=== PATIENT | female | born 1945 | race Caucasian/White ===

== ENCOUNTER 2019-07-08 19:01 | Inpatient (IN) | payer MEDICARE, OTHER ==
[~2019-07-08] VITALS: Ht 167.7 cm; Wt 55.6 kg
[2019-07-08] VITALS (9 sets, daily range): BP systolic 87–97; BP diastolic 34–45
[~2019-07-08 19:01] MED LIST: ATRV10T PO; CARV40CP PO; EST45C VG; ESTR1PAT28 TD; HYDR-707 PO; LSNP20T PO; MTF500T PO; OMEP40CA36 PO; SCR1T1 PO; TRAM50TA2 PO
[2019-07-08] MEDS ORDERED: NS IV 1000 ML 1,000 ML IV PRN (19:10)
--- NOTE | 2019-07-08 19:15 | ED General ---
General Stated Complaint: WEAKNESS Source of Information: Patient, Family, [facility] Records History of Present Illness Date Seen by Provider: Jul 08, 2019 Time Seen by Provider: 19:05 Initial Comments PT ARRIVES VIA EMS FROM [facility] C/O GENERALIZED WEAKNESS/LETHARGY PT REPORTEDLY HAD TEMP OF 102 JUST PRIOR TO ARRIVAL--NOTHING GIVEN FOR FEVER. TEMP WAS REPORTEDLY 99.8 THIS AM BP WAS LOW JUST PRIOR TO ARRIVAL--98/46 ADN 102/50. WAS 112 SYSTOLIC BY EMS, AND IS 104 SYSTOLIC ON ARRIVAL HERE. C/O LOWER BACK PAIN C/O MUCH PAIN ON URINATION [place] [facility] WAS CONTACTED PRIOR TO ARRIVAL AND WAS ADVISED TO SEND TO ER, PT INFORMATION ALSO OBTAINED FROM HER--SHE HAS NOT SEEN PT YET, PT IS A NEW ADMIT TO [facility] AND TO DR. SHAFER OUTPT UA WAS DONE TODAY AND PT HAD 4+ LEUKOCYTES DAUGHTER ARRIVES AND GIVES ADDITIONAL INFORMATION: PT HAD BEEN LIVING AT HOME WITH , AND HAD BEEN IN [facility] UNTIL: 05/30/19--PT ADMITTED TO [facility] FOR THESE SAME COMPLAINTS OF FEVER AND GENERALIZED WEAKNESS, AND WAS FOUND TO HAVE UTI AND TO BE VERY ANEMIC, WORK-UP'S THERE WERE ESSENTIALLY NEGATIVE, AND PT WAS EVENTUALLY TRANSFERRED TO IN [place] FOR FURTHER EVALUATION AND TREATMENT. PT WAS THEN ADMITTED TO [facility] FOR FURTHER RESIDENTIAL, ON DISMISSAL FROM PT'S CONDITION DETERIORATED WHILE AT [facility] AND PT WAS THEN TRANSFERR ED TO [facility] IN [place]. PT WAS DISMISSED FROM [facility] ON Friday07/07/19 AND ADMITTED TO [facility] DAUGHTER STATES THAT PT HAD 5 BLOOD TRANSFUSIONS IN THE LAST MONTH, WITH HER MOST RECENT TRANSFUSION BEING Friday07/03/19 AT [facility] FOR HGB OF 7, PER DAUGHTER. HGB WAS DOWN TO 6.8 AT ONE TIME, PER DAUGHTER. PT HAS HAD 2 BONE MARROW BIOPSIES, WHICH WERE NORMAL, ACCORDING TO DAUGHTER SHE HAD EGD'S AND COLONOSCOPIES WHICH WERE NORMAL, PER DAUGHTER. DAUGHTER STATES THAT PT HAS CONTINUED TO HAVE INTERMITTENT FEVER THROUGHOUT ALL THESE HOSPITALIZATIONS WELL. PT IS ON ELIQUIS AND ASPIRIN FOR ATRIAL FIBRILLATION. PT HAS ONGOING CONSTIPATION AND ONLY HAS A BM EVERY 3-4 DAYS, WHICH WAS WHEN HER LAST BM WAS. NO BLACK/BLOODY/TARRY STOOLS PT DENIES ANY ABDOMINAL PAIN C/O MILD NAUSEA, NO VOMITING DR. SHAFER IS ASSIGNED AT [facility], BUT WAS NOT AN ESTABLISHED PT OF HIS PRIOR TO THE [facility] ADMIT. Allergies and Home Medications Allergies Coded Allergies: Cephalexin Monohydrate (Verified Allergy, Unknown, 07/08/19) Penicillins (Verified Allergy, Unknown, 07/08/19) iodine (Verified Allergy, Unknown, 07/08/19) prednisone (Verified Allergy, Unknown, 07/08/19) venlafaxine HCl (Verified Allergy, Unknown, 07/08/19) Home Medications Atorvastatin Calcium 10 Mg Tablet, 1 EACH PO DAILY, (Reported) Carvedilol Phosphate 40 Mg Cpmp.24hr, 1 EACH PO DAILY, (Reported) Estrogens,Conjugated 45 Gm Tube, 1 GM VG UD, (Reported) Ipratropium/Albuterol Sulfate 3 Ml Ampul.neb, 3 ML IH Q6H PRN for SHORTNESS OF BREATH, (Reported) Patient Home Medication List Home Medication List Reviewed: Yes Review of Systems Review of Systems Constitutional: see HPI, fever, malaise, weakness Respiratory: no symptoms reported; No cough, No short of breath Cardiovascular: no symptoms reported; No chest pain Gastrointestinal: see HPI; No abdominal pain; constipation; No diarrhea, No hematemesis; loss of appetite; No melena; nausea; No vomiting Genitourinary: see HPI, dysuria, other (HAS BEEN TOLD THAT HER BLADDER HAS PROLAPSED AND HAS HAD TO HAVE INTERMITTENT CATHETERS IN THE LAST MONTH. ) Musculoskeletal: see HPI, back pain Psychiatric/Neurological: See HPI (GENERALIZED WEAKNESS); Denies Headache Hematologic/Lymphatic: See HPI, Anemia Past Lvfhojs-Nbytjb-Agblqy Hx Patient Social History Alcohol Use: Denies Use Recreational Drug Use: No Smoking Status: Never a Smoker Past Medical History Surgeries: Yes (EGD'S/COLONOSCOPIES; HIATAL HERNIA REPAIR; BLADDER SURGERY WITH VAGINAL MESH; QUESTIONABLE SURGERY ON MITRAL VALVE) Abdominal, Appendectomy, Bladder Surgery, Cardiac, Gallbladder, Hysterectomy Respiratory: Yes COPD Cardiac: Yes (MITRAL VALVE PROLAPSE--QUESTIONABLE SURGERY ON MITRAL VALVE ( PT AND FAMILY DO NOT KNOW WHAT OR IF SHE HAS ACTUALLY HAD ANY SURGERY ON HER HEART) ) Atrial Fibrillation, Hypertension, Valvular Heart Disease Neurological: No Genitourinary: Yes (BLADDER PROLAPSE--S/P BLADDER SURGERIES WITH VAGINAL MESH) Bladder Infection Gastrointestinal: Yes Gastroesophageal Reflux, Chronic Constipation, Hiatal Hernia Musculoskeletal: No Endocrine: Yes Diabetes, Non-Insulin dep HEENT: No Cancer: No Psychosocial: No Integumentary: No Blood Disorders: Yes (ANEMIA--UNKNOWN CAUSE) Adverse Reaction/Blood Tranf: No YES--5 TRANSFUSIONS IN JUNE 2019 Physical Exam Vital Signs Vital Signs - First Documented Capillary Refill : Height, Weight, BMI Height: '" Weight: lbs. oz. kg; BMI Method:Estimated General Appearance: Thin, Other (LETHARGIC) HEENT: PERRL/EOMI, Normal ENT Inspection, Pharynx Normal, Pale Conjunctivae (L), Pale Conjunctivae (R) Neck: Full Range of Motion, Normal Inspection, Non Tender, Supple Respiratory: Normal Breath Sounds, No Accessory Muscle Use, No Respiratory Distress Cardiovascular: Regular Rate, Rhythm, No Edema, No Gallop, No JVD, Normal Peripheral Pulses, Systolic Murmur (2/6) Gastrointestinal: Soft, Tenderness (MILD SUPRAPUBIC ) Rectal: Other (NO STOOL IN RECTUM, NO GROSS BLOOD IN RECTUM) Back: CVA Tenderness (L), CVA Tenderness (R), Other (DIFFUSE LOWER BACK TENDERNESS) Extremity: Normal Capillary Refill, Normal Range of Motion, Non Tender, No Calf Tenderness, No Pedal Edema Neurologic/Psychiatric: Alert, Oriented x3, No Motor/Sensory Deficits, general counselor II- XII Norm as Tested, Other (LETHARGIC) Skin: Warm/Dry, Pallor; No Rash Focused Exam Lactate Level 07/08/19 19:10: Lactic Acid Level 2.66*H 07/08/19 20:40: Lactic Acid Level 2.64*H Lactic Acid Level Progress/Results/Core Measures Suspected Sepsis SIRS Temperature: Pulse: Respiratory Rate: Laboratory Tests 07/08/19 19:10: White Blood Count 6.9 07/09/19 02:35: White Blood Count 7.2 Blood Pressure / Mean: 07/08/19 19:10: Lactic Acid Level 2.66*H 07/08/19 20:40: Lactic Acid Level 2.64*H Laboratory Tests 07/08/19 19:10: Creatinine 0.80, INR Comment 1.8H, Platelet Count 209, Total Bilirubin 1.0 07/09/19 02:35: Creatinine 0.67, Platelet Count 196, Total Bilirubin 1.2H Results/Orders Lab Results Laboratory Tests Test 07/08/19 19:10 07/08/19 19:18 07/08/19 20:40 07/09/19 02:35 Range/Units White Blood Count 6.9 7.2 4.3-11.0 10^3/uL Red Blood Count 2.65 L 3.03 L 4.35-5.85 10^6/uL Hemoglobin 7.1 L 8.3 L 11.5-16.0 G/DL Hematocrit 23 L 26 L 35-52 % Mean Corpuscular Volume 86 87 80-99 FL Mean Corpuscular Hemoglobin 27 27 25-34 PG Mean Corpuscular Hemoglobin Concent 31 L 32 32-36 G/DL Red Cell Distribution Width 17.7 H 17.1 H 10.0-14.5 % Platelet Count 209 196 130-400 10^3/uL Mean Platelet Volume 10.1 9.8 7.4-10.4 FL Neutrophils (%) (Auto) 74 80 H 42-75 % Lymphocytes (%) (Auto) 8 L 8 L 12-44 % Monocytes (%) (Auto) 18 H 12 0-12 % Eosinophils (%) (Auto) 0 0 0-10 % Basophils (%) (Auto) 0 0 0-10 % Neutrophils # (Auto) 5.1 5.8 1.8-7.8 X 10^3 Lymphocytes # (Auto) 0.5 L 0.6 L 1.0-4.0 X 10^3 Monocytes # (Auto) 1.3 H 0.9 0.0-1.0 X 10^3 Eosinophils # (Auto) 0.0 0.0 0.0-0.3 10^3/uL Basophils # (Auto) 0.0 0.0 0.0-0.1 10^3/uL Neutrophils % (Manual) 64 % Lymphocytes % (Manual) 6 % Monocytes % (Manual) 14 % Band Neutrophils 16 % Toxic Granulation 1+ Blood Morphology Comment NORMAL Prothrombin Time 22.1 H 12.2-14.7 SEC INR Comment 1.8 H 0.8-1.4 Activated Partial Thromboplast Time 56 H 24-35 SEC Sodium Level 132 L 138 135-145 MMOL/L Potassium Level 3.7 3.4 L 3.6-5.0 MMOL/L Chloride Level 97 L 103 98-107 MMOL/L Carbon Dioxide Level 26 26 21-32 MMOL/L Anion Gap 9 9 5-14 MMOL/L Blood Urea Nitrogen 19 H 15 7-18 MG/DL Creatinine 0.80 0.67 0.60-1.30 MG/DL Estimat Glomerular Filtration Rate > 60 > 60 BUN/Creatinine Ratio 24 22 Glucose Level 164 H 109 H 70-105 MG/DL Glucometer 183 H 70-110 MG/DL Lactic Acid Level 2.66 *H 2.64 *H 0.50-2.00 MMOL/L Calcium Level 7.7 L 7.7 L 8.5-10.1 MG/DL Corrected Calcium 9.1 9.1 8.5-10.1 MG/DL Magnesium Level 1.5 L 1.8 1.6-2.4 MG/DL Total Bilirubin 1.0 1.2 H 0.1-1.0 MG/DL Aspartate Amino Transf (AST/SGOT) 30 28 5-34 U/L Alanine Aminotransferase (ALT/SGPT) 13 10 0-55 U/L Alkaline Phosphatase 92 91 40-136 U/L Ammonia 34 H 11-32 UMOL/L Total Creatine Kinase 34 29-168 U/L Creatine Kinase MB 0.2 <6.6 NG/ML Myoglobin 48.4 10.0-92.0 NG/ML Troponin I < 0.028 <0.028 NG/ML B-Type Natriuretic Peptide 42.9 <100.0 PG/ML Total Protein 5.2 L 5.1 L 6.4-8.2 GM/DL Albumin 2.2 L 2.2 L 3.2-4.5 GM/DL Amylase Level 25 25-125 U/L Lipase 16 8-78 U/L TSH [place] Testing 1.00 0.35-4.94 UIU/ML Urine Color YELLOW Urine Clarity CLEAR Urine pH >=9.0 5-9 Urine Specific [place] <=1.005 1.016-1.022 Urine Protein 1+ H NEGATIVE Urine Glucose (UA) NEGATIVE NEGATIVE Urine Ketones NEGATIVE NEGATIVE Urine Nitrite POSITIVE NEGATIVE Urine Bilirubin NEGATIVE NEGATIVE Urine Urobilinogen 1.0 < = 1.0 MG/DL Urine Leukocyte Esterase 1+ H NEGATIVE Urine RBC (Auto) 1+ H NEGATIVE Urine RBC NONE /HPF Urine WBC 25-50 H /HPF Urine Crystals PRESENT H /LPF Urine Amorphous Sediment MOD HAJA PHOSPHATE H /LPF Urine Bacteria LARGE H /HPF Urine Casts NONE /LPF Urine Mucus NEGATIVE /LPF Urine Culture Indicated YES Absolute Reticulocyte Count 81 24-90 10e9/L Percent Reticulocyte Count 2.68 H 0.50-2.40 % Micro Results Microbiology 07/08/19 Influenza Types A,B Antigen ([facility]) - Final, Complete My Orders Orders - ZAKI RUSH DO Accucheck Stat ONCE (07/08/19 19:10) Ed Iv/Invasive Line Start (07/08/19 19:10) Ekg Tracing (07/08/19 19:10) Catheter(Urinary) Insert & Ass 03,15 (07/08/19 19:10) O2 (07/08/19 19:10) Monitor-Rhythm Ecg Trace Only (07/08/19 19:10) Chest 1 View, Ap/Pa Only (07/08/19 19:10) Ammonia (07/08/19 19:10) Amylase (07/08/19 19:10) BNP (07/08/19 19:10) Cbc With Automated Diff (07/08/19 19:10) Comprehensive Metabolic Panel (07/08/19 19:10) Creatine Kinase (07/08/19 19:10) Creatine Kinase Mb (07/08/19 19:10) Lactic Acid Analyzer (07/08/19 19:10) Lipase (07/08/19 19:10) Magnesium (07/08/19 19:10) Protime With Inr (07/08/19 19:10) Partial Thromboplastin Time (07/08/19 19:10) Thyroid Analyzer (07/08/19 19:10) Ua Culture If Indicated (07/08/19 19:10) Blood Culture (07/08/19 19:10) Influenza A And B Antigens (07/08/19 19:10) Myoglobin Serum (07/08/19 19:10) Troponin I (07/08/19 19:10) Ed Iv/Invasive Line Start (07/08/19 19:10) Ns Iv 1000 Ml (Sodium Chloride 0.9%) (07/08/19 19:10) Manual Differential (07/08/19 19:10) Urine Culture (07/08/19 19:18) Levofloxacin 500 Mg/100 Ml Iv (Levaquin (07/08/19 20:00) Magnesium 1 Gm/100 Ml Ivpb (Magnesium Fitzpatrick (07/08/19 20:00) Red Cells Leukocytes Reduced (07/08/19 20:20) Type And Screen (07/08/19 20:20) Ns Iv 1000 Ml (Sodium Chloride 0.9%) (07/08/19 20:38) Medications Given in ED Current Medications Medications Dose Ordered Sig/Dino Route Start Time Stop Time Status Last Admin Dose Admin Levofloxacin/ Dextrose 100 ml @ 100 mls/hr ONCE ONCE IV 07/08/19 20:00 07/08/19 20:59 DC 07/08/19 20:10 100 MLS/HR Magnesium Sulfate/ Dextrose 100 ml @ 100 mls/hr ONCE ONCE IV 07/08/19 20:00 07/08/19 20:59 DC 07/08/19 20:10 100 MLS/HR Sodium Chloride 1,000 ml @ 0 mls/hr Q0M PRN IV 07/08/19 19:10 07/08/19 21:38 DC 07/08/19 19:30 0 MLS/HR Vital Signs/I&O 07/08/19 07/08/19 07/08/19 07/08/19 19:01 19:01 19:46 21:21 Temp 36.7 36.7 36.8 Pulse 98 90 86 Resp 22 24 24 B/P (MAP) 104/40 (61) 97/37 101/36 (57) Pulse Ox 96 96 96 96 O2 Delivery Room Air Room Air Room Air Room Air 07/08/19 07/08/19 07/08/19 07/08/19 21:38 21:45 22:00 22:01 Temp 36.4 36.4 Pulse 82 80 78 77 Resp 23 21 21 B/P (MAP) 97/45 (62) 95/43 (60) 95/43 Pulse Ox 96 96 96 O2 Delivery Room Air Room Air Room Air 07/08/19 07/08/19 07/08/19 07/08/19 22:14 22:15 22:15 22:16 Temp 36.4 36.6 Pulse 77 79 80 Resp 21 16 18 B/P (MAP) 97/45 95/41 (59) 95/41 Pulse Ox 95 96 96 O2 Delivery Room Air Room Air Room Air Room Air 07/08/19 07/08/19 07/08/19 07/09/19 22:30 23:00 23:30 00:00 Pulse 78 77 75 73 Resp 20 20 19 19 B/P (MAP) 87/34 (51) 97/40 (59) 96/41 (59) 114/44 (67) Pulse Ox 95 94 98 98 O2 Delivery Room Air Room Air Room Air Room Air 07/09/19 07/09/19 07/09/19 07/09/19 00:00 00:00 00:00 01:00 Temp 36.6 36.2 Pulse 74 O2 Delivery Room Air 07/09/19 07/09/19 07/09/19 07/09/19 01:00 01:30 02:00 02:39 Temp 36.0 36.6 Pulse 72 81 77 81 Resp 19 13 20 20 B/P (MAP) 107/41 (63) 120/44 138/54 (82) 132/70 Pulse Ox 96 95 96 O2 Delivery Room Air Room Air Room Air Room Air 07/09/19 07/09/19 07/09/19 07/09/19 02:54 03:00 04:00 04:00 Temp 36.8 37.5 Pulse 88 85 87 Resp 20 21 19 B/P (MAP) 148/58 154/56 (88) 159/67 (97) Pulse Ox 92 92 92 O2 Delivery Room Air Room Air Room Air 07/09/19 07/09/19 07/09/19 07/09/19 04:00 05:00 05:49 06:00 Temp 37.5 Pulse 93 100 101 Resp 23 20 13 B/P (MAP) 142/46 (78) 138/47 146/46 (79) Pulse Ox 93 93 O2 Delivery Room Air Room Air Room Air Room Air 07/09/19 00:00 Intake Total 1000 ml Balance 1000 ml Capillary Refill : Progress Note : Progress Note NO DETERIORATION IN PT'S CONDITION DURING ER STAY ECG Initial ECG Impression Date: Jul 08, 2019 Initial ECG Impression Time: 19:04 Initial ECG Rate: 96 Initial ECG Rhythm: Normal Sinus Diagnostic Imaging Comments CXR--RLL INFILTRATE, PER RADIOLOGIST REPORT Reviewed: Reviewed by Me Departure Communication (Admissions) 2029--SPOKE WITH DR. FLOYD, HOSPITALIST. ACCEPTS PT FOR ADMIT. WILL CONSULT CARDIOLOGY AND HEM-ONC IN AM Impression Primary Impression: Severe anemia Additional Impressions: UTI (urinary tract infection) Generalized weakness Electrolyte imbalance NIDDM CHRONIC ATRIAL FIBRILLATION ON ELIQUIS AND ASPIRIN Lactic acidosis Hypomagnesemia Hypocalcemia RLL pneumonia Disposition: 09 ADMITTED INPATIENT Condition: Stable Admissions Decision to Admit Reason: Admit from ER (General) Decision to Admit/Date: Jul 08, 2019 Time/Decision to Admit Time: 20:30 Departure-Patient Inst. Referrals: NO,LOCAL PHYSICIAN (PCP/Family) Primary Care Physician ZAKI RUSH DO Jul 08, 2019 19:15 POS
[2019-07-08 19:26] LABS: BILIRUBIN,URINE NEGATIVE (NEGATIVE); CLARITY,URINE CLEAR; COLOR,URINE YELLOW; GLUCOSE, URINE (UA) NEGATIVE (NEGATIVE); KETONES,URINE NEGATIVE (NEGATIVE); LEUKOCYTE ESTERASE ,URINE 1+ (NEGATIVE); NITRITE,URINE POSITIVE (NEGATIVE); PH,URINE >=9.0 (5-9); PROTEIN,URINE 1+ (NEGATIVE)
[2019-07-08 19:28] LABS: BASOPHILS % (AUTO) 0 % (0-10); EOSINOPHILS % (AUTO) 0 % (0-10); HEMATOCRIT 23 % (35-52); HEMOGLOBIN 7.1 G/DL (11.5-16.0); LYMPHOCYTES # (AUTO) 0.5 X 10^3 (1.0-4.0); LYMPHOCYTES % (AUTO) 8 % (12-44); MEAN CORPUSCULAR HEMOGLOBIN 27 PG (25-34); MEAN CORPUSCULAR HGB CONC 31 G/DL (32-36); MEAN CORPUSCULAR VOLUME 86 FL (80-99); MEAN PLATELET VOLUME 10.1 FL (7.4-10.4); MONOCYTES # (AUTO) 1.3 X 10^3 (0.0-1.0); MONOCYTES % (AUTO) 18 % (0-12); NEUTROPHILS # (AUTO) 5.1 X 10^3 (1.8-7.8); NEUTROPHILS % (AUTO) 74 % (42-75); PLATELET COUNT 209 10^3/uL (130-400); RED CELL DISTRIBUTION WIDTH 17.7 % (10.0-14.5); WHITE BLOOD COUNT 6.9 10^3/uL (4.3-11.0)
[2019-07-08 19:42] LABS: INR 1.8 (0.8-1.4); PROTHROMBIN TIME PATIENT 22.1 SEC (12.2-14.7)
[2019-07-08 19:47] LABS: AMORPHOUS SEDIMENT,UR MOD AMOR PHOSPHATE /LPF; BACTERIA,URINE LARGE /HPF; WBC,URINE 25-50 /HPF
[2019-07-08 19:53] LABS: ALANINE AMINOTRANSFERASE 13 U/L (0-55); ALBUMIN 2.2 GM/DL (3.2-4.5); ALKALINE PHOSPHATASE 92 U/L (40-136); AMMONIA 34 UMOL/L (11-32); AMYLASE 25 U/L (25-125); BUN/CREATININE RATIO 24; CALCIUM 7.7 MG/DL (8.5-10.1); CARBON DIOXIDE 26 MMOL/L (21-32); CHLORIDE 97 MMOL/L (98-107); CREATINE KINASE 34 U/L (29-168); GFR ESTIMATED > 60; GLUCOSE 164 MG/DL (70-105); LIPASE 16 U/L (8-78); MAGNESIUM 1.5 MG/DL (1.6-2.4); POTASSIUM 3.7 MMOL/L (3.6-5.0); SODIUM 132 MMOL/L (135-145); TOTAL PROTEIN 5.2 GM/DL (6.4-8.2)
--- NOTE | 2019-07-08 19:57 | Diagnostic Imaging Report ---
INDICATION: Generalized weakness, lethargy, hypertension. COMPARISON STUDY: Chest from 2012. FINDINGS: Frontal view of the chest demonstrates the lungs to be clear. There is mild infiltrate in the lateral right lung base. Heart size and vascularity are normal. There are no pleural effusions. Postoperative changes are present in the cervical spine. IMPRESSION: There are mild infiltrates in the right lateral lung base. Dictated by: Dictated on workstation # [id number]
[2019-07-08] MEDS ORDERED: METF500T8 (20:00)
[2019-07-08] MEDS ORDERED: CALC1TAB94 (20:00)
[2019-07-08] MEDS ORDERED: FERR325T18 PO (20:00)
[2019-07-08] MEDS ORDERED: FLEC100T PO (20:00)
[2019-07-08] MEDS ORDERED: LEVOFLOXACIN 500 MG/100 ML IV 100 ML IV ONE (20:00)
[2019-07-08] MEDS ORDERED: IPRA3AMP31 NEB (20:00)
[2019-07-08] MEDS ORDERED: MAGNESIUM 1 GM/100 ML IVPB 100 ML IV ONE (20:00)
[2019-07-08] MEDS ORDERED: SENN-36 (20:00)
[2019-07-08] MEDS ORDERED: APIX5TAB PO (20:00)
[2019-07-08] MEDS ORDERED: PANT40TA3 PO (20:00)
[2019-07-08] MEDS ORDERED: FURO20TA4 PO (20:00)
[2019-07-08] MEDS ORDERED: ASPI-586 PO (20:00)
[2019-07-08 20:04] LABS: BAND NEUTROPHILS 16 %; LYMPHOCYTES % (MANUAL) 6 %; NEUTROPHILS % (MANUAL) 64 %
[2019-07-08 20:05] LABS: MONOCYTES % (MANUAL) 14 %; RBC MORPH NORMAL; TOXIC GRANULATION/VACUOLAZATIO 1+
[2019-07-08 20:13] LABS: CREATINE KINASE MB 0.2 NG/ML (<6.6)
[2019-07-08] MEDS ORDERED: NS IV 1000 ML 1,000 ML IV SCH (20:38)
[2019-07-08] MEDS ORDERED: ONDANSETRON 4 MG/2 ML (SDV) Z0FRAN IV PRN (21:45)
[2019-07-08] MEDS: NS IV 1000 ML 1,000 ML IV SCH (22:00)
[2019-07-09] VITALS (15 sets, daily range): BP systolic 107–159; BP diastolic 41–76
[2019-07-09] MEDS: PANTOPRAZOLE 40 MG (PROTONIX) VIAL IV SCH ×2 (01:49→09:10)
[2019-07-09 03:09] LABS: ABSOLUTE RETIC # 81 10e9/L (24-90); BASOPHILS % (AUTO) 0 % (0-10); EOSINOPHILS % (AUTO) 0 % (0-10); HEMATOCRIT 26 % (35-52); HEMOGLOBIN 8.3 G/DL (11.5-16.0); LYMPHOCYTES # (AUTO) 0.6 X 10^3 (1.0-4.0); LYMPHOCYTES % (AUTO) 8 % (12-44); MEAN CORPUSCULAR HEMOGLOBIN 27 PG (25-34); MEAN CORPUSCULAR HGB CONC 32 G/DL (32-36); MEAN CORPUSCULAR VOLUME 87 FL (80-99); MEAN PLATELET VOLUME 9.8 FL (7.4-10.4); MONOCYTES # (AUTO) 0.9 X 10^3 (0.0-1.0); MONOCYTES % (AUTO) 12 % (0-12); NEUTROPHILS # (AUTO) 5.8 X 10^3 (1.8-7.8); NEUTROPHILS % (AUTO) 80 % (42-75); PLATELET COUNT 196 10^3/uL (130-400); RED CELL DISTRIBUTION WIDTH 17.1 % (10.0-14.5); RETICULOCYTE % 2.68 % (0.50-2.40); WHITE BLOOD COUNT 7.2 10^3/uL (4.3-11.0)
[2019-07-09 03:30] LABS: ALANINE AMINOTRANSFERASE 10 U/L (0-55); ALBUMIN 2.2 GM/DL (3.2-4.5); ALKALINE PHOSPHATASE 91 U/L (40-136); BILIRUBIN,TOTAL 1.2 MG/DL (0.1-1.0); BUN/CREATININE RATIO 22; CALCIUM 7.7 MG/DL (8.5-10.1); CARBON DIOXIDE 26 MMOL/L (21-32); CHLORIDE 103 MMOL/L (98-107); CREATININE SERUM 0.67 MG/DL (0.60-1.30); GFR ESTIMATED > 60; GLUCOSE 109 MG/DL (70-105); MAGNESIUM 1.8 MG/DL (1.6-2.4); POTASSIUM 3.4 MMOL/L (3.6-5.0); SODIUM 138 MMOL/L (135-145); TOTAL PROTEIN 5.1 GM/DL (6.4-8.2)
[2019-07-09] MEDS: inSUlin ASPART (NovoLOG) 1 UNIT/0.01 ML (CHARGE PER UNIT) SC SCH ×4 (05:56→20:56)
[2019-07-09] MEDS: NS IV 1000 ML 1,000 ML IV SCH ×3 (07:28→21:06)
--- NOTE | 2019-07-09 08:00 | History & Physical-Hospitalist ---
History of Present Illness HPI/Chief Complaint Pt is 74yoCF with an extensive past medical history with multiple recent hospitalizations at different hospitals who presented to the ER due to lethargy, fever, and hypotension. When asked what brought her to the hospital she states "everything shut down 3 months ago" and then asked me to review her records. Unfortunately none of her previous hospitalizations have been here but she is agreeable to send records requests from these other hospitals. She did states she has had severe anemia with no cause identified and required multiple transfusions she also states she had burning with urination starting yesterday. Otherwise she was not able to provide much history. Review of ER notes shows she was in good health until May of this year when she was admitted to [facility] in [place] for sepsis and anemia. She was transferred from there to [facility] and reported had negative bone marrow biopsies x2 and EGD/colonoscopies. She was then transferred to [facility] in [place] and had more workup that was negative. S he was discharged from there to [facility] on 07/07 and developed fevers and dysuria yesterday prompting evaluation in the ER last night. She was found to have a recurrent UTI, lactic acidosis but was not febrile here. She was admitted to cardiac stepdown for further evaluation. Source: patient Date Seen 07/09/19 Time Seen by a Provider: 07:53 Attending Physician Aakash Santos MD PCP No,Local Physician Referring Physician Date of Admission Jul 08, 2019 at 20:30 Home Medications & Allergies Home Medications Reviewed patient Home Medication Reconciliation performed by pharmacy medication reconciliations outer diameter technician and/or nursing. Patients Allergies have been reviewed. Allergies Allergies Coded Allergies Cephalexin Monohydrate (Verified Allergy, Unknown, 07/08/19) Penicillins (Verified Allergy, Unknown, 07/08/19) iodine (Verified Allergy, Unknown, 07/08/19) prednisone (Verified Allergy, Unknown, 07/08/19) venlafaxine HCl (Verified Allergy, Unknown, 07/08/19) Past Eyvfiwo-Esduez-Zdvjwf Hx Past Med/Social Hx: Reviewed Nursing Past Med/Soc Hx Patient Social History Employed/Student: retired Alcohol Use: Denies Use Recreational Drug Use: No Smoking Status: Never a Smoker 2nd Hand Smoke Exposure: No Recent Foreign Travel: No Contact w/other who traveled: No Recent Hopitalizations: No Recent Infectious Disease Expo: No Immunizations Up To Date Tetanus Booster (TDap): Unknown Date of Pneumonia Vaccine: May 03, 2009 Date of Influenza Vaccine: May 25, 2019 Seasonal Allergies Seasonal Allergies: Yes Past Medical History Surgeries: Abdominal, Appendectomy, Bladder Surgery, Cardiac, Gallbladder, Hysterectomy Cardiac: Atrial Fibrillation, Hypertension, Valvular Heart Disease : No Menopausal Genitourinary: Bladder Infection Gastrointestinal: Gastroesophageal Reflux, Chronic Constipation, Hiatal Hernia Musculoskeletal: Rheumatoid Arthritis Endocrine: Diabetes, Non-Insulin dep Psychosocial: Anxiety, Depression History of Blood Disorders: Yes (ANEMIA--UNKNOWN CAUSE) Adverse Reaction to Blood Ellis: No Family History Reviewed Nursing Family Hx No Pertinent Family Hx Review of Systems Constitutional: fever, malaise, weakness EENTM: no symptoms reported Respiratory: No cough, No short of breath Cardiovascular: No chest pain, No palpitations Gastrointestinal: No abdominal pain, No nausea, No vomiting Genitourinary: dysuria, frequency Musculoskeletal: no symptoms reported Skin: no symptoms reported Psychiatric/Neurological: No Symptoms Reported Physical Exam Physical Exam Vital Signs Vital Signs - First Documented Capillary Refill : Less Than 3 Seconds Height, Weight, BMI Height: '" Weight: lbs. oz. kg; 19.77 BMI Method:Estimated General Appearance: No Apparent Distress, Chronically ill, Thin HEENT: PERRL/EOMI, Moist Mucous Membranes; No Scleral Icterus (L), No Scleral Icterus (R) Neck: Normal Inspection, Supple Respiratory: Lungs Clear, No Respiratory Distress Cardiovascular: Regular Rate, Rhythm, No Murmur Gastrointestinal: Normal Bowel Sounds, Soft Extremity: Normal Capillary Refill, No Calf Tenderness Neurologic/Psychiatric: Alert, Oriented x3; No Aphasia; Depressed Affect; No Facial Droop Skin: Warm/Dry, Other (erythema on cheeks) Results Results/Procedures Labs Laboratory Tests 07/10/19 02:52 07/11/19 03:15 Patient resulted labs reviewed. Imaging: Reviewed Imaging Report Assessment/Plan Admission Diagnosis Severe Sepsis Admission Status: Inpatient Order (span 2 midnights) Reason for Inpatient Admission: sepsis, need IV abx Assessment and Plan Severe Sepsis- present on arrival RLL PNA UTI Febrile and tachycardiac at facility Lactic acidosis qualifies for severe sepsis UA concerning for UTi and CXR reveals RLL pna Continue Levaquin Await cultures Normocytic Anemic Stable at this time around 8 Requests records Heme/Onc consulted If not done at OSH consulted tagged rbc or capsule endoscopy FOBT, iron studies paroxysmal Atrial Fibrillation Discussed risks and benefits of continued anticoagulation due profound anemia Will hold at this time, patient expressed understanding of increased risk of stroke without OAC at this time and agreed Cardiology consulted, appreciate recs Hypokalemia Hypomagnesemia Replace per protocol End of Life Counseling When asked about code status patient states her daughter would like her to be a full code but she would rather be a DNR I asked permission to change her code status in the computer but she declined stating it's a "touchy subject" When daughter arrives advised to discuss with daughter regarding her wishes States she has advance directive on file at [facility], will request Diagnosis/Problems Diagnosis/Problems (1) Severe sepsis Status: Acute (2) Severe anemia Status: Acute (3) RLL pneumonia Status: Acute Qualifiers: Pneumonia type: due to unspecified organism Qualified Codes: J18.1 - Lobar pneumonia, unspecified organism (4) UTI (urinary tract infection) Status: Acute Qualifiers: Urinary tract infection type: acute cystitis Hematuria presence: without hematuria Qualified Codes: N30.00 - Acute cystitis without hematuria (5) Electrolyte imbalance Status: Acute (6) Generalized weakness Status: Acute (7) Lactic acidosis Status: Acute Clinical Quality Measures DVT/VTE Risk/Contraindication: Risk Factor Score Per Nursin RFS Level Per Nursing on Admit: 4+=Very High ODELL JOHNSON MD Jul 09, 2019 08:00 POS
--- NOTE | 2019-07-09 08:11 | Pulmonary Consultation ---
History of Present Illness History of Present Illness Date of Consultation 07/09/19 08:06 Time Seen by Provider: 08:06 Date of Admission History of Present Illness 74yo with hx of multiple hospitalizations, anemia, multiple transfusions presented to ED from [facility] secondary to worsening fever, dysuria, lethargy and hypotension. She was found to have a UTI upon admission. diana cultures are p ending. She was recently admitted to [facility] in [place] for sepsis. I am consulted for ICU management. Allergies and Home Medications Allergies Coded Allergies: Cephalexin Monohydrate (Verified Allergy, Unknown, 07/08/19) Penicillins (Verified Allergy, Unknown, 07/08/19) iodine (Verified Allergy, Unknown, 07/08/19) prednisone (Verified Allergy, Unknown, 07/08/19) venlafaxine HCl (Verified Allergy, Unknown, 07/08/19) Home Medications Atorvastatin Calcium 10 Mg Tablet, 1 EACH PO DAILY, (Reported) Carvedilol Phosphate 40 Mg Cpmp.24hr, 1 EACH PO DAILY, (Reported) Estrogens,Conjugated 45 Gm Tube, 1 GM VG UD, (Reported) Ipratropium/Albuterol Sulfate 3 Ml Ampul.neb, 3 ML IH Q6H PRN for SHORTNESS OF B REATH, (Reported) Past Dfkmefx-Pnlchn-Pxdbzp Hx Patient Social History Alcohol Use: Denies Use Recreational Drug Use: No Smoking Status: Never a Smoker 2nd Hand Smoke Exposure: No Recent Foreign Travel: No Contact w/Someone Who Travel: No Recent Infectious Disease Expo: No Recent Hopitalizations: No Physical Abuse: No Sexual Abuse: No Mistreated: No Fear: No Immunizations Up To Date Tetanus Booster (TDap): Unknown Date of Pneumonia Vaccine: May 03, 2009 Date of Influenza Vaccine: May 25, 2019 Seasonal Allergies Seasonal Allergies: Yes Past Medical History Surgeries: Yes (EGD'S/COLONOSCOPIES; HIATAL HERNIA REPAIR; BLADDER SURGERY WITH VAGINAL MESH; QUESTIONABLE SURGERY ON MITRAL VALVE) Abdominal, Appendectomy, Bladder Surgery, Cardiac, Gallbladder, Hysterectomy Respiratory: Yes COPD Cardiac: Yes (MITRAL VALVE PROLAPSE--QUESTIONABLE SURGERY ON MITRAL VALVE ( PT AND FAMILY DO NOT KNOW WHAT OR IF SHE HAS ACTUALLY HAD ANY SURGERY ON HER HEART) ) Atrial Fibrillation, Hypertension, Valvular Heart Disease Neurological: No : 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 oz. kg; 19.77 BMI Method:Estimated Exam Exam Vital Signs Date Time Temp Pulse Resp B/P (MAP) Pulse Ox O2 Delivery O2 Flow Rate FiO2 07/09/19 06:49 107 07/09/19 06:00 101 13 146/46 (79) 93 Room Air 07/09/19 05:49 37.5 100 20 138/47 Room Air 07/09/19 05:00 93 23 142/46 (78) 93 Room Air 07/09/19 04:00 Room Air 07/09/19 04:00 37.5 07/09/19 04:00 87 19 159/67 (97) 92 Room Air 07/09/19 03:00 85 21 154/56 (88) 92 Room Air 07/09/19 02:54 36.8 88 20 148/58 92 Room Air 07/09/19 02:39 36.6 81 20 132/70 Room Air 07/09/19 02:00 77 20 138/54 (82) 96 Room Air 07/09/19 01:30 36.0 81 13 120/44 95 Room Air 07/09/19 01:00 72 19 107/41 (63) 96 Room Air 07/09/19 01:00 74 07/09/19 00:00 Room Air 07/09/19 00:00 36.2 07/09/19 00:00 36.6 07/09/19 00:00 73 19 114/44 (67) 98 Room Air 07/08/19 23:30 75 19 96/41 (59) 98 Room Air 07/08/19 23:00 77 20 97/40 (59) 94 Room Air 07/08/19 22:30 78 20 87/34 (51) 95 Room Air 07/08/19 22:16 36.6 80 18 95/41 96 Room Air 07/08/19 22:15 Room Air 07/08/19 22:15 79 16 95/41 (59) 96 Room Air 07/08/19 22:14 36.4 77 21 97/45 95 Room Air 07/08/19 22:01 36.4 77 21 95/43 96 Room Air 07/08/19 22:00 78 21 95/43 (60) 96 Room Air 07/08/19 21:45 36.4 80 23 97/45 (62) 96 Room Air 07/08/19 21:38 82 07/08/19 21:21 36.8 86 24 101/36 (57) 96 Room Air 07/08/19 19:46 36.7 90 24 97/37 96 Room Air 07/08/19 19:01 96 Room Air 07/08/19 19:01 36.7 98 22 104/40 (61) 96 Room Air I & O0 07/09/19 07:00 Intake Total 2250 ml Output Total 750 ml Balance 1500 ml Height & Weight Height: '" Weight: lbs. oz. kg; 19.77 BMI Method:Estimated General Appearance: Thin, Other (LETHARGIC) HEENT: PERRL/EOMI, Normal ENT Inspection, Pharynx Normal, Pale Conjunctivae (L), Pale Conjunctivae (R) Neck: Full Range of Motion, Normal Inspection, Non Tender, Supple Respiratory: Normal Breath Sounds, No Accessory Muscle Use, No Respiratory Distress Cardiovascular: Regular Rate, Rhythm, No Edema, No Gallop, No JVD, Normal Peripheral Pulses, Systolic Murmur (2/6) Capillary Refill: Less Than 3 Seconds Extremity: Normal Capillary Refill, Normal Range of Motion, Non Tender, No Calf Tenderness, No Pedal Edema Neurologic/Psychiatric: Alert, Oriented x3, No Motor/Sensory Deficits, fish icer II- XII Norm as Tested, Other (LETHARGIC) Skin: Warm/Dry, Pallor; No Rash Results Lab Laboratory Tests 07/08/19 19:10 07/09/19 02:35 Assessment/Plan Assessment/Plan Pneumonia with atelectasis Metabolic lactic acidosis -IVF Hypokalemia -replace UTI -Continue Levaquin - Anemia Chronic afib NIDDM HARLEY GAMA DO Jul 09, 2019 08:11 POS
[2019-07-09] MEDS ORDERED: POTASSIUM CL 10MEQ/50ML IVPB 50 ML IV SCH (08:15)
--- NOTE | 2019-07-09 08:47 | NUR ---
THIS NURSE SPOKE WITH DR. GAMA AT THIS TIME REGARDING DVT PROPHYLAXIS MEDICATION, MEDICATION IS CONTRAINDICATED AT THIS TIME PATIENT IS CHRONICALLY ANEMIC, PATIENT CURRENTLY HAS SCD'S ON AT THIS TIME.
[2019-07-09] MEDS ORDERED: MIRT15TA6 PO (09:01)
[2019-07-09] MEDS ORDERED: CITA10TA12 PO (09:01)
[2019-07-09] MEDS ORDERED: BUDE0.5A7 NEB (09:10)
[2019-07-09] MEDS ORDERED: POLY17PO6 PO (09:10)
[2019-07-09] MEDS ORDERED: BETA1TAB15 PO (09:10)
[2019-07-09] MEDS ORDERED: NFESTCO.45 PO (09:10)
[2019-07-09] MEDS ORDERED: CHOL5000 PO (09:10)
[2019-07-09] MEDS ORDERED: METF-397 PO (09:10)
[2019-07-09] MEDS ORDERED: ACET325T38 PO (09:10)
[2019-07-09] MEDS ORDERED: SENN-233 PO (09:10)
[2019-07-09] MEDS ORDERED: CARV6.25 PO (09:10)
[2019-07-09] MEDS ORDERED: ATOR20TA66 PO (09:10)
[2019-07-09] MEDS ORDERED: CALC-6 PO (09:10)
--- NOTE | 2019-07-09 09:13 | NUR ---
UPDATED MED REC WITH MAR FROM [facility].
[2019-07-09] MEDS ORDERED: KCL 20 MEQ TAB (K-DUR) PO ONE (09:15)
--- NOTE | 2019-07-09 10:16 | Occupational Therapy Eval ---
OT Evaluation-General/PLF Medical Diagnosis Admission Date Jul 08, 2019 at 20:30 Medical Diagnosis: severe sepsis, severe anemia, pneumonia, UTI Onset Date: Jul 08, 2019 Therapy Diagnosis Therapy Diagnosis: impaired ADLs and functional mobility Precautions Precautions/Isolations: Fall Prevention, Standard Precautions Safety Interventions: None Referral Physician: Kathryn Referral Reason: Activity Tolerance, Self Care, Evaluation/Treatment, Strengthening/ROM Medical History Pertinent Medical History: HTN Additional Medical History anemia Current History Per H&P: "Pt is 74yoCF with an extensive past medical history with multiple recent hospitalizations at different hospitals who presented to the ER due to lethargy, fever, and hypotension. When asked what brought her to the hospital she states "everything shut down 3 months ago" and then asked me to review her records. Unfortunately none of her previous hospitalizations have been here but she is agreeable to send records requests from these other hospitals. She did states she has had severe anemia with no cause identified and required multiple transfusions she also states she had burning with urination starting yesterday. Otherwise she was not able to provide much history. Review of ER notes shows she was in good health until May of this year when she was admitted to [facility] for sepsis and anemia. She was transferred from there to [facility] and reported had negative bone marrow biopsies x2 and EGD/colonoscopies. She was then transferred to [facility] in [place] and had more workup that was negative. She was discharged from there to [facility] on 07/07 and developed fevers and dysuria yesterday prompting evaluation in the ER last night. She was found to have a recurrent UTI, lactic acidosis but was not febrile here. She was admitted to cardiac stepdown for further evaluation." Upon further chart review it was found that pt's daughter provided the following information: Pt admitted to [facility] 05/30/19 with complaints of fever and generalized weakness, found to have UTI and very anemic. Pt eventually transferred to for further evaluation/tx, then admitted to [facility] [place] [facility]. Pt's condition deteriorated while at [facility], and pt transferred to [facility] in [place]. Pt dismissed from [facility] 07/07/19 and admitted to [facility]. On 07/08/19, pt admitted to [facility]. Social History Home: [facility] ([facility]) Prior to hospitalization in May, pt was living at home with her in a one story house, 3 steps with railing to enter home. Pt admitted to [facility] on 07/07/19, before being admitted to the hospital on 07/08/19. ADL-Prior Level of Function SCALE: Activities may be completed with or without assistive devices. 6-Vifnoqrsxd-bvpvpin completes the activity by him/herself with no assistance from a helper. 5-Set-up or Clean-up Assistance-helper sets up or cleans up; patient completes activity. [place] assists only prior to or following the activity. 4-Supervision or Touching Assistance-helper provides verbal cues and/or touching/steadying and/or contact guard assistance as patient completes activity. Assistance may be provided throughout the activity or intermittently. 3-Partial/Moderate Assistance-helper does LESS THAN HALF the effort. [place] lifts, holds or supports trunk or limbs, but provides less than half the effort. 2-Substantial/Maximal Assistance-helper does MORE THAN HALF the effort. [place] lifts or holds trunk or limbs and provides more than half the effort. 2-Pddpimkoo-kdzbts does ALL the effort. Patient does none of the effort to complete the activity. Or, the assistance of 2 or more helpers is required for the patient to complete the activity. If activity was not attempted, code reason: 7-Patient Refused. 9-Not Applicable-not attempted and the patient did not perform the activity before the current illness, exacerbation or injury. 10-Not Attempted due to Environmental Limitations-(lack of equipment, weather restraints, etc.). 88-Not Attempted due to Medical Conditions or Safety Concerns. ADL PLOF Comments Pt admitted to [facility] 07/07/19, then admitted to [facility] 07/08/19. PLOF at halfway unknown at this time. Pt able to provide the following PLOF, before hospitalization in May: Pt reports she had been living with her , who assists her with bathing and dressing. When asked how much assistance she required, pt was unable to provide details stating "we are able to get around". Pt reports having a walk in shower with a chair. Self Care: Needed Some Help Functional Cognition: Independent DME/Equipment: Bath Chair DME/Equipment Comments Pt reports having a walker and a cane at home OT Current Status Subjective Pt laying in bed at start of session, agreeable to OT tx/eval with focus on ADLs. Pt did not report any pain during session. Mental Status/Objective Patient Orientation: Person, Place, Time, Situation Attachments: Harper Catheter, IV Current Glasses/Contacts: Yes Hearing Aids: Yes Dentures/Partials: Yes Upper Extremity ROM Pt able to reach BUE and touch back of head in order to brush her hair. Upper Extremity Coordination no deficits noted during ADL session, pt able to complete bilateral integration task of brushing dentures. Upper Extremity Sensation Pt did not report any changes in sensation. Upper Extremity Strength ~3/5 MMT BUE, pt required assistance opening toothpaste container secondary to pt stating she is too "weak" ADL-Treatment Oral Hygiene (QC): 3 (Pt required set up assistance, being unable to open toothpaste container. Pt able to bring toothbrush to her mouth to complete oral hygiene. Pt then able to scrub her dentures on tray table in front of her requiring assistance for thoroughness.) Shower/Bathe Self (QC): 2 (Pt completed spongebath at bed level, washing around clothing. Pt able to wash BUE, face, chest and abdomen, and lower extremites between knee and ankle. Pt required assistance washing upper legs for thoroughness and BLE feet. Pt declined washing buttocks/periarea on this date, pleasantly stating she was too tired.) Other Treatments Pt laying in bed at start of session, provided assistance about PLOF. Pt assisted with sponge bath at bed level, sitting upright with legs extended in front of her approximately 30 seconds as OT washed pt's back. After sponge bath, pt completed hair brushing and oral hygiene. Pt stated she felt better after getting cleaned up, stating "I haven't brushed my teeth in a month". Pt pl easantly declined EOB activities, stating she is feeling tired and would like to lay down and rest. Pt participated throughout session to her tolerance and was pleasant during tx. Post OT session, pt laying in bed, call light in reach and all needs met. Education OT Patient Education: Correct positioning, Energy conservation, Modified ADL techniques, Progress toward Goal/Update tx plan, Purpose of tx/functional activities Teaching Recipient: Patient Teaching Methods: Demonstration, Discussion Response to Teaching: Verbalize Understanding OT Short Term Goals Short Term Goals 1=Demonstrate adherence to instructed precautions during ADL tasks. 2=Patient will verbalize/demonstrate understanding of assistive devices/modifications for ADL. 3=Patient will improve strength/tolerance for activity to enable patient to perform ADL's. OT Core Dipper Goals Long-Term Goals Time Frame: Jul 23, 2019 Eating (QC): 5 Oral Hygiene (QC): 5 Shower/Bathe Self (QC): 3 Upper Body Dressing (QC): 3 Lower Body Dressing (QC): 3 On/Off Footwear (QC): 3 Toileting Hygiene (QC): 3 Toilet/Commode Transfer (QC): 4 Additional Goals: 1-Demonstrate ADL Tasks, 2-Verbalize Understanding, 3- ImproveStrength/Sharad 1=Demonstrate adherence to instructed precautions during ADL tasks. 2=Patient will verbalize/demonstrate understanding of assistive devices/modifications for ADL. 3=Patient will improve strength/tolerance for activity to enable patient to perform ADL's. OT Education/Plan Problem List/Assessment Assessment: Decreased Activ Tolerance, Decreased UE Strength, Impaired I ADL's, Impaired Self-Care Skills Discharge Recommendations Plan/Recommendations: Continue POC Treatment Plan/Plan of Care Treatment,Training & Education: Yes Patient would benefit from OT for education, treatment and training to promote independence in ADL's, mobility, safety and/or upper extremity function for ADL's. Plan of Care: ADL Retraining, Caregiver Training, Functional Mobility, UE Funct Exercise/Act Treatment Duration: Jul 23, 2019 Frequency: 5 times per week Estimated Hrs Per Day: .25 hour per day Agreement: Yes Rehab Potential: Fair Time/GCodes Start Time: 09:44 Stop Time: 10:07 Total Time Billed (hr/min): 23 Billed Treatment Time 1, EVM (10mins), ADL (13mins) RYAN DUNNE OT Jul 09, 2019 10:16 POS
--- NOTE | 2019-07-09 12:11 | Physical Therapy Evaluation ---
PT Evaluation-General Medical Diagnosis Admission Date Jul 08, 2019 at 20:30 Medical Diagnosis: severe sepsis, severe anemia, pneumonia, UTI Onset Date: Jul 08, 2019 Therapy Diagnosis Therapy Diagnosis: weakness, debility Precautions Precautions/Isolations: Fall Prevention, Standard Precautions Weight Bear Status Right Lower Extremity: Right Weight Bearing/Tolerated Left Lower Extremity: Left Weight Bearing/Tolerated Referral Physician: Kathryn Reason for Referral: Evaluation/Treatment Medical History Pertinent Medical History: Atrial Fib, COPD, DM, HTN, Rheumatoid Arthritis Current History EMS secondary to weakness and lethargy from [facility]. Reviewed History: Yes Social History Home: Residential ([facility]) Prior Prior Level of Function SCALE: Activities may be completed with or without assistive devices. 2-Anazhkykkf-kvkixom completes the activity by him/herself with no assistance from a helper. 5-Set-up or Clean-up Assistance-helper sets up or cleans up; patient completes activity. [place] assists only prior to or following the activity. 4-Supervision or Touching Assistance-helper provides verbal cues and/or touching/steadying and/or contact guard assistance as patient completes activity. Assistance may be provided throughout the activity or intermittently. 3-Partial/Moderate Assistance-helper does LESS THAN HALF the effort. [place] lifts, holds or supports trunk or limbs, but provides less than half the effort. 2-Substantial/Maximal Assistance-helper does MORE THAN HALF the effort. [place] lifts or holds trunk or limbs and provides more than half the effort. 7-Fdwdfgisl-dfsfbr does ALL the effort. Patient does none of the effort to complete the activity. Or, the assistance of 2 or more helpers is required for the patient to complete the activity. If activity was not attempted, code reason: 7-Patient Refused. 9-Not Applicable-not attempted and the patient did not perform the activity before the current illness, exacerbation or injury. 10-Not Attempted due to Environmental Limitations-(lack of equipment, weather restraints, etc.). 88-Not Attempted due to Medical Conditions or Safety Concerns. Bed Mobility: 5 Transfers (B,C,W/C): 5 Gait: 5 Indoor Mobility (Ambulation): Independent PT Evaluation-Current Subjective Patient reports she is feeling okay and having no pain. Patient states she [place] [facility] [place] [facility]. Pain Numeric Pain Scale: 0-No Pain Location: No Pain Reported Objective Patient Orientation: Normal For Age Problem Solving: Fair Attachments: Harper Catheter, IV ROM/Strength ROM Lower Extremities WFL Strength Lower Extremities Grossly 3/5 Integumentary/Posture Integumentary See nursing notes Bowel Incontinence: No Bladder Incontinence: Yes Posture WFL Neuromuscular (Tone, Coordination, Reflexes) grossly intact Sensory Vision: Functional Hearing: Functional Transfers Roll Left to Right (QC): 4 Lying to Sitting/Side of Bed(Q: 4 Sit to Stand (QC): 4 Patient able to perform bed mobility without assistance but required cues; performed tasks slowly and was weak/shaky; SBA Gait Does the Patient Walk?: Yes Mode of Locomotion: Walk Anticipated Mode of Locomotion: Walk Walk 10 feet (QC): 4 Walk 50 ft with 2 Turns(QC): 4 Distance: 150' Gait Assistive Device: FWW Comments/Gait Description Shaky steps, narrow MARCELINO, leaning on walker Balance Sitting Static: Normal Sitting Dynamic: Normal Standing Static: Normal Standing Dynamic: Normal Assessment/Needs Patient able to perform bed mobility with assistance but required cues to scoot to edge of bed before standing. Patient was slow and shaky/weak during bed mobility requiring SBA. Patient able to stand from EOB SBA as well. Patient ambulated 150' with FWW with demonstration of weakness but no difficulty or LOB. Patient seated in chair at conclusion of treatment with feet elevated. Rehab Potential: Fair PT Care Home Goals Care Home Goals PT Care Home Goals Time Frame: Jul 16, 2019 Sit to Lying (QC): 5 Lying-Sitting on Side/Bed(QC): 5 Sit to Stand (QC): 5 Roll Left to Right (QC): 5 Chair/Emh-ie-Lqptm Xfer(QC): 5 Car Transfer (QC): 5 Distance: 300' Walk 10 feet (QC): 5 Walk 10ft-Uneven Surface(QC): 5 Walk 50ft with 2 Turns (QC): 5 Walk 150 ft (QC): 5 Gait Assistive Device: FWW PT Plan Problem List Problem List: Activity Tolerance, Functional Strength, Safety, Balance, Gait, Transfer, Bed Mobility Treatment/Plan Treatment Plan: Continue Plan of Care Treatment Plan: Bed Mobility, Education, Functional Activity Sharad, Functional Strength, Gait, Safety, Therapeutic Exercise, Transfers Treatment Duration: Jul 16, 2019 Frequency: 6 times per week Estimated Hrs Per Day: .25 hour per day Patient and/or Family Agrees t: Yes Time/GCodes Time In: 1030 Time Out: 1047 Total Billed Treatment Time: 17 Total Billed [facility] CURT[facility] G[facility] PT Jul 09, 2019 12:11 POS
--- NOTE | 2019-07-09 14:28 | NUR ---
"RD ASSESSMENT PMHx: afib; HTN; GERD; DM PT INTERACTION: Pt was awake and pleasant during consult for MST score. Pt states current appetite is poor and has been that way for about a week. Pt states following a regular diet at home, and currently has no difficulties chewing/swallowing food. Pt states n orecent issues with nausea or vomiting. Pt states some issues with constipation. Pt states she cannot remember last BM occurred. Note no BM recorded and pt not currently on bowel regimen at this time. Pt states no recent wt changes. Note unable to determine recent wt hx, per chart review. Though pt's PO intake is average, pt is not at risk for malnutrition at this time per ASPEN guidelines. ABNORMAL NUTRITION-RELATED LAB VALUES: K 3.4 (L); Pro 5.1 (L); alb 2.2 (L); Ca 7.7 (L); glu 109 (H); bili 1.2 (H) Est. kcal needs: 5352-1630 kcal (25-30 kcal/kg) Est. Pro needs: 57-68 g Pro (1.0-1.2 g Pro/kg) PES STATEMENT: Inadequate oral intake (NI-2.1) related to loss of appetite as evidenced by pt interview | avg PO intake 50% x1meal INTERVENTION: Continue with current diet order of Clear Liquid Diet. Advance diet, as medically able. Pt may benefit from nutrition supplementation if PO intake declines. MONITOR/EVALUATE: PO Intake; Plan of Care; Hydration Status; Weight Status; Lab Values Kosta Rodriguez, MS, RD, LD Ext. 133"
--- NOTE | 2019-07-09 14:36 | NUR ---
Initial visit with pt and and her , All. They are [employer] and attend a [facility] in [place]. I met All at the front entrance and escorted him to the pt's room. All was tearful when we entered the room together, and said the last time he saw her was in the ER. He said he was relieved to see his doing so well.
--- NOTE | 2019-07-09 16:52 | Consultation-Cardiology ---
HPI-Cardiology Cardiology Consultation: Date of Consultation 07/09/19 Time Seen by a Provider: 10:00 Date of Admission Attending Physician Aakash Santos MD Admitting Physician Dr Peralta Consulting Physician ANA FINLEY MD, MA, FACP, FACC, FSCAI, CCDS HPI: Chief Complaint: Reason for consultation: A fib HPI 74 yo woman admitted to dr Peralta on 07/08/19 with UTI and sepsis. Has h/o anemia. She is reported to have a h/o PAF. She notes gen malaise and weakness and states that she gets tired easily and has poor stamina. She denies cp or palp or syncope Review of Systems-Cardiology Review of Systems Constitutional: malaise, tiredness; No weight loss, No weight gain Eyes: No vision change Ears/Nose/Throat: No ear discharge, No nasal drainage, No recent hearing loss Respiratory: As described under HPI Cardiovascular: As described under HPI Gastrointestinal: No diarrhea, No nausea, No vomiting Genitourinary: No dysuria, No hematuria, No urine frequency changes Musculoskeletal: back pain (chronic) Skin: No rash, No ulcerations Psychiatric/Neurological: No seizure, No focal weakness, No syncope Hematologic: No bleeding abnormalities [id number] Hx Patient Social History Employed/Student: retired Alcohol Use: Denies Use Recreational Drug Use: No Smoking Status: Never a Smoker 2nd Hand Smoke Exposure: No Recent Foreign Travel: No Recent Infectious Disease Expo: No Hospitalization with Isolation: Denies Immunizations Up To Date Tetanus Booster (TDap): Unknown Date of Pneumonia Vaccine: May 03, 2009 Date of Influenza Vaccine: May 25, 2019 Past Medical History PMH As described under Assessment. Family Medical History Family Medical History: Does not report fam h/o early CAD or SCD Allergies and Home Medications Allergies Coded Allergies: Cephalexin Monohydrate (Verified Allergy, Unknown, 07/08/19) Penicillins (Verified Allergy, Unknown, 07/08/19) iodine (Verified Allergy, Unknown, 07/08/19) prednisone (Verified Allergy, Unknown, 07/08/19) venlafaxine HCl (Verified Allergy, Unknown, 07/08/19) Home Medications Acetaminophen 325 Mg Tablet, 650 MG PO Q4H PRN for PAIN-MILD, (Reported) Apixaban 5 Mg Tablet, 5 MG PO BID, (Reported) Aspirin 81 Mg Tablet.dr, 81 MG PO DAILY, (Reported) Atorvastatin Calcium 20 Mg Tablet, 20 MG PO HS, (Reported) Budesonide 0.5 Mg/2 Ml Ampul.neb, 0.5 MG NEB BID, (Reported) Calcium Carbonate/Vitamin D3 1 Each Tablet, 1 TAB PO DAILY, (Reported) Carvedilol 6.25 Mg Tablet, 6.25 MG PO BID, (Reported) Cholecalciferol (Vitamin D3) 5,000 Unit Capsule, 5,000 UNIT PO DAILY, (Reported) Citalopram Hydrobromide 10 Mg Tablet, 10 MG PO BID, (Reported) Estrogens Conjugated 0.45 Mg Tab, 0.45 MG PO DAILY, (Reported) Ferrous Sulfate 325 Mg Tablet, 325 MG PO DAILY, (Reported) Flecainide Acetate 100 Mg Tablet, 100 MG PO BID, (Reported) Furosemide 20 Mg Tablet, 20 MG PO DAILY, (Reported) Ipratropium/Albuterol Sulfate 3 Ml Ampul.neb, 3 ML NEB QID, (Reported) Metformin HCl 500 Mg Tablet, 500 MG PO DAILY, (Reported) Mirtazapine 15 Mg Tablet, 15 MG PO HS, (Reported) Pantoprazole Sodium 40 Mg Tablet.dr, 40 MG PO DAILY, (Reported) Polyethylene Glycol 3350 17 Gm Powd.pack, 17 GM PO DAILY PRN for CONSTIPATION- 2ND LINE, (Reported) Sennosides/Docusate Sodium 1 Each Tablet, 1 TAB PO BID PRN for CONSTIPATION-6TH LINE, (Reported) Vit A/Vit C/Vit E/Zinc/Copper 1 Each Tablet, 1 TAB PO DAILY, (Reported) Patient Home Medication List Home Medication List Reviewed: Yes Physical Exam-Cardiology Physical Exam Vital Signs/I&O 07/09/19 07/09/19 07/09/19 07/09/19 05:00 05:49 06:00 06:49 Temp 37.5 Pulse 93 100 101 107 Resp 23 20 13 B/P (MAP) 142/46 (78) 138/47 146/46 (79) Pulse Ox 93 93 O2 Delivery Room Air Room Air Room Air 07/09/19 07/09/19 07/09/19 07/09/19 08:00 08:00 09:00 12:00 Pulse 108 Resp 16 B/P (MAP) 141/52 (81) Pulse Ox 91 91 O2 Delivery Room Air Room Air Room Air Room Air 07/09/19 07/09/19 07/09/19 07/09/19 12:00 12:47 16:05 16:05 Pulse 98 94 98 Resp 14 14 B/P (MAP) 127/76 (93) 127/76 (93) Pulse Ox 97 97 O2 Delivery Room Air Room Air Room Air 07/09/19 00:00 Intake Total 2200 ml Balance 2200 ml Capillary Refill : Less Than 3 Seconds Constitutional: AAO x 3, well-developed, other (thin appearing) HEENT: EOMI, hearing is well preserved; No xanthelasmas are seen Neck: carotid pulses are 2 + bilaterally, with good upstrokes Respiratory: No accessory muscle use; other (good bilat air entry, somewhat diminished at the bases) Cardiovascular: regular rate-rhythm, S1 and S2, systolic murmur (soft LIBERTY at card base) Gastrointestinal: No tender; soft; No guarding, No rebound, No audible bowel sounds Extremities: No clubbing, No cyanosis, No significant edema Neurologic/Psychiatric: oriented x 3, other (moves all limbs equally) Skin: No rash on exposed areas, No ulcerations on exposed areas Data Review Labs Laboratory Tests 07/08/19 19:10: White Blood Count 6.9, Red Blood Count 2.65L, Hemoglobin 7.1L, Hematocrit 23L, Mean Corpuscular Volume 86, Mean Corpuscular Hemoglobin 27, Mean Corpuscular Hemoglobin Concent 31L, Red Cell Distribution Width 17.7H, Platelet Count 209, Mean Platelet Volume 10.1, Neutrophils (%) (Auto) 74, Lymphocytes (%) (Auto) 8L, Monocytes (%) (Auto) 18H, Eosinophils (%) (Auto) 0, Basophils (%) (Auto) 0, Neutrophils # (Auto) 5.1, Lymphocytes # (Auto) 0.5L, Monocytes # (Auto) 1.3H, Eosinophils # (Auto) 0.0, Basophils # (Auto) 0.0, Neutrophils % (Manual) 64, Lymphocytes % (Manual) 6, Monocytes % (Manual) 14, Band Neutrophils 16, Toxic Granulation 1+, Blood Morphology Comment NORMAL, Prothrombin Time 22.1H, INR Comment 1.8H, Activated Partial Thromboplast Time 56H, Sodium Level 132L, Potassium Level 3.7, Chloride Level 97L, Carbon Dioxide Level 26, Anion Gap 9, Blood Urea Nitrogen 19H, Creatinine 0.80, Estimat Glomerular Filtration Rate > 60, BUN/Creatinine Ratio 24, Glucose Level 164H, Glucometer 183H, Lactic Acid Level 2.66*H, Calcium Level 7.7L, Corrected Calcium 9.1, Magnesium Level 1.5L, Total Bilirubin 1.0, Aspartate Amino Transf (AST/SGOT) 30, Alanine Aminotransferase (ALT/SGPT) 13, Alkaline Phosphatase 92, Ammonia 34H, Total Cre atine Kinase 34, Creatine Kinase MB 0.2, Myoglobin 48.4, Troponin I < 0.028, B- Type Natriuretic Peptide 42.9, Total Protein 5.2L, Albumin 2.2L, Amylase Level 25, Lipase 16, TSH [place] Testing 1.00 07/08/19 19:18: Urine Color YELLOW, Urine Clarity CLEAR, Urine pH >=9.0, Urine Specific [place] <=1.005, Urine Protein 1+H, Urine Glucose (UA) NEGATIVE, Urine Ketones NEGATIVE, Urine Nitrite POSITIVE, Urine Bilirubin NEGATIVE, Urine Urobilinogen 1.0, Urine Leukocyte Esterase 1+H, Urine RBC (Auto) 1+H, Urine RBC NONE, Urine WBC 25-50H, Urine Crystals PRESENTH, Urine Amorphous Sediment MOD HAJA PHOSPHATEH, Urine Bacteria LARGEH, Urine Casts NONE, Urine Mucus NEGATIVE, Urine Culture Indicated YES 07/08/19 20:40: Lactic Acid Level 2.64*H 07/09/19 02:35: White Blood Count 7.2, Red Blood Count 3.03L, Hemoglobin 8.3L, Hematocrit 26L, Mean Corpuscular Volume 87, Mean Corpuscular Hemoglobin 27, Mean Corpuscular Hemoglobin Concent 32, Red Cell Distribution Width 17.1H, Platelet Count 196, Mean Platelet Volume 9.8, Neutrophils (%) (Auto) 80H, Lymphocytes (%) (Auto) 8L, Monocytes (%) (Auto) 12, Eosinophils (%) (Auto) 0, Basophils (%) (Auto) 0, Neutrophils # (Auto) 5.8, Lymphocytes # (Auto) 0.6L, Monocytes # (Auto) 0.9, Eo sinophils # (Auto) 0.0, Basophils # (Auto) 0.0, Sodium Level 138, Potassium Level 3.4L, Chloride Level 103, Carbon Dioxide Level 26, Anion Gap 9, Blood Urea Nitrogen 15, Creatinine 0.67, Estimat Glomerular Filtration Rate > 60, BUN/Creatinine Ratio 22, Glucose Level 109H, Calcium Level 7.7L, Corrected Calcium 9.1, Magnesium Level 1.8, Total Bilirubin 1.2H, Aspartate Amino Transf (AST/SGOT) 28, Alanine Aminotransferase (ALT/SGPT) 10, Alkaline Phosphatase 91, Total Protein 5.1L, Albumin 2.2L, Absolute Reticulocyte Count 81, Percent Reticulocyte Count 2.68H, Iron Level , Total Iron Binding Capacity 160L, Unsaturated Iron Binding Capacity 133, Transferrin % Saturation 17 07/09/19 12:04: Glucometer 148H 07/09/19 16:00: Glucometer 107 Microbiology 07/08/19 Blood Culture - Preliminary, Resulted No growth 07/08/19 Influenza Types A,B Antigen (WALE) - Final, Complete Laboratory Tests 07/08/19 19:10 07/09/19 02:35 A/P-Cardiology Assessment/Admission Diagnosis UTI and pneumonia with sepsis, managed by the Hospitalist and Pulmonology Services H/o PAF Severe anemia of undetermined etiology Electrolyte abnormalities Discussion and Recomendations * Keep on tele to monitor rhythm * W/u for anemia * If anemia not due to bleed, then resume apixaban, given her h/o PAF * Replenish lytes * Echo * Monitor labs Clinical Quality Measures DVT/VTE Risk/Contraindication: Risk Factor Score Per Nursin RFS Level Per Nursing on Admit: 4+=Very High ANA FINLEY MD [facility] CCDS Jul 09, 2019 16:52 POS
--- NOTE | 2019-07-09 17:16 | NUR ---
DR SPICER NOTIFIED OF PATIENTS URINE OUT PUT
--- NOTE | 2019-07-09 17:29 | NUR ---
DR JOHNSON NOTIFIED OF BLADDER SCAN RESULTS BEING ZERO.
[2019-07-09] MEDS: LEVOFLOXACIN 500 MG/100 ML IV 100 ML IV SCH (21:03)
[2019-07-10] VITALS (7 sets, daily range): BP systolic 135–179; BP diastolic 59–69
[2019-07-10 03:10] LABS: BASOPHILS % (AUTO) 0 % (0-10); EOSINOPHILS % (AUTO) 0 % (0-10); HEMATOCRIT 26 % (35-52); HEMOGLOBIN 8.3 G/DL (11.5-16.0); LYMPHOCYTES # (AUTO) 0.5 X 10^3 (1.0-4.0); LYMPHOCYTES % (AUTO) 9 % (12-44); MEAN CORPUSCULAR HEMOGLOBIN 27 PG (25-34); MEAN CORPUSCULAR HGB CONC 31 G/DL (32-36); MEAN CORPUSCULAR VOLUME 86 FL (80-99); MEAN PLATELET VOLUME 9.4 FL (7.4-10.4); MONOCYTES # (AUTO) 0.8 X 10^3 (0.0-1.0); MONOCYTES % (AUTO) 16 % (0-12); NEUTROPHILS # (AUTO) 3.8 X 10^3 (1.8-7.8); NEUTROPHILS % (AUTO) 74 % (42-75); PLATELET COUNT 200 10^3/uL (130-400); RED CELL DISTRIBUTION WIDTH 17.4 % (10.0-14.5); WHITE BLOOD COUNT 5.1 10^3/uL (4.3-11.0)
[2019-07-10 03:29] LABS: BUN/CREATININE RATIO 18; CALCIUM 7.3 MG/DL (8.5-10.1); CARBON DIOXIDE 22 MMOL/L (21-32); CHLORIDE 111 MMOL/L (98-107); GFR ESTIMATED > 60; GLUCOSE 89 MG/DL (70-105); MAGNESIUM 1.5 MG/DL (1.6-2.4); PHOSPHORUS 2.5 MG/DL (2.3-4.7); POTASSIUM 3.6 MMOL/L (3.6-5.0); SODIUM 140 MMOL/L (135-145)
[2019-07-10] MEDS: NS IV 1000 ML 1,000 ML IV SCH ×2 (03:59→20:32)
--- NOTE | 2019-07-10 04:55 | Pulmonary Progress Note ---
Subjective Time Seen by a Provider: 04:53 Subjective/Events-last exam Pt had decreased UO last night. IVF now 150cc/hr. Sepsis Event Evaluation Height, Weight, BMI Height: '" Weight: lbs. oz. kg; 19.77 BMI Method:Estimated Focused Exam Lactate Level 07/08/19 19:10: Lactic Acid Level 2.66*H 07/08/19 20:40: Lactic Acid Level 2.64*H Exam Exam Vital Signs Date Time Temp Pulse Resp B/P (MAP) Pulse Ox O2 Delivery O2 Flow Rate FiO2 07/10/19 04:00 36.8 90 16 162/69 (100) 93 Room Air 07/10/19 03:13 Room Air 07/10/19 01:00 95 07/10/19 00:00 36.9 76 18 151/59 (89) 97 Room Air 07/10/19 00:00 Room Air 07/09/19 21:00 91 Room Air 07/09/19 20:00 36.4 82 16 144/67 (92) 97 Room Air 07/09/19 20:00 Room Air 07/09/19 19:00 87 07/09/19 16:05 98 14 127/76 (93) 97 Room Air 07/09/19 16:05 Room Air 07/09/19 12:47 94 07/09/19 12:05 37.4 07/09/19 12:00 98 14 127/76 (93) 97 Room Air 07/09/19 12:00 Room Air 07/09/19 09:00 91 Room Air 07/09/19 08:00 Room Air 07/09/19 08:00 108 16 141/52 (81) 91 Room Air 07/09/19 06:49 107 07/09/19 06:00 101 13 146/46 (79) 93 Room Air 07/09/19 05:49 37.5 100 20 138/47 Room Air 07/09/19 05:00 93 23 142/46 (78) 93 Room Air I & O 07/10/19 07:00 Intake Total 2470 ml Output Total 500 ml Balance 1970 ml Height & Weight Height: '" Weight: lbs. oz. kg; 19.77 BMI Method:Estimated General Appearance: No Apparent Distress, Chronically ill, Thin HEENT: PERRL/EOMI, Moist Mucous Membranes; No Scleral Icterus (L), No Scleral Icterus (R) Neck: Normal Inspection, Supple Respiratory: Lungs Clear, No Respiratory Distress Cardiovascular: Regular Rate, Rhythm, No Murmur Capillary Refill: Less Than 3 Seconds Gastrointestinal: normal bowel sounds, non tender, soft Extremity: Normal Capillary Refill, No Calf Tenderness, No Pedal Edema Neurologic/Psychiatric: Alert, Oriented x3; No Aphasia; Depressed Affect; No Facial Droop Skin: Warm/Dry, Other (erythema on cheeks) Results Lab Laboratory Tests 07/08/19 19:10 07/09/19 02:35 07/10/19 02:52 Assessment/Plan Assessment/Plan Pneumonia with atelectasis -Continue Levaquin Metabolic lactic acidosis -IVF NS currently at 150 Hypokalemia, hypophos, hypomag -replace UTI -Continue Levaquin - Anemia Chronic afib NIDDM HARLEY GAMA DO Jul 10, 2019 04:54 POS
[2019-07-10] MEDS ORDERED: MAGNESIUM 1 GM/100 ML IVPB 300 ML IV ONE (04:58)
[2019-07-10] MEDS ORDERED: POTASSIUM PHOSPHATE INJ 30 MM in NS (IVPB) 250 ML IV ONE (05:00)
[2019-07-10] MEDS: MAGNESIUM 1 GM/100 ML IVPB 100 ML IV SCH ×3 (05:01→06:50)
[2019-07-10] MEDS: inSUlin ASPART (NovoLOG) 1 UNIT/0.01 ML (CHARGE PER UNIT) SC SCH ×4 (05:02→20:03)
[2019-07-10] MEDS ORDERED: 0.9% SODIUM CHLORIDE PF INJ 20 ML VIAL ONE (09:36)
[2019-07-10] MEDS: PANTOPRAZOLE 40 MG (PROTONIX) VIAL IV SCH (09:47)
--- NOTE | 2019-07-10 09:51 | Progress Note - Hospitalist ---
Subjective HPI/CC On Admission Date Seen by Provider: Jul 10, 2019 Time Seen by Provider: 09:42 Pt is 74yoCF with an extensive past medical history with multiple recent hospitalizations at different hospitals who presented to the ER due to lethargy, fever, and hypotension. When asked what brought her to the hospital she states "everything shut down 3 months ago" and then asked me to review her records. Unfortunately none of her previous hospitalizations have been here but she is agreeable to send records requests from these other hospitals. She did states she has had severe anemia with no cause identified and required multiple transfusions she also states she had burning with urination starting yesterday. Otherwise she was not able to provide much history. Review of ER notes shows she was in good health until May of this year when she was admitted to [facility] in [place] for sepsis and anemia. She was transferred from there to [facility] and reported had negative bone marrow biopsies x2 and EGD/colonoscopies. She was then transferred to [facility] in [place] and had more workup that was negative. She was discharged from there to [facility] on 07/07 and developed fevers and dysuria yesterday prompting evaluation in the ER last night. She was found to have a recurrent UTI, lactic acidosis but was not febrile here. She was admitted to cardiac stepdown for further evaluation. Subjective/Events-last exam Patient reports feeling better today. Reports improved oral intake though has had issues with nutrition in the past. Discussed drinking ensures which she declines because they're too sweet. Focused Exam Lactate Level 07/08/19 19:10: Lactic Acid Level 2.66*H 07/08/19 20:40: Lactic Acid Level 2.64*H Objective Exam Vital Signs Vital Signs Date Time Temp Pulse Resp B/P (MAP) Pulse Ox O2 Delivery O2 Flow Rate FiO2 07/10/19 07:00 85 07/10/19 04:00 36.8 16 162/69 (100) 93 Room Air Capillary Refill : Less Than 3 Seconds General Appearance: No Apparent Distress, Chronically ill, Thin Respiratory: Lungs Clear, No Respiratory Distress Cardiovascular: Regular Rate, Rhythm, No Murmur Gastrointestinal: Normal Bowel Sounds, Non Tender, Soft Neurologic/Psychiatric: Alert, Oriented x3 Results/Procedures Lab Laboratory Tests 07/10/19 02:52 Patient resulted labs reviewed. Imaging: Reviewed Imaging Report Assessment/Plan Assessment and Plan Assess & Plan/Chief Complaint Severe Sepsis- resolved RLL PNA UTI UA concerning for UTI and CXR reveals RLL pna Continue Levaquin- add probiotic Culture reveal Proteus, sensitive to everything but Macrobid Normocytic Anemic Stable at this time around 8 Heme/Onc consulted If not done at OSH consulted tagged rbc or capsule endoscopy FOBT Iron studies show elevated ferritin and low TIBC, for some reason Iron level not done paroxysmal Atrial Fibrillation Discussed risks and benefits of continued anticoagulation due profound anemia Will hold at this time, patient expressed understanding of increased risk of stroke without OAC at this time and agreed Cardiology consulted, appreciate recs Hypokalemia Hypomagnesemia Replace per protocol Protein energy malnutrition Recommended ensure but pt declines Electric Blanket Packer consult Diagnosis/Problems Diagnosis/Problems (1) Severe sepsis Status: Acute (2) Severe anemia Status: Acute (3) RLL pneumonia Status: Acute Qualifiers: Pneumonia type: due to unspecified organism Qualified Codes: J18.1 - Lobar pneumonia, unspecified organism (4) UTI (urinary tract infection) Status: Acute Qualifiers: Urinary tract infection type: acute cystitis Hematuria presence: without hematuria Qualified Codes: N30.00 - Acute cystitis without hematuria (5) Electrolyte imbalance Status: Acute (6) Generalized weakness Status: Acute (7) Lactic acidosis Status: Acute Clinical Quality Measures DVT/VTE Risk/Contraindication: Risk Factor Score Per Nursin RFS Level Per Nursing on Admit: 4+=Very High ODELL JOHNSON MD Jul 10, 2019 09:51 POS
[2019-07-10] MEDS ORDERED: SENNA W/DOCUSATE (SENOKOT S) TABLET PO PRN (10:00)
[2019-07-10] MEDS ORDERED: POLYETHYLENE GLYCOL 17 GM (MIRALAX) PACK PO PRN (11:03)
--- NOTE | 2019-07-10 11:32 | NUR ---
DR JOHNSON NOTIFIED OF PATIENT'S FEVER
--- NOTE | 2019-07-10 11:42 | Physical Therapy Progress Note ---
Therapy Progress Note Patient refused PT his am. Will re-attempt. REBECA HATFIELD PT Jul 10, 2019 11:42 POS
[2019-07-10] MEDS: ACETAMINOPHEN 500 MG TAB (TYLENOL) PO PRN ×2 (11:58→17:41)
[2019-07-10] MEDS: FLECAINIDE 100 MG (TAMBOCOR) TAB PO SCH ×2 (15:38→20:46)
[2019-07-10] MEDS: 1/2 NS IV SOLUTION 1,000 ML IV SCH ×2 (15:38→19:45)
--- NOTE | 2019-07-10 16:45 | Progress Note - Cardiology ---
Cardiology SOAP Progress Note Subjective: No new symptoms Gen malaise No cp or palp or syncope or shortness of breath at rest Objective: I&O/Vital Signs 07/10/19 07/10/19 07/10/19 07/10/19 07:00 08:00 08:00 09:00 Temp 36.4 Pulse 85 82 Resp 16 B/P (MAP) 165/63 (97) Pulse Ox 96 91 O2 Delivery Room Air Room Air Room Air 07/10/19 07/10/19 07/10/19 07/10/19 11:31 11:58 12:00 12:28 Temp 38.6 38.6 37.4 O2 Delivery Room Air 07/10/19 07/10/19 12:34 13:00 Temp 38.5 Pulse 103 115 Resp 18 B/P (MAP) 179/63 (101) Pulse Ox 95 O2 Delivery Room Air 07/10/19 00:00 Intake Total 1470 ml Output Total 500 ml Balance 970 ml Constitutional: AAO x 3, well-developed, other (thin appearing) Respiratory: No accessory muscle use; other (good bilat air entry, somewhat diminished at the bases) Cardiovascular: regular rate-rhythm, S1 and S2, systolic murmur (soft LIBERTY at card base) Gastrointestional: No tender; soft; No guarding, No rebound, No audible bowel sounds Extremities: No clubbing, No cyanosis, No significant edema Neurologic/Psychiatric: oriented x 3, other (moves all limbs equally) Skin: No rash on exposed areas, No ulcerations on exposed areas Results/Procedures: Labs Laboratory Tests 07/09/19 20:17: Glucometer 122H 07/10/19 02:52: White Blood Count 5.1, Red Blood Count 3.06L, Hemoglobin 8.3L, Hematocrit 26L, Mean Corpuscular Volume 86, Mean Corpuscular Hemoglobin 27, Mean Corpuscular Hemoglobin Concent 31L, Red Cell Distribution Width 17.4H, Platelet Count 200, Mean Platelet Volume 9.4, Neutrophils (%) (Auto) 74, Lymphocytes (%) (Auto) 9L, Monocytes (%) (Auto) 16H, Eosinophils (%) (Auto) 0, Basophils (%) (Auto) 0, Neutrophils # (Auto) 3.8, Lymphocytes # (Auto) 0.5L, Monocytes # (Auto) 0.8, Eosinophils # (Auto) 0.0, Basophils # (Auto) 0.0, Sodium Level 140, Potassium Level 3.6, Chloride Level 111H, Carbon Dioxide Level 22, Anion Gap 7, Blood Urea Nitrogen 9, Creatinine 0.50L, Estimat Glomerular Filtration Rate > 60, BUN/Creatinine Ratio 18, Glucose Level 89, Calcium Level 7.3L, Phosphorus Level 2.5, Magnesium Level 1.5L 07/10/19 09:28: Stool Occult Blood Immunoassay POSITIVEH 07/10/19 11:26: Glucometer 80 07/10/19 16:07: Glucometer 109 Microbiology 07/08/19 Blood Culture - Preliminary, Resulted No growth 07/08/19 Influenza Types A,B Antigen ([facility]) - Final, Complete 07/08/19 Urine Culture - Final, Complete Proteus mirabilis Laboratory Tests 07/08/19 19:10 07/09/19 02:35 07/10/19 02:52 A/P: Assessment: UTI and pneumonia with sepsis, managed by the Hospitalist and Pulmonology Services H/o PAF Severe anemia of undetermined etiology Electrolyte abnormalities Plan: * I discussed her case with Dr Peralta this am * Keep on tele to monitor rhythm * W/u for anemia * If anemia not due to bleed, then resume apixaban, given her h/o PAF * Replenish lytes and monitor labs * Apparently, has been on flecainide for A Fib prevention. Continue * ANA Hsieh MD FACP [facility] CCDS Jul 10, 2019 16:45 POS
[2019-07-10] MEDS: LEVOFLOXACIN 500 MG/100 ML IV 100 ML IV SCH (20:28)
[2019-07-10] MEDS: CARVEDILOL 6.25 MG (COREG) TAB PO SCH (20:46)
[2019-07-10] MEDS: MIRTAZAPINE 15 MG (REMERON) TAB PO SCH (20:46)
[2019-07-11 03:50] VITALS: BP 119/68
[2019-07-11 04:02] LABS: BASOPHILS % (AUTO) 1 % (0-10); EOSINOPHILS % (AUTO) 1 % (0-10); HEMATOCRIT 28 % (35-52); HEMOGLOBIN 8.6 G/DL (11.5-16.0); LYMPHOCYTES # (AUTO) 0.5 X 10^3 (1.0-4.0); LYMPHOCYTES % (AUTO) 13 % (12-44); MEAN CORPUSCULAR HEMOGLOBIN 27 PG (25-34); MEAN CORPUSCULAR HGB CONC 31 G/DL (32-36); MEAN CORPUSCULAR VOLUME 87 FL (80-99); MEAN PLATELET VOLUME 9.6 FL (7.4-10.4); MONOCYTES # (AUTO) 0.6 X 10^3 (0.0-1.0); MONOCYTES % (AUTO) 16 % (0-12); NEUTROPHILS # (AUTO) 2.4 X 10^3 (1.8-7.8); NEUTROPHILS % (AUTO) 70 % (42-75); PLATELET COUNT 211 10^3/uL (130-400); RED CELL DISTRIBUTION WIDTH 17.6 % (10.0-14.5); WHITE BLOOD COUNT 3.5 10^3/uL (4.3-11.0)
[2019-07-11 04:28] LABS: BUN/CREATININE RATIO 13; CALCIUM 7.7 MG/DL (8.5-10.1); CARBON DIOXIDE 20 MMOL/L (21-32); CHLORIDE 108 MMOL/L (98-107); CREATININE SERUM 0.52 MG/DL (0.60-1.30); GFR ESTIMATED > 60; GLUCOSE 80 MG/DL (70-105); MAGNESIUM 1.9 MG/DL (1.6-2.4); PHOSPHORUS 5.6 MG/DL (2.3-4.7); SODIUM 139 MMOL/L (135-145)
[2019-07-11] MEDS: inSUlin ASPART (NovoLOG) 1 UNIT/0.01 ML (CHARGE PER UNIT) SC SCH ×4 (05:23→20:15)
[2019-07-11] MEDS: 1/2 NS IV SOLUTION 1,000 ML IV SCH ×3 (05:23→22:44)
[2019-07-11 08:00] VITALS: BP 183/69
[2019-07-11] MEDS: ASPIRIN E.C. 81 MG (ECOTRIN) TAB PO SCH (09:00)
[2019-07-11] MEDS: FLECAINIDE 100 MG (TAMBOCOR) TAB PO SCH ×2 (09:37→20:15)
[2019-07-11] MEDS: PANTOPRAZOLE 40 MG (PROTONIX) VIAL IV SCH (09:37)
[2019-07-11] MEDS: CARVEDILOL 6.25 MG (COREG) TAB PO SCH ×2 (09:37→20:15)
--- NOTE | 2019-07-11 10:11 | Progress Note - Hospitalist ---
Subjective HPI/CC On Admission Date Seen by Provider: Jul 11, 2019 Time Seen by Provider: 10:08 Pt is 74yoCF with an extensive past medical history with multiple recent hospitalizations at different hospitals who presented to the ER due to lethargy, fever, and hypotension. When asked what brought her to the hospital she states "everything shut down 3 months ago" and then asked me to review her records. Unfortunately none of her previous hospitalizations have been here but she is agreeable to send records requests from these other hospitals. She did states she has had severe anemia with no cause identified and required multiple transfusions she also states she had burning with urination starting yesterday. Otherwise she was not able to provide much history. Review of ER notes shows she was in good health until May of this year when she was admitted to [facility] in [place] for sepsis and anemia. She was transferred from there to [facility] and reported had negative bone marrow biopsies x2 and EGD/colonoscopies. She was then transferred to [facility] in [place] and had more workup that was negative. She was discharged from there to [facility] on 07/07 and developed fevers and dysuria yesterday prompting evaluation in the ER last night. She was found to have a recurrent UTI, lactic acidosis but was not febrile here. She was admitted to cardiac stepdown for further evaluation. Subjective/Events-last exam Pt reports feeling better. Sitting up in bed. No complaints. Daughter and danielle d at bedside with questions regarding discharge planning. Focused Exam Lactate Level 07/08/19 19:10: Lactic Acid Level 2.66*H 07/08/19 20:40: Lactic Acid Level 2.64*H Objective Exam Vital Signs Vital Signs Date Time Temp Pulse Resp B/P (MAP) Pulse Ox O2 Delivery O2 Flow Rate FiO2 07/11/19 08:00 36.8 87 18 183/69 (107) 96 Room Air Capillary Refill : Less Than 3 Seconds General Appearance: No Apparent Distress, WD/WN, Thin Respiratory: Lungs Clear, No Respiratory Distress Cardiovascular: Regular Rate, Rhythm, No Murmur Genital/Rectal: Other (catheter in place) Neurologic/Psychiatric: Alert, Oriented x3 Results/Procedures Lab Laboratory Tests 07/11/19 03:15 Patient resulted labs reviewed. Imaging: Reviewed Imaging Report Assessment/Plan Assessment and Plan Assess & Plan/Chief Complaint Severe Sepsis- resolved RLL PNA UTI Continue Levaquin per sensitivities Culture reveal Proteus, sensitive to everything but Macrobid Normocytic Anemic Stable at this time around 8 Heme/Onc consulted, appreciate recs If not done at OSH consulted tagged rbc or capsule endoscopy FOBT positive Iron studies show elevated ferritin and low TIBC, for some reason Iron level not done B12 and Folate normal paroxysmal Atrial Fibrillation Discussed risks and benefits of continued anticoagulation due profound anemia again with patient and family Will hold at this time, patient expressed understanding of increased risk of stroke without OAC at this time and agreed Cardiology consulted, appreciate recs Hypokalemia Hypomagnesemia Replace per protocol Protein energy malnutrition Ensure clear Lens Block Gauger consult Diagnosis/Problems Diagnosis/Problems (1) Severe sepsis Status: Acute (2) Severe anemia Status: Acute (3) RLL pneumonia Status: Acute Qualifiers: Pneumonia type: due to unspecified organism Qualified Codes: J18.1 - Lobar pneumonia, unspecified organism (4) UTI (urinary tract infection) Status: Acute Qualifiers: Urinary tract infection type: acute cystitis Hematuria presence: without hematuria Qualified Codes: N30.00 - Acute cystitis without hematuria (5) Electrolyte imbalance Status: Acute (6) Generalized weakness Status: Acute (7) Lactic acidosis Status: Acute Clinical Quality Measures DVT/VTE Risk/Contraindication: Risk Factor Score Per Nursin RFS Level Per Nursing on Admit: 4+=Very High ODELL JOHNSON MD Jul 11, 2019 10:11 am POS
--- NOTE | 2019-07-11 10:37 | Pulmonary Progress Note ---
Sepsis Event Evaluation Height, Weight, BMI Height: '" Weight: lbs. oz. kg; 19.77 BMI Method:Estimated Focused Exam Lactate Level 07/08/19 19:10: Lactic Acid Level 2.66*H 07/08/19 20:40: Lactic Acid Level 2.64*H Exam Exam Vital Signs Date Time Temp Pulse Resp B/P (MAP) Pulse Ox O2 Delivery O2 Flow Rate FiO2 07/11/19 08:00 36.8 87 18 183/69 (107) 96 Room Air 07/11/19 07:00 87 07/11/19 03:50 36.4 89 16 119/68 (85) 99 Room Air 07/11/19 03:19 Room Air 07/11/19 01:00 67 07/11/19 00:00 Room Air 07/10/19 23:47 36.1 65 20 145/64 (91) 96 Room Air 07/10/19 20:45 Room Air 07/10/19 20:45 96 Room Air 07/10/19 20:00 36.3 79 16 153/68 (96) 96 Room Air 07/10/19 19:00 90 07/10/19 18:11 36.5 07/10/19 18:11 36.5 07/10/19 17:41 38.0 07/10/19 16:07 36.9 94 18 135/64 (87) 95 Room Air 07/10/19 16:05 Room Air 07/10/19 13:00 115 07/10/19 12:34 38.5 103 18 179/63 (101) 95 Room Air 07/10/19 12:00 Room Air 07/10/19 11:58 38.6 07/10/19 11:31 38.6 I & O 07/11/19 07:00 Intake Total 2960 ml Output Total 2800 ml Balance 160 ml Height & Weight Height: '" Weight: lbs. oz. kg; 19.77 BMI Method:Estimated General Appearance: No Apparent Distress, WD/WN, Thin HEENT: PERRL/EOMI, Moist Mucous Membranes; No Scleral Icterus (L), No Scleral I cterus (R) Neck: Normal Inspection, Supple Respiratory: Lungs Clear, No Respiratory Distress Cardiovascular: Regular Rate, Rhythm, No Murmur Capillary Refill: Less Than 3 Seconds Gastrointestinal: normal bowel sounds, non tender, soft Extremity: Normal Capillary Refill, No Calf Tenderness, No Pedal Edema Neurologic/Psychiatric: Alert, Oriented x3 Skin: Warm/Dry, Other (erythema on cheeks) Results Lab Laboratory Tests 07/10/19 02:52 07/11/19 03:15 Assessment/Plan Assessment/Plan Pneumonia with atelectasis -Continue Levaquin Metabolic lactic acidosis -IVF NS currently at 100 UTI -Continue Levaquin - Anemia Chronic afib NIDDM HARLEY GAMA DO Jul 11, 2019 10:37 POS
[2019-07-11] MEDS: ACETAMINOPHEN 500 MG TAB (TYLENOL) PO PRN ×2 (11:44→15:27)
[2019-07-11 12:00] VITALS: BP 157/55
[2019-07-11] MEDS: LACTOBACILLUS ACIDOPHILUS (PROBIOTIC) CAPSULE PO SCH ×2 (12:00→17:00)
--- NOTE | 2019-07-11 14:17 | CONSULTATION REPORT ---
DATE OF SERVICE: 07/11/2019 The patient is admitted to room 511. PHYSICIAN REQUESTING CONSULTATION: Haylie Peralta MD IMPRESSION: 1. A 74-year-old female admitted to the hospital with increasing weakness and mental status changes. 2. Urinary tract infection due to Proteus. 3. Multiple hospitalizations in [facility], [facility], [facility] in [place], [place], over the last 6 weeks with extensive workup, all of which were negative. RECOMMENDATIONS: 1. Continue management of urinary tract infection as you are doing. 2. I will review the records from [facility] of all the workup done there including infectious disease, rheumatology, hematology, cardiology and pulmonary. 3. Transfuse p.r.n. to maintain hemoglobin more than or equal to 8 grams per deciliter. 4. Overall, prognosis is guarded. BRIEF HISTORY: The patient is a 74-year-old female who was admitted to [facility] last Friday from [facility] in [place]. By , she was becoming more confused and lethargic and was transferred to the emergency room at [facility] and admitted with a urinary tract infection as well as anemia. She received a transfusion with two units of packed red blood cells and is on IV antibiotics for urinary tract infection due to Proteus. Hematology consultation was requested because of anemia. The patient is unable to give detailed history because of probable baseline dementia. Her and daughter was present in the room and indicated that she has not been feeling well for the last several months requiring hospitalization in 12/2018 for pneumonia as well as in 04/2019. She was admitted again in May and since the last six weeks, she has not been back home. In late May, she was admitted to [facility] in [place] with a fever of unknown origin as well as anemia. After 10 days, she was transferred to [facility] and underwent extensive workup including EGD, colonoscopy, bone marrow aspiration biopsy, transesophageal echocardiography, diana cultures with involvement of infectious disease, rheumatology, cardiology, GI, pulmonary as well as hematology services. She was sent to [facility] and from there transferred to [facility] in [place] and from there to [facility]. Few records from [facility] was available at the time of evaluation. PAST MEDICAL HISTORY: Significant for diabetes mellitus type 2 since the last more than 10 years. She was diagnosed with rheumatoid arthritis in 2013 and was on treatment with Xeljanz until mid 2019, at which time this was stopped. During evaluation at [facility] by rheumatology, the diagnosis of rheumatoid arthritis was questioned. She has history of atrial fibrillation and was on anticoagulation in the past, which has been on hold because of the GI bleeding and anemia. The last six weeks, she has required blood transfusion almost on a weekly basis. PAST SURGICAL HISTORY: Include appendectomy, cholecystectomy, hysterectomy, bladder . SOCIAL HISTORY: The patient is and lives in [place], [place]. She has three biological daughters, all of whom live close by, one stepdaughter who lives close by and an adopted son. Denied any tobacco, alcohol or other recreational drug use. 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 Denied any significant exposure to chemicals. FAMILY HISTORY: Significant for brother with an acute leukemia diagnosed in his 70s. Another brother who had throat cancer earlier in life and non-Hodgkin's lymphoma in his 70s. Sister with lung cancer. Maternal grandmother with colon cancer. No other malignancies in the family that the patient knows of. PHYSICAL EXAMINATION: GENERAL: Showed elderly female, thin, and weak appearing, awake and answering simple questions, but having difficulty remembering details. VITAL SIGNS: Temperature was 36.8, pulse rate 87, respirations 18, blood pressure 183/69 with oxygen saturation 96% on room air. HEENT: Normocephalic, extraocular muscles intact, conjunctivae slightly pale, oral mucosa moist. NECK: Supple, with no JVD. No cervical, supraclavicular or axillary lymphadenopathy palpable. CHEST: Symmetrical. LUNGS: With slightly diminished breath sounds in the right base. Rest of the lung. The lung cortez with no wheezes or rales. CARDIOVASCULAR: Irregular with controlled rate and a grade II systolic murmur. ABDOMEN: Soft with mild tenderness in the epigastric area without guarding or rebound. No hepatosplenomegaly or other masses palpable. EXTREMITIES: Showed no edema. NEUROLOGIC: Grossly intact without focal motor deficits. LABORATORY DATA: CBC done at the time of admission showed WBC 6.9, hemoglobin 7.1, MCV 86, platelet count 209,000. Neutrophil count 5.1, lymphocyte 0.5 and monocyte count 1.3. Reticulocyte count on 07/09/2019 was 81,000. Chemistry panel done at the time of admission showed sodium level of 132. Rest of the electrolytes are relatively normal. BUN was 19 and creatinine 0.8 with GFR more than 60 mL per minute. Nonfasting glucose was 164, magnesium was 1.5. Liver function studies were within normal limits except albumin level of 2.2. TSH was 1.0. Serum iron studies were done on 07/09/2019 with serum iron level cancelled. Binding capacity was below normal at 160 and ferritin level was elevated at 1733.1. B12 level was mid normal at 562 and folate level was 14.5. Urinalysis done at the time of admission was positive for nitrites, 1+ leukocyte esterase, 25 to 50 wbc's per high power field and large amount of bacteria. Urine culture showed more than 100,000 colonies of Proteus mirabilis, which was sensitive to most antibiotics except nitrofurantoin. Fecal occult blood test done on 07/10/2019 was positive. Thank you for allowing me to participate in this patient's care. I will follow the patient with you and make appropriate recommendations. Job ID: [id number] DocumentID: [id number] Dictated Date: 07/11/2019 12:03:06 Admissions Manager Rn Date: 07/11/2019 14:16:27 Dictated By: LEEROY BANERJEE MD
--- NOTE | 2019-07-11 14:28 | Progress Note - Cardiology ---
Cardiology SOAP Progress Note Subjective: Still has malaise Tires easily Low stamina No cp or palp or syncope Objective: I&O/Vital Signs 07/11/19 07/11/19 07/11/19 07/11/19 03:19 03:50 07:00 08:00 Temp 36.4 36.8 Pulse 89 87 87 Resp 16 18 B/P (MAP) 119/68 (85) 183/69 (107) Pulse Ox 99 96 O2 Delivery Room Air Room Air Room Air 07/11/19 07/11/19 07/11/19 07/11/19 08:00 08:00 11:47 12:00 Temp 37.6 39.0 Pulse 88 Resp 20 B/P (MAP) 157/55 (89) Pulse Ox 96 96 O2 Delivery Room Air Room Air 07/11/19 13:00 Pulse 89 07/11/19 00:00 Intake Total 2660 ml Output Total 1800 ml Balance 860 ml Constitutional: AAO x 3, well-developed, other (thin appearing) Respiratory: No accessory muscle use; other (good bilat air entry, somewhat diminished at the bases) Cardiovascular: regular rate-rhythm, S1 and S2, systolic murmur (soft LIBERTY at card base) Gastrointestional: No tender; soft; No guarding, No rebound, No audible bowel sounds Extremities: No clubbing, No cyanosis, No significant edema Neurologic/Psychiatric: oriented x 3, other (moves all limbs equally) Skin: No rash on exposed areas, No ulcerations on exposed areas Results/Procedures: Labs Laboratory Tests 07/10/19 16:07: Glucometer 109 07/10/19 19:53: Glucometer 115H 07/11/19 03:15: White Blood Count 3.5L, Red Blood Count 3.17L, Hemoglobin 8.6L, Hematocrit 28L, Mean Corpuscular Volume 87, Mean Corpuscular Hemoglobin 27, Mean Corpuscular Hemoglobin Concent 31L, Red Cell Distribution Width 17.6H, Platelet Count 211, Mean Platelet Volume 9.6, Neutrophils (%) (Auto) 70, Lymphocytes (%) (Auto) 13, Monocytes (%) (Auto) 16H, Eosinophils (%) (Auto) 1, Basophils (%) (Auto) 1, Neutrophils # (Auto) 2.4, Lymphocytes # (Auto) 0.5L, Monocytes # (Auto) 0.6, Eosinophils # (Auto) 0.0, Basophils # (Auto) 0.0, Sodium Level 139, Potassium Level 4.0, Chloride Level 108H, Carbon Dioxide Level 20L, Anion Gap 11, Blood Urea Nitrogen 7, Creatinine 0.52L, Estimat Glomerular Filtration Rate > 60, BUN/Creatinine Ratio 13, Glucose Level 80, Calcium Level 7.7L, Phosphorus Level 5.6H, Magnesium Level 1.9 07/11/19 05:15: Glucometer 85 07/11/19 09:06: Glucometer 93 07/11/19 11:37: Glucometer 100 Microbiology 07/08/19 Blood Culture - Preliminary, Resulted No growth 07/08/19 Influenza Types A,B Antigen (WALE) - Final, Complete 07/08/19 Urine Culture - Final, Complete Proteus mirabilis Laboratory Tests 07/10/19 02:52 07/11/19 03:15 A/P: Assessment: UTI and pneumonia with sepsis, managed by the Hospitalist and Pulmonology Services H/o PAF that has chronically been treated with flecainide (pt states years, but doesn't who started it when). OAC held in 2019 because of severe anemia of undetermined etiology Echo of 07/11/19: LVEF 60-65%, mild MR, mod AI, mild to mod TR, grade 2 mccullough dysfunction, RVSP 47 mmHg Severe anemia of undetermined etiology Generalized malaise Plan: * We were able to get records from hospitalization at [facility] in 2019. I reviewed these in detail. It does not add to what we have listed above. It confirms that she had been on flecainide then, too * There does not appear to have been recent coronary eval. Given that she has nonspecific symptoms and that she is on flecainide (which would be contraindicated in presence of cor ischemia) we recommend cor risk strat. She won't be able to walk a treadmill (too weak). We recommend pharmacologic MPI * Keep on tele to monitor rhythm * W/u for anemia * If anemia not due to bleed, then resume apixaban, given her h/o PAF * I discussed all of the above in detail with her and her family and answered questions ANA FINLEY MD FACP FAC CCDS Jul 11, 2019 14:28 POS
[2019-07-11 16:00] VITALS: BP 161/53
[2019-07-11 20:00] VITALS: BP 122/63
[2019-07-11] MEDS: MIRTAZAPINE 15 MG (REMERON) TAB PO SCH (20:15)
[2019-07-11] MEDS: LEVOFLOXACIN 500 MG/100 ML IV 100 ML IV SCH (20:15)
[2019-07-12] VITALS: BP 136/55
[2019-07-12 03:54] VITALS: BP 151/52
[2019-07-12 03:57] LABS: BASOPHILS % (AUTO) 0 % (0-10); EOSINOPHILS % (AUTO) 1 % (0-10); HEMATOCRIT 25 % (35-52); HEMOGLOBIN 7.8 G/DL (11.5-16.0); LYMPHOCYTES # (AUTO) 0.4 X 10^3 (1.0-4.0); LYMPHOCYTES % (AUTO) 9 % (12-44); MEAN CORPUSCULAR HEMOGLOBIN 27 PG (25-34); MEAN CORPUSCULAR HGB CONC 31 G/DL (32-36); MEAN CORPUSCULAR VOLUME 87 FL (80-99); MEAN PLATELET VOLUME 9.9 FL (7.4-10.4); MONOCYTES # (AUTO) 0.7 X 10^3 (0.0-1.0); MONOCYTES % (AUTO) 15 % (0-12); NEUTROPHILS # (AUTO) 3.5 X 10^3 (1.8-7.8); NEUTROPHILS % (AUTO) 75 % (42-75); PLATELET COUNT 221 10^3/uL (130-400); RED CELL DISTRIBUTION WIDTH 17.7 % (10.0-14.5); WHITE BLOOD COUNT 4.6 10^3/uL (4.3-11.0)
[2019-07-12 04:23] LABS: BUN/CREATININE RATIO 13; CALCIUM 7.9 MG/DL (8.5-10.1); CARBON DIOXIDE 22 MMOL/L (21-32); CHLORIDE 106 MMOL/L (98-107); CREATININE SERUM 0.61 MG/DL (0.60-1.30); GFR ESTIMATED > 60; GLUCOSE 94 MG/DL (70-105); POTASSIUM 3.8 MMOL/L (3.6-5.0); SODIUM 137 MMOL/L (135-145)
--- NOTE | 2019-07-12 04:56 | Pulmonary Progress Note ---
Sepsis Event Evaluation Height, Weight, BMI Height: '" Weight: lbs. oz. kg; 19.77 BMI Method:Estimated Exam Exam Vital Signs Date Time Temp Pulse Resp B/P (MAP) Pulse Ox O2 Delivery O2 Flow Rate FiO2 07/12/19 03:54 36.1 77 14 151/52 (85) 95 Room Air 07/12/19 03:17 Room Air 07/12/19 00:41 69 07/12/19 00:00 36.4 79 14 136/55 (82) 97 Room Air 07/12/19 00:00 Room Air 07/11/19 20:00 Room Air 07/11/19 20:00 36.4 71 14 122/63 (82) 94 Room Air 07/11/19 20:00 Room Air 07/11/19 19:00 72 07/11/19 16:12 Room Air 07/11/19 16:00 36.5 78 18 161/53 (89) 95 07/11/19 16:00 36.5 07/11/19 13:00 89 07/11/19 12:00 Room Air 07/11/19 12:00 39.0 88 20 157/55 (89) 96 07/11/19 11:47 37.6 07/11/19 11:44 39.0 07/11/19 08:00 96 Room Air 07/11/19 08:00 Room Air 07/11/19 08:00 36.8 87 18 183/69 (107) 96 Room Air 07/11/19 07:00 87 I & O0 07/12/19 07:00 Intake Total 2575 ml Output Total 850 ml Balance 1725 ml Height & Weight Height: '" Weight: lbs. oz. kg; 19.77 BMI Method:Estimated General Appearance: No Apparent Distress, WD/WN, Thin HEENT: PERRL/EOMI, Moist Mucous Membranes; No Scleral Icterus (L), No Scleral Icterus (R) Neck: Normal Inspection, Supple Respiratory: Lungs Clear, No Respiratory Distress Cardiovascular: Regular Rate, Rhythm, No Murmur Capillary Refill: Less Than 3 Seconds Gastrointestinal: normal bowel sounds, non tender, soft Extremity: Normal Capillary Refill, No Calf Tenderness, No Pedal Edema Neurologic/Psychiatric: Alert, Oriented x3 Skin: Warm/Dry, Other (erythema on cheeks) Results Lab Laboratory Tests 07/11/19 03:15 07/12/19 03:15 Assessment/Plan Assessment/Plan Pneumonia with atelectasis last temp was 07/11 at 1200 -Continue Levaquin -Repeat CXR - Metabolic lactic acidosis -IVF NS currently at 50cc/hr UTI -Continue Levaquin - Anemia Chronic afib NIDDM HARLEY GAMA DO Jul 12, 2019 04:56 POS
[2019-07-12] MEDS: inSUlin ASPART (NovoLOG) 1 UNIT/0.01 ML (CHARGE PER UNIT) SC SCH ×2 (05:27→11:20)
[2019-07-12] MEDS: LACTOBACILLUS ACIDOPHILUS (PROBIOTIC) CAPSULE PO SCH ×2 (06:28→12:56)
[2019-07-12] MEDS: ASPIRIN E.C. 81 MG (ECOTRIN) TAB PO SCH (07:49)
[2019-07-12] MEDS: PANTOPRAZOLE 40 MG (PROTONIX) VIAL IV SCH (07:49)
[2019-07-12] MEDS: CARVEDILOL 6.25 MG (COREG) TAB PO SCH (07:49)
[2019-07-12] MEDS: FLECAINIDE 100 MG (TAMBOCOR) TAB PO SCH (07:49)
[2019-07-12 08:00] VITALS: BP 176/66
--- NOTE | 2019-07-12 08:13 | Diagnostic Imaging Report ---
Indication: Shortness of breath Portable chest 5:28 AM Heart size and pulmonary vascularity are normal. There are infiltrates or atelectasis at both lung bases with probable tiny effusions. These have increased since 07/08/2019. Impression: Bilateral basilar consolidations with small effusions. Pneumonia cannot be excluded. Dictated by: Dictated on workstation # [id number]
--- NOTE | 2019-07-12 09:28 | Progress Note - Cardiology ---
Cardiology SOAP Progress Note Subjective: Lying in bed. Denies any c/o dyspnea, CP or palpitations. C/O fatigue. Objective: I&O/Vital Signs 07/12/19 07/12/19 07/12/19 07/12/19 03:17 03:54 07:00 08:00 Temp 36.1 Pulse 77 88 Resp 14 B/P (MAP) 151/52 (85) Pulse Ox 95 O2 Delivery Room Air Room Air Room Air 07/12/19 07/12/19 07/12/19 07/12/19 08:00 08:00 11:18 11:21 Temp 36.8 38.1 Pulse 94 89 Resp 18 18 B/P (MAP) 176/66 (102) 137/62 (87) Pulse Ox 94 92 O2 Delivery Room Air Room Air Room Air Room Air 07/12/19 12:00 O2 Delivery Room Air 07/12/19 00:00 Intake Total 775 ml Output Total 500 ml Balance 275 ml Constitutional: AAO x 3, well-developed, other (thin appearing) Respiratory: No accessory muscle use; other (good bilat air entry, somewhat diminished at the bases) Cardiovascular: regular rate-rhythm, S1 and S2, systolic murmur (soft LIBERTY at card base) Gastrointestional: No tender; soft; No guarding, No rebound, No audible bowel sounds Extremities: No clubbing, No cyanosis, No significant edema Neurologic/Psychiatric: oriented x 3, other (moves all limbs equally) Skin: No rash on exposed areas, No ulcerations on exposed areas Results/Procedures: Labs Laboratory Tests 07/11/19 16:50: Glucometer 112H 07/11/19 20:15: Glucometer 137H 07/12/19 03:15: White Blood Count 4.6, Red Blood Count 2.91L, Hemoglobin 7.8L, Hematocrit 25L, Mean Corpuscular Volume 87, Mean Corpuscular Hemoglobin 27, Mean Corpuscular Hemoglobin Concent 31L, Red Cell Distribution Width 17.7H, Platelet Count 221, Mean Platelet Volume 9.9, Neutrophils (%) (Auto) 75, Lymphocytes (%) (Auto) 9L, Monocytes (%) (Auto) 15H, Eosinophils (%) (Auto) 1, Basophils (%) (Auto) 0, Neutrophils # (Auto) 3.5, Lymphocytes # (Auto) 0.4L, Monocytes # (Auto) 0.7, Eosinophils # (Auto) 0.0, Basophils # (Auto) 0.0, Sodium Level 137, Potassium Level 3.8, Chloride Level 106, Carbon Dioxide Level 22, Anion Gap 9, Blood Urea Nitrogen 8, Creatinine 0.61, Estimat Glomerular Filtration Rate > 60, BUN/Creatinine Ratio 13, Glucose Level 94, Calcium Level 7.9L 07/12/19 10:53: Glucometer 98 Microbiology 07/08/19 Blood Culture - Preliminary, Resulted No growth 07/08/19 Influenza Types A,B Antigen (WALE) - Final, Complete 07/08/19 Urine Culture - Final, Complete Proteus mirabilis Laboratory Tests 07/11/19 03:15 07/12/19 03:15 Procedures NAME: ASAF TA [facility] REC#: [id number] PT STATUS: ADM IN : 1945 PHYSICIAN: HARLEY GAMA DO ADMIT DATE: 07/08/19/[facility] Signed Date of Exam: 07/12/19 CHEST 1 VIEW, AP/PA ONLY Indication: Shortness of breath Portable chest 5:28 AM Heart size and pulmonary vascularity are normal. There are infiltrates or atelectasis at both lung bases with probable tiny effusions. These have increased since 07/08/2019. Impression: Bilateral basilar consolidations with small effusions. Pneumonia cannot be excluded. Dictated by: Dictated on workstation # [id number] Dict: 07/12/19809 Trans: 07/12/19810 Interpreted by: PETTY BROWN MD Electronically signed by: PETTY BROWN MD 07/12/19810 A/P: Assessment: UTI and pneumonia with sepsis, managed by the Hospitalist and Pulmonology Services H/o PAF that has chronically been treated with flecainide (pt states years, but doesn't who started it when). OAC held in 2019 because of severe anemia of undetermined etiology Echo of 07/11/19: LVEF 60-65%, mild MR, mod AI, mild to mod TR, grade 2 mccullough dysfunction, RVSP 47 mmHg Severe anemia of undetermined etiology. Stool positive for occult blood during this admission, as reported to us by Dr Alba (her hospitalist) - Dr. Payne of Hematology/Oncology managing Generalized malaise Plan: * There does not appear to have been recent coronary eval. Given that she has nonspecific symptoms and that she is on flecainide (which would be contraindicated in presence of cor ischemia) we recommend cor risk strat. She won't be able to walk a treadmill (too weak). We recommend pharmacologic MPI - will schedule for tomorrow * Keep on tele to monitor rhythm * W/u for anemia - Dr. Payne has been consulted * Occult (+) stool on 07-10-19 - We have spoken with Dr. Alba of hospitalist services and he advising against OAC tx at this time * Worsening anemia today * We have discussed all of the above in detail with her and her family and answered questions Physician Assessment Physician Assessment Malaise improved. No cp or shortness of breath Denies palp or syncope Lungs: fair to good air entry Cor: reg Ext: no c/c/e A&R * As documented in our note above that I updated (italics) and as noted below * Complex management * Advise cor w/u * Dr Alba advises against OAC because of GI bleed (stool positive for occult blood) * Outpt cardiac f/u advised DAVINA TRONCOSO Jul 12, 2019 09:28 ANA BARBER MD FACP [facility] 13:27 POS
[2019-07-12] MEDS ORDERED: REGADENOSON 0.4 MG/5 ML SYR (LEXISCAN) IV ONE (09:30)
--- NOTE | 2019-07-12 11:18 | Discharge Summary ---
Discharge Summary Reconcile Patient Problems Problems Reviewed?: Yes Hospital Course Hospital Course Date of Admission: Jul 08, 2019 at 20:30 Admission Diagnosis : Severe sepsis Family Physician/Provider: No,Local Physician Date of Discharge: 07/12/19 Discharge Diagnosis: Severe sepsis due to pneumonia and urinary tract infection Hospital Course: She Hawkins is a 74yoF who presented from [facility] with fever and tachycardia and was admitted with severe sepsis due to pneumonia and urinary tract infection. Her lactic acidosis quickly resolved. She was treated with IV antibiotics and was transitioned to oral antibiotics on discharge. Her course was complicated by anemia. She had a positive FOBT. She has had an occult bleed with unrevealing en doscopy. Hematology was consulted and we will refer her to Dr. Pereira for possible capsule endoscopy. She will also follow up with Dr. Davis for a Lexiscan to evaluate for coronary artery disease as she is on Flecanide and there is no record of CAD evaluation. She was discharged back to [facility]. Labs and Pending Lab Test: Laboratory Tests 07/11/19 11:37: Glucometer 100 07/11/19 16:50: Glucometer 112H 07/11/19 20:15: Glucometer 137H 07/12/19 03:15: White Blood Count 4.6, Red Blood Count 2.91L, Hemoglobin 7.8L, Hematocrit 25L, Mean Corpuscular Volume 87, Mean Corpuscular Hemoglobin 27, Mean Corpuscular Hemoglobin Concent 31L, Red Cell Distribution Width 17.7H, Platelet Count 221, Mean Platelet Volume 9.9, Neutrophils (%) (Auto) 75, Lymphocytes (%) (Auto) 9L, Monocytes (%) (Auto) 15H, Eosinophils (%) (Auto) 1, Basophils (%) (Auto) 0, Neutrophils # (Auto) 3.5, Lymphocytes # (Auto) 0.4L, Monocytes # (Auto) 0.7, Eosinophils # (Auto) 0.0, Basophils # (Auto) 0.0, Sodium Level 137, Potassium Level 3.8, Chloride Level 106, Carbon Dioxide Level 22, Anion Gap 9, Blood Urea Nitrogen 8, Creatinine 0.61, Estimat Glomerular Filtration Rate > 60, BUN/Creatinine Ratio 13, Glucose Level 94, Calcium Level 7.9L 07/12/19 10:53: Glucometer 98 Microbiology 07/08/19 Blood Culture - Preliminary, Resulted No growth 07/08/19 Influenza Types A,B Antigen (WALE) - Final, Complete 07/08/19 Urine Culture - Final, Complete Proteus mirabilis Home Meds Active Reported Pulmicort (Budesonide) 0.5 Mg/2 Ml Ampul.neb 0.5 Mg NEB BID Miralax (Polyethylene Glycol 3350) 17 Gm Powd.pack 17 Gm PO DAILY PRN Preservision Areds Tablet (Vit A/Vit C/Vit E/Zinc/Copper) 1 Each Tablet 1 Tab PO DAILY Vitamin D3 (Cholecalciferol (Vitamin D3)) 5,000 Unit Capsule 5,000 Unit PO DAILY Tylenol (Acetaminophen) 325 Mg Tablet 650 Mg PO Q4H PRN Metformin HCl 500 Mg Tablet 500 Mg PO DAILY Senna Plus Tablet (Sennosides/Docusate Sodium) 1 Each Tablet 1 Tab PO BID PRN Calcium 600 + Vit D 200 Tablet (Calcium Carbonate/Vitamin D3) 1 Each Tablet 1 Tab PO DAILY Premarin (Estrogens Conjugated) 0.45 Mg Tab 0.45 Mg PO DAILY Atorvastatin Calcium 20 Mg Tablet 20 Mg PO HS Coreg (Carvedilol) 6.25 Mg Tablet 6.25 Mg PO BID Mirtazapine 15 Mg Tablet 15 Mg PO HS Celexa (Citalopram Hydrobromide) 10 Mg Tablet 10 Mg PO BID Iprat-Albut 0.5-3(2.5) mg/3 ml (Ipratropium/Albuterol Sulfate) 3 Ml Ampul.neb 3 Ml NEB QID Pantoprazole Sodium 40 Mg Tablet. 40 Mg PO DAILY Furosemide 20 Mg Tablet 20 Mg PO DAILY Flecainide Acetate 100 Mg Tablet 100 Mg PO BID Ferrous Sulfate 325 Mg Tablet 325 Mg PO DAILY Aspir 81 (Aspirin) 81 Mg Tablet. 81 Mg PO DAILY Eliquis (Apixaban) 5 Mg Tablet 5 Mg PO BID Instructions to Patient/Family Assessment/Instructions Take medications as prescribed. Stop Eliquis. Follow up with Dr. Pereira for further evaluation of GI bleeding. Follow up with Dr. Davis for atrial fibrillation. You are scheduled for a stress test tomorrow. Skilled NF Admit to: [facility] Certification (SNF) I certify that SNF services are required to be given on an inpatient basis because of the above named patient's need for residential care on a continuing basis for the conditions(s) for which he/she was receiving inpatient hospital services prior to his/her transfer to the SNF. [facility] Facility Order: Nursing Services, Evaluator Transfer Students-Evaluate & Treat, Physical Therapy-Evaluate & Treat, Speech Language-Evaluate & Treat Oxygen Delivery Method: Room Air Discharge Diet: No Restrictions Daily Activity as Tolerated: Yes Resuscitation Status: Full Code Denisa Esquivel Jul 12, 2019 11:12 Pneu Vac Indicated: Yes Discharge Physical Exam General: Alert, Oriented X3, Cooperative, No Acute Distress HEENT: Atraumatic, EOMI, Mucous Memb Moist/[place] Lungs: Clear to Auscultation, Normal Air Movement Heart: Regular Rate, Normal S1, Normal S2, No Murmurs Abdomen: Normal Bowel Sounds, Soft, No Tenderness Extremities: No Edema, No Tenderness/Swelling Skin: No Rashes, No Significant Lesion Neuro: Normal Speech, Normal Tone Psych/Mental Status: Mental Status NL, Mood NL DENISA ESQUIVEL MD Jul 12, 2019 11:18 POS
--- NOTE | 2019-07-12 11:20 | NUR ---
RD ASSESSMENT PMHx: afib; HTN; GERD; DM PT INTERACTION: Pt was awake and pleasant during consult for poor PO intake. Pt states her appetite is pretty good and she eats "about half of what is on the plate. If I eat any more, I would be sick." Note pt avg PO intake of 50% x3d, per chart review. Pt states no recent issues with n/v/c/d at this time. Note last BM was 07/10 and pt currently on bowel regimen of miralax, senna, per chart review. ABNORMAL NUTRITION-RELATED LAB VALUES: labs WNL Est. kcal needs: 1620-1058 kcal (30-35 kcal/kg) Est. Pro needs: 56-67 g Pro (1.0-1.2 g Pro/kg) PES STATEMENT: Inadequate oral intake (NI-2.1) related to loss of appetite as evidenced by pt interview | avg PO intake of 50% x3d INTERVENTION: Continue with current diet order of Regular diet. Pt may benefit from nutrition supplementation, if PO intake declines below 50%. Encouraged pt to eat when able. MONITOR/EVALUATE: PO Intake; Plan of Care; Hydration Status; Weight Status; Lab Values Kosta Rodriguez, MS, RD, LD
[2019-07-12 11:21] VITALS: BP 137/62
[2019-07-12] MEDS ORDERED: LEVO750T9 PO (11:37)
--- NOTE | 2019-07-12 12:04 | NUR ---
CM FINALIZED DISCHARGE: Patient will discharge today to [facility] for skilled PT, OT, ST, et Nursing. Finalized discharge orders have been faxed to [facility] et red discharge packet have been made. Dr. Payne would like for She to have a follow up appt with Dr. Pereira for a capsule endoscopy. This procedure takes prior authorization and so they have requested that I faxed information to them before they will set up a follow up appointment with them. attn. Leanna. central office supervisor time has been set for 2p.m. She has clothes, coat, et is on room air. She will be picked up by [facility] staff. I will update appropriate staff with outcome of Dr. Pereira appointment.
--- NOTE | 2019-07-12 12:54 | NUR ---
Report called to [facility] RN who will assume pt care on pt discharge at 2pm this afternoon. VSS at this time. Pt currently tearful about returning to home and changes in environment. Family at bedside for reassurance. Personal belongings with pt at this time. Will await [facility] transport at this time.
--- NOTE | 2019-07-12 14:28 | NUR ---
Pt discharged to [facility] staff at this time. Pt transported via wheelchair to staff transport at this time. Discharge instructions given to staff at time of transfer. Personal belongings with pt at time of transfer.
--- NOTE | 2019-07-12 15:37 | NUR ---
F/U with [facility] staff Adriane nurse about attempt to make a f/u appointment with Dr. Pereira. I left contact numbers with Adriane for continued f/u to schedule this appointment. I also called et spoke with Dr. Pereira's staff Oriana and gave her [facility] contact number for continued f/u.
== END 2019-07-12 14:30 | DRG 871 ==
LOC: EDUNIT# 19:04 → ER 19:06 → ICU 20:30 → CSD 07-09 15:13
PROVIDERS: ADMIT Internal Medicine; ATTEND Internal Medicine
DX: A41.9 Sepsis, unspecified organism (principal); J18.9 Pneumonia, unspecified organism; N30.00 Acute cystitis without hematuria; I48.20 Chronic atrial fibrillation, unspecified; E87.2 Acidosis; J44.0 Chronic obstructive pulmonary disease with (acute) lower respiratory infection; E46 Unspecified protein-calorie malnutrition; Z68.1 Body mass index [BMI] 19.9 or less, adult; R65.20 Severe sepsis without septic shock; D64.9 Anemia, unspecified; E11.9 Type 2 diabetes mellitus without complications; Z79.82 Long term (current) use of aspirin; Z79.01 Long term (current) use of anticoagulants; E83.42 Hypomagnesemia; E83.51 Hypocalcemia; I10 Essential (primary) hypertension; F41.9 Anxiety disorder, unspecified; F32.9 Major depressive disorder, single episode, unspecified; M06.9 Rheumatoid arthritis, unspecified; K21.9 Gastro-esophageal reflux disease without esophagitis; Z90.49 Acquired absence of other specified parts of digestive tract; Z90.710 Acquired absence of both cervix and uterus; I48.0 Paroxysmal atrial fibrillation; E87.6 Hypokalemia; Z66 Do not resuscitate; I08.3 Combined rheumatic disorders of mitral, aortic and tricuspid valves; B96.4 Proteus (mirabilis) (morganii) as the cause of diseases classified elsewhere
CPT/HCPCS: 36415; 71045; 80048; 80053; 81000; 82140; 82150; 82274; 82550; 82553; 82607; 82728; 82746; 82962; 83540; 83605; 83690; 83735; 83874; 83880; 84100; 84443; 84484; 85007; 85025; 85027; 85045; 85610; 85730; 86850; 86900; 86901; 86920; 87040; 87077; 87088; 87186; 87804; 93005; 93041; 93306

== ENCOUNTER → 2019-07-13 | Outpatient (CLI) | payer MEDICARE, OTHER ==
[~2019-07-13] VITALS: Ht 167 cm; Wt 61.0 kg
[~2019-07-13] MED LIST changes: +ACET325T38 PO; +APIX5TAB PO; +ASPI-586 PO; +ATOR20TA66 PO; +BETA1TAB15 PO; +BUDE0.5A7 NEB; +CALC-6 PO; +CALC1TAB94; +CARV6.25 PO; +CATHETER FLUSH 10 ML SYR IV PRN; +CHOL5000 PO; +CITA10TA12 PO; +FERR325T18 PO; +FLEC100T PO; +FURO20TA4 PO; +IPRA3AMP31 NEB; +LEVO750T9 PO; +METF-397 PO; +METF500T8; +MIRT15TA6 PO; +NFESTCO.45 PO; +PANT40TA3 PO; +POLY17PO6 PO; +REGADENOSON 0.4 MG/5 ML SYR (LEXISCAN) IV ONE; +SENN-233 PO; +SENN-36
[2019-07-13 09:22] VITALS: BP 159/58
[2019-07-13 09:23] VITALS: BP 159/40
--- NOTE | 2019-07-13 14:29 | STRESS TEST ---
DATE OF SERVICE: 07/13/2019 RESTING AND POST REGADENOSON TECHNETIUM-99M TETROFOSMIN SPECT CT IMAGING CLINICAL DIAGNOSIS: Shortness of breath. ORDERING PHYSICIAN: Gauri Zamora APRN PRIMARY PHYSICIAN: Dr. Wong. Baseline images were carried out after injection of 10.28 mCi of technetium-99m Tetrofosmin. This was followed by 0.4 mg regadenoson and 29.3 mCi of technetium-99m Tetrofosmin for stress imaging. The electrocardiogram showed sinus rhythm at baseline. The electrocardiogram did not change significantly with the regadenoson infusion. The patient tolerated the procedure well. The patient noted some shortness of breath following regadenoson infusion, which resolved in a few minutes. Review of images at rest and following stress does not indicate any significant perfusion defects consistent with myocardial ischemia or infarction. Left ventricular ejection fraction is calculated to be 67%. Left ventricular end diastolic volume is 47 mL. TID is absent (0.82). CONCLUSIONS: 1. No evidence of any significant myocardial ischemia or infarction on this study. 2. Normal regional wall motion. 3. Normal global left ventricular systolic function with a calculated ejection fraction of 67%. 4. Normal left ventricular cavity size. Job ID: [id number] DocumentID: [id number] Dictated Date: 07/13/2019 14:21:07 Rn Telemetry Date: 07/13/2019 14:27:19 Dictated By: ANA FINLEY MD, MA, FACP, FACC,
== END ==
LOC: CARD 06:49
PROVIDERS: ATTEND Nurse Practitioner Family
DX: R06.00 Dyspnea, unspecified (principal); R06.02 Shortness of breath
CPT/HCPCS: 78452; 93017

== ENCOUNTER → 2019-07-14 | Outpatient (REF) | payer MEDICARE, OTHER ==
[~2019-07-14] MED LIST changes: -CATHETER FLUSH 10 ML SYR IV PRN; -REGADENOSON 0.4 MG/5 ML SYR (LEXISCAN) IV ONE
[2019-07-14 18:14] LABS: BILIRUBIN,URINE NEGATIVE (NEGATIVE); CLARITY,URINE SL CLOUDY; COLOR,URINE YELLOW; GLUCOSE, URINE (UA) NEGATIVE (NEGATIVE); KETONES,URINE NEGATIVE (NEGATIVE); LEUKOCYTE ESTERASE ,URINE NEGATIVE (NEGATIVE); NITRITE,URINE NEGATIVE (NEGATIVE); PH,URINE 5.5 (5-9); PROTEIN,URINE NEGATIVE (NEGATIVE)
[2019-07-14 18:16] LABS: BASOPHILS % (AUTO) 1 % (0-10); EOSINOPHILS % (AUTO) 0 % (0-10); HEMATOCRIT 22 % (35-52); LYMPHOCYTES # (AUTO) 0.4 X 10^3 (1.0-4.0); LYMPHOCYTES % (AUTO) 8 % (12-44); MEAN CORPUSCULAR HGB CONC 31 G/DL (32-36); MEAN CORPUSCULAR VOLUME 87 FL (80-99); MEAN PLATELET VOLUME 9.9 FL (7.4-10.4); MONOCYTES # (AUTO) 1.1 X 10^3 (0.0-1.0); MONOCYTES % (AUTO) 26 % (0-12); NEUTROPHILS # (AUTO) 2.7 X 10^3 (1.8-7.8); NEUTROPHILS % (AUTO) 65 % (42-75); PLATELET COUNT 198 10^3/uL (130-400); RED CELL DISTRIBUTION WIDTH 18.3 % (10.0-14.5); WHITE BLOOD COUNT 4.2 10^3/uL (4.3-11.0)
[2019-07-14 18:25] LABS: MEAN CORPUSCULAR HEMOGLOBIN 26 PG (25-34)
[2019-07-14 18:27] LABS: WBC,URINE RARE /HPF
[2019-07-14 18:28] LABS: BACTERIA,URINE TRACE /HPF
[2019-07-14 18:31] LABS: HEMOGLOBIN 6.7 G/DL (11.5-16.0)
[2019-07-14 18:35] LABS: ALANINE AMINOTRANSFERASE 9 U/L (0-55); ALKALINE PHOSPHATASE 108 U/L (40-136); BILIRUBIN,TOTAL 1.1 MG/DL (0.1-1.0); BUN/CREATININE RATIO 13; CALCIUM 7.5 MG/DL (8.5-10.1); CARBON DIOXIDE 26 MMOL/L (21-32); CHLORIDE 100 MMOL/L (98-107); CREATININE SERUM 0.67 MG/DL (0.60-1.30); GFR ESTIMATED > 60; GLUCOSE 95 MG/DL (70-105); POTASSIUM 3.1 MMOL/L (3.6-5.0); SODIUM 134 MMOL/L (135-145); TOTAL PROTEIN 4.8 GM/DL (6.4-8.2)
[2019-07-14 19:26] LABS: ANISOCYTOSIS SLIGHT; BAND NEUTROPHILS 9 %; BASOPHILS % (MANUAL) 0 %; EOSINOPHILS % (MANUAL) 0 %; HYPOCHROMASIA SLIGHT; LYMPHOCYTES % (MANUAL) 6 %; MICROCYTOSIS SLIGHT; MONOCYTES % (MANUAL) 24 %; NEUTROPHILS % (MANUAL) 61 %; TOXIC GRANULATION/VACUOLAZATIO 1+
== END ==
LOC: CVS 18:03
PROVIDERS: ATTEND Physician Assistant
DX: N39.0 Urinary tract infection, site not specified (principal); D64.9 Anemia, unspecified
CPT/HCPCS: 80053; 81000; 85007; 85027

== ENCOUNTER 2019-07-16 08:59 | Outpatient (CLI) | payer MEDICARE, OTHER ==
[2019-07-16] MEDS ORDERED: NS IV 500 ML 500 ML IV SCH (09:15)
[2019-07-16 11:35] VITALS: BP 120/37
[2019-07-16 11:50] VITALS: BP 120/37
[2019-07-16 14:10] VITALS: BP 115/44
[2019-07-16 14:36] LABS: HEMOGLOBIN 7.7 G/DL (11.5-16.0)
[2019-07-16 15:03] VITALS: BP 95/46
== END 2019-07-16 14:55 | disposition home or self-care (01) ==
LOC: SDC 08:59
PROVIDERS: ATTEND Physician Assistant
DX: J18.9 Pneumonia, unspecified organism (principal); N39.0 Urinary tract infection, site not specified; D64.9 Anemia, unspecified; R13.10 Dysphagia, unspecified; R60.9 Edema, unspecified
CPT/HCPCS: 36415; 36430; 85014; 85018; 86850; 86900; 86901; 86920

== ENCOUNTER 2019-07-22 07:45 | Outpatient (CLI) | payer MEDICARE, OTHER ==
[~2019-07-22] VITALS: Wt 61.0 kg
[2019-07-22] VITALS (7 sets, daily range): BP systolic 115–137; BP diastolic 39–53
[2019-07-22] MEDS ORDERED: FUROSEMIDE 40 MG/4 ML INJ (LASIX) IV NR (08:15)
[2019-07-22] MEDS ORDERED: NS IV 1000 ML 1,000 ML IV SCH (08:15)
[2019-07-22 15:49] LABS: HEMOGLOBIN 9.5 G/DL (11.5-16.0)
== END 2019-07-22 16:10 | disposition home or self-care (01) ==
LOC: SDC 07:45
PROVIDERS: ATTEND Nurse Practitioner
DX: D64.9 Anemia, unspecified (principal)
CPT/HCPCS: 36415; 36430; 85014; 85018; 86850; 86900; 86901; 86920

== ENCOUNTER 2019-07-27 15:52 | Inpatient (IN) | payer MEDICARE, OTHER ==
[2019-07-27] VITALS (17 sets, daily range): BP systolic 93–130; BP diastolic 38–71
[~2019-07-27] VITALS: Ht 168 cm; Wt 71.2 kg
[2019-07-27] MEDS ORDERED: NS IV 1000 ML 1,000 ML IV SCH (16:03)
[2019-07-27 16:11] LABS: BASOPHILS % (AUTO) 0 % (0-10); EOSINOPHILS % (AUTO) 0 % (0-10); HEMATOCRIT 24 % (35-52); HEMOGLOBIN 7.6 G/DL (11.5-16.0); LYMPHOCYTES # (AUTO) 0.3 X 10^3 (1.0-4.0); LYMPHOCYTES % (AUTO) 7 % (12-44); MEAN CORPUSCULAR HEMOGLOBIN 29 PG (25-34); MEAN CORPUSCULAR HGB CONC 32 G/DL (32-36); MEAN CORPUSCULAR VOLUME 89 FL (80-99); MEAN PLATELET VOLUME 10.3 FL (7.4-10.4); MONOCYTES # (AUTO) 1.3 X 10^3 (0.0-1.0); MONOCYTES % (AUTO) 31 % (0-12); NEUTROPHILS # (AUTO) 2.6 X 10^3 (1.8-7.8); NEUTROPHILS % (AUTO) 62 % (42-75); PLATELET COUNT 79 10^3/uL (130-400); RED CELL DISTRIBUTION WIDTH 19.9 % (10.0-14.5); WHITE BLOOD COUNT 4.2 10^3/uL (4.3-11.0)
[2019-07-27] MEDS ORDERED: ACETAMINOPHEN 650 MG SUPP (TYLENOL) PR ONE (16:15)
[2019-07-27 16:21] LABS: CLARITY,URINE CLEAR; COLOR,URINE DARK YELLOW; GLUCOSE, URINE (UA) NEGATIVE (NEGATIVE); KETONES,URINE NEGATIVE (NEGATIVE); LEUKOCYTE ESTERASE ,URINE NEGATIVE (NEGATIVE); NITRITE,URINE NEGATIVE (NEGATIVE); PROTEIN,URINE 1+ (NEGATIVE)
[2019-07-27 16:25] LABS: INR 1.2 (0.8-1.4); PROTHROMBIN TIME PATIENT 16.1 SEC (12.2-14.7)
[2019-07-27 16:28] LABS: BILIRUBIN,URINE 1+ (NEGATIVE)
[2019-07-27 16:30] LABS: BACTERIA,URINE FEW /HPF; RBC,URINE 0-2 /HPF; SQUAMOUS EPITHELIAL CELL,UR RARE /HPF
[2019-07-27 16:31] LABS: ALANINE AMINOTRANSFERASE 7 U/L (0-55); ALKALINE PHOSPHATASE 96 U/L (40-136); BILIRUBIN,TOTAL 1.3 MG/DL (0.1-1.0); BUN/CREATININE RATIO 15; CALCIUM 7.5 MG/DL (8.5-10.1); CARBON DIOXIDE 32 MMOL/L (21-32); CHLORIDE 90 MMOL/L (98-107); CREATININE SERUM 0.62 MG/DL (0.60-1.30); GFR ESTIMATED > 60; GLUCOSE 99 MG/DL (70-105); POTASSIUM 2.8 MMOL/L (3.6-5.0); SODIUM 132 MMOL/L (135-145); TOTAL PROTEIN 4.7 GM/DL (6.4-8.2)
[2019-07-27] MEDS ORDERED: POTASSIUM CL 10MEQ/50ML IVPB 50 ML IV ONE (16:45)
[2019-07-27 16:47] LABS: BAND NEUTROPHILS 2 %; BASOPHILS % (MANUAL) 0 %; EOSINOPHILS % (MANUAL) 0 %; LYMPHOCYTES % (MANUAL) 10 %; MONOCYTES % (MANUAL) 22 %; NEUTROPHILS % (MANUAL) 66 %
[2019-07-27 16:48] LABS: ANISOCYTOSIS MODERATE; HYPOCHROMASIA SLIGHT; MICROCYTOSIS SLIGHT; POLYCHROMASIA SLIGHT
--- NOTE | 2019-07-27 16:58 | Diagnostic Imaging Report ---
EXAMINATION: Chest 1 view. HISTORY: Weakness. COMPARISON: 07/12/2019. FINDINGS: There are small bilateral pleural effusions. Right base consolidation appears similar to prior exam. No pneumothorax. Heart size is normal. IMPRESSION: 1. Unchanged right base consolidation with small bilateral pleural effusions concerning for pneumonia. Dictated by: Dictated on workstation # [id number]
[2019-07-27] MEDS ORDERED: MEROPENEM 1,000 MG in WATER (STERILE) FOR INJECTION 20 ML IV ONE (17:15)
--- NOTE | 2019-07-27 17:30 | NUR ---
1730 B/P READING NOT ACCURATE DUE TO TRYING TO GET A SECOND IV IN LT HAND.
[2019-07-27] MEDS ORDERED: fentaNYL INJECTION 100 MCG/2 ML AMP IVP ONE (17:45)
[2019-07-27] MEDS ORDERED: LACTATED RINGERS 1,000 ML IV ONE (17:55)
--- NOTE | 2019-07-27 18:38 | ED General ---
General Chief Complaint: General Problems/Pain Stated Complaint: RIGHT DENTAL ABSCESS Nursing Triage Note: PT TO RM [facility] BY [facility] FROM [facility] WITH CC OF WEAKNESS AND HARD TO WAKE UP. STATES SHE HAS NOT BEED EATING WELL LATELY. SHE HAS BEEN GETTING BLOOD RECENTLY HERE AT . Nursing Sepsis Screen: No Definite Risk Source of Information: Patient Exam Limitations: No Limitations History of Present Illness Date Seen by Provider: Jul 27, 2019 Time Seen by Provider: 15:53 Initial Comments This 74-year-old woman presents to the emergency room from [facility] with altered mental status and fever. Temperature has been up to 102.2 per EMS. Patient has been lethargic for EMS and retirement staff. She is disoriented on interview. [facility] was also concerned about low diastolic blood pressures. They report she is normally alert and oriented and is actually awaiting a unit in the independent living apartments. Blood sugar was 128. She uses oxygen chronically by nasal cannula. She was admitted to this hospital with severe sepsis July 08 with pneumonia and urinary tract infection. She grew Proteus that was sensitive to everything but nitrofurantoin. Family reports patient also has chronic anemia and has been getting transfusions approximately weekly. Apparently workup has not revealed any definite source of blood loss or causes of anemia. Allergies and Home Medications Allergies Coded Allergies: Cephalexin Monohydrate (Verified Allergy, Unknown, 07/08/19) Penicillins (Verified Allergy, Unknown, 07/08/19) iodine (Verified Allergy, Unknown, 07/08/19) prednisone (Verified Allergy, Unknown, 07/08/19) venlafaxine HCl (Verified Allergy, Unknown, 07/08/19) Home Medications Acetaminophen 325 Mg Tablet, 650 MG PO Q4H PRN for PAIN-MILD, (Reported) Aspirin 81 Mg Tablet.dr, 81 MG PO DAILY, (Reported) Atorvastatin Calcium 20 Mg Tablet, 20 MG PO HS, (Reported) Budesonide 0.5 Mg/2 Ml Ampul.neb, 0.5 MG NEB BID, (Reported) Calcium Carbonate/Vitamin D3 1 Each Tablet, 1 TAB PO DAILY, (Reported) Carvedilol 6.25 Mg Tablet, 6.25 MG PO BID, (Reported) Cholecalciferol (Vitamin D3) 5,000 Unit Capsule, 5,000 UNIT PO DAILY, (Reported) Citalopram Hydrobromide 10 Mg Tablet, 10 MG PO BID, (Reported) Estrogens Conjugated 0.45 Mg Tab, 0.45 MG PO DAILY, (Reported) Ferrous Sulfate 325 Mg Tablet, 325 MG PO DAILY, (Reported) Flecainide Acetate 100 Mg Tablet, 100 MG PO BID, (Reported) Furosemide 20 Mg Tablet, 20 MG PO DAILY, (Reported) Ipratropium/Albuterol Sulfate 3 Ml Ampul.neb, 3 ML NEB QID, (Reported) Levofloxacin 750 Mg Tablet, 750 MG PO DAILY Prescribed by: DENISA ESQUIVEL on 07/12/19 1137 Metformin HCl 500 Mg Tablet, 500 MG PO DAILY, (Reported) Mirtazapine 15 Mg Tablet, 15 MG PO HS, (Reported) Pantoprazole Sodium 40 Mg Tablet.dr, 40 MG PO DAILY, (Reported) Polyethylene Glycol 3350 17 Gm Powd.pack, 17 GM PO DAILY PRN for CONSTIPATION- 2ND LINE, (Reported) Sennosides/Docusate Sodium 1 Each Tablet, 1 TAB PO BID PRN for CONSTIPATION-6TH LINE, (Reported) Vit A/Vit C/Vit E/Zinc/Copper 1 Each Tablet, 1 TAB PO DAILY, (Reported) Patient Home Medication List Home Medication List Reviewed: Yes Review of Systems Review of Systems Constitutional: see HPI EENTM: no symptoms reported Respiratory: see HPI Cardiovascular: see HPI Gastrointestinal: no symptoms reported Genitourinary: see HPI : No Musculoskeletal: no symptoms reported Skin: no symptoms reported Psychiatric/Neurological: See HPI Hematologic/Lymphatic: See HPI Immunological/Allergic: no symptoms reported Past Devuans-Gnqolp-Yzemdg Hx Past Med/Social Hx: Reviewed and Corrections made Patient Social History Alcohol Use: Denies Use Recreational Drug Use: No Smoking Status: Never a Smoker 2nd Hand Smoke Exposure: No Recent Foreign Travel: No Contact w/Someone Who Travel: No Recent Infectious Disease Expo: No Recent Hopitalizations: Yes Physical Abuse: No Sexual Abuse: No Mistreated: No Fear: No Immunizations Up To Date Tetanus Booster (TDap): Unknown Date of Pneumonia Vaccine: May 03, 2009 Date of Influenza Vaccine: May 25, 2019 Seasonal Allergies Seasonal Allergies: Yes Past Medical History Surgeries: Yes Abdominal, Appendectomy, Bladder Surgery, Cardiac, Gallbladder, Hysterectomy Respiratory: Yes Pneumonia, COPD Cardiac: Yes Atrial Fibrillation, Hypertension, Valvular Heart Disease 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 Genitourinary: Yes (BLADDER PROLAPSE--S/P BLADDER SURGERIES WITH VAGINAL MESH) Bladder Infection Gastrointestinal: Yes (dysphagia) Gastroesophageal Reflux, Gastrointestinal Bleed, Chronic Constipation, Hiatal Hernia Musculoskeletal: Yes Rheumatoid Arthritis Endocrine: Yes Diabetes, Non-Insulin dep HEENT: No Cancer: No Psychosocial: Yes Anxiety, Depression Integumentary: No Blood Disorders: Yes (ANEMIA--UNKNOWN CAUSE) Adverse Reaction/Blood Tranf: No Family Medical History No Pertinent Family Hx Physical Exam-Suspected Sepsis Physical Exam Vital Signs Vital Signs - First Documented 07/27/19 15:55 Temp 38.2 Pulse 90 Resp 16 B/P (MAP) 116/50 (72) Pulse Ox 99 O2 Delivery Nasal Cannula O2 Flow Rate 2.00 Capillary Refill : Less Than 3 Seconds Blood Pressure Mean: 72 POS Height, Weight, BMI Height: '" Weight: lbs. oz. kg; 21.00 BMI Method:Estimated General Appearance: No Apparent Distress, WD/WN, Other (confused and ill- appearing) HEENT: PERRL/EOMI, Normal ENT Inspection, Other (mucous membranes dry) Neck: Normal Inspection Respiratory: Lungs Clear, Normal Breath Sounds, No Accessory Muscle Use, No Respiratory Distress Cardiovascular: Regular Rate, Rhythm, No Edema, No Murmur, Normal Peripheral Pulses Gastrointestinal: Normal Bowel Sounds, Non Tender, Soft Extremity: Normal Inspection, Pedal Edema (bilateral equal lower extremity pitting edema) Neurologic/Psychiatric: Alert, No Motor/Sensory Deficits, Normal Mood/Affect, director peoplesoft II-XII Norm as Tested, Other (disoriented but responds to questions) Skin: normal color, warm/dry Focused Exam Sepsis Stage: Severe Sepsis Possible Source: Pulmonary Lactate Level 07/27/19 15:55: Lactic Acid Level 1.74 Time of Focused Exam: 18:46 Respiratory: Lungs Clear, Normal Breath Sounds, No Accessory Muscle Use Cardiovascular: Regular Rate, Rhythm, No Murmur, Normal Peripheral Pulses, Other (bilateral lower extremity pitting edema) Capillary Refill: Less Than 3 Seconds Skin: normal color, warm/dry Lactic Acid Level Laboratory Tests Test 07/27/19 15:55 Lactic Acid Level 1.74 MMOL/L (0.50-2.00) Within 3hrs of presentation: Admin fluids, Admin 30ml/kg IBW due to BMI>30, Admin ABX, Blood cultures prior to ABX's, Focus exam, Lactate level Progress/Results/Core Measures Suspected Sepsis Recent Fever Within 48 Hours: Yes Infection Criteria Present: Documented Infection New/Unexplained Altered Menta: Yes Sepsis Screen: No Definite Risk SIRS Temperature: Pulse: 90 Respiratory Rate: 16 Laboratory Tests 07/27/19 15:55: White Blood Count 4.2L Blood Pressure 116 /50 Mean: 72 07/27/19 15:55: Lactic Acid Level 1.74 Laboratory Tests 07/27/19 15:55: Creatinine 0.62, INR Comment 1.2, Platelet Count 79L, Total Bilirubin 1.3H Results/Orders Lab Results Laboratory Tests Test 07/27/19 15:55 07/27/19 16:09 Range/Units White Blood Count 4.2 L 4.3-11.0 10^3/uL Red Blood Count 2.66 L 4.35-5.85 10^6/uL Hemoglobin 7.6 L 11.5-16.0 G/DL Hematocrit 24 L 35-52 % Mean Corpuscular Volume 89 80-99 FL Mean Corpuscular Hemoglobin 29 25-34 PG Mean Corpuscular Hemoglobin Concent 32 32-36 G/DL Red Cell Distribution Width 19.9 H 10.0-14.5 % Platelet Count 79 L 130-400 10^3/uL Mean Platelet Volume 10.3 7.4-10.4 FL Neutrophils (%) (Auto) 62 42-75 % Lymphocytes (%) (Auto) 7 L 12-44 % Monocytes (%) (Auto) 31 H 0-12 % Eosinophils (%) (Auto) 0 0-10 % Basophils (%) (Auto) 0 0-10 % Neutrophils # (Auto) 2.6 1.8-7.8 X 10^3 Lymphocytes # (Auto) 0.3 L 1.0-4.0 X 10^3 Monocytes # (Auto) 1.3 H 0.0-1.0 X 10^3 Eosinophils # (Auto) 0.0 0.0-0.3 10^3/uL Basophils # (Auto) 0.0 0.0-0.1 10^3/uL Neutrophils % (Manual) 66 % Lymphocytes % (Manual) 10 % Monocytes % (Manual) 22 % Eosinophils % (Manual) 0 % Basophils % (Manual) 0 % Band Neutrophils 2 % Polychromasia SLIGHT Hypochromasia SLIGHT Anisocytosis MODERATE Microcytosis SLIGHT Macrocytosis MODERATE Prothrombin Time 16.1 H 12.2-14.7 SEC INR Comment 1.2 0.8-1.4 Activated Partial Thromboplast Time 39 H 24-35 SEC Sodium Level 132 L 135-145 MMOL/L Potassium Level 2.8 L 3.6-5.0 MMOL/L Chloride Level 90 L 98-107 MMOL/L Carbon Dioxide Level 32 21-32 MMOL/L Anion Gap 10 5-14 MMOL/L Blood Urea Nitrogen 9 7-18 MG/DL Creatinine 0.62 0.60-1.30 MG/DL Estimat Glomerular Filtration Rate > 60 BUN/Creatinine Ratio 15 Glucose Level 99 70-105 MG/DL Lactic Acid Level 1.74 0.50-2.00 MMOL/L Calcium Level 7.5 L 8.5-10.1 MG/DL Corrected Calcium 9.1 8.5-10.1 MG/DL Total Bilirubin 1.3 H 0.1-1.0 MG/DL Aspartate Amino Transf (AST/SGOT) 29 5-34 U/L Alanine Aminotransferase (ALT/SGPT) 7 0-55 U/L Alkaline Phosphatase 96 40-136 U/L Total Protein 4.7 L 6.4-8.2 GM/DL Albumin 2.0 L 3.2-4.5 GM/DL Urine Color DARK YELLOW Urine Clarity CLEAR Urine pH 6.0 5-9 Urine Specific [place] 1.020 1.016-1.022 Urine Protein 1+ H NEGATIVE Urine Glucose (UA) NEGATIVE NEGATIVE Urine Ketones NEGATIVE NEGATIVE Urine Nitrite NEGATIVE NEGATIVE Urine Bilirubin 1+ H NEGATIVE Urine Urobilinogen 4.0 < = 1.0 MG/DL Urine Leukocyte Esterase NEGATIVE NEGATIVE Urine RBC (Auto) 1+ H NEGATIVE Urine RBC 0-2 /HPF Urine WBC NONE /HPF Urine Squamous Epithelial Cells RARE /HPF Urine Crystals NONE /LPF Urine Bacteria FEW H /HPF Urine Casts NONE /LPF Urine Mucus SMALL H /LPF Urine Culture Indicated CULTURE PENDING Micro Results Microbiology 07/27/19 Influenza Types A,B Antigen ([facility]) - Final, Complete My Orders Orders - ARIAN FERMIN MD Cbc With Automated Diff (07/27/19 16:03) Comprehensive Metabolic Panel (07/27/19 16:03) Blood Culture (07/27/19 16:03) Sputum Culture (07/27/19 16:03) Urinalysis (07/27/19 16:03) Urine Culture (07/27/19 16:03) Protime With Inr (07/27/19 16:03) Partial Thromboplastin Time (07/27/19 16:03) Chest 1 View, Ap/Pa Only (07/27/19 16:03) Ed Iv/Invasive Line Start (07/27/19 16:03) Ed Iv/Invasive Line Start (07/27/19 16:03) Vital Signs Adult Sepsis Patie Q15M (07/27/19 16:03) O2 (07/27/19 16:03) Remove Rings In Anticipation O (07/27/19 16:03) Lactic Acid Analyzer (07/27/19 16:03) Ns Iv 1000 Ml (Sodium Chloride 0.9%) (07/27/19 16:03) Acetaminophen Suppository (Tylenol Suppo (07/27/19 16:15) Manual Differential (07/27/19 15:55) Influenza A And B Antigens (07/27/19 16:32) Potassium Cl 10meq/50ml Ivpb (Kcl 10 Meq (07/27/19 16:45) Meropenem (Merrem 1000 Mg) (07/27/19 17:15) Fentanyl Injection (Sublimaze Injection (07/27/19 17:45) Red Cells Leukocytes Reduced (07/27/19 17:54) Type And Screen (07/27/19 17:54) Lactated Ringers (Lr 1000 Ml Iv Solution (07/27/19 17:55) Medications Given in ED Current Medications Medications Dose Ordered Sig/Dino Route Start Time Stop Time Status Last Admin Dose Admin Acetaminophen 650 mg ONCE ONCE ME 07/27/19 16:15 07/27/19 16:16 DC 07/27/19 16:11 650 MG Meropenem 1000 mg/ Sterile Water 20 ml @ 240 mls/hr ONCE ONCE IV 07/27/19 17:15 07/27/19 17:19 DC 07/27/19 17:45 240 MLS/HR Potassium Chloride 50 ml @ 50 mls/hr ONCE ONCE IV 07/27/19 16:45 07/27/19 17:44 DC 07/27/19 17:00 50 MLS/HR Vital Signs/I&O 11/26/19 11/26/19 11/26/19 15:55 15:55 18:07 Temp 38.2 38.2 Pulse 90 Resp 16 B/P (MAP) 116/50 (72) Pulse Ox 99 O2 Delivery Nasal Cannula Nasal Cannula O2 Flow Rate 2.00 2.00 Capillary Refill : Less Than 3 Seconds Blood Pressure Mean: 72 POS Progress Note : Progress Note Septic workup was pursued. A liter of IV normal saline was initiated. Hypokalemia was noted and 10 mEq of potassium was infused in the ER. Patient's MAP began to drop. Patient was then considered to have severe sepsis and a second liter of IV fluid was ordered. Patient appeared to have persistent pneumonia on chest x-ray. Meropenem was ordered for initial antibiotic therapy due to allergies to cephalosporins and penicillin. Patient was found to be significantly anemic. A unit of packed red blood cells was ordered for transfusion after discussion with Dr. Esquivel. Diagnostic Imaging Diagonstic Imaging: Xray Plain Films/CT/US/NM/MRI: chest Comments Chest x-ray viewed by me and report reviewed. See report below: NAME: [facility]SAF [facility] REC#: [id number] PT STATUS: REG ER : 1945 PHYSICIAN: ARIAN FERMIN MD ADMIT DATE: 07/27/19/ER Signed Date of Exam:07/27/19 CHEST 1 VIEW, AP/PA ONLY EXAMINATION: Chest 1 view. HISTORY: Weakness. COMPARISON: 07/12/2019. FINDINGS: There are small bilateral pleural effusions. Right base consolidation appears similar to prior exam. No pneumothorax. Heart size is normal. IMPRESSION: 1. Unchanged right base consolidation with small bilateral pleural effusions concerning for pneumonia. Dictated by: Dictated on workstation # [id number] Dict: 07/27/195 Trans: [id number]/27/[id number] Interpreted by: LITZY PACHECO MD Electronically signed by: LITZY PACHECO MD 07/27/19 1659 Departure Communication (Admissions) Time/Spoke to Admitting Phy: 17:30 Dr. Esquivel Impression Primary Impression: Severe sepsis Additional Impressions: Pneumonia Qualified Codes: J18.1 - Lobar pneumonia, unspecified organism Hypokalemia Altered mental status Qualified Codes: R41.82 - Altered mental status, unspecified Severe anemia Disposition: ADMITTED INPATIENT Condition: Improved Admissions Decision to Admit Reason: Admit from ER (General) Decision to Admit/Date: Jul 27, 2019 Time/Decision to Admit Time: 16:00 Departure-Patient Inst. Referrals: LITZY SHAFER MD (PCP) Primary Care Physician ARIAN FERMIN MD Jul 27, 2019 18:38 POS
--- NOTE | 2019-07-27 19:34 | NUR ---
CR 0.62; CR CL > 45; WT 61 KG; VANCO 1500 MG IV BOLUS THEN 1250 MG IV Q24H X 3 DAYS
[2019-07-27] MEDS ORDERED: NS IV ONE (20:00)
[2019-07-27] MEDS ORDERED: EPINEPHrine 1 MG INJECTION 2 MG in NS (IVPB) 250 ML IV SCH (20:00)
[2019-07-27] MEDS ORDERED: CATHETER FLUSH 10 ML SYR IV PRN (20:00)
[2019-07-27] MEDS ORDERED: NS IV 500 ML 500 ML IV SCH (20:00)
[2019-07-27] MEDS ORDERED: VANCOMYCIN 1500 MG/NS 500 ML IVPB IV NR ×2 (20:00)
[2019-07-27] MEDS ORDERED: RT-ALBUTEROL SULF 2.5 MG/3 ML PRE-MIX VIAL INH PRN (20:30)
[2019-07-27] MEDS: VASOPRESSIN INJECTION 20 UNIT in NORMAL SALINE 100 ML IV SCH (20:50)
[2019-07-27] MEDS: NOREPINEPHRINE 4 MG in NS (IVPB) 250 ML IV SCH (20:50)
[2019-07-27] MEDS: FLECAINIDE 100 MG (TAMBOCOR) TAB PO SCH (21:00)
[2019-07-27] MEDS: POTASSIUM CL 10 MEQ/50 ML IVPB (PRE-MIX) IV SCH ×2 (22:10→23:10)
[2019-07-27] MEDS: NS IV 1000 ML 1,000 ML IV SCH (22:11)
[2019-07-28] VITALS (14 sets, daily range): BP systolic 91–148; BP diastolic 45–89
[2019-07-28] MEDS: MEROPENEM 500 MG/SWFI 10 ML IV PUSH IV SCH ×6 (00:18→16:00)
[2019-07-28] MEDS: POTASSIUM CL 10 MEQ/50 ML IVPB (PRE-MIX) IV SCH ×3 (00:19→02:19)
[2019-07-28 01:45] LABS: HEMOGLOBIN 9.1 G/DL (11.5-16.0)
[2019-07-28 03:21] LABS: BASOPHILS # (AUTO) 0.1 10^3/uL (0.0-0.1); BASOPHILS % (AUTO) 2 % (0-10); EOSINOPHILS % (AUTO) 1 % (0-10); HEMATOCRIT 30 % (35-52); HEMOGLOBIN 9.4 G/DL (11.5-16.0); LYMPHOCYTES # (AUTO) 0.3 X 10^3 (1.0-4.0); LYMPHOCYTES % (AUTO) 8 % (12-44); MEAN CORPUSCULAR HEMOGLOBIN 29 PG (25-34); MEAN CORPUSCULAR HGB CONC 32 G/DL (32-36); MEAN CORPUSCULAR VOLUME 93 FL (80-99); MEAN PLATELET VOLUME 9.9 FL (7.4-10.4); MONOCYTES # (AUTO) 0.9 X 10^3 (0.0-1.0); MONOCYTES % (AUTO) 22 % (0-12); NEUTROPHILS # (AUTO) 2.6 X 10^3 (1.8-7.8); NEUTROPHILS % (AUTO) 67 % (42-75); PLATELET COUNT 60 10^3/uL (130-400); RED CELL DISTRIBUTION WIDTH 19.4 % (10.0-14.5); WHITE BLOOD COUNT 3.9 10^3/uL (4.3-11.0)
[2019-07-28 03:41] LABS: BUN/CREATININE RATIO 14; CALCIUM 7.2 MG/DL (8.5-10.1); CARBON DIOXIDE 29 MMOL/L (21-32); CHLORIDE 99 MMOL/L (98-107); CREATININE SERUM 0.56 MG/DL (0.60-1.30); GFR ESTIMATED > 60; GLUCOSE 87 MG/DL (70-105); MAGNESIUM 1.4 MG/DL (1.6-2.4); PHOSPHORUS 3.2 MG/DL (2.3-4.7); POTASSIUM 3.6 MMOL/L (3.6-5.0); SODIUM 138 MMOL/L (135-145)
[2019-07-28] MEDS: VASOPRESSIN INJECTION 20 UNIT in NORMAL SALINE 100 ML IV SCH (03:53)
[2019-07-28] MEDS: NOREPINEPHRINE 4 MG in NS (IVPB) 250 ML IV SCH (03:53)
[2019-07-28] MEDS: KCL 20 MEQ TAB (K-DUR) PO SCH ×2 (03:57→08:08)
[2019-07-28] MEDS ORDERED: POTASSIUM CL 10MEQ/50ML IVPB 100 ML IV ONE ×2 (04:53→05:37)
[2019-07-28] MEDS ORDERED: MAGNESIUM 1 GM/100 ML IVPB 200 ML IV ONE (04:53)
[2019-07-28] MEDS: MAGNESIUM 1 GM/100 ML IVPB 100 ML IV SCH ×2 (04:59→06:00)
[2019-07-28] MEDS: POTASSIUM CL 10MEQ/50ML IVPB 50 ML IV SCH ×4 (05:00→07:31)
--- NOTE | 2019-07-28 05:28 | Pulmonary Consultation ---
History of Present Illness History of Present Illness Date Seen by Provider: Jul 28, 2019 Time Seen by Provider: 07:35 Date of Admission Allergies and Home Medications Allergies Coded Allergies: Cephalexin Monohydrate (Verified Allergy, Unknown, 07/08/19) Penicillins (Verified Allergy, Unknown, 07/08/19) iodine (Verified Allergy, Unknown, 07/08/19) linaclotide (Verified Allergy, Unknown, 07/28/19) lubiprostone (Verified Allergy, Unknown, 07/28/19) prednisone (Verified Allergy, Unknown, 07/08/19) venlafaxine HCl (Verified Allergy, Unknown, 07/08/19) Home Medications Acetaminophen 325 Mg Tablet, 650 MG PO Q4H PRN for PAIN-MILD, (Reported) Aspirin 81 Mg Tablet.dr, 81 MG PO DAILY, (Reported) Atorvastatin Calcium 20 Mg Tablet, 20 MG PO HS, (Reported) Budesonide 0.5 Mg/2 Ml Ampul.neb, 0.5 MG NEB BID, (Reported) Calcium Carbonate/Vitamin D3 1 Each Tablet, 1 TAB PO DAILY, (Reported) Carvedilol 6.25 Mg Tablet, 6.25 MG PO BID, (Reported) HOLD MED AND CONTACT MD FOR SBP <100 OR PULSE <60 Cholecalciferol (Vitamin D3) 5,000 Unit Capsule, 5,000 UNIT PO DAILY, (Reported) Citalopram Hydrobromide 10 Mg Tablet, 10 MG PO BID, (Reported) Docusate Sodium 100 Mg Capsule, 100 MG PO BID, (Reported) Estrogens Conjugated 0.45 Mg Tab, 0.45 MG PO DAILY, (Reported) Famotidine 20 Mg Tablet, 20 MG PO BID, (Reported) Ferrous Sulfate 325 Mg Tablet, 325 MG PO DAILY, (Reported) Flecainide Acetate 100 Mg Tablet, 100 MG PO BID, (Reported) Furosemide 20 Mg Tablet, 20 MG PO DAILY, (Reported) Ipratropium/Albuterol Sulfate 3 Ml Ampul.neb, 3 ML NEB QID, (Reported) Metformin HCl 500 Mg Tablet, 500 MG PO DAILY, (Reported) Mirtazapine 15 Mg Tablet, 15 MG PO HS, (Reported) Ondansetron HCl 4 Mg Tab, 4 MG PO Q4H PRN for NAUSEA/VOMITING-1ST LINE, (Repo rted) Pantoprazole Sodium 40 Mg Tablet.dr, 40 MG PO DAILY, (Reported) Polyethylene Glycol 3350 17 Gm Powd.pack, 17 GM PO DAILY PRN for CONSTIPATION- 2ND LINE, (Reported) Polyethylene Glycol 3350 17 Gm Powd.pack, 17 GM PO HS, (Reported) Promethazine HCl 12.5 Mg Tablet, 12.5 MG PO Q6H PRN for NAUSEA/VOMITING-2ND LINE, (Reported) Sennosides/Docusate Sodium 1 Each Tablet, 1 TAB PO BID PRN for CONSTIPATION-6TH LINE, (Reported) Vit A/Vit C/Vit E/Zinc/Copper 1 Each Tablet, 1 TAB PO DAILY, (Reported) Past Ysphwub-Nztrtq-Msfhqz Hx Past Med/Social Hx: Reviewed and Corrections made Patient Social History Alcohol Use: Denies Use Recreational Drug Use: No Smoking Status: Never a Smoker 2nd Hand Smoke Exposure: No Recent Foreign Travel: No Contact w/Someone Who Travel: No Recent Infectious Disease Expo: No Recent Hopitalizations: Yes Physical Abuse: No Sexual Abuse: No Mistreated: No Fear: No Immunizations Up To Date Tetanus Booster (TDap): Unknown Date of Pneumonia Vaccine: May 03, 2009 Date of Influenza Vaccine: May 03, 2019 Seasonal Allergies Seasonal Allergies: Yes Past Medical History Surgeries: Yes Abdominal, Appendectomy, Bladder Surgery, Cardiac, Gallbladder, Hysterectomy Respiratory: Yes Pneumonia, COPD Cardiac: Yes Atrial Fibrillation, Hypertension, Valvular Heart Disease Neurological: No [employer] History: Menopausal Genitourinary: Yes (BLADDER PROLAPSE--S/P BLADDER SURGERIES WITH VAGINAL MESH) Bladder Infection Gastrointestinal: Yes (dysphagia) Gastroesophageal Reflux, Gastrointestinal Bleed, Chronic Constipation, Hiatal Hernia Musculoskeletal: Yes Rheumatoid Arthritis Endocrine: Yes Diabetes, Non-Insulin dep HEENT: No Cancer: No Psychosocial: Yes Anxiety, Depression Integumentary: No Blood Disorders: Yes (ANEMIA--UNKNOWN CAUSE) Adverse Reaction/Blood Tranf: No Family Medical History No Pertinent Family Hx Sepsis Event Evaluation Height, Weight, BMI Height: '" Weight: lbs. oz. kg; 21.00 BMI Method:Estimated Exam Exam Vital Signs Date Time Temp Pulse Resp B/P (MAP) Pulse Ox O2 Delivery O2 Flow Rate FiO2 07/28/19 05:00 83 15 138/60 (86) Nasal Cannula 2.00 07/28/19 04:00 95 Nasal Cannula 2.00 07/28/19 04:00 73 11 143/53 (83) 94 Room Air 07/28/19 03:58 36.3 07/28/19 03:00 70 24 148/56 (86) 92 Room Air 07/28/19 02:00 68 15 131/56 (81) 94 Room Air 07/28/19 01:00 64 07/28/19 01:00 64 14 123/55 (77) 94 Room Air 07/28/19 00:00 64 17 114/89 (97) 92 Room Air 07/28/19 00:00 99 Nasal Cannula 2.00 07/28/19 00:00 35.9 07/27/19 23:30 35.5 59 15 124/59 95 Room Air 07/27/19 23:00 59 12 117/51 (73) 100 Nasal Cannula 1.00 07/27/19 22:30 35.7 60 15 130/71 100 Nasal Cannula 1.00 07/27/19 22:15 35.7 57 13 104/48 100 Nasal Cannula 1.00 07/27/19 22:00 35.8 58 22 103/44 99 Nasal Cannula 1.00 07/27/19 22:00 60 15 103/44 (63) 100 Nasal Cannula 1.00 07/27/19 21:45 35.7 62 13 113/51 100 Nasal Cannula 1.00 07/27/19 21:30 35.8 64 16 111/47 90 Nasal Cannula 1.00 07/27/19 21:15 35.7 67 15 117/47 88 Room Air 07/27/19 21:00 64 13 103/48 (66) 100 Nasal Cannula 1.00 07/27/19 21:00 35.6 64 16 103/48 99 Nasal Cannula 1.00 07/27/19 20:45 36.1 63 13 99/38 99 Nasal Cannula 1.00 07/27/19 20:31 100 Nasal Cannula 2.00 07/27/19 20:30 36.0 64 15 97/41 99 Nasal Cannula 1.00 07/27/19 20:15 36.0 66 17 98/43 99 Nasal Cannula 2.00 07/27/19 20:10 36.7 75 100 28 07/27/19 20:02 35.8 65 12 97/41 100 Nasal Cannula 2.00 07/27/19 20:00 99 Nasal Cannula 2.00 07/27/19 20:00 67 15 97/41 (59) 100 Nasal Cannula 1.00 07/27/19 19:30 68 16 93/42 (59) 99 Nasal Cannula 1.00 07/27/19 19:21 72 20 100/45 (63) 97 Nasal Cannula 1.00 07/27/19 19:21 76 07/27/19 19:21 99 Nasal Cannula 2.00 07/27/19 19:21 36.2 07/27/19 19:04 36.7 75 16 102/46 (72) 99 Nasal Cannula 2.00 07/27/19 18:07 38.2 07/27/19 15:55 99 Nasal Cannula 2.00 07/27/19 15:55 38.2 90 16 116/50 (72) Nasal Cannula 2.00 I & O 07/28/19 07:00 Intake Total 2815 ml Output Total 825 ml Balance 1990 ml Height & Weight Height: '" Weight: lbs. oz. kg; 21.00 BMI Method:Estimated General Appearance: No Apparent Distress, WD/WN, Other (confused and ill- appearing) HEENT: PERRL/EOMI, Normal ENT Inspection, Other (mucous membranes dry) Neck: Normal Inspection Respiratory: Lungs Clear, Normal Breath Sounds, No Accessory Muscle Use Cardiovascular: Regular Rate, Rhythm, No Murmur, Normal Peripheral Pulses, Other (bilateral lower extremity pitting edema) Capillary Refill: Less Than 3 Seconds Extremity: Normal Inspection, Pedal Edema (bilateral equal lower extremity pitting edema) Neurologic/Psychiatric: Alert, No Motor/Sensory Deficits, Normal Mood/Affect, tourist escort II-XII Norm as Tested, Other (disoriented but responds to questions) Results Lab Laboratory Tests 07/27/19 15:55 07/28/19 01:38 07/28/19 03:08 Assessment/Plan Assessment/Plan UTI with sepsis -IVF , Currently on Merrem and vanco -Hernandez cultures -MRSA swab pending -No fever Pulmonary edema r/o PNA -Check BNP -Start Lasix and decrease IVF Mild anemia -s/p 1 unit PRBC -Hold anticoagulation -Check occult stool - was positive last hospitalization -Pt is colonoscopy on Friday in [place] Hypokalemia -replace Pancytopenia -Consider hematology eval as out pt HARLEY GAMA DO Jul 28, 2019 05:28 POS
[2019-07-28] MEDS ORDERED: MAGNESIUM 1 GM/100 ML IVPB 100 ML IV SCH (06:00)
[2019-07-28] MEDS ORDERED: POTASSIUM CL 10MEQ/50ML IVPB 50 ML IV SCH (06:00)
[2019-07-28] MEDS: fentaNYL INJECTION 100 MCG/2 ML AMP IV PRN (06:36)
[2019-07-28] MEDS: ONDANSETRON 4 MG/2 ML (SDV) Z0FRAN IV PRN ×2 (06:36→10:32)
[2019-07-28] MEDS ORDERED: RT-ALBUTEROL SULF 2.5 MG/3 ML PRE-MIX VIAL INH SCH ×2 (07:00→10:00)
[2019-07-28] MEDS: NS IV 1000 ML 1,000 ML IV SCH ×2 (07:31→08:07)
[2019-07-28] MEDS: PANTOPRAZOLE 40 MG (PROTONIX) VIAL IV SCH (08:08)
[2019-07-28] MEDS: FLECAINIDE 100 MG (TAMBOCOR) TAB PO SCH ×2 (08:08→20:46)
[2019-07-28] MEDS: FUROSEMIDE 40 MG/4 ML INJ (LASIX) IVP SCH (08:08)
--- NOTE | 2019-07-28 08:27 | Diagnostic Imaging Report ---
CHEST 1 VIEW, AP/PA ONLY Indication: Severe sepsis, hypokalemia Comparison: 07/27/2019 Findings: Increased ill-defined perihilar opacities. Small bilateral pleural effusions are unchanged and remain greater on the right. No pneumothorax. Stable enlargement of the heart. Impression: 1. Worsening pulmonary opacities could relate to pulmonary edema or atypical infection. Dictated by: Dictated on workstation # [id number]
[2019-07-28] MEDS: ACETAMINOPHEN 325 MG TABLET PO PRN (08:31)
--- NOTE | 2019-07-28 09:20 | NUR ---
PT TRANSFERRED FROM ICU TO ROOM 410. HEART MONITOR IN PLACE. PT ORIENTED TO ROOM, CALL LIGHT WITHIN REACH. FAMILY AT BEDSIDE. WILL MONITOR PT CLOSELY.
[2019-07-28] MEDS: RT-ALBUTEROL/IPRATROPIUM 3 ML (DUONEB) VIAL INH SCH ×4 (10:00→22:08)
[2019-07-28] MEDS ORDERED: POLY17PO6 PO (10:29)
[2019-07-28] MEDS ORDERED: PROM12.511 PO (10:29)
[2019-07-28] MEDS ORDERED: DOCU-143 PO (10:29)
[2019-07-28] MEDS ORDERED: FAMO-119 PO (10:29)
[2019-07-28] MEDS ORDERED: ONDN4T PO (10:29)
--- NOTE | 2019-07-28 10:34 | NUR ---
UPDATED MED REC WITH PHYSICIAN VISIT FORM FROM [facility]. PATIENT HAD A LIST OF MEDS WELL THAT WAS NOT THE SAME THE LIST FROM THE [facility]. I UPDATED THE MED REC WITH THE LIST FROM THE [facility] AT THIS TIME.
--- NOTE | 2019-07-28 10:59 | History & Physical-Hospitalist ---
History of Present Illness HPI/Chief Complaint She Hawkins is a 74yoF with multiple recent hospitalizations, recurrent GI bleeding, paroxysmal atrial fibrillation, anemia, who presented from [facility] with fever, tachycardia, and hypotension. She reports feeling short of breath. She denies cough. She denies chest pain. She denies abdominal pain. She reports nausea but no vomiting. She denies diarrhea. She denies rash. Her is present and asks for a "BioFire" test to determine the type of infection she has. Source: patient, family Exam Limitations: no limitations Date Seen 07/28/19 Time Seen by a Provider: 10:15 Attending Physician Denisa Esquivel MD PCP Aakash Santos MD Referring Physician Date of Admission Jul 27, 2019 at 16:25 Home Medications & Allergies Home Medications Reviewed patient Home Medication Reconciliation performed by pharmacy medication reconciliations field evidence technician and/or nursing. Patients Allergies have been reviewed. Allergies Allergies Coded Allergies Cephalexin Monohydrate (Verified Allergy, Unknown, 07/08/19) Penicillins (Verified Allergy, Unknown, 07/08/19) iodine (Verified Allergy, Unknown, 07/08/19) linaclotide (Verified Allergy, Unknown, 07/28/19) lubiprostone (Verified Allergy, Unknown, 07/28/19) prednisone (Verified Allergy, Unknown, 07/08/19) venlafaxine HCl (Verified Allergy, Unknown, 07/08/19) Past Hrzddrz-Ofkwlr-Ltbhkn Hx Past Med/Social Hx: Reviewed and Corrections made Patient Social History Alcohol Use: Denies Use Recreational Drug Use: No Smoking Status: Never a Smoker 2nd Hand Smoke Exposure: No Recent Foreign Travel: No Contact w/other who traveled: No Recent Hopitalizations: Yes Recent Infectious Disease Expo: No Immunizations Up To Date Tetanus Booster (TDap): Unknown Date of Pneumonia Vaccine: May 03, 2009 Date of Influenza Vaccine: May 03, 2019 Seasonal Allergies Seasonal Allergies: Yes Past Medical History Surgeries: Abdominal, Appendectomy, Bladder Surgery, Cardiac, Gallbladder, Hysterectomy Cardiac: Atrial Fibrillation, Hypertension, Valvular Heart Disease Menopausal Genitourinary: Bladder Infection Gastrointestinal: Gastroesophageal Reflux, Gastrointestinal Bleed, Chronic Constipation, Hiatal Hernia Musculoskeletal: Rheumatoid Arthritis Endocrine: Diabetes, Non-Insulin dep Psychosocial: Anxiety, Depression History of Blood Disorders: Yes (ANEMIA--UNKNOWN CAUSE) Adverse Reaction to Blood Ellis: No Family History No Pertinent Family Hx Review of Systems Constitutional: fever, malaise EENTM: no symptoms reported Respiratory: short of breath Cardiovascular: no symptoms reported Gastrointestinal: nausea Genitourinary: no symptoms reported Musculoskeletal: no symptoms reported Skin: no symptoms reported Psychiatric/Neurological: No Symptoms Reported Physical Exam Physical Exam Vital Signs Vital Signs - First Documented 07/27/19 07/27/19 15:55 20:10 Temp 38.2 Pulse 90 Resp 16 B/P (MAP) 116/50 (72) Pulse Ox 99 O2 Delivery Nasal Cannula O2 Flow Rate 2.00 FiO2 28 Capillary Refill : Less Than 3 Seconds Height, Weight, BMI Height: '" Weight: lbs. oz. kg; 21.00 BMI Method:Estimated General Appearance: No Apparent Distress, Chronically ill, Thin HEENT: PERRL/EOMI, Other (dry mucous membranes) Neck: Normal Inspection, Supple Respiratory: Lungs Clear, Normal Breath Sounds, No Respiratory Distress Cardiovascular: No Murmur, Irregularly Irregular, Tachycardia Gastrointestinal: Normal Bowel Sounds, Non Tender, Soft Extremity: Normal Inspection, Non Tender, Pedal Edema Neurologic/Psychiatric: Alert, Oriented x3, No Motor/Sensory Deficits, Normal Mood/Affect Skin: Warm/Dry, Pallor Results Results/Procedures Labs Laboratory Tests 07/27/19 15:55 07/28/19 01:38 07/28/19 03:08 Patient resulted labs reviewed. Imaging: Reviewed Imaging Report Assessment/Plan Admission Diagnosis Severe sepsis due to pneumonia Admission Status: Inpatient Order (span 2 midnights) Reason for Inpatient Admission: Severe sepsis requiring IV antibiotics Assessment and Plan Severe sepsis HCAP -SIRS+ with fever and tachycardia -Severe sepsis with thrombocytopenia -Source identified as pneumonia -Continue Vanc/Zosyn -Cultures pending Hypokalemia Hypomagnesemia -K improved this morning -Monitor and replace as needed Atrial fibrillation with RVR -Continue Flecainide -Holding Coreg due to soft blood pressures -Consult cardiology, Dr. Davis -No anticoagulation due to recurrent GI bleeding Recurrent GI bleeding Chronic blood loss anemia -Hgb 7.6 on admission -Transfused 1 unit PRBC -Hgb 9.4 this morning -Appointment scheduled with Dr. Pereira on Friday Thrombocytopenia -Likely decreased due to severe sepsis -Continue to monitor DVT Prophylaxis: held due to recurrent GI bleeding Diagnosis/Problems Diagnosis/Problems (1) Severe sepsis Status: Acute (2) HCAP (healthcare-associated pneumonia) Status: Acute (3) Thrombocytopenia Status: Acute (4) Chronic blood loss anemia Status: Chronic (5) Recurrent gastrointestinal hemorrhage Status: Chronic (6) Hypokalemia Status: Acute (7) Hypomagnesemia Status: Acute Clinical Quality Measures DVT/VTE Risk/Contraindication: Risk Factor Score Per Nursin RFS Level Per Nursing on Admit: 4+=Very High Contraindications-Pharm: Other *list below* Other: Pt receiving blood transfusion, possible bleeding so no order for medication indicated. Pt does have SCD's ordered and on. DENISA ESQIUVEL MD Jul 28, 2019 10:59 POS
[2019-07-28] MEDS ORDERED: RT-ALBUTEROL/IPRATROPIUM 3 ML (DUONEB) VIAL INH PRN (12:00)
[2019-07-28] MEDS ORDERED: RT-ALBUTEROL SULF 2.5 MG/3 ML PRE-MIX VIAL INH PRN (12:00)
--- NOTE | 2019-07-28 13:22 | NUR ---
DR FINLEY NOTIFIED OF CONSULT. NOTIFIED OF CURRENT BP 91/50 AND HR 93.
--- NOTE | 2019-07-28 14:34 | Consultation-Cardiology ---
HPI-Cardiology Cardiology Consultation: Date of Consultation 07/28/19 Time Seen by a Provider: 14:30 Date of Admission 07-27-19 Attending Physician Denisa Esquivel MD Admitting Physician Aakash Santos MD Consulting Physician Eric Davis MD HPI: Chief Complaint: A-fib with RVR Ms. Hawkins is a 74 year old female who has been admitted to [facility] from [facility]. Her spouse is at the bedside. They report she has been feeling unwell for a few days. Yesterday she became lethargic and confused. She was noted to have an elevated temp of 102. She denies any c/of CP, palpitations. She reports mod dyspnea. She reports chronic bilat LE swelling, which she feels is better today. She is reporting gen malaise. She reports nausea, but no vomiting or diarrhea. She reports poor appetite. She reports constipation. Review of Systems-Cardiology Review of Systems Constitutional: chills, fever, malaise Eyes: No vision change Ears/Nose/Throat: No epistaxis, No recent hearing loss Respiratory: As described under HPI Cardiovascular: As described under HPI Gastrointestinal: constipation; No diarrhea; nausea; No vomiting Genitourinary: No burning, No dysuria, No hematuria : No Musculoskeletal: muscle pain (generalized) Skin: No rash on exposed areas, No ulcerations on exposed areas Psychiatric/Neurological: No anxiety, No depression, No syncope Hematologic: No bleeding abnormalities FLC-Btvxak-Wputsy Hx Patient Social History Alcohol Use: Denies Use Recreational Drug Use: No Smoking Status: Never a Smoker 2nd Hand Smoke Exposure: No Recent Foreign Travel: No Recent Infectious Disease Expo: No Immunizations Up To Date Tetanus Booster (TDap): Unknown Date of Pneumonia Vaccine: May 03, 2009 Date of Influenza Vaccine: May 03, 2019 Past Medical History PMH As described under Assessment. Family Medical History Family Medical History: Does not report fam h/o early CAD or SCD Allergies and Home Medications Allergies Coded Allergies: Cephalexin Monohydrate (Verified Allergy, Unknown, 07/08/19) Penicillins (Verified Allergy, Unknown, 07/08/19) iodine (Verified Allergy, Unknown, 07/08/19) linaclotide (Verified Allergy, Unknown, 07/28/19) lubiprostone (Verified Allergy, Unknown, 07/28/19) prednisone (Verified Allergy, Unknown, 07/08/19) venlafaxine HCl (Verified Allergy, Unknown, 07/08/19) Home Medications Acetaminophen 325 Mg Tablet, 650 MG PO Q4H PRN for PAIN-MILD, (Reported) Aspirin 81 Mg Tablet.dr, 81 MG PO DAILY, (Reported) Atorvastatin Calcium 20 Mg Tablet, 20 MG PO HS, (Reported) Budesonide 0.5 Mg/2 Ml Ampul.neb, 0.5 MG NEB BID, (Reported) Calcium Carbonate/Vitamin D3 1 Each Tablet, 1 TAB PO DAILY, (Reported) Carvedilol 6.25 Mg Tablet, 6.25 MG PO BID, (Reported) HOLD MED AND CONTACT MD FOR SBP <100 OR PULSE <60 Cholecalciferol (Vitamin D3) 5,000 Unit Capsule, 5,000 UNIT PO DAILY, (Reported) Citalopram Hydrobromide 10 Mg Tablet, 10 MG PO BID, (Reported) Docusate Sodium 100 Mg Capsule, 100 MG PO BID, (Reported) Estrogens Conjugated 0.45 Mg Tab, 0.45 MG PO DAILY, (Reported) Famotidine 20 Mg Tablet, 20 MG PO BID, (Reported) Ferrous Sulfate 325 Mg Tablet, 325 MG PO DAILY, (Reported) Flecainide Acetate 100 Mg Tablet, 100 MG PO BID, (Reported) Furosemide 20 Mg Tablet, 20 MG PO DAILY, (Reported) Ipratropium/Albuterol Sulfate 3 Ml Ampul.neb, 3 ML NEB QID, (Reported) Metformin HCl 500 Mg Tablet, 500 MG PO DAILY, (Reported) Mirtazapine 15 Mg Tablet, 15 MG PO HS, (Reported) Ondansetron HCl 4 Mg Tab, 4 MG PO Q4H PRN for NAUSEA/VOMITING-1ST LINE, (Reported) Pantoprazole Sodium 40 Mg Tablet.dr, 40 MG PO DAILY, (Reported) Polyethylene Glycol 3350 17 Gm Powd.pack, 17 GM PO DAILY PRN for CONSTIPATION- 2ND LINE, (Reported) Polyethylene Glycol 3350 17 Gm Powd.pack, 17 GM PO HS, (Reported) Promethazine HCl 12.5 Mg Tablet, 12.5 MG PO Q6H PRN for NAUSEA/VOMITING-2ND LINE, (Reported) Sennosides/Docusate Sodium 1 Each Tablet, 1 TAB PO BID PRN for CONSTIPATION-6TH LINE, (Reported) Vit A/Vit C/Vit E/Zinc/Copper 1 Each Tablet, 1 TAB PO DAILY, (Reported) Patient Home Medication List Home Medication List Reviewed: Yes Physical Exam-Cardiology Physical Exam Vital Signs/I&O 08/02/19 08/02/19 08/02/19 08/02/19 00:00 00:00 00:18 01:00 Temp 36.3 Pulse 71 73 Resp 25 B/P (MAP) 109/49 (69) Pulse Ox 100 94 O2 Delivery Nasal Cannula Room Air Room Air O2 Flow Rate 3.00 08/02/19 08/02/19 08/02/19 08/02/19 03:01 04:00 04:00 07:00 Temp 36.1 Pulse 72 76 Resp 22 B/P (MAP) 107/48 (67) Pulse Ox 96 93 99 O2 Delivery Room Air Room Air Room Air 08/02/19 08/02/19 08:00 08:00 Pulse 73 Resp 37 B/P (MAP) Pulse Ox 93 100 O2 Delivery Room Air Room Air 08/02/19 00:00 Intake Total 940 ml Output Total 500 ml Balance 440 ml Capillary Refill : Less Than 3 Seconds Constitutional: AAO x 3, other (thin, frail) HEENT: PERRL, other (lips and mouth dry), hearing is well preserved Neck: No carotid bruit; carotid pulses are 2 + bilaterally Respiratory: No accessory muscle use, No respiratory distress; chest expansion is symmetric, chest is bilaterally symmetric, other (good air entry) Cardiovascular: irregularly irregular; No JVD; S1 and S2 Gastrointestinal: No tender; soft, audible bowel sounds (hypoactive) Extremities: other (mild to mod bilat LE swelling) Neurologic/Psychiatric: grossly intact (moves extremities) Skin: normal color, warm/dry Data Review Labs Laboratory Tests 08/01/19 11:28: Glucometer 117H 08/01/19 16:47: Glucometer 84 08/01/19 20:57: Glucometer 100 08/02/19 03:45: White Blood Count 5.2, Red Blood Count 2.55L, Hemoglobin 7.3L, Hematocrit 23L, Mean Corpuscular Volume 89, Mean Corpuscular Hemoglobin 29, Mean Corpuscular Hemoglobin Concent 32, Red Cell Distribution Width 19.8H, Platelet Count 73L, Mean Platelet Volume 10.8H, Neutrophils (%) (Auto) 63, Lymphocytes (%) (Auto) 12, Monocytes (%) (Auto) 24H, Eosinophils (%) (Auto) 1, Basophils (%) (Auto) 1, Neutrophils # (Auto) 3.3, Lymphocytes # (Auto) 0.6L, Monocytes # (Auto) 1.3H, Eosinophils # (Auto) 0.0, Basophils # (Auto) 0.0, Sodium Level 129L, Potassium Level 4.7, Chloride Level 97L, Carbon Dioxide Level 25, Anion Gap 7, Blood Urea Nitrogen 13, Creatinine 0.60, Estimat Glomerular Filtration Rate > 60, BUN/Creatinine Ratio 22, Glucose Level 116H, Calcium Level 7.3L, Phosphorus Level 3.1, Magnesium Level 1.9, Total Bilirubin 2.1H, Direct Bilirubin 1.0H, In direct Bilirubin 1.1, Aspartate Amino Transf (AST/SGOT) 48H, Alanine Aminotransferase (ALT/SGPT) 9, Alkaline Phosphatase 116, Total Protein 4.5L, Albumin 1.7L, Amylase Level 21L, Lipase 24 Microbiology 07/29/19 Blood Culture - Preliminary, Resulted No growth 07/27/19 MRSA Screen - Final, Complete MRSA not isolated 07/27/19 Urine Culture - Final, Complete NO GROWTH Radiology NAME: ASAF HAWKINS [facility] REC#: [id number] PT STATUS: ADM IN : 1945 PHYSICIAN: DENISA ESQUIVEL MD ADMIT DATE: 07/27/19/ICU Signed Date of Exam:07/28/19 CHEST 1 VIEW, AP/PA ONLY CHEST 1 VIEW, AP/PA ONLY Indication: Severe sepsis, hypokalemia Comparison: 07/27/2019 Findings: Increased ill-defined perihilar opacities. Small bilateral pleural effusions are unchanged and remain greater on the right. No pneumothorax. Stable enlargement of the heart. Impression: 1. Worsening pulmonary opacities could relate to pulmonary edema or atypical infection. Dictated by: Dictated on workstation # [id number] Dict: 07/28/19824 Trans: 07/28/19906 CV [id number] Interpreted by: DOMINIC BROWN MD Electronically signed by: DOMINIC BROWN MD 07/28/19906 ECG Impression ECG Initial ECG Impression: Atrial Fibrillation A/P-Cardiology Assessment/Admission Diagnosis Sepsis and hypotension - management per medical services UTI Probable pneumonia Acute on chronic diastolic CHF Re-current anemia of undetermined etiology H/o PAF that has chronically been treated with flecainide (pt states years, but doesn't who started it when). OAC has been withheld d/t because of severe anemia of undetermined etiology (per recs of hospitalist during previous admission earlier this month) Echo of 07/11/19: LVEF 60-65%, mild MR, mod AI, mild to mod TR, grade 2 mccullough dysfunction, RVSP 47 mmHg MPI of Jul 13, 2019 showed no evidence of ischemia/infarction; LVEF 67% Severe anemia of undetermined etiology (she reports chronic anemia for which she has had multiple eval in the past with unknown cause). Stool positive for occult blood during previous admission - Dr. Payne of Hematology/Oncology previously consulted - reports a capsule endoscopy is planned for Friday Hypokalemia Discussion and Recomendations Management of sepsis per medical services A-fib with h/o PAF - resume home dose of Flecainide Resume Coreg Continue to hold OAC for reasons noted above Monitor lab Transfuse as indicated IV diuretics Replace electrolytes Further recs will be based on her hospital course We would like to thank medical services for this consult Clinical Quality Measures DVT/VTE Risk/Contraindication: Risk Factor Score Per Nursin RFS Level Per Nursing on Admit: 4+=Very High Contraindications-Pharm: Other *list below* Other: Pt receiving blood transfusion, possible bleeding so no order for medication indicated. Pt does have SCD's ordered and on. DAVINA TRONCOSO Jul 28, 2019 14:34 POS
[2019-07-28] MEDS ORDERED: MEROPENEM 500 MG VIAL (MERREM) IV ONE ×2 (17:18→17:19)
[2019-07-28] MEDS ORDERED: WATER (STERILE) FOR INJECTION 10 ML ONE (17:19)
[2019-07-28] MEDS ORDERED: VANCOMYCIN 1250 MG/NS 250 ML IVPB IV SCH ×2 (20:00)
[2019-07-28] MEDS: CARVEDILOL 6.25 MG (COREG) TAB PO SCH (20:46)
[2019-07-28] MEDS ORDERED: NON-FORMULARY MEDICATION 1 EA EA (Flecainide Acetate 100 MG) PO SCH (21:00)
--- NOTE | 2019-07-28 21:41 | Consultation-Cardiology ---
HPI-Cardiology Cardiology Consultation: Date of Consultation 07/28/19 Time Seen by a Provider: 21:00 Date of Admission Attending Physician Ivelisse Alba MD Admitting Physician Aakash Santos MD Consulting Physician ANA FINLEY MD, MA, FACP, FACC, FSCAI, CCDS HPI: Chief Complaint: Reason for consultation: A-fib with RVR HPI Ms. Hawkins is a 74 year old female who has been admitted to [facility] from [facility]. Her spouse is at the bedside. They report she has been feeling unwell for a few days. Yesterday she became lethargic and confused. She was noted to have an elevated temp of 102. She denies any c/of CP, palpitations. She reports mod dyspnea. She reports chronic bilat LE swelling, which she feels is better today. She is reporting gen malaise. She reports nausea, but no vomiting or diarrhea. She reports poor appetite. She reports constipation. Review of Systems-Cardiology Review of Systems Constitutional: chills, fever, malaise Eyes: No vision change Ears/Nose/Throat: No epistaxis, No recent hearing loss Respiratory: As described under HPI Cardiovascular: As described under HPI Gastrointestinal: constipation; No diarrhea; nausea; No vomiting Genitourinary: No burning, No dysuria, No hematuria : No Musculoskeletal: muscle pain (generalized) Skin: No rash on exposed areas, No ulcerations on exposed areas Psychiatric/Neurological: No anxiety, No depression, No syncope Hematologic: No bleeding abnormalities IIV-Kymubh-Lzrxhk Hx Patient Social History Alcohol Use: Denies Use Recreational Drug Use: No Smoking Status: Never a Smoker 2nd Hand Smoke Exposure: No Recent Foreign Travel: No Recent Infectious Disease Expo: No Immunizations Up To Date Tetanus Booster (TDap): Unknown Date of Pneumonia Vaccine: May 03, 2009 Date of Influenza Vaccine: May 03, 2019 Past Medical History PMH As described under Assessment. Family Medical History Family Medical History: Does not report fam h/o early CAD or SCD Allergies and Home Medications Allergies Coded Allergies: Cephalexin Monohydrate (Verified Allergy, Unknown, 07/08/19) Penicillins (Verified Allergy, Unknown, 07/08/19) iodine (Verified Allergy, Unknown, 07/08/19) linaclotide (Verified Allergy, Unknown, 07/28/19) lubiprostone (Verified Allergy, Unknown, 07/28/19) prednisone (Verified Allergy, Unknown, 07/08/19) venlafaxine HCl (Verified Allergy, Unknown, 07/08/19) Home Medications Acetaminophen 325 Mg Tablet, 650 MG PO Q4H PRN for PAIN-MILD, (Reported) Aspirin 81 Mg Tablet.dr, 81 MG PO DAILY, (Reported) Atorvastatin Calcium 20 Mg Tablet, 20 MG PO HS, (Reported) Budesonide 0.5 Mg/2 Ml Ampul.neb, 0.5 MG NEB BID, (Reported) Calcium Carbonate/Vitamin D3 1 Each Tablet, 1 TAB PO DAILY, (Reported) Carvedilol 6.25 Mg Tablet, 6.25 MG PO BID, (Reported) HOLD MED AND CONTACT MD FOR SBP <100 OR PULSE <60 Cholecalciferol (Vitamin D3) 5,000 Unit Capsule, 5,000 UNIT PO DAILY, (Reported) Citalopram Hydrobromide 10 Mg Tablet, 10 MG PO BID, (Reported) Docusate Sodium 100 Mg Capsule, 100 MG PO BID, (Reported) Estrogens Conjugated 0.45 Mg Tab, 0.45 MG PO DAILY, (Reported) Famotidine 20 Mg Tablet, 20 MG PO BID, (Reported) Ferrous Sulfate 325 Mg Tablet, 325 MG PO DAILY, (Reported) Flecainide Acetate 100 Mg Tablet, 100 MG PO BID, (Reported) Furosemide 20 Mg Tablet, 20 MG PO DAILY, (Reported) Ipratropium/Albuterol Sulfate 3 Ml Ampul.neb, 3 ML NEB QID, (Reported) Metformin HCl 500 Mg Tablet, 500 MG PO DAILY, (Reported) Mirtazapine 15 Mg Tablet, 15 MG PO HS, (Reported) Ondansetron HCl 4 Mg Tab, 4 MG PO Q4H PRN for NAUSEA/VOMITING-1ST LINE, (Reporte d) Pantoprazole Sodium 40 Mg Tablet.dr, 40 MG PO DAILY, (Reported) Polyethylene Glycol 3350 17 Gm Powd.pack, 17 GM PO DAILY PRN for CONSTIPATION- 2ND LINE, (Reported) Polyethylene Glycol 3350 17 Gm Powd.pack, 17 GM PO HS, (Reported) Promethazine HCl 12.5 Mg Tablet, 12.5 MG PO Q6H PRN for NAUSEA/VOMITING-2ND LINE, (Reported) Sennosides/Docusate Sodium 1 Each Tablet, 1 TAB PO BID PRN for CONSTIPATION-6TH LINE, (Reported) Vit A/Vit C/Vit E/Zinc/Copper 1 Each Tablet, 1 TAB PO DAILY, (Reported) Patient Home Medication List Home Medication List Reviewed: Yes Physical Exam-Cardiology Physical Exam Vital Signs/I&O 07/28/19 07/28/19 07/28/19 07/28/19 09:40 09:50 10:00 12:00 Temp 37.7 37.7 36.7 Pulse 133 130 103 Resp 22 20 B/P (MAP) 109/45 (66) 96/56 (69) Pulse Ox 91 94 94 95 O2 Delivery Nasal Cannula Nasal Cannula Nasal Cannula O2 Flow Rate 2.00 2.00 2.00 FiO2 28 07/28/19 07/28/19 07/28/19 07/28/19 13:00 13:10 15:11 16:48 Temp 37.1 36.0 Pulse 94 93 87 Resp 18 16 B/P (MAP) 91/50 (64) 100/55 (70) Pulse Ox 93 93 O2 Delivery Nasal Cannula Nasal Cannula Room Air O2 Flow Rate 2.00 1.00 07/28/19 07/28/19 07/28/19 18:13 19:00 19:38 Temp 36.3 Pulse 90 85 Resp 20 B/P (MAP) 103/51 (68) Pulse Ox 90 92 O2 Delivery Room Air Nasal Cannula O2 Flow Rate 2.00 07/28/19 00:00 Intake Total 2120 ml Output Total 300 ml Balance 1820 ml Capillary Refill : Less Than 3 Seconds Constitutional: AAO x 3, other (thin, frail) HEENT: PERRL, other (lips and mouth dry), hearing is well preserved Neck: No carotid bruit; carotid pulses are 2 + bilaterally Respiratory: No accessory muscle use, No respiratory distress; chest expansion is symmetric, chest is bilaterally symmetric, other (good air entry) Cardiovascular: irregularly irregular; No JVD; S1 and S2 Gastrointestinal: No tender; soft, audible bowel sounds (hypoactive) Extremities: other (mild to mod bilat LE swelling) Neurologic/Psychiatric: grossly intact (moves extremities) Skin: normal color, warm/dry Data Review Labs Laboratory Tests 07/28/19 01:38: Hemoglobin 9.1L, Hematocrit 28L 07/28/19 03:08: Hemoglobin 9.4L, Hematocrit 30L, White Blood Count 3.9L, Red Blood Count 3.21L, Mean Corpuscular Volume 93, Mean Corpuscular Hemoglobin 29, Mean Corpuscular Hemoglobin Concent 32, Red Cell Distribution Width 19.4H, Platelet Count 60L, Mean Platelet Volume 9.9, Neutrophils (%) (Auto) 67, Lymphocytes (%) (Auto) 8L, Monocytes (%) (Auto) 22H, Eosinophils (%) (Auto) 1, Basophils (%) (Auto) 2, Neutrophils # (Auto) 2.6, Lymphocytes # (Auto) 0.3L, Monocytes # (Auto) 0.9, Eosinophils # (Auto) 0.0, Basophils # (Auto) 0.1, Sodium Level 138, Potassium Level 3.6, Chloride Level 99, Carbon Dioxide Level 29, Anion Gap 10, Blood Urea Nitrogen 8, Creatinine 0.56L, Estimat Glomerular Filtration Rate > 60, BUN/Creatinine Ratio 14, Glucose Level 87, Calcium Level 7.2L, Phosphorus Level 3.2, Magnesium Level 1.4L, B-Type Natriuretic Peptide 154.3H, Procalcitonin 3.51H Microbiology 07/27/19 Blood Culture - Preliminary, Resulted No growth 07/27/19 Influenza Types A,B Antigen ([facility]) - Final, Complete 07/27/19 Urine Culture - Final, Complete NO GROWTH A/P-Cardiology Assessment/Admission Diagnosis Sepsis and hypotension - management per medical services UTI Probable pneumonia Acute on chronic diastolic CHF Re-current anemia of undetermined etiology H/o PAF that has chronically been treated with flecainide (pt states years, but doesn't who started it when). OAC has been withheld d/t because of severe anemia of undetermined etiology (per recs of hospitalist during previous admission earlier this month) Echo of 07/11/19: LVEF 60-65%, mild MR, mod AI, mild to mod TR, grade 2 mccullough dysfunction, RVSP 47 mmHg MPI of Jul 13, 2019 showed no evidence of ischemia/infarction; LVEF 67% Severe anemia of undetermined etiology (she reports chronic anemia for which she has had multiple eval in the past with unknown cause). Stool positive for occult blood during previous admission - Dr. Payne of Hematology/Oncology previously consulted - reports a capsule endoscopy is planned for Friday Hypokalemia Discussion and Recomendations Management of sepsis per medical services A-fib with h/o PAF - resume home dose of Flecainide Resume Coreg Continue to hold OAC for reasons noted above Monitor lab Transfuse as indicated IV diuretics Replace electrolytes Further recs will be based on her hospital course We would like to thank Medical Services for this consult Clinical Quality Measures DVT/VTE Risk/Contraindication: Risk Factor Score Per Nursin RFS Level Per Nursing on Admit: 4+=Very High Contraindications-Pharm: Other *list below* Other: Pt receiving blood transfusion, possible bleeding so no order for medication indicated. Pt does have SCD's ordered and on. ANA FINLEY MD FACP FACC CCDS Jul 28, 2019 21:41 POS
[2019-07-29] VITALS (7 sets, daily range): BP systolic 93–120; BP diastolic 50–62
[2019-07-29] MEDS ORDERED: MEROPENEM 500 MG VIAL (MERREM) IV ONE (00:30)
[2019-07-29] MEDS: MEROPENEM 500 MG/SWFI 10 ML IV PUSH IV SCH ×8 (00:35→18:08)
[2019-07-29] MEDS: RT-ALBUTEROL/IPRATROPIUM 3 ML (DUONEB) VIAL INH SCH ×5 (02:35→21:42)
--- NOTE | 2019-07-29 04:23 | Pulmonary Progress Note ---
Sepsis Event Evaluation Height, Weight, BMI Height: '" Weight: lbs. oz. kg; 21.00 BMI Method:Estimated Focused Exam Lactate Level 07/27/19 15:55: Lactic Acid Level 1.74 Time of Focused Exam: 18:46 Exam Exam Vital Signs Date Time Temp Pulse Resp B/P (MAP) Pulse Ox O2 Delivery O2 Flow Rate FiO2 07/29/19 04:01 36.7 83 16 102/60 (74) 98 Nasal Cannula 2.00 07/29/19 02:34 93 Nasal Cannula 2.00 07/29/19 01:00 74 07/29/19 00:21 36.7 75 18 94/50 (65) 97 Nasal Cannula 2.00 07/28/19 22:05 97 Nasal Cannula 1.00 07/28/19 21:45 97 Nasal Cannula 1.00 07/28/19 19:38 36.3 85 20 103/51 (68) 92 Nasal Cannula 2.00 07/28/19 19:00 90 07/28/19 18:13 90 Room Air 07/28/19 16:48 36.0 87 16 100/55 (70) 93 Room Air 07/28/19 15:11 93 Nasal Cannula 1.00 07/28/19 13:10 37.1 93 18 91/50 (64) Nasal Cannula 2.00 07/28/19 13:00 94 07/28/19 12:00 36.7 103 20 96/56 (69) 95 Nasal Cannula 2.00 07/28/19 10:00 94 Nasal Cannula 2.00 07/28/19 09:50 37.7 130 22 109/45 (66) 94 Nasal Cannula 2.00 07/28/19 09:40 37.7 133 91 28 07/28/19 09:01 37.3 07/28/19 08:00 129 20 122/49 (73) 88 Room Air 07/28/19 07:50 96 Nasal Cannula 2.00 07/28/19 07:00 118 07/28/19 06:31 100 Nasal Cannula 2.00 07/28/19 06:31 103 18 100 Room Air 07/28/19 06:00 83 15 142/61 (88) Nasal Cannula 2.00 07/28/19 05:00 83 15 138/60 (86) Nasal Cannula 2.00 I & O 07/29/19 07:00 Intake Total 1860 ml Output Total 900 ml Balance 960 ml Height & Weight Height: '" Weight: lbs. oz. kg; 21.00 BMI Method:Estimated General Appearance: No Apparent Distress, Chronically ill, Thin HEENT: PERRL/EOMI, Other (dry mucous membranes) Neck: Normal Inspection, Supple Respiratory: Lungs Clear, Normal Breath Sounds, No Respiratory Distress Cardiovascular: No Murmur, Irregularly Irregular, Tachycardia Capillary Refill: Less Than 3 Seconds Extremity: Normal Inspection, Non Tender, Pedal Edema Neurologic/Psychiatric: Alert, Oriented x3, No Motor/Sensory Deficits, Normal Mood/Affect Skin: Warm/Dry, Pallor Results Lab Laboratory Tests 07/27/19 15:55 07/28/19 01:38 07/28/19 03:08 Assessment/Plan Assessment/Plan UTI with sepsis and PNA - Merrem and vanco -Hernandez cultures pending -MRSA swab pending -No fever Pulmonary edema -Check BNP -Start Lasix and decrease IVF Mild anemia -s/p 1 unit PRBC -Hold anticoagulation -Check occult stool - was positive last hospitalization -Pt is colonoscopy on Friday in [place] Pancytopenia HARLEY GAMA DO Jul 29, 2019 04:22 POS
[2019-07-29 05:28] LABS: BASOPHILS % (AUTO) 1 % (0-10); EOSINOPHILS % (AUTO) 0 % (0-10); HEMATOCRIT 27 % (35-52); HEMOGLOBIN 8.6 G/DL (11.5-16.0); LYMPHOCYTES # (AUTO) 0.5 X 10^3 (1.0-4.0); LYMPHOCYTES % (AUTO) 10 % (12-44); MEAN CORPUSCULAR HEMOGLOBIN 28 PG (25-34); MEAN CORPUSCULAR HGB CONC 32 G/DL (32-36); MEAN CORPUSCULAR VOLUME 90 FL (80-99); MEAN PLATELET VOLUME 10.2 FL (7.4-10.4); MONOCYTES # (AUTO) 0.9 X 10^3 (0.0-1.0); MONOCYTES % (AUTO) 19 % (0-12); NEUTROPHILS # (AUTO) 3.3 X 10^3 (1.8-7.8); NEUTROPHILS % (AUTO) 70 % (42-75); PLATELET COUNT 74 10^3/uL (130-400); RED CELL DISTRIBUTION WIDTH 19.7 % (10.0-14.5); WHITE BLOOD COUNT 4.7 10^3/uL (4.3-11.0)
[2019-07-29 06:10] LABS: BUN/CREATININE RATIO 18; CALCIUM 7.2 MG/DL (8.5-10.1); CARBON DIOXIDE 28 MMOL/L (21-32); CHLORIDE 97 MMOL/L (98-107); CREATININE SERUM 0.65 MG/DL (0.60-1.30); GFR ESTIMATED > 60; GLUCOSE 84 MG/DL (70-105); MAGNESIUM 1.5 MG/DL (1.6-2.4); PHOSPHORUS 2.1 MG/DL (2.3-4.7); POTASSIUM 3.4 MMOL/L (3.6-5.0); SODIUM 134 MMOL/L (135-145)
[2019-07-29] MEDS: KCL 20 MEQ TAB (K-DUR) PO SCH ×2 (06:25→06:28)
[2019-07-29] MEDS ORDERED: POT PHOS/NA PHOS (K-PHOS NEUTRAL) PO ONE (06:30)
[2019-07-29] MEDS ORDERED: MAGNESIUM 1 GM/100 ML IVPB 200 ML IV ONE (06:43)
[2019-07-29] MEDS: MAGNESIUM 1 GM/100 ML IVPB 100 ML IV SCH ×3 (06:47→10:58)
[2019-07-29] MEDS ORDERED: POT PHOS/NA PHOS (K-PHOS NEUTRAL) ONE (06:52)
--- NOTE | 2019-07-29 07:41 | Diagnostic Imaging Report ---
EXAM: CHEST 1 VIEW, AP/PA ONLY INDICATION: Sepsis. Pneumonia. Altered mental status. COMPARISON: 07/28/2019. FINDINGS: Cardiomegaly and mild pulmonary venous congestion are stable. Small bilateral pleural effusions. No pneumothorax. Postoperative changes in the cervical spine. IMPRESSION: Overall stable exam including mild pulmonary vascular congestion and small bilateral pleural effusions. Dictated by: Dictated on workstation # [id number]
[2019-07-29] MEDS ORDERED: FUROSEMIDE 20 MG (LASIX) TAB PO SCH (09:00)
[2019-07-29] MEDS: CARVEDILOL 6.25 MG (COREG) TAB PO SCH ×2 (09:02→20:24)
--- NOTE | 2019-07-29 09:47 | Progress Note - Hospitalist ---
Subjective HPI/CC On Admission Date Seen by Provider: Jul 29, 2019 Time Seen by Provider: 09:00 fever, tachycardia, and hypotension Subjective/Events-last exam She reports feeling better today. She still feels short of breath. She feels a bit nauseous. She has a cough. She denies fevers and chills. She denies chest pain, abdominal pain, vomiting, and diarrhea. Focused Exam Lactate Level 07/27/19 15:55: Lactic Acid Level 1.74 Time of Focused Exam: 18:46 Objective Exam Vital Signs Vital Signs Date Time Temp Pulse Resp B/P (MAP) Pulse Ox O2 Delivery O2 Flow Rate FiO2 07/29/19 07:17 97 Nasal Cannula 2.00 07/29/19 06:55 80 07/29/19 04:01 36.7 16 102/60 (74) 07/28/19 09:40 28 Capillary Refill : Less Than 3 Seconds General Appearance: No Apparent Distress, Chronically ill HEENT: PERRL/EOMI, Pharynx Normal Neck: Normal Inspection, Supple Respiratory: Lungs Clear, Normal Breath Sounds, No Respiratory Distress, Other (wearing nasal cannula) Cardiovascular: No Murmur, Irregularly Irregular Gastrointestinal: Normal Bowel Sounds, Non Tender, Soft Extremity: Normal Inspection, Non Tender Neurologic/Psychiatric: Alert, Oriented x3 Skin: Warm/Dry, Pallor Results/Procedures Lab Laboratory Tests 07/29/19 04:55 Patient resulted labs reviewed. Imaging: Reviewed Imaging Report Assessment/Plan Assessment and Plan Assess & Plan/Chief Complaint Severe sepsis HCAP -Stop Vanc -Continue Merrem -Cultures with no growth to date -Pulm following Hypokalemia Hypomagnesemia Hypophosphatemia -Monitor and replace as needed Atrial fibrillation with RVR -Continue Flecainide and Coreg -Holding Coreg this morning due to soft blood pressures -Cardiology following -No anticoagulation due to recurrent GI bleeding Recurrent GI bleeding Chronic blood loss anemia -Hgb 8.6, stable -Appointment scheduled with Dr. Pereira on Friday Thrombocytopenia -Improving -Likely decreased due to severe sepsis -Continue to monitor DVT Prophylaxis: held due to recurrent GI bleeding Diagnosis/Problems Diagnosis/Problems (1) Severe sepsis Status: Resolved Resolution Date/Time: 07/29/19 @ 09:48 (2) HCAP (healthcare-associated pneumonia) Status: Acute (3) Thrombocytopenia Status: Acute (4) Chronic blood loss anemia Status: Chronic (5) Recurrent gastrointestinal hemorrhage Status: Chronic (6) Hypokalemia Status: Acute (7) Hypomagnesemia Status: Acute (8) Hypophosphatemia Status: Acute Clinical Quality Measures DVT/VTE Risk/Contraindication: Risk Factor Score Per Nursin RFS Level Per Nursing on Admit: 4+=Very High Contraindications-Pharm: Other *list below* Other: Pt receiving blood transfusion, possible bleeding so no order for medication indicated. Pt does have SCD's ordered and on. DENISA ESQUIVEL MD Jul 29, 2019 09:47 POS
[2019-07-29] MEDS: PANTOPRAZOLE 40 MG (PROTONIX) VIAL IV SCH (10:08)
[2019-07-29] MEDS: FUROSEMIDE 40 MG/4 ML INJ (LASIX) IVP SCH (10:08)
[2019-07-29] MEDS: FLECAINIDE 100 MG (TAMBOCOR) TAB PO SCH ×2 (10:13→20:25)
[2019-07-29] MEDS ORDERED: MAGNESIUM 1 GM/100 ML IVPB 100 ML IV ONE (10:55)
[2019-07-29] MEDS ORDERED: KCL 20 MEQ TAB (K-DUR) PO NR (12:00)
[2019-07-29] MEDS ORDERED: RT-ALBUTEROL/IPRATROPIUM 3 ML (DUONEB) VIAL INH PRN (13:00)
--- NOTE | 2019-07-29 15:18 | Progress Note - Cardiology ---
Cardiology SOAP Progress Note Subjective: Gen weakness and malaise No cp or palp or syncope Gets short of breath with mild exertion Denies leg swelling Objective: I&O/Vital Signs 07/29/19 07/29/19 07/29/19 07/29/19 04:01 06:55 07:17 08:00 Temp 36.7 36.2 Pulse 83 80 80 Resp 16 16 B/P (MAP) 102/60 (74) 93/53 (66) Pulse Ox 98 97 93 O2 Delivery Nasal Cannula Nasal Cannula Nasal Cannula O2 Flow Rate 2.00 2.00 2.00 07/29/19 07/29/19 07/29/19 07/29/19 08:00 10:46 11:01 12:00 Temp 36.7 37.0 Pulse 83 85 Resp 16 B/P (MAP) 120/58 (78) Pulse Ox 95 95 96 O2 Delivery Nasal Cannula Nasal Cannula Nasal Cannula O2 Flow Rate 2.00 2.00 2.00 FiO2 28 07/29/19 07/29/19 12:58 14:55 Pulse 90 Pulse Ox 96 O2 Delivery Nasal Cannula O2 Flow Rate 2.00 07/29/19 00:00 Intake Total 1860 ml Output Total 900 ml Balance 960 ml Constitutional: AAO x 3, other (thin, frail) Respiratory: No accessory muscle use, No respiratory distress; chest expansion is symmetric, chest is bilaterally symmetric, other (good air entry) Cardiovascular: irregularly irregular; No JVD; S1 and S2 Gastrointestional: No tender; soft, audible bowel sounds (hypoactive) Extremities: other (mild to mod bilat LE swelling) Neurologic/Psychiatric: grossly intact (moves extremities) Skin: normal color, warm/dry Results/Procedures: Labs Laboratory Tests 07/29/19 04:55: White Blood Count 4.7, Red Blood Count 3.03L, Hemoglobin 8.6L, Hematocrit 27L, Mean Corpuscular Volume 90, Mean Corpuscular Hemoglobin 28, Mean Corpuscular Hemoglobin Concent 32, Red Cell Distribution Width 19.7H, Platelet Count 74L, Mean Platelet Volume 10.2, Neutrophils (%) (Auto) 70, Lymphocytes (%) (Auto) 10L , Monocytes (%) (Auto) 19H, Eosinophils (%) (Auto) 0, Basophils (%) (Auto) 1, Neutrophils # (Auto) 3.3, Lymphocytes # (Auto) 0.5L, Monocytes # (Auto) 0.9, Eosinophils # (Auto) 0.0, Basophils # (Auto) 0.0, Sodium Level 134L, Potassium Level 3.4L, Chloride Level 97L, Carbon Dioxide Level 28, Anion Gap 9, Blood Urea Nitrogen 12, Creatinine 0.65, Estimat Glomerular Filtration Rate > 60, BUN/Creatinine Ratio 18, Glucose Level 84, Calcium Level 7.2L, Phosphorus Level 2.1L, Magnesium Level 1.5L Microbiology 07/27/19 Blood Culture - Preliminary, Resulted No growth 07/27/19 MRSA Screen - Final, Complete MRSA not isolated 07/27/19 Urine Culture - Final, Complete NO GROWTH Laboratory Tests 07/27/19 15:55 07/28/19 01:38 07/28/19 03:08 07/29/19 04:55 A/P: Assessment: Sepsis and hypotension - management per Medical Services UTI Probable pneumonia Acute on chronic diastolic CHF Re-current anemia of undetermined etiology H/o PAF that has chronically been treated with flecainide (pt states years, but doesn't who started it when). OAC has been withheld d/t because of severe anemia of undetermined etiology (per recs of hospitalist during previous admission earlier this month) Echo of 07/11/19: LVEF 60-65%, mild MR, mod AI, mild to mod TR, grade 2 mccullough dys function, RVSP 47 mmHg MPI of Jul 13, 2019 showed no evidence of ischemia/infarction; LVEF 67% Severe anemia of undetermined etiology (she reports chronic anemia for which she has had multiple eval in the past with unknown cause). Stool positive for occult blood during previous admission - Dr. Payne of Hematology/Oncology previously consulted - reports a capsule endoscopy is planned for Friday Hypokalemia Plan: * Complex management due to multiple comorbidities * Replenish K * I discussed her CV issues with her and her fam * Continue Flecainide (which she has tolerated well for years, according to her) to prevent A Fib because she is not a suitable candidate for OAC * Management of sepsis and anemia is with the Med Svce * Monitor labs ANA FINLEY MD [facility] CCDS Jul 29, 2019 15:18 POS
--- NOTE | 2019-07-29 16:00 | NUR ---
TEMP SPIKE 39.2. DR. ESQUIVEL NOTIFIED. TYLENOL 650MG PO AND BLOOD CULTURES ORDERED. FAMILY AT BEDSIDE.
[2019-07-29] MEDS: ACETAMINOPHEN 325 MG TABLET PO PRN ×2 (16:10→20:25)
[2019-07-30] VITALS (7 sets, daily range): BP systolic 89–168; BP diastolic 56–73
[2019-07-30] MEDS: MEROPENEM 500 MG/SWFI 10 ML IV PUSH IV SCH ×6 (00:47→17:56)
[2019-07-30] MEDS: RT-ALBUTEROL/IPRATROPIUM 3 ML (DUONEB) VIAL INH SCH ×4 (03:41→19:36)
[2019-07-30 05:26] LABS: BASOPHILS # (AUTO) 0.1 10^3/uL (0.0-0.1); BASOPHILS % (AUTO) 1 % (0-10); EOSINOPHILS % (AUTO) 1 % (0-10); HEMATOCRIT 27 % (35-52); HEMOGLOBIN 8.3 G/DL (11.5-16.0); LYMPHOCYTES # (AUTO) 0.6 X 10^3 (1.0-4.0); LYMPHOCYTES % (AUTO) 14 % (12-44); MEAN CORPUSCULAR HEMOGLOBIN 29 PG (25-34); MEAN CORPUSCULAR HGB CONC 31 G/DL (32-36); MEAN CORPUSCULAR VOLUME 92 FL (80-99); MEAN PLATELET VOLUME 10.7 FL (7.4-10.4); MONOCYTES % (AUTO) 20 % (0-12); NEUTROPHILS % (AUTO) 64 % (42-75); PLATELET COUNT 56 10^3/uL (130-400); RED CELL DISTRIBUTION WIDTH 19.9 % (10.0-14.5); WHITE BLOOD COUNT 4.7 10^3/uL (4.3-11.0)
[2019-07-30 05:50] LABS: BUN/CREATININE RATIO 21; CALCIUM 7.2 MG/DL (8.5-10.1); CARBON DIOXIDE 26 MMOL/L (21-32); CHLORIDE 98 MMOL/L (98-107); CREATININE SERUM 0.56 MG/DL (0.60-1.30); GFR ESTIMATED > 60; GLUCOSE 80 MG/DL (70-105); MAGNESIUM 1.9 MG/DL (1.6-2.4); PHOSPHORUS 3.2 MG/DL (2.3-4.7); POTASSIUM 4.5 MMOL/L (3.6-5.0); SODIUM 133 MMOL/L (135-145)
[2019-07-30] MEDS: KCL 20 MEQ TAB (K-DUR) PO SCH ×2 (06:17→06:38)
--- NOTE | 2019-07-30 06:26 | Pulmonary Progress Note ---
Sepsis Event Evaluation Height, Weight, BMI Height: '" Weight: lbs. oz. kg; 21.00 BMI Method:Estimated Focused Exam Lactate Level 07/27/19 15:55: Lactic Acid Level 1.74 Time of Focused Exam: 18:46 Exam Exam Vital Signs Date Time Temp Pulse Resp B/P (MAP) Pulse Ox O2 Delivery O2 Flow Rate FiO2 07/30/19 04:00 36.1 71 17 117/57 (77) 98 Nasal Cannula 2.00 07/30/19 03:41 91 Nasal Cannula 2.00 07/30/19 01:00 64 07/30/19 00:12 35.7 65 18 115/61 (79) 98 Nasal Cannula 2.00 07/29/19 21:00 Nasal Cannula 2.00 07/29/19 19:40 36.2 82 16 93/52 (66) 95 Nasal Cannula 2.00 07/29/19 19:00 82 07/29/19 18:08 38.0 07/29/19 16:59 38.0 07/29/19 16:10 39.2 07/29/19 16:00 39.2 101 18 120/62 (81) 95 Nasal Cannula 2.00 07/29/19 14:55 96 Nasal Cannula 2.00 07/29/19 12:58 90 07/29/19 12:00 37.0 85 16 120/58 (78) 96 Nasal Cannula 2.00 07/29/19 11:01 95 Nasal Cannula 2.00 07/29/19 10:46 36.7 83 95 28 07/29/19 08:00 Nasal Cannula 2.00 07/29/19 08:00 36.2 80 16 93/53 (66) 93 Nasal Cannula 2.00 07/29/19 07:17 97 Nasal Cannula 2.00 07/29/19 06:55 80 I & O 07/30/19 07:00 Intake Total 2370 ml Output Total 2850 ml Balance -480 ml Height & Weight Height: '" Weight: lbs. oz. kg; 21.00 BMI Method:Estimated General Appearance: No Apparent Distress, Chronically ill HEENT: PERRL/EOMI, Pharynx Normal Neck: Normal Inspection, Supple Respiratory: Lungs Clear, Normal Breath Sounds, No Respiratory Distress, Other (wearing nasal cannula) Cardiovascular: No Murmur, Irregularly Irregular Capillary Refill: Less Than 3 Seconds Extremity: Normal Inspection, Non Tender Neurologic/Psychiatric: Alert, Oriented x3 Skin: Warm/Dry, Pallor Results Lab Laboratory Tests 07/29/19 04:55 07/30/19 04:50 Assessment/Plan Assessment/Plan UTI with sepsis and PNA - Merrem -Hernandez cultures pending -MRSA swab neg -No fever Pulmonary edema - Lasix Mild anemia -s/p 1 unit PRBC -Check occult stool - was positive last hospitalization -Pt is colonoscopy on Friday in [place] Connelly DO Jul 30, 2019 06:26 POS
--- NOTE | 2019-07-30 07:06 | Diagnostic Imaging Report ---
Reason for examination: Sepsis and pneumonia. Frontal view of the chest was obtained and compared to yesterday. The heart size is at the upper limit of normal. No mediastinal widening. Bilateral infiltrates with pulmonary vascular congestion. Findings could represent pulmonary edema and/or infectious/inflammatory infiltrate. This does appear to be slightly worse today especially on the left side today. No pneumothorax. IMPRESSION: 1. Bilateral interstitial and alveolar infiltrates with central pulmonary vascular congestion. This could represent pulmonary edema and/or infectious/inflammatory infiltrate. Today's study is slightly worse especially on the left. Dictated by: Dictated on workstation # [id number]
[2019-07-30] MEDS: CARVEDILOL 6.25 MG (COREG) TAB PO SCH ×2 (09:05→21:16)
[2019-07-30] MEDS: FLECAINIDE 100 MG (TAMBOCOR) TAB PO SCH ×2 (09:05→21:15)
[2019-07-30] MEDS: PANTOPRAZOLE 40 MG (PROTONIX) VIAL IV SCH (09:07)
[2019-07-30] MEDS: FUROSEMIDE 40 MG/4 ML INJ (LASIX) IVP SCH (09:07)
--- NOTE | 2019-07-30 10:06 | ST Dysphagia Evaluation ---
Speech Evaluation-General Medical Diagnosis Severe Sepsis due to pneumonia Onset Date: Jul 29, 2019 Therapy Diagnosis Therapy Diagnosis: Oropharyngeal Dysphagia Precautions Precautions: Aspiration Precautions/Isolations: Aspiration Referral Referring Physician: Dr. Alba Reason for Referral: Evaluation/Treatment Medical History Pertinent Medical History: Atrial Fib, COPD, DM, HTN, Rheumatoid Arthritis Reviewed History: Yes Speech PLF/Current-Dysphagia Prior Level of Function Patient lives with her . Subjective Patient was cooperative with the Bedside Dysphagia Evaluation Cognitive Status Patient Orientation: Person, Place Oral Motor Skills Denture Type: Full- Upper & Lower Ability to Follow Directions: Good Diet as tolerated Oral Expression Ability: No Impairment Voice Voice Phonatory-Based Quality: Weak Voice Pitch: Normal Voice Loudness: Moderately Soft/Quiet Face Facial Symmetry: Symmetrical Oral-Facial Assessment Oral-Facial Dentition: Normal Labial Seal Description: Weak Smile: Reduced ROM, Poor Coordination Puff Cheeks: Reduced Strength Lingual Protrusion: Normal Lingual ROM: Normal Lingual Strength: Normal Pharynx Velopharyngeal Move.: Normal Volitional Dry Swallow: Yes Can Clear Throat Volitionally: Yes Productive Cough: No Productive Throat Clear: No Dysphagia Evaluation Consistencies Presented: Thin Liquid, Mechanical Soft, Pureed Oral Phase: Reduced Oral Transit Oral phase within normal limits for thin and puree. Patient demo decreased mastication for mechanical soft. Pharyngeal Phase: Decreased A/P Bolus Transit, Delayed Swallow With mechanical soft only. Dietary Recommendations: Mechanical Soft Liquid Recommendations: Thin Swallowing Precautions: Alternate Liquids/Solids, Liquids from Straw, Liquids from Spoon, Small Bites and Sips, Sitting Upright 90 Degrees, Sitting 90 Degrees 30 Post Intake Dysphagia Evaluation Summary Patient is a 74 year old female who was admitted to the hospital s/p severe sepsis due to pneumonia. Bedside Dysphagia Evaluation was completed this date. Thin liquids with 1/2 tsp presentations x2 and small sips via straw x2 without difficulty. Puree and mechanical soft presentations at 1/2 tsp with decreased bolus management with mechanical soft. However the patient exhibited oral clearing without s/s of aspiration. Patient is recommended for Dysphagia II with thin. This information was provided to her nurseLyric and written on the white board. Barriers to Learning Patient's age and illness Speech Short Term Goals Short Term Goals Short Term Goals 1) Patient will tolerate least restrictive diet level without s/s of aspiration at 80% or greater. 2) Patient/caregiver will utilize compensatory strategies as trained at 90% or greater with minimal cues. Speech Senior Living Goals Senior Living Goals The patient will maintain adequate nutrition/hydration via safe effective swallow function. Speech-Plan Patient/Family Goals Patient/Family Goals: Patient's plans for her to return home upon hospital discharge. Treatment Plan Speech Therapy Treatment Plan: Continue Plan of Care Patient will receive skilled ST for dysphagia. Treatment Duration: Aug 04, 2019 Frequency: 3 times per week Estimated Hrs Per Day: .25 hour per day Rehab Potential: Guarded Barriers to Learning: Patient's age and illness Pt/Family Agrees to Plan: Yes Safety Risks/Education Teaching Recipient: Patient Teaching Methods: Discussion Response to Teaching: Verbalize Understanding Education Topics Provided: Safety of oral intake, diet level and compensatory strategies. Time Speech Therapy Time In: 08:45 Speech Therapy Time Out: 09:00 Total Billed Time: 15 Billed Treatment Time 1[address] ST Jul 30, 2019 10:06 POS
[2019-07-30] MEDS: ACETAMINOPHEN 325 MG TABLET PO PRN (10:53)
[2019-07-30] MEDS: ACETAMINOPHEN 650 MG SUPP (TYLENOL) PR PRN (11:00)
--- NOTE | 2019-07-30 13:04 | Progress Note - Hospitalist ---
Subjective HPI/CC On Admission Date Seen by Provider: Jul 30, 2019 Time Seen by Provider: 09:10 fever, tachycardia, and hypotension Subjective/Events-last exam She is very tired today. She is not very cooperative. She denies pain. She does not feel well, but will not elaborate. Focused Exam Lactate Level 07/27/19 15:55: Lactic Acid Level 1.74 Time of Focused Exam: 18:46 Objective Exam Vital Signs Vital Signs Date Time Temp Pulse Resp B/P (MAP) Pulse Ox O2 Delivery O2 Flow Rate FiO2 07/30/19 12:22 121 07/30/19 12:00 39.4 12 107/62 (77) 93 Nasal Cannula 2.00 07/29/19 10:46 28 Capillary Refill : Less Than 3 SecondsLess Than 3 Seconds General Appearance: No Apparent Distress, Chronically ill HEENT: PERRL/EOMI, Pharynx Normal Neck: Normal Inspection, Supple Respiratory: Lungs Clear, Normal Breath Sounds, No Respiratory Distress Cardiovascular: Regular Rate, Rhythm, No Edema, No Murmur Gastrointestinal: Normal Bowel Sounds, Non Tender, Soft Extremity: Normal Inspection, Non Tender, Pedal Edema Neurologic/Psychiatric: Other (lethargic, uncooperative) Skin: Warm/Dry, Pallor Results/Procedures Lab Laboratory Tests 07/30/19 04:50 Patient resulted labs reviewed. Imaging: Reviewed Imaging Report Assessment/Plan Assessment and Plan Assess & Plan/Chief Complaint Fever of unknown origin -Recurrent fever after multiple days of broad spectrum antibiotics -Ongoing issue -Previously worked up for fever at [facility] -Workup revealed mildly elevated inflammatory markers, nonspecific -LDH elevated -Obtain CT Chest/Abdomen/Pelvis Severe sepsis HCAP -Continue Merrem -Cultures with no growth to date -Pulm following Hypokalemia Hypomagnesemia Hypophosphatemia -Monitor and replace as needed Atrial fibrillation with RVR -Continue Flecainide and Coreg -Cardiology following -No anticoagulation due to recurrent GI bleeding Recurrent GI bleeding Chronic blood loss anemia -Hgb 8.3, stable -Appointment scheduled with Dr. Pereira on Friday for further evaluation Thrombocytopenia -Likely decreased due to severe sepsis -Continue to monitor DVT Prophylaxis: held due to recurrent GI bleeding Diagnosis/Problems Diagnosis/Problems (1) Fever of unknown origin Status: Chronic (2) Severe sepsis Status: Resolved Resolution Date/Time: 07/29/19 @ 09:48 (3) HCAP (healthcare-associated pneumonia) Status: Acute (4) Thrombocytopenia Status: Acute (5) Chronic blood loss anemia Status: Chronic (6) Recurrent gastrointestinal hemorrhage Status: Chronic (7) Hypokalemia Status: Acute (8) Hypomagnesemia Status: Acute (9) Hypophosphatemia Status: Acute Clinical Quality Measures DVT/VTE Risk/Contraindication: Risk Factor Score Per Nursin RFS Level Per Nursing on Admit: 4+=Very High Contraindications-Pharm: Other *list below* Other: Pt receiving blood transfusion, possible bleeding so no order for medication indicated. Pt does have SCD's ordered and on. DENISA ESQUIVEL MD Jul 30, 2019 13:04 POS
--- NOTE | 2019-07-30 13:36 | Diagnostic Imaging Report ---
PROCEDURE: CT chest, abdomen, and pelvis without contrast. TECHNIQUE: Multiple contiguous axial images were obtained through the chest, abdomen, and pelvis without the use of intravenous contrast. Auto Exposure Controls were utilized during the CT exam to meet ALARA standards for radiation dose reduction. INDICATION: Sepsis. Pneumonia. Fever of unknown origin. COMPARISON: None FINDINGS: CT CHEST: There is abnormal prominent bilateral axillary adenopathy. The largest lymph node is seen in the left axilla and measures 3.4 x 2.5 cm. No abnormal mediastinal or hilar adenopathy is seen on this noncontrast exam. Heart size is mildly prominent. There is a small pericardial effusion, which may be within physiologic limits. Note is also made of moderate calcified aortic and coronary atherosclerosis. Evaluation of the lung cortez demonstrates large bilateral pleural effusions with associated compressive atelectasis. There is also nonspecific 1.1 cm groundglass nodular density within the left lateral apex (image 14, series 2). No pneumothorax is seen on either side. Osseous structures show no acute abnormalities. No lytic or blastic bony lesions are identified. CT ABDOMEN: Normal appendix could not be adequately identified, but there is no pericecal inflammation. Moderate air and stool is noted scattered throughout the colon. Small bowel loops are nondistended. There is moderate splenomegaly. Spleen measures approximately 13.3 x 9.7 x 13 cm. No focal splenic lesions are identified on this noncontrast exam. The liver, kidneys, adrenals, and pancreas have an unremarkable noncontrast CT appearance as well. There is trace amount of free fluid within the lower pelvis. There is no loculated fluid collection or free air within the abdomen. No abnormal mesenteric or retroperitoneal adenopathy is seen. Osseous structures show no acute abnormalities. CT PELVIS: Harper catheter is present within urinary bladder. Urinary bladder is decompressed and unopacified. There is trace amount of free fluid within the pelvis. There is no loculated fluid collection or free air. No abnormal pelvic adenopathy is seen. Note is made of moderate scattered calcified aortic and arterial atherosclerosis. Osseous structures show no acute abnormalities. IMPRESSION: 1. Moderate splenomegaly with multiple abnormally enlarged bilateral axillary lymph nodes. Findings are concerning for lymphoproliferative process such as lymphoma. The axillary lymph nodes do appear to be in a position amenable to ultrasound-guided biopsy. 2. Large bilateral pleural effusions with associated bibasilar atelectasis. 3. Nonspecific groundglass nodular density of the left apex. 3 month follow-up is advised. 4. Mild cardiomegaly. 5. Moderate scattered calcified aorta, coronary, and arterial atherosclerosis. 6. Small amount of free fluid within the pelvis. 7. Moderate colonic air in stool. Please correlate for underlying constipation. Dictated by: Dictated on workstation # [id number]
--- NOTE | 2019-07-30 14:05 | NUR ---
Pastoral care visit.
--- NOTE | 2019-07-30 17:38 | Progress Note - Cardiology ---
Cardiology SOAP Progress Note Subjective: Feels weak and tired Appetite has been poor, but slightly improved today No cp or palp or syncope or shortness of breath at rest No N/V Objective: I&O/Vital Signs 07/30/19 07/30/19 07/30/19 07/30/19 06:36 07:00 08:00 08:00 Temp 36.6 Pulse 78 102 Resp 22 B/P (MAP) 168/73 (104) Pulse Ox 91 98 O2 Delivery Nasal Cannula Nasal Cannula Nasal Cannula O2 Flow Rate 2.00 2.00 2.00 07/30/19 07/30/19 07/30/19 07/30/19 10:50 11:00 12:00 12:22 Temp 38.5 38.3 39.4 Pulse 121 121 Resp 12 B/P (MAP) 107/62 (77) Pulse Ox 93 O2 Delivery Nasal Cannula O2 Flow Rate 2.00 07/30/19 07/30/19 07/30/19 07/30/19 13:32 13:32 14:50 15:50 Temp 37.3 37.3 36.7 Pulse 84 Resp 14 B/P (MAP) 89/56 (67) Pulse Ox 93 95 O2 Delivery Nasal Cannula Nasal Cannula O2 Flow Rate 2.00 3.00 07/30/19 00:00 Intake Total 1900 ml Output Total 2300 ml Balance -400 ml Constitutional: AAO x 3, other (thin, frail) Respiratory: No accessory muscle use, No respiratory distress; chest expansion is symmetric, chest is bilaterally symmetric, other (good air entry) Cardiovascular: irregularly irregular; No JVD; S1 and S2 Gastrointestional: No tender; soft, audible bowel sounds (hypoactive) Extremities: other (mild to mod bilat LE swelling) Neurologic/Psychiatric: grossly intact (moves extremities) Skin: normal color, warm/dry Results/Procedures: Labs Laboratory Tests 07/30/19 04:50: White Blood Count 4.7, Red Blood Count 2.90L, Hemoglobin 8.3L, Hematocrit 27L, Mean Corpuscular Volume 92, Mean Corpuscular Hemoglobin 29, Mean Corpuscular Hemoglobin Concent 31L, Red Cell Distribution Width 19.9H, Platelet Count 56L, Mean Platelet Volume 10.7H, Neutrophils (%) (Auto) 64, Lymphocytes (%) (Auto) 14, Monocytes (%) (Auto) 20H, Eosinophils (%) (Auto) 1, Basophils (%) (Auto) 1, Neutrophils # (Auto) 3.0, Lymphocytes # (Auto) 0.6L, Monocytes # (Auto) 1.0, Eosinophils # (Auto) 0.0, Basophils # (Auto) 0.1, Sodium Level 133L, Potassium Level 4.5, Chloride Level 98, Carbon Dioxide Level 26, Anion Gap 9, Blood Urea Nitrogen 12, Creatinine 0.56L, Estimat Glomerular Filtration Rate > 60, BUN/Creatinine Ratio 21, Glucose Level 80, Calcium Level 7.2L, Phosphorus Level 3.2, Magnesium Level 1.9 Microbiology 07/29/19 Blood Culture - Preliminary, Resulted No growth 07/27/19 MRSA Screen - Final, Complete MRSA not isolated 07/27/19 Urine Culture - Final, Complete NO GROWTH Laboratory Tests 07/29/19 04:55 07/30/19 04:50 A/P: Assessment: Sepsis and hypotension - management per Medical Services UTI Probable pneumonia Chronic diastolic CHF Severe anemia of undetermined etiology (she reports chronic anemia for which she has had multiple eval in the past with unknown cause). Stool positive for occult blood during previous admission - Dr. Payne of Hematology/Oncology previously consulted H/o PAF that has chronically been treated with flecainide (pt states years, but doesn't who started it when). OAC has been withheld d/t because of severe anemia of undetermined etiology (per recs of hospitalist during previous admission earlier this month) Echo of 07/11/19: LVEF 60-65%, mild MR, mod AI, mild to mod TR, grade 2 mccullough dysfunction, RVSP 47 mmHg MPI of Jul 13, 2019 showed no evidence of ischemia/infarction; LVEF 67% Plan: * Management has been and remains very complex due to multiple comorbidities and severe anemia of which the etiology remains undiagnosed * Continue Flecainide (which she has tolerated well for years, according to her) to prevent A Fib because she is not a suitable candidate for OAC * Management of sepsis and anemia is with the Med Svce * Monitor labs ANA FINLEY MD FAC FAC CCDS Jul 30, 2019 17:38 POS
--- NOTE | 2019-07-30 18:40 | CONSULTATION REPORT ---
DATE OF SERVICE: 07/30/2019 ADMITTING PHYSICIAN: Dr. Alba. HISTORY OF PRESENT ILLNESS: The patient is a 74-year-old female with multiple medical problems as well as multiple recent hospitalizations including GI bleed, paroxysmal atrial fibrillation, anemia, fever, tachycardia as well as hypotension and shortness of breath. She was treated for sepsis with antibiotics and her electrolytes corrected. Her atrial fibrillation with rapid ventricular response is being evaluated by cardiology; however, anticoagulation was held due to her GI bleed. Her hemoglobin was 7.6 upon admission; however, after one unit of PRBC, her hemoglobin was 9.4. She already has an appointment scheduled to see gastroenterology in [place] next week. She also was found to have a palpable lymphadenopathy of the left axilla. A CT scan was performed of the chest and abdomen, which did show large bilateral pleural effusions as well as moderate splenomegaly and enlarged bilateral axillary lymph nodes. There was also nonspecific ground-glass nodular density in the left apex of the lung. PAST MEDICAL HISTORY: Atrial fibrillation, rheumatoid arthritis, gastroesophageal reflux disease, peptic ulcer disease, recurrent urinary tract infection, diabetes, anxiety, depression, valvular heart disease, atrial fibrillation, hypertension. PAST SURGICAL HISTORY: Appendectomy, bladder suspension, cholecystectomy and hysterectomy. ALLERGIES: CEPHALEXIN, PENICILLIN, IODINE, LINACLOTIDE, LUBIPROSTONE, PREDNISONE, VENLAFAXINE. MEDICATIONS: Aspirin 81 mg daily, atorvastatin 20 mg daily, budesonide inhaler b.i.d., carvedilol 6.25 mg b.i.d., citalopram 10 mg daily, Colace 100 mg b.i.d., conjugated estrogen 0.45 mg daily, famotidine 20 mg b.i.d., ferrous sulfate 325 mg daily, flecainide 100 mg b.i.d., furosemide 20 mg daily, ipratropium bromide nebulized breathing treatment q.i.d., metformin 500 mg daily, mirtazapine 15 mg daily, MiraLax p.r.n., promethazine p.r.n. SOCIAL HISTORY: Negative smoke, negative alcohol. FAMILY HISTORY: Noncontributory. VITAL SIGNS: Temperature 36.7, blood pressure 89/56, pulse 84, respirations 14, pulse ox 95% on 3 liters nasal cannula. REVIEW OF SYSTEMS: A well-nourished female, currently in no acute distress. She is not experiencing any shortness of breath or difficulty breathing. She does have exertional shortness of breath and mild cough. No chest pain, palpitations, diaphoresis. No nausea, vomiting with a history of constipation with a history of red blood per rectum in the past. She has been having intermittent fever, chills. No recent inadvertent weight loss. All other review of systems negative. PHYSICAL EXAMINATION: CHEST: A few scattered rales and rhonchi bilaterally. HEART: Regular, no murmurs. EXTREMITIES: No lower extremity edema, negative Homans sign. HEENT: No scleral icterus. NECK: No cervical lymphadenopathy. ABDOMEN: Soft, nontender, nondistended. SKIN: There is a palpable left axillary lymph node approximately [address] scan does show bilateral lymphadenopathy. LABORATORY DATA: WBC 4.7, hemoglobin 8.3, hematocrit 27, platelets 56. BUN 12, creatinine 0.56. her procalcitonin was also elevated at 8.11 and lactate dehydrogenase is 1650. ASSESSMENT AND PLAN: A 74-year-old female with nonspecific symptoms. She has also had episodes of fevers and failure to thrive. She was found to have bilateral axillary adenopathy. Due to her symptomatology and the axillary adenopathy as well as fevers and chills, we will proceed with an excisional biopsy of the left axillary lymph node and sent to pathology to evaluate for possible lymphoma. Job ID: [id number] DocumentID: [id number] Dictated Date: 07/30/2019 18:21:50 Cloth Piecer Date: 07/30/2019 18:40:18 Dictated By: ELIA RILEY MD
[2019-07-31] VITALS (11 sets, daily range): BP systolic 89–114; BP diastolic 41–55
[2019-07-31] MEDS: MEROPENEM 500 MG/SWFI 10 ML IV PUSH IV SCH ×6 (02:07→17:55)
[2019-07-31] MEDS: RT-ALBUTEROL/IPRATROPIUM 3 ML (DUONEB) VIAL INH SCH ×3 (02:12→14:52)
[2019-07-31 05:37] LABS: BASOPHILS % (AUTO) 1 % (0-10); EOSINOPHILS % (AUTO) 0 % (0-10); HEMATOCRIT 28 % (35-52); HEMOGLOBIN 8.6 G/DL (11.5-16.0); LYMPHOCYTES # (AUTO) 0.7 X 10^3 (1.0-4.0); LYMPHOCYTES % (AUTO) 12 % (12-44); MEAN CORPUSCULAR HEMOGLOBIN 28 PG (25-34); MEAN CORPUSCULAR HGB CONC 31 G/DL (32-36); MEAN CORPUSCULAR VOLUME 92 FL (80-99); MEAN PLATELET VOLUME 11.6 FL (7.4-10.4); MONOCYTES # (AUTO) 1.3 X 10^3 (0.0-1.0); MONOCYTES % (AUTO) 22 % (0-12); NEUTROPHILS # (AUTO) 3.8 X 10^3 (1.8-7.8); NEUTROPHILS % (AUTO) 65 % (42-75); PLATELET COUNT 74 10^3/uL (130-400); RED CELL DISTRIBUTION WIDTH 20.2 % (10.0-14.5); WHITE BLOOD COUNT 5.9 10^3/uL (4.3-11.0)
[2019-07-31 05:57] LABS: BUN/CREATININE RATIO 23; CALCIUM 7.6 MG/DL (8.5-10.1); CARBON DIOXIDE 26 MMOL/L (21-32); CHLORIDE 97 MMOL/L (98-107); CREATININE SERUM 0.66 MG/DL (0.60-1.30); GFR ESTIMATED > 60; GLUCOSE 78 MG/DL (70-105); MAGNESIUM 1.7 MG/DL (1.6-2.4); PHOSPHORUS 3.4 MG/DL (2.3-4.7); POTASSIUM 4.6 MMOL/L (3.6-5.0); SODIUM 132 MMOL/L (135-145)
[2019-07-31] MEDS: KCL 20 MEQ TAB (K-DUR) PO SCH ×2 (06:33)
--- NOTE | 2019-07-31 07:10 | Pulmonary Progress Note ---
Subjective Time Seen by a Provider: 07:10 Sepsis Event Evaluation Height, Weight, BMI Height: '" Weight: lbs. oz. kg; 21.00 BMI Method:Estimated Focused Exam Time of Focused Exam: 18:46 Exam Exam Vital Signs Date Time Temp Pulse Resp B/P (MAP) Pulse Ox O2 Delivery O2 Flow Rate FiO2 07/31/19 04:00 37.3 78 20 113/52 (72) 98 Nasal Cannula 3.00 07/31/19 02:12 97 Nasal Cannula 3.00 07/31/19 00:35 72 07/31/19 00:00 36.4 70 18 100/51 (67) 99 Nasal Cannula 3.00 07/30/19 21:00 97 Nasal Cannula 1.00 07/30/19 20:07 36.4 70 20 100/68 (79) 98 Nasal Cannula 3.00 07/30/19 19:36 95 Nasal Cannula 3.00 07/30/19 18:45 80 07/30/19 16:15 104/72 (83) 07/30/19 15:50 36.7 84 14 89/56 (67) 95 Nasal Cannula 3.00 07/30/19 14:50 93 Nasal Cannula 2.00 07/30/19 13:32 37.3 07/30/19 13:32 37.3 07/30/19 12:22 121 07/30/19 12:00 39.4 121 12 107/62 (77) 93 Nasal Cannula 2.00 07/30/19 11:00 38.3 07/30/19 10:50 38.5 07/30/19 08:00 36.6 102 22 168/73 (104) 98 Nasal Cannula 2.00 07/30/19 08:00 Nasal Cannula 2.00 I & O 07/31/19 07:00 Intake Total 860 ml Output Total 1200 ml Balance -340 ml Height & Weight Height: '" Weight: lbs. oz. kg; 21.00 BMI Method:Estimated General Appearance: No Apparent Distress, Chronically ill HEENT: PERRL/EOMI, Pharynx Normal Neck: Normal Inspection, Supple Respiratory: Lungs Clear, Normal Breath Sounds, No Respiratory Distress Cardiovascular: Regular Rate, Rhythm, No Edema, No Murmur Capillary Refill: Less Than 3 Seconds Extremity: Normal Inspection, Non Tender, Pedal Edema Neurologic/Psychiatric: Other (lethargic, uncooperative) Skin: Warm/Dry, Pallor Results Lab Laboratory Tests 07/30/19 04:50 07/31/19 04:42 Assessment/Plan Assessment/Plan UTI with sepsis and PNA - Merrem -Hernandez cultures reviewed -MRSA swab neg Pulmonary edema with bilateral large R> L pleural effusions - improving with lasix -CT chest reviewed -Pt is already on lasix 40mg IV daily -give total of 80 mg of lasix today -No current IVF Lung nodule -Will need out pt serial chest cts Fever of unknown origin Possible lymphoma s/p axillary node bx -Cytology pending Thombocytopenia Mild anemia -s/p 1 unit PRBC -Check occult stool - was positive last hospitalization -Pt is colonoscopy on Friday in [place] Connelly DO Jul 31, 2019 07:10 POS
--- NOTE | 2019-07-31 07:44 | Diagnostic Imaging Report ---
Indication: Pneumonia. Comparison: 07/30/2019 Findings: A single view of the chest demonstrates cardiac enlargement with central vascular congestion. Overall there is improved aeration of both lungs. Infiltrates persist but have decreased. Bilateral pleural effusions are stable. There is no pneumothorax. Impression: Persistent but decreased bilateral pulmonary infiltrates. Dictated by: Dictated on workstation # [id number]
[2019-07-31] MEDS: ACETAMINOPHEN 325 MG TABLET PO PRN (08:04)
[2019-07-31] MEDS: CARVEDILOL 6.25 MG (COREG) TAB PO SCH ×2 (08:35→22:12)
[2019-07-31] MEDS: FLECAINIDE 100 MG (TAMBOCOR) TAB PO SCH ×2 (08:35→22:17)
[2019-07-31] MEDS: PANTOPRAZOLE 40 MG (PROTONIX) VIAL IV SCH (08:37)
[2019-07-31] MEDS: FUROSEMIDE 40 MG/4 ML INJ (LASIX) IVP SCH (08:37)
[2019-07-31] MEDS ORDERED: FUROSEMIDE 40 MG/4 ML INJ (LASIX) IVP ONE (09:00)
[2019-07-31] MEDS ORDERED: KCL 20 MEQ TAB (K-DUR) PO ONE (09:00)
--- NOTE | 2019-07-31 10:36 | Progress Note ---
Subjective Date Seen by a Provider: Jul 31, 2019 Time Seen by a Provider: 10:15 Subjective/Events-last exam Patient seen with Dr. White. Patient reports appears fatigued. Denies any abdominal pain, N/V. Does reports fevers and chills. No abdominal pain. Tolerating diet. Family does report that they believe the patient has lost weight over the last couple months but is not for sure how much. Focused Exam Time of Focused Exam: 18:46 Objective Exam Vital Signs Date Time Temp Pulse Resp B/P (MAP) Pulse Ox O2 Delivery O2 Flow Rate FiO2 07/31/19 09:21 96 Nasal Cannula 3.00 07/31/19 08:34 37.3 07/31/19 08:04 38.9 07/31/19 07:55 38.9 93 18 113/50 (71) 92 Nasal Cannula 3.00 07/31/19 07:30 96 Nasal Cannula 3.00 07/31/19 07:00 92 07/31/19 04:00 37.3 78 20 113/52 (72) 98 Nasal Cannula 3.00 07/31/19 02:12 97 Nasal Cannula 3.00 07/31/19 00:35 72 07/31/19 00:00 36.4 70 18 100/51 (67) 99 Nasal Cannula 3.00 07/30/19 21:00 97 Nasal Cannula 1.00 07/30/19 20:07 36.4 70 20 100/68 (79) 98 Nasal Cannula 3.00 07/30/19 19:36 95 Nasal Cannula 3.00 07/30/19 18:45 80 07/30/19 16:15 104/72 (83) 07/30/19 15:50 36.7 84 14 89/56 (67) 95 Nasal Cannula 3.00 07/30/19 14:50 93 Nasal Cannula 2.00 07/30/19 13:32 37.3 07/30/19 13:32 37.3 07/30/19 12:22 121 07/30/19 12:00 39.4 121 12 107/62 (77) 93 Nasal Cannula 2.00 07/30/19 11:00 38.3 07/30/19 10:50 38.5 I & O 07/31/19 07:00 Intake Total 860 ml Output Total 1200 ml Balance -340 ml Capillary Refill : Less Than 3 SecondsLess Than 3 Seconds General Appearance: WD/WN, Chronically ill Neck: Full Range of Motion, Normal Inspection, Supple Respiratory: Normal Breath Sounds, No Accessory Muscle Use, No Respiratory Distress Cardiovascular: No JVD, Irregularly Irregular Gastrointestinal: normal bowel sounds, non tender, soft Extremity: Normal Capillary Refill, Normal Inspection, Normal Range of Motion Neurologic/Psychiatric: Alert, Oriented x3 Skin: Normal Color, Warm/Dry Lymphatic: Axilla Node Tender (L) (approx 1-2 cm in size) Results Lab Laboratory Tests 07/31/19 04:22: B-Type Natriuretic Peptide 190.6H 07/31/19 04:42: White Blood Count 5.9, Red Blood Count 3.07L, Hemoglobin 8.6L, Hematocrit 28L, Mean Corpuscular Volume 92, Mean Corpuscular Hemoglobin 28, Mean Corpuscular Hemoglobin Concent 31L, Red Cell Distribution Width 20.2H, Platelet Count 74L, Mean Platelet Volume 11.6H, Neutrophils (%) (Auto) 65, Lymphocytes (%) (Auto) 12, Monocytes (%) (Auto) 22H, Eosinophils (%) (Auto) 0, Basophils (%) (Auto) 1, Neutrophils # (Auto) 3.8, Lymphocytes # (Auto) 0.7L, Monocytes # (Auto) 1.3H, Eosinophils # (Auto) 0.0, Basophils # (Auto) 0.0, Sodium Level 132L, Potassium Level 4.6, Chloride Level 97L, Carbon Dioxide Level 26, Anion Gap 9, Blood Urea Nitrogen 15, Creatinine 0.66, Estimat Glomerular Filtration Rate > 60, BUN/Creatinine Ratio 23, Glucose Level 78, Calcium Level 7.6L, Phosphorus Level 3.4, Magnesium Level 1.7 07/31/19 09:41: Glucometer 161H Microbiology 07/29/19 Blood Culture - Preliminary, Resulted No growth 07/27/19 MRSA Screen - Final, Complete MRSA not isolated 07/27/19 Urine Culture - Final, Complete NO GROWTH Assessment/Plan Assessment/Plan Assess & Plan/Chief Complaint A 74-year-old female with nonspecific symptoms, fevers, failure to thrive, bilateral axillary adenopathy. VSS WBC 5.9 Will proceed with excisional biopsy of left axillary lymph node to evaluate for possible lymphoma. Clinical Quality Measures DVT/VTE Risk/Contraindication: Risk Factor Score Per Nursin RFS Level Per Nursing on Admit: 4+=Very High Contraindications-Pharm: Other *list below* Other: Pt receiving blood transfusion, possible bleeding so no order for medication indicated. Pt does have SCD's ordered and on. PAIGE SOTO FORK LIFT TRUCK OPERATOR Jul 31, 2019 10:36 POS
--- NOTE | 2019-07-31 11:18 | Progress Note - Hospitalist ---
Subjective HPI/CC On Admission Date Seen by Provider: Jul 31, 2019 Time Seen by Provider: 09:30 fever, tachycardia, and hypotension Subjective/Events-last exam She has a fever this morning. She is not feeling well. She is depressed and anxious about her situation. She denies chest pain and dyspnea. She denies n ausea, vomiting, and abdominal pain. Focused Exam Time of Focused Exam: 18:46 Objective Exam Vital Signs Vital Signs Date Time Temp Pulse Resp B/P (MAP) Pulse Ox O2 Delivery O2 Flow Rate FiO2 07/31/19 09:21 96 Nasal Cannula 3.00 07/31/19 08:34 37.3 07/31/19 07:55 93 18 113/50 (71) 07/29/19 10:46 28 Capillary Refill : Less Than 3 SecondsLess Than 3 Seconds General Appearance: Chronically ill, Mild Distress HEENT: PERRL/EOMI, Pharynx Normal Neck: Normal Inspection, Supple Respiratory: Lungs Clear, Normal Breath Sounds, No Respiratory Distress Cardiovascular: Regular Rate, Rhythm, No Edema, No Murmur Gastrointestinal: Normal Bowel Sounds, Non Tender, Soft Extremity: Normal Inspection, Non Tender, Pedal Edema Neurologic/Psychiatric: Alert, Oriented x3, No Motor/Sensory Deficits, Depress ed Affect Skin: Warm/Dry, Pallor Lymphatic: Other (left axillary lymph node) Results/Procedures Lab Laboratory Tests 07/31/19 04:42 Patient resulted labs reviewed. Imaging: Reviewed Imaging Report Assessment/Plan Assessment and Plan Assess & Plan/Chief Complaint Fever of unknown origin -Recurrent fever after multiple days of broad spectrum antibiotics -Ongoing issue -Previously worked up for fever at [facility] -Workup revealed mildly elevated inflammatory markers, nonspecific -LDH elevated -Obtain CT Chest/Abdomen/Pelvis Severe sepsis HCAP -Continue Merrem -Cultures with no growth to date -Pulm following Hypokalemia Hypomagnesemia Hypophosphatemia -Monitor and replace as needed Atrial fibrillation with RVR -Continue Flecainide and Coreg -Cardiology following -No anticoagulation due to recurrent GI bleeding Recurrent GI bleeding Chronic blood loss anemia -Hgb 8.3, stable -Appointment scheduled with Dr. Pereira on Friday for further evaluation Thrombocytopenia -Likely decreased due to severe sepsis -Continue to monitor DVT Prophylaxis: held due to recurrent GI bleeding Diagnosis/Problems Diagnosis/Problems (1) Fever of unknown origin Status: Chronic (2) Severe sepsis Status: Resolved Resolution Date/Time: 07/29/19 @ 09:48 (3) HCAP (healthcare-associated pneumonia) Status: Acute (4) Thrombocytopenia Status: Acute (5) Chronic blood loss anemia Status: Chronic (6) Recurrent gastrointestinal hemorrhage Status: Chronic (7) Hypokalemia Status: Acute (8) Hypomagnesemia Status: Acute (9) Hypophosphatemia Status: Acute Clinical Quality Measures DVT/VTE Risk/Contraindication: Risk Factor Score Per Nursin RFS Level Per Nursing on Admit: 4+=Very High Contraindications-Pharm: Other *list below* Other: Pt receiving blood transfusion, possible bleeding so no order for medication indicated. Pt does have SCD's ordered and on. DENISA ESQUIVEL MD Jul 31, 2019 11:18 POS
--- NOTE | 2019-07-31 11:24 | Progress Note - Hospitalist ---
Subjective HPI/CC On Admission Date Seen by Provider: Jul 31, 2019 Time Seen by Provider: 09:30 fever, tachycardia, and hypotension Subjective/Events-last exam She has a fever this morning. She is not feeling well. She is depressed and anxious about her situation. She denies chest pain and dyspnea. She denies n ausea, vomiting, and abdominal pain. Focused Exam Time of Focused Exam: 18:46 Objective Exam Vital Signs Vital Signs Date Time Temp Pulse Resp B/P (MAP) Pulse Ox O2 Delivery O2 Flow Rate FiO2 07/31/19 09:21 96 Nasal Cannula 3.00 07/31/19 08:34 37.3 07/31/19 07:55 93 18 113/50 (71) 07/29/19 10:46 28 Capillary Refill : Less Than 3 SecondsLess Than 3 Seconds General Appearance: Chronically ill, Mild Distress HEENT: PERRL/EOMI, Pharynx Normal Neck: Normal Inspection, Supple Respiratory: Lungs Clear, Normal Breath Sounds, No Respiratory Distress Cardiovascular: Regular Rate, Rhythm, No Murmur Gastrointestinal: Normal Bowel Sounds, Soft, Tenderness Extremity: Normal Inspection, Non Tender, Pedal Edema Neurologic/Psychiatric: Alert, Oriented x3, No Motor/Sensory Deficits, Depressed Affect Skin: Warm/Dry, Pallor Lymphatic: Other (left axillary lymph node) Results/Procedures Lab Laboratory Tests 07/31/19 04:42 Patient resulted labs reviewed. Imaging: Reviewed Imaging Report Assessment/Plan Assessment and Plan Assess & Plan/Chief Complaint Fever of unknown origin Axillary lymphadenopathy Splenomegaly -Recurrent fever after multiple days of broad spectrum antibiotics -Ongoing issue -Previously worked up for fever at -Further workup here revealed mildly elevated inflammatory markers and elevated LDH (nonspecific) -CT Chest/Abdomen/Pelvis revealed large left axillary lymph node, splenomegaly -Oncology consulted, recommends surgery perform excisional biopsy -General surgery consulted, planning for excisional biopsy likely Friday Severe sepsis HCAP Bilateral pleural effusions -Continue Merrem -Cultures with no growth to date -Pulm following -Holding off on thoracentesis for now Hypokalemia Hypomagnesemia Hypophosphatemia -Monitor and replace as needed Atrial fibrillation with RVR -Continue Flecainide and Coreg -Cardiology following -No anticoagulation due to recurrent GI bleeding Recurrent GI bleeding Chronic blood loss anemia -Hgb 8.6, stable -Appointment scheduled with Dr. Pereira on [place] for further evaluation, will need to be rescheduled Thrombocytopenia -Stable -Continue to monitor DVT Prophylaxis: held due to recurrent GI bleeding Diagnosis/Problems Diagnosis/Problems (1) Fever of unknown origin Status: Chronic (2) Severe sepsis Status: Resolved Resolution Date/Time: 07/29/19 @ 09:48 (3) HCAP (healthcare-associated pneumonia) Status: Acute (4) Thrombocytopenia Status: Acute (5) Chronic blood loss anemia Status: Chronic (6) Recurrent gastrointestinal hemorrhage Status: Chronic (7) Hypokalemia Status: Acute (8) Hypomagnesemia Status: Acute (9) Hypophosphatemia Status: Acute (10) Axillary lymphadenopathy Status: Acute (11) Splenomegaly Status: Acute Clinical Quality Measures DVT/VTE Risk/Contraindication: Risk Factor Score Per Nursin RFS Level Per Nursing on Admit: 4+=Very High Contraindications-Pharm: Other *list below* Other: Pt receiving blood transfusion, possible bleeding so no order for medication indicated. Pt does have SCD's ordered and on. DENISA ESQUIVEL MD Jul 31, 2019 11:24 POS
--- NOTE | 2019-07-31 11:52 | NUR ---
SPOKE WITH DR. GAMA REGARDING SBP. ORDERS OBTAINED TO HOLD COREQ IF SBP LESS THAN 110 AND HOLD LASIX IF SBP LESS THAN 110. CHECK LACTIC ACID NOW. VITALS Q4HR.
[2019-07-31] MEDS: ONDANSETRON 4 MG/2 ML (SDV) Z0FRAN IV PRN (12:03)
[2019-07-31] MEDS: inSUlin ASPART (NovoLOG) 1 UNIT/0.01 ML (CHARGE PER UNIT) SC SCH ×3 (13:05→22:17)
--- NOTE | 2019-07-31 13:38 | Progress Note - Cardiology ---
Cardiology SOAP Progress Note Subjective: States feels confused from time to time Being in hospitals repeatedly in the recent past has been affecting her memory, she says Notes gen malaise and weakness Appetite somewhat improved No cp or palp or syncope No shortness of breath at rest Objective: I&O/Vital Signs 07/31/19 07/31/19 07/31/19 07/31/19 02:12 04:00 07:00 07:30 Temp 37.3 Pulse 78 92 Resp 20 B/P (MAP) 113/52 (72) Pulse Ox 97 98 96 O2 Delivery Nasal Cannula Nasal Cannula Nasal Cannula O2 Flow Rate 3.00 3.00 3.00 07/31/19 07/31/19 07/31/19 07/31/19 07:55 08:04 08:34 09:21 Temp 38.9 38.9 37.3 Pulse 93 Resp 18 B/P (MAP) 113/50 (71) Pulse Ox 92 96 O2 Delivery Nasal Cannula Nasal Cannula O2 Flow Rate 3.00 3.00 07/31/19 07/31/19 11:35 12:08 Temp 37.0 Pulse 77 Resp 20 B/P (MAP) 89/47 (61) 96/50 (65) Pulse Ox 95 O2 Delivery Nasal Cannula O2 Flow Rate 2.00 07/31/19 00:00 Intake Total 760 ml Output Total 925 ml Balance -165 ml Constitutional: AAO x 3, other (thin, frail) Respiratory: No accessory muscle use, No respiratory distress; chest expansion is symmetric, chest is bilaterally symmetric, other (good air entry) Cardiovascular: irregularly irregular; No JVD; S1 and S2 Gastrointestional: No tender; soft, audible bowel sounds (hypoactive) Extremities: other (mild to mod bilat LE swelling) Neurologic/Psychiatric: grossly intact (moves extremities) Skin: normal color, warm/dry Results/Procedures: Labs Laboratory Tests 07/31/19 04:22: B-Type Natriuretic Peptide 190.6H 07/31/19 04:42: White Blood Count 5.9, Red Blood Count 3.07L, Hemoglobin 8.6L, Hematocrit 28L, Mean Corpuscular Volume 92, Mean Corpuscular Hemoglobin 28, Mean Corpuscular Hemoglobin Concent 31L, Red Cell Distribution Width 20.2H, Platelet Count 74L, Mean Platelet Volume 11.6H, Neutrophils (%) (Auto) 65, Lymphocytes (%) (Auto) 12, Monocytes (%) (Auto) 22H, Eosinophils (%) (Auto) 0, Basophils (%) (Auto) 1, Neutrophils # (Auto) 3.8, Lymphocytes # (Auto) 0.7L, Monocytes # (Auto) 1.3H, Eosinophils # (Auto) 0.0, Basophils # (Auto) 0.0, Sodium Level 132L, Potassium Level 4.6, Chloride Level 97L, Carbon Dioxide Level 26, Anion Gap 9, Blood Urea Nitrogen 15, Creatinine 0.66, Estimat Glomerular Filtration Rate > 60, BUN/Creatinine Ratio 23, Glucose Level 78, Calcium Level 7.6L, Phosphorus Level 3.4, Magnesium Level 1.7 07/31/19 09:41: Glucometer 161H 07/31/19 11:33: Glucometer 123H 07/31/19 12:16: Lactic Acid Level 2.70*H Microbiology 07/29/19 Blood Culture - Preliminary, Resulted No growth 07/27/19 MRSA Screen - Final, Complete MRSA not isolated 07/27/19 Urine Culture - Final, Complete NO GROWTH Laboratory Tests 07/30/19 04:50 07/31/19 04:42 A/P: Assessment: Severe sepsis - Medical Services managing FUO Lymphadenopathy - Med Svce and Heme/Onc managing Chronic diastolic CHF Severe anemia of undetermined etiology (she reports chronic anemia for which she has had multiple eval in the past with unknown cause). Stool positive for occult blood during previous admission - Dr. Payne of Hematology/Oncology previously consulted H/o PAF that has chronically been treated with flecainide (pt states years, but doesn't who started it when). OAC has been withheld d/t because of severe anemia of undetermined etiology (per recs of hospitalist during previous admission earlier this month) Echo of 07/11/19: LVEF 60-65%, mild MR, mod AI, mild to mod TR, grade 2 mccullough dysfunction, RVSP 47 mmHg MPI of Jul 13, 2019 showed no evidence of ischemia/infarction; LVEF 67% Plan: * Management has been and remains very complex due to multiple comorbidities that are outline above * Sources of anemia and fever remain undiagnosed. This is being worked up and treated by the Hospitalist and Heme/Onc services * Continue Flecainide (which she has tolerated well for years, according to her) to prevent A Fib because she is not a suitable candidate for OAC * Monitor labs ANA FINLEY MD FACP FAC CCDS Jul 31, 2019 13:38 POS
[2019-07-31] MEDS: ACETAMINOPHEN 650 MG SUPP (TYLENOL) PR PRN (16:32)
[2019-07-31] MEDS ORDERED: LACTATED RINGERS 1,000 ML IV STA (18:24)
[2019-08-01] VITALS (15 sets, daily range): BP systolic 101–170; BP diastolic 41–87
[2019-08-01] MEDS ORDERED: MEROPENEM 500 MG VIAL (MERREM) IV ONE (00:44)
[2019-08-01] MEDS ORDERED: WATER (STERILE) FOR INJECTION 10 ML ONE ×2 (00:45→09:38)
[2019-08-01] MEDS: MEROPENEM 500 MG/SWFI 10 ML IV PUSH IV SCH ×4 (00:58→09:54)
[2019-08-01] MEDS: RT-ALBUTEROL/IPRATROPIUM 3 ML (DUONEB) VIAL INH SCH ×4 (01:34→23:22)
[2019-08-01] MEDS: inSUlin ASPART (NovoLOG) 1 UNIT/0.01 ML (CHARGE PER UNIT) SC SCH ×4 (05:39→21:22)
--- NOTE | 2019-08-01 06:38 | Pulmonary Progress Note ---
Subjective Time Seen by a Provider: 06:39 Sepsis Event Evaluation Height, Weight, BMI Height: '" Weight: lbs. oz. kg; 21.00 BMI Method:Estimated Focused Exam Lactate Level 07/31/19 12:16: Lactic Acid Level 2.70*H 07/31/19 14:21: Lactic Acid Level 2.20*H Time of Focused Exam: 18:46 Exam Exam Vital Signs Date Time Temp Pulse Resp B/P (MAP) Pulse Ox O2 Delivery O2 Flow Rate FiO2 08/01/19 06:00 91 26 123/46 (71) 94 Nasal Cannula 3.00 08/01/19 05:00 92 31 136/52 (80) 94 Nasal Cannula 3.00 08/01/19 04:00 92 19 141/54 (83) 94 Nasal Cannula 3.00 08/01/19 03:33 96 Nasal Cannula 3.00 08/01/19 03:33 38.0 08/01/19 03:00 94 26 139/65 (89) 90 Nasal Cannula 3.00 08/01/19 02:02 97 18 130/52 (78) 92 Nasal Cannula 3.00 08/01/19 02:00 94 Nasal Cannula 2.00 08/01/19 01:01 Nasal Cannula 3.00 08/01/19 01:01 89 08/01/19 01:00 88 21 131/50 (77) 89 Nasal Cannula 2.00 08/01/19 00:19 37.5 08/01/19 00:03 86 10 121/53 (75) Nasal Cannula 2.00 08/01/19 00:00 96 Nasal Cannula 2.00 07/31/19 23:00 76 35 112/50 (70) Nasal Cannula 2.00 07/31/19 22:00 81 14 114/45 (68) 100 Nasal Cannula 2.00 07/31/19 21:00 36.6 07/31/19 21:00 84 31 100/54 (69) 95 Nasal Cannula 2.00 07/31/19 20:00 78 26 96/44 (61) 95 Nasal Cannula 2.00 07/31/19 20:00 96 Nasal Cannula 2.00 07/31/19 19:30 97/41 (59) Nasal Cannula 2.00 07/31/19 18:45 81 07/31/19 16:32 36.8 07/31/19 16:29 36.8 75 20 97/55 (69) 95 Nasal Cannula 2.00 07/31/19 14:52 95 Nasal Cannula 3.00 07/31/19 13:00 72 07/31/19 12:08 96/50 (65) 07/31/19 11:35 37.0 77 20 89/47 (61) 95 Nasal Cannula 2.00 07/31/19 09:21 96 Nasal Cannula 3.00 07/31/19 08:34 37.3 07/31/19 08:04 38.9 07/31/19 07:55 38.9 93 18 113/50 (71) 92 Nasal Cannula 3.00 07/31/19 07:30 96 Nasal Cannula 3.00 07/31/19 07:00 92 I & O 08/01/19 07:00 Intake Total 1620 ml Output Total 595 ml Balance 1025 ml Height & Weight Height: '" Weight: lbs. oz. kg; 21.00 BMI Method:Estimated General Appearance: Chronically ill, Mild Distress HEENT: PERRL/EOMI, Pharynx Normal Neck: Normal Inspection, Supple Respiratory: Lungs Clear, Normal Breath Sounds, No Respiratory Distress Cardiovascular: Regular Rate, Rhythm, No Murmur Capillary Refill: Less Than 3 Seconds Gastrointestinal: normal bowel sounds, non tender, soft Extremity: Normal Inspection, Non Tender, Pedal Edema Neurologic/Psychiatric: Alert, Oriented x3, No Motor/Sensory Deficits, Depressed Affect Skin: Warm/Dry, Pallor Lymphatic: Other (left axillary lymph node) Results Lab Laboratory Tests 07/31/19 04:42 Assessment/Plan Assessment/Plan UTI with sepsis and PNA - Merrem -Hernandez cultures reviewed -MRSA swab neg Pulmonary edema with bilateral large R> L pleural effusions - improving with lasix -CT chest reviewed -Will do thoracentesis after consent is obtained -Check Echo Metabolic lactic acid -S/p 1liter bolus -Hold lasix Lung nodule -Will need out pt serial chest cts Fever of unknown origin Possible lymphoma s/p axillary node bx -Cytology pending Thombocytopenia Mild anemia -s/p 1 unit PRBC -Check occult stool - was positive last hospitalization -Pt is colonoscopy on Friday in [place] Connelly DO Aug 01, 2019 06:38 POS
--- NOTE | 2019-08-01 07:31 | Diagnostic Imaging Report ---
Indication: Dyspnea. Comparison: 07/31/2019. Discussion: Single portable upright view of the chest was obtained. Stable normal heart size. Small bilateral pleural effusions appear slightly increased in size. Mild interstitial infiltrates are also increased, edema versus pneumonia. No pneumothorax or osseous abnormality. Impression: 1. Increasing effusions and infiltrates. Dictated by: Dictated on workstation # [id number]
[2019-08-01 07:45] LABS: BASOPHILS % (AUTO) 1 % (0-10); EOSINOPHILS % (AUTO) 0 % (0-10); HEMATOCRIT 25 % (35-52); HEMOGLOBIN 7.7 G/DL (11.5-16.0); LYMPHOCYTES # (AUTO) 0.6 X 10^3 (1.0-4.0); LYMPHOCYTES % (AUTO) 11 % (12-44); MEAN CORPUSCULAR HEMOGLOBIN 29 PG (25-34); MEAN CORPUSCULAR HGB CONC 31 G/DL (32-36); MEAN CORPUSCULAR VOLUME 91 FL (80-99); MEAN PLATELET VOLUME 11.3 FL (7.4-10.4); MONOCYTES # (AUTO) 1.4 X 10^3 (0.0-1.0); MONOCYTES % (AUTO) 26 % (0-12); NEUTROPHILS # (AUTO) 3.4 X 10^3 (1.8-7.8); NEUTROPHILS % (AUTO) 63 % (42-75); PLATELET COUNT 79 10^3/uL (130-400); WHITE BLOOD COUNT 5.5 10^3/uL (4.3-11.0)
[2019-08-01 08:06] LABS: BUN/CREATININE RATIO 19; CALCIUM 7.4 MG/DL (8.5-10.1); CARBON DIOXIDE 26 MMOL/L (21-32); CHLORIDE 95 MMOL/L (98-107); CREATININE SERUM 0.62 MG/DL (0.60-1.30); GFR ESTIMATED > 60; GLUCOSE 97 MG/DL (70-105); MAGNESIUM 1.5 MG/DL (1.6-2.4); POTASSIUM 4.4 MMOL/L (3.6-5.0); SODIUM 132 MMOL/L (135-145)
[2019-08-01] MEDS: FLECAINIDE 100 MG (TAMBOCOR) TAB PO SCH ×2 (09:53→22:37)
[2019-08-01] MEDS: KCL 20 MEQ TAB (K-DUR) PO SCH ×2 (09:53→09:57)
[2019-08-01] MEDS: PANTOPRAZOLE 40 MG (PROTONIX) VIAL IV SCH (09:53)
[2019-08-01] MEDS: CARVEDILOL 6.25 MG (COREG) TAB PO SCH ×2 (09:56→22:37)
--- NOTE | 2019-08-01 10:26 | Progress Note - Hospitalist ---
Subjective HPI/CC On Admission Date Seen by Provider: Aug 01, 2019 Time Seen by Provider: 10:21 fever, tachycardia, and hypotension Subjective/Events-last exam Pt reports feeling "bad all over." Does not have more specific complaints. at bedside. No questions. Plan for thoracentesis later today by Dr Amaris camilo. Febrile overnight. Focused Exam Lactate Level 07/31/19 12:16: Lactic Acid Level 2.70*H 07/31/19 14:21: Lactic Acid Level 2.20*H 08/01/19 07:27: Lactic Acid Level 1.73 Time of Focused Exam: 18:46 Lactic Acid Level Laboratory Tests Test 08/01/19 07:27 Lactic Acid Level 1.73 MMOL/L (0.50-2.00) Objective Exam Vital Signs Vital Signs Date Time Temp Pulse Resp B/P (MAP) Pulse Ox O2 Delivery O2 Flow Rate FiO2 08/01/19 08:00 91 10 116/58 (77) 100 Nasal Cannula 3.00 08/01/19 03:33 38.0 07/29/19 10:46 28 Capillary Refill : Less Than 3 SecondsLess Than 3 Seconds General Appearance: No Apparent Distress, Chronically ill, Thin Respiratory: Lungs Clear, No Respiratory Distress Cardiovascular: Regular Rate, Rhythm, No Murmur Gastrointestinal: Normal Bowel Sounds, Soft Neurologic/Psychiatric: Alert, Oriented x3 Results/Procedures Lab Laboratory Tests 08/01/19 07:27 Patient resulted labs reviewed. Imaging: Reviewed Imaging Report Assessment/Plan Assessment and Plan Assess & Plan/Chief Complaint Fever of unknown origin Axillary lymphadenopathy Splenomegaly Lactic Acidosis, resolved -Recurrent fever, on merrem -Previously worked up for fever at , [facility], and [facility] -CT Chest/Abdomen/Pelvis revealed large left axillary lymph node, moderate splenomegaly -Oncology consulted, recommends surgery perform excisional biopsy -General surgery consulted for biopsy - RVP ordered Severe sepsis HCAP Bilateral pleural effusions -On Merrem -Cultures with no growth to date -Pulm following -Plan for thoracentesis today Hypokalemia Hypomagnesemia Hypophosphatemia -Monitor and replace as needed Atrial fibrillation -Continue Flecainide and Coreg -Cardiology following -No anticoagulation due to recurrent GI bleeding and anemia Recurrent GI bleeding Chronic blood loss anemia -Hgb 8.6, stable -Appointment scheduled with Dr. Pereira on [place] for further evaluation, will need to be rescheduled Thrombocytopenia -Stable -Continue to monitor DVT Prophylaxis: held due to recurrent GI bleeding Clinical Quality Measures DVT/VTE Risk/Contraindication: Risk Factor Score Per Nursin RFS Level Per Nursing on Admit: 4+=Very High Contraindications-Pharm: Other *list below* Other: Pt receiving blood transfusion, possible bleeding so no order for medication indicated. Pt does have SCD's ordered and on. ODELL JOHNSON MD Aug 01, 2019 10:26 POS
--- NOTE | 2019-08-01 10:29 | Progress Note ---
Subjective Date Seen by a Provider: Aug 01, 2019 Time Seen by a Provider: 10:00 Subjective/Events-last exam doing ok. transferred to ICU due to nocturnal desaturation. also has bilateral small pleural eff. continues to have fevers/sweats. Focused Exam Lactate Level 07/31/19 12:16: Lactic Acid Level 2.70*H 07/31/19 14:21: Lactic Acid Level 2.20*H 08/01/19 07:27: Lactic Acid Level 1.73 Time of Focused Exam: 18:46 Lactic Acid Level Laboratory Tests Test 08/01/19 07:27 Lactic Acid Level 1.73 MMOL/L (0.50-2.00) Objective Exam Vital Signs Date Time Temp Pulse Resp B/P (MAP) Pulse Ox O2 Delivery O2 Flow Rate FiO2 08/01/19 08:00 91 10 116/58 (77) 100 Nasal Cannula 3.00 08/01/19 07:00 88 08/01/19 06:00 91 26 123/46 (71) 94 Nasal Cannula 3.00 08/01/19 05:00 92 31 136/52 (80) 94 Nasal Cannula 3.00 08/01/19 04:00 92 19 141/54 (83) 94 Nasal Cannula 3.00 08/01/19 03:33 96 Nasal Cannula 3.00 08/01/19 03:33 38.0 08/01/19 03:00 94 26 139/65 (89) 90 Nasal Cannula 3.00 08/01/19 02:02 97 18 130/52 (78) 92 Nasal Cannula 3.00 08/01/19 02:00 94 Nasal Cannula 2.00 08/01/19 01:01 Nasal Cannula 3.00 08/01/19 01:01 89 08/01/19 01:00 88 21 131/50 (77) 89 Nasal Cannula 2.00 08/01/19 00:19 37.5 08/01/19 00:03 86 10 121/53 (75) Nasal Cannula 2.00 08/01/19 00:00 96 Nasal Cannula 2.00 07/31/19 23:00 76 35 112/50 (70) Nasal Cannula 2.00 07/31/19 22:00 81 14 114/45 (68) 100 Nasal Cannula 2.00 07/31/19 21:00 36.6 07/31/19 21:00 84 31 100/54 (69) 95 Nasal Cannula 2.00 07/31/19 20:00 78 26 96/44 (61) 95 Nasal Cannula 2.00 07/31/19 20:00 96 Nasal Cannula 2.00 07/31/19 19:30 97/41 (59) Nasal Cannula 2.00 07/31/19 18:45 81 07/31/19 16:32 36.8 07/31/19 16:29 36.8 75 20 97/55 (69) 95 Nasal Cannula 2.00 07/31/19 14:52 95 Nasal Cannula 3.00 07/31/19 13:00 72 07/31/19 12:08 96/50 (65) 07/31/19 11:35 37.0 77 20 89/47 (61) 95 Nasal Cannula 2.00 I & O 08/01/19 07:00 Intake Total 1620 ml Output Total 595 ml Balance 1025 ml Capillary Refill : Less Than 3 SecondsLess Than 3 Seconds General Appearance: No Apparent Distress HEENT: PERRL/EOMI Neck: Full Range of Motion Respiratory: Decreased Breath Sounds Cardiovascular: Regular Rate, Rhythm Gastrointestinal: normal bowel sounds, non tender, soft Extremity: Normal Capillary Refill Neurologic/Psychiatric: Alert Skin: Normal Color Lymphatic: Axilla Node Tender (L) Results Lab Laboratory Tests 07/31/19 11:33: Glucometer 123H 07/31/19 12:16: Lactic Acid Level 2.70*H 07/31/19 14:21: Lactic Acid Level 2.20*H 07/31/19 15:49: Glucometer 119H 07/31/19 22:16: Glucometer 107 08/01/19 05:35: Glucometer 78 08/01/19 07:27: White Blood Count 5.5, Red Blood Count 2.69L, Hemoglobin 7.7L, Hematocrit 25L, Mean Corpuscular Volume 91, Mean Corpuscular Hemoglobin 29, Mean Corpuscular Hemoglobin Concent 31L, Red Cell Distribution Width 20.0H, Platelet Count 79L, Mean Platelet Volume 11.3H, Neutrophils (%) (Auto) 63, Lymphocytes (%) (Auto) 11L, Monocytes (%) (Auto) 26H, Eosinophils (%) (Auto) 0, Basophils (%) (Auto) 1, Neutrophils # (Auto) 3.4, Lymphocytes # (Auto) 0.6L, Monocytes # (Auto) 1.4H, Eosinophils # (Auto) 0.0, Basophils # (Auto) 0.0, Sodium Level 132L, Potassium Level 4.4, Chloride Level 95L, Carbon Dioxide Level 26, Anion Gap 11, Blood Urea Nitrogen 12, Creatinine 0.62, Estimat Glomerular Filtration Rate > 60, BUN/Creatinine Ratio 19, Glucose Level 97, Lactic Acid Level 1.73, Calcium Level 7.4L, Phosphorus Level 3.0, Magnesium Level 1.5L Microbiology 07/29/19 Blood Culture - Preliminary, Resulted No growth 07/27/19 MRSA Screen - Final, Complete MRSA not isolated 07/27/19 Urine Culture - Final, Complete NO GROWTH Assessment/Plan Assessment/Plan Assess & Plan/Chief Complaint fever, night sweats, weight loss, left axillary adenopathy. scheduled for excisional bx LN left axilla under MAC anesthesia with local tomorrow around 3pm Clinical Quality Measures DVT/VTE Risk/Contraindication: Risk Factor Score Per Nursin RFS Level Per Nursing on Admit: 4+=Very High Contraindications-Pharm: Other *list below* Other: Pt receiving blood transfusion, possible bleeding so no order for medication indicated. Pt does have SCD's ordered and on. ELIA RILEY MD Aug 01, 2019 10:29 POS
[2019-08-01] MEDS ORDERED: NS IV 500 ML 500 ML IV SCH ×2 (10:47→11:00)
--- NOTE | 2019-08-01 11:58 | Progress Note - Cardiology ---
Cardiology SOAP Progress Note Subjective: Gen malaise and weakness No cp or palp Short of breath with exertion Poor appetite No leg swelling Objective: I&O/Vital Signs 08/01/19 08/01/19 08/01/19 08/01/19 00:00 00:03 00:19 01:00 Temp 37.5 Pulse 86 88 Resp 10 21 B/P (MAP) 121/53 (75) 131/50 (77) Pulse Ox 96 89 O2 Delivery Nasal Cannula Nasal Cannula Nasal Cannula O2 Flow Rate 2.00 2.00 2.00 08/01/19 08/01/19 08/01/19 08/01/19 01:01 01:01 02:00 02:02 Pulse 89 97 Resp 18 B/P (MAP) 130/52 (78) Pulse Ox 94 92 O2 Delivery Nasal Cannula Nasal Cannula Nasal Cannula O2 Flow Rate 3.00 2.00 3.00 08/01/19 08/01/19 08/01/19 08/01/19 03:00 03:33 03:33 04:00 Temp 38.0 Pulse 94 92 Resp 26 19 B/P (MAP) 139/65 (89) 141/54 (83) Pulse Ox 90 96 94 O2 Delivery Nasal Cannula Nasal Cannula Nasal Cannula O2 Flow Rate 3.00 3.00 3.00 08/01/19 08/01/19 08/01/19 08/01/19 05:00 06:00 07:00 08:00 Pulse 92 91 88 91 Resp 31 26 10 B/P (MAP) 136/52 (80) 123/46 (71) 116/58 (77) Pulse Ox 94 94 100 O2 Delivery Nasal Cannula Nasal Cannula Nasal Cannula O2 Flow Rate 3.00 3.00 3.00 08/01/19 00:00 Intake Total 1520 ml Output Total 320 ml Balance 1200 ml Constitutional: AAO x 3, other (thin, frail) Respiratory: No accessory muscle use, No respiratory distress; chest expansion is symmetric, chest is bilaterally symmetric, other (good air entry) Cardiovascular: irregularly irregular; No JVD; S1 and S2 Gastrointestional: No tender; soft, audible bowel sounds (hypoactive) Extremities: other (mild to mod bilat LE swelling) Neurologic/Psychiatric: grossly intact (moves extremities) Skin: normal color, warm/dry Results/Procedures: Labs Laboratory Tests 07/31/19 12:16: Lactic Acid Level 2.70*H 07/31/19 14:21: Lactic Acid Level 2.20*H 07/31/19 15:49: Glucometer 119H 07/31/19 22:16: Glucometer 107 08/01/19 05:35: Glucometer 78 08/01/19 07:27: White Blood Count 5.5, Red Blood Count 2.69L, Hemoglobin 7.7L, Hematocrit 25L, Mean Corpuscular Volume 91, Mean Corpuscular Hemoglobin 29, Mean Corpuscular Hemoglobin Concent 31L, Red Cell Distribution Width 20.0H, Platelet Count 79L, Mean Platelet Volume 11.3H, Neutrophils (%) (Auto) 63, Lymphocytes (%) (Auto) 11L, Monocytes (%) (Auto) 26H, Eosinophils (%) (Auto) 0, Basophils (%) (Auto) 1, Neutrophils # (Auto) 3.4, Lymphocytes # (Auto) 0.6L, Monocytes # (Auto) 1.4H, Eosinophils # (Auto) 0.0, Basophils # (Auto) 0.0, Sodium Level 132L, Potassium Level 4.4, Chloride Level 95L, Carbon Dioxide Level 26, Anion Gap 11, Blood Urea Nitrogen 12, Creatinine 0.62, Estimat Glomerular Filtration Rate > 60, BUN/Creatinine Ratio 19, Glucose Level 97, Lactic Acid Level 1.73, Calcium Level 7.4L, Phosphorus Level 3.0, Magnesium Level 1.5L Microbiology 07/29/19 Blood Culture - Preliminary, Resulted No growth 07/27/19 MRSA Screen - Final, Complete MRSA not isolated 07/27/19 Urine Culture - Final, Complete NO GROWTH Laboratory Tests 07/31/19 04:42 08/01/19 07:27 A/P: Assessment: Severe sepsis - Medical Services managing FUO Lymphadenopathy - Med Svce and Heme/Onc managing Chronic HFpEF Severe anemia of undetermined etiology (she reports chronic anemia for which she has had multiple eval in the past with unknown cause). Stool positive for occult blood during previous admission - Dr. Payne of Hematology/Oncology previously consulted Thrombocytopenia, managed by the Med Svce SSS. Intermittent wandering atrial pacemaker during this admission. H/o PAF that has chronically been treated with flecainide (pt states years, but doesn't who started it when). OAC has been withheld d/t because of severe anemia of undetermined etiology (per recs of hospitalist during previous admission earlier this month) Echo of 07/11/19: LVEF 60-65%, mild MR, mod AI, mild to mod TR, grade 2 mccullough dysfunction, RVSP 47 mmHg MPI of Jul 13, 2019 showed no evidence of ischemia/infarction; LVEF 67% Plan: * Management has been and remains very complex due to multiple comorbidities that are outlined above * Overall worsening led to transfer to ICU yesterday * Sources of anemia and fever remain undiagnosed. This is being worked up and treated by the Hospitalist and Heme/Onc services * Continue Flecainide (which she has tolerated well for years, according to her) to prevent A Fib because she is not a suitable candidate for OAC * Replenish Mg * Monitor labs ANA FINLEY MD FACP FAC CCDS Aug 01, 2019 11:58 POS
[2019-08-01] MEDS: MAGNESIUM 1 GM/100 ML IVPB 100 ML IV SCH ×2 (13:04→18:40)
--- NOTE | 2019-08-01 13:27 | CONSULTATION REPORT ---
DATE OF SERVICE: 08/01/2019 The patient is admitted to ICU bed 12. PHYSICIAN REQUESTING CONSULTATION: Ivelisse Alba DO IMPRESSION: 1. A 74-year-old female with anemia and thrombocytopenia of undetermined etiology. 2. Symptoms of fevers and night sweats, which is worsening. 3. Previous extensive workup at [facility] including bone marrow aspiration and biopsy, which was nondiagnostic. 4. Bilateral axillary lymphadenopathy and splenomegaly. RECOMMENDATIONS: 1. Transfuse PRBCs to maintain hemoglobin more than 8 grams per deciliter because of her age and functional status. 2. Agree with a biopsy of axillary lymph node. Send the specimen fresh to pathology for flow cytometry, cultures and histology. 3. GI bleeding with a positive Hemoccult in the past. The patient was scheduled for a capsule endoscopy as an outpatient procedure with Dr. Pereira. This can be rescheduled once she is discharged. 4. Thrombocytopenia, most likely due to splenomegaly. 5. We will follow the patient with you and await the pathology report before making definitive recommendations. BRIEF HISTORY: The patient is a 74-year-old female, who was readmitted to the hospital with increasing weakness and fevers. She has been in different hospitals since the past 2 months. Initially, she was diagnosed with pneumonia in December as well as 04/2019 and since May, she has been hospitalized initially to [facility] because of fever of unknown origin as well as anemia. She was transferred to [facility] after 10 days and underwent extensive workup with involvement from GI, hematology, infectious disease, rheumatology, cardiology and pulmonary services. She underwent bone marrow examination twice, once in [place] and once at [facility], both of which were unremarkable. She was then sent to a longterm, but readmitted to [facility] in [place], [place] and then transferred to [facility]. From there, she got admitted to rehabilitation services at [facility] and was discharged to the longterm. Approximately a week ago, she was readmitted to the hospital with a high spiking fever, night sweats and increasing weakness. During this admission, CT scans showed enlarged bilateral axillary lymphadenopathy as well as splenomegaly. Hence, a hematology consultation was requested for further recommendations. The patient is scheduled for an axillary lymph node biopsy tomorrow. PAST MEDICAL HISTORY: Significant for diabetes mellitus type 2 for more than 10 years. Diagnosed with rheumatoid arthritis in 2013 and was on treatment with Xeljanz until mid 2019. History of atrial fibrillation and was on anticoagulation previously, which has been on hold since the last few weeks because of GI bleeding and anemia. She has been requiring PRBC transfusions almost on a weekly basis for the last two months. PRIOR SURGERIES: Include an appendectomy, cholecystectomy, hysterectomy, bladder prolapse and two recent bone marrow evaluations. SOCIAL HISTORY: The patient is and lived in [place], [place] previously. She has three biological daughters, all of whom live close by and one stepdaughter and an adopted son. No history of tobacco, alcohol or recreational drug use. 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 No significant exposure to chemicals as well as the family knows. FAMILY HISTORY: Significant for patient's brother with a history of an acute leukemia while in his 70s. Another brother with throat cancer early in life and non-Hodgkin's lymphoma in his 70s. Her sister was diagnosed with lung cancer. Maternal grandmother had colon cancer. No other malignancies or major medical problems that the patient knows of. PHYSICAL EXAMINATION: GENERAL: Showed an elderly female, awake, but not well oriented. VITAL SIGNS: She was afebrile at the time of evaluation. Pulse rate 91, respirations 10, blood pressure 116/58 with oxygen saturation of 100% on 3 liters of oxygen by nasal cannula. HEENT: Normocephalic, extraocular muscles intact, conjunctivae pale, oral mucosa moist. NECK: Supple, with no JVD. No cervical or supraclavicular lymphadenopathy palpable. Bilateral axillary lymphadenopathy palpable especially on the left side measuring more than 1 inch in diameter. No inguinal lymphadenopathy palpable. CHEST: Symmetrical. LUNGS: With diminished or absent breath sounds in both bases. No wheezes or rales heard. CARDIOVASCULAR: Irregular with controlled rate with a grade II systolic murmur. ABDOMEN: Soft, nontender with no hepatosplenomegaly palpable. No other masses palpable. EXTREMITIES: Showed no edema. NEUROLOGIC: Grossly intact without focal motor deficits. LABORATORY DATA: CBC done today showed WBC 5.5, hemoglobin 7.7, platelet count 79,000 with neutrophil count 3.4, lymphocyte count 0.6 and monocyte count 1.4. BMP showed sodium level of 132. BUN was 12 and creatinine 0.62 with GFR more than 60 mL per minute. Serum magnesium was 1.5. Protime on 07/27/2019 was 16.1 and PTT 39. Rheumatoid factor was less than 15 on 07/29/2019. Fecal occult blood test done on 07/10/2019 was positive. The patient had a CT scan of the chest, abdomen and pelvis on 07/30/2019. CT scan of the chest showed bilateral axillary adenopathy with the largest lymph node in the left axilla measuring 3.4 x 2.5 cm. No mediastinal or hilar adenopathy seen. Small pericardial effusion with bilateral large pleural effusions associated with compressive atelectasis. A 1.1 cm ground glass nodular density within the left lateral apex. CT scan of the abdomen showed moderate splenomegaly measuring 13.3 x 9.7 x 13 cm. The liver was unremarkable. CT scan of the pelvis showed trace amount of free fluid. No lymphadenopathy palpable in the abdomen or pelvis. Thank you for allowing me to participate in this patient's care. I will follow the patient with you. Job ID: [id number] DocumentID: [id number] Dictated Date: 08/01/2019 11:04:58 Nicker Date: 08/01/2019 13:26:39 Dictated By: LEEROY BANERJEE MD MTDD
[2019-08-01] MEDS: ACETAMINOPHEN 650 MG SUPP (TYLENOL) PR PRN (16:20)
[2019-08-02] VITALS (16 sets, daily range): BP systolic 100–148; BP diastolic 43–54
[2019-08-02] MEDS: KCL 20 MEQ TAB (K-DUR) PO SCH ×2 (01:22→01:23)
[2019-08-02] MEDS: RT-ALBUTEROL/IPRATROPIUM 3 ML (DUONEB) VIAL INH SCH ×4 (03:01→21:05)
[2019-08-02 03:54] LABS: BASOPHILS % (AUTO) 1 % (0-10); EOSINOPHILS % (AUTO) 1 % (0-10); HEMATOCRIT 23 % (35-52); HEMOGLOBIN 7.3 G/DL (11.5-16.0); LYMPHOCYTES # (AUTO) 0.6 X 10^3 (1.0-4.0); LYMPHOCYTES % (AUTO) 12 % (12-44); MEAN CORPUSCULAR HEMOGLOBIN 29 PG (25-34); MEAN CORPUSCULAR HGB CONC 32 G/DL (32-36); MEAN CORPUSCULAR VOLUME 89 FL (80-99); MEAN PLATELET VOLUME 10.8 FL (7.4-10.4); MONOCYTES # (AUTO) 1.3 X 10^3 (0.0-1.0); MONOCYTES % (AUTO) 24 % (0-12); NEUTROPHILS # (AUTO) 3.3 X 10^3 (1.8-7.8); NEUTROPHILS % (AUTO) 63 % (42-75); PLATELET COUNT 73 10^3/uL (130-400); RED CELL DISTRIBUTION WIDTH 19.8 % (10.0-14.5); WHITE BLOOD COUNT 5.2 10^3/uL (4.3-11.0)
[2019-08-02 04:12] LABS: BUN/CREATININE RATIO 22; CALCIUM 7.3 MG/DL (8.5-10.1); CARBON DIOXIDE 25 MMOL/L (21-32); CHLORIDE 97 MMOL/L (98-107); GFR ESTIMATED > 60; GLUCOSE 116 MG/DL (70-105); MAGNESIUM 1.9 MG/DL (1.6-2.4); PHOSPHORUS 3.1 MG/DL (2.3-4.7); POTASSIUM 4.7 MMOL/L (3.6-5.0); SODIUM 129 MMOL/L (135-145)
[2019-08-02] MEDS: inSUlin ASPART (NovoLOG) 1 UNIT/0.01 ML (CHARGE PER UNIT) SC SCH ×4 (04:19→23:35)
[2019-08-02] MEDS: ONDANSETRON 4 MG/2 ML (SDV) Z0FRAN IV PRN (04:35)
[2019-08-02] MEDS ORDERED: LACTATED RINGERS 2,000 ML IV ONE (05:39)
[2019-08-02] MEDS ORDERED: PROMETHAZINE INJ 25 MG/ML (PHENERGAN) AMP ONE (05:39)
--- NOTE | 2019-08-02 05:39 | Pulmonary Progress Note ---
Subjective Time Seen by a Provider: 05:44 Subjective/Events-last exam Pt is complaining nausea no abdominal pain. Sepsis Event Evaluation Height, Weight, BMI Height: '" Weight: lbs. oz. kg; 21.00 BMI Method:Estimated Focused Exam Lactate Level 07/31/19 12:16: Lactic Acid Level 2.70*H 07/31/19 14:21: Lactic Acid Level 2.20*H 08/01/19 07:27: Lactic Acid Level 1.73 Time of Focused Exam: 18:46 Exam Exam Vital Signs Date Time Temp Pulse Resp B/P (MAP) Pulse Ox O2 Delivery O2 Flow Rate FiO2 08/02/19 04:00 93 Room Air 08/02/19 03:01 96 Room Air 08/02/19 01:00 73 08/02/19 00:18 36.3 Room Air 08/02/19 00:00 94 Room Air 08/02/19 00:00 71 25 109/49 (69) 100 Nasal Cannula 3.00 08/01/19 20:22 37.4 89 20 160/66 (97) 100 Nasal Cannula 3.00 08/01/19 20:00 95 Nasal Cannula 2.00 08/01/19 19:35 37.6 08/01/19 19:00 90 20 144/60 (88) 100 Nasal Cannula 3.00 08/01/19 19:00 90 08/01/19 18:35 37.6 08/01/19 16:51 96 Nasal Cannula 3.00 08/01/19 16:20 38.2 08/01/19 16:00 86 21 170/69 (102) Nasal Cannula 3.00 08/01/19 15:48 94 Nasal Cannula 2.00 08/01/19 15:46 37.3 08/01/19 15:41 37.2 81 96 08/01/19 14:51 37.2 81 18 125/82 96 Nasal Cannula 4.00 08/01/19 14:34 37.2 80 18 121/50 97 Nasal Cannula 3.00 08/01/19 13:00 96 Nasal Cannula 3.00 08/01/19 12:10 81 08/01/19 12:00 84 19 101/41 (61) 95 Nasal Cannula 3.00 08/01/19 11:23 36.7 08/01/19 08:00 91 10 116/58 (77) 100 Nasal Cannula 3.00 08/01/19 07:45 96 Nasal Cannula 3.00 08/01/19 07:00 88 08/01/19 06:00 91 26 123/46 (71) 94 Nasal Cannula 3.00 I & O 08/02/19 07:00 Intake Total 940 ml Output Total 650 ml Balance 290 ml Height & Weight Height: '" Weight: lbs. oz. kg; 21.00 BMI Method:Estimated General Appearance: Chronically ill, Mild Distress HEENT: PERRL/EOMI, Pharynx Normal Neck: Normal Inspection, Supple Respiratory: Lungs Clear, Normal Breath Sounds, No Respiratory Distress Cardiovascular: Regular Rate, Rhythm, No Murmur Capillary Refill: Less Than 3 Seconds Gastrointestinal: normal bowel sounds, non tender, soft Extremity: Normal Inspection, Non Tender, Pedal Edema Neurologic/Psychiatric: Alert, Oriented x3, No Motor/Sensory Deficits, Depressed Affect Skin: Warm/Dry, Pallor Lymphatic: Other (left axillary lymph node) Results Lab Laboratory Tests 08/01/19 07:27 08/02/19 03:45 Assessment/Plan Assessment/Plan UTI with sepsis and PNA - Merrem -Hernandez cultures reviewed -MRSA swab neg Pulmonary edema with bilateral pleural effusions - improving with lasix -CT chest reviewed -Will do thoracentesis today -Check Echo Mild hypotension with decreased and concentrated UO -Give liter bolus of LR -LR 150 Metabolic encephalopathy -Serge worse during fever's -LP would be risky secondary to thrombocytopenia Anemia -Transfuse another 1 unit PRBC Metabolic lactic acid -Hold lasix Lung nodule -Will need out pt serial chest cts Fever of unknown origin Possible lymphoma s/p axillary node bx -Cytology pending Thombocytopenia Mild anemia -s/p 1 unit PRBC -Check occult stool - was positive last hospitalization -Pt is colonoscopy on Friday in [place] Connelly DO Aug 02, 2019 05:39 POS
[2019-08-02] MEDS: PROMETHAZINE INJ 25 MG/ML (PHENERGAN) AMP IVP ONE ×2 (05:55→11:57)
[2019-08-02] MEDS: LACTATED RINGERS 1,000 ML IV ONE ×2 (05:55→11:57)
[2019-08-02] MEDS ORDERED: MEROPENEM 2,000 MG in NS (IVPB) 100 ML IV SCH (06:00)
[2019-08-02 06:04] LABS: ALBUMIN 1.7 GM/DL (3.2-4.5); BILIRUBIN,INDIRECT 1.1 MG/DL; BILIRUBIN,TOTAL 2.1 MG/DL (0.1-1.0); TOTAL PROTEIN 4.5 GM/DL (6.4-8.2)
--- NOTE | 2019-08-02 08:02 | Diagnostic Imaging Report ---
INDICATION: Sepsis, pneumonia COMPARISON: 08/01/2019 TECHNIQUE: Single radiograph chest dated 08/02/2019. FINDINGS: Cardiac silhouette is enlarged. Pulmonary vasculature is stable. Improving though persistent small bilateral pleural parenchymal opacities. No new focal pulmonary opacity. No pneumothorax. Osseous structures are stable. IMPRESSION: Improved though persistent bibasilar pleural-parenchymal opacities, related to a combination of pleural fluid with adjacent atelectasis and/or infiltrate. Dictated by: Dictated on workstation # [id number]
--- NOTE | 2019-08-02 09:05 | Progress Note - Hospitalist ---
Subjective HPI/CC On Admission Date Seen by Provider: Aug 02, 2019 Time Seen by Provider: 08:58 fever, tachycardia, and hypotension Subjective/Events-last exam Pt reports doing well today. Nausea resolved. Plan for thoracentesis and biopsy today. Focused Exam Lactate Level 07/31/19 12:16: Lactic Acid Level 2.70*H 07/31/19 14:21: Lactic Acid Level 2.20*H 08/01/19 07:27: Lactic Acid Level 1.73 Time of Focused Exam: 18:46 Objective Exam Vital Signs Vital Signs Date Time Temp Pulse Resp B/P (MAP) Pulse Ox O2 Delivery O2 Flow Rate FiO2 08/02/19 07:00 76 08/02/19 04:00 36.1 22 107/48 (67) 99 Room Air 08/02/19 00:00 3.00 07/29/19 10:46 28 Capillary Refill : Less Than 3 SecondsLess Than 3 Seconds General Appearance: Chronically ill, Thin Respiratory: Lungs Clear, No Accessory Muscle Use, No Respiratory Distress Cardiovascular: Regular Rate, Rhythm, No Murmur Gastrointestinal: Normal Bowel Sounds, Non Tender, Soft Neurologic/Psychiatric: Alert, Oriented x3 Results/Procedures Lab Laboratory Tests 08/02/19 03:45 Patient resulted labs reviewed. Imaging: Reviewed Imaging Report Assessment/Plan Assessment and Plan Assess & Plan/Chief Complaint Fever of unknown origin Axillary lymphadenopathy Splenomegaly Lactic Acidosis, resolved -Recurrent fever, has completed Merrem -Previously worked up for fever at , [facility], and [facility] -CT Chest/Abdomen/Pelvis revealed large left axillary lymph node, moderate splenomegaly -Oncology consulted, recommends surgery perform excisional biopsy -General surgery consulted for biopsy this afternoon - RVP ordered -was inadvertently cancelled by lab yesterday, will reorder Severe sepsis HCAP Bilateral pleural effusions -Completed Merrem -Cultures with no growth to date -Pulm following -Plan for thoracentesis today- was held yesterday for nausea Hypokalemia Hypomagnesemia Hypophosphatemia -Monitor and replace as needed Atrial fibrillation -Continue Flecainide and Coreg -Cardiology following -No anticoagulation due to recurrent GI bleeding and anemia Recurrent GI bleeding Chronic blood loss anemia -Hgb stable, up appropriately with transufsion yesterday - transfused again this AM in prep for biopsy Thrombocytopenia -Stable. ?splenomegaly -Continue to monitor DVT Prophylaxis: held due to recurrent GI bleeding Clinical Quality Measures DVT/VTE Risk/Contraindication: Risk Factor Score Per Nursin RFS Level Per Nursing on Admit: 4+=Very High Contraindications-Pharm: Other *list below* Other: Pt receiving blood transfusion, possible bleeding so no order for medication indicated. Pt does have SCD's ordered and on. ODELL JOHNSON MD Aug 02, 2019 09:05 POS
--- NOTE | 2019-08-02 09:22 | Diagnostic Imaging Report ---
EXAMINATION: Ultrasound of the chest. INDICATION: Pleural effusions. COMPARISON: Chest radiograph performed earlier the same date. TECHNIQUE: Focused live grayscale ultrasound of the chest was performed. FINDINGS: Bilateral pleural effusions are visualized, with the volume measuring approximately 600 on the left and 950 on the right. A few septations are noted within the left pleural effusion. IMPRESSION: Bilateral pleural effusions, right greater than left. Dictated by: Dictated on workstation # [id number]
--- NOTE | 2019-08-02 09:59 | Progress Note - Cardiology ---
Cardiology SOAP Progress Note Subjective: In bed. States she generally feels unwell. She reports her entire body aches. No c/o palpitations. C/O gen weakness, no appetite. Objective: I&O/Vital Signs 08/02/19 08/02/19 08/02/19 08/02/19 19:53 20:00 20:12 21:06 Temp 36.4 36.4 Pulse Ox 93 99 O2 Delivery Nasal Cannula Room Air O2 Flow Rate 3.00 08/02/19 08/02/19 08/02/19 08/03/19 22:27 22:42 23:52 00:00 Temp 36.2 36.3 36.3 Pulse 71 71 70 Resp 20 20 20 B/P (MAP) 106/51 115/51 119/50 (73) Pulse Ox 98 97 98 97 O2 Delivery Nasal Cannula Nasal Cannula Nasal Cannula Nasal Cannula O2 Flow Rate 2.00 2.00 1.00 1.00 08/03/19 08/03/19 08/03/19 08/03/19 01:00 01:40 04:10 04:11 Temp 36.4 36.1 Pulse 70 64 67 Resp 20 18 B/P (MAP) 106/48 165/54 (91) Pulse Ox 95 96 97 O2 Delivery Nasal Cannula Nasal Cannula Nasal Cannula O2 Flow Rate 1.00 1.00 1.00 08/03/19 00:00 Intake Total 1220 ml Output Total 385 ml Balance 835 ml Constitutional: AAO x 3, other (thin, frail) Respiratory: No accessory muscle use, No respiratory distress; chest expansion is symmetric, chest is bilaterally symmetric, other (good air entry) Cardiovascular: regular rate-rhythm; No JVD; S1 and S2 Gastrointestional: No tender; soft, audible bowel sounds (hypoactive) Extremities: other (mild to mod bilat LE swelling) Neurologic/Psychiatric: grossly intact (moves extremities) Skin: normal color, warm/dry Results/Procedures: Labs Laboratory Tests 08/02/19 11:28: Glucometer 92 08/02/19 17:36: Glucometer 92 08/02/19 18:15: 08/02/19 23:33: Glucometer 99 08/03/19 04:06: White Blood Count 5.8, Red Blood Count 2.64L, Hemoglobin 7.7L, Hematocrit 24L, Mean Corpuscular Volume 91, Mean Corpuscular Hemoglobin 29, Mean Corpuscular Hemoglobin Concent 32, Red Cell Distribution Width 18.3H, Platelet Count 66L, Mean Platelet Volume 10.4, Neutrophils (%) (Auto) 71, Lymphocytes (%) (Auto) 12, Monocytes (%) (Auto) 16H, Eosinophils (%) (Auto) 1, Basophils (%) (Auto) 1, Neutrophils # (Auto) 4.1, Lymphocytes # (Auto) 0.7L, Monocytes # (Auto) 0.9, Eosinophils # (Auto) 0.0, Basophils # (Auto) 0.0, Sodium Level 131L, Potassium Level 4.5, Chloride Level 98, Carbon Dioxide Level 25, Anion Gap 8, Blood Urea Nitrogen 12, Creatinine 0.56L, Estimat Glomerular Filtration Rate > 60, BUN/Creatinine Ratio 21, Glucose Level 86, Calcium Level 7.1L, Corrected Calcium 9.0, Phosphorus Level 3.8, Magnesium Level 1.7, Total Bilirubin 2.3H, Aspartate Amino Transf (AST/SGOT) 54H, Alanine Aminotransferase (ALT/SGPT) 10, Alkaline Phosphatase 113, Total Protein 4.2L, Albumin 1.6L 08/03/19 06:32: Body Fluid Glucose 97, Body Fluid Total Protein 0.9, Body Fluid Albumin 0.6, Body Fluid Lactate Dehydrogenase 289, Body Fluid Amylase 8, Body Fluid Triglycerides 13 08/03/19 06:58: Urine Color REDH, Urine Clarity SL CLOUDY, Urine pH 7.0, Urine Specific [place] 1.015L, Urine Protein 3+H, Urine Glucose (UA) TRACEH, Urine Ketones 1+H, Urine Nitrite POSITIVE, Urine Bilirubin NEGATIVE, Urine Urobilinogen >=8.0, Urine Leukocyte Esterase 2+H, Urine RBC (Auto) 3+H, Urine RBC 10-25H, Urine WBC 50- 100H, Urine Squamous Epithelial Cells 2-5, Urine Crystals PRESENTH, Urine Calcium Oxalate Crystals FEWH, Urine Amorphous Sediment FEW HAJA PHOSPHATEH, Urine Bacteria MODERATEH, Urine Casts PRESENT, Urine Granular Casts 2-5H, Urine Mucus NEGATIVE, Urine Yeast MODERATEH, Urine Culture Indicated YES Microbiology 07/29/19 Blood Culture - Preliminary, Resulted No growth 07/27/19 MRSA Screen - Final, Complete MRSA not isolated 07/27/19 Urine Culture - Final, Complete NO GROWTH A/P: Assessment: Severe sepsis - Medical Services managing FUO Lymphadenopathy - Med Svce and Heme/Onc managing Chronic HFpEF Severe anemia of undetermined etiology (she reports chronic anemia for which she has had multiple eval in the past with unknown cause). Stool positive for occult blood during previous admission - Dr. Payne of Hematology/Oncology previously consulted Thrombocytopenia, managed by the Med Svce SSS. Intermittent wandering atrial pacemaker during this admission. H/o PAF that has chronically been treated with flecainide (pt states years, but doesn't who started it when). OAC has been withheld d/t because of severe anemia of undetermined etiology (per recs of hospitalist during previous admission earlier this month) Echo of 07/11/19: LVEF 60-65%, mild MR, mod AI, mild to mod TR, grade 2 mccullough dysfunction, RVSP 47 mmHg MPI of Jul 13, 2019 showed no evidence of ischemia/infarction; LVEF 67% Plan: * Management has been and remains very complex due to multiple comorbidities that are outlined above * Sources of anemia and fever remain undiagnosed. This is being worked up and treated by the Hospitalist and Heme/Onc services * Continue Flecainide (which she has tolerated well for years, according to her) to prevent A Fib because she is not a suitable candidate for OAC * Monitor labs ADVINA TRONCOSO Aug 02, 2019 09:58 POS
--- NOTE | 2019-08-02 10:55 | NUR ---
Pastoral care visit w/pts sister, offered support, prayer and encouragement.
--- NOTE | 2019-08-02 11:32 | Diagnostic Imaging Report ---
EXAMINATION: Chest 1 view INDICATION: PICC line placement. COMPARISON: 08/02/2019 at 3:30 AM FINDINGS: There has been interval placement of a right PICC with the tip overlying the cavoatrial juncture. Bilateral pleural effusions are again noted with bibasilar opacities. No pneumothorax. Stable cardiac silhouette. No acute osseous abnormalities. IMPRESSION: 1. Interval placement of a right PICC with the tip overlying the cavoatrial juncture. 2. Stable bilateral pleural effusions with bibasilar opacities. Dictated by: Dictated on workstation # [id number]
[2019-08-02] MEDS: CARVEDILOL 6.25 MG (COREG) TAB PO SCH ×2 (11:58→23:35)
[2019-08-02] MEDS: FLECAINIDE 100 MG (TAMBOCOR) TAB PO SCH ×2 (11:58→23:35)
[2019-08-02] MEDS: PANTOPRAZOLE 40 MG (PROTONIX) VIAL IV SCH (11:58)
[2019-08-02] MEDS: MEROPENEM 500 MG/SWFI 10 ML IV PUSH IV SCH ×6 (12:09→23:49)
--- NOTE | 2019-08-02 13:30 | Progress Note - Cardiology ---
Cardiology SOAP Progress Note Subjective: Gen malaise and weakness No cp or palp No shortness of breath at rest Poor appetite Objective: I&O/Vital Signs 08/02/19 08/02/19 08/02/19 08/02/19 03:01 04:00 04:00 07:00 Temp 36.1 Pulse 72 76 Resp 22 B/P (MAP) 107/48 (67) Pulse Ox 96 93 99 O2 Delivery Room Air Room Air Room Air 08/02/19 08/02/19 08/02/19 08/02/19 08:00 08:00 10:16 11:28 Temp 37.8 Pulse 73 Resp 37 B/P (MAP) Pulse Ox 93 100 99 O2 Delivery Room Air Room Air Room Air 08/02/19 08/02/19 12:00 13:00 Pulse 86 98 Resp 25 B/P (MAP) 148/53 (84) Pulse Ox 97 O2 Delivery Room Air 08/02/19 00:00 Intake Total 940 ml Output Total 500 ml Balance 440 ml Constitutional: AAO x 3, other (thin, frail) Respiratory: No accessory muscle use, No respiratory distress; chest expansion is symmetric, chest is bilaterally symmetric, other (good air entry) Cardiovascular: regular rate-rhythm; No JVD; S1 and S2 Gastrointestional: No tender; soft, audible bowel sounds (hypoactive) Extremities: other (mild to mod bilat LE swelling) Neurologic/Psychiatric: grossly intact (moves extremities) Skin: normal color, warm/dry Results/Procedures: Labs Laboratory Tests 08/01/19 16:47: Glucometer 84 08/01/19 20:57: Glucometer 100 08/02/19 03:45: White Blood Count 5.2, Red Blood Count 2.55L, Hemoglobin 7.3L, Hematocrit 23L, Mean Corpuscular Volume 89, Mean Corpuscular Hemoglobin 29, Mean Corpuscular Hemoglobin Concent 32, Red Cell Distribution Width 19.8H, Platelet Count 73L, Mean Platelet Volume 10.8H, Neutrophils (%) (Auto) 63, Lymphocytes (%) (Auto) 12, Monocytes (%) (Auto) 24H, Eosinophils (%) (Auto) 1, Basophils (%) (Auto) 1, Neutrophils # (Auto) 3.3, Lymphocytes # (Auto) 0.6L, Monocytes # (Auto) 1.3H, Eosinophils # (Auto) 0.0, Basophils # (Auto) 0.0, Sodium Level 129L, Potassium Level 4.7, Chloride Level 97L, Carbon Dioxide Level 25, Anion Gap 7, Blood Urea Nitrogen 13, Creatinine 0.60, Estimat Glomerular Filtration Rate > 60, BUN/Creatinine Ratio 22, Glucose Level 116H, Calcium Level 7.3L, Phosphorus Level 3.1, Magnesium Level 1.9, Total Bilirubin 2.1H, Direct Bilirubin 1.0H, Indirect Bilirubin 1.1, Aspartate Amino Transf (AST/SGOT) 48H, Alanine Aminotransferase (ALT/SGPT) 9, Alkaline Phosphatase 116, Total Protein 4.5L, Albumin 1.7L, Amylase Level 21L, Lipase 24 08/02/19 11:28: Glucometer 92 Microbiology 07/29/19 Blood Culture - Preliminary, Resulted No growth 07/27/19 MRSA Screen - Final, Complete MRSA not isolated 07/27/19 Urine Culture - Final, Complete NO GROWTH A/P: Assessment: Severe sepsis - Medical Services managing FUO Lymphadenopathy - Med Svce and Heme/Onc managing Chronic HFpEF Severe anemia of undetermined etiology (she reports chronic anemia for which she has had multiple eval in the past with unknown cause). Stool positive for occult blood during previous admission - Dr. Payne of Hematology/Oncology previously consulted Thrombocytopenia, managed by the Ángel Goetz SSS. Intermittent wandering atrial pacemaker during this admission. H/o PAF that has chronically been treated with flecainide (pt states years, but doesn't who started it when). OAC has been withheld d/t because of severe anemia of undetermined etiology (per recs of hospitalist during previous admission earlier this month) Echo of 07/11/19: LVEF 60-65%, mild MR, mod AI, mild to mod TR, grade 2 mccullough dysfunction, RVSP 47 mmHg MPI of Jul 13, 2019 showed no evidence of ischemia/infarction; LVEF 67% Plan: * Management has been and remains very complex due to multiple comorbidities that are outlined above * Sources of anemia and fever remain undiagnosed. This is being worked up and treated by the Hospitalist and Heme/Onc services * Continue Flecainide (which she has tolerated well for years, according to her) to prevent A Fib because she is not a suitable candidate for OAC * Monitor labs * I reviewed her CV issues with her again today and answered questions ANA FINLEY MD FACP FAC CCDS Aug 02, 2019 13:30 POS
[2019-08-02] MEDS ORDERED: MIDAZOLAM 2 MG/2 ML (VERSED) VIAL ONE (14:53)
[2019-08-02] MEDS ORDERED: fentaNYL INJECTION 100 MCG/2 ML AMP ONE (14:54)
[2019-08-02] MEDS ORDERED: LACTATED RINGERS 1,000 ML IV PRN (15:13)
[2019-08-02] MEDS ORDERED: morphine INJ 10 MG/ML 1ML (SYR OR VIAL) IVP ONE (15:15)
[2019-08-02] MEDS ORDERED: ONDANSETRON 4 MG/2 ML (SDV) Z0FRAN IVP PRN (15:15)
[2019-08-02] MEDS ORDERED: fentaNYL INJECTION 100 MCG/2 ML AMP IVP ONE (15:15)
[2019-08-02] MEDS ORDERED: MEPERIDINE (DEMEROL) INJ 50 MG/ML IVP ONE (15:15)
[2019-08-02] MEDS: LACTATED RINGERS 1,000 ML IV SCH ×2 (15:22→15:23)
--- NOTE | 2019-08-02 15:56 | Progress Note-Pre Operative ---
Pre-Operative Progress Note H&P Reviewed The H&P was reviewed, patient examined and no changes noted. Date Seen by Provider: Aug 02, 2019 Time Seen by Provider: 14:20 Date H&P Reviewed: Aug 02, 2019 Time H&P Reviewed: 14:15 Pre-Operative Diagnosis: Unexplained fever, weight loss, left axillary adenopathy PAIGE SOTO APRN Aug 02, 2019 15:56 POS
--- NOTE | 2019-08-02 15:58 | Progress Note ---
Subjective Date Seen by a Provider: Aug 02, 2019 Time Seen by a Provider: 14:20 Subjective/Events-last exam Patient seen with Dr. White. Patient resting in bed. Has been having fevers. Was transferred to stepdown. Focused Exam Lactate Level 07/31/19 12:16: Lactic Acid Level 2.70*H 07/31/19 14:21: Lactic Acid Level 2.20*H 08/01/19 07:27: Lactic Acid Level 1.73 Time of Focused Exam: 18:46 Objective Exam Vital Signs Date Time Temp Pulse Resp B/P (MAP) Pulse Ox O2 Delivery O2 Flow Rate FiO2 08/02/19 13:00 98 08/02/19 12:00 93 Room Air 08/02/19 12:00 86 25 148/53 (84) 97 Room Air 08/02/19 11:28 37.8 08/02/19 10:16 99 Room Air 08/02/19 08:00 73 37 100 Room Air 08/02/19 08:00 93 Room Air 08/02/19 07:00 76 08/02/19 04:00 36.1 72 22 107/48 (67) 99 Room Air 08/02/19 04:00 93 Room Air 08/02/19 03:01 96 Room Air 08/02/19 01:00 73 08/02/19 00:18 36.3 Room Air 08/02/19 00:00 94 Room Air 08/02/19 00:00 71 25 109/49 (69) 100 Nasal Cannula 3.00 08/01/19 20:22 37.4 89 20 160/66 (97) 100 Nasal Cannula 3.00 08/01/19 20:00 95 Nasal Cannula 2.00 08/01/19 19:35 37.6 08/01/19 19:00 90 20 144/60 (88) 100 Nasal Cannula 3.00 08/01/19 19:00 90 08/01/19 18:35 37.6 08/01/19 16:51 96 Nasal Cannula 3.00 08/01/19 16:20 38.2 08/01/19 16:00 86 21 170/69 (102) Nasal Cannula 3.00 I & O 08/02/19 07:00 Intake Total 940 ml Output Total 750 ml Balance 190 ml Capillary Refill : Less Than 3 SecondsLess Than 3 Seconds General Appearance: No Apparent Distress, WD/WN Neck: Full Range of Motion, Normal Inspection, Supple Respiratory: Normal Breath Sounds, No Accessory Muscle Use, No Respiratory Distress Cardiovascular: Regular Rate, Rhythm, No Murmur Gastrointestinal: normal bowel sounds, non tender, soft Extremity: Normal Capillary Refill, Normal Inspection, Normal Range of Motion Neurologic/Psychiatric: Alert, Oriented x3 Skin: Normal Color, Warm/Dry Lymphatic: Axilla Node Tender (L) Results Lab Laboratory Tests 08/01/19 16:47: Glucometer 84 08/01/19 20:57: Glucometer 100 08/02/19 03:45: White Blood Count 5.2, Red Blood Count 2.55L, Hemoglobin 7.3L, Hematocrit 23L, Mean Corpuscular Volume 89, Mean Corpuscular Hemoglobin 29, Mean Corpuscular Hemoglobin Concent 32, Red Cell Distribution Width 19.8H, Platelet Count 73L, Mean Platelet Volume 10.8H, Neutrophils (%) (Auto) 63, Lymphocytes (%) (Auto) 12, Monocytes (%) (Auto) 24H, Eosinophils (%) (Auto) 1, Basophils (%) (Auto) 1, Neutrophils # (Auto) 3.3, Lymphocytes # (Auto) 0.6L, Monocytes # (Auto) 1.3H, Eosinophils # (Auto) 0.0, Basophils # (Auto) 0.0, Sodium Level 129L, Potassium Level 4.7, Chloride Level 97L, Carbon Dioxide Level 25, Anion Gap 7, Blood Urea Nitrogen 13, Creatinine 0.60, Estimat Glomerular Filtration Rate > 60, BUN/Cr eatinine Ratio 22, Glucose Level 116H, Calcium Level 7.3L, Phosphorus Level 3.1, Magnesium Level 1.9, Total Bilirubin 2.1H, Direct Bilirubin 1.0H, Indirect Bilirubin 1.1, Aspartate Amino Transf (AST/SGOT) 48H, Alanine Aminotransferase (ALT/SGPT) 9, Alkaline Phosphatase 116, Total Protein 4.5L, Albumin 1.7L, Amylase Level 21L, Lipase 24 08/02/19 11:28: Glucometer 92 Microbiology 07/29/19 Blood Culture - Preliminary, Resulted No growth 07/27/19 MRSA Screen - Final, Complete MRSA not isolated 07/27/19 Urine Culture - Final, Complete NO GROWTH Assessment/Plan Assessment/Plan Assess & Plan/Chief Complaint A 74-year-old female with nonspecific symptoms, fevers, failure to thrive, bilateral axillary adenopathy. Will proceed wiht excisional bx LN left axilla under MAC anesthesia. Clinical Quality Measures DVT/VTE Risk/Contraindication: Risk Factor Score Per Nursin RFS Level Per Nursing on Admit: 4+=Very High Contraindications-Pharm: Other *list below* Other: Pt receiving blood transfusion, possible bleeding so no order for medication indicated. Pt does have SCD's ordered and on. PAIGE SOTO [employer]IAN Aug 02, 2019 15:58 POS
--- NOTE | 2019-08-02 16:10 | NUR ---
OR STAFF ON UNIT TO TAKE PT DOWN FOR BIOPSY.
[2019-08-02] MEDS ORDERED: BUP/EPI 0.5% 1:200,000 (MARCAINE) 10ML VIAL IJ ONE (16:29)
[2019-08-02] MEDS ORDERED: ceFAZolin INJECTION 1,000 MG VIAL IV ONE (16:30)
[2019-08-02] MEDS ORDERED: SEVOFLURANE (ULTANE) 15 ML INHAL SOLN ONE (16:35)
[2019-08-02] MEDS ORDERED: ISOFLURANE (FORANE) 15 ML/15 MIN INHALATION ONE ×4 (16:35→17:34)
[2019-08-02] MEDS ORDERED: ceFAZolin INJECTION 1,000 MG ONE (16:35)
[2019-08-02] MEDS ORDERED: ONDANSETRON 4 MG/2 ML (SDV) Z0FRAN ONE (16:36)
[2019-08-02] MEDS ORDERED: proPOfol 200 MG/20 ML (DIPRIVAN) VIAL IV ONE (16:36)
[2019-08-02] MEDS ORDERED: LIDOCAINE PF 2% 5 ML (XYLOCAINE) VIAL ONE (16:36)
[2019-08-02] MEDS ORDERED: PHENYLEPHRINE 100 MCG/ML 10 ML (ANESTHESIA) SYR ONE (16:38)
--- NOTE | 2019-08-02 17:17 | Progress Note-Post Operative ---
Post-Operative Progess Note Surgeon (s)/Manager Study (s) Surgeon ELIA RILEY MD Manager Study: elena godfrey APRN Pre-Operative Diagnosis Unexplained fever, weight loss, left axillary adenopathy Post-Operative Diagnosis large axillary mass, likely neoplastic. Procedure & Operative Findings Date of Procedure 08/02/19 Procedure Performed/Findings axillary mass/node dissection. Anesthesia Type general LMA with local Estimated Blood Loss Estimated blood loss (mL): minimal Specimens/Packing Specimens Removed left axillary mass ELIA RILEY MD Aug 02, 2019 17:17 POS
[2019-08-02] MEDS: NS IV 500 ML 500 ML IV SCH (22:25)
[2019-08-02] MEDS ORDERED: MEROPENEM 500 MG VIAL (MERREM) IV ONE (23:39)
[2019-08-02] MEDS ORDERED: WATER (STERILE) FOR INJECTION 10 ML ONE (23:40)
--- NOTE | 2019-08-03 01:34 | OPERATIVE REPORT ---
DATE OF SERVICE: 08/02/2019 ATTENDING PRIMARY CARE PHYSICIAN: Dr. Santos. ADMITTING PHYSICIAN: Dr. Ivelisse Alba. PREOPERATIVE DIAGNOSES: Fever, chills, weight loss, night sweats, large left axillary mass. POSTOPERATIVE DIAGNOSES: Fever, chills, weight loss, night sweats, large left axillary mass. PROCEDURE: Left axillary mass and lymph node dissection. SURGEON: Elia White MD. THEATRE DIRECTOR: Lior Subramanian APRN. ANESTHESIA: General laryngeal mask airway with local. ESTIMATED BLOOD LOSS: Minimal. FINDINGS: Large axillary mass that extended into the subpectoralis major region. This appears to be a neoplastic process. DISPOSITION: The patient tolerated the procedure well. INDICATIONS: The patient is a 74-year-old female with multiple medical problems including multiple recent hospitalizations including GI bleed, paroxysmal atrial fibrillation, anemia, fever, tachycardia, hypotension and shortness of breath. She was treated for sepsis with antibiotics and correction of electrolytes. Her atrial fibrillation with rapid ventricular response was being evaluated by cardiology; however, anticoagulation was held due to GI bleed and hemoglobin of 7.6 upon admission. Her blood levels did come up appropriately after transfusion of 1 unit of packed red blood cells. She already has scheduled appointment to see gastroenterology in [place]. She was found to have palpable large lymphadenopathy in the left axilla. CT scan of the chest and abdomen did show bilateral pleural effusions as well as moderate splenomegaly and enlarged bilateral axillary lymph nodes with a large mass of the left axilla which was matted. DESCRIPTION OF PROCEDURE: The patient was brought to the operating room, laid supine on the table. After adequate IV pain and sedative medications and general laryngeal mask airway intubation, the axilla and chest were prepped and draped in standard surgical fashion. A 0.5% Marcaine with epinephrine was then used to anesthetize overlying skin to the lesion and a transverse skin incision made using a 15 blade. Subcutaneous tissue was then dissected using electrocautery. Once the clavipectoral fascia was then opened, a large mass was identified. This was then dissected using blunt dissection as well as electrocautery. This did extend to underneath the pectoralis major muscle as well as more superiorly and it encompassed the vast majority of the left axilla and the nodes as well. This was removed en bloc after dissection with visualization of good hemostasis. The clavipectoral fascia was then reapproximated using 3-0 Vicryl interrupted suture. Skin was closed using 4-0 Monocryl running subcuticular suture. Wound was then cleaned and covered with Dermabond. The patient tolerated the procedure well. We will start IV normal pain medication as well as a clear liquid diet and advance as tolerated. We will await the biopsy results; however, based on the gross specimen, this appears to be related to some form of lymphoma. Job ID: [id number] DocumentID: [id number] Dictated Date: 08/02/2019 17:25:38 Statistical Analyst Date: 08/03/2019 01:33:43 Dictated By: ELIA WHITE MD MTDD
[2019-08-03 01:40] VITALS: BP 106/48
[2019-08-03] MEDS: LACTATED RINGERS 1,000 ML IV SCH ×5 (01:47→22:35)
[2019-08-03 04:10] VITALS: BP 165/54
[2019-08-03 04:16] LABS: BASOPHILS % (AUTO) 1 % (0-10); EOSINOPHILS % (AUTO) 1 % (0-10); HEMATOCRIT 24 % (35-52); HEMOGLOBIN 7.7 G/DL (11.5-16.0); LYMPHOCYTES # (AUTO) 0.7 X 10^3 (1.0-4.0); LYMPHOCYTES % (AUTO) 12 % (12-44); MEAN CORPUSCULAR HEMOGLOBIN 29 PG (25-34); MEAN CORPUSCULAR HGB CONC 32 G/DL (32-36); MEAN CORPUSCULAR VOLUME 91 FL (80-99); MEAN PLATELET VOLUME 10.4 FL (7.4-10.4); MONOCYTES # (AUTO) 0.9 X 10^3 (0.0-1.0); MONOCYTES % (AUTO) 16 % (0-12); NEUTROPHILS # (AUTO) 4.1 X 10^3 (1.8-7.8); NEUTROPHILS % (AUTO) 71 % (42-75); PLATELET COUNT 66 10^3/uL (130-400); RED CELL DISTRIBUTION WIDTH 18.3 % (10.0-14.5); WHITE BLOOD COUNT 5.8 10^3/uL (4.3-11.0)
[2019-08-03] MEDS ORDERED: MEROPENEM 500 MG VIAL (MERREM) IV ONE ×2 (04:19→08:10)
[2019-08-03] MEDS ORDERED: WATER (STERILE) FOR INJECTION 10 ML ONE ×2 (04:19→08:11)
[2019-08-03] MEDS: MEROPENEM 500 MG/SWFI 10 ML IV PUSH IV SCH ×4 (04:25→08:17)
[2019-08-03 04:36] LABS: BUN/CREATININE RATIO 21; CALCIUM 7.1 MG/DL (8.5-10.1); CARBON DIOXIDE 25 MMOL/L (21-32); CHLORIDE 98 MMOL/L (98-107); CREATININE SERUM 0.56 MG/DL (0.60-1.30); GFR ESTIMATED > 60; GLUCOSE 86 MG/DL (70-105); MAGNESIUM 1.7 MG/DL (1.6-2.4); PHOSPHORUS 3.8 MG/DL (2.3-4.7); POTASSIUM 4.5 MMOL/L (3.6-5.0); SODIUM 131 MMOL/L (135-145)
[2019-08-03] MEDS: ONDANSETRON 4 MG/2 ML (SDV) Z0FRAN IV PRN (06:15)
[2019-08-03] MEDS: KCL 20 MEQ TAB (K-DUR) PO SCH ×2 (06:22→06:23)
[2019-08-03] MEDS: inSUlin ASPART (NovoLOG) 1 UNIT/0.01 ML (CHARGE PER UNIT) SC SCH ×4 (06:24→20:46)
--- NOTE | 2019-08-03 06:24 | NUR ---
DR. GAMA PERFORMED THORACENTESIS AT BEDSIDE. PATIENT C/O NAUSEA DURING, NO OTHER COMPLAINTS AT THIS TIME.
--- NOTE | 2019-08-03 06:40 | Pulmonary Progress Note ---
Subjective Time Seen by a Provider: 07:26 Subjective/Events-last exam complains of nausea, denies abdominal pain Sepsis Event Evaluation Height, Weight, BMI Height: '" Weight: lbs. oz. kg; 21.00 BMI Method:Estimated Focused Exam Lactate Level 07/31/19 12:16: Lactic Acid Level 2.70*H 07/31/19 14:21: Lactic Acid Level 2.20*H 08/01/19 07:27: Lactic Acid Level 1.73 Time of Focused Exam: 18:46 Exam Exam Vital Signs Date Time Temp Pulse Resp B/P (MAP) Pulse Ox O2 Delivery O2 Flow Rate FiO2 08/03/19 04:11 97 Nasal Cannula 1.00 08/03/19 04:10 36.1 67 18 165/54 (91) 96 Nasal Cannula 1.00 08/03/19 01:40 36.4 64 20 106/48 95 Nasal Cannula 1.00 08/03/19 01:00 70 08/03/19 00:00 97 Nasal Cannula 1.00 08/02/19 23:52 36.3 70 20 119/50 (73) 98 Nasal Cannula 1.00 08/02/19 22:42 36.3 71 20 115/51 97 Nasal Cannula 2.00 08/02/19 22:27 36.2 71 20 106/51 98 Nasal Cannula 2.00 08/02/19 21:06 99 Room Air 08/02/19 20:12 36.4 08/02/19 20:00 93 Nasal Cannula 3.00 08/02/19 19:53 36.4 08/02/19 19:00 Nasal Cannula 3 08/02/19 19:00 89 08/02/19 18:50 37.1 16 104/48 (66) 98 Nasal Cannula 3 08/02/19 18:40 Nasal Cannula 3 08/02/19 18:40 16 116/54 (74) 98 Nasal Cannula 3 08/02/19 18:30 16 125/43 (70) 98 Nasal Cannula 3 08/02/19 18:25 OxyMask 3 08/02/19 18:20 16 119/47 (71) 100 Nasal Cannula 3 08/02/19 18:10 OxyMask 3 08/02/19 18:10 16 119/51 (73) 100 OxyMask 08/02/19 18:00 16 101/48 (65) 100 OxyMask 3 08/02/19 17:55 OxyMask 10 08/02/19 17:50 16 101/48 (65) 100 OxyMask 3 08/02/19 17:40 16 108/46 (66) 100 OxyMask 10 08/02/19 17:40 OxyMask 10 08/02/19 17:32 OxyMask 10 08/02/19 17:32 37.3 16 108/45 (66) 98 OxyMask 10 08/02/19 16:00 93 Room Air 08/02/19 16:00 38.4 98 18 100/45 (63) 99 08/02/19 13:00 98 08/02/19 12:00 93 Room Air 08/02/19 12:00 86 25 148/53 (84) 97 Room Air 08/02/19 11:28 37.8 08/02/19 10:16 99 Room Air 08/02/19 08:00 73 37 100 Room Air 08/02/19 08:00 93 Room Air 08/02/19 07:00 76 I & O 08/03/19 07:00 Intake Total 1370 ml Output Total 700 ml Balance 670 ml Height & Weight Height: '" Weight: lbs. oz. kg; 21.00 BMI Method:Estimated General Appearance: WD/WN, Anxious, Chronically ill, Mild Distress HEENT: PERRL/EOMI, Pharynx Normal Neck: Full Range of Motion, Normal Inspection, Supple Respiratory: Normal Breath Sounds, No Accessory Muscle Use, No Respiratory Distress, Decreased Breath Sounds Cardiovascular: Regular Rate, Rhythm, No Murmur Capillary Refill: Less Than 3 Seconds Gastrointestinal: normal bowel sounds, non tender, soft Extremity: Normal Capillary Refill, Normal Inspection, Normal Range of Motion Neurologic/Psychiatric: Alert, Oriented x3 Skin: Normal Color, Warm/Dry Lymphatic: Axilla Node Tender (L) Results Lab Laboratory Tests 08/01/19 07:27 08/02/19 03:45 08/03/19 04:06 Assessment/Plan Assessment/Plan UTI with sepsis and PNA - Merrem -Repeat UA - urine is very dark and concentrated -IVF currently at 150 -Hernandez cultures reviewed -MRSA swab neg Pulmonary edema with bilateral pleural effusions - improving with lasix -S/p right thoracentesis 950cc drained. -CT chest reviewed -Check Echo Hyperbilirubinemai -Check Abd US Mild hypotension with decreased and concentrated UO -LR 150 Metabolic encephalopathy -Serge worse during fever's -LP would be risky secondary to thrombocytopenia Anemia -Transfuse another 1 unit PRBC Metabolic lactic acid -Hold lasix Lung nodule -Will need out pt serial chest cts Fever of unknown origin Possible lymphoma s/p axillary node bx -Cytology pending Thombocytopenia Mild anemia -s/p 1 unit PRBC -Check occult stool - was positive last hospitalization -Pt is colonoscopy on Friday in [place] Connelly DO Aug 03, 2019 06:40 POS
[2019-08-03 06:58] LABS: ALANINE AMINOTRANSFERASE 10 U/L (0-55); ALBUMIN 1.6 GM/DL (3.2-4.5); ALKALINE PHOSPHATASE 113 U/L (40-136); BILIRUBIN,TOTAL 2.3 MG/DL (0.1-1.0); TOTAL PROTEIN 4.2 GM/DL (6.4-8.2)
[2019-08-03 07:05] LABS: BILIRUBIN,URINE NEGATIVE (NEGATIVE); CLARITY,URINE SL CLOUDY; COLOR,URINE RED; GLUCOSE, URINE (UA) TRACE (NEGATIVE); KETONES,URINE 1+ (NEGATIVE); LEUKOCYTE ESTERASE ,URINE 2+ (NEGATIVE); NITRITE,URINE POSITIVE (NEGATIVE); PROTEIN,URINE 3+ (NEGATIVE)
[2019-08-03] MEDS: NS IV 500 ML 500 ML IV SCH ×9 (07:07→08:19)
[2019-08-03 07:09] LABS: ALBUMIN,BODY FLUID 0.6 G/DL; AMYLASE,BODY FLUID 8 U/L; BODY FLUID TRIGLYCERIDES 13 MG/DL; LDH,BODY FLUID 289 U/L; TOTAL PROTEIN,BODY FLUID 0.9 G/DL
[2019-08-03 07:15] LABS: GLUCOSE,BODY FLUID 97 MG/DL
[2019-08-03 07:21] LABS: AMORPHOUS SEDIMENT,UR FEW AMOR PHOSPHATE /LPF; BACTERIA,URINE MODERATE /HPF; CALCIUM OXALATE CRYSTALS,UR FEW /LPF; WBC,URINE 50-100 /HPF; YEAST,URINE MODERATE /HPF
--- NOTE | 2019-08-03 07:30 | Pulmonary Procedures ---
Pulmonary Procedures Date of Procedure Date of Service: Aug 03, 2019 Procedure: US guided complex thoracentesis Preop DX: bilateral R > L pleural effusion post op DX: Same 950cc of yellow fluid obtained Complications: None After informed consent obtained US was used to localize pleural fluid. Pt has [bilateral R>L pleural effusions. Skin was anesthetized at approximately the 10th ICS posterior axillary line. Thoracentesis needle was advanced through the 10th ICS posterior axillary line. Needle was removed and catheter left in place.950cc of yellow fluid obtained using vacuum bottles. Catheter was then removed. Pt tolerated procedure well. No complications noted. [place] GAMA DO Aug 03, 2019 07:30 POS
[2019-08-03 08:00] VITALS: BP 159/58
--- NOTE | 2019-08-03 08:01 | Diagnostic Imaging Report ---
INDICATION: Severe sepsis, pneumonia. TECHNIQUE: Single view chest 4:39 AM. CORRELATION STUDY: 08/02/2019 FINDINGS: Right-sided central line tip projects over the high right atrium. Heart size enlarged with vasculature increased from prior study. Scattered pulmonary parenchymal densities at the mid and lower lung cortez along with bilateral pleural effusions overall appear increased. IMPRESSION: 1. Combination of infiltrates and effusion at the mid and lower lung cortez are overall adversely changed from prior study. Overall appears to be increasing vascular congestion as well. Dictated by: Dictated on workstation # [id number]
[2019-08-03] MEDS: PANTOPRAZOLE 40 MG (PROTONIX) VIAL IV SCH (08:17)
[2019-08-03] MEDS: RT-ALBUTEROL/IPRATROPIUM 3 ML (DUONEB) VIAL INH SCH ×4 (08:19→20:05)
--- NOTE | 2019-08-03 08:19 | Anesthesia-General Post-Op ---
General Patient Condition Mental Status/LOC: Same as Preop Cardiovascular: Satisfactory Nausea/Vomiting: Absent Respiratory: Satisfactory Pain: Controlled Complications: Absent Post Op Complications Complications None Follow Up Care/Instructions Patient Instructions None needed. Anesthesia/Patient Condition Patient Condition Patient is doing well, no complaints, stable vital signs, no apparent adverse anesthesia problems. No complications reported per nursing. D/C home per [facility] Criteria: Yes EDUARDO WARD CRNA Aug 03, 2019 08:19 POS
[2019-08-03] MEDS: FLECAINIDE 100 MG (TAMBOCOR) TAB PO SCH ×2 (08:20→20:46)
[2019-08-03] MEDS: CARVEDILOL 6.25 MG (COREG) TAB PO SCH ×2 (08:20→20:46)
[2019-08-03] MEDS: ACETAMINOPHEN 650 MG SUPP (TYLENOL) PR PRN (08:21)
[2019-08-03 08:33] LABS: BODY FLUID APPEARENCE SLT CLDY; BODY FLUID COLOR YELLOW; BODY FLUID RBC COUNT 185 /uL; BODY FLUID SOURCE PLEURAL; BODY FLUID WBC TOTAL COUNT 60 /uL
--- NOTE | 2019-08-03 09:07 | Progress Note - Hospitalist ---
Subjective HPI/CC On Admission Date Seen by Provider: Aug 03, 2019 Time Seen by Provider: 09:03 fever, tachycardia, and hypotension Subjective/Events-last exam Pt sleeping soundly in bed. Eyes open to verbal stimuli but quickly back to sleep. S/p thoracentesis this AM. Focused Exam Lactate Level 07/31/19 12:16: Lactic Acid Level 2.70*H 07/31/19 14:21: Lactic Acid Level 2.20*H 08/01/19 07:27: Lactic Acid Level 1.73 Time of Focused Exam: 18:46 Objective Exam Vital Signs Vital Signs Date Time Temp Pulse Resp B/P (MAP) Pulse Ox O2 Delivery O2 Flow Rate FiO2 08/03/19 08:43 93 Nasal Cannula 4.00 08/03/19 08:21 38.2 08/03/19 08:00 95 16 159/58 (91) 07/29/19 10:46 28 Capillary Refill : Less Than 3 SecondsLess Than 3 Seconds General Appearance: Chronically ill, Thin Respiratory: Lungs Clear, No Accessory Muscle Use, No Respiratory Distress Cardiovascular: Regular Rate, Rhythm, No Murmur Gastrointestinal: Normal Bowel Sounds, Non Tender, Soft Neurologic/Psychiatric: Other (sleeping but arouses to verbal stimuli) Results/Procedures Lab Laboratory Tests 08/03/19 04:06 Patient resulted labs reviewed. Imaging: Reviewed Imaging Report Assessment/Plan Assessment and Plan Assess & Plan/Chief Complaint Fever of unknown origin Axillary lymphadenopathy Splenomegaly Lactic Acidosis, resolved -Intermittent fever- will trial off antibiotics and monitor closely -Previously worked up for fever at , [facility], and [facility] -CT Chest/Abdomen/Pelvis revealed large left axillary lymph node, moderate splenomegaly -Oncology consulted, recommends surgery perform excisional biopsy -General surgery consulted s/p biopsy on 08/02 - RVP pending - Thoracentesis done this AM and sent for cytology and cultures Severe sepsis HCAP Bilateral pleural effusions -Completed Merrem- now off antibiotics -Cultures with no growth to date -Pulm following -Thoracentesis today as above Hypokalemia Hypomagnesemia Hypophosphatemia -Monitor and replace as needed Atrial fibrillation -Continue Flecainide and Coreg -Cardiology following -No anticoagulation due to recurrent GI bleeding and anemia Recurrent GI bleeding Chronic blood loss anemia -Hgb stable, up appropriately with transufsion yesterday - s/p 2u transfusion Thrombocytopenia -Stable. ?splenomegaly -Continue to monitor DVT Prophylaxis: held due to recurrent GI bleeding Clinical Quality Measures DVT/VTE Risk/Contraindication: Risk Factor Score Per Nursin RFS Level Per Nursing on Admit: 4+=Very High Contraindications-Pharm: Other *list below* Other: Pt receiving blood transfusion, possible bleeding so no order for medication indicated. Pt does have SCD's ordered and on. ODELL JOHNSON MD Aug 03, 2019 09:07 POS
[2019-08-03 09:32] LABS: BF OTHER CELLS 7 %; LYMPHOCYTES,BODY FLUID 73 %
--- NOTE | 2019-08-03 10:28 | NUR ---
RD ASSESSMENT PMHx: afib; HTN; GERD; RA; hiatal hernia; DM PT INTERACTION: Pt was semi-awake and pleasant during nutrition assessment for LOS. Note pt at bedside. Pt states current appetite is not good, and has been for some time. Note pt avg PO intake is 47% x3d, per chart review. states that she has been eating more recently and that this amount is typical for her. Pt [place] and has no restrictions on her diet there. states pt has some difficulties occasionally with swallowing fluids. Pt states no recent issues with nausea/vomiting at this time. Pt states some issues with constipation, and cannot recall the last time she had a BM. Note last BM was 07/28, and pt not currently on bowel regimen at this time. states some recent wt gains, but attributes it to fluid buildup. Note unable to determine recent wt hx and pt had thoracentesis procedure this AM, per chart review. states pt's current DM management is pretty good, "far as I can tell." ABNORMAL NUTRITION-RELATED LAB VALUES LOW: Na 131; cr 0.56; Ca 7.1; Pro 4.2; alb 1.6 HIGH: bili 2.3; AST 54 Est. kcal needs: 8978-3950 kcal | 25-30 kcal/kg Est. Pro needs: 78-98 g Pro | 1.2-1.5 g Pro/kg PES STATEMENT: Inadequate oral intake (NI-2.1) related to loss of appetite | constipation as evidenced by pt () interview | avg PO intake of 47% x3d INTERVENTION: Continue with current diet order of DYS2 Mechanically Altered Diet. Add Ensure Clear (vary) to meals BID. Provides 240 kcal and 8 g Pro per serving. Will continue to follow and reassess as pt needs and status change. MONITOR/EVALUATE: PO Intake; Plan of Care; Hydration Status; Weight Status; Lab Values Kosta Rodriguez, MS, RD, LD
--- NOTE | 2019-08-03 10:47 | Progress Note - Cardiology ---
Cardiology SOAP Progress Note Subjective: Lying in bed. Spouse at the bedside. She states she feels unwell and weak. Per nursing she had a fever this morning and was very lethargic at that time. She has had a thoracentesis earlier this morning as well. Objective: I&O/Vital Signs 08/05/19 08/05/19 08/05/19 08/05/19 01:00 01:28 01:45 04:00 Temp 36.4 36.3 Pulse 70 68 75 Resp 18 18 B/P (MAP) 128/68 130/60 (83) Pulse Ox 100 100 100 O2 Delivery Venturi Mask Vapotherm Vapotherm O2 Flow Rate 35.00 35.00 3.00 60.00 FiO2 4 80 08/05/19 08/05/19 08/05/19 08/05/19 07:00 08:00 09:26 11:20 Temp 37.0 37.4 Pulse 77 78 76 Resp 18 20 B/P (MAP) 107/56 (73) 137/70 Pulse Ox 97 99 99 O2 Delivery Vapotherm Vapotherm Vapotherm O2 Flow Rate 3.50 20.00 80.00 FiO2 50 40 08/05/19 08/05/19 08/05/19 11:35 12:00 12:11 Temp 37.4 37.4 Pulse 86 76 85 Resp 20 20 B/P (MAP) 144/67 137/70 (92) Pulse Ox 99 97 O2 Delivery Vapotherm Vapotherm O2 Flow Rate 20.00 2.00 40.00 FiO2 40 08/04/19 23:59 Intake Total 370 ml Output Total 200 ml Balance 170 ml Constitutional: AAO x 3, other (thin, frail) Respiratory: No accessory muscle use, No respiratory distress; chest expansion is symmetric, chest is bilaterally symmetric, other (fair air entry with poor inspiratory effort) Cardiovascular: regular rate-rhythm; No JVD; S1 and S2 Gastrointestional: No tender; soft, audible bowel sounds (hypoactive) Extremities: other (mild to mod bilat LE and UE swelling) Neurologic/Psychiatric: grossly intact (moves extremities) Skin: warm/dry, other (diffuse bruising to upper extremities bilat) Results/Procedures: Labs Laboratory Tests 08/04/19 14:01: Glucometer 83 08/04/19 14:05: Blood Gas Puncture Site LEFT RADIAL, Blood Gas Patient Temperature 37.3, Arterial Blood pH 7.49H, Arterial Blood Partial Pressure CO2 31L, Arterial Blood Partial Pressure O2 161H, Arterial Blood HCO3 23, Arterial Blood Total CO2 24.1, Arterial Blood Oxygen Saturation 100, Arterial Blood Base Excess 0.2, [place] Test POSITIVE, Blood Gas Ventilator Setting NO, Blood Gas Inspired Oxygen 50% 08/04/19 16:02: Glucometer 88 08/04/19 20:02: Glucometer 117H 08/05/19 04:50: White Blood Count 5.1, Red Blood Count 2.52L, Hemoglobin 7.4L, Hematocrit 23L, Mean Corpuscular Volume 92, Mean Corpuscular Hemoglobin 29, Mean Corpuscular Hemoglobin Concent 32, Red Cell Distribution Width 18.7H, Platelet Count 57L, Mean Platelet Volume 11.4H, Neutrophils (%) (Auto) 71, Lymphocytes (%) (Auto) 9L , Monocytes (%) (Auto) 19H, Eosinophils (%) (Auto) 0, Basophils (%) (Auto) 1, Neutrophils # (Auto) 3.6, Lymphocytes # (Auto) 0.5L, Monocytes # (Auto) 1.0, Eosinophils # (Auto) 0.0, Basophils # (Auto) 0.0, Neutrophils % (Manual) 64, Lymphocytes % (Manual) 6, Monocytes % (Manual) 12, Eosinophils % (Manual) 2, Basophils % (Manual) 0, Metamyelocytes % 1, Band Neutrophils 11, Reactive Lymphocytes 4, Toxic Granulation 2+, Polychromasia SLIGHT, Anisocytosis MODERATE, Microcytosis SLIGHT, Macrocytosis SLIGHT, Sodium Level 128L, Potassium Level 3.9, Chloride Level 96L, Carbon Dioxide Level 24, Anion Gap 8, Blood Urea Nitrogen 14, Creatinine 0.59L, Estimat Glomerular Filtration Rate > 60, BUN/Creatinine Ratio 24, Glucose Level 93, Calcium Level 7.0L, Phosphorus Level 4.1, Magnesium Level 1.6 08/05/19 10:28: Glucometer 94 Microbiology 07/29/19 Blood Culture - Final, Complete No growth 08/03/19 Gram Stain - Final, Resulted 08/03/19 Body Fluid Culture - Preliminary, Resulted No growth 07/27/19 MRSA Screen - Final, Complete MRSA not isolated 08/03/19 Urine Culture - Final, Complete YEAST Procedures NAME: ASAF TA [facility] REC#: [id number] PT STATUS: ADM IN : 1945 PHYSICIAN: DENISA ESQUIVEL MD ADMIT DATE: 07/27/19/[facility] Draft Date of Exam:08/03/19 CHEST 1 VIEW, AP/PA ONLY INDICATION: Severe sepsis, pneumonia. TECHNIQUE: Single view chest 4:39 AM. CORRELATION STUDY: 08/02/2019 FINDINGS: Right-sided central line tip projects over the high right atrium. Heart size enlarged with vasculature increased from prior study. Scattered pulmonary parenchymal densities at the mid and lower lung cortez along with bilateral pleural effusions overall appear increased. IMPRESSION: 1. Combination of infiltrates and effusion at the mid and lower lung cortez are overall adversely changed from prior study. Overall appears to be increasing vascular congestion as well. Dictated on workstation # [id number] Dict: 08/03/19 0742 Trans: 08/03/19 0759 BOB [id number] Interpreted by: SHARMAINE BOGGS DO Electronically signed by: A/P: Assessment: Severe sepsis - Medical Services managing FUO Lymphadenopathy - Med Svce and Heme/Onc managing Chronic HFpEF Severe anemia of undetermined etiology (she reports chronic anemia for which she has had multiple eval in the past with unknown cause). Stool positive for occult blood during previous admission - Dr. Payne of Hematology/Oncology previously consulted Thrombocytopenia, managed by the Med Svce SSS. Intermittent wandering atrial pacemaker during this admission. H/o PAF that has chronically been treated with flecainide (pt states years, but doesn't who started it when). OAC has been withheld d/t because of severe anemia of undetermined etiology (per recs of hospitalist during previous admission earlier this month) Echo of 07/11/19: LVEF 60-65%, mild MR, mod AI, mild to mod TR, grade 2 mccullough dysfunction, RVSP 47 mmHg MPI of Jul 13, 2019 showed no evidence of ischemia/infarction; LVEF 67% Plan: * Management has been and remains very complex due to multiple comorbidities that are outlined above * Sources of anemia and fever remain undiagnosed. This is being worked up and treated by the Hospitalist and Heme/Onc services * Continue Flecainide (which she has tolerated well for years, according to her) to prevent A Fib because she is not a suitable candidate for OAC * Monitor labs * S/P thoracentesis * I reviewed her CV issues with her and her spouse again today and answered questions * Poor prognosis DAVINA TRONCOSO Aug 03, 2019 10:47 POS
--- NOTE | 2019-08-03 11:25 | Progress Note ---
Subjective Date Seen by a Provider: Aug 03, 2019 Time Seen by a Provider: 10:00 Subjective/Events-last exam doing better today. more awake/alert. tolerating diet. u/s abd shows enlarged spleen. no obvious other lymphadenopathy noted. Focused Exam Lactate Level 07/31/19 12:16: Lactic Acid Level 2.70*H 07/31/19 14:21: Lactic Acid Level 2.20*H 08/01/19 07:27: Lactic Acid Level 1.73 Time of Focused Exam: 18:46 Objective Exam Vital Signs Date Time Temp Pulse Resp B/P (MAP) Pulse Ox O2 Delivery O2 Flow Rate FiO2 08/03/19 08:51 37.5 08/03/19 08:43 93 Nasal Cannula 4.00 08/03/19 08:21 38.2 08/03/19 08:00 38.2 95 16 159/58 (91) 90 Nasal Cannula 1.00 08/03/19 08:00 97 Nasal Cannula 3.00 08/03/19 07:00 81 08/03/19 04:11 97 Nasal Cannula 1.00 08/03/19 04:10 36.1 67 18 165/54 (91) 96 Nasal Cannula 1.00 08/03/19 01:40 36.4 64 20 106/48 95 Nasal Cannula 1.00 08/03/19 01:00 70 08/03/19 00:00 97 Nasal Cannula 1.00 08/02/19 23:52 36.3 70 20 119/50 (73) 98 Nasal Cannula 1.00 08/02/19 22:42 36.3 71 20 115/51 97 Nasal Cannula 2.00 08/02/19 22:27 36.2 71 20 106/51 98 Nasal Cannula 2.00 08/02/19 21:06 99 Room Air 08/02/19 20:12 36.4 08/02/19 20:00 93 Nasal Cannula 3.00 08/02/19 19:53 36.4 08/02/19 19:00 Nasal Cannula 3 08/02/19 19:00 89 08/02/19 18:50 37.1 16 104/48 (66) 98 Nasal Cannula 3 08/02/19 18:40 Nasal Cannula 3 08/02/19 18:40 16 116/54 (74) 98 Nasal Cannula 3 08/02/19 18:30 16 125/43 (70) 98 Nasal Cannula 3 08/02/19 18:25 OxyMask 3 08/02/19 18:20 16 119/47 (71) 100 Nasal Cannula 3 08/02/19 18:10 OxyMask 3 08/02/19 18:10 16 119/51 (73) 100 OxyMask 08/02/19 18:00 16 101/48 (65) 100 OxyMask 3 08/02/19 17:55 OxyMask 10 08/02/19 17:50 16 101/48 (65) 100 OxyMask 3 08/02/19 17:40 16 108/46 (66) 100 OxyMask 10 08/02/19 17:40 OxyMask 10 08/02/19 17:32 OxyMask 10 08/02/19 17:32 37.3 16 108/45 (66) 98 OxyMask 10 08/02/19 16:00 93 Room Air 08/02/19 16:00 38.4 98 18 100/45 (63) 99 08/02/19 13:00 98 08/02/19 12:00 93 Room Air 08/02/19 12:00 86 25 148/53 (84) 97 Room Air 08/02/19 11:28 37.8 I & O 08/03/19 07:00 Intake Total 1370 ml Output Total 700 ml Balance 670 ml Capillary Refill : Less Than 3 SecondsLess Than 3 Seconds General Appearance: No Apparent Distress HEENT: PERRL/EOMI Neck: Full Range of Motion Respiratory: Chest Non Tender, Decreased Breath Sounds Cardiovascular: Regular Rate, Rhythm Gastrointestinal: normal bowel sounds, non tender, soft Extremity: Normal Capillary Refill Neurologic/Psychiatric: Alert, Oriented x3 Skin: Normal Color Results Lab Laboratory Tests 08/02/19 11:28: Glucometer 92 08/02/19 17:36: Glucometer 92 08/02/19 18:15: 08/02/19 23:33: Glucometer 99 08/03/19 04:06: White Blood Count 5.8, Red Blood Count 2.64L, Hemoglobin 7.7L, Hematocrit 24L, Mean Corpuscular Volume 91, Mean Corpuscular Hemoglobin 29, Mean Corpuscular Hemoglobin Concent 32, Red Cell Distribution Width 18.3H, Platelet Count 66L, Mean Platelet Volume 10.4, Neutrophils (%) (Auto) 71, Lymphocytes (%) (Auto) 12, Monocytes (%) (Auto) 16H, Eosinophils (%) (Auto) 1, Basophils (%) (Auto) 1, Neutrophils # (Auto) 4.1, Lymphocytes # (Auto) 0.7L, Monocytes # (Auto) 0.9, Eosinophils # (Auto) 0.0, Basophils # (Auto) 0.0, Sodium Level 131L, Potassium Level 4.5, Chloride Level 98, Carbon Dioxide Level 25, Anion Gap 8, Blood Urea Nitrogen 12, Creatinine 0.56L, Estimat Glomerular Filtration Rate > 60, BUN/Creatinine Ratio 21, Glucose Level 86, Calcium Level 7.1L, Corrected Calcium 9.0, Phosphorus Level 3.8, Magnesium Level 1.7, Total Bilirubin 2.3H, Aspartate Amino Transf (AST/SGOT) 54H, Alanine Aminotransferase (ALT/SGPT) 10, Alkaline Phosphatase 113, Total Protein 4.2L, Albumin 1.6L 08/03/19 06:32: Body Fluid Source PLEURAL, Body Fluid Color YELLOW, Body Fluid Appearance SLT CLDY, Body Fluid pH 7.0, Body Fluid WBC 60, Body Fluid RBC 185, Body Fluid Polynuclear WBCs 17, Body Fluid Mononuclear WBCs 3, Body Fluid Lymphocytes 73, Body Fluid Other Cells 7, Body Fluid Glucose 97, Body Fluid Total Protein 0.9, Body Fluid Albumin 0.6, Body Fluid Lactate Dehydrogenase 289, Body Fluid Amylase 8, Body Fluid Triglycerides 13 08/03/19 06:58: Urine Color REDH, Urine Clarity SL CLOUDY, Urine pH 7.0, Urine Specific [place] 1.015L, Urine Protein 3+H, Urine Glucose (UA) TRACEH, Urine Ketones 1+H, Urine Nitrite POSITIVE, Urine Bilirubin NEGATIVE, Urine Urobilinogen >=8.0, Urine Leukocyte Esterase 2+H, Urine RBC (Auto) 3+H, Urine RBC 10-25H, Urine WBC 50- 100H, Urine Squamous Epithelial Cells 2-5, Urine Crystals PRESENTH, Urine Calcium Oxalate Crystals FEWH, Urine Amorphous Sediment FEW HAJA PHOSPHATEH, Urine Bacteria MODERATEH, Urine Casts PRESENT, Urine Granular Casts 2-5H, Urine Mucus NEGATIVE, Urine Yeast MODERATEH, Urine Culture Indicated YES Microbiology 07/29/19 Blood Culture - Preliminary, Resulted No growth 07/27/19 MRSA Screen - Final, Complete MRSA not isolated 07/27/19 Urine Culture - Final, Complete NO GROWTH Assessment/Plan Assessment/Plan Assess & Plan/Chief Complaint fever, night sweats, weight loss, left axillary adenopathy s/p superficial lymphadenectomy for bulky disease. await path report. supportive measures for now. Clinical Quality Measures DVT/VTE Risk/Contraindication: Risk Factor Score Per Nursin RFS Level Per Nursing on Admit: 4+=Very High Contraindications-Pharm: Other *list below* Other: Pt receiving blood transfusion, possible bleeding so no order for medication indicated. Pt does have SCD's ordered and on. ELIA RILEY MD Aug 03, 2019 11:25 POS
--- NOTE | 2019-08-03 11:38 | Diagnostic Imaging Report ---
INDICATION: Hyperbilirubinemia. TECHNIQUE: Multiple real-time saenz scale sonographic images of the abdomen. CORRELATION STUDY: None FINDINGS: LIVER: Normal echotexture within the visualized portions of the liver. There is normal, hepatopedal direction of flow within the main portal vein. Borderline enlarged, 19 cm. GALLBLADDER: Cholecystectomy COMMON BILE DUCT: Nondilated at 5 mm. PANCREAS: Limited in visualization. The visualized portions appearing unremarkable. SPLEEN: Enlarged 15 x 8.8 x 7.3 cm. ABDOMINAL AORTA: Unremarkable. INFERIOR VENA CAVA: Unremarkable as visualized. RIGHT KIDNEY: 11.1 x 3.3 x 6.0 cm. Unremarkable. LEFT KIDNEY: 12.6 x 4.7 x 5.0 cm. Unremarkable. OTHER: Is still note made of bilateral pleural effusions. IMPRESSION: 1. Borderline hepatomegaly. 2. Splenomegaly. 3. Bilateral pleural effusions. Dictated by: Dictated on workstation # [id number]
[2019-08-03 12:00] VITALS: BP 94/56
[2019-08-03 15:27] VITALS: BP 101/53
--- NOTE | 2019-08-03 17:48 | Progress Note - Cardiology ---
Cardiology SOAP Progress Note Subjective: Gen weakness Shortness of breath with mild exertion No cp or palp Appetite had been poor but is better today No N/V today Objective: I&O/Vital Signs 08/03/19 08/03/19 08/03/19 08/03/19 07:00 08:00 08:00 08:21 Temp 38.2 38.2 Pulse 81 95 Resp 16 B/P (MAP) 159/58 (91) Pulse Ox 97 90 O2 Delivery Nasal Cannula Nasal Cannula O2 Flow Rate 3.00 1.00 08/03/19 08/03/19 08/03/19 08/03/19 08:43 08:51 10:15 12:00 Temp 37.5 37.4 Pulse Ox 93 97 O2 Delivery Nasal Cannula Nasal Cannula O2 Flow Rate 4.00 3.00 08/03/19 08/03/19 08/03/19 08/03/19 12:00 13:00 15:27 15:50 Temp 36.8 36.4 Pulse 79 80 76 Resp 18 16 B/P (MAP) 94/56 (69) 101/53 (69) Pulse Ox 97 98 98 O2 Delivery Nasal Cannula High Flow N/C Nasal Cannula O2 Flow Rate 1.00 5.00 4.00 08/03/19 16:00 Pulse Ox 97 O2 Delivery Nasal Cannula O2 Flow Rate 3.00 08/03/19 00:00 Intake Total 1220 ml Output Total 385 ml Balance 835 ml Constitutional: AAO x 3, other (thin, frail) Respiratory: No accessory muscle use, No respiratory distress; chest expansion is symmetric, chest is bilaterally symmetric, other (fair air entry with poor inspiratory effort) Cardiovascular: regular rate-rhythm; No JVD; S1 and S2 Gastrointestional: No tender; soft, audible bowel sounds (hypoactive) Extremities: other (mild to mod bilat LE and UE swelling) Neurologic/Psychiatric: grossly intact (moves extremities) Skin: warm/dry, other (diffuse bruising to upper extremities bilat) Results/Procedures: Labs Laboratory Tests 08/02/19 18:15: 08/02/19 23:33: Glucometer 99 08/03/19 04:06: White Blood Count 5.8, Red Blood Count 2.64L, Hemoglobin 7.7L, Hematocrit 24L, Mean Corpuscular Volume 91, Mean Corpuscular Hemoglobin 29, Mean Corpuscular Hemoglobin Concent 32, Red Cell Distribution Width 18.3H, Platelet Count 66L, Mean Platelet Volume 10.4, Neutrophils (%) (Auto) 71, Lymphocytes (%) (Auto) 12, Monocytes (%) (Auto) 16H, Eosinophils (%) (Auto) 1, Basophils (%) (Auto) 1, Neutrophils # (Auto) 4.1, Lymphocytes # (Auto) 0.7L, Monocytes # (Auto) 0.9, Eosinophils # (Auto) 0.0, Basophils # (Auto) 0.0, Sodium Level 131L, Potassium Level 4.5, Chloride Level 98, Carbon Dioxide Level 25, Anion Gap 8, Blood Urea Nitrogen 12, Creatinine 0.56L, Estimat Glomerular Filtration Rate > 60, BUN/Creatinine Ratio 21, Glucose Level 86, Calcium Level 7.1L, Corrected Calcium 9.0, Phosphorus Level 3.8, Magnesium Level 1.7, Total Bilirubin 2.3H, Aspartate Amino Transf (AST/SGOT) 54H, Alanine Aminotransferase (ALT/SGPT) 10, Alkaline Phosphatase 113, Total Protein 4.2L, Albumin 1.6L 08/03/19 06:32: Body Fluid Source PLEURAL, Body Fluid Color YELLOW, Body Fluid Appearance SLT CLDY, Body Fluid pH 7.0, Body Fluid WBC 60, Body Fluid RBC 185, Body Fluid Polynuclear WBCs 17, Body Fluid Mononuclear WBCs 3, Body Fluid Lymphocytes 73, Body Fluid Other Cells 7, Body Fluid Glucose 97, Body Fluid Total Protein 0.9, Body Fluid Albumin 0.6, Body Fluid Lactate Dehydrogenase 289, Body Fluid Amylase 8, Body Fluid Triglycerides 13 08/03/19 06:58: Urine Color REDH, Urine Clarity SL CLOUDY, Urine pH 7.0, Urine Specific [place] 1.015L, Urine Protein 3+H, Urine Glucose (UA) TRACEH, Urine Ketones 1+H, Urine Nitrite POSITIVE, Urine Bilirubin NEGATIVE, Urine Urobilinogen >=8.0, Urine Leukocyte Esterase 2+H, Urine RBC (Auto) 3+H, Urine RBC 10-25H, Urine WBC 50- 100H, Urine Squamous Epithelial Cells 2-5, Urine Crystals PRESENTH, Urine Ca lcium Oxalate Crystals FEWH, Urine Amorphous Sediment FEW HAJA PHOSPHATEH, Urine Bacteria MODERATEH, Urine Casts PRESENT, Urine Granular Casts 2-5H, Urine Mucus NEGATIVE, Urine Yeast MODERATEH, Urine Culture Indicated YES 08/03/19 11:04: Glucometer 90 08/03/19 15:54: Glucometer 136H Microbiology 07/29/19 Blood Culture - Preliminary, Resulted No growth 07/27/19 MRSA Screen - Final, Complete MRSA not isolated 07/27/19 Urine Culture - Final, Complete NO GROWTH Laboratory Tests 08/02/19 03:45 08/03/19 04:06 A/P: Assessment: Severe sepsis - Medical Services managing FUO Lymphadenopathy - Med Svce and Heme/Onc managing Chronic HFpEF Severe anemia of undetermined etiology (she reports chronic anemia for which she has had multiple eval in the past with unknown cause). Stool positive for occult blood during previous admission - Dr. Payne of Hematology/Oncology previously consulted Thrombocytopenia, managed by the Med Svce SSS. Intermittent wandering atrial pacemaker during this admission. H/o PAF that has chronically been treated with flecainide (pt states years, but doesn't who started it when). OAC has been withheld d/t because of severe anemia of undetermined etiology (per recs of hospitalist during previous admission earlier this month) Echo of 07/11/19: LVEF 60-65%, mild MR, mod AI, mild to mod TR, grade 2 mccullough dy sfunction, RVSP 47 mmHg MPI of Jul 13, 2019 showed no evidence of ischemia/infarction; LVEF 67% Plan: * Complex management * Sources of anemia and fever remain undiagnosed. This is being worked up and treated by the Hospitalist and Heme/Onc services * Continue Flecainide (which she has tolerated well for years, according to her) to prevent A Fib because she is not a suitable candidate for OAC * Monitor labs * Guraded prognosis ANA FINLEY MD FACP FAC CCDS Aug 03, 2019 17:48 POS
[2019-08-03] MEDS: LACTOBACILLUS ACIDOPHILUS (PROBIOTIC) CAPSULE PO SCH (18:32)
[2019-08-03 19:04] VITALS: BP 102/53
[2019-08-04] VITALS (9 sets, daily range): BP systolic 95–128; BP diastolic 49–70
[2019-08-04] MEDS: RT-ALBUTEROL/IPRATROPIUM 3 ML (DUONEB) VIAL INH SCH ×4 (02:23→21:49)
[2019-08-04 03:39] LABS: BASOPHILS % (AUTO) 0 % (0-10); EOSINOPHILS % (AUTO) 0 % (0-10); HEMATOCRIT 23 % (35-52); HEMOGLOBIN 7.4 G/DL (11.5-16.0); LYMPHOCYTES # (AUTO) 0.5 X 10^3 (1.0-4.0); LYMPHOCYTES % (AUTO) 10 % (12-44); MEAN CORPUSCULAR HEMOGLOBIN 29 PG (25-34); MEAN CORPUSCULAR HGB CONC 32 G/DL (32-36); MEAN CORPUSCULAR VOLUME 91 FL (80-99); MEAN PLATELET VOLUME 10.9 FL (7.4-10.4); MONOCYTES # (AUTO) 0.8 X 10^3 (0.0-1.0); MONOCYTES % (AUTO) 16 % (0-12); NEUTROPHILS # (AUTO) 3.6 X 10^3 (1.8-7.8); NEUTROPHILS % (AUTO) 73 % (42-75); PLATELET COUNT 70 10^3/uL (130-400); RED CELL DISTRIBUTION WIDTH 18.9 % (10.0-14.5); WHITE BLOOD COUNT 4.9 10^3/uL (4.3-11.0)
[2019-08-04 03:57] LABS: BUN/CREATININE RATIO 25; CALCIUM 7.2 MG/DL (8.5-10.1); CARBON DIOXIDE 22 MMOL/L (21-32); CHLORIDE 98 MMOL/L (98-107); CREATININE SERUM 0.57 MG/DL (0.60-1.30); GFR ESTIMATED > 60; GLUCOSE 100 MG/DL (70-105); MAGNESIUM 1.5 MG/DL (1.6-2.4); PHOSPHORUS 3.3 MG/DL (2.3-4.7); POTASSIUM 4.4 MMOL/L (3.6-5.0); SODIUM 130 MMOL/L (135-145)
--- NOTE | 2019-08-04 04:47 | Pulmonary Progress Note ---
Subjective Time Seen by a Provider: 15:00 Subjective/Events-last exam Called to bedside stat by Dr. Peralta secondary to pt's worsening distress. Family at bedside. Sepsis Event Evaluation Height, Weight, BMI Height: '" Weight: lbs. oz. kg; 21.00 BMI Method:Estimated Focused Exam Lactate Level 08/01/19 07:27: Lactic Acid Level 1.73 Time of Focused Exam: 18:46 Exam Exam Vital Signs Date Time Temp Pulse Resp B/P (MAP) Pulse Ox O2 Delivery O2 Flow Rate FiO2 08/04/19 04:00 37.1 78 16 116/68 (84) 96 Nasal Cannula 4.00 08/04/19 04:00 97 Nasal Cannula 3.00 08/04/19 02:23 100 Nasal Cannula 4.00 08/04/19 00:00 36.8 76 18 120/66 (84) 99 Nasal Cannula 4.00 08/04/19 00:00 97 Nasal Cannula 3.00 08/03/19 20:04 90 Nasal Cannula 4.00 08/03/19 20:00 97 Nasal Cannula 3.00 08/03/19 19:04 36.4 83 22 102/53 (69) 98 High Flow N/C 5.00 08/03/19 19:00 80 08/03/19 18:29 36.7 08/03/19 16:00 97 Nasal Cannula 3.00 08/03/19 15:50 98 Nasal Cannula 4.00 08/03/19 15:27 36.4 76 16 101/53 (69) 98 High Flow N/C 5.00 08/03/19 13:00 80 08/03/19 12:00 36.8 79 18 94/56 (69) 97 Nasal Cannula 1.00 08/03/19 12:00 97 Nasal Cannula 3.00 08/03/19 10:15 37.4 08/03/19 08:51 37.5 08/03/19 08:43 93 Nasal Cannula 4.00 08/03/19 08:21 38.2 08/03/19 08:00 38.2 95 16 159/58 (91) 90 Nasal Cannula 1.00 08/03/19 08:00 97 Nasal Cannula 3.00 08/03/19 07:00 81 I & O 08/04/19 07:00 Intake Total 3090 ml Output Total 725 ml Balance 2365 ml Height & Weight Height: '" Weight: lbs. oz. kg; 21.00 BMI Method:Estimated General Appearance: Anxious, Chronically ill, Moderate Distress, Thin HEENT: PERRL/EOMI Neck: Full Range of Motion Respiratory: Chest Non Tender, Decreased Breath Sounds Cardiovascular: Regular Rate, Rhythm Capillary Refill: Less Than 3 Seconds Gastrointestinal: normal bowel sounds, non tender, soft Extremity: Normal Capillary Refill Neurologic/Psychiatric: Alert, Oriented x3 Skin: Normal Color Lymphatic: Other (left axillary lymph node) Results Lab Laboratory Tests 08/03/19 04:06 08/04/19 03:30 Assessment/Plan Assessment/Plan Pulmonary edema -Lasix already given -Monitor -Family may choose more palliative care. UTI with sepsis and PNA - Merrem -Hernandez cultures reviewed -MRSA swab neg Pulmonary edema with bilateral pleural effusions -S/p right thoracentesis 950cc drained. -CT chest reviewed -Check Echo -Echo of 07/11/19: LVEF 60-65%, mild MR, mod AI, mild to mod TR, grade 2 mccullough dysfunction, RVSP 47 mmHg Hyperbilirubinemia - Abd US Mild hypotension with decreased and concentrated UO -LR 150 Metabolic encephalopathy -Serge worse during fever's -LP would be risky secondary to thrombocytopenia Anemia -Transfuse another 1 unit PRBC Metabolic lactic acid -Hold lasix Lung nodule -Will need out pt serial chest cts Fever of unknown origin Possible lymphoma s/p axillary node bx -Cytology pending Thombocytopenia Mild anemia -s/p 1 unit PRBC -Check occult stool - was positive last hospitalization -Pt is colonoscopy on Friday in [place] Connelly DO Aug 04, 2019 04:47 POS
[2019-08-04] MEDS: KCL 20 MEQ TAB (K-DUR) PO SCH ×2 (05:19→06:24)
[2019-08-04] MEDS: inSUlin ASPART (NovoLOG) 1 UNIT/0.01 ML (CHARGE PER UNIT) SC SCH ×4 (05:19→21:29)
[2019-08-04] MEDS: LACTATED RINGERS 1,000 ML IV SCH ×2 (05:19→08:08)
[2019-08-04] MEDS: LACTOBACILLUS ACIDOPHILUS (PROBIOTIC) CAPSULE PO SCH ×3 (06:24→18:08)
--- NOTE | 2019-08-04 08:11 | NUR ---
FAMILY TO ROOM -- FAMILY AND STAFF FOUND ONE HEARING AIDE -- OTHER STILL MISSSNG ADVISED LEAD RN -- CELL PHONE WAS FOUND
--- NOTE | 2019-08-04 08:11 | Diagnostic Imaging Report ---
INDICATION: Dyspnea, sepsis. TECHNIQUE: Single-view chest at 3:31 a.m. CORRELATION STUDY: 08/03/2019. FINDINGS: Right-sided central line tip at the high right atrium. Heart size and mediastinum are stable. Vasculature overall appears to be somewhat less congested. Scattered pulmonary parenchymal densities along with effusions, left greater than right, persisting. Findings have perhaps slightly improved. Extensive cervicothoracic spinal fixation hardware is present. IMPRESSION: 1. Overall, slight improvement in the appearance of the chest with less congestion. Continued combination of effusions along with atelectasis or infiltrate at both lung bases also appears slightly improved, left greater than right. Dictated by: Dictated on workstation # [id number]
[2019-08-04] MEDS: FLECAINIDE 100 MG (TAMBOCOR) TAB PO SCH ×4 (08:41→21:00)
[2019-08-04] MEDS: PANTOPRAZOLE 40 MG (PROTONIX) VIAL IV SCH (08:41)
[2019-08-04] MEDS: CARVEDILOL 6.25 MG (COREG) TAB PO SCH ×2 (08:42→18:45)
--- NOTE | 2019-08-04 08:51 | Progress Note - Hospitalist ---
Subjective HPI/CC On Admission Date Seen by Provider: Aug 04, 2019 Time Seen by Provider: 08:46 fever, tachycardia, and hypotension Subjective/Events-last exam Pt is sitting in bed and at first states she is feeling well and then states she is uncomfortable. Daughter at bedside and assisting with adjusting in bed. Focused Exam Time of Focused Exam: 18:46 Objective Exam Vital Signs Vital Signs Date Time Temp Pulse Resp B/P (MAP) Pulse Ox O2 Delivery O2 Flow Rate FiO2 08/04/19 04:00 37.1 78 16 116/68 (84) 96 Nasal Cannula 4.00 07/29/19 10:46 28 Capillary Refill : Less Than 3 SecondsLess Than 3 Seconds General Appearance: No Apparent Distress, Chronically ill Respiratory: Lungs Clear, No Respiratory Distress Cardiovascular: Regular Rate, Rhythm, No Murmur Neurologic/Psychiatric: Alert, Oriented x3 Results/Procedures Lab Laboratory Tests 08/04/19 03:30 Patient resulted labs reviewed. Imaging: Reviewed Imaging Report Assessment/Plan Assessment and Plan Assess & Plan/Chief Complaint Fever of unknown origin Axillary lymphadenopathy Splenomegaly Lactic Acidosis, resolved - Afebrile x24 hours- continue off antibiotics - Previously worked up for fever at , [facility], and [facility] - CT Chest/Abdomen/Pelvis revealed large left axillary lymph node, moderate splenomegaly - Oncology consulted, recommends surgery perform excisional biopsy - General surgery consulted s/p biopsy on 08/02 - RVP pending still - Thoracentesis sent for cytology and cultures Severe sepsis HCAP Bilateral pleural effusions -Completed Merrem- now off antibiotics -Cultures with no growth to date -Pulm following Hypokalemia Hypomagnesemia Hypophosphatemia -Monitor and replace as needed Atrial fibrillation -Continue Flecainide and Coreg -Cardiology following -No anticoagulation due to recurrent GI bleeding and anemia Recurrent GI bleeding Chronic blood loss anemia -Hgb stable, up appropriately with transfusion yesterday - s/p 2u transfusion Thrombocytopenia -Stable. ?splenomegaly -Continue to monitor DVT Prophylaxis: held due to recurrent GI bleeding Clinical Quality Measures DVT/VTE Risk/Contraindication: Risk Factor Score Per Nursin RFS Level Per Nursing on Admit: 4+=Very High Contraindications-Pharm: Other *list below* Other: Pt receiving blood transfusion, possible bleeding so no order for medication indicated. Pt does have SCD's ordered and on. ODELL JOHNSON MD Aug 04, 2019 08:51 POS
[2019-08-04 09:22] LABS: BILIRUBIN,INDIRECT 0.9 MG/DL; BILIRUBIN,TOTAL 1.9 MG/DL (0.1-1.0)
--- NOTE | 2019-08-04 09:25 | NUR ---
REPORT WAS CALLED TO 4TH FLOOR RIVERA GOODWIN --
--- NOTE | 2019-08-04 09:25 | Progress Note - Cardiology ---
Cardiology SOAP Progress Note Subjective: Sitting up in chair at the bedside. States she feels unwell. Generalized discomfort. Gen weakness. Objective: I&O/Vital Signs 08/05/19 08/05/19 08/05/19 08/05/19 01:00 01:28 01:45 04:00 Temp 36.4 36.3 Pulse 70 68 75 Resp 18 18 B/P (MAP) 128/68 130/60 (83) Pulse Ox 100 100 100 O2 Delivery Venturi Mask Vapotherm Vapotherm O2 Flow Rate 35.00 35.00 3.00 60.00 FiO2 4 80 08/05/19 08/05/19 08/05/19 08/05/19 07:00 08:00 09:26 11:20 Temp 37.0 37.4 Pulse 77 78 76 Resp 18 20 B/P (MAP) 107/56 (73) 137/70 Pulse Ox 97 99 99 O2 Delivery Vapotherm Vapotherm Vapotherm O2 Flow Rate 3.50 20.00 80.00 FiO2 50 40 08/05/19 08/05/19 08/05/19 11:35 12:00 12:11 Temp 37.4 37.4 Pulse 86 76 85 Resp 20 20 B/P (MAP) 144/67 137/70 (92) Pulse Ox 99 97 O2 Delivery Vapotherm Vapotherm O2 Flow Rate 20.00 2.00 40.00 FiO2 40 08/04/19 23:59 Intake Total 370 ml Output Total 200 ml Balance 170 ml Constitutional: AAO x 3, other (thin, frail) Respiratory: No accessory muscle use, No respiratory distress; chest expansion is symmetric, chest is bilaterally symmetric, other (fair air entry with poor inspiratory effort) Cardiovascular: regular rate-rhythm; No JVD; S1 and S2 Gastrointestional: No tender; soft, audible bowel sounds (hypoactive) Genital/Rectal: other (urinary catheter to DD with deborah urine) Extremities: other (mild to mod bilat LE and UE swelling) Neurologic/Psychiatric: grossly intact (moves extremities) Skin: warm/dry, other (diffuse bruising to upper extremities bilat) Results/Procedures: Labs Laboratory Tests 08/04/19 14:01: Glucometer 83 08/04/19 14:05: Blood Gas Puncture Site LEFT RADIAL, Blood Gas Patient Temperature 37.3, Arterial Blood pH 7.49H, Arterial Blood Partial Pressure CO2 31L, Arterial Blood Partial Pressure O2 161H, Arterial Blood HCO3 23, Arterial Blood Total CO2 24.1, Arterial Blood Oxygen Saturation 100, Arterial Blood Base Excess 0.2, Irving Test POSITIVE, Blood Gas Ventilator Setting NO, Blood Gas Inspired Oxygen 50% 08/04/19 16:02: Glucometer 88 08/04/19 20:02: Glucometer 117H 08/05/19 04:50: White Blood Count 5.1, Red Blood Count 2.52L, Hemoglobin 7.4L, Hematocrit 23L, Mean Corpuscular Volume 92, Mean Corpuscular Hemoglobin 29, Mean Corpuscular Hemoglobin Concent 32, Red Cell Distribution Width 18.7H, Platelet Count 57L, Mean Platelet Volume 11.4H, Neutrophils (%) (Auto) 71, Lymphocytes (%) (Auto) 9L , Monocytes (%) (Auto) 19H, Eosinophils (%) (Auto) 0, Basophils (%) (Auto) 1, Neutrophils # (Auto) 3.6, Lymphocytes # (Auto) 0.5L, Monocytes # (Auto) 1.0, Eosinophils # (Auto) 0.0, Basophils # (Auto) 0.0, Neutrophils % (Manual) 64, Lymphocytes % (Manual) 6, Monocytes % (Manual) 12, Eosinophils % (Manual) 2, Basophils % (Manual) 0, Metamyelocytes % 1, Band Neutrophils 11, Reactive Lymphocytes 4, Toxic Granulation 2+, Polychromasia SLIGHT, Anisocytosis MODERATE, Microcytosis SLIGHT, Macrocytosis SLIGHT, Sodium Level 128L, Potassium Level 3.9, Chloride Level 96L, Carbon Dioxide Level 24, Anion Gap 8, Blood Urea Nitrogen 14, Creatinine 0.59L, Estimat Glomerular Filtration Rate > 60, BUN/Creatinine Ratio 24, Glucose Level 93, Calcium Level 7.0L, Phosphorus Level 4.1, Magnesium Level 1.6 08/05/19 10:28: Glucometer 94 Microbiology 07/29/19 Blood Culture - Final, Complete No growth 08/03/19 Gram Stain - Final, Resulted 08/03/19 Body Fluid Culture - Preliminary, Resulted No growth 07/27/19 MRSA Screen - Final, Complete MRSA not isolated 08/03/19 Urine Culture - Final, Complete YEAST A/P: Assessment: Severe sepsis - Medical Services managing FUO Lymphadenopathy - Med Svce and Heme/Onc managing Chronic HFpEF Severe anemia of undetermined etiology (she reports chronic anemia for which she has had multiple eval in the past with unknown cause). Stool positive for occult blood during previous admission - Dr. Payne of Hematology/Oncology previously consulted Thrombocytopenia, managed by the [facility]. Intermittent wandering atrial pacemaker during this admission. H/o PAF that has chronically been treated with flecainide (pt states years, but doesn't who s tarted it when). OAC has been withheld d/t because of severe anemia of undetermined etiology (per recs of hospitalist during previous admission earlier this month) Echo of 07/11/19: LVEF 60-65%, mild MR, mod AI, mild to mod TR, grade 2 mccullough dysfunction, RVSP 47 mmHg MPI of Jul 13, 2019 showed no evidence of ischemia/infarction; LVEF 67% Elevated bili level Plan: * Complex management * Sources of anemia and fever remain undiagnosed. This is being worked up and treated by the Hospitalist and Heme/Onc services * Continue Flecainide (which she has tolerated well for years, according to her) to prevent A Fib because she is not a suitable candidate for OAC * Monitor labs * Replace mag * Guraded prognosis DAVINA TRONCOSO Aug 04, 2019 09:25 POS
[2019-08-04] MEDS ORDERED: MAGNESIUM 1 GM/100 ML IVPB 100 ML IV ONE (09:30)
--- NOTE | 2019-08-04 09:40 | NUR ---
Patient transferred to [facility] per BED accompanied by CARD STEPDOWN staff. Patient and family notified and understand transfer. Personal belongings with patient. Report given to RN CHRISTA . NOTE THAT PT'S HEARING AIDE HAS NOT BEEN FOUND AND THAT THIS RN HAD U.C. CALL FOR PICC LINE RN TO COME AND CHECK THE PICC LINE ARM RED SWOLLEN AND SITE RED
[2019-08-04 12:32] LABS: PARAINFLU 1 PCR Not Detected (Not Detected); PARAINFLU 2 PCR Not Detected (Not Detected); RSV PCR Not Detected (Not Detected)
[2019-08-04] MEDS ORDERED: DEXTROSE 50% 50 ML (IMS) SYR ONE (12:44)
[2019-08-04] MEDS ORDERED: DEXTROSE 50% 50 ML (IMS) SYR IV ONE (12:45)
[2019-08-04] MEDS ORDERED: FUROSEMIDE 40 MG/4 ML INJ (LASIX) IVP ONE (12:45)
--- NOTE | 2019-08-04 14:00 | NUR ---
patient having trouble keeping o2 sats up, highest we could get was 83, Dr. Peralta notified orders for vapo therm and lasix also notified patient fsbs 53 - orders to give 25ml of d5 ampule( Ekit), PICC line nurse anyi came assessed picc flushing and drawing blood, elevated arm on pillow - arm remain swollen - fluids stopped today, patient endematous arms and legs
--- NOTE | 2019-08-04 14:00 | NUR ---
Pastoral care visit, sat w/ at bedside as he was absorbing the news that pt was declining and also absorbing the information from Dr Hopper regarding results of biopsy. shared some of their life story and the difficulty of this journey with his . He was very anxious for the arrival of his daughters/family and support system. He did ask if I could remain until they arrived, which I did. I provided support, encouragement and listening.
[2019-08-04 14:18] LABS: ABG BASE EXCESS 0.2 MMOL/L (-2.5-2.5); ABG OXYGEN SATURATION 100 % (94-100); ABG PCO2 31 MMHG (35-45); ABG PH 7.49 (7.37-7.43); ABG PO2 161 MMHG (79-93); ABG TCO2 24.1 MMOL/L (21.0-31.0)
[2019-08-04 14:20] LABS: ALLENS TEST POSITIVE; INSPIRED O2 50%; PATIENT TEMP 37.3; VENTILATOR NO
--- NOTE | 2019-08-04 14:48 | NUR ---
PALLIATIVE CARE RN: This RN was asked by Dr. Peralta to see patient who is in a significantly declined state. She is very pale and waxy looking. Respirations are very shallow. She is mottled on her knees and on her hands. Currently on VAPOTHERM at 100%, and reports being uncomfortable. Patient has been just recently diagnosed with CA suspected it is a Lymphoma. It is expected that patient will continue to decline, and we may be looking at COMFORT CARE measure only very soon. Planning to get some fluid pulled off of her body, may also transfuse her some blood products to see if we can get her supported. Will continue to monitor her for comfort needs. I did talk to the regarding her verbalization of discomfort. Educated him on the risk/benefit of the comfort medications. He understands and would like to hold off until her daughters are here, I asked the patient if she wanted to wait but she did not respond to this question.
--- NOTE | 2019-08-04 15:30 | Progress Note - Cardiology ---
Cardiology SOAP Progress Note Subjective: Persistent malaise and weakness No cp or palp or syncope Shortness of breath with activity Objective: I&O/Vital Signs 08/04/19 08/04/19 08/04/19 08/04/19 04:00 04:00 06:48 08:00 Temp 37.1 36.6 Pulse 78 84 85 Resp 16 18 B/P (MAP) 116/68 (84) 108/49 (68) Pulse Ox 97 96 91 O2 Delivery Nasal Cannula Nasal Cannula Nasal Cannula O2 Flow Rate 3.00 4.00 4.00 08/04/19 08/04/19 08/04/19 08/04/19 08:00 10:00 12:00 12:50 Temp 36.7 37.0 37.0 Pulse 81 90 102 Resp 18 18 B/P (MAP) 122/58 (79) 122/58 (79) Pulse Ox 97 91 94 93 O2 Delivery Nasal Cannula Nasal Cannula Nasal Cannula O2 Flow Rate 3.00 4.00 4.00 FiO2 50 08/04/19 13:11 Pulse 91 08/04/19 00:00 Intake Total 790 ml Output Total 525 ml Balance 265 ml Constitutional: AAO x 3, other (thin, frail) Respiratory: No accessory muscle use, No respiratory distress; chest expansion is symmetric, chest is bilaterally symmetric, other (fair air entry with poor inspiratory effort) Cardiovascular: regular rate-rhythm; No JVD; S1 and S2 Gastrointestional: No tender; soft, audible bowel sounds (hypoactive) Genital/Rectal: other (urinary catheter to DD with deborah urine) Extremities: other (mild to mod bilat LE and UE swelling) Neurologic/Psychiatric: grossly intact (moves extremities) Skin: warm/dry, other (diffuse bruising to upper extremities bilat) Results/Procedures: Labs Laboratory Tests 08/03/19 15:54: Glucometer 136H 08/03/19 20:13: Glucometer 109 08/04/19 03:30: White Blood Count 4.9, Red Blood Count 2.52L, Hemoglobin 7.4L, Hematocrit 23L, Mean Corpuscular Volume 91, Mean Corpuscular Hemoglobin 29, Mean Corpuscular Hemoglobin Concent 32, Red Cell Distribution Width 18.9H, Platelet Count 70L, Mean Platelet Volume 10.9H, Neutrophils (%) (Auto) 73, Lymphocytes (%) (Auto) 10L, Monocytes (%) (Auto) 16H, Eosinophils (%) (Auto) 0, Basophils (%) (Auto) 0, Neutrophils # (Auto) 3.6, Lymphocytes # (Auto) 0.5L, Monocytes # (Auto) 0.8, Eosinophils # (Auto) 0.0, Basophils # (Auto) 0.0, Sodium Level 130L, Potassium Level 4.4, Chloride Level 98, Carbon Dioxide Level 22, Anion Gap 10, Blood Urea Nitrogen 14, Creatinine 0.57L, Estimat Glomerular Filtration Rate > 60, BUN/Creatinine Ratio 25, Glucose Level 100, Calcium Level 7.2L, Phosphorus Level 3.3, Magnesium Level 1.5L, Total Bilirubin 1.9H, Direct Bilirubin 1.0H, Indirect Bilirubin 0.9 08/04/19 12:12: Glucometer 53*L 08/04/19 14:01: Glucometer 83 08/04/19 14:05: Blood Gas Puncture Site LEFT RADIAL, Blood Gas Patient Temperature 37.3, Arterial Blood pH 7.49H, Arterial Blood Partial Pressure CO2 31L, Arterial Blood Partial Pressure O2 161H, Arterial Blood HCO3 23, Arterial Blood Total CO2 24.1, Arterial Blood Oxygen Saturation 100, Arterial Blood Base Excess 0.2, Irving Test POSITIVE, Blood Gas Ventilator Setting NO, Blood Gas Inspired Oxygen 50% Microbiology 07/29/19 Blood Culture - Final, Complete No growth 08/03/19 Gram Stain - Final, Resulted 08/03/19 Body Fluid Culture - Preliminary, Resulted No growth 07/27/19 MRSA Screen - Final, Complete MRSA not isolated 08/03/19 Urine Culture - Preliminary, Resulted YEAST Laboratory Tests 08/03/19 04:06 08/04/19 03:30 A/P: Assessment: Severe sepsis - Medical Services managing FUO Lymphadenopathy - Med Svce and Heme/Onc managing Chronic HFpEF Severe anemia of undetermined etiology (she reports chronic anemia for which she has had multiple eval in the past with unknown cause). Stool positive for occult blood during previous admission - Dr. Payne of Hematology/Oncology previously consulted Thrombocytopenia, managed by the [facility] SSS. Intermittent wandering atrial pacemaker during this admission. H/o PAF that has chronically been treated with flecainide (pt states years, but doesn't who started it when). OAC has been withheld d/t because of severe anemia of undetermined etiology (per recs of hospitalist during previous admission earlier this month) Echo of 07/11/19: LVEF 60-65%, mild MR, mod AI, mild to mod TR, grade 2 mccullough dysfunction, RVSP 47 mmHg MPI of Jul 13, 2019 showed no evidence of ischemia/infarction; LVEF 67% Elevated bili level Plan: * Complex management * Sources of anemia and fever remain undiagnosed. This is being worked up and treated by the Hospitalist and Heme/Onc services * Continue current cardiac regimen * Monitor labs * Replace lytes * Guarded prognosis ANA FINLEY MD FACP FAC CCDS Aug 04, 2019 15:30 POS
--- NOTE | 2019-08-04 16:07 | Progress Note ---
Standard Progress Note Progress Notes/Assess & Plan Date Seen by a Provider: Aug 04, 2019 Time Seen by a Provider: 16:03 Progress/Assessment & Plan 74-year-old female with FUO and extensive workup at several outside hospitals over the past 2+ months. Recent CT scan locally showed bilateral axillary lymphadenopathy as well as splenomegaly. Status post left axillary lymph node biopsy on 08/02/2019. Preliminary report today was that of possible lymphoma. No flow cytometry was done. IHC studies pending. Patient significantly weaker and short of breath today. Hemoglobin 7.4. Would recommend transfusion with 2 units of PRBCs to maintain hemoglobin more than 8 g/dL because of her age and functional status. Discussed the pathology findings with the patient's . Once definitive diagnosis is obtained, I will discuss this with the patient and her family about the diagnosis, prognosis and treatment options. Patient has been made a DO NOT RESUSCITATE per her and family's wishes. Continue rest of the treatment as you are doing. Will follow patient with you. Focused Exam Time of Focused Exam: 18:46 LEEROY BANERJEE Aug 04, 2019 16:07 POS
[2019-08-04] MEDS ORDERED: NS IV 500 ML 500 ML IV SCH ×2 (16:49→17:00)
[2019-08-04] MEDS: fentaNYL INJECTION 100 MCG/2 ML AMP IV PRN (16:57)
[2019-08-04] MEDS ORDERED: FUROSEMIDE 40 MG/4 ML INJ (LASIX) IVP NR (17:00)
--- NOTE | 2019-08-04 18:00 | NUR ---
family requested pain medication, pulled out omnicell - upon administering noted was too soon - medication wasted family notified was soon - patient remains comfortable no s/s pain noted by this nurse - tylenol supp. administered for fever /headache per family request
[2019-08-04] MEDS: ACETAMINOPHEN 650 MG SUPP (TYLENOL) PR PRN (18:45)
--- NOTE | 2019-08-04 19:45 | NUR ---
PT HAS BECOME VERY WEAK AND NOT ABLE TO TRANSFER WELL FROM BED TO COMMODE, HER HGB IS AT 7.4 AND HAS BLOOD TRANSFUSION ORDERED FOR TONIGHT. DR FLOYD NOTIFIED AND GAVE ORDER TO INSERT MURPHY CATH. PT TOLERATED WELL, STERILE TECHNIQUE FOLLOWED.
[2019-08-05] VITALS (10 sets, daily range): BP systolic 97–148; BP diastolic 47–79
[2019-08-05] MEDS: ONDANSETRON 4 MG/2 ML (SDV) Z0FRAN IV PRN (01:33)
[2019-08-05] MEDS: fentaNYL INJECTION 100 MCG/2 ML AMP IV PRN (01:33)
[2019-08-05] MEDS: RT-ALBUTEROL/IPRATROPIUM 3 ML (DUONEB) VIAL INH SCH ×6 (01:45→21:25)
--- NOTE | 2019-08-05 01:45 | NUR ---
DURING BLOOD TRANSFUSION ALL V/S REMAINED WNL AND VARIED VERY LITTLE FROM PRE AND DURING TRANSFUSION. DURING THE FIRST HALF OF TRANSFUSION PT WAS AWAKE AND ANSWERING QUESTIONS AND MORE ALERT. WHEN TRANSFUSION ENDED AROUND 0125, SHE SAID SHE HAD A BAD HEADACHE RATED AT A TEN AND NAUSEA. PRN IV FENTANYL 12.5 MCG AND ZOFRAN 4 MG ADMIN AFTER TRANSFUSION. HER BP HAD RISEN TO 125/68, NO ELEVATED TEMP AND PULSE WAS AT 68. MOBILITY SCOOTER REPAIRER, NANDINI, NOTIFIED OF POST TRANSFUSION SYMPTOMS AND PTS ILLNESS. HE SAID TO CONTINUE TO WATCH PT CLOSELY. AT 0145 THIS NURSE BOBBIN STRIPPER WENT BACK IN PTS ROOM TO CHECK ON HER AND SHE REPORTED TO ME THAT HER PAIN WAS 'MUCH BETTER' WAS NAUSEA. WILL CONTINUE TO MONITOR CLOSELY.
[2019-08-05 04:59] LABS: BASOPHILS % (AUTO) 1 % (0-10); EOSINOPHILS % (AUTO) 0 % (0-10); HEMATOCRIT 23 % (35-52); HEMOGLOBIN 7.4 G/DL (11.5-16.0); LYMPHOCYTES # (AUTO) 0.5 X 10^3 (1.0-4.0); LYMPHOCYTES % (AUTO) 9 % (12-44); MEAN CORPUSCULAR HEMOGLOBIN 29 PG (25-34); MEAN CORPUSCULAR HGB CONC 32 G/DL (32-36); MEAN CORPUSCULAR VOLUME 92 FL (80-99); MEAN PLATELET VOLUME 11.4 FL (7.4-10.4); MONOCYTES % (AUTO) 19 % (0-12); NEUTROPHILS # (AUTO) 3.6 X 10^3 (1.8-7.8); NEUTROPHILS % (AUTO) 71 % (42-75); PLATELET COUNT 57 10^3/uL (130-400); RED CELL DISTRIBUTION WIDTH 18.7 % (10.0-14.5); WHITE BLOOD COUNT 5.1 10^3/uL (4.3-11.0)
[2019-08-05] MEDS: ACETAMINOPHEN 325 MG TABLET PO PRN ×3 (04:59→20:29)
[2019-08-05 05:25] LABS: ANISOCYTOSIS MODERATE; BAND NEUTROPHILS 11 %; BASOPHILS % (MANUAL) 0 %; EOSINOPHILS % (MANUAL) 2 %; LYMPHOCYTES % (MANUAL) 6 %; METAMYELOCYTES % 1 %; MICROCYTOSIS SLIGHT; MONOCYTES % (MANUAL) 12 %; NEUTROPHILS % (MANUAL) 64 %; POLYCHROMASIA SLIGHT; REACTIVE LYMPHOCYTES 4 %; TOXIC GRANULATION/VACUOLAZATIO 2+
[2019-08-05 05:27] LABS: BUN/CREATININE RATIO 24; CARBON DIOXIDE 24 MMOL/L (21-32); CHLORIDE 96 MMOL/L (98-107); CREATININE SERUM 0.59 MG/DL (0.60-1.30); GFR ESTIMATED > 60; GLUCOSE 93 MG/DL (70-105); MAGNESIUM 1.6 MG/DL (1.6-2.4); PHOSPHORUS 4.1 MG/DL (2.3-4.7); POTASSIUM 3.9 MMOL/L (3.6-5.0); SODIUM 128 MMOL/L (135-145)
[2019-08-05] MEDS: KCL 20 MEQ TAB (K-DUR) PO SCH ×2 (05:31→05:41)
[2019-08-05] MEDS: inSUlin ASPART (NovoLOG) 1 UNIT/0.01 ML (CHARGE PER UNIT) SC SCH ×4 (05:32→21:58)
--- NOTE | 2019-08-05 05:38 | NUR ---
THIS RN ADMIN PRN TYLENOL AT APPROX 0500 D/T TO GENERAL DISCOMFORT PER PT. AT 0530 PT REPORTED SHE THINKS SHE FELT BETTER. SHE IS MORE ALERT AND TALKING MORE TO STAFF AND DAUGHTER, WHO SPENT NIGHT IN ROOM. WHEN ADMIN TYLENOL, THIS RN HAD TO CRUSH PILLS AND MIX WITH APPLESAUCE IN ORDER FOR HER TO BE ABLE TO TAKE MED PO. DAUGHTER REPORTED SHE DID NOT THINK THAT PT COULD SWALLOW 0700 MEDICATIONS.
[2019-08-05] MEDS: LACTOBACILLUS ACIDOPHILUS (PROBIOTIC) CAPSULE PO SCH ×3 (05:41→17:20)
--- NOTE | 2019-08-05 06:27 | Pulmonary Progress Note ---
Subjective Time Seen by a Provider: 06:21 Subjective/Events-last exam Pt is requiring high flow vapotherm currently. Sepsis Event Evaluation Height, Weight, BMI Height: '" Weight: lbs. oz. kg; 21.00 BMI Method:Estimated Focused Exam Time of Focused Exam: 18:46 Exam Exam Vital Signs Date Time Temp Pulse Resp B/P (MAP) Pulse Ox O2 Delivery O2 Flow Rate FiO2 08/05/19 01:45 100 Vapotherm 35.00 80 08/05/19 01:28 36.4 68 18 128/68 100 Venturi Mask 35.00 4 08/05/19 01:00 70 08/05/19 00:00 38.0 76 16 100/47 (64) 98 Vapotherm 3.50 80.00 08/04/19 21:50 36.9 88 95/52 100 Vapotherm 4.00 90 08/04/19 21:49 100 Vapotherm 35.00 80 08/04/19 20:00 Vapotherm 4.00 100 08/04/19 19:04 38.0 90 20 106/68 (81) 99 Vapotherm 4.00 100.00 08/04/19 19:00 96 08/04/19 16:20 37.8 90 16 128/70 (89) 100 Vapotherm 4.00 100.00 08/04/19 16:00 Vapotherm 4.00 100 08/04/19 13:11 91 08/04/19 12:50 37.0 102 93 50 08/04/19 12:00 37.0 90 18 122/58 (79) 94 Nasal Cannula 4.00 08/04/19 12:00 Nasal Cannula 08/04/19 10:00 36.7 81 18 122/58 (79) 91 Nasal Cannula 4.00 08/04/19 08:00 97 Nasal Cannula 3.00 08/04/19 08:00 36.6 85 18 108/49 (68) 91 Nasal Cannula 4.00 08/04/19 06:48 84 I & O 08/05/19 07:00 Intake Total 470 ml Output Total 200 ml Balance 270 ml Height & Weight Height: '" Weight: lbs. oz. kg; 21.00 BMI Method:Estimated General Appearance: Anxious, Chronically ill, Mild Distress, Thin HEENT: PERRL/EOMI Neck: Full Range of Motion Respiratory: Chest Non Tender, Decreased Breath Sounds Cardiovascular: Regular Rate, Rhythm Capillary Refill: Less Than 3 Seconds Gastrointestinal: normal bowel sounds, non tender, soft Extremity: Normal Capillary Refill Neurologic/Psychiatric: Alert, Oriented x3 Skin: Normal Color Lymphatic: Other (left axillary lymph node) Results Lab Laboratory Tests 08/04/19 03:30 08/05/19 04:50 Assessment/Plan Assessment/Plan UTI with sepsis and PNA - Merrem -Hernandez cultures reviewed -MRSA swab neg Pulmonary edema with bilateral pleural effusions -S/p right thoracentesis 950cc drained. -CT chest reviewed -Check Echo -Echo of 07/11/19: LVEF 60-65%, mild MR, mod AI, mild to mod TR, grade 2 mccullough dysfunction, RVSP 47 mmHg Hyperbilirubinemia - Abd US Mild hypotension with decreased and concentrated UO -LR 150 Metabolic encephalopathy -Serge worse during fever's -LP would be risky secondary to thrombocytopenia Anemia -Transfuse another 1 unit PRBC Metabolic lactic acid -Hold lasix Lung nodule -Will need out pt serial chest cts Fever of unknown origin Possible lymphoma s/p axillary node bx -Cytology pending Thombocytopenia Mild anemia -s/p 1 unit PRBC -Check occult stool - was positive last hospitalization -Pt is colonoscopy on Friday in [place] Connelly DO Aug 05, 2019 06:27 POS
[2019-08-05] MEDS: FLECAINIDE 100 MG (TAMBOCOR) TAB PO SCH ×2 (08:10→20:29)
[2019-08-05] MEDS: PANTOPRAZOLE 40 MG (PROTONIX) VIAL IV SCH (08:10)
[2019-08-05] MEDS: CARVEDILOL 6.25 MG (COREG) TAB PO SCH ×2 (08:10→21:57)
--- NOTE | 2019-08-05 08:56 | Progress Note - Cardiology ---
Cardiology SOAP Progress Note Subjective: Generalized weakness and body aches. Frail. Multiple family at the bedside. Objective: I&O/Vital Signs 08/05/19 08/06/19 08/06/19 08/06/19 21:25 00:00 00:40 01:50 Temp 35.4 Pulse 69 70 Resp 20 B/P (MAP) 103/55 (71) Pulse Ox 98 92 92 O2 Delivery Vapotherm Vapotherm Vapotherm O2 Flow Rate 20.00 2.00 15.00 40.00 FiO2 40 35 08/06/19 08/06/19 08/06/19 08/06/19 04:00 06:54 07:00 08:00 Temp 36.7 Pulse 72 73 Resp 18 B/P (MAP) 101/48 (65) Pulse Ox 94 99 99 O2 Delivery Vapotherm Vapotherm High Flow N/C O2 Flow Rate 2.00 15.00 8.00 40.00 FiO2 35 08/06/19 00:00 Intake Total 790 ml Output Total 850 ml Balance -60 ml Constitutional: AAO x 3, other (thin, frail) Respiratory: No accessory muscle use, No respiratory distress; chest expansion is symmetric, chest is bilaterally symmetric, other (fair air entry with poor inspiratory effort) Cardiovascular: regular rate-rhythm; No JVD; S1 and S2 Gastrointestional: No tender; soft, audible bowel sounds (hypoactive) Genital/Rectal: other (urinary catheter to DD with deborah urine) Extremities: other (mild to mod bilat LE and UE swelling) Neurologic/Psychiatric: grossly intact (moves extremities) Skin: warm/dry, jaundice, pallor, other (diffuse bruising to upper extremities bilat) Results/Procedures: Labs Laboratory Tests 08/05/19 10:28: Glucometer 94 08/05/19 15:59: Glucometer 113H 08/05/19 20:00: Glucometer 130H 08/06/19 05:00: White Blood Count 5.6, Red Blood Count 2.74L, Hemoglobin 8.1L, Hematocrit 25L, Mean Corpuscular Volume 92, Mean Corpuscular Hemoglobin 30, Mean Corpuscular Hemoglobin Concent 32, Red Cell Distribution Width 19.4H, Platelet Count 44L, Mean Platelet Volume 11.3H, Neutrophils (%) (Auto) 65, Lymphocytes (%) (Auto) 14, Monocytes (%) (Auto) 19H, Eosinophils (%) (Auto) 1, Basophils (%) (Auto) 1, Neutrophils # (Auto) 3.7, Lymphocytes # (Auto) 0.8L, Monocytes # (Auto) 1.1H, Eosinophils # (Auto) 0.0, Basophils # (Auto) 0.0, Sodium Level 131L, Potassium Level 4.2, Chloride Level 98, Carbon Dioxide Level 25, Anion Gap 8, Blood Urea Nitrogen 20H, Creatinine 0.65, Estimat Glomerular Filtration Rate > 60, BUN/Creatinine Ratio 31, Glucose Level 92, Calcium Level 7.2L, Phosphorus Level 4.2, Magnesium Level 1.7 Microbiology 07/29/19 Blood Culture - Final, Complete No growth 08/03/19 Gram Stain - Final, Resulted 08/03/19 Body Fluid Culture - Preliminary, Resulted No growth 07/27/19 MRSA Screen - Final, Complete MRSA not isolated 08/03/19 Urine Culture - Final, Complete YEAST A/P: Assessment: Severe sepsis - Medical Services managing FUO Lymphoma per axillary lymph node biopsy on 08-02-19 - Med Svce and Heme/Onc managing Chronic HFpEF Severe anemia of undetermined etiology (she reports chronic anemia for which she has had multiple eval in the past with unknown cause). Stool positive for occult blood during previous admission - Dr. Payne of Hematology/Oncology previously consulted [facility] Intermittent wandering atrial pacemaker during this admission. H/o PAF that has chronically been treated with flecainide (pt states years, but doesn't who started it when). OAC has been withheld d/t because of severe anemia of undetermined etiology (per recs of hospitalist during previous admission earlier this month) Echo of 07/11/19: LVEF 60-65%, mild MR, mod AI, mild to mod TR, grade 2 mccullough dysfunction, RVSP 47 mmHg MPI of Jul 13, 2019 showed no evidence of ischemia/infarction; LVEF 67% Elevated bili level Plan: * Complex management * Lymphoma has been diagnosed per axillary lymph node biopsy on 08-02-19 * Management of anemia and fever is per medical/oncology services * Continue current cardiac regimen * Monitor labs * Replace lytes * Guarded prognosis * Palliative care consult has been made - awaiting family decision - has been changed to DNR status per pt wishes DAVINA TRONCOSO Aug 05, 2019 08:56 POS
--- NOTE | 2019-08-05 09:51 | NUR ---
PALLIATIVE CARE RN in to see patient. She is laying in bed and is surrounded by family. Upon entering and asking how she was to the family, patient opens her eyes and moves head toward this RN. She reports that she does feel better. When I told her she gave us a big scare yesterday she and her family agreed. Palliative Care RN will continue to follow and offer support.
[2019-08-05] MEDS ORDERED: FUROSEMIDE 40 MG/4 ML INJ (LASIX) IVP NR (10:15)
[2019-08-05] MEDS ORDERED: NS IV 500 ML 500 ML IV SCH (10:15)
--- NOTE | 2019-08-05 10:21 | Progress Note - Hospitalist ---
Subjective HPI/CC On Admission Date Seen by Provider: Aug 05, 2019 Time Seen by Provider: 10:22 fever, tachycardia, and hypotension Subjective/Events-last exam Pt much more alert today. Discussed events of yesterday and cancer diagnosis. Brought up goals of care but patietn quite sleeping and defers to who asked me to help her "get well." I reiterated that we'll continue current treatment but that her prognosis is still quite guarded. Focused Exam Time of Focused Exam: 18:46 Objective Exam Vital Signs Vital Signs Date Time Temp Pulse Resp B/P (MAP) Pulse Ox O2 Delivery O2 Flow Rate FiO2 08/05/19 09:26 99 Vapotherm 20.00 50 08/05/19 08:00 37.0 78 18 107/56 (73) Capillary Refill : Less Than 3 SecondsLess Than 3 Seconds General Appearance: No Apparent Distress, Chronically ill Respiratory: No Accessory Muscle Use, No Respiratory Distress, Decreased Breath Sounds Cardiovascular: Regular Rate, Rhythm, No Murmur Extremity: Swelling (diffuse, anasarca) Neurologic/Psychiatric: Other (alert and arouses to verbal stimuli but falls back asleep quickly) Results/Procedures Lab Laboratory Tests 08/05/19 04:50 Patient resulted labs reviewed. Imaging: Reviewed Imaging Report Assessment/Plan Assessment and Plan Assess & Plan/Chief Complaint Hypoxemic respiratory failure Severe sepsis HCAP Bilateral pleural effusions -Completed Merrem- now off antibiotics -Cultures with no growth to date -Pulm following - Continue lasix - Wean off vapotherm as able Fever of unknown origin Axillary lymphadenopathy Splenomegaly Lactic Acidosis, resolved - Afebrile, continue off antibiotics - Previously worked up for fever at , [facility], and [facility] - CT Chest/Abdomen/Pelvis revealed large left axillary lymph node, moderate splenomegaly - General surgery consulted s/p biopsy on 08/02- prelim report shows likely lymphoma - RVP negative - Thoracentesis - fluid cultures negative Hypokalemia Hypomagnesemia Hypophosphatemia -Monitor and replace as needed Atrial fibrillation -Continue Flecainide and Coreg -Cardiology following -No anticoagulation due to recurrent GI bleeding and anemia Recurrent GI bleeding Chronic blood loss anemia - s/p transfusion yesterday, will repeat today given no improvement in Hgb Thrombocytopenia -Stable. ?splenomegaly -Continue to monitor DVT Prophylaxis: held due to recurrent GI bleeding Overall poor prognosis. I did inform patient and family of my concern regarding her ability to survive this current illness. At this time they would not like to deescalate care. Clinical Quality Measures DVT/VTE Risk/Contraindication: Risk Factor Score Per Nursin RFS Level Per Nursing on Admit: 4+=Very High Contraindications-Pharm: Other *list below* Other: Pt receiving blood transfusion, possible bleeding so no order for medication indicated. Pt does have SCD's ordered and on. ODELL JOHNSON MD Aug 05, 2019 10:21 POS
[2019-08-05] MEDS: NS IV 500 ML 500 ML IV SCH (11:06)
--- NOTE | 2019-08-05 14:15 | NUR ---
Pastoral care visit, pts coping well, good family support and attend [employer] [facility] [place].
[2019-08-05] MEDS: ACETAMINOPHEN 650 MG SUPP (TYLENOL) PR PRN (15:07)
[2019-08-05] MEDS: FUROSEMIDE 40 MG/4 ML INJ (LASIX) IVP SCH (15:56)
--- NOTE | 2019-08-05 17:35 | Progress Note ---
Standard Progress Note Progress Notes/Assess & Plan Date Seen by a Provider: Aug 05, 2019 Time Seen by a Provider: 17:29 Progress/Assessment & Plan 74-year-old female with FUO and extensive workup at several outside hospitals over the past 2+ months. Recent CT scan locally showed bilateral axillary lymphadenopathy as well as splenomegaly. Status post left axillary lymph node biopsy on 08/02/2019. 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 Also BCL-2 and BCL 6 positive. 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 Ki-67 almost 100 percent. Discussed diagnosis and prognosis with the patient's daughter and rest of the family. Patient's had gone home and was not present. Patient herself felt good this morning but has a fever this evening and is not completely oriented. Hemoglobin today was 7.4. She received 1 unit of PRBC today. Try to maintain hemoglobin more than 8 g/dL because of her age and functional status. I will meet with her and rest of the family members tomorrow at 10 a.m to discuss about prognosis and treatment options again. With the triple hit lymphoma, the treatment needs to be aggressive and even then chance of complete response is low. With her current performance status, she would not be a candidate for aggressive chemotherapy. Patient has been made a DO NOT RESUSCITATE per her and family's wishes. Continue rest of the treatment as you are doing. Will follow patient with you. Focused Exam Time of Focused Exam: 18:46 LEEROY BANERJEE Aug 05, 2019 17:35 POS
[2019-08-06] VITALS: BP 103/55
[2019-08-06] MEDS: RT-ALBUTEROL/IPRATROPIUM 3 ML (DUONEB) VIAL INH SCH ×5 (01:50→18:43)
[2019-08-06 04:00] VITALS: BP 101/48
[2019-08-06] MEDS: inSUlin ASPART (NovoLOG) 1 UNIT/0.01 ML (CHARGE PER UNIT) SC SCH ×4 (05:03→21:14)
[2019-08-06] MEDS: LACTOBACILLUS ACIDOPHILUS (PROBIOTIC) CAPSULE PO SCH ×3 (05:03→16:01)
[2019-08-06 05:16] LABS: BASOPHILS % (AUTO) 1 % (0-10); EOSINOPHILS % (AUTO) 1 % (0-10); HEMATOCRIT 25 % (35-52); HEMOGLOBIN 8.1 G/DL (11.5-16.0); LYMPHOCYTES # (AUTO) 0.8 X 10^3 (1.0-4.0); LYMPHOCYTES % (AUTO) 14 % (12-44); MEAN CORPUSCULAR HEMOGLOBIN 30 PG (25-34); MEAN CORPUSCULAR HGB CONC 32 G/DL (32-36); MEAN CORPUSCULAR VOLUME 92 FL (80-99); MEAN PLATELET VOLUME 11.3 FL (7.4-10.4); MONOCYTES # (AUTO) 1.1 X 10^3 (0.0-1.0); MONOCYTES % (AUTO) 19 % (0-12); NEUTROPHILS # (AUTO) 3.7 X 10^3 (1.8-7.8); NEUTROPHILS % (AUTO) 65 % (42-75); PLATELET COUNT 44 10^3/uL (130-400); RED CELL DISTRIBUTION WIDTH 19.4 % (10.0-14.5); WHITE BLOOD COUNT 5.6 10^3/uL (4.3-11.0)
[2019-08-06 05:37] LABS: BUN/CREATININE RATIO 31; CALCIUM 7.2 MG/DL (8.5-10.1); CARBON DIOXIDE 25 MMOL/L (21-32); CHLORIDE 98 MMOL/L (98-107); CREATININE SERUM 0.65 MG/DL (0.60-1.30); GFR ESTIMATED > 60; GLUCOSE 92 MG/DL (70-105); MAGNESIUM 1.7 MG/DL (1.6-2.4); PHOSPHORUS 4.2 MG/DL (2.3-4.7); POTASSIUM 4.2 MMOL/L (3.6-5.0); SODIUM 131 MMOL/L (135-145)
--- NOTE | 2019-08-06 06:09 | Pulmonary Progress Note ---
Subjective Time Seen by a Provider: 06:09 Subjective/Events-last exam appears to be doing better. Sepsis Event Evaluation Height, Weight, BMI Height: '" Weight: lbs. oz. kg; 21.00 BMI Method:Estimated Focused Exam Time of Focused Exam: 18:46 Exam Exam Vital Signs Date Time Temp Pulse Resp B/P (MAP) Pulse Ox O2 Delivery O2 Flow Rate FiO2 08/06/19 04:00 36.7 72 18 101/48 (65) 94 Vapotherm 2.00 40.00 08/06/19 01:50 92 Vapotherm 15.00 35 08/06/19 00:40 70 08/06/19 00:00 35.4 69 20 103/55 (71) 92 Vapotherm 2.00 40.00 08/05/19 21:25 98 Vapotherm 20.00 40 08/05/19 20:00 97 Vapotherm 2.00 08/05/19 19:35 36.0 90 16 97/49 (65) 97 Vapotherm 2.00 40.00 08/05/19 18:48 89 08/05/19 17:51 37.4 08/05/19 17:17 38.4 08/05/19 16:05 38.3 95 20 148/67 (94) 93 Vapotherm 2.00 40.00 08/05/19 15:40 37.8 08/05/19 15:07 38.0 08/05/19 14:30 38.0 87 20 129/79 98 08/05/19 13:52 93 Vapotherm 20.00 40 08/05/19 12:11 85 08/05/19 12:00 37.4 76 20 137/70 (92) 97 Vapotherm 2.00 40.00 08/05/19 11:35 37.4 86 20 144/67 99 Vapotherm 20.00 40 08/05/19 11:20 37.4 76 20 137/70 99 Vapotherm 40 08/05/19 09:26 99 Vapotherm 20.00 50 08/05/19 08:00 37.0 78 18 107/56 (73) 97 Vapotherm 3.50 80.00 08/05/19 07:00 77 I & O 08/06/19 07:00 Intake Total 1090 ml Output Total 1450 ml Balance -360 ml Height & Weight Height: '" Weight: lbs. oz. kg; 21.00 BMI Method:Estimated General Appearance: No Apparent Distress, Chronically ill HEENT: PERRL/EOMI Neck: Full Range of Motion Respiratory: No Accessory Muscle Use, No Respiratory Distress, Decreased Breath Sounds Cardiovascular: Regular Rate, Rhythm, No Murmur Capillary Refill: Less Than 3 Seconds Gastrointestinal: normal bowel sounds, non tender, soft Extremity: Swelling (diffuse, anasarca) Neurologic/Psychiatric: Other (alert and arouses to verbal stimuli but falls back asleep quickly) Skin: Normal Color Lymphatic: Other (left axillary lymph node) Results Lab Laboratory Tests 08/05/19 04:50 08/06/19 05:00 Assessment/Plan Assessment/Plan UTI with sepsis and PNA - Merrem has been d/c'd -Hernandez cultures reviewed -MRSA swab neg Pulmonary edema with bilateral pleural effusions -S/p right thoracentesis 950cc drained. -Titrate vapotherm to reg NC. -CT chest reviewed -Check Echo -Echo of 07/11/19: LVEF 60-65%, mild MR, mod AI, mild to mod TR, grade 2 mccullough dysfunction, RVSP 47 mmHg Anemia Lung nodule -Will need out pt serial chest cts Fever of unknown origin Possible lymphoma s/p axillary node bx -Cytology pending Thombocytopenia Mild anemia -s/p 1 unit PRBC -Check occult stool - was positive last hospitalization -Pt is colonoscopy on Friday in [place] Connelly DO Aug 06, 2019 06:09 POS
[2019-08-06] MEDS: KCL 20 MEQ TAB (K-DUR) PO SCH ×2 (06:15→14:35)
[2019-08-06 08:00] VITALS: BP 108/52
[2019-08-06] MEDS: PANTOPRAZOLE 40 MG (PROTONIX) VIAL IV SCH (08:49)
[2019-08-06] MEDS: FLECAINIDE 100 MG (TAMBOCOR) TAB PO SCH ×2 (08:49→22:05)
[2019-08-06] MEDS: CARVEDILOL 6.25 MG (COREG) TAB PO SCH ×2 (08:49→22:05)
--- NOTE | 2019-08-06 09:02 | Progress Note - Cardiology ---
Cardiology SOAP Progress Note Subjective: Sitting up in bed. More alert this morning. Denies any c/o pain. Gen weakness. Family x2 at the bedside. Objective: I&O/Vital Signs 08/09/19 08/09/19 08/09/19 08/09/19 00:00 01:00 04:00 04:05 Temp 36.2 36.2 Pulse 89 92 84 Resp 16 20 B/P (MAP) 111/52 (71) 102/53 (69) Pulse Ox 92 96 93 O2 Delivery High Flow N/C High Flow N/C Nasal Cannula O2 Flow Rate 4.00 4.00 4.00 08/09/19 08/09/19 08/09/19 06:37 07:00 08:00 Temp 36.4 Pulse 75 90 Resp 24 B/P (MAP) 171/89 (116) Pulse Ox 93 96 O2 Delivery Nasal Cannula High Flow N/C O2 Flow Rate 4.00 4.00 08/09/19 00:00 Intake Total 460 ml Output Total 375 ml Balance 85 ml Constitutional: AAO x 3, other (thin, frail) Respiratory: No accessory muscle use, No respiratory distress; chest expansion is symmetric, chest is bilaterally symmetric, other (fair air entry with poor inspiratory effort) Cardiovascular: regular rate-rhythm; No JVD; S1 and S2 Gastrointestional: No tender; soft, audible bowel sounds (hypoactive) Genital/Rectal: other (urinary catheter to DD with deborah urine) Extremities: other (pitting bilat LE and UE swelling) Neurologic/Psychiatric: grossly intact (moves extremities) Skin: warm/dry, jaundice, pallor, other (diffuse bruising to upper extremities bilat) Results/Procedures: Labs Laboratory Tests 08/08/19 11:02: Glucometer 145H 08/08/19 15:49: Glucometer 133H 08/08/19 16:25: Urine Color AMBERH, Urine Clarity SL CLOUDY, Urine pH 6.0, Urine Specific Register 1.020, Urine Protein 2+H, Urine Glucose (UA) NEGATIVE, Urine Ketones NEGATIVE, Urine Nitrite NEGATIVE, Urine Bilirubin NEGATIVE, Urine Urobilinogen 1.0, Urine Leukocyte Esterase NEGATIVE, Urine RBC (Auto) 3+H, Urine RBC 0-2, Urine WBC 0-2, Urine Squamous Epithelial Cells NONE, Urine Renal Epithelial Cells 0-2, Urine Crystals PRESENTH, Urine Amorphous Sediment FEW HAJA URATESH, Urine Bacteria MODERATEH, Urine Casts PRESENT, Urine Granular Casts 2-5H, Urine Mucus NEGATIVE, Urine Culture Indicated YES 08/08/19 20:12: Glucometer 165H 08/09/19 04:35: White Blood Count 7.2, Red Blood Count 2.58L, Hemoglobin 7.5L, Hematocrit 24L, Mean Corpuscular Volume 92, Mean Corpuscular Hemoglobin 29, Mean Corpuscular Hemoglobin Concent 32, Red Cell Distribution Width 20.9H, Platelet Count 81L, Mean Platelet Volume 11.2H, Neutrophils (%) (Auto) 81H, Lymphocytes (%) (Auto) 5L, Monocytes (%) (Auto) 15H, Eosinophils (%) (Auto) 0, Basophils (%) (Auto) 0, Neutrophils # (Auto) 5.8, Lymphocytes # (Auto) 0.3L, Monocytes # (Auto) 1.0, Eosinophils # (Auto) 0.0, Basophils # (Auto) 0.0, Sodium Level 132L, Potassium Level 4.4, Chloride Level 98, Carbon Dioxide Level 22, Anion Gap 12, Blood Urea Nitrogen 23H, Creatinine 0.71, Estimat Glomerular Filtration Rate > 60, BUN/Creatinine Ratio 32, Glucose Level 133H, Uric Acid 5.2, Calcium Level 7.4L, Corrected Calcium 9.2, Phosphorus Level 4.5, Magnesium Level 1.6, Total Bilirubin 1.4H, Aspartate Amino Transf (AST/SGOT) 45H, Alanine Aminotransferase (ALT/SGPT) 12, Alkaline Phosphatase 140H, Lactate Dehydrogenase 2316H, Total Protein 4.2L, Albumin 1.7L 08/09/19 06:09: Glucometer 123H Microbiology 07/29/19 Blood Culture - Final, Complete No growth 08/03/19 Gram Stain - Final, Complete 08/03/19 Body Fluid Culture - Final, Complete No growth 07/27/19 MRSA Screen - Final, Complete MRSA not isolated 08/03/19 Urine Culture - Final, Complete YEAST A/P: Assessment: Severe sepsis - Medical Services managing FUO Lymphoma per axillary lymph node biopsy on 08-02-19 Svce and Heme/Onc managing Chronic HFpEF Severe anemia of undetermined etiology (she reports chronic anemia for which she has had multiple eval in the past with unknown cause). Stool positive for occult blood during previous admission - Dr. Payne of Hematology/Oncology managing Thrombocytopenia, managed by the Med Svce/Hematology Svce SSS. Intermittent wandering atrial pacemaker during this admission. H/o PAF that has chronically been treated with flecainide (pt states years, but doesn't who started it when). OAC has been withheld d/t because of severe anemia of undetermined etiology (per recs of hospitalist during previous admission earlier this month) Echo of 07/11/19: LVEF 60-65%, mild MR, mod AI, mild to mod TR, grade 2 mccullough dysfunction, RVSP 47 mmHg MPI of Jul 13, 2019 showed no evidence of ischemia/infarction; LVEF 67% Elevated bili level Plan: * Complex management * Lymphoma has been diagnosed per axillary lymph node biopsy on 08-02-19 - Dr. 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 Payne this morning DAVINA TRONCOSO Aug 06, 2019 09:02 POS
--- NOTE | 2019-08-06 10:35 | NUR ---
Attempted to follow-up with pt today regarding poor PO intake. Several family members were present and noted this was not a good time, given pt's declining status. INTERVENTION: Added Ensure Enlive with meals BID to increase kcal intake. Provides 350 kcal and 13 g Pro per serving. Will continue to follow and reassess as pt needs and status change. Kosta Rodriguez, MS, RD, LD
--- NOTE | 2019-08-06 10:49 | Occ Therapy Progress Note ---
Therapy Progress Note OT evaluation received and chart reviewed. OT attempted to complete evaluation this AM. Pt had family present encouraging pt to participate but pt reported she was tired and would prefer for OT to come back this afternoon. OT will attempt again later. 1,visit 10:40 RYAN DUNNE OT Aug 06, 2019 10:49 POS
[2019-08-06 11:00] VITALS: BP 114/55
--- NOTE | 2019-08-06 11:34 | Progress Note ---
Standard Progress Note Progress Notes/Assess & Plan Date Seen by a Provider: Aug 06, 2019 Time Seen by a Provider: 11:28 Progress/Assessment & Plan 74-year-old female with FUO and extensive workup at several outside hospitals over the past 2+ months. Recent CT scan locally showed bilateral axillary lymphadenopathy as well as splenomegaly. Status post left axillary lymph node biopsy on 08/02/2019. 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 Also BCL-2 and BCL 6 positive. 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 Ki-67 almost 100 percent. Confirmatory tests for C-MYC pending. Discussed diagnosis and prognosis with the patient, , daughter and rest of the family. Patient herself was awake and oriented and participated in the discussions. She was feeling good this morning and ate breakfast. Discussed the treatment options and answered their questions. She will not be a candidate for hyper-CVAT type regimens. Patient wanted to try chemotherapy to see if this could improve her symptoms. We will try mini CHOP-R regimen because of her age. Recent echocardiogram showed normal left ventricular function. Patient has a right PICC line. We will start her on allopurinol today. I will obtain a CMP, LDH, uric acid and phosphorus levels on Friday morning. If she wishes to proceed with chemotherapy on Friday, I will make arrangements for the same. I will use growth factors to maintain white blood cell count in the normal range. Try to maintain hemoglobin more than 8 g/dL because of her age and functional status. Patient has been made a DO NOT RESUSCITATE per her and family's wishes. Continue rest of the treatment as you are doing. Will follow patient with you. Focused Exam Time of Focused Exam: 18:46 LEEROY BANERJEE Aug 06, 2019 11:34 POS
--- NOTE | 2019-08-06 11:37 | Progress Note - Cardiology ---
Cardiology SOAP Progress Note Subjective: Gen weakness and malaise No cp or palp or syncope Objective: I&O/Vital Signs 08/06/19 08/06/19 08/06/19 08/06/19 00:00 00:40 01:50 04:00 Temp 35.4 36.7 Pulse 69 70 72 Resp 20 18 B/P (MAP) 103/55 (71) 101/48 (65) Pulse Ox 92 92 94 O2 Delivery Vapotherm Vapotherm Vapotherm O2 Flow Rate 2.00 15.00 2.00 40.00 40.00 FiO2 35 08/06/19 08/06/19 08/06/19 08/06/19 06:54 07:00 08:00 08:00 Temp 36.0 Pulse 73 75 Resp 18 B/P (MAP) 108/52 (70) Pulse Ox 99 99 O2 Delivery Vapotherm High Flow N/C High Flow N/C O2 Flow Rate 15.00 8.00 8.00 FiO2 35 08/06/19 00:00 Intake Total 790 ml Output Total 850 ml Balance -60 ml Constitutional: AAO x 3, other (thin, frail) Respiratory: No accessory muscle use, No respiratory distress; chest expansion is symmetric, chest is bilaterally symmetric, other (fair air entry with poor inspiratory effort) Cardiovascular: regular rate-rhythm; No JVD; S1 and S2 Gastrointestional: No tender; soft, audible bowel sounds (hypoactive) Genital/Rectal: other (urinary catheter to DD with deborah urine) Extremities: other (mild to mod bilat LE and UE swelling) Neurologic/Psychiatric: grossly intact (moves extremities) Skin: warm/dry, jaundice, pallor, other (diffuse bruising to upper extremities bilat) Results/Procedures: Labs Laboratory Tests 08/05/19 15:59: Glucometer 113H 08/05/19 20:00: Glucometer 130H 08/06/19 05:00: White Blood Count 5.6, Red Blood Count 2.74L, Hemoglobin 8.1L, Hematocrit 25L, Mean Corpuscular Volume 92, Mean Corpuscular Hemoglobin 30, Mean Corpuscular Hemoglobin Concent 32, Red Cell Distribution Width 19.4H, Platelet Count 44L, Mean Platelet Volume 11.3H, Neutrophils (%) (Auto) 65, Lymphocytes (%) (Auto) 14, Monocytes (%) (Auto) 19H, Eosinophils (%) (Auto) 1, Basophils (%) (Auto) 1, Neutrophils # (Auto) 3.7, Lymphocytes # (Auto) 0.8L, Monocytes # (Auto) 1.1H, Eosinophils # (Auto) 0.0, Basophils # (Auto) 0.0, Sodium Level 131L, Potassium Level 4.2, Chloride Level 98, Carbon Dioxide Level 25, Anion Gap 8, Blood Urea Nitrogen 20H, Creatinine 0.65, Estimat Glomerular Filtration Rate > 60, BUN/Creatinine Ratio 31, Glucose Level 92, Calcium Level 7.2L, Phosphorus Level 4.2, Magnesium Level 1.7 Microbiology 07/29/19 Blood Culture - Final, Complete No growth 08/03/19 Gram Stain - Final, Resulted 08/03/19 Body Fluid Culture - Preliminary, Resulted No growth 07/27/19 MRSA Screen - Final, Complete MRSA not isolated 08/03/19 Urine Culture - Final, Complete YEAST Laboratory Tests 08/05/19 04:50 08/06/19 05:00 A/P: Assessment: Severe sepsis - Medical Services managing FUO Large B-cell lymphoma diagnosed during this hosp - Med Svce and Heme/Onc managing Chronic HFpEF Severe anemia of undetermined etiology (she reports chronic anemia for which she has had multiple eval in the past with unknown cause). Stool positive for occult blood during previous admission - Dr. Payne of Hematology/Oncology managing Thrombocytopenia, managed by the Med Svce/Hematology Svce SSS. Intermittent wandering atrial pacemaker during this admission. H/o PAF that has chronically been treated with flecainide (pt states years, but doesn't who started it when). OAC has been withheld d/t because of severe anemia of undetermined etiology (per recs of hospitalist during previous admission earlier this month) Echo of 07/11/19: LVEF 60-65%, mild MR, mod AI, mild to mod TR, grade 2 mccullough dysfunction, RVSP 47 mmHg MPI of Jul 13, 2019 showed no evidence of ischemia/infarction; LVEF 67% Elevated bili level Plan: * Complex management * Lymphoma has been diagnosed per axillary lymph node biopsy on 08-02-19 - Dr. Payne managing * Management of anemia and fever is per Medical and Oncology services * Reduce BB * Monitor labs * Replace lytes * Guarded prognosis * Palliative care consult has been made - awaiting family decision - has been changed to DNR status per pt wishes - family at the bedside waiting to discuss laborer marine terminal care decisions with Dr. Payne this morning * Dr Bar covering Card service over the weekend ANA FINLEY MD FACP FACC CCDS Aug 06, 2019 11:37 POS
--- NOTE | 2019-08-06 12:00 | Progress Note - Hospitalist ---
Subjective HPI/CC On Admission Date Seen by Provider: Aug 06, 2019 Time Seen by Provider: 11:55 fever, tachycardia, and hypotension Subjective/Events-last exam Pt reports doing well. Family at bedside and meeting with Dr Payne. Discussed prognosis with them and potential for chemotherapy. At this time she thinks she wants to start chemotherapy but woudl like time to discuss with her family. Focused Exam Time of Focused Exam: 18:46 Objective Exam Vital Signs Vital Signs Date Time Temp Pulse Resp B/P (MAP) Pulse Ox O2 Delivery O2 Flow Rate FiO2 08/06/19 08:00 36.0 75 18 108/52 (70) High Flow N/C 8.00 08/06/19 08:00 99 08/06/19 06:54 35 Capillary Refill : Less Than 3 SecondsLess Than 3 Seconds General Appearance: Chronically ill Respiratory: No Accessory Muscle Use, No Respiratory Distress Neurologic/Psychiatric: Alert, Oriented x3, Other (tearful at times, appropriately so) Skin: Jaundice Results/Procedures Lab Laboratory Tests 08/06/19 05:00 Patient resulted labs reviewed. Imaging: Reviewed Imaging Report Assessment/Plan Assessment and Plan Assess & Plan/Chief Complaint Hypoxemic respiratory failure Severe sepsis HCAP Bilateral pleural effusions -Cultures with no growth to date -Pulm following - Continue lasix Large B-cell lymphoma Fever of unknown origin Axillary lymphadenopathy Splenomegaly Lactic Acidosis, resolved - Afebrile, continue off antibiotics - Previously worked up for fever at , [facility], and [facility] - CT Chest/Abdomen/Pelvis revealed large left axillary lymph node, moderate splenomegaly - General surgery consulted s/p biopsy on 08/02- prelim report shows likely lymphoma - Await family decision regarding plan for chemotherapy, will start Friday if they decide to proceed Hypokalemia Hypomagnesemia Hypophosphatemia -Monitor and replace as needed Atrial fibrillation -Continue Flecainide and Coreg -Cardiology following -No anticoagulation due to recurrent GI bleeding and anemia Recurrent GI bleeding Chronic blood loss anemia - s/p transfusions, hgb improved Thrombocytopenia -Stable. ?splenomegaly -Continue to monitor DVT Prophylaxis: held due to recurrent GI bleeding Overall prognosis is poor. I will return this afternoon to talk with patient and family regarding decisions. Clinical Quality Measures DVT/VTE Risk/Contraindication: Risk Factor Score Per Nursin RFS Level Per Nursing on Admit: 4+=Very High Contraindications-Pharm: Other *list below* Other: Pt receiving blood transfusion, possible bleeding so no order for medication indicated. Pt does have SCD's ordered and on. ODELL JOHNSON MD Aug 06, 2019 12:00 POS
--- NOTE | 2019-08-06 12:26 | Physical Therapy Evaluation ---
PT Evaluation-General Medical Diagnosis Admission Date Jul 27, 2019 at 16:25 Medical Diagnosis: Severe Sepsis due to pneumonia Onset Date: Jul 29, 2019 Therapy Diagnosis Therapy Diagnosis: weakness Precautions Precautions/Isolations: Aspiration, Fall Prevention, Standard Precautions Weight Bear Status Right Lower Extremity: Right Weight Bearing/Tolerated Left Lower Extremity: Left Weight Bearing/Tolerated Referral Physician: Kathryn Reason for Referral: Evaluation/Treatment Medical History Pertinent Medical History: Atrial Fib, COPD, DM, HTN, Lymphoma, Rheumatoid Arthritis Current History EMS from [facility] after reports of lethargy, weakness, and increased temperature Reviewed History: Yes Social History Home: Assisted Living Prior Prior Level of Function SCALE: Activities may be completed with or without assistive devices. 6-Brfhrtnhmz-qbaitcx completes the activity by him/herself with no assistance from a helper. 5-Set-up or Clean-up Assistance-helper sets up or cleans up; patient completes activity. [place] assists only prior to or following the activity. 4-Supervision or Touching Assistance-helper provides verbal cues and/or touching/steadying and/or contact guard assistance as patient completes activity. Assistance may be provided throughout the activity or intermittently. 3-Partial/Moderate Assistance-helper does LESS THAN HALF the effort. [place] lifts, holds or supports trunk or limbs, but provides less than half the effort. 2-Substantial/Maximal Assistance-helper does MORE THAN HALF the effort. [place] lifts or holds trunk or limbs and provides more than half the effort. 5-Rvilepnhd-wdvtrr does ALL the effort. Patient does none of the effort to complete the activity. Or, the assistance of 2 or more helpers is required for the patient to complete the activity. If activity was not attempted, code reason: 7-Patient Refused. 9-Not Applicable-not attempted and the patient did not perform the activity before the current illness, exacerbation or injury. 10-Not Attempted due to Environmental Limitations-(lack of equipment, weather restraints, etc.). 88-Not Attempted due to Medical Conditions or Safety Concerns. Bed Mobility: 6 Transfers (B,C,W/C): 6 Gait: 6 Indoor Mobility (Ambulation): Independent PT Evaluation-Current Subjective Patient and family agree to transfer from bed to chair at this time. Family reports patient has not been up much since hospitalization. Patient reports no pain but feeling weak. Pain Numeric Pain Scale: 0-No Pain Location: No Pain Reported Objective Patient Orientation: Normal For Age Attachments: SCD's, Oxygen, Harper Catheter ROM/Strength ROM Lower Extremities WFL Strength Lower Extremities Grossly 3/5 bilaterally Integumentary/Posture Integumentary See nursing notes Bowel Incontinence: Yes Bladder Incontinence: Harper Cath Posture WFL Neuromuscular (Tone, Coordination, Reflexes) Grossly intact Sensory Vision: Wears Glasses Hearing: Hearing Aid/Aides Transfers Roll Left to Right (QC): 6 Sit to Lying (QC): 4 Lying to Sitting/Side of Bed(Q: 4 Sit to Stand (QC): 3 Chair/Lle-cl-Mmukw Xfer(QC): 2 Car Transfer (QC): 10 max A to stand and transfer Gait Walk 10 feet (QC): 88 Walk 50 ft with 2 Turns(QC): 88 Walk 150 ft (QC): 88 Walking 10ft/uneven surface-QC: 88 Wheelchair Training Does the Pt Use a Wheelchair?: No Wheel 50 ft with 2 turns (QC): 9 Wheel 150 ft (QC): 9 Type of Wheelchair: Manual Stairs 1 Step (curb) (QC): 88 4 Steps (QC): 88 12 Steps (QC): 9 Balance Sitting Static: Normal Sitting Dynamic: Normal Standing Static: Normal Standing Dynamic: Normal Picking up an Object (QC): 88 Assessment/Needs Patient able to perform bed mobility with touching assistance to sit to EOB. Required modA with use of FWW to stand from EOB. MaxA to transfer from bed to chair d/t weakness, patient was unable to stand for long enough time to complete transfer without max assistance. Patient was fatigued after transfer. Seated in recliner with legs elevated, all needs met, and family present. Rehab Potential: Guarded PT Prison Goals Burn Nurse Goals PT Burn Nurse Goals Time Frame: Aug 27, 2019 Roll Left & Right (QC): 5 Sit to Lying (QC): 5 Lying-Sitting on Side/Bed(QC): 5 Sit to Stand (QC): 5 Chair/Kxk-mq-Kswrz Xfer(QC): 5 Toilet Transfer (QC): 5 Car Transfer (QC): 5 Does the Patient Walk: No and Walking Goal IS indicated Walk 10 feet (QC): 5 Walk 50ft with 2 Turns (QC): 5 Walk 150 ft (QC): 9 Walking 10ft on Uneven Surface: 9 1 Step (curb) (QC): 9 4 Steps (QC): 9 12 Steps (QC): 9 Picking up an Object (QC): 9 Does the Pt use WC or Scooter?: No Type: N/A Type: N/A PT Plan Problem List Problem List: Activity Tolerance, Functional Strength, Safety, Balance, Gait, Transfer, Bed Mobility Treatment/Plan Treatment Plan: Continue Plan of Care Treatment Plan: Bed Mobility, Education, Functional Activity Sharad, Functional Strength, Gait, Safety, Therapeutic Exercise, Transfers Treatment Duration: Aug 27, 2019 Frequency: 6 times per week Estimated Hrs Per Day: .25 hour per day Patient and/or Family Agrees t: Yes Time/GCodes Time In: 1134 Time Out: 1144 Total Billed Treatment Time: 10 Total Billed Treatment 1 visit EVModC 10min CURTIS GARCIA PT Aug 06, 2019 12:26 POS
--- NOTE | 2019-08-06 13:13 | Occupational Therapy Eval ---
OT Evaluation-General/PLF Medical Diagnosis Admission Date Jul 27, 2019 at 16:25 Medical Diagnosis: Severe Sepsis due to pneumonia Onset Date: Jul 29, 2019 Therapy Diagnosis Therapy Diagnosis: Decreased functional mobility and ADL function Precautions Precautions/Isolations: Aspiration, Fall Prevention, Standard Precautions Safety Interventions: Bed Exit Alarm, Move Closer to Desk Weight Bear Status Weight Bearing Restriction: Weight Bearing/Tolerated Referral Physician: Kathryn Referral Reason: Activity Tolerance, Self Care, Evaluation/Treatment, Strengthening/ROM Medical History Pertinent Medical History: Atrial Fib, COPD, DM, HTN, Lymphoma, Rheumatoid Arthritis Additional Medical History a fib, HTN, valvular heart disease, RA, DM, anxiety/ depression. Current History severe sepsis, pneumonia, hypokalemia, lymphoma diagnosis (08/05/19) Reviewed History: Yes Social History Home: Single Level Current Living Status: Spouse Entry Into Home: Stairs With Railing Daughter (Hue) lives next door to pt and . ADL-Prior Level of Function SCALE: Activities may be completed with or without assistive devices. 4-Dzqlxuxove-mamegcu completes the activity by him/herself with no assistance from a helper. 5-Set-up or Clean-up Assistance-helper sets up or cleans up; patient completes activity. [place] assists only prior to or following the activity. 4-Supervision or Touching Assistance-helper provides verbal cues and/or touch ing/steadying and/or contact guard assistance as patient completes activity. Assistance may be provided throughout the activity or intermittently. 3-Partial/Moderate Assistance-helper does LESS THAN HALF the effort. [place] lifts, holds or supports trunk or limbs, but provides less than half the effort. 2-Substantial/Maximal Assistance-helper does MORE THAN HALF the effort. [place] lifts or holds trunk or limbs and provides more than half the effort. 9-Rmpkuponq-fpltus does ALL the effort. Patient does none of the effort to complete the activity. Or, the assistance of 2 or more helpers is required for the patient to complete the activity. If activity was not attempted, code reason: 7-Patient Refused. 9-Not Applicable-not attempted and the patient did not perform the activity before the current illness, exacerbation or injury. 10-Not Attempted due to Environmental Limitations-(lack of equipment, weather restraints, etc.). 88-Not Attempted due to Medical Conditions or Safety Concerns. ADL PLOF Comments Pt IND with use of AE at times (cane/ FWW) Self Care: Independent Functional Cognition: Independent DME/Equipment: Bath Chair, Grab Bars, Shower DME/Equipment Comments Cane, FWW, shower chair, walk in shower, grab bars. Occupation: retired Drive Self: Yes OT Current Status Subjective Pt seen in bed, agreeable to OT tx session. Pt alert and orientedx3, states no pain. Mental Status/Objective Patient Orientation: Person, Place, Situation, Normal For Age Attachments: Oxygen, Suprapubic Catheter Current Glasses/Contacts: Yes Hearing Aids: No Dentures/Partials: Yes Hand Dominance: Left Upper Extremity ROM Impaired, AROM to ~90* shoulder flexion, able to complete PROM full range. Upper Extremity Coordination WFL BUE Upper Extremity Sensation WFL no c/o paresthesias Upper Extremity Strength impaired 3/5 bilaterally Edema: R arm pitting edema anterior forearm/dorsum of hand; dorsum of B feet ADL-Treatment Eating (QC): 4 (Nurse provides assist during medication management; pt able to grab drink and drink with IND.) Oral Hygiene (QC): 7 Shower/Bathe Self (QC): 7 Upper Body Dressing (QC): 4 (Pt requires assist with tying back of gown.) Lower Body Dressing (QC): 7 On/Off Footwear (QC): 4 (Pt completes with SUP in bed.) Toileting Hygiene (QC): 7 Toilet Transfer (QC): 7 Other Treatments Pt completes evaluation in bed, denies out of bed activities at this time due to fatigue. Pt and state new dx of lymphoma on this date; pt and state they are doing "okay" with coping. Pt educated on OT role and goals, pt states goals are to increase strength. Pt given theraband to complete UE ex during the weekend during high-energy times. Pt completes footwear on/off in bed. Pt and educated on edematous limbs and correct placement. Pt's R UE elevated with pillows; pt states comfort and no pain in RUE. Pt left in bed, all needs met, call light in reach. OT Carpenter'S Assistant Goals Carpenter'S Assistant Goals Time Frame: Aug 13, 2019 Eating (QC): 6 Oral Hygiene (QC): 6 Toileting Hygiene (QC): 6 Shower/Bathe Self (QC): 5 Upper Body Dressing (QC): 6 Lower Body Dressing (QC): 6 On/Off Footwear (QC): 6 Additional Goals: 1-Demonstrate ADL Tasks, 2-Verbalize Understanding, 3-ImproveStrength/Sharad 1=Demonstrate adherence to instructed precautions during ADL tasks. 2=Patient will verbalize/demonstrate understanding of assistive devices/modifications for ADL. 3=Patient will improve strength/tolerance for activity to enable patient to perform ADL's. OT Education/Plan Problem List/Assessment Assessment: Decreased Activ Tolerance, Decreased UE Strength, Impaired Funct Balance, Impaired I ADL's, Impaired Self-Care Skills Discharge Recommendations Plan/Recommendations: Continue POC Treatment Plan/Plan of Care Treatment,Training & Education: Yes Patient would benefit from OT for education, treatment and training to promote independence in ADL's, mobility, safety and/or upper extremity function for ADL's. Plan of Care: ADL Retraining, Caregiver Training, Functional Mobility, UE Funct Exercise/Act Treatment Duration: Aug 13, 2019 Frequency: 5 times per week Estimated Hrs Per Day: .25 hour per day Agreement: Yes Rehab Potential: Guarded Time/GCodes Start Time: 12:50 Stop Time: 13:03 Total Time Billed (hr/min): 13 Billed Treatment Time 1ITA (13) TRINIDAD BARR OTR Aug 06, 2019 13:13 POS
[2019-08-06 15:47] VITALS: BP 141/91
[2019-08-06] MEDS: ACETAMINOPHEN 325 MG TABLET PO PRN ×2 (16:01→22:05)
[2019-08-06] MEDS: ACETAMINOPHEN 650 MG SUPP (TYLENOL) PR PRN (16:56)
[2019-08-06] MEDS: ALLOPURINOL 100 MG (ZYLOPRIM) TAB PO SCH (17:53)
[2019-08-06 19:29] VITALS: BP 120/56
[2019-08-07] VITALS (11 sets, daily range): BP systolic 101–178; BP diastolic 46–64
[2019-08-07] MEDS: RT-ALBUTEROL/IPRATROPIUM 3 ML (DUONEB) VIAL INH SCH ×7 (00:28→23:43)
[2019-08-07 04:51] LABS: BASOPHILS # (AUTO) 0.1 10^3/uL (0.0-0.1); BASOPHILS % (AUTO) 1 % (0-10); EOSINOPHILS % (AUTO) 1 % (0-10); HEMATOCRIT 21 % (35-52); LYMPHOCYTES # (AUTO) 0.6 X 10^3 (1.0-4.0); LYMPHOCYTES % (AUTO) 14 % (12-44); MEAN CORPUSCULAR HEMOGLOBIN 29 PG (25-34); MEAN CORPUSCULAR HGB CONC 32 G/DL (32-36); MEAN CORPUSCULAR VOLUME 92 FL (80-99); MEAN PLATELET VOLUME 10.7 FL (7.4-10.4); MONOCYTES # (AUTO) 0.7 X 10^3 (0.0-1.0); MONOCYTES % (AUTO) 16 % (0-12); NEUTROPHILS % (AUTO) 67 % (42-75); RED CELL DISTRIBUTION WIDTH 20.2 % (10.0-14.5); WHITE BLOOD COUNT 4.5 10^3/uL (4.3-11.0)
[2019-08-07 05:05] LABS: HEMOGLOBIN 6.7 G/DL (11.5-16.0); PLATELET COUNT 39 10^3/uL (130-400)
[2019-08-07 05:16] LABS: BUN/CREATININE RATIO 31; CALCIUM 6.9 MG/DL (8.5-10.1); CARBON DIOXIDE 23 MMOL/L (21-32); CHLORIDE 100 MMOL/L (98-107); CREATININE SERUM 0.59 MG/DL (0.60-1.30); GFR ESTIMATED > 60; GLUCOSE 93 MG/DL (70-105); MAGNESIUM 1.6 MG/DL (1.6-2.4); POTASSIUM 3.8 MMOL/L (3.6-5.0); SODIUM 132 MMOL/L (135-145)
--- NOTE | 2019-08-07 05:23 | NUR ---
CRITICAL LABS RESULTS RECEIVED AT 0505- HBG 6.[address] JOHNSON NOTIFIED AT 0520 NEW ORDERS FOR 2 UNITS PRBC ORDERED AND TO WATCH PLATELET COUNT.
[2019-08-07] MEDS: inSUlin ASPART (NovoLOG) 1 UNIT/0.01 ML (CHARGE PER UNIT) SC SCH ×4 (05:26→20:58)
[2019-08-07] MEDS ORDERED: NS IV 500 ML 500 ML IV SCH (05:30)
[2019-08-07] MEDS: KCL 20 MEQ TAB (K-DUR) PO SCH ×2 (05:43→05:44)
[2019-08-07] MEDS: LACTOBACILLUS ACIDOPHILUS (PROBIOTIC) CAPSULE PO SCH ×3 (05:43→18:28)
[2019-08-07] MEDS ORDERED: FUROSEMIDE 40 MG/4 ML INJ (LASIX) IVP NR (07:45)
--- NOTE | 2019-08-07 09:05 | Progress Note - Surgery ---
CLARISA BECK,MED STUDENT 08/07/19 0905: Subjective Date Seen by a Provider: Aug 07, 2019 Time Seen by a Provider: 09:10 Subjective/Events-last exam Patient has been her since the end of July and diagnosised with lymphoma in that time. She had an axillary lymph node dissection of the Left axillary by Dr. White on the 08/02. Patient says that she is does not feel worse than yesterday but is not feeling better. She says that she start Chemo on Friday with Dr. Haq and that Doctors have talked to her about possibly placing a port for chemo therapy because she has poor venous access. Review of Systems General: No Chills; Fatigue HEENT: Head Aches; No Dysphasia, No Sore Throat Pulmonary: Dyspnea, Cough Cardiovascular: Chest Pain, Edema Gastrointestinal: Constipation; No: Nausea, Vomiting, Abdominal Pain, Diarrhea Neurological: No: Weakness, Numbness, Change in speech Focused Exam Time of Focused Exam: 18:46 Objective Exam Vital Signs Date Time Temp Pulse Resp B/P (MAP) Pulse Ox O2 Delivery O2 Flow Rate FiO2 08/07/19 08:00 36.8 70 20 116/56 (76) 95 High Flow N/C 4.00 08/07/19 07:00 69 08/07/19 06:44 36.4 82 17 114/62 99 High Flow N/C 6.00 08/07/19 06:27 36.2 72 18 111/59 98 High Flow N/C 6.00 08/07/19 04:00 36.2 72 20 101/46 (64) 95 High Flow N/C 4.00 08/07/19 02:57 36.4 64 99 36 08/07/19 02:48 99 High Flow N/C 6.00 08/07/19 01:00 64 08/07/19 00:00 36.4 71 16 103/51 (68) 99 High Flow N/C 6.00 08/06/19 20:00 High Flow N/C 6.00 08/06/19 19:29 36.2 101 16 120/56 (77) 97 High Flow N/C 8.00 08/06/19 19:00 108 08/06/19 18:43 97 High Flow N/C 8.00 08/06/19 17:45 37.4 08/06/19 17:03 38.8 08/06/19 16:56 39.0 08/06/19 16:32 39.0 08/06/19 16:01 37.9 08/06/19 15:47 38.0 100 18 141/91 (108) 97 High Flow N/C 8.00 08/06/19 14:00 High Flow N/C 8.00 08/06/19 12:19 76 08/06/19 11:00 36.6 75 18 114/55 (74) High Flow N/C 8.00 I & O 08/07/19 07:00 Intake Total 870 ml Output Total 800 ml Balance 70 ml Capillary Refill : Less Than 3 SecondsLess Than 3 Seconds General Appearance: Chronically ill HEENT: PERRL/EOMI Neck: Non Tender, Supple Respiratory: Chest Non Tender, Lungs Clear, No Accessory Muscle Use, No Respiratory Distress Cardiovascular: Regular Rate, Rhythm; No No Edema; No Murmur Peripheral Pulses: 2+ Radial Pulses (R), 2+ Radial Pulses (L) Gastrointestinal: normal bowel sounds, non tender, soft, tenderness (periumbical pain to palpation ) Extremity: Calf Tenderness, Pedal Edema, Swelling (diffuse, anasarca) Neurologic/Psychiatric: Alert, Oriented x3, Normal Mood/Affect, Other (tearful at times, appropriately so) Skin: Normal Color, Warm/Dry Lymphatic: Other (left axillary lymph node) Results Lab Laboratory Tests 08/06/19 11:25: Glucometer 115H 08/06/19 12:34: 08/06/19 15:53: Glucometer 110 08/06/19 20:40: Glucometer 122H 08/07/19 04:35: White Blood Count 4.5, Red Blood Count 2.29L, Hemoglobin 6.7*L, Hematocrit 21L, Mean Corpuscular Volume 92, Mean Corpuscular Hemoglobin 29, Mean Corpuscular Hemoglobin Concent 32, Red Cell Distribution Width 20.2H, Platelet Count 39*L, Mean Platelet Volume 10.7H, Neutrophils (%) (Auto) 67, Lymphocytes (%) (Auto) 14, Monocytes (%) (Auto) 16H, Eosinophils (%) (Auto) 1, Basophils (%) (Auto) 1, Neutrophils # (Auto) 3.0, Lymphocytes # (Auto) 0.6L, Monocytes # (Auto) 0.7, Eosinophils # (Auto) 0.0, Basophils # (Auto) 0.1, Sodium Level 132L, Potassium Level 3.8, Chloride Level 100, Carbon Dioxide Level 23, Anion Gap 9, Blood Urea Nitrogen 18, Creatinine 0.59L, Estimat Glomerular Filtration Rate > 60, BUN/ Creatinine Ratio 31, Glucose Level 93, Calcium Level 6.9L, Phosphorus Level 4.0, Magnesium Level 1.6 Microbiology 07/29/19 Blood Culture - Final, Complete No growth 08/03/19 Gram Stain - Final, Complete 08/03/19 Body Fluid Culture - Final, Complete No growth 07/27/19 MRSA Screen - Final, Complete MRSA not isolated 08/03/19 Urine Culture - Final, Complete YEAST Assessment/Plan Assessment/Plan Assessment/Plan fever, night sweats, weight loss, left axillary adenopathy s/p superficial lymphadenectomy for bulky disease. Anemia thrombocytopenia Lymphoma - starts chemo on friday poor venous access Consider placement of port for chemo. Medical management per Dr. Peralta and oncology Clinical Quality Measures DVT/VTE Risk/Contraindication: Risk Factor Score Per Nursin RFS Level Per Nursing on Admit: 4+=Very High Contraindications-Pharm: Other *list below* Other: Pt receiving blood transfusion, possible bleeding so no order for medication indicated. Pt does have SCD's ordered and on. HIEU RODRIGUEZ DO 08/07/19 1154: Subjective Time Seen by a Provider: 10:49 Subjective/Events-last exam Pt seen and examined, states she is doing ok and wants to try chemotherapy. Objective Exam General Appearance: No Apparent Distress Assessment/Plan Assessment/Plan Assessment/Plan Lymphoma Venous Insufficiency Anemia and Thrombocytopenia Pt is a very poor surgical candidate because she is so ill and has very low platelets. Pt at this point wants to try chemo and then make a decision nursing home. She has a PICC line in and it would be best to use that first and then reassess if she wants to continue; regarding Port placment. Rosalia-cath would be the best long'-term solution if she continues with chemotherapy. Supervisory-Addendum Brief Verification & Attestation Participated in pt care: history, MDM, physical Personally performed: exam, history, MDM Care discussed with: Medical Student Procedures: n/a Verification and Attestation of Medical Student E/M Service A medical student performed and documented this service in my presence. I reviewed and verified all information documented by the medical student and made modifications to such information, when appropriate. I personally performed the physical exam and medical decision making. Hieu Rodriguez, Aug 07, 2019,11:55 CLARISA BECK,MED STUDENT Aug 07, 2019 09:05 HIEU PAYNE DO Aug 07, 2019 11:54 POS
[2019-08-07] MEDS: PANTOPRAZOLE 40 MG (PROTONIX) VIAL IV SCH (09:15)
[2019-08-07] MEDS: CARVEDILOL 6.25 MG (COREG) TAB PO SCH ×2 (09:16→20:54)
[2019-08-07] MEDS: ALLOPURINOL 100 MG (ZYLOPRIM) TAB PO SCH ×2 (09:16→18:28)
[2019-08-07] MEDS: FLECAINIDE 100 MG (TAMBOCOR) TAB PO SCH ×2 (09:19→20:54)
--- NOTE | 2019-08-07 09:27 | Cardiology Progress Note ---
Subjective Date Seen by Provider: Aug 07, 2019 Time Seen by Provider: 09:25 Subjective/Events-last exam Patient is laying down in bed, denied any chest pain. Receiving blood transfusion Review of Systems General: No Chills, No Night Sweats, No Fatigue, No Malaise, No Appetite, No Other HEENT: No Head Aches, No Visual Changes, No Eye Pain, No Ear Pain, No Dysphasia, No Sinus Congestion, No Post Nasal Drip, No Sore Throat, No Other Pulmonary: No Dyspnea, No Cough, No Pleuritic Chest Pain, No Other Cardiovascular: No: Chest Pain, Palpitations, Orthopnea, Paroxysmal Noc. Dyspnea, Edema, Lt Headedness, Other Focused Exam Time of Focused Exam: 18:46 Objective-Cardiology Exam Last Set of Vital Signs Vital Signs 08/07/19 08/07/19 02:57 08:00 Temp 36.8 Pulse 70 Resp 20 B/P (MAP) 116/56 (76) Pulse Ox 95 O2 Delivery High Flow N/C O2 Flow Rate 4.00 FiO2 36 Capillary Refill : Less Than 3 SecondsLess Than 3 Seconds I&O Intake and Output 08/07/19 00:00 Intake Total 1020 ml Output Total 1050 ml Balance -30 ml Intake Oral 1020 ml Output Urine Total 1050 ml # Bowel Movements 1 General: Alert, Oriented X3, Cooperative HEENT: Atraumatic, PERRLA Neck: Supple, No JVD, No Thyromegaly Lungs: Clear to Auscultation, Normal Air Movement Heart: Regular Rate, Normal S1, Normal S2, No Murmurs Abdomen: Normal Bowel Sounds, Soft, No Tenderness, No Hepatosplenomegaly, No Masses Extremities: No Clubbing, No Cyanosis, No Edema, Normal Pulses, No Tenderness/Swelling Skin: No Rashes, No Breakdown, No Significant Lesion Neuro: Normal Gait, Normal Speech, Strength at 5/5 X4 Ext, Normal Tone, Sensation Intact Psych/Mental Status: Mental Status NL, Mood NL Results Lab Laboratory Tests 08/07/19 04:35 A/P-Cardiology Admission Diagnosis Sinus node dysfunction Paroxysmal atrial fibrillation Anemia Lymphoma Assessment/Plan Lymphoma, diagnosed recently, planning to initiate chemotherapy, managed by Dr. Sheikh Congestive heart failure, chronic left ventricular diastolic dysfunction, compensated. Continue to monitor Anemia, receiving blood transfusion, managed by primary care team next Sinus os dysfunction, paroxysmal atrial fibrillation, intermittent wandering atrial pacemaker. Has been on flecainide as an outpatient Sepsis, managed by primary care physician Currently off oral anticoagulation due to severe anemia. Clinical Quality Measures DVT/VTE Risk/Contraindication: Risk Factor Score Per Nursin RFS Level Per Nursing on Admit: 4+=Very High Contraindications-Pharm: Other *list below* Other: Pt receiving blood transfusion, possible bleeding so no order for medication indicated. Pt does have SCD's ordered and on. VIRGIL POLANCO MD Aug 07, 2019 09:27 POS
--- NOTE | 2019-08-07 09:55 | Progress Note - Hospitalist ---
Subjective HPI/CC On Admission Date Seen by Provider: Aug 08, 2019 Time Seen by Provider: 09:15 fever, tachycardia, and hypotension Subjective/Events-last exam Pt reports feeling better today. Currently getting blood. Discussed plans for the week again and she again is in agreement with plan for chemotherapy. Focused Exam Time of Focused Exam: 18:46 Objective Exam Vital Signs Vital Signs Date Time Temp Pulse Resp B/P (MAP) Pulse Ox O2 Delivery O2 Flow Rate FiO2 08/08/19 09:57 94 High Flow N/C 4.00 08/08/19 08:00 36.4 88 18 167/92 (117) 08/07/19 02:57 36 Capillary Refill : Less Than 3 SecondsLess Than 3 Seconds General Appearance: No Apparent Distress, Chronically ill Respiratory: No Accessory Muscle Use, No Respiratory Distress, Decreased Breath Sounds Cardiovascular: Regular Rate, Rhythm, No Murmur Gastrointestinal: Normal Bowel Sounds, Soft Extremity: Pedal Edema, Swelling (anasarca) Neurologic/Psychiatric: Alert, Oriented x3, Other Results/Procedures Lab Laboratory Tests 08/08/19 04:33 Patient resulted labs reviewed. Imaging: Reviewed Imaging Report Assessment/Plan Assessment and Plan Assess & Plan/Chief Complaint Large B-cell lymphoma Fever of unknown origin Axillary lymphadenopathy Splenomegaly Lactic Acidosis, resolved - Afebrilesince 08/06, continue off antibiotics - Previously worked up for fever at , [facility], and [facility] - CT Chest/Abdomen/Pelvis revealed large left axillary lymph node, moderate splenomegaly - General surgery consulted s/p biopsy on 08/02- report shows b cell lymphoma - Plan to start chemo on friday Hypoxemic respiratory failure Severe sepsis- resolved HCAP Bilateral pleural effusions -Cultures with no growth to date -Pulm following - Continue lasix Hypokalemia Hypomagnesemia Hypophosphatemia -Monitor and replace as needed Atrial fibrillation -Continue Flecainide and Coreg -Cardiology following -No anticoagulation due to recurrent GI bleeding and anemia Recurrent GI bleeding Chronic blood loss anemia - s/p transfusions again, Hgb improved post transfusion Thrombocytopenia -Dropped yesterday- trend- not bleeding so no indication for transfusions -Continue to monitor DVT Prophylaxis: held due to recurrent GI bleeding Overall prognosis remains poor. Palliative care consulted. Clinical Quality Measures DVT/VTE Risk/Contraindication: Risk Factor Score Per Nursin RFS Level Per Nursing on Admit: 4+=Very High Contraindications-Pharm: Other *list below* Other: Pt receiving blood transfusion, possible bleeding so no order for medication indicated. Pt does have SCD's ordered and on. ODELL JOHNSON MD Aug 07, 2019 09:55 POS
[2019-08-07 10:45] LABS: HEPATITIS C ANTIBODY C Non-Reactive (Non-Reactive)
--- NOTE | 2019-08-07 10:45 | NUR ---
AIDE NOTIFIED THIS RN OF PT BLOOD SUGAR 59. AIDE STATED PT HAD REQUESTED ICE CREAM AND ATE SOME ALREADY. PT WAS GIVEN OJ AND PEANUT BUTTER CRACKERS TO SNACK ON. WILL RECHECK BLOOD SUGAR AGAIN IN 10-15MIN. AT BEDSIDE
--- NOTE | 2019-08-07 11:26 | Physical Therapy Progress Note ---
Therapy Progress Note Patient refused treatment this morning. She says she is tired and would rather not participate. Will try back Friday. RENEE WHITE PT Aug 07, 2019 11:26 POS
[2019-08-07] MEDS ORDERED: methylPREDNISolone 125 MG (Solu-MEDROL) VIAL IVP NR (12:22)
--- NOTE | 2019-08-07 12:28 | NUR ---
PT BP 178/60 TEMP 37.8. PT APPEARS FATIGUED UNABLE TO TAKE PO MEDS AT THIS TIME. HAVING CHILLS AND REQUESTING TO REST. PT DECLINED LUNCH. DR JOHNSON UPDATED ON PT. ORDER WAS RECEIVED TO HOLD SECOND UNIT OF BLOOD AT THIS TIME. REPEAT HGB NOW. NO OTHER NEW ORDERS RECEIVED. WILL GIVE PRN TYLENOL SUPP AND RECHECK BLOOD SUGAR FINGER STICK.
[2019-08-07] MEDS: ACETAMINOPHEN 650 MG SUPP (TYLENOL) PR PRN (12:45)
--- NOTE | 2019-08-07 12:54 | Oncology Progress Note ---
Subjective Time Seen by a Provider: 12:40 Subjective/Events-last exam Pt is having fever, chills and shaking, very uncomfortable when I walked into her room. Mental status change and very slow in conversation per her . She is also getting RBC transfusion. Data Review Labs Laboratory Tests 08/07/19 04:35 Laboratory Tests 08/04/19 14:01: 08/04/19 14:05: Arterial Blood pH 7.49H, Arterial Blood Partial Pressure CO2 31L, Arterial Blood Partial Pressure O2 161H 08/04/19 16:02: 08/04/19 20:02: Glucometer 117H 08/05/19 04:50: Red Blood Count 2.52L, Hemoglobin 7.4L, Hematocrit 23L, Red Cell Distribution Width 18.7H, Platelet Count 57L, Mean Platelet Volume 11.4H, Lymphocytes (%) (Auto) 9L, Monocytes (%) (Auto) 19H, Lymphocytes # (Auto) 0.5L, Sodium Level 128L, Chloride Level 96L, Creatinine 0.59L, Calcium Level 7.0L 08/05/19 10:28: 08/05/19 15:59: Glucometer 113H 08/05/19 20:00: Glucometer 130H 08/06/19 05:00: Red Blood Count 2.74L, Hemoglobin 8.1L, Hematocrit 25L, Red Cell Distribution Width 19.4H, Platelet Count 44L, Mean Platelet Volume 11.3H, Monocytes (%) (Auto) 19H, Lymphocytes # (Auto) 0.8L, Monocytes # (Auto) 1.1H, Sodium Level 131L, Blood Urea Nitrogen 20H, Calcium Level 7.2L 08/06/19 11:25: Glucometer 115H 08/06/19 12:34: 08/06/19 15:53: 08/06/19 20:40: Glucometer 122H 08/07/19 04:35: Red Blood Count 2.29L, Hemoglobin 6.7*L, Hematocrit 21L, Red Cell Distribution Width 20.2H, Platelet Count 39*L, Mean Platelet Volume 10.7H, Monocytes (%) (Auto) 16H, Lymphocytes # (Auto) 0.6L, Sodium Level 132L, Creatinine 0.59L, Calcium Level 6.9L 08/07/19 10:43: Glucometer 59*L 08/07/19 11:43: Physical Exam Vital Signs Vital Signs - First Documented 08/01/19 08/01/19 08/01/19 08/04/19 00:00 00:03 00:19 12:50 Temp 37.5 Pulse 86 Resp 10 B/P (MAP) 121/53 (75) Pulse Ox 96 O2 Delivery Nasal Cannula O2 Flow Rate 2.00 FiO2 50 Capillary Refill : Less Than 3 SecondsLess Than 3 Seconds Height, Weight, BMI Height: '" Weight: lbs. oz. kg; 21.00 BMI Method:Estimated General Appearance: Other (fever chills) HEENT: PERRL/EOMI Neck: Non Tender, Supple Respiratory: No Accessory Muscle Use, No Respiratory Distress Cardiovascular: Tachycardia Gastrointestinal: Non Tender, Soft Extremity: Non Tender, No Calf Tenderness, No Pedal Edema Neurologic/Psychiatric: Disoriented Focused Exam Time of Focused Exam: 18:46 Impression & Plan Impression & Plan 74-year-old female with FUO and extensive workup at several outside hospitals over the past 2+ months and finally found to have 1. Diffuse large B cell lymphoma: Recent CT scan locally showed bilateral axillary lymphadenopathy as well as splenomegaly. Status post left axillary lymph node biopsy on 08/02/2019. 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 Also BCL-2 and BCL 6 positive. 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 Ki-67 almost 100 percent. Confirmatory tests for C-MYC pending. 2. B symptoms from lymphoma: Dr Payne discussed with patient and her family about the CHOP-R treatment, possible Friday. I will give her a dose of Solumedral 125mg today for her chills and shaking from the fever. It will also helpful for her thrombocytopenia today. She has an allergy to Prednisone in her chart but patient and family are not able to give any details of the allergic reaction to the Predisone. We need to closely monitoring. She will also get her Tylenol PRN. 3. Patient has been made a DO NOT RESUSCITATE per her and family's wishes. 4. Anemia and thrombocytopenia. RBC transfusion today to keep Hb above [address] Payne. Clinical Quality Measures DVT/VTE Risk/Contraindication: Risk Factor Score Per Nursin RFS Level Per Nursing on Admit: 4+=Very High Contraindications-Pharm: Other *list below* Other: Pt receiving blood transfusion, possible bleeding so no order for medication indicated. Pt does have SCD's ordered and on. CARMEN BRIDGES MD Aug 07, 2019 12:54 POS
--- NOTE | 2019-08-07 14:07 | Pulmonary Progress Note ---
Sepsis Event Evaluation Height, Weight, BMI Height: '" Weight: lbs. oz. kg; 21.00 BMI Method:Estimated Focused Exam Time of Focused Exam: 18:46 Exam Exam Vital Signs Date Time Temp Pulse Resp B/P (MAP) Pulse Ox O2 Delivery O2 Flow Rate FiO2 08/07/19 12:15 37.8 178/60 (99) 08/07/19 11:36 37.2 79 18 High Flow N/C 4.00 08/07/19 09:46 36.7 71 18 144/64 (90) 93 High Flow N/C 4.00 08/07/19 09:42 93 High Flow N/C 4.00 08/07/19 08:00 36.8 70 20 116/56 (76) 95 High Flow N/C 4.00 08/07/19 07:00 69 08/07/19 06:44 36.4 82 17 114/62 99 High Flow N/C 6.00 08/07/19 06:27 36.2 72 18 111/59 98 High Flow N/C 6.00 08/07/19 04:00 36.2 72 20 101/46 (64) 95 High Flow N/C 4.00 08/07/19 02:57 36.4 64 99 36 08/07/19 02:48 99 High Flow N/C 6.00 08/07/19 01:00 64 08/07/19 00:00 36.4 71 16 103/51 (68) 99 High Flow N/C 6.00 08/06/19 20:00 High Flow N/C 6.00 08/06/19 19:29 36.2 101 16 120/56 (77) 97 High Flow N/C 8.00 08/06/19 19:00 108 08/06/19 18:43 97 High Flow N/C 8.00 08/06/19 17:45 37.4 08/06/19 17:03 38.8 08/06/19 16:56 39.0 08/06/19 16:32 39.0 08/06/19 16:01 37.9 08/06/19 15:47 38.0 100 18 141/91 (108) 97 High Flow N/C 8.00 I & O 08/07/19 07:00 Intake Total 870 ml Output Total 800 ml Balance 70 ml Height & Weight Height: '" Weight: lbs. oz. kg; 21.00 BMI Method:Estimated General Appearance: Other (fever chills) HEENT: PERRL/EOMI Neck: Non Tender, Supple Respiratory: No Accessory Muscle Use, No Respiratory Distress Cardiovascular: Tachycardia Capillary Refill: Less Than 3 Seconds Peripheral Pulses: 2+ Radial Pulses (R), 2+ Radial Pulses (L) Gastrointestinal: normal bowel sounds, non tender, soft, tenderness (periumbical pain to palpation ) Extremity: Non Tender, No Calf Tenderness, No Pedal Edema Neurologic/Psychiatric: Disoriented Skin: Normal Color, Warm/Dry Lymphatic: Other (left axillary lymph node) Results Lab Laboratory Tests 08/06/19 05:00 08/07/19 04:35 08/07/19 13:25 Assessment/Plan Assessment/Plan UTI with sepsis and PNA - Merrem has been d/c'd -Hernandez cultures reviewed -MRSA swab neg Pulmonary edema with bilateral pleural effusions -S/p right thoracentesis 950cc drained. -CT chest reviewed -Check Echo -Echo of 07/11/19: LVEF 60-65%, mild MR, mod AI, mild to mod TR, grade 2 mccullough dysfunction, RVSP 47 mmHg Anemia Lung nodule -Will need out pt serial chest cts Fever of unknown origin Possible lymphoma s/p axillary node bx -Cytology pending Thombocytopenia Mild anemia -s/p 1 unit PRBC -Check occult stool - was positive last hospitalization -Pt is colonoscopy on Friday in [place] Connelly DO Aug 07, 2019 14:06 POS
--- NOTE | 2019-08-07 15:55 | NUR ---
PT FAMILY EXPRESSED CONCERNED ABOUT PT RIGHT ARM. STATED ONE OF THE DRS TALKED ABOUT POSSIBLE BLOOD CLOT IN THE RIGHT ARM YESTERDAY. DISCUSSED WITH FAMILY MEASUREMENTS TAKEN THIS AM 25CM THAT WERE THE SAME CHARTED YESTERDAY. PER AIDE RIGHT ARM LESS SWOLLEN TODAY THEN YESTERDAY. HAND WAS NOTED TO HAVE INCREASED IN SWELLING AT THIS TIME SINCE THIS AM. ARM HAS BEEN ELEVATED ON TWO-THREE PILLOWS PT WOULD ALLOW FOR MOST OF THE DAY ALSO. DR JOHNSON NOTIFIED VIA PHONE OF CONCERNS OF RIGHT ARM. DUAL LUMENS FLUSH WITHOUT DIFFICULTY WITH GOOD BLOOD RETURN. NOTIFIED DR OF HGB 9.[address] JOHNSON REQUESTED THIS RN NOTIFY DR BRIDGES OF SWOLLEN ARM. NO NEW ORDERS RECEIVED.
--- NOTE | 2019-08-07 16:00 | NUR ---
DR BRIDGES NOTIFIED OF +3 EDEMA TO RIGHT ARM AND FAMILY CONCERNS. DR BRIDGES REQUESTED D/T PLATELETS SO LOW TO MONITOR PT RIGHT ARM CLOSELY FOR NOW AND CONTINUE WITH MEASUREMENTS. FAMILY WAS NOTIFIED. RIGHT ARM ELEVATED AT THIS TIME.
--- NOTE | 2019-08-07 20:59 | NUR ---
PT'S HS ACCUCHECK READ 210. PCT REPORTED SHE HAD EATEN A BAKED POTATO FOR SUPPER. ACCORDING HER TO S/S B SHE WAS TO BE ADMIN 6 U OF NOVOLOG. PT HAS BEEN RUNNING LOW DURING HOSPITAL STAY. DR JOHNSON MADE AWARE AND ORDERED TO HOLD NOVOLOG PT'S BLOOD SUGAR CAN DROP DURING THE NIGHT.
--- NOTE | 2019-08-07 22:05 | NUR ---
PT DID NOT HAVE BMP OR CBC ORDERED FOR [address] JOHNSON NOTIFIED AND ORDERED BMP AND CBC FOR 08/08 0500
[2019-08-08] VITALS: BP 113/54
[2019-08-08] MEDS: RT-ALBUTEROL/IPRATROPIUM 3 ML (DUONEB) VIAL INH SCH ×5 (03:14→19:13)
[2019-08-08 04:00] VITALS: BP 100/54
[2019-08-08 04:42] LABS: BASOPHILS % (AUTO) 0 % (0-10); EOSINOPHILS % (AUTO) 0 % (0-10); HEMATOCRIT 25 % (35-52); LYMPHOCYTES # (AUTO) 0.5 X 10^3 (1.0-4.0); LYMPHOCYTES % (AUTO) 9 % (12-44); MEAN CORPUSCULAR HEMOGLOBIN 29 PG (25-34); MEAN CORPUSCULAR HGB CONC 32 G/DL (32-36); MEAN CORPUSCULAR VOLUME 91 FL (80-99); MEAN PLATELET VOLUME 11.9 FL (7.4-10.4); MONOCYTES # (AUTO) 0.7 X 10^3 (0.0-1.0); MONOCYTES % (AUTO) 13 % (0-12); NEUTROPHILS # (AUTO) 4.4 X 10^3 (1.8-7.8); NEUTROPHILS % (AUTO) 79 % (42-75); PLATELET COUNT 56 10^3/uL (130-400); RED CELL DISTRIBUTION WIDTH 19.7 % (10.0-14.5); WHITE BLOOD COUNT 5.5 10^3/uL (4.3-11.0)
[2019-08-08 05:03] LABS: BUN/CREATININE RATIO 37; CALCIUM 7.3 MG/DL (8.5-10.1); CARBON DIOXIDE 23 MMOL/L (21-32); CHLORIDE 97 MMOL/L (98-107); CREATININE SERUM 0.57 MG/DL (0.60-1.30); GFR ESTIMATED > 60; GLUCOSE 143 MG/DL (70-105); POTASSIUM 4.2 MMOL/L (3.6-5.0); SODIUM 132 MMOL/L (135-145)
[2019-08-08] MEDS: KCL 20 MEQ TAB (K-DUR) PO SCH ×2 (05:17→05:50)
[2019-08-08] MEDS: inSUlin ASPART (NovoLOG) 1 UNIT/0.01 ML (CHARGE PER UNIT) SC SCH ×4 (05:17→20:31)
[2019-08-08] MEDS: LACTOBACILLUS ACIDOPHILUS (PROBIOTIC) CAPSULE PO SCH ×3 (05:50→17:47)
[2019-08-08 08:00] VITALS: BP 167/92
--- NOTE | 2019-08-08 08:21 | Diagnostic Imaging Report ---
Clinical indication: Patient choking on thin liquids. Exam: Portable chest x-ray upright view. Comparisons: Chest x-ray dated 08/04/2019. Findings: Right PICC line again seen in similar position. Pulmonary vasculature and cardiac silhouettes within normal limits. There are bilateral pleural effusions again seen which appears to have slightly progressed on the left. There is improved aeration of both upper lung cortez. There is residual discoid atelectasis in the right midlung field and bibasilar atelectasis and/or infiltrates. The remainder of this exam shows no significant interval change compared to the prior study of comparison. Impression: 1: There is bilateral pleural effusions which appear to have slightly progressed on the left. 2: There is improved aeration of both upper lungs with residual right midlung field atelectasis and bibasilar mild atelectasis and/or infiltrate. Dictated by: Dictated on workstation # [id number]
--- NOTE | 2019-08-08 08:59 | Cardiology Progress Note ---
Subjective Date Seen by Provider: Aug 08, 2019 Time Seen by Provider: 08:57 Subjective/Events-last exam Patient is in a chair, no new complaint, no chest pain or palpitation Review of Systems General: No Chills, No Night Sweats, No Fatigue, No Malaise, No Appetite, No Other HEENT: No Head Aches, No Visual Changes, No Eye Pain, No Ear Pain, No Dysphasia, No Sinus Congestion, No Post Nasal Drip, No Sore Throat, No Other Pulmonary: Dyspnea; No Cough, No Pleuritic Chest Pain, No Other Cardiovascular: No: Chest Pain, Palpitations, Orthopnea, Paroxysmal Noc. Dyspnea, Edema, Lt Headedness, Other Focused Exam Time of Focused Exam: 18:46 Objective-Cardiology Exam Last Set of Vital Signs Vital Signs 08/07/19 08/08/19 08/08/19 02:57 04:00 07:00 Temp 36.2 Pulse 90 Resp 20 B/P (MAP) 100/54 (69) Pulse Ox 91 O2 Delivery Nasal Cannula O2 Flow Rate 4.00 FiO2 36 Capillary Refill : Less Than 3 SecondsLess Than 3 Seconds I&O Intake and Output 08/08/19 00:00 Intake Total 650 ml Output Total 2050 ml Balance -1400 ml Intake Oral 650 ml Output Urine Total 2050 ml # Bowel Movements 1 General: Alert, Oriented X3, Cooperative HEENT: Atraumatic, PERRLA Neck: Supple, No JVD, No Thyromegaly Lungs: Clear to Auscultation, Normal Air Movement Heart: Regular Rate, Normal S1, Normal S2, No Murmurs Abdomen: Normal Bowel Sounds, Soft, No Tenderness, No Hepatosplenomegaly, No Masses Extremities: No Clubbing, No Cyanosis, No Edema, Normal Pulses, No Tenderness/Swelling Skin: No Rashes, No Breakdown, No Significant Lesion Neuro: Normal Gait, Normal Speech, Strength at 5/5 X4 Ext, Normal Tone, Sensation Intact Psych/Mental Status: Mental Status NL, Mood NL Results Lab Laboratory Tests 08/07/19 13:25 08/08/19 04:33 A/P-Cardiology Admission Diagnosis Sinus node dysfunction Paroxysmal atrial fibrillation Anemia Lymphoma Assessment/Plan Lymphoma, diagnosed recently, reporting that she will be starting on chemotherapy, managed by Dr. Sheikh Congestive heart failure, chronic left ventricular diastolic dysfunction, compensated. Continue to monitor Anemia, receiving blood transfusion, managed by primary care team next Sinus os dysfunction, paroxysmal atrial fibrillation, intermittent wandering atr ial pacemaker. Has been on flecainide as an outpatient Sepsis, managed by primary care physician Currently off oral anticoagulation due to severe anemia. Clinical Quality Measures DVT/VTE Risk/Contraindication: Risk Factor Score Per Nursin RFS Level Per Nursing on Admit: 4+=Very High Contraindications-Pharm: Other *list below* Other: Pt receiving blood transfusion, possible bleeding so no order for medication indicated. Pt does have SCD's ordered and on. VIRGIL POLANCO MD Aug 08, 2019 08:59 POS
--- NOTE | 2019-08-08 09:28 | Progress Note - Surgery ---
CLARISA BECK,MED STUDENT 08/08/19 0928: Subjective Date Seen by a Provider: Aug 08, 2019 Time Seen by a Provider: 08:55 Subjective/Events-last exam Patient seen and examined. She says that she is feeling better but is still feeling a little SOB. Her only questions were regarding chemotherapy that she starts on Friday, she did not voice any other complaints or concerns during interview or when asked. Review of Systems General: No Chills; Fatigue Pulmonary: Dyspnea, Cough Cardiovascular: Edema; No: Chest Pain, Palpitations Gastrointestinal: No: Nausea, Vomiting Focused Exam Time of Focused Exam: 18:46 Objective Exam Vital Signs Date Time Temp Pulse Resp B/P (MAP) Pulse Ox O2 Delivery O2 Flow Rate FiO2 08/08/19 07:00 90 08/08/19 04:00 36.2 69 20 100/54 (69) 91 Nasal Cannula 4.00 08/08/19 03:15 98 High Flow N/C 4.00 08/08/19 01:00 77 08/08/19 00:00 36.2 71 20 113/54 (73) 96 High Flow N/C 4.00 08/07/19 23:43 98 High Flow N/C 4.00 08/07/19 20:00 93 High Flow N/C 4.00 08/07/19 19:31 35.6 79 22 104/53 (70) 94 High Flow N/C 4.00 08/07/19 19:11 99 High Flow N/C 4.00 08/07/19 19:00 80 08/07/19 15:35 36.6 85 20 108/53 (71) 94 High Flow N/C 4.00 08/07/19 14:06 37.6 08/07/19 13:30 37.6 08/07/19 13:00 89 08/07/19 12:15 37.8 178/60 (99) 08/07/19 11:36 37.2 79 18 High Flow N/C 4.00 08/07/19 09:46 36.7 71 18 144/64 (90) 93 High Flow N/C 4.00 08/07/19 09:42 93 High Flow N/C 4.00 08/07/19 09:35 36.7 71 18 144/64 Room Air I & O 08/08/19 07:00 Intake Total 500 ml Output Total 1950 ml Balance -1450 ml Capillary Refill : Less Than 3 SecondsLess Than 3 Seconds General Appearance: Chronically ill, Moderate Distress, Other HEENT: PERRL/EOMI; No Scleral Icterus (L), No Scleral Icterus (R) Neck: Non Tender, Supple Respiratory: Chest Non Tender, No Accessory Muscle Use, No Respiratory Distress Cardiovascular: Regular Rate, Rhythm, No Edema, No Murmur, Tachycardia Peripheral Pulses: 2+ Radial Pulses (R), 2+ Radial Pulses (L) Gastrointestinal: normal bowel sounds, non tender, soft, tenderness (periumbical pain to palpation ) Extremity: Non Tender, No Calf Tenderness, No Pedal Edema Neurologic/Psychiatric: Alert; No Oriented x3 ([place] to place and person but time ); Normal Mood/Affect, Disoriented (Not orient to Time) Skin: Normal Color, Warm/Dry Lymphatic: Other (left axillary lymph node) Results Lab Laboratory Tests 08/07/19 10:43: Glucometer 59*L 08/07/19 11:43: Glucometer 80 08/07/19 13:25: Hemoglobin 9.3#L 08/07/19 13:52: Glucometer 120H 08/07/19 15:42: Glucometer 138H 08/07/19 20:44: Glucometer 210H 08/08/19 04:33: White Blood Count 5.5, Red Blood Count 2.72L, Hemoglobin 8.0L, Hematocrit 25L, Mean Corpuscular Volume 91, Mean Corpuscular Hemoglobin 29, Mean Corpuscular Hemoglobin Concent 32, Red Cell Distribution Width 19.7H, Platelet Count 56L, Mean Platelet Volume 11.9H, Neutrophils (%) (Auto) 79H, Lymphocytes (%) (Auto) 9L, Monocytes (%) (Auto) 13H, Eosinophils (%) (Auto) 0, Basophils (%) (Auto) 0, Neutrophils # (Auto) 4.4, Lymphocytes # (Auto) 0.5L, Monocytes # (Auto) 0.7, Eosinophils # (Auto) 0.0, Basophils # (Auto) 0.0, Sodium Level 132L, Potassium Level 4.2, Chloride Level 97L, Carbon Dioxide Level 23, Anion Gap 12, Blood Urea Nitrogen 21H, Creatinine 0.57L, Estimat Glomerular Filtration Rate > 60, BUN/Creatinine Ratio 37, Glucose Level 143H, Calcium Level 7.3L Microbiology 07/29/19 Blood Culture - Final, Complete No growth 08/03/19 Gram Stain - Final, Complete 08/03/19 Body Fluid Culture - Final, Complete No growth 07/27/19 MRSA Screen - Final, Complete MRSA not isolated 08/03/19 Urine Culture - Final, Complete YEAST Assessment/Plan Assessment/Plan Assessment/Plan Lymphoma Venous Insufficiency Anemia and Thrombocytopenia - thrombocytopenia has improve to >50,000 Pt is still a very poor surgical candidate because she is so ill and has very low platelets. 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 She has a PICC line in and it would be best to use that first and then reassess if she wants to continue; regarding [place] plac[place]. [place]-cath would be the best long'-term solution if she continues with chemotherapy. Clinical Quality Measures DVT/VTE Risk/Contraindication: Risk Factor Score Per Nursin RFS Level Per Nursing on Admit: 4+=Very High Contraindications-Pharm: Other *list below* Other: Pt receiving blood transfusion, possible bleeding so no order for medication indicated. Pt does have SCD's ordered and on. MELANY RODRIGUEZ DO 08/09/19 1552: Supervisory-Addendum Brief Verification & Attestation Participated in pt care: other Personally performed: other Care discussed with: Medical Student Procedures: n/a I did not see pt; I signed off. CLARISA BECK,MED STUDENT Aug 08, 2019 09:28 MELANY PAYNE DO Aug 09, 2019 15:52 POS
[2019-08-08] MEDS: PANTOPRAZOLE 40 MG (PROTONIX) VIAL IV SCH (09:35)
[2019-08-08] MEDS: FLECAINIDE 100 MG (TAMBOCOR) TAB PO SCH ×2 (09:35→19:56)
[2019-08-08] MEDS: ALLOPURINOL 100 MG (ZYLOPRIM) TAB PO SCH ×2 (09:35→17:47)
[2019-08-08] MEDS: CARVEDILOL 6.25 MG (COREG) TAB PO SCH ×2 (09:39→19:51)
--- NOTE | 2019-08-08 11:15 | Progress Note - Hospitalist ---
Subjective HPI/CC On Admission Date Seen by Provider: Aug 08, 2019 Time Seen by Provider: 10:45 fever, tachycardia, and hypotension Subjective/Events-last exam She feels well this morning. She is eating lunch with her family. She denies pain. Focused Exam Time of Focused Exam: 18:46 Objective Exam Vital Signs Vital Signs Date Time Temp Pulse Resp B/P (MAP) Pulse Ox O2 Delivery O2 Flow Rate FiO2 08/08/19 09:57 94 High Flow N/C 4.00 08/08/19 08:00 36.4 88 18 167/92 (117) 08/07/19 02:57 36 Capillary Refill : Less Than 3 SecondsLess Than 3 Seconds General Appearance: No Apparent Distress, Chronically ill HEENT: Pharynx Normal, Other (scleral icterus) Neck: Normal Inspection, Supple Respiratory: Lungs Clear, Normal Breath Sounds, No Respiratory Distress Cardiovascular: Regular Rate, Rhythm, No Murmur Gastrointestinal: Normal Bowel Sounds, Non Tender, Soft Extremity: Normal Inspection, Non Tender, Pedal Edema Neurologic/Psychiatric: Alert, Oriented x3, No Motor/Sensory Deficits, Normal Mood/Affect Skin: Normal Color, Warm/Dry Results/Procedures Lab Laboratory Tests 08/07/19 13:25 08/08/19 04:33 Patient resulted labs reviewed. Imaging: Reviewed Imaging Report Assessment/Plan Assessment and Plan Assess & Plan/Chief Complaint Diffuse large B-cell lymphoma - Afebrile, continue off antibiotics - Previously worked up for fever at , [facility], and [facility] for fever of unknown origin - CT chest/abdomen/pelvis revealed large left axillary lymph node, moderate splenomegaly - General surgery consulted s/p biopsy on 08/02- prelim report shows likely lymphoma - Planning to begin chemotherapy tomorrow Acute hypoxemic respiratory failure Bilateral pleural effusions - Pulm following - Continue lasix Paroxysmal atrial fibrillation - Continue Flecainide and Coreg - Cardiology following - No anticoagulation due to recurrent GI bleeding and anemia Recurrent GI bleeding Chronic blood loss anemia - Hgb 8 - Monitor and transfuse as needed Thrombocytopenia - Stable, continue to monitor Severe sepsis, resolved HCAP, resolved Lactic acidosis, resolved\ Hypokalemia, resolved Hypomagnesemia, resolved Hypophosphatemia, resolved DVT Prophylaxis: held due to recurrent GI bleeding Diagnosis/Problems Diagnosis/Problems (1) Diffuse large B-cell lymphoma Status: Acute Qualifiers: Lymphoma site: axillary Qualified Codes: C83.34 - Diffuse large b-cell lymphoma, lymph nodes of axilla and upper limb (2) Fever of unknown origin Status: Chronic (3) Severe sepsis Status: Resolved Resolution Date/Time: 07/29/19 @ 09:48 (4) HCAP (healthcare-associated pneumonia) Status: Resolved Resolution Date/Time: 08/08/19 @ 11:16 (5) Thrombocytopenia Status: Acute (6) Chronic blood loss anemia Status: Chronic (7) Recurrent gastrointestinal hemorrhage Status: Chronic (8) Hypokalemia Status: Resolved Resolution Date/Time: 08/08/19 @ 11:16 (9) Hypomagnesemia Status: Resolved Resolution Date/Time: 08/08/19 @ 11:16 (10) Hypophosphatemia Status: Resolved Resolution Date/Time: 08/08/19 @ 11:16 (11) Axillary lymphadenopathy Status: Acute (12) Splenomegaly Status: Acute Clinical Quality Measures DVT/VTE Risk/Contraindication: Risk Factor Score Per Nursin RFS Level Per Nursing on Admit: 4+=Very High Contraindications-Pharm: Other *list below* Other: Pt receiving blood transfusion, possible bleeding so no order for medication indicated. Pt does have SCD's ordered and on. DENISA ESQUIVEL MD Aug 08, 2019 11:15 POS
[2019-08-08 12:00] VITALS: BP 104/53
--- NOTE | 2019-08-08 12:14 | Oncology Progress Note ---
Subjective Date Seen by a Provider: Aug 08, 2019 Time Seen by a Provider: 12:08 Subjective/Events-last exam Pt is feeling better. She tolerated Solumedral 125mg well yesterday and fever went away. I asked her daughter about the allergic to Prednisone in patient record. Her daughter said that patient has been on and off Prednisone for last 3 months. Pt is NOT allergic to Prednisone. She just does not like how the Prednisone made her feel. Hb was up to 9.3 yesterday after the RBC transfusion. Hb 8 this morning Plt is up to 50 from 39 yesterday. Right arm swelling is much better. Very mild redness. No pain. She has a PICC line over the right upper arm. Pt and family decided to have chemotherapy Friday when Dr Payne is back. Data Review Labs Laboratory Tests 08/07/19 13:25 08/08/19 04:33 Laboratory Tests 08/05/19 15:59: Glucometer 113H 08/05/19 20:00: Glucometer 130H 08/06/19 05:00: Red Blood Count 2.74L, Hemoglobin 8.1L, Hematocrit 25L, Red Cell Distribution Width 19.4H, Platelet Count 44L, Mean Platelet Volume 11.3H, Monocytes (%) (Auto) 19H, Lymphocytes # (Auto) 0.8L, Monocytes # (Auto) 1.1H, Sodium Level 131L, Blood Urea Nitrogen 20H, Calcium Level 7.2L 08/06/19 11:25: Glucometer 115H 08/06/19 12:34: 08/06/19 15:53: 08/06/19 20:40: Glucometer 122H 08/07/19 04:35: Red Blood Count 2.29L, Hemoglobin 6.7*L, Hematocrit 21L, Red Cell Distribution Width 20.2H, Platelet Count 39*L, Mean Platelet Volume 10.7H, Monocytes (%) (Auto) 16H, Lymphocytes # (Auto) 0.6L, Sodium Level 132L, Creatinine 0.59L, Calcium Level 6.9L 08/07/19 10:43: Glucometer 59*L 08/07/19 11:43: 08/07/19 13:25: Hemoglobin 9.3#L 08/07/19 13:52: Glucometer 120H 08/07/19 15:42: Glucometer 138H 08/07/19 20:44: Glucometer 210H 08/08/19 04:33: Red Blood Count 2.72L, Hemoglobin 8.0L, Hematocrit 25L, Red Cell Distribution Width 19.7H, Platelet Count 56L, Mean Platelet Volume 11.9H, Neutrophils (%) (Auto) 79H, Lymphocytes (%) (Auto) 9L, Monocytes (%) (Auto) 13H, Lymphocytes # (Auto) 0.5L, Sodium Level 132L, Chloride Level 97L, Blood Urea Nitrogen 21H, Creatinine 0.57L, Glucose Level 143H, Calcium Level 7.3L 08/08/19 11:02: Glucometer 145H Laboratory Tests 08/07/19 13:25 08/08/19 04:33 Physical Exam Vital Signs Vital Signs - First Documented 08/02/19 08/04/19 00:18 12:50 Temp 36.3 FiO2 50 Capillary Refill : Less Than 3 SecondsLess Than 3 Seconds Height, Weight, BMI Height: '" Weight: lbs. oz. kg; 21.00 BMI Method:Estimated General Appearance: No Apparent Distress HEENT: PERRL/EOMI Neck: Non Tender, Supple Respiratory: Lungs Clear, No Accessory Muscle Use, No Respiratory Distress Cardiovascular: Regular Rate, Rhythm, Tachycardia Extremity: Non Tender, No Calf Tenderness Neurologic/Psychiatric: Alert, Oriented x3 Focused Exam Time of Focused Exam: 18:46 Impression & Plan Impression & Plan 74-year-old female with FUO and extensive workup at several outside hospitals over the past 2+ months and finally found to have 1. Diffuse large B cell lymphoma: Recent CT scan locally showed bilateral a xillary lymphadenopathy as well as splenomegaly. Status post left axillary lymph node biopsy on 08/02/2019. 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 Also BCL-2 and BCL 6 positive. 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 Ki-67 almost 100 percent. Confirmatory tests for C-MYC pending. 2. B symptoms from lymphoma: Dr Payne discussed with patient and her family about the CHOP-R treatment, possible Friday. I gave her a dose of Solumedral 125mg yesterday for her chills and shaking from the fever. She tolerated well no any allergic reaction. It was also helpful for her thrombocytopenia. Since she was NOT allergic to Prednisone. I will give her a dose today at 40mg to help her B symptoms and also prepare her for chemo tomorrow. 3. Patient has been made a DO NOT RESUSCITATE per her and family's wishes. 4. Anemia and thrombocytopenia. No transfusion needed today. 5. Right upper extremity swelling: much improved. I would just watch her for now. 6. Dr Payne will be back on Friday to address the chemotherapy. Clinical Quality Measures DVT/VTE Risk/Contraindication: Risk Factor Score Per Nursin RFS Level Per Nursing on Admit: 4+=Very High Contraindications-Pharm: Other *list below* Other: Pt receiving blood transfusion, possible bleeding so no order for medication indicated. Pt does have SCD's ordered and on. CARMEN BRIDGES MD Aug 08, 2019 12:14 POS
[2019-08-08] MEDS ORDERED: predniSONE 20 MG TAB PO NR (12:26)
[2019-08-08 15:44] VITALS: BP 109/50
[2019-08-08 17:28] LABS: BILIRUBIN,URINE NEGATIVE (NEGATIVE); CLARITY,URINE SL CLOUDY; COLOR,URINE AMBER; GLUCOSE, URINE (UA) NEGATIVE (NEGATIVE); KETONES,URINE NEGATIVE (NEGATIVE); LEUKOCYTE ESTERASE ,URINE NEGATIVE (NEGATIVE); NITRITE,URINE NEGATIVE (NEGATIVE); PROTEIN,URINE 2+ (NEGATIVE)
[2019-08-08 17:38] LABS: AMORPHOUS SEDIMENT,UR FEW AMOR URATES /LPF; BACTERIA,URINE MODERATE /HPF; RBC,URINE 0-2 /HPF; RENAL EPITHELIAL CELLS,URINE 0-2 /HPF; WBC,URINE 0-2 /HPF
[2019-08-08 19:18] VITALS: BP 106/53
[2019-08-08] MEDS: PROMETHAZINE INJ 25 MG/ML (PHENERGAN) AMP IVP PRN (22:58)
[2019-08-09] VITALS (9 sets, daily range): BP systolic 102–171; BP diastolic 50–89
[2019-08-09] MEDS: ACETAMINOPHEN 325 MG TABLET PO PRN (01:42)
--- NOTE | 2019-08-09 01:45 | NUR ---
0120 PT WAS FOUND ON FLOOR LYING ON LEFT SIDE FACING HER BED WITH HEAD LYING ON IV PUMP WHEEL STAND BY PCT WHEN BED ALARM WENT OFF. THIS RN NOTIFIED AND PT WAS ASSESSED. SHE HAD SMALL ABRASION TO BACK, LEFT SIDE OF HEAD. PHYSICALLY AND NEUROLOGICALLY WNL. SHE WAS ASSISTED BACK TO BED WITH ASSISTANCE OF 2. ABRASION TO BACK OF HEAD CLEANED. VS TAKEN AT TIME WNL, TAKEN 15 MINUTES LATER AND STILL WNL. SHE REPORTED PAIN TO HEAD. PRN TYLENOL ADMIN. DR ESQUIVEL NOTIFIED AT 0144, NO FURTHER ORDERS. DAUGHTER AND DPOA, KRISTEN NOTIFIED AND REDUCING MACHINE OPERATOR TAI NOTIFIED. NEURO CHECKS STARTED HOURLY AND AT BASELINE. TELESITTER STARTED WELL.
[2019-08-09] MEDS: RT-ALBUTEROL/IPRATROPIUM 3 ML (DUONEB) VIAL INH SCH ×7 (04:04→23:13)
[2019-08-09 04:43] LABS: BASOPHILS % (AUTO) 0 % (0-10); EOSINOPHILS % (AUTO) 0 % (0-10); HEMATOCRIT 24 % (35-52); HEMOGLOBIN 7.5 G/DL (11.5-16.0); LYMPHOCYTES # (AUTO) 0.3 X 10^3 (1.0-4.0); LYMPHOCYTES % (AUTO) 5 % (12-44); MEAN CORPUSCULAR HEMOGLOBIN 29 PG (25-34); MEAN CORPUSCULAR HGB CONC 32 G/DL (32-36); MEAN CORPUSCULAR VOLUME 92 FL (80-99); MEAN PLATELET VOLUME 11.2 FL (7.4-10.4); MONOCYTES % (AUTO) 15 % (0-12); NEUTROPHILS # (AUTO) 5.8 X 10^3 (1.8-7.8); NEUTROPHILS % (AUTO) 81 % (42-75); PLATELET COUNT 81 10^3/uL (130-400); RED CELL DISTRIBUTION WIDTH 20.9 % (10.0-14.5); WHITE BLOOD COUNT 7.2 10^3/uL (4.3-11.0)
--- NOTE | 2019-08-09 05:16 | NUR ---
PT HAS TAKEN OFF ALLEVYNS TO BILAT HEELS WELL HER YELLOW SLIPPER SOCKS AND SCD'S. SHE COMPLAINS THEY ARE UNCOMFORTABLE.
[2019-08-09 05:24] LABS: ALANINE AMINOTRANSFERASE 12 U/L (0-55); ALBUMIN 1.7 GM/DL (3.2-4.5); ALKALINE PHOSPHATASE 140 U/L (40-136); BILIRUBIN,TOTAL 1.4 MG/DL (0.1-1.0); BUN/CREATININE RATIO 32; CALCIUM 7.4 MG/DL (8.5-10.1); CARBON DIOXIDE 22 MMOL/L (21-32); CHLORIDE 98 MMOL/L (98-107); CREATININE SERUM 0.71 MG/DL (0.60-1.30); GFR ESTIMATED > 60; GLUCOSE 133 MG/DL (70-105); MAGNESIUM 1.6 MG/DL (1.6-2.4); PHOSPHORUS 4.5 MG/DL (2.3-4.7); POTASSIUM 4.4 MMOL/L (3.6-5.0); SODIUM 132 MMOL/L (135-145); TOTAL PROTEIN 4.2 GM/DL (6.4-8.2); URIC ACID 5.2 MG/DL (2.6-7.2)
[2019-08-09] MEDS ORDERED: LORazepam INJ 2 MG/ML (ATIVAN) VIAL IVP ONE (05:30)
[2019-08-09] MEDS ORDERED: LORazepam 0.5 MG (ATIVAN) TABLET ONE (05:33)
[2019-08-09] MEDS ORDERED: LORazepam INJ 2 MG/ML (ATIVAN) VIAL ONE (05:37)
--- NOTE | 2019-08-09 06:00 | NUR ---
AT 0530PT VERY AGITATED AND REFUSING TO STAY IN BED. SHE STARTED SCREAMING AT STAFF AND ATTEMPTING TO GET OUT OF BED. PT YELLED AT STAFF SAYING STAFF WAS OUT TO GET HER. DR ESQUIVEL CONTACTED BY THIS NURSE BLOCKING MACHINE OPERATOR SECOND AND REPORTED BEHAVIOR TO HIM. DR ESQUIVEL ORDERED ONE TIME DOSE OF 0.[address] ESQUIVEL ORDERED TO ATTEMPT ORAL FORM FIRST, WHICH WAS ATTEMPTED BY RN HOWEVER PT REFUSED TO TAKE MED, ACCUSING STAFF OF 'POISONING HER'. IV 0.25 MG ATIVAN ADMINISTERED. SHE IS NOW RESTING QUIETLY IN BED. TELESITTER REMAINS. CYTOLOGY TECHNOLOGIST IS SETTING UP ONE ON ON SITTER AT THIS TIME WELL.
[2019-08-09] MEDS: KCL 20 MEQ TAB (K-DUR) PO SCH ×2 (06:04→06:05)
[2019-08-09] MEDS: inSUlin ASPART (NovoLOG) 1 UNIT/0.01 ML (CHARGE PER UNIT) SC SCH ×4 (06:04→21:55)
[2019-08-09] MEDS: LACTOBACILLUS ACIDOPHILUS (PROBIOTIC) CAPSULE PO SCH ×3 (06:05→17:52)
--- NOTE | 2019-08-09 06:59 | NUR ---
TRUDY FROM ICU WATCHING TELEMETRY, ASKED IF THIS NURSE PAID SEARCH SPECIALIST WOULD DO AN ROSARIO ON PT D/T ELEVATED ST'S RECENTLY. PT WAS ASLEEP AFTER ATIVAN ADMINISTRATION. RT WAS IN ROOM ADMIN 0600 BREATHING TX AND REPORTED THAT HER PULSE HAD BEEN 45 INTIALLY AND JUMPED UP TO 88 SOON BREATHING TX WAS STARTED. ECG ADMIN PER PROTOCOL AND COPY IN CHART. PT WAS AWAKE DURING ECG AND FOUGHT STAFF DURING ECG. SHE DID GO BACK TO SLEEP AFTERWARDS. SHE IS PRESENTLY RESTING WITH EYES CLOSED.
--- NOTE | 2019-08-09 09:14 | Progress Note - Cardiology ---
Cardiology SOAP Progress Note Subjective: Generalized weakness and discomfort. Spouse at the bedside. Objective: I&O/Vital Signs 08/09/19 08/09/19 08/09/19 08/09/19 00:00 01:00 04:00 04:05 Temp 36.2 36.2 Pulse 89 92 84 Resp 16 20 B/P (MAP) 111/52 (71) 102/53 (69) Pulse Ox 92 96 93 O2 Delivery High Flow N/C High Flow N/C Nasal Cannula O2 Flow Rate 4.00 4.00 4.00 08/09/19 08/09/19 08/09/19 06:37 07:00 08:00 Temp 36.4 Pulse 75 90 Resp 24 B/P (MAP) 171/89 (116) Pulse Ox 93 96 O2 Delivery Nasal Cannula High Flow N/C O2 Flow Rate 4.00 4.00 08/09/19 00:00 Intake Total 460 ml Output Total 375 ml Balance 85 ml Constitutional: AAO x 3, other (thin, frail) Respiratory: No accessory muscle use, No respiratory distress; chest expansion is symmetric, chest is bilaterally symmetric, other (fair air entry with poor inspiratory effort) Cardiovascular: regular rate-rhythm; No JVD; S1 and S2 Gastrointestional: No tender; soft, audible bowel sounds (hypoactive) Genital/Rectal: other (urinary catheter to DD with deborah urine) Extremities: other (pitting bilat LE and UE swelling) Neurologic/Psychiatric: grossly intact (moves extremities) Skin: warm/dry, jaundice, pallor, other (diffuse bruising to upper extremities bilat) Results/Procedures: Labs Laboratory Tests 08/08/19 11:02: Glucometer 145H 08/08/19 15:49: Glucometer 133H 08/08/19 16:25: Urine Color AMBERH, Urine Clarity SL CLOUDY, Urine pH 6.0, Urine Specific [place] 1.020, Urine Protein 2+H, Urine Glucose (UA) NEGATIVE, Urine Ketones NEGATIVE, Urine Nitrite NEGATIVE, Urine Bilirubin NEGATIVE, Urine Urobilinogen 1.0, Urine Leukocyte Esterase NEGATIVE, Urine RBC (Auto) 3+H, Urine RBC 0-2, Urine WBC 0-2, Urine Squamous Epithelial Cells NONE, Urine Renal Epithelial Cells 0-2, Urine Crystals PRESENTH, Urine Amorphous Sediment FEW HAJA URATESH, Urine Bacteria MODERATEH, Urine Casts PRESENT, Urine Granular Casts 2-5H, Urine Mucus NEGATIVE, Urine Culture Indicated YES 08/08/19 20:12: Glucometer 165H 08/09/19 04:35: White Blood Count 7.2, Red Blood Count 2.58L, Hemoglobin 7.5L, Hematocrit 24L, Mean Corpuscular Volume 92, Mean Corpuscular Hemoglobin 29, Mean Corpuscular Hemoglobin Concent 32, Red Cell Distribution Width 20.9H, Platelet Count 81L, Mean Platelet Volume 11.2H, Neutrophils (%) (Auto) 81H, Lymphocytes (%) (Auto) 5L, Monocytes (%) (Auto) 15H, Eosinophils (%) (Auto) 0, Basophils (%) (Auto) 0, Neutrophils # (Auto) 5.8, Lymphocytes # (Auto) 0.3L, Monocytes # (Auto) 1.0, Eosinophils # (Auto) 0.0, Basophils # (Auto) 0.0, Sodium Level 132L, Potassium Level 4.4, Chloride Level 98, Carbon Dioxide Level 22, Anion Gap 12, Blood Urea Nitrogen 23H, Creatinine 0.71, Estimat Glomerular Filtration Rate > 60, BUN/Creatinine Ratio 32, Glucose Level 133H, Uric Acid 5.2, Calcium Level 7.4L, Corrected Calcium 9.2, Phosphorus Level 4.5, Magnesium Level 1.6, Total Bilirubin 1.4H, Aspartate Amino Transf (AST/SGOT) 45H, Alanine Aminotransferase (ALT/SGPT) 12, Alkaline Phosphatase 140H, Lactate Dehydrogenase 2316H, Total Protein 4.2L, Albumin 1.7L 08/09/19 06:09: Glucometer 123H Microbiology 07/29/19 Blood Culture - Final, Complete No growth 08/03/19 Gram Stain - Final, Complete 08/03/19 Body Fluid Culture - Final, Complete No growth 07/27/19 MRSA Screen - Final, Complete MRSA not isolated 08/03/19 Urine Culture - Final, Complete YEAST Laboratory Tests 08/07/19 13:25 08/08/19 04:33 08/09/19 04:35 A/P: Assessment: Severe sepsis - Medical Services managing FUO Large B-cell lymphoma diagnosed during this hosp - Med Svce and Heme/Onc managing Chronic HFpEF Severe anemia of undetermined etiology (she reports chronic anemia for which she has had multiple eval in the past with unknown cause). Stool positive for occult blood during previous admission - Dr. Payne of Hematology/Oncology managing Thrombocytopenia, managed by the Med Svce/Hematology Svce SSS. Intermittent wandering atrial pacemaker during this admission. H/o PAF that has chronically been treated with flecainide (pt states years, but doesn't who started it when). OAC has been withheld d/t because of severe anemia of undetermined etiology (per recs of hospitalist during previous admission earlier this month) Echo of 07/11/19: LVEF 60-65%, mild MR, mod AI, mild to mod TR, grade 2 mccullough dys function, RVSP 47 mmHg MPI of Jul 13, 2019 showed no evidence of ischemia/infarction; LVEF 67% Elevated bili level Plan: * Complex management * Fall early this morning * Lymphoma has been diagnosed per axillary lymph node biopsy on 08-02-19 - Dr. Payne managing * Management of anemia and fever is per Medical and Oncology services * Monitor labs * Replace lytes as indicated * Give one time dose of IV Lasix today * EKG reviewed showing SR * Guarded prognosis * DNR status per pt DAVINA Gonzales Aug 09, 2019 09:14 POS
[2019-08-09] MEDS: PANTOPRAZOLE 40 MG (PROTONIX) VIAL IV SCH (09:16)
[2019-08-09] MEDS: CARVEDILOL 6.25 MG (COREG) TAB PO SCH ×2 (09:24→10:00)
[2019-08-09] MEDS ORDERED: FUROSEMIDE 40 MG/4 ML INJ (LASIX) IVP ONE (09:30)
[2019-08-09] MEDS: FLECAINIDE 100 MG (TAMBOCOR) TAB PO SCH ×2 (09:32→22:24)
[2019-08-09] MEDS: ALLOPURINOL 100 MG (ZYLOPRIM) TAB PO SCH ×2 (09:36→17:44)
[2019-08-09] MEDS ORDERED: PALONOSETRON HCL 0.25 MG, DEXAMETHASONE INJECTION 10 MG in NS (IVPB) CANCER CENTER 50 ML IV SCH (11:45)
[2019-08-09] MEDS ORDERED: NS IV 1000 ML (CANCER CTR) IV SCH (11:45)
[2019-08-09] MEDS ORDERED: FOSAPREPITANT DIMEGLUMINE 150 MG in NS (IVPB) CANCER CENTER ONLY 150 ML IV SCH (11:45)
--- NOTE | 2019-08-09 11:50 | Physical Therapy Progress Note ---
Therapy Progress Note Patient's family declined PT on this date due to patient decline in mental status and is currently minimally responsive. RN confirms. PT will attempt in a.m. 1 ref ([id number]) CURTIS GARCIA PT Aug 09, 2019 11:50 POS
[2019-08-09] MEDS ORDERED: CYCLOPHOSPHAMIDE IV SCH (12:00)
[2019-08-09] MEDS ORDERED: VINCRISTINE SULFATE IV SCH (12:00)
[2019-08-09] MEDS ORDERED: NS IV SCH ×3 (12:00)
[2019-08-09] MEDS ORDERED: DOXORUBICIN HCL IV SCH (12:00)
[2019-08-09] MEDS: predniSONE 20 MG TAB PO SCH (12:49)
--- NOTE | 2019-08-09 14:33 | Progress Note - Cardiology ---
Cardiology SOAP Progress Note Subjective: Does not report cp or palp or shortness of breath, but is somnolent and appears confused Objective: I&O/Vital Signs 08/09/19 08/09/19 08/09/19 08/09/19 04:00 04:05 06:37 07:00 Temp 36.2 Pulse 84 75 Resp 20 B/P (MAP) 102/53 (69) Pulse Ox 96 93 93 O2 Delivery High Flow N/C Nasal Cannula Nasal Cannula O2 Flow Rate 4.00 4.00 4.00 08/09/19 08/09/19 08/09/19 08/09/19 08:00 09:15 11:20 11:50 Temp 36.4 36.5 Pulse 90 85 Resp 24 20 B/P (MAP) 171/89 (116) 121/68 (85) Pulse Ox 96 94 97 O2 Delivery High Flow N/C High Flow N/C Nasal Cannula High Flow N/C O2 Flow Rate 4.00 4.00 4.00 4.00 08/09/19 12:22 Pulse 83 08/09/19 00:00 Intake Total 460 ml Output Total 375 ml Balance 85 ml Constitutional: No AAO x 3; other (thin, frail) Respiratory: No accessory muscle use, No respiratory distress; chest expansion is symmetric, chest is bilaterally symmetric, other (fair air entry with poor inspiratory effort) Cardiovascular: regular rate-rhythm; No JVD; S1 and S2 Gastrointestional: No tender; soft, audible bowel sounds (hypoactive) Genital/Rectal: other (urinary catheter to DD with deborah urine) Extremities: other (pitting bilat LE and UE swelling) Neurologic/Psychiatric: other (moves all limbs equally) Skin: warm/dry, jaundice, pallor, other (diffuse bruising to upper extremities bilat) Results/Procedures: Labs Laboratory Tests 08/08/19 15:49: Glucometer 133H 08/08/19 16:25: Urine Color AMBERH, Urine Clarity SL CLOUDY, Urine pH 6.0, Urine Specific [place] 1.020, Urine Protein 2+H, Urine Glucose (UA) NEGATIVE, Urine Ketones NEGATIVE, Urine Nitrite NEGATIVE, Urine Bilirubin NEGATIVE, Urine Urobilinogen 1.0, Urine Leukocyte Esterase NEGATIVE, Urine RBC (Auto) 3+H, Urine RBC 0-2, Urine WBC 0-2, Urine Squamous Epithelial Cells NONE, Urine Renal Epithelial Cells 0-2, Urine Crystals PRESENTH, Urine Amorphous Sediment FEW HAJA URATESH, Urine Bacteria MODERATEH, Urine Casts PRESENT, Urine Granular Casts 2-5H, Urine Mucus NEGATIVE, Urine Culture Indicated YES 08/08/19 20:12: Glucometer 165H 08/09/19 04:35: White Blood Count 7.2, Red Blood Count 2.58L, Hemoglobin 7.5L, Hematocrit 24L, Mean Corpuscular Volume 92, Mean Corpuscular Hemoglobin 29, Mean Corpuscular Hemoglobin Concent 32, Red Cell Distribution Width 20.9H, Platelet Count 81L, Mean Platelet Volume 11.2H, Neutrophils (%) (Auto) 81H, Lymphocytes (%) (Auto) 5L, Monocytes (%) (Auto) 15H, Eosinophils (%) (Auto) 0, Basophils (%) (Auto) 0, Neutrophils # (Auto) 5.8, Lymphocytes # (Auto) 0.3L, Monocytes # (Auto) 1.0, Eosinophils # (Auto) 0.0, Basophils # (Auto) 0.0, Sodium Level 132L, Potassium Level 4.4, Chloride Level 98, Carbon Dioxide Level 22, Anion Gap 12, Blood Urea Nitrogen 23H, Creatinine 0.71, Estimat Glomerular Filtration Rate > 60, BUN/Creatinine Ratio 32, Glucose Level 133H, Uric Acid 5.2, Calcium Level 7.4L, Corrected Calcium 9.2, Phosphorus Level 4.5, Magnesium Level 1.6, Total Bilirubin 1.4H, Aspartate Amino Transf (AST/SGOT) 45H, Alanine Aminotransferase (ALT/SGPT) 12, Alkaline Phosphatase 140H, Lactate Dehydrogenase 2316H, Total Protein 4.2L, Albumin 1.7L 08/09/19 06:09: Glucometer 123H 08/09/19 11:09: Glucometer 126H Microbiology 07/29/19 Blood Culture - Final, Complete No growth 08/03/19 Gram Stain - Final, Complete 08/03/19 Body Fluid Culture - Final, Complete No growth 07/27/19 MRSA Screen - Final, Complete MRSA not isolated 08/03/19 Urine Culture - Final, Complete YEAST A/P: Assessment: Generally deteriorating clinical status (disoriented and weak appearing) being managed by the [facility] [place] ECG on 08/09/19: NSR with PACs Severe sepsis - Medical Services managing FUO Large B-cell lymphoma diagnosed during this hosp - Med Svce and Heme/Onc managing Chronic HFpEF Severe anemia of undetermined etiology (she reports chronic anemia for which she has had multiple eval in the past with unknown cause). Stool positive for occult blood during previous admission - Dr. Payne of Hematology/Oncology managing Thrombocytopenia, managed by the Med Svce/Hematology Svce SSS. Intermittent wandering atrial pacemaker during this admission. H/o PAF that has chronically been treated with flecainide (pt has told it was started years ago, but doesn't who started it when). OAC has been withheld d/t because of severe anemia of undetermined etiology (per recs of hospitalist during previous admission earlier this month) Echo of 07/11/19: LVEF 60-65%, mild MR, mod AI, mild to mod TR, grade 2 mccullough dysfunction, RVSP 47 mmHg MPI of Jul 13, 2019 showed no evidence of ischemia/infarction; LVEF 67% Elevated bili level Plan: * Complex management and deteriorating clinical status * Lymphoma has been diagnosed per axillary lymph node biopsy on 08-02-19 - Dr. Payne managing * Management of anemia and fever is per Medical and Oncology services * Monitor labs * Replace lytes as indicated * Give one time dose of IV Lasix today * Guarded prognosis * DNR status per pt ANA Horton MD FACP FACC CCDS Aug 09, 2019 14:33 POS
--- NOTE | 2019-08-09 14:53 | Progress Note - Hospitalist ---
Subjective HPI/CC On Admission Date Seen by Provider: Aug 09, 2019 Time Seen by Provider: 09:00 fever, tachycardia, and hypotension Subjective/Events-last exam She is tired and weak this morning. She is not very cooperative. She does open her eyes and nods her head yes and no to answer questions. She denies being in any pain. She denies having any complaints. Focused Exam Time of Focused Exam: 18:46 Objective Exam Vital Signs Vital Signs Date Time Temp Pulse Resp B/P (MAP) Pulse Ox O2 Delivery O2 Flow Rate FiO2 08/09/19 14:25 90 Nasal Cannula 4.00 08/09/19 12:22 83 08/09/19 11:50 36.5 20 121/68 (85) 08/07/19 02:57 36 Capillary Refill : Less Than 3 SecondsLess Than 3 Seconds General Appearance: No Apparent Distress, Chronically ill Respiratory: Lungs Clear, Normal Breath Sounds, No Respiratory Distress Cardiovascular: Regular Rate, Rhythm, No Murmur Gastrointestinal: Normal Bowel Sounds, Non Tender, Soft Extremity: Normal Inspection, Non Tender, Pedal Edema, Swelling Neurologic/Psychiatric: Depressed Affect, Other (Sleeping but easily aroused) Skin: Pallor Results/Procedures Lab Laboratory Tests 08/09/19 04:35 Patient resulted labs reviewed. Imaging: Reviewed Imaging Report Assessment/Plan Assessment and Plan Assess & Plan/Chief Complaint Diffuse large B-cell lymphoma - Afebrile, continue off antibiotics - Previously worked up for fever at , [facility], and [facility] for fever of unknown origin - CT chest/abdomen/pelvis revealed large left axillary lymph node, moderate splenomegaly - General surgery consulted s/p biopsy on 08/02- prelim report shows likely lymphoma - Planning to begin chemotherapy today Acute hypoxemic respiratory failure Bilateral pleural effusions - Pulm and cardiology following - Continue lasix Paroxysmal atrial fibrillation - Continue Flecainide and Coreg - Cardiology following - No anticoagulation due to recurrent GI bleeding and anemia Recurrent GI bleeding Chronic blood loss anemia - Hgb 7.5 - Monitor and transfuse as needed Thrombocytopenia - Improving, continue to monitor Severe protein calorie malnutrition - Spoke with family about possible need for supplemental nutrition - They say that she had an NG tube during a previous stay and she would not want it again - Continue to encourage adequate intake - Ensure with meals Severe sepsis, resolved HCAP, resolved Lactic acidosis, resolved Hypokalemia, resolved Hypomagnesemia, resolved Hypophosphatemia, resolved DVT Prophylaxis: held due to recurrent GI bleeding Diagnosis/Problems Diagnosis/Problems (1) Diffuse large B-cell lymphoma Status: Acute Qualifiers: Lymphoma site: axillary Qualified Codes: C83.34 - Diffuse large b-cell lymphoma, lymph nodes of axilla and upper limb (2) Fever of unknown origin Status: Chronic (3) Severe sepsis Status: Resolved Resolution Date/Time: 07/29/19 @ 09:48 (4) HCAP (healthcare-associated pneumonia) Status: Resolved Resolution Date/Time: 08/08/19 @ 11:16 (5) Thrombocytopenia Status: Acute (6) Chronic blood loss anemia Status: Chronic (7) Recurrent gastrointestinal hemorrhage Status: Chronic (8) Hypokalemia Status: Resolved Resolution Date/Time: 08/08/19 @ 11:16 (9) Hypomagnesemia Status: Resolved Resolution Date/Time: 08/08/19 @ 11:16 (10) Hypophosphatemia Status: Resolved Resolution Date/Time: 08/08/19 @ 11:16 (11) Axillary lymphadenopathy Status: Acute (12) Splenomegaly Status: Acute Clinical Quality Measures DVT/VTE Risk/Contraindication: Risk Factor Score Per Nursin RFS Level Per Nursing on Admit: 4+=Very High Contraindications-Pharm: Other *list below* Other: Pt receiving blood transfusion, possible bleeding so no order for medication indicated. Pt does have SCD's ordered and on. DENISA ESQUIVEL MD Aug 09, 2019 14:53 POS
--- NOTE | 2019-08-09 15:05 | Occ Therapy Progress Note ---
Therapy Progress Note Pt is receiving chemo. Will attempt to see pt in am. MARIANN SHEA Aug 09, 2019 15:05 POS
--- NOTE | 2019-08-09 15:10 | NUR ---
PALLIATIVE CARE RN in to check on patient. She is resting and family reports that this is how she has been the better part of the day. Usually she is more alert in the morning and sleepy in the afternoon. Getting set up to have her first chemo therapy administration. Not eating much but did get some boost down family reports. Will monitor her reaction to chemo and administer medications as needed for adverse symptoms.
[2019-08-09] MEDS ORDERED: vinCRIStine SULFATE 1 MG in NS (IVPB) CANCER CENTER 50 ML IV SCH (16:00)
[2019-08-09] MEDS ORDERED: NS IV 500 ML 500 ML IV SCH (17:00)
--- NOTE | 2019-08-09 18:15 | Progress Note ---
Standard Progress Note Progress Notes/Assess & Plan Date Seen by a Provider: Aug 09, 2019 Time Seen by a Provider: 18:10 Progress/Assessment & Plan 74-year-old female with FUO and extensive workup at several outside hospitals over the past 2+ months. Recent CT scan locally showed bilateral axillary lymphadenopathy as well as splenomegaly. Status post left axillary lymph node biopsy on 08/02/2019. 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 Also BCL-2 and BCL 6 positive. 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 Ki-67 almost 100 percent. Confirmatory tests for C-MYC pending. After extensive discussion with the patient and family last week, she wanted to try chemotherapy with mini CHOP-R regimen. Patient had a fall earlier today morning and hurt her left side of her head. She received a dose of Ativan this morning and has been somnolent through the day. Patient received mini CHOP regimen this afternoon. We will plan on administering Rituxan tomorrow. Hemoglobin 7.5 g/dL today and transfuse one unit to maintain more than 8 g/dL. Hepatitis panel was nonreactive. Baseline labs unremarkable except LDH markedly elevated. Repeat lab work tomorrow morning. Patient is DO NOT RESUSCITATE per her and family's wishes. Continue rest of the treatment as you are doing. Will follow patient with you. Focused Exam Time of Focused Exam: 18:46 LEEROY BANERJEE Aug 09, 2019 18:15 POS
[2019-08-09] MEDS: NS IV 500 ML 500 ML IV SCH (21:47)
[2019-08-10] VITALS (10 sets, daily range): BP systolic 112–145; BP diastolic 56–69
[2019-08-10] MEDS: RT-ALBUTEROL/IPRATROPIUM 3 ML (DUONEB) VIAL INH SCH ×6 (02:20→21:56)
[2019-08-10] MEDS: ONDANSETRON 4 MG/2 ML (SDV) Z0FRAN IV PRN ×2 (03:45→20:13)
[2019-08-10 05:18] LABS: BASOPHILS % (AUTO) 0 % (0-10); EOSINOPHILS % (AUTO) 0 % (0-10); HEMATOCRIT 23 % (35-52); HEMOGLOBIN 7.4 G/DL (11.5-16.0); LYMPHOCYTES # (AUTO) 0.4 X 10^3 (1.0-4.0); LYMPHOCYTES % (AUTO) 8 % (12-44); MEAN CORPUSCULAR HEMOGLOBIN 30 PG (25-34); MEAN CORPUSCULAR HGB CONC 32 G/DL (32-36); MEAN CORPUSCULAR VOLUME 94 FL (80-99); MEAN PLATELET VOLUME 11.3 FL (7.4-10.4); MONOCYTES # (AUTO) 0.7 X 10^3 (0.0-1.0); MONOCYTES % (AUTO) 14 % (0-12); NEUTROPHILS # (AUTO) 4.2 X 10^3 (1.8-7.8); NEUTROPHILS % (AUTO) 78 % (42-75); PLATELET COUNT 73 10^3/uL (130-400); RED CELL DISTRIBUTION WIDTH 20.2 % (10.0-14.5); WHITE BLOOD COUNT 5.4 10^3/uL (4.3-11.0)
[2019-08-10 05:37] LABS: ALANINE AMINOTRANSFERASE 15 U/L (0-55); ALBUMIN 1.6 GM/DL (3.2-4.5); ALKALINE PHOSPHATASE 123 U/L (40-136); BILIRUBIN,TOTAL 1.7 MG/DL (0.1-1.0); BUN/CREATININE RATIO 33; CARBON DIOXIDE 23 MMOL/L (21-32); CHLORIDE 102 MMOL/L (98-107); GFR ESTIMATED > 60; GLUCOSE 153 MG/DL (70-105); POTASSIUM 4.3 MMOL/L (3.6-5.0); SODIUM 134 MMOL/L (135-145); URIC ACID 4.9 MG/DL (2.6-7.2)
[2019-08-10] MEDS: KCL 20 MEQ TAB (K-DUR) PO SCH ×2 (06:01→06:26)
[2019-08-10] MEDS: inSUlin ASPART (NovoLOG) 1 UNIT/0.01 ML (CHARGE PER UNIT) SC SCH ×4 (06:02→20:13)
[2019-08-10] MEDS: LACTOBACILLUS ACIDOPHILUS (PROBIOTIC) CAPSULE PO SCH ×3 (06:26→17:25)
[2019-08-10] MEDS: predniSONE 20 MG TAB PO SCH (06:26)
[2019-08-10] MEDS: FLECAINIDE 100 MG (TAMBOCOR) TAB PO SCH ×2 (08:35→20:13)
[2019-08-10] MEDS: CARVEDILOL 6.25 MG (COREG) TAB PO SCH ×2 (08:35→20:13)
[2019-08-10] MEDS: PANTOPRAZOLE 40 MG (PROTONIX) VIAL IV SCH (08:35)
[2019-08-10] MEDS: ALLOPURINOL 100 MG (ZYLOPRIM) TAB PO SCH ×2 (08:35→17:25)
[2019-08-10] MEDS ORDERED: riTUXimab 500 MG, riTUXimab FOR IV INJ CONC 100 MG in NS (IVPB) CANCER CENTER ONLY 150 ML IV SCH (09:00)
[2019-08-10] MEDS ORDERED: diphenhydrAMINE 50 MG/ML INJ (CANCER CENTER) ONE (09:05)
[2019-08-10] MEDS ORDERED: APAP 325 MG/10.15 ML LIQ (TYLENOL) UDC PO SCH (09:15)
[2019-08-10] MEDS ORDERED: diphenhydrAMINE 50 MG/ML INJ (CANCER CENTER) IV PRN (09:15)
--- NOTE | 2019-08-10 09:56 | Physical Therapy Progress Note ---
Therapy Progress Note Patient is on hold and unavailable for therapy on this date due to beginning of chemo . Will attempt in CURTIS Nieves PT Aug 10, 2019 09:56 POS
--- NOTE | 2019-08-10 11:22 | Occ Therapy Progress Note ---
Therapy Progress Note Patient is on hold and unavailable for therapy on this date due to beginning of chemo . Will attempt in MARIANN Tompkins Aug 10, 2019 11:22 POS
--- NOTE | 2019-08-10 12:25 | Progress Note - Hospitalist ---
Subjective HPI/CC On Admission Date Seen by Provider: Aug 10, 2019 Time Seen by Provider: 09:15 fever, tachycardia, and hypotension Subjective/Events-last exam She was seen briefly as she was being taken to the cancer center for chemotherapy. She was more awake and alert today. Focused Exam Time of Focused Exam: 18:46 Objective Exam Vital Signs Vital Signs Date Time Temp Pulse Resp B/P (MAP) Pulse Ox O2 Delivery O2 Flow Rate FiO2 08/10/19 08:20 97 High Flow N/C 4.00 08/10/19 07:16 36.0 74 24 145/65 (91) 08/07/19 02:57 36 Capillary Refill : Less Than 3 SecondsLess Than 3 Seconds General Appearance: No Apparent Distress, Chronically ill Neck: Normal Inspection, Supple Respiratory: No Accessory Muscle Use, No Respiratory Distress Gastrointestinal: No Distended Extremity: Normal Inspection, Pedal Edema Neurologic/Psychiatric: Alert, Depressed Affect Skin: Pallor; No Rash Results/Procedures Lab Laboratory Tests 08/10/19 05:05 Patient resulted labs reviewed. Imaging: Reviewed Imaging Report Assessment/Plan Assessment and Plan Assess & Plan/Chief Complaint Diffuse large B-cell lymphoma - Afebrile, continue off antibiotics - Previously worked up for fever at , [facility], and [facility] for fever of unknown origin - CT chest/abdomen/pelvis revealed large left axillary lymph node, moderate splenomegaly - General surgery consulted s/p biopsy on 08/02- prelim report shows likely lymphoma - Began chemotherapy yesterday - Continuing chemotherapy today in the cancer center - Receiving mini CHOP-R Acute hypoxemic respiratory failure Bilateral pleural effusions - Pulm and cardiology following - Continue lasix Paroxysmal atrial fibrillation - Continue Flecainide and Coreg - Cardiology following - No anticoagulation due to recurrent GI bleeding and anemia Recurrent GI bleeding Chronic blood loss anemia - Hgb 7.4, stable - Monitor and transfuse as needed to keep Hgb >7 Thrombocytopenia - Improving, continue to monitor Severe protein calorie malnutrition - Continue to encourage adequate intake - Ensure with meals Severe sepsis, resolved HCAP, resolved Lactic acidosis, resolved Hypokalemia, resolved Hypomagnesemia, resolved Hypophosphatemia, resolved DVT Prophylaxis: held due to recurrent GI bleeding Diagnosis/Problems Diagnosis/Problems (1) Diffuse large B-cell lymphoma Status: Acute Qualifiers: Lymphoma site: axillary Qualified Codes: C83.34 - Diffuse large b-cell lymphoma, lymph nodes of axilla and upper limb (2) Fever of unknown origin Status: Chronic (3) Severe sepsis Status: Resolved Resolution Date/Time: 07/29/19 @ 09:48 (4) HCAP (healthcare-associated pneumonia) Status: Resolved Resolution Date/Time: 08/08/19 @ 11:16 (5) Thrombocytopenia Status: Acute (6) Chronic blood loss anemia Status: Chronic (7) Recurrent gastrointestinal hemorrhage Status: Chronic (8) Hypokalemia Status: Resolved Resolution Date/Time: 08/08/19 @ 11:16 (9) Hypomagnesemia Status: Resolved Resolution Date/Time: 08/08/19 @ 11:16 (10) Hypophosphatemia Status: Resolved Resolution Date/Time: 08/08/19 @ 11:16 (11) Axillary lymphadenopathy Status: Acute (12) Splenomegaly Status: Acute Clinical Quality Measures DVT/VTE Risk/Contraindication: Risk Factor Score Per Nursin RFS Level Per Nursing on Admit: 4+=Very High Contraindications-Pharm: Other *list below* Other: Pt receiving blood transfusion, possible bleeding so no order for medication indicated. Pt does have SCD's ordered and on. DENIAS ESQUIVEL MD Aug 10, 2019 12:25 POS
--- NOTE | 2019-08-10 13:42 | NUR ---
Attempted to see pt today for follow-up. Pt is in Cancer Center receiving treatment most of today. Will follow-up with pt tomorrow. Kosta Rodriguez, MS, RD, LD
--- NOTE | 2019-08-10 17:23 | Progress Note ---
Standard Progress Note Progress Notes/Assess & Plan Date Seen by a Provider: Aug 10, 2019 Time Seen by a Provider: 17:20 Progress/Assessment & Plan 74-year-old female with FUO and extensive workup at several outside hospitals over the past 2+ months. Recent CT scan locally showed bilateral axillary lymphadenopathy as well as splenomegaly. Status post left axillary lymph node biopsy on 08/02/2019. 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 Also BCL-2 and BCL 6 positive. 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 Ki-67 almost 100 percent. Confirmatory tests for C-MYC pending. Patient is a wide awake today. Her appetite is good and she is eating solids. Having difficulty swallowing liquids. Hemoglobin 7.4 g/dL today and transfuse one unit to maintain more than 8 g/dL. Repeat lab work tomorrow morning. Patient is DO NOT RESUSCITATE per her and family's wishes. Continue rest of the treatment as you are doing. If she continues to feel well, resumed physical therapy/occupational therapy for strengthening and ambulation. Will follow patient with you. Focused Exam Time of Focused Exam: 18:46 LEEROY BANERJEE Aug 10, 2019 17:22 POS
[2019-08-10] MEDS: NS IV 500 ML 500 ML IV SCH ×8 (18:27→23:23)
--- NOTE | 2019-08-10 20:38 | NUR ---
BLOOD TRANSFUSION COMPLETE. VS STABLE.
[2019-08-10 21:22] LABS: HEMOGLOBIN 8.1 G/DL (11.5-16.0)
[2019-08-10] MEDS: PROMETHAZINE INJ 25 MG/ML (PHENERGAN) AMP IVP PRN (21:22)
[2019-08-11] VITALS (7 sets, daily range): BP systolic 122–189; BP diastolic 60–75
[2019-08-11] MEDS: NS IV 500 ML 500 ML IV SCH ×5 (00:39→05:02)
--- NOTE | 2019-08-11 01:53 | NUR ---
2+ EDEMA/SWELLING WITH PITTING NOTED TO RUE. PICC LINE IN RT AC FLUSHES AND DRAWS BACK BLOOD WITHOUT RESISTANCE. RUE MEASURED CIRCUMFERENTIALLY MIDWAY BETWEEN PICC LINE INSERTION SITE AND SHOULDER AND NOTED TO BE 28CM, 3CM GREATER IN DIAMETER THAN CIRCUMFERENCE AT TIME OF INSERTION (25CM). NO REDNESS NOTED AT INSERTION SITE, NO S/S OF PHLEBITIS. WILL CONTINUE TO MONITOR. Addendum: 08/11/19 at 0415 by ANNMARIE PRICE RN THIS RN IDENTIFIED IN 'S NOTES THAT PT HAD LEFT AXILLARY LYMPH NODE DISSECTION ON 08/02/19. THIS RN ASSESSED SURGICAL SITE AT THIS TIME. SURGICAL SITE NOTED TO BE OF NORMAL SKIN COLOR, SKIN AFFIX C/D/I, NO RUBOR, CALOR, OR TUMOR NOTED. PT STATES NO PAIN AT SITE.
[2019-08-11] MEDS: RT-ALBUTEROL/IPRATROPIUM 3 ML (DUONEB) VIAL INH SCH ×4 (01:54→15:10)
[2019-08-11] MEDS: ONDANSETRON 4 MG/2 ML (SDV) Z0FRAN IV PRN (04:28)
[2019-08-11 04:42] LABS: BASOPHILS % (AUTO) 0 % (0-10); EOSINOPHILS % (AUTO) 0 % (0-10); HEMATOCRIT 25 % (35-52); HEMOGLOBIN 7.9 G/DL (11.5-16.0); LYMPHOCYTES # (AUTO) 0.2 X 10^3 (1.0-4.0); LYMPHOCYTES % (AUTO) 5 % (12-44); MEAN CORPUSCULAR HEMOGLOBIN 29 PG (25-34); MEAN CORPUSCULAR HGB CONC 32 G/DL (32-36); MEAN CORPUSCULAR VOLUME 92 FL (80-99); MONOCYTES # (AUTO) 0.7 X 10^3 (0.0-1.0); MONOCYTES % (AUTO) 19 % (0-12); NEUTROPHILS # (AUTO) 2.8 X 10^3 (1.8-7.8); NEUTROPHILS % (AUTO) 75 % (42-75); PLATELET COUNT 102 10^3/uL (130-400); RED CELL DISTRIBUTION WIDTH 19.6 % (10.0-14.5); WHITE BLOOD COUNT 3.7 10^3/uL (4.3-11.0)
[2019-08-11 05:10] LABS: ALANINE AMINOTRANSFERASE 23 U/L (0-55); ALBUMIN 1.6 GM/DL (3.2-4.5); ALKALINE PHOSPHATASE 134 U/L (40-136); BILIRUBIN,TOTAL 1.2 MG/DL (0.1-1.0); BUN/CREATININE RATIO 34; CARBON DIOXIDE 22 MMOL/L (21-32); CHLORIDE 107 MMOL/L (98-107); CREATININE SERUM 0.68 MG/DL (0.60-1.30); GFR ESTIMATED > 60; GLUCOSE 130 MG/DL (70-105); POTASSIUM 4.5 MMOL/L (3.6-5.0); SODIUM 137 MMOL/L (135-145)
[2019-08-11] MEDS: KCL 20 MEQ TAB (K-DUR) PO SCH ×2 (05:15→06:02)
[2019-08-11] MEDS: inSUlin ASPART (NovoLOG) 1 UNIT/0.01 ML (CHARGE PER UNIT) SC SCH ×2 (05:16→11:00)
[2019-08-11] MEDS: predniSONE 20 MG TAB PO SCH ×2 (06:02→06:20)
[2019-08-11] MEDS: LACTOBACILLUS ACIDOPHILUS (PROBIOTIC) CAPSULE PO SCH ×3 (06:02→13:57)
[2019-08-11 06:12] LABS: EOSINOPHILS % (MANUAL) 1 %; LYMPHOCYTES % (MANUAL) 2 %; MONOCYTES % (MANUAL) 12 %; NEUTROPHILS % (MANUAL) 85 %
--- NOTE | 2019-08-11 06:18 | NUR ---
ATTEMPTED TO GIVE PT ORAL MEDICATIONS WITH NECTAR THICKENED LIQUIDS AND PUDDING. PT UNABLE TO SWALLOW ORAL MEDICATIONS, NECTAR THICKENED LIQUIDS, OR PUDDING. THIS RN AND PT AGREED THAT TO REDUCE RISK OF CHOKING AND ASPIRATION TO STOP ATTEMPTING ORAL MEDICATION ADMINISTRATION. PT ABLE TO SWALLOW 1.5 TABLETS OF POTASSIUM (30MEQ) BUT UNABLE TO SWALLOW LACTOBACILLUS X2 AND PREDNISONE 40MG.
[2019-08-11] MEDS: FLECAINIDE 100 MG (TAMBOCOR) TAB PO SCH (07:55)
[2019-08-11] MEDS: ALLOPURINOL 100 MG (ZYLOPRIM) TAB PO SCH (07:55)
[2019-08-11] MEDS: CARVEDILOL 6.25 MG (COREG) TAB PO SCH (07:55)
[2019-08-11] MEDS: PANTOPRAZOLE 40 MG (PROTONIX) VIAL IV SCH (07:55)
--- NOTE | 2019-08-11 09:50 | Occupational Ther Daily Note ---
OT Current Status-Daily Note Subjective Pt alert, lying in bed. Nrsg in room. Pt agrees to therapy. Mental Status/Objective Patient Orientation: Person, Place, Time, Situation Attachments: Harper Catheter, IV, Oxygen ADL-Treatment Nrsg giving pt bed bath when MARIO walked in. Pt was able to lift UE's while nrsg applied deodorant. Pt agrees to complete oral care and brush hair. After giving pt supplies, pt completed oral care by self. Pt was handed brush and was able to use B UE to brush hair. Pt declined to use BSC. Pt lying in bed after session with call light/phone and safety measures in place. present in room. All needs met. Therapy Code Descriptions/Definitions Functional [place] Measure: 0=Not Assessed/NA 4=Minimal Assistance 1=Total Assistance 5=Supervision or Setup 2=Maximal Assistance 6=Modified [place] 3=Moderate Assistance 7=Complete IndependenceSCALE: Activities may be completed with or without assistive devices. 8-Vwqwkoemjc-dzsamsy completes the activity by him/herself with no assistance from a helper. 5-Set-up or Clean-up Assistance-helper sets up or cleans up; patient completes activity. [place] assists only prior to or following the activity. 4-Supervision or Touching Assistance-helper provides verbal cues and/or touching/steadying and/or contact guard assistance as patient completes activity. Assistance may be provided throughout the activity or intermittently. 3-Partial/Moderate Assistance-helper does LESS THAN HALF the effort. [place] lifts, holds or supports trunk or limbs, but provides less than half the effort. 2-Substantial/Maximal Assistance-helper does MORE THAN HALF the effort. [place] lifts or holds trunk or limbs and provides more than half the effort. 5-Ejdobtkkq-edmhoa does ALL the effort. Patient does none of the effort to complete the activity. Or, the assistance of 2 or more helpers is required for the patient to complete the activity. If activity was not attempted, code reason: 7-Patient Refused. 9-Not Applicable-not attempted and the patient did not perform the activity before the current illness, exacerbation or injury. 10-Not Attempted due to Environmental Limitations-(lack of equipment, weather restraints, etc.). 88-Not Attempted due to Medical Conditions or Safety Concerns. Oral Hygiene (QC): 5 OT Senior Care Goals Senior Care Goals Time Frame: Aug 13, 2019 Eating (QC): 6 Oral Hygiene (QC): 6 Toileting Hygiene (QC): 6 Shower/Bathe Self (QC): 5 Upper Body Dressing (QC): 6 Lower Body Dressing (QC): 6 On/Off Footwear (QC): 6 Additional Goals: 1-Demonstrate ADL Tasks, 2-Verbalize Understanding, 3-I mproveStrength/Sharad 1=Demonstrate adherence to instructed precautions during ADL tasks. 2=Patient will verbalize/demonstrate understanding of assistive devices/modifications for ADL. 3=Patient will improve strength/tolerance for activity to enable patient to perform ADL's. OT Education/Plan Problem List/Assessment Assessment: Decreased Activ Tolerance, Impaired Coordination, Impaired Funct Balance, Impaired Self-Care Skills Discharge Recommendations Plan/Recommendations: Continue POC Treatment Plan/Plan of Care Patient would benefit from OT for education, treatment and training to promote independence in ADL's, mobility, safety and/or upper extremity function for ADL's. Plan of Care: ADL Retraining, Caregiver Training, Functional Mobility, UE Funct Exercise/Act Treatment Duration: Aug 13, 2019 Frequency: 5 times per week Estimated Hrs Per Day: .25 hour per day Agreement: Yes Rehab Potential: Guarded Time/GCodes Start Time: 09:30 Stop Time: 09:45 Total Time Billed (hr/min): 15 Billed Treatment Time 1 visit-ADL 1 (15 min) MARIANN SHEA Aug 11, 2019 09:50 POS
--- NOTE | 2019-08-11 10:37 | Physical Therapy Daily Note ---
PT Daily Note-Current Subjective Pt. in bed and agrees to therapy, states she would like to walk. Mental Status Attachments: Oxygen (2L) Transfers SCALE: Activities may be completed with or without assistive devices. 7-Alvowbulpz-avkixpi completes the activity by him/herself with no assistance from a helper. 5-Set-up or Clean-up Assistance-helper sets up or cleans up; patient completes activity. [place] assists only prior to or following the activity. 4-Supervision or Touching Assistance-helper provides verbal cues and/or touchi ng/steadying and/or contact guard assistance as patient completes activity. Assistance may be provided throughout the activity or intermittently. 3-Partial/Moderate Assistance-helper does LESS THAN HALF the effort. [place] lifts, holds or supports trunk or limbs, but provides less than half the effort. 2-Substantial/Maximal Assistance-helper does MORE THAN HALF the effort. [place] lifts or holds trunk or limbs and provides more than half the effort. 3-Otckvbnjp-ijkztq does ALL the effort. Patient does none of the effort to complete the activity. Or, the assistance of 2 or more helpers is required for the patient to complete the activity. If activity was not attempted, code reason: 7-Patient Refused. 9-Not Applicable-not attempted and the patient did not perform the activity before the current illness, exacerbation or injury. 10-Not Attempted due to Environmental Limitations-(lack of equipment, weather restraints, etc.). 88-Not Attempted due to Medical Conditions or Safety Concerns. Lying to Sitting/Side of Bed(Q: 4 Sit to Stand (QC): 2 Chair/Kzi-il-Ndlqm Xfer(QC): 2 initially min-mod A with sit to stand, end of session was a max assist to stand from chair Weight Bearing Right Lower Extremity: Right Weight Bearing/Tolerated Left Lower Extremity: Left Weight Bearing/Tolerated Gait Training Does the Patient Walk?: Yes Distance: x 40 ft, x 5 ft Gait Persons Needed: 2 Gait Assistive Device: FWW pt. was close CGA initially with gait. Pt.'s legs began to give out requiring nurse assist with chair for patient to rest. Pt. able to ambulate an additional 5 ft before legs began to give out again, max assist to maintain balance and nurse aide brought chair under patient. Pt. max assist to transfer chair to bedside chair. Exercises Seated Therapy Exercises: Ankle pumps, Long arc quads Seated Reps: 20 Treatments gait, transfers Assessment Current Status: Fair Progress Pt. fatigued very quickly with ambulation requiring max assist at end of session. Pt. needed cues to stay close to walker. Pt. up in bedside chair post session with call light, O2 in situ and all needs met. Pt. would continue to benefit from skilled PT for further strengthening and mobility. PT Sanitary Inspector Goals Sanitary Inspector Goals PT Sanitary Inspector Goals Time Frame: Aug 27, 2019 Roll Left & Right (QC): 5 Sit to Lying (QC): 5 Lying-Sitting on Side/Bed(QC): 5 Sit to Stand (QC): 5 Chair/Hap-qb-Jbskf Xfer(QC): 5 Toilet Transfer (QC): 5 Car Transfer (QC): 5 Does the Patient Walk: No and Walking Goal IS indicated Walk 10 feet (QC): 5 Walk 50ft with 2 Turns (QC): 5 Walk 150 ft (QC): 9 Walking 10ft on Uneven Surface: 9 1 Step (curb) (QC): 9 4 Steps (QC): 9 12 Steps (QC): 9 Picking up an Object (QC): 9 Does the Pt use WC or Scooter?: No Type: N/A Type: N/A PT Plan Treatment/Plan Treatment Plan: Continue Plan of Care Treatment Plan: Bed Mobility, Education, Functional Activity Sharad, Functional Strength, Gait, Safety, Therapeutic Exercise, Transfers Treatment Duration: Aug 27, 2019 Frequency: 6 times per week Estimated Hrs Per Day: .25 hour per day Patient and/or Family Agrees t: Yes Time/GCodes Time In: 1000 Time Out: 1025 Total Billed Treatment Time: 25 Total Billed Treatment , FA 25' JERO COY PT Aug 11, 2019 10:37 POS
[2019-08-11] MEDS ORDERED: NS IV 500 ML 500 ML IV SCH (10:45)
--- NOTE | 2019-08-11 10:54 | NUR ---
PT BACK IN ROOM AFTER L U OSCOPY. REPORT GIVEN BY NURSE
--- NOTE | 2019-08-11 11:00 | NUR ---
DISCHARGE PLANNING: Dr Alba is intending to discharge patient to her previous SKILLED placement at [facility]. She will get 1 unit of PRBC's prior to discharge today. She will need to reschedule her previously cancelled appointment with Dr. Pereira. She will follow-up with Dr. Payne in the [facility].
--- NOTE | 2019-08-11 11:36 | NUR ---
"RD ASSESSMENT PMHx: afib; HTN; GERD; RA; hiatal hernia; DM; recent diagnosis of CA PT INTERACTION: Pt was awake and pleasant during follow-up. Note present at bedside. Pt states current appetite is still pretty poor. Note pt avg PO intake of <25% x3d, per chart review. Pt states 1 episode of nausea on 08/10, which she attributes to her chemotherapy treatment that day. Pt states some recent issues with constipation since last assessment. Note last BM was 08/09, and pt not currently on bowel regimen per chart review. Note pt having difficulty swallowing, per chart review. ABNORMAL NUTRITION-RELATED LAB VALUES LOW: Ca 7.0; Pro 4.0; alb 1.6 HIGH: BUN 23; glu 130; bili 1.2; AST 87 Est. kcal needs: 2277-1650 kcal | 25-30 kcal/kg Est. Pro needs: 71-85 g Pro | 1.0-1.2 g Pro/kg PES STATEMENT: Inadequate oral intake (NI-2.1) related to loss of appetite | nausea | constipation as evidenced by pt interview | avg PO intake <25% x3d INTERVENTION: Continue with current diet order of DYS2 Mechanically Altered diet. Pt may benefit from swallow evaluation. Add Ensure Enlive (strawberry) to meals TID. Provides 350 kcal and 13 g Pro per serving. Will continue to follow and reassess as pt needs and status change. MONITOR/EVALUATE: PO Intake; Plan of Care; Hydration Status; Weight Status; Lab Values Kosta Rodriguez, MS, RD, LD"
[2019-08-11] MEDS ORDERED: PRD20T PO (11:53)
[2019-08-11] MEDS ORDERED: MIRT7.5T8 PO (13:49)
--- NOTE | 2019-08-11 13:49 | Progress Note ---
Standard Progress Note Progress Notes/Assess & Plan Date Seen by a Provider: Aug 11, 2019 Time Seen by a Provider: 13:45 Progress/Assessment & Plan 74-year-old female with FUO and extensive workup at several outside hospitals over the past 2+ months. Recent CT scan locally showed bilateral axillary lymphadenopathy as well as splenomegaly. Status post left axillary lymph node biopsy on 08/02/2019. 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 Also BCL-2 and BCL 6 positive. 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 Ki-67 almost 100 percent. Confirmatory tests for C-MYC pending. Patient is a awake and denied any major problems. Her appetite is good and she is eating solids. Having difficulty swallowing liquids. Hemoglobin 7.9 g/dL today and receiving one unit PRBC. Discharge planned to [facility] later today. Schedule an appointment at the cancer center tomorrow to receive Neulasta post chemotherapy. Patient will need physical therapy/occupational therapy for strengthening and ambulation. Focused Exam Time of Focused Exam: 18:46 LEEROY BANERJEE Aug 11, 2019 13:49 POS
--- NOTE | 2019-08-11 13:49 | Discharge Summary ---
Discharge Summary Reconcile Patient Problems Problems Reviewed?: Yes Hospital Course Hospital Course Date of Admission: Jul 27, 2019 at 16:25 Admission Diagnosis : sepsis Family Physician/Provider: Date of Discharge: 08/11/19 Discharge Diagnosis: diffuse large B-cell lymphoma Hospital Course: She Hawkins is a 74-year-old female with recurrent hospitalizations for chronic occult GI bleeding and fever of unknown origin who presented with sepsis. There was no source identified for sepsis though there was concern for pneumonia and she was treated with IV antibiotics. Despite treatment with appropriate antibi otics, she continued to have fevers. Further evaluation for fever of unknown origin revealed axillary lymphadenopathy. she underwent excisional biopsy of a left axillary lymph node. This revealed diffuse large B-cell lymphoma. She was started on chemotherapy with mini R-CHOP. Her course was complicated by ongoing anemia and required multiple transfusions. She showed reschedule her appointment with Dr. Pereira as an outpatient for further GI evaluation. She is scheduled for a Neulasta injection at the cancer center tomorrow. She will have her second round of chemotherapy and a few weeks. She will have ongoing lab monitoring with Dr. Payne. Labs and Pending Lab Test: Laboratory Tests 08/10/19 16:11: Glucometer 208H 08/10/19 20:09: Glucometer 186H 08/10/19 21:13: Hemoglobin 8.1L, Hematocrit 25L 08/11/19 04:34: Hemoglobin 7.9L, Hematocrit 25L, White Blood Count 3.7L, Red Blood Count 2.69L, Mean Corpuscular Volume 92, Mean Corpuscular Hemoglobin 29, Mean Corpuscular Hemoglobin Concent 32, Red Cell Distribution Width 19.6H, Platelet Count 102L, Mean Platelet Volume 10.0, Neutrophils (%) (Auto) 75, Lymphocytes (%) (Auto) 5L, Monocytes (%) (Auto) 19H, Eosinophils (%) (Auto) 0, Basophils (%) (Auto) 0, Neutrophils # (Auto) 2.8, Lymphocytes # (Auto) 0.2L, Monocytes # (Auto) 0.7, Eosinophils # (Auto) 0.0, Basophils # (Auto) 0.0, Neutrophils % (Manual) 85, Lymphocytes % (Manual) 2, Monocytes % (Manual) 12, Eosinophils % (Manual) 1, Sodium Level 137, Potassium Level 4.5, Chloride Level 107, Carbon Dioxide Level 22, Anion Gap 8, Blood Urea Nitrogen 23H, Creatinine 0.68, Estimat Glomerular Filtration Rate > 60, BUN/Creatinine Ratio 34, Glucose Level 130H, Calcium Level 7.0L, Corrected Calcium 8.9, Total Bilirubin 1.2H, Aspartate Amino Transf (AST/SGOT) 87H, Alanine Aminotransferase (ALT/SGPT) 23, Alkaline Phosphatase 134, Lactate Dehydrogenase 2411H, Total Protein 4.0L, Albumin 1.6L 08/11/19 10:54: Glucometer 156H Microbiology 07/29/19 Blood Culture - Final, Complete No growth 08/03/19 Gram Stain - Final, Complete 08/03/19 Body Fluid Culture - Final, Complete No growth 07/27/19 MRSA Screen - Final, Complete MRSA not isolated 08/08/19 Urine Culture - Preliminary, Resulted Enterococcus faecium Home Meds Active Prednisone 20 Mg Tab 40 Mg PO DAILY@0700 4 Days Reported Promethazine HCl 12.5 Mg Tablet 12.5 Mg PO Q6H PRN Miralax (Polyethylene Glycol 3350) 17 Gm Powd.pack 17 Gm PO HS Colace (Docusate Sodium) 100 Mg Capsule 100 Mg PO BID Pepcid (Famotidine) 20 Mg Tablet 20 Mg PO BID Zofran (Ondansetron HCl) 4 Mg Tab 4 Mg PO Q4H PRN Pulmicort (Budesonide) 0.5 Mg/2 Ml Ampul.neb 0.5 Mg NEB BID Miralax (Polyethylene Glycol 3350) 17 Gm Powd.pack 17 Gm PO DAILY PRN Preservision Areds Tablet (Vit A/Vit C/Vit E/Zinc/Copper) 1 Each Tablet 1 Tab PO DAILY Vitamin D3 (Cholecalciferol (Vitamin D3)) 5,000 Unit Capsule 5,000 Unit PO DAILY Tylenol (Acetaminophen) 325 Mg Tablet 650 Mg PO Q4H PRN Metformin HCl 500 Mg Tablet 500 Mg PO DAILY Senna Plus Tablet (Sennosides/Docusate Sodium) 1 Each Tablet 1 Tab PO BID PRN Calcium 600 + Vit D 200 Tablet (Calcium Carbonate/Vitamin D3) 1 Each Tablet 1 Tab PO DAILY Premarin (Estrogens Conjugated) 0.45 Mg Tab 0.45 Mg PO DAILY Atorvastatin Calcium 20 Mg Tablet 20 Mg PO HS Coreg (Carvedilol) 6.25 Mg Tablet 6.25 Mg PO BID HOLD MED AND CONTACT MD FOR SBP <100 OR PULSE <60 Mirtazapine 15 Mg Tablet 15 Mg PO HS Celexa (Citalopram Hydrobromide) 10 Mg Tablet 10 Mg PO BID Iprat-Albut 0.5-3(2.5) mg/3 ml (Ipratropium/Albuterol Sulfate) 3 Ml Ampul.neb 3 Ml NEB QID Pantoprazole Sodium 40 Mg Tablet. 40 Mg PO DAILY Furosemide 20 Mg Tablet 20 Mg PO DAILY Flecainide Acetate 100 Mg Tablet 100 Mg PO BID Ferrous Sulfate 325 Mg Tablet 325 Mg PO DAILY Aspir 81 (Aspirin) 81 Mg Tablet. 81 Mg PO DAILY Instructions to Patient/Family Assessment/Instructions take medications as prescribed. Continue prednisone. Follow up with Dr. Payne tomorrow for Neulasta injection. Reschedule appointment with Dr. Pereira. Dr. Payne will continue to monitor her labs. Follow Up Appt.: next residential rounds Skilled NF Admit to: [facility]ification ([facility]) I certify that SNF services are required to be given on an inpatient basis because of the above named patient's need for fci care on a continuing basis for the conditions(s) for which he/she was receiving inpatient hospital services prior to his/her transfer to the SNF. Long-Term Facility Order: Nursing Services, Drop Hammer Mechanic-Evaluate & Treat, Physical Therapy-Evaluate & Treat, Speech Language-Evaluate & Treat Oxygen Delivery Method: Nasal Cannula Discharge Diet: No Restrictions Daily Activity as Tolerated: Yes Resuscitation Status: Do Not Resuscitate Denisa Esquivel Aug 11, 2019 13:41 Pneu Vac Indicated: Yes Discharge Physical Exam General: Alert, Oriented X3, Cooperative, No Acute Distress HEENT: Atraumatic, EOMI, Mucous Memb Moist/[place] Lungs: Clear to Auscultation, Normal Air Movement Heart: Regular Rate, Normal S1, Normal S2, No Murmurs Abdomen: Normal Bowel Sounds, Soft, No Tenderness Skin: No Rashes, No Significant Lesion Neuro: Normal Speech Psych/Mental Status: Mental Status NL, Mood NL DENISA ESQUIVEL MD Aug 11, 2019 13:47 POS
--- NOTE | 2019-08-11 14:07 | NUR ---
Met with pt and feels better today. Pt accepting of plan to return to [facility]. she will be seen at the Cancer Center tomorrow. Will follow.
== END 2019-08-11 16:01 | DRG 853 ==
LOC: EDUNIT# 15:52 → ER 15:53 → ICU 16:25 → 4TH 17:17 → UNDOADMOB 17:17 → 4TH 07-28 09:56 → ICU 07-31 19:25 → CSD 08-02 13:17 → 4TH 08-04 09:12
PROVIDERS: ADMIT Internal Medicine; ATTEND Internal Medicine
PROC: 07B60ZX Excision of Left Axillary Lymphatic, Open Approach, Diagnostic (ICD-10-PCS; principal; 2019-08-02 16:24)
PROC: 0W993ZX Drainage of Right Pleural Cavity, Percutaneous Approach, Diagnostic (ICD-10-PCS; 2019-08-03)
DX: A41.9 Sepsis, unspecified organism (principal); R65.20 Severe sepsis without septic shock; J18.1 Lobar pneumonia, unspecified organism; J44.0 Chronic obstructive pulmonary disease with (acute) lower respiratory infection; N39.0 Urinary tract infection, site not specified; K92.2 Gastrointestinal hemorrhage, unspecified; C85.14 Unspecified B-cell lymphoma, lymph nodes of axilla and upper limb; I50.33 Acute on chronic diastolic (congestive) heart failure; D61.818 Other pancytopenia; E87.2 Acidosis; I38 Endocarditis, valve unspecified; G93.41 Metabolic encephalopathy; Z66 Do not resuscitate; D50.0 Iron deficiency anemia secondary to blood loss (chronic); I48.0 Paroxysmal atrial fibrillation; I11.0 Hypertensive heart disease with heart failure; E11.9 Type 2 diabetes mellitus without complications; J30.2 Other seasonal allergic rhinitis; E87.6 Hypokalemia; E83.42 Hypomagnesemia; E83.39 Other disorders of phosphorus metabolism; R13.10 Dysphagia, unspecified; K21.9 Gastro-esophageal reflux disease without esophagitis; F41.9 Anxiety disorder, unspecified; F32.9 Major depressive disorder, single episode, unspecified; K59.09 Other constipation; K44.9 Diaphragmatic hernia without obstruction or gangrene; M06.9 Rheumatoid arthritis, unspecified; Z99.81 Dependence on supplemental oxygen; Z79.84 Long term (current) use of oral hypoglycemic drugs
CPT/HCPCS: 36415; 36569; 36600; 51702; 71045; 71250; 74176; 76604; 76700; 76937; 80048; 80053; 80074; 80076; 81000; 82042; 82150; 82247; 82248; 82550; 82805; 82945; 82962; 83605; 83615; 83690; 83735; 83880; 83986; 84100; 84145; 84157; 84478; 84550; 85007; 85014; 85018; 85025; 85027; 85610; 85652; 85730; 86038; 86141; 86431; 86850; 86900; 86901; 86920; 87040; 87070; 87077; 87081; 87088; 87186; 87205; 87631; 87804; 88112; 88305; 89051; 94640; 94760; 96361; 96367; 96374; 96375; 96411; 96413; 96415; J9312

== ENCOUNTER → 2019-09-27 | Outpatient (CLI) | payer MEDICARE, OTHER ==
[~2019-09-27] MED LIST changes: +DOCU-143 PO; +FAMO-119 PO; +METF500T19; -METF500T8; +MIRT7.5T8 PO; +ONDN4T PO; +PRD20T PO; +PROM12.511 PO; -SENN-233 PO; +SENN1TAB67 PO
== END ==
LOC: RAD 11:27
PROVIDERS: ATTEND Internal Medicine
DX: Z12.31 Encounter for screening mammogram for malignant neoplasm of breast (principal)
CPT/HCPCS: 77067

== ENCOUNTER 2019-10-14 17:44 | Inpatient (IN) | payer MEDICARE, OTHER ==
[~2019-10-14] VITALS: Ht 167 cm; Wt 55.9 kg
[2019-10-14] MEDS ORDERED: LACTATED RINGERS 1,000 ML IV ONE (18:21)
[2019-10-14 18:31] LABS: BASOPHILS # (AUTO) 0.1 10^3/uL (0.0-0.1); BASOPHILS % (AUTO) 1 % (0-10); EOSINOPHILS # (AUTO) 0.2 10^3/uL (0.0-0.3); EOSINOPHILS % (AUTO) 1 % (0-10); HEMATOCRIT 35 % (35-52); LYMPHOCYTES # (AUTO) 1.3 X 10^3 (1.0-4.0); LYMPHOCYTES % (AUTO) 6 % (12-44); MEAN CORPUSCULAR HEMOGLOBIN 32 PG (25-34); MEAN CORPUSCULAR HGB CONC 32 G/DL (32-36); MEAN CORPUSCULAR VOLUME 102 FL (80-99); MEAN PLATELET VOLUME 8.7 FL (7.4-10.4); MONOCYTES # (AUTO) 1.4 X 10^3 (0.0-1.0); MONOCYTES % (AUTO) 6 % (0-12); NEUTROPHILS # (AUTO) 19.9 X 10^3 (1.8-7.8); NEUTROPHILS % (AUTO) 87 % (42-75); PLATELET COUNT 257 10^3/uL (130-400); RED CELL DISTRIBUTION WIDTH 16.6 % (10.0-14.5); WHITE BLOOD COUNT 22.9 10^3/uL (4.3-11.0)
[2019-10-14 18:32] LABS: BILIRUBIN,URINE NEGATIVE (NEGATIVE); CLARITY,URINE CLEAR; COLOR,URINE YELLOW; GLUCOSE, URINE (UA) NEGATIVE (NEGATIVE); KETONES,URINE NEGATIVE (NEGATIVE); LEUKOCYTE ESTERASE ,URINE NEGATIVE (NEGATIVE); NITRITE,URINE NEGATIVE (NEGATIVE); PROTEIN,URINE TRACE (NEGATIVE)
[2019-10-14 18:35] LABS: PROTHROMBIN TIME PATIENT 13.4 SEC (12.2-14.7)
--- NOTE | 2019-10-14 18:37 | ED General ---
General Chief Complaint: Fever-Adult/Adol Stated Complaint: TEMP,WEAK, Nursing Triage Note: SUDDEN ONSET OF FEVER AND WEAKNESS STARTING AT 1700 TODAY. TOOK TYLENOL AT 1700. LAST CHEMO / FOR LYMPHOMA Nursing Sepsis Screen: Possible Severe Sepsis Risk Source of Information: Patient Exam Limitations: No Limitations ([facility]) History of Present Illness Date Seen by Provider: Oct 14, 2019 Time Seen by Provider: 18:06 Initial Comments This is a 74 y/o female w/ PMH of paroxysmal Afib, non-insulin dependent DMII, HTN, COPD, and large B cell lymphoma who presented to the ED with fever and chills that onset around 1700 today. Denies cough, abd pain, constipation, UTI sx, chest pain. pt has taken Tylenol for fever at ~1700 today. Has not taken any else. Pt also c/o of weakness and mild headache. She has also had episodes of diarrhea for the past few days. Pt is followed by Dr. Hopper for chemo and Reports she has last received chemotherapy on 10/05/2019. Denies any other sx time. Timing/Duration: 1-3 Hours Severity: Mild Modifying Factors: improves with Other (none) Associated Systoms: No Chest Pain, No Cough, No Diaphoresis; Fever/Chills, Headaches; No Nausea/Vomiting, No Shortness of Air; Weakness ([facility]) Allergies and Home Medications Allergies Coded Allergies: Cephalexin Monohydrate (Verified Allergy, Unknown, has tolerated Ancef, 08/03/19) Penicillins (Verified Allergy, Unknown, Has tolerated Ancef, 08/03/19) iodine (Verified Allergy, Unknown, 07/08/19) linaclotide (Verified Allergy, Unknown, 07/28/19) lubiprostone (Verified Allergy, Unknown, 07/28/19) venlafaxine HCl (Verified Allergy, Unknown, 07/08/19) Home Medications Acetaminophen 325 Mg Tablet, 650 MG PO Q4H PRN for PAIN-MILD, (Reported) Aspirin 81 Mg Tablet., 81 MG PO DAILY, (Reported) Atorvastatin Calcium 20 Mg Tablet, 20 MG PO HS, (Reported) Budesonide 0.5 Mg/2 Ml Ampul.neb, 0.5 MG NEB BID, (Reported) Calcium Carbonate/Vitamin D3 1 Each Tablet, 1 TAB PO DAILY, (Reported) Carvedilol 6.25 Mg Tablet, 6.25 MG PO BID, (Reported) HOLD MED AND CONTACT MD FOR SBP <100 OR PULSE <60 Cholecalciferol (Vitamin D3) 5,000 Unit Capsule, 5,000 UNIT PO DAILY, (Reported) Citalopram Hydrobromide 10 Mg Tablet, 10 MG PO BID, (Reported) Docusate Sodium 100 Mg Capsule, 100 MG PO BID, (Reported) Estrogens Conjugated 0.45 Mg Tab, 0.45 MG PO DAILY, (Reported) Famotidine 20 Mg Tablet, 20 MG PO BID, (Reported) Ferrous Sulfate 325 Mg Tablet, 325 MG PO DAILY, (Reported) Flecainide Acetate 100 Mg Tablet, 100 MG PO BID, (Reported) Furosemide 20 Mg Tablet, 20 MG PO DAILY, (Reported) Ipratropium/Albuterol Sulfate 3 Ml Ampul.neb, 3 ML NEB QID, (Reported) Metformin HCl 500 Mg Tablet, 500 MG PO DAILY, (Reported) Mirtazapine 15 Mg Tablet, 15 MG PO HS, (Reported) Mirtazapine 7.5 Mg Tablet, 7.5 MG PO HS Prescribed by: DENISA ESQUIVEL on 08/11/19 1349 Ondansetron HCl 4 Mg Tab, 4 MG PO Q4H PRN for NAUSEA/VOMITING-1ST LINE, (Reported) Pantoprazole Sodium 40 Mg Tablet.dr, 40 MG PO DAILY, (Reported) Polyethylene Glycol 3350 17 Gm Powd.pack, 17 GM PO DAILY PRN for CONSTIPATION- 2ND LINE, (Reported) Polyethylene Glycol 3350 17 Gm Powd.pack, 17 GM PO HS, (Reported) Prednisone 20 Mg Tab, 40 MG PO DAILY@0700 Prescribed by: DENISA ESQUIVEL on 08/11/19 1153 Promethazine HCl 12.5 Mg Tablet, 12.5 MG PO Q6H PRN for NAUSEA/VOMITING-2ND LINE, (Reported) Sennosides/Docusate Sodium 1 Each Tablet, 1 TAB PO BID PRN for CONSTIPATION-6TH LINE, (Reported) Vit A/Vit C/Vit E/Zinc/Copper 1 Each Tablet, 1 TAB PO DAILY, (Reported) Patient Home Medication List Home Medication List Reviewed: Yes (PETTY MORLEY MD) Review of Systems Review of Systems Constitutional: chills, fever, weakness EENTM: no symptoms reported Respiratory: No cough, No dyspnea on exertion, No short of breath Cardiovascular: No chest pain, No palpitations Gastrointestinal: No abdominal pain, No constipation, No diarrhea, No nausea, No vomiting Genitourinary: No dysuria, No frequency, No hematuria, No incontinence Musculoskeletal: no symptoms reported Skin: no symptoms reported ([facility] All Other Systems Reviewed Negative Unless Noted: Yes (PETTY MORLEY MD) Past Ztemsds-Hslybp-Rpmcel Hx Past Med/Social Hx: Reviewed Nursing Past Med/Soc Hx (PETTY MORLEY MD) Patient Social History 2nd Hand Smoke Exposure: No Recent Foreign Travel: No Contact w/Someone Who Travel: No Recent Infectious Disease Expo: No Recent Hopitalizations: Yes Physical Abuse: No Sexual Abuse: No Mistreated: No Fear: No ([facility] Immunizations Up To Date Tetanus Booster (TDap): Unknown Date of Pneumonia Vaccine: May 03, 2009 Date of Influenza Vaccine: May 03, 2019 [facility] Seasonal Allergies Seasonal Allergies: Yes [facility] Past Medical History Surgeries: Yes Abdominal, Appendectomy, Bladder Surgery, Cardiac, Gallbladder, Hysterectomy Respiratory: Yes Pneumonia, COPD Cardiac: Yes Atrial Fibrillation, Hypertension, Valvular Heart Disease 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 Genitourinary: Yes (BLADDER PROLAPSE--S/P BLADDER SURGERIES WITH VAGINAL MESH) Bladder Infection Gastrointestinal: Yes (dysphagia) Gastroesophageal Reflux, Gastrointestinal Bleed, Chronic Constipation, Hiatal Hernia Musculoskeletal: Yes Rheumatoid Arthritis Endocrine: Yes Diabetes, Non-Insulin dep HEENT: No Cancer: Yes Lymphoma What Type of Treatment Did You: Chemotherapy Psychosocial: Yes Anxiety, Depression Integumentary: No Blood Disorders: Yes (ANEMIA--UNKNOWN CAUSE) Adverse Reaction/Blood Tranf: No ([facility] Family Medical History Reviewed Nursing Family Hx (PETTY MORLEY MD) No Pertinent Family Hx ([facility]) Physical Exam-Suspected Sepsis Physical Exam Vital Signs Vital Signs - First Documented 10/14/19 17:50 Temp 39.2 Pulse 108 Resp 18 B/P (MAP) 178/78 (111) Pulse Ox 92 O2 Delivery Room Air (PETTY MROLEY MD) Vital Signs Capillary Refill : Less Than 3 Seconds ([facility]ET[facility]) Blood Pressure Mean: 111 Height, Weight, BMI Height: '" Weight: lbs. oz. kg; 20.00 BMI Method:Estimated General Appearance: No Apparent Distress, WD/WN, Thin Eyes: Bilateral Eye Normal Inspection, Bilateral Eye PERRL HEENT: TMs Normal, Normal ENT Inspection, Pharynx Normal Respiratory: Chest Non Tender, Lungs Clear, Normal Breath Sounds, No Accessory Muscle Use, No Respiratory Distress Cardiovascular: Regular Rate, Rhythm, No Edema, No Gallop, No JVD, No Murmur Back: Normal Inspection, No CVA Tenderness Extremity: Normal Capillary Refill, Normal Inspection, No Pedal Edema Neurologic/Psychiatric: Alert, Oriented x3 Skin: No damp; other (warm to touch) ([facility]EN ZAVALETA) General Appearance: No Apparent Distress, Thin Respiratory: Lungs Clear, Normal Breath Sounds Cardiovascular: No Murmur, Tachycardia Gastrointestinal: Non Tender, Soft Back: Normal Inspection, No CVA Tenderness Neurologic/Psychiatric: Alert, Oriented x3 Skin: warm/dry; No ulcerations; other (warm to touch) (PETTY MORLEY MD) Focused Exam Lactate Level 10/14/19 18:01: Lactic Acid Level 1.58 (PETTY MORLEY MD) Lactic Acid Level Laboratory Tests Test 10/14/19 18:01 Lactic Acid Level 1.58 MMOL/L (0.50-2.00) (PETTY MORLEY MD) Progress/Results/Core Measures Suspected Sepsis Recent Fever Within 48 Hours: Yes Infection Criteria Present: Suspected New Infection New/Unexplained Altered Menta: No Sepsis Screen: Possible Severe Sepsis Risk SIRS Temperature: Pulse: 108 Respiratory Rate: 18 Laboratory Tests 10/14/19 18:01: Blood Pressure 178 /78 Mean: 111 10/14/19 18:01: Laboratory Tests 10/14/19 18:01: ([facility]AREN ZAVALETA) Results/Orders Lab Results Laboratory Tests Test 10/14/19 18:01 10/14/19 18:15 Range/Units White Blood Count 22.9 H 4.3-11.0 10^3/uL Red Blood Count 3.40 L 4.35-5.85 10^6/uL Hemoglobin 11.0 L 11.5-16.0 G/DL Hematocrit 35 35-52 % Mean Corpuscular Volume 102 H 80-99 FL Mean Corpuscular Hemoglobin 32 25-34 PG Mean Corpuscular Hemoglobin Concent 32 32-36 G/DL Red Cell Distribution Width 16.6 H 10.0-14.5 % Platelet Count 257 130-400 10^3/uL Mean Platelet Volume 8.7 7.4-10.4 FL Neutrophils (%) (Auto) 87 H 42-75 % Lymphocytes (%) (Auto) 6 L 12-44 % Monocytes (%) (Auto) 6 0-12 % Eosinophils (%) (Auto) 1 0-10 % Basophils (%) (Auto) 1 0-10 % Neutrophils # (Auto) 19.9 H 1.8-7.8 X 10^3 Lymphocytes # (Auto) 1.3 1.0-4.0 X 10^3 Monocytes # (Auto) 1.4 H 0.0-1.0 X 10^3 Eosinophils # (Auto) 0.2 0.0-0.3 10^3/uL Basophils # (Auto) 0.1 0.0-0.1 10^3/uL Neutrophils % (Manual) 58 % Lymphocytes % (Manual) 2 % Monocytes % (Manual) 6 % Eosinophils % (Manual) 2 % Basophils % (Manual) 0 % Metamyelocytes % 1 % Band Neutrophils 31 % Polychromasia SLIGHT Anisocytosis SLIGHT Prothrombin Time 13.4 12.2-14.7 SEC INR Comment 1.0 0.8-1.4 Activated Partial Thromboplast Time 26 24-35 SEC Sodium Level 136 135-145 MMOL/L Potassium Level 3.8 3.6-5.0 MMOL/L Chloride Level 103 98-107 MMOL/L Carbon Dioxide Level 21 21-32 MMOL/L Anion Gap 12 5-14 MMOL/L Blood Urea Nitrogen 15 7-18 MG/DL Creatinine 0.77 0.60-1.30 MG/DL Estimat Glomerular Filtration Rate > 60 BUN/Creatinine Ratio 19 Glucose Level 122 H 70-105 MG/DL Lactic Acid Level 1.58 0.50-2.00 MMOL/L Calcium Level 8.9 8.5-10.1 MG/DL Corrected Calcium 9.1 8.5-10.1 MG/DL Total Bilirubin 0.4 0.1-1.0 MG/DL Aspartate Amino Transf (AST/SGOT) 18 5-34 U/L Alanine Aminotransferase (ALT/SGPT) 16 0-55 U/L Alkaline Phosphatase 247 H 40-136 U/L Total Protein 6.9 6.4-8.2 GM/DL Albumin 3.8 3.2-4.5 GM/DL Urine Color YELLOW Urine Clarity CLEAR Urine pH 8.0 5-9 Urine Specific [place] 1.020 1.016-1.022 Urine Protein TRACE H NEGATIVE Urine Glucose (UA) NEGATIVE NEGATIVE Urine Ketones NEGATIVE NEGATIVE Urine Nitrite NEGATIVE NEGATIVE Urine Bilirubin NEGATIVE NEGATIVE Urine Urobilinogen 0.2 < = 1.0 MG/DL Urine Leukocyte Esterase NEGATIVE NEGATIVE Urine RBC (Auto) NEGATIVE NEGATIVE Urine RBC RARE /HPF Urine WBC NONE /HPF Urine Squamous Epithelial Cells 5-10 /HPF Urine Crystals NONE /LPF Urine Bacteria NEGATIVE /HPF Urine Casts NONE /LPF Urine Mucus NEGATIVE /LPF Urine Culture Indicated CULTURE PENDING (PETTY MORLEY MD) Micro Results Microbiology 10/14/19 Influenza Types A,B Antigen ([facility]) - Final, Complete (PETTY MORLEY MD) My Orders Orders - PETTY MORLEY MD Cbc With Automated Diff (10/14/19 18:21) Comprehensive Metabolic Panel (10/14/19 18:21) Blood Culture (10/14/19 18:21) Sputum Culture (10/14/19 18:21) Urinalysis (10/14/19 18:21) Urine Culture (10/14/19 18:21) Protime With Inr (10/14/19 18:21) Partial Thromboplastin Time (10/14/19 18:21) Chest 1 View, Ap/Pa Only (10/14/19 18:21) Ed Iv/Invasive Line Start (10/14/19 18:21) Ed Iv/Invasive Line Start (10/14/19 18:21) Vital Signs Adult Sepsis Patie Q15M (10/14/19 18:21) O2 (10/14/19 18:21) Remove Rings In Anticipation O (10/14/19 18:21) Lactic Acid Analyzer (10/14/19 18:21) Influenza A And B Antigens (10/14/19 18:21) Lactated Ringers (Lr 1000 Ml Iv Solution (10/14/19 18:21) Manual Differential (10/14/19 18:01) Famotidine Tablet (Pepcid Tablet) (10/14/19 18:44) Ibuprofen Tablet (Motrin Tablet) (10/14/19 18:44) Meropenem (Merrem 500 Mg) (10/14/19 20:00) Vancomycin Injection (Vancomycin Injecti (10/14/19 20:00) Oseltamivir 75 Mg Capsule (Tamiflu 75 (10/14/19 20:00) General/Regular (10/14/19 Dinner) (PETTY MORLEY MD) Medications Given in ED Current Medications Medications Dose Ordered Sig/Dino Route Start Time Stop Time Status Last Admin Dose Admin Lactated Ringer's 1,000 ml @ 0 mls/hr Q0M ONCE IV 10/14/19 18:21 10/14/19 18:23 DC 10/14/19 18:42 1,000 MLS/HR Meropenem 500 mg/ Sterile Water 10 ml @ 200 mls/hr ONCE ONCE IV 10/14/19 20:00 10/14/19 20:02 DC 10/14/19 19:59 200 MLS/HR Oseltamivir Phosphate 75 mg ONCE ONCE PO 10/14/19 20:00 10/14/19 20:01 DC 10/14/19 20:10 75 MG Vancomycin HCl 1000 mg/Sodium Chloride 250 ml @ 250 mls/hr ONCE ONCE IV 10/14/19 20:00 10/14/19 20:59 10/14/19 20:10 250 MLS/HR (PETTY MORLEY MD) Vital Signs/I&O 10/14/19 10/14/19 17:50 18:49 Temp 39.2 39.2 Pulse 108 Resp 18 B/P (MAP) 178/78 (111) Pulse Ox 92 O2 Delivery Room Air (PETTY MORLEY MD) Vital Signs/I&O Capillary Refill : Less Than 3 Seconds ([facility]) Blood Pressure Mean: 111 Progress Note : Time: 18:08 Progress Note Seen and evaluated. IVF and sepsis work up ordered. ([facility]) Progress Note : Progress Note I have seen and evaluated the patient and agree with above except as indicated. I have directed the plan of care. Patient is here with fever, chills and overall not feeling well. She does have large B-cell lymphoma and completed chemotherapy on 10/05/19. Noted fever today and did take Tylenol at about 4:30 or 5 PM. Continues to have fever currently. Denies nausea, vomiting or diarrhea. Assessment as above. Plan is for sepsis order set with LR 1 L bolus, Pepcid 20 mg PO and ibuprofen 400 mg by mouth ordered. Monitor patient. 1954: I did discuss the case with Dr. Martinez. She is on-call for hospitalist service. Patient has right basilar pneumonitis and this may represent pneumonia in a chemotherapy patient so we will treat as such. Meropenem 500 mg IV ordered due to patient's allergy status. We will also give 1 dose of vancomycin now as well as 1 dose of Tamiflu now. We discussed that the inpatient team in the morning would decide for further dosing of Tamiflu and vancomycin based on their concerns and findings. All of the findings concerns were discussed with patient and family who agree with plan. Admit, inpatient status. (PETTY MORLEY MD) Diagnostic Imaging Diagonstic Imaging: Xray Plain Films/CT/US/NM/MRI: chest Comments [facility]. [place], [place] NAME: ASAF TA [facility] REC#: [id number] PT STATUS: REG ER : 1945 PHYSICIAN: PETTY MORLEY MD ADMIT DATE: 10/14/19/ER Draft Date of Exam:10/14/19 CHEST 1 VIEW, AP/PA ONLY INDICATION: Fever and diarrhea. EXAMINATION: Portable upright AP view of the chest is obtained with comparison made to study of 08/08/2019. FINDINGS: There is continued cardiomegaly. Pulmonary vascularity is at the upper limits of normal. There is near-complete resolution of left pleural fluid. There is continued blunting of right costophrenic sulcus with right basilar atelectasis and/or pneumonitis. Right upper extremity PICC is in place with catheter tip projecting over the lower superior vena cava. IMPRESSION: Improving aeration of the left lung without significant residual left pleural effusion. There is mild right pleural fluid with subjacent atelectasis and/or pneumonitis. Dictated on workstation # [id number] Dict: 10/14/191901 Trans: 10/14/191904 [id number] Interpreted by: BRITTNEY JAY MD Electronically signed by: (PETTY MORLEY MD) Departure Communication (Admissions) Time/Spoke to Admitting Phy: 19:55 (PETTY MORLEY MD) Impression Primary Impression: Right lower lobe pneumonia Qualified Codes: J18.1 - Lobar pneumonia, unspecified organism Additional Impressions: Large cell lymphoma Fever Qualified Codes: R50.9 - Fever, unspecified Sepsis Qualified Codes: A41.9 - Sepsis, unspecified organism Disposition: ADMITTED INPATIENT Condition: Stable Admissions Decision to Admit Reason: Admit from ER (General) Decision to Admit/Date: Oct 14, 2019 Time/Decision to Admit Time: 19:55 (PETTY MORLEY MD) Departure-Patient Inst. Referrals: LITZY SHAFER MD (PCP) Primary Care Physician K[facility]ALET[facility] Oct 14, 2019 18:37 PETTY MORLEY MD Oct 14, 2019 19:35
[2019-10-14 18:39] LABS: BACTERIA,URINE NEGATIVE /HPF; RBC,URINE RARE /HPF
[2019-10-14] MEDS ORDERED: IBUPROFEN TABLET 200 MG TAB PO STA (18:44)
[2019-10-14] MEDS ORDERED: FAMOTIDINE 20 MG (PEPCID) TABLET PO STA (18:44)
[2019-10-14 18:50] LABS: ALANINE AMINOTRANSFERASE 16 U/L (0-55); ALBUMIN 3.8 GM/DL (3.2-4.5); ALKALINE PHOSPHATASE 247 U/L (40-136); BILIRUBIN,TOTAL 0.4 MG/DL (0.1-1.0); CALCIUM 8.9 MG/DL (8.5-10.1); CARBON DIOXIDE 21 MMOL/L (21-32); CHLORIDE 103 MMOL/L (98-107); GLUCOSE 122 MG/DL (70-105); POTASSIUM 3.8 MMOL/L (3.6-5.0); SODIUM 136 MMOL/L (135-145); TOTAL PROTEIN 6.9 GM/DL (6.4-8.2)
[2019-10-14 18:55] LABS: BAND NEUTROPHILS 31 %; BASOPHILS % (MANUAL) 0 %; EOSINOPHILS % (MANUAL) 2 %; LYMPHOCYTES % (MANUAL) 2 %; METAMYELOCYTES % 1 %; MONOCYTES % (MANUAL) 6 %; NEUTROPHILS % (MANUAL) 58 %
[2019-10-14 18:56] LABS: ANISOCYTOSIS SLIGHT; POLYCHROMASIA SLIGHT
--- NOTE | 2019-10-14 18:57 | NUR ---
Report received from RIVERA Solorio at this time.
--- NOTE | 2019-10-14 19:06 | Diagnostic Imaging Report ---
INDICATION: Fever and diarrhea. EXAMINATION: Portable upright AP view of the chest is obtained with comparison made to study of 08/08/2019. FINDINGS: There is continued cardiomegaly. Pulmonary vascularity is at the upper limits of normal. There is near-complete resolution of left pleural fluid. There is continued blunting of right costophrenic sulcus with right basilar atelectasis and/or pneumonitis. Right upper extremity PICC is in place with catheter tip projecting over the lower superior vena cava. IMPRESSION: Improving aeration of the left lung without significant residual left pleural effusion. There is mild right pleural fluid with subjacent atelectasis and/or pneumonitis. Dictated by: Dictated on workstation # [id number]
--- NOTE | 2019-10-14 19:34 | NUR ---
Assisted pt to bedside commode at this time. Pt tolerated well, no further needs at this time.
[2019-10-14] MEDS ORDERED: VANCOMYCIN INJECTION 1,000 MG in NS (IVPB) 250 ML IV ONE (20:00)
[2019-10-14] MEDS ORDERED: OSELTAMIVIR 75 MG (TAMIFLU) CAPSULE PO ONE (20:00)
[2019-10-14] MEDS ORDERED: MEROPENEM 500 MG in WATER (STERILE) FOR INJECTION 10 ML IV ONE (20:00)
[2019-10-14 20:06] LABS: BUN/CREATININE RATIO 19; CREATININE SERUM 0.77 MG/DL (0.60-1.30); GFR ESTIMATED > 60
[2019-10-14 21:30] VITALS: BP 124/43
--- NOTE | 2019-10-14 21:30 | NUR ---
ASAF TA admitted to room 412-1, with an admitting diagnosis of RLL PNA AND SEPSIS, on 10/14/19 from [facility], accompanied by STAFF AND FAMILY.ASAF TA introduced to surroundings, call light, bed controls, phone, TV, temperature control, lights, meal times, smoking policy, visitor policy, side rail policy, bathrooms and showers. Patient Rights given to patient in the handbook. ASAF TA verbalizes understanding that [facility] is not responsible for the loss or damage to any personal effects or valuables that are kept in the patients posession during their hospitalization. ASAF TA verbalizes understanding of Interdisciplinary Patient Education. Patient and/or family were informed about the Rapid Response Team and its purpose.
[2019-10-14] MEDS ORDERED: ONDANSETRON 4 MG/2 ML (SDV) Z0FRAN IV PRN (21:45)
[2019-10-14] MEDS: LACTATED RINGERS 1,000 ML IV SCH (22:23)
[2019-10-14 23:30] VITALS: BP 123/56
[2019-10-14 23:37] VITALS: BP 123/56
--- NOTE | 2019-10-14 23:51 | NUR ---
DUONEB BID AND PRN, AEROBIKKA BID Q2 PRN, IS BID Q2 PRN. RT TO REASSESS OR REEVALUATE IN 72 HOURS OR NEEDED. INITIATE 02 TO KEEP SAT 90% OR GREATER Addendum: 10/14/19 at 2353 by CINDY GAMA RT Amended: Links added.
[2019-10-15] MEDS ORDERED: RT-ALBUTEROL/IPRATROPIUM 3 ML (DUONEB) VIAL INH PRN
[2019-10-15] MEDS: MEROPENEM 500 MG/SWFI 10 ML IV PUSH IV SCH ×8 (02:33→21:01)
[2019-10-15] MEDS: ACETAMINOPHEN 500 MG TAB (TYLENOL) PO PRN ×2 (03:27→16:00)
[2019-10-15 03:30] VITALS: BP 180/74
[2019-10-15] MEDS: IBUPROFEN TABLET 200 MG TAB PO PRN ×2 (04:21→16:00)
[2019-10-15 06:08] LABS: BASOPHILS # (AUTO) 0.1 10^3/uL (0.0-0.1); BASOPHILS % (AUTO) 0 % (0-10); EOSINOPHILS # (AUTO) 0.1 10^3/uL (0.0-0.3); EOSINOPHILS % (AUTO) 1 % (0-10); HEMATOCRIT 32 % (35-52); HEMOGLOBIN 10.2 G/DL (11.5-16.0); LYMPHOCYTES # (AUTO) 0.8 X 10^3 (1.0-4.0); LYMPHOCYTES % (AUTO) 5 % (12-44); MEAN CORPUSCULAR HEMOGLOBIN 32 PG (25-34); MEAN CORPUSCULAR HGB CONC 32 G/DL (32-36); MEAN CORPUSCULAR VOLUME 101 FL (80-99); MEAN PLATELET VOLUME 8.6 FL (7.4-10.4); MONOCYTES # (AUTO) 1.1 X 10^3 (0.0-1.0); MONOCYTES % (AUTO) 7 % (0-12); NEUTROPHILS # (AUTO) 13.9 X 10^3 (1.8-7.8); NEUTROPHILS % (AUTO) 87 % (42-75); PLATELET COUNT 221 10^3/uL (130-400); RED CELL DISTRIBUTION WIDTH 16.6 % (10.0-14.5)
[2019-10-15 06:21] LABS: ALANINE AMINOTRANSFERASE 10 U/L (0-55); ALBUMIN 3.3 GM/DL (3.2-4.5); ALKALINE PHOSPHATASE 229 U/L (40-136); BILIRUBIN,TOTAL 0.4 MG/DL (0.1-1.0); BUN/CREATININE RATIO 15; CALCIUM 8.6 MG/DL (8.5-10.1); CARBON DIOXIDE 23 MMOL/L (21-32); CHLORIDE 105 MMOL/L (98-107); CREATININE SERUM 0.68 MG/DL (0.60-1.30); GFR ESTIMATED > 60; GLUCOSE 111 MG/DL (70-105); POTASSIUM 3.3 MMOL/L (3.6-5.0); SODIUM 138 MMOL/L (135-145)
--- NOTE | 2019-10-15 06:50 | NUR ---
DR. BANERJEE NOTIFIED OF CONSULT.
[2019-10-15 08:00] VITALS: BP 143/60
[2019-10-15] MEDS ORDERED: RT-ALBUTEROL/IPRATROPIUM 3 ML (DUONEB) VIAL INH SCH (08:00)
[2019-10-15] MEDS: FAMOTIDINE 20 MG (PEPCID) TABLET PO SCH (08:47)
[2019-10-15] MEDS ORDERED: FAMO20TA5 PO (09:54)
[2019-10-15] MEDS ORDERED: CARV6.252 PO (09:54)
[2019-10-15] MEDS ORDERED: CITA10TA7 PO (09:54)
[2019-10-15] MEDS ORDERED: ONDA4TAB10 PO (09:54)
[2019-10-15] MEDS ORDERED: HYDR-3812 PO (09:54)
[2019-10-15] MEDS ORDERED: BUDE0.5A NEB (09:54)
[2019-10-15] MEDS ORDERED: PEDI18TA2 PO (09:54)
[2019-10-15] MEDS ORDERED: CHOL500061 PO (09:54)
--- NOTE | 2019-10-15 09:57 | NUR ---
WENT OVER THE EXT MED HX WITH THE PATIENT AND SHE VERIFIED HOW SHE TAKES THEM. SHE ALSO VERIFIED HER OTC MEDICATION. SHE STATES NOTHING HAS CHANGED SIGNIFICANTLY SINCE HER LAST VISIT HERE.
[2019-10-15 10:30] VITALS: BP 178/78
[2019-10-15] MEDS: LACTATED RINGERS 1,000 ML IV SCH (11:13)
[2019-10-15 12:00] VITALS: BP 133/55
--- NOTE | 2019-10-15 13:19 | History & Physical-Hospitalist ---
History of Present Illness HPI/Chief Complaint Pt is a 74yoCF with a PMH of b cell lymphoma, NIDDMII, pAF, HTN, COPD who presented to the ER due to fever. She is currently on monthly chemo under the care of Dr Payne and has been doing well. Her last dose was 10/05/2019. She developed a fever and chills yesterday. She denies any cough or sputum production. She did have some weakness as well. She was found to be febrile in the ER and sepsis work up was initiated. She was found to have a leukocytosis as well and CXR revealed a RLL PNA. She was admitted for sepsis. This morning she reports she is feeling very well and much improved. She has been up ambulating. She has gained 20lb since her last visit and states she feels well and has moved home from the custodial. Source: patient Date Seen 10/15/19 Time Seen by a Provider: 13:10 Attending Physician Kay Martinez MD PCP Litzy Shafer MD Referring Physician Date of Admission Oct 14, 2019 at 20:10 Home Medications & Allergies Home Medications Reviewed patient Home Medication Reconciliation performed by pharmacy medication reconciliations vehicle operator technician and/or nursing. Patients Allergies have been reviewed. Allergies Allergies Coded Allergies Cephalexin Monohydrate (Verified Allergy, Unknown, has tolerated Ancef, 08/03/19) Penicillins (Verified Allergy, Unknown, Has tolerated Ancef, 08/03/19) iodine (Verified Allergy, Unknown, 07/08/19) linaclotide (Verified Allergy, Unknown, 07/28/19) lubiprostone (Verified Allergy, Unknown, 07/28/19) venlafaxine HCl (Verified Allergy, Unknown, 07/08/19) Past Qpkijcq-Kbvkem-Pzssvj Hx Past Med/Social Hx: Reviewed Nursing Past Med/Soc Hx Patient Social History Employed/Student: retired 2nd Hand Smoke Exposure: No Recent Foreign Travel: No Contact w/other who traveled: No Recent Hopitalizations: Yes Recent Infectious Disease Expo: No Immunizations Up To Date Tetanus Booster (TDap): Unknown Date of Pneumonia Vaccine: Oct 02, 2015 Date of Influenza Vaccine: Jun 01, 2019 Seasonal Allergies Seasonal Allergies: Yes Past Medical History Surgeries: Abdominal, Appendectomy, Bladder Surgery, Cardiac, Gallbladder, Hysterectomy Cardiac: Atrial Fibrillation, Hypertension, Valvular Heart Disease : No Menopausal Genitourinary: Bladder Infection Gastrointestinal: Gastroesophageal Reflux, Gastrointestinal Bleed, Chronic Constipation, Hiatal Hernia Musculoskeletal: Rheumatoid Arthritis Endocrine: Diabetes, Non-Insulin dep Cancer: Lymphoma What Type of Treatment Did You: Chemotherapy Psychosocial: Anxiety, Depression History of Blood Disorders: Yes (ANEMIA--UNKNOWN CAUSE) Adverse Reaction to Blood Ellis: No Family History Reviewed Nursing Family Hx No Pertinent Family Hx Review of Systems Constitutional: see HPI, chills, fever, malaise, weight gain EENTM: no symptoms reported Respiratory: No cough, No dyspnea on exertion, No phlegm, No short of breath Cardiovascular: no symptoms reported Gastrointestinal: no symptoms reported Genitourinary: no symptoms reported Musculoskeletal: no symptoms reported Skin: no symptoms reported Psychiatric/Neurological: No Symptoms Reported Physical Exam Physical Exam Vital Signs Vital Signs - First Documented 10/14/19 10/14/19 17:50 23:37 Temp 39.2 Pulse 108 Resp 18 B/P (MAP) 178/78 (111) Pulse Ox 92 O2 Delivery Room Air FiO2 21 Capillary Refill : Less Than 3 SecondsLess Than 3 Seconds Height, Weight, BMI Height: '" Weight: lbs. oz. kg; 20.04 BMI Method:Estimated General Appearance: No Apparent Distress, Chronically ill, Thin HEENT: PERRL/EOMI, Moist Mucous Membranes; No Scleral Icterus (L), No Scleral Icterus (R) Neck: Normal Inspection, Supple Respiratory: Lungs Clear, No Accessory Muscle Use, No Respiratory Distress Cardiovascular: Regular Rate, Rhythm, No Murmur Gastrointestinal: Normal Bowel Sounds, Non Tender, Soft Extremity: No Calf Tenderness, No Pedal Edema Neurologic/Psychiatric: Alert, Oriented x3, Normal Mood/Affect Skin: Normal Color, Warm/Dry Results Results/Procedures Labs Laboratory Tests 10/14/19 18:01 10/15/19 05:40 Patient resulted labs reviewed. Imaging: Reviewed Imaging Report Assessment/Plan Admission Diagnosis Sepsis Admission Status: Inpatient Order (span 2 midnights) Reason for Inpatient Admission: IV abx, await cultures, high risk for decompensation given comorbidities and chemotherapy use Assessment and Plan Sepsis RLL PNA Continue Merrem given allergies Leukocytosis improving Still febrile today Await cultures MAT protocol B Cell Lymphoma Dr Payne consulted, appreciate recs 2 weeks out from chemo No neutropenic HTN Resume home meds NIDDMII Resume home meds pAF Regular rate on exam Resume home meds Was unable to be on anticoagulation due to GI bleed and anemia DVT ppx: SCDs Diagnosis/Problems Diagnosis/Problems (1) Sepsis Status: Acute Qualifiers: Sepsis type: sepsis due to unspecified organism Sepsis acute organ dysfunction status: without acute organ dysfunction Qualified Codes: A41.9 - Sepsis, unspecified organism (2) Right lower lobe pneumonia Status: Acute Qualifiers: Pneumonia type: due to unspecified organism Qualified Codes: J18.1 - Lobar pneumonia, unspecified organism (3) Diffuse large B-cell lymphoma Status: Acute Qualifiers: Lymphoma site: unspecified region Qualified Codes: C83.30 - Diffuse large B-cell lymphoma, unspecified site (4) Fever Status: Acute Qualifiers: Fever type: unspecified Qualified Codes: R50.9 - Fever, unspecified (5) Chronic blood loss anemia Status: Chronic (6) PAF (paroxysmal atrial fibrillation) Clinical Quality Measures DVT/VTE Risk/Contraindication: Risk Factor Score Per Nursin RFS Level Per Nursing on Admit: 4+=Very High Copy Copies To 1: LITZY SHAFER MD, KATELYN M MD Oct 15, 2019 13:19
[2019-10-15] MEDS ORDERED: RX-HYDROCODONE/APAP 5/325 MG #4 TAB PK PO PRN (13:30)
[2019-10-15] MEDS ORDERED: SENNA W/DOCUSATE (SENOKOT S) TABLET PO PRN (13:30)
[2019-10-15] MEDS ORDERED: FUROSEMIDE 20 MG (LASIX) TAB PO PRN (13:30)
[2019-10-15] MEDS ORDERED: ACETAMINOPHEN 325 MG TABLET PO PRN (13:30)
[2019-10-15] MEDS ORDERED: polyethylene glycoL POWDER 17 GM (MIRALAX) PACK PO PRN (13:30)
[2019-10-15] MEDS ORDERED: NON-FORMULARY MEDICATION 1 EA EA (Ondansetron HCl 4 MG) PO PRN (13:30)
[2019-10-15] MEDS ORDERED: PROMETHAZINE HCL 12.5 MG PO PRN (13:30)
[2019-10-15] MEDS ORDERED: LOPERAMIDE 2 MG (IMODIUM) TABLET PO PRN (13:45)
[2019-10-15] MEDS ORDERED: PROMETHAZINE 25 MG (PHENERGAN) TAB PO PRN (14:00)
[2019-10-15] MEDS ORDERED: HYDROcodone/APAP 5 MG/325 MG (LORTAB) TAB PO PRN (14:00)
[2019-10-15] MEDS ORDERED: ONDANSETRON 4 MG (ZOFRAN) ORAL DISSOLVE TAB PO PRN (14:00)
--- NOTE | 2019-10-15 14:15 | CONSULTATION REPORT ---
DATE OF SERVICE: 10/15/2019 The patient is admitted to room 412. IMPRESSION: 1. Elderly female admitted to the hospital with febrile illness. 2. Diffuse large B-cell non-Hodgkin's lymphoma diagnosed in 08/2019. 3. On chemotherapy with mini R-CHOP regimen and has completed three cycles with an excellent clinical response. RECOMMENDATIONS: 1. Continue broad-spectrum antibiotics and await culture results. 2. Continue IV hydration as the patient had a few days of diarrhea and decreased oral intake prior to admission. 3. Monitor blood counts serially. 4. Okay to discharge home when stable from medical standpoint. 5. Keep [facility]up appointment at [facility] as scheduled with restaging scans. BRIEF HISTORY: The patient is a 74-year-old female with recent diagnosis of diffuse large B-cell non-Hodgkin's lymphoma with significant B symptoms. She was started on chemotherapy with mini R-CHOP regimen and has completed three cycles. She has had an excellent clinical response with resolution of these symptoms and improving performance status. Initially, she was at a [facility] facility, but has been home since the last 6 to 7 weeks. Last weekend, she attended a restoration function and started having diarrhea from the next day onwards. She was getting weaker and developed a high fever yesterday when she was brought to the emergency room and admitted to the hospital. She was started on broad-spectrum antibiotics as well as IV fluids. A medical oncology consultation was requested for concurrent care. PAST MEDICAL HISTORY: Significant for several months history of fever of unknown origin until she was diagnosed with a diffuse large B-cell lymphoma. She has had a prolonged hospital and detention stays prior to that for almost 3 to 4 months. Other significant history includes diabetes mellitus type 2 for more than 10 years, rheumatoid arthritis diagnosed in 2013 and on treatment with Xeljanz until mid 2019. History of atrial fibrillation with anticoagulation previously which was stopped because of GI bleeding and anemia. Multiple packed red blood cell transfusions prior to diagnosis of lymphoma, but none since the treatments were started. PAST SURGICAL HISTORY: Other surgeries include appendectomy, cholecystectomy, hysterectomy, bladder tie up and bone marrow evaluations x2. SOCIAL HISTORY: The patient is and lives in [place], [place]. Three daughters, all of whom live close by. She also has a stepdaughter and an adopted son. No history of tobacco, alcohol or recreational drug use. 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 No significant exposure to chemicals. FAMILY HISTORY: Significant for acute leukemia in a brother while in his 70s. Another brother with throat cancer and non-Hodgkin's lymphoma. The patient's sister was diagnosed with lung cancer. Maternal grandmother had colon cancer. No other malignancies in the family that the patient knows of. PHYSICAL EXAMINATION: GENERAL: Today showed an elderly female, thin appearing, awake and oriented, in no acute distress at the time of evaluation. VITAL SIGNS: T-max of 39.0 degrees centigrade earlier this morning, but the most recent temperature was 37.0. Pulse rate of 87, respirations 18, blood pressure 143/60 with oxygen saturation of 94% on room air. HEENT: Normocephalic with alopecia. Extraocular muscles intact, conjunctivae pink, oral mucosa slightly dry. NECK: Supple, with no JVD. No cervical, supraclavicular or axillary lymphadenopathy palpable. CHEST: Symmetrical with port. LUNGS: Fairly clear to auscultation without wheezes or rales. CARDIOVASCULAR: Regular in rate and rhythm. No murmurs or gallops heard. ABDOMEN: Soft, nontender with no hepatosplenomegaly or other masses palpable. EXTREMITIES: Showed no edema. NEUROLOGIC: Grossly intact without focal motor deficits. LABORATORY DATA: CBC done today morning showed WBC 16.0, hemoglobin 10.2, platelet count 221,000 with neutrophil count 13.9, lymphocyte count 0.8 and monocyte count 1.1. Chemistry panel showed normal electrolytes except potassium level of 3.3, BUN was 10 and creatinine 0.68 with GFR more than 60 mL per minute. Nonfasting glucose was 111. Liver function studies were normal except alkaline phosphatase level of 229. Urinalysis had shown trace protein, but was negative for bacteria or WBCs. Influenza screen was negative for A or B. Chest x-ray done last evening and compared to previous study from 08/08/2019 showed improved aeration of the left lung without significant residual effusion. Mild right pleural fluid with a subjacent atelectasis and/or pneumonitis. Thank you for allowing me to participate in this patient's care. I will follow the patient with you. Job ID: [id number] DocumentID: [id number] Dictated Date: 10/15/2019 10:50:03 Liquor Department Manager Date: 10/15/2019 14:14:54 Dictated By: MD KACIE GONZALEZ
[2019-10-15] MEDS: RT-ALBUTEROL/IPRATROPIUM 3 ML (DUONEB) VIAL INH SCH ×2 (15:21→18:51)
[2019-10-15 16:00] VITALS: BP 126/80
[2019-10-15] MEDS ORDERED: metFORMIN 500 MG (GLUCOPHAGE) TAB PO SCH (17:00)
[2019-10-15 19:59] VITALS: BP 117/57
[2019-10-15] MEDS ORDERED: NON-FORMULARY MEDICATION 1 EA EA (Mirtazapine 7.5 MG) PO SCH (21:00)
[2019-10-15] MEDS ORDERED: FAMOTIDINE 20 MG (PEPCID) TABLET PO SCH (21:00)
[2019-10-15] MEDS ORDERED: MIRTAZAPINE 15 MG (REMERON) TAB PO SCH (21:00)
[2019-10-15] MEDS: FLECAINIDE 100 MG (TAMBOCOR) TAB PO SCH (21:02)
[2019-10-15] MEDS: CARVEDILOL 6.25 MG (COREG) TAB PO SCH (21:02)
[2019-10-16 00:05] VITALS: BP 154/65
[2019-10-16] MEDS: MEROPENEM 500 MG/SWFI 10 ML IV PUSH IV SCH ×4 (02:05→08:39)
[2019-10-16 04:00] VITALS: BP 152/64
[2019-10-16] MEDS: IBUPROFEN TABLET 200 MG TAB PO PRN (04:29)
[2019-10-16 05:26] LABS: BASOPHILS # (AUTO) 0.1 10^3/uL (0.0-0.1); BASOPHILS % (AUTO) 1 % (0-10); EOSINOPHILS # (AUTO) 0.2 10^3/uL (0.0-0.3); EOSINOPHILS % (AUTO) 2 % (0-10); HEMATOCRIT 31 % (35-52); LYMPHOCYTES # (AUTO) 0.8 X 10^3 (1.0-4.0); LYMPHOCYTES % (AUTO) 7 % (12-44); MEAN CORPUSCULAR HEMOGLOBIN 33 PG (25-34); MEAN CORPUSCULAR HGB CONC 32 G/DL (32-36); MEAN CORPUSCULAR VOLUME 103 FL (80-99); MEAN PLATELET VOLUME 8.8 FL (7.4-10.4); MONOCYTES # (AUTO) 1.1 X 10^3 (0.0-1.0); MONOCYTES % (AUTO) 9 % (0-12); NEUTROPHILS # (AUTO) 9.8 X 10^3 (1.8-7.8); NEUTROPHILS % (AUTO) 81 % (42-75); PLATELET COUNT 172 10^3/uL (130-400); RED CELL DISTRIBUTION WIDTH 16.3 % (10.0-14.5)
[2019-10-16 05:45] LABS: BUN/CREATININE RATIO 19; CALCIUM 8.7 MG/DL (8.5-10.1); CARBON DIOXIDE 24 MMOL/L (21-32); CHLORIDE 109 MMOL/L (98-107); CREATININE SERUM 0.64 MG/DL (0.60-1.30); GFR ESTIMATED > 60; GLUCOSE 105 MG/DL (70-105); POTASSIUM 3.7 MMOL/L (3.6-5.0); SODIUM 142 MMOL/L (135-145)
[2019-10-16] MEDS: RT-ALBUTEROL/IPRATROPIUM 3 ML (DUONEB) VIAL INH SCH ×2 (07:00→10:55)
[2019-10-16 08:00] VITALS: BP 162/69
[2019-10-16] MEDS: CARVEDILOL 6.25 MG (COREG) TAB PO SCH (08:39)
[2019-10-16] MEDS: FAMOTIDINE 20 MG (PEPCID) TABLET PO SCH (08:41)
[2019-10-16] MEDS: FLECAINIDE 100 MG (TAMBOCOR) TAB PO SCH (08:42)
[2019-10-16] MEDS ORDERED: ASPIRIN E.C. 81 MG (ECOTRIN) TAB PO SCH (09:00)
[2019-10-16] MEDS ORDERED: ESTROGENS CONJUGATED 0.45 MG (PREMARIN) TAB PO SCH (09:00)
[2019-10-16] MEDS ORDERED: PANTOPRAZOLE 40 MG (PROTONIX) TAB PO SCH (09:00)
[2019-10-16] MEDS ORDERED: LEVO750T39 PO (11:39)
--- NOTE | 2019-10-16 11:41 | Discharge Inst-Simple/Standard ---
Discharge Inst-Standard Discharge Medications New, Converted or Re-Newed RX: Transmitted to Pharmacy Patient Instructions/Follow Up Plan of Care/Instructions/FU: Please continue to take your medications as written. Please follow up with your primary care doctor in the next week. Activity as Tolerated: Yes Discharge Diet: No Restrictions Return to The Hospital For: Fever, chills, cough, shortness of breath, chest pain, if you feel you are getting worse. ODELL JOHNSON MD Oct 16, 2019 11:41
[2019-10-16 12:44] VITALS: BP 162/69
--- NOTE | 2019-10-16 13:03 | Discharge Summary ---
Diagnosis/Chief Complaint Date of Admission Oct 14, 2019 at 20:10 Date of Discharge Discharge Date: Oct 16, 2019 Admission Diagnosis Sepsis Primary Care Discharge Diagnosis (1) Sepsis Status: Acute (2) Right lower lobe pneumonia Status: Acute (3) Diffuse large B-cell lymphoma Status: Acute (4) Fever Status: Acute (5) Chronic blood loss anemia Status: Chronic (6) PAF (paroxysmal atrial fibrillation) Discharge Summary Discharge Physical Exam Allergies: Coded Allergies: Cephalexin Monohydrate (Verified Allergy, Unknown, has tolerated Ancef, 08/03/19) Penicillins (Verified Allergy, Unknown, Has tolerated Ancef, 08/03/19) iodine (Verified Allergy, Unknown, 07/08/19) linaclotide (Verified Allergy, Unknown, 07/28/19) lubiprostone (Verified Allergy, Unknown, 07/28/19) venlafaxine HCl (Verified Allergy, Unknown, 07/08/19) Vitals & I&Os Vital Signs Date Time Temp Pulse Resp B/P (MAP) Pulse Ox O2 Delivery O2 Flow Rate FiO2 10/16/19 12:44 37.4 87 18 162/69 98 Room Air 10/15/19 10:30 21 Hospital Course Labs (last 24 hrs) Laboratory Tests 10/16/19 05:15: White Blood Count 12.0H, Red Blood Count 3.06L, Hemoglobin 10.0L, Hematocrit 31L , Mean Corpuscular Volume 103H, Mean Corpuscular Hemoglobin 33, Mean Corpuscular Hemoglobin Concent 32, Red Cell Distribution Width 16.3H, Platelet Count 172, Mean Platelet Volume 8.8, Neutrophils (%) (Auto) 81H, Lymphocytes (%) (Auto) 7L, Monocytes (%) (Auto) 9, Eosinophils (%) (Auto) 2, Basophils (%) (Auto) 1, Neutrophils # (Auto) 9.8H, Lymphocytes # (Auto) 0.8L, Monocytes # (Auto) 1.1H, Eosinophils # (Auto) 0.2, Basophils # (Auto) 0.1, Sodium Level 142, Potassium Level 3.7, Chloride Level 109H, Carbon Dioxide Level 24, Anion Gap 9, Blood Urea Nitrogen 12, Creatinine 0.64, Estimat Glomerular Filtration Rate > 60, BUN/Creatinine Ratio 19, Glucose Level 105, Calcium Level 8.7 Microbiology 10/14/19 Blood Culture - Preliminary, Resulted No growth 10/14/19 Urine Culture - Final, Complete Streptococcus salivarius 10/14/19 Influenza Types A,B Antigen ([facility]) - Final, Complete Patient resulted labs reviewed. Pending Labs Laboratory Tests 10/16/19 05:15: White Blood Count 12.0, Red Blood Count 3.06, Hemoglobin 10.0, Hematocrit 31, Mean Corpuscular Volume 103, Mean Corpuscular Hemoglobin 33, Mean Corpuscular Hemoglobin Concent 32, Red Cell Distribution Width 16.3, Platelet Count 172, Mean Platelet Volume 8.8, Neutrophils (%) (Auto) 81, Lymphocytes (%) (Auto) 7, Monocytes (%) (Auto) 9, Eosinophils (%) (Auto) 2, Basophils (%) (Auto) 1, Neutrophils # (Auto) 9.8, Lymphocytes # (Auto) 0.8, Monocytes # (Auto) 1.1, Eosinophils # (Auto) 0.2, Basophils # (Auto) 0.1, Sodium Level 142, Potassium Level 3.7, Chloride Level 109, Carbon Dioxide Level 24, Anion Gap 9, Blood Urea Nitrogen 12, Creatinine 0.64, Estimat Glomerular Filtration Rate > 60, BUN/Creatinine Ratio 19, Glucose Level 105, Calcium Level 8.7 Imaging: Reviewed Imaging Report Discharge Home Medications: Active Scripts Active Levofloxacin 750 Mg Tablet 750 Mg PO DAILY Reported Budesonide 0.5 Mg/2 Ml Ampul.neb 0.5 Mg NEB BID PRN Carvedilol 6.25 Mg Tablet 6.25 Mg PO BID Ondansetron HCl 4 Mg Tablet 4 Mg PO Q6H PRN Flintstones with Iron Tab Chew (Pedi Mv No.79/Ferrous Fumarate) 18 Mg Tab.chew 18 Mg PO DAILY Citalopram HBr (Citalopram Hydrobromide) 10 Mg Tablet 10 Mg PO BID Famotidine 20 Mg Tablet 20 Mg PO BID Hydrocodone-Acetamin 5-325 mg (Hydrocodone/Acetaminophen) 1 Each Tablet 1 Tab PO Q6H PRN Vitamin D3 (Cholecalciferol (Vitamin D3)) 5,000 Unit Tab.rapdis 5,000 Unit PO DAILY Promethazine HCl 12.5 Mg Tablet 12.5 Mg PO Q6H PRN Miralax (Polyethylene Glycol 3350) 17 Gm Powd.pack 17 Gm PO DAILY PRN Preservision Areds Tablet (Vit A/Vit C/Vit E/Zinc/Copper) 1 Each Tablet 1 Tab PO DAILY Metformin HCl 500 Mg Tablet 500 Mg PO HS Senna Plus Tablet (Sennosides/Docusate Sodium) 1 Each Tablet 1 Tab PO BID PRN Calcium 600 + Vit D 200 Tablet (Calcium Carbonate/Vitamin D3) 1 Each Tablet 1 Tab PO DAILY Premarin (Estrogens Conjugated) 0.45 Mg Tab 0.45 Mg PO DAILY Atorvastatin Calcium 20 Mg Tablet 20 Mg PO HS Mirtazapine 15 Mg Tablet 7.5 Mg PO HS TAKES 1/2 (15MG) TABLET Iprat-Albut 0.5-3(2.5) mg/3 ml (Ipratropium/Albuterol Sulfate) 3 Ml Ampul.neb 3 Ml NEB QID PRN Pantoprazole Sodium 40 Mg Tablet.dr 40 Mg PO DAILY Furosemide 20 Mg Tablet 20 Mg PO DAILY PRN Flecainide Acetate 100 Mg Tablet 100 Mg PO BID Aspir 81 (Aspirin) 81 Mg Tablet.dr 81 Mg PO DAILY Instructions to patient/family Please see electronic discharge instructions given to patient. Clinical Quality Measures DVT/VTE Risk/Contraindication: Risk Factor Score Per Nursin RFS Level Per Nursing on Admit: 4+=Very High Problem Qualifiers (1) Sepsis: Sepsis type: sepsis due to unspecified organism Sepsis acute organ dysfunction status: without acute organ dysfunction Qualified Codes: A41.9 - Sepsis, unspecified organism (2) Right lower lobe pneumonia: Pneumonia type: due to unspecified organism Qualified Codes: J18.1 - Lobar pneumonia, unspecified organism (3) Diffuse large B-cell lymphoma: Lymphoma site: unspecified region Qualified Codes: C83.30 - Diffuse large B- cell lymphoma, unspecified site (4) Fever: Fever type: unspecified Qualified Codes: R50.9 - Fever, unspecified ODELL JOHNSON MD Oct 16, 2019 13:03
== END 2019-10-16 13:24 | disposition home or self-care (01) | DRG 871 ==
LOC: EDUNIT# 17:44 → ER 17:45 → 4TH 20:10
PROVIDERS: ADMIT Internal Medicine; ATTEND Internal Medicine
DX: A41.9 Sepsis, unspecified organism (principal); J18.9 Pneumonia, unspecified organism; C83.30 Diffuse large B-cell lymphoma, unspecified site; J44.0 Chronic obstructive pulmonary disease with (acute) lower respiratory infection; D50.0 Iron deficiency anemia secondary to blood loss (chronic); I48.0 Paroxysmal atrial fibrillation; E11.9 Type 2 diabetes mellitus without complications; M06.9 Rheumatoid arthritis, unspecified; I10 Essential (primary) hypertension; K21.9 Gastro-esophageal reflux disease without esophagitis; K59.09 Other constipation; K44.9 Diaphragmatic hernia without obstruction or gangrene; F41.9 Anxiety disorder, unspecified; F32.9 Major depressive disorder, single episode, unspecified; R13.10 Dysphagia, unspecified; Z79.84 Long term (current) use of oral hypoglycemic drugs; Z88.0 Allergy status to penicillin; Z88.1 Allergy status to other antibiotic agents; Z92.21 Personal history of antineoplastic chemotherapy
CPT/HCPCS: 36415; 71045; 80048; 80053; 81000; 83605; 85007; 85025; 85027; 85610; 85730; 87040; 87077; 87088; 87804; 94640; 94664; 94760

== ENCOUNTER → 2019-10-29 | Outpatient (CLI) | payer MEDICARE, OTHER ==
[~2019-10-29] MED LIST changes: +ACHD5005 PO; +BUDE0.5A NEB; +CARV6.252 PO; +CHOL500061 PO; +CITA10TA7 PO; +FAMO20TA5 PO; +LEVO750T39 PO; +ONDA-105 PO; +PEDI18TA2 PO
== END ==
LOC: RAD 09:13
PROVIDERS: ATTEND Nurse Practitioner Adult Health
DX: C83.39 Diffuse large B-cell lymphoma, extranodal and solid organ sites (principal); Z53.9 Procedure and treatment not carried out, unspecified reason

== ENCOUNTER → 2019-11-01 | Outpatient (CLI) | payer MEDICARE, OTHER ==
--- NOTE | 2019-11-01 16:47 | Diagnostic Imaging Report ---
PROCEDURE: CT head and CT cervical spine without contrast. TECHNIQUE: Multiple contiguous axial images were obtained through the brain and cervical spine without the use of intravenous contrast. Sagittal and coronal reformations through the cervical spine were then performed. Auto Exposure Controls were utilized during the CT exam to meet ALARA standards for radiation dose reduction. INDICATION: Retroauricular pain, posterior head and neck pain, patient is being treated for malignancy. FINDINGS: Head: There is no intracranial hemorrhage, hydrocephalus, edema, mass, or mass effect. No evidence for an elevation of the intracerebral pressures. The mastoid air cells and middle ear cavities are clear. No bony dislocation of the temporomandibular joints. The calvarium appeared nonacute. CT cervical spine: Correlation limited to plain films performed on 05/10/2012. The alignment is anatomic. Multilevel anterior and interbody cervical fusion extends from C3 through C7. There are C3-C4 and C5-C6 dual fusions with partial corpectomy and vertical strut. There is loosening of the bilateral upper C3 screws with iliana-screw lucency, left more so than right. The C7 screws also show peripheral lucency, compatible with their loosening with the left-sided screw migrated and projecting abnormally 5 mm anterior/superficial to the plate itself. The endplates appeared well incorporated with the interbody and graft device. The alignment is normal. No acute-appearing bony pathology. IMPRESSION: Screw lucency at C3 and C7 with C7 screw migration. ACDF with partial corpectomies and vertical grafts otherwise unremarkable. Normal bony alignment. No cervical fracture or injury evident. The head appeared unremarkable. Dictated by: Dictated on workstation # [id number]
== END ==
LOC: RAD 15:59
PROVIDERS: ATTEND Physician Assistant
DX: M54.2 Cervicalgia (principal); R51 Headache; Z98.1 Arthrodesis status
CPT/HCPCS: 70450; 72125

== ENCOUNTER → 2019-11-02 | Outpatient (CLI) | payer MEDICARE, OTHER ==
--- NOTE | 2019-11-03 08:45 | Diagnostic Imaging Report ---
PET/CT. INDICATION: Large B-cell lymphoma, subsequent restaging. EXAMINATION: After intravenous administration of 13.12 mCi of F18-FDG into the right antecubital fossa, a series of overlapping emission and transmission PET images was obtained. In the coronal, transaxial and sagittal planes, the area imaged extended from the skull base through the upper thighs. FINDINGS: Height 5' 5", weight 122 lbs, blood glucose 98. There are no prior PET/CT exams available for comparison. The CT chest, abdomen, and pelvis exam of 07/30/2019 noted moderate splenomegaly and multiple abnormally enlarged bilateral axillary lymph nodes. There was also bibasilar pneumonia/atelectasis and bilateral pleural effusions. On this exam, the spleen has decreased in the interval since the prior exam and the spleen is not hypermetabolic. The enlarged axillary lymph nodes seen previously are also much smaller than noted on the prior exam. There is still a node in the left axilla with slight hypermetabolic activity. This has a maximum SUV of 2.4. There is virtually no hypermetabolic activity associated with the right axilla. There is an area of increased hypermetabolic activity in the left lamina of C7. The CT cervical spine exam performed on 11/01/2019 noted postsurgical changes consistent with an anterior fusion of C3 through C7 with a partial corpectomy at C3-C4 and C5-C6. There also appeared to be loosening of the screws at the C3 level and at C7. There was no evidence for an injury to the left lamina of C7 but there did appear to be sclerosis and lucency within the left lamina of C7 compared to the right lamina. Whether the abnormal uptake is due to degenerative disease alone or whether there is an occult fracture in this area is not certain. In reviewing the CT exam, there does appear to be a nondisplaced fracture involving the facet joint on the left at this level (image 29, series 602). There is no other hypermetabolic activity to suggest the presence of malignancy. Physiologic activity is again seen in the kidneys, bowel, bladder, and brain. The CT images do show that the atelectasis/infiltrate and fluid involving both lungs noted on the prior exam has diminished. However, there is still at least a moderate amount of residual atelectasis/infiltrate and fluid in the right lung base and mild left lower lobe atelectasis/infiltrate. IMPRESSION: 1. There has been a favorable change since the previous CT chest, abdomen, and pelvis exam of 07/30/2019 as the spleen has diminished in size and the bilateral axillary adenopathy noted previously has essentially resolved. There is still a single slightly hypermetabolic node in the left axilla. 2. There is no other hypermetabolic activity to suggest the presence of malignancy. 3. The increased activity associated with the left lamina of C7 may well be degenerative in nature. In reviewing the previous CT exam from 11/01/2019, there also does appear to be a nondisplaced fracture of the lamina on the left at C7-T1. 4. These results were discussed with LOS Yeager and LOS Valencia. Dictated by: Dictated on workstation # [id number]
== END ==
LOC: RAD 10:49
PROVIDERS: ATTEND Nurse Practitioner Adult Health
DX: Z01.89 Encounter for other specified special examinations (principal); C83.39 Diffuse large B-cell lymphoma, extranodal and solid organ sites

== ENCOUNTER 2019-11-05 15:21 | Outpatient (RCR) | payer MEDICARE, OTHER ==
[2019-09-07 11:12] LABS: ALANINE AMINOTRANSFERASE 11 U/L (0-55); ALBUMIN 3.4 GM/DL (3.2-4.5); ALKALINE PHOSPHATASE 141 U/L (40-136); BILIRUBIN,TOTAL 0.4 MG/DL (0.1-1.0); BUN/CREATININE RATIO 20; CARBON DIOXIDE 23 MMOL/L (21-32); CHLORIDE 104 MMOL/L (98-107); CREATININE SERUM 0.61 MG/DL (0.60-1.30); GFR ESTIMATED > 60; GLUCOSE 117 MG/DL (70-105); POTASSIUM 3.8 MMOL/L (3.6-5.0); SODIUM 139 MMOL/L (135-145); TOTAL PROTEIN 6.6 GM/DL (6.4-8.2)
[2019-09-14 10:55] LABS: BASOPHILS # (AUTO) 0.1 10^3/uL (0.0-0.1); BASOPHILS % (AUTO) 1 % (0-10); EOSINOPHILS # (AUTO) 0.3 10^3/uL (0.0-0.3); EOSINOPHILS % (AUTO) 1 % (0-10); HEMATOCRIT 29 % (35-52); HEMOGLOBIN 9.2 G/DL (11.5-16.0); LYMPHOCYTES # (AUTO) 1.5 X 10^3 (1.0-4.0); LYMPHOCYTES % (AUTO) 5 % (12-44); MEAN CORPUSCULAR HEMOGLOBIN 32 PG (25-34); MEAN CORPUSCULAR HGB CONC 32 G/DL (32-36); MEAN CORPUSCULAR VOLUME 101 FL (80-99); MEAN PLATELET VOLUME 8.4 FL (7.4-10.4); MONOCYTES # (AUTO) 1.7 X 10^3 (0.0-1.0); MONOCYTES % (AUTO) 6 % (0-12); NEUTROPHILS # (AUTO) 24.6 X 10^3 (1.8-7.8); NEUTROPHILS % (AUTO) 87 % (42-75); PLATELET COUNT 347 10^3/uL (130-400); RED CELL DISTRIBUTION WIDTH 20.4 % (10.0-14.5); WHITE BLOOD COUNT 28.3 10^3/uL (4.3-11.0)
[2019-09-14 11:31] LABS: BUN/CREATININE RATIO 18; CARBON DIOXIDE 27 MMOL/L (21-32); CHLORIDE 101 MMOL/L (98-107); CREATININE SERUM 0.66 MG/DL (0.60-1.30); GFR ESTIMATED > 60; GLUCOSE 94 MG/DL (70-105); POTASSIUM 3.6 MMOL/L (3.6-5.0); SODIUM 140 MMOL/L (135-145)
[2019-09-21 10:37] LABS: BASOPHILS # (AUTO) 0.1 10^3/uL (0.0-0.1); BASOPHILS % (AUTO) 1 % (0-10); EOSINOPHILS # (AUTO) 0.3 10^3/uL (0.0-0.3); EOSINOPHILS % (AUTO) 2 % (0-10); HEMATOCRIT 30 % (35-52); HEMOGLOBIN 9.9 G/DL (11.5-16.0); LYMPHOCYTES # (AUTO) 1.6 X 10^3 (1.0-4.0); LYMPHOCYTES % (AUTO) 12 % (12-44); MEAN CORPUSCULAR HEMOGLOBIN 33 PG (25-34); MEAN CORPUSCULAR HGB CONC 33 G/DL (32-36); MEAN CORPUSCULAR VOLUME 101 FL (80-99); MONOCYTES # (AUTO) 1.2 X 10^3 (0.0-1.0); MONOCYTES % (AUTO) 9 % (0-12); NEUTROPHILS % (AUTO) 75 % (42-75); PLATELET COUNT 257 10^3/uL (130-400); RED CELL DISTRIBUTION WIDTH 19.5 % (10.0-14.5); WHITE BLOOD COUNT 13.3 10^3/uL (4.3-11.0)
[2019-09-21 11:00] LABS: BUN/CREATININE RATIO 24; CALCIUM 9.2 MG/DL (8.5-10.1); CARBON DIOXIDE 26 MMOL/L (21-32); CHLORIDE 104 MMOL/L (98-107); CREATININE SERUM 0.66 MG/DL (0.60-1.30); GFR ESTIMATED > 60; GLUCOSE 97 MG/DL (70-105); POTASSIUM 3.9 MMOL/L (3.6-5.0); SODIUM 140 MMOL/L (135-145)
[2019-09-28 09:35] LABS: BASOPHILS # (AUTO) 0.1 10^3/uL (0.0-0.1); BASOPHILS % (AUTO) 1 % (0-10); EOSINOPHILS # (AUTO) 0.1 10^3/uL (0.0-0.3); EOSINOPHILS % (AUTO) 1 % (0-10); HEMATOCRIT 32 % (35-52); HEMOGLOBIN 10.2 G/DL (11.5-16.0); LYMPHOCYTES # (AUTO) 1.1 X 10^3 (1.0-4.0); LYMPHOCYTES % (AUTO) 12 % (12-44); MEAN CORPUSCULAR HEMOGLOBIN 33 PG (25-34); MEAN CORPUSCULAR HGB CONC 32 G/DL (32-36); MEAN CORPUSCULAR VOLUME 102 FL (80-99); MEAN PLATELET VOLUME 8.5 FL (7.4-10.4); MONOCYTES % (AUTO) 11 % (0-12); NEUTROPHILS # (AUTO) 6.6 X 10^3 (1.8-7.8); NEUTROPHILS % (AUTO) 75 % (42-75); PLATELET COUNT 330 10^3/uL (130-400); RED CELL DISTRIBUTION WIDTH 17.7 % (10.0-14.5); WHITE BLOOD COUNT 8.9 10^3/uL (4.3-11.0)
[2019-09-28 09:56] LABS: BUN/CREATININE RATIO 17; CALCIUM 9.4 MG/DL (8.5-10.1); CARBON DIOXIDE 22 MMOL/L (21-32); CHLORIDE 104 MMOL/L (98-107); CREATININE SERUM 0.65 MG/DL (0.60-1.30); GFR ESTIMATED > 60; GLUCOSE 94 MG/DL (70-105); POTASSIUM 3.9 MMOL/L (3.6-5.0); SODIUM 138 MMOL/L (135-145)
[2019-10-05 10:32] LABS: BASOPHILS # (AUTO) 0.1 10^3/uL (0.0-0.1); BASOPHILS % (AUTO) 1 % (0-10); EOSINOPHILS # (AUTO) 0.2 10^3/uL (0.0-0.3); EOSINOPHILS % (AUTO) 3 % (0-10); HEMATOCRIT 33 % (35-52); HEMOGLOBIN 10.3 G/DL (11.5-16.0); LYMPHOCYTES # (AUTO) 2.2 X 10^3 (1.0-4.0); LYMPHOCYTES % (AUTO) 27 % (12-44); MEAN CORPUSCULAR HEMOGLOBIN 32 PG (25-34); MEAN CORPUSCULAR HGB CONC 32 G/DL (32-36); MEAN CORPUSCULAR VOLUME 101 FL (80-99); MEAN PLATELET VOLUME 8.4 FL (7.4-10.4); MONOCYTES # (AUTO) 1.3 X 10^3 (0.0-1.0); MONOCYTES % (AUTO) 16 % (0-12); NEUTROPHILS # (AUTO) 4.3 X 10^3 (1.8-7.8); NEUTROPHILS % (AUTO) 53 % (42-75); PLATELET COUNT 381 10^3/uL (130-400); RED CELL DISTRIBUTION WIDTH 16.2 % (10.0-14.5); WHITE BLOOD COUNT 8.1 10^3/uL (4.3-11.0)
[2019-10-05 10:59] LABS: ALANINE AMINOTRANSFERASE 12 U/L (0-55); ALBUMIN 3.8 GM/DL (3.2-4.5); ALKALINE PHOSPHATASE 121 U/L (40-136); BILIRUBIN,TOTAL 0.2 MG/DL (0.1-1.0); BUN/CREATININE RATIO 27; CALCIUM 9.1 MG/DL (8.5-10.1); CARBON DIOXIDE 25 MMOL/L (21-32); CHLORIDE 105 MMOL/L (98-107); CREATININE SERUM 0.83 MG/DL (0.60-1.30); GFR ESTIMATED > 60; GLUCOSE 96 MG/DL (70-105); POTASSIUM 4.2 MMOL/L (3.6-5.0); SODIUM 139 MMOL/L (135-145); TOTAL PROTEIN 7.1 GM/DL (6.4-8.2)
[2019-10-12 09:02] LABS: BASOPHILS # (AUTO) 0.2 10^3/uL (0.0-0.1); BASOPHILS % (AUTO) 1 % (0-10); EOSINOPHILS # (AUTO) 0.3 10^3/uL (0.0-0.3); EOSINOPHILS % (AUTO) 1 % (0-10); HEMATOCRIT 32 % (35-52); HEMOGLOBIN 10.3 G/DL (11.5-16.0); LYMPHOCYTES # (AUTO) 1.8 X 10^3 (1.0-4.0); LYMPHOCYTES % (AUTO) 6 % (12-44); MEAN CORPUSCULAR HEMOGLOBIN 33 PG (25-34); MEAN CORPUSCULAR HGB CONC 32 G/DL (32-36); MEAN CORPUSCULAR VOLUME 103 FL (80-99); MEAN PLATELET VOLUME 8.4 FL (7.4-10.4); MONOCYTES # (AUTO) 2.5 X 10^3 (0.0-1.0); MONOCYTES % (AUTO) 8 % (0-12); NEUTROPHILS # (AUTO) 25.9 X 10^3 (1.8-7.8); NEUTROPHILS % (AUTO) 85 % (42-75); PLATELET COUNT 319 10^3/uL (130-400); RED CELL DISTRIBUTION WIDTH 15.8 % (10.0-14.5)
[2019-10-12 09:03] LABS: WHITE BLOOD COUNT 30.6 10^3/uL (4.3-11.0)
[2019-10-12 09:23] LABS: BUN/CREATININE RATIO 22; CALCIUM 8.9 MG/DL (8.5-10.1); CARBON DIOXIDE 26 MMOL/L (21-32); CHLORIDE 105 MMOL/L (98-107); CREATININE SERUM 0.73 MG/DL (0.60-1.30); GFR ESTIMATED > 60; GLUCOSE 124 MG/DL (70-105); POTASSIUM 4.1 MMOL/L (3.6-5.0); SODIUM 143 MMOL/L (135-145)
[2019-10-19 10:31] LABS: BASOPHILS # (AUTO) 0.1 10^3/uL (0.0-0.1); BASOPHILS % (AUTO) 1 % (0-10); EOSINOPHILS # (AUTO) 0.2 10^3/uL (0.0-0.3); EOSINOPHILS % (AUTO) 1 % (0-10); HEMATOCRIT 32 % (35-52); HEMOGLOBIN 10.1 G/DL (11.5-16.0); LYMPHOCYTES # (AUTO) 1.4 X 10^3 (1.0-4.0); LYMPHOCYTES % (AUTO) 9 % (12-44); MEAN CORPUSCULAR HEMOGLOBIN 32 PG (25-34); MEAN CORPUSCULAR HGB CONC 32 G/DL (32-36); MEAN CORPUSCULAR VOLUME 100 FL (80-99); MEAN PLATELET VOLUME 8.9 FL (7.4-10.4); MONOCYTES # (AUTO) 1.2 X 10^3 (0.0-1.0); MONOCYTES % (AUTO) 8 % (0-12); NEUTROPHILS # (AUTO) 12.3 X 10^3 (1.8-7.8); NEUTROPHILS % (AUTO) 81 % (42-75); PLATELET COUNT 253 10^3/uL (130-400); RED CELL DISTRIBUTION WIDTH 15.8 % (10.0-14.5); WHITE BLOOD COUNT 15.2 10^3/uL (4.3-11.0)
[2019-10-19 10:49] LABS: BUN/CREATININE RATIO 15; CALCIUM 9.3 MG/DL (8.5-10.1); CARBON DIOXIDE 24 MMOL/L (21-32); CHLORIDE 107 MMOL/L (98-107); CREATININE SERUM 0.79 MG/DL (0.60-1.30); GFR ESTIMATED > 60; GLUCOSE 83 MG/DL (70-105); POTASSIUM 4.2 MMOL/L (3.6-5.0); SODIUM 140 MMOL/L (135-145)
[2019-10-26 09:36] LABS: BASOPHILS # (AUTO) 0.1 10^3/uL (0.0-0.1); BASOPHILS % (AUTO) 1 % (0-10); EOSINOPHILS # (AUTO) 0.1 10^3/uL (0.0-0.3); EOSINOPHILS % (AUTO) 2 % (0-10); HEMATOCRIT 33 % (35-52); HEMOGLOBIN 10.2 G/DL (11.5-16.0); LYMPHOCYTES # (AUTO) 1.4 X 10^3 (1.0-4.0); LYMPHOCYTES % (AUTO) 16 % (12-44); MEAN CORPUSCULAR HEMOGLOBIN 31 PG (25-34); MEAN CORPUSCULAR HGB CONC 31 G/DL (32-36); MEAN CORPUSCULAR VOLUME 99 FL (80-99); MEAN PLATELET VOLUME 8.4 FL (7.4-10.4); MONOCYTES # (AUTO) 1.1 X 10^3 (0.0-1.0); MONOCYTES % (AUTO) 13 % (0-12); NEUTROPHILS % (AUTO) 68 % (42-75); PLATELET COUNT 408 10^3/uL (130-400); RED CELL DISTRIBUTION WIDTH 15.1 % (10.0-14.5); WHITE BLOOD COUNT 8.8 10^3/uL (4.3-11.0)
[2019-10-26 09:52] LABS: BUN/CREATININE RATIO 26; CARBON DIOXIDE 27 MMOL/L (21-32); CHLORIDE 106 MMOL/L (98-107); GFR ESTIMATED > 60; GLUCOSE 86 MG/DL (70-105); POTASSIUM 4.2 MMOL/L (3.6-5.0); SODIUM 141 MMOL/L (135-145)
[2019-11-04 10:54] LABS: BASOPHILS % (AUTO) 0 % (0-10); EOSINOPHILS % (AUTO) 0 % (0-10); HEMATOCRIT 35 % (35-52); HEMOGLOBIN 11.1 G/DL (11.5-16.0); LYMPHOCYTES # (AUTO) 0.8 X 10^3 (1.0-4.0); LYMPHOCYTES % (AUTO) 9 % (12-44); MEAN CORPUSCULAR HEMOGLOBIN 31 PG (25-34); MEAN CORPUSCULAR HGB CONC 32 G/DL (32-36); MEAN CORPUSCULAR VOLUME 97 FL (80-99); MEAN PLATELET VOLUME 8.4 FL (7.4-10.4); MONOCYTES # (AUTO) 0.7 X 10^3 (0.0-1.0); MONOCYTES % (AUTO) 7 % (0-12); NEUTROPHILS # (AUTO) 7.5 X 10^3 (1.8-7.8); NEUTROPHILS % (AUTO) 83 % (42-75); PLATELET COUNT 466 10^3/uL (130-400); RED CELL DISTRIBUTION WIDTH 14.7 % (10.0-14.5); WHITE BLOOD COUNT 9.1 10^3/uL (4.3-11.0)
[2019-11-04 11:11] LABS: ALANINE AMINOTRANSFERASE 9 U/L (0-55); ALKALINE PHOSPHATASE 128 U/L (40-136); BILIRUBIN,TOTAL 0.2 MG/DL (0.1-1.0); BUN/CREATININE RATIO 27; CALCIUM 9.6 MG/DL (8.5-10.1); CARBON DIOXIDE 27 MMOL/L (21-32); CHLORIDE 107 MMOL/L (98-107); GFR ESTIMATED > 60; GLUCOSE 97 MG/DL (70-105); POTASSIUM 4.4 MMOL/L (3.6-5.0); SODIUM 145 MMOL/L (135-145); TOTAL PROTEIN 7.7 GM/DL (6.4-8.2)
[~2019-11-05 15:21] MED LIST changes: +ACETAMINOPHEN 325 MG TAB (TYLENOL) CANCER CTR ONE; +ACETAMINOPHEN 325 MG TAB (TYLENOL) CANCER CTR PO SCH; +ALTEPLASE 2 MG (CATHFLO) CANCER CENTER IV ONE; +CYCLOPHOSPHAMIDE INJECTION 600 MG in NS (IVPB) CANCER CENTER 250 ML IV SCH; +CYCLOPHOSPHAMIDE IV SCH; +DOXORUBICIN HCL IV SCH; +FOSAPREPITANT DIMEGLUMINE 150 MG in NS (IVPB) CANCER CENTER ONLY 150 ML IV SCH; +NS IV 1000 ML (CANCER CTR) 1,000 ML ONE; +NS IV 1000 ML (CANCER CTR) IV SCH; +NS IV SCH; +PALONOSETRON HCL 0.25 MG, DEXAMETHASONE INJECTION 10 MG in NS (IVPB) CANCER CENTER 50 ML IV SCH; +PEGFILGRASTIM 6 MG/0.6ML NEULASTA SC ONE; +PEGFILGRASTIM 6 MG/0.6ML NEULASTA SC SCH; +VINCRISTINE SULFATE IV SCH; +diphenhydrAMINE 25 MG TAB (BENADRYL) CANCER CENTER PO ONE; +diphenhydrAMINE 25 MG TAB (BENADRYL) CANCER CENTER PO SCH; +riTUXimab 500 MG, riTUXimab FOR IV INJ CONC 100 MG in NS (IVPB) CANCER CENTER ONLY 150 ML IV SCH; +vinCRIStine SULFATE 1 MG in NS (IVPB) CANCER CENTER 50 ML IV SCH
== END 2019-11-10 | disposition home or self-care (01) ==
LOC: ONC 15:21
PROVIDERS: ATTEND Internal Medicine Hematology & Oncology
DX: Z51.11 Encounter for antineoplastic chemotherapy (principal); C85.14 Unspecified B-cell lymphoma, lymph nodes of axilla and upper limb
CPT/HCPCS: 36591; 36593; 80048; 80053; 83615; 85025; 96367; 96372; 96375; 96411; 96413; 96415; 96417; J9312

== ENCOUNTER 2019-12-15 10:23 | Observation (INO) | payer MEDICARE, OTHER ==
[2019-12-15] VITALS (13 sets, daily range): BP systolic 135–165; BP diastolic 57–88
[~2019-12-15] VITALS: Ht 167.7 cm; Wt 63.8 kg
[~2019-12-15 10:23] MED LIST changes: -ACETAMINOPHEN 325 MG TAB (TYLENOL) CANCER CTR ONE; -ACETAMINOPHEN 325 MG TAB (TYLENOL) CANCER CTR PO SCH; -ALTEPLASE 2 MG (CATHFLO) CANCER CENTER IV ONE; -CYCLOPHOSPHAMIDE INJECTION 600 MG in NS (IVPB) CANCER CENTER 250 ML IV SCH; -CYCLOPHOSPHAMIDE IV SCH; -DOXORUBICIN HCL IV SCH; -FOSAPREPITANT DIMEGLUMINE 150 MG in NS (IVPB) CANCER CENTER ONLY 150 ML IV SCH; -NS IV 1000 ML (CANCER CTR) 1,000 ML ONE; -NS IV 1000 ML (CANCER CTR) IV SCH; -NS IV SCH; -PALONOSETRON HCL 0.25 MG, DEXAMETHASONE INJECTION 10 MG in NS (IVPB) CANCER CENTER 50 ML IV SCH; -PEGFILGRASTIM 6 MG/0.6ML NEULASTA SC ONE; -PEGFILGRASTIM 6 MG/0.6ML NEULASTA SC SCH; -VINCRISTINE SULFATE IV SCH; -diphenhydrAMINE 25 MG TAB (BENADRYL) CANCER CENTER PO ONE; -diphenhydrAMINE 25 MG TAB (BENADRYL) CANCER CENTER PO SCH; -riTUXimab 500 MG, riTUXimab FOR IV INJ CONC 100 MG in NS (IVPB) CANCER CENTER ONLY 150 ML IV SCH; -vinCRIStine SULFATE 1 MG in NS (IVPB) CANCER CENTER 50 ML IV SCH
[2019-12-15] MEDS ORDERED: meTOprolol SUCCINATE 100 MG (TOPROL XL) TAB PO ONE (10:30)
[2019-12-15] MEDS ORDERED: dilTIAZem DRIP PRE-MIX 125 ML IV SCH (10:30)
--- OUTSIDE RECORDS SUMMARY | 2019-12-15 10:31 | XMS REPORT | Continuity of Care Document ---
Author Organization Unknown Address Unknown Phone Unavailable Allergies Active Description Code Type Severity Reaction Onset Reported/Identified Relationship to Patient Clinical Status Yes Cephalexin Monohydrate [id number] Drug Allergy Unknown N/A 07/08/2019 Yes iodine [id number] Drug Allergy Unknown N/A 07/08/2019 Yes Penicillins [id number] Drug Aller gy Unknown N/A 07/08/2019 Yes prednisone [id number] Drug Allerg y Unknown N/A 07/08/2019 Yes venlafaxine HCl [id number] D rug Allergy Unknown N/A 07/08/2019 Yes linaclotide [id number] Drug Aller gy Unknown N/A 07/28/2019 Yes lubiprostone [id number] Drug Allergy Unknown N/A 07/28/2019 Yes Cephalexin Monohydrate [id number] Drug Allergy Unknown has tolerated A 10/2018 Yes Penicillins [id number] Drug Aller gy Unknown Has tolerated A 08/03/2019 Yes Iodinated Contrast Media [id number] Drug Allergy Unknown N/A 10/29/2019 Medications There is no data. Problems Date Dx Coded Attending Type Code Diagnosis Diagnosed By 07/12/2019 GISEL FLOYD MD Ot A41 .9 SEPSIS, UNSPECIFIED ORGANISM 07/12/2019 GISEL FLOYD MD Ot B96 .4 PROTEUS (MIRABILIS) (MORGANII) CAUSING D 07/12/2019 GISEL FLOYD MD Ot D64 .9 ANEMIA, UNSPECIFIED 07/12/2019 GISEL FLOYD MD Ot E11 .9 TYPE 2 DIABETES MELLITUS WITHOUT COMPLIC 07/12/2019 GISEL FLOYD MD Ot E46 UNSPECIFIED PROTEIN-CALORIE MALNUTRITION 07/12/2019 GISEL FLOYD MD Ot E83.42 HYPOMAGNESEMIA 07/12/2019 GISEL FLOYD MD Ot E83.51 HYPOCALCEMIA 07/12/2019 GISEL FLOYD MD Ot E87 .2 ACIDOSIS 07/12/2019 GISEL FLOYD MD Ot E87 .6 HYPOKALEMIA 07/12/2019 GISEL FLOYD MD, Ot F32 .9 MAJOR DEPRESSIVE DISORDER, SINGLE EPISOD 07/12/2019 GISEL FLOYD MD, Ot F41 .9 ANXIETY DISORDER, UNSPECIFIED 07/12/2019 GISEL FLOYD MD, Ot 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, AORTIC 07/12/2019 GISEL FLOYD MD Ot I10 ESSENTIAL (PRIMARY) HYPERTENSION 07/12/2019 GISEL FLOYD MD, Ot I48 .0 PAROXYSMAL ATRIAL FIBRILLATION 07/12/2019 GISEL FLOYD MD, Ot I48.20 CHRONIC ATRIAL FIBRILLATION, UNSPECIFIED 07/12/2019 GISEL FLOYD MD, Ot J18 .9 PNEUMONIA, UNSPECIFIED ORGANISM 07/12/2019 GISEL FLOYD MD, Ot J44 .0 CHR OBSTRUCTIVE PULMON DISEASE WITH (ACU 07/12/2019 GISEL FLOYD MD, Ot K21 .9 GASTRO-ESOPHAGEAL REFLUX DISEASE WITHOUT 07/12/2019 GISEL FLOYD MD, Ot M06 .9 RHEUMATOID ARTHRITIS, UNSPECIFIED 07/12/2019 GISEL FLOYD MD, Ot N30.00 ACUTE CYSTITIS WITHOUT HEMATURIA 07/12/2019 GISEL FLOYD MD Ot R65.20 SEVERE SEPSIS WITHOUT SEPTIC SHOCK 07/12/2019 GISEL FLOYD MD, Ot Z66 DO NOT RESUSCITATE 07/12/2019 GISEL FLOYD MD, Ot Z68 .1 BODY MASS INDEX (BMI) 19.9 OR LESS, ADUL 07/12/2019 GISEL FLOYD MD, Ot Z79.01 PENITENTIARY (CURRENT) USE OF ANTICOAGULANT 07/12/2019 GISEL FLOYD MD Ot Z79.82 PENITENTIARY (CURRENT) USE OF ASPIRIN 07/12/2019 GISEL FLOYD MD, Ot Z90.49 ACQUIRED ABSENCE OF OTHER SPECIFIED PART 07/12/2019 GISEL FLOYD MD, Ot Z90.710 ACQUIRED ABSENCE OF BOTH CERVIX AND UTER 07/16/2019 FACUNDO ARREOLA Ot D64.9 ANEMIA, UNSPECIFIED 07/16/2019 FACUNDO ARREOLA Ot N39.0 URINARY TRACT INFECTION, SITE NOT SPECIF 07/16/2019 FACUNDO ARREOLA Ot D64.9 ANEMIA, UNSPECIFIED 07/16/2019 STEPHANI PA, FACUNDO L Ot J18.9 PNEUMONIA, UNSPECIFIED ORGANISM 07/16/2019 STEPHANI MADISON, FACUNDO L Ot N39.0 URINARY TRACT INFECTION, SITE NOT SPECIF 07/16/2019 STEPHANI MADISON, FACUNDO L Ot R13.10 DYSPHAGIA, UNSPECIFIED 07/16/2019 STEPHANI MADISON, FACUNDO L Ot R60.9 EDEMA, UNSPECIFIED 07/20/2019 STEPHANI MADISON, FACUNDO L Ot D64.9 ANEMIA, UNSPECIFIED 07/20/2019 STEPHANI MADISON, FACUNDO L Ot J18.9 PNEUMONIA, UNSPECIFIED ORGANISM 07/20/2019 STEPHANI MADISON, FACUNDO L Ot N39.0 URINARY TRACT INFECTION, SITE NOT SPECIF 07/20/2019 STEPHANI MADISON, FACUNDO L Ot R13.10 DYSPHAGIA, UNSPECIFIED 07/20/2019 STEPHANI MADISON, FACUNDO L Ot R60.9 EDEMA, UNSPECIFIED 07/22/2019 STEPHANI MADISON, FACUNDO L Ot D64.9 ANEMIA, UNSPECIFIED 07/22/2019 STEPHANI MADISON, FACUNDO L Ot N39.0 URINARY TRACT INFECTION, SITE NOT SPECIF 07/22/2019 KALPANA PACHECO EXTRACTOR OPERATOR Ot D64.9 ANEMIA, UNSPECIFIED 07/26/2019 KALPANA PACHECO R EXTRACTOR OPERATOR Ot D64.9 ANEMIA, UNSPECIFIED 07/27/2019 DAVINA TRONCOSO SPOUTING INSTALLER Ot R06.00 DYSPNEA, UNSPECIFIED 07/27/2019 DAVINA TRONCOSO SPOUTING INSTALLER Ot R06.02 SHORTNESS OF BREATH 07/27/2019 BALBIR ARREOLAEN L Ot D64.9 ANEMIA, UNSPECIFIED 07/27/2019 BALBIR ARREOLAEN L Ot N39.0 URINARY TRACT INFECTION, SITE NOT SPECIF 07/28/2019 DENISA ESQUIVEL MD Ot A41. 9 SEPSIS, UNSPECIFIED ORGANISM 07/28/2019 DENISA ESQUIVEL MD Ot D50. 0 IRON DEFICIENCY ANEMIA SECONDARY TO BLOO 07/28/2019 DENISA ESQUIVEL MD Ot D61.818 OTHER PANCYTOPENIA 07/28/2019 DENISA ESQUIVEL MD Ot E11. 9 TYPE 2 DIABETES MELLITUS WITHOUT COMPLIC 07/28/2019 DENISA ESQUIVEL MD Ot E83. 42 HYPOMAGNESEMIA 07/28/2019 DENISA ESQUIVEL MD Ot E87. 6 HYPOKALEMIA 07/28/2019 DENISA ESQUIVEL MD Ot F32. 9 MAJOR DEPRESSIVE DISORDER, SINGLE EPISOD 07/28/2019 DENISA ESQUIVEL MD Ot F41. 9 ANXIETY DISORDER, UNSPECIFIED 07/28/2019 DENISA ESQUIVEL MD Ot I10 ESSENTIAL (PRIMARY) HYPERTENSION 07/28/2019 DENISA ESQUIVEL MD Ot I38 ENDOCARDITIS, VALVE UNSPECIFIED 07/28/2019 DENISA ESQUIVEL MD Ot I48. 0 PAROXYSMAL ATRIAL FIBRILLATION 07/28/2019 DENISA ESQUIVEL MD Ot J18. 1 LOBAR PNEUMONIA, UNSPECIFIED ORGANISM 07/28/2019 DENISA ESQUIVEL MD Ot J30. 2 OTHER SEASONAL ALLERGIC RHINITIS 07/28/2019 DENISA ESQUIVEL MD Ot J44. 0 CHR OBSTRUCTIVE PULMON DISEASE WITH (ACU 07/28/2019 DENISA ESQUIVEL MD Ot K21. 9 GASTRO-ESOPHAGEAL REFLUX DISEASE WITHOUT 07/28/2019 DENISA ESQUIVEL MD Ot K44. 9 DIAPHRAGMATIC HERNIA WITHOUT OBSTRUCTION 07/28/2019 DENISA ESQUIVEL MD Ot K59. 09 OTHER CONSTIPATION 07/28/2019 DENISA ESQUIVEL MD Ot K92. 2 GASTROINTESTINAL HEMORRHAGE, UNSPECIFIED 07/28/2019 DENISA ESQUIVEL MD Ot M06. 9 RHEUMATOID ARTHRITIS, UNSPECIFIED 07/28/2019 DENISA ESQUIVEL MD Ot R13. 10 DYSPHAGIA, UNSPECIFIED 07/28/2019 DENISA ESQUIVEL MD Ot R41. 82 ALTERED MENTAL STATUS, UNSPECIFIED 07/28/2019 DENISA ESQUIVEL MD Ot R65. 20 SEVERE SEPSIS WITHOUT SEPTIC SHOCK 07/28/2019 DENISA ESQUIVEL MD Ot Z66 DO NOT RESUSCITATE 07/28/2019 DENISA ESQUIVEL MD Ot Z79. 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 9 SEPSIS, UNSPECIFIED ORGANISM 07/29/2019 DENISA ESQUIVEL MD Ot D50. 0 IRON DEFICIENCY ANEMIA SECONDARY TO BLOO 07/29/2019 DENISA ESQUIVEL MD Ot D61.818 OTHER PANCYTOPENIA 07/29/2019 DENISA ESQUIVEL MD Ot E11. 9 TYPE 2 DIABETES MELLITUS WITHOUT COMPLIC 07/29/2019 DENISA ESQUIVEL MD Ot E83. 42 HYPOMAGNESEMIA 07/29/2019 DENISA ESQUIVEL MD Ot E87. 6 HYPOKALEMIA 07/29/2019 DENISA ESQUIVEL MD Ot F32. 9 MAJOR DEPRESSIVE DISORDER, SINGLE EPISOD 07/29/2019 DENISA ESQUIVEL MD Ot F41. 9 ANXIETY DISORDER, UNSPECIFIED 07/29/2019 DENISA ESQUIVEL MD Ot I10 ESSENTIAL (PRIMARY) HYPERTENSION 07/29/2019 DENISA ESQUIVEL MD Ot I38 ENDOCARDITIS, VALVE UNSPECIFIED 07/29/2019 DENISA ESQUIVEL MD Ot I48. 0 PAROXYSMAL ATRIAL FIBRILLATION 07/29/2019 DENISA ESQUIVEL MD Ot J18. 1 LOBAR PNEUMONIA, UNSPECIFIED ORGANISM 07/29/2019 DENISA ESQUIVEL MD Ot J30. 2 OTHER SEASONAL ALLERGIC RHINITIS 07/29/2019 DENISA ESQUIVEL MD Ot J44. 0 CHR OBSTRUCTIVE PULMON DISEASE WITH (ACU 07/29/2019 DENISA ESQUIVEL MD Ot K21. 9 GASTRO-ESOPHAGEAL REFLUX DISEASE WITHOUT 07/29/2019 DENISA ESQUIVEL MD Ot K44. 9 DIAPHRAGMATIC HERNIA WITHOUT OBSTRUCTION 07/29/2019 DENISA ESQUIVEL MD Ot K59. 09 OTHER CONSTIPATION 07/29/2019 DENISA ESQUIVEL MD Ot K92. 2 GASTROINTESTINAL HEMORRHAGE, UNSPECIFIED 07/29/2019 DENISA ESQUIVEL MD Ot M06. 9 RHEUMATOID ARTHRITIS, UNSPECIFIED 07/29/2019 DENISA ESQUIVEL MD Ot R13. 10 DYSPHAGIA, UNSPECIFIED 07/29/2019 DENISA ESQUIVEL MD Ot R41. 82 ALTERED MENTAL STATUS, UNSPECIFIED 07/29/2019 DENISA ESQUIVEL MD Ot R65. 20 SEVERE SEPSIS WITHOUT SEPTIC SHOCK 07/29/2019 DENISA ESQUIVEL MD Ot Z66 DO NOT RESUSCITATE 07/29/2019 DENISA ESQUIVEL MD Ot Z79. 84 PENITENTIARY (CURRENT) USE OF ORAL HYPOGLYC 07/29/2019 DENISA ESQUIVEL MD Ot Z99. 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 9 SEPSIS, UNSPECIFIED ORGANISM 07/30/2019 DENISA ESQUIVEL MD Ot D50. 0 IRON DEFICIENCY ANEMIA SECONDARY TO BLOO 07/30/2019 DENISA ESQUIVEL MD Ot D61.818 OTHER PANCYTOPENIA 07/30/2019 DENISA ESQUIVEL MD Ot E11. 9 TYPE 2 DIABETES MELLITUS WITHOUT COMPLIC 07/30/2019 DENISA ESQUIVEL MD Ot E83. 42 HYPOMAGNESEMIA 07/30/2019 DENISA ESQUIVEL MD Ot E87. 6 HYPOKALEMIA 07/30/2019 DENISA ESQUIVEL MD Ot F32. 9 MAJOR DEPRESSIVE DISORDER, SINGLE EPISOD 07/30/2019 DENISA ESQUIVEL MD Ot F41. 9 ANXIETY DISORDER, UNSPECIFIED 07/30/2019 DENISA ESQUIVEL MD Ot I10 ESSENTIAL (PRIMARY) HYPERTENSION 07/30/2019 DENISA ESQUIVEL MD Ot I38 ENDOCARDITIS, VALVE UNSPECIFIED 07/30/2019 DENISA ESQUIVEL MD Ot I48. 0 PAROXYSMAL ATRIAL FIBRILLATION 07/30/2019 DENISA ESQUIVEL MD Ot J18. 1 LOBAR PNEUMONIA, UNSPECIFIED ORGANISM 07/30/2019 DENISA ESQUIVEL MD Ot J30. 2 OTHER SEASONAL ALLERGIC RHINITIS 07/30/2019 DENISA ESQUIVEL MD Ot J44. 0 CHR OBSTRUCTIVE PULMON DISEASE WITH (ACU 07/30/2019 DENISA ESQUIVEL MD Ot K21. 9 GASTRO-ESOPHAGEAL REFLUX DISEASE WITHOUT 07/30/2019 DENISA ESQUIVEL MD Ot K44. 9 DIAPHRAGMATIC HERNIA WITHOUT OBSTRUCTION 07/30/2019 DENISA ESQUIVEL MD Ot K59. 09 OTHER CONSTIPATION 07/30/2019 DENISA ESQUIVEL MD Ot K92. 2 GASTROINTESTINAL HEMORRHAGE, UNSPECIFIED 07/30/2019 DENISA ESQUIVEL MD Ot M06. 9 RHEUMATOID ARTHRITIS, UNSPECIFIED 07/30/2019 DENISA ESQUIVEL MD Ot R13. 10 DYSPHAGIA, UNSPECIFIED 07/30/2019 DENISA ESQUIVEL MD Ot R41. 82 ALTERED MENTAL STATUS, UNSPECIFIED 07/30/2019 DENISA ESQUIVEL MD Ot R65. 20 SEVERE SEPSIS WITHOUT SEPTIC SHOCK 07/30/2019 DENISA ESQUIVEL MD Ot Z66 DO NOT RESUSCITATE 07/30/2019 DENISA ESQUIVEL MD Ot Z79. 84 PENITENTIARY (CURRENT) USE OF ORAL HYPOGLYC 07/30/2019 DENISA ESQUIVEL MD Ot Z99. 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 9 SEPSIS, UNSPECIFIED ORGANISM 07/30/2019 DENISA ESQUIVEL MD Ot D50. 0 IRON DEFICIENCY ANEMIA SECONDARY TO BLOO 07/30/2019 DENISA ESQUIVEL MD Ot D61.818 OTHER PANCYTOPENIA 07/30/2019 DENISA ESQUIVEL MD Ot E11. 9 TYPE 2 DIABETES MELLITUS WITHOUT COMPLIC 07/30/2019 DENISA ESQUIVEL MD Ot E83. 42 HYPOMAGNESEMIA 07/30/2019 DENISA ESQUIVEL MD Ot E87. 6 HYPOKALEMIA 07/30/2019 DENISA ESQUIVEL MD Ot F32. 9 MAJOR DEPRESSIVE DISORDER, SINGLE EPISOD 07/30/2019 DENISA ESQUIVEL MD Ot F41. 9 ANXIETY DISORDER, UNSPECIFIED 07/30/2019 DENISA ESQUIVEL MD Ot I10 ESSENTIAL (PRIMARY) HYPERTENSION 07/30/2019 DENISA ESQUIVEL MD Ot I38 ENDOCARDITIS, VALVE UNSPECIFIED 07/30/2019 DENISA ESQUIVEL MD Ot I48. 0 PAROXYSMAL ATRIAL FIBRILLATION 07/30/2019 DENISA ESQUIVEL MD Ot J18. 1 LOBAR PNEUMONIA, UNSPECIFIED ORGANISM 07/30/2019 DENISA ESQUIVEL MD Ot J30. 2 OTHER SEASONAL ALLERGIC RHINITIS 07/30/2019 DENISA ESQUIVEL MD Ot J44. 0 CHR OBSTRUCTIVE PULMON DISEASE WITH (ACU 07/30/2019 DENISA ESQUIVEL MD Ot K21. 9 GASTRO-ESOPHAGEAL REFLUX DISEASE WITHOUT 07/30/2019 DENISA ESQUIVEL MD Ot K44. 9 DIAPHRAGMATIC HERNIA WITHOUT OBSTRUCTION 07/30/2019 DENISA ESQUIVEL MD Ot K59. 09 OTHER CONSTIPATION 07/30/2019 DENISA ESQUIVEL MD Ot K92. 2 GASTROINTESTINAL HEMORRHAGE, UNSPECIFIED 07/30/2019 DENISA ESQUIVEL MD Ot M06. 9 RHEUMATOID ARTHRITIS, UNSPECIFIED 07/30/2019 DENISA ESQUIVEL MD Ot R13. 10 DYSPHAGIA, UNSPECIFIED 07/30/2019 DENISA ESQUIVEL MD Ot R41. 82 ALTERED MENTAL STATUS, UNSPECIFIED 07/30/2019 DENISA ESQUIVEL MD Ot R65. 20 SEVERE SEPSIS WITHOUT SEPTIC SHOCK 07/30/2019 DENISA ESQUIVEL MD Ot Z66 DO NOT RESUSCITATE 07/30/2019 DENISA ESQUIVEL MD, Ot Z79. 84 PENITENTIARY (CURRENT) USE OF ORAL HYPOGLYC 07/30/2019 DENISA ESQUIVEL MD, Ot Z99. 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 9 SEPSIS, UNSPECIFIED ORGANISM 07/30/2019 DENISA ESQUIVEL MD Ot D50. 0 IRON DEFICIENCY ANEMIA SECONDARY TO BLOO 07/30/2019 DENISA ESQUIVEL MD Ot D61.818 OTHER PANCYTOPENIA 07/30/2019 DENISA ESQUIVEL MD, Ot E11. 9 TYPE 2 DIABETES MELLITUS WITHOUT COMPLIC 07/30/2019 DENISA ESQUIVEL MD Ot E83. 42 HYPOMAGNESEMIA 07/30/2019 DENISA ESQUIVEL MD Ot E87. 6 HYPOKALEMIA 07/30/2019 DENISA ESQUIVEL MD Ot F32. 9 MAJOR DEPRESSIVE DISORDER, SINGLE EPISOD 07/30/2019 DENISA ESQUIVEL MD, Ot F41. 9 ANXIETY DISORDER, UNSPECIFIED 07/30/2019 DENISA ESQUIVEL MD Ot I10 ESSENTIAL (PRIMARY) HYPERTENSION 07/30/2019 DENISA ESQUIVEL MD Ot I38 ENDOCARDITIS, VALVE UNSPECIFIED 07/30/2019 DENISA ESQUIVEL MD, Ot I48. 0 PAROXYSMAL ATRIAL FIBRILLATION 07/30/2019 DENISA ESQUIVEL MD Ot J18. 1 LOBAR PNEUMONIA, UNSPECIFIED ORGANISM 07/30/2019 DENISA ESQUIVEL MD Ot J30. 2 OTHER SEASONAL ALLERGIC RHINITIS 07/30/2019 DENISA ESQUIVEL MD Ot J44. 0 CHR OBSTRUCTIVE PULMON DISEASE WITH (ACU 07/30/2019 DENISA ESQUIVEL MD Ot K21. 9 GASTRO-ESOPHAGEAL REFLUX DISEASE WITHOUT 07/30/2019 DENISA ESQUIVEL MD Ot K44. 9 DIAPHRAGMATIC HERNIA WITHOUT OBSTRUCTION 07/30/2019 DENISA ESQUIVEL MD Ot K59. 09 OTHER CONSTIPATION 07/30/2019 DENISA ESQUIVEL MD Ot K92. 2 GASTROINTESTINAL HEMORRHAGE, UNSPECIFIED 07/30/2019 DENISA ESQUIVEL MD Ot M06. 9 RHEUMATOID ARTHRITIS, UNSPECIFIED 07/30/2019 DENISA ESQUIVEL MD Ot R13. 10 DYSPHAGIA, UNSPECIFIED 07/30/2019 DENISA ESQUIVEL MD Ot R41. 82 ALTERED MENTAL STATUS, UNSPECIFIED 07/30/2019 DENISA ESQUIVEL MD Ot R65. 20 SEVERE SEPSIS WITHOUT SEPTIC SHOCK 07/30/2019 DENISA ESQUIVEL MD Ot Z66 DO NOT RESUSCITATE 07/30/2019 DENISA ESQUIVEL MD Ot Z79. 84 PENITENTIARY (CURRENT) USE OF ORAL HYPOGLYC 07/30/2019 DENISA ESQUIVEL MD Ot Z99. 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 9 SEPSIS, UNSPECIFIED ORGANISM 07/31/2019 DENISA ESQUIVEL MD Ot D50. 0 IRON DEFICIENCY ANEMIA SECONDARY TO BLOO 07/31/2019 DENISA ESQUIVEL MD Ot D61.818 OTHER PANCYTOPENIA 07/31/2019 DENISA ESQUIVEL MD Ot E11. 9 TYPE 2 DIABETES MELLITUS WITHOUT COMPLIC 07/31/2019 DENISA ESQUIVEL MD Ot E83. 42 HYPOMAGNESEMIA 07/31/2019 DENISA ESQUIVEL MD Ot E87. 6 HYPOKALEMIA 07/31/2019 DENISA ESQUIVEL MD Ot F32. 9 MAJOR DEPRESSIVE DISORDER, SINGLE EPISOD 07/31/2019 DENISA ESQUIVEL MD Ot F41. 9 ANXIETY DISORDER, UNSPECIFIED 07/31/2019 DENISA ESQUIVEL MD Ot I10 ESSENTIAL (PRIMARY) HYPERTENSION 07/31/2019 DENISA ESQUIVEL MD Ot I38 ENDOCARDITIS, VALVE UNSPECIFIED 07/31/2019 DENISA ESQUIVEL MD Ot I48. 0 PAROXYSMAL ATRIAL FIBRILLATION 07/31/2019 DENISA ESQUIVEL MD Ot J18. 1 LOBAR PNEUMONIA, UNSPECIFIED ORGANISM 07/31/2019 DENISA ESQUIVEL MD Ot J30. 2 OTHER SEASONAL ALLERGIC RHINITIS 07/31/2019 DENISA ESQUIVEL MD Ot J44. 0 CHR OBSTRUCTIVE PULMON DISEASE WITH (ACU 07/31/2019 DENISA ESQUIVEL MD Ot K21. 9 GASTRO-ESOPHAGEAL REFLUX DISEASE WITHOUT 07/31/2019 DENISA ESQUIVEL MD Ot K44. 9 DIAPHRAGMATIC HERNIA WITHOUT OBSTRUCTION 07/31/2019 DENISA ESQUIVEL MD Ot K59. 09 OTHER CONSTIPATION 07/31/2019 DENISA ESQUIVEL MD Ot K92. 2 GASTROINTESTINAL HEMORRHAGE, UNSPECIFIED 07/31/2019 DENISA ESQUIVEL MD Ot M06. 9 RHEUMATOID ARTHRITIS, UNSPECIFIED 07/31/2019 DENISA ESQUIVEL MD Ot R13. 10 DYSPHAGIA, UNSPECIFIED 07/31/2019 DENISA ESQUIVEL MD Ot R41. 82 ALTERED MENTAL STATUS, UNSPECIFIED 07/31/2019 DENISA ESQUIVEL MD Ot R65. 20 SEVERE SEPSIS WITHOUT SEPTIC SHOCK 07/31/2019 DENISA ESQUIVEL MD Ot Z66 DO NOT RESUSCITATE 07/31/2019 DENISA ESQUIVEL MD Ot Z79. 84 PENITENTIARY (CURRENT) USE OF ORAL HYPOGLYC 07/31/2019 DENISA ESQUIVEL MD Ot Z99. 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 9 SEPSIS, UNSPECIFIED ORGANISM 07/31/2019 DENISA ESQUIVEL MD Ot D50. 0 IRON DEFICIENCY ANEMIA SECONDARY TO BLOO 07/31/2019 DENISA ESQUIVEL MD Ot D61.818 OTHER PANCYTOPENIA 07/31/2019 DENISA ESQUIVEL MD Ot E11. 9 TYPE 2 DIABETES MELLITUS WITHOUT COMPLIC 07/31/2019 DENISA ESQUIVEL MD Ot E83. 42 HYPOMAGNESEMIA 07/31/2019 DENISA ESQUIVEL MD Ot E87. 6 HYPOKALEMIA 07/31/2019 DENISA ESQUIVEL MD Ot F32. 9 MAJOR DEPRESSIVE DISORDER, SINGLE EPISOD 07/31/2019 DENISA ESQUIVEL MD Ot F41. 9 ANXIETY DISORDER, UNSPECIFIED 07/31/2019 DENISA ESQUIVEL MD Ot I10 ESSENTIAL (PRIMARY) HYPERTENSION 07/31/2019 DENISA ESQUIVEL MD Ot I38 ENDOCARDITIS, VALVE UNSPECIFIED 07/31/2019 DENISA ESQUIVEL MD Ot I48. 0 PAROXYSMAL ATRIAL FIBRILLATION 07/31/2019 DENISA ESQUIVEL MD Ot J18. 1 LOBAR PNEUMONIA, UNSPECIFIED ORGANISM 07/31/2019 DENISA ESQUIVEL MD Ot J30. 2 OTHER SEASONAL ALLERGIC RHINITIS 07/31/2019 DENISA ESQUIVEL MD Ot J44. 0 CHR OBSTRUCTIVE PULMON DISEASE WITH (ACU 07/31/2019 DENISA ESQUIVEL MD Ot K21. 9 GASTRO-ESOPHAGEAL REFLUX DISEASE WITHOUT 07/31/2019 DENISA ESQUIVEL MD Ot K44. 9 DIAPHRAGMATIC HERNIA WITHOUT OBSTRUCTION 07/31/2019 DENISA ESQUIVEL MD Ot K59. 09 OTHER CONSTIPATION 07/31/2019 DENISA ESQUIVEL MD Ot K92. 2 GASTROINTESTINAL HEMORRHAGE, UNSPECIFIED 07/31/2019 DENISA ESQUIVEL MD Ot M06. 9 RHEUMATOID ARTHRITIS, UNSPECIFIED 07/31/2019 DENISA ESQUIVEL MD Ot R13. 10 DYSPHAGIA, UNSPECIFIED 07/31/2019 DENISA ESQUIVEL MD Ot R41. 82 ALTERED MENTAL STATUS, UNSPECIFIED 07/31/2019 DENISA ESQUIVEL MD Ot R65. 20 SEVERE SEPSIS WITHOUT SEPTIC SHOCK 07/31/2019 DENISA ESQUIVEL MD Ot Z66 DO NOT RESUSCITATE 07/31/2019 DENISA ESQUIVEL MD Ot Z79. 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 9 SEPSIS, UNSPECIFIED ORGANISM 08/01/2019 DENISA ESQUIVEL MD Ot D50. 0 IRON DEFICIENCY ANEMIA SECONDARY TO BLOO 08/01/2019 DENISA ESQUIVEL MD Ot D61.818 OTHER PANCYTOPENIA 08/01/2019 DENISA ESQUIVEL MD Ot E11. 9 TYPE 2 DIABETES MELLITUS WITHOUT COMPLIC 08/01/2019 DENISA ESQUIVEL MD Ot E83. 42 HYPOMAGNESEMIA 08/01/2019 DENISA ESQUIVEL MD Ot E87. 6 HYPOKALEMIA 08/01/2019 DENISA ESQUIVEL MD Ot F32. 9 MAJOR DEPRESSIVE DISORDER, SINGLE EPISOD 08/01/2019 DENISA ESQUIVEL MD Ot F41. 9 ANXIETY DISORDER, UNSPECIFIED 08/01/2019 DENISA ESQUIVEL MD Ot I10 ESSENTIAL (PRIMARY) HYPERTENSION 08/01/2019 DENISA ESQUIVEL MD Ot I38 ENDOCARDITIS, VALVE UNSPECIFIED 08/01/2019 DENISA ESQUIVEL MD Ot I48. 0 PAROXYSMAL ATRIAL FIBRILLATION 08/01/2019 DENISA ESQUIVEL MD Ot J18. 1 LOBAR PNEUMONIA, UNSPECIFIED ORGANISM 08/01/2019 DENISA ESQUIVEL MD Ot J30. 2 OTHER SEASONAL ALLERGIC RHINITIS 08/01/2019 DENISA ESQUIVEL MD Ot J44. 0 CHR OBSTRUCTIVE PULMON DISEASE WITH (ACU 08/01/2019 DENISA ESQUIVEL MD Ot K21. 9 GASTRO-ESOPHAGEAL REFLUX DISEASE WITHOUT 08/01/2019 DENISA ESQUIVEL MD Ot K44. 9 DIAPHRAGMATIC HERNIA WITHOUT OBSTRUCTION 08/01/2019 DENISA ESQUIVEL MD Ot K59. 09 OTHER CONSTIPATION 08/01/2019 DENISA ESQUIVEL MD Ot K92. 2 GASTROINTESTINAL HEMORRHAGE, UNSPECIFIED 08/01/2019 DENISA ESQUIVEL MD Ot M06. 9 RHEUMATOID ARTHRITIS, UNSPECIFIED 08/01/2019 DENISA ESQUIVEL MD Ot R13. 10 DYSPHAGIA, UNSPECIFIED 08/01/2019 DENISA ESQUIVEL MD Ot R41. 82 ALTERED MENTAL STATUS, UNSPECIFIED 08/01/2019 DENISA ESQUIVEL MD Ot R65. 20 SEVERE SEPSIS WITHOUT SEPTIC SHOCK 08/01/2019 DENISA ESQUIVEL MD Ot Z66 DO NOT RESUSCITATE 08/01/2019 DENISA ESQUIVEL MD Ot Z79. 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 9 SEPSIS, UNSPECIFIED ORGANISM 08/02/2019 DENISA ESQUIVEL MD Ot D50. 0 IRON DEFICIENCY ANEMIA SECONDARY TO BLOO 08/02/2019 DENISA ESQUIVEL MD Ot D61.818 OTHER PANCYTOPENIA 08/02/2019 DENISA ESQUIVEL MD Ot E11. 9 TYPE 2 DIABETES MELLITUS WITHOUT COMPLIC 08/02/2019 DENISA ESQUIVEL MD Ot E83. 42 HYPOMAGNESEMIA 08/02/2019 DENISA ESQUIVEL MD Ot E87. 6 HYPOKALEMIA 08/02/2019 DENISA ESQUIVEL MD Ot F32. 9 MAJOR DEPRESSIVE DISORDER, SINGLE EPISOD 08/02/2019 DENISA ESQUIVEL MD Ot F41. 9 ANXIETY DISORDER, UNSPECIFIED 08/02/2019 DENISA ESQUIVEL MD Ot I10 ESSENTIAL (PRIMARY) HYPERTENSION 08/02/2019 DENISA ESQUIVEL MD Ot I38 ENDOCARDITIS, VALVE UNSPECIFIED 08/02/2019 DENISA ESQUIVEL MD Ot I48. 0 PAROXYSMAL ATRIAL FIBRILLATION 08/02/2019 DENISA ESQUIVEL MD Ot J18. 1 LOBAR PNEUMONIA, UNSPECIFIED ORGANISM 08/02/2019 DENISA ESQUIVEL MD Ot J30. 2 OTHER SEASONAL ALLERGIC RHINITIS 08/02/2019 DENISA ESQUIVEL MD Ot J44. 0 CHR OBSTRUCTIVE PULMON DISEASE WITH (ACU 08/02/2019 DENISA ESQUIVEL MD Ot K21. 9 GASTRO-ESOPHAGEAL REFLUX DISEASE WITHOUT 08/02/2019 DENISA ESQUIVEL MD Ot K44. 9 DIAPHRAGMATIC HERNIA WITHOUT OBSTRUCTION 08/02/2019 DENISA ESQUIVEL MD Ot K59. 09 OTHER CONSTIPATION 08/02/2019 DENISA ESQUIVEL MD Ot K92. 2 GASTROINTESTINAL HEMORRHAGE, UNSPECIFIED 08/02/2019 DENISA ESQUIVEL MD Ot M06. 9 RHEUMATOID ARTHRITIS, UNSPECIFIED 08/02/2019 DENISA ESQUIVEL MD Ot R13. 10 DYSPHAGIA, UNSPECIFIED 08/02/2019 DENISA ESQUIVEL MD Ot R41. 82 ALTERED MENTAL STATUS, UNSPECIFIED 08/02/2019 DENISA ESQUIVEL MD Ot R65. 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 81 DEPENDENCE ON SUPPLEMENTAL OXYGEN 08/02/2019 DENISA ESQUIVEL MD Ot A41. 9 SEPSIS, UNSPECIFIED ORGANISM 08/02/2019 DENISA ESQUIVEL MD Ot D50. 0 IRON DEFICIENCY ANEMIA SECONDARY TO BLOO 08/02/2019 DENISA ESQUIVEL MD Ot D61.818 OTHER PANCYTOPENIA 08/02/2019 DENISA ESQUIVEL MD Ot E11. 9 TYPE 2 DIABETES MELLITUS WITHOUT COMPLIC 08/02/2019 DENISA ESQUIVEL MD Ot E83. 42 HYPOMAGNESEMIA 08/02/2019 DENISA ESQUIVEL MD Ot E87. 6 HYPOKALEMIA 08/02/2019 DENSIA ESQUIVEL MD Ot F32. 9 MAJOR DEPRESSIVE DISORDER, SINGLE EPISOD 08/02/2019 DENISA ESQUIVEL MD Ot F41. 9 ANXIETY DISORDER, UNSPECIFIED 08/02/2019 DENISA ESQUIVEL MD Ot I10 ESSENTIAL (PRIMARY) HYPERTENSION 08/02/2019 DENISA ESQUIVEL MD Ot I38 ENDOCARDITIS, VALVE UNSPECIFIED 08/02/2019 DENISA ESQUIVEL MD Ot I48. 0 PAROXYSMAL ATRIAL FIBRILLATION 08/02/2019 DENISA ESQUIVEL MD Ot J18. 1 LOBAR PNEUMONIA, UNSPECIFIED ORGANISM 08/02/2019 DENISA ESQUIVEL MD Ot J30. 2 OTHER SEASONAL ALLERGIC RHINITIS 08/02/2019 DENISA ESQUIVEL MD Ot J44. 0 CHR OBSTRUCTIVE PULMON DISEASE WITH (ACU 08/02/2019 DENISA ESQUIVEL MD Ot K21. 9 GASTRO-ESOPHAGEAL REFLUX DISEASE WITHOUT 08/02/2019 DENISA ESQUIVEL MD Ot K44. 9 DIAPHRAGMATIC HERNIA WITHOUT OBSTRUCTION 08/02/2019 DENISA ESQUIVEL MD Ot K59. 09 OTHER CONSTIPATION 08/02/2019 DENISA ESQUIVEL MD Ot K92. 2 GASTROINTESTINAL HEMORRHAGE, UNSPECIFIED 08/02/2019 DENISA ESQUIVEL MD Ot M06. 9 RHEUMATOID ARTHRITIS, UNSPECIFIED 08/02/2019 DENISA ESQUIVEL MD Ot R13. 10 DYSPHAGIA, UNSPECIFIED 08/02/2019 DENISA ESQUIVEL MD Ot R41. 82 ALTERED MENTAL STATUS, UNSPECIFIED 08/02/2019 DENISA ESQUIVEL MD Ot R65. 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 84 PENITENTIARY (CURRENT) USE OF ORAL HYPOGLYC 08/02/2019 DENISA ESQUIVEL MD Ot Z99. 81 DEPENDENCE ON SUPPLEMENTAL OXYGEN 08/02/2019 DENISA ESQUIVEL MD Ot A41. 9 SEPSIS, UNSPECIFIED ORGANISM 08/02/2019 DENISA ESQUIVEL MD Ot D50. 0 IRON DEFICIENCY ANEMIA SECONDARY TO BLOO 08/02/2019 DENISA ESQUIVEL MD Ot D61.818 OTHER PANCYTOPENIA 08/02/2019 DENISA ESQUIVEL MD Ot E11. 9 TYPE 2 DIABETES MELLITUS WITHOUT COMPLIC 08/02/2019 DENISA ESQUIVEL MD Ot E83. 42 HYPOMAGNESEMIA 08/02/2019 DENISA ESQUIVEL MD Ot E87. 6 HYPOKALEMIA 08/02/2019 DENISA ESQUIVEL MD Ot F32. 9 MAJOR DEPRESSIVE DISORDER, SINGLE EPISOD 08/02/2019 DENISA ESQUIVEL MD Ot F41. 9 ANXIETY DISORDER, UNSPECIFIED 08/02/2019 DENISA ESQUIVEL MD Ot I10 ESSENTIAL (PRIMARY) HYPERTENSION 08/02/2019 DENISA ESQUIVEL MD Ot I38 ENDOCARDITIS, VALVE UNSPECIFIED 08/02/2019 DENISA ESQUIVEL MD Ot I48. 0 PAROXYSMAL ATRIAL FIBRILLATION 08/02/2019 DENISA ESQUIVEL MD Ot J18. 1 LOBAR PNEUMONIA, UNSPECIFIED ORGANISM 08/02/2019 DENISA ESQUIVEL MD Ot J30. 2 OTHER SEASONAL ALLERGIC RHINITIS 08/02/2019 DENISA ESQUIVEL MD Ot J44. 0 CHR OBSTRUCTIVE PULMON DISEASE WITH (ACU 08/02/2019 DENISA ESQUIVEL MD Ot K21. 9 GASTRO-ESOPHAGEAL REFLUX DISEASE WITHOUT 08/02/2019 DENISA ESQUIVEL MD Ot K44. 9 DIAPHRAGMATIC HERNIA WITHOUT OBSTRUCTION 08/02/2019 DENISA ESQUIVEL MD Ot K59. 09 OTHER CONSTIPATION 08/02/2019 DENISA ESQUIVEL MD Ot K92. 2 GASTROINTESTINAL HEMORRHAGE, UNSPECIFIED 08/02/2019 DENISA ESQUIVEL MD Ot M06. 9 RHEUMATOID ARTHRITIS, UNSPECIFIED 08/02/2019 DENISA ESQUIVEL MD Ot R13. 10 DYSPHAGIA, UNSPECIFIED 08/02/2019 DENISA ESQUIVEL MD Ot R41. 82 ALTERED MENTAL STATUS, UNSPECIFIED 08/02/2019 DENISA ESQUIVEL MD Ot R65. 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 81 DEPENDENCE ON SUPPLEMENTAL OXYGEN 08/03/2019 DENISA ESQUIVEL MD Ot A41. 9 SEPSIS, UNSPECIFIED ORGANISM 08/03/2019 DENISA ESQUIVEL MD Ot D50. 0 IRON DEFICIENCY ANEMIA SECONDARY TO BLOO 08/03/2019 DENISA ESQUIVEL MD Ot D61.818 OTHER PANCYTOPENIA 08/03/2019 DENISA ESQUIVEL MD Ot E11. 9 TYPE 2 DIABETES MELLITUS WITHOUT COMPLIC 08/03/2019 DENISA ESQUIVEL MD Ot E83. 42 HYPOMAGNESEMIA 08/03/2019 DENISA ESQUIVEL MD Ot E87. 6 HYPOKALEMIA 08/03/2019 DENISA ESQUIVEL MD Ot F32. 9 MAJOR DEPRESSIVE DISORDER, SINGLE EPISOD 08/03/2019 DENISA ESQUIVEL MD Ot F41. 9 ANXIETY DISORDER, UNSPECIFIED 08/03/2019 DENISA ESQUIVEL MD Ot I10 ESSENTIAL (PRIMARY) HYPERTENSION 08/03/2019 DENISA ESQUIVEL MD Ot I38 ENDOCARDITIS, VALVE UNSPECIFIED 08/03/2019 DENISA ESQUIVEL MD Ot I48. 0 PAROXYSMAL ATRIAL FIBRILLATION 08/03/2019 DENISA ESQUIVEL MD Ot J18. 1 LOBAR PNEUMONIA, UNSPECIFIED ORGANISM 08/03/2019 DENISA ESQUIVEL MD Ot J30. 2 OTHER SEASONAL ALLERGIC RHINITIS 08/03/2019 DENISA ESQUIVEL MD Ot J44. 0 CHR OBSTRUCTIVE PULMON DISEASE WITH (ACU 08/03/2019 DENISA ESQUIVEL MD Ot K21. 9 GASTRO-ESOPHAGEAL REFLUX DISEASE WITHOUT 08/03/2019 DENISA ESQUIVEL MD Ot K44. 9 DIAPHRAGMATIC HERNIA WITHOUT OBSTRUCTION 08/03/2019 DENISA ESQUIVEL MD Ot K59. 09 OTHER CONSTIPATION 08/03/2019 DENISA ESQUIVEL MD Ot K92. 2 GASTROINTESTINAL HEMORRHAGE, UNSPECIFIED 08/03/2019 DENISA ESQUIVEL MD Ot M06. 9 RHEUMATOID ARTHRITIS, UNSPECIFIED 08/03/2019 DENISA ESQUIVEL MD Ot R13. 10 DYSPHAGIA, UNSPECIFIED 08/03/2019 DENISA ESQUIVEL MD Ot R41. 82 ALTERED MENTAL STATUS, UNSPECIFIED 08/03/2019 DENISA ESQUIVEL MD Ot R65. 20 SEVERE SEPSIS WITHOUT SEPTIC SHOCK 08/03/2019 DENISA ESQUIVEL MD Ot Z66 DO NOT RESUSCITATE 08/03/2019 DENISA ESQUIVEL MD Ot Z79. 84 VALIDATION SCIENTIST (CURRENT) USE OF ORAL HYPOGLYC 08/03/2019 DENISA ESQUIVEL MD Ot Z99. 81 DEPENDENCE ON SUPPLEMENTAL OXYGEN 08/03/2019 DENISA ESQUIVEL MD Ot A41. 9 SEPSIS, UNSPECIFIED ORGANISM 08/03/2019 DENISA ESQUIVEL MD Ot D50. 0 IRON DEFICIENCY ANEMIA SECONDARY TO BLOO 08/03/2019 DENISA ESQUIVEL MD Ot D61.818 OTHER PANCYTOPENIA 08/03/2019 DENISA ESQUIVEL MD Ot E11. 9 TYPE 2 DIABETES MELLITUS WITHOUT COMPLIC 08/03/2019 DENISA ESQUIVEL MD Ot E83. 42 HYPOMAGNESEMIA 08/03/2019 DENISA ESQUIVEL MD Ot E87. 6 HYPOKALEMIA 08/03/2019 DENISA ESQUIVEL MD Ot F32. 9 MAJOR DEPRESSIVE DISORDER, SINGLE EPISOD 08/03/2019 DENISA ESQUIVEL MD Ot F41. 9 ANXIETY DISORDER, UNSPECIFIED 08/03/2019 DENISA ESQUIVEL MD Ot I10 ESSENTIAL (PRIMARY) HYPERTENSION 08/03/2019 DENISA ESQUIVEL MD Ot I38 ENDOCARDITIS, VALVE UNSPECIFIED 08/03/2019 DENISA ESQUIVEL MD Ot I48. 0 PAROXYSMAL ATRIAL FIBRILLATION 08/03/2019 DENISA ESQUIVEL MD Ot J18. 1 LOBAR PNEUMONIA, UNSPECIFIED ORGANISM 08/03/2019 DENISA ESQUIVEL MD Ot J30. 2 OTHER SEASONAL ALLERGIC RHINITIS 08/03/2019 DENISA ESQUIVEL MD Ot J44. 0 CHR OBSTRUCTIVE PULMON DISEASE WITH (ACU 08/03/2019 DENISA ESQUIVEL MD Ot K21. 9 GASTRO-ESOPHAGEAL REFLUX DISEASE WITHOUT 08/03/2019 DENISA ESQUIVEL MD Ot K44. 9 DIAPHRAGMATIC HERNIA WITHOUT OBSTRUCTION 08/03/2019 DENISA ESQUIVEL MD Ot K59. 09 OTHER CONSTIPATION 08/03/2019 DENIAS ESQUIVEL MD Ot K92. 2 GASTROINTESTINAL HEMORRHAGE, UNSPECIFIED 08/03/2019 DENISA ESQUIVEL MD Ot M06. 9 RHEUMATOID ARTHRITIS, UNSPECIFIED 08/03/2019 DENISA ESQUIVEL MD Ot R13. 10 DYSPHAGIA, UNSPECIFIED 08/03/2019 DENISA ESQUIVEL MD Ot R41. 82 ALTERED MENTAL STATUS, UNSPECIFIED 08/03/2019 DENISA ESQUIVEL MD Ot R65. 20 SEVERE SEPSIS WITHOUT SEPTIC SHOCK 08/03/2019 DENISA ESQUIVEL MD Ot Z66 DO NOT RESUSCITATE 08/03/2019 DENISA ESQUIVEL MD Ot Z79. 84 VALIDATION SCIENTIST (CURRENT) USE OF ORAL HYPOGLYC 08/03/2019 DENISA ESQUIVEL MD Ot Z99. 81 DEPENDENCE ON SUPPLEMENTAL OXYGEN 08/03/2019 DAVINA TRONCOSO SPOUTING INSTALLER Ot R06.00 DYSPNEA, UNSPECIFIED 08/03/2019 DAVINA TRONCOSO SPOUTING INSTALLER Ot R06.02 SHORTNESS OF BREATH 08/04/2019 DENISA ESQUIVEL MD Ot A41. 9 SEPSIS, UNSPECIFIED ORGANISM 08/04/2019 DENISA ESQUIVEL MD Ot D50. 0 IRON DEFICIENCY ANEMIA SECONDARY TO BLOO 08/04/2019 DENISA ESQUIVEL MD Ot D61.818 OTHER PANCYTOPENIA 08/04/2019 DENISA ESQUIVEL MD Ot E11. 9 TYPE 2 DIABETES MELLITUS WITHOUT COMPLIC 08/04/2019 DENISA ESQUIVEL MD Ot E83. 42 HYPOMAGNESEMIA 08/04/2019 DENISA ESQUIVEL MD Ot E87. 6 HYPOKALEMIA 08/04/2019 DENISA ESQUIVEL MD Ot F32. 9 MAJOR DEPRESSIVE DISORDER, SINGLE EPISOD 08/04/2019 DENISA ESQUIVEL MD Ot F41. 9 ANXIETY DISORDER, UNSPECIFIED 08/04/2019 DENISA ESQUIVEL MD M Ot I10 ESSENTIAL (PRIMARY) HYPERTENSION 08/04/2019 DENISA ESQUIVEL MD Ot I38 ENDOCARDITIS, VALVE UNSPECIFIED 08/04/2019 DENISA ESQUIVEL MD Ot I48. 0 PAROXYSMAL ATRIAL FIBRILLATION 08/04/2019 DENISA ESQUIVEL MD M Ot J18. 1 LOBAR PNEUMONIA, UNSPECIFIED ORGANISM 08/04/2019 DENISA ESQUIVEL MD Ot J30. 2 OTHER SEASONAL ALLERGIC RHINITIS 08/04/2019 DENISA ESQUIVEL MD M Ot J44. 0 CHR OBSTRUCTIVE PULMON DISEASE WITH (ACU 08/04/2019 DENISA ESQUIVEL MD M Ot K21. 9 GASTRO-ESOPHAGEAL REFLUX DISEASE WITHOUT 08/04/2019 DENISA ESQUIVEL MD M Ot K44. 9 DIAPHRAGMATIC HERNIA WITHOUT OBSTRUCTION 08/04/2019 DENISA ESQUIVEL MD M Ot K59. 09 OTHER CONSTIPATION 08/04/2019 DENISA ESQUIVEL MD M Ot K92. 2 GASTROINTESTINAL HEMORRHAGE, UNSPECIFIED 08/04/2019 DENISA ESQUIVEL MD M Ot M06. 9 RHEUMATOID ARTHRITIS, UNSPECIFIED 08/04/2019 DENISA ESQUIVEL MD M Ot R13. 10 DYSPHAGIA, UNSPECIFIED 08/04/2019 DENISA ESQUIVEL MD Ot R41. 82 ALTERED MENTAL STATUS, UNSPECIFIED 08/04/2019 DENISA ESQUIVEL MD Ot R65. 20 SEVERE SEPSIS WITHOUT SEPTIC SHOCK 08/04/2019 DENISA ESQUIVEL MD Ot Z66 DO NOT RESUSCITATE 08/04/2019 DENISA ESQUIVEL MD Ot Z79. 84 PENITENTIARY (CURRENT) USE OF ORAL HYPOGLYC 08/04/2019 DENISA ESQUIVEL MD Ot Z99. 81 DEPENDENCE ON SUPPLEMENTAL OXYGEN 08/04/2019 DENISA ESQUIVEL MD Ot A41. 9 SEPSIS, UNSPECIFIED ORGANISM 08/04/2019 DENISA ESQUIVEL MD Ot D50. 0 IRON DEFICIENCY ANEMIA SECONDARY TO BLOO 08/04/2019 DENISA ESQUIVEL MD Ot D61.818 OTHER PANCYTOPENIA 08/04/2019 DENISA ESQUIVEL MD Ot E11. 9 TYPE 2 DIABETES MELLITUS WITHOUT COMPLIC 08/04/2019 DENISA ESQUIVEL MD Ot E83. 42 HYPOMAGNESEMIA 08/04/2019 DENISA ESQUIVEL MD Ot E87. 6 HYPOKALEMIA 08/04/2019 DENISA ESQUIVEL MD Ot F32. 9 MAJOR DEPRESSIVE DISORDER, SINGLE EPISOD 08/04/2019 DENISA ESQUIVEL MD Ot F41. 9 ANXIETY DISORDER, UNSPECIFIED 08/04/2019 DENISA ESQUIVEL MD Ot I10 ESSENTIAL (PRIMARY) HYPERTENSION 08/04/2019 DENISA ESQUIVEL MD Ot I38 ENDOCARDITIS, VALVE UNSPECIFIED 08/04/2019 DENISA ESQUIVEL MD Ot I48. 0 PAROXYSMAL ATRIAL FIBRILLATION 08/04/2019 DENISA ESQUIVEL MD Ot J18. 1 LOBAR PNEUMONIA, UNSPECIFIED ORGANISM 08/04/2019 DENISA ESQUIVEL MD Ot J30. 2 OTHER SEASONAL ALLERGIC RHINITIS 08/04/2019 DENISA ESQUIVEL MD Ot J44. 0 CHR OBSTRUCTIVE PULMON DISEASE WITH (ACU 08/04/2019 DENISA ESQUIVEL MD Ot K21. 9 GASTRO-ESOPHAGEAL REFLUX DISEASE WITHOUT 08/04/2019 DENISA ESQUIVEL MD Ot K44. 9 DIAPHRAGMATIC HERNIA WITHOUT OBSTRUCTION 08/04/2019 DENISA ESQUIVEL MD Ot K59. 09 OTHER CONSTIPATION 08/04/2019 DENISA ESQUIVEL MD Ot K92. 2 GASTROINTESTINAL HEMORRHAGE, UNSPECIFIED 08/04/2019 DENISA ESQUIVEL MD, Ot M06. 9 RHEUMATOID ARTHRITIS, UNSPECIFIED 08/04/2019 DENISA ESQUIVEL MD Ot R13. 10 DYSPHAGIA, UNSPECIFIED 08/04/2019 DENISA ESQUIVEL MD Ot R41. 82 ALTERED MENTAL STATUS, UNSPECIFIED 08/04/2019 DENISA ESQUIVEL MD Ot R65. 20 SEVERE SEPSIS WITHOUT SEPTIC SHOCK 08/04/2019 DENISA ESQUIVEL MD Ot Z66 DO NOT RESUSCITATE 08/04/2019 DENISA ESQUIVEL MD Ot Z79. 84 PENITENTIARY (CURRENT) USE OF ORAL HYPOGLYC 08/04/2019 DENISA ESQUIVEL MD Ot Z99. 81 DEPENDENCE ON SUPPLEMENTAL OXYGEN 08/04/2019 DENISA ESQUIVEL MD Ot A41. 9 SEPSIS, UNSPECIFIED ORGANISM 08/04/2019 DENISA ESQUIVEL MD Ot D50. 0 IRON DEFICIENCY ANEMIA SECONDARY TO BLOO 08/04/2019 DENISA ESQUIVEL MD Ot D61.818 OTHER PANCYTOPENIA 08/04/2019 DENISA ESQUIVEL MD Ot E11. 9 TYPE 2 DIABETES MELLITUS WITHOUT COMPLIC 08/04/2019 DENISA ESQUIVEL MD Ot E83. 42 HYPOMAGNESEMIA 08/04/2019 DENISA ESQUIVEL MD Ot E87. 6 HYPOKALEMIA 08/04/2019 DENISA ESQUIVEL MD Ot F32. 9 MAJOR DEPRESSIVE DISORDER, SINGLE EPISOD 08/04/2019 DENISA ESQUIVEL MD Ot F41. 9 ANXIETY DISORDER, UNSPECIFIED 08/04/2019 DENISA ESQUIVEL MD Ot I10 ESSENTIAL (PRIMARY) HYPERTENSION 08/04/2019 DENISA ESQUIVEL MD Ot I38 ENDOCARDITIS, VALVE UNSPECIFIED 08/04/2019 DENISA ESQUIVEL MD Ot I48. 0 PAROXYSMAL ATRIAL FIBRILLATION 08/04/2019 DENISA ESQUIVEL MD Ot J18. 1 LOBAR PNEUMONIA, UNSPECIFIED ORGANISM 08/04/2019 DENISA ESQUIVEL MD Ot J30. 2 OTHER SEASONAL ALLERGIC RHINITIS 08/04/2019 DENISA ESQUIVEL MD Ot J44. 0 CHR OBSTRUCTIVE PULMON DISEASE WITH (ACU 08/04/2019 DENISA ESQUIVEL MD Ot K21. 9 GASTRO-ESOPHAGEAL REFLUX DISEASE WITHOUT 08/04/2019 DENISA ESQUIVEL MD Ot K44. 9 DIAPHRAGMATIC HERNIA WITHOUT OBSTRUCTION 08/04/2019 DENISA ESQUIVEL MD Ot K59. 09 OTHER CONSTIPATION 08/04/2019 DENISA ESQUIVEL MD Ot K92. 2 GASTROINTESTINAL HEMORRHAGE, UNSPECIFIED 08/04/2019 DENISA ESQUIVEL MD Ot M06. 9 RHEUMATOID ARTHRITIS, UNSPECIFIED 08/04/2019 DENISA ESQUIVEL MD Ot R13. 10 DYSPHAGIA, UNSPECIFIED 08/04/2019 DENISA ESQUIVEL MD Ot R41. 82 ALTERED MENTAL STATUS, UNSPECIFIED 08/04/2019 DENISA ESQUIVEL MD Ot R65. 20 SEVERE SEPSIS WITHOUT SEPTIC SHOCK 08/04/2019 DENISA ESQUIVEL MD Ot Z66 DO NOT RESUSCITATE 08/04/2019 DENISA ESQUIVEL MD Ot Z79. 84 PENITENTIARY (CURRENT) USE OF ORAL HYPOGLYC 08/04/2019 DENISA ESQUIVEL MD Ot Z99. 81 DEPENDENCE ON SUPPLEMENTAL OXYGEN 08/04/2019 DENISA ESQUIVEL MD Ot A41. 9 SEPSIS, UNSPECIFIED ORGANISM 08/04/2019 DENISA ESQUIVEL MD Ot D50. 0 IRON DEFICIENCY ANEMIA SECONDARY TO BLOO 08/04/2019 DENISA ESQUIVEL MD Ot D61.818 OTHER PANCYTOPENIA 08/04/2019 DENISA ESQUIVEL MD Ot E11. 9 TYPE 2 DIABETES MELLITUS WITHOUT COMPLIC 08/04/2019 DENISA ESQUIVEL MD Ot E83. 42 HYPOMAGNESEMIA 08/04/2019 DENISA ESQUIVEL MD Ot E87. 6 HYPOKALEMIA 08/04/2019 DENISA ESQUIVEL MD Ot F32. 9 MAJOR DEPRESSIVE DISORDER, SINGLE EPISOD 08/04/2019 DENISA ESQUIVEL MD Ot F41. 9 ANXIETY DISORDER, UNSPECIFIED 08/04/2019 DENISA ESQUIVEL MD M Ot I10 ESSENTIAL (PRIMARY) HYPERTENSION 08/04/2019 DENISA ESQUIVEL MD Ot I38 ENDOCARDITIS, VALVE UNSPECIFIED 08/04/2019 DENISA ESQUIVEL MD Ot I48. 0 PAROXYSMAL ATRIAL FIBRILLATION 08/04/2019 DENISA ESQUIVEL MD Ot J18. 1 LOBAR PNEUMONIA, UNSPECIFIED ORGANISM 08/04/2019 DENISA ESQUIVEL MD Ot J30. 2 OTHER SEASONAL ALLERGIC RHINITIS 08/04/2019 DENISA ESQUIVEL MD Ot J44. 0 CHR OBSTRUCTIVE PULMON DISEASE WITH (ACU 08/04/2019 DENISA ESQUIVEL MD Ot K21. 9 GASTRO-ESOPHAGEAL REFLUX DISEASE WITHOUT 08/04/2019 DENISA ESQUIVEL MD, Ot K44. 9 DIAPHRAGMATIC HERNIA WITHOUT OBSTRUCTION 08/04/2019 DENISA ESQUIVEL MD, Ot K59. 09 OTHER CONSTIPATION 08/04/2019 DENISA ESQUIVEL MD Ot K92. 2 GASTROINTESTINAL HEMORRHAGE, UNSPECIFIED 08/04/2019 DENISA ESQUIVEL MD Ot M06. 9 RHEUMATOID ARTHRITIS, UNSPECIFIED 08/04/2019 DENISA ESQUIVEL MD Ot R13. 10 DYSPHAGIA, UNSPECIFIED 08/04/2019 DENISA ESQUIVEL MD Ot R41. 82 ALTERED MENTAL STATUS, UNSPECIFIED 08/04/2019 DENISA ESQUIVEL MD Ot R65. 20 SEVERE SEPSIS WITHOUT SEPTIC SHOCK 08/04/2019 DENISA ESQUIVEL MD Ot Z66 DO NOT RESUSCITATE 08/04/2019 DENISA ESQUIVEL MD Ot Z79. 84 PENITENTIARY (CURRENT) USE OF ORAL HYPOGLYC 08/04/2019 DENISA ESQUIVEL MD Ot Z99. 81 DEPENDENCE ON SUPPLEMENTAL OXYGEN 08/05/2019 DENISA ESQUIVEL MD Ot A41. 9 SEPSIS, UNSPECIFIED ORGANISM 08/05/2019 DENISA ESQUIVEL MD Ot D50. 0 IRON DEFICIENCY ANEMIA SECONDARY TO BLOO 08/05/2019 DENISA ESQUIVEL MD Ot D61.818 OTHER PANCYTOPENIA 08/05/2019 DENISA ESQUIVEL MD Ot E11. 9 TYPE 2 DIABETES MELLITUS WITHOUT COMPLIC 08/05/2019 DENISA ESQUIVEL MD Ot E83. 42 HYPOMAGNESEMIA 08/05/2019 DENISA ESQUIVEL MD Ot E87. 6 HYPOKALEMIA 08/05/2019 DENISA ESQUIVEL MD Ot F32. 9 MAJOR DEPRESSIVE DISORDER, SINGLE EPISOD 08/05/2019 DENISA ESQUIVEL MD Ot F41. 9 ANXIETY DISORDER, UNSPECIFIED 08/05/2019 DENISA ESQUIVEL MD Ot I10 ESSENTIAL (PRIMARY) HYPERTENSION 08/05/2019 DENISA ESQUIVEL MD Ot I38 ENDOCARDITIS, VALVE UNSPECIFIED 08/05/2019 DENISA ESQUIVEL MD Ot I48. 0 PAROXYSMAL ATRIAL FIBRILLATION 08/05/2019 DENISA ESQUIVEL MD Ot J18. 1 LOBAR PNEUMONIA, UNSPECIFIED ORGANISM 08/05/2019 DENISA ESQUIVEL MD Ot J30. 2 OTHER SEASONAL ALLERGIC RHINITIS 08/05/2019 DENISA ESQUIVEL MD Ot J44. 0 CHR OBSTRUCTIVE PULMON DISEASE WITH (ACU 08/05/2019 DENISA ESQUIVEL MD Ot K21. 9 GASTRO-ESOPHAGEAL REFLUX DISEASE WITHOUT 08/05/2019 DENISA ESQUIVEL MD Ot K44. 9 DIAPHRAGMATIC HERNIA WITHOUT OBSTRUCTION 08/05/2019 DENISA ESQUIVEL MD Ot K59. 09 OTHER CONSTIPATION 08/05/2019 DENISA ESQUIVEL MD Ot K92. 2 GASTROINTESTINAL HEMORRHAGE, UNSPECIFIED 08/05/2019 DENISA ESQUIVEL MD, Ot M06. 9 RHEUMATOID ARTHRITIS, UNSPECIFIED 08/05/2019 DENISA ESQUIVEL MD Ot R13. 10 DYSPHAGIA, UNSPECIFIED 08/05/2019 DENISA ESQUIVEL MD Ot R41. 82 ALTERED MENTAL STATUS, UNSPECIFIED 08/05/2019 DENISA ESQUIVEL MD Ot R65. 20 SEVERE SEPSIS WITHOUT SEPTIC SHOCK 08/05/2019 DENISA ESQUIVEL MD Ot Z66 DO NOT RESUSCITATE 08/05/2019 DENISA ESQUIVEL MD Ot Z79. 84 PENITENTIARY (CURRENT) USE OF ORAL HYPOGLYC 08/05/2019 DENISA ESQUIVEL MD Ot Z99. 81 DEPENDENCE ON SUPPLEMENTAL OXYGEN 08/06/2019 DENISA ESQUIVEL MD Ot A41. 9 SEPSIS, UNSPECIFIED ORGANISM 08/06/2019 DENISA ESQUIVEL MD Ot D50. 0 IRON DEFICIENCY ANEMIA SECONDARY TO BLOO 08/06/2019 DENISA ESQUIVEL MD Ot D61.818 OTHER PANCYTOPENIA 08/06/2019 DENISA ESQUIVEL MD Ot E11. 9 TYPE 2 DIABETES MELLITUS WITHOUT COMPLIC 08/06/2019 DENISA ESQUIVEL MD Ot E83. 42 HYPOMAGNESEMIA 08/06/2019 DENISA ESQUIVEL MD Ot E87. 6 HYPOKALEMIA 08/06/2019 DENISA ESQUIVEL MD Ot F32. 9 MAJOR DEPRESSIVE DISORDER, SINGLE EPISOD 08/06/2019 DENISA ESQUIVEL MD Ot F41. 9 ANXIETY DISORDER, UNSPECIFIED 08/06/2019 DENISA ESQUIVEL MD Ot I10 ESSENTIAL (PRIMARY) HYPERTENSION 08/06/2019 DENISA ESQUIVEL MD Ot I38 ENDOCARDITIS, VALVE UNSPECIFIED 08/06/2019 DENISA ESQUIVEL MD Ot I48. 0 PAROXYSMAL ATRIAL FIBRILLATION 08/06/2019 DENISA ESQUIVEL MD, Ot J18. 1 LOBAR PNEUMONIA, UNSPECIFIED ORGANISM 08/06/2019 DENISA ESQUIVEL MD Ot J30. 2 OTHER SEASONAL ALLERGIC RHINITIS 08/06/2019 DENISA ESQUIVEL MD, Ot J44. 0 CHR OBSTRUCTIVE PULMON DISEASE WITH (ACU 08/06/2019 DENISA ESQUIVEL MD Ot K21. 9 GASTRO-ESOPHAGEAL REFLUX DISEASE WITHOUT 08/06/2019 DENISA ESQUIVEL MD, Ot K44. 9 DIAPHRAGMATIC HERNIA WITHOUT OBSTRUCTION 08/06/2019 DENISA ESQUIVEL MD, Ot K59. 09 OTHER CONSTIPATION 08/06/2019 DENISA ESQUIVEL MD Ot K92. 2 GASTROINTESTINAL HEMORRHAGE, UNSPECIFIED 08/06/2019 DENISA ESQUIVEL MD Ot M06. 9 RHEUMATOID ARTHRITIS, UNSPECIFIED 08/06/2019 DENISA ESQUIVEL MD Ot R13. 10 DYSPHAGIA, UNSPECIFIED 08/06/2019 DENISA ESQUIVEL MD Ot R41. 82 ALTERED MENTAL STATUS, UNSPECIFIED 08/06/2019 DENISA ESQUIVEL MD Ot R65. 20 SEVERE SEPSIS WITHOUT SEPTIC SHOCK 08/06/2019 DENISA ESQUIVEL MD Ot Z66 DO NOT RESUSCITATE 08/06/2019 DENISA ESQUIVEL MD Ot Z79. 84 VALIDATION SCIENTIST (CURRENT) USE OF ORAL HYPOGLYC 08/06/2019 DENISA ESQUIVEL MD Ot Z99. 81 DEPENDENCE ON SUPPLEMENTAL OXYGEN 08/07/2019 DENISA ESQUIVEL MD Ot A41. 9 SEPSIS, UNSPECIFIED ORGANISM 08/07/2019 DENISA ESQUIVEL MD Ot D50. 0 IRON DEFICIENCY ANEMIA SECONDARY TO BLOO 08/07/2019 DENISA ESQUIVEL MD Ot D61.818 OTHER PANCYTOPENIA 08/07/2019 DENISA ESQUIVEL MD Ot E11. 9 TYPE 2 DIABETES MELLITUS WITHOUT COMPLIC 08/07/2019 DENISA ESQUIVEL MD Ot E83. 42 HYPOMAGNESEMIA 08/07/2019 DENISA ESQUIVEL MD Ot E87. 6 HYPOKALEMIA 08/07/2019 SIERRA MD, DENISA M Ot F32. 9 MAJOR DEPRESSIVE DISORDER, SINGLE EPISOD 08/07/2019 DENISA ESQUIVEL MD Ot F41. 9 ANXIETY DISORDER, UNSPECIFIED 08/07/2019 DENISA ESQUIVEL MD Ot I10 ESSENTIAL (PRIMARY) HYPERTENSION 08/07/2019 DENISA ESQUIVEL MD Ot I38 ENDOCARDITIS, VALVE UNSPECIFIED 08/07/2019 DENISA ESQUIVEL MD Ot I48. 0 PAROXYSMAL ATRIAL FIBRILLATION 08/07/2019 DENISA ESQUIVEL MD Ot J18. 1 LOBAR PNEUMONIA, UNSPECIFIED ORGANISM 08/07/2019 DENISA ESQUIVEL MD Ot J30. 2 OTHER SEASONAL ALLERGIC RHINITIS 08/07/2019 DENISA ESQUIVEL MD Ot J44. 0 CHR OBSTRUCTIVE PULMON DISEASE WITH (ACU 08/07/2019 DENISA ESQUIVEL MD Ot K21. 9 GASTRO-ESOPHAGEAL REFLUX DISEASE WITHOUT 08/07/2019 DENISA ESQUIVEL MD Ot K44. 9 DIAPHRAGMATIC HERNIA WITHOUT OBSTRUCTION 08/07/2019 DENISA ESQUIVEL MD Ot K59. 09 OTHER CONSTIPATION 08/07/2019 DENISA ESQUIVEL MD Ot K92. 2 GASTROINTESTINAL HEMORRHAGE, UNSPECIFIED 08/07/2019 DENISA ESQUIVEL MD Ot M06. 9 RHEUMATOID ARTHRITIS, UNSPECIFIED 08/07/2019 DENISA ESQUIVEL MD Ot R13. 10 DYSPHAGIA, UNSPECIFIED 08/07/2019 DENISA ESQUIVEL MD Ot R41. 82 ALTERED MENTAL STATUS, UNSPECIFIED 08/07/2019 DENISA ESQUIVEL MD Ot R65. 20 SEVERE SEPSIS WITHOUT SEPTIC SHOCK 08/07/2019 DENISA ESQUIVEL MD Ot Z66 DO NOT RESUSCITATE 08/07/2019 DENISA ESQUIVEL MD Ot Z79. 84 PENITENTIARY (CURRENT) USE OF ORAL HYPOGLYC 08/07/2019 DENISA ESQUIVEL MD Ot Z99. 81 DEPENDENCE ON SUPPLEMENTAL OXYGEN 08/08/2019 DENISA ESQUIVEL MD Ot A41. 9 SEPSIS, UNSPECIFIED ORGANISM 08/08/2019 DENISA ESQUIVEL MD Ot D50. 0 IRON DEFICIENCY ANEMIA SECONDARY TO BLOO 08/08/2019 DENISA ESQUIVEL MD Ot D61.818 OTHER PANCYTOPENIA 08/08/2019 DENISA ESQUIVEL MD Ot E11. 9 TYPE 2 DIABETES MELLITUS WITHOUT COMPLIC 08/08/2019 DENISA ESQUIVEL MD Ot E83. 42 HYPOMAGNESEMIA 08/08/2019 DENISA ESQUIVEL MD Ot E87. 6 HYPOKALEMIA 08/08/2019 DENISA ESQUIVEL MD Ot F32. 9 MAJOR DEPRESSIVE DISORDER, SINGLE EPISOD 08/08/2019 DENISA ESQUIVEL MD Ot F41. 9 ANXIETY DISORDER, UNSPECIFIED 08/08/2019 DENISA ESQUIVEL MD Ot I10 ESSENTIAL (PRIMARY) HYPERTENSION 08/08/2019 DENISA ESQUIVEL MD Ot I38 ENDOCARDITIS, VALVE UNSPECIFIED 08/08/2019 DENISA ESQUIVEL MD Ot I48. 0 PAROXYSMAL ATRIAL FIBRILLATION 08/08/2019 DENISA ESQUIVEL MD Ot J18. 1 LOBAR PNEUMONIA, UNSPECIFIED ORGANISM 08/08/2019 DENISA ESQUIVEL MD Ot J30. 2 OTHER SEASONAL ALLERGIC RHINITIS 08/08/2019 DENISA ESQUIVEL MD Ot J44. 0 CHR OBSTRUCTIVE PULMON DISEASE WITH (ACU 08/08/2019 DENISA ESQUIVEL MD Ot K21. 9 GASTRO-ESOPHAGEAL REFLUX DISEASE WITHOUT 08/08/2019 DENISA ESQUIVEL MD Ot K44. 9 DIAPHRAGMATIC HERNIA WITHOUT OBSTRUCTION 08/08/2019 DENISA ESQUIVEL MD Ot K59. 09 OTHER CONSTIPATION 08/08/2019 DENISA ESQUIVEL MD Ot K92. 2 GASTROINTESTINAL HEMORRHAGE, UNSPECIFIED 08/08/2019 DENISA ESQUIVEL MD Ot M06. 9 RHEUMATOID ARTHRITIS, UNSPECIFIED 08/08/2019 DENISA ESQUIVEL MD Ot R13. 10 DYSPHAGIA, UNSPECIFIED 08/08/2019 DENISA ESQUIVEL MD Ot R41. 82 ALTERED MENTAL STATUS, UNSPECIFIED 08/08/2019 DENISA ESQUIVEL MD Ot R65. 20 SEVERE SEPSIS WITHOUT SEPTIC SHOCK 08/08/2019 DENISA ESQUIVEL MD Ot Z66 DO NOT RESUSCITATE 08/08/2019 DENISA ESQUIVEL MD Ot Z79. 84 VALIDATION SCIENTIST (CURRENT) USE OF ORAL HYPOGLYC 08/08/2019 DENISA ESQUIVEL MD Ot Z99. 81 DEPENDENCE ON SUPPLEMENTAL OXYGEN 08/08/2019 DENISA ESQUIVEL MD Ot A41. 9 SEPSIS, UNSPECIFIED ORGANISM 08/08/2019 DENISA ESQUIVEL MD Ot D50. 0 IRON DEFICIENCY ANEMIA SECONDARY TO BLOO 08/08/2019 DENISA ESQUIVEL MD Ot D61.818 OTHER PANCYTOPENIA 08/08/2019 DENISA ESQUIVEL MD Ot E11. 9 TYPE 2 DIABETES MELLITUS WITHOUT COMPLIC 08/08/2019 DENISA ESQUIVEL MD Ot E83. 42 HYPOMAGNESEMIA 08/08/2019 DENISA ESQUIVEL MD Ot E87. 6 HYPOKALEMIA 08/08/2019 DENISA ESQUIVEL MD Ot F32. 9 MAJOR DEPRESSIVE DISORDER, SINGLE EPISOD 08/08/2019 DENISA ESQUIVEL MD Ot F41. 9 ANXIETY DISORDER, UNSPECIFIED 08/08/2019 DENISA ESQUIVEL MD Ot I10 ESSENTIAL (PRIMARY) HYPERTENSION 08/08/2019 DENISA ESQUIVEL MD Ot I38 ENDOCARDITIS, VALVE UNSPECIFIED 08/08/2019 DENISA ESQUIVEL MD Ot I48. 0 PAROXYSMAL ATRIAL FIBRILLATION 08/08/2019 DENISA ESQUIVEL MD Ot J18. 1 LOBAR PNEUMONIA, UNSPECIFIED ORGANISM 08/08/2019 DENISA ESQUIVEL MD Ot J30. 2 OTHER SEASONAL ALLERGIC RHINITIS 08/08/2019 DENISA ESQUIVEL MD Ot J44. 0 CHR OBSTRUCTIVE PULMON DISEASE WITH (ACU 08/08/2019 DENISA ESQUIVEL MD Ot K21. 9 GASTRO-ESOPHAGEAL REFLUX DISEASE WITHOUT 08/08/2019 DENISA ESQUIVEL MD Ot K44. 9 DIAPHRAGMATIC HERNIA WITHOUT OBSTRUCTION 08/08/2019 DENISA ESQUIVEL MD Ot K59. 09 OTHER CONSTIPATION 08/08/2019 DENISA ESQUIVEL MD Ot K92. 2 GASTROINTESTINAL HEMORRHAGE, UNSPECIFIED 08/08/2019 DENISA ESQUIVEL MD Ot M06. 9 RHEUMATOID ARTHRITIS, UNSPECIFIED 08/08/2019 DENISA ESQUIVEL MD Ot R13. 10 DYSPHAGIA, UNSPECIFIED 08/08/2019 DENISA ESQUIVEL MD Ot R41. 82 ALTERED MENTAL STATUS, UNSPECIFIED 08/08/2019 DENISA ESQUIVEL MD Ot R65. 20 SEVERE SEPSIS WITHOUT SEPTIC SHOCK 08/08/2019 DENISA ESQUIVEL MD Ot Z66 DO NOT RESUSCITATE 08/08/2019 DENISA ESQUIVEL MD Ot Z79. 84 PENITENTIARY (CURRENT) USE OF ORAL HYPOGLYC 08/08/2019 DENISA ESQUIVEL MD Ot Z99. 81 DEPENDENCE ON SUPPLEMENTAL OXYGEN 08/08/2019 DENISA ESQUIVEL MD Ot A41. 9 SEPSIS, UNSPECIFIED ORGANISM 08/08/2019 DENISA ESQUIVEL MD Ot D50. 0 IRON DEFICIENCY ANEMIA SECONDARY TO BLOO 08/08/2019 DENISA ESQUIVEL MD Ot D61.818 OTHER PANCYTOPENIA 08/08/2019 DENISA ESQUIVEL MD Ot E11. 9 TYPE 2 DIABETES MELLITUS WITHOUT COMPLIC 08/08/2019 DENISA ESQUIVEL MD Ot E83. 42 HYPOMAGNESEMIA 08/08/2019 DENISA ESQUIVEL MD Ot E87. 6 HYPOKALEMIA 08/08/2019 DENISA ESQUIVEL MD Ot F32. 9 MAJOR DEPRESSIVE DISORDER, SINGLE EPISOD 08/08/2019 DENISA ESQUIVEL MD Ot F41. 9 ANXIETY DISORDER, UNSPECIFIED 08/08/2019 DENISA ESQUIVEL MD Ot I10 ESSENTIAL (PRIMARY) HYPERTENSION 08/08/2019 DENISA ESQUIVEL MD Ot I38 ENDOCARDITIS, VALVE UNSPECIFIED 08/08/2019 DENISA ESQUIVEL MD Ot I48. 0 PAROXYSMAL ATRIAL FIBRILLATION 08/08/2019 DENISA ESQUIVEL MD Ot J18. 1 LOBAR PNEUMONIA, UNSPECIFIED ORGANISM 08/08/2019 DENISA ESQUIVEL MD Ot J30. 2 OTHER SEASONAL ALLERGIC RHINITIS 08/08/2019 DENISA ESQUIVEL MD Ot J44. 0 CHR OBSTRUCTIVE PULMON DISEASE WITH (ACU 08/08/2019 DENISA ESQUIVEL MD M Ot K21. 9 GASTRO-ESOPHAGEAL REFLUX DISEASE WITHOUT 08/08/2019 DENISA ESQUIVEL MD M Ot K44. 9 DIAPHRAGMATIC HERNIA WITHOUT OBSTRUCTION 08/08/2019 DENISA ESQUIVEL MD M Ot K59. 09 OTHER CONSTIPATION 08/08/2019 DENISA ESQUIVEL MD M Ot K92. 2 GASTROINTESTINAL HEMORRHAGE, UNSPECIFIED 08/08/2019 DENISA ESQUIVEL MD Ot M06. 9 RHEUMATOID ARTHRITIS, UNSPECIFIED 08/08/2019 DENISA ESQUIVEL MD Ot R13. 10 DYSPHAGIA, UNSPECIFIED 08/08/2019 DENISA ESQUIVEL MD M Ot R41. 82 ALTERED MENTAL STATUS, UNSPECIFIED 08/08/2019 DENISA ESQUIVEL MD M Ot R65. 20 SEVERE SEPSIS WITHOUT SEPTIC SHOCK 08/08/2019 DENISA ESQUIVEL MD Ot Z66 DO NOT RESUSCITATE 08/08/2019 DENISA ESQUIVEL MD Ot Z79. 84 PENITENTIARY (CURRENT) USE OF ORAL HYPOGLYC 08/08/2019 DENISA ESQUIVEL MD Ot Z99. 81 DEPENDENCE ON SUPPLEMENTAL OXYGEN 08/09/2019 DENISA ESQUIVEL MD, Ot A41. 9 SEPSIS, UNSPECIFIED ORGANISM 08/09/2019 DENISA ESQUIVEL MD Ot D50. 0 IRON DEFICIENCY ANEMIA SECONDARY TO BLOO 08/09/2019 DENISA ESQUIVEL MD Ot D61.818 OTHER PANCYTOPENIA 08/09/2019 DENISA ESQUIVEL MD Ot E11. 9 TYPE 2 DIABETES MELLITUS WITHOUT COMPLIC 08/09/2019 DENISA ESQUIVEL MD Ot E83. 42 HYPOMAGNESEMIA 08/09/2019 DENISA ESQUIVEL MD Ot E87. 6 HYPOKALEMIA 08/09/2019 DENISA ESQUIVEL MD Ot F32. 9 MAJOR DEPRESSIVE DISORDER, SINGLE EPISOD 08/09/2019 DENISA ESQUIVEL MD Ot F41. 9 ANXIETY DISORDER, UNSPECIFIED 08/09/2019 DENISA ESQUIVEL MD Ot I10 ESSENTIAL (PRIMARY) HYPERTENSION 08/09/2019 DENISA ESQUIVEL MD Ot I38 ENDOCARDITIS, VALVE UNSPECIFIED 08/09/2019 DENISA ESQUIVEL MD Ot I48. 0 PAROXYSMAL ATRIAL FIBRILLATION 08/09/2019 DENISA ESQUIVEL MD Ot J18. 1 LOBAR PNEUMONIA, UNSPECIFIED ORGANISM 08/09/2019 DENISA ESQUIVEL MD Ot J30. 2 OTHER SEASONAL ALLERGIC RHINITIS 08/09/2019 DENISA ESQUIVEL MD Ot J44. 0 CHR OBSTRUCTIVE PULMON DISEASE WITH (ACU 08/09/2019 DENISA ESQUIVEL MD Ot K21. 9 GASTRO-ESOPHAGEAL REFLUX DISEASE WITHOUT 08/09/2019 DENISA ESQUIVEL MD Ot K44. 9 DIAPHRAGMATIC HERNIA WITHOUT OBSTRUCTION 08/09/2019 DENISA ESQUIVEL MD Ot K59. 09 OTHER CONSTIPATION 08/09/2019 DENISA ESQUIVEL MD Ot K92. 2 GASTROINTESTINAL HEMORRHAGE, UNSPECIFIED 08/09/2019 DENISA SEQUIVEL MD Ot M06. 9 RHEUMATOID ARTHRITIS, UNSPECIFIED 08/09/2019 DENISA ESQUIVEL MD Ot R13. 10 DYSPHAGIA, UNSPECIFIED 08/09/2019 DENISA ESQUIVEL MD Ot R41. 82 ALTERED MENTAL STATUS, UNSPECIFIED 08/09/2019 DENISA ESQUIVEL MD Ot R65. 20 SEVERE SEPSIS WITHOUT SEPTIC SHOCK 08/09/2019 DENISA ESQUIVEL MD Ot Z66 DO NOT RESUSCITATE 08/09/2019 DENISA ESQUIVEL MD Ot Z79. 84 PENITENTIARY (CURRENT) USE OF ORAL HYPOGLYC 08/09/2019 DENISA ESQUIVEL MD Ot Z99. 81 DEPENDENCE ON SUPPLEMENTAL OXYGEN 08/10/2019 DENISA ESQUIVEL MD Ot A41. 9 SEPSIS, UNSPECIFIED ORGANISM 08/10/2019 DENISA ESQUIVEL MD Ot D50. 0 IRON DEFICIENCY ANEMIA SECONDARY TO BLOO 08/10/2019 DENISA ESQUIVEL MD Ot D61.818 OTHER PANCYTOPENIA 08/10/2019 DENISA ESQUIVEL MD Ot E11. 9 TYPE 2 DIABETES MELLITUS WITHOUT COMPLIC 08/10/2019 DENISA ESQUIVEL MD Ot E83. 42 HYPOMAGNESEMIA 08/10/2019 DENISA ESQUIVEL MD Ot E87. 6 HYPOKALEMIA 08/10/2019 DENISA ESQUIVEL MD Ot F32. 9 MAJOR DEPRESSIVE DISORDER, SINGLE EPISOD 08/10/2019 DENISA ESQUIVEL MD Ot F41. 9 ANXIETY DISORDER, UNSPECIFIED 08/10/2019 DENISA ESQUIVEL MD Ot I10 ESSENTIAL (PRIMARY) HYPERTENSION 08/10/2019 DENISA ESQUIVEL MD Ot I38 ENDOCARDITIS, VALVE UNSPECIFIED 08/10/2019 DENISA ESQUIVEL MD Ot I48. 0 PAROXYSMAL ATRIAL FIBRILLATION 08/10/2019 DENISA ESQUIVEL MD Ot J18. 1 LOBAR PNEUMONIA, UNSPECIFIED ORGANISM 08/10/2019 DENISA ESQUIVEL MD Ot J30. 2 OTHER SEASONAL ALLERGIC RHINITIS 08/10/2019 DENISA ESQUIVEL MD Ot J44. 0 CHR OBSTRUCTIVE PULMON DISEASE WITH (ACU 08/10/2019 DENISA ESQUIVEL MD Ot K21. 9 GASTRO-ESOPHAGEAL REFLUX DISEASE WITHOUT 08/10/2019 DENISA ESQUIVEL MD Ot K44. 9 DIAPHRAGMATIC HERNIA WITHOUT OBSTRUCTION 08/10/2019 DENISA ESQUIVEL MD Ot K59. 09 OTHER CONSTIPATION 08/10/2019 DENISA ESQUIVEL MD Ot K92. 2 GASTROINTESTINAL HEMORRHAGE, UNSPECIFIED 08/10/2019 DENISA ESQUIVEL MD Ot M06. 9 RHEUMATOID ARTHRITIS, UNSPECIFIED 08/10/2019 DENISA ESQUIVEL MD Ot R13. 10 DYSPHAGIA, UNSPECIFIED 08/10/2019 DENISA ESQUIVEL MD Ot R41. 82 ALTERED MENTAL STATUS, UNSPECIFIED 08/10/2019 DENISA ESQUIVEL MD Ot R65. 20 SEVERE SEPSIS WITHOUT SEPTIC SHOCK 08/10/2019 DENISA ESQUIVEL MD Ot Z66 DO NOT RESUSCITATE 08/10/2019 DENISA ESQUIVEL MD Ot Z79. 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 9 SEPSIS, UNSPECIFIED ORGANISM 08/11/2019 DENISA ESQUIVEL MD Ot D50. 0 IRON DEFICIENCY ANEMIA SECONDARY TO BLOO 08/11/2019 DENISA ESQUIVEL MD Ot D61.818 OTHER PANCYTOPENIA 08/11/2019 DENISA ESQUIVEL MD Ot E11. 9 TYPE 2 DIABETES MELLITUS WITHOUT COMPLIC 08/11/2019 DENISA ESQUIVEL MD Ot E83. 42 HYPOMAGNESEMIA 08/11/2019 DENISA ESQUIVEL MD Ot E87. 6 HYPOKALEMIA 08/11/2019 DENISA ESQUIVEL MD Ot F32. 9 MAJOR DEPRESSIVE DISORDER, SINGLE EPISOD 08/11/2019 DENISA ESQUIVEL MD Ot F41. 9 ANXIETY DISORDER, UNSPECIFIED 08/11/2019 DENISA ESQUIVEL MD Ot I10 ESSENTIAL (PRIMARY) HYPERTENSION 08/11/2019 DENISA ESQUIVEL MD Ot I38 ENDOCARDITIS, VALVE UNSPECIFIED 08/11/2019 DENISA ESQUIVEL MD Ot I48. 0 PAROXYSMAL ATRIAL FIBRILLATION 08/11/2019 DENISA ESQUIVEL MD Ot J18. 1 LOBAR PNEUMONIA, UNSPECIFIED ORGANISM 08/11/2019 DENISA ESQUIVEL MD Ot J30. 2 OTHER SEASONAL ALLERGIC RHINITIS 08/11/2019 DENISA ESQUIVEL MD Ot J44. 0 CHR OBSTRUCTIVE PULMON DISEASE WITH (ACU 08/11/2019 DENISA ESQUIVEL MD Ot K21. 9 GASTRO-ESOPHAGEAL REFLUX DISEASE WITHOUT 08/11/2019 DENISA ESQUIVEL MD Ot K44. 9 DIAPHRAGMATIC HERNIA WITHOUT OBSTRUCTION 08/11/2019 DENISA ESQUIVEL MD Ot K59. 09 OTHER CONSTIPATION 08/11/2019 DENISA ESQUIVEL MD Ot K92. 2 GASTROINTESTINAL HEMORRHAGE, UNSPECIFIED 08/11/2019 DENISA ESQUIVEL MD Ot M06. 9 RHEUMATOID ARTHRITIS, UNSPECIFIED 08/11/2019 DENISA ESQUIVEL MD Ot R13. 10 DYSPHAGIA, UNSPECIFIED 08/11/2019 DENISA ESQUIVEL MD Ot R41. 82 ALTERED MENTAL STATUS, UNSPECIFIED 08/11/2019 DENISA ESQUIVEL MD Ot R65. 20 SEVERE SEPSIS WITHOUT SEPTIC SHOCK 08/11/2019 DENISA ESQUIVEL MD Ot Z66 DO NOT RESUSCITATE 08/11/2019 DENISA ESQUIVEL MD Ot Z79. 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 9 SEPSIS, UNSPECIFIED ORGANISM 08/11/2019 DENISA ESQUIVEL MD Ot D50. 0 IRON DEFICIENCY ANEMIA SECONDARY TO BLOO 08/11/2019 DENISA ESQUIVEL MD Ot D61.818 OTHER PANCYTOPENIA 08/11/2019 DENISA ESQUIVEL MD Ot E11. 9 TYPE 2 DIABETES MELLITUS WITHOUT COMPLIC 08/11/2019 DENISA ESQUIVEL MD Ot E83. 42 HYPOMAGNESEMIA 08/11/2019 DENISA ESQUIVEL MD Ot E87. 6 HYPOKALEMIA 08/11/2019 DENISA ESQUIVEL MD Ot F32. 9 MAJOR DEPRESSIVE DISORDER, SINGLE EPISOD 08/11/2019 DENISA ESQUIVEL MD Ot F41. 9 ANXIETY DISORDER, UNSPECIFIED 08/11/2019 DENISA ESQUIVEL MD Ot I10 ESSENTIAL (PRIMARY) HYPERTENSION 08/11/2019 DENISA ESQUIVEL MD Ot I38 ENDOCARDITIS, VALVE UNSPECIFIED 08/11/2019 DENISA ESQUIVEL MD Ot I48. 0 PAROXYSMAL ATRIAL FIBRILLATION 08/11/2019 DENISA ESQUIVEL MD, Ot J18. 1 LOBAR PNEUMONIA, UNSPECIFIED ORGANISM 08/11/2019 DENISA ESQUIVEL MD Ot J30. 2 OTHER SEASONAL ALLERGIC RHINITIS 08/11/2019 DENISA ESQUIVEL MD, Ot J44. 0 CHR OBSTRUCTIVE PULMON DISEASE WITH (ACU 08/11/2019 DENISA ESQUIVEL MD Ot K21. 9 GASTRO-ESOPHAGEAL REFLUX DISEASE WITHOUT 08/11/2019 DENISA ESQUIVEL MD Ot K44. 9 DIAPHRAGMATIC HERNIA WITHOUT OBSTRUCTION 08/11/2019 DENISA ESQUIVEL MD Ot K59. 09 OTHER CONSTIPATION 08/11/2019 DENISA ESQUIVEL MD Ot K92. 2 GASTROINTESTINAL HEMORRHAGE, UNSPECIFIED 08/11/2019 DENISA ESQUIVEL MD, Ot M06. 9 RHEUMATOID ARTHRITIS, UNSPECIFIED 08/11/2019 DENISA ESQUIVEL MD Ot R13. 10 DYSPHAGIA, UNSPECIFIED 08/11/2019 DENISA ESQUIVEL MD Ot R41. 82 ALTERED MENTAL STATUS, UNSPECIFIED 08/11/2019 DENISA ESQUIVEL MD Ot R65. 20 SEVERE SEPSIS WITHOUT SEPTIC SHOCK 08/11/2019 DENISA ESQUIVEL MD Ot Z66 DO NOT RESUSCITATE 08/11/2019 DENISA ESQUIVEL MD Ot Z79. 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 0 IRON DEFICIENCY ANEMIA SECONDARY TO BLOO 08/11/2019 DENISA ESQUIVEL MD Ot D61.818 OTHER PANCYTOPENIA 08/11/2019 DENISA ESQUIVEL MD Ot E11. 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 42 HYPOMAGNESEMIA 08/11/2019 DENISA ESQUIVEL MD Ot E87. 2 ACIDOSIS 08/11/2019 DENISA ESQUIVEL MD Ot E87. 6 HYPOKALEMIA 08/11/2019 DENISA ESQUIVEL MD Ot F32. 9 MAJOR DEPRESSIVE DISORDER, SINGLE EPISOD 08/11/2019 DENISA ESQUIVEL MD Ot F41. 9 ANXIETY DISORDER, UNSPECIFIED 08/11/2019 DENISA ESQUIVEL MD Ot G93. 41 METABOLIC ENCEPHALOPATHY 08/11/2019 DENISA ESQUIVEL MD Ot I11. 0 HYPERTENSIVE HEART DISEASE WITH HEART FA 08/11/2019 DENISA ESQUIVEL MD Ot I38 ENDOCARDITIS, VALVE UNSPECIFIED 08/11/2019 DENISA ESQUIVEL MD Ot I48. 0 PAROXYSMAL ATRIAL FIBRILLATION 08/11/2019 DENISA ESQUIVEL MD Ot I50. 33 ACUTE ON CHRONIC DIASTOLIC (CONGESTIVE) 08/11/2019 DENISA ESQUIVEL MD Ot J18. 1 LOBAR PNEUMONIA, UNSPECIFIED ORGANISM 08/11/2019 DENISA ESQUIVEL MD Ot J30. 2 OTHER SEASONAL ALLERGIC RHINITIS 08/11/2019 DENISA ESQUIVEL MD Ot J44. 0 CHR OBSTRUCTIVE PULMON DISEASE WITH (ACU 08/11/2019 DENISA ESQUIVEL MD Ot K21. 9 GASTRO-ESOPHAGEAL REFLUX DISEASE WITHOUT 08/11/2019 DENISA ESQUIVEL MD Ot K44. 9 DIAPHRAGMATIC HERNIA WITHOUT OBSTRUCTION 08/11/2019 DENISA ESQUIVEL MD Ot K59. 09 OTHER CONSTIPATION 08/11/2019 DENISA ESQUIVEL MD Ot K92. 2 GASTROINTESTINAL HEMORRHAGE, UNSPECIFIED 08/11/2019 DENISA ESQUIVEL MD Ot M06. 9 RHEUMATOID ARTHRITIS, UNSPECIFIED 08/11/2019 DENISA ESQUIVEL MD Ot N39. 0 URINARY TRACT INFECTION, SITE NOT SPECIF 08/11/2019 DENISA ESQUIVEL MD Ot R13. 10 DYSPHAGIA, UNSPECIFIED 08/11/2019 DENISA ESQUIVEL MD Ot R65. 20 SEVERE SEPSIS WITHOUT SEPTIC SHOCK 08/11/2019 DENISA ESQUIVEL MD Ot Z66 DO NOT RESUSCITATE 08/11/2019 DENISA ESQUIVEL MD Ot Z79. 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 09/08/2019 DAVINA TRONCOSO SPOUTING INSTALLER Ot R06.00 DYSPNEA, UNSPECIFIED 09/08/2019 BAIMA, DAVINA L SPOUTING INSTALLER Ot R06.02 SHORTNESS OF BREATH 09/08/2019 STEPHANI MADISON, FACUNDO L Ot D64.9 ANEMIA, UNSPECIFIED 09/08/2019 STEPHANI MADISON, FACUNDO L Ot N39.0 URINARY TRACT INFECTION, SITE NOT SPECIF 09/08/2019 BAIMA, DAVINA L SPOUTING INSTALLER Ot R06.00 DYSPNEA, UNSPECIFIED 09/08/2019 BAIMA, DAVINA L SPOUTING INSTALLER Ot R06.02 SHORTNESS OF BREATH 09/08/2019 BAIMA, DAVINA L SPOUTING INSTALLER Ot R06.00 DYSPNEA, UNSPECIFIED 09/08/2019 BAIMA, DAVINA L SPOUTING INSTALLER Ot R06.02 SHORTNESS OF BREATH 09/08/2019 STEPHANI MADISON, FACUNDO L Ot D64.9 ANEMIA, UNSPECIFIED 09/08/2019 STEPHANI MADISON, FACUNDO L Ot N39.0 URINARY TRACT INFECTION, SITE NOT SPECIF 09/23/2019 STEPHANI MADISON, FACUNDO L Ot D64.9 ANEMIA, UNSPECIFIED 09/23/2019 STPEHANI MADISON, FACUNDO L Ot J18.9 PNEUMONIA, UNSPECIFIED ORGANISM 09/23/2019 STEPHANI MADISON, FACUNDO L Ot N39.0 URINARY TRACT INFECTION, SITE NOT SPECIF 09/23/2019 STEPHANI MADISON, FACUNDO L Ot R13.10 DYSPHAGIA, UNSPECIFIED 09/23/2019 STEPHANI MADISON, FACUNDO L Ot R60.9 EDEMA, UNSPECIFIED 09/27/2019 CHRISSLEEROY Ot 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, LYMPH NODES OF AXI 09/28/2019 HOLLIS FINLEY, LITZY Wolfe Ot Z12.3 1 ENCNTR SCREEN MAMMOGRAM FOR MALIGNANT NE 09/28/2019 LITZY SHAFER MD Ot Z12.3 1 ENCNTR SCREEN MAMMOGRAM FOR MALIGNANT NE 10/15/2019 KALPANA PACHECO APRN Ot D64.9 ANEMIA, UNSPECIFIED 10/16/2019 APARNA KING MD Ot A41.9 SEPSIS, UNSPECIFIED ORGANISM 10/16/2019 APARNA KING MD Ot C83.30 DIFFUSE LARGE B-CELL LYMPHOMA, UNSPECIFI 10/16/2019 APARNA KING MD Ot D50.0 IRON DEFICIENCY ANEMIA SECONDARY TO BLOO 10/16/2019 APARNA KING MD Ot E11.9 TYPE 2 DIABETES MELLITUS WITHOUT COMPLIC 10/16/2019 CHRISTINE FINLEY, APARNA Cordova Ot F32.9 MAJOR DEPRESSIVE DISORDER, SINGLE EPISOD 10/16/2019 CHRISTINE FINLEY, APARNA Cordova Ot F41.9 ANXIETY DISORDER, UNSPECIFIED 10/16/2019 APARNA KING MD Ot I10 ESSENTIAL (PRIMARY) HYPERTENSION 10/16/2019 APARNA KING MD Ot I48.0 PAROXYSMAL ATRIAL FIBRILLATION 10/16/2019 APARNA KING MD Ot J18.9 PNEUMONIA, UNSPECIFIED ORGANISM 10/16/2019 APARNA KING MD Ot J44.0 CHR OBSTRUCTIVE PULMON DISEASE WITH (ACU 10/16/2019 APARNA KING MD Ot K21.9 GASTRO-ESOPHAGEAL REFLUX DISEASE WITHOUT 10/16/2019 APARNA KING MD Ot K44.9 DIAPHRAGMATIC HERNIA WITHOUT OBSTRUCTION 10/16/2019 APARNA KING MD Ot K59.09 OTHER CONSTIPATION 10/16/2019 APARNA KING MD Ot M06.9 RHEUMATOID ARTHRITIS, UNSPECIFIED 10/16/2019 APARNA KING MD Ot R13.10 DYSPHAGIA, UNSPECIFIED 10/16/2019 APARNA KING MD Ot Z79.84 PENITENTIARY (CURRENT) USE OF ORAL HYPOGLYC 10/16/2019 APARNA KING MD Ot Z88.0 ALLERGY STATUS TO PENICILLIN 10/16/2019 APARNA KING MD Ot Z88.1 ALLERGY STATUS TO OTHER ANTIBIOTIC AGENT 10/16/2019 APARNA KING MD Ot Z92.21 PERSONAL HISTORY OF ANTINEOPLASTIC CHEMO 10/25/2019 DAVINA TRONCOSO SPOUTING INSTALLER Ot R06.00 DYSPNEA, UNSPECIFIED 10/25/2019 DAVINA TRONCOSO L SPOUTING INSTALLER Ot R06.02 SHORTNESS OF BREATH 10/26/2019 HOLLIS FINLEY, LITZY Wolfe Ot Z12.3 1 ENCNTR SCREEN MAMMOGRAM FOR MALIGNANT NE 10/29/2019 DAVINA TRONCOSO SPOUTING INSTALLER Ot R06.00 DYSPNEA, UNSPECIFIED 10/29/2019 DAVINA TRONCOSO L SPOUTING INSTALLER Ot R06.02 SHORTNESS OF BREATH 11/01/2019 PRISCILLA PRITCHARDP Ot 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, EXTRNOD A 11/01/2019 PRISCILLA PRITCHARD SPOUTING INSTALLER Ot Z53.9 PROCEDURE AND TREATMENT NOT CARRIED OUT, 11/03/2019 FACUNDO ARREOLA Ot M54.2 CERVICALGIA 11/03/2019 FACUNDO ARREOLA Ot R 51 HEADACHE 11/03/2019 FACUNDO ARREOLA Ot Z98.1 ARTHRODESIS STATUS 11/04/2019 PRISCILLA PRITCHARD S SPOUTING INSTALLER Ot 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, EXTRNOD A 11/04/2019 PRISCILLA PRITCHARD S SPOUTING INSTALLER Ot Z01.89 ENCOUNTER FOR OTHER SPECIFIED SPECIAL EX 11/10/2019 CHRISS BOBAN N Ot 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, LYMPH NODES OF AXI 11/10/2019 CHRISS BOBAN N Ot Z51.11 ENCOUNTER FOR ANTINEOPLASTIC CHEMOTHERAP 11/15/2019 CHRISS BOBAN N Ot 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, LYMPH NODES OF AXI 11/15/2019 CHRISS BOBAN N Ot Z51.11 ENCOUNTER FOR ANTINEOPLASTIC CHEMOTHERAP 11/19/2019 CHRISS BOBAN N Ot 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, LYMPH NODES OF AXI 11/25/2019 PRISCILLA PRITCHARD S SPOUTING INSTALLER Ot 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, EXTRNOD A 11/25/2019 PRISCILLA PRITCHARD S SPOUTING INSTALLER Ot Z01.89 ENCOUNTER FOR OTHER SPECIFIED SPECIAL EX 11/25/2019 FACUNDO ARREOLA Ot M54.2 CERVICALGIA 11/25/2019 FACUNDO ARREOLA Ot R 51 HEADACHE 11/25/2019 FACUNDO ARREOLA Ot Z98.1 ARTHRODESIS STATUS 11/28/2019 CHRISS, BOBAN N Ot 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, LYMPH NODES OF AXI 11/28/2019 CHRISS, BOBAN N Ot Z51.11 ENCOUNTER FOR ANTINEOPLASTIC CHEMOTHERAP 12/01/2019 CHRISS, BOBAN N Ot 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, LYMPH NODES OF AXI 12/01/2019 CHRISS, BOBAN N Ot Z51.11 ENCOUNTER FOR ANTINEOPLASTIC CHEMOTHERAP 12/02/2019 CHRISS, BOBAN N Ot 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, LYMPH NODES OF AXI 12/02/2019 CHRISS, BOBAN N Ot Z51.11 ENCOUNTER FOR ANTINEOPLASTIC CHEMOTHERAP 12/06/2019 PRITCHARDPRISCILLA Jenaro GARCIA Ot 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, EXTRNOD A 12/06/2019 PRISCILLA PRITCHARD Jenaro GARCIA Ot Z01.89 ENCOUNTER FOR OTHER SPECIFIED SPECIAL EX 12/06/2019 FACUNDO ARREOLA Ot M54.2 CERVICALGIA 12/06/2019 FACUNDO ARREOLA Ot R 51 HEADACHE 12/06/2019 FACUNDO ARREOLA Ot Z98.1 ARTHRODESIS STATUS Procedures Code Description Performed By Per formed On [id number] EX CISION OF LEFT AXILLARY LYMPHATIC, OPE 08/02/[id number] HENLEY OF RIGHT PLEURAL CAVITY, PERC A 08/03/2019 Results Test Result Range Capillary blood glucose measurement by g lucometer (mass/volume) - 07/08/19 19:10 Capillary blood glucose measurement by glucometer (mas s/volume) 183 mg/dL 70-110 Complete blood count (CBC) with automate d white blood cell (WBC) differential - 07/08/19 19:10 Blood leukocytes automated count (number/volume) 6.9 10*3/uL 4.3-11.0 Blood erythrocytes automated count (number/volume) 2.65 10*6/uL 4.35-5.85 Venous blood hemoglobin measurement (mass/volume) 7.1 g/dL 11.5-16.0 Blood hematocrit (volume fraction) 23 % 35-52 Automated erythrocyte mean corpuscular volume 86 [ foz_us] 80-99 Automated erythrocyte mean corpuscular h emoglobin (mass per erythrocyte) 27 pg 25-34 Automated erythrocyte mean corpuscular h emoglobin concentration measurement (mass/volume) 31 g/dL 32-36 Automated erythrocyte distribution width ratio 17. 7 % 10.0- 14.5 Automated blood platelet count (count/volume) 209 10*3/uL 130-400 Automated blood platelet mean volume measurement 10.1 [foz_us] 7.4-10.4 Automated blood neutrophils/100 leukocytes 74 % 42-75 Automated blood lymphocytes/100 leukocytes 8 % 12-44 Blood monocytes/100 leukocytes 18 % 0-12 Automated blood eosinophils/100 leukocytes 0 % 0-10 Automated blood basophils/100 leukocytes 0 % 0-10 Blood neutrophils automated count (number/volume) 5.1 10*3 1.8-7.8 Blood lymphocytes automated count (number/volume) 0.5 10*3 1.0-4.0 Blood monocytes automated count (number/volume) 1. 3 10*3 0.0-1.0 Automated eosinophil count 0.0 10*3/uL 0 .0-0.3 Automated blood basophil count (count/volume) 0.0 10*3/uL 0.0-0.1 PT panel in platelet poor plasma by coag ulation assay - 07/08/19 19:10 Prothrombin time (PT) in platelet poor plasma by coagu lation assay 22.1 s 12.2-14.7 INR in platelet poor plasma or blood by coagulation as say 1.8 0.8-1.4 Activated partial thromboplastin time (a PTT) in platelet poor plasma bycoagulation assay - 07/08/19 19:10 Activated partial thromboplastin time (a PTT) in platelet poor plasma bycoagulation assay 56 s 24-35 Blood lactic acid measurement (moles/vol ume) - 07/08/19 19:10 Blood lactic acid measurement (moles/volume) 2.66 mmol/L 0.50-2.00 Comprehensive metabolic panel - 07/08/19 19:10 Serum or plasma sodium measurement (moles/volume) 132 mmol/L 135-145 Serum or plasma potassium measurement (moles/volume) 3.7 mmol/L 3.6-5.0 Serum or plasma chloride measurement (moles/volume) 97 mmol/L 98-107 Carbon dioxide 26 mmol/L 21-32 Serum or plasma anion gap determination (moles/volume) 9 mmol/L 5-14 Serum or plasma urea nitrogen measurement (mass/volume ) 19 mg/dL 7-18 Serum or plasma creatinine measurement (mass/volume) 0.80 mg/dL 0.60-1.30 Serum or plasma urea nitrogen/creatinine mass ratio 24 NRG Serum or plasma creatinine measurement w ith calculation of estimated glomerular filtration rate > NRG Serum or plasma glucose measurement (mass/volume) 164 mg/dL 70-105 Serum or plasma calcium measurement (mass/volume) 7.7 mg/dL 8.5-10.1 Serum or plasma total bilirubin measurement (mass/volu me) 1.0 mg/dL 0.1-1.0 Serum or plasma alkaline phosphatase charles surement (enzymatic activity/volume) 92 U/L 40-136 Serum or plasma aspartate aminotransfera se measurement (enzymatic activity/volume) 30 U/L 5-34 Serum or plasma alanine aminotransferase measurement (enzymatic activity/volume) 13 U/L 0-55 Serum or plasma protein measurement (mass/volume) 5.2 g/dL 6.4-8.2 Serum or plasma albumin measurement (mass/volume) 2.2 g/dL 3.2-4.5 CALCIUM CORRECTED 9.1 mg/dL 8.5-10.1 Magnesium - 07/08/19 19:10 Magnesium 1.5 mg/dL 1.6-2.4 Serum or plasma creatine kinase measurem ent (enzymatic activity/volume) - 07/08/19 19:10 Serum or plasma creatine kinase measurem ent (enzymatic activity/volume) 34 U/L 29-168 Serum or plasma creatine kinase MB measu rement (enzymatic activity/volume) - 07/08/19 19:10 Serum or plasma creatine kinase MB measu rement (enzymatic activity/volume) 0.2 ng/mL <6.6 Serum or plasma troponin i.cardiac measu rement (mass/volume) - 07/08/19 19:10 Serum or plasma troponin i.cardiac measurement (mass/v olume) < ng/mL <0.028 Myoglobin, serum - 07/08/19 19:10 Myoglobin, serum 48.4 ng/mL 10.0-92.0 Influenza virus A and B antigen detectio n - 07/08/19 19:10 FLU RESULT NEGATIVE FOR INFLUENZA A AND B ANTIGENS BY [facility] Manual absolute plasma cell count - 03/19 19:10 Blood monocytes/100 leukocytes 14 % NRG Manual blood segmented neutrophils/100 leukocytes 64 % NRG Blood band neutrophils/100 leukocytes 16 % NRG Manual blood lymphocytes/100 leukocytes 6 % NR Blood erythrocyte morphology finding identification NORMAL NR Blood toxic granules detection by light microscopy 1+ NRG Serum or plasma amylase measurement (enz ymatic activity/volume) - 07/08/19 19:10 Serum or plasma amylase measurement (enzymatic activit y/volume) 25 U/L 25-125 Lipase - 07/08/19 19:10 Lipase 16 U/L 8-78 Ammonia - 07/08/19 19:10 Ammonia 34 umol/L 11-32 Serum or plasma thyrotropin measurement by detection limit <=0.05 miu/l (units/volume) - 07/08/19 19:10 Serum or plasma thyrotropin measurement by detection limit <=0.05 miu/l (units/volume) 1.00 u[iU]/mL 0.35-4.94 Serum or plasma lithium measurement (mol es/volume) - 07/08/19 19:10 BNP PT 42.9 pg/mL <100.0 Bacterial blood culture - 07/08/19 19:10 Bacterial blood culture NG NRG Complete urinalysis with reflex to cultu re - 07/08/19 19:18 Urine color determination YELLOW NRG Urine clarity determination CLEAR NR G Urine pH measurement by test strip >= 5-9 Specific gravity of urine by test strip <= 1.016-1.022 Urine protein assay by test strip, semi-quantitative 1+ NEGATIVE Urine glucose detection by automated test strip NE GATIVE NEGATIVE Erythrocytes detection in urine sediment by light micr oscopy 1+ NEGATIVE Urine ketones detection by automated test strip NE GATIVE NEGATIVE Urine nitrite detection by test strip POSITIVE NEGATIVE Urine total bilirubin detection by test strip NEGA TIVE NEGATIVE Urine urobilinogen measurement by automated test strip (mass/volume) 1.0 mg/dL < = 1.0 Urine leukocyte esterase detection by dipstick 1+ NEGATIVE Automated urine sediment erythrocyte cou nt by microscopy (number/high power field) NONE NRG Automated urine sediment leukocyte count by microscopy (number/high power field) [HPF] NRG Bacteria detection in urine sediment by light microsco py LARGE NRG Crystals detection in urine sediment by light microsco py PRESENT NRG Casts detection in urine sediment by light microscopy NONE NRG Mucus detection in urine sediment by light microscopy NEGATIVE NRG Complete urinalysis with reflex to culture YES NRG Amorphous sediment detection in urine sediment by ligh t microscopy MOD HAJA PHOSPHATE NRG Bacterial urine culture - 07/08/19 19:18 Bacterial urine culture [id number] NRG COLONY COUNT >100,000/ML NRG FTX;REPORTABLE SUSCEPTIBILITY REPORTED 07/10 09:40 NRG Dirithromycin susceptibility test by dis k diffusion - 07/08/19 19:18 Gentamicin susceptibility test by minimum inhibitory c oncentration <= NRG Trimethoprim/sulfamethoxazole susceptibi lity test by minimum inhibitoryconcentration <= NRG Levofloxacin susceptibility test by minimum inhibitory concentration <= NRG Ampicillin susceptibility test by minimum inhibitory c oncentration <= NRG Ceftriaxone susceptibility test by minimum inhibitory concentration <= NRG Ciprofloxacin susceptibility test by minimum inhibitor y concentration <= NRG Nitrofurantoin susceptibility test by mi nimum inhibitory concentration > NRG Amoxicillin and clavulanate potassium susc WALE <= NRG Bacterial blood culture - 07/08/19 19:37 Bacterial blood culture NG NRG Serum or plasma lactate measurement (mol es/volume) - 07/08/19 20:40 Serum or plasma lactate measurement (moles/volume) 2.64 mmol/L 0.50-2.00 RED CELLS LEUKO REDUCED AS1 - 07/08/19 2 0:40 RED CELLS LEUKO REDUCED AS1 T RANSFUSED [id number] NRG Blood type T Indirect antibody screen pa erlin - 07/08/19 20:40 WRISTBAND NUMBER [id number] NRG ABO+Rh group BP NRG Blood group antibody screen NEGATIVE NR G Complete blood count (CBC) with automate d white blood cell (WBC) differential - 07/09/19 02:35 Blood leukocytes automated count (number/volume) 7.2 10*3/uL 4.3-11.0 Blood erythrocytes automated count (number/volume) 3.03 10*6/uL 4.35-5.85 Venous blood hemoglobin measurement (mass/volume) 8.3 g/dL 11.5-16.0 Blood hematocrit (volume fraction) 26 % 35-52 Automated erythrocyte mean corpuscular volume 87 [ foz_us] 80-99 Automated erythrocyte mean corpuscular h emoglobin (mass per erythrocyte) 27 pg 25-34 Automated erythrocyte mean corpuscular h emoglobin concentration measurement (mass/volume) 32 g/dL 32-36 Automated erythrocyte distribution width ratio 17. 1 % 10.0- 14.5 Automated blood platelet count (count/volume) 196 10*3/uL 130-400 Automated blood platelet mean volume measurement 9.8 [foz_us] 7.4-10.4 Automated blood neutrophils/100 leukocytes 80 % 42-75 Automated blood lymphocytes/100 leukocytes 8 % 12-44 Blood monocytes/100 leukocytes 12 % 0-12 Automated blood eosinophils/100 leukocytes 0 % 0-10 Automated blood basophils/100 leukocytes 0 % 0-10 Blood neutrophils automated count (number/volume) 5.8 10*3 1.8-7.8 Blood lymphocytes automated count (number/volume) 0.6 10*3 1.0-4.0 Blood monocytes automated count (number/volume) 0. 9 10*3 0.0-1.0 Automated eosinophil count 0.0 10*3/uL 0 .0-0.3 Automated blood basophil count (count/volume) 0.0 10*3/uL 0.0-0.1 Automated reticulocyte percentage - 04/19 02:35 Blood reticulocytes count (number/volume) 81 10*9/ L 24-90 Blood reticulocytes/100 erythrocytes 2.68 % 0.50-2.40 Comprehensive metabolic panel - 07/09/19 02:35 Serum or plasma sodium measurement (moles/volume) 138 mmol/L 135-145 Serum or plasma potassium measurement (moles/volume) 3.4 mmol/L 3.6-5.0 Serum or plasma chloride measurement (moles/volume) 103 mmol/L 98-107 Carbon dioxide 26 mmol/L 21-32 Serum or plasma anion gap determination (moles/volume) 9 mmol/L 5-14 Serum or plasma urea nitrogen measurement (mass/volume ) 15 mg/dL 7-18 Serum or plasma creatinine measurement (mass/volume) 0.67 mg/dL 0.60-1.30 Serum or plasma urea nitrogen/creatinine mass ratio 22 NRG Serum or plasma creatinine measurement w ith calculation of estimated glomerular filtration rate > NRG Serum or plasma glucose measurement (mass/volume) 109 mg/dL 70-105 Serum or plasma calcium measurement (mass/volume) 7.7 mg/dL 8.5-10.1 Serum or plasma total bilirubin measurement (mass/volu me) 1.2 mg/dL 0.1-1.0 Serum or plasma alkaline phosphatase charles surement (enzymatic activity/volume) 91 U/L 40-136 Serum or plasma aspartate aminotransfera se measurement (enzymatic activity/volume) 28 U/L 5-34 Serum or plasma alanine aminotransferase measurement (enzymatic activity/volume) 10 U/L 0-55 Serum or plasma protein measurement (mass/volume) 5.1 g/dL 6.4-8.2 Serum or plasma albumin measurement (mass/volume) 2.2 g/dL 3.2-4.5 CALCIUM CORRECTED 9.1 mg/dL 8.5-10.1 Magnesium - 07/09/19 02:35 Magnesium 1.8 mg/dL 1.6-2.4 IRON TEST - 07/09/19 02:35 Serum or plasma iron measurement (mass/volume) NR Serum iron and total iron binding capaci ty panel - 07/09/19 02:35 TIBC 160 % 280-380 UIBC 133 % 55-450 Total iron binding capacity and transferrin saturation measurement 17 % 15-50 Serum or plasma ferritin measurement (mass/volume) 1733.1 % 20.0-177.0 Serum or plasma folate measurement (mass /volume) - 07/09/19 02:35 Serum or plasma folate measurement (mass/volume) 1 4.5 % >=4.0 VITAMIN B 12 - 07/09/19 02:35 VITAMIN B 12 562 pg/mL 190-1100 Capillary blood glucose measurement by g lucometer (mass/volume) - 07/09/19 12:04 Capillary blood glucose measurement by glucometer (mas s/volume) 148 mg/dL 70-110 Capillary blood glucose measurement by g lucometer (mass/volume) - 07/09/19 16:00 Capillary blood glucose measurement by glucometer (mas s/volume) 107 mg/dL 70-110 Capillary blood glucose measurement by g lucometer (mass/volume) - 07/09/19 20:17 Capillary blood glucose measurement by glucometer (mas s/volume) 122 mg/dL 70-110 Complete blood count (CBC) with automate d white blood cell (WBC) differential - 07/10/19 02:52 Blood leukocytes automated count (number/volume) 5.1 10*3/uL 4.3-11.0 Blood erythrocytes automated count (number/volume) 3.06 10*6/uL 4.35-5.85 Venous blood hemoglobin measurement (mass/volume) 8.3 g/dL 11.5-16.0 Blood hematocrit (volume fraction) 26 % 35-52 Automated erythrocyte mean corpuscular volume 86 [ foz_us] 80-99 Automated erythrocyte mean corpuscular h emoglobin (mass per erythrocyte) 27 pg 25-34 Automated erythrocyte mean corpuscular h emoglobin concentration measurement (mass/volume) 31 g/dL 32-36 Automated erythrocyte distribution width ratio 17. 4 % 10.0- 14.5 Automated blood platelet count (count/volume) 200 10*3/uL 130-400 Automated blood platelet mean volume measurement 9.4 [foz_us] 7.4-10.4 Automated blood neutrophils/100 leukocytes 74 % 42-75 Automated blood lymphocytes/100 leukocytes 9 % 12-44 Blood monocytes/100 leukocytes 16 % 0-12 Automated blood eosinophils/100 leukocytes 0 % 0-10 Automated blood basophils/100 leukocytes 0 % 0-10 Blood neutrophils automated count (number/volume) 3.8 10*3 1.8-7.8 Blood lymphocytes automated count (number/volume) 0.5 10*3 1.0-4.0 Blood monocytes automated count (number/volume) 0. 8 10*3 0.0-1.0 Automated eosinophil count 0.0 10*3/uL 0 .0-0.3 Automated blood basophil count (count/volume) 0.0 10*3/uL 0.0-0.1 Whole blood basic metabolic panel - 05/20 02:52 Serum or plasma sodium measurement (moles/volume) 140 mmol/L 135-145 Serum or plasma potassium measurement (moles/volume) 3.6 mmol/L 3.6-5.0 Serum or plasma chloride measurement (moles/volume) 111 mmol/L 98-107 Carbon dioxide 22 mmol/L 21-32 Serum or plasma anion gap determination (moles/volume) 7 mmol/L 5-14 Serum or plasma urea nitrogen measurement (mass/volume ) 9 mg/dL 7-18 Serum or plasma creatinine measurement (mass/volume) 0.50 mg/dL 0.60-1.30 Serum or plasma urea nitrogen/creatinine mass ratio 18 NRG Serum or plasma creatinine measurement w ith calculation of estimated glomerular filtration rate > NRG Serum or plasma glucose measurement (mass/volume) 89 mg/dL 70-105 Serum or plasma calcium measurement (mass/volume) 7.3 mg/dL 8.5-10.1 Serum or plasma phosphate measurement (m ass/volume) - 07/10/19 02:52 Serum or plasma phosphate measurement (mass/volume) 2.5 mg/dL 2.3-4.7 Magnesium - 07/10/19 02:52 Magnesium 1.5 mg/dL 1.6-2.4 OCCULT BLOOD STOOL - 07/10/19 09:28 Stool gastrointestinal hemoglobin detection POSITI VE NEGATIVE Capillary blood glucose measurement by g lucometer (mass/volume) - 07/10/19 11:26 Capillary blood glucose measurement by glucometer (mas s/volume) 80 mg/dL 70-110 Capillary blood glucose measurement by g lucometer (mass/volume) - 07/10/19 16:07 Capillary blood glucose measurement by glucometer (mas s/volume) 109 mg/dL 70-110 Capillary blood glucose measurement by g lucometer (mass/volume) - 07/10/19 19:53 Capillary blood glucose measurement by glucometer (mas s/volume) 115 mg/dL 70-110 Complete blood count (CBC) with automate d white blood cell (WBC) differential - 07/11/19 03:15 Blood leukocytes automated count (number/volume) 3.5 10*3/uL 4.3-11.0 Blood erythrocytes automated count (number/volume) 3.17 10*6/uL 4.35-5.85 Venous blood hemoglobin measurement (mass/volume) 8.6 g/dL 11.5-16.0 Blood hematocrit (volume fraction) 28 % 35-52 Automated erythrocyte mean corpuscular volume 87 [ foz_us] 80-99 Automated erythrocyte mean corpuscular h emoglobin (mass per erythrocyte) 27 pg 25-34 Automated erythrocyte mean corpuscular h emoglobin concentration measurement (mass/volume) 31 g/dL 32-36 Automated erythrocyte distribution width ratio 17. 6 % 10.0- 14.5 Automated blood platelet count (count/volume) 211 10*3/uL 130-400 Automated blood platelet mean volume measurement 9.6 [foz_us] 7.4-10.4 Automated blood neutrophils/100 leukocytes 70 % 42-75 Automated blood lymphocytes/100 leukocytes 13 % 12-44 Blood monocytes/100 leukocytes 16 % 0-12 Automated blood eosinophils/100 leukocytes 1 % 0-10 Automated blood basophils/100 leukocytes 1 % 0-10 Blood neutrophils automated count (number/volume) 2.4 10*3 1.8-7.8 Blood lymphocytes automated count (number/volume) 0.5 10*3 1.0-4.0 Blood monocytes automated count (number/volume) 0. 6 10*3 0.0-1.0 Automated eosinophil count 0.0 10*3/uL 0 .0-0.3 Automated blood basophil count (count/volume) 0.0 10*3/uL 0.0-0.1 Whole blood basic metabolic panel - 07/02 03:15 Serum or plasma sodium measurement (moles/volume) 139 mmol/L 135-145 Serum or plasma potassium measurement (moles/volume) 4.0 mmol/L 3.6-5.0 Serum or plasma chloride measurement (moles/volume) 108 mmol/L 98-107 Carbon dioxide 20 mmol/L 21-32 Serum or plasma anion gap determination (moles/volume) 11 mmol/L 5-14 Serum or plasma urea nitrogen measurement (mass/volume ) 7 mg/dL 7-18 Serum or plasma creatinine measurement (mass/volume) 0.52 mg/dL 0.60-1.30 Serum or plasma urea nitrogen/creatinine mass ratio 13 NRG Serum or plasma creatinine measurement w ith calculation of estimated glomerular filtration rate > NRG Serum or plasma glucose measurement (mass/volume) 80 mg/dL 70-105 Serum or plasma calcium measurement (mass/volume) 7.7 mg/dL 8.5-10.1 Serum or plasma phosphate measurement (m ass/volume) - 07/11/19 03:15 Serum or plasma phosphate measurement (mass/volume) 5.6 mg/dL 2.3-4.7 Magnesium - 07/11/19 03:15 Magnesium 1.9 mg/dL 1.6-2.4 Capillary blood glucose measurement by g lucometer (mass/volume) - 07/11/19 05:15 Capillary blood glucose measurement by glucometer (mas s/volume) 85 mg/dL 70-110 Capillary blood glucose measurement by g lucometer (mass/volume) - 07/11/19 09:06 Capillary blood glucose measurement by glucometer (mas s/volume) 93 mg/dL 70-110 Capillary blood glucose measurement by g lucometer (mass/volume) - 07/11/19 11:37 Capillary blood glucose measurement by glucometer (mas s/volume) 100 mg/dL 70-110 Capillary blood glucose measurement by g lucometer (mass/volume) - 07/11/19 16:50 Capillary blood glucose measurement by glucometer (mas s/volume) 112 mg/dL 70-110 Capillary blood glucose measurement by g lucometer (mass/volume) - 07/11/19 20:15 Capillary blood glucose measurement by glucometer (mas s/volume) 137 mg/dL 70-110 Complete blood count (CBC) with automate d white blood cell (WBC) differential - 07/12/19 03:15 Blood leukocytes automated count (number/volume) 4.6 10*3/uL 4.3-11.0 Blood erythrocytes automated count (number/volume) 2.91 10*6/uL 4.35-5.85 Venous blood hemoglobin measurement (mass/volume) 7.8 g/dL 11.5-16.0 Blood hematocrit (volume fraction) 25 % 35-52 Automated erythrocyte mean corpuscular volume 87 [ foz_us] 80-99 Automated erythrocyte mean corpuscular h emoglobin (mass per erythrocyte) 27 pg 25-34 Automated erythrocyte mean corpuscular h emoglobin concentration measurement (mass/volume) 31 g/dL 32-36 Automated erythrocyte distribution width ratio 17. 7 % 10.0- 14.5 Automated blood platelet count (count/volume) 221 10*3/uL 130-400 Automated blood platelet mean volume measurement 9.9 [foz_us] 7.4-10.4 Automated blood neutrophils/100 leukocytes 75 % 42-75 Automated blood lymphocytes/100 leukocytes 9 % 12-44 Blood monocytes/100 leukocytes 15 % 0-12 Automated blood eosinophils/100 leukocytes 1 % 0-10 Automated blood basophils/100 leukocytes 0 % 0-10 Blood neutrophils automated count (number/volume) 3.5 10*3 1.8-7.8 Blood lymphocytes automated count (number/volume) 0.4 10*3 1.0-4.0 Blood monocytes automated count (number/volume) 0. 7 10*3 0.0-1.0 Automated eosinophil count 0.0 10*3/uL 0 .0-0.3 Automated blood basophil count (count/volume) 0.0 10*3/uL 0.0-0.1 Whole blood basic metabolic panel - 07/02 09/19 03:15 Serum or plasma sodium measurement (moles/volume) 137 mmol/L 135-145 Serum or plasma potassium measurement (moles/volume) 3.8 mmol/L 3.6-5.0 Serum or plasma chloride measurement (moles/volume) 106 mmol/L 98-107 Carbon dioxide 22 mmol/L 21-32 Serum or plasma anion gap determination (moles/volume) 9 mmol/L 5-14 Serum or plasma urea nitrogen measurement (mass/volume ) 8 mg/dL 7-18 Serum or plasma creatinine measurement (mass/volume) 0.61 mg/dL 0.60-1.30 Serum or plasma urea nitrogen/creatinine mass ratio 13 NRG Serum or plasma creatinine measurement w ith calculation of estimated glomerular filtration rate > NRG Serum or plasma glucose measurement (mass/volume) 94 mg/dL 70-105 Serum or plasma calcium measurement (mass/volume) 7.9 mg/dL 8.5-10.1 Capillary blood glucose measurement by g lucometer (mass/volume) - 07/12/19 10:53 Capillary blood glucose measurement by glucometer (mas s/volume) 98 mg/dL 70-110 Complete blood count (CBC) with automate d white blood cell (WBC) differential - 07/14/19 17:05 Blood leukocytes automated count (number/volume) 4.2 10*3/uL 4.3-11.0 Blood erythrocytes automated count (number/volume) 2.53 10*6/uL 4.35-5.85 Venous blood hemoglobin measurement (mass/volume) 6.7 g/dL 11.5-16.0 Blood hematocrit (volume fraction) 22 % 35-52 Automated erythrocyte mean corpuscular volume 87 [ foz_us] 80-99 Automated erythrocyte mean corpuscular h emoglobin (mass per erythrocyte) 26 pg 25-34 Automated erythrocyte mean corpuscular h emoglobin concentration measurement (mass/volume) 31 g/dL 32-36 Automated erythrocyte distribution width ratio 18. 3 % 10.0- 14.5 Automated blood platelet count (count/volume) 198 10*3/uL 130-400 Automated blood platelet mean volume measurement 9.9 [foz_us] 7.4-10.4 Automated blood neutrophils/100 leukocytes 65 % 42-75 Automated blood lymphocytes/100 leukocytes 8 % 12-44 Blood monocytes/100 leukocytes 26 % 0-12 Automated blood eosinophils/100 leukocytes 0 % 0-10 Automated blood basophils/100 leukocytes 1 % 0-10 Blood neutrophils automated count (number/volume) 2.7 10*3 1.8-7.8 Blood lymphocytes automated count (number/volume) 0.4 10*3 1.0-4.0 Blood monocytes automated count (number/volume) 1. 1 10*3 0.0-1.0 Automated eosinophil count 0.0 10*3/uL 0 .0-0.3 Automated blood basophil count (count/volume) 0.0 10*3/uL 0.0-0.1 Complete urinalysis with reflex to cultu re - 07/14/19 17:05 Urine color determination YELLOW NRG Urine clarity determination SL CLOUDY N RG Urine pH measurement by test strip 5.5 5-9 Specific gravity of urine by test strip 1.015 1.016-1.022 Urine protein assay by test strip, semi-quantitative NEGATIVE NEGATIVE Urine glucose detection by automated test strip NE GATIVE NEGATIVE Erythrocytes detection in urine sediment by light micr oscopy 1+ NEGATIVE Urine ketones detection by automated test strip NE GATIVE NEGATIVE Urine nitrite detection by test strip NEGATIVE NEGATIVE Urine total bilirubin detection by test strip NEGA TIVE NEGATIVE Urine urobilinogen measurement by automated test strip (mass/volume) 0.2 mg/dL < = 1.0 Urine leukocyte esterase detection by dipstick NEG ATIVE NEGATIVE Automated urine sediment erythrocyte cou nt by microscopy (number/high power field) [HPF] NRG Automated urine sediment leukocyte count by microscopy (number/high power field) RARE NRG Bacteria detection in urine sediment by light microsco py TRACE NRG Squamous epithelial cells detection in u rine sediment by light microscopy 5-10 NRG Crystals detection in urine sediment by light microsco py NONE NRG Casts detection in urine sediment by light microscopy PRESENT NRG Mucus detection in urine sediment by light microscopy SMALL NRG Complete urinalysis with reflex to culture NO NRG Granular casts detection in urine sediment by light mi croscopy 2-5 NRG Comprehensive metabolic panel - 07/14/19 17:05 Serum or plasma sodium measurement (moles/volume) 134 mmol/L 135-145 Serum or plasma potassium measurement (moles/volume) 3.1 mmol/L 3.6-5.0 Serum or plasma chloride measurement (moles/volume) 100 mmol/L 98-107 Carbon dioxide 26 mmol/L 21-32 Serum or plasma anion gap determination (moles/volume) 8 mmol/L 5-14 Serum or plasma urea nitrogen measurement (mass/volume ) 9 mg/dL 7-18 Serum or plasma creatinine measurement (mass/volume) 0.67 mg/dL 0.60-1.30 Serum or plasma urea nitrogen/creatinine mass ratio 13 NRG Serum or plasma creatinine measurement w ith calculation of estimated glomerular filtration rate > NRG Serum or plasma glucose measurement (mass/volume) 95 mg/dL 70-105 Serum or plasma calcium measurement (mass/volume) 7.5 mg/dL 8.5-10.1 Serum or plasma total bilirubin measurement (mass/volu me) 1.1 mg/dL 0.1-1.0 Serum or plasma alkaline phosphatase charles surement (enzymatic activity/volume) 108 U/L 40-136 Serum or plasma aspartate aminotransfera se measurement (enzymatic activity/volume) 29 U/L 5-34 Serum or plasma alanine aminotransferase measurement (enzymatic activity/volume) 9 U/L 0-55 Serum or plasma protein measurement (mass/volume) 4.8 g/dL 6.4-8.2 Serum or plasma albumin measurement (mass/volume) 2.0 g/dL 3.2-4.5 CALCIUM CORRECTED 9.1 mg/dL 8.5-10.1 Manual absolute plasma cell count - 07/02 11/17 17:05 Blood monocytes/100 leukocytes 24 % NRG Manual blood segmented neutrophils/100 leukocytes 61 % NRG Blood band neutrophils/100 leukocytes 9 % NRG Manual blood lymphocytes/100 leukocytes 6 % NRG Manual eosinophils/100 leukocytes in nose 0 % NRG Manual blood basophils/100 leukocytes 0 % NRG Blood anisocytosis detection by light microscopy S LIGHT NRG Blood toxic granules detection by light microscopy 1+ NRG Blood hypochromia detection by light microscopy SL IGHT NRG Blood microcytes detection by light microscopy SLI GHT NRG RED CELLS LEUKO REDUCED AS1 - 07/16/19 0 9:30 RED CELLS LEUKO REDUCED AS1 T RANSFUSED 07/16/19 [id number] NR Blood type T Indirect antibody screen [facility] 07/16/19 09:30 WRISTBAND NUMBER [id number] NRG ABO+Rh group BP NRG Blood group antibody screen NEGATIVE NR G Whole blood hemoglobin and hematocrit [facility] 07/16/19 14:25 Venous blood hemoglobin measurement (mass/volume) 7.7 g/dL 11.5-16.0 Blood hematocrit (volume fraction) 24 % 35-52 RED CELLS LEUKO REDUCED AS1 - 07/22/19 0 8:32 RED CELLS LEUKO REDUCED AS1 T RANSFUSED 07/22/19 [id number] NRG Blood type T Indirect antibody screen [facility] - 07/22/19 08:32 WRISTBAND NUMBER [id number] NRG ABO+Rh group BP NRG Blood group antibody screen NEGATIVE NR G Whole blood hemoglobin and hematocrit [facility] - 07/22/19 15:40 Venous blood hemoglobin measurement (mass/volume) 9.5 g/dL 11.5-16.0 Blood hematocrit (volume fraction) 30 % 35-52 Complete blood count (CBC) with automate d white blood cell (WBC) differential - 07/27/19 15:55 Blood leukocytes automated count (number/volume) 4.2 10*3/uL 4.3-11.0 Blood erythrocytes automated count (number/volume) 2.66 10*6/uL 4.35-5.85 Venous blood hemoglobin measurement (mass/volume) 7.6 g/dL 11.5-16.0 Blood hematocrit (volume fraction) 24 % 35-52 Automated erythrocyte mean corpuscular volume 89 [ foz_us] 80-99 Automated erythrocyte mean corpuscular h emoglobin (mass per erythrocyte) 29 pg 25-34 Automated erythrocyte mean corpuscular h emoglobin concentration measurement (mass/volume) 32 g/dL 32-36 Automated erythrocyte distribution width ratio 19. 9 % 10.0- 14.5 Automated blood platelet count (count/volume) 79 1 0*3/uL 130-400 Automated blood platelet mean volume measurement 10.3 [foz_us] 7.4-10.4 Automated blood neutrophils/100 leukocytes 62 % 42-75 Automated blood lymphocytes/100 leukocytes 7 % 12-44 Blood monocytes/100 leukocytes 31 % 0-12 Automated blood eosinophils/100 leukocytes 0 % 0-10 Automated blood basophils/100 leukocytes 0 % 0-10 Blood neutrophils automated count (number/volume) 2.6 10*3 1.8-7.8 Blood lymphocytes automated count (number/volume) 0.3 10*3 1.0-4.0 Blood monocytes automated count (number/volume) 1. 3 10*3 0.0-1.0 Automated eosinophil count 0.0 10*3/uL 0 .0-0.3 Automated blood basophil count (count/volume) 0.0 10*3/uL 0.0-0.1 Blood lactic acid measurement (moles/vol ume) - 07/27/19 15:55 Blood lactic acid measurement (moles/volume) 1.74 mmol/L 0.50-2.00 PT panel in platelet poor plasma by coag ulation assay - 07/27/19 15:55 Prothrombin time (PT) in platelet poor plasma by coagu lation assay 16.1 s 12.2-14.7 INR in platelet poor plasma or blood by coagulation as say 1.2 0.8-1.4 Activated partial thromboplastin time (a PTT) in platelet poor plasma bycoagulation assay - 07/27/19 15:55 Activated partial thromboplastin time (a PTT) in platelet poor plasma bycoagulation assay 39 s 24-35 Comprehensive metabolic panel - 07/27/19 15:55 Serum or plasma sodium measurement (moles/volume) 132 mmol/L 135-145 Serum or plasma potassium measurement (moles/volume) 2.8 mmol/L 3.6-5.0 Serum or plasma chloride measurement (moles/volume) 90 mmol/L 98-107 Carbon dioxide 32 mmol/L 21-32 Serum or plasma anion gap determination (moles/volume) 10 mmol/L 5-14 Serum or plasma urea nitrogen measurement (mass/volume ) 9 mg/dL 7-18 Serum or plasma creatinine measurement (mass/volume) 0.62 mg/dL 0.60-1.30 Serum or plasma urea nitrogen/creatinine mass ratio 15 NRG Serum or plasma creatinine measurement w ith calculation of estimated glomerular filtration rate > NRG Serum or plasma glucose measurement (mass/volume) 99 mg/dL 70-105 Serum or plasma calcium measurement (mass/volume) 7.5 mg/dL 8.5-10.1 Serum or plasma total bilirubin measurement (mass/volu me) 1.3 mg/dL 0.1-1.0 Serum or plasma alkaline phosphatase charles surement (enzymatic activity/volume) 96 U/L 40-136 Serum or plasma aspartate aminotransfera se measurement (enzymatic activity/volume) 29 U/L 5-34 Serum or plasma alanine aminotransferase measurement (enzymatic activity/volume) 7 U/L 0-55 Serum or plasma protein measurement (mass/volume) 4.7 g/dL 6.4-8.2 Serum or plasma albumin measurement (mass/volume) 2.0 g/dL 3.2-4.5 CALCIUM CORRECTED 9.1 mg/dL 8.5-10.1 Manual absolute plasma cell count - 07/03 02/17 15:55 Blood monocytes/100 leukocytes 22 % NRG Manual blood segmented neutrophils/100 leukocytes 66 % NRG Blood band neutrophils/100 leukocytes 2 % NRG Manual blood lymphocytes/100 leukocytes 10 % NRG Manual eosinophils/100 leukocytes in nose 0 % NRG Manual blood basophils/100 leukocytes 0 % NRG Blood polychromasia detection by light microscopy SLIGHT NRG Blood anisocytosis detection by light microscopy M ODERATE NRG Blood macrocytes detection by light microscopy MOD ERATE NRG Blood hypochromia detection by light microscopy SL IGHT NRG Blood microcytes detection by light microscopy SLI GHT NRG Bacterial blood culture - 07/27/19 15:55 FREE TEXT EXTERNAL SEE COMMENT NRG QUANTITY OF GROWTH Isolated NRG Bacterial blood culture [id number] NRG Influenza virus A and B antigen detectio n - 07/27/19 16:02 FLU RESULT NEGATIVE FOR INFLUENZA A AND B ANTIGENS BY IA NRG Complete urinalysis with reflex to cultu re - 07/27/19 16:09 Urine color determination DARK YELLOW N RG Urine clarity determination CLEAR NR G Urine pH measurement by test strip 6.0 5-9 Specific gravity of urine by test strip 1.020 1.016-1.022 Urine protein assay by test strip, semi-quantitative 1+ NEGATIVE Urine glucose detection by automated test strip NE GATIVE NEGATIVE Erythrocytes detection in urine sediment by light micr oscopy 1+ NEGATIVE Urine ketones detection by automated test strip NE GATIVE NEGATIVE Urine nitrite detection by test strip NEGATIVE NEGATIVE Urine total bilirubin detection by test strip 1+ NEGATIVE Urine urobilinogen measurement by automated test strip (mass/volume) 4.0 mg/dL < = 1.0 Urine leukocyte esterase detection by dipstick NEG ATIVE NEGATIVE Automated urine sediment erythrocyte cou nt by microscopy (number/high power field) [HPF] NRG Automated urine sediment leukocyte count by microscopy (number/high power field) NONE NRG Bacteria detection in urine sediment by light microsco py FEW NRG Squamous epithelial cells detection in u rine sediment by light microscopy RARE NRG Crystals detection in urine sediment by light microsco py NONE NRG Casts detection in urine sediment by light microscopy NONE NRG Mucus detection in urine sediment by light microscopy SMALL NRG Complete urinalysis with reflex to culture CULTURE PENDING NRG Bacterial urine culture - 07/27/19 16:09 Bacterial urine culture NG NRG Bacterial blood culture - 07/27/19 16:22 Bacterial blood culture NG NRG RED CELLS LEUKO REDUCED AS1 - 07/27/19 1 8:20 RED CELLS LEUKO REDUCED AS1 T RANSFUSED 07/27/191954 NRG Blood type T Indirect antibody screen [facility] - 07/27/19 18:20 WRISTBAND NUMBER [id number] NRG ABO+Rh group BP NRG Blood group antibody screen NEGATIVE NR G Methicillin resistant Staphylococcus aur eus (MRSA) screening culture - 07/27/19 19:20 Methicillin resistant Staphylococcus aureus (MRSA) scr eening culture NEG NRG Whole blood hemoglobin and hematocrit [facility] - 07/28/19 01:38 Venous blood hemoglobin measurement (mass/volume) 9.1 g/dL 11.5-16.0 Blood hematocrit (volume fraction) 28 % 35-52 Complete blood count (CBC) with automate d white blood cell (WBC) differential - 07/28/19 03:08 Blood leukocytes automated count (number/volume) 3.9 10*3/uL 4.3-11.0 Blood erythrocytes automated count (number/volume) 3.21 10*6/uL 4.35-5.85 Venous blood hemoglobin measurement (mass/volume) 9.4 g/dL 11.5-16.0 Blood hematocrit (volume fraction) 30 % 35-52 Automated erythrocyte mean corpuscular volume 93 [ foz_us] 80-99 Automated erythrocyte mean corpuscular h emoglobin (mass per erythrocyte) 29 pg 25-34 Automated erythrocyte mean corpuscular h emoglobin concentration measurement (mass/volume) 32 g/dL 32-36 Automated erythrocyte distribution width ratio 19. 4 % 10.0- 14.5 Automated blood platelet count (count/volume) 60 1 0*3/uL 130-400 Automated blood platelet mean volume measurement 9.9 [foz_us] 7.4-10.4 Automated blood neutrophils/100 leukocytes 67 % 42-75 Automated blood lymphocytes/100 leukocytes 8 % 12-44 Blood monocytes/100 leukocytes 22 % 0-12 Automated blood eosinophils/100 leukocytes 1 % 0-10 Automated blood basophils/100 leukocytes 2 % 0-10 Blood neutrophils automated count (number/volume) 2.6 10*3 1.8-7.8 Blood lymphocytes automated count (number/volume) 0.3 10*3 1.0-4.0 Blood monocytes automated count (number/volume) 0. 9 10*3 0.0-1.0 Automated eosinophil count 0.0 10*3/uL 0 .0-0.3 Automated blood basophil count (count/volume) 0.1 10*3/uL 0.0-0.1 Whole blood basic metabolic panel - 07/03 03/19 03:08 Serum or plasma sodium measurement (moles/volume) 138 mmol/L 135-145 Serum or plasma potassium measurement (moles/volume) 3.6 mmol/L 3.6-5.0 Serum or plasma chloride measurement (moles/volume) 99 mmol/L 98-107 Carbon dioxide 29 mmol/L 21-32 Serum or plasma anion gap determination (moles/volume) 10 mmol/L 5-14 Serum or plasma urea nitrogen measurement (mass/volume ) 8 mg/dL 7-18 Serum or plasma creatinine measurement (mass/volume) 0.56 mg/dL 0.60-1.30 Serum or plasma urea nitrogen/creatinine mass ratio 14 NRG Serum or plasma creatinine measurement w ith calculation of estimated glomerular filtration rate > NRG Serum or plasma glucose measurement (mass/volume) 87 mg/dL 70-105 Serum or plasma calcium measurement (mass/volume) 7.2 mg/dL 8.5-10.1 Serum or plasma phosphate measurement (m ass/volume) - 07/28/19 03:08 Serum or plasma phosphate measurement (mass/volume) 3.2 mg/dL 2.3-4.7 Magnesium - 07/28/19 03:08 Magnesium 1.4 mg/dL 1.6-2.4 Serum or plasma lithium measurement (mol es/volume) - 07/28/19 03:08 BNP PT 154.3 pg/mL <100.0 PROCALCITONIN (PCT) - 07/28/19 03:08 PROCALCITONIN (PCT) 3.51 ng/mL <0.10 Complete blood count (CBC) with automate d white blood cell (WBC) differential - 07/29/19 04:55 Blood leukocytes automated count (number/volume) 4.7 10*3/uL 4.3-11.0 Blood erythrocytes automated count (number/volume) 3.03 10*6/uL 4.35-5.85 Venous blood hemoglobin measurement (mass/volume) 8.6 g/dL 11.5-16.0 Blood hematocrit (volume fraction) 27 % 35-52 Automated erythrocyte mean corpuscular volume 90 [ foz_us] 80-99 Automated erythrocyte mean corpuscular h emoglobin (mass per erythrocyte) 28 pg 25-34 Automated erythrocyte mean corpuscular h emoglobin concentration measurement (mass/volume) 32 g/dL 32-36 Automated erythrocyte distribution width ratio 19. 7 % 10.0- 14.5 Automated blood platelet count (count/volume) 74 1 0*3/uL 130-400 Automated blood platelet mean volume measurement 10.2 [foz_us] 7.4-10.4 Automated blood neutrophils/100 leukocytes 70 % 42-75 Automated blood lymphocytes/100 leukocytes 10 % 12-44 Blood monocytes/100 leukocytes 19 % 0-12 Automated blood eosinophils/100 leukocytes 0 % 0-10 Automated blood basophils/100 leukocytes 1 % 0-10 Blood neutrophils automated count (number/volume) 3.3 10*3 1.8-7.8 Blood lymphocytes automated count (number/volume) 0.5 10*3 1.0-4.0 Blood monocytes automated count (number/volume) 0. 9 10*3 0.0-1.0 Automated eosinophil count 0.0 10*3/uL 0 .0-0.3 Automated blood basophil count (count/volume) 0.0 10*3/uL 0.0-0.1 Whole blood basic metabolic panel - 07/03 04/19 04:55 Serum or plasma sodium measurement (moles/volume) 134 mmol/L 135-145 Serum or plasma potassium measurement (moles/volume) 3.4 mmol/L 3.6-5.0 Serum or plasma chloride measurement (moles/volume) 97 mmol/L 98-107 Carbon dioxide 28 mmol/L 21-32 Serum or plasma anion gap determination (moles/volume) 9 mmol/L 5-14 Serum or plasma urea nitrogen measurement (mass/volume ) 12 mg/dL 7-18 Serum or plasma creatinine measurement (mass/volume) 0.65 mg/dL 0.60-1.30 Serum or plasma urea nitrogen/creatinine mass ratio 18 NRG Serum or plasma creatinine measurement w ith calculation of estimated glomerular filtration rate > NRG Serum or plasma glucose measurement (mass/volume) 84 mg/dL 70-105 Serum or plasma calcium measurement (mass/volume) 7.2 mg/dL 8.5-10.1 Serum or plasma phosphate measurement (m ass/volume) - 07/29/19 04:55 Serum or plasma phosphate measurement (mass/volume) 2.1 mg/dL 2.3-4.7 Magnesium - 07/29/19 04:55 Magnesium 1.5 mg/dL 1.6-2.4 Serum ragweed IgE antibody assay - 07/29 04:55 Serum ragweed IgE antibody assay 1650 U/L 125-220 PROCALCITONIN (PCT) - 07/29/19 04:55 PROCALCITONIN (PCT) 8.11 ng/mL <0.10 Serum or plasma creatine kinase measurem ent (enzymatic activity/volume) - 07/29/19 04:55 Serum or plasma creatine kinase measurem ent (enzymatic activity/volume) 20 U/L 29-168 Serum or plasma C reactive protein measu rement (mass/volume) - 07/29/19 04:55 Serum or plasma C reactive protein measurement (mass/v olume) 24.05 mg/dL 0.00-0.50 Erythrocyte sedimentation rate by sasha gren method - 07/29/19 16:40 Erythrocyte sedimentation rate by westergren method 72 mm 0- 30 Bacterial blood culture - 07/29/19 16:40 Bacterial blood culture NG [facility] ANTI-NUCLEAR AB (SASHA) ANALYZER - 9 16:40 Screening antinuclear antibody (SASHA) assay by enzyme i mmunoassay <1:80 <1:80 RA FACTOR (RHEUMATOID FACTOR) - 07/29/19 16:40 Serum or plasma rheumatoid factor measurement (units/v olume) < [iU]/mL 0-29 Interpretation of rheumatoid factor assay Negative Negative Bacterial blood culture - 07/29/19 16:45 Bacterial blood culture NG NR Complete blood count (CBC) with automate d white blood cell (WBC) differential - 07/30/19 04:50 Blood leukocytes automated count (number/volume) 4.7 10*3/uL 4.3-11.0 Blood erythrocytes automated count (number/volume) 2.90 10*6/uL 4.35-5.85 Venous blood hemoglobin measurement (mass/volume) 8.3 g/dL 11.5-16.0 Blood hematocrit (volume fraction) 27 % 35-52 Automated erythrocyte mean corpuscular volume 92 [ foz_us] 80-99 Automated erythrocyte mean corpuscular h emoglobin (mass per erythrocyte) 29 pg 25-34 Automated erythrocyte mean corpuscular h emoglobin concentration measurement (mass/volume) 31 g/dL 32-36 Automated erythrocyte distribution width ratio 19. 9 % 10.0- 14.5 Automated blood platelet count (count/volume) 56 1 0*3/uL 130-400 Automated blood platelet mean volume measurement 10.7 [foz_us] 7.4-10.4 Automated blood neutrophils/100 leukocytes 64 % 42-75 Automated blood lymphocytes/100 leukocytes 14 % 12-44 Blood monocytes/100 leukocytes 20 % 0-12 Automated blood eosinophils/100 leukocytes 1 % 0-10 Automated blood basophils/100 leukocytes 1 % 0-10 Blood neutrophils automated count (number/volume) 3.0 10*3 1.8-7.8 Blood lymphocytes automated count (number/volume) 0.6 10*3 1.0-4.0 Blood monocytes automated count (number/volume) 1. 0 10*3 0.0-1.0 Automated eosinophil count 0.0 10*3/uL 0 .0-0.3 Automated blood basophil count (count/volume) 0.1 10*3/uL 0.0-0.1 Whole blood basic metabolic panel - 07/03 05/20 04:50 Serum or plasma sodium measurement (moles/volume) 133 mmol/L 135-145 Serum or plasma potassium measurement (moles/volume) 4.5 mmol/L 3.6-5.0 Serum or plasma chloride measurement (moles/volume) 98 mmol/L 98-107 Carbon dioxide 26 mmol/L 21-32 Serum or plasma anion gap determination (moles/volume) 9 mmol/L 5-14 Serum or plasma urea nitrogen measurement (mass/volume ) 12 mg/dL 7-18 Serum or plasma creatinine measurement (mass/volume) 0.56 mg/dL 0.60-1.30 Serum or plasma urea nitrogen/creatinine mass ratio 21 NRG Serum or plasma creatinine measurement w ith calculation of estimated glomerular filtration rate > NRG Serum or plasma glucose measurement (mass/volume) 80 mg/dL 70-105 Serum or plasma calcium measurement (mass/volume) 7.2 mg/dL 8.5-10.1 Serum or plasma phosphate measurement (m ass/volume) - 07/30/19 04:50 Serum or plasma phosphate measurement (mass/volume) 3.2 mg/dL 2.3-4.7 Magnesium - 07/30/19 04:50 Magnesium 1.9 mg/dL 1.6-2.4 Serum or plasma lithium measurement (mol es/volume) - 07/31/19 04:22 BNP PT 190.6 pg/mL <100.0 Complete blood count (CBC) with automate d white blood cell (WBC) differential - 07/31/19 04:42 Blood leukocytes automated count (number/volume) 5.9 10*3/uL 4.3-11.0 Blood erythrocytes automated count (number/volume) 3.07 10*6/uL 4.35-5.85 Venous blood hemoglobin measurement (mass/volume) 8.6 g/dL 11.5-16.0 Blood hematocrit (volume fraction) 28 % 35-52 Automated erythrocyte mean corpuscular volume 92 [ foz_us] 80-99 Automated erythrocyte mean corpuscular h emoglobin (mass per erythrocyte) 28 pg 25-34 Automated erythrocyte mean corpuscular h emoglobin concentration measurement (mass/volume) 31 g/dL 32-36 Automated erythrocyte distribution width ratio 20. 2 % 10.0- 14.5 Automated blood platelet count (count/volume) 74 1 0*3/uL 130-400 Automated blood platelet mean volume measurement 11.6 [foz_us] 7.4-10.4 Automated blood neutrophils/100 leukocytes 65 % 42-75 Automated blood lymphocytes/100 leukocytes 12 % 12-44 Blood monocytes/100 leukocytes 22 % 0-12 Automated blood eosinophils/100 leukocytes 0 % 0-10 Automated blood basophils/100 leukocytes 1 % 0-10 Blood neutrophils automated count (number/volume) 3.8 10*3 1.8-7.8 Blood lymphocytes automated count (number/volume) 0.7 10*3 1.0-4.0 Blood monocytes automated count (number/volume) 1. 3 10*3 0.0-1.0 Automated eosinophil count 0.0 10*3/uL 0 .0-0.3 Automated blood basophil count (count/volume) 0.0 10*3/uL 0.0-0.1 Whole blood basic metabolic panel - 07/04 04:42 Serum or plasma sodium measurement (moles/volume) 132 mmol/L 135-145 Serum or plasma potassium measurement (moles/volume) 4.6 mmol/L 3.6-5.0 Serum or plasma chloride measurement (moles/volume) 97 mmol/L 98-107 Carbon dioxide 26 mmol/L 21-32 Serum or plasma anion gap determination (moles/volume) 9 mmol/L 5-14 Serum or plasma urea nitrogen measurement (mass/volume ) 15 mg/dL 7-18 Serum or plasma creatinine measurement (mass/volume) 0.66 mg/dL 0.60-1.30 Serum or plasma urea nitrogen/creatinine mass ratio 23 NRG Serum or plasma creatinine measurement w ith calculation of estimated glomerular filtration rate > NRG Serum or plasma glucose measurement (mass/volume) 78 mg/dL 70-105 Serum or plasma calcium measurement (mass/volume) 7.6 mg/dL 8.5-10.1 Serum or plasma phosphate measurement (m ass/volume) - 07/31/19 04:42 Serum or plasma phosphate measurement (mass/volume) 3.4 mg/dL 2.3-4.7 Magnesium - 07/31/19 04:42 Magnesium 1.7 mg/dL 1.6-2.4 Capillary blood glucose measurement by g lucometer (mass/volume) - 07/31/19 09:41 Capillary blood glucose measurement by glucometer (mas s/volume) 161 mg/dL 70-110 Capillary blood glucose measurement by g lucometer (mass/volume) - 07/31/19 11:33 Capillary blood glucose measurement by glucometer (mas s/volume) 123 mg/dL 70-110 Blood lactic acid measurement (moles/vol ume) - 07/31/19 12:16 Blood lactic acid measurement (moles/volume) 2.70 mmol/L 0.50-2.00 Serum or plasma lactate measurement (mol es/volume) - 07/31/19 14:21 Serum or plasma lactate measurement (moles/volume) 2.20 mmol/L 0.50-2.00 Capillary blood glucose measurement by g lucometer (mass/volume) - 07/31/19 15:49 Capillary blood glucose measurement by glucometer (mas s/volume) 119 mg/dL 70-110 Capillary blood glucose measurement by g lucometer (mass/volume) - 07/31/19 22:16 Capillary blood glucose measurement by glucometer (mas s/volume) 107 mg/dL 70-110 Capillary blood glucose measurement by g lucometer (mass/volume) - 08/01/19 05:35 Capillary blood glucose measurement by glucometer (mas s/volume) 78 mg/dL 70-110 Complete blood count (CBC) with automate d white blood cell (WBC) differential - 08/01/19 07:27 Blood leukocytes automated count (number/volume) 5.5 10*3/uL 4.3-11.0 Blood erythrocytes automated count (number/volume) 2.69 10*6/uL 4.35-5.85 Venous blood hemoglobin measurement (mass/volume) 7.7 g/dL 11.5-16.0 Blood hematocrit (volume fraction) 25 % 35-52 Automated erythrocyte mean corpuscular volume 91 [ foz_us] 80-99 Automated erythrocyte mean corpuscular h emoglobin (mass per erythrocyte) 29 pg 25-34 Automated erythrocyte mean corpuscular h emoglobin concentration measurement (mass/volume) 31 g/dL 32-36 Automated erythrocyte distribution width ratio 20. 0 % 10.0- 14.5 Automated blood platelet count (count/volume) 79 1 0*3/uL 130-400 Automated blood platelet mean volume measurement 11.3 [foz_us] 7.4-10.4 Automated blood neutrophils/100 leukocytes 63 % 42-75 Automated blood lymphocytes/100 leukocytes 11 % 12-44 Blood monocytes/100 leukocytes 26 % 0-12 Automated blood eosinophils/100 leukocytes 0 % 0-10 Automated blood basophils/100 leukocytes 1 % 0-10 Blood neutrophils automated count (number/volume) 3.4 10*3 1.8-7.8 Blood lymphocytes automated count (number/volume) 0.6 10*3 1.0-4.0 Blood monocytes automated count (number/volume) 1. 4 10*3 0.0-1.0 Automated eosinophil count 0.0 10*3/uL 0 .0-0.3 Automated blood basophil count (count/volume) 0.0 10*3/uL 0.0-0.1 Blood lactic acid measurement (moles/vol ume) - 08/01/19 07:27 Blood lactic acid measurement (moles/volume) 1.73 mmol/L 0.50-2.00 Whole blood basic metabolic panel - 09/19 07:27 Serum or plasma sodium measurement (moles/volume) 132 mmol/L 135-145 Serum or plasma potassium measurement (moles/volume) 4.4 mmol/L 3.6-5.0 Serum or plasma chloride measurement (moles/volume) 95 mmol/L 98-107 Carbon dioxide 26 mmol/L 21-32 Serum or plasma anion gap determination (moles/volume) 11 mmol/L 5-14 Serum or plasma urea nitrogen measurement (mass/volume ) 12 mg/dL 7-18 Serum or plasma creatinine measurement (mass/volume) 0.62 mg/dL 0.60-1.30 Serum or plasma urea nitrogen/creatinine mass ratio 19 NRG Serum or plasma creatinine measurement w ith calculation of estimated glomerular filtration rate > NRG Serum or plasma glucose measurement (mass/volume) 97 mg/dL 70-105 Serum or plasma calcium measurement (mass/volume) 7.4 mg/dL 8.5-10.1 Serum or plasma phosphate measurement (m ass/volume) - 08/01/19 07:27 Serum or plasma phosphate measurement (mass/volume) 3.0 mg/dL 2.3-4.7 Magnesium - 08/01/19 07:27 Magnesium 1.5 mg/dL 1.6-2.4 Capillary blood glucose measurement by g lucometer (mass/volume) - 08/01/19 11:28 Capillary blood glucose measurement by glucometer (mas s/volume) 117 mg/dL 70-110 RED CELLS LEUKO REDUCED AS1 - 08/01/19 1 2:03 RED CELLS LEUKO REDUCED AS1 T RANSFUSED 08/01/19 1421 NRG Blood type T Indirect antibody screen [facility] - 08/01/19 12:03 WRISTBAND NUMBER [id number] NRG ABO+Rh group BP NRG Blood group antibody screen NEGATIVE NR G RED CELLS LEUKO REDUCED AS1 - 08/01/19 1 2:03 RED CELLS LEUKO REDUCED AS1 T RANSFUSED 08/02/19 2214 NRG Blood type T Indirect antibody screen [facility] - 08/01/19 12:03 WRISTBAND NUMBER [id number] NRG ABO+Rh group BP NRG Blood group antibody screen NEGATIVE NR G Capillary blood glucose measurement by g lucometer (mass/volume) - 08/01/19 16:47 Capillary blood glucose measurement by glucometer (mas s/volume) 84 mg/dL 70-110 Capillary blood glucose measurement by g lucometer (mass/volume) - 08/01/19 20:57 Capillary blood glucose measurement by glucometer (mas s/volume) 100 mg/dL 70-110 Complete blood count (CBC) with automate d white blood cell (WBC) differential - 08/02/19 03:45 Blood leukocytes automated count (number/volume) 5.2 10*3/uL 4.3-11.0 Blood erythrocytes automated count (number/volume) 2.55 10*6/uL 4.35-5.85 Venous blood hemoglobin measurement (mass/volume) 7.3 g/dL 11.5-16.0 Blood hematocrit (volume fraction) 23 % 35-52 Automated erythrocyte mean corpuscular volume 89 [ foz_us] 80-99 Automated erythrocyte mean corpuscular h emoglobin (mass per erythrocyte) 29 pg 25-34 Automated erythrocyte mean corpuscular h emoglobin concentration measurement (mass/volume) 32 g/dL 32-36 Automated erythrocyte distribution width ratio 19. 8 % 10.0- 14.5 Automated blood platelet count (count/volume) 73 1 0*3/uL 130-400 Automated blood platelet mean volume measurement 10.8 [foz_us] 7.4-10.4 Automated blood neutrophils/100 leukocytes 63 % 42-75 Automated blood lymphocytes/100 leukocytes 12 % 12-44 Blood monocytes/100 leukocytes 24 % 0-12 Automated blood eosinophils/100 leukocytes 1 % 0-10 Automated blood basophils/100 leukocytes 1 % 0-10 Blood neutrophils automated count (number/volume) 3.3 10*3 1.8-7.8 Blood lymphocytes automated count (number/volume) 0.6 10*3 1.0-4.0 Blood monocytes automated count (number/volume) 1. 3 10*3 0.0-1.0 Automated eosinophil count 0.0 10*3/uL 0 .0-0.3 Automated blood basophil count (count/volume) 0.0 10*3/uL 0.0-0.1 Whole blood basic metabolic panel - 10/20 03:45 Serum or plasma sodium measurement (moles/volume) 129 mmol/L 135-145 Serum or plasma potassium measurement (moles/volume) 4.7 mmol/L 3.6-5.0 Serum or plasma chloride measurement (moles/volume) 97 mmol/L 98-107 Carbon dioxide 25 mmol/L 21-32 Serum or plasma anion gap determination (moles/volume) 7 mmol/L 5-14 Serum or plasma urea nitrogen measurement (mass/volume ) 13 mg/dL 7-18 Serum or plasma creatinine measurement (mass/volume) 0.60 mg/dL 0.60-1.30 Serum or plasma urea nitrogen/creatinine mass ratio 22 NRG Serum or plasma creatinine measurement w ith calculation of estimated glomerular filtration rate > NRG Serum or plasma glucose measurement (mass/volume) 116 mg/dL 70-105 Serum or plasma calcium measurement (mass/volume) 7.3 mg/dL 8.5-10.1 Serum or plasma phosphate measurement (m ass/volume) - 08/02/19 03:45 Serum or plasma phosphate measurement (mass/volume) 3.1 mg/dL 2.3-4.7 Magnesium - 08/02/19 03:45 Magnesium 1.9 mg/dL 1.6-2.4 Liver function panel (serum or plasma al k phos, alb, total and direct bili, total protein, ALT, AST) - 08/02/19 03:45 Serum or plasma total bilirubin measurement (mass/volu me) 2.1 mg/dL 0.1-1.0 Serum or plasma alkaline phosphatase charles surement (enzymatic activity/volume) 116 U/L 40-136 Serum or plasma aspartate aminotransfera se measurement (enzymatic activity/volume) 48 U/L 5-34 Serum or plasma alanine aminotransferase measurement (enzymatic activity/volume) 9 U/L 0-55 Serum or plasma protein measurement (mass/volume) 4.5 g/dL 6.4-8.2 Serum or plasma albumin measurement (mass/volume) 1.7 g/dL 3.2-4.5 Bilirubin direct 1.0 mg/dL 0.0-0.3 Serum or plasma indirect bilirubin measurement (mass/v olume) 1.1 mg/dL NRG Serum or plasma amylase measurement (enz ymatic activity/volume) - 08/02/19 03:45 Serum or plasma amylase measurement (enzymatic activit y/volume) 21 U/L 25-125 Lipase - 08/02/19 03:45 Lipase 24 U/L 8-78 Capillary blood glucose measurement by g lucometer (mass/volume) - 08/02/19 11:28 Capillary blood glucose measurement by glucometer (mas s/volume) 92 mg/dL 70-110 Capillary blood glucose measurement by g lucometer (mass/volume) - 08/02/19 17:36 Capillary blood glucose measurement by glucometer (mas s/volume) 92 mg/dL 70-110 RESPIRATORY VIRUS PANEL - 08/02/19 18:15 Serum ragweed IgE antibody assay Not Detected Not Detected Serum or plasma aripiprazole measurement (mass/volume) Not Detected Not Detected PARAINFLU 3 PCR Not Detected Not Detect ed METAPNEUMO PCR Not Detected Not Detecte d Adenovirus detection, CSF, PCR Not Detected Not Detected INFLUENZA A PCR Not Detected Not Detect ed INFLUENZA B PCR Not Detected Not Detect ed Capillary blood glucose measurement by g lucometer (mass/volume) - 08/02/19 23:33 Capillary blood glucose measurement by glucometer (mas s/volume) 99 mg/dL 70-110 Complete blood count (CBC) with automate d white blood cell (WBC) differential - 08/03/19 04:06 Blood leukocytes automated count (number/volume) 5.8 10*3/uL 4.3-11.0 Blood erythrocytes automated count (number/volume) 2.64 10*6/uL 4.35-5.85 Venous blood hemoglobin measurement (mass/volume) 7.7 g/dL 11.5-16.0 Blood hematocrit (volume fraction) 24 % 35-52 Automated erythrocyte mean corpuscular volume 91 [ foz_us] 80-99 Automated erythrocyte mean corpuscular h emoglobin (mass per erythrocyte) 29 pg 25-34 Automated erythrocyte mean corpuscular h emoglobin concentration measurement (mass/volume) 32 g/dL 32-36 Automated erythrocyte distribution width ratio 18. 3 % 10.0- 14.5 Automated blood platelet count (count/volume) 66 1 0*3/uL 130-400 Automated blood platelet mean volume measurement 10.4 [foz_us] 7.4-10.4 Automated blood neutrophils/100 leukocytes 71 % 42-75 Automated blood lymphocytes/100 leukocytes 12 % 12-44 Blood monocytes/100 leukocytes 16 % 0-12 Automated blood eosinophils/100 leukocytes 1 % 0-10 Automated blood basophils/100 leukocytes 1 % 0-10 Blood neutrophils automated count (number/volume) 4.1 10*3 1.8-7.8 Blood lymphocytes automated count (number/volume) 0.7 10*3 1.0-4.0 Blood monocytes automated count (number/volume) 0. 9 10*3 0.0-1.0 Automated eosinophil count 0.0 10*3/uL 0 .0-0.3 Automated blood basophil count (count/volume) 0.0 10*3/uL 0.0-0.1 Comprehensive metabolic panel - 08/03/19 04:06 Serum or plasma sodium measurement (moles/volume) 131 mmol/L 135-145 Serum or plasma potassium measurement (moles/volume) 4.5 mmol/L 3.6-5.0 Serum or plasma chloride measurement (moles/volume) 98 mmol/L 98-107 Carbon dioxide 25 mmol/L 21-32 Serum or plasma anion gap determination (moles/volume) 8 mmol/L 5-14 Serum or plasma urea nitrogen measurement (mass/volume ) 12 mg/dL 7-18 Serum or plasma creatinine measurement (mass/volume) 0.56 mg/dL 0.60-1.30 Serum or plasma urea nitrogen/creatinine mass ratio 21 NRG Serum or plasma creatinine measurement w ith calculation of estimated glomerular filtration rate > NRG Serum or plasma glucose measurement (mass/volume) 86 mg/dL 70-105 Serum or plasma calcium measurement (mass/volume) 7.1 mg/dL 8.5-10.1 Serum or plasma total bilirubin measurement (mass/volu me) 2.3 mg/dL 0.1-1.0 Serum or plasma alkaline phosphatase charles surement (enzymatic activity/volume) 113 U/L 40-136 Serum or plasma aspartate aminotransfera se measurement (enzymatic activity/volume) 54 U/L 5-34 Serum or plasma alanine aminotransferase measurement (enzymatic activity/volume) 10 U/L 0-55 Serum or plasma protein measurement (mass/volume) 4.2 g/dL 6.4-8.2 Serum or plasma albumin measurement (mass/volume) 1.6 g/dL 3.2-4.5 CALCIUM CORRECTED 9.0 mg/dL 8.5-10.1 Serum or plasma phosphate measurement (m ass/volume) - 08/03/19 04:06 Serum or plasma phosphate measurement (mass/volume) 3.8 mg/dL 2.3-4.7 Magnesium - 08/03/19 04:06 Magnesium 1.7 mg/dL 1.6-2.4 Body fluid cell count - 08/03/19 06:32 Specimen source identification of body fluid PLEUR AL NRG Evaluation of color of body fluid YELLOW NRG Determination of appearance of body fluid SLT CLDY NRG Body fluid leukocytes count (number/volume) 60 /uL NRG Body fluid erythrocytes count (number/volume) 185 /uL NRG Manual body fluid polymorphonuclear cells/100 leukocyt es 17 % NRG Manual body fluid mononuclear cells/100 leukocytes 3 % NRG Manual body fluid lymphocytes/100 leukocytes 73 % NRG Manual body fluid other cell count (number) 7 % NRG * PH of body fluid - 08/03/19 06:32 * PH of body fluid 7.0 NRG Glucose body fluid - 08/03/19 06:32 Glucose body fluid 97 mg/dL NRG Body fluid total protein measurement - 1 10/04/18 06:32 Body fluid total protein measurement 0.9 g/dL NRG Body fluid albumin measurement (mass/vol ume) - 08/03/19 06:32 Body fluid albumin measurement (mass/volume) 0.6 g /dL NRG Body fluid/serum or plasma lactate dehyd rogenase (LDH) ratio - 08/03/19 06:32 Body fluid/serum or plasma lactate dehydrogenase (LDH) ratio 289 U/L NRG Amylase body fluid - 08/03/19 06:32 Amylase body fluid 8 U/L NRG Body fluid triglyceride measurement (mas s/volume) - 08/03/19 06:32 Body fluid triglyceride measurement (mass/volume) 13 mg/dL NRG Gram stain microscopy - 08/03/19 06:32 Gram stain microscopy No bacteria seen NRG Bacterial body fluid culture - 08/03/19 06:32 Bacterial body fluid culture NG N RG Complete urinalysis with reflex to cultu re - 08/03/19 06:58 Urine color determination RED NRG Urine clarity determination SL CLOUDY N RG Urine pH measurement by test strip 7.0 5-9 Specific gravity of urine by test strip 1.015 1.016-1.022 Urine protein assay by test strip, semi-quantitative 3+ NEGATIVE Urine glucose detection by automated test strip TR RAE NEGATIVE Erythrocytes detection in urine sediment by light micr oscopy 3+ NEGATIVE Urine ketones detection by automated test strip 1+ NEGATIVE Urine nitrite detection by test strip POSITIVE NEGATIVE Urine total bilirubin detection by test strip NEGA TIVE NEGATIVE Urine urobilinogen measurement by automated test strip (mass/volume) >= mg/dL < = 1.0 Urine leukocyte esterase detection by dipstick 2+ NEGATIVE Automated urine sediment erythrocyte cou nt by microscopy (number/high power field) [HPF] NRG Automated urine sediment leukocyte count by microscopy (number/high power field) [HPF] NRG Bacteria detection in urine sediment by light microsco py MODERATE NRG Squamous epithelial cells detection in u rine sediment by light microscopy 2-5 NRG Crystals detection in urine sediment by light microsco py PRESENT NRG Casts detection in urine sediment by light microscopy PRESENT NRG Mucus detection in urine sediment by light microscopy NEGATIVE NRG Complete urinalysis with reflex to culture YES NRG Yeast detection in urine sediment by light microscopy MODERATE NRG Amorphous sediment detection in urine sediment by ligh t microscopy FEW HAJA PHOSPHATE NRG Calcium oxalate crystals detection in ur ine sediment by light microscopy FEW NRG Granular casts detection in urine sediment by light mi croscopy 2-5 NRG Bacterial urine culture - 08/03/19 06:58 Bacterial urine culture [id number] NRG COLONY COUNT 80,000 CFU/ML NRG Capillary blood glucose measurement by g lucometer (mass/volume) - 08/03/19 11:04 Capillary blood glucose measurement by glucometer (mas s/volume) 90 mg/dL 70-110 Capillary blood glucose measurement by g lucometer (mass/volume) - 08/03/19 15:54 Capillary blood glucose measurement by glucometer (mas s/volume) 136 mg/dL 70-110 Capillary blood glucose measurement by g lucometer (mass/volume) - 08/03/19 20:13 Capillary blood glucose measurement by glucometer (mas s/volume) 109 mg/dL 70-110 Complete blood count (CBC) with automate d white blood cell (WBC) differential - 08/04/19 03:30 Blood leukocytes automated count (number/volume) 4.9 10*3/uL 4.3-11.0 Blood erythrocytes automated count (number/volume) 2.52 10*6/uL 4.35-5.85 Venous blood hemoglobin measurement (mass/volume) 7.4 g/dL 11.5-16.0 Blood hematocrit (volume fraction) 23 % 35-52 Automated erythrocyte mean corpuscular volume 91 [ foz_us] 80-99 Automated erythrocyte mean corpuscular h emoglobin (mass per erythrocyte) 29 pg 25-34 Automated erythrocyte mean corpuscular h emoglobin concentration measurement (mass/volume) 32 g/dL 32-36 Automated erythrocyte distribution width ratio 18. 9 % 10.0- 14.5 Automated blood platelet count (count/volume) 70 1 0*3/uL 130-400 Automated blood platelet mean volume measurement 10.9 [foz_us] 7.4-10.4 Automated blood neutrophils/100 leukocytes 73 % 42-75 Automated blood lymphocytes/100 leukocytes 10 % 12-44 Blood monocytes/100 leukocytes 16 % 0-12 Automated blood eosinophils/100 leukocytes 0 % 0-10 Automated blood basophils/100 leukocytes 0 % 0-10 Blood neutrophils automated count (number/volume) 3.6 10*3 1.8-7.8 Blood lymphocytes automated count (number/volume) 0.5 10*3 1.0-4.0 Blood monocytes automated count (number/volume) 0. 8 10*3 0.0-1.0 Automated eosinophil count 0.0 10*3/uL 0 .0-0.3 Automated blood basophil count (count/volume) 0.0 10*3/uL 0.0-0.1 Whole blood basic metabolic panel - 12/18 03:30 Serum or plasma sodium measurement (moles/volume) 130 mmol/L 135-145 Serum or plasma potassium measurement (moles/volume) 4.4 mmol/L 3.6-5.0 Serum or plasma chloride measurement (moles/volume) 98 mmol/L 98-107 Carbon dioxide 22 mmol/L 21-32 Serum or plasma anion gap determination (moles/volume) 10 mmol/L 5-14 Serum or plasma urea nitrogen measurement (mass/volume ) 14 mg/dL 7-18 Serum or plasma creatinine measurement (mass/volume) 0.57 mg/dL 0.60-1.30 Serum or plasma urea nitrogen/creatinine mass ratio 25 NRG Serum or plasma creatinine measurement w ith calculation of estimated glomerular filtration rate > NRG Serum or plasma glucose measurement (mass/volume) 100 mg/dL 70-105 Serum or plasma calcium measurement (mass/volume) 7.2 mg/dL 8.5-10.1 Serum or plasma phosphate measurement (m ass/volume) - 08/04/19 03:30 Serum or plasma phosphate measurement (mass/volume) 3.3 mg/dL 2.3-4.7 Magnesium - 08/04/19 03:30 Magnesium 1.5 mg/dL 1.6-2.4 Serum or plasma conjugated bilirubin+ind irect measurement (mass/volume) - 08/04/19 03:30 Serum or plasma total bilirubin measurement (mass/volu me) 1.9 mg/dL 0.1-1.0 Bilirubin direct 1.0 mg/dL 0.0-0.3 Serum or plasma indirect bilirubin measurement (mass/v olume) 0.9 mg/dL NRG Capillary blood glucose measurement by g lucometer (mass/volume) - 08/04/19 05:16 Capillary blood glucose measurement by glucometer (mas s/volume) 81 mg/dL 70-110 Capillary blood glucose measurement by g lucometer (mass/volume) - 08/04/19 12:12 Capillary blood glucose measurement by glucometer (mas s/volume) 53 mg/dL 70-110 Capillary blood glucose measurement by g lucometer (mass/volume) - 08/04/19 14:01 Capillary blood glucose measurement by glucometer (mas s/volume) 83 mg/dL 70-110 Arterial blood gas measurement - 9 14:05 Blood pCO2 31 mm[Hg] 35-45 Blood pO2 161 mm[Hg] 79-93 Arterial blood bicarbonate measurement (moles/volume) 23 mmol/L 23-27 Arterial blood base excess by calculation 0.2 mmol /L -2.5-2.5 Arterial blood oxygen saturation measurement 100 % 94-100 * Inhaled oxygen flow rate 50% NRG Arterial blood pH measurement with patient temperature correction 7.49 7.37-7.43 Arterial blood carbon dioxide, total measurement (mole s/volume) 24.1 mmol/L 21.0-31.0 Body site LEFT RADIAL NRG Assessment of wrist artery patency prior to arterial p uncture POSITIVE NRG Setting of ventilation mode NO NR G Measurement of body temperature 37.3 NRG Capillary blood glucose measurement by g lucometer (mass/volume) - 08/04/19 16:02 Capillary blood glucose measurement by glucometer (mas s/volume) 88 mg/dL 70-110 RED CELLS LEUKO REDUCED AS1 - 08/04/19 1 7:00 RED CELLS LEUKO REDUCED AS1 N OT AVAILABLE NRG Blood type T Indirect antibody screen pa erlin - 08/04/19 17:00 WRISTBAND NUMBER [id number] NRG ABO+Rh group BP NRG Blood group antibody screen NEGATIVE NR G Capillary blood glucose measurement by g lucometer (mass/volume) - 08/04/19 20:02 Capillary blood glucose measurement by glucometer (mas s/volume) 117 mg/dL 70-110 Complete blood count (CBC) with automate d white blood cell (WBC) differential - 08/05/19 04:50 Blood leukocytes automated count (number/volume) 5.1 10*3/uL 4.3-11.0 Blood erythrocytes automated count (number/volume) 2.52 10*6/uL 4.35-5.85 Venous blood hemoglobin measurement (mass/volume) 7.4 g/dL 11.5-16.0 Blood hematocrit (volume fraction) 23 % 35-52 Automated erythrocyte mean corpuscular volume 92 [ foz_us] 80-99 Automated erythrocyte mean corpuscular h emoglobin (mass per erythrocyte) 29 pg 25-34 Automated erythrocyte mean corpuscular h emoglobin concentration measurement (mass/volume) 32 g/dL 32-36 Automated erythrocyte distribution width ratio 18. 7 % 10.0- 14.5 Automated blood platelet count (count/volume) 57 1 0*3/uL 130-400 Automated blood platelet mean volume measurement 11.4 [foz_us] 7.4-10.4 Automated blood neutrophils/100 leukocytes 71 % 42-75 Automated blood lymphocytes/100 leukocytes 9 % 12-44 Blood monocytes/100 leukocytes 19 % 0-12 Automated blood eosinophils/100 leukocytes 0 % 0-10 Automated blood basophils/100 leukocytes 1 % 0-10 Blood neutrophils automated count (number/volume) 3.6 10*3 1.8-7.8 Blood lymphocytes automated count (number/volume) 0.5 10*3 1.0-4.0 Blood monocytes automated count (number/volume) 1. 0 10*3 0.0-1.0 Automated eosinophil count 0.0 10*3/uL 0 .0-0.3 Automated blood basophil count (count/volume) 0.0 10*3/uL 0.0-0.1 Manual absolute plasma cell count - 12/0 5/19 04:50 Blood monocytes/100 leukocytes 12 % NRG Manual blood segmented neutrophils/100 leukocytes 64 % NRG Blood band neutrophils/100 leukocytes 11 % NRG Manual blood lymphocytes/100 leukocytes 6 % NRG Manual eosinophils/100 leukocytes in nose 2 % NRG Manual blood basophils/100 leukocytes 0 % NRG Blood lymphocytes variant/100 leukocytes 4 % NRG Blood polychromasia detection by light microscopy SLIGHT NRG Blood anisocytosis detection by light microscopy M ODERATE NRG Blood macrocytes detection by light microscopy [facility] NR Blood toxic granules detection by light microscopy 2+ NRG Manual blood metamyelocytes/100 leukocytes 1 % NRG Blood microcytes detection by light microscopy I [facility] NRG Whole blood basic metabolic panel - 01/17 04:50 Serum or plasma sodium measurement (moles/volume) 128 mmol/L 135-145 Serum or plasma potassium measurement (moles/volume) 3.9 mmol/L 3.6-5.0 Serum or plasma chloride measurement (moles/volume) 96 mmol/L 98-107 Carbon dioxide 24 mmol/L 21-32 Serum or plasma anion gap determination (moles/volume) 8 mmol/L 5-14 Serum or plasma urea nitrogen measurement (mass/volume ) 14 mg/dL 7-18 Serum or plasma creatinine measurement (mass/volume) 0.59 mg/dL 0.60-1.30 Serum or plasma urea nitrogen/creatinine mass ratio 24 NRG Serum or plasma creatinine measurement w ith calculation of estimated glomerular filtration rate > NRG Serum or plasma glucose measurement (mass/volume) 93 mg/dL 70-105 Serum or plasma calcium measurement (mass/volume) 7.0 mg/dL 8.5-10.1 Serum or plasma phosphate measurement (m ass/volume) - 08/05/19 04:50 Serum or plasma phosphate measurement (mass/volume) 4.1 mg/dL 2.3-4.7 Magnesium - 08/05/19 04:50 Magnesium 1.6 mg/dL 1.6-2.4 Capillary blood glucose measurement by g lucometer (mass/volume) - 08/05/19 10:28 Capillary blood glucose measurement by glucometer (mas s/volume) 94 mg/dL 70-110 Capillary blood glucose measurement by g lucometer (mass/volume) - 08/05/19 15:59 Capillary blood glucose measurement by glucometer (mas s/volume) 113 mg/dL 70-110 Capillary blood glucose measurement by g lucometer (mass/volume) - 08/05/19 20:00 Capillary blood glucose measurement by glucometer (mas s/volume) 130 mg/dL 70-110 Complete blood count (CBC) with automate d white blood cell (WBC) differential - 08/06/19 05:00 Blood leukocytes automated count (number/volume) 5.6 10*3/uL 4.3-11.0 Blood erythrocytes automated count (number/volume) 2.74 10*6/uL 4.35-5.85 Venous blood hemoglobin measurement (mass/volume) 8.1 g/dL 11.5-16.0 Blood hematocrit (volume fraction) 25 % 35-52 Automated erythrocyte mean corpuscular volume 92 [ foz_us] 80-99 Automated erythrocyte mean corpuscular h emoglobin (mass per erythrocyte) 30 pg 25-34 Automated erythrocyte mean corpuscular h emoglobin concentration measurement (mass/volume) 32 g/dL 32-36 Automated erythrocyte distribution width ratio 19. 4 % 10.0- 14.5 Automated blood platelet count (count/volume) 44 1 0*3/uL 130-400 Automated blood platelet mean volume measurement 11.3 [foz_us] 7.4-10.4 Automated blood neutrophils/100 leukocytes 65 % 42-75 Automated blood lymphocytes/100 leukocytes 14 % 12-44 Blood monocytes/100 leukocytes 19 % 0-12 Automated blood eosinophils/100 leukocytes 1 % 0-10 Automated blood basophils/100 leukocytes 1 % 0-10 Blood neutrophils automated count (number/volume) 3.7 10*3 1.8-7.8 Blood lymphocytes automated count (number/volume) 0.8 10*3 1.0-4.0 Blood monocytes automated count (number/volume) 1. 1 10*3 0.0-1.0 Automated eosinophil count 0.0 10*3/uL 0 .0-0.3 Automated blood basophil count (count/volume) 0.0 10*3/uL 0.0-0.1 Whole blood basic metabolic panel - 02/17 05:00 Serum or plasma sodium measurement (moles/volume) 131 mmol/L 135-145 Serum or plasma potassium measurement (moles/volume) 4.2 mmol/L 3.6-5.0 Serum or plasma chloride measurement (moles/volume) 98 mmol/L 98-107 Carbon dioxide 25 mmol/L 21-32 Serum or plasma anion gap determination (moles/volume) 8 mmol/L 5-14 Serum or plasma urea nitrogen measurement (mass/volume ) 20 mg/dL 7-18 Serum or plasma creatinine measurement (mass/volume) 0.65 mg/dL 0.60-1.30 Serum or plasma urea nitrogen/creatinine mass ratio 31 NRG Serum or plasma creatinine measurement w ith calculation of estimated glomerular filtration rate > NRG Serum or plasma glucose measurement (mass/volume) 92 mg/dL 70-105 Serum or plasma calcium measurement (mass/volume) 7.2 mg/dL 8.5-10.1 Serum or plasma phosphate measurement (m ass/volume) - 08/06/19 05:00 Serum or plasma phosphate measurement (mass/volume) 4.2 mg/dL 2.3-4.7 Magnesium - 08/06/19 05:00 Magnesium 1.7 mg/dL 1.6-2.4 Capillary blood glucose measurement by g lucometer (mass/volume) - 08/06/19 11:25 Capillary blood glucose measurement by glucometer (mas s/volume) 115 mg/dL 70-110 Acute hepatitis panel - 08/06/19 12:34 HEPATITIS A ANTIBODY IGM Non-Reactive N on-Reactive HEPATITIS B CORE CLEESTE IGM Non-Reactive N on-Reactive Confirmatory quantitative serum or plasm a hepatitis B virus surface antigen measurement Non-Reactive Non-Reactive Serum hepatitis C virus antibody detection Non-Veronica ctive Non-Reactive Capillary blood glucose measurement by g lucometer (mass/volume) - 08/06/19 15:53 Capillary blood glucose measurement by glucometer (mas s/volume) 110 mg/dL 70-110 Capillary blood glucose measurement by g lucometer (mass/volume) - 08/06/19 20:40 Capillary blood glucose measurement by glucometer (mas s/volume) 122 mg/dL 70-110 Complete blood count (CBC) with automate d white blood cell (WBC) differential - 08/07/19 04:35 Blood leukocytes automated count (number/volume) 4.5 10*3/uL 4.3-11.0 Blood erythrocytes automated count (number/volume) 2.29 10*6/uL 4.35-5.85 Venous blood hemoglobin measurement (mass/volume) 6.7 g/dL 11.5-16.0 Blood hematocrit (volume fraction) 21 % 35-52 Automated erythrocyte mean corpuscular volume 92 [ foz_us] 80-99 Automated erythrocyte mean corpuscular h emoglobin (mass per erythrocyte) 29 pg 25-34 Automated erythrocyte mean corpuscular h emoglobin concentration measurement (mass/volume) 32 g/dL 32-36 Automated erythrocyte distribution width ratio 20. 2 % 10.0- 14.5 Automated blood platelet count (count/volume) 39 1 0*3/uL 130-400 Automated blood platelet mean volume measurement 10.7 [foz_us] 7.4-10.4 Automated blood neutrophils/100 leukocytes 67 % 42-75 Automated blood lymphocytes/100 leukocytes 14 % 12-44 Blood monocytes/100 leukocytes 16 % 0-12 Automated blood eosinophils/100 leukocytes 1 % 0-10 Automated blood basophils/100 leukocytes 1 % 0-10 Blood neutrophils automated count (number/volume) 3.0 10*3 1.8-7.8 Blood lymphocytes automated count (number/volume) 0.6 10*3 1.0-4.0 Blood monocytes automated count (number/volume) 0. 7 10*3 0.0-1.0 Automated eosinophil count 0.0 10*3/uL 0 .0-0.3 Automated blood basophil count (count/volume) 0.1 10*3/uL 0.0-0.1 Whole blood basic metabolic panel - 1203/19 04:35 Serum or plasma sodium measurement (moles/volume) 132 mmol/L 135-145 Serum or plasma potassium measurement (moles/volume) 3.8 mmol/L 3.6-5.0 Serum or plasma chloride measurement (moles/volume) 100 mmol/L 98-107 Carbon dioxide 23 mmol/L 21-32 Serum or plasma anion gap determination (moles/volume) 9 mmol/L 5-14 Serum or plasma urea nitrogen measurement (mass/volume ) 18 mg/dL 7-18 Serum or plasma creatinine measurement (mass/volume) 0.59 mg/dL 0.60-1.30 Serum or plasma urea nitrogen/creatinine mass ratio 31 NRG Serum or plasma creatinine measurement w ith calculation of estimated glomerular filtration rate > NRG Serum or plasma glucose measurement (mass/volume) 93 mg/dL 70-105 Serum or plasma calcium measurement (mass/volume) 6.9 mg/dL 8.5-10.1 Serum or plasma phosphate measurement (m ass/volume) - 08/07/19 04:35 Serum or plasma phosphate measurement (mass/volume) 4.0 mg/dL 2.3-4.7 Magnesium - 08/07/19 04:35 Magnesium 1.6 mg/dL 1.6-2.4 Capillary blood glucose measurement by g lucometer (mass/volume) - 08/07/19 10:43 Capillary blood glucose measurement by glucometer (mas s/volume) 59 mg/dL 70-110 Capillary blood glucose measurement by g lucometer (mass/volume) - 08/07/19 11:43 Capillary blood glucose measurement by glucometer (mas s/volume) 80 mg/dL 70-110 Venous blood hemoglobin measurement (mas s/volume) - 08/07/19 13:25 Venous blood hemoglobin measurement (mass/volume) 9.3 g/dL 11.5-16.0 Capillary blood glucose measurement by g lucometer (mass/volume) - 08/07/19 13:52 Capillary blood glucose measurement by glucometer (mas s/volume) 120 mg/dL 70-110 Capillary blood glucose measurement by g lucometer (mass/volume) - 08/07/19 15:42 Capillary blood glucose measurement by glucometer (mas s/volume) 138 mg/dL 70-110 Capillary blood glucose measurement by g lucometer (mass/volume) - 08/07/19 20:44 Capillary blood glucose measurement by glucometer (mas s/volume) 210 mg/dL 70-110 Complete blood count (CBC) with automate d white blood cell (WBC) differential - 08/08/19 04:33 Blood leukocytes automated count (number/volume) 5.5 10*3/uL 4.3-11.0 Blood erythrocytes automated count (number/volume) 2.72 10*6/uL 4.35-5.85 Venous blood hemoglobin measurement (mass/volume) 8.0 g/dL 11.5-16.0 Blood hematocrit (volume fraction) 25 % 35-52 Automated erythrocyte mean corpuscular volume 91 [ foz_us] 80-99 Automated erythrocyte mean corpuscular h emoglobin (mass per erythrocyte) 29 pg 25-34 Automated erythrocyte mean corpuscular h emoglobin concentration measurement (mass/volume) 32 g/dL 32-36 Automated erythrocyte distribution width ratio 19. 7 % 10.0- 14.5 Automated blood platelet count (count/volume) 56 1 0*3/uL 130-400 Automated blood platelet mean volume measurement 11.9 [foz_us] 7.4-10.4 Automated blood neutrophils/100 leukocytes 79 % 42-75 Automated blood lymphocytes/100 leukocytes 9 % 12-44 Blood monocytes/100 leukocytes 13 % 0-12 Automated blood eosinophils/100 leukocytes 0 % 0-10 Automated blood basophils/100 leukocytes 0 % 0-10 Blood neutrophils automated count (number/volume) 4.4 10*3 1.8-7.8 Blood lymphocytes automated count (number/volume) 0.5 10*3 1.0-4.0 Blood monocytes automated count (number/volume) 0. 7 10*3 0.0-1.0 Automated eosinophil count 0.0 10*3/uL 0 .0-0.3 Automated blood basophil count (count/volume) 0.0 10*3/uL 0.0-0.1 Whole blood basic metabolic panel - 04/19 04:33 Serum or plasma sodium measurement (moles/volume) 132 mmol/L 135-145 Serum or plasma potassium measurement (moles/volume) 4.2 mmol/L 3.6-5.0 Serum or plasma chloride measurement (moles/volume) 97 mmol/L 98-107 Carbon dioxide 23 mmol/L 21-32 Serum or plasma anion gap determination (moles/volume) 12 mmol/L 5-14 Serum or plasma urea nitrogen measurement (mass/volume ) 21 mg/dL 7-18 Serum or plasma creatinine measurement (mass/volume) 0.57 mg/dL 0.60-1.30 Serum or plasma urea nitrogen/creatinine mass ratio 37 NRG Serum or plasma creatinine measurement w ith calculation of estimated glomerular filtration rate > NRG Serum or plasma glucose measurement (mass/volume) 143 mg/dL 70-105 Serum or plasma calcium measurement (mass/volume) 7.3 mg/dL 8.5-10.1 Capillary blood glucose measurement by g lucometer (mass/volume) - 08/08/19 11:02 Capillary blood glucose measurement by glucometer (mas s/volume) 145 mg/dL 70-110 Capillary blood glucose measurement by g lucometer (mass/volume) - 08/08/19 15:49 Capillary blood glucose measurement by glucometer (mas s/volume) 133 mg/dL 70-110 Complete urinalysis with reflex to cultu re - 08/08/19 16:25 Urine color determination COURTNEY NRG Urine clarity determination SL CLOUDY N RG Urine pH measurement by test strip 6.0 5-9 Specific gravity of urine by test strip 1.020 1.016-1.022 Urine protein assay by test strip, semi-quantitative 2+ NEGATIVE Urine glucose detection by automated test strip NE GATIVE NEGATIVE Erythrocytes detection in urine sediment by light micr oscopy 3+ NEGATIVE Urine ketones detection by automated test strip NE GATIVE NEGATIVE Urine nitrite detection by test strip NEGATIVE NEGATIVE Urine total bilirubin detection by test strip NEGA TIVE NEGATIVE Urine urobilinogen measurement by automated test strip (mass/volume) 1.0 mg/dL < = 1.0 Urine leukocyte esterase detection by dipstick NEG ATIVE NEGATIVE Automated urine sediment erythrocyte cou nt by microscopy (number/high power field) [HPF] NRG Automated urine sediment leukocyte count by microscopy (number/high power field) [HPF] NRG Bacteria detection in urine sediment by light microsco py MODERATE NRG Squamous epithelial cells detection in u rine sediment by light microscopy NONE NRG Crystals detection in urine sediment by light microsco py PRESENT NRG Casts detection in urine sediment by light microscopy PRESENT NRG Mucus detection in urine sediment by light microscopy NEGATIVE NRG Complete urinalysis with reflex to culture YES NRG Amorphous sediment detection in urine sediment by ligh t microscopy FEW HAJA URATES NRG Renal epithelial cells detection in urin e sediment by light microscopy 0-2 NRG Granular casts detection in urine sediment by light mi croscopy 2-5 NRG Bacterial urine culture - 08/08/19 16:25 Bacterial urine culture [id number] NRG COLONY COUNT 30,000 CFU/ML NRG FTX;REPORTABLE VANCOMYCIN-RESISTANT ENTEROCOCCI NRG FREE TEXT ENTRY 2 RESISTANT ORGANISM/CONTACT PRECA UTIONS NRG FREE TEXT ENTRY 3 SUSCEPTIBILITY REPORTED 08/11/19 16:45 NRG Dirithromycin susceptibility test by dis k diffusion - 08/08/19 16:25 Vancomycin susceptibility test by minimum inhibitory c oncentration > NRG Levofloxacin susceptibility test by minimum inhibitory concentration > NRG Ampicillin susceptibility test by minimum inhibitory c oncentration > NRG Linezolid susceptibility test by minimum inhibitory co ncentration 2 NRG Daptomycin susc WALE 4 NRG Capillary blood glucose measurement by g lucometer (mass/volume) - 08/08/19 20:12 Capillary blood glucose measurement by glucometer (mas s/volume) 165 mg/dL 70-110 Complete blood count (CBC) with automate d white blood cell (WBC) differential - 08/09/19 04:35 Blood leukocytes automated count (number/volume) 7.2 10*3/uL 4.3-11.0 Blood erythrocytes automated count (number/volume) 2.58 10*6/uL 4.35-5.85 Venous blood hemoglobin measurement (mass/volume) 7.5 g/dL 11.5-16.0 Blood hematocrit (volume fraction) 24 % 35-52 Automated erythrocyte mean corpuscular volume 92 [ foz_us] 80-99 Automated erythrocyte mean corpuscular h emoglobin (mass per erythrocyte) 29 pg 25-34 Automated erythrocyte mean corpuscular h emoglobin concentration measurement (mass/volume) 32 g/dL 32-36 Automated erythrocyte distribution width ratio 20. 9 % 10.0- 14.5 Automated blood platelet count (count/volume) 81 1 0*3/uL 130-400 Automated blood platelet mean volume measurement 11.2 [foz_us] 7.4-10.4 Automated blood neutrophils/100 leukocytes 81 % 42-75 Automated blood lymphocytes/100 leukocytes 5 % 12-44 Blood monocytes/100 leukocytes 15 % 0-12 Automated blood eosinophils/100 leukocytes 0 % 0-10 Automated blood basophils/100 leukocytes 0 % 0-10 Blood neutrophils automated count (number/volume) 5.8 10*3 1.8-7.8 Blood lymphocytes automated count (number/volume) 0.3 10*3 1.0-4.0 Blood monocytes automated count (number/volume) 1. 0 10*3 0.0-1.0 Automated eosinophil count 0.0 10*3/uL 0 .0-0.3 Automated blood basophil count (count/volume) 0.0 10*3/uL 0.0-0.1 Comprehensive metabolic panel - 08/09/19 04:35 Serum or plasma sodium measurement (moles/volume) 132 mmol/L 135-145 Serum or plasma potassium measurement (moles/volume) 4.4 mmol/L 3.6-5.0 Serum or plasma chloride measurement (moles/volume) 98 mmol/L 98-107 Carbon dioxide 22 mmol/L 21-32 Serum or plasma anion gap determination (moles/volume) 12 mmol/L 5-14 Serum or plasma urea nitrogen measurement (mass/volume ) 23 mg/dL 7-18 Serum or plasma creatinine measurement (mass/volume) 0.71 mg/dL 0.60-1.30 Serum or plasma urea nitrogen/creatinine mass ratio 32 NRG Serum or plasma creatinine measurement w ith calculation of estimated glomerular filtration rate > NRG Serum or plasma glucose measurement (mass/volume) 133 mg/dL 70-105 Serum or plasma calcium measurement (mass/volume) 7.4 mg/dL 8.5-10.1 Serum or plasma total bilirubin measurement (mass/volu me) 1.4 mg/dL 0.1-1.0 Serum or plasma alkaline phosphatase charles surement (enzymatic activity/volume) 140 U/L 40-136 Serum or plasma aspartate aminotransfera se measurement (enzymatic activity/volume) 45 U/L 5-34 Serum or plasma alanine aminotransferase measurement (enzymatic activity/volume) 12 U/L 0-55 Serum or plasma protein measurement (mass/volume) 4.2 g/dL 6.4-8.2 Serum or plasma albumin measurement (mass/volume) 1.7 g/dL 3.2-4.5 CALCIUM CORRECTED 9.2 mg/dL 8.5-10.1 Serum or plasma uric acid measurement (m ass/volume) - 08/09/19 04:35 Serum or plasma uric acid measurement (mass/volume) 5.2 mg/dL 2.6-7.2 Serum or plasma phosphate measurement (m ass/volume) - 08/09/19 04:35 Serum or plasma phosphate measurement (mass/volume) 4.5 mg/dL 2.3-4.7 Magnesium - 08/09/19 04:35 Magnesium 1.6 mg/dL 1.6-2.4 Serum ragweed IgE antibody assay - 08/09 04:35 Serum ragweed IgE antibody assay 2316 U/L 125-220 Capillary blood glucose measurement by g lucometer (mass/volume) - 08/09/19 06:09 Capillary blood glucose measurement by glucometer (mas s/volume) 123 mg/dL 70-110 Capillary blood glucose measurement by g lucometer (mass/volume) - 08/09/19 11:09 Capillary blood glucose measurement by glucometer (mas s/volume) 126 mg/dL 70-110 Capillary blood glucose measurement by g lucometer (mass/volume) - 08/09/19 15:47 Capillary blood glucose measurement by glucometer (mas s/volume) 134 mg/dL 70-110 RED CELLS LEUKO REDUCED AS1 - 08/09/19 1 8:21 RED CELLS LEUKO REDUCED AS1 T RANSFUSED 08/09/190 NRG Blood type T Indirect antibody screen pa erlin - 08/09/19 18:21 WRISTBAND NUMBER [id number] NRG ABO+Rh group BP NRG Blood group antibody screen NEGATIVE NR G Capillary blood glucose measurement by g lucometer (mass/volume) - 08/09/19 21:00 Capillary blood glucose measurement by glucometer (mas s/volume) 134 mg/dL 70-110 Complete blood count (CBC) with automate d white blood cell (WBC) differential - 08/10/19 05:05 Blood leukocytes automated count (number/volume) 5.4 10*3/uL 4.3-11.0 Blood erythrocytes automated count (number/volume) 2.47 10*6/uL 4.35-5.85 Venous blood hemoglobin measurement (mass/volume) 7.4 g/dL 11.5-16.0 Blood hematocrit (volume fraction) 23 % 35-52 Automated erythrocyte mean corpuscular volume 94 [ foz_us] 80-99 Automated erythrocyte mean corpuscular h emoglobin (mass per erythrocyte) 30 pg 25-34 Automated erythrocyte mean corpuscular h emoglobin concentration measurement (mass/volume) 32 g/dL 32-36 Automated erythrocyte distribution width ratio 20. 2 % 10.0- 14.5 Automated blood platelet count (count/volume) 73 1 0*3/uL 130-400 Automated blood platelet mean volume measurement 11.3 [foz_us] 7.4-10.4 Automated blood neutrophils/100 leukocytes 78 % 42-75 Automated blood lymphocytes/100 leukocytes 8 % 12-44 Blood monocytes/100 leukocytes 14 % 0-12 Automated blood eosinophils/100 leukocytes 0 % 0-10 Automated blood basophils/100 leukocytes 0 % 0-10 Blood neutrophils automated count (number/volume) 4.2 10*3 1.8-7.8 Blood lymphocytes automated count (number/volume) 0.4 10*3 1.0-4.0 Blood monocytes automated count (number/volume) 0. 7 10*3 0.0-1.0 Automated eosinophil count 0.0 10*3/uL 0 .0-0.3 Automated blood basophil count (count/volume) 0.0 10*3/uL 0.0-0.1 Comprehensive metabolic panel - 08/10/19 05:05 Serum or plasma sodium measurement (moles/volume) 134 mmol/L 135-145 Serum or plasma potassium measurement (moles/volume) 4.3 mmol/L 3.6-5.0 Serum or plasma chloride measurement (moles/volume) 102 mmol/L 98-107 Carbon dioxide 23 mmol/L 21-32 Serum or plasma anion gap determination (moles/volume) 9 mmol/L 5-14 Serum or plasma urea nitrogen measurement (mass/volume ) 20 mg/dL 7-18 Serum or plasma creatinine measurement (mass/volume) 0.60 mg/dL 0.60-1.30 Serum or plasma urea nitrogen/creatinine mass ratio 33 NRG Serum or plasma creatinine measurement w ith calculation of estimated glomerular filtration rate > NRG Serum or plasma glucose measurement (mass/volume) 153 mg/dL 70-105 Serum or plasma calcium measurement (mass/volume) 7.0 mg/dL 8.5-10.1 Serum or plasma total bilirubin measurement (mass/volu me) 1.7 mg/dL 0.1-1.0 Serum or plasma alkaline phosphatase charles surement (enzymatic activity/volume) 123 U/L 40-136 Serum or plasma aspartate aminotransfera se measurement (enzymatic activity/volume) 53 U/L 5-34 Serum or plasma alanine aminotransferase measurement (enzymatic activity/volume) 15 U/L 0-55 Serum or plasma protein measurement (mass/volume) 4.0 g/dL 6.4-8.2 Serum or plasma albumin measurement (mass/volume) 1.6 g/dL 3.2-4.5 CALCIUM CORRECTED 8.9 mg/dL 8.5-10.1 Serum or plasma uric acid measurement (m ass/volume) - 08/10/19 05:05 Serum or plasma uric acid measurement (mass/volume) 4.9 mg/dL 2.6-7.2 Capillary blood glucose measurement by g lucometer (mass/volume) - 08/10/19 16:11 Capillary blood glucose measurement by glucometer (mas s/volume) 208 mg/dL 70-110 Capillary blood glucose measurement by g lucometer (mass/volume) - 08/10/19 20:09 Capillary blood glucose measurement by glucometer (mas s/volume) 186 mg/dL 70-110 Whole blood hemoglobin and hematocrit pa erlin - 08/10/19 21:13 Venous blood hemoglobin measurement (mass/volume) 8.1 g/dL 11.5-16.0 Blood hematocrit (volume fraction) 25 % 35-52 Complete blood count (CBC) with automate d white blood cell (WBC) differential - 08/11/19 04:34 Blood leukocytes automated count (number/volume) 3.7 10*3/uL 4.3-11.0 Blood erythrocytes automated count (number/volume) 2.69 10*6/uL 4.35-5.85 Venous blood hemoglobin measurement (mass/volume) 7.9 g/dL 11.5-16.0 Blood hematocrit (volume fraction) 25 % 35-52 Automated erythrocyte mean corpuscular volume 92 [ foz_us] 80-99 Automated erythrocyte mean corpuscular h emoglobin (mass per erythrocyte) 29 pg 25-34 Automated erythrocyte mean corpuscular h emoglobin concentration measurement (mass/volume) 32 g/dL 32-36 Automated erythrocyte distribution width ratio 19. 6 % 10.0- 14.5 Automated blood platelet count (count/volume) 102 10*3/uL 130-400 Automated blood platelet mean volume measurement 10.0 [foz_us] 7.4-10.4 Automated blood neutrophils/100 leukocytes 75 % 42-75 Automated blood lymphocytes/100 leukocytes 5 % 12-44 Blood monocytes/100 leukocytes 19 % 0-12 Automated blood eosinophils/100 leukocytes 0 % 0-10 Automated blood basophils/100 leukocytes 0 % 0-10 Blood neutrophils automated count (number/volume) 2.8 10*3 1.8-7.8 Blood lymphocytes automated count (number/volume) 0.2 10*3 1.0-4.0 Blood monocytes automated count (number/volume) 0. 7 10*3 0.0-1.0 Automated eosinophil count 0.0 10*3/uL 0 .0-0.3 Automated blood basophil count (count/volume) 0.0 10*3/uL 0.0-0.1 Comprehensive metabolic panel - 08/11/19 04:34 Serum or plasma sodium measurement (moles/volume) 137 mmol/L 135-145 Serum or plasma potassium measurement (moles/volume) 4.5 mmol/L 3.6-5.0 Serum or plasma chloride measurement (moles/volume) 107 mmol/L 98-107 Carbon dioxide 22 mmol/L 21-32 Serum or plasma anion gap determination (moles/volume) 8 mmol/L 5-14 Serum or plasma urea nitrogen measurement (mass/volume ) 23 mg/dL 7-18 Serum or plasma creatinine measurement (mass/volume) 0.68 mg/dL 0.60-1.30 Serum or plasma urea nitrogen/creatinine mass ratio 34 NRG Serum or plasma creatinine measurement w ith calculation of estimated glomerular filtration rate > NRG Serum or plasma glucose measurement (mass/volume) 130 mg/dL 70-105 Serum or plasma calcium measurement (mass/volume) 7.0 mg/dL 8.5-10.1 Serum or plasma total bilirubin measurement (mass/volu me) 1.2 mg/dL 0.1-1.0 Serum or plasma alkaline phosphatase charles surement (enzymatic activity/volume) 134 U/L 40-136 Serum or plasma aspartate aminotransfera se measurement (enzymatic activity/volume) 87 U/L 5-34 Serum or plasma alanine aminotransferase measurement (enzymatic activity/volume) 23 U/L 0-55 Serum or plasma protein measurement (mass/volume) 4.0 g/dL 6.4-8.2 Serum or plasma albumin measurement (mass/volume) 1.6 g/dL 3.2-4.5 CALCIUM CORRECTED 8.9 mg/dL 8.5-10.1 Serum ragweed IgE antibody assay - 08/11 04:34 Serum ragweed IgE antibody assay 2411 U/L 125-220 Manual absolute plasma cell count - 08/01 09/19 04:34 Blood monocytes/100 leukocytes 12 % NRG Manual blood segmented neutrophils/100 leukocytes 85 % NRG Manual blood lymphocytes/100 leukocytes 2 % NRG Manual eosinophils/100 leukocytes in nose 1 % NRG Capillary blood glucose measurement by g lucometer (mass/volume) - 08/11/19 10:54 Capillary blood glucose measurement by glucometer (mas s/volume) 156 mg/dL 70-110 Capillary blood glucose measurement by g lucometer (mass/volume) - 08/11/19 15:29 Capillary blood glucose measurement by glucometer (mas s/volume) 152 mg/dL 70-110 Complete blood count (CBC) with automate d white blood cell (WBC) differential - 10/14/19 18:01 Blood leukocytes automated count (number/volume) 22.9 10*3/uL 4.3-11.0 Blood erythrocytes automated count (number/volume) 3.40 10*6/uL 4.35-5.85 Venous blood hemoglobin measurement (mass/volume) 11.0 g/dL 11.5-16.0 Blood hematocrit (volume fraction) 35 % 35-52 Automated erythrocyte mean corpuscular volume 102 [foz_us] 80-99 Automated erythrocyte mean corpuscular h emoglobin (mass per erythrocyte) 32 pg 25-34 Automated erythrocyte mean corpuscular h emoglobin concentration measurement (mass/volume) 32 g/dL 32-36 Automated erythrocyte distribution width ratio 16. 6 % 10.0- 14.5 Automated blood platelet count (count/volume) 257 10*3/uL 130-400 Automated blood platelet mean volume measurement 8.7 [foz_us] 7.4-10.4 Automated blood neutrophils/100 leukocytes 87 % 42-75 Automated blood lymphocytes/100 leukocytes 6 % 12-44 Blood monocytes/100 leukocytes 6 % 0-12 Automated blood eosinophils/100 leukocytes 1 % 0-10 Automated blood basophils/100 leukocytes 1 % 0-10 Blood neutrophils automated count (number/volume) 19.9 10*3 1.8-7.8 Blood lymphocytes automated count (number/volume) 1.3 10*3 1.0-4.0 Blood monocytes automated count (number/volume) 1. 4 10*3 0.0-1.0 Automated eosinophil count 0.2 10*3/uL 0 .0-0.3 Automated blood basophil count (count/volume) 0.1 10*3/uL 0.0-0.1 PT panel in platelet poor plasma by coag ulation assay - 10/14/19 18:01 Prothrombin time (PT) in platelet poor plasma by coagu lation assay 13.4 s 12.2-14.7 INR in platelet poor plasma or blood by coagulation as say 1.0 0.8-1.4 Activated partial thromboplastin time (a PTT) in platelet poor plasma bycoagulation assay - 10/14/19 18:01 Activated partial thromboplastin time (a PTT) in platelet poor plasma bycoagulation assay 26 s 24-35 Blood lactic acid measurement (moles/vol ume) - 10/14/19 18:01 Blood lactic acid measurement (moles/volume) 1.58 mmol/L 0.50-2.00 Comprehensive metabolic panel - 10/14/19 18:01 Serum or plasma sodium measurement (moles/volume) 136 mmol/L 135-145 Serum or plasma potassium measurement (moles/volume) 3.8 mmol/L 3.6-5.0 Serum or plasma chloride measurement (moles/volume) 103 mmol/L 98-107 Carbon dioxide 21 mmol/L 21-32 Serum or plasma anion gap determination (moles/volume) 12 mmol/L 5-14 Serum or plasma urea nitrogen measurement (mass/volume ) 15 mg/dL 7-18 Serum or plasma creatinine measurement (mass/volume) 0.77 mg/dL 0.60-1.30 Serum or plasma urea nitrogen/creatinine mass ratio 19 NRG Serum or plasma creatinine measurement w ith calculation of estimated glomerular filtration rate > NRG Serum or plasma glucose measurement (mass/volume) 122 mg/dL 70-105 Serum or plasma calcium measurement (mass/volume) 8.9 mg/dL 8.5-10.1 Serum or plasma total bilirubin measurement (mass/volu me) 0.4 mg/dL 0.1-1.0 Serum or plasma alkaline phosphatase charles surement (enzymatic activity/volume) 247 U/L 40-136 Serum or plasma aspartate aminotransfera se measurement (enzymatic activity/volume) 18 U/L 5-34 Serum or plasma alanine aminotransferase measurement (enzymatic activity/volume) 16 U/L 0-55 Serum or plasma protein measurement (mass/volume) 6.9 g/dL 6.4-8.2 Serum or plasma albumin measurement (mass/volume) 3.8 g/dL 3.2-4.5 CALCIUM CORRECTED 9.1 mg/dL 8.5-10.1 Influenza virus A and B antigen detectio n - 10/14/19 18:01 FLU RESULT NEGATIVE FOR INFLUENZA A AND B ANTIGENS BY [facility] Manual absolute plasma cell count - 10/02 11/18 18:01 Blood monocytes/100 leukocytes 6 % NRG Manual blood segmented neutrophils/100 leukocytes 58 % NRG Blood band neutrophils/100 leukocytes 31 % NRG Manual blood lymphocytes/100 leukocytes 2 % NRG Manual eosinophils/100 leukocytes in nose 2 % NRG Manual blood basophils/100 leukocytes 0 % NRG Blood polychromasia detection by light microscopy SLIGHT NRG Blood anisocytosis detection by light microscopy S LIGHT NRG Manual blood metamyelocytes/100 leukocytes 1 % NRG Bacterial blood culture - 10/14/19 18:01 Bacterial blood culture NG NRG Complete urinalysis with reflex to cultu re - 10/14/19 18:15 Urine color determination YELLOW NRG Urine clarity determination CLEAR NR G Urine pH measurement by test strip 8.0 5-9 Specific gravity of urine by test strip 1.020 1.016-1.022 Urine protein assay by test strip, semi-quantitative TRACE NEGATIVE Urine glucose detection by automated test strip NE GATIVE NEGATIVE Erythrocytes detection in urine sediment by light micr oscopy NEGATIVE NEGATIVE Urine ketones detection by automated test strip NE GATIVE NEGATIVE Urine nitrite detection by test strip NEGATIVE NEGATIVE Urine total bilirubin detection by test strip NEGA TIVE NEGATIVE Urine urobilinogen measurement by automated test strip (mass/volume) 0.2 mg/dL < = 1.0 Urine leukocyte esterase detection by dipstick NEG ATIVE NEGATIVE Automated urine sediment erythrocyte cou nt by microscopy (number/high power field) RARE NRG Automated urine sediment leukocyte count by microscopy (number/high power field) NONE NRG Bacteria detection in urine sediment by light microsco py NEGATIVE NRG Squamous epithelial cells detection in u rine sediment by light microscopy 5-10 NRG Crystals detection in urine sediment by light microsco py NONE NRG Casts detection in urine sediment by light microscopy NONE NRG Mucus detection in urine sediment by light microscopy NEGATIVE NRG Complete urinalysis with reflex to culture CULTURE PENDING NRG Bacterial urine culture - 10/14/19 18:15 Bacterial urine culture [id number] NRG COLONY COUNT 40,000 CFU/ML NRG FTX;REPORTABLE NO SUSCEPTIBILITY PERFORMED NRG Bacterial blood culture - 10/14/19 18:56 Bacterial blood culture NG NRG Complete blood count (CBC) with automate d white blood cell (WBC) differential - 10/15/19 05:40 Blood leukocytes automated count (number/volume) 16.0 10*3/uL 4.3-11.0 Blood erythrocytes automated count (number/volume) 3.16 10*6/uL 4.35-5.85 Venous blood hemoglobin measurement (mass/volume) 10.2 g/dL 11.5-16.0 Blood hematocrit (volume fraction) 32 % 35-52 Automated erythrocyte mean corpuscular volume 101 [foz_us] 80-99 Automated erythrocyte mean corpuscular h emoglobin (mass per erythrocyte) 32 pg 25-34 Automated erythrocyte mean corpuscular h emoglobin concentration measurement (mass/volume) 32 g/dL 32-36 Automated erythrocyte distribution width ratio 16. 6 % 10.0- 14.5 Automated blood platelet count (count/volume) 221 10*3/uL 130-400 Automated blood platelet mean volume measurement 8.6 [foz_us] 7.4-10.4 Automated blood neutrophils/100 leukocytes 87 % 42-75 Automated blood lymphocytes/100 leukocytes 5 % 12-44 Blood monocytes/100 leukocytes 7 % 0-12 Automated blood eosinophils/100 leukocytes 1 % 0-10 Automated blood basophils/100 leukocytes 0 % 0-10 Blood neutrophils automated count (number/volume) 13.9 10*3 1.8-7.8 Blood lymphocytes automated count (number/volume) 0.8 10*3 1.0-4.0 Blood monocytes automated count (number/volume) 1. 1 10*3 0.0-1.0 Automated eosinophil count 0.1 10*3/uL 0 .0-0.3 Automated blood basophil count (count/volume) 0.1 10*3/uL 0.0-0.1 Comprehensive metabolic panel - 10/15/19 05:40 Serum or plasma sodium measurement (moles/volume) 138 mmol/L 135-145 Serum or plasma potassium measurement (moles/volume) 3.3 mmol/L 3.6-5.0 Serum or plasma chloride measurement (moles/volume) 105 mmol/L 98-107 Carbon dioxide 23 mmol/L 21-32 Serum or plasma anion gap determination (moles/volume) 10 mmol/L 5-14 Serum or plasma urea nitrogen measurement (mass/volume ) 10 mg/dL 7-18 Serum or plasma creatinine measurement (mass/volume) 0.68 mg/dL 0.60-1.30 Serum or plasma urea nitrogen/creatinine mass ratio 15 NRG Serum or plasma creatinine measurement w ith calculation of estimated glomerular filtration rate > NRG Serum or plasma glucose measurement (mass/volume) 111 mg/dL 70-105 Serum or plasma calcium measurement (mass/volume) 8.6 mg/dL 8.5-10.1 Serum or plasma total bilirubin measurement (mass/volu me) 0.4 mg/dL 0.1-1.0 Serum or plasma alkaline phosphatase charles surement (enzymatic activity/volume) 229 U/L 40-136 Serum or plasma aspartate aminotransfera se measurement (enzymatic activity/volume) 14 U/L 5-34 Serum or plasma alanine aminotransferase measurement (enzymatic activity/volume) 10 U/L 0-55 Serum or plasma protein measurement (mass/volume) 6.0 g/dL 6.4-8.2 Serum or plasma albumin measurement (mass/volume) 3.3 g/dL 3.2-4.5 CALCIUM CORRECTED 9.2 mg/dL 8.5-10.1 Complete blood count (CBC) with automate d white blood cell (WBC) differential - 10/16/19 05:15 Blood leukocytes automated count (number/volume) 12.0 10*3/uL 4.3-11.0 Blood erythrocytes automated count (number/volume) 3.06 10*6/uL 4.35-5.85 Venous blood hemoglobin measurement (mass/volume) 10.0 g/dL 11.5-16.0 Blood hematocrit (volume fraction) 31 % 35-52 Automated erythrocyte mean corpuscular volume 103 [foz_us] 80-99 Automated erythrocyte mean corpuscular h emoglobin (mass per erythrocyte) 33 pg 25-34 Automated erythrocyte mean corpuscular h emoglobin concentration measurement (mass/volume) 32 g/dL 32-36 Automated erythrocyte distribution width ratio 16. 3 % 10.0- 14.5 Automated blood platelet count (count/volume) 172 10*3/uL 130-400 Automated blood platelet mean volume measurement 8.8 [foz_us] 7.4-10.4 Automated blood neutrophils/100 leukocytes 81 % 42-75 Automated blood lymphocytes/100 leukocytes 7 % 12-44 Blood monocytes/100 leukocytes 9 % 0-12 Automated blood eosinophils/100 leukocytes 2 % 0-10 Automated blood basophils/100 leukocytes 1 % 0-10 Blood neutrophils automated count (number/volume) 9.8 10*3 1.8-7.8 Blood lymphocytes automated count (number/volume) 0.8 10*3 1.0-4.0 Blood monocytes automated count (number/volume) 1. 1 10*3 0.0-1.0 Automated eosinophil count 0.2 10*3/uL 0 .0-0.3 Automated blood basophil count (count/volume) 0.1 10*3/uL 0.0-0.1 Whole blood basic metabolic panel - 10/02 01/18 05:15 Serum or plasma sodium measurement (moles/volume) 142 mmol/L 135-145 Serum or plasma potassium measurement (moles/volume) 3.7 mmol/L 3.6-5.0 Serum or plasma chloride measurement (moles/volume) 109 mmol/L 98-107 Carbon dioxide 24 mmol/L 21-32 Serum or plasma anion gap determination (moles/volume) 9 mmol/L 5-14 Serum or plasma urea nitrogen measurement (mass/volume ) 12 mg/dL 7-18 Serum or plasma creatinine measurement (mass/volume) 0.64 mg/dL 0.60-1.30 Serum or plasma urea nitrogen/creatinine mass ratio 19 NRG Serum or plasma creatinine measurement w ith calculation of estimated glomerular filtration rate > NRG Serum or plasma glucose measurement (mass/volume) 105 mg/dL 70-105 Serum or plasma calcium measurement (mass/volume) 8.7 mg/dL 8.5-10.1 Encounters ACCT No. Visit Date/Time Discharge Status Pt. Type Provider Facility Loc./Unit Complaint [id number] 12/09/2019 09:30:00 23:59:59 CLS Outpatient LEEROY BANERJEE [facility] ONC [id number] 11/05/2019 15:21:00 00:01:00 DIS Outpatient LEEROY BANERJEE [facility] ONC [id number] 11/02/2019 10:49:00 23:59:59 CLS Outpatient PRISCILLA PRITCHARD [facility] RAD ENCOUNTER FOR I AVERY STUDY TO RESTAGE [id number] 11/01/2019 15:59:00 23:59:59 CLS Outpatient FACUNDO ARREOLA [facility] RAD NECK PAIN [id number] 10/29/2019 09:13:00 23:59:59 CLS Outpatient PRISCILLA PRITCHARD [facility] RAD LARGE BCELL LYM PHOMA [id number] 10/14/2019 20:10:00 13:24:00 DIS Inpatient CHRISTINE FINLEY, APARNA Cordova [facility] 4TH RLL PNA,SEPSIS [id number] 09/27/2019 11:27:00 23:59:59 CLS Outpatient LITZY SHAFER MD [facility] RAD SCREENING [id number] 07/27/2019 16:25:00 16:01:00 DIS Inpatient SIERRA FINLEY, DENISA Cordova [facility] 4TH SEVERE SEPSIS; PNEUMONI A; HYPOKALEMIA; AMS [id number] 07/22/2019 07:45:00 16:10:00 DIS Outpatient KALPANA PACHECO APRN [facility] SDC ANEMIA [id number] 07/16/2019 08:59:00 14:55:00 [facility] [id number] 07/14/2019 18:03:00 23:59:59 CLS Outpatient FACUNDO ARREOLA [facility] CVS [id number] 07/13/2019 06:49:00 23:59:59 CLS Outpatient DAVINA TRONCOSO [facility] CARD DYSPNEA [id number] 07/08/2019 20:30:00 14:30:00 DIS Inpatient GISEL FLOYD MD [facility] CSD UTI,SEPSIS,SEVER ANEMIA,NIDDM,HYPOMAGNESIUM,HYPOCA
--- NOTE | 2019-12-15 10:37 | ED Cardiac General ---
History of Present Illness General Chief Complaint: Cardiac/General Problems Stated Complaint: SOA Source: patient Exam Limitations: no limitations History of Present Illness Date Seen by Provider: Dec 15, 2019 Time Seen by Provider: 10:27 Initial Comments Patient presents to ER by private conveyance from home after discussing the case over the phone with her primary care doctor, Chay Barnett with Dr. Shafer. She's been experiencing some shortness of breath since yesterday. She felt that her heart was running around 140-160. She has a history of atrial fibrillation and had atrial fibrillation with rapid ventricular response about a year ago that put her in the hospital. She is not having a cough fever chills or known sick contacts. She has not taken any extra medication but she does take Coreg and flecainide regularly. She's no longer on Lasix. She's not having any chest pain although she does have a history of coronary disease. She is known to Dr. Muhammad for cardiology. She denies any increase swelling in her hands or feet. She denies any wheezing history of COPD or use of breathing treatments. She says she has checked her temperature regularly but has not had a fever. She denies any nausea sweats or weakness. She does not depend on oxygen at home. She is known to Dr. Sheikh for non-Hodgkin B-cell lymphoma for which she is on chemotherapy. Her next dose is anticipated December 30, 2019. She did recently in October, 2 months ago and spent a few days in the hospital for pneumonia. Allergies and Home Medications Allergies Coded Allergies: Cephalexin Monohydrate (Verified Allergy, Unknown, has tolerated Ancef, 08/03/19) Iodinated Contrast Media (Verified Allergy, Unknown, 10/29/19) Penicillins (Verified Allergy, Unknown, Has tolerated Ancef, 08/03/19) iodine (Verified Allergy, Unknown, 07/08/19) linaclotide (Verified Allergy, Unknown, 07/28/19) lubiprostone (Verified Allergy, Unknown, 07/28/19) venlafaxine HCl (Verified Allergy, Unknown, 07/08/19) Home Medications Acetaminophen 325 Mg Tablet, 650 MG PO Q4H PRN for PAIN-MILD, (Reported) Aspirin 81 Mg Tablet.dr, 81 MG PO DAILY, (Reported) Atorvastatin Calcium 20 Mg Tablet, 20 MG PO HS, (Reported) Budesonide 0.5 Mg/2 Ml Ampul.neb, 0.5 MG NEB BID PRN for SHORTNESS OF BREATH, (Reported) Calcium Carbonate/Vitamin D3 1 Each Tablet, 1 TAB PO DAILY, (Reported) Carvedilol 6.25 Mg Tablet, 6.25 MG PO BID, (Reported) Cholecalciferol (Vitamin D3) 5,000 Unit Tab.rapdis, 5,000 UNIT PO DAILY, (Reported) Citalopram Hydrobromide 10 Mg Tablet, 10 MG PO BID, (Reported) Estrogens Conjugated 0.45 Mg Tab, 0.45 MG PO DAILY, (Reported) Famotidine 20 Mg Tablet, 20 MG PO BID, (Reported) Flecainide Acetate 100 Mg Tablet, 100 MG PO BID, (Reported) Furosemide 20 Mg Tablet, 20 MG PO DAILY PRN for SWELLING, (Reported) Hydrocodone Bit/Acetaminophen 1 Each Tablet, 1 TAB PO Q6H PRN for PAIN-MODERATE (5-7), (Reported) Ipratropium/Albuterol Sulfate 3 Ml Ampul.neb, 3 ML NEB QID PRN for SHORTNESS OF BREATH, (Reported) Levofloxacin 750 Mg Tablet, 750 MG PO DAILY Prescribed by: ODELL JOHNSON on 10/16/19 1139 Metformin HCl 500 Mg Tablet, 500 MG PO HS, (Reported) Mirtazapine 15 Mg Tablet, 7.5 MG PO HS, (Reported) TAKES 1/2 (15MG) TABLET Ondansetron HCl 4 Mg Tablet, 4 MG PO Q6H PRN for NAUSEA/VOMITING-1ST LINE, (Reported) Pantoprazole Sodium 40 Mg Tablet.dr, 40 MG PO DAILY, (Reported) Pedi Mv No.79/Ferrous Fumarate 18 Mg Tab.chew, 18 MG PO DAILY, (Reported) Polyethylene Glycol 3350 17 Gm Powd.pack, 17 GM PO DAILY PRN for CONSTIPATION- 2ND LINE, (Reported) Promethazine HCl 12.5 Mg Tablet, 12.5 MG PO Q6H PRN for NAUSEA/VOMITING-2ND LINE, (Reported) Sennosides/Docusate Sodium 1 Each Tablet, 1 TAB PO BID PRN for CONSTIPATION-6TH LINE, (Reported) Vit A/Vit C/Vit E/Zinc/Copper 1 Each Tablet, 1 TAB PO DAILY, (Reported) Patient Home Medication List Home Medication List Reviewed: Yes Review of Systems Review of Systems Constitutional: No chills, No fever EENTM: No Blurred Vision, No Double Vision Respiratory: Denies Cough; Shortness of Air, SOA With Exertion, SOA at Rest; Denies Wheezing Cardiovascular: See HPI; Denies Chest Pain; Edema (chronic, non-increased), Irregular Heart Rate, Palpitations Gastrointestinal: Denies Abdominal Pain, Denies Constipated, Denies Diarrhea, Denies Nausea Genitourinary: Denies Burning, Denies Discharge Musculoskeletal: No back pain, No joint pain Skin: No pruritus, No rash Psychiatric/Neurological: Denies Headache, Denies Numbness All Other Systems Reviewed Negative Unless Noted: Yes Past Mwsgxim-Dboniz-Irczam Hx Patient Social History Alcohol Use: Denies Use Recreational Drug Use: No Smoking Status: Never a Smoker 2nd Hand Smoke Exposure: No Recent Hopitalizations: Yes Immunizations Up To Date Tetanus Booster (TDap): Unknown Date of Pneumonia Vaccine: Oct 02, 2015 Date of Influenza Vaccine: Jun 01, 2019 Seasonal Allergies Seasonal Allergies: Yes Past Medical History Surgeries: Yes Abdominal, Appendectomy, Bladder Surgery, Cardiac, Gallbladder, Hysterectomy Respiratory: Yes Pneumonia, COPD Cardiac: Yes Atrial Fibrillation, Hypertension, Valvular Heart Disease Neurological: No [employer] History: Menopausal Genitourinary: Yes (BLADDER PROLAPSE--S/P BLADDER SURGERIES WITH VAGINAL MESH) Bladder Infection Gastrointestinal: Yes (dysphagia) Gastroesophageal Reflux, Gastrointestinal Bleed, Chronic Constipation, Hiatal Hernia Musculoskeletal: Yes Rheumatoid Arthritis Endocrine: Yes Diabetes, Non-Insulin dep HEENT: No Cancer: Yes Lymphoma What Type of Treatment Did You: Chemotherapy Psychosocial: Yes Anxiety, Depression Integumentary: No Blood Disorders: Yes (ANEMIA--UNKNOWN CAUSE) Adverse Reaction/Blood Tranf: No Family Medical History No Pertinent Family Hx Physical Exam Vital Signs Vital Signs - First Documented 12/15/19 10:23 Temp 36.0 Pulse 152 Resp 20 B/P (MAP) 170/112 (131) Pulse Ox 89 O2 Delivery Room Air Capillary Refill : Height, Weight, BMI Height: '" Weight: lbs. oz. kg; 20.04 BMI Method:Estimated General Appearance: WD/WN, Anxious, Moderate Distress HEENT: PERRL/EOMI, Pharynx Normal, Moist Mucous Membranes Neck: Full Range of Motion, Normal Inspection Respiratory: Chest Non Tender, Lungs Clear, Normal Breath Sounds, Respiratory Distress ([id number] with increased rate) Cardiovascular: No Murmur, Irregularly Irregular, Tachycardia Gastrointestinal: Normal Bowel Sounds, Non Tender, Soft Extremity: Normal Capillary Refill, Normal Inspection, Normal Range of Motion Neurologic/Psychiatric: Alert, Oriented x3, No Motor/Sensory Deficits Skin: Normal Color, Warm/Dry Progress/Results/Core Measures Results/Orders Lab Results Laboratory Tests Test 12/15/19 10:35 Range/Units White Blood Count 25.9 H 4.3-11.0 10^3/uL Red Blood Count 4.06 L 4.35-5.85 10^6/uL Hemoglobin 11.5 11.5-16.0 G/DL Hematocrit 38 35-52 % Mean Corpuscular Volume 93 80-99 FL Mean Corpuscular Hemoglobin 28 25-34 PG Mean Corpuscular Hemoglobin Concent 30 L 32-36 G/DL Red Cell Distribution Width 17.0 H 10.0-14.5 % Platelet Count 190 130-400 10^3/uL Mean Platelet Volume 10.3 7.4-10.4 FL Neutrophils (%) (Auto) 95 H 42-75 % Lymphocytes (%) (Auto) 4 L 12-44 % Monocytes (%) (Auto) 1 0-12 % Eosinophils (%) (Auto) 0 0-10 % Basophils (%) (Auto) 0 0-10 % Neutrophils # (Auto) 24.6 H 1.8-7.8 X 10^3 Lymphocytes # (Auto) 0.9 L 1.0-4.0 X 10^3 Monocytes # (Auto) 0.4 0.0-1.0 X 10^3 Eosinophils # (Auto) 0.0 0.0-0.3 10^3/uL Basophils # (Auto) 0.1 0.0-0.1 10^3/uL Sodium Level 141 135-145 MMOL/L Potassium Level 4.5 3.6-5.0 MMOL/L Chloride Level 106 98-107 MMOL/L Carbon Dioxide Level 20 L 21-32 MMOL/L Anion Gap 15 H 5-14 MMOL/L Blood Urea Nitrogen 12 7-18 MG/DL Creatinine 0.78 0.60-1.30 MG/DL Estimat Glomerular Filtration Rate > 60 BUN/Creatinine Ratio 15 Glucose Level 210 H 70-105 MG/DL Calcium Level 9.3 8.5-10.1 MG/DL Corrected Calcium 9.5 8.5-10.1 MG/DL Total Bilirubin 0.4 0.1-1.0 MG/DL Aspartate Amino Transf (AST/SGOT) 21 5-34 U/L Alanine Aminotransferase (ALT/SGPT) 15 0-55 U/L Alkaline Phosphatase 269 H 40-136 U/L Troponin I < 0.028 <0.028 NG/ML B-Type Natriuretic Peptide 721.3 H <100.0 PG/ML Total Protein 7.2 6.4-8.2 GM/DL Albumin 3.8 3.2-4.5 GM/DL My Orders Orders - SELINA AKBAR Troponin I (12/15/19 10:28) Chest 1 View, Ap/Pa Only (12/15/19 10:28) Ekg Tracing (12/15/19 10:28) Ed Iv/Invasive Line Start (12/15/19 10:28) Monitor-Rhythm Ecg Trace Only (12/15/19 10:28) Cbc With Automated Diff (12/15/19 10:28) Comprehensive Metabolic Panel (12/15/19 10:28) BNP (12/15/19 10:28) Diltiazem Injection (Cardizem Injection) (12/15/19 10:30) Diltiazem Drip Pre-Mix (Cardizem Drip Pr (12/15/19 10:30) Metoprolol Succinate (Xl) Tab (Toprol Xl (12/15/19 10:30) Manual Differential (12/15/19 10:35) Ekg Tracing (12/15/19 10:49) Enoxaparin Injection (Lovenox Injection) (12/15/19 11:00) Medications Given in ED Current Medications Medications Dose Ordered Sig/Dino Route Start Time Stop Time Status Last Admin Dose Admin Diltiazem HCl 20 mg ONCE ONCE IVP 12/15/19 10:30 12/15/19 10:34 DC 12/15/19 10:43 20 MG Metoprolol Succinate 100 mg ONCE ONCE PO 12/15/19 10:30 12/15/19 10:34 DC 12/15/19 10:49 100 MG Vital Signs/I&O 12/15/19 10:23 Temp 36.0 Pulse 152 Resp 20 B/P (MAP) 170/112 (131) Pulse Ox 89 O2 Delivery Room Air Progress Progress Note : Time: 10:45 Progress Note Patient appears to be atrial fibrillation and rapid ventricular response. Plan to give her 20 mg Cardizem as her initial blood pressure is 170/110. Heart rates ranging from 140-160. EKG labs to include BMP have been collected. Chest x-ray. She is minorly hypoxic around 90-92% on room air so we gave HER-2 liters by nasal cannula which gave her some significant relief of her shortness of breath. Discussed the case with Dr. Davis he agrees with Cardizem as well as 100 mg Toprol-XL now. He would recommend ICU placement and collect records from latest discharge at [place]. He would recommend an initial dose of weight-based Lovenox if her hemoglobin was good. We did discuss the reason she is not on anticoagulants because of a history of GI bleeds and having to receive transfusions. He will see the patient in the hospital. Initial ECG Impression Date: Dec 15, 2019 Initial ECG Impression Time: 10:25 Initial ECG Rate: 156 Initial ECG Rhythm: A Fib/Flutter Initial ECG Intervals: QT (506) Initial ECG Impression: Atrial Fibrillation w/RVR Initial ECG Comparisson: Changed Comment Atrial fibrillation with rapid ventricular response. EKG : EKG Time: 10:47 Rate: 88 Rhythm: A Fib/Flutter Intervals: QT (658) ECG Comparisson: Changed ECG Impression: Atrial Fibrillation Comment Fully controlled atrial fibrillation with no clinically relevant at ST elevation or depression. Diagnostic Imaging Diagonstic Imaging: Xray Plain Films/CT/US/NM/MRI: chest (1v) Reviewed: Reviewed by Me Departure Communication (Admissions) Time/Spoke to Admitting Phy: 11:18 Discussed the case with Dr. Alba and he agrees to observe her in the ICU on Cardizem drip. Time/Spoke to Consulting Phy: 10:[address] Davis and he recommends Cardizem drip in the ICU, observation, records from [place], metoprolol 100 mg XL now on daily and a dose of Lovenox if her hemoglobin will support. He will see the patient. Impression Primary Impression: Atrial fibrillation with rapid ventricular response Additional Impression: Hypoxia Disposition: ADMITTED INPATIENT Condition: Stable Admissions Decision to Admit Reason: Admit from ER (General) Decision to Admit/Date: Dec 15, 2019 Time/Decision to Admit Time: 10:30 Departure-Patient Inst. Referrals: LITZY SHAFER MD (PCP/Family) Primary Care Physician SELINA AKBAR Dec 15, 2019 10:37
[2019-12-15 10:39] LABS: BASOPHILS # (AUTO) 0.1 10^3/uL (0.0-0.1); BASOPHILS % (AUTO) 0 % (0-10); EOSINOPHILS % (AUTO) 0 % (0-10); HEMATOCRIT 38 % (35-52); HEMOGLOBIN 11.5 G/DL (11.5-16.0); LYMPHOCYTES # (AUTO) 0.9 X 10^3 (1.0-4.0); LYMPHOCYTES % (AUTO) 4 % (12-44); MEAN CORPUSCULAR HEMOGLOBIN 28 PG (25-34); MEAN CORPUSCULAR HGB CONC 30 G/DL (32-36); MEAN CORPUSCULAR VOLUME 93 FL (80-99); MEAN PLATELET VOLUME 10.3 FL (7.4-10.4); MONOCYTES # (AUTO) 0.4 X 10^3 (0.0-1.0); MONOCYTES % (AUTO) 1 % (0-12); NEUTROPHILS # (AUTO) 24.6 X 10^3 (1.8-7.8); NEUTROPHILS % (AUTO) 95 % (42-75); PLATELET COUNT 190 10^3/uL (130-400); WHITE BLOOD COUNT 25.9 10^3/uL (4.3-11.0)
[2019-12-15 10:48] LABS: ALBUMIN 3.8 GM/DL (3.2-4.5); CHLORIDE 106 MMOL/L (98-107); POTASSIUM 4.5 MMOL/L (3.6-5.0); SODIUM 141 MMOL/L (135-145)
[2019-12-15 10:50] LABS: CALCIUM 9.3 MG/DL (8.5-10.1)
[2019-12-15 10:51] LABS: GLUCOSE 210 MG/DL (70-105); TOTAL PROTEIN 7.2 GM/DL (6.4-8.2)
[2019-12-15 10:52] LABS: CARBON DIOXIDE 20 MMOL/L (21-32)
[2019-12-15 10:53] LABS: BILIRUBIN,TOTAL 0.4 MG/DL (0.1-1.0)
[2019-12-15 10:54] LABS: ALKALINE PHOSPHATASE 269 U/L (40-136)
[2019-12-15 10:55] LABS: CREATININE SERUM 0.78 MG/DL (0.60-1.30); GFR ESTIMATED > 60
[2019-12-15 10:56] LABS: BUN/CREATININE RATIO 15
[2019-12-15 10:57] LABS: ALANINE AMINOTRANSFERASE 15 U/L (0-55)
[2019-12-15] MEDS ORDERED: ENOXAPARIN 60 MG/0.6 ML (LOVENOX) SYR SC ONE (11:00)
[2019-12-15 11:20] LABS: ANISOCYTOSIS SLIGHT; BAND NEUTROPHILS 15 %; BASOPHILS % (MANUAL) 0 %; EOSINOPHILS % (MANUAL) 0 %; LYMPHOCYTES % (MANUAL) 2 %; METAMYELOCYTES % 1 %; MONOCYTES % (MANUAL) 0 %; NEUTROPHILS % (MANUAL) 82 %; POLYCHROMASIA SLIGHT
--- NOTE | 2019-12-15 11:32 | NUR ---
MED LIST CHART
--- NOTE | 2019-12-15 11:40 | Diagnostic Imaging Report ---
INDICATION: Cardiac dysrhythmia and dyspnea Single PA view of the chest is obtained with comparison made to study of 10/14/2019 There has been development of moderate to large amount of right pleural fluid with basilar atelectasis and/or pneumonitis, greater on the right. No pneumothorax is identified. Cardiomegaly persists. Surgical changes again noted in the cervical spine with right upper extremity PICC remaining in stable position. IMPRESSION: Basilar atelectasis and/or pneumonitis with increasing right pleural fluid. Dictated by: Dictated on workstation # [id number]
--- NOTE | 2019-12-15 11:45 | Consultation-Cardiology ---
HPI-Cardiology Cardiology Consultation: Date of Consultation 12/15/19 Time Seen by a Provider: 12:00 Date of Admission 12-15-2019 Attending Physician Denisa Esquivel MD Admitting Physician Aakash Santos MD Consulting Physician Eric Davis MD Primary Seasonal Package Handler: Dr. Muhammad, [facility] HPI: Chief Complaint: A-fib with RVR Ms. Hawkins is a 74 year old admitted to ICU 7 from the ED with a-fib with RVR. She states yesterday evening she had a sudden onset of palpitations which persisted all evening and into this morning. She states she did feel SOB and had a cough of white sputum. She denies any CP, syncope or near syncope. She does reports chronic bilat LE swelling which she states has been unchanged and present for "a long time". She has been going for chemo tx with the most recent last week. She reports some diarrhea yesterday. No c/o n/v. She denies any fever or chills. She states she had had endoscopy recently, but unable to recall who did her endoscopy. She states there was no bleeding. She does report any blood in her stool or urine. She reports she has not missed any medication doses. She reports she continues to see Dr. Muhammad. Review of Systems-Cardiology Review of Systems Constitutional: No chills, No fever; malaise Eyes: No vision change Ears/Nose/Throat: No epistaxis, No recent hearing loss Respiratory: As described under HPI Cardiovascular: As described under HPI Gastrointestinal: No constipation; diarrhea; No nausea, No vomiting Genitourinary: dysuria; No hematuria Musculoskeletal: no symptoms reported Skin: No rash on exposed areas, No ulcerations on exposed areas Psychiatric/Neurological: No anxiety, No depression, No seizure, No focal weakness, No syncope Hematologic: No bleeding abnormalities All Other Systems Reviewed Negative Unless Noted: Yes TBN-Oizqnf-Suceqi Hx Patient Social History Alcohol Use: Denies Use Recreational Drug Use: No Smoking Status: Never a Smoker 2nd Hand Smoke Exposure: No Recent Foreign Travel: No Recent Infectious Disease Expo: No Hospitalization with Isolation: Denies Immunizations Up To Date Tetanus Booster (TDap): Unknown Date of Pneumonia Vaccine: Oct 02, 2015 Date of Influenza Vaccine: Jun 01, 2019 Past Medical History PMH As described under Assessment. Family Medical History Family Medical History: Does not report fam h/o early CAD or SCD Allergies and Home Medications Allergies Coded Allergies: Cephalexin Monohydrate (Verified Allergy, Unknown, has tolerated Ancef, 08/03/19) Iodinated Contrast Media (Verified Allergy, Unknown, 10/29/19) Penicillins (Verified Allergy, Unknown, Has tolerated Ancef, 08/03/19) iodine (Verified Allergy, Unknown, 07/08/19) linaclotide (Verified Allergy, Unknown, 07/28/19) lubiprostone (Verified Allergy, Unknown, 07/28/19) venlafaxine HCl (Verified Allergy, Unknown, 07/08/19) Home Medications Acetaminophen 325 Mg Tablet, 650 MG PO Q4H PRN for PAIN-MILD, (Reported) Apixaban 2.5 Mg Tablet, 2.5 MG PO BID Prescribed by: JAMES VELÁSQUEZ on 12/16/19 141 Aspirin 81 Mg Tablet.dr, 81 MG PO DAILY, (Reported) Atorvastatin Calcium 20 Mg Tablet, 20 MG PO HS, (Reported) Baclofen 10 Mg Tablet, 10 MG PO TID PRN for MUSCLE SPASMS, (Reported) Budesonide 0.5 Mg/2 Ml Ampul.neb, 0.5 MG NEB BID PRN for SHORTNESS OF BREATH, (Reported) Calcium Carbonate 600 Mg Tablet, 600 MG PO DAILY, (Reported) Carboxymethylcellulose Sodium 15 Ml Drops, 2 DROPS OU PRN PRN for DRY EYES, (Reported) Carvedilol 6.25 Mg Tablet, 6.25 MG PO BID, (Reported) Cholecalciferol (Vitamin D3) 50 Mcg Capsule, 50 MCG PO DAILY, (Reported) Citalopram Hydrobromide 10 Mg Tablet, 10 MG PO BID, (Reported) Diclofenac Sodium 100 Gm Gel..gram., 2 GR TOP QID PRN for PAIN-BREAKTHROUGH, (Reported) USES ON NECK Diltiazem HCl 120 Mg Cap.er.24h, 120 MG PO DAILY Prescribed by: JAMES VELÁSQUEZ on 12/16/19 1411 Estrogens Conjugated 0.45 Mg Tab, 0.45 MG PO DAILY, (Reported) Famotidine 20 Mg Tablet, 20 MG PO BID, (Reported) Ferrous Sulfate 325 Mg Tablet, 325 MG PO DAILY, (Reported) Furosemide 20 Mg Tablet, 20 MG PO DAILY PRN for SWELLING, (Reported) Ipratropium/Albuterol Sulfate 3 Ml Ampul.neb, 3 ML NEB QID PRN for SHORTNESS OF BREATH, (Reported) Lactobacillus Combo No.10 1 Each Capsule, 1 EACH PO DAILY, (Reported) Metformin HCl 500 Mg Tablet, 500 MG PO 1700 W/DINNER, (Reported) Mirtazapine 15 Mg Tablet, 7.5 MG PO HS, (Reported) TAKES 1/2 (15MG) TABLET Ondansetron HCl 4 Mg Tablet, 4 MG PO Q6H PRN for NAUSEA/VOMITING-1ST LINE, (Reported) Pantoprazole Sodium 40 Mg Tablet.dr, 40 MG PO DAILY, (Reported) Prednisone 20 Mg Tab, 40 MG PO DAILY, (Reported) FILLED 12-14-2019 #10/ DAY SUPPLY Vit A/Vit C/Vit E/Zinc/Copper 1 Each Tablet, 2 TAB PO DAILY, (Reported) [Trimethoprim/Sulfamethoxazole] 1 EA TAB, 1 EA PO BID WITH MEALS Prescribed by: DENISA ESQUIVEL on 12/16/19 1133 Physical Exam-Cardiology Physical Exam Vital Signs/I&O Capillary Refill : Less Than 3 Seconds Constitutional: AAO x 3 HEENT: PERRL, hard of hearing Neck: No carotid bruit; carotid pulses are 2 + bilaterally Respiratory: No accessory muscle use, No respiratory distress; chest expansion is symmetric, chest is bilaterally symmetric, other (good air entry with diminished breath sounds bases) Cardiovascular: irregularly irregular; No JVD; S1 and S2 Gastrointestinal: No tender; soft, round, audible bowel sounds Extremities: significant edema (bilat 2 (+) pitting edema LE) Neurologic/Psychiatric: grossly intact (moves all extremities) Skin: No rash on exposed areas, No ulcerations on exposed areas Data Review Labs Microbiology 12/16/19 Blood Culture - Preliminary, Resulted No growth 12/16/19 Urine Culture - Final, Complete 3 or more isolates 12/15/19 MRSA Screen - Final, Complete MRSA not isolated Radiology NAME: ASAF HAWKINS MED REC#: [id number] PT STATUS: ADM Melanie : 1945 PHYSICIAN: SELINA AKBAR MD ADMIT DATE: 12/15/19/ICU Draft Date of Exam:12/15/19 CHEST 1 VIEW, AP/PA ONLY INDICATION: Cardiac dysrhythmia and dyspnea Single PA view of the chest is obtained with comparison made to study of 10/14/2019 There has been development of moderate to large amount of right pleural fluid with basilar atelectasis and/or pneumonitis, greater on the right. No pneumothorax is identified. Cardiomegaly persists. Surgical changes again noted in the cervical spine with right upper extremity PICC remaining in stable position. IMPRESSION: Basilar atelectasis and/or pneumonitis with increasing right pleural fluid. Dictated on workstation # [id number] Dict: 12/15/19 1137 Trans: 12/15/[address] [facility] [id number] Interpreted by: RBITTNEY JAY MD Electronically signed by: ECG Impression ECG Initial ECG Impression: Atrial Fibrillation w/RVR A/P-Cardiology Assessment/Admission Diagnosis PAF with RVR H/O anemia of undetermined etiology which has required multiple transfusions in the past (she reports chronic anemia for which she has had multiple eval in the past with unknown cause). Previous stool positive for occult blood during previous admission of Aug 2019 H/o PAF that has chronically been treated with flecainide (managed by Dr. Muhammad at [facility]) Non-Hodgkin B-cell lymphoma - follows with Dr. Payne of oncology services - receiving chemo tx Chronic HFpEF SSS. Intermittent wandering atrial pacemaker during this admission of Aug 2019. OAC has been withheld d/t because of severe anemia of undetermined etiology (per recs of hospitalist during previous admission earlier this month) Echo of 07/11/19: LVEF 60-65%, mild MR, mod AI, mild to mod TR, grade 2 mccullough dysfunction, RVSP 47 mmHg MPI of Jul 13, 2019 showed no evidence of ischemia/infarction; LVEF 67% Discussion and Recomendations PAF with RVR - treated with IV Cardizem and oral BB Previously on on OAC d/t h/o GIB in the past, however, none reported recently. We advise starting OAC with low dose Eliquis d/t reasons noted above. If she is able to tolerate low dose, then we advise increasing her to full dose if no evidence of bleeding and if ok with medical services I have discussed all of the above with her in detail. She is agreeable to Eliquis Monitor lab closely Request records from [facility], Dr. Muhammad Further recs will be based on her hospital course We would like to thank medical services for this consult DAVINA TRONCOSO Dec 15, 2019 11:45
--- OUTSIDE RECORDS SUMMARY | 2019-12-15 11:56 | XMS REPORT | Continuity of Care Document ---
Author Organization Unknown Address Unknown Phone Unavailable Allergies Active Description Code Type Severity Reaction Onset Reported/Identified Relationship to Patient Clinical Status Yes Cephalexin Monohydrate [id number] Drug Allergy Unknown N/A 07/08/2019 Yes iodine [id number] Drug Allergy Unknown N/A 07/08/2019 Yes Penicillins [id number] Drug Aller gy Unknown N/A 07/08/2019 Yes prednisone [id number] Drug Allerg y Unknown N/A 07/08/2019 Yes venlafaxine HCl [id number] D rug Allergy Unknown N/A 07/08/2019 Yes linaclotide [id number] Drug Aller gy Unknown N/A 07/28/2019 Yes lubiprostone [id number] Drug Allergy Unknown N/A 07/28/2019 Yes Cephalexin Monohydrate [id number] Drug Allergy Unknown has tolerated A 10/2018 Yes Penicillins [id number] Drug Aller gy Unknown Has tolerated A 08/03/2019 Yes Iodinated Contrast Media [id number] Drug Allergy Unknown N/A 10/29/2019 Medications There [...] ADUL 07/12/2019 GISEL FLOYD MD, Ot Z79.01 CORRECTION (CURRENT) USE OF ANTICOAGULANT 07/12/2019 GISEL FLOYD MD Ot Z79.82 CORRECTION (CURRENT) USE OF ASPIRIN 07/12/2019 GISEL FLOYD [...] INFECTION, SITE NOT SPECIF 07/22/2019 KALPANA PACHECO VOICE WRITING REPORTER Ot D64.9 ANEMIA, UNSPECIFIED 07/26/2019 KALPANA PACHECO R VOICE WRITING REPORTER Ot D64.9 ANEMIA, UNSPECIFIED 07/27/2019 DAVINA TRONCOSO EDUCATION TRAINER Ot R06.00 DYSPNEA, UNSPECIFIED 07/27/2019 DAVINA TORNCOSO EDUCATION TRAINER Ot R06.02 SHORTNESS OF BREATH 07/27/2019 BALBIR [...] 07/28/2019 DENISA ESQUIVEL MD Ot Z79. 84 PRACTICAL NURSING INSTRUCTOR (CURRENT) USE OF ORAL HYPOGLYC 07/28/2019 DENISA [...] 07/29/2019 DENISA ESQUIVEL MD Ot Z79. 84 CORRECTION (CURRENT) USE OF ORAL HYPOGLYC 07/29/2019 DENISA [...] 07/30/2019 DENISA ESQUIVEL MD Ot Z79. 84 CORRECTION (CURRENT) USE OF ORAL HYPOGLYC 07/30/2019 DENISA [...] 07/30/2019 DENISA ESQUIVEL MD, Ot Z79. 84 CORRECTION (CURRENT) USE OF ORAL HYPOGLYC 07/30/2019 DENISA [...] 07/30/2019 DENISA ESQUIVEL MD Ot Z79. 84 CORRECTION (CURRENT) USE OF ORAL HYPOGLYC 07/30/2019 DENISA [...] 07/31/2019 DENISA ESQUIVEL MD Ot Z79. 84 CORRECTION (CURRENT) USE OF ORAL HYPOGLYC 07/31/2019 DENISA [...] 07/31/2019 DENISA ESQUIVEL MD Ot Z79. 84 PRACTICAL NURSING INSTRUCTOR (CURRENT) USE OF ORAL HYPOGLYC 07/31/2019 DENISA [...] 08/01/2019 DENISA ESQUIVEL MD Ot Z79. 84 CORRECTION (CURRENT) USE OF ORAL HYPOGLYC 08/01/2019 DENISA [...] 08/02/2019 DENISA ESQUIVEL MD Ot Z79. 84 PRACTICAL NURSING INSTRUCTOR (CURRENT) USE OF ORAL HYPOGLYC 08/02/2019 DENISA [...] 08/02/2019 DENISA ESQUIVEL MD Ot Z79. 84 CORRECTION (CURRENT) USE OF ORAL HYPOGLYC 08/02/2019 DENISA [...] 08/02/2019 DENISA ESQUIVEL MD Ot Z79. 84 PRACTICAL NURSING INSTRUCTOR (CURRENT) USE OF ORAL HYPOGLYC 08/02/2019 DENISA EQSUIVEL MD Ot Z99. 81 DEPENDENCE ON SUPPLEMENTAL [...] 08/03/2019 DENISA ESQUIVEL MD Ot Z79. 84 PRACTICAL NURSING INSTRUCTOR (CURRENT) USE OF ORAL HYPOGLYC 08/03/2019 DENISA [...] 08/03/2019 DENISA ESQUIVEL MD Ot Z79. 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 84 CORRECTION (CURRENT) USE OF ORAL HYPOGLYC 08/04/2019 DENISA [...] 08/04/2019 DENISA ESQUIVEL MD Ot Z79. 84 CORRECTION (CURRENT) USE OF ORAL HYPOGLYC 08/04/2019 DENISA [...] ESQUIVEL MD Ot E87. 6 HYPOKALEMIA 08/04/2019 DENIAS ESQUIVEL MD Ot F32. 9 MAJOR DEPRESSIVE [...] 08/04/2019 DENISA ESQUIVEL MD Ot Z79. 84 CORRECTION (CURRENT) USE OF ORAL HYPOGLYC 08/04/2019 DENISA [...] 08/04/2019 DENISA ESQUIVEL MD Ot Z79. 84 CORRECTION (CURRENT) USE OF ORAL HYPOGLYC 08/04/2019 DENISA [...] 08/05/2019 DENISA ESQUIVEL MD Ot Z79. 84 CORRECTION (CURRENT) USE OF ORAL HYPOGLYC 08/05/2019 DENISA [...] 08/06/2019 DENISA ESQUIVEL MD Ot Z79. 84 PRACTICAL NURSING INSTRUCTOR (CURRENT) USE OF ORAL HYPOGLYC 08/06/2019 DENISA [...] 08/07/2019 DENISA ESQUIVEL MD Ot Z79. 84 CORRECTION (CURRENT) USE OF ORAL HYPOGLYC 08/07/2019 DENISA [...] 08/08/2019 DENISA ESQUIVEL MD Ot Z79. 84 PRACTICAL NURSING INSTRUCTOR (CURRENT) USE OF ORAL HYPOGLYC 08/08/2019 DENISA [...] 08/08/2019 DENISA ESQUIVEL MD Ot Z79. 84 CORRECTION (CURRENT) USE OF ORAL HYPOGLYC 08/08/2019 DENISA [...] 08/08/2019 DENISA ESQUIVEL MD Ot Z79. 84 CORRECTION (CURRENT) USE OF ORAL HYPOGLYC 08/08/2019 DENISA [...] K92. 2 GASTROINTESTINAL HEMORRHAGE, UNSPECIFIED 08/09/2019 DENISA ESQUIVEL MD Ot M06. 9 RHEUMATOID ARTHRITIS, UNSPECIFIED 08/09/2019 DENISA ESQUIVEL MD Ot R13. 10 DYSPHAGIA, UNSPECIFIED 08/09/2019 DENISA ESQUIVEL MD Ot R41. 82 ALTERED MENTAL STATUS, UNSPECIFIED 08/09/2019 DENISA ESQUIVEL MD Ot R65. 20 SEVERE SEPSIS WITHOUT SEPTIC SHOCK 08/09/2019 DENISA ESQUIVEL MD Ot Z66 DO NOT RESUSCITATE 08/09/2019 DENISA ESQUIVEL MD Ot Z79. 84 CORRECTION (CURRENT) USE OF ORAL HYPOGLYC 08/09/2019 DENISA [...] 08/10/2019 DENISA ESQUIVEL MD Ot Z79. 84 PRACTICAL NURSING INSTRUCTOR (CURRENT) USE OF ORAL HYPOGLYC 08/10/2019 DENISA [...] 08/11/2019 DENISA ESQUIVEL MD Ot Z79. 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 84 PRACTICAL NURSING INSTRUCTOR (CURRENT) USE OF ORAL HYPOGLYC 08/11/2019 DENISA [...] TYPE 2 DIABETES MELLITUS WITHOUT COMPLIC 08/11/2019 DENIAS ESQUIVEL MD Ot E83. 39 OTHER DISORDERS [...] 08/11/2019 DENISA ESQUIVEL MD Ot Z79. 84 CORRECTION (CURRENT) USE OF ORAL HYPOGLYC 08/11/2019 DENISA EQSUIVEL MD Ot Z99. 81 DEPENDENCE ON SUPPLEMENTAL OXYGEN 09/08/2019 DAVINA TRONCOSO EDUCATION TRAINER Ot R06.00 DYSPNEA, UNSPECIFIED 09/08/2019 BAIMA, DAVINA L EDUCATION TRAINER Ot R06.02 SHORTNESS OF BREATH 09/08/2019 STEPHANI MADISON, FACUNDO L Ot D64.9 ANEMIA, UNSPECIFIED 09/08/2019 STEPHANI MADISON, FACUNDO L Ot N39.0 URINARY TRACT INFECTION, SITE NOT SPECIF 09/08/2019 BAIMA, DAVINA L EDUCATION TRAINER Ot R06.00 DYSPNEA, UNSPECIFIED 09/08/2019 BAIMA, DAVINA L EDUCATION TRAINER Ot R06.02 SHORTNESS OF BREATH 09/08/2019 BAIMA, DAVINA L EDUCATION TRAINER Ot R06.00 DYSPNEA, UNSPECIFIED 09/08/2019 BAIMA, DAVINA L EDUCATION TRAINER Ot R06.02 SHORTNESS OF BREATH 09/08/2019 STEPHANI MADISON, FACUNDO L Ot D64.9 ANEMIA, UNSPECIFIED 09/08/2019 STEPHANI MADISON, FACUNDO L Ot N39.0 URINARY TRACT INFECTION, SITE NOT SPECIF 09/23/2019 STEPHANI MADISON, FACUNDO L Ot D64.9 ANEMIA, UNSPECIFIED 09/23/2019 STEPHANI MADISON, FACUNDO L Ot J18.9 PNEUMONIA, [...] UNSPECIFIED 10/16/2019 APARNA KING MD Ot Z79.84 CORRECTION (CURRENT) USE OF ORAL HYPOGLYC 10/16/2019 APARNA KING MD Ot Z88.0 ALLERGY STATUS TO PENICILLIN 10/16/2019 APARNA KING MD Ot Z88.1 ALLERGY STATUS TO OTHER ANTIBIOTIC AGENT 10/16/2019 APARNA KING MD Ot Z92.21 PERSONAL HISTORY OF ANTINEOPLASTIC CHEMO 10/25/2019 DAVINA TRONCOSO EDUCATION TRAINER Ot R06.00 DYSPNEA, UNSPECIFIED 10/25/2019 DAVINA TRONCOSO L EDUCATION TRAINER Ot R06.02 SHORTNESS OF BREATH 10/26/2019 HOLLIS FINLEY, LITZY Wolfe Ot Z12.3 1 ENCNTR SCREEN MAMMOGRAM FOR MALIGNANT NE 10/29/2019 DAVINA TRONCOSO EDUCATION TRAINER Ot R06.00 DYSPNEA, UNSPECIFIED 10/29/2019 DAVINA TRONCOSO L EDUCATION TRAINER Ot R06.02 SHORTNESS OF BREATH 11/01/2019 PRISCILLA PRITCHARDP Ot 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, EXTRNOD A 11/01/2019 PRISCILLA PRITCHARD EDUCATION TRAINER Ot Z53.9 PROCEDURE AND TREATMENT NOT CARRIED OUT, 11/03/2019 FACUNDO ARREOLA Ot M54.2 CERVICALGIA 11/03/2019 FACUNDO ARREOLA Ot R 51 HEADACHE 11/03/2019 FACUNDO ARREOLA Ot Z98.1 ARTHRODESIS STATUS 11/04/2019 PRISCILLA PRITCHARD S EDUCATION TRAINER Ot 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, EXTRNOD A 11/04/2019 PRISCILLA PRITCHARD S EDUCATION TRAINER Ot Z01.89 ENCOUNTER FOR OTHER SPECIFIED SPECIAL EX 11/10/2019 CRHISS BOBAN N Ot 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, LYMPH NODES OF AXI 11/10/2019 CHRISS BOBAN N Ot Z51.11 ENCOUNTER FOR ANTINEOPLASTIC CHEMOTHERAP 11/15/2019 CHRISS BOBAN N Ot 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, LYMPH NODES OF AXI 11/15/2019 CHRISS BOBAN N Ot Z51.11 ENCOUNTER FOR ANTINEOPLASTIC CHEMOTHERAP 11/19/2019 CHRISS BOBAN N Ot 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, LYMPH NODES OF AXI 11/25/2019 PRISCILLA PRITCHARD S EDUCATION TRAINER Ot 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, EXTRNOD A 11/25/2019 PRISCILLA PRITCHARD S EDUCATION TRAINER Ot Z01.89 ENCOUNTER FOR OTHER SPECIFIED SPECIAL [...] Code Description Performed By Per formed On 42L76CC EX CISION OF LEFT AXILLARY LYMPHATIC, OPE 08/02/[address] [place] OF RIGHT PLEURAL CAVITY, PERC [...] INFLUENZA A AND B ANTIGENS BY IA [facility] Manual absolute plasma cell count - 03/19 [...] culture - 07/08/19 19:18 Bacterial urine culture [id number] NRG COLONY COUNT >100,000/ML NRG FTX;REPORTABLE SUSCEPTIBILITY [...] pa erlin - 07/08/19 20:40 WRISTBAND NUMBER [id number] NRG ABO+Rh group BP NRG Blood group [...] NR Blood type T Indirect antibody screen [facility] 07/16/19 09:30 WRISTBAND NUMBER [id number] NRG ABO+Rh group BP NRG Blood group antibody screen NEGATIVE NR G Whole blood hemoglobin and hematocrit [facility] 07/16/19 14:25 Venous blood hemoglobin measurement (mass/volume) 7.7 g/dL 11.5-16.0 Blood hematocrit (volume fraction) 24 % 35-52 RED CELLS LEUKO REDUCED AS1 - 07/22/19 0 8:32 RED CELLS LEUKO REDUCED AS1 T RANSFUSED 07/22/19 0958 NRG Blood type T Indirect antibody screen [facility] - 07/22/19 08:32 WRISTBAND NUMBER [id number] NRG ABO+Rh group BP NRG Blood group antibody screen NEGATIVE NR G Whole blood hemoglobin and hematocrit [facility] - 07/22/19 15:40 Venous blood hemoglobin measurement [...] OF GROWTH Isolated NRG Bacterial blood culture [id number] NRG Influenza virus A and B antigen [...] NRG Blood type T Indirect antibody screen [facility] - 07/27/19 18:20 WRISTBAND NUMBER [id number] NRG ABO+Rh group BP NRG Blood group antibody screen NEGATIVE NR G Methicillin resistant Staphylococcus aur eus (MRSA) screening culture - 07/27/19 19:20 Methicillin resistant Staphylococcus aureus (MRSA) scr eening culture NEG NRG Whole blood hemoglobin and hematocrit [facility] - 07/28/19 01:38 Venous blood hemoglobin measurement [...] - 07/29/19 16:40 Bacterial blood culture NG [facility] ANTI-NUCLEAR AB (SASHA) ANALYZER - 9 16:40 [...] NRG Blood type T Indirect antibody screen [facility] - 08/01/19 12:03 WRISTBAND NUMBER [id number] NRG ABO+Rh group BP NRG Blood group antibody screen NEGATIVE NR G RED CELLS LEUKO REDUCED AS1 - 08/01/19 1 2:03 RED CELLS LEUKO REDUCED AS1 T RANSFUSED 08/02/19 2214 NRG Blood type T Indirect antibody screen [facility] - 08/01/19 12:03 WRISTBAND NUMBER [id number] NRG ABO+Rh group BP NRG Blood group [...] culture - 08/03/19 06:58 Bacterial urine culture [id number] NRG COLONY COUNT 80,000 CFU/ML NRG Capillary [...] pa erlin - 08/04/19 17:00 WRISTBAND NUMBER [id number] NRG ABO+Rh group BP NRG Blood group [...] Blood macrocytes detection by light microscopy SLI [facility] NR Blood toxic granules detection by light microscopy 2+ NRG Manual blood metamyelocytes/100 leukocytes 1 % NRG Blood microcytes detection by light microscopy I [facility] NRG Whole blood basic metabolic panel - [...] IGM Non-Reactive N on-Reactive HEPATITIS B CORE CELESTE IGM Non-Reactive N on-Reactive Confirmatory quantitative serum [...] culture - 08/08/19 16:25 Bacterial urine culture [id number] NRG COLONY COUNT 30,000 CFU/ML NRG FTX;REPORTABLE [...] pa erlin - 08/09/19 18:21 WRISTBAND NUMBER [id number] NRG ABO+Rh group BP NRG Blood group [...] INFLUENZA A AND B ANTIGENS BY IA [facility] Manual absolute plasma cell count - 10/02 [...] culture - 10/14/19 18:15 Bacterial urine culture [id number] NRG COLONY COUNT 40,000 CFU/ML NRG FTX;REPORTABLE [...] plasma calcium measurement (mass/volume) 8.7 mg/dL 8.5-10.1 Complete blood count (CBC) with automate d white blood cell (WBC) differential - 12/15/19 10:35 Blood leukocytes automated count (number/volume) 25.9 10*3/uL 4.3-11.0 Blood erythrocytes automated count (number/volume) 4.06 10*6/uL 4.35-5.85 Venous blood hemoglobin measurement (mass/volume) 11.5 g/dL 11.5-16.0 Blood hematocrit (volume fraction) 38 % 35-52 Automated erythrocyte mean corpuscular volume 93 [ foz_us] 80-99 Automated erythrocyte mean corpuscular h emoglobin (mass per erythrocyte) 28 pg 25-34 Automated erythrocyte mean corpuscular h emoglobin concentration measurement (mass/volume) 30 g/dL 32-36 Automated erythrocyte distribution width ratio 17. 0 % 10.0- 14.5 Automated blood platelet count (count/volume) 190 10*3/uL 130-400 Automated blood platelet mean volume measurement 10.3 [foz_us] 7.4-10.4 Automated blood neutrophils/100 leukocytes 95 % 42-75 Automated blood lymphocytes/100 leukocytes 4 % 12-44 Blood monocytes/100 leukocytes 1 % 0-12 Automated blood eosinophils/100 leukocytes 0 % 0-10 Automated blood basophils/100 leukocytes 0 % 0-10 Blood neutrophils automated count (number/volume) 24.6 10*3 1.8-7.8 Blood lymphocytes automated count (number/volume) 0.9 10*3 1.0-4.0 Blood monocytes automated count (number/volume) 0. 4 10*3 0.0-1.0 Automated eosinophil count 0.0 10*3/uL 0 .0-0.3 Automated blood basophil count (count/volume) 0.1 10*3/uL 0.0-0.1 Comprehensive metabolic panel - 12/15/19 10:35 Serum or plasma sodium measurement (moles/volume) 141 mmol/L 135-145 Serum or plasma potassium measurement (moles/volume) 4.5 mmol/L 3.6-5.0 Serum or plasma chloride measurement (moles/volume) 106 mmol/L 98-107 Carbon dioxide 20 mmol/L 21-32 Serum or plasma anion gap determination (moles/volume) 15 mmol/L 5-14 Serum or plasma urea nitrogen measurement (mass/volume ) 12 mg/dL 7-18 Serum or plasma creatinine measurement (mass/volume) 0.78 mg/dL 0.60-1.30 Serum or plasma urea nitrogen/creatinine mass ratio 15 NRG Serum or plasma creatinine measurement w ith calculation of estimated glomerular filtration rate > NRG Serum or plasma glucose measurement (mass/volume) 210 mg/dL 70-105 Serum or plasma calcium measurement (mass/volume) 9.3 mg/dL 8.5-10.1 Serum or plasma total bilirubin measurement (mass/volu me) 0.4 mg/dL 0.1-1.0 Serum or plasma alkaline phosphatase charles surement (enzymatic activity/volume) 269 U/L 40-136 Serum or plasma aspartate aminotransfera se measurement (enzymatic activity/volume) 21 U/L 5-34 Serum or plasma alanine aminotransferase measurement (enzymatic activity/volume) 15 U/L 0-55 Serum or plasma protein measurement (mass/volume) 7.2 g/dL 6.4-8.2 Serum or plasma albumin measurement (mass/volume) 3.8 g/dL 3.2-4.5 CALCIUM CORRECTED 9.5 mg/dL 8.5-10.1 Serum or plasma troponin i.cardiac measu rement (mass/volume) - 12/15/19 10:35 Serum or plasma troponin i.cardiac measurement (mass/v olume) < ng/mL <0.028 Serum or plasma lithium measurement (mol es/volume) - 12/15/19 10:35 BNP PT 721.3 pg/mL <100.0 Manual absolute plasma cell count - 11/30 01/18 10:35 Blood monocytes/100 leukocytes 0 % NRG Manual blood segmented neutrophils/100 leukocytes 82 % NRG Blood band neutrophils/100 leukocytes 15 % NRG Manual blood lymphocytes/100 leukocytes 2 % NRG Manual eosinophils/100 leukocytes in nose 0 % NRG Manual blood basophils/100 leukocytes 0 % NRG Blood polychromasia detection by light microscopy SLIGHT NRG Blood anisocytosis detection by light microscopy S LIGHT NRG Manual blood metamyelocytes/100 leukocytes 1 % NRG Encounters ACCT No. Visit Date/Time Discharge Status Pt. Type Provider Facility Loc./Unit Complaint [id number] 12/09/2019 09:30:00 23:59:59 CLS Outpatient LEEROY BANERJEE V ia [facility] ONC [id number] 11/05/2019 15:21:00 00:01:00 DIS Outpatient LEEROY BANERJEE V ia [facility] ONC [id number] 11/02/2019 10:49:00 23:59:59 CLS Outpatient PRISCILLA PRITCHARD Via [facility] RAD ENCOUNTER FOR I MAGING STUDY TO RESTAGE [id number] 11/01/2019 15:59:00 23:59:59 CLS Outpatient FACUNDO ARREOLA [facility] RAD NECK PAIN [id number] 10/29/2019 09:13:00 23:59:59 CLS Outpatient PRISCILLA PRITCHARD [facility] RAD LARGE BCELL LYM PHOMA [id number] 10/14/2019 20:10:00 13:24:00 DIS Inpatient CHRISTINE FINLEY, APARNA Cordova Via [facility] 4TH RLL PNA,SEPSIS [id number] 09/27/2019 11:27:00 23:59:59 CLS Outpatient LITZY SHAFER MD [facility] RAD SCREENING [id number] 07/27/2019 16:25:00 16:01:00 DIS Inpatient SIERRA FINLEY, DENISA Cordova Via [facility] 4TH SEVERE SEPSIS; PNEUMONI A; HYPOKALEMIA; AMS [id number] 07/22/2019 07:45:00 16:10:00 DIS Outpatient KALPANA PACHECO APRN [facility] ANEMIA [id number] 07/16/2019 08:59:00 14:55:00 [facility] [id number] 07/14/2019 18:03:00 23:59:59 CLS Outpatient FACUNDO ARREOLA Via [facility] CVS [id number] 07/13/2019 06:49:00 23:59:59 CLS Outpatient DAVINA TRONCOSO [facility] CARD DYSPNEA [id number] 07/08/2019 20:30:00 14:30:00 DIS Inpatient GISEL FLOYD MD [facility] CSD UTI,SEPSIS,SEVER ANEMIA,NIDDM,HYPOMAGNESIUM,HYPOCA [id number] 12/15/2019 10:40:00 Document Registration
--- NOTE | 2019-12-15 12:21 | NUR ---
CALL AND GAVE UPDATE TO KRISTEN JEB. Addendum: 12/15/19 at 1226 by [email or web address] [phone] KRISTEN DAUGHTER CELL PHONE
[2019-12-15] MEDS ORDERED: CATHETER FLUSH 10 ML SYR IV PRN (12:45)
[2019-12-15] MEDS ORDERED: ONDANSETRON 4 MG/2 ML (SDV) Z0FRAN IV PRN ×2 (12:45→14:15)
[2019-12-15] MEDS ORDERED: BACL10TA PO (13:02)
[2019-12-15] MEDS: dilTIAZem DRIP 125 MG/125 ML DRIP IV SCH (13:11)
[2019-12-15] MEDS ORDERED: CALC600T12 PO (13:11)
[2019-12-15] MEDS ORDERED: CHOL2000 PO (13:11)
[2019-12-15] MEDS ORDERED: FERR325T18 PO (13:11)
[2019-12-15] MEDS ORDERED: CARB15DR OU (13:11)
[2019-12-15] MEDS ORDERED: DICL100G31 TOP (13:14)
[2019-12-15] MEDS ORDERED: PRD20T PO (13:16)
--- NOTE | 2019-12-15 13:17 | NUR ---
SPOKE WITH THE PT (SHE HAD A MED LIST IN HER CHART) AND WENT THRU THE EXT MED HISTORY TO COMPLETE THE MED REC ALL MEDICATIONS WERE ON THE EXT MED HISTORY AND THE PT WAS ABLE TO TELL ME HOW/WHEN SHE TAKES EACH ONE OTC MEDS: PROBIOTIC CALCIUM ASPIRIN 81 IRON PRESERVISION VIT D REFRESH DROPS TYLENOL
[2019-12-15] MEDS ORDERED: LACT1CAP72 PO (13:19)
[2019-12-15] MEDS ORDERED: polyethylene glycoL POWDER 17 GM (MIRALAX) PACK PO PRN (14:15)
[2019-12-15] MEDS ORDERED: ONDANSETRON 4 MG (ZOFRAN) ORAL DISSOLVE TAB PO PRN (14:15)
[2019-12-15] MEDS ORDERED: MELATONIN 3 MG TABLET PO PRN (14:15)
[2019-12-15] MEDS ORDERED: ANTACID SUSP 30 ML UDC (MYLANTA) PO PRN (14:15)
[2019-12-15] MEDS: ACETAMINOPHEN 325 MG TABLET PO PRN ×2 (14:36→23:39)
[2019-12-15] MEDS: CATHETER FLUSH 10 ML SYR IV SCH ×2 (14:50→23:40)
[2019-12-15] MEDS: inSUlin ASPART (NovoLOG) 1 UNIT/0.01 ML (CHARGE PER UNIT) SC SCH ×2 (16:16→20:39)
--- NOTE | 2019-12-15 18:14 | Consultation-Cardiology ---
HPI-Cardiology Cardiology Consultation: Date of Consultation 12/15/19 Time Seen by a Provider: 16:45 Date of Admission Attending Physician Ivelisse Alba MD Admitting Physician Aakash Santos MD Consulting Physician ANA FINLEY MD, MA, FACP, FACC, FSCAI, CCDS Primary rn acute care: Dr Muhammad HPI: Chief Complaint: Reason for consultation: A-fib with RVR HPI Ms. Hawkins is a 74 year old admitted to ICU 7 from the ED with a-fib with RVR. She states yesterday evening she had a sudden onset of palpitations which persisted all evening and into this morning. She states she did feel SOB and had a cough of white sputum. She denies any CP, syncope or near syncope. She does reports chronic bilat LE swelling which she states has been unchanged and present for "a long time". She has been going for chemo tx with the most recent last week. She reports some diarrhea yesterday. No c/o n/v. She denies any fever or chills. She states she had had endoscopy recently, but unable to recall who did her endoscopy. She states there was no bleeding. She does report any blood in her stool or urine. She reports she has not missed any medication doses. She reports she continues to see Dr. Muhammad. Review of Systems-Cardiology Review of Systems Constitutional: No chills, No fever; malaise Eyes: No vision change Ears/Nose/Throat: No epistaxis, No recent hearing loss Respiratory: As described under HPI Cardiovascular: As described under HPI Gastrointestinal: No constipation; diarrhea; No nausea, No vomiting Genitourinary: dysuria; No hematuria Musculoskeletal: no symptoms reported Skin: No rash on exposed areas, No ulcerations on exposed areas Psychiatric/Neurological: No anxiety, No depression, No seizure, No focal weakness, No syncope Hematologic: No bleeding abnormalities All Other Systems Reviewed Negative Unless Noted: Yes PCF-Plnfjs-Hsmkhp Hx Patient Social History Alcohol Use: Denies Use Recreational Drug Use: No Smoking Status: Never a Smoker 2nd Hand Smoke Exposure: No Recent Foreign Travel: No Recent Infectious Disease Expo: No Hospitalization with Isolation: Denies Immunizations Up To Date Tetanus Booster (TDap): Unknown Date of Pneumonia Vaccine: Oct 02, 2015 Date of Influenza Vaccine: Jun 01, 2019 Past Medical History PMH As described under Assessment. Family Medical History Family Medical History: Does not report fam h/o early CAD or SCD Allergies and Home Medications Allergies Coded Allergies: Cephalexin Monohydrate (Verified Allergy, Unknown, has tolerated Ancef, 08/03/19) Iodinated Contrast Media (Verified Allergy, Unknown, 10/29/19) Penicillins (Verified Allergy, Unknown, Has tolerated Ancef, 08/03/19) iodine (Verified Allergy, Unknown, 07/08/19) linaclotide (Verified Allergy, Unknown, 07/28/19) lubiprostone (Verified Allergy, Unknown, 07/28/19) venlafaxine HCl (Verified Allergy, Unknown, 07/08/19) Home Medications Acetaminophen 325 Mg Tablet, 650 MG PO Q4H PRN for PAIN-MILD, (Reported) Aspirin 81 Mg Tablet.dr, 81 MG PO DAILY, (Reported) Atorvastatin Calcium 20 Mg Tablet, 20 MG PO HS, (Reported) Baclofen 10 Mg Tablet, 10 MG PO TID PRN for MUSCLE SPASMS, (Reported) Budesonide 0.5 Mg/2 Ml Ampul.neb, 0.5 MG NEB BID PRN for SHORTNESS OF BREATH, (Reported) Calcium Carbonate 600 Mg Tablet, 600 MG PO DAILY, (Reported) Carboxymethylcellulose Sodium 15 Ml Drops, 2 DROPS OU PRN PRN for DRY EYES, (Reported) Carvedilol 6.25 Mg Tablet, 6.25 MG PO BID, (Reported) Cholecalciferol (Vitamin D3) 50 Mcg Capsule, 50 MCG PO DAILY, (Reported) Citalopram Hydrobromide 10 Mg Tablet, 10 MG PO BID, (Reported) Diclofenac Sodium 100 Gm Gel..gram., 2 GR TOP QID PRN for PAIN-BREAKTHROUGH, (Reported) USES ON NECK Estrogens Conjugated 0.45 Mg Tab, 0.45 MG PO DAILY, (Reported) Famotidine 20 Mg Tablet, 20 MG PO BID, (Reported) Ferrous Sulfate 325 Mg Tablet, 325 MG PO DAILY, (Reported) Flecainide Acetate 100 Mg Tablet, 100 MG PO BID, (Reported) Furosemide 20 Mg Tablet, 20 MG PO DAILY PRN for SWELLING, (Reported) Ipratropium/Albuterol Sulfate 3 Ml Ampul.neb, 3 ML NEB QID PRN for SHORTNESS OF BREATH, (Reported) Lactobacillus Combo No.10 1 Each Capsule, 1 EACH PO DAILY, (Reported) Metformin HCl 500 Mg Tablet, 500 MG PO 1700 W/DINNER, (Reported) Mirtazapine 15 Mg Tablet, 7.5 MG PO HS, (Reported) TAKES 1/2 (15MG) TABLET Ondansetron HCl 4 Mg Tablet, 4 MG PO Q6H PRN for NAUSEA/VOMITING-1ST LINE, (Reported) Pantoprazole Sodium 40 Mg Tablet.dr, 40 MG PO DAILY, (Reported) Prednisone 20 Mg Tab, 40 MG PO DAILY, (Reported) FILLED 12-14-2019 #10/ DAY SUPPLY Vit A/Vit C/Vit E/Zinc/Copper 1 Each Tablet, 2 TAB PO DAILY, (Reported) Patient Home Medication List Home Medication List Reviewed: Yes Physical Exam-Cardiology Physical Exam Vital Signs/I&O 12/15/19 12/15/19 12/15/19 12/15/19 10:23 11:39 12:00 12:00 Temp 36.0 Pulse 152 68 66 Resp 20 18 26 B/P (MAP) 170/112 (131) 151/55 165/80 (108) Pulse Ox 89 96 98 96 O2 Delivery Room Air Nasal Cannula Nasal Cannula O2 Flow Rate 2.00 2.00 12/15/19 12/15/19 12/15/19 12/15/19 12:25 13:00 14:00 15:00 Pulse 66 70 92 70 Resp 15 28 20 B/P (MAP) 145/86 (105) 153/88 (109) 141/57 (85) Pulse Ox 97 93 95 O2 Delivery Nasal Cannula Nasal Cannula Nasal Cannula O2 Flow Rate 2.00 2.00 2.00 12/15/19 12/15/19 12/15/19 16:00 16:17 17:00 Pulse 57 71 Resp 26 30 B/P (MAP) 154/73 (100) 148/68 (94) Pulse Ox 94 97 98 O2 Delivery Nasal Cannula Nasal Cannula Nasal Cannula O2 Flow Rate 2.00 2.00 2.00 Capillary Refill : Less Than 3 Seconds Constitutional: AAO x 3 HEENT: PERRL, hard of hearing Neck: No carotid bruit; carotid pulses are 2 + bilaterally Respiratory: No accessory muscle use, No respiratory distress; chest expansion is symmetric, chest is bilaterally symmetric, other (good air entry with diminished breath sounds bases) Cardiovascular: irregularly irregular; No JVD; S1 and S2 Gastrointestinal: No tender; soft, round, audible bowel sounds Extremities: significant edema (bilat 2 (+) pitting edema LE) Neurologic/Psychiatric: grossly intact (moves all extremities) Skin: No rash on exposed areas, No ulcerations on exposed areas Data Review Labs Laboratory Tests 12/15/19 10:35: White Blood Count 25.9H, Red Blood Count 4.06L, Hemoglobin 11.5, Hematocrit 38, Mean Corpuscular Volume 93, Mean Corpuscular Hemoglobin 28, Mean Corpuscular Hemoglobin Concent 30L, Red Cell Distribution Width 17.0H, Platelet Count 190, Mean Platelet Volume 10.3, Neutrophils (%) (Auto) 95H, Lymphocytes (%) (Auto) 4L , Monocytes (%) (Auto) 1, Eosinophils (%) (Auto) 0, Basophils (%) (Auto) 0, Neutrophils # (Auto) 24.6H, Lymphocytes # (Auto) 0.9L, Monocytes # (Auto) 0.4, Eosinophils # (Auto) 0.0, Basophils # (Auto) 0.1, Neutrophils % (Manual) 82, Lymphocytes % (Manual) 2, Monocytes % (Manual) 0, Eosinophils % (Manual) 0, Basophils % (Manual) 0, Metamyelocytes % 1, Band Neutrophils 15, Polychromasia SLIGHT, Anisocytosis SLIGHT, Sodium Level 141, Potassium Level 4.5, Chloride Level 106, Carbon Dioxide Level 20L, Anion Gap 15H, Blood Urea Nitrogen 12, Creatinine 0.78, Estimat Glomerular Filtration Rate > 60, BUN/Creatinine Ratio 15, Glucose Level 210H, Calcium Level 9.3, Corrected Calcium 9.5, Total Bilirubin 0.4, Aspartate Amino Transf (AST/SGOT) 21, Alanine Aminotransferase (ALT/SGPT) 15, Alkaline Phosphatase 269H, Troponin I < 0.028, B-Type Natriuretic Peptide 721.3H, Total Protein 7.2, Albumin 3.8 12/15/19 16:10: Glucometer 186H A/P-Cardiology Assessment/Admission Diagnosis PAF with RVR H/o anemia of undetermined etiology which has required multiple transfusions in the past (she reports chronic anemia for which she has had multiple eval in the past with unknown cause). Previous stool positive for occult blood during previous admission of Aug 2019 H/o PAF that has chronically been treated with flecainide (managed by Dr. Muhammad at [facility], [place]) Non-Hodgkin B-cell lymphoma - follows with Dr. Payne of oncology services - receiving chemo tx Chronic HFpEF Echo of 07/11/19: LVEF 60-65%, mild MR, mod AI, mild to mod TR, grade 2 mccullough dysfunction, RVSP 47 mmHg MPI of Jul 13, 2019 showed no evidence of ischemia/infarction; LVEF 67% Discussion and Recomendations * Management is relatively complex * Purely from a cardiac standpoint, OAC is indicated for stroke prophylaxis. She is willing to try a low dose of apixaban. This appears reasonable, given that H&H are near-normal. We recommend close f/u on H&H. Final decision regarding continuation or discontinuation of OAC is to be with the Hospitalist and Medical (patient's PCP) services * PAF with RVR - treated with IV Cardizem and oral BB * Monitor lab closely * Request records from [facility] [place], Dr. Muhammad * Further recs will be based on her hospital course Clinical Quality Measures DVT/VTE Risk/Contraindication: Risk Factor Score Per Nursin RFS Level Per Nursing on Admit: 4+=Very High ANA FINLEY MD FACP FAC CCDS Dec 15, 2019 18:14
[2019-12-15] MEDS: APIXABAN 2.5 MG (ELIQUIS) TABLET PO SCH (20:38)
[2019-12-15] MEDS ORDERED: MIRTAZAPINE 15 MG (REMERON) TAB PO SCH (21:00)
[2019-12-16] VITALS (10 sets, daily range): BP systolic 126–154; BP diastolic 51–92
[2019-12-16 03:23] LABS: BASOPHILS # (AUTO) 0.1 10^3/uL (0.0-0.1); BASOPHILS % (AUTO) 1 % (0-10); EOSINOPHILS # (AUTO) 0.2 10^3/uL (0.0-0.3); EOSINOPHILS % (AUTO) 1 % (0-10); HEMATOCRIT 35 % (35-52); HEMOGLOBIN 10.6 G/DL (11.5-16.0); LYMPHOCYTES # (AUTO) 2.1 X 10^3 (1.0-4.0); LYMPHOCYTES % (AUTO) 9 % (12-44); MEAN CORPUSCULAR HEMOGLOBIN 28 PG (25-34); MEAN CORPUSCULAR HGB CONC 30 G/DL (32-36); MEAN CORPUSCULAR VOLUME 95 FL (80-99); MEAN PLATELET VOLUME 10.1 FL (7.4-10.4); MONOCYTES # (AUTO) 1.9 X 10^3 (0.0-1.0); MONOCYTES % (AUTO) 9 % (0-12); NEUTROPHILS % (AUTO) 81 % (42-75); PLATELET COUNT 185 10^3/uL (130-400); WHITE BLOOD COUNT 22.2 10^3/uL (4.3-11.0)
[2019-12-16 03:33] LABS: ALBUMIN 3.5 GM/DL (3.2-4.5); CHLORIDE 106 MMOL/L (98-107); POTASSIUM 4.5 MMOL/L (3.6-5.0); SODIUM 141 MMOL/L (135-145)
[2019-12-16 03:36] LABS: GLUCOSE 114 MG/DL (70-105); TOTAL PROTEIN 6.8 GM/DL (6.4-8.2)
[2019-12-16 03:37] LABS: CARBON DIOXIDE 24 MMOL/L (21-32)
[2019-12-16 03:38] LABS: BILIRUBIN,TOTAL 0.3 MG/DL (0.1-1.0)
[2019-12-16 03:39] LABS: ALKALINE PHOSPHATASE 219 U/L (40-136); PHOSPHORUS 3.6 MG/DL (2.3-4.7)
[2019-12-16 03:40] LABS: CREATININE SERUM 0.81 MG/DL (0.60-1.30); GFR ESTIMATED > 60
[2019-12-16 03:41] LABS: BUN/CREATININE RATIO 20
[2019-12-16 03:42] LABS: ALANINE AMINOTRANSFERASE 13 U/L (0-55); MAGNESIUM 2.1 MG/DL (1.6-2.4)
--- NOTE | 2019-12-16 05:43 | Pulmonary Consultation ---
History of Present Illness History of Present Illness Date Seen by Provider: Dec 16, 2019 Time Seen by Provider: 05:38 Date of Admission Allergies and Home Medications Allergies Coded Allergies: Cephalexin Monohydrate (Verified Allergy, Unknown, has tolerated Ancef, 08/03/19) Iodinated Contrast Media (Verified Allergy, Unknown, 10/29/19) Penicillins (Verified Allergy, Unknown, Has tolerated Ancef, 08/03/19) iodine (Verified Allergy, Unknown, 07/08/19) linaclotide (Verified Allergy, Unknown, 07/28/19) lubiprostone (Verified Allergy, Unknown, 07/28/19) venlafaxine HCl (Verified Allergy, Unknown, 07/08/19) Home Medications Acetaminophen 325 Mg Tablet, 650 MG PO Q4H PRN for PAIN-MILD, (Reported) Aspirin 81 Mg Tablet.dr, 81 MG PO DAILY, (Reported) Atorvastatin Calcium 20 Mg Tablet, 20 MG PO HS, (Reported) Baclofen 10 Mg Tablet, 10 MG PO TID PRN for MUSCLE SPASMS, (Reported) Budesonide 0.5 Mg/2 Ml Ampul.neb, 0.5 MG NEB BID PRN for SHORTNESS OF BREATH, (Reported) Calcium Carbonate 600 Mg Tablet, 600 MG PO DAILY, (Reported) Carboxymethylcellulose Sodium 15 Ml Drops, 2 DROPS OU PRN PRN for DRY EYES, (Reported) Carvedilol 6.25 Mg Tablet, 6.25 MG PO BID, (Reported) Cholecalciferol (Vitamin D3) 50 Mcg Capsule, 50 MCG PO DAILY, (Reported) Citalopram Hydrobromide 10 Mg Tablet, 10 MG PO BID, (Reported) Diclofenac Sodium 100 Gm Gel..gram., 2 GR TOP QID PRN for PAIN-BREAKTHROUGH, (Reported) USES ON NECK Estrogens Conjugated 0.45 Mg Tab, 0.45 MG PO DAILY, (Reported) Famotidine 20 Mg Tablet, 20 MG PO BID, (Reported) Ferrous Sulfate 325 Mg Tablet, 325 MG PO DAILY, (Reported) Flecainide Acetate 100 Mg Tablet, 100 MG PO BID, (Reported) Furosemide 20 Mg Tablet, 20 MG PO DAILY PRN for SWELLING, (Reported) Ipratropium/Albuterol Sulfate 3 Ml Ampul.neb, 3 ML NEB QID PRN for SHORTNESS OF BREATH, (Reported) Lactobacillus Combo No.10 1 Each Capsule, 1 EACH PO DAILY, (Reported) Metformin HCl 500 Mg Tablet, 500 MG PO 1700 W/DINNER, (Reported) Mirtazapine 15 Mg Tablet, 7.5 MG PO HS, (Reported) TAKES 1/2 (15MG) TABLET Ondansetron HCl 4 Mg Tablet, 4 MG PO Q6H PRN for NAUSEA/VOMITING-1ST LINE, (Reported) Pantoprazole Sodium 40 Mg Tablet.dr, 40 MG PO DAILY, (Reported) Prednisone 20 Mg Tab, 40 MG PO DAILY, (Reported) FILLED 12-14-2019 #10/5 DAY SUPPLY Vit A/Vit C/Vit E/Zinc/Copper 1 Each Tablet, 2 TAB PO DAILY, (Reported) Past Ikwepxn-Eectlr-Qkodgo Hx Patient Social History Alcohol Use: Denies Use Recreational Drug Use: No Smoking Status: Never a Smoker 2nd Hand Smoke Exposure: No Recent Foreign Travel: No Contact w/Someone Who Travel: No Recent Infectious Disease Expo: No Recent Hopitalizations: Yes Immunizations Up To Date Tetanus Booster (TDap): Unknown Date of Pneumonia Vaccine: Oct 02, 2015 Date of Influenza Vaccine: Jun 01, 2019 Seasonal Allergies Seasonal Allergies: Yes Past Medical History Surgeries: Yes Abdominal, Appendectomy, Bladder Surgery, Cardiac, Gallbladder, Hysterectomy Respiratory: Yes Pneumonia, COPD Cardiac: Yes Atrial Fibrillation, Hypertension, Valvular Heart Disease Neurological: 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 Genitourinary: Yes (BLADDER PROLAPSE--S/P BLADDER SURGERIES WITH VAGINAL MESH) Bladder Infection Gastrointestinal: Yes (dysphagia) Gastroesophageal Reflux, Gastrointestinal Bleed, Chronic Constipation, Hiatal Hernia Musculoskeletal: Yes Rheumatoid Arthritis Endocrine: Yes Diabetes, Non-Insulin dep HEENT: No Cancer: Yes Lymphoma What Type of Treatment Did You: Chemotherapy Psychosocial: Yes Anxiety, Depression Integumentary: No Blood Disorders: Yes (ANEMIA--UNKNOWN CAUSE) Adverse Reaction/Blood Tranf: No Family Medical History No Pertinent Family Hx Review of Systems Time Seen by Provider: 05:48 Sepsis Event Evaluation Height, Weight, BMI Height: '" Weight: lbs. oz. kg; 21.00 BMI Method:Estimated Exam Exam Vital Signs Date Time Temp Pulse Resp B/P (MAP) Pulse Ox O2 Delivery O2 Flow Rate FiO2 12/16/19 04:00 94 Nasal Cannula 1.00 12/16/19 03:30 36.0 12/16/19 02:00 56 19 140/56 (84) 96 Room Air 12/16/19 01:00 67 16 148/71 (96) 93 Room Air 12/16/19 01:00 67 12/16/19 00:00 94 Nasal Cannula 1.00 12/16/19 00:00 36.1 12/16/19 00:00 80 22 150/51 (84) 89 Room Air 12/15/19 23:41 36.1 12/15/19 23:00 77 24 136/68 (90) 96 Room Air 12/15/19 22:00 76 19 150/78 (102) 93 Room Air 12/15/19 21:06 96 Room Air 12/15/19 21:00 76 13 141/77 (98) 95 Nasal Cannula 1.00 12/15/19 20:39 36.0 70 21 150/67 (94) 94 Nasal Cannula 1.00 12/15/19 20:00 68 17 143/61 (88) 95 Nasal Cannula 2.00 12/15/19 20:00 94 Nasal Cannula 1.00 12/15/19 19:00 64 16 136/57 (83) 92 Nasal Cannula 2.00 12/15/19 19:00 64 12/15/19 18:27 66 23 135/67 (89) 94 Nasal Cannula 2.00 12/15/19 17:00 71 30 148/68 (94) 98 Nasal Cannula 2.00 12/15/19 16:17 97 Nasal Cannula 2.00 12/15/19 16:00 57 26 154/73 (100) 94 Nasal Cannula 2.00 12/15/19 15:00 70 20 141/57 (85) 95 Nasal Cannula 2.00 12/15/19 14:00 92 28 153/88 (109) 93 Nasal Cannula 2.00 12/15/19 13:00 70 15 145/86 (105) 97 Nasal Cannula 2.00 12/15/19 12:25 66 12/15/19 12:00 66 26 165/80 (108) 96 Nasal Cannula 2.00 12/15/19 12:00 98 Nasal Cannula 2.00 12/15/19 11:39 68 18 151/55 96 12/15/19 10:23 36.0 152 20 170/112 (131) 89 Room Air I & O 12/16/19 07:00 Intake Total 1050 ml Output Total 900 ml Balance 150 ml Height & Weight Height: '" Weight: lbs. oz. kg; 21.00 BMI Method:Estimated General Appearance: WD/WN, Anxious, Moderate Distress HEENT: PERRL/EOMI, Pharynx Normal, Moist Mucous Membranes Neck: Full Range of Motion, Normal Inspection Respiratory: Chest Non Tender, Lungs Clear, Normal Breath Sounds, Respiratory Distress ([id number]-ed-oglwcolc with increased rate) Cardiovascular: No Murmur, Irregularly Irregular, Tachycardia Capillary Refill: Less Than 3 Seconds Extremity: Normal Capillary Refill, Normal Inspection, Normal Range of Motion Neurologic/Psychiatric: Alert, Oriented x3, No Motor/Sensory Deficits Skin: Normal Color, Warm/Dry Results Lab Laboratory Tests 12/15/19 10:35 12/16/19 03:12 Assessment/Plan Assessment/Plan Right > left infiltrate/effusion -BNP is 721 -Check PCT -Pt has a lot of allergies -will await PCT prior to starting Abx -Leukocytosis has improved without Abx -Check cultures \\Afib RVR -Currently on cardizem -Eliquis -Cardiology following Hx of nonhodgkins lymphoma -Last chemo was 1 wk ago HARLEY GAMA DO Dec 16, 2019 05:43
[2019-12-16] MEDS ORDERED: FUROSEMIDE 40 MG/4 ML INJ (LASIX) IVP ONE (05:45)
[2019-12-16] MEDS ORDERED: KCL 20 MEQ TAB (K-DUR) PO SCH ×2 (06:00)
[2019-12-16] MEDS ORDERED: POTASSIUM CL 10MEQ/50ML IVPB 50 ML IV SCH ×2 (06:00)
[2019-12-16] MEDS ORDERED: MAGNESIUM 1 GM/100 ML IVPB 100 ML IV SCH ×2 (06:00)
--- NOTE | 2019-12-16 06:01 | Diagnostic Imaging Report ---
Indication: Hypoxemia Portable chest 3:47 AM Right upper extremity PICC line tip projects over the SVC. There is some consolidation at the right lung base with an effusion. Left lung is clear. IMPRESSION: Right lower lobe consolidation with effusion appears similar to exam from the previous day. There is less vascular congestion noted in the left lung. Dictated by: Dictated on workstation # [id number]
[2019-12-16] MEDS: inSUlin ASPART (NovoLOG) 1 UNIT/0.01 ML (CHARGE PER UNIT) SC SCH ×2 (06:23→11:27)
[2019-12-16] MEDS: CATHETER FLUSH 10 ML SYR IV SCH ×2 (06:37→14:41)
[2019-12-16 08:30] LABS: BILIRUBIN,URINE NEGATIVE (NEGATIVE); CLARITY,URINE CLEAR; COLOR,URINE YELLOW; GLUCOSE, URINE (UA) NEGATIVE (NEGATIVE); KETONES,URINE NEGATIVE (NEGATIVE); LEUKOCYTE ESTERASE ,URINE NEGATIVE (NEGATIVE); NITRITE,URINE NEGATIVE (NEGATIVE); PH,URINE 6.5 (5-9); PROTEIN,URINE NEGATIVE (NEGATIVE)
[2019-12-16 08:41] LABS: BACTERIA,URINE TRACE /HPF; RBC,URINE RARE /HPF; SQUAMOUS EPITHELIAL CELL,UR 0-2 /HPF; WBC,URINE RARE /HPF
[2019-12-16] MEDS: APIXABAN 2.5 MG (ELIQUIS) TABLET PO SCH (08:41)
[2019-12-16] MEDS ORDERED: KCL 20 MEQ TAB (K-DUR) PO ONE (09:00)
[2019-12-16] MEDS ORDERED: meTOprolol SUCCINATE 100 MG (TOPROL XL) TAB PO SCH (09:00)
[2019-12-16] MEDS ORDERED: TRIM/SULFAMETH 160/800 (SEPTRA DS) TAB PO ONE (10:30)
[2019-12-16] MEDS ORDERED: Trimethoprim/Sulfamethoxazole PO (11:33)
--- NOTE | 2019-12-16 11:40 | History & Physical-Hospitalist ---
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 She reports that she had been feeling dizzy and weak. She denies any chest pain or shortness of breath. She denies any fevers or chills. She has some mild lower extremity swelling which has been chronic and unchanged. She denies any abdominal pain, nausea, vomiting, or diarrhea. She reports being compliant with her medications. She has no other complaints or concerns. Source: patient Exam Limitations: no limitations Date Seen 12/15/19 Time Seen by a Provider: 14:00 Attending Physician Denisa Esquivel MD PCP Aakash Santos MD Referring Physician Date of Admission Dec 15, 2019 at 11:00 Home Medications & Allergies Home Medications Reviewed patient Home Medication Reconciliation performed by pharmacy medication reconciliations animal husbandry technician and/or nursing. Patients Allergies have been reviewed. Allergies Allergies Coded Allergies Cephalexin Monohydrate (Verified Allergy, Unknown, has tolerated Ancef, 08/03/19) Iodinated Contrast Media (Verified Allergy, Unknown, 10/29/19) Penicillins (Verified Allergy, Unknown, Has tolerated Ancef, 08/03/19) iodine (Verified Allergy, Unknown, 07/08/19) linaclotide (Verified Allergy, Unknown, 07/28/19) lubiprostone (Verified Allergy, Unknown, 07/28/19) venlafaxine HCl (Verified Allergy, Unknown, 07/08/19) Past Bnceacb-Fwjtui-Qweavz Hx Past Med/Social Hx: Reviewed Nursing Past Med/Soc Hx Patient Social History Alcohol Use: Denies Use Recreational Drug Use: No Smoking Status: Never a Smoker 2nd Hand Smoke Exposure: No Recent Foreign Travel: No Contact w/other who traveled: No Recent Hopitalizations: Yes Recent Infectious Disease Expo: No Immunizations Up To Date Tetanus Booster (TDap): Unknown Date of Pneumonia Vaccine: Oct 02, 2015 Date of Influenza Vaccine: Jun 01, 2019 Seasonal Allergies Seasonal Allergies: Yes Past Medical History Surgeries: Abdominal, Appendectomy, Bladder Surgery, Cardiac, Gallbladder, Hysterectomy Cardiac: Atrial Fibrillation, Hypertension, Valvular Heart Disease Menopausal Genitourinary: Bladder Infection Gastrointestinal: Gastroesophageal Reflux, Gastrointestinal Bleed, Chronic Co nstipation, Hiatal Hernia Musculoskeletal: Rheumatoid Arthritis Endocrine: Diabetes, Non-Insulin dep Cancer: Lymphoma What Type of Treatment Did You: Chemotherapy Psychosocial: Anxiety, Depression History of Blood Disorders: Yes (ANEMIA--UNKNOWN CAUSE) Adverse Reaction to Blood Ellis: No Family History No Pertinent Family Hx Review of Systems Constitutional: dizziness, weakness EENTM: no symptoms reported Respiratory: no symptoms reported Cardiovascular: palpitations Gastrointestinal: no symptoms reported Genitourinary: no symptoms reported Musculoskeletal: no symptoms reported Skin: no symptoms reported Psychiatric/Neurological: No Symptoms Reported Physical Exam Physical Exam Vital Signs Vital Signs - First Documented 12/15/19 10:23 Temp 36.0 Pulse 152 Resp 20 B/P (MAP) 170/112 (131) Pulse Ox 89 O2 Delivery Room Air Capillary Refill : Less Than 3 Seconds Height, Weight, BMI Height: '" Weight: lbs. oz. kg; 21.00 BMI Method:Estimated General Appearance: No Apparent Distress, WD/WN Neck: Normal Inspection, Supple Respiratory: Lungs Clear, Normal Breath Sounds, No Respiratory Distress Cardiovascular: No Murmur, Irregularly Irregular Gastrointestinal: Normal Bowel Sounds, Non Tender, Soft Extremity: Normal Inspection, Non Tender, Pedal Edema Neurologic/Psychiatric: Alert, Oriented x3, No Motor/Sensory Deficits, Normal Mood/Affect Skin: Normal Color, Warm/Dry Results Results/Procedures Labs Laboratory Tests 12/15/19 10:35 12/16/19 03:12 Patient resulted labs reviewed. Assessment/Plan Admission Diagnosis atrial fibrillation with rapid ventricular response Admission Status: Inpatient Order (span 2 midnights) Reason for Inpatient Admission: A. fib with RVR requiring further treatment and evaluation Assessment and Plan atrial fibrillation with rapid ventricular response Taking flecainide and Coreg at home not on anticoagulation due to history of GI bleeding presented in A. fib with RVR Started on IV Cardizem Started on Eliquis Cardiology consulted, appreciate assistance Leukocytosis Possible UTI chest x-ray with possible infiltrate No shortness of breath or cough procalcitonin normal Urine culture pending Started on Bactrim HTN HLD GERD continue home meds DVT prophylaxis: Already receiving therapeutic anticoagulation Diagnosis/Problems Diagnosis/Problems (1) Atrial fibrillation with rapid ventricular response Status: Acute (2) Diffuse large B-cell lymphoma Status: Acute (3) Leukocytosis Status: Acute Clinical Quality Measures DVT/VTE Risk/Contraindication: Risk Factor Score Per Nursin RFS Level Per Nursing on Admit: 4+=Very High DENISA ESQUIVEL MD Dec 16, 2019 11:40
[2019-12-16] MEDS: dilTIAZem DRIP 125 MG/125 ML DRIP IV SCH (12:30)
--- NOTE | 2019-12-16 12:30 | NUR ---
Verbal orders received from to give patient Cardizem CD 120mg now and to turn Cardizem drip off 1hr after PO administration. Pt is to go home on PO Cardizem CD 120mg daily and PO Eliquis 2.5mg BID. Patient advised by physician and by this nurse to immediately stop taking Eliquis if any bleeding develops. Patient reports to this nurse and that patient is established with encapsulator in [place], advised patient to follow up with within 1 week and to report to him the medication changes that have been made.
--- NOTE | 2019-12-16 12:30 | NUR ---
Verbal orders received from to give patient Cardizem CD 120mg now and to turn Cardizem drip off 1hr after PO administration. Pt is to go home on Cardizem CD 120mg daily and Eliquis 2.5mg daily. Patient advised by physician and by this nurse to immediately stop taking Eliquis if any bleeding develops. 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 Addendum: 12/16/19 at 1452 by JAMES VELÁSQUEZ RN eliquis BID not daily
[2019-12-16] MEDS ORDERED: dilTIAZem120 MG (CARDIZEM CD) CAP PO SCH (13:00)
--- NOTE | 2019-12-16 13:30 | Cardiology Progress Note ---
Cardiology SOAP Progress Note Subjective: No cardiac complaints. Continues to be in atrial fibrillation. Objective: I&O/Vital Signs 12/16/19 12/16/19 12/16/19 12/16/19 02:00 03:00 03:30 04:00 Temp 36.0 Pulse 56 54 Resp 19 16 B/P (MAP) 140/56 (84) 147/60 (89) Pulse Ox 96 92 94 O2 Delivery Room Air Room Air Nasal Cannula O2 Flow Rate 1.00 12/16/19 12/16/19 12/16/19 12/16/19 04:21 05:00 06:12 06:43 Pulse 57 61 60 78 Resp 15 15 22 B/P (MAP) 149/76 (100) 154/92 (112) Pulse Ox 95 96 95 O2 Delivery Room Air Room Air Room Air 12/16/19 12/16/19 12/16/19 12/16/19 07:00 08:00 08:00 08:30 Temp 36.4 Pulse 67 75 Resp 26 23 B/P (MAP) 127/52 (77) Pulse Ox 98 95 95 O2 Delivery Room Air Room Air Nasal Cannula O2 Flow Rate 1.00 12/16/19 12/16/19 12/16/19 12/16/19 09:00 10:45 11:13 11:30 Temp 36.8 Pulse 58 59 73 Resp 24 18 10 B/P (MAP) 136/62 (86) 139/56 (83) 126/81 (96) Pulse Ox 91 93 O2 Delivery Room Air Room Air Room Air 12/16/19 12:41 Pulse 65 12/16/19 00:00 Intake Total 950 ml Output Total 700 ml Balance 250 ml Constitutional: AAO x 3 Respiratory: No accessory muscle use, No respiratory distress; chest expansion is symmetric, chest is bilaterally symmetric, other (good air entry with diminished breath sounds bases) Cardiovascular: irregularly irregular; No JVD; S1 and S2 Gastrointestional: No tender; soft, round, audible bowel sounds Extremities: significant edema (bilat 2 (+) pitting edema LE) Neurologic/Psychiatric: grossly intact (moves all extremities) Skin: No rash on exposed areas, No ulcerations on exposed areas Results/Procedures: Labs Laboratory Tests 12/15/19 16:10: Glucometer 186H 12/15/19 20:36: Glucometer 154H 12/16/19 03:12: White Blood Count 22.2H, Red Blood Count 3.74L, Hemoglobin 10.6L, Hematocrit 35, Mean Corpuscular Volume 95, Mean Corpuscular Hemoglobin 28, Mean Corpuscular Hemoglobin Concent 30L, Red Cell Distribution Width 17.0H, Platelet Count 185, Mean Platelet Volume 10.1, Neutrophils (%) (Auto) 81H, Lymphocytes (%) (Auto) 9L , Monocytes (%) (Auto) 9, Eosinophils (%) (Auto) 1, Basophils (%) (Auto) 1, Neutrophils # (Auto) 18.0H, Lymphocytes # (Auto) 2.1, Monocytes # (Auto) 1.9H, Eosinophils # (Auto) 0.2, Basophils # (Auto) 0.1, Sodium Level 141, Potassium Level 4.5, Chloride Level 106, Carbon Dioxide Level 24, Anion Gap 11, Blood Urea Nitrogen 16, Creatinine 0.81, Estimat Glomerular Filtration Rate > 60, BUN/Creatinine Ratio 20, Glucose Level 114H, Calcium Level 9.0, Corrected Calcium 9.4, Phosphorus Level 3.6, Magnesium Level 2.1, Total Bilirubin 0.3, Aspartate Amino Transf (AST/SGOT) 18, Alanine Aminotransferase (ALT/SGPT) 13, Alkaline Phosphatase 219H, Troponin I < 0.028, Total Protein 6.8, Albumin 3.5, Procalcitonin 0.04 12/16/19 07:25: Urine Color YELLOW, Urine Clarity CLEAR, Urine pH 6.5, Urine Specific Andrews 1.010L, Urine Protein NEGATIVE, Urine Glucose (UA) NEGATIVE, Urine Ketones NEGATIVE, Urine Nitrite NEGATIVE, Urine Bilirubin NEGATIVE, Urine Urobilinogen 0.2, Urine Leukocyte Esterase NEGATIVE, Urine RBC (Auto) NEGATIVE, Urine RBC RARE, Urine WBC RARE, Urine Squamous Epithelial Cells 0-2, Urine Crystals NONE, Urine Bacteria TRACE, Urine Casts NONE, Urine Mucus NEGATIVE, Urine Culture Indicated YES 12/16/19 11:14: Glucometer 91 A/P: Assessment/Dx: PAF with improved ventricular rate. H/o anemia of undetermined etiology which has required multiple transfusions in the past (she reports chronic anemia for which she has had multiple eval in the past with unknown cause). Previous stool positive for occult blood during previous admission of Aug 2019 H/o PAF that has chronically been treated with flecainide (managed by Dr. Muhammad at [facility]) Non-Hodgkin B-cell lymphoma - follows with Dr. Payne of oncology services - receiving chemo tx Chronic HFpEF Echo of 07/11/19: LVEF 60-65%, mild MR, mod AI, mild to mod TR, grade 2 mccullough dysfunction, RVSP 47 mmHg MPI of Jul 13, 2019 showed no evidence of ischemia/infarction; LVEF 67% Plan: * Management is relatively complex * Purely from a cardiac standpoint, OAC is indicated for stroke prophylaxis. She is willing to try a low dose of apixaban. This appears reasonable, given that H&H are near-normal. We recommend close f/u on H&H. Final decision regarding continuation or discontinuation of OAC is to be with the Hospitalist and Medical (patient's PCP) services * PAF with improved ventricular rate-DC IV Cardizem, start by mouth Cardizem. Continue beta adrian. Defer final management to outpatient hoop riveter. * Monitor lab closely * The patient will be transferred from IV Cardizem to by mouth Cardizem. She will be discharged today to follow-up with Dr. Muhammad within the next one week. I discussed at length with the patient and recommended that she follows up with Dr. Muhammad in the next one week. If she has any evidence of bleeding she should stop Eliquis. Thank you for your consultation. Please call me if you have any questions. Nya Win MD, FACP, FACC, FSCAI, FHRS, CCDS Interventional Cardiology Cardiac Electrophysiology Vascular Medicine and Endovascular Interventions Tasha WIN MD Dec 16, 2019 13:30
[2019-12-16] MEDS ORDERED: DILT-27 PO ×2 (14:08→14:11)
[2019-12-16] MEDS ORDERED: APIX2.5T PO ×2 (14:08→14:11)
--- NOTE | 2019-12-16 14:38 | NUR ---
This nurse spoke with [facility] pharmacy to verify that the medications were escribed correctly, Bactrim, Eliquis and Cardizem dose, route, frequency and # dispensed all verified and read back by this nurse to pharmacist tech.
--- NOTE | 2019-12-16 14:53 | NUR ---
This nurse called at 1450 to verify if he wanted her to continue home medication Coreg and Flecainide, telephone order received from to d/c flecainide and to continue coreg home medications
[2019-12-16] MEDS ORDERED: TRIM/SULFAMETH 160/800 (SEPTRA DS) TAB PO SCH (17:00)
--- NOTE | 2019-12-17 12:29 | Discharge Summary ---
Discharge Summary Hospital Course Was the Problem List Reviewed?: Yes Problems/Dx: (1) Atrial fibrillation with rapid ventricular response Status: Acute (2) Diffuse large B-cell lymphoma Status: Acute (3) Leukocytosis Status: Acute Hospital Course Date of Admission: Dec 15, 2019 at 11:00 Admission Diagnosis : Atrial fibrillation with rapid ventricular response Family Physician/Provider: Litzy Shafer MD Date of Discharge: 12/17/19 Discharge Diagnosis: Atrial fibrillation with rapid ventricular response Hospital Course: She Hawkins is a 74-year-old female with diffuse large B-cell lymphoma currently on chemotherapy who presented with atrial fibrillation with rapid ventricular response. She was treated with IV Cardizem and her rates were controlled. She was transitioned to oral Cardizem. She was started on low-dose Eliquis. Her oral flecainide was stopped. She was continued on her oral Coreg. She should follow up with cardiology. Her course was complicated by a leukocytosis and her x-ray was concerning for an infiltrate so she was given a course of oral Omnicef. She never had any fevers, shortness of breath, or cough. After discharge, one blood culture from her PICC returned positive for coag-negative staph and this information was relayed to Dr. Payne. They will repeat blood cultures as an outpatient. Labs and Pending Lab Test: Microbiology 12/16/19 Urine Culture - Final, Complete 3 or more isolates 12/16/19 Blood Culture - Preliminary, Resulted Probable Coag Negative Staph See Comments 12/15/19 MRSA Screen - Final, Complete MRSA not isolated Home Meds Active Eliquis (Apixaban) 2.5 Mg Tablet 2.5 Mg PO BID 30 Days Diltiazem 24Hr ER (Diltiazem HCl) 120 Mg Cap.er.24h 120 Mg PO DAILY 30 Days [Trimethoprim/Sulfamethoxazole] 1 EA Tab 1 Ea PO BID WITH MEALS 7 Days Reported Probiotic (Lactobacillus Combo No.10) 1 Each Capsule 1 Each PO DAILY Prednisone 20 Mg Tab 40 Mg PO DAILY 5 Days FILLED 12-14-2019 #10/ DAY SUPPLY Diclofenac Sodium 100 Gm Gel..gram. 2 Gr TOP QID PRN USES ON NECK Refresh Tears (Carboxymethylcellulose Sodium) 15 Ml Drops 2 Drops OU PRN PRN Ferrous Sulfate 325 Mg Tablet 325 Mg PO DAILY Calcium (Calcium Carbonate) 600 Mg Tablet 600 Mg PO DAILY Vitamin D3 (Cholecalciferol (Vitamin D3)) 50 Mcg Capsule 50 Mcg PO DAILY Baclofen 10 Mg Tablet 10 Mg PO TID PRN Budesonide 0.5 Mg/2 Ml Ampul.neb 0.5 Mg NEB BID PRN Carvedilol 6.25 Mg Tablet 6.25 Mg PO BID Ondansetron HCl 4 Mg Tablet 4 Mg PO Q6H PRN Citalopram HBr (Citalopram Hydrobromide) 10 Mg Tablet 10 Mg PO BID Famotidine 20 Mg Tablet 20 Mg PO BID Preservision Areds Tablet (Vit A/Vit C/Vit E/Zinc/Copper) 1 Each Tablet 2 Tab PO DAILY Tylenol (Acetaminophen) 325 Mg Tablet 650 Mg PO Q4H PRN Metformin HCl 500 Mg Tablet 500 Mg PO 1700 W/DINNER Premarin (Estrogens Conjugated) 0.45 Mg Tab 0.45 Mg PO DAILY Atorvastatin Calcium 20 Mg Tablet 20 Mg PO HS Mirtazapine 15 Mg Tablet 7.5 Mg PO HS TAKES 1/2 (15MG) TABLET Iprat-Albut 0.5-3(2.5) mg/3 ml (Ipratropium/Albuterol Sulfate) 3 Ml Ampul.neb 3 Ml NEB QID PRN Pantoprazole Sodium 40 Mg Tablet. 40 Mg PO DAILY Furosemide 20 Mg Tablet 20 Mg PO DAILY PRN Aspir 81 (Aspirin) 81 Mg Tablet. 81 Mg PO DAILY Assessment/Pt Instructions Take medications as prescribed. Follow up with cardiology. Follow up with Dr. Payne for your lymphoma. Discharge Planning: <30 minutes discharge planning Discharge Instructions Discharge Diet: No Restrictions Activity as Tolerated: Yes Discharge Physical Examination Vital Signs Vital Signs Date Time Temp Pulse Resp B/P (MAP) Pulse Ox O2 Delivery O2 Flow Rate FiO2 12/16/19 15:36 12/16/19 12:41 65 12/16/19 12:00 95 Nasal Cannula 1.00 12/16/19 11:30 10 12/16/19 11:13 36.8 General Appearance: No Apparent Distress, WD/WN Respiratory: Lungs Clear, Normal Breath Sounds, No Respiratory Distress Cardiovascular: Regular Rate, Rhythm, No Edema, No Murmur Gastrointestinal: Normal Bowel Sounds, Non Tender, Soft Extremity: Normal Inspection, Non Tender Skin: Normal Color, Warm/Dry Neurologic/Psychiatric: Alert, Oriented x3, No Motor/Sensory Deficits, Normal Mood/Affect Allergies: Coded Allergies: Cephalexin Monohydrate (Verified Allergy, Unknown, has tolerated Ancef, 08/03/19) Iodinated Contrast Media (Verified Allergy, Unknown, 10/29/19) Penicillins (Verified Allergy, Unknown, Has tolerated Ancef, 08/03/19) iodine (Verified Allergy, Unknown, 07/08/19) linaclotide (Verified Allergy, Unknown, 07/28/19) lubiprostone (Verified Allergy, Unknown, 07/28/19) venlafaxine HCl (Verified Allergy, Unknown, 07/08/19) Copy Copies To 1: LEEROY PAYNE Copies To 2: LITZY SHAFER MD Discharge Summary Date of Admission Dec 15, 2019 at 11:00 Date of Discharge Dec 16, 2019 at 15:47 Discharge Date: Dec 17, 2019 Discharge Time: 15:47 Admission Diagnosis atrial fibrillation with rapid ventricular response Consults/Procedures Consulations Cardiology Discharge Diagnosis atrial fibrillation with rapid ventricular response (1) Atrial fibrillation with rapid ventricular response Status: Acute (2) Diffuse large B-cell lymphoma Status: Acute (3) Leukocytosis Status: Acute Clinical Quality Measures DVT/VTE Risk/Contraindication: Risk Factor Score Per Nursin RFS Level Per Nursing on Admit: 4+=Very High DENISA ESQUIVEL MD Dec 17, 2019 12:26
== END 2019-12-16 15:47 | disposition home or self-care (01) ==
LOC: EDUNIT# 10:23 → ER 10:25 → ICU 11:00
PROVIDERS: ADMIT Internal Medicine; ATTEND Internal Medicine
DX: I48.0 Paroxysmal atrial fibrillation (principal); I11.0 Hypertensive heart disease with heart failure; I50.9 Heart failure, unspecified; I25.10 Atherosclerotic heart disease of native coronary artery without angina pectoris; I49.5 Sick sinus syndrome; C83.30 Diffuse large B-cell lymphoma, unspecified site; J44.9 Chronic obstructive pulmonary disease, unspecified; K21.9 Gastro-esophageal reflux disease without esophagitis; K59.09 Other constipation; M06.9 Rheumatoid arthritis, unspecified; E11.9 Type 2 diabetes mellitus without complications; R09.02 Hypoxemia; F41.9 Anxiety disorder, unspecified; F32.9 Major depressive disorder, single episode, unspecified; Z88.8 Allergy status to other drugs, medicaments and biological substances; Z88.0 Allergy status to penicillin; Z91.041 Radiographic dye allergy status; Z79.899 Other long term (current) drug therapy; Z79.82 Long term (current) use of aspirin; Z79.52 Long term (current) use of systemic steroids; Z79.891 Long term (current) use of opiate analgesic; Z90.89 Acquired absence of other organs; Z90.710 Acquired absence of both cervix and uterus; Z79.84 Long term (current) use of oral hypoglycemic drugs; Z95.0 Presence of cardiac pacemaker
CPT/HCPCS: 36415; 71045; 80053; 81000; 82962; 83735; 83880; 84100; 84145; 84484; 85007; 85025; 85027; 87040; 87077; 87081; 87088; 87186; 87449; 87899; 93005; 93041; 96365; 96372; G0378

== ENCOUNTER → 2020-01-18 | Outpatient (CLI) | payer MEDICARE, OTHER ==
[~2020-01-18] MED LIST changes: +APIX2.5T PO; +BACL10TA PO; +CALC600T12 PO; +CARB15DR OU; +CHOL2000 PO; +DICL100G31 TOP; +DILT-27 PO; +LACT1CAP72 PO; +METF-865; -METF500T19; +Trimethoprim/Sulfamethoxazole PO
--- NOTE | 2020-01-18 13:07 | Diagnostic Imaging Report ---
INDICATION: Large B-cell lymphoma. This study is performed for subsequent treatment response and restaging. TECHNIQUE: The serum blood glucose level at the time of injection was 89 mg/dL. The patient was administered 15.4 mCi of F-18 FDG intravenously in the right forearm and PET imaging was performed from the top of the skull to the mid thighs. A noncontrast CT was also performed for attenuation correction and anatomic correlation. COMPARISON: Correlation is made with the prior PET/CT study from 11/02/2019. FINDINGS: There is symmetric activity throughout the brain. The soft tissues of the neck are unremarkable. No mediastinal or hilar hypermetabolism is identified. No axillary hypermetabolism is detected on today's study. No pulmonary parenchymal hypermetabolism is identified. There are small bilateral pleural effusions, decreased in size when compared with the PET/CT from 11/02/2019. Physiologic activity within the GI and tracts is noted. No suspicious hypermetabolism is detected in the abdomen or pelvis. IMPRESSION: Small bilateral pleural effusions, decreased since the prior PET/CT from 11/02/2019. No suspicious hypermetabolism is identified on today's exam. Dictated by: Dictated on workstation # [id number]
== END ==
LOC: RAD 08:43
PROVIDERS: ATTEND Nurse Practitioner Adult Health
DX: C83.30 Diffuse large B-cell lymphoma, unspecified site (principal); J90 Pleural effusion, not elsewhere classified

== ENCOUNTER 2020-01-26 12:43 | Outpatient (RCR) | payer MEDICARE, OTHER ==
[2019-11-11 11:08] LABS: BASOPHILS # (AUTO) 0.1 10^3/uL (0.0-0.1); BASOPHILS % (AUTO) 0 % (0-10); EOSINOPHILS # (AUTO) 0.4 10^3/uL (0.0-0.3); EOSINOPHILS % (AUTO) 2 % (0-10); HEMATOCRIT 36 % (35-52); HEMOGLOBIN 11.3 G/DL (11.5-16.0); LYMPHOCYTES # (AUTO) 1.8 X 10^3 (1.0-4.0); LYMPHOCYTES % (AUTO) 7 % (12-44); MEAN CORPUSCULAR HEMOGLOBIN 31 PG (25-34); MEAN CORPUSCULAR HGB CONC 32 G/DL (32-36); MEAN CORPUSCULAR VOLUME 97 FL (80-99); MEAN PLATELET VOLUME 8.7 FL (7.4-10.4); MONOCYTES # (AUTO) 2.3 X 10^3 (0.0-1.0); MONOCYTES % (AUTO) 8 % (0-12); NEUTROPHILS % (AUTO) 83 % (42-75); PLATELET COUNT 275 10^3/uL (130-400); RED CELL DISTRIBUTION WIDTH 15.4 % (10.0-14.5); WHITE BLOOD COUNT 27.6 10^3/uL (4.3-11.0)
[2019-11-11 11:27] LABS: BUN/CREATININE RATIO 13; CALCIUM 9.1 MG/DL (8.5-10.1); CARBON DIOXIDE 29 MMOL/L (21-32); CHLORIDE 105 MMOL/L (98-107); CREATININE SERUM 0.76 MG/DL (0.60-1.30); GFR ESTIMATED > 60; GLUCOSE 103 MG/DL (70-105); SODIUM 143 MMOL/L (135-145)
[2019-11-18 09:08] LABS: BASOPHILS # (AUTO) 0.1 10^3/uL (0.0-0.1); BASOPHILS % (AUTO) 1 % (0-10); EOSINOPHILS # (AUTO) 0.3 10^3/uL (0.0-0.3); EOSINOPHILS % (AUTO) 3 % (0-10); HEMATOCRIT 32 % (35-52); HEMOGLOBIN 10.2 G/DL (11.5-16.0); LYMPHOCYTES # (AUTO) 1.1 X 10^3 (1.0-4.0); LYMPHOCYTES % (AUTO) 12 % (12-44); MEAN CORPUSCULAR HEMOGLOBIN 30 PG (25-34); MEAN CORPUSCULAR HGB CONC 32 G/DL (32-36); MEAN CORPUSCULAR VOLUME 96 FL (80-99); MONOCYTES # (AUTO) 0.7 X 10^3 (0.0-1.0); MONOCYTES % (AUTO) 7 % (0-12); NEUTROPHILS # (AUTO) 7.2 X 10^3 (1.8-7.8); NEUTROPHILS % (AUTO) 76 % (42-75); PLATELET COUNT 259 10^3/uL (130-400); RED CELL DISTRIBUTION WIDTH 15.7 % (10.0-14.5); WHITE BLOOD COUNT 9.4 10^3/uL (4.3-11.0)
[2019-11-18 09:21] LABS: BUN/CREATININE RATIO 24; CALCIUM 8.9 MG/DL (8.5-10.1); CARBON DIOXIDE 24 MMOL/L (21-32); CHLORIDE 108 MMOL/L (98-107); CREATININE SERUM 0.74 MG/DL (0.60-1.30); GFR ESTIMATED > 60; GLUCOSE 104 MG/DL (70-105); POTASSIUM 4.2 MMOL/L (3.6-5.0); SODIUM 141 MMOL/L (135-145)
[2019-11-25 10:18] LABS: BASOPHILS # (AUTO) 0.1 10^3/uL (0.0-0.1); BASOPHILS % (AUTO) 1 % (0-10); EOSINOPHILS # (AUTO) 0.3 10^3/uL (0.0-0.3); EOSINOPHILS % (AUTO) 3 % (0-10); HEMATOCRIT 33 % (35-52); HEMOGLOBIN 10.2 G/DL (11.5-16.0); LYMPHOCYTES # (AUTO) 0.9 X 10^3 (1.0-4.0); LYMPHOCYTES % (AUTO) 12 % (12-44); MEAN CORPUSCULAR HEMOGLOBIN 30 PG (25-34); MEAN CORPUSCULAR HGB CONC 31 G/DL (32-36); MEAN CORPUSCULAR VOLUME 96 FL (80-99); MEAN PLATELET VOLUME 8.9 FL (7.4-10.4); MONOCYTES # (AUTO) 1.1 X 10^3 (0.0-1.0); MONOCYTES % (AUTO) 15 % (0-12); NEUTROPHILS # (AUTO) 5.2 X 10^3 (1.8-7.8); NEUTROPHILS % (AUTO) 69 % (42-75); PLATELET COUNT 320 10^3/uL (130-400); RED CELL DISTRIBUTION WIDTH 16.1 % (10.0-14.5); WHITE BLOOD COUNT 7.5 10^3/uL (4.3-11.0)
[2019-11-25 10:38] LABS: BUN/CREATININE RATIO 23; CARBON DIOXIDE 25 MMOL/L (21-32); CHLORIDE 108 MMOL/L (98-107); CREATININE SERUM 0.74 MG/DL (0.60-1.30); GFR ESTIMATED > 60; GLUCOSE 105 MG/DL (70-105); POTASSIUM 4.4 MMOL/L (3.6-5.0); SODIUM 143 MMOL/L (135-145)
[2019-12-02 09:54] LABS: BASOPHILS # (AUTO) 0.1 10^3/uL (0.0-0.1); BASOPHILS % (AUTO) 1 % (0-10); EOSINOPHILS # (AUTO) 0.4 10^3/uL (0.0-0.3); EOSINOPHILS % (AUTO) 5 % (0-10); HEMATOCRIT 33 % (35-52); HEMOGLOBIN 10.4 G/DL (11.5-16.0); LYMPHOCYTES % (AUTO) 14 % (12-44); MEAN CORPUSCULAR HEMOGLOBIN 30 PG (25-34); MEAN CORPUSCULAR HGB CONC 32 G/DL (32-36); MEAN CORPUSCULAR VOLUME 95 FL (80-99); MONOCYTES # (AUTO) 1.3 X 10^3 (0.0-1.0); MONOCYTES % (AUTO) 17 % (0-12); NEUTROPHILS # (AUTO) 4.9 X 10^3 (1.8-7.8); NEUTROPHILS % (AUTO) 64 % (42-75); PLATELET COUNT 317 10^3/uL (130-400); RED CELL DISTRIBUTION WIDTH 16.1 % (10.0-14.5); WHITE BLOOD COUNT 7.7 10^3/uL (4.3-11.0)
[2019-12-02 10:13] LABS: ALANINE AMINOTRANSFERASE 15 U/L (0-55); ALBUMIN 3.7 GM/DL (3.2-4.5); ALKALINE PHOSPHATASE 155 U/L (40-136); BILIRUBIN,TOTAL 0.2 MG/DL (0.1-1.0); BUN/CREATININE RATIO 24; CARBON DIOXIDE 23 MMOL/L (21-32); CHLORIDE 106 MMOL/L (98-107); CREATININE SERUM 0.83 MG/DL (0.60-1.30); GFR ESTIMATED > 60; GLUCOSE 120 MG/DL (70-105); POTASSIUM 4.2 MMOL/L (3.6-5.0); SODIUM 141 MMOL/L (135-145); TOTAL PROTEIN 7.1 GM/DL (6.4-8.2)
[2019-12-09 09:52] LABS: BASOPHILS # (AUTO) 0.1 10^3/uL (0.0-0.1); BASOPHILS % (AUTO) 1 % (0-10); EOSINOPHILS # (AUTO) 0.3 10^3/uL (0.0-0.3); EOSINOPHILS % (AUTO) 3 % (0-10); HEMATOCRIT 31 % (35-52); HEMOGLOBIN 9.9 G/DL (11.5-16.0); LYMPHOCYTES # (AUTO) 1.3 X 10^3 (1.0-4.0); LYMPHOCYTES % (AUTO) 10 % (12-44); MEAN CORPUSCULAR HEMOGLOBIN 30 PG (25-34); MEAN CORPUSCULAR HGB CONC 32 G/DL (32-36); MEAN CORPUSCULAR VOLUME 94 FL (80-99); MEAN PLATELET VOLUME 9.7 FL (7.4-10.4); MONOCYTES # (AUTO) 2.7 X 10^3 (0.0-1.0); MONOCYTES % (AUTO) 20 % (0-12); NEUTROPHILS # (AUTO) 8.9 X 10^3 (1.8-7.8); NEUTROPHILS % (AUTO) 67 % (42-75); PLATELET COUNT 174 10^3/uL (130-400); RED CELL DISTRIBUTION WIDTH 16.3 % (10.0-14.5); WHITE BLOOD COUNT 13.2 10^3/uL (4.3-11.0)
[2019-12-09 10:04] LABS: CHLORIDE 107 MMOL/L (98-107); POTASSIUM 3.8 MMOL/L (3.6-5.0); SODIUM 141 MMOL/L (135-145)
[2019-12-09 10:05] LABS: CALCIUM 8.5 MG/DL (8.5-10.1); GLUCOSE 105 MG/DL (70-105)
[2019-12-09 10:07] LABS: CARBON DIOXIDE 22 MMOL/L (21-32)
[2019-12-09 10:09] LABS: CREATININE SERUM 0.71 MG/DL (0.60-1.30); GFR ESTIMATED > 60
[2019-12-09 10:10] LABS: BUN/CREATININE RATIO 14
[2019-12-23 09:57] LABS: BASOPHILS # (AUTO) 0.2 10^3/uL (0.0-0.1); BASOPHILS % (AUTO) 2 % (0-10); EOSINOPHILS # (AUTO) 0.2 10^3/uL (0.0-0.3); EOSINOPHILS % (AUTO) 3 % (0-10); HEMATOCRIT 34 % (35-52); HEMOGLOBIN 10.8 G/DL (11.5-16.0); LYMPHOCYTES # (AUTO) 1.1 X 10^3 (1.0-4.0); LYMPHOCYTES % (AUTO) 14 % (12-44); MEAN CORPUSCULAR HEMOGLOBIN 29 PG (25-34); MEAN CORPUSCULAR HGB CONC 32 G/DL (32-36); MEAN CORPUSCULAR VOLUME 93 FL (80-99); MONOCYTES # (AUTO) 1.2 X 10^3 (0.0-1.0); MONOCYTES % (AUTO) 15 % (0-12); NEUTROPHILS # (AUTO) 5.3 X 10^3 (1.8-7.8); NEUTROPHILS % (AUTO) 67 % (42-75); PLATELET COUNT 320 10^3/uL (130-400); RED CELL DISTRIBUTION WIDTH 17.7 % (10.0-14.5)
[2019-12-23 10:12] LABS: BUN/CREATININE RATIO 20; CALCIUM 8.9 MG/DL (8.5-10.1); CARBON DIOXIDE 22 MMOL/L (21-32); CHLORIDE 108 MMOL/L (98-107); CREATININE SERUM 0.84 MG/DL (0.60-1.30); GFR ESTIMATED > 60; GLUCOSE 86 MG/DL (70-105); POTASSIUM 4.6 MMOL/L (3.6-5.0); SODIUM 140 MMOL/L (135-145)
[2019-12-30 10:19] LABS: BASOPHILS # (AUTO) 0.1 10^3/uL (0.0-0.1); BASOPHILS % (AUTO) 1 % (0-10); EOSINOPHILS # (AUTO) 0.2 10^3/uL (0.0-0.3); EOSINOPHILS % (AUTO) 2 % (0-10); HEMATOCRIT 36 % (35-52); LYMPHOCYTES # (AUTO) 1.5 X 10^3 (1.0-4.0); LYMPHOCYTES % (AUTO) 16 % (12-44); MEAN CORPUSCULAR HEMOGLOBIN 28 PG (25-34); MEAN CORPUSCULAR HGB CONC 31 G/DL (32-36); MEAN CORPUSCULAR VOLUME 93 FL (80-99); MEAN PLATELET VOLUME 9.1 FL (7.4-10.4); MONOCYTES # (AUTO) 1.7 X 10^3 (0.0-1.0); MONOCYTES % (AUTO) 19 % (0-12); NEUTROPHILS # (AUTO) 5.8 X 10^3 (1.8-7.8); NEUTROPHILS % (AUTO) 63 % (42-75); PLATELET COUNT 350 10^3/uL (130-400); RED CELL DISTRIBUTION WIDTH 16.9 % (10.0-14.5); WHITE BLOOD COUNT 9.2 10^3/uL (4.3-11.0)
[2019-12-30 10:39] LABS: ALANINE AMINOTRANSFERASE 18 U/L (0-55); ALKALINE PHOSPHATASE 161 U/L (40-136); BILIRUBIN,TOTAL 0.3 MG/DL (0.1-1.0); BUN/CREATININE RATIO 32; CALCIUM 9.2 MG/DL (8.5-10.1); CARBON DIOXIDE 25 MMOL/L (21-32); CHLORIDE 103 MMOL/L (98-107); CREATININE SERUM 0.81 MG/DL (0.60-1.30); GFR ESTIMATED > 60; GLUCOSE 108 MG/DL (70-105); POTASSIUM 4.5 MMOL/L (3.6-5.0); SODIUM 140 MMOL/L (135-145); TOTAL PROTEIN 7.5 GM/DL (6.4-8.2)
[2020-01-06 09:09] LABS: BASOPHILS # (AUTO) 0.1 10^3/uL (0.0-0.1); BASOPHILS % (AUTO) 0 % (0-10); EOSINOPHILS # (AUTO) 0.5 10^3/uL (0.0-0.3); EOSINOPHILS % (AUTO) 2 % (0-10); HEMATOCRIT 36 % (35-52); LYMPHOCYTES # (AUTO) 1.3 X 10^3 (1.0-4.0); LYMPHOCYTES % (AUTO) 5 % (12-44); MEAN CORPUSCULAR HEMOGLOBIN 29 PG (25-34); MEAN CORPUSCULAR HGB CONC 31 G/DL (32-36); MEAN CORPUSCULAR VOLUME 94 FL (80-99); MEAN PLATELET VOLUME 9.5 FL (7.4-10.4); MONOCYTES % (AUTO) 8 % (0-12); NEUTROPHILS % (AUTO) 85 % (42-75); PLATELET COUNT 204 10^3/uL (130-400); RED CELL DISTRIBUTION WIDTH 17.4 % (10.0-14.5); WHITE BLOOD COUNT 24.8 10^3/uL (4.3-11.0)
[2020-01-06 09:29] LABS: BUN/CREATININE RATIO 17; CALCIUM 8.9 MG/DL (8.5-10.1); CARBON DIOXIDE 26 MMOL/L (21-32); CHLORIDE 105 MMOL/L (98-107); CREATININE SERUM 0.81 MG/DL (0.60-1.30); GFR ESTIMATED > 60; GLUCOSE 97 MG/DL (70-105); POTASSIUM 4.2 MMOL/L (3.6-5.0); SODIUM 142 MMOL/L (135-145)
[2020-01-13 09:55] LABS: BASOPHILS # (AUTO) 0.1 10^3/uL (0.0-0.1); BASOPHILS % (AUTO) 1 % (0-10); EOSINOPHILS # (AUTO) 0.3 10^3/uL (0.0-0.3); EOSINOPHILS % (AUTO) 2 % (0-10); HEMATOCRIT 35 % (35-52); HEMOGLOBIN 10.7 G/DL (11.5-16.0); LYMPHOCYTES # (AUTO) 1.1 X 10^3 (1.0-4.0); LYMPHOCYTES % (AUTO) 10 % (12-44); MEAN CORPUSCULAR HEMOGLOBIN 28 PG (25-34); MEAN CORPUSCULAR HGB CONC 31 G/DL (32-36); MEAN CORPUSCULAR VOLUME 92 FL (80-99); MEAN PLATELET VOLUME 9.6 FL (7.4-10.4); MONOCYTES # (AUTO) 1.2 X 10^3 (0.0-1.0); MONOCYTES % (AUTO) 10 % (0-12); NEUTROPHILS # (AUTO) 8.8 X 10^3 (1.8-7.8); NEUTROPHILS % (AUTO) 77 % (42-75); PLATELET COUNT 229 10^3/uL (130-400); RED CELL DISTRIBUTION WIDTH 17.8 % (10.0-14.5); WHITE BLOOD COUNT 11.5 10^3/uL (4.3-11.0)
[2020-01-13 10:20] LABS: BUN/CREATININE RATIO 19; CARBON DIOXIDE 27 MMOL/L (21-32); CHLORIDE 104 MMOL/L (98-107); CREATININE SERUM 0.83 MG/DL (0.60-1.30); GFR ESTIMATED > 60; GLUCOSE 97 MG/DL (70-105); POTASSIUM 4.3 MMOL/L (3.6-5.0); SODIUM 140 MMOL/L (135-145)
[2020-01-20 14:25] LABS: BASOPHILS # (AUTO) 0.1 10^3/uL (0.0-0.1); BASOPHILS % (AUTO) 1 % (0-10); EOSINOPHILS # (AUTO) 0.2 10^3/uL (0.0-0.3); EOSINOPHILS % (AUTO) 2 % (0-10); HEMATOCRIT 34 % (35-52); HEMOGLOBIN 10.5 G/DL (11.5-16.0); LYMPHOCYTES # (AUTO) 0.8 X 10^3 (1.0-4.0); LYMPHOCYTES % (AUTO) 10 % (12-44); MEAN CORPUSCULAR HGB CONC 31 G/DL (32-36); MEAN CORPUSCULAR VOLUME 92 FL (80-99); MEAN PLATELET VOLUME 8.8 FL (7.4-10.4); MONOCYTES % (AUTO) 11 % (0-12); NEUTROPHILS # (AUTO) 6.7 X 10^3 (1.8-7.8); NEUTROPHILS % (AUTO) 77 % (42-75); PLATELET COUNT 337 10^3/uL (130-400); RED CELL DISTRIBUTION WIDTH 17.5 % (10.0-14.5); WHITE BLOOD COUNT 8.7 10^3/uL (4.3-11.0)
[2020-01-20 14:28] LABS: MEAN CORPUSCULAR HEMOGLOBIN 28 PG (25-34)
[2020-01-20 14:46] LABS: BUN/CREATININE RATIO 19; CALCIUM 8.9 MG/DL (8.5-10.1); CARBON DIOXIDE 26 MMOL/L (21-32); CHLORIDE 106 MMOL/L (98-107); CREATININE SERUM 0.89 MG/DL (0.60-1.30); GFR ESTIMATED > 60; GLUCOSE 133 MG/DL (70-105); POTASSIUM 3.8 MMOL/L (3.6-5.0); SODIUM 143 MMOL/L (135-145)
[~2020-01-26 12:43] MED LIST changes: +ACETAMINOPHEN 325 MG TAB (TYLENOL) CANCER CTR PO SCH; +CYCLOPHOSPHAMIDE INJECTION 600 MG in NS (IVPB) CANCER CENTER 250 ML IV SCH; +DOXORUBICIN HCL IV SCH; +FOSAPREPITANT (CANCER CENTER) 150 MG in NS (IVPB) CANCER CENTER ONLY 150 ML IV SCH; +NS IV 1000 ML (CANCER CTR) IV SCH; +NS IV SCH; +PALONOSETRON HCL 0.25 MG, DEXAMETHASONE INJECTION 10 MG in NS (IVPB) CANCER CENTER 50 ML IV SCH; +PEGFILGRASTIM 6 MG/0.6ML NEULASTA SC SCH; +VINCRISTINE SULFATE IV SCH; +diphenhydrAMINE 25 MG TAB (BENADRYL) CANCER CENTER PO SCH; +riTUXimab 500 MG, riTUXimab FOR IV INJ CONC 100 MG in NS (IVPB) CANCER CENTER ONLY 150 ML IV SCH
[2020-01-26 13:11] LABS: BASOPHILS # (AUTO) 0.1 10^3/uL (0.0-0.1); BASOPHILS % (AUTO) 1 % (0-10); EOSINOPHILS # (AUTO) 0.3 10^3/uL (0.0-0.3); EOSINOPHILS % (AUTO) 3 % (0-10); HEMATOCRIT 35 % (35-52); HEMOGLOBIN 10.6 G/DL (11.5-16.0); LYMPHOCYTES # (AUTO) 0.9 X 10^3 (1.0-4.0); LYMPHOCYTES % (AUTO) 11 % (12-44); MEAN CORPUSCULAR HEMOGLOBIN 28 PG (25-34); MEAN CORPUSCULAR HGB CONC 31 G/DL (32-36); MEAN CORPUSCULAR VOLUME 92 FL (80-99); MEAN PLATELET VOLUME 9.2 FL (7.4-10.4); MONOCYTES # (AUTO) 1.1 X 10^3 (0.0-1.0); MONOCYTES % (AUTO) 14 % (0-12); NEUTROPHILS # (AUTO) 5.3 X 10^3 (1.8-7.8); NEUTROPHILS % (AUTO) 70 % (42-75); PLATELET COUNT 336 10^3/uL (130-400); RED CELL DISTRIBUTION WIDTH 17.6 % (10.0-14.5); WHITE BLOOD COUNT 7.6 10^3/uL (4.3-11.0)
[2020-01-26 13:23] LABS: ALANINE AMINOTRANSFERASE 11 U/L (0-55); ALBUMIN 3.9 GM/DL (3.2-4.5); ALKALINE PHOSPHATASE 170 U/L (40-136); BILIRUBIN,TOTAL 0.4 MG/DL (0.1-1.0); BUN/CREATININE RATIO 19; CALCIUM 9.4 MG/DL (8.5-10.1); CARBON DIOXIDE 28 MMOL/L (21-32); CHLORIDE 106 MMOL/L (98-107); CREATININE SERUM 0.81 MG/DL (0.60-1.30); GFR ESTIMATED > 60; GLUCOSE 113 MG/DL (70-105); POTASSIUM 4.2 MMOL/L (3.6-5.0); SODIUM 143 MMOL/L (135-145); TOTAL PROTEIN 7.5 GM/DL (6.4-8.2)
== END 2020-02-09 | disposition home or self-care (01) ==
LOC: ONC 12:43
PROVIDERS: ATTEND Internal Medicine Hematology & Oncology
DX: C85.14 Unspecified B-cell lymphoma, lymph nodes of axilla and upper limb (principal)
CPT/HCPCS: 36591; 80048; 80053; 83615; 85025; 87040; 96367; 96372; 96375; 96411; 96413; 96417; 99213; J9312

== ENCOUNTER 2020-04-25 13:16 | Outpatient (RCR) | payer MEDICARE, OTHER ==
[~2020-04-25 13:16] MED LIST changes: -ACETAMINOPHEN 325 MG TAB (TYLENOL) CANCER CTR PO SCH; -CALC-6 PO; +CALC-664; +CALC1TAB84 PO; -CALC1TAB94; -CALC600T12 PO; -CHOL2000 PO; +CHOL200074 PO; +CLC600T PO; -CYCLOPHOSPHAMIDE INJECTION 600 MG in NS (IVPB) CANCER CENTER 250 ML IV SCH; -DOXORUBICIN HCL IV SCH; -FOSAPREPITANT (CANCER CENTER) 150 MG in NS (IVPB) CANCER CENTER ONLY 150 ML IV SCH; -NS IV 1000 ML (CANCER CTR) IV SCH; -NS IV SCH; -PALONOSETRON HCL 0.25 MG, DEXAMETHASONE INJECTION 10 MG in NS (IVPB) CANCER CENTER 50 ML IV SCH; -PANT40TA3 PO; +PANT40TA52 PO; -PEGFILGRASTIM 6 MG/0.6ML NEULASTA SC SCH; -VINCRISTINE SULFATE IV SCH; -diphenhydrAMINE 25 MG TAB (BENADRYL) CANCER CENTER PO SCH; -riTUXimab 500 MG, riTUXimab FOR IV INJ CONC 100 MG in NS (IVPB) CANCER CENTER ONLY 150 ML IV SCH
[2020-04-25 13:30] LABS: BASOPHILS # (AUTO) 0.1 10^3/uL (0.0-0.1); BASOPHILS % (AUTO) 1 % (0-10); EOSINOPHILS # (AUTO) 0.3 10^3/uL (0.0-0.3); EOSINOPHILS % (AUTO) 4 % (0-10); HEMATOCRIT 42 % (35-52); HEMOGLOBIN 13.4 G/DL (11.5-16.0); LYMPHOCYTES # (AUTO) 1.3 X 10^3 (1.0-4.0); LYMPHOCYTES % (AUTO) 17 % (12-44); MEAN CORPUSCULAR HEMOGLOBIN 29 PG (25-34); MEAN CORPUSCULAR HGB CONC 32 G/DL (32-36); MEAN CORPUSCULAR VOLUME 91 FL (80-99); MEAN PLATELET VOLUME 8.9 FL (7.4-10.4); MONOCYTES % (AUTO) 13 % (0-12); NEUTROPHILS # (AUTO) 4.8 X 10^3 (1.8-7.8); NEUTROPHILS % (AUTO) 65 % (42-75); PLATELET COUNT 275 10^3/uL (130-400); WHITE BLOOD COUNT 7.5 10^3/uL (4.3-11.0)
[2020-04-25 13:49] LABS: ALANINE AMINOTRANSFERASE 26 U/L (0-55); ALBUMIN 4.1 GM/DL (3.2-4.5); ALKALINE PHOSPHATASE 182 U/L (40-136); BILIRUBIN,TOTAL 0.4 MG/DL (0.1-1.0); BUN/CREATININE RATIO 19; CALCIUM 9.8 MG/DL (8.5-10.1); CARBON DIOXIDE 26 MMOL/L (21-32); CHLORIDE 104 MMOL/L (98-107); CREATININE SERUM 0.84 MG/DL (0.60-1.30); GFR ESTIMATED > 60; GLUCOSE 107 MG/DL (70-105); POTASSIUM 4.2 MMOL/L (3.6-5.0); SODIUM 141 MMOL/L (135-145); TOTAL PROTEIN 7.9 GM/DL (6.4-8.2)
== END 2020-07-24 | disposition home or self-care (01) ==
LOC: ONC 13:16
PROVIDERS: ATTEND Internal Medicine Hematology & Oncology
DX: C83.34 Diffuse large B-cell lymphoma, lymph nodes of axilla and upper limb (principal); C85.14 Unspecified B-cell lymphoma, lymph nodes of axilla and upper limb; C83.39 Diffuse large B-cell lymphoma, extranodal and solid organ sites
CPT/HCPCS: 80053; 83615; 85025; G0463; 99213

== ENCOUNTER 2020-10-30 12:33 | Observation (INO) | payer OTHER, MEDICARE ==
[~2020-10-30] VITALS: Ht 167 cm; Wt 67.2 kg
[~2020-10-30 12:33] MED LIST changes: +CALC-1026; -CALC-664
[2020-10-30] MEDS ORDERED: fentaNYL INJECTION 100 MCG/2 ML AMP IVP ONE (12:45)
[2020-10-30 13:15] LABS: HEMOGLOBIN 13.7 g/dL (11.5-16.0); MEAN PLATELET VOLUME 9.8 fL (9.0-12.2); WHITE BLOOD COUNT 9.9 10^3/uL (4.3-11.0)
[2020-10-30 13:33] LABS: CHLORIDE 107 MMOL/L (98-107); POTASSIUM 4.6 MMOL/L (3.6-5.0); SODIUM 141 MMOL/L (135-145)
[2020-10-30 13:34] LABS: INR 1.1 (0.8-1.4); PROTHROMBIN TIME PATIENT 14.6 SEC (12.2-14.7)
[2020-10-30 13:35] LABS: GLUCOSE 111 MG/DL (70-105)
[2020-10-30 13:36] LABS: CARBON DIOXIDE 23 MMOL/L (21-32)
[2020-10-30 13:37] LABS: BILIRUBIN,TOTAL 0.4 MG/DL (0.1-1.0)
[2020-10-30 13:39] LABS: ALKALINE PHOSPHATASE 127 U/L (40-136); CREATININE SERUM 0.91 MG/DL (0.60-1.30); GFR ESTIMATED 60
[2020-10-30 13:40] LABS: BUN/CREATININE RATIO 16
[2020-10-30 13:41] LABS: BILIRUBIN,DIRECT 0.2 MG/DL (0.0-0.3); BILIRUBIN,INDIRECT 0.2 MG/DL
[2020-10-30 13:42] LABS: ALANINE AMINOTRANSFERASE 19 U/L (0-55)
--- NOTE | 2020-10-30 14:23 | Diagnostic Imaging Report ---
INDICATION: Pain. COMPARISON: 12/16/2019. FINDINGS: The right-sided pleural effusion present on the prior exam has resolved. No evidence for pleural fluid or pneumothorax. The heart is enlarged and there is some prominence of the central pulmonary vascularity as well as some mild peripheral interstitial opacities and Karime Bs, suggestive of mild edema. No evidence for pleural fluid. No pneumothorax. IMPRESSION: 1. Mild cardiomegaly, vascular congestion, and probable mild interstitial edema. 2. Resolution of previous pleural effusions. Dictated by: Dictated on workstation # [id number]
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
--- NOTE | 2020-10-30 14:41 | Diagnostic Imaging Report ---
INDICATION: Bilateral knee pain. FINDINGS: 4 views. AP views show good preservation of joint spaces with smooth articulating surfaces. No evidence of chondrocalcinosis or loose bodies. Lateral view show good alignment of the patellofemoral joint. No hypertrophic changes. No chondrocalcinosis or loose bodies demonstrated. There is rather dense calcification of the femoral and popliteal arteries bilaterally. IMPRESSION: Normal bilateral knees.. Dictated by: Dictated on workstation # [id number]
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
[2020-10-30] MEDS ORDERED: morphine INJ 10 MG/ML 1ML (SYR OR VIAL) IVP STA (15:17)
[2020-10-30] MEDS ORDERED: HYDROcodone/APAP 5 MG/325 MG (LORTAB) TAB PO ONE (16:45)
[2020-10-30] MEDS ORDERED: ONDANSETRON 4 MG/2 ML (SDV) Z0FRAN IVP ONE (16:45)
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
[2020-10-30] MEDS ORDERED: CATHETER FLUSH 10 ML SYR IV PRN (18:00)
[2020-10-30] MEDS ORDERED: ONDANSETRON 4 MG/2 ML (SDV) Z0FRAN IV PRN (18:00)
[2020-10-30] MEDS: HYDROcodone/APAP 5 MG/325 MG (LORTAB) TAB PO PRN (19:54)
[2020-10-30 20:00] VITALS: BP 113/60
[2020-10-30] MEDS: CATHETER FLUSH 10 ML SYR IV SCH (20:54)
[2020-10-30] MEDS: fentaNYL INJECTION 100 MCG/2 ML AMP IV PRN (20:55)
[2020-10-30 23:52] VITALS: BP 95/65
[2020-10-31] MEDS: HYDROcodone/APAP 5 MG/325 MG (LORTAB) TAB PO PRN ×3 (00:13→09:15)
[2020-10-31] MEDS: fentaNYL INJECTION 100 MCG/2 ML AMP IV PRN ×3 (03:20→12:00)
[2020-10-31 04:00] VITALS: BP 119/55
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
[2020-10-31 06:01] LABS: BASOPHILS # (AUTO) 0.1 10^3/uL (0.0-0.1); BASOPHILS % (AUTO) 1 % (0-10); EOSINOPHILS # (AUTO) 0.4 10^3/uL (0.0-0.3); EOSINOPHILS % (AUTO) 6 % (0-10); HEMATOCRIT 35 % (35-52); HEMOGLOBIN 11.3 g/dL (11.5-16.0); LYMPHOCYTES # (AUTO) 1.3 10^3/uL (1.0-4.0); LYMPHOCYTES % (AUTO) 18 % (12-44); MEAN CORPUSCULAR HEMOGLOBIN 33 pg (25-34); MEAN CORPUSCULAR HGB CONC 32 g/dL (32-36); MEAN CORPUSCULAR VOLUME 101 fL (80-99); MEAN PLATELET VOLUME 9.5 fL (9.0-12.2); MONOCYTES % (AUTO) 15 % (0-12); NEUTROPHILS # (AUTO) 4.1 10^3/uL (1.8-7.8); NEUTROPHILS % (AUTO) 60 % (42-75); PLATELET COUNT 211 10^3/uL (130-400); WHITE BLOOD COUNT 6.9 10^3/uL (4.3-11.0)
[2020-10-31 06:11] LABS: ALBUMIN 3.3 GM/DL (3.2-4.5)
[2020-10-31 06:12] LABS: POTASSIUM 4.4 MMOL/L (3.6-5.0)
[2020-10-31 06:13] LABS: CALCIUM 8.2 MG/DL (8.5-10.1)
[2020-10-31 06:14] LABS: TOTAL PROTEIN 6.2 GM/DL (6.4-8.2)
[2020-10-31 06:16] LABS: BILIRUBIN,TOTAL 0.4 MG/DL (0.1-1.0)
[2020-10-31 06:17] LABS: PHOSPHORUS 3.7 MG/DL (2.3-4.7)
[2020-10-31 06:18] LABS: CREATININE SERUM 0.96 MG/DL (0.60-1.30)
[2020-10-31 06:20] LABS: MAGNESIUM 1.9 MG/DL (1.6-2.4)
[2020-10-31] MEDS: CATHETER FLUSH 10 ML SYR IV SCH (06:27)
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
[2020-10-31] MEDS ORDERED: FLECAINIDE 100 MG (TAMBOCOR) TAB PO NR (09:30)
[2020-10-31] MEDS ORDERED: MELATONIN 3 MG TABLET PO PRN (09:30)
[2020-10-31] MEDS ORDERED: CARVEDILOL 6.25 MG (COREG) TAB PO NR (09:30)
[2020-10-31] MEDS ORDERED: FAMOTIDINE 20 MG (PEPCID) TABLET PO NR (09:30)
[2020-10-31] MEDS ORDERED: polyethylene glycoL POWDER 17 GM (MIRALAX) PACK PO PRN (09:30)
[2020-10-31] MEDS ORDERED: ANTACID SUSP 30 ML UDC (MYLANTA) PO PRN (09:30)
[2020-10-31] MEDS ORDERED: ACETAMINOPHEN 325 MG TABLET PO PRN (09:30)
[2020-10-31] MEDS ORDERED: APIX2.5T PO (11:22)
[2020-10-31] MEDS ORDERED: METF-865 PO (11:22)
[2020-10-31] MEDS ORDERED: ASPI-1238 PO (11:22)
[2020-10-31] MEDS ORDERED: LOSA50TA63 PO (11:22)
[2020-10-31] MEDS ORDERED: CHOL-34 PO (11:22)
[2020-10-31] MEDS ORDERED: FLEC100T PO (11:22)
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
[2020-10-31 12:00] VITALS: BP 124/57
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
[2020-10-31] MEDS ORDERED: metFORMIN XR 500 MG (GLUCOPHAGE XR) TAB PO SCH (17:00)
[2020-10-31] MEDS ORDERED: DOCUSATE SODIUM 100 MG (COLACE) CAP PO SCH (21:00)
[2020-10-31] MEDS ORDERED: FLECAINIDE 100 MG (TAMBOCOR) TAB PO SCH (21:00)
[2020-10-31] MEDS ORDERED: SENNOSIDES 8.6 MG (SENOKOT) TAB PO SCH (21:00)
[2020-10-31] MEDS ORDERED: CARVEDILOL 6.25 MG (COREG) TAB PO SCH (21:00)
[2020-11-01] MEDS ORDERED: FAMOTIDINE 20 MG (PEPCID) TABLET PO SCH (09:00)
== END 2020-10-31 13:03 | disposition home or self-care (01) ==
LOC: EDUNIT# 12:33 → ER 12:34 → 4TH 15:49 → CSD 17:28
PROVIDERS: ADMIT Surgery; ATTEND Surgery
DX: S27.322A Contusion of lung, bilateral, initial encounter (principal); R09.02 Hypoxemia; I48.91 Unspecified atrial fibrillation; J44.9 Chronic obstructive pulmonary disease, unspecified; I10 Essential (primary) hypertension; K21.9 Gastro-esophageal reflux disease without esophagitis; K92.2 Gastrointestinal hemorrhage, unspecified; F41.9 Anxiety disorder, unspecified; F32.9 Major depressive disorder, single episode, unspecified; M06.9 Rheumatoid arthritis, unspecified; D64.9 Anemia, unspecified; S80.02XA Contusion of left knee, initial encounter; S32.019A Unspecified fracture of first lumbar vertebra, initial encounter for closed fracture; Z79.01 Long term (current) use of anticoagulants; Z79.899 Other long term (current) drug therapy; Z79.82 Long term (current) use of aspirin; Z79.84 Long term (current) use of oral hypoglycemic drugs; Z88.0 Allergy status to penicillin; Z91.041 Radiographic dye allergy status; Z88.8 Allergy status to other drugs, medicaments and biological substances; Z90.710 Acquired absence of both cervix and uterus; V89.2XXA Person injured in unspecified motor-vehicle accident, traffic, initial encounter; Z20.822 Contact with and (suspected) exposure to COVID-19
CPT/HCPCS: 70450; 71045; 71250; 72125; 73560; 74176; 80048; 80053; 80076; 83735; 83880; 84100; 84703; 85025; 85027; 85610; 85730; 86141; 96374; 96375; 99284; G0378; G0480; U0002; 36415; 80320; 87635

== ENCOUNTER 2020-11-03 10:51 | Emergency (ER) | payer OTHER, MEDICARE ==
[~2020-11-03] VITALS: Ht 167.7 cm; Wt 67.1 kg
[~2020-11-03 10:51] MED LIST changes: +ASPI-1238 PO; +CHOL-34 PO; +LOSA50TA63 PO; +METF-865 PO
[2020-11-03] MEDS ORDERED: fentaNYL INJECTION 100 MCG/2 ML AMP IVP ONE (13:15)
[2020-11-03] MEDS ORDERED: ACHD5005 PO (13:17)
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
[2020-11-03 13:44] VITALS: BP 127/80
[2020-11-03] MEDS ORDERED: fentaNYL INJECTION 100 MCG/2 ML AMP IM ONE (13:45)
== END 2020-11-03 13:45 | disposition home or self-care (01) ==
LOC: EDUNIT# 10:51 → ER 10:53
DX: S32.009D Unspecified fracture of unspecified lumbar vertebra, subsequent encounter for fracture with routine healing (principal); I10 Essential (primary) hypertension; I48.91 Unspecified atrial fibrillation; F41.9 Anxiety disorder, unspecified; F32.9 Major depressive disorder, single episode, unspecified; E11.9 Type 2 diabetes mellitus without complications; M06.9 Rheumatoid arthritis, unspecified; K21.9 Gastro-esophageal reflux disease without esophagitis; Z85.72 Personal history of non-Hodgkin lymphomas; Z87.01 Personal history of pneumonia (recurrent); Z79.02 Long term (current) use of antithrombotics/antiplatelets; Z79.82 Long term (current) use of aspirin; Z79.52 Long term (current) use of systemic steroids; Z79.84 Long term (current) use of oral hypoglycemic drugs; Z88.1 Allergy status to other antibiotic agents; Z88.0 Allergy status to penicillin; Z88.8 Allergy status to other drugs, medicaments and biological substances; V87.7XXD Person injured in collision between other specified motor vehicles (traffic), subsequent encounter
CPT/HCPCS: 96372

== ENCOUNTER → 2020-12-05 | Outpatient (CLI) | payer MEDICARE, OTHER ==
--- NOTE | 2020-12-05 12:21 | Diagnostic Imaging Report ---
INDICATION: Routine screening. COMPARISON: 09/27/2019 and 06/18/2018. TECHNIQUE: 2D and 3D bilateral screening mammography was performed with CAD. FINDINGS: Both breasts are heterogeneously dense, limiting the sensitivity of mammography. Scattered benign parenchymal and vascular calcifications are noted bilaterally. A biopsy clip in the left breast is again seen. No mass or malignant appearing microcalcifications are identified. The axillae are unremarkable. IMPRESSION: No mammographic features suspicious for malignancy are identified. ACR BI-RADS Category 2: Benign findings. Result letter will be mailed to the patient. Note: At least 10% of breast cancer is not imaged by mammography. Dictated by: Dictated on workstation # [id number]
== END ==
LOC: RAD 11:04
PROVIDERS: ATTEND Internal Medicine
DX: Z12.31 Encounter for screening mammogram for malignant neoplasm of breast (principal)
CPT/HCPCS: 77063; 77067

== ENCOUNTER 2020-12-14 10:49 | Outpatient (RCR) | payer MEDICARE, OTHER ==
[2020-09-22 10:19] LABS: BASOPHILS # (AUTO) 0.1 10^3/uL (0.0-0.1); BASOPHILS % (AUTO) 2 % (0-10); EOSINOPHILS # (AUTO) 0.3 10^3/uL (0.0-0.3); EOSINOPHILS % (AUTO) 5 % (0-10); HEMATOCRIT 41 % (35-52); HEMOGLOBIN 13.4 g/dL (11.5-16.0); LYMPHOCYTES # (AUTO) 1.6 10^3/uL (1.0-4.0); LYMPHOCYTES % (AUTO) 24 % (12-44); MEAN CORPUSCULAR HEMOGLOBIN 33 pg (25-34); MEAN CORPUSCULAR HGB CONC 33 g/dL (32-36); MEAN CORPUSCULAR VOLUME 99 fL (80-99); MEAN PLATELET VOLUME 9.1 fL (9.0-12.2); MONOCYTES # (AUTO) 0.9 10^3/uL (0.0-1.0); MONOCYTES % (AUTO) 13 % (0-12); NEUTROPHILS # (AUTO) 3.9 10^3/uL (1.8-7.8); NEUTROPHILS % (AUTO) 57 % (42-75); PLATELET COUNT 215 10^3/uL (130-400); WHITE BLOOD COUNT 6.9 10^3/uL (4.3-11.0)
[2020-09-22 10:37] LABS: ALANINE AMINOTRANSFERASE 21 U/L (0-55); ALBUMIN 3.8 GM/DL (3.2-4.5); ALKALINE PHOSPHATASE 132 U/L (40-136); BILIRUBIN,TOTAL 0.3 MG/DL (0.1-1.0); BUN/CREATININE RATIO 18; CALCIUM 9.2 MG/DL (8.5-10.1); CARBON DIOXIDE 26 MMOL/L (21-32); CHLORIDE 106 MMOL/L (98-107); CREATININE SERUM 0.85 MG/DL (0.60-1.30); GFR ESTIMATED > 60; GLUCOSE 77 MG/DL (70-105); POTASSIUM 4.1 MMOL/L (3.6-5.0); SODIUM 143 MMOL/L (135-145); TOTAL PROTEIN 7.3 GM/DL (6.4-8.2)
[~2020-12-14 10:49] MED LIST changes: +CALC600T91 PO; -CLC600T PO
[2020-12-14 10:59] LABS: BASOPHILS # (AUTO) 0.1 10^3/uL (0.0-0.1); BASOPHILS % (AUTO) 1 % (0-10); EOSINOPHILS # (AUTO) 0.6 10^3/uL (0.0-0.3); EOSINOPHILS % (AUTO) 8 % (0-10); HEMATOCRIT 39 % (35-52); HEMOGLOBIN 12.3 g/dL (11.5-16.0); LYMPHOCYTES # (AUTO) 1.7 10^3/uL (1.0-4.0); LYMPHOCYTES % (AUTO) 23 % (12-44); MEAN CORPUSCULAR HEMOGLOBIN 32 pg (25-34); MEAN CORPUSCULAR HGB CONC 31 g/dL (32-36); MEAN CORPUSCULAR VOLUME 102 fL (80-99); MONOCYTES # (AUTO) 0.8 10^3/uL (0.0-1.0); MONOCYTES % (AUTO) 11 % (0-12); NEUTROPHILS # (AUTO) 4.3 10^3/uL (1.8-7.8); NEUTROPHILS % (AUTO) 57 % (42-75); PLATELET COUNT 263 10^3/uL (130-400); WHITE BLOOD COUNT 7.5 10^3/uL (4.3-11.0)
[2020-12-14 11:21] LABS: ALBUMIN 3.8 GM/DL (3.2-4.5); BILIRUBIN,TOTAL 0.3 MG/DL (0.1-1.0); CALCIUM 8.8 MG/DL (8.5-10.1); CREATININE SERUM 0.91 MG/DL (0.60-1.30); POTASSIUM 4.3 MMOL/L (3.6-5.0); TOTAL PROTEIN 7.4 GM/DL (6.4-8.2)
== END 2020-12-21 | disposition home or self-care (01) ==
LOC: ONC 10:49
PROVIDERS: ATTEND Internal Medicine Hematology & Oncology
DX: C83.30 Diffuse large B-cell lymphoma, unspecified site (principal); I48.91 Unspecified atrial fibrillation; E11.9 Type 2 diabetes mellitus without complications
CPT/HCPCS: 80053; 83615; 85025; G0463; 99213

== ENCOUNTER → 2021-02-19 | Outpatient (CLI) | payer MEDICARE, OTHER ==
--- NOTE | 2021-02-20 08:49 | Diagnostic Imaging Report ---
PROCEDURE: MRI right joint lower extremity without contrast. TECHNIQUE: Multiplanar, multisequence non contrast-enhanced MRI of the right lower extremity was accomplished. INDICATION: Knee pain EXAMINATION: Right knee MRI from 02/19/2021 FINDINGS: The extensor mechanism, ACL and PCL appear intact. The MCL is intact. There is mild surrounding edema which could be due to a mild sprain. The lateral collateral ligamentous complex is intact. There is T2 hyperintensity within the lateral tibial plateau and lateral femoral condyle which could be degenerative in nature versus contusion. There is moderate loss of cartilage in the adjacent lateral joint compartment. Mild to moderate loss of cartilage is seen in the medial joint space. There is mild thinning of the cartilage in the patellofemoral joint subchondral edema in the patella. There is a moderate joint effusion. A small slitlike Ruiz's cyst is noted. There is a multidirectional degenerative type tear involving the posterior and anterior horns of the lateral meniscus. A horizontal oblique tear is seen within the posterior horn of the medial meniscus extending down to the tibial surface. IMPRESSION: 1. Tears of the medial and lateral menisci as above. 2. Tricompartmental degenerative disease with T2 hyperintensity in the lateral femoral condyle and lateral tibial plateau either degenerative in nature versus contusion. 3. Findings of a possible mild MCL sprain. Ligaments and tendons otherwise unremarkable. Dictated by: Dictated on workstation # [id number]
== END ==
LOC: RAD 16:15
PROVIDERS: ATTEND Physician Assistant
DX: S83.241A Other tear of medial meniscus, current injury, right knee, initial encounter (principal); S83.281A Other tear of lateral meniscus, current injury, right knee, initial encounter; M17.11 Unilateral primary osteoarthritis, right knee; X58.XXXA Exposure to other specified factors, initial encounter
CPT/HCPCS: 73721

== ENCOUNTER 2021-02-25 11:16 | Emergency (ER) | payer MEDICARE, OTHER ==
[~2021-02-25] VITALS: Ht 165 cm; Wt 68.1 kg
[~2021-02-25 11:16] MED LIST changes: +DICL100G13 TOP; -DICL100G31 TOP; +MIRT-68 PO; -MIRT15TA6 PO
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
[2021-02-25 11:48] LABS: BASOPHILS # (AUTO) 0.1 10^3/uL (0.0-0.1); BASOPHILS % (AUTO) 1 % (0-10); EOSINOPHILS # (AUTO) 0.4 10^3/uL (0.0-0.3); EOSINOPHILS % (AUTO) 5 % (0-10); HEMATOCRIT 42 % (35-52); HEMOGLOBIN 12.9 g/dL (11.5-16.0); LYMPHOCYTES # (AUTO) 1.3 10^3/uL (1.0-4.0); LYMPHOCYTES % (AUTO) 16 % (12-44); MEAN CORPUSCULAR HEMOGLOBIN 30 pg (25-34); MEAN CORPUSCULAR HGB CONC 31 g/dL (32-36); MEAN CORPUSCULAR VOLUME 99 fL (80-99); MEAN PLATELET VOLUME 9.5 fL (9.0-12.2); MONOCYTES # (AUTO) 1.1 10^3/uL (0.0-1.0); MONOCYTES % (AUTO) 14 % (0-12); NEUTROPHILS % (AUTO) 64 % (42-75); PLATELET COUNT 232 10^3/uL (130-400); WHITE BLOOD COUNT 7.9 10^3/uL (4.3-11.0)
[2021-02-25 11:56] LABS: POTASSIUM 4.5 MMOL/L (3.6-5.0)
[2021-02-25 11:57] LABS: CALCIUM 8.7 MG/DL (8.5-10.1)
[2021-02-25 12:02] LABS: CREATININE SERUM 0.96 MG/DL (0.60-1.30)
[2021-02-25 12:12] LABS: BILIRUBIN,URINE NEGATIVE (NEGATIVE); CLARITY,URINE SL CLOUDY; COLOR,URINE ORANGE; GLUCOSE, URINE (UA) TRACE (NEGATIVE); KETONES,URINE NEGATIVE (NEGATIVE); LEUKOCYTE ESTERASE ,URINE 3+ (NEGATIVE); NITRITE,URINE POSITIVE (NEGATIVE); PH,URINE 6.5 (5-9); PROTEIN,URINE TRACE (NEGATIVE)
[2021-02-25 12:19] LABS: RBC,URINE 0-2 /HPF
[2021-02-25 12:20] LABS: BACTERIA,URINE MODERATE /HPF; WBC,URINE 50-100 /HPF
[2021-02-25] MEDS ORDERED: LEVO250T46 PO (12:40)
[2021-02-25 12:50] VITALS: BP 144/47
== END 2021-02-25 12:49 | disposition home or self-care (01) ==
LOC: EDUNIT# 11:16 → ER 11:17
DX: N39.0 Urinary tract infection, site not specified (principal); J44.9 Chronic obstructive pulmonary disease, unspecified; I10 Essential (primary) hypertension; K21.9 Gastro-esophageal reflux disease without esophagitis; I48.91 Unspecified atrial fibrillation; F41.9 Anxiety disorder, unspecified; F32.9 Major depressive disorder, single episode, unspecified; E11.9 Type 2 diabetes mellitus without complications; Z88.2 Allergy status to sulfonamides; Z88.0 Allergy status to penicillin; Z88.1 Allergy status to other antibiotic agents; Z79.01 Long term (current) use of anticoagulants; Z79.82 Long term (current) use of aspirin; Z79.899 Other long term (current) drug therapy; Z79.84 Long term (current) use of oral hypoglycemic drugs
CPT/HCPCS: 36415; 80048; 81000; 85025; 87077; 87088

== ENCOUNTER 2021-03-07 15:20 | Outpatient (RCR) | payer MEDICARE, OTHER ==
[~2021-03-07 15:20] MED LIST changes: +LEVO250T46 PO
[2021-03-07 15:37] LABS: BASOPHILS # (AUTO) 0.1 10^3/uL (0.0-0.1); BASOPHILS % (AUTO) 1 % (0-10); EOSINOPHILS # (AUTO) 0.2 10^3/uL (0.0-0.3); EOSINOPHILS % (AUTO) 3 % (0-10); HEMATOCRIT 39 % (35-52); HEMOGLOBIN 12.2 g/dL (11.5-16.0); LYMPHOCYTES # (AUTO) 1.4 X 10^3 (1.0-4.0); LYMPHOCYTES % (AUTO) 21 % (12-44); MEAN CORPUSCULAR HEMOGLOBIN 30 pg (25-34); MEAN CORPUSCULAR HGB CONC 32 g/dL (32-36); MEAN CORPUSCULAR VOLUME 95 fL (80-99); MEAN PLATELET VOLUME 8.9 fL (9.0-12.2); MONOCYTES # (AUTO) 0.7 X 10^3 (0.0-1.0); MONOCYTES % (AUTO) 11 % (0-12); NEUTROPHILS # (AUTO) 4.3 X 10^3 (1.8-7.8); NEUTROPHILS % (AUTO) 64 % (42-75); PLATELET COUNT 245 10^3/uL (130-400); WHITE BLOOD COUNT 6.8 10^3/uL (4.3-11.0)
[2021-03-07 16:00] LABS: ALANINE AMINOTRANSFERASE 20 U/L (0-55); ALBUMIN 3.7 GM/DL (3.2-4.5); ALKALINE PHOSPHATASE 156 U/L (40-136); BILIRUBIN,TOTAL 0.3 MG/DL (0.1-1.0); BUN/CREATININE RATIO 20; CALCIUM 9.3 MG/DL (8.5-10.1); CARBON DIOXIDE 29 MMOL/L (21-32); CHLORIDE 105 MMOL/L (98-107); CREATININE SERUM 0.86 MG/DL (0.60-1.30); GFR ESTIMATED > 60; GLUCOSE 107 MG/DL (70-105); POTASSIUM 4.2 MMOL/L (3.6-5.0); SODIUM 142 MMOL/L (135-145); TOTAL PROTEIN 7.5 GM/DL (6.4-8.2)
[2021-05-20] MEDS ORDERED: ACHD5005 PO ×2 (20:47→20:56)
== END 2021-06-05 | disposition home or self-care (01) ==
LOC: ONC 15:20
PROVIDERS: ATTEND Internal Medicine Hematology & Oncology
DX: C83.30 Diffuse large B-cell lymphoma, unspecified site (principal); I48.91 Unspecified atrial fibrillation; E11.9 Type 2 diabetes mellitus without complications; Z92.21 Personal history of antineoplastic chemotherapy
CPT/HCPCS: 80053; 83615; 85025; G0463; 99213

== ENCOUNTER 2021-05-20 19:02 | Emergency (ER) | payer MEDICARE, OTHER ==
[~2021-05-20] VITALS: Ht 167 cm; Wt 68.0 kg
--- OUTSIDE RECORDS SUMMARY | 2021-05-20 19:08 | XMS REPORT | Clinical Summary ---
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 If you d o not see the information that you expected, contact Release of Information in [facility] Information Management department at [phone] for further assistan ce in locating additional records.[facility] Allergies Comments Active Allergy Reactions Severity Noted Date Adhesive Tape (Rosins) REDNESS Low 019 Lubiprostone RASH Medium 06/10/2019 Sulfamethoxazole-Trimetho RASH Medium 06/01 prim Ciprofloxacin RASH Medium 06/10/2019 Iodinated Contrast Media UNKNOWN Low 06/10 Venlafaxine UNKNOWN Low 06/10/2019 Cephalexin RASH Medium 06/10/2019 Latex REDNESS Low 06/10/2019 Linaclotide UNKNOWN Low 06/10/2019 Penicillins RASH Medium 06/10/2019 Medications End Date Status Medication Sig Dispensed Refills Start Date Active escitalopram oxalate Take 10 mg by 0 (LEXAPRO) 10 mg tablet mouth daily. Active atorvastatin (LIPITOR) 20 Take 20 mg by 0 mg tablet mouth daily. Active pantoprazole DR Take 40 mg by 0 (PROTONIX) 40 mg tablet mouth daily. Active flecainide (TAMBOCOR) 100 Take 100 mg 0 mg tablet by mouth twice daily. Active apixaban (ELIQUIS) 5 mg Take 5 mg by 0 tablet mouth twice daily. Active vit A/vit C/vit Take 1 Dose 0 E/zinc/copper by mouth (PRESERVISION AREDS PO) twice daily. Active Carboxymethylcellulose Place 2 drops 0 Sodium (REFRESH TEARS) into or 0.5 % drop around eye(s) twice daily. Active ferrous sulfate (FEOSOL, Take 325 mg 0 FEROSUL) 325 mg (65 mg by mouth iron) tablet daily. Take on an empty stomach at least 1 hour before or 2 hours after food. Active metFORMIN (GLUCOPHAGE) Take 500 mg 0 500 mg tablet by mouth daily. Active calcium carbonate Take by 0 (CALCIUM 600 PO) mouth. Active calcium carbonate/vitamin Take 1 tablet 0 D3 (CALCIUM 600 + D(3) by mouth PO) daily. Active cholecalciferol(+) Take 5,000 0 (VITAMIN D-3) 5,000 unit Units by tablet mouth daily. Active aspirin EC 81 mg tablet Take one 90 tablet 3 tablet by 9 mouth daily. Take with food. Active acetaminophen (TYLENOL) Take two 0 325 mg tablet tablets by 9 mouth every 4 hours as needed. Give for fevers Active furosemide (LASIX) 20 mg Take one 90 tablet 3 1 tablet tablet by 9 mouth daily. Active metoprolol tartrate Take one-half 180 tablet 3 06/02 (LOPRESSOR) 25 mg tablet tablet by 9 mouth twice daily. Active polyethylene glycol 3350 Take one 12 each 0 1 (MIRALAX) 17 g packet packet by 9 mouth daily as needed. Active senna/docusate Take one 0 (SENOKOT-S) 8.6/50 mg tablet by 9 tablet mouth twice daily as needed. Active prednisone (DELTASONE) 6 tabs po 133 tablet 0 2.5 mg tablet daily x 1 9 week, 5 tabs po daily x 2 weeks then 4 tabs daily until follow up with rheumatologis t Active Problems Problem Noted Date Fever of unknown origin 06/14/2019 Acute hypoxemic respiratory failure 06/14/2019 Anemia 06/14/2019 Generalized weakness 06/14/2019 Pancytopenia 06/10/2019 Surgical History Surgery Date Site/Laterality Comments ABDOMEN SURGERY HX HYSTERECTOMY HX APPENDECTOMY Medical History Medical History Date Comments Arrhythmia DM (diabetes mellitus) (HCC) Social History Date Tobacco Use Types Packs/Day Years Used Never Smoker Smokeless Tobacco: Never Used Comments Alcohol Use Standard Drinks/Week Not Currently 0 (1 standard drink = 0.6 o z pure alcohol) Sex Assigned at Date Recorded Not on file Last Filed Vital Signs Reading Time Taken Comments Vital Sign 116/43 06/21/2019 9:51 AM CDT Blood Pressure 72 06/21/2019 9:51 AM CDT Pulse 36.9 C (98.4 F) 06/21/2019 9:51 AM CDT Temperature - - Respiratory Rate 100% 06/21/2019 9:51 AM CDT Oxygen Saturation - - Inhaled Oxygen Concentration 64.4 kg (142 lb) 06/18/2019 7:33 AM CDT Weight 167.6 cm (5' 6") 06/18/2019 7:33 AM CDT Height 22.92 06/18/2019 7:33 AM CDT Body Mass Index Plan of Treatment Health Maintenance Due Date Last Done Comments MEDICARE ANNUAL WELLNESS 1945 VISIT DTAP/TDAP VACCINES (1 - 1961 Tdap) PHYSICAL (COMPREHENSIVE) 1961 EXAM SHINGLES RECOMBINANT 1993 VACCINE (1 of 2) OSTEOPOROSIS 01/29/2008 SCREENING/MONITORING PNEUMONIA (PPSV23) 01/29/2008 VACCINE (1 of 1 - PPSV23) INFLUENZA VACCINE 06/01/2021 HEPATITIS C SCREENING Completed 06/11/2019 Goals Goal Patient Associated Recent Progress Patient-Stat Aut hor Goal Type Problems ed? 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
[2021-05-20] MEDS ORDERED: HYDROcodone/APAP 7.5 MG/325 MG (LORTAB, LORCET PLUS) TABLET PO STA (19:45)
--- NOTE | 2021-05-20 19:51 | ED Lower Extremity ---
General Chief Complaint: Lower Extremity Stated Complaint: R KNEE SWELLING/PAIN History of Present Illness Date Seen by Provider: May 20, 2021 Time Seen by Provider: 19:35 Initial Comments 76-year-old female presents for right knee pain and swelling that has been present for approximately 3 months. She had an MRI in January 2021 that showed medial and lateral menisci tears. She has been seeing Dr. Rosas in [place] and having aspirations and steroid injections. Her last one being approximately 2 weeks ago. Symptoms are not worse today, she is frustrated because the knee continues to be painful and limits her ambulation, hari in the morning. She has been taking Tylenol once to twice daily for the pain. She is not taking any other medication. She was on tramadol in the past but did not feel it was helping much. She denies any recent falls or trauma to the right knee. Pain/Injury Location: right knee Method of Injury: unknown (TERE GIL) Allergies and Home Medications Allergies Coded Allergies: Cephalexin Monohydrate (Verified Allergy, Unknown, has tolerated Ancef, 08/03/19) Iodinated Contrast Media (Verified Allergy, Unknown, 10/29/19) Penicillins (Verified Allergy, Unknown, Has tolerated Ancef, 08/03/19) ciprofloxacin (Verified Allergy, Unknown, 02/25/21) iodine (Verified Allergy, Unknown, 07/08/19) linaclotide (Verified Allergy, Unknown, 07/28/19) lubiprostone (Verified Allergy, Unknown, 07/28/19) prednisolone (Verified Allergy, Unknown, 02/25/21) sulfamethoxazole (Verified Allergy, Unknown, 02/25/21) trimethoprim (Verified Allergy, Unknown, 02/25/21) venlafaxine HCl (Verified Allergy, Unknown, 07/08/19) Patient Home Medication List Home Medication List Reviewed: Yes (TERE GIL) Apixaban (Eliquis) 2.5 Mg Tablet, 2.5 MG PO BID, (Reported) Entered as Reported by: ALESHIA CONNELLY on 10/31/20 112 Aspirin (Aspirin EC) 81 Mg Tablet., 81 MG PO DAILY, (Reported) Entered as Reported by: ALESHIA CONNELLY on 10/31/20 1122 Atorvastatin Calcium (Atorvastatin Calcium) 20 Mg Tablet, 20 MG PO 1700, (Reported) Entered as Reported by: BRUNO GRIMALDO on 07/09/19 0910 Calcium Carbonate (Calcium) 600 Mg Tablet, 600 MG PO DAILY, (Reported) Entered as Reported by: ALESHIA CONNELLY on 12/15/19 131 Carboxymethylcellulose Sodium (Refresh Tears) 15 Ml Drops, 2 DROPS OU PRN PRN for DRY EYES, (Reported) Entered as Reported by: ALESHIA CONNELLY on 12/15/19 131 Carvedilol (Carvedilol) 6.25 Mg Tablet, 6.25 MG PO BID, (Reported) Entered as Reported by: BRUNO GRIMALDO on 10/15/19 0954 Cholecalciferol (Vitamin D3) (Vitamin D3) 25 Mcg Tablet, 25 MCG PO DAILY, (Reported) Entered as Reported by: ALESHIA CONNELLY on 10/31/20 112 Citalopram Hydrobromide (Citalopram HBr) 10 Mg Tablet, 10 MG PO BID, (Reported) Entered as Reported by: BRUNO GRIMALDO on 10/15/19 09 Estrogens Conjugated (Premarin) 0.45 Mg Tab, 0.45 MG PO DAILY, (Reported) Entered as Reported by: BRUNO GRIMALDO on 07/09/19 0910 Famotidine (Famotidine) 20 Mg Tablet, 20 MG PO BID, (Reported) Entered as Reported by: BRUNO GRIMALDO on 10/15/19 09 Flecainide Acetate (Flecainide Acetate) 100 Mg Tablet, 150 MG PO BID, (Reported) Entered as Reported by: ALESHIA CONNELLY on 10/31/20 112 Furosemide (Furosemide) 20 Mg Tablet, 20 MG PO DAILY PRN for SWELLING, (Reported) Entered as Reported by: MARGARET CARDOZA on 07/08/191999 Hydrocodone/Acetaminophen (Hydrocodone-Acetamin 5-325 mg) 1 Each Tablet, 1-2 TAB PO Q4H PRN for PAIN-MODERATE (5-7) Prescribed by: SELINA AKBAR on 11/03/20 131 Hydrocodone/Acetaminophen (Hydrocodone-Acetamin 5-325 mg) 1 Each Tablet, 1 TAB PO Q6H PRN for PAIN-MODERATE (5-7) Prescribed by: TERE GIL on 05/20/212056 Lactobacillus Combo No.10 (Probiotic) 1 Each Capsule, 1 EACH PO DAILY, (Reported) Entered as Reported by: ALESHIA CONNELLY on 12/15/19 1319 Levofloxacin (Levofloxacin) 250 Mg Tablet, 250 MG PO DAILY Prescribed by: KEVIN WASHBURN on 02/25/21 1240 Losartan Potassium (Losartan Potassium) 50 Mg Tablet, 50 MG PO DAILY, (Reported) Entered as Reported by: ALESHIA CONNELLY on 10/31/20 1122 Metformin HCl (Metformin HCl ER) 500 Mg Tab.er.24h, 500 MG PO 1700 W/MEAL, (Reported) Entered as Reported by: ALESHIA CONNELLY on 10/31/20 1122 Mirtazapine (Mirtazapine) 15 Mg Tablet, 15 MG PO HS, (Reported) Entered as Reported by: BRUNO GRIMALDO on 07/09/19 0901 Ondansetron HCl (Ondansetron HCl) 4 Mg Tablet, 4 MG PO Q6H PRN for NAUSEA/VOMITING-1ST LINE, (Reported) Entered as Reported by: BRUNO GRIMALDO on 10/15/19 0954 Pantoprazole Sodium (Pantoprazole Sodium) 40 Mg Tablet.dr, 40 MG PO DAILY, (Reported) Entered as Reported by: MARGARET CARDOZA on 07/08/191999 Vit A/Vit C/Vit E/Zinc/Copper (Preservision Areds Tablet) 1 Each Tablet, 2 TAB PO DAILY, (Reported) Entered as Reported by: BRUNO GRIMALDO on 07/09/19 0910 Review of Systems Constitutional: no symptoms reported Musculoskeletal: see HPI, joint pain (Right knee) (TERE GIL) All Other Systems Reviewed Negative Unless Noted: Yes (TERE GIL) Past Duvswfq-Kyongl-Fzmoog Hx Immunizations Up To Date Tetanus Booster (TDap): Unknown (TERE GIL) Seasonal Allergies Seasonal Allergies: Yes (TERE GIL) Past Medical History Surgeries: Yes Abdominal, Appendectomy, Bladder Surgery, Cardiac, Gallbladder, Hysterectomy Respiratory: Yes Pneumonia, COPD Cardiac: Yes Atrial Fibrillation, Hypertension, Valvular Heart Disease 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 Genitourinary: Yes (BLADDER PROLAPSE--S/P BLADDER SURGERIES WITH VAGINAL MESH) Bladder Infection Gastrointestinal: Yes (dysphagia) Gastroesophageal Reflux, Gastrointestinal Bleed, Chronic Constipation, Hiatal Hernia Musculoskeletal: Yes Rheumatoid Arthritis Endocrine: Yes Diabetes, Non-Insulin dep HEENT: No Loss of Vision: Denies Cancer: Yes Lymphoma What Type of Treatment Did You: Chemotherapy Psychosocial: Yes Anxiety, Depression Integumentary: No Blood Disorders: Yes (ANEMIA--UNKNOWN CAUSE) Adverse Reaction/Blood Tranf: No (LOUISETERE GARCIA) Family Medical History Reviewed Nursing Family Hx (TERE GIL) No Pertinent Family Hx (TERE GIL) Physical Exam Vital Signs Vital Signs - First Documented 05/20/21 19:46 Temp 36.7 Pulse 133 Resp 20 B/P (MAP) 132/52 (78) Pulse Ox 100 O2 Delivery Room Air (ADRI,ZAKI K DO) Vital Signs Capillary Refill : (LOUISETERE Silverman) Height, Weight, BMI Height: '" Weight: lbs. oz. kg; 25.00 BMI Method:Estimated General Appearance: WD/WN, no apparent distress Cardiovascular: normal peripheral pulses, regular rate, rhythm Respiratory: chest non-tender, lungs clear, normal breath sounds Knees: right knee normal range of motion, right knee joint effusion, right knee pain, right knee soft tissue tenderness, right knee swelling, right knee other (ROM 0-90 degrees; no instability, warmth or erythema. ) Neurologic/Psychiatric: no motor/sensory deficits, alert, normal mood/affect, oriented x 3 Skin: normal color, warm/dry (TERE GIL) Progress/Results/Core Measures Results/Orders Vital Signs/I&O 05/20/21 05/20/21 19:46 20:57 Temp 36.7 36.7 Pulse 133 90 Resp 20 20 B/P (MAP) 132/52 (78) 132/52 Pulse Ox 100 100 O2 Delivery Room Air Room Air (ADRI,ZAKI K DO) Progress Progress Note : Time: 19:35 Progress Note Patient seen and evaluated, will obtain x-ray of the right knee and give Lortab 7.5 mg. 2030 x-ray show advanced degenerative arthritis. Patient does report improvement in pain since taking the Lortab. Discharge instructions and return precautions discussed with her. It does not seem feasible that injections are going to help with her symptoms at this point and she may need to talk with an orthopedic surgeon about a knee replacement. Her has seen Dr. Haney in the past for a hip replacement, she will consider making an appointment with him. (TERE GIL) Diagnostic Imaging Diagonstic Imaging: Xray Plain Films/CT/US/NM/MRI: knee Comments NAME: [facility] REC#: [id number] PT STATUS: REG ER : 1945 PHYSICIAN: TERE GIL ADMIT DATE: 05/20/21/ER Draft Date of Exam:05/20/21 KNEE, RIGHT, 3 VIEWS INDICATION: Right knee pain and swelling. EXAMINATION: AP, oblique and lateral views of the right knee. FINDINGS: Moderate narrowing of the lateral knee joint compartment. There is subchondral sclerosis. Mild articular surface irregularity is also noted. There is evidence of at least mild fluid in the knee joint. IMPRESSION: Rather advanced lateral compartment right knee osteoarthritis with associated joint effusion. Dictated on workstation # [id number] Dict: 05/20/212012 Trans: 05/20/212026 Herrera [id number] Interpreted by: BRITTNEY JAY MD Electronically signed by: Reviewed: Reviewed by Me (TERE GIL) Departure Impression Primary Impression: Right knee pain Qualified Codes: M25.561 - Pain in right knee Additional Impression: Arthritis of right knee Disposition: HOME, SELF-CARE Condition: Stable Departure-Patient Inst. Decision time for Depature: 20:30 (TERE GIL) Referrals: LITZY SHAFER MD (PCP/Family) Primary Care Physician Patient Instructions: Knee Pain (DC) Add. Discharge Instructions: Continue to use your walker for ambulation. Follow-up with an orthopedic surgeon for further evaluation. You may alternate between heat and ice to your right knee for pain. Take the pain medication when you are not able to control the pain with other modalities. Return to the emergency department for new, urgent healthcare needs. All discharge instructions reviewed with patient and/or family. Voiced understanding. Scripts Hydrocodone/Acetaminophen (Hydrocodone-Acetamin 5-325 mg) 1 Each Tablet 1 TAB PO Q6H PRN for PAIN-MODERATE (5-7), #20 TAB 0 Refills Prov: TERE GIL 05/20/21 ATTENDING PHYSICIAN NOTE: I WAS PHYSICALLY PRESENT ER PHYSICIAN WHEN THIS PATIENT WAS IN ER, BUT WAS NOT INVOLVED IN DECISION MAKING OR ANY CARE OF THIS PATIENT. (ZAKI RUSH DO) Copy Copies To 1: EMERALD HANEY MD, AMY ARNP May 20, 2021 19:51 ZAKI RUSH DO May 21, 2021 04:21
[2021-05-20] MEDS ORDERED: HYDROcodone/APAP 7.5 MG/325 MG (LORTAB, LORCET PLUS) TABLET PO ONE (20:07)
--- NOTE | 2021-05-20 20:27 | Diagnostic Imaging Report ---
INDICATION: Right knee pain and swelling. EXAMINATION: AP, oblique and lateral views of the right knee. FINDINGS: Moderate narrowing of the lateral knee joint compartment. There is subchondral sclerosis. Mild articular surface irregularity is also noted. There is evidence of at least mild fluid in the knee joint. IMPRESSION: Rather advanced lateral compartment right knee osteoarthritis with associated joint effusion. Dictated by: Dictated on workstation # [id number]
[2021-05-20] MEDS ORDERED: ACHD5005 PO ×2 (20:47→20:56)
[2021-05-20 20:57] VITALS: BP 132/52
== END 2021-05-20 20:57 | disposition home or self-care (01) ==
LOC: EDUNIT# 19:02 → ER 19:05
DX: M17.11 Unilateral primary osteoarthritis, right knee (principal); J44.9 Chronic obstructive pulmonary disease, unspecified; I10 Essential (primary) hypertension; E11.9 Type 2 diabetes mellitus without complications; K21.9 Gastro-esophageal reflux disease without esophagitis; I48.91 Unspecified atrial fibrillation; M06.9 Rheumatoid arthritis, unspecified; F41.9 Anxiety disorder, unspecified; F32.9 Major depressive disorder, single episode, unspecified; D64.9 Anemia, unspecified; Z79.82 Long term (current) use of aspirin; Z79.01 Long term (current) use of anticoagulants; Z79.84 Long term (current) use of oral hypoglycemic drugs; Z79.899 Other long term (current) drug therapy
CPT/HCPCS: 73562

== ENCOUNTER → 2021-06-05 | Outpatient (CLI) | payer MEDICARE, OTHER ==
--- NOTE | 2021-06-05 14:57 | Diagnostic Imaging Report ---
PROCEDURE: CT right lower extremity without contrast. TECHNIQUE: Axially acquired CT was obtained through the right lower extremity without intravenous contrast. Auto Exposure Controls were utilized during the CT exam to meet ALARA standards for radiation dose reduction. INDICATION: Right knee pain COMPARISON: Radiographs from 05/19/2021 FINDINGS: There is severe degenerative change in the lateral compartment with marked joint space loss, subchondral sclerosis and cystlike changes. Moderate to severe degenerative changes seen in the medial compartment. There are mild degenerative changes in the patellofemoral compartment. There is a large right knee joint effusion. No acute fracture seen. There is calcific atherosclerosis. No acute osseous abnormality is seen in the right ankle or the right hip. IMPRESSION: 1. Advanced degenerative changes in the right knee, most severe in the lateral compartment. 2. Large right knee joint effusion Dictated by: Dictated on workstation # [id number]
== END ==
LOC: RAD 13:15
PROVIDERS: ATTEND Orthopaedic Surgery
DX: M17.11 Unilateral primary osteoarthritis, right knee (principal)
CPT/HCPCS: 73700

== ENCOUNTER 2021-06-14 14:38 | Outpatient (RCR) | payer MEDICARE, OTHER ==
[~2021-06-14 14:38] MED LIST changes: -CITA10TA7 PO; +CITA10TA9 PO; -LEVO250T46 PO; +LVF250T PO
[2021-06-14 14:46] LABS: BASOPHILS # (AUTO) 0.1 10^3/uL (0.0-0.1); BASOPHILS % (AUTO) 1 % (0-10); EOSINOPHILS # (AUTO) 0.4 10^3/uL (0.0-0.3); EOSINOPHILS % (AUTO) 5 % (0-10); HEMATOCRIT 36 % (35-52); LYMPHOCYTES # (AUTO) 1.7 10^3/uL (1.0-4.0); LYMPHOCYTES % (AUTO) 22 % (12-44); MEAN CORPUSCULAR HEMOGLOBIN 30 pg (25-34); MEAN CORPUSCULAR HGB CONC 31 g/dL (32-36); MEAN CORPUSCULAR VOLUME 95 fL (80-99); MONOCYTES # (AUTO) 1.1 10^3/uL (0.0-1.0); MONOCYTES % (AUTO) 14 % (0-12); NEUTROPHILS # (AUTO) 4.4 10^3/uL (1.8-7.8); NEUTROPHILS % (AUTO) 58 % (42-75); PLATELET COUNT 370 10^3/uL (130-400); WHITE BLOOD COUNT 7.6 10^3/uL (4.3-11.0)
[2021-06-14 15:07] LABS: ALBUMIN 3.6 GM/DL (3.2-4.5); BILIRUBIN,TOTAL 0.3 MG/DL (0.1-1.0); CALCIUM 9.1 MG/DL (8.5-10.1); CREATININE SERUM 0.97 MG/DL (0.60-1.30); POTASSIUM 4.2 MMOL/L (3.6-5.0); TOTAL PROTEIN 7.4 GM/DL (6.4-8.2)
[2021-06-21] MEDS ORDERED: DILT120T3 PO (14:25)
[2021-06-21] MEDS ORDERED: PREG50CA65 PO (14:25)
[2021-06-21] MEDS ORDERED: CHOL200014 PO (14:25)
[2021-06-21] MEDS ORDERED: MIRT-69 PO (14:25)
[2021-07-04] MEDS ORDERED: MIRT-68 PO (14:44)
[2021-07-13] MEDS ORDERED: DOCU100C37 PO (05:51)
[2021-07-13] MEDS ORDERED: OXC5T PO (05:51)
[2021-07-28] MEDS ORDERED: DOXY100T2 PO (19:16)
[2021-07-28] MEDS ORDERED: OXYC1TAB87 PO (19:16)
[2021-07-28] MEDS ORDERED: LACT1CAP62 PO (19:16)
[2021-07-28] MEDS ORDERED: CLIN-144 PO (19:16)
[2021-08-02] MEDS ORDERED: DOXY100T2 PO (11:07)
[2021-08-02] MEDS ORDERED: CLIN-144 PO (11:07)
[2021-08-02] MEDS ORDERED: ACHD5005 PO (11:07)
[2021-08-02] MEDS ORDERED: DOCU100C37 PO (11:07)
[2021-08-09] MEDS ORDERED: POTA-169 PO (08:00)
[2021-08-09] MEDS ORDERED: APIX5TAB PO (08:00)
[2021-08-09] MEDS ORDERED: FURO40TA4 PO (08:00)
[2021-08-09] MEDS ORDERED: CARV12.53 PO (08:00)
[2021-08-09] MEDS ORDERED: OXC5T PO (10:41)
== END 2021-08-31 | disposition home or self-care (01) ==
LOC: ONC 14:38
PROVIDERS: ATTEND Internal Medicine Hematology & Oncology
DX: C83.30 Diffuse large B-cell lymphoma, unspecified site (principal); I48.91 Unspecified atrial fibrillation; E11.9 Type 2 diabetes mellitus without complications; Z92.21 Personal history of antineoplastic chemotherapy
CPT/HCPCS: 80053; 83615; 85025; G0463; 99213

== ENCOUNTER 2021-07-02 05:28 | Outpatient (RCR) | payer MEDICARE, OTHER ==
[2021-06-21 12:57] VITALS: BP 140/69
[2021-06-21 14:03] LABS: BASOPHILS # (AUTO) 0.1 10^3/uL (0.0-0.1); BASOPHILS % (AUTO) 1 % (0-10); EOSINOPHILS # (AUTO) 0.3 10^3/uL (0.0-0.3); EOSINOPHILS % (AUTO) 4 % (0-10); HEMATOCRIT 35 % (35-52); HEMOGLOBIN 10.8 g/dL (11.5-16.0); LYMPHOCYTES # (AUTO) 1.6 10^3/uL (1.0-4.0); LYMPHOCYTES % (AUTO) 23 % (12-44); MEAN CORPUSCULAR HEMOGLOBIN 29 pg (25-34); MEAN CORPUSCULAR HGB CONC 31 g/dL (32-36); MEAN CORPUSCULAR VOLUME 95 fL (80-99); MEAN PLATELET VOLUME 9.2 fL (9.0-12.2); MONOCYTES # (AUTO) 0.8 10^3/uL (0.0-1.0); MONOCYTES % (AUTO) 12 % (0-12); NEUTROPHILS # (AUTO) 4.1 10^3/uL (1.8-7.8); NEUTROPHILS % (AUTO) 60 % (42-75); PLATELET COUNT 274 10^3/uL (130-400); WHITE BLOOD COUNT 6.8 10^3/uL (4.3-11.0)
[2021-06-21 14:19] LABS: BILIRUBIN,URINE NEGATIVE (NEGATIVE); CLARITY,URINE SL CLOUDY; COLOR,URINE YELLOW; GLUCOSE, URINE (UA) NEGATIVE (NEGATIVE); KETONES,URINE NEGATIVE (NEGATIVE); LEUKOCYTE ESTERASE ,URINE 2+ (NEGATIVE); NITRITE,URINE NEGATIVE (NEGATIVE); PROTEIN,URINE NEGATIVE (NEGATIVE)
--- NOTE | 2021-06-21 14:22 | Diagnostic Imaging Report ---
INDICATION: Preoperative evaluation prior to knee replacement. EXAMINATION: 2 view chest 06/21/2021 FINDINGS: 2 views of the chest Heart is prominent. Pulmonary vasculature normal. The lungs and pleural spaces clear. There is postoperative changes incidentally noted in the cervical spine. IMPRESSION: 1. No acute cardiopulmonary process. Dictated by: Dictated on workstation # [id number]
[2021-06-21 14:26] LABS: INR 1.1 (0.8-1.4); PROTHROMBIN TIME PATIENT 14.9 SEC (12.2-14.7)
[2021-06-21 14:27] LABS: ERYTHROCYTE SEDIMENTATION RATE 69 MM/HR (0-30)
[2021-06-21 14:29] LABS: AMORPHOUS SEDIMENT,UR RARE AMOR URATES /LPF; BACTERIA,URINE TRACE /HPF
[2021-06-21 14:34] LABS: ALBUMIN 3.7 GM/DL (3.2-4.5); BILIRUBIN,TOTAL 0.3 MG/DL (0.1-1.0); CALCIUM 9.4 MG/DL (8.5-10.1); CREATININE SERUM 0.83 MG/DL (0.60-1.30); POTASSIUM 3.9 MMOL/L (3.6-5.0); TOTAL PROTEIN 7.6 GM/DL (6.4-8.2)
[~2021-07-02] VITALS: Ht 167.7 cm; Wt 68.8 kg
[~2021-07-02 05:28] MED LIST changes: +CHOL200014 PO; +CITA10TA7 PO; -CITA10TA9 PO; +DILT120T3 PO; +LEVO250T46 PO; -LVF250T PO; +MIRT-69 PO; +PREG50CA65 PO
== END 2021-07-02 09:03 | disposition home or self-care (01) ==
LOC: PREOP 05:28
PROVIDERS: ATTEND Orthopaedic Surgery
DX: Z01.818 Encounter for other preprocedural examination (principal); M17.11 Unilateral primary osteoarthritis, right knee; Z11.2 Encounter for screening for other bacterial diseases; Z20.822 Contact with and (suspected) exposure to COVID-19; R82.998 Other abnormal findings in urine
CPT/HCPCS: 36415; 71046; 80053; 81000; 85025; 85610; 85652; 86850; 86900; 86901; 87081; 87088; 87635; 93005

== ENCOUNTER 2021-07-04 07:30 | Inpatient (IN) | payer MEDICARE, OTHER ==
--- NOTE | 2021-06-22 06:26 | HISTORY AND PHYSICAL ---
DATE OF SERVICE: ADMISSION HISTORY AND PHYSICAL DATE OF SERVICE, DATE OF SURGERY, DATE OF ADMISSION: 07/04/2021. This will be for inpatient admission on 07/04/2021 for right total knee arthroplasty. The patient will require regular inpatient admission due to pain management, need for physical therapy and comorbidities. HISTORY: The patient is a 76-year-old female with long-standing progressive right knee pain. She reports a several month history of worsening pain. She has undergone treatment with injections without relief. She ambulates with a walker because of the knee. She denies any specific injury. Radiographs reveal severe lateral compartment arthrosis with valgus alignment. Due to functional impairment and failure to improve with conservative measures, the patient elected to proceed with surgical intervention. REVIEW OF SYSTEMS: No chest pain, no shortness of breath, no dysuria. PAST MEDICAL HISTORY: Diabetes, hypertension, headaches, heartburn, stage I kidney disease, arthritis, mitral valve prolapse, hypercholesterolemia, atrial fibrillation. PAST SURGICAL HISTORY: Appendectomy, cholecystectomy, hysterectomy, hemorrhoidectomy, sinus anterior cervical fusion. FAMILY HISTORY: Unknown. PRIMARY CARE PROVIDER: Dr. Santos. MEDICATIONS: Lyrica, losartan, calcium, Glucophage, Celexa, atorvastatin, Premarin, pantoprazole, diltiazem, aspirin, Eliquis, calcium, carvedilol, furosemide, mirtazapine, flecainide, levothyroxine. ALLERGIES: IODINE, LINZESS, PREDNISONE, AMITIZA, TAPE, BACTRIM, PENICILLIN, CIPRO, KEFLEX, EFFEXOR. SOCIAL HISTORY: The patient denies alcohol and tobacco use. RADIOGRAPHS: Reveal severe tricompartmental osteoarthritis with valgus alignment. PHYSICAL EXAMINATION: GENERAL: The patient is well developed, well nourished, in no acute distress. HEENT: Normocephalic, atraumatic. Pupils are equal, round and reactive to light. Oropharynx is clear. NECK: Supple, with no lymphadenopathy. LUNGS: Clear to auscultation bilaterally. HEART: Regular rate and rhythm. ABDOMEN: Soft, nontender, nondistended. EXTREMITIES: The right lower extremity demonstrates a valgus alignment. She ambulates with an antalgic gait. She has mild effusion. Active range of motion 0/2/115. There is no varus or valgus laxity. Negative anterior and posterior drawer. Negative straight leg raise. IMPRESSION: Severe osteoarthritis, right knee. PLAN: Right total knee arthroplasty. The risks, benefits, options, ramifications and recovery have been discussed at length with the patient. She understands and wishes to proceed. Job ID: [id number] DocumentID: [id number] Dictated Date: 06/19/2021 15:27:47 Chemical Processing Supervisor Date: 06/19/2021 16:15:36 Dictated By: GEGE ARCE MD
[~2021-07-04] VITALS: Ht 167.6 cm; Wt 67.1 kg
[2021-07-04] VITALS (11 sets, daily range): BP systolic 106–192; BP diastolic 50–92
[~2021-07-04 07:30] MED LIST changes: +NALOXONE 0.4 MG/ML 1 ML (NARCAN) VIAL IV PRN; +ONDANSETRON 4 MG/2 ML (SDV) Z0FRAN IVP PRN; +morphine PCA 100 MG/100 ML BAG IV PRN
[2021-07-04] MEDS ORDERED: CEFUROXIME INJECTION 1,500 MG in WATER (STERILE) FOR INJECTION 15 ML IV ONE (07:45)
[2021-07-04] MEDS ORDERED: INTRA-ARTICULAR IU ONE ×5 (07:45)
[2021-07-04] MEDS ORDERED: SCOPOLAMINE 1.5 MG (TRANSDERM-SCOP) PATCH TOP ONE (08:15)
[2021-07-04] MEDS ORDERED: FAMOTIDINE 20MG/2ML IV (PEPCID) IV ONE (08:15)
[2021-07-04] MEDS ORDERED: ONDANSETRON 4 MG/2 ML (SDV) Z0FRAN IV ONE (08:15)
[2021-07-04] MEDS ORDERED: fentaNYL INJ 100 MCG/2 ML AMP ONE ×2 (08:20→09:54)
[2021-07-04] MEDS: LACTATED RINGERS 1,000 ML IV PRN ×2 (08:32→10:00)
[2021-07-04] MEDS ORDERED: FAMOTIDINE 20MG/2ML IV (PEPCID) ONE (08:46)
[2021-07-04] MEDS ORDERED: SCOPOLAMINE 1.5 MG (TRANSDERM-SCOP) PATCH ONE (08:47)
[2021-07-04] MEDS ORDERED: ONDANSETRON 4 MG/2 ML (SDV) Z0FRAN ONE ×3 (08:47→11:32)
--- NOTE | 2021-07-04 09:09 | Progress Note-Pre Operative ---
Pre-Operative Progress Note H&P Reviewed The H&P was reviewed, patient examined and no changes noted. Date Seen by Provider: Jul 04, 2021 Time Seen by Provider: 09:00 Date H&P Reviewed: Jul 04, 2021 Time H&P Reviewed: 07:11 Pre-Operative Diagnosis: right knee primary osteoarthritis GEGE ARCE MD Jul 04, 2021 09:09
--- NOTE | 2021-07-04 09:11 | Progress Note-Post Operative ---
Post-Operative Progess Note Surgeon (s)/Machine Room Operator (s) Surgeon GEGE ARCE MD Machine Room Operator: Ramon Inman Pre-Operative Diagnosis right knee osteoarthritis Post-Operative Diagnosis right knee osteoarthritis Procedure & Operative Findings Date of Procedure 07/04/21 Procedure Performed/Findings right total knee arthroplasty Anesthesia Type GETA Estimated Blood Loss Estimated blood loss (mL): 250ml Specimens/Packing Specimens Removed none Packing: none GEGE ARCE MD Jul 04, 2021 09:11
--- NOTE | 2021-07-04 09:14 | D/C HH Face to Face Order ---
D/C Face to Face Orders Reconcile Patient Problems Problems Reviewed?: Yes Instructions for Patient Via [facility], Patient Instructions/FollowUp: three weeks Physician to follow Patient: three weeks Discharge Diet for Home: Regular Diet Patient Data-Allergies,Ht & Wt Patient Allergies: Coded Allergies: Cephalexin Monohydrate (Verified Allergy, Unknown, has tolerated Ancef, 08/03/19) Iodinated Contrast Media (Verified Allergy, Unknown, 10/29/19) Penicillins (Verified Allergy, Unknown, Has tolerated Ancef, 08/03/19) ciprofloxacin (Verified Allergy, Unknown, 02/25/21) iodine (Verified Allergy, Unknown, 07/08/19) linaclotide (Verified Allergy, Unknown, 07/28/19) lubiprostone (Verified Allergy, Unknown, 07/28/19) prednisolone (Verified Allergy, Unknown, 02/25/21) sulfamethoxazole (Verified Allergy, Unknown, 02/25/21) trimethoprim (Verified Allergy, Unknown, 02/25/21) venlafaxine HCl (Verified Allergy, Unknown, 07/08/19) Home Health Need/Face to Face Date of Face to Face: Jul 04, 2021 Clinical Findings: Muscle weakness, Pain with ambulation, Unsteady gait I have seen Pt [id number]: Yes Discharged To: Home Diagnosis/Conditions: right total knee arthroplasty Patient is Homebound due to: Muscle weakness, Pain w/ambulation Homebound Status Due to the above stated illness, injury or surgical procedure (medical condition or diagnosis) and associated clinical findings, the patient is homebound because of his/her inability to leave home except with aid of a suppor tive device and/or person AND leaving the home requires a considerable and taxing effort or is medically contraindicated. Pt req the following assistanc: Walker Home Health Nursing Orders Home Health Services Order: Physical Therapy-Evaluate & Treat DC right knee abdirahman and apply steri strips 07/18/21 Therapy Orders Therapy Orders: Physical Therapy, PT to assess for OT Therapy Specific Orders: Eval assistive deivces, Teach enviro modifications/safety, Gait training, Increase strength/endurance, Provider maintenance therapy, Restore ROM Certify Stmt I certify that this patient is under my care and that I, a nurse practitioner or a physician; a surveyor instrument assistant working with me, had a face to face encounter that - meets the physician face to face encounter requirements with this patient as dated. GEGE ARCE MD Jul 04, 2021 09:14
[2021-07-04] MEDS ORDERED: MIDAZOLAM 2 MG/2 ML (VERSED) VIAL ONE (09:18)
[2021-07-04] MEDS ORDERED: proPOfol 200 MG/20 ML (DIPRIVAN) VIAL IV ONE (10:52)
[2021-07-04] MEDS ORDERED: SEVOFLURANE (ULTANE) 15 ML INHAL SOLN ONE (10:59)
--- NOTE | 2021-07-04 11:09 | Anesthesia-General Post-Op ---
General Patient Condition Mental Status/LOC: Same as Preop Cardiovascular: Satisfactory Nausea/Vomiting: Absent Respiratory: Satisfactory Pain: Controlled Complications: Absent Post Op Complications Complications None Follow Up Care/Instructions Patient Instructions None needed. Anesthesia/Patient Condition Patient Condition Patient is doing well, no complaints, stable vital signs, no apparent adverse anesthesia problems. No complications reported per nursing. HETAL VELARDE CRNA Jul 04, 2021 11:09
[2021-07-04] MEDS ORDERED: HYDROmorphone 2 MG/ML VIAL (DILAUDID) ONE (11:14)
[2021-07-04] MEDS ORDERED: HYDROmorphone 2 MG/ML VIAL (DILAUDID) IV ONE (11:15)
[2021-07-04] MEDS: ONDANSETRON 4 MG/2 ML (SDV) Z0FRAN IVP PRN ×2 (11:22→11:34)
--- NOTE | 2021-07-04 11:25 | Diagnostic Imaging Report ---
INDICATION: Status post right knee surgery. COMPARISON: None. FINDINGS: Two views of the right knee were obtained. Expected postoperative changes are seen from right knee total arthroplasty. Femoral and tibial components appear well-seated. There is no evidence of periprosthetic fracture. There is a small amount of subcutaneous emphysema in the soft tissues over the knee. Skin abdirahman are seen centrally over the anterior aspect of the knee. No unexpected radiopaque foreign bodies are identified. IMPRESSION: Expected postsurgical changes from right knee total arthroplasty, as described above. No unexpected radiopaque foreign bodies. Dictated by: Dictated on workstation # [id number]
--- NOTE | 2021-07-04 11:50 | Progress Note ---
Standard Progress Note Progress Notes/Assess & Plan Date Seen by a Provider: Jul 04, 2021 Time Seen by a Provider: 11:41 Progress/Assessment & Plan post op check no complaints radiographs--HW well positioned without fracture RLE--2plus DP pulse with brisk cap refill. intact DF and PF of toes and ankle intact sensation to light touch throughout s/p RTKA mobilize as able GEGE ARCE MD Jul 04, 2021 11:50
[2021-07-04] MEDS: SENNA W/DOCUSATE (SENOKOT S) TABLET PO SCH ×2 (12:39→20:49)
[2021-07-04] MEDS: oxyCODONE/APAP 5/325MG (PERCOCET 5) TABLET PO PRN ×2 (13:13→18:54)
[2021-07-04] MEDS: NS IV 1000 ML 1,000 ML IV SCH (13:15)
--- NOTE | 2021-07-04 13:44 | Consultation - Hospitalist ---
HPI History of Present Illness: HPI/Chief Complaint Pt is a 76yoCF with a PMH of B cell lymphoma, a fib, NIDDMII and HTN who was admitted for TKA by orthopedic surgery. I am consulted for medical management. She has no complaints at this time other than wanting to advance diet. She states she has no pain and has already been up walking with therapy. She states she is currently in remission for her lymphoma and no longer on chemotherapy. She is hopeful for discharge home on Friday. Source: patient Date Seen 07/04/21 Attending Physician Ghanshyam Morrell MD PCP Aakash Santos MD Referring Physician Date of Admission Jul 04, 2021 at 07:30 Home Medications & Allergies Home Medications Reviewed patient Home Medication Reconciliation performed by pharmacy medication reconciliations community development technician and/or nursing. Patients Allergies have been reviewed. Allergies Allergies Coded Allergies Cephalexin Monohydrate (Verified Allergy, Unknown, has tolerated Ancef, 08/03/19) Iodinated Contrast Media (Verified Allergy, Unknown, 10/29/19) Penicillins (Verified Allergy, Unknown, Has tolerated Ancef, 08/03/19) ciprofloxacin (Verified Allergy, Unknown, 02/25/21) iodine (Verified Allergy, Unknown, 07/08/19) linaclotide (Verified Allergy, Unknown, 07/28/19) lubiprostone (Verified Allergy, Unknown, 07/28/19) prednisolone (Verified Allergy, Unknown, 02/25/21) sulfamethoxazole (Verified Allergy, Unknown, 02/25/21) trimethoprim (Verified Allergy, Unknown, 02/25/21) venlafaxine HCl (Verified Allergy, Unknown, 07/08/19) Past Vpclxwf-Gwdhlr-Ucjxid Hx Patient Social History Marrital Status: Employed/Student: retired Tobacco Use?: No Smoking Status: Never a Smoker Use of E-Cig and/or Vaping dev: No Substance use?: No Alcohol Use?: No Pt feels they are or have been: No Immunizations Up To Date Date of Influenza Vaccine: Jun 01, 2021 First/Initial COVID19 Vaccinat: yes Second COVID19 Vaccination Esa: yes Tetanus Booster (TDap): Unknown Date of Pneumonia Vaccine: Oct 02, 2015 Seasonal Allergies Seasonal Allergies: Yes Current Status Advance Directives: Yes Advance Directive Location: Home Communicates: Verbally Primary Language: Nigerian Preferred Spoken Language: Nigerian Sensory deficits: Hearing impairment Past Medical History Surgeries: Appendectomy, Bladder Surgery, Cardiac, Gallbladder, Hysterectomy Pneumonia, COPD Currently Using CPAP: No Currently Using BIPAP: No Atrial Fibrillation, Hypertension, Valvular Heart Disease 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 COPY History: Menopausal Bladder Infection Gastroesophageal Reflux, Gastrointestinal Bleed, Chronic Constipation, Hiatal Hernia Arthritis, Rheumatoid Arthritis Diabetes, Non-Insulin dep Loss of Vision: Denies Lymphoma What Type of Treatment Did You: Chemotherapy Anxiety, Depression Blood Disorders: No Adverse Reaction/Blood Tranf: No Family Medical History No Pertinent Family Hx Review of Systems Constitutional: no symptoms reported EENTM: no symptoms reported Respiratory: no symptoms reported Cardiovascular: no symptoms reported Gastrointestinal: No nausea, No vomiting Genitourinary: no symptoms reported Musculoskeletal: joint pain Skin: no symptoms reported Psychiatric/Neurological: No Symptoms Reported Physical Exam Physical Exam Vital Signs Vital Signs - First Documented 07/04/21 07:30 Temp 36.3 Pulse 96 Resp 16 B/P (MAP) 130/63 (85) Pulse Ox 98 O2 Delivery Room Air Capillary Refill : Less Than 3 Seconds Height, Weight, BMI Height: '" Weight: lbs. oz. kg; 24.46 BMI Method:Estimated General Appearance: No Apparent Distress, WD/WN, Thin HEENT: PERRL/EOMI, Moist Mucous Membranes Neck: Normal Inspection, Supple Respiratory: Lungs Clear, No Accessory Muscle Use, No Respiratory Distress Cardiovascular: Regular Rate, Rhythm, No Murmur Gastrointestinal: Normal Bowel Sounds, Non Tender, Soft Extremity: Normal Capillary Refill, No Calf Tenderness, No Pedal Edema Neurologic/Psychiatric: Alert, Oriented x3, Normal Mood/Affect Results Results/Procedures Labs Patient resulted labs reviewed. Imaging: Reviewed Imaging Report Imaging [facility], [place] NAME: [facility] REC#: [id number] PT STATUS: ADM IN : 1945 PHYSICIAN: MARIO MACDONALD ADMIT DATE: 07/04/21/SURG Draft Date of Exam:07/04/21 KNEE, RIGHT, 2 VIEWS INDICATION: Status post right knee surgery. COMPARISON: None. FINDINGS: Two views of the right knee were obtained. Expected postoperative changes are seen from right knee total arthroplasty. Femoral and tibial components appear well-seated. There is no evidence of periprosthetic fracture. There is a small amount of subcutaneous emphysema in the soft tissues over the knee. Skin abdirahman are seen centrally over the anterior aspect of the knee. No unexpected radiopaque foreign bodies are identified. IMPRESSION: Expected postsurgical changes from right knee total arthroplasty, as described above. No unexpected radiopaque foreign bodies. Dictated on workstation # [id number] Dict: 07/04/21 1122 Trans: 07/04/21 1125 [id number] Interpreted by: MARYBETH LOPEZ MD Electronically signed by: Assessment/Plan Assessment and Plan Assess & Plan/Chief Complaint right knee osteoarthritis s/p tka management per primary pain regimen bowel regimen Lovenox PT/OT HTN pAF HLD Continue home meds as able Resume anticoagulation when ok with primary NIDDMII Continue home meds B cell lymphoma [facility] with [facility], Dr Payne In remission Diagnosis/Problems Diagnosis/Problems (1) Osteoarthritis of right knee Status: Acute Qualifiers: Osteoarthritis type: unspecified Qualified Codes: M17.11 - Unilateral primary osteoarthritis, right knee (2) Diffuse large B-cell lymphoma Status: Acute Qualifiers: Lymphoma site: unspecified region Qualified Codes: C83.30 - Diffuse large B-cell lymphoma, unspecified site (3) PAF (paroxysmal atrial fibrillation) Status: Chronic (4) Non-insulin dependent type 2 diabetes mellitus Status: Chronic (5) Hypertension Status: Chronic Qualifiers: Hypertension type: primary hypertension Qualified Codes: I10 - Essential (primary) hypertension (6) HLD (hyperlipidemia) Status: Chronic Qualifiers: Hyperlipidemia type: mixed hyperlipidemia Qualified Codes: E78.2 - Mixed hyperlipidemia ODELL JOHNSON MD Jul 04, 2021 13:44
--- NOTE | 2021-07-04 14:18 | Physical Therapy Evaluation ---
PT Evaluation-General Medical Diagnosis Admission Date Jul 04, 2021 at 07:30 Medical Diagnosis: right TKA Onset Date: Jul 04, 2021 Therapy Diagnosis Therapy Diagnosis: impaired mobility, strength, endurance, ROM Weight Bear Status Right Lower Extremity: Right Weight Bearing/Tolerated Referral Physician: Storm Reason for Referral: Evaluation/Treatment Medical History Pertinent Medical History: Atrial Fib, COPD, DM, HTN, Lymphoma, Rheumatoid Arthritis Additional Medical History PAST MEDICAL HISTORY: Diabetes, hypertension, headaches, heartburn, stage I kidney disease, arthritis, mitral valve prolapse, hypercholesterolemia, atrial fibrillation. PAST SURGICAL HISTORY: Appendectomy, cholecystectomy, hysterectomy, hemorrhoidectomy, sinus anterior cervical fusion. Reviewed History: Yes Social History Current Living Status: Spouse Entry Into Home: Stairs With Railing PT Steps Into Home: 2 Prior Prior Level of Function SCALE: Activities may be completed with or without assistive devices. 9-Tleaajnknj-ebtbaqk completes the activity by him/herself with no assistance from a helper. 5-Set-up or Clean-up Assistance-helper sets up or cleans up; patient completes activity. [place] assists only prior to or following the activity. 4-Supervision or Touching Assistance-helper provides verbal cues and/or touching/steadying and/or contact guard assistance as patient completes activity. Assistance may be provided throughout the activity or intermittently. 3-Partial/Moderate Assistance-helper does LESS THAN HALF the effort. [place] lifts, holds or supports trunk or limbs, but provides less than half the effort. 2-Substantial/Maximal Assistance-helper does MORE THAN HALF the effort. [place] lifts or holds trunk or limbs and provides more than half the effort. 7-Audsdqyjg-kjflyg does ALL the effort. Patient does none of the effort to complete the activity. Or, the assistance of 2 or more helpers is required for the patient to complete the activity. If activity was not attempted, code reason: 7-Patient Refused. 9-Not Applicable-not attempted and the patient did not perform the activity before the current illness, exacerbation or injury. 10-Not Attempted due to Environmental Limitations-(lack of equipment, weather restraints, etc.). 88-Not Attempted due to Medical Conditions or Safety Concerns. Bed Mobility: 6 Transfers (B,C,W/C): 6 Gait: 6 Stairs: 6 Indoor Mobility (Ambulation): Independent Stairs: Independent Prior Devices Use: Walker PT Evaluation-Current Subjective Patient in bed pre tx, agrees to PT, has unrated but severe pain in right knee, she has had pain meds. Asked patient to rate pain and she says "I don't know". Pt/Family Goals to be independent at home Objective Patient Orientation: Person, Place, Situation ROM/Strength ROM Lower Extremities right knee flexion 70 degrees, extension +10 degrees Sensory Hearing: Impaired Sensation Right Lower Extremit: Intact Sensation Left Lower Extremity: Intact Transfers Roll Left to Right (QC): 6 Sit to Lying (QC): 6 Lying to Sitting/Side of Bed(Q: 6 Sit to Stand (QC): 4 Chair/Enk-yb-Yrbsj Xfer(QC): 4 Toilet Transfer (QC): 4 Gait Does the Patient Walk?: Yes Mode of Locomotion: Walk Anticipated Mode of Locomotion: Walk Walk 10 feet (QC): 4 Distance: 20' Gait Assistive Device: FWW Comments/Gait Description Patient ambulates to the restroom and back to bed. Gait is slow, antalgic, step-to gait pattern, slumped posture. Balance Sitting Static: Normal Sitting Dynamic: Normal Standing Static: Fair Standing Dynamic: Fair Treatment supine total knee protocol x10 (AP, QS, HS, SAQ, SLR), CPM donned and fit to leg and set to 50/-2 Assessment/Needs Patient in bed post tx with nurse call, phone, tray, all needs met. Patient has impaired mobility, strength, endurance, ROM. Patient needs CGA for transfers and ambulation. Rehab Potential: Fair PT Broom Builder Goals Broom Builder Goals PT Detention Goals Time Frame: Jul 11, 2021 Roll Left & Right (QC): 6 Sit to Lying (QC): 6 Lying-Sitting on Side/Bed(QC): 6 Sit to Stand (QC): 5 Chair/Pdp-lm-Jaoeu Xfer(QC): 5 Walk 10 feet (QC): 5 Walk 50ft with 2 Turns (QC): 5 Walk 150 ft (QC): 5 1 Step (curb) (QC): 4 PT Plan Problem List Problem List: Activity Tolerance, Functional Strength, Safety, Balance, Gait, Transfer, Bed Mobility, ROM Treatment/Plan Treatment Plan: Continue Plan of Care Treatment Plan: Bed Mobility, Education, Functional Activity Sharad, Functional Strength, Gait, Safety, Therapeutic Exercise, Transfers Treatment Duration: Jul 11, 2021 Frequency: 11 times per week Estimated Hrs Per Day: .25 hour per day Patient and/or Family Agrees t: Yes Safety Risks/Education Patient Education: Gait Training, Transfer Techniques, Reviewed Use of Ice, Correct Positioning, Safety Issues Teaching Recipient: Patient Teaching Methods: Demonstration, Discussion Response to Teaching: Reinforcement Needed Discharge Recommendations Plan Patient will perform bed mobility and transfer training, balance and endurance training,functional strengthening, stair training, gait training, and education, to improve functional mobility and independence at home. Therapy Discharge Recommendati: Home & Family, Post Acute PT Time/GCodes Time In: 1335 Time Out: 1355 Total Billed Treatment Time: 20 Total Billed Treatment 1 visit EVL 20' RENEE WHITE PT Jul 04, 2021 14:18
[2021-07-04] MEDS ORDERED: MIRT-68 PO (14:44)
[2021-07-04] MEDS: CEFUROXIME INJECTION 750 MG in WATER (STERILE) FOR INJECTION 10 ML IV SCH (17:04)
[2021-07-04] MEDS ORDERED: LOSARTAN 50 MG (COZAAR) TAB PO NR (18:00)
--- NOTE | 2021-07-04 18:10 | OPERATIVE REPORT ---
DATE OF SERVICE: 07/04/2021 PREOPERATIVE DIAGNOSIS: Right knee primary osteoarthritis. POSTOPERATIVE DIAGNOSIS: Right knee primary osteoarthritis. PROCEDURE: Right total knee arthroplasty. SURGEON: Ghanshyam Arce MD INSTRUCTIONAL SUPPORT ASSISTANT: Ramon Inman, who assisted throughout the procedure and closed the incision. ANESTHESIA: General endotracheal by Elmira Escamilla CRNA. TOURNIQUET TIME: Approximately 70 minutes at 300 mmHg. ESTIMATED BLOOD LOSS: 250 mL. DRAINS: None. COMPLICATIONS: None. POSTOPERATIVE PLAN: Routine total knee protocol. The patient was transferred to the recovery room awake and in stable condition. The patient was transferred to the recovery room awake and stable condition. MATERIALS: Microport cemented size 5 femur, cemented size 5 tibia with 10 mm insert and cemented size 32 patellar button. STATEMENT OF MEDICAL NECESSITY: The patient is a 76-year-old female with longstanding progressive right knee pain. Radiographs revealed severe lateral and patellofemoral arthrosis. She has tried activity modifications, injections, rest and ambulation with a walker without relief. Due to functional impairment and failure to improve with conservative measures, the patient elected to proceed with surgical intervention. DESCRIPTION OF PROCEDURE: After risks and benefits of procedure were discussed and questions were answered, informed consent was signed and placed on chart, the operative site was confirmed in the preoperative holding area and initialed by the surgeon. The patient was then transferred to the operating room and after adequate levels of general endotracheal anesthetic were obtained, a timeout was called, confirming the operative site. The right lower extremity was prepped and draped in the usual sterile fashion. Standard anterior approach was utilized. Hemostasis was obtained with cautery. The patient had been on her Eliquis until 2 days ago. There was significant oozing noted throughout the procedure and alternate blood loss was 250 mL. A medial parapatellar arthrotomy was performed leaving 1 cm cuff on the patella for later reattachment. A portion of the fat pad was resected. A subperiosteal release was performed on the proximal medial tibia being careful to stay on the bony surface. The custom made block was placed on the distal femur. This was pinned into position and the distal cut was made. 5 cutting block was placed and the previously placed drill holes and cuts were made from posterior to anterior. Subperiosteal release was then carefully performed on the posterior distal femur, being careful to stay on the bony surface. The custom block was then placed on the tibial side. A drop siddharth transected the intermalleolar axis and this was pinned into position. The cut was made. The baseplate was placed and again a drop siddharth transected the intermalleolar axis. This was prepared with a drill and keel punch. The femoral trial was placed and trochlear cut was made. A 10 mm insert was placed. The patella was then prepared by resecting 10 mm off the undersurface. The peg guide was placed and peg holes were drilled. The 32 trial was placed. The knee was taken through range of motion. The patient had approximately 15-degree flexion contracture prior to the procedure. She continued to have a slight flexion contracture, but 120 degrees flexion was easily obtained. The patella tracked well. There was no anterior/posterior or medial/lateral laxity in flexion or extension. The trials were removed. The posterior capsule was further released, which then led to full extension. The bone ends were irrigated. The joint was irrigated and the periarticular block was placed in the posterior capsule, medial and lateral retinaculum extensor mechanism, subcutaneous tissues. The bone ends were further irrigated and dried. The patella, tibial baseplate was placed and excess of cement was removed, the superior surface was irrigated and the polyethylene insert was placed. The distal femur was irrigated and dried and the femoral prosthesis was cemented into position. Excessive cement was removed, and the knee was brought out into full extension until the cement had cured. The undersurface of the patella was irrigated and dried. The patellar button was cemented into position. Once the cement had cured, the knee was taken through range of motion. Full extension was easily obtained under 20 degrees of flexion with gravity was easily obtained. There was no anterior/posterior or medial/lateral laxity in flexion or extension. After further irrigating the joint, the arthrotomy was closed with #2 Tevdek in tmzmfk-jv-edwwg interrupted fashion. Knee was flexed. Patella tracked well. There was no undue tension at the repair site. Subcutaneous tissues were irrigated using a total of 6 liters throughout the procedure. A 2-0 Vicryl was used to reapproximate subcutaneous tissue, abdirahman used on the skin. A soft dressing was applied. The tourniquet was deflated and the patient was transferred to the recovery room awake and in stable condition. Job ID: [id number] DocumentID: [id number] Dictated Date: 07/04/2021 11:10:10 Preparer Date: 07/04/2021 18:09:38 Dictated By: GHANSHYAM ARCE MD
[2021-07-04] MEDS: APIXABAN 2.5 MG (ELIQUIS) TABLET PO SCH (20:49)
[2021-07-04] MEDS: FAMOTIDINE 20 MG (PEPCID) TABLET PO SCH (20:49)
[2021-07-04] MEDS: FLECAINIDE 100 MG (TAMBOCOR) TAB PO SCH (20:50)
[2021-07-04] MEDS: MIRTAZAPINE 15 MG (REMERON) TAB PO SCH (20:50)
[2021-07-04] MEDS: diphenhydrAMINE 50 MG/ML INJ (BENADRYL) IVP PRN (22:56)
[2021-07-05] VITALS (7 sets, daily range): BP systolic 93–149; BP diastolic 53–65
[2021-07-05] MEDS: NS IV 1000 ML 1,000 ML IV SCH ×3 (00:16→21:51)
[2021-07-05] MEDS: CEFUROXIME INJECTION 750 MG in WATER (STERILE) FOR INJECTION 10 ML IV SCH (00:16)
[2021-07-05] MEDS: oxyCODONE/APAP 5/325MG (PERCOCET 5) TABLET PO PRN ×5 (00:33→21:52)
[2021-07-05 05:42] LABS: HEMOGLOBIN 8.8 g/dL (11.5-16.0)
[2021-07-05] MEDS: MULTIVIT W/MINERALS TAB (THERAGRAN M) PO SCH (05:55)
[2021-07-05] MEDS ORDERED: ENOXAPARIN 30 MG/0.3 ML (LOVENOX) SYR SC SCH (07:30)
--- NOTE | 2021-07-05 08:06 | Progress Note ---
Standard Progress Note Progress Notes/Assess & Plan Date Seen by a Provider: Jul 05, 2021 Time Seen by a Provider: 08:05 Progress/Assessment & Plan post op check no complaints radiographs--HW well positioned without fracture RLE--2plus DP pulse with brisk cap refill. intact DF and PF of toes and ankle intact sensation to light touch throughout s/p RTKA mobilize as able Final Diagnosis no complaints Vital Signs Date Time Temp Pulse Resp B/P (MAP) Pulse Ox O2 Delivery O2 Flow Rate FiO2 07/05/21 07:55 36.2 79 18 149/65 (93) 91 07/05/21 04:40 36.5 87 20 93/63 (73) 92 07/05/21 00:33 36.4 07/05/21 00:17 36.5 97 20 106/65 (79) 96 Room Air 07/04/21 20:00 96 07/04/21 19:53 36.2 85 20 106/50 (68) 93 Room Air 07/04/21 15:46 36.1 80 20 156/73 (100) 95 Room Air 07/04/21 14:01 18 07/04/21 12:36 36.1 88 20 192/76 (114) 95 Room Air 07/04/21 12:20 Room Air 07/04/21 12:05 36.1 20 184/80 (114) 96 Room Air 07/04/21 12:05 Room Air 07/04/21 12:00 Room Air 07/04/21 11:50 20 192/92 (125) 95 Room Air 07/04/21 11:45 Room Air 07/04/21 11:40 20 192/92 (125) 97 Room Air 07/04/21 11:30 20 169/87 (114) 100 OxyMask 3 07/04/21 11:30 OxyMask 2 07/04/21 11:20 20 169/87 (114) 100 OxyMask 3 07/04/21 11:15 OxyMask 3 07/04/21 11:10 20 170/88 (115) 100 OxyMask 3 07/04/21 11:03 OxyMask 3 07/04/21 11:03 36.1 20 165/89 (114) 100 OxyMask 3 07/04/21 08:20 98 Room Air I & O 07/05/21 07:00 Intake Total 3165.3 ml Balance 3165.3 ml Laboratory Tests Test 07/04/21 08:20 07/05/21 05:30 Range/Units Glucometer 86 70-110 MG/DL Hemoglobin 8.8 L 11.5-16.0 g/dL Hematocrit 29 L 35-52 % RLE--dressing intact. No calf tenderness. Neg Romero's NVI distally s/p RTKA doing well PT/OT patient prefers to go home rather than IRU if able GEGE ARCE MD Jul 05, 2021 08:06
[2021-07-05] MEDS: SENNA W/DOCUSATE (SENOKOT S) TABLET PO SCH ×2 (08:44→21:53)
[2021-07-05] MEDS: FAMOTIDINE 20 MG (PEPCID) TABLET PO SCH (08:44)
[2021-07-05] MEDS: FLECAINIDE 100 MG (TAMBOCOR) TAB PO SCH ×2 (08:44→21:52)
[2021-07-05] MEDS: ASPIRIN E.C. 81 MG (ECOTRIN) TAB PO SCH (08:44)
[2021-07-05] MEDS: PANTOPRAZOLE 40 MG (PROTONIX) TAB PO SCH (08:44)
[2021-07-05] MEDS: APIXABAN 2.5 MG (ELIQUIS) TABLET PO SCH ×2 (08:44→21:53)
[2021-07-05] MEDS: LOSARTAN 50 MG (COZAAR) TAB PO SCH (08:44)
--- NOTE | 2021-07-05 10:20 | Occupational Therapy Eval ---
OT Evaluation-General/PLF Medical Diagnosis Admission Date Jul 04, 2021 at 07:30 Medical Diagnosis: right TKA Onset Date: Jul 04, 2021 Therapy Diagnosis Therapy Diagnosis: decreased ADL status Precautions Precautions/Isolations: Fall Prevention, Standard Precautions Referral Physician: Storm Referral Reason: Evaluation/Treatment Medical History Pertinent Medical History: Atrial Fib, COPD, DM, HTN, Lymphoma, Rheumatoid Arthritis Additional Medical History DM, HTN, stage 1 kidney disease, arthritis, mitral valve prolapse, afib, cervical fusion Current History s/p R TKA 07/04/21 Social History Home: Single Level Current Living Status: Spouse Entry Into Home: Stairs With Railing Steps Into Home: 2 ADL-Prior Level of Function SCALE: Activities may be completed with or without assistive devices. 6-Ulofzjrlad-mzuikcv completes the activity by him/herself with no assistance from a helper. 5-Set-up or Clean-up Assistance-helper sets up or cleans up; patient completes activity. [place] assists only prior to or following the activity. 4-Supervision or Touching Assistance-helper provides verbal cues and/or touching/steadying and/or contact guard assistance as patient completes activity. Assistance may be provided throughout the activity or intermittently. 3-Partial/Moderate Assistance-helper does LESS THAN HALF the effort. [place] lifts, holds or supports trunk or limbs, but provides less than half the effort. 2-Substantial/Maximal Assistance-helper does MORE THAN HALF the effort. [place] lifts or holds trunk or limbs and provides more than half the effort. 1-Ybmqjcqqh-gvyqhq does ALL the effort. Patient does none of the effort to complete the activity. Or, the assistance of 2 or more helpers is required for the patient to complete the activity. If activity was not attempted, code reason: 7-Patient Refused. 9-Not Applicable-not attempted and the patient did not perform the activity before the current illness, exacerbation or injury. 10-Not Attempted due to Environmental Limitations-(lack of equipment, weather restraints, etc.). 88-Not Attempted due to Medical Conditions or Safety Concerns. ADL PLOF Comments Pt reports she was independent with ADLs and functional mobility using walker at PLOF. Self Care: Independent Functional Cognition: Independent DME/Equipment: Bath Chair, Shower OT Current Status Subjective Pt up in recliner, agreeable to OT Tx. Pt's present. Mental Status/Objective Patient Orientation: Person, Place, Time, Situation Attachments: IV Current Glasses/Contacts: Yes Dentures/Partials: Yes Hand Dominance: Right Upper Extremity ROM WFL Upper Extremity Coordination WFL Upper Extremity Strength grossly 3+/5 ADL-Treatment Eating (QC): 6 Oral Hygiene (QC): 5 Other Treatments Pt up in recliner, agreeable to OT eval. OT educated pt on purpose and benefit of OT, she verbalized understanding. Pt provided information about PLOF and home set up. Pt completed oral care, face washing, and hair brushing at tray table, set up assistance. She declined out of chair activities on this date, she had already been up with PT. OT educated pt on activity modification and energy conservation techniques, she verbalized understanding. Pt and state they have no concerns with pt's ability to complete ADLs at discharge, and is able to provide some assistance if needed. Post tx, pt up in recliner, call light in reach and all needs met. Education OT Patient Education: Correct positioning, Modified ADL techniques, Progress toward Goal/Update tx plan, Purpose of tx/functional activities, Rehab process Teaching Recipient: Patient Teaching Methods: Discussion Response to Teaching: Verbalize Understanding OT Care Home Goals Resaw Tailer Goals Time Frame: Jul 13, 2021 Eating (QC): 6 Oral Hygiene (QC): 6 Toileting Hygiene (QC): 4 Shower/Bathe Self (QC): 4 Upper Body Dressing (QC): 5 Lower Body Dressing (QC): 4 On/Off Footwear (QC): 3 Additional Goals: 1-Demonstrate ADL Tasks, 2-Verbalize Understanding, 3-Imp roveStrength/Sharad 1=Demonstrate adherence to instructed precautions during ADL tasks. 2=Patient will verbalize/demonstrate understanding of assistive devices/modifications for ADL. 3=Patient will improve strength/tolerance for activity to enable patient to perform ADL's. OT Education/Plan Problem List/Assessment Assessment: Decreased Activ Tolerance, Decreased UE Strength, Impaired Funct Balance, Impaired I ADL's Pt would benefit from short term skilled OT services in order to address concerns pt may have with ADL function at discharge. Discharge Recommendations Plan/Recommendations: Continue POC Treatment Plan/Plan of Care Patient would benefit from OT for education, treatment and training to promote independence in ADL's, mobility, safety and/or upper extremity function for ADL's. Plan of Care: ADL Retraining, Functional Mobility, UE Funct Exercise/Act Treatment Duration: Jul 13, 2021 Frequency: 5 times per week Estimated Hrs Per Day: .25 hour per day Rehab Potential: Fair Time/GCodes Start Time: 09:31 Stop Time: 09:44 Total Time Billed (hr/min): 13 Billed Treatment Time 1, RYAN HYMAN OT Jul 05, 2021 10:20
--- NOTE | 2021-07-05 10:23 | Physical Therapy Daily Note ---
PT Daily Note-Current Subjective Patient agrees to PT. Mental Status Patient Orientation: Normal For Age Attachments: Polar Pack, IV Transfers SCALE: Activities may be completed with or without assistive devices. 7-Qoszetxhvf-xvgnijd completes the activity by him/herself with no assistance from a helper. 5-Set-up or Clean-up Assistance-helper sets up or cleans up; patient completes activity. [place] assists only prior to or following the activity. 4-Supervision or Touching Assistance-helper provides verbal cues and/or touching/steadying and/or contact guard assistance as patient completes activity. Assistance may be provided throughout the activity or intermittently. 3-Partial/Moderate Assistance-helper does LESS THAN HALF the effort. [place] lifts, holds or supports trunk or limbs, but provides less than half the effort. 2-Substantial/Maximal Assistance-helper does MORE THAN HALF the effort. [place] lifts or holds trunk or limbs and provides more than half the effort. 0-Nkxfhmzkc-ojsqot does ALL the effort. Patient does none of the effort to complete the activity. Or, the assistance of 2 or more helpers is required for the patient to complete the activity. If activity was not attempted, code reason: 7-Patient Refused. 9-Not Applicable-not attempted and the patient did not perform the activity before the current illness, exacerbation or injury. 10-Not Attempted due to Environmental Limitations-(lack of equipment, weather restraints, etc.). 88-Not Attempted due to Medical Conditions or Safety Concerns. Lying to Sitting/Side of Bed(Q: 6 Sit to Stand (QC): 4 Chair/Are-kh-Zvebr Xfer(QC): 4 Weight Bearing Right Lower Extremity: Right Weight Bearing/Tolerated Gait Training Does the Patient Walk?: Yes Distance: 200' Walk 10 feet (QC): 4 Walk 50 ft with 2 Turns(QC): 4 Walk 150 ft (QC): 4 Gait Assistive Device: FWW SBA for safety/slow, antalgic gait sequence Exercises Supine Ex: Ankle pumps, Quad Set, Heel Slides, Straight leg raise Supine Reps: 15 Seated Therapy Exercises: Long arc quads Seated Reps: 15 Assessment Current Status: Excellent Progress Patient progressing with treatment plan. Continue to increase activity and plans to dismiss tomorrow a.m. PT Belt Cutter Goals Belt Cutter Goals PT Belt Cutter Goals Time Frame: Jul 11, 2021 Roll Left & Right (QC): 6 Sit to Lying (QC): 6 Lying-Sitting on Side/Bed(QC): 6 Sit to Stand (QC): 5 Chair/Umd-du-Gzzay Xfer(QC): 5 Walk 10 feet (QC): 5 Walk 50ft with 2 Turns (QC): 5 Walk 150 ft (QC): 5 1 Step (curb) (QC): 4 PT Plan Treatment/Plan Treatment Plan: Continue Plan of Care Treatment Plan: Bed Mobility, Education, Functional Activity Sharad, Functional Strength, Gait, Safety, Therapeutic Exercise, Transfers Treatment Duration: Jul 11, 2021 Frequency: 11 times per week Estimated Hrs Per Day: .25 hour per day Patient and/or Family Agrees t: Yes Time/GCodes Time In: 856 Time Out: 920 Total Billed Treatment Time: 24 Total Billed Treatment 1 visit EX 14 min GT 10 min CURTIS GARCIA PT Jul 05, 2021 10:23
[2021-07-05] MEDS: diphenhydrAMINE 50 MG/ML INJ (BENADRYL) IVP PRN (14:20)
--- NOTE | 2021-07-05 14:36 | Physical Therapy Daily Note ---
PT Daily Note-Current Subjective Patient agrees to PT. Family present Mental Status Patient Orientation: Person, Time, Situation Attachments: SCD's, Polar Pack, IV Transfers SCALE: Activities may be completed with or without assistive devices. 2-Lehzkishkt-mrsthqg completes the activity by him/herself with no assistance from a helper. 5-Set-up or Clean-up Assistance-helper sets up or cleans up; patient completes activity. [place] assists only prior to or following the activity. 4-Supervision or Touching Assistance-helper provides verbal cues and/or touching/steadying and/or contact guard assistance as patient completes activity. Assistance may be provided throughout the activity or intermittently. 3-Partial/Moderate Assistance-helper does LESS THAN HALF the effort. [place] lifts, holds or supports trunk or limbs, but provides less than half the effort. 2-Substantial/Maximal Assistance-helper does MORE THAN HALF the effort. [place] lifts or holds trunk or limbs and provides more than half the effort. 6-Lxiaqlkmy-qmsmpi does ALL the effort. Patient does none of the effort to complete the activity. Or, the assistance of 2 or more helpers is required for the patient to complete the activity. If activity was not attempted, code reason: 7-Patient Refused. 9-Not Applicable-not attempted and the patient did not perform the activity before the current illness, exacerbation or injury. 10-Not Attempted due to Environmental Limitations-(lack of equipment, weather restraints, etc.). 88-Not Attempted due to Medical Conditions or Safety Concerns. Roll Left & Right (QC): 4 Sit to Lying (QC): 4 Lying to Sitting/Side of Bed(Q: 3 Sit to Stand (QC): 3 Toilet Transfer (QC): 3 Weight Bearing Right Lower Extremity: Right Weight Bearing/Tolerated Gait Training Does the Patient Walk?: Yes Distance: 175' Walk 10 feet (QC): 3 Walk 50 ft with 2 Turns(QC): 3 Walk 150 ft (QC): 3 Gait Assistive Device: FWW very unsafe, flexed knee and trunk posture with FWW too far forward with inability to correct Exercises Supine Ex: Ankle pumps, Quad Set, Heel Slides, Straight leg raise Supine Reps: 15 Seated Therapy Exercises: Long arc quads Seated Reps: 15 Treatments CPM 0-70 degrees with polar pack in place Assessment Patient very unsafe with gait this p.m. Patient appears to be confused and slightly agitated. Patient in bed with CPM and polar pack in place. 4 rails up . PT Manager [employer] Goals Half-Way Goals PT Half-Way Goals Time Frame: Jul 11, 2021 Roll Left & Right (QC): 6 Sit to Lying (QC): 6 Lying-Sitting on Side/Bed(QC): 6 Sit to Stand (QC): 5 Chair/Lbp-qp-Yuvlk Xfer(QC): 5 Walk 10 feet (QC): 5 Walk 50ft with 2 Turns (QC): 5 Walk 150 ft (QC): 5 1 Step (curb) (QC): 4 PT Plan Treatment/Plan Treatment Plan: Continue Plan of Care Treatment Plan: Bed Mobility, Education, Functional Activity Sharad, Functional Strength, Gait, Safety, Therapeutic Exercise, Transfers Treatment Duration: Jul 11, 2021 Frequency: 11 times per week Estimated Hrs Per Day: .25 hour per day Patient and/or Family Agrees t: Yes Time/GCodes Time In: 1315 Time Out: 1345 Total Billed Treatment Time: 30 Total Billed Treatment 1 visit EX 17 min GT 13 min CURTIS GARCIA PT Jul 05, 2021 14:36
[2021-07-05] MEDS: MIRTAZAPINE 15 MG (REMERON) TAB PO SCH (21:52)
--- NOTE | 2021-07-05 23:06 | DISCHARGE SUMMARY ---
DATE OF SERVICE: DIAGNOSES: 1. Right knee primary osteoarthritis. 2. Diabetes. 3. Hypertension. 4. Headaches. 5. Kidney disease. 6. Reflux. 7. Mitral valve prolapse. 8. Hypercholesterolemia. 9. Atrial fibrillation. DESCRIPTION OF PROCEDURE: Right total knee arthroplasty. HISTORY OF PRESENT ILLNESS: The patient is a 76-year-old female who was admitted the day of right total knee arthroplasty. She progressed well. At time of discharge, her wound was clean and dry. She had no calf tenderness. Negative Homans sign. CONDITION ON DISCHARGE: Good. DISCHARGE DIET: Regular. FOLLOWUP: Followup is in three weeks. ACTIVITIES: Weightbearing as tolerated with a walker. DISCHARGE MEDICATIONS: Home medications with Percocet as needed for pain. Job ID: [id number] DocumentID: [id number] Dictated Date: 07/05/2021 17:01:41 Cementer Machine Date: 07/05/2021 17:15:27 Dictated By: GEGE ARCE MD
[2021-07-06] MEDS: oxyCODONE/APAP 5/325MG (PERCOCET 5) TABLET PO PRN ×3 (01:20→08:39)
[2021-07-06 03:53] VITALS: BP 105/54
[2021-07-06 06:04] LABS: HEMOGLOBIN 7.8 g/dL (11.5-16.0)
[2021-07-06] MEDS: MULTIVIT W/MINERALS TAB (THERAGRAN M) PO SCH (06:08)
--- NOTE | 2021-07-06 07:09 | Progress Note ---
Standard Progress Note Progress Notes/Assess & Plan Date Seen by a Provider: Jul 06, 2021 Time Seen by a Provider: 07:08 Progress/Assessment & Plan post op check no complaints radiographs--HW well positioned without fracture RLE--2plus DP pulse with brisk cap refill. intact DF and PF of toes and ankle intact sensation to light touch throughout s/p RTKA mobilize as able Final Diagnosis having dificulty with safe mobility Vital Signs Date Time Temp Pulse Resp B/P (MAP) Pulse Ox O2 Delivery O2 Flow Rate FiO2 07/06/21 06:00 20 07/06/21 03:53 36.3 100 18 105/54 (71) 94 Room Air 07/05/21 23:30 37.1 106 18 101/54 (70) 92 Room Air 07/05/21 20:15 37.3 109 20 117/54 (75) 94 Room Air 07/05/21 20:00 9 Room Air 07/05/21 18:00 20 07/05/21 16:10 36.5 101 20 114/53 (73) 92 Room Air 07/05/21 11:40 36.9 89 20 114/54 (74) 95 07/05/21 08:00 91 Room Air 07/05/21 07:55 36.2 79 18 149/65 (93) 91 I & O 07/06/21 07:00 Intake Total 1480 ml Balance 1480 ml Laboratory Tests Test 07/06/21 05:38 Range/Units Hemoglobin 7.8 L 11.5-16.0 g/dL Hematocrit 25 L 35-52 % R knee incision with echymosis. No erythema or DC no calf tenderness. Neg Romero s/p RTKA with poor ind mobility plan for DC to [facility] TAPIA MD Jul 06, 2021 07:09
[2021-07-06] MEDS ORDERED: morphine INJ 4 MG/ML 1 ML (VIAL/SYRINGE) IVP PRN (07:15)
[2021-07-06 07:26] VITALS: BP 95/58
[2021-07-06] MEDS: FLECAINIDE 100 MG (TAMBOCOR) TAB PO SCH (08:37)
[2021-07-06] MEDS: LOSARTAN 50 MG (COZAAR) TAB PO SCH (08:37)
[2021-07-06] MEDS: APIXABAN 2.5 MG (ELIQUIS) TABLET PO SCH (08:37)
[2021-07-06] MEDS: PANTOPRAZOLE 40 MG (PROTONIX) TAB PO SCH (08:37)
[2021-07-06] MEDS: SENNA W/DOCUSATE (SENOKOT S) TABLET PO SCH (08:38)
[2021-07-06] MEDS: ASPIRIN E.C. 81 MG (ECOTRIN) TAB PO SCH (08:41)
[2021-07-06] MEDS ORDERED: FAMOTIDINE 20 MG (PEPCID) TABLET PO SCH (09:00)
--- NOTE | 2021-07-06 09:37 | Occupational Ther Daily Note ---
OT Current Status-Daily Note Subjective Pt was lying supine in bed w/ HOB elevated upon OT arrival. Pt agreed to tx session this date. Mental Status/Objective Patient Orientation: Person, Situation Attachments: IV ADL-Treatment Therapy Code Descriptions/Definitions Functional [place] Measure: 0=Not Assessed/NA 4=Minimal Assistance 1=Total Assistance 5=Supervision or Setup 2=Maximal Assistance 6=Modified [place] 3=Moderate Assistance 7=Complete IndependenceSCALE: Activities may be completed with or without assistive devices. 5-Ujzokflbzx-jwmdvix completes the activity by him/herself with no assistance from a helper. 5-Set-up or Clean-up Assistance-helper sets up or cleans up; patient completes activity. [place] assists only prior to or following the activity. 4-Supervision or Touching Assistance-helper provides verbal cues and/or touching/steadying and/or contact guard assistance as patient completes activity. Assistance may be provided throughout the activity or intermittently. 3-Partial/Moderate Assistance-helper does LESS THAN HALF the effort. [place] lifts, holds or supports trunk or limbs, but provides less than half the effort. 2-Substantial/Maximal Assistance-helper does MORE THAN HALF the effort. [place] lifts or holds trunk or limbs and provides more than half the effort. 2-Qfwnlrmcz-alufsn does ALL the effort. Patient does none of the effort to complete the activity. Or, the assistance of 2 or more helpers is required for the patient to complete the activity. If activity was not attempted, code reason: 7-Patient Refused. 9-Not Applicable-not attempted and the patient did not perform the activity before the current illness, exacerbation or injury. 10-Not Attempted due to Environmental Limitations-(lack of equipment, weather restraints, etc.). 88-Not Attempted due to Medical Conditions or Safety Concerns. Oral Hygiene (QC): 4 (Pt required CGA when standing w/ FWW sink side, required max VC's for sequencing, hand placement, safety, and mobility. ) Toileting Hygiene (QC): 4 (Pt required CGA when standing w/ FWW for pant hike, required max VC's for sequencing, hand placement, safety, and mobility. Pt able to manage hygiene and clothing.) Toilet Transfer (QC): 4 (Pt required CGA when standing w/ FWW for pant hike, required max VC's for sequencing, hand placement, safety, and mobility.) Other Treatment Pt was lying supine in bed w/ HOB elevated upon OT arrival. Pt agreed to OT tx session on this date. Pt requested to use the bathroom for toileting and g rooming tasks. Pt performed bed mobility to EOB, SBA. Pt transferred from EOB to standing w/ FWW, CGA. Pt performed functional mobility to toilet, requiring CGA for balance, several VC's for FWW safety and hand placement. Pt tried to push walker out of way to not utilize it, pt redirected to use it for safety, then performed toileting task, see above QC. Pt transferred from sit to stand, utilizing grab bars and FWW, CGA, Max VC's for safety and clothing management. Pt performed functional mobility to sink side for hand hygiene, oral care, and brushing hair tasks, requiring several VC's for safety w/ FWW and sequencing for tasks. Pt then performed functional mobility to chair, requiring several VC's for safety & hand placement w/ FWW. Pt impulsive throughout session, attempting to sit prior to getting to surfaces and attempting to take pants off as soon as she entered the bathroom. Post tx session, pt was seated in chair, legs elevated, call light within reach, and all needs met. Education OT Patient Education: Correct positioning, Energy conservation, Progress toward Goal/Update tx plan, Purpose of tx/functional activities, Rehab process, Safety issues, Transfer techniques Teaching Recipient: Patient Teaching Methods: Demonstration, Discussion Response to Teaching: Verbalize Understanding, Return Demonstration, Reinforcement Needed OT Nursing Home Goals Semiautomatic Taper Operator Goals Time Frame: Jul 13, 2021 Eating (QC): 6 Oral Hygiene (QC): 6 Toileting Hygiene (QC): 4 Shower/Bathe Self (QC): 4 Upper Body Dressing (QC): 5 Lower Body Dressing (QC): 4 On/Off Footwear (QC): 3 Additional Goals: 1-Demonstrate ADL Tasks, 2-Verbalize Understanding, 3- ImproveStrength/Sharad 1=Demonstrate adherence to instructed precautions during ADL tasks. 2=Patient will verbalize/demonstrate understanding of assistive devices/modifications for ADL. 3=Patient will improve strength/tolerance for activity to enable patient to perform ADL's. OT Education/Plan Problem List/Assessment Assessment: Decreased Activ Tolerance, Decreased Safety Aware, Decreased UE Strength, Impaired Cognition, Impaired Coordination, Impaired Funct Balance, Impaired I ADL's, Impaired Self-Care Skills Pt would benefit from short term skilled OT services in order to address concerns pt may have with ADL function at discharge. Discharge Recommendations Plan/Recommendations: Continue POC Treatment Plan/Plan of Care Patient would benefit from OT for education, treatment and training to promote independence in ADL's, mobility, safety and/or upper extremity function for ADL's. Plan of Care: ADL Retraining, Functional Mobility, UE Funct Exercise/Act Treatment Duration: Jul 13, 2021 Frequency: 5 times per week Estimated Hrs Per Day: .25 hour per day Rehab Potential: Fair Time/GCodes Start Time: 08:24 Stop Time: 08:42 Total Time Billed (hr/min): 18 Billed Treatment Time 1, ADL RYAN DUNNE OT Jul 06, 2021 09:37
--- NOTE | 2021-07-06 09:46 | Physical Therapy Daily Note ---
PT Daily Note-Current Subjective Patient in restroom on toilet. Agrees to PT. Mental Status Patient Orientation: Confused Transfers SCALE: Activities may be completed with or without assistive devices. 4-Wjmtlkuyaf-juzknuc completes the activity by him/herself with no assistance fr om a helper. 5-Set-up or Clean-up Assistance-helper sets up or cleans up; patient completes activity. [place] assists only prior to or following the activity. 4-Supervision or Touching Assistance-helper provides verbal cues and/or touching/steadying and/or contact guard assistance as patient completes activity. Assistance may be provided throughout the activity or intermittently. 3-Partial/Moderate Assistance-helper does LESS THAN HALF the effort. [place] lifts, holds or supports trunk or limbs, but provides less than half the effort. 2-Substantial/Maximal Assistance-helper does MORE THAN HALF the effort. [place] lifts or holds trunk or limbs and provides more than half the effort. 0-Jreapxtsi-vsinbz does ALL the effort. Patient does none of the effort to complete the activity. Or, the assistance of 2 or more helpers is required for the patient to complete the activity. If activity was not attempted, code reason: 7-Patient Refused. 9-Not Applicable-not attempted and the patient did not perform the activity before the current illness, exacerbation or injury. 10-Not Attempted due to Environmental Limitations-(lack of equipment, weather restraints, etc.). 88-Not Attempted due to Medical Conditions or Safety Concerns. Sit to Stand (QC): 4 Chair/Pea-gt-Aqgic Xfer(QC): 4 Toilet Transfer (QC): 4 CGA due to patient is very impulsive and unaware of safety concerns. Patient sat on armrest and yelled at this PT that I was in her way. Education on importance of safety and environment. Weight Bearing Right Lower Extremity: Right Weight Bearing/Tolerated Gait Training Distance: 100' Walk 10 feet (QC): 3 Walk 50 ft with 2 Turns(QC): 3 Walk 150 ft (QC): 88 Gait Assistive Device: FWW very impulsive to let go of FWW and reach for rail in hallway. Walks outside of FWW with turns and becomes agitated with VC's for body placement in FWW for safety Assessment From a PT standpoint, patient would benefit from ARU stay to address functional strength and mobility and to also address safety concerns to ensure safe return to home with spouse. PT Public Relations Representative Goals [place] Goals PT Public Relations Representative Goals Time Frame: Jul 11, 2021 Roll Left & Right (QC): 6 Sit to Lying (QC): 6 Lying-Sitting on Side/Bed(QC): 6 Sit to Stand (QC): 5 Chair/Vpz-pm-Tyiux Xfer(QC): 5 Walk 10 feet (QC): 5 Walk 50ft with 2 Turns (QC): 5 Walk 150 ft (QC): 5 1 Step (curb) (QC): 4 PT Plan Treatment/Plan Treatment Plan: Continue Plan of Care Treatment Plan: Bed Mobility, Education, Functional Activity Sharad, Functional Strength, Gait, Safety, Therapeutic Exercise, Transfers Treatment Duration: Jul 11, 2021 Frequency: 11 times per week Estimated Hrs Per Day: .25 hour per day Patient and/or Family Agrees t: Yes Time/GCodes Time In: 915 Time Out: 926 Total Billed Treatment Time: 11 Total Billed Treatment 1 visit GT 11 min CURTIS GARCIA PT Jul 06, 2021 09:46
--- NOTE | 2021-07-06 23:46 | DISCHARGE SUMMARY ---
DATE OF SERVICE: ADDENDUM Disposition will be discharged to the inpatient rehabilitation facility as the patient was having difficulty with independent mobility and safety and discharge will be remained on 07/06/2021. Job ID: [id number] DocumentID: [id number] Dictated Date: 07/06/2021 07:04:35 Nursing Informatics Analyst Date: 07/06/2021 23:46:01 Dictated By: GEGE ARCE MD
== END 2021-07-06 10:53 | DRG 470 ==
LOC: 4TH 07:30 → SURG 07:31 → 4TH 12:00
PROVIDERS: ADMIT Orthopaedic Surgery; ATTEND Orthopaedic Surgery
PROC: 0SRC0J9 Replacement of Right Knee Joint with Synthetic Substitute, Cemented, Open Approach (ICD-10-PCS; principal; 2021-07-04 09:25)
DX: M17.11 Unilateral primary osteoarthritis, right knee (principal); C85.10 Unspecified B-cell lymphoma, unspecified site; N18.1 Chronic kidney disease, stage 1; E78.00 Pure hypercholesterolemia, unspecified; Z88.0 Allergy status to penicillin; Z88.1 Allergy status to other antibiotic agents; Z91.041 Radiographic dye allergy status; M06.9 Rheumatoid arthritis, unspecified; F41.9 Anxiety disorder, unspecified; F32.9 Major depressive disorder, single episode, unspecified; I12.9 Hypertensive chronic kidney disease with stage 1 through stage 4 chronic kidney disease, or unspecified chronic kidney disease; E11.22 Type 2 diabetes mellitus with diabetic chronic kidney disease; Z92.21 Personal history of antineoplastic chemotherapy; I48.0 Paroxysmal atrial fibrillation; R51.9 Headache, unspecified; I34.1 Nonrheumatic mitral (valve) prolapse
CPT/HCPCS: 36415; 73560; 82947; 85014; 85018; 86850; 86900; 86901; 94664

== ENCOUNTER 2021-07-06 09:51 | Inpatient (IN) | payer MEDICARE, OTHER ==
[~2021-07-06] VITALS: Ht 167.7 cm; Wt 74.8 kg
[~2021-07-06 09:51] MED LIST changes: -NALOXONE 0.4 MG/ML 1 ML (NARCAN) VIAL IV PRN; -ONDANSETRON 4 MG/2 ML (SDV) Z0FRAN IVP PRN; -morphine PCA 100 MG/100 ML BAG IV PRN
[2021-07-06] MEDS ORDERED: CALCIUM CARBONATE 500 MG (TUMS) TAB.CHEW PO PRN (10:45)
[2021-07-06] MEDS ORDERED: guaiFENesin/CODEINE (ROBITUSSIN AC) 10ML UDC PO PRN (10:45)
[2021-07-06] MEDS ORDERED: LACTULOSE SYRUP 10GM/15ML (ENULOSE) 30ML UDC PO PRN (10:45)
[2021-07-06] MEDS ORDERED: diphenhydrAMINE 25 MG TAB (BENADRYL) PO PRN (10:45)
[2021-07-06] MEDS ORDERED: DOCUSATE SODIUM 100 MG (COLACE) CAP PO PRN (10:45)
[2021-07-06] MEDS ORDERED: LOPERAMIDE 2 MG (IMODIUM) TABLET PO PRN (10:45)
[2021-07-06] MEDS ORDERED: BISACODYL 10 MG SUPP (DULCOLAX) PR PRN (10:45)
[2021-07-06] MEDS ORDERED: FLEET ENEMA ADULT 1 EA BTL PR PRN (10:45)
--- NOTE | 2021-07-06 11:02 | PM&R Post Admission Assessment ---
PM&R Date of Visit: Jul 06, 2021 Time of Visit: 12:00 History of Present Illness Chief complaint: Debility following right knee replacement History of present illness: This is a 76-year-old white female clinic patient of Dr. Santos who presents to inpatient rehab from room 408 following an uncomplicated right total knee replacement. She has a past medical history of hypertension, atrial fibrillation, and mild cognitive impairment. Her is at the bedside. She reports that she needs to work on her bowels. Her pain is well controlled. Check meds and labs. She uses assistive devices at home periodically. We will work on regaining ambulatory skills in order to return to independent living. Past Zpfkhgh-Ojvjnv-Gfqaku Hx Past Med/Social Hx: Reviewed Nursing Past Med/Soc Hx, Reviewed and Corrections made Patient Social History Marrital Status: Employed/Student: retired Smoking Status: Never a Smoker 2nd Hand Smoke Exposure: No Recent Hopitalizations: No Immunizations Up To Date Tetanus Booster (TDap): Unknown Date of Pneumonia Vaccine: Oct 02, 2015 Date of Influenza Vaccine: Jun 05, 2021 Seasonal Allergies Seasonal Allergies: Yes Past Medical History Surgeries: Appendectomy, Bladder Surgery, Cardiac, Gallbladder, Hysterectomy Currently Using CPAP: No Currently Using BIPAP: No Cardiac: Atrial Fibrillation, Hypertension, Valvular Heart Disease Menopausal Genitourinary: Bladder Infection Gastrointestinal: Gastroesophageal Reflux, Gastrointestinal Bleed, Chronic Constipation, Hiatal Hernia Musculoskeletal: Arthritis, Rheumatoid Arthritis Endocrine: Diabetes, Non-Insulin dep Loss of Vision: Denies Cancer: Lymphoma What Type of Treatment Did You: Chemotherapy Psychosocial: Anxiety, Depression History of Blood Disorders: No Adverse Reaction to Blood Ellis: No Family History No Pertinent Family Hx Occupation: retired PM&R Allergy/Meds/Data Review Allergies Coded Allergies: Cephalexin Monohydrate (Verified Allergy, Unknown, has tolerated Ancef, 08/03/19) Iodinated Contrast Media (Verified Allergy, Unknown, 10/29/19) Penicillins (Verified Allergy, Unknown, Has tolerated Ancef, 08/03/19) ciprofloxacin (Verified Allergy, Unknown, 02/25/21) iodine (Verified Allergy, Unknown, 07/08/19) linaclotide (Verified Allergy, Unknown, 07/28/19) lubiprostone (Verified Allergy, Unknown, 07/28/19) prednisolone (Verified Allergy, Unknown, 02/25/21) sulfamethoxazole (Verified Allergy, Unknown, 02/25/21) trimethoprim (Verified Allergy, Unknown, 02/25/21) venlafaxine HCl (Verified Allergy, Unknown, 07/08/19) Home Medications Scheduled Apixaban (Eliquis), 2.5 MG PO BID, (Reported) Aspirin (Aspirin EC), 81 MG PO DAILY, (Reported) Atorvastatin Calcium (Atorvastatin Calcium), 20 MG PO 1700, (Reported) Carvedilol (Carvedilol), 6.25 MG PO BID, (Reported) Cholecalciferol (Vitamin D3) (Vitamin D3), 50 MCG PO DAILY, (Reported) Citalopram Hydrobromide (Citalopram HBr), 10 MG PO BID, (Reported) Estrogens Conjugated (Premarin), 0.45 MG PO DAILY, (Reported) Famotidine (Famotidine), 20 MG PO BID, (Reported) Flecainide Acetate (Flecainide Acetate), 150 MG PO BID, (Reported) Lactobacillus Combo No.10 (Probiotic), 1 EACH PO DAILY, (Reported) Losartan Potassium (Losartan Potassium), 50 MG PO 1700, (Reported) Metformin HCl (Metformin HCl ER), 500 MG PO 1700 W/MEAL, (Reported) Mirtazapine (Mirtazapine), 15 MG PO HS, (Reported) Pantoprazole Sodium (Pantoprazole Sodium), 40 MG PO DAILY, (Reported) Vit A/Vit C/Vit E/Zinc/Copper (Preservision Areds Tablet), 2 TAB PO DAILY, (Reported) Scheduled PRN Carboxymethylcellulose Sodium (Refresh Tears), 2 DROPS OU PRN PRN for DRY EYES, (Reported) Furosemide (Furosemide), 20 MG PO DAILY PRN for SWELLING, (Reported) Current Medications Current Medications Reviewed Review of Systems Constitutional: see HPI, malaise, weakness EENTM: no symptoms reported Respiratory: no symptoms reported Cardiovascular: no symptoms reported Gastrointestinal: constipation Genitourinary: no symptoms reported Musculoskeletal: joint pain Skin: no symptoms reported Psychiatric/Neurological: No Symptoms Reported All Other Systems Reviewed Negative Unless Noted: Yes Physical Exam Physical Exam Vital Signs Capillary Refill : Height, Weight, BMI Height: '" Weight: lbs. oz. kg; 24.46 BMI Method:Estimated General Appearance: No Apparent Distress, WD/WN, Chronically ill Eyes: Bilateral Eye Normal Inspection, Bilateral Eye PERRL HEENT: PERRL/EOMI, Normal ENT Inspection, Pharynx Normal Neck: Full Range of Motion, Normal Inspection, Non Tender, Supple, Carotid Bruit Respiratory: Chest Non Tender, Lungs Clear, Normal Breath Sounds, No Accessory Muscle Use, No Respiratory Distress Cardiovascular: Regular Rate, Rhythm, No Edema, No Gallop, No JVD, No Murmur, Normal Peripheral Pulses Gastrointestinal: Normal Bowel Sounds, No Organomegaly, No Pulsatile Mass, Non Tender, Soft Back: Normal Inspection, No CVA Tenderness, No Vertebral Tenderness Extremity: Normal Capillary Refill, Normal Inspection, Normal Range of Motion (Except right leg), Non Tender, No Calf Tenderness, No Pedal Edema Neurologic/Psychiatric: Alert, Oriented x3, No Motor/Sensory Deficits, Normal Mood/Affect, medicare biller II-XII Norm as Tested, Abnormal Gait, Disoriented (Poor recall), Motor Weakness (Generalized 4/5 all extremities) Skin: Normal Color, Warm/Dry Lymphatic: No Adenopathy PM&R Medical Assessment & Plan REHAB/MEDICAL ASSESSMENT AND PLAN: REHAB IMPAIRMENT GROUP: Right knee replacement ETIOLOGIC DIAGNOSIS: Right knee replacement The comorbidities that impact the patients function and/or functional outcome by: Atrial fibrillation, mild cognitive impairment, postop anemia, postop constipation REHAB PLAN: The patient is being admitted to our comprehensive inpatient rehabilitation facility and can tolerate the intensity of service consisting of at least: 180 minutes of therapy a day, 5 out of 7 days a week Rehab treatment will consist of: PT and OT will focus on regaining ambulatory skills with use of assistive devices and increasing ADL independence The patient/family has a good understanding of our discharge process and will benefit from an interdisciplinary inpatient rehabilitation program. The patient has potential to make improvement and is in need of at least two of the following multidisciplinary therapies including but not limited to physical, occupational, speech, and prosthetics and orthotics. Additionally the patient will need services from respiratory, nutritional services, wound care, psychology, etc. (Customize this to each patient). Given the patients complex condition and risk of further medical complications, rehabilitation services cannot be safely or effectively provided at a lower level of care such as a shelter facility. BARRIERS TO DISCHARGE: Mild cognitive deficit ESTIMATED LOS: 10 days DISPOSITION: Home some RELEVANT CHANGES SINCE PREADMISSION SCREENING: I have compared the patients medical and functional status at the time of the preadmission screening and there are: No changes PROGNOSIS: Good REHABILITATION GOALS: 1. PT and OT will focus on regaining ambulatory skills with use of assistive devices and increasing ADL independence All the above goals were reviewed with the patient and he/she is in agreement. By signing this document, I acknowledge that I have personally performed a full physical examination on this patient within 24 hours of admission to this inpatient rehabilitation facility and have determined the patient to be able to tolerate the above course of treatment at an intensive level for a reasonable period of time. I will be completing a detailed individualized Plan of Care for this patient by day #4 of the patients stay based upon the Preadmission Screen, the Post-Admission Evaluation, and the therapy evaluations. Admission Dx/Comorbidities: (1) Status post right knee replacement ICD Codes: Z96.651 - Presence of right artificial knee joint (2) Diffuse large B-cell lymphoma Status: Acute ICD Codes: C83.30 - Diffuse large B-cell lymphoma, unspecified site (3) Non-insulin dependent type 2 diabetes mellitus Status: Chronic ICD Codes: E11.9 - Type 2 diabetes mellitus without complications (4) HLD (hyperlipidemia) Status: Chronic ICD Codes: E78.5 - Hyperlipidemia, unspecified (5) Hypertension Status: Chronic ICD Codes: I10 - Essential (primary) hypertension (6) PAF (paroxysmal atrial fibrillation) Status: Chronic ICD Codes: I48.0 - Paroxysmal atrial fibrillation (7) Recurrent gastrointestinal hemorrhage Status: Chronic ICD Codes: K92.2 - Gastrointestinal hemorrhage, unspecified Assessment/Plan Assessment and Plan Assess & Plan/Chief Complaint Assessment: Status post right knee replacement Generalized weakness and debility Fall risk History of lymphoma Paroxysmal atrial fibrillation History of recurrent GI bleeds Postop constipation Diabetes Hypertension Mild cognitive decline Plan: Inpatient rehab protocol Monitor cognition Pain control Bowel regimen JEANNE HENSON DO Jul 06, 2021 11:02
--- NOTE | 2021-07-06 12:07 | Physical Therapy Evaluation ---
PT Evaluation-General Medical Diagnosis Admission Date Jul 06, 2021 at 10:50 Medical Diagnosis: right TKR Onset Date: Jul 04, 2021 Therapy Diagnosis Therapy Diagnosis: generalized weakness/impaired mobility Precautions Precautions/Isolations: Fall Prevention, Standard Precautions Weight Bear Status Right Lower Extremity: Right Weight Bearing/Tolerated Left Lower Extremity: Left Full Weight Bearing Referral Physician: Jamir Reason for Referral: Evaluation/Treatment Medical History Pertinent Medical History: Atrial Fib, COPD, DM, HTN, Lymphoma, Rheumatoid Arthritis Current History s/p elective right TKR Reviewed History: Yes Social History Home: Single Level Current Living Status: Spouse Entry Into Home: Stairs With Railing PT Steps Into Home: 2 Prior Prior Level of Function SCALE: Activities may be completed with or without assistive devices. 7-Anundxzjca-lxxrttr completes the activity by him/herself with no assistance from a helper. 5-Set-up or Clean-up Assistance-helper sets up or cleans up; patient completes activity. [place] assists only prior to or following the activity. 4-Supervision or Touching Assistance-helper provides verbal cues and/or touc jacklyn/steadying and/or contact guard assistance as patient completes activity. Assistance may be provided throughout the activity or intermittently. 3-Partial/Moderate Assistance-helper does LESS THAN HALF the effort. [place] lifts, holds or supports trunk or limbs, but provides less than half the effort. 2-Substantial/Maximal Assistance-helper does MORE THAN HALF the effort. [place] lifts or holds trunk or limbs and provides more than half the effort. 4-Fykthixcw-mpgxoy does ALL the effort. Patient does none of the effort to complete the activity. Or, the assistance of 2 or more helpers is required for the patient to complete the activity. If activity was not attempted, code reason: 7-Patient Refused. 9-Not Applicable-not attempted and the patient did not perform the activity before the current illness, exacerbation or injury. 10-Not Attempted due to Environmental Limitations-(lack of equipment, weather restraints, etc.). 88-Not Attempted due to Medical Conditions or Safety Concerns. Bed Mobility: 6 Transfers (B,C,W/C): 6 Gait: 6 Stairs: 6 Wheelchair Mobility: 9 Indoor Mobility (Ambulation): Independent Stairs: Independent Prior Devices Use: Other-see list below Prior Device Use: 4WW PT Evaluation-Current Subjective Patient states she is tired. Pain Numeric Pain Scale: 5-Moderate Pain Location: Right Location Body Site: Knee Pain Description: Acute Objective Patient Orientation: Person, Time, Situation ROM/Strength ROM Lower Extremities left LE WFL/right knee extension 20 degrees; flexion 84% both AROM Strength Lower Extremities left LE 3+/5 grossly;right LE 3-/5 grossly Integumentary/Posture Integumentary refer to nursing notes Bowel Incontinence: No Bladder Incontinence: No Posture trunk and bilateral knee flexed posture Neuromuscular (Tone, Coordination, Reflexes) grossly intact Sensory Vision: Wears Glasses Hearing: Hearing Aid/Aides Sensation Right Lower Extremit: Impaired Sensation Left Lower Extremity: Impaired Transfers Roll Left & Right (QC): 4 Sit to Lying (QC): 4 Lying to Sitting/Side of Bed(Q: 4 Sit to Stand (QC): 3 Chair/Lug-wf-Lfskv Xfer(QC): 3 Toilet Transfer (QC): 3 Car Transfer (QC): 3 Gait Does the Patient Walk?: Yes Mode of Locomotion: Walk Anticipated Mode of Locomotion: Walk Walk 10 feet (QC): 3 Walk 50 ft with 2 Turns(QC): 3 Walk 150 ft (QC): 88 Walking 10ft/uneven surface-QC: 3 Distance: 100' x 6 Gait Assistive Device: FWW Comments/Gait Description patient requires seated recovery periods due to fatigue; very slow, flexed bilateral knee step to sequence Wheelchair Training Does the Pt Use a Wheelchair?: No Wheel 50 ft with 2 turns (QC): 9 Wheel 150 ft (QC): 9 Stairs #of Steps: 4 1 Step (curb) (QC): 3 4 Steps (QC): 3 12 Steps (QC): 88 Balance Sitting Static: Normal Sitting Dynamic: Normal Standing Static: Fair Standing Dynamic: Fair Picking up an Object (QC): 88 Treatment Patient BP 88/42 upon arrival to ARU. Patient is alert but very fatigued. Seated exercises 15 reps LAQ and AP/supine exercises QS, HS and SLR 12 reps each Assessment/Needs 76 y.o. female, will benefit from skilled PT to address functional strength and mobility to ensure safe return to home with spouse and home health. Rehab Potential: Fair PT Jail Goals Personal Injury Specialist Goals PT Jail Goals Time Frame: Jul 28, 2021 Roll Left & Right (QC): 6 Sit to Lying (QC): 6 Lying-Sitting on Side/Bed(QC): 6 Sit to Stand (QC): 5 Chair/Ejt-cr-Ngplr Xfer(QC): 5 Toilet Transfer (QC): 5 Car Transfer (QC): 5 Does the Patient Walk: Yes Walk 10 feet (QC): 5 Walk 50ft with 2 Turns (QC): 5 Walk 150 ft (QC): 5 Walking 10ft on Uneven Surface: 5 1 Step (curb) (QC): 5 4 Steps (QC): 5 12 Steps (QC): 5 Picking up an Object (QC): 4 Does the Pt use WC or Scooter?: No Wheel 50 feet with 2 turns (QC: 9 Type: N/A Wheel 150 feet: 9 Type: N/A PT Plan Problem List Problem List: Activity Tolerance, Functional Strength, Safety, Balance, Gait, Transfer, Bed Mobility, ROM Treatment/Plan Treatment Plan: Continue Plan of Care Treatment Plan: Bed Mobility, Concurrent Therapy, Education, Functional Activity Sharad, Functional Strength, Group Therapy, Gait, Safety, Therapeutic Exercise, Transfers Treatment Duration: Jul 28, 2021 Frequency: At least 5 of 7 days/Wk (IRF) Estimated Hrs Per Day: 1.5 hours per day Patient and/or Family Agrees t: Yes Safety Risks/Education Patient Education: Gait Training, Transfer Techniques, Steps, Safety Issues Teaching Recipient: Patient Teaching Methods: Demonstration, Discussion Response to Teaching: Verbalize Understanding, Return Demonstration, Reinforcement Needed Time/GCodes Time In: 1050 Time Out: 1150 Total Billed Treatment Time: 60 Total Billed Treatment 1 visit EVModC 15 min GT x 2 30 min EX 15 min CURITS GARCIA PT Jul 06, 2021 12:07
--- NOTE | 2021-07-06 12:11 | Occupational Therapy Eval ---
OT Evaluation-General/PLF Medical Diagnosis Admission Date Jul 06, 2021 at 10:50 Medical Diagnosis: s/p R TKA Onset Date: Jul 04, 2021 Therapy Diagnosis Therapy Diagnosis: decreased ADL status Precautions Precautions/Isolations: Fall Prevention, Standard Precautions Weight Bear Status Weight Bearing Restriction: Weight Bearing/Tolerated Location Restriction: R LE Referral Physician: Jamir Gill Reason: Evaluation/Treatment Medical History Pertinent Medical History: Atrial Fib, COPD, DM, HTN, Lymphoma, Rheumatoid Arthritis Additional Medical History DM, HTN, stage 1 kidney disease, arthritis, mitral valve prolapse, afib, cervical fusion Current History s/p R TKA 07/04/21 Social History Home: Single Level Current Living Status: Spouse Entry Into Home: Stairs With Railing Steps Into Home: 2 ADL-Prior Level of Function SCALE: Activities may be completed with or without assistive devices. 0-Jmselsmwef-yocowxs completes the activity by him/herself with no assistance from a helper. 5-Set-up or Clean-up Assistance-helper sets up or cleans up; patient completes activity. [place] assists only prior to or following the activity. 4-Supervision or Touching Assistance-helper provides verbal cues and/or touching/steadying and/or contact guard assistance as patient completes activity. Assistance may be provided throughout the activity or intermittently. 3-Partial/Moderate Assistance-helper does LESS THAN HALF the effort. [place] lifts, holds or supports trunk or limbs, but provides less than half the effort. 2-Substantial/Maximal Assistance-helper does MORE THAN HALF the effort. [place] lifts or holds trunk or limbs and provides more than half the effort. 6-Zpsvbyqix-fmmzxs does ALL the effort. Patient does none of the effort to complete the activity. Or, the assistance of 2 or more helpers is required for the patient to complete the activity. If activity was not attempted, code reason: 7-Patient Refused. 9-Not Applicable-not attempted and the patient did not perform the activity before the current illness, exacerbation or injury. 10-Not Attempted due to Environmental Limitations-(lack of equipment, weather restraints, etc.). 88-Not Attempted due to Medical Conditions or Safety Concerns. ADL PLOF Comments Pt reports IND with ADLs and functional mobility at PLOF using a walker,. She has a walk in shower, a walk in tub, and SC in the shower. DME/Equipment: Bath Chair, Shower, Tub (walk in) OT Current Status Subjective Pt seated in recliner, agreeable to OT evaluation, requests to use bathroom. Mental Status/Objective Patient Orientation: Person, Place, Situation Current Glasses/Contacts: Yes Hearing Aids: Yes Dentures/Partials: Yes Hand Dominance: Left Upper Extremity ROM BUE shoulder flexion to approx 150 degrees, WFL Upper Extremity Coordination WFL Upper Extremity Strength grossly 3+/5 BUEs ADL-Treatment Eating (QC): 6 (IND with lunch) Oral Hygiene (QC): 4 (CGA standing at sink with verbal cues for sequencing and safety.) Shower/Bathe Self (QC): 3 (Assist with RLE lower leg/foot. Pt able to wash all other parts, CGA in stand.) Upper Body Dressing (QC): 3 (Assist with managing bra down trunk, cues for sequencing of bra. Pt donned pick pulling machine tender shirt with min A with managing shirt down in back.) Lower Body Dressing (QC): 4 (CGA, pt able to thread BLEs into pants, and perform pant hike. min cues for sequencing as pt attempted to sit prior to pulling pants up.) On/Off Footwear (QC): 2 (Pt able to doff L gripper socks. Assist with doffing R gripper sock, donning/doffing TEDhose, and donning bilateral socks.) Toileting Hygiene (QC): 4 (CGA, pt able to manage clothing and hygiene, min verbal cues for sequencing/safety. ) Other Treatments [id number]: Pt seated in recliner, OT evaluation complete. Pt requests to use toileting, using FWW performed functional mobility with CGA into bathroom. Pt transferred to [facility] over toilet, completed toileting, stood at sink to complete hand hygiene, CGA. Pt returned to recliner. Post tx, pt in recliner, call light in reach and all needs met. [id number]: Pt seated in recliner, lunch tray had arrived. Pt able to eat lunch independently, opening all containers, and eating food with fingers/utensils as appropriate. Pt completed sponge bath and dressing as outlined above. Pt required min cues with sequencing and safety throughout session. During stand at FWW for pant hike, OT managed TedHose up the rest of the way, pt required cues for sequencing in order not to pull pants up until TedHose were fixed. After TedHose were adjusted, pt attempted to sit in the chair without performing pant hike, requiring instruction. In order to increase BUE strength and activity tolerance, pt completed 2x15 reps each of the following BUE exercises: shoulder flexion, elbow flexion, front punch and finger flexion/extension. On second round of exercises, pt able to recall 2/4 exercises. She stopped after 10 reps on a few exercises, requiring reminder to go to 15. Post tx, pt up in recliner, call light in reach and all needs met. Education OT Patient Education: Correct positioning, Energy conservation, Modified ADL techniques, Progress toward Goal/Update tx plan, Purpose of tx/functional activities, Rehab process Teaching Recipient: Patient Teaching Methods: Discussion Response to Teaching: Verbalize Understanding OT Short Term Goals Short Term Goals Time Frame: Jul 18, 2021 Oral hygiene: 5 Toileting hygiene: 5 Shower/bathe self: 5 Upper body dressin Lower body dressin Putting on/taking off footwear: 5 OT Investigation Officer Goals Investigation Officer Goals Time Frame: Jul 27, 2021 Eating (QC): 6 Oral Hygiene (QC): 6 Toileting Hygiene (QC): 6 Shower/Bathe Self (QC): 6 Upper Body Dressing (QC): 6 Lower Body Dressing (QC): 6 On/Off Footwear (QC): 6 Additional Goals: 1-Demonstrate ADL Tasks, 2-Verbalize Understanding, 3- ImproveStrength/Sharad 1=Demonstrate adherence to instructed precautions during ADL tasks. 2=Patient will verbalize/demonstrate understanding of assistive devices/modifications for ADL. 3=Patient will improve strength/tolerance for activity to enable patient to perform ADL's. OT Education/Plan Problem List/Assessment Assessment: Decreased Activ Tolerance, Decreased UE Strength, Impaired Funct Balance, Impaired I ADL's, Impaired Self-Care Skills, Restricted Funct UE ROM Discharge Recommendations Plan/Recommendations: Continue POC Treatment Plan/Plan of Care Patient would benefit from OT for education, treatment and training to promote independence in ADL's, mobility, safety and/or upper extremity function for ADL's. Plan of Care: ADL Retraining, Functional Mobility, Group Exercise/Act as Ind, UE Funct Exercise/Act Treatment Duration: Jul 27, 2021 Frequency: At least 5 of 7 days/Wk (IRF) Estimated Hrs Per Day: 1.5 hours per day Rehab Potential: Good Time/GCodes Start Time: 11:50 ([id number]) Stop Time: 13:45 ([id number]) Total Time Billed (hr/min): 75 Billed Treatment Time [id number]: 1, EVM (20') 8810-2517: 1, ADL 3 (40'), EX (15') RYAN DUNNE OT Jul 06, 2021 12:11
--- NOTE | 2021-07-06 14:31 | Physical Therapy Daily Note ---
PT Daily Note-Current Subjective Pt. in chair upon arrival and agrees to PT. pt. states she feels better now than earlier. Did not rate pain Mental Status Patient Orientation: Person, Time, Situation Attachments: [place] Transfers SCALE: Activities may be completed with or without assistive devices. 2-Nsywsyluqs-mhpblgp completes the activity by him/herself with no assistance from a helper. 5-Set-up or Clean-up Assistance-helper sets up or cleans up; patient completes activity. [place] assists only prior to or following the activity. 4-Supervision or Touching Assistance-helper provides verbal cues and/or touching/steadying and/or contact guard assistance as patient completes activity. Assistance may be provided throughout the activity or intermittently. 3-Partial/Moderate Assistance-helper does LESS THAN HALF the effort. [place] lifts, holds or supports trunk or limbs, but provides less than half the effort. 2-Substantial/Maximal Assistance-helper does MORE THAN HALF the effort. [place] lifts or holds trunk or limbs and provides more than half the effort. 9-Agfolczbh-qjqptz does ALL the effort. Patient does none of the effort to complete the activity. Or, the assistance of 2 or more helpers is required for the patient to complete the activity. If activity was not attempted, code reason: 7-Patient Refused. 9-Not Applicable-not attempted and the patient did not perform the activity before the current illness, exacerbation or injury. 10-Not Attempted due to Environmental Limitations-(lack of equipment, weather restraints, etc.). 88-Not Attempted due to Medical Conditions or Safety Concerns. Sit to Lying (QC): 4 Lying to Sitting/Side of Bed(Q: 4 Sit to Stand (QC): 3 Chair/Muf-eo-Iahxt Xfer(QC): 3 Toilet Transfer (QC): 3 Weight Bearing Right Lower Extremity: Right Weight Bearing/Tolerated Left Lower Extremity: Left Full Weight Bearing Gait Training Does the Patient Walk?: Yes Distance: 15' X2 Walk 10 feet (QC): 3 Gait Persons Needed: 1 Gait Assistive Device: FWW pt. is unsteady with flexed knees. shuffle step-to gait Exercises Supine Ex: Ankle pumps, Quad Set, Heel Slides, Straight leg raise Supine Reps: 10 (x2 sets) Assessment pt. requires VC for safety and time to complete all tasks due to fatigue. PT to increase activity as tolerated by pt. PT Intermediate Goals Intermediate Goals PT Intermediate Goals Time Frame: Jul 28, 2021 Roll Left & Right (QC): 6 Sit to Lying (QC): 6 Lying-Sitting on Side/Bed(QC): 6 Sit to Stand (QC): 5 Chair/Ntw-hm-Dsugq Xfer(QC): 5 Toilet Transfer (QC): 5 Car Transfer (QC): 5 Does the Patient Walk: Yes Walk 10 feet (QC): 5 Walk 50ft with 2 Turns (QC): 5 Walk 150 ft (QC): 5 Walking 10ft on Uneven Surface: 5 1 Step (curb) (QC): 5 4 Steps (QC): 5 12 Steps (QC): 5 Picking up an Object (QC): 4 Does the Pt use WC or Scooter?: No Wheel 50 feet with 2 turns (QC: 9 Type: N/A Wheel 150 feet: 9 Type: N/A PT Plan Treatment/Plan Treatment Plan: Continue Plan of Care Treatment Plan: Bed Mobility, Concurrent Therapy, Education, Functional Activity Sharad, Functional Strength, Group Therapy, Gait, Safety, Therapeutic Exercise, Transfers Treatment Duration: Jul 28, 2021 Frequency: At least 5 of 7 days/Wk (IRF) Estimated Hrs Per Day: 1.5 hours per day Patient and/or Family Agrees t: Yes Time/GCodes Time In: 1350 Time Out: 1415 Total Billed Treatment Time: 25 Total Billed Treatment 1 visit EX 15 min FA 10 min CURTIS GARCIA PT Jul 06, 2021 14:31
--- NOTE | 2021-07-06 14:46 | ST Cognitive Linguistic Eval ---
Speech Evaluation-General Medical Diagnosis s/p R TKA Onset Date: Jul 04, 2021 Therapy Diagnosis Therapy Diagnosis: Cognitive-communication Referral Referring Physician: Dr. Bowie Medical History Pertinent Medical History: Atrial Fib, COPD, DM, HTN, Lymphoma, Rheumatoid Arthritis Reviewed History: Yes Social History Current Living Status: Spouse Speech PLF-Current Status Prior Level of Function Patient lives in the home with her of 51 years. She reports she was independent for most of her daily needs. Subjective Patient was pleasant and cooperative with the cognitive assessment. Language Eval: Auditory Comprehends Simple Yes/No Ques: Functional Indent/Objects Multiple [place]: Functional Ident/Pics in Multiple [place]: Functional Follows 1-Step Commands: Functional Follows Complex Directions: Mild Follows General Conversations: Functional Language Eval: Verbal Language Completes Spontaneous Greeting: Functional Produces Auto, Serial Info: Functional Imitates Simple Words/Phrases: Functional Word Finding: Functional Requests Basic Needs: Functional States Basic Personal Info: Functional Expresses Complex Ideas: Mild Objective Cognitive Domain Attention: WNL Memory: Mild Problem Solving: Mild Executive Functions: Mild Visuospatial Skills: Mild Composite Severity Rating: Mild Clock Drawing Severity Rating: Mild Objective Formal/Standardized Tests [facility] Status ([facility]) Results 24/30, Mild Neurocognitive Disorder range of function Oral Motor/Speech Production Within Normal Limits Impression Patient is a pleasant 76 y/o female who was admitted to the ARU s/p right knee replacement. Patient was given the SLUMS at bedside with a score of 24/30 obtained. This score is within the MNCD range of function. Scores indicate a need for cognitive therapy, Speech therapy will focus on improving memory, pro blem solving and safety awareness for a safe return home. Speech Patient Assess Expression of Ideas/Wants: Exhibits (3) Understanding Verbal Content: Usually Understands (3) Brief Interview-Mental Status: Yes Repetition of Three Words: Three (3) Temporal Orientation: Year: Correct (3) Temporal Orientation: Month: Accurate within 5 days(2) Temporal Orientation: Day: Correct (1) Recall : Wear to say "Sock": Yes,after cueing (1) Recall : Color: No, could not recall (0) Recall : Bed: Yes,after cueing (1) Memory/Recall Ability: That he or she is in a hsp/hsp unit Speech Short Term Goals Short Term Goals Short Term Goals 1) Patient will complete memory tasks related to her daily needs at 80% or greater with minimal cues. 2) Patient will complete safety awareness tasks related to her daily needs at 80% or greater with minimal cues. 3) Patient will complete problem solving tasks related to her daily needs at 80% or greater with minimal cues. Speech Halfway Goals Commodity Trader Goals Patient will improve functional cognitive abilities in order to increase safety and independence. Speech-Plan Patient/Family Goals Patient/Family Goals: Patient plans on returning to her home where she lives with her . Treatment Plan Speech Therapy Treatment Plan: Continue Plan of Care Treatment Duration: Jul 20, 2021 Frequency: 4 times per week (Patient will receive skilled ST 4-5x per week) Estimated Hrs Per Day: .25 hour per day Rehab Potential: Good Barriers to Learning: Patient's recent surgery, mild cognitive deficits Pt/Family Agrees to Plan: Yes Safety Risks/Education Teaching Recipient: Patient Teaching Methods: Discussion Response to Teaching: Verbalize Understanding Education Topics Provided: Safety within her room, communication of wants/needs Time Speech Therapy Time In: 14:15 Speech Therapy Time Out: 14:45 Total Billed Time: 30 Billed Treatment Time 1, KAMILA NG BETHAN[place] ST Jul 06, 2021 14:45
[2021-07-06 20:00] VITALS: BP 112/66
[2021-07-06] MEDS: SENNA W/DOCUSATE (SENOKOT S) TABLET PO SCH (20:39)
[2021-07-06] MEDS: polyethylene glycoL POWDER 17 GM (MIRALAX) PACK PO SCH (20:39)
[2021-07-06] MEDS: DOCUSATE SODIUM 100 MG (COLACE) CAP PO SCH (20:39)
[2021-07-07 07:01] LABS: BASOPHILS # (AUTO) 0.1 10^3/uL (0.0-0.1); BASOPHILS % (AUTO) 1 % (0-10); EOSINOPHILS # (AUTO) 0.1 10^3/uL (0.0-0.3); EOSINOPHILS % (AUTO) 2 % (0-10); HEMATOCRIT 24 % (35-52); HEMOGLOBIN 7.3 g/dL (11.5-16.0); LYMPHOCYTES # (AUTO) 0.8 10^3/uL (1.0-4.0); LYMPHOCYTES % (AUTO) 9 % (12-44); MEAN CORPUSCULAR HEMOGLOBIN 29 pg (25-34); MEAN CORPUSCULAR HGB CONC 31 g/dL (32-36); MEAN CORPUSCULAR VOLUME 94 fL (80-99); MEAN PLATELET VOLUME 9.5 fL (9.0-12.2); MONOCYTES # (AUTO) 1.3 10^3/uL (0.0-1.0); MONOCYTES % (AUTO) 15 % (0-12); NEUTROPHILS # (AUTO) 6.5 10^3/uL (1.8-7.8); NEUTROPHILS % (AUTO) 74 % (42-75); PLATELET COUNT 246 10^3/uL (130-400); WHITE BLOOD COUNT 8.9 10^3/uL (4.3-11.0)
[2021-07-07 07:23] LABS: ALBUMIN 2.9 GM/DL (3.2-4.5); BILIRUBIN,TOTAL 0.4 MG/DL (0.1-1.0); CALCIUM 8.2 MG/DL (8.5-10.1); CREATININE SERUM 0.71 MG/DL (0.60-1.30); POTASSIUM 3.6 MMOL/L (3.6-5.0); TOTAL PROTEIN 5.7 GM/DL (6.4-8.2)
[2021-07-07 07:30] VITALS: BP 129/51
--- NOTE | 2021-07-07 08:58 | Physical Therapy Daily Note ---
PT Daily Note-Current Subjective Pt rates pain 4/10. Pt up in recliner and agreeable to PT. Mental Status Patient Orientation: Person, Place, Situation Transfers SCALE: Activities may be completed with or without assistive devices. 2-Zwrmshocwh-otcjwry completes the activity by him/herself with no assistance from a helper. 5-Set-up or Clean-up Assistance-helper sets up or cleans up; patient completes activity. [place] assists only prior to or following the activity. 4-Supervision or Touching Assistance-helper provides verbal cues and/or touching/steadying and/or contact guard assistance as patient completes activity. Assistance may be provided throughout the activity or intermittently. 3-Partial/Moderate Assistance-helper does LESS THAN HALF the effort. [place] lifts, holds or supports trunk or limbs, but provides less than half the effort. 2-Substantial/Maximal Assistance-helper does MORE THAN HALF the effort. [place] lifts or holds trunk or limbs and provides more than half the effort. 7-Oslesgtsq-avcchw does ALL the effort. Patient does none of the effort to complete the activity. Or, the assistance of 2 or more helpers is required for the patient to complete the activity. If activity was not attempted, code reason: 7-Patient Refused. 9-Not Applicable-not attempted and the patient did not perform the activity before the current illness, exacerbation or injury. 10-Not Attempted due to Environmental Limitations-(lack of equipment, weather restraints, etc.). 88-Not Attempted due to Medical Conditions or Safety Concerns. Weight Bearing Right Lower Extremity: Right Weight Bearing/Tolerated Left Lower Extremity: Left Full Weight Bearing Gait Training Gait Assistive Device: FWW Pt amb 150ft at good speed with FWW and CGA. Pt amb with flexed knee but demonstrates heel strike and toe off. Exercises Supine Ex: Ankle pumps, Quad Set, Heel Slides Supine Reps: 15 Seated Therapy Exercises: Long arc quads Seated Reps: 15 Treatments CPM 0 - 74deg Assessment Current Status: Good Progress Pt knee flexed approximatly 15-20 deg. Arnold well, progressing nicely with functional mobility. Demonstrated mod (I) transfers all levels. Pt back to bed with CPM, call light and all needs met. PT Custodial Goals Custodial Goals PT Regional Guide Goals Time Frame: Jul 28, 2021 Roll Left & Right (QC): 6 Sit to Lying (QC): 6 Lying-Sitting on Side/Bed(QC): 6 Sit to Stand (QC): 5 Chair/Wbz-gh-Hzhdf Xfer(QC): 5 Toilet Transfer (QC): 5 Car Transfer (QC): 5 Does the Patient Walk: Yes Walk 10 feet (QC): 5 Walk 50ft with 2 Turns (QC): 5 Walk 150 ft (QC): 5 Walking 10ft on Uneven Surface: 5 1 Step (curb) (QC): 5 4 Steps (QC): 5 12 Steps (QC): 5 Picking up an Object (QC): 4 Does the Pt use WC or Scooter?: No Wheel 50 feet with 2 turns (QC: 9 Type: N/A Wheel 150 feet: 9 Type: N/A PT Plan Treatment/Plan Treatment Plan: Continue Plan of Care Treatment Plan: Bed Mobility, Concurrent Therapy, Education, Functional Activity Sharad, Functional Strength, Group Therapy, Gait, Safety, Therapeutic Exercise, Transfers Treatment Duration: Jul 28, 2021 Frequency: At least 5 of 7 days/Wk (IRF) Estimated Hrs Per Day: 1.5 hours per day Patient and/or Family Agrees t: Yes Time/GCodes Time In: 740 Time Out: 805 Total Billed Treatment Time: 25 Total Billed Treatment 1, ther ex 10', gait 15' NADIA NICKERSON CPTA Jul 07, 2021 08:58
[2021-07-07] MEDS: DOCUSATE SODIUM 100 MG (COLACE) CAP PO SCH ×2 (09:41→21:38)
[2021-07-07] MEDS: SENNA W/DOCUSATE (SENOKOT S) TABLET PO SCH ×2 (09:41→21:38)
[2021-07-07] MEDS: polyethylene glycoL POWDER 17 GM (MIRALAX) PACK PO SCH ×2 (09:41→21:38)
--- NOTE | 2021-07-07 13:11 | PM&R Progress Note ---
Subjective HPI/CC On Admission Date Seen by Provider: Jul 07, 2021 Time Seen by Provider: 13:15 Subjective/Events-last exam 07/07/2021: Patient doing really well Getting in and out of bed very well CPM machine maintained Bowels are moving Home meds were restarted Review of Systems General: Fatigue Musculoskeletal: leg pain Objective Exam Vital Signs Vital Signs Date Time Temp Pulse Resp B/P (MAP) Pulse Ox O2 Delivery O2 Flow Rate FiO2 07/07/21 20:05 95 Room Air 07/07/21 20:00 36.6 87 12 119/53 (75) Capillary Refill : General Appearance: No Apparent Distress, WD/WN, Chronically ill HEENT: PERRL/EOMI, Normal ENT Inspection, Pharynx Normal Neck: Full Range of Motion, Normal Inspection, Non Tender, Supple, Carotid Bruit Respiratory: Chest Non Tender, Lungs Clear, Normal Breath Sounds, No Accessory Muscle Use, No Respiratory Distress Cardiovascular: Regular Rate, Rhythm, No Edema, No Gallop, No JVD, No Murmur, Normal Peripheral Pulses Gastrointestinal: Normal Bowel Sounds, No Organomegaly, No Pulsatile Mass, Non Tender, Soft Back: Normal Inspection, No CVA Tenderness, No Vertebral Tenderness Extremity: Normal Capillary Refill, Normal Inspection, Normal Range of Motion (Except right leg), Non Tender, No Calf Tenderness, No Pedal Edema Neurologic/Psychiatric: Alert, Oriented x3, No Motor/Sensory Deficits, Normal Mood/Affect, hook up driver II-XII Norm as Tested, Abnormal Gait, Disoriented (Poor recall), Motor Weakness (Generalized 4/5 all extremities) Skin: Normal Color, Warm/Dry Lymphatic: No Adenopathy Results/Procedures Lab Patient resulted labs reviewed. FIM Transfers Therapy Code Descriptions/Definitions Functional [place] Measure: 0=Not Assessed/NA 4=Minimal Assistance 1=Total Assistance 5=Supervision or Setup 2=Maximal Assistance 6=Modified [place] 3=Moderate Assistance 7=Complete IndependenceSCALE: Activities may be completed with or without assistive devices. 6-Njlexxyqja-eyqjwot completes the activity by him/herself with no assistance from a helper. 5-Set-up or Clean-up Assistance-helper sets up or cleans up; patient completes activity. [place] assists only prior to or following the activity. 4-Supervision or Touching Assistance-helper provides verbal cues and/or touching/steadying and/or contact guard assistance as patient completes activity. Assistance may be provided throughout the activity or intermittently. 3-Partial/Moderate Assistance-helper does LESS THAN HALF the effort. [place] lifts, holds or supports trunk or limbs, but provides less than half the effort. 2-Substantial/Maximal Assistance-helper does MORE THAN HALF the effort. [place] lifts or holds trunk or limbs and provides more than half the effort. 0-Jdkhccrcc-lsdeag does ALL the effort. Patient does none of the effort to complete the activity. Or, the assistance of 2 or more helpers is required for the patient to complete the activity. If activity was not attempted, code reason: 7-Patient Refused. 9-Not Applicable-not attempted and the patient did not perform the activity before the current illness, exacerbation or injury. 10-Not Attempted due to Environmental Limitations-(lack of equipment, weather restraints, etc.). 88-Not Attempted due to Medical Conditions or Safety Concerns. Roll Left to Right (QC): 4 Sit to Lying (QC): 4 Sit to Stand (QC): 3 Chair/Tqe-vt-Lplqz Xfer(QC): 3 Car Transfer (QC): 3 Gait Training Does the Patient Walk?: Yes Distance: 15' X2 Walk 10 feet (QC): 3 Walk 50 ft with 2 Turns(QC): 3 Walk 150 ft (QC): 88 Walking 10ft/uneven surface-QC: 3 Gait Persons Needed: 1 Gait Assistive Device: FWW Wheelchair Training Does the Pt Use a Wheelchair?: No Wheel 50 ft with 2 turns (QC): 9 Wheel 150 ft (QC): 9 Stair Training #of Steps: 4 1 Step (curb) (QC): 3 4 Steps (QC): 3 12 Steps (QC): 88 Balance Picking up an Object (QC): 88 ADL-Treatment Eating (QC): 6 (IND with lunch) Oral Hygiene (QC): 4 (CGA standing at sink with verbal cues for sequencing and safety.) Shower/Bathe Self (QC): 3 (Assist with RLE lower leg/foot. Pt able to wash all other parts, CGA in stand.) Upper Body Dressing (QC): 3 (Assist with managing bra down trunk, cues for sequencing of bra. Pt donned lime puller shirt with min A with managing shirt down in back.) Lower Body Dressing (QC): 4 (CGA, pt able to thread BLEs into pants, and perform pant hike. min cues for sequencing as pt attempted to sit prior to pulling pants up.) On/Off Footwear (QC): 2 (Pt able to doff L gripper socks. Assist with doffing R gripper sock, donning/doffing TEDhose, and donning bilateral socks.) Toileting Hygiene (QC): 4 (CGA, pt able to manage clothing and hygiene, min verbal cues for sequencing/safety. ) Assessment/Plan Assessment and Plan Assess & Plan/Chief Complaint Assessment: Status post right knee replacement Generalized weakness and debility Fall risk History of lymphoma Paroxysmal atrial fibrillation History of recurrent GI bleeds Postop constipation Diabetes Hypertension Mild cognitive decline Plan: Inpatient rehab protocol Monitor cognition Pain control Bowel regimen 07/07/2021: Pain control Bowel regimen (1) Status post right knee replacement (2) Diffuse large B-cell lymphoma Status: Acute (3) Non-insulin dependent type 2 diabetes mellitus Status: Chronic (4) HLD (hyperlipidemia) Status: Chronic (5) Hypertension Status: Chronic (6) PAF (paroxysmal atrial fibrillation) Status: Chronic (7) Recurrent gastrointestinal hemorrhage Status: Chronic JEANNE HENSON DO Jul 07, 2021 13:11
--- NOTE | 2021-07-07 13:11 | Individualized Plan of Care ---
Individualized Plan of Care Rehab Nursing IPOC Order Admission Date Jul 06, 2021 at 10:50 Current Orders Orders Admission Order(Inpt,Obs,Sdc) (07/06/21 10:43) Vital Signs: Per Unit Policy ( ,16,00 (07/06/21 10:43) Juan R Jung (07/06/21 10:43) Sequential Compression Device (07/06/21 10:43) Appraiser Land-Inpt Rehab Con (07/06/21 10:43) Rehab Nursing Orders-Ipoc (07/06/21 10:43) Physical Therapy Rehab Orders (07/06/21 10:43) Occupational Therapy Rehab Ord (07/06/21 10:43) Speech Therapy Rehab Orders (07/06/21 10:43) Cbc With Automated Diff (07/07/21 06:00) Comprehensive Metabolic Panel (07/07/21 06:00) Precautions (Aru) (07/06/21 10:43) Rehab-Intensity Of Therapy (07/06/21 10:43) Initiate Admission Nursing Pro .admission (07/06/21 10:43) Alprazolam Tablet (Xanax Tablet) (07/06/21 10:45) Calcium Carbonate Chew Tablet (Antacid C (07/06/21 10:45) Diphenhydramine Tablet (Benadryl Tablet) (07/06/21 10:45) Docusate Sodium Capsule (Colace Capsule) (07/06/21 21:00) Docusate Sodium Capsule (Colace Capsule) (07/06/21 10:45) Bisacodyl Suppository (Dulcolax Supposit (07/06/21 10:45) Lactulose Oral Solution (Enulose Oral So (07/06/21 10:45) Na Phos/Na Biphos Enema (Fleet Enema Devan (07/06/21 10:45) Guaifenesin/Codeine Syrup (Robitussin Ac (07/06/21 10:45) Loperamide Tablet (Imodium Tablet) (07/06/21 10:45) Melatonin Tablet (Melatonin Tablet) (07/06/21 10:45) Polyethylene Glycol Powder Pkt (Miralax (07/06/21 21:00) Ondansetron Oral Dissolve Tab (Zofran (07/06/21 10:45) Senna S Tablet (Senokot S Tablet) (07/06/21 21:00) Code/Resuscitation (07/06/21 10:43) Initiate Admission Nursing Pro .admission (07/06/21 10:43) Admission Arrival Bed Request (07/06/21 11:06) Diet As Tolerated (Order) (07/06/21 12:13) Dressing Order (Intervention) DAILY (07/06/21 12:13) Sequential Compression Device 10,14,18,22,02,06 (07/06/21 12:13) General/Regular (07/06/21 Lunch) Oxycodone Immediate Rel Tablet (Oxyir Ta (07/06/21 13:15) Patient Visit (07/06/21 ) Pt Eval Moderate Complexity (07/06/21 ) Gait Training, Ea 15 Min (07/06/21 ) Exercise Therap, Ea 15 Min (07/06/21 ) Patient Visit (07/06/21 ) Speech Sound Lang Comp (07/06/21 ) Treat. Speech/Lang/Voice (07/06/21 ) Patient Visit (07/06/21 ) Exercise Therap, Ea 15 Min (07/06/21 ) Functional Activities, Ea 15 (07/06/21 ) Iron Test (Fe) (07/07/21 09:13) Vitamin B 12 (07/07/21 09:13) Patient Visit (07/07/21 ) Exercise Therap, Ea 15 Min (07/07/21 ) Gait Training, Ea 15 Min (07/07/21 ) Apixaban Tablet (Eliquis Tablet) (07/07/21 21:00) Aspirin Enteric Coated Tablet (Ecotrin T (07/08/21 09:00) Atorvastatin Tablet (Lipitor Tablet) (07/07/21 17:00) Carvedilol Tablet (Coreg Tablet) (07/07/21 21:00) Citalopram Tablet (Celexa Tablet) (07/07/21 21:00) Estrogens Conjugated Tablet (Premarin Ta (07/08/21 09:00) Famotidine Tablet (Pepcid Tablet) (07/07/21 21:00) Flecainide Tablet (Tambocor Tablet) (07/07/21 21:00) Furosemide Tablet (Lasix Tablet) (07/07/21 13:30) Losartan Tablet (Cozaar Tablet) (07/07/21 17:00) Metformin Xr Tablet (Glucophage Xr Table (07/07/21 17:00) Pantoprazole Tablet (Protonix Tablet) (07/08/21 09:00) Carboxymethylcell Ophth Soln (Refresh Pl (07/07/21 14:30) Cholecalciferol Capsule/Tablet (Vitamin (07/08/21 09:00) Lactobacillus Acidophilus Cap (Acidophil (07/08/21 09:00) Mirtazapine Tablet (Remeron Tablet) (07/07/21 21:00) (Nf) Vit A/Vit C/Vit E/Zinc/Copper (Pres (07/08/21 09:00) Oxycodone Immediate Rel Tablet (Oxyir Ta (07/07/21 17:15) Acetaminophen Tablet/Caplet (Tylenol T (07/07/21 14:00) Rehab Nursing Orders: Ongoing Assess. of Cognitive Status, Ongoing Assess. of Function Status, Bladder Management, Bladder Scan, Bladder Training, Bowel Management, Bowel Training, Disease Management & Educaiton, DVT Prophylaxis, Fall Prevention, Fluid/Electrolyte/Nutrition Mgmt, Infection Prevention, Medication Management & Education, Management of Risks & Complications, Management of Skin Intergrity, Nutrition Management, Pain Management, Patient/Family Support, Safety Management, Wound Management Intensity of Therapy to be met Patient to be seen: Min.3h per day/5 of 7d PT IPOC Problem List: Activity Tolerance, Functional Strength, Safety, Balance, Gait, Transfer, Bed Mobility, ROM Treatment Plan: Continue Plan of Care Bed Mobility, Concurrent Therapy, Education, Functional Activity Sharad, Functional Strength, Group Therapy, Gait, Safety, Therapeutic Exercise, Transfers Treatment Duration: Jul 28, 2021 Frequency: At least 5 of 7 days/Wk (IRF) Estimated Hrs Per Day: 1.5 hours per day OT IPOC Problems: Decreased Activ Tolerance, Decreased UE Strength, Impaired Funct Balance, Impaired I ADL's, Impaired Self-Care Skills, Restricted Funct UE ROM OT Treatment, Training and Edu: Yes Plan of Care: ADL Retraining, Functional Mobility, Group Exercise/Act as Ind, UE Funct Exercise/Act Treatment Duration: Jul 27, 2021 Frequency: At least 5 of 7 days/Wk (IRF) Estimated Hrs Per Day: 1.[address] IPOC Speech Therapy Treatment Plan: Continue Plan of Care Treatment Duration: Jul 20, 2021 Frequency: 4 times per week (Patient will receive skilled ST 4-5x per week) Estimated Hrs Per Day: .25 hour per day [place]/Case Mgmt [place]/Case Managemen: Discharge Planning Dietitian/Piper Helper Dietitian/Piper Helper to monitor nutritional status and make changes and/or rec ommendations as needed and work with speech pathology on dietary upgrades as the occur. Physician IPOC Medical Issues being managed closely and that require the 24 hour availability of a physician: Recent knee replacement with cognitive decline and postop anemia will require close monitoring for any decompensation in the postoperative state Medical Issues: Bowel/Bladder Function, DVT Prophylaxis, Falls Precautions, Fluid/Electrolyte/Nutrition Balance, Infection Protection, Pain Management, Wound Care Brief Synthesis of Preadmission Screen, Post-Admission Evaluation, and Therapy Evaluations: PT and OT will focus on regaining function in order to ambulate with assistive device and increase independence in ADLs in order to return back home with spouse Medical Prognosis: Good Anticipated Length of Stay: 10 days JEANNE HENSON DO Jul 07, 2021 13:11
[2021-07-07] MEDS ORDERED: FUROSEMIDE 20 MG (LASIX) TAB PO PRN (13:30)
[2021-07-07] MEDS ORDERED: ARTIFICAL TEARS 0.4 ML UNIT DOSE (REFRESH PLUS) OU PRN (14:30)
[2021-07-07] MEDS: ALPRAZolam 0.25 MG (XANAX) TAB PO PRN (17:26)
[2021-07-07] MEDS: metFORMIN XR 500 MG (GLUCOPHAGE XR) TAB PO SCH (17:27)
[2021-07-07] MEDS: ACETAMINOPHEN 325 MG TABLET PO PRN (17:27)
[2021-07-07] MEDS: LOSARTAN 50 MG (COZAAR) TAB PO SCH (17:27)
[2021-07-07 20:00] VITALS: BP 119/53
[2021-07-07] MEDS: FLECAINIDE 100 MG (TAMBOCOR) TAB PO SCH (22:10)
[2021-07-07] MEDS: MIRTAZAPINE 15 MG (REMERON) TAB PO SCH (22:10)
[2021-07-07] MEDS: APIXABAN 2.5 MG (ELIQUIS) TABLET PO SCH (22:11)
[2021-07-07] MEDS: FAMOTIDINE 20 MG (PEPCID) TABLET PO SCH (22:11)
[2021-07-08 07:30] VITALS: BP 129/58
[2021-07-08] MEDS: polyethylene glycoL POWDER 17 GM (MIRALAX) PACK PO SCH ×2 (08:47→19:59)
[2021-07-08] MEDS: DOCUSATE SODIUM 100 MG (COLACE) CAP PO SCH ×2 (08:47→19:59)
[2021-07-08] MEDS: VITAMIN D3 25 MCG (1,000 UNITS) TABLET PO SCH (09:04)
[2021-07-08] MEDS: ASPIRIN E.C. 81 MG (ECOTRIN) TAB PO SCH (09:05)
[2021-07-08] MEDS: LACTOBACILLUS ACIDOPHILUS (PROBIOTIC) CAPSULE PO SCH (09:05)
[2021-07-08] MEDS: PANTOPRAZOLE 40 MG (PROTONIX) TAB PO SCH (09:05)
[2021-07-08] MEDS: FAMOTIDINE 20 MG (PEPCID) TABLET PO SCH ×2 (09:05→20:32)
[2021-07-08] MEDS: SENNA W/DOCUSATE (SENOKOT S) TABLET PO SCH ×2 (09:10→20:00)
[2021-07-08] MEDS: FLECAINIDE 100 MG (TAMBOCOR) TAB PO SCH ×2 (09:56→20:33)
[2021-07-08] MEDS: ESTROGENS CONJUGATED 0.45 MG (PREMARIN) TAB PO SCH (09:56)
[2021-07-08] MEDS: APIXABAN 2.5 MG (ELIQUIS) TABLET PO SCH ×2 (09:56→20:31)
[2021-07-08] MEDS: ALPRAZolam 0.25 MG (XANAX) TAB PO PRN (09:58)
--- NOTE | 2021-07-08 12:17 | PM&R Progress Note ---
Subjective HPI/CC On Admission Date Seen by Provider: Jul 08, 2021 Time Seen by Provider: 12:20 Subjective/Events-last exam 07/08/2021: Patient doing really well Cognition issues are evident in the afternoon and evening Oxycodone 10 mg required for pain control Xanax also helps Moving around pretty well 07/07/2021: Patient doing really well Getting in and out of bed very well CPM machine maintained Bowels are moving Home meds were restarted Review of Systems General: Fatigue, Malaise Musculoskeletal: leg pain Objective Exam Vital Signs Vital Signs Date Time Temp Pulse Resp B/P (MAP) Pulse Ox O2 Delivery O2 Flow Rate FiO2 07/08/21 09:06 Room Air 07/08/21 07:30 37.0 82 16 129/58 (81) 98 Capillary Refill : General Appearance: No Apparent Distress, WD/WN, Chronically ill HEENT: PERRL/EOMI, Normal ENT Inspection, Pharynx Normal Neck: Full Range of Motion, Normal Inspection, Non Tender, Supple, Carotid Bruit Respiratory: Chest Non Tender, Lungs Clear, Normal Breath Sounds, No Accessory Muscle Use, No Respiratory Distress Cardiovascular: Regular Rate, Rhythm, No Edema, No Gallop, No JVD, No Murmur, Normal Peripheral Pulses Gastrointestinal: Normal Bowel Sounds, No Organomegaly, No Pulsatile Mass, Non Tender, Soft Back: Normal Inspection, No CVA Tenderness, No Vertebral Tenderness Extremity: Normal Capillary Refill, Normal Inspection, Normal Range of Motion (Except right leg), Non Tender, No Calf Tenderness, No Pedal Edema Neurologic/Psychiatric: Alert, Oriented x3, No Motor/Sensory Deficits, Normal Mood/Affect, cable 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 FIM Transfers Therapy Code Descriptions/Definitions Functional [place] Measure: 0=Not Assessed/NA 4=Minimal Assistance 1=Total Assistance 5=Supervision or Setup 2=Maximal Assistance 6=Modified [place] 3=Moderate Assistance 7=Complete IndependenceSCALE: Activities may be completed with or without assistive devices. 2-Wgnfisrnkw-upibsdw completes the activity by him/herself with no assistance from a helper. 5-Set-up or Clean-up Assistance-helper sets up or cleans up; patient completes activity. [place] assists only prior to or following the activity. 4-Supervision or Touching Assistance-helper provides verbal cues and/or touching/steadying and/or contact guard assistance as patient completes activity. Assistance may be provided throughout the activity or intermittently. 3-Partial/Moderate Assistance-helper does LESS THAN HALF the effort. [place] lifts, holds or supports trunk or limbs, but provides less than half the effort. 2-Substantial/Maximal Assistance-helper does MORE THAN HALF the effort. [place] lifts or holds trunk or limbs and provides more than half the effort. 9-Zbalfxfde-xgfzqx does ALL the effort. Patient does none of the effort to complete the activity. Or, the assistance of 2 or more helpers is required for the patient to complete the activity. If activity was not attempted, code reason: 7-Patient Refused. 9-Not Applicable-not attempted and the patient did not perform the activity before the current illness, exacerbation or injury. 10-Not Attempted due to Environmental Limitations-(lack of equipment, weather restraints, etc.). 88-Not Attempted due to Medical Conditions or Safety Concerns. Roll Left to Right (QC): 4 Sit to Lying (QC): 4 Sit to Stand (QC): 3 Chair/Dag-mq-Eafgz Xfer(QC): 3 Car Transfer (QC): 3 Gait Training Does the Patient Walk?: Yes Distance: 15' X2 Walk 10 feet (QC): 3 Walk 50 ft with 2 Turns(QC): 3 Walk 150 ft (QC): 88 Walking 10ft/uneven surface-QC: 3 Gait Persons Needed: 1 Gait Assistive Device: FWW Wheelchair Training Does the Pt Use a Wheelchair?: No Wheel 50 ft with 2 turns (QC): 9 Wheel 150 ft (QC): 9 Stair Training #of Steps: 4 1 Step (curb) (QC): 3 4 Steps (QC): 3 12 Steps (QC): 88 Balance Picking up an Object (QC): 88 ADL-Treatment Eating (QC): 6 (IND with lunch) Oral Hygiene (QC): 4 (CGA standing at sink with verbal cues for sequencing and safety.) Shower/Bathe Self (QC): 3 (Assist with RLE lower leg/foot. Pt able to wash all other parts, CGA in stand.) Upper Body Dressing (QC): 3 (Assist with managing bra down trunk, cues for sequencing of bra. Pt donned machine puller and laster shirt with min A with managing shirt down in back.) Lower Body Dressing (QC): 4 (CGA, pt able to thread BLEs into pants, and perform pant hike. min cues for sequencing as pt attempted to sit prior to pulling pants up.) On/Off Footwear (QC): 2 (Pt able to doff L gripper socks. Assist with doffing R gripper sock, donning/doffing TEDhose, and donning bilateral socks.) Toileting Hygiene (QC): 4 (CGA, pt able to manage clothing and hygiene, min verbal cues for sequencing/safety. ) Assessment/Plan Assessment and Plan Assess & Plan/Chief Complaint Assessment: Status post right knee replacement Generalized weakness and debility Fall risk History of lymphoma Paroxysmal atrial fibrillation History of recurrent GI bleeds Postop constipation Diabetes Hypertension Mild cognitive decline Plan: Inpatient rehab protocol Monitor cognition Pain control Bowel regimen 07/07/2021: Pain control Bowel regimen 07/08/2021: Supportive care Oxycodone Bowel regimen (1) Status post right knee replacement (2) Diffuse large B-cell lymphoma Status: Acute (3) Non-insulin dependent type 2 diabetes mellitus Status: Chronic (4) HLD (hyperlipidemia) Status: Chronic (5) Hypertension Status: Chronic (6) PAF (paroxysmal atrial fibrillation) Status: Chronic (7) Recurrent gastrointestinal hemorrhage Status: Chronic JEANNE HENSON DO Jul 08, 2021 12:17
[2021-07-08] MEDS: LOSARTAN 50 MG (COZAAR) TAB PO SCH (18:44)
[2021-07-08] MEDS: metFORMIN XR 500 MG (GLUCOPHAGE XR) TAB PO SCH (18:44)
[2021-07-08 19:56] VITALS: BP 120/56
[2021-07-08] MEDS: MIRTAZAPINE 15 MG (REMERON) TAB PO SCH (20:31)
--- NOTE | 2021-07-09 05:47 | PM&R Progress Note ---
Subjective HPI/CC On Admission Date Seen by Provider: Jul 09, 2021 Time Seen by Provider: 10:00 Subjective/Events-last exam 07/09/2021: Patient doing well Transfusion uneventful IV iron infusions will be started on Friday Check meds and labs Overall doing very well 07/08/2021: Patient doing really well Cognition issues are evident in the afternoon and evening Oxycodone 10 mg required for pain control Xanax also helps Moving around pretty well 07/07/2021: Patient doing really well Getting in and out of bed very well CPM machine maintained Bowels are moving Home meds were restarted Review of Systems General: Fatigue, Malaise Musculoskeletal: leg pain Objective Exam Vital Signs Vital Signs Date Time Temp Pulse Resp B/P (MAP) Pulse Ox O2 Delivery O2 Flow Rate FiO2 07/09/21 20:10 Room Air 07/09/21 20:00 37.4 103 20 115/53 (73) 91 07/09/21 09:32 90.00 Capillary Refill : General Appearance: No Apparent Distress, WD/WN, Chronically ill HEENT: PERRL/EOMI, Normal ENT Inspection, Pharynx Normal Neck: Full Range of Motion, Normal Inspection, Non Tender, Supple, Carotid Bruit Respiratory: Chest Non Tender, Lungs Clear, Normal Breath Sounds, No Accessory Muscle Use, No Respiratory Distress Cardiovascular: Regular Rate, Rhythm, No Edema, No Gallop, No JVD, No Murmur, Normal Peripheral Pulses Gastrointestinal: Normal Bowel Sounds, No Organomegaly, No Pulsatile Mass, Non Tender, Soft Back: Normal Inspection, No CVA Tenderness, No Vertebral Tenderness Extremity: Normal Capillary Refill, Normal Inspection, Normal Range of Motion (Except right leg), Non Tender, No Calf Tenderness, No Pedal Edema Neurologic/Psychiatric: Alert, Oriented x3, No Motor/Sensory Deficits, Normal 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 FIM Transfers Therapy Code Descriptions/Definitions Functional [place] Measure: 0=Not Assessed/NA 4=Minimal Assistance 1=Total Assistance 5=Supervision or Setup 2=Maximal Assistance 6=Modified [place] 3=Moderate Assistance 7=Complete IndependenceSCALE: Activities may be completed with or without assistive devices. 0-Svkjnaakjf-wmnzzed completes the activity by him/herself with no assistance from a helper. 5-Set-up or Clean-up Assistance-helper sets up or cleans up; patient completes activity. [place] assists only prior to or following the activity. 4-Supervision or Touching Assistance-helper provides verbal cues and/or touching/steadying and/or contact guard assistance as patient completes ac tivity. Assistance may be provided throughout the activity or intermittently. 3-Partial/Moderate Assistance-helper does LESS THAN HALF the effort. [place] lifts, holds or supports trunk or limbs, but provides less than half the effort. 2-Substantial/Maximal Assistance-helper does MORE THAN HALF the effort. [place] lifts or holds trunk or limbs and provides more than half the effort. 4-Ivwwmecpx-zzybgz does ALL the effort. Patient does none of the effort to complete the activity. Or, the assistance of 2 or more helpers is required for the patient to complete the activity. If activity was not attempted, code reason: 7-Patient Refused. 9-Not Applicable-not attempted and the patient did not perform the activity before the current illness, exacerbation or injury. 10-Not Attempted due to Environmental Limitations-(lack of equipment, weather restraints, etc.). 88-Not Attempted due to Medical Conditions or Safety Concerns. Roll Left to Right (QC): 4 Sit to Lying (QC): 4 Sit to Stand (QC): 3 Chair/Lcz-da-Vykbv Xfer(QC): 3 Car Transfer (QC): 3 Gait Training Does the Patient Walk?: Yes Distance: 15' X2 Walk 10 feet (QC): 3 Walk 50 ft with 2 Turns(QC): 3 Walk 150 ft (QC): 88 Walking 10ft/uneven surface-QC: 3 Gait Persons Needed: 1 Gait Assistive Device: FWW Wheelchair Training Does the Pt Use a Wheelchair?: No Wheel 50 ft with 2 turns (QC): 9 Wheel 150 ft (QC): 9 Stair Training #of Steps: 4 1 Step (curb) (QC): 3 4 Steps (QC): 3 12 Steps (QC): 88 Balance Picking up an Object (QC): 88 ADL-Treatment Eating (QC): 6 (IND with lunch) Oral Hygiene (QC): 4 (CGA standing at sink with verbal cues for sequencing and safety.) Shower/Bathe Self (QC): 3 (Assist with RLE lower leg/foot. Pt able to wash all other parts, CGA in stand.) Upper Body Dressing (QC): 3 (Assist with managing bra down trunk, cues for sequencing of bra. 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 min cues for sequencing as pt attempted to sit prior to pulling pants up.) On/Off Footwear (QC): 2 (Pt able to doff L gripper socks. Assist with doffing R gripper sock, donning/doffing TEDhose, and donning bilateral socks.) Toileting Hygiene (QC): 4 (CGA, pt able to manage clothing and hygiene, min verbal cues for sequencing/safety. ) Assessment/Plan Assessment and Plan Assess & Plan/Chief Complaint Assessment: Status post right knee replacement Generalized weakness and debility Fall risk History of lymphoma Paroxysmal atrial fibrillation History of recurrent GI bleeds Postop constipation Diabetes Hypertension Mild cognitive decline Severe iron deficiency requiring transfusion and iron infusions Plan: Inpatient rehab protocol Monitor cognition Pain control Bowel regimen 07/07/2021: Pain control Bowel regimen 07/08/2021: Supportive care Oxycodone Bowel regimen 07/09/2021: Transfuse 1 unit Supportive care Iron infusions on Friday (1) Status post right knee replacement (2) Diffuse large B-cell lymphoma Status: Acute (3) Non-insulin dependent type 2 diabetes mellitus Status: Chronic (4) HLD (hyperlipidemia) Status: Chronic (5) Hypertension Status: Chronic (6) PAF (paroxysmal atrial fibrillation) Status: Chronic (7) Recurrent gastrointestinal hemorrhage Status: Chronic JEANNE HENSON DO Jul 09, 2021 05:47
[2021-07-09 05:49] LABS: BASOPHILS # (AUTO) 0.1 10^3/uL (0.0-0.1); BASOPHILS % (AUTO) 1 % (0-10); EOSINOPHILS # (AUTO) 0.4 10^3/uL (0.0-0.3); EOSINOPHILS % (AUTO) 5 % (0-10); HEMATOCRIT 22 % (35-52); LYMPHOCYTES % (AUTO) 13 % (12-44); MEAN CORPUSCULAR HEMOGLOBIN 29 pg (25-34); MEAN CORPUSCULAR HGB CONC 31 g/dL (32-36); MEAN CORPUSCULAR VOLUME 95 fL (80-99); MEAN PLATELET VOLUME 9.4 fL (9.0-12.2); MONOCYTES # (AUTO) 1.1 10^3/uL (0.0-1.0); MONOCYTES % (AUTO) 14 % (0-12); NEUTROPHILS # (AUTO) 5.1 10^3/uL (1.8-7.8); NEUTROPHILS % (AUTO) 67 % (42-75); PLATELET COUNT 289 10^3/uL (130-400); WHITE BLOOD COUNT 7.6 10^3/uL (4.3-11.0)
[2021-07-09 05:55] LABS: HEMOGLOBIN 6.8 g/dL (11.5-16.0)
[2021-07-09 06:06] LABS: ALBUMIN 2.7 GM/DL (3.2-4.5); POTASSIUM 3.5 MMOL/L (3.6-5.0)
[2021-07-09 06:07] LABS: CALCIUM 8.1 MG/DL (8.5-10.1)
[2021-07-09 06:08] LABS: TOTAL PROTEIN 5.6 GM/DL (6.4-8.2)
[2021-07-09 06:10] LABS: BILIRUBIN,TOTAL 0.4 MG/DL (0.1-1.0)
[2021-07-09 06:12] LABS: CREATININE SERUM 0.72 MG/DL (0.60-1.30)
[2021-07-09] MEDS ORDERED: NS IV 500 ML 500 ML IV SCH (06:30)
[2021-07-09] MEDS: ALPRAZolam 0.25 MG (XANAX) TAB PO PRN (07:28)
[2021-07-09] MEDS: PANTOPRAZOLE 40 MG (PROTONIX) TAB PO SCH (07:28)
[2021-07-09] MEDS: ESTROGENS CONJUGATED 0.45 MG (PREMARIN) TAB PO SCH (07:28)
[2021-07-09] MEDS: APIXABAN 2.5 MG (ELIQUIS) TABLET PO SCH ×2 (07:29→09:02)
[2021-07-09] MEDS: VITAMIN D3 25 MCG (1,000 UNITS) TABLET PO SCH (07:29)
[2021-07-09] MEDS: ASPIRIN E.C. 81 MG (ECOTRIN) TAB PO SCH (07:29)
[2021-07-09] MEDS: LACTOBACILLUS ACIDOPHILUS (PROBIOTIC) CAPSULE PO SCH (07:29)
[2021-07-09] MEDS: FLECAINIDE 100 MG (TAMBOCOR) TAB PO SCH ×2 (07:29→20:20)
[2021-07-09] MEDS: polyethylene glycoL POWDER 17 GM (MIRALAX) PACK PO SCH ×2 (07:30→20:23)
[2021-07-09] MEDS: DOCUSATE SODIUM 100 MG (COLACE) CAP PO SCH ×2 (07:30→20:23)
[2021-07-09] MEDS: SENNA W/DOCUSATE (SENOKOT S) TABLET PO SCH ×2 (07:30→20:23)
[2021-07-09 08:00] VITALS: BP 116/54
[2021-07-09 09:21] VITALS: BP 117/57
[2021-07-09 09:32] VITALS: BP 109/53
--- NOTE | 2021-07-09 09:58 | Speech Therapy Daily Note ---
Speech Daily Progress Note Subjective Date Seen by Provider: Jul 09, 2021 Time Seen by Provider: 00:30 The patient was resting in her bed and had just began receiving blood. She states she is very tired and worn out. She was able to participate with speech therapy. Objective Patient demonstrated memory/recall of information since her surgery at 75% with min to mod cues. Assessment Assessment Current Status: Fair Progress Treatment Plan Continue Plan of Care Speech Short Term Goals Short Term Goals Short Term Goals 1) Patient will complete memory tasks related to her daily needs at 80% or greater with minimal cues. 2) Patient will complete safety awareness tasks related to her daily needs at 80% or greater with minimal cues. 3) Patient will complete problem solving tasks related to her daily needs at 80% or greater with minimal cues. Speech Business Intelligence Manager Goals Shelter Goals Patient will improve functional cognitive abilities in order to increase safety and independence. Speech-Plan Patient/Family Goals Patient/Family Goals: Patient plans on returning to her home where she lives with her . Treatment Plan Speech Therapy Treatment Plan: Continue Plan of Care Treatment Duration: Jul 20, 2021 Frequency: 4 times per week (Patient will receive skilled ST 4-5x per week) Estimated Hrs Per Day: .25 hour per day Rehab Potential: Good Barriers to Learning: Patient's mild cognitive deficit, recent surgery Pt/Family Agrees to Plan: Yes Safety Risks/Education Teaching Recipient: Patient Teaching Methods: Demonstration, Discussion Response to Teaching: Verbalize Understanding, Return Demonstration Education Topics Provided: Continued safety and communication of wants/needs. Time Speech Therapy Time In: 09:30 Speech Therapy Time Out: 10:00 Total Billed Time: 30 Billed Treatment Time 1, JOHN Fleming Jul 09, 2021 09:58
--- NOTE | 2021-07-09 10:58 | Physical Therapy Daily Note ---
PT Daily Note-Current Subjective Pt. agrees to Rx, c/o she is very cold and weak and asks for warmed blankets ( delivered). Pt. c/o pain only with movement, while still no c/o . Pt. explains that she is not sure if she was limited in ROM before surgery. Pts Hgb 6.3 and receiving blood at this time. Pain Numeric Pain Scale: 5-Moderate Pain Location: Right Location Body Site: Knee Pain Description: Ache Mental Status Patient Orientation: Normal For Age Attachments: IV (blood) Transfers SCALE: Activities may be completed with or without assistive devices. 7-Skeajlwtep-mvoukfx completes the activity by him/herself with no assistance from a helper. 5-Set-up or Clean-up Assistance-helper sets up or cleans up; patient completes activity. [place] assists only prior to or following the activity. 4-Supervision or Touching Assistance-helper provides verbal cues and/or touching/steadying and/or contact guard assistance as patient completes activity. Assistance may be provided throughout the activity or intermittently. 3-Partial/Moderate Assistance-helper does LESS THAN HALF the effort. [place] lifts, holds or supports trunk or limbs, but provides less than half the effort. 2-Substantial/Maximal Assistance-helper does MORE THAN HALF the effort. [place] lifts or holds trunk or limbs and provides more than half the effort. 6-Mvahagglx-jwsshj does ALL the effort. Patient does none of the effort to complete the activity. Or, the assistance of 2 or more helpers is required for the patient to complete the activity. If activity was not attempted, code reason: 7-Patient Refused. 9-Not Applicable-not attempted and the patient did not perform the activity before the current illness, exacerbation or injury. 10-Not Attempted due to Environmental Limitations-(lack of equipment, weather restraints, etc.). 88-Not Attempted due to Medical Conditions or Safety Concerns. Roll Left & Right (QC): 6 Sit to Lying (QC): 6 Lying to Sitting/Side of Bed(Q: 6 Sit to Stand (QC): 6 Chair/Zbg-aw-Pwkba Xfer(QC): 5 Toilet Transfer (QC): 6 pt. was instructed in how to pull herself up in the bed with HOB flat and left LE flexed and pulling up at bed rails, Pt. commented that this was easy and made her feel so much more comfortable. Weight Bearing Right Lower Extremity: Right Weight Bearing/Tolerated Left Lower Extremity: Left Full Weight Bearing Gait Training Does the Patient Walk?: Yes Walk 10 feet (QC): 5 Walk 50 ft with 2 Turns(QC): 5 Gait Persons Needed: 1 Gait Assistive Device: FWW gait to toilet and back CGA and assist for IV. Pt. uses FWW correctly for wt bearing etc, good sequencing etc Exercises Supine Ex: Ankle pumps, Quad Set, Rolling, Glut sets, Heel Slides, Short Arc Quads, Scooting (up in bed indep as well as to side for in out bed), Straight leg raise (assisted right), Hip abd/add Supine Reps: 20 Seated Therapy Exercises: Sit to stand, Long arc quads (bilat) Seated Reps: 12 Treatments polar pack and CPM initiated during this Rx as well as TEDs donned bilat allowing pt to reach in sitting position to assist in donning from knee up. CPM set at 0 to 75 degrees. will attempt to increase flexion at later Rx Assessment Current Status: Good Progress pt. with low hgb this date . Careful not to tax pt. as she c/o feeling very weak PT Arbor Press Operator Goals Care Home Goals PT Care Home Goals Time Frame: Jul 28, 2021 Roll Left & Right (QC): 6 Sit to Lying (QC): 6 Lying-Sitting on Side/Bed(QC): 6 Sit to Stand (QC): 5 Chair/Fdh-kh-Fyzsi Xfer(QC): 5 Toilet Transfer (QC): 5 Car Transfer (QC): 5 Does the Patient Walk: Yes Walk 10 feet (QC): 5 Walk 50ft with 2 Turns (QC): 5 Walk 150 ft (QC): 5 Walking 10ft on Uneven Surface: 5 1 Step (curb) (QC): 5 4 Steps (QC): 5 12 Steps (QC): 5 Picking up an Object (QC): 4 Does the Pt use WC or Scooter?: No Wheel 50 feet with 2 turns (QC: 9 Type: N/A Wheel 150 feet: 9 Type: N/A PT Plan Treatment/Plan Treatment Plan: Continue Plan of Care Treatment Plan: Bed Mobility, Concurrent Therapy, Education, Functional Activity Shraad, Functional Strength, Group Therapy, Gait, Safety, Therapeutic Exercise, Transfers Treatment Duration: Jul 28, 2021 Frequency: At least 5 of 7 days/Wk (IRF) Estimated Hrs Per Day: 1.5 hours per day Patient and/or Family Agrees t: Yes Safety Risks/Education Patient Education: Gait Training, Transfer Techniques, Correct Positioning, Disease Process, Safety Issues Teaching Recipient: Patient Teaching Methods: Demonstration, Discussion Response to Teaching: Verbalize Understanding, Return Demonstration, Reinforcement Needed educated pt. regarding positioning of toes to ceiling for knee extension as well as hip int ext rotation for pain relief and relaxation. Pt. was also educated that if she raises the head of bed with CPM on she may note that it then feels to tight at flexion Time/GCodes Time In: 1000 Time Out: 1100 Total Billed Treatment Time: 60 Total Billed Treatment 1,GT15m,FA20m,EX25m ZENIA HAQUE PLASTIC PARTS DESIGNER Jul 09, 2021 10:58
[2021-07-09 11:10] VITALS: BP 135/62
[2021-07-09] MEDS ORDERED: DICLOFENAC 1% GEL 100 GM (VOLTAREN) TUBE TOP PRN (11:30)
--- NOTE | 2021-07-09 11:31 | Occupational Ther Daily Note ---
OT Current Status-Daily Note Subjective Pt in bed, receiving blood transfusion, agreeable to OT tx. Pt requests bed level activities due to feeling weak Mental Status/Objective Patient Orientation: Person, Place, Situation Attachments: Polar Pack ADL-Treatment Therapy Code Descriptions/Definitions Functional [place] Measure: 0=Not Assessed/NA 4=Minimal Assistance 1=Total Assistance 5=Supervision or Setup 2=Maximal Assistance 6=Modified [place] 3=Moderate Assistance 7=Complete IndependenceSCALE: Activities may be completed with or without assistive devices. 2-Ehsvlykfoz-ipvuqvy completes the activity by him/herself with no assistance from a helper. 5-Set-up or Clean-up Assistance-helper sets up or cleans up; patient completes activity. [place] assists only prior to or following the activity. 4-Supervision or Touching Assistance-helper provides verbal cues and/or touching/steadying and/or contact guard assistance as patient completes activity. Assistance may be provided throughout the activity or intermittently. 3-Partial/Moderate Assistance-helper does LESS THAN HALF the effort. [place] lifts, holds or supports trunk or limbs, but provides less than half the effort. 2-Substantial/Maximal Assistance-helper does MORE THAN HALF the effort. [place] lifts or holds trunk or limbs and provides more than half the effort. 7-Favnwnlpc-hbuctj does ALL the effort. Patient does none of the effort to complete the activity. Or, the assistance of 2 or more helpers is required for the patient to complete the activity. If activity was not attempted, code reason: 7-Patient Refused. 9-Not Applicable-not attempted and the patient did not perform the activity before the current illness, exacerbation or injury. 10-Not Attempted due to Environmental Limitations-(lack of equipment, weather restraints, etc.). 88-Not Attempted due to Medical Conditions or Safety Concerns. Other Treatment Pt in bed, agreeable to OT tx. OT tx with focus on increasing BUE strength and activity tolerance. Pt completed pegboard task, 1lb wrist weights BUEs. Pt instructed to alternate hands with task, required min verbal cues to follow instruction. She was able to place/remove x100 pegs. Pt then removed beads from moderate resistance theraputty in order to increase fine motor strength/coordination. Pt sorted deck of cards first by suit, then high to low. Pt's lunch arrived, she was able to open containers and eat independently. Post tx, pt in bed, call light in reach and all needs met, eating lunch. Education OT Patient Education: Correct positioning, Energy conservation, Modified ADL techniques, Progress toward Goal/Update tx plan, Purpose of tx/functional activi ties Teaching Recipient: Patient Teaching Methods: Discussion Response to Teaching: Verbalize Understanding OT Short Term Goals Short Term Goals Time Frame: Jul 18, 2021 Oral hygiene: 5 Toileting hygiene: 5 Shower/bathe self: 5 Upper body dressin Lower body dressin Putting on/taking off footwear: 5 OT Furnace Combustion Tester Goals Senior Care Goals Time Frame: Jul 27, 2021 Eating (QC): 6 Oral Hygiene (QC): 6 Toileting Hygiene (QC): 6 Shower/Bathe Self (QC): 6 Upper Body Dressing (QC): 6 Lower Body Dressing (QC): 6 On/Off Footwear (QC): 6 Additional Goals: 1-Demonstrate ADL Tasks, 2-Verbalize Understanding, 3- ImproveStrength/Sharad 1=Demonstrate adherence to instructed precautions during ADL tasks. 2=Patient will verbalize/demonstrate understanding of assistive devices/modifications for ADL. 3=Patient will improve strength/tolerance for activity to enable patient to perform ADL's. OT Education/Plan Problem List/Assessment Assessment: Decreased Activ Tolerance, Decreased UE Strength, Impaired Funct Balance, Impaired I ADL's, Impaired Self-Care Skills, Restricted Funct UE ROM Discharge Recommendations Plan/Recommendations: Continue POC Treatment Plan/Plan of Care Patient would benefit from OT for education, treatment and training to promote independence in ADL's, mobility, safety and/or upper extremity function for ADL's. Plan of Care: ADL Retraining, Functional Mobility, Group Exercise/Act as Ind, UE Funct Exercise/Act Treatment Duration: Jul 27, 2021 Frequency: At least 5 of 7 days/Wk (IRF) Estimated Hrs Per Day: 1.5 hours per day Rehab Potential: Good Time/GCodes Start Time: 11:00 Stop Time: 12:15 Total Time Billed (hr/min): 75 Billed Treatment Time 1, FA (60'), ADL (15') RYAN DUNNE OT Jul 09, 2021 11:31
[2021-07-09 13:20] VITALS: BP 119/52
--- NOTE | 2021-07-09 14:37 | Physical Therapy Daily Note ---
PT Daily Note-Current Subjective Patient in bed pre tx, agrees to PT, has 5/10 pain in right knee. Appearance Patient in recliner post tx with nurse call, phone, tray, all needs met. Mental Status Patient Orientation: Person, Place, Situation Transfers SCALE: Activities may be completed with or without assistive devices. 2-Fmzryuwaji-okwmshf completes the activity by him/herself with no assistance from a helper. 5-Set-up or Clean-up Assistance-helper sets up or cleans up; patient completes activity. [place] assists only prior to or following the activity. 4-Supervision or Touching Assistance-helper provides verbal cues and/or touchi ng/steadying and/or contact guard assistance as patient completes activity. Assistance may be provided throughout the activity or intermittently. 3-Partial/Moderate Assistance-helper does LESS THAN HALF the effort. [place] lifts, holds or supports trunk or limbs, but provides less than half the effort. 2-Substantial/Maximal Assistance-helper does MORE THAN HALF the effort. [place] lifts or holds trunk or limbs and provides more than half the effort. 5-Ckdxethcc-njkcry does ALL the effort. Patient does none of the effort to complete the activity. Or, the assistance of 2 or more helpers is required for the patient to complete the activity. If activity was not attempted, code reason: 7-Patient Refused. 9-Not Applicable-not attempted and the patient did not perform the activity before the current illness, exacerbation or injury. 10-Not Attempted due to Environmental Limitations-(lack of equipment, weather restraints, etc.). 88-Not Attempted due to Medical Conditions or Safety Concerns. Roll Left & Right (QC): 6 Lying to Sitting/Side of Bed(Q: 6 Sit to Stand (QC): 4 Chair/Cwo-zg-Qagzq Xfer(QC): 4 SBA for transfers Weight Bearing Right Lower Extremity: Right Weight Bearing/Tolerated Left Lower Extremity: Left Full Weight Bearing Gait Training Distance: 120'x2 Walk 10 feet (QC): 4 Walk 50 ft with 2 Turns(QC): 4 Gait Persons Needed: 1 Gait Assistive Device: FWW SBA, slow but steady ambulation, antalgic Exercises NuStep Minutes: 15 NuStep Workload: 5 Treatments bed mobility and transfers, ambulation, functional strengthening Assessment Current Status: Fair Progress improving general mobility PT Bullet Assembly Press Operator Goals Bullet Assembly Press Operator Goals PT Halfway Goals Time Frame: Jul 28, 2021 Roll Left & Right (QC): 6 Sit to Lying (QC): 6 Lying-Sitting on Side/Bed(QC): 6 Sit to Stand (QC): 5 Chair/Ogp-eh-Zkqzh Xfer(QC): 5 Toilet Transfer (QC): 5 Car Transfer (QC): 5 Does the Patient Walk: Yes Walk 10 feet (QC): 5 Walk 50ft with 2 Turns (QC): 5 Walk 150 ft (QC): 5 Walking 10ft on Uneven Surface: 5 1 Step (curb) (QC): 5 4 Steps (QC): 5 12 Steps (QC): 5 Picking up an Object (QC): 4 Does the Pt use WC or Scooter?: No Wheel 50 feet with 2 turns (QC: 9 Type: N/A Wheel 150 feet: 9 Type: N/A PT Plan Problem List Problem List: Activity Tolerance, Functional Strength, Safety, Balance, Gait, Transfer, Bed Mobility, ROM Treatment/Plan Treatment Plan: Continue Plan of Care Treatment Plan: Bed Mobility, Concurrent Therapy, Education, Functional Activity Sharad, Functional Strength, Group Therapy, Gait, Safety, Therapeutic Exercise, Transfers Treatment Duration: Jul 28, 2021 Frequency: At least 5 of 7 days/Wk (IRF) Estimated Hrs Per Day: 1.5 hours per day Patient and/or Family Agrees t: Yes Safety Risks/Education Patient Education: Gait Training, Transfer Techniques, Correct Positioning, Safety Issues Teaching Recipient: Patient Teaching Methods: Demonstration, Discussion Response to Teaching: Reinforcement Needed Time/GCodes Time In: 1405 Time Out: 1435 Total Billed Treatment Time: 30 Total Billed Treatment 1 visit GT 15' EX 15' RENEE WHITE PT Jul 09, 2021 14:37
[2021-07-09] MEDS: LOSARTAN 50 MG (COZAAR) TAB PO SCH (17:33)
[2021-07-09] MEDS: metFORMIN XR 500 MG (GLUCOPHAGE XR) TAB PO SCH (17:34)
[2021-07-09 20:00] VITALS: BP 115/53
[2021-07-09] MEDS: MIRTAZAPINE 15 MG (REMERON) TAB PO SCH (20:19)
[2021-07-09] MEDS: FAMOTIDINE 20 MG (PEPCID) TABLET PO SCH (20:19)
[2021-07-09] MEDS: ONDANSETRON 4 MG (ZOFRAN) ORAL DISSOLVE TAB PO PRN (22:15)
[2021-07-10] MEDS: MULTIVIT W/MINERALS TAB (THERAGRAN M) PO SCH (06:26)
[2021-07-10 07:22] VITALS: BP 137/60
[2021-07-10] MEDS: VITAMIN D3 25 MCG (1,000 UNITS) TABLET PO SCH (08:36)
[2021-07-10] MEDS: ASPIRIN E.C. 81 MG (ECOTRIN) TAB PO SCH (08:36)
[2021-07-10] MEDS: LACTOBACILLUS ACIDOPHILUS (PROBIOTIC) CAPSULE PO SCH (08:37)
[2021-07-10] MEDS: ESTROGENS CONJUGATED 0.45 MG (PREMARIN) TAB PO SCH (08:37)
[2021-07-10] MEDS: DOCUSATE SODIUM 100 MG (COLACE) CAP PO SCH ×2 (08:38→20:26)
[2021-07-10] MEDS: SENNA W/DOCUSATE (SENOKOT S) TABLET PO SCH ×2 (08:38→20:26)
[2021-07-10] MEDS: FLECAINIDE 100 MG (TAMBOCOR) TAB PO SCH ×2 (08:38→20:26)
[2021-07-10] MEDS: PANTOPRAZOLE 40 MG (PROTONIX) TAB PO SCH (08:38)
[2021-07-10] MEDS: polyethylene glycoL POWDER 17 GM (MIRALAX) PACK PO SCH ×2 (08:42→20:28)
--- NOTE | 2021-07-10 08:56 | PM&R Progress Note ---
Subjective HPI/CC On Admission Date Seen by Provider: Jul 10, 2021 Time Seen by Provider: 08:40 Subjective/Events-last exam 07/10/2021: Pt doing well Hgb 8.9 Starting iron infusions today Checked meds and labs DC on Friday07/09/2021: Patient doing well Transfusion uneventful IV iron infusions will be started on Friday Check meds and labs Overall doing very well 07/08/2021: Patient doing really well Cognition issues are evident in the afternoon and evening Oxycodone 10 mg required for pain control Xanax also helps Moving around pretty well 07/07/2021: Patient doing really well Getting in and out of bed very well CPM machine maintained Bowels are moving Home meds were restarted Review of Systems Musculoskeletal: leg pain Objective Exam Vital Signs Vital Signs Date Time Temp Pulse Resp B/P (MAP) Pulse Ox O2 Delivery O2 Flow Rate FiO2 07/10/21 20:41 Room Air 07/10/21 20:04 36.6 99 18 102/51 (68) 92 07/09/21 09:32 90.00 Capillary Refill : General Appearance: No Apparent Distress, WD/WN, Chronically ill HEENT: PERRL/EOMI, Normal ENT Inspection, Pharynx Normal Neck: Full Range of Motion, Normal Inspection, Non Tender, Supple, Carotid Bruit Respiratory: Chest Non Tender, Lungs Clear, Normal Breath Sounds, No Accessory Muscle Use, No Respiratory Distress Cardiovascular: Regular Rate, Rhythm, No Edema, No Gallop, No JVD, No Murmur, Normal Peripheral Pulses Gastrointestinal: Normal Bowel Sounds, No Organomegaly, No Pulsatile Mass, Non Tender, Soft Back: Normal Inspection, No CVA Tenderness, No Vertebral Tenderness Extremity: Normal Capillary Refill, Normal Inspection, Normal Range of Motion (Except right leg), Non Tender, No Calf Tenderness, No Pedal Edema Neurologic/Psychiatric: Alert, Oriented x3, No Motor/Sensory Deficits, Normal Mood/Affect, gse mechanic II-XII Norm as Tested, Abnormal Gait, Disoriented (Poor recall), Motor Weakness (Generalized 4/5 all extremities) Skin: Normal Color, Warm/Dry Lymphatic: No Adenopathy Results/Procedures Lab Laboratory Tests 07/10/21 06:46 Patient resulted labs reviewed. FIM Transfers Therapy Code Descriptions/Definitions Functional [place] Measure: 0=Not Assessed/NA 4=Minimal Assistance 1=Total Assistance 5=Supervision or Setup 2=Maximal Assistance 6=Modified [place] 3=Moderate Assistance 7=Complete IndependenceSCALE: Activities may be completed with or without assistive devices. 4-Tjhlynahjk-mfiesrp completes the activity by him/herself with no assistance from a helper. 5-Set-up or Clean-up Assistance-helper sets up or cleans up; patient completes activity. [place] assists only prior to or following the activity. 4-Supervision or Touching Assistance-helper provides verbal cues and/or touching/steadying and/or contact guard assistance as patient completes activity. Assistance may be provided throughout the activity or intermittently. 3-Partial/Moderate Assistance-helper does LESS THAN HALF the effort. [place] lifts, holds or supports trunk or limbs, but provides less than half the effort. 2-Substantial/Maximal Assistance-helper does MORE THAN HALF the effort. [place] lifts or holds trunk or limbs and provides more than half the effort. 9-Niprnusug-qzanxj does ALL the effort. Patient does none of the effort to complete the activity. Or, the assistance of 2 or more helpers is required for the patient to complete the activity. If activity was not attempted, code reason: 7-Patient Refused. 9-Not Applicable-not attempted and the patient did not perform the activity before the current illness, exacerbation or injury. 10-Not Attempted due to Environmental Limitations-(lack of equipment, weather restraints, etc.). 88-Not Attempted due to Medical Conditions or Safety Concerns. Roll Left to Right (QC): 6 Sit to Lying (QC): 6 Sit to Stand (QC): 4 Chair/Ggc-sr-Jirjj Xfer(QC): 4 Car Transfer (QC): 3 Gait Training Does the Patient Walk?: Yes Distance: 120'x2 Walk 10 feet (QC): 4 Walk 50 ft with 2 Turns(QC): 4 Walk 150 ft (QC): 88 Walking 10ft/uneven surface-QC: 3 Gait Persons Needed: 1 Gait Assistive Device: FWW Wheelchair Training Does the Pt Use a Wheelchair?: No Wheel 50 ft with 2 turns (QC): 9 Wheel 150 ft (QC): 9 Stair Training #of Steps: 4 1 Step (curb) (QC): 3 4 Steps (QC): 3 12 Steps (QC): 88 Balance Picking up an Object (QC): 88 ADL-Treatment Eating (QC): 6 (IND with lunch) Oral Hygiene (QC): 4 (CGA standing at sink with verbal cues for sequencing and safety.) Shower/Bathe Self (QC): 3 (Assist with RLE lower leg/foot. Pt able to wash all other parts, CGA in stand.) Upper Body Dressing (QC): 3 (Assist with managing bra down trunk, cues for sequencing of bra. Pt donned nail puller shirt with min A with managing shirt down in back.) Lower Body Dressing (QC): 4 (CGA, pt able to thread BLEs into pants, and perform pant hike. min cues for sequencing as pt attempted to sit prior to pulling pants up.) On/Off Footwear (QC): 2 (Pt able to doff L gripper socks. Assist with doffing R gripper sock, donning/doffing TEDhose, and donning bilateral socks.) Toileting Hygiene (QC): 4 (CGA, pt able to manage clothing and hygiene, min verbal cues for sequencing/safety. ) Assessment/Plan Assessment and Plan Assess & Plan/Chief Complaint Assessment: Status post right knee replacement Generalized weakness and debility Fall risk History of lymphoma Paroxysmal atrial fibrillation History of recurrent GI bleeds Postop constipation Diabetes Hypertension Mild cognitive decline Severe iron deficiency requiring transfusion and iron infusions Plan: Inpatient rehab protocol Monitor cognition Pain control Bowel regimen 07/07/2021: Pain control Bowel regimen 07/08/2021: Supportive care Oxycodone Bowel regimen 07/09/2021: Transfuse 1 unit Supportive care Iron infusions on Friday07/10/2021: Improved hemoglobin Doing very well today (1) Status post right knee replacement (2) Diffuse large B-cell lymphoma Status: Acute (3) Non-insulin dependent type 2 diabetes mellitus Status: Chronic (4) HLD (hyperlipidemia) Status: Chronic (5) Hypertension Status: Chronic (6) PAF (paroxysmal atrial fibrillation) Status: Chronic (7) Recurrent gastrointestinal hemorrhage Status: Chronic JEANNE HENSON DO Jul 10, 2021 08:56
--- NOTE | 2021-07-10 09:13 | Occupational Ther Daily Note ---
OT Current Status-Daily Note Subjective Pt laying in bed, agreeable to OT Tx. throughout session, pt kept referring to relaxing "before therapy", pt required redirection that she was doing therapy already. Mental Status/Objective Patient Orientation: Person, Confused, Place, Situation ADL-Treatment Therapy Code Descriptions/Definitions Functional [place] Measure: 0=Not Assessed/NA 4=Minimal Assistance 1=Total Assistance 5=Supervision or Setup 2=Maximal Assistance 6=Modified [place] 3=Moderate Assistance 7=Complete IndependenceSCALE: Activities may be completed with or without assistive devices. 4-Bdjvldgcso-fjafxfd completes the activity by him/herself with no assistance from a helper. 5-Set-up or Clean-up Assistance-helper sets up or cleans up; patient completes activity. [place] assists only prior to or following the activity. 4-Supervision or Touching Assistance-helper provides verbal cues and/or touching/steadying and/or contact guard assistance as patient completes activity. Assistance may be provided throughout the activity or intermittently. 3-Partial/Moderate Assistance-helper does LESS THAN HALF the effort. [place] lifts, holds or supports trunk or limbs, but provides less than half the effort. 2-Substantial/Maximal Assistance-helper does MORE THAN HALF the effort. [place] lifts or holds trunk or limbs and provides more than half the effort. 5-Fbjotpmmh-clflna does ALL the effort. Patient does none of the effort to complete the activity. Or, the assistance of 2 or more helpers is required for the patient to complete the activity. If activity was not attempted, code reason: 7-Patient Refused. 9-Not Applicable-not attempted and the patient did not perform the activity before the current illness, exacerbation or injury. 10-Not Attempted due to Environmental Limitations-(lack of equipment, weather restraints, etc.). 88-Not Attempted due to Medical Conditions or Safety Concerns. Bathing Location: L Arm, R Arm, L Upper Leg, R Upper Leg, L Lower Leg (including foot), R Lower Leg (including foot), Chest, Abdomen, Buttocks, Perineal Area Shower/Bathe Self (QC): 4 (CGA in stand to wash buttocks/periarea. Min cues for sequencing. Pt utilized LH sponge for LEs.) Upper Body Dressing (QC): 5 (set up, pt able to don/doff bra and ladle puller shirt.) Lower Body Dressing (QC): 4 (CGA in stand for pant hike, min cues for sequencing of task. Pt educated on internal controls specialist for doffing, did not utilize to don. ) On/Off Footwear: 3 (Assist to don tamiko hose, pt able to doff gripper socks using internal controls specialist. donned without AE.) Toileting Hygiene (QC): 4 (CGA in stand for pant hike, pt able to manage hygiene and clothing.) Toilet Transfer (QC): 4 (CGA-SBA.) Other Treatment Pt in bed, agreeable to OT Tx. Pt transferred supine to sit EOB without assistance, then used FWW to perform functional mobility into bathroom, SBA. Pt sat on BSC over toilet, educated on using internal controls specialist to doff LE clothing. Pt able to doff with increased time and min cues. Pt then used FWW to transfer to TN, CGA. Pt doffed remainder of clothes, then completed shower. Pt educated on LH sponge to wash/dry LEs. Pt transferred to dry chair to don clothes. OT attempted education on AE for donning LE clothing, but pt able to don pants/socks without AE. Pt states need to toilet, transferring to BSC over toilet, CGA. Pt completed toileting, then stood at sink to wash her hand, SBA. Pt used FWW to perform functional mobility into kitchen area. Pt located 10/10 evans bags in cabinets/drawers of various heights, utilizing internal controls specialist as needed. Pt required min verbal cues to locate all items, CGA throughout task. Pt returned to room, SBA using FWW, transferring to recliner. Post tx, pt in recliner, call light in reach and all needs met. Education OT Patient Education: Correct positioning, Energy conservation, Exercise p rogram, Modified ADL techniques, Progress toward Goal/Update tx plan, Purpose of tx/functional activities, Rehab process, Safety issues, Transfer techniques, Use of adapted equipment Teaching Recipient: Patient Teaching Methods: Discussion Response to Teaching: Verbalize Understanding OT Short Term Goals Short Term Goals Time Frame: Jul 18, 2021 Oral hygiene: 5 Toileting hygiene: 5 Shower/bathe self: 5 Upper body dressin Lower body dressin Putting on/taking off footwear: 5 OT Delivery Supervisor Goals Halfway Goals Time Frame: Jul 27, 2021 Eating (QC): 6 Oral Hygiene (QC): 6 Toileting Hygiene (QC): 6 Shower/Bathe Self (QC): 6 Upper Body Dressing (QC): 6 Lower Body Dressing (QC): 6 On/Off Footwear (QC): 6 Additional Goals: 1-Demonstrate ADL Tasks, 2-Verbalize Understanding, 3- ImproveStrength/Sharad 1=Demonstrate adherence to instructed precautions during ADL tasks. 2=Patient will verbalize/demonstrate understanding of assistive de vices/modifications for ADL. 3=Patient will improve strength/tolerance for activity to enable patient to perform ADL's. OT Education/Plan Problem List/Assessment Assessment: Decreased Activ Tolerance, Decreased UE Strength, Impaired Funct Balance, Impaired I ADL's, Impaired Self-Care Skills, Restricted Funct UE ROM Discharge Recommendations Plan/Recommendations: Continue POC Treatment Plan/Plan of Care Patient would benefit from OT for education, treatment and training to promote independence in ADL's, mobility, safety and/or upper extremity function for ADL's. Plan of Care: ADL Retraining, Functional Mobility, Group Exercise/Act as Ind, UE Funct Exercise/Act Treatment Duration: Jul 27, 2021 Frequency: At least 5 of 7 days/Wk (IRF) Estimated Hrs Per Day: 1.5 hours per day Rehab Potential: Good Time/GCodes Start Time: 08:00 Stop Time: 09:15 Total Time Billed (hr/min): 75 Billed Treatment Time 1, ADL 4 (60'), FA (15') RYAN DUNNE OT Jul 10, 2021 09:13
[2021-07-10] MEDS: IRON SUCROSE 200 MG/10 ML (VENOFER) VIAL IV SCH (09:16)
--- NOTE | 2021-07-10 12:00 | Physical Therapy Daily Note ---
PT Daily Note-Current Subjective Pt laying Supine in bed visiting w/SP upon arrival. Pt agrees to PT. Pain Numeric Pain Scale: 3 Location: Right Location Body Site: Knee Pain Description: Ache Mental Status Patient Orientation: Person, Place, Time, Situation Transfers SCALE: Activities may be completed with or without assistive devices. 1-Vgoisycwuf-higbksp completes the activity by him/herself with no assistance from a helper. 5-Set-up or Clean-up Assistance-helper sets up or cleans up; patient completes activity. [place] assists only prior to or following the activity. 4-Supervision or Touching Assistance-helper provides verbal cues and/or touching/steadying and/or contact guard assistance as patient completes activity. Assistance may be provided throughout the activity or intermittently. 3-Partial/Moderate Assistance-helper does LESS THAN HALF the effort. [place] lifts, holds or supports trunk or limbs, but provides less than half the effort. 2-Substantial/Maximal Assistance-helper does MORE THAN HALF the effort. [place] lifts or holds trunk or limbs and provides more than half the effort. 7-Bttyqcumk-axlghz does ALL the effort. Patient does none of the effort to complete the activity. Or, the assistance of 2 or more helpers is required for the patient to complete the activity. If activity was not attempted, code reason: 7-Patient Refused. 9-Not Applicable-not attempted and the patient did not perform the activity before the current illness, exacerbation or injury. 10-Not Attempted due to Environmental Limitations-(lack of equipment, weather restraints, etc.). 88-Not Attempted due to Medical Conditions or Safety Concerns. Sit to Lying (QC): 5 Lying to Sitting/Side of Bed(Q: 5 Sit to Stand (QC): 4 Toilet Transfer (QC): 5 Weight Bearing Right Lower Extremity: Right Weight Bearing/Tolerated Left Lower Extremity: Left Full Weight Bearing Gait Training Does the Patient Walk?: Yes Distance: 125' x2 Walk 10 feet (QC): 5 Walk 50 ft with 2 Turns(QC): 5 Walk 150 ft (QC): 5 Gait Persons Needed: 1 Gait Assistive Device: FWW Stair Training Stair Training: Handrails/: 2 handrails #of Steps: 4 1 Step (curb) (QC): 4 4 Steps (QC): 4 Stairs: Pattern: Step to Exercises Supine Ex: Ankle pumps, Quad Set, Glut sets, Heel Slides, Short Arc Quads, Straight leg raise, Hip abd/add Supine Reps: 10 NuStep Minutes: 15 NuStep Workload: 5 Treatments TF to standing and amb. in hallway. Pt uses NuStep for 15m at WL 5 then completes set of 4 steps before needing to return to room for use of BR. Pt is able to clean [place] area then returns to Supine in bed where after a short rest, pt completes Supine Ex. Pt resting at end of tx with all needs met, call light in hand. Assessment Current Status: Good Progress Pt is improving with independence of transfers and ambulation. PT X Ray Physician Goals X Ray Physician Goals PT X Ray Physician Goals Time Frame: Jul 28, 2021 Roll Left & Right (QC): 6 Sit to Lying (QC): 6 Lying-Sitting on Side/Bed(QC): 6 Sit to Stand (QC): 5 Chair/Wfs-dt-Xinbd Xfer(QC): 5 Toilet Transfer (QC): 5 Car Transfer (QC): 5 Does the Patient Walk: Yes Walk 10 feet (QC): 5 Walk 50ft with 2 Turns (QC): 5 Walk 150 ft (QC): 5 Walking 10ft on Uneven Surface: 5 1 Step (curb) (QC): 5 4 Steps (QC): 5 12 Steps (QC): 5 Picking up an Object (QC): 4 Does the Pt use WC or Scooter?: No Wheel 50 feet with 2 turns (QC: 9 Type: N/A Wheel 150 feet: 9 Type: N/A PT Plan Problem List Problem List: Activity Tolerance Treatment/Plan Treatment Plan: Continue Plan of Care Treatment Plan: Bed Mobility, Concurrent Therapy, Education, Functional A ctivity Sharad, Functional Strength, Group Therapy, Gait, Safety, Therapeutic Exercise, Transfers Treatment Duration: Jul 28, 2021 Frequency: At least 5 of 7 days/Wk (IRF) Estimated Hrs Per Day: 1.5 hours per day Patient and/or Family Agrees t: Yes Safety Risks/Education Patient Education: Steps, Correct Positioning Teaching Recipient: Patient Teaching Methods: Discussion Response to Teaching: Verbalize Understanding Time/GCodes Time In: 1045 Time Out: 1145 Total Billed Treatment Time: 60 Total Billed Treatment 1, GT (20m), FA (10m) & EX x2 (30m) GERARDO MOORE PTA Jul 10, 2021 12:00
--- NOTE | 2021-07-10 13:26 | Occupational Ther Daily Note ---
OT Current Status-Daily Note Subjective Pt in bed upon OT arrival, requests to go to bathroom. Mental Status/Objective Patient Orientation: Person, Place, Situation ADL-Treatment Therapy Code Descriptions/Definitions Functional [place] Measure: 0=Not Assessed/NA 4=Minimal Assistance 1=Total Assistance 5=Supervision or Setup 2=Maximal Assistance 6=Modified [place] 3=Moderate Assistance 7=Complete IndependenceSCALE: Activities may be completed with or without assistive devices. 2-Yqtzafbkgk-plezjdq completes the activity by him/herself with no assistance from a helper. 5-Set-up or Clean-up Assistance-helper sets up or cleans up; patient completes activity. [place] assists only prior to or following the activity. 4-Supervision or Touching Assistance-helper provides verbal cues and/or touching/steadying and/or contact guard assistance as patient completes activity. Assistance may be provided throughout the activity or intermittently. 3-Partial/Moderate Assistance-helper does LESS THAN HALF the effort. [place] lifts, holds or supports trunk or limbs, but provides less than half the effort. 2-Substantial/Maximal Assistance-helper does MORE THAN HALF the effort. [place] lifts or holds trunk or limbs and provides more than half the effort. 1-Ecwskvdbt-mejmdf does ALL the effort. Patient does none of the effort to complete the activity. Or, the assistance of 2 or more helpers is required for the patient to complete the activity. If activity was not attempted, code reason: 7-Patient Refused. 9-Not Applicable-not attempted and the patient did not perform the activity befo re the current illness, exacerbation or injury. 10-Not Attempted due to Environmental Limitations-(lack of equipment, weather re straints, etc.). 88-Not Attempted due to Medical Conditions or Safety Concerns. Toileting Hygiene (QC): 4 (SBA) Toilet Transfer (QC): 4 (SBA) Other Treatment Pt in bed, transferred supine to sit EOB, SBA. Pt used FWW to perform functional mobility into bathroom, SBA with mobility and sit to/from stand. Pt completed t oileting using BSC over toilet, then stood at sink to wash hands, SBA. Pt returned to bed, transferring supine, SBA. Post tx, pt in bed, call light in reach and all needs met. Education OT Patient Education: Correct positioning, Energy conservation, Modified ADL techniques, Progress toward Goal/Update tx plan, Purpose of tx/functional activities, Rehab process Teaching Recipient: Patient Teaching Methods: Discussion Response to Teaching: Verbalize Understanding OT Short Term Goals Short Term Goals Time Frame: Jul 18, 2021 Oral hygiene: 5 Toileting hygiene: 5 Shower/bathe self: 5 Upper body dressin Lower body dressin Putting on/taking off footwear: 5 OT [facility] Goals Manager Technical Services Goals Time Frame: Jul 27, 2021 Eating (QC): 6 Oral Hygiene (QC): 6 Toileting Hygiene (QC): 6 Shower/Bathe Self (QC): 6 Upper Body Dressing (QC): 6 Lower Body Dressing (QC): 6 On/Off Footwear (QC): 6 Additional Goals: 1-Demonstrate ADL Tasks, 2-Verbalize Understanding, 3- ImproveStrength/Sharad 1=Demonstrate adherence to instructed precautions during ADL tasks. 2=Patient will verbalize/demonstrate understanding of assistive devices/modifications for ADL. 3=Patient will improve strength/tolerance for activity to enable patient to perform ADL's. OT Education/Plan Problem List/Assessment Assessment: Decreased Activ Tolerance, Decreased UE Strength, Impaired Funct Balance, Impaired I ADL's, Impaired Self-Care Skills Discharge Recommendations Plan/Recommendations: Continue POC Treatment Plan/Plan of Care Patient would benefit from OT for education, treatment and training to promote independence in ADL's, mobility, safety and/or upper extremity function for ADL's. Plan of Care: ADL Retraining, Functional Mobility, Group Exercise/Act as Ind, UE Funct Exercise/Act Treatment Duration: Jul 27, 2021 Frequency: At least 5 of 7 days/Wk (IRF) Estimated Hrs Per Day: 1.5 hours per day Rehab Potential: Good Time/GCodes Start Time: 13:10 Stop Time: 13:25 Total Time Billed (hr/min): 15 Billed Treatment Time 1, ADL RYAN DUNNE OT Jul 10, 2021 13:26
--- NOTE | 2021-07-10 14:20 | Physical Therapy Daily Note ---
PT Daily Note-Current Subjective Pt laying Supine in bed upon arrival. Pt agrees to PT. Pt reports wanting to d/c Friday. BOOK RETAILER advised may to to Dr Bowie about Iron pt will receive and for how long. Mental Status Patient Orientation: Person, Place, Time, Situation Transfers SCALE: Activities may be completed with or without assistive devices. 4-Ngfomwlmqz-fdmwbxi completes the activity by him/herself with no assistance from a helper. 5-Set-up or Clean-up Assistance-helper sets up or cleans up; patient completes activity. [place] assists only prior to or following the activity. 4-Supervision or Touching Assistance-helper provides verbal cues and/or shanna jorge/steadying and/or contact guard assistance as patient completes activity. Assistance may be provided throughout the activity or intermittently. 3-Partial/Moderate Assistance-helper does LESS THAN HALF the effort. [place] lifts, holds or supports trunk or limbs, but provides less than half the effort. 2-Substantial/Maximal Assistance-helper does MORE THAN HALF the effort. [place] lifts or holds trunk or limbs and provides more than half the effort. 1-Pucrbutap-pwzytr does ALL the effort. Patient does none of the effort to complete the activity. Or, the assistance of 2 or more helpers is required for the patient to complete the activity. If activity was not attempted, code reason: 7-Patient Refused. 9-Not Applicable-not attempted and the patient did not perform the activity before the current illness, exacerbation or injury. 10-Not Attempted due to Environmental Limitations-(lack of equipment, weather restraints, etc.). 88-Not Attempted due to Medical Conditions or Safety Concerns. Sit to Lying (QC): 5 Lying to Sitting/Side of Bed(Q: 6 Sit to Stand (QC): 5 Toilet Transfer (QC): 5 Weight Bearing Right Lower Extremity: Right Weight Bearing/Tolerated Left Lower Extremity: Left Full Weight Bearing Gait Training Does the Patient Walk?: Yes Distance: 125' x3 Walk 10 feet (QC): 5 Walk 50 ft with 2 Turns(QC): 5 Walk 150 ft (QC): 5 Gait Persons Needed: 1 Gait Assistive Device: FWW Treatments TF to standing and amb. in hallway. Pt takes short RB x2 during amb. BOOK RETAILER adjusts FWW higher to assist with taller standing and better WB through R knee. Pt returns to room to use BR then returns to bed to rest. Pt has all needs met, call light in hand. Assessment Current Status: Good Progress Pt's activity tolerance is improving as pt's pain is decreasing. PT Care Home Goals Honey Blender Goals PT Honey Blender Goals Time Frame: Jul 28, 2021 Roll Left & Right (QC): 6 Sit to Lying (QC): 6 Lying-Sitting on Side/Bed(QC): 6 Sit to Stand (QC): 5 Chair/Wdx-bt-Xmcwq Xfer(QC): 5 Toilet Transfer (QC): 5 Car Transfer (QC): 5 Does the Patient Walk: Yes Walk 10 feet (QC): 5 Walk 50ft with 2 Turns (QC): 5 Walk 150 ft (QC): 5 Walking 10ft on Uneven Surface: 5 1 Step (curb) (QC): 5 4 Steps (QC): 5 12 Steps (QC): 5 Picking up an Object (QC): 4 Does the Pt use WC or Scooter?: No Wheel 50 feet with 2 turns (QC: 9 Type: N/A Wheel 150 feet: 9 Type: N/A PT Plan Treatment/Plan Treatment Plan: Continue Plan of Care Treatment Plan: Bed Mobility, Concurrent Therapy, Education, Functional Activity Sharad, Functional Strength, Group Therapy, Gait, Safety, Therapeutic Exercise, Transfers Treatment Duration: Jul 28, 2021 Frequency: At least 5 of 7 days/Wk (IRF) Estimated Hrs Per Day: 1.5 hours per day Patient and/or Family Agrees t: Yes Safety Risks/Education Patient Education: Gait Training, Correct Positioning Teaching Recipient: Patient Teaching Methods: Discussion Response to Teaching: Verbalize Understanding Time/GCodes Time In: 1345 Time Out: 1415 Total Billed Treatment Time: 30 Total Billed Treatment 1, FA (10m) & GT (20m) GERARDO MOORE BOOK RETAILER Jul 10, 2021 14:20
[2021-07-10] MEDS: LOSARTAN 50 MG (COZAAR) TAB PO SCH (16:20)
[2021-07-10] MEDS: metFORMIN XR 500 MG (GLUCOPHAGE XR) TAB PO SCH (16:20)
[2021-07-10 16:21] VITALS: BP 127/60
[2021-07-10 20:04] VITALS: BP 102/51
[2021-07-10] MEDS: MIRTAZAPINE 15 MG (REMERON) TAB PO SCH (20:27)
[2021-07-10] MEDS: MELATONIN 3 MG TABLET PO PRN (20:27)
[2021-07-10] MEDS: ALPRAZolam 0.25 MG (XANAX) TAB PO PRN (20:27)
[2021-07-10] MEDS: FAMOTIDINE 20 MG (PEPCID) TABLET PO SCH (20:27)
[2021-07-10] MEDS: CATHETER FLUSH 10 ML SYR IV SCH (20:29)
[2021-07-11] MEDS: CATHETER FLUSH 10 ML SYR IV SCH ×3 (06:01→19:37)
[2021-07-11] MEDS: MULTIVIT W/MINERALS TAB (THERAGRAN M) PO SCH (06:01)
--- NOTE | 2021-07-11 07:02 | PM&R Progress Note ---
Subjective HPI/CC On Admission Date Seen by Provider: Jul 11, 2021 Time Seen by Provider: 11:45 Subjective/Events-last exam 07/11/21: Pt doing really well DC planned Checked meds and labs Updated her on everything with her iron supplement and she is good for DC on Friday07/10/2021: Pt doing well Hgb 8.9 Starting iron infusions today Checked meds and labs DC on Friday07/09/2021: Patient doing well Transfusion uneventful IV iron infusions will be started on Friday Check meds and labs Overall doing very well 07/08/2021: Patient doing really well Cognition issues are evident in the afternoon and evening Oxycodone 10 mg required for pain control Xanax also helps Moving around pretty well 07/07/2021: Patient doing really well Getting in and out of bed very well CPM machine maintained Bowels are moving Home meds were restarted Review of Systems General: Fatigue, Malaise Musculoskeletal: leg pain Objective Exam Vital Signs Vital Signs Date Time Temp Pulse Resp B/P (MAP) Pulse Ox O2 Delivery O2 Flow Rate FiO2 07/11/21 20:09 Room Air 07/11/21 20:00 37.4 94 18 127/60 (82) 93 07/09/21 09:32 90.00 Capillary Refill : General Appearance: No Apparent Distress, WD/WN, Chronically ill HEENT: PERRL/EOMI, Normal ENT Inspection, Pharynx Normal Neck: Full Range of Motion, Normal Inspection, Non Tender, Supple, Carotid Bruit Respiratory: Chest Non Tender, Lungs Clear, Normal Breath Sounds, No Accessory Muscle Use, No Respiratory Distress Cardiovascular: Regular Rate, Rhythm, No Edema, No Gallop, No JVD, No Murmur, Normal Peripheral Pulses Gastrointestinal: Normal Bowel Sounds, No Organomegaly, No Pulsatile Mass, Non Tender, Soft Back: Normal Inspection, No CVA Tenderness, No Vertebral Tenderness Extremity: Normal Capillary Refill, Normal Inspection, Normal Range of Motion (Except right leg), Non Tender, No Calf Tenderness, No Pedal Edema Neurologic/Psychiatric: Alert, Oriented x3, No Motor/Sensory Deficits, Normal Mood/Affect, pharmacy technician assistant II-XII Norm as Tested, Abnormal Gait, Disoriented (Poor recall), Motor Weakness (Generalized 4/5 all extremities) Skin: Normal Color, Warm/Dry Lymphatic: No Adenopathy Results/Procedures Lab Patient resulted labs reviewed. FIM Transfers Therapy Code Descriptions/Definitions Functional [place] Measure: 0=Not Assessed/NA 4=Minimal Assistance 1=Total Assistance 5=Supervision or Setup 2=Maximal Assistance 6=Modified [place] 3=Moderate Assistance 7=Complete IndependenceSCALE: Activities may be completed with or without assistive devices. 4-Vkkjearalr-yngusdb completes the activity by him/herself with no assistance from a helper. 5-Set-up or Clean-up Assistance-helper sets up or cleans up; patient completes activity. [place] assists only prior to or following the activity. 4-Supervision or Touching Assistance-helper provides verbal cues and/or touching/steadying and/or contact guard assistance as patient completes activity. Assistance may be provided throughout the activity or intermittently. 3-Partial/Moderate Assistance-helper does LESS THAN HALF the effort. [place] lifts, holds or supports trunk or limbs, but provides less than half the effort. 2-Substantial/Maximal Assistance-helper does MORE THAN HALF the effort. [place] lifts or holds trunk or limbs and provides more than half the effort. 6-Shuzgkzcm-qldkwe does ALL the effort. Patient does none of the effort to complete the activity. Or, the assistance of 2 or more helpers is required for the patient to complete the activity. If activity was not attempted, code reason: 7-Patient Refused. 9-Not Applicable-not attempted and the patient did not perform the activity before the current illness, exacerbation or injury. 10-Not Attempted due to Environmental Limitations-(lack of equipment, weather restraints, etc.). 88-Not Attempted due to Medical Conditions or Safety Concerns. Roll Left to Right (QC): 6 Sit to Lying (QC): 5 Sit to Stand (QC): 5 Chair/Cmw-vu-Cwgxg Xfer(QC): 4 Car Transfer (QC): 3 Gait Training Does the Patient Walk?: Yes Distance: 125' x3 Walk 10 feet (QC): 5 Walk 50 ft with 2 Turns(QC): 5 Walk 150 ft (QC): 5 Walking 10ft/uneven surface-QC: 3 Gait Persons Needed: 1 Gait Assistive Device: FWW Wheelchair Training Does the Pt Use a Wheelchair?: No Wheel 50 ft with 2 turns (QC): 9 Wheel 150 ft (QC): 9 Stair Training Stair Training: Handrails/: 2 handrails #of Steps: 4 1 Step (curb) (QC): 4 4 Steps (QC): 4 12 Steps (QC): 88 Stairs: Pattern: Step to Balance Picking up an Object (QC): 88 ADL-Treatment Eating (QC): 6 (IND with lunch) Oral Hygiene (QC): 4 (CGA standing at sink with verbal cues for sequencing and safety.) Bathing Location: L Arm, R Arm, L Upper Leg, R Upper Leg, L Lower Leg (including foot), R Lower Leg (including foot), Chest, Abdomen, Buttocks, Perineal Area Shower/Bathe Self (QC): 4 (CGA in stand to wash buttocks/periarea. Min cues for sequencing. Pt utilized LH sponge for LEs.) Upper Body Dressing (QC): 5 (set up, pt able to don/doff bra and cloth covered helmet puller shirt.) Lower Body Dressing (QC): 4 (CGA in stand for pant hike, min cues for sequencing of task. Pt educated on ios programmer for doffing, did not utilize to don. ) On/Off Footwear (QC): 3 (Assist to don tamiko hose, pt able to doff gripper socks using ios programmer. donned without AE.) Toileting Hygiene (QC): 4 (SBA) Toilet Transfer (QC): 4 (SBA) Assessment/Plan Assessment and Plan Assess & Plan/Chief Complaint Assessment: Status post right knee replacement Generalized weakness and debility Fall risk History of lymphoma Paroxysmal atrial fibrillation History of recurrent GI bleeds Postop constipation Diabetes Hypertension Mild cognitive decline Severe iron deficiency requiring transfusion and iron infusions Plan: Inpatient rehab protocol Monitor cognition Pain control Bowel regimen 07/07/2021: Pain control Bowel regimen 07/08/2021: Supportive care Oxycodone Bowel regimen 07/09/2021: Transfuse 1 unit Supportive care Iron infusions on Friday07/10/2021: Improved hemoglobin Doing very well today 07/11/21: Iron infusions Pain control DC Friday (1) Status post right knee replacement (2) Diffuse large B-cell lymphoma Status: Acute (3) Non-insulin dependent type 2 diabetes mellitus Status: Chronic (4) HLD (hyperlipidemia) Status: Chronic (5) Hypertension Status: Chronic (6) PAF (paroxysmal atrial fibrillation) Status: Chronic (7) Recurrent gastrointestinal hemorrhage Status: Chronic JEANNE HENSON DO Jul 11, 2021 07:02
[2021-07-11 08:00] VITALS: BP 130/58
--- NOTE | 2021-07-11 08:28 | Occupational Ther Daily Note ---
OT Current Status-Daily Note Subjective Pt up in chair, stating she would like to return to bed. Agreeable to OT tx at this time. Mental Status/Objective Patient Orientation: Person, Confused, Place, Situation ADL-Treatment Therapy Code Descriptions/Definitions Functional [place] Measure: 0=Not Assessed/NA 4=Minimal Assistance 1=Total Assistance 5=Supervision or Setup 2=Maximal Assistance 6=Modified [place] 3=Moderate Assistance 7=Complete IndependenceSCALE: Activities may be completed with or without assistive devices. 8-Ciqljrikwv-ruinxei completes the activity by him/herself with no assistance from a helper. 5-Set-up or Clean-up Assistance-helper sets up or cleans up; patient completes activity. [place] assists only prior to or following the activity. 4-Supervision or Touching Assistance-helper provides verbal cues and/or touching/steadying and/or contact guard assistance as patient completes activity. Assistance may be provided throughout the activity or intermittently. 3-Partial/Moderate Assistance-helper does LESS THAN HALF the effort. [place] lifts, holds or supports trunk or limbs, but provides less than half the effort. 2-Substantial/Maximal Assistance-helper does MORE THAN HALF the effort. [place] lifts or holds trunk or limbs and provides more than half the effort. 6-Krqrjytti-wznwyz does ALL the effort. Patient does none of the effort to complete the activity. Or, the assistance of 2 or more helpers is required for the patient to complete the activity. If activity was not attempted, code reason: 7-Patient Refused. 9-Not Applicable-not attempted and the patient did not perform the activity before the current illness, exacerbation or injury. 10-Not Attempted due to Environmental Limitations-(lack of equipment, weather restraints, etc.). 88-Not Attempted due to Medical Conditions or Safety Concerns. Toileting Hygiene (QC): 6 Toilet Transfer (QC): 6 Other Treatment Pt up in recliner, agreeable to OT tx. Pt used FWW to perform functional mobility into bathroom, and onto BSC over toilet, IND. Pt completed toileting, then stood at sink to wash hands, IND. Pt used FWW to go to therapy gym, SBA. OT Tx with focus on increasing BUE strength and activity tolerance, and fine motor strength. Pt completed arm bike, 15 Watt resistance [id number], with 2 rest breaks. Pt then placed 1" pegs into foam pegboard, alternating hands, 1lb wrist weights BUEs. Pt took a rest break, then removed pegs, alternating hands. Pt removed beads from moderate resistance theraputty, locating 18/19 beads, requiring 1 verbal cue to locate last bead. Pt used FWW to return to her room, SBA, requests to complete toileting. Pt completed toileting (IND), washed hands at sink, then transferred to bed. Sit to supine transfer SBA. Post tx, pt in bed, call light in reach and all needs met. Education OT Patient Education: Correct positioning, Energy conservation, Exercise prog vishnu, Modified ADL techniques, Progress toward Goal/Update tx plan, Purpose of tx/functional activities, Rehab process, Safety issues, Transfer techniques Teaching Recipient: Patient Teaching Methods: Discussion Response to Teaching: Verbalize Understanding OT Short Term Goals Short Term Goals Time Frame: Jul 18, 2021 Oral hygiene: 5 Toileting hygiene: 5 Shower/bathe self: 5 Upper body dressin Lower body dressin Putting on/taking off footwear: 5 OT Halfway Goals Halfway Goals Time Frame: Jul 27, 2021 Eating (QC): 6 Oral Hygiene (QC): 6 Toileting Hygiene (QC): 6 Shower/Bathe Self (QC): 6 Upper Body Dressing (QC): 6 Lower Body Dressing (QC): 6 On/Off Footwear (QC): 6 Additional Goals: 1-Demonstrate ADL Tasks, 2-Verbalize Understanding, 3- ImproveStrength/Sharad 1=Demonstrate adherence to instructed precautions during ADL tasks. 2=Patient will verbalize/demonstrate understanding of assistive devices/modifications for ADL. 3=Patient will improve strength/tolerance for activity to enable patient to perform ADL's. OT Education/Plan Problem List/Assessment Assessment: Decreased Activ Tolerance, Decreased UE Strength, Impaired Funct Balance, Impaired I ADL's, Impaired Self-Care Skills Discharge Recommendations Plan/Recommendations: Continue POC Treatment Plan/Plan of Care Patient would benefit from OT for education, treatment and training to promote independence in ADL's, mobility, safety and/or upper extremity function for ADL's. Plan of Care: ADL Retraining, Functional Mobility, Group Exercise/Act as Ind, UE Funct Exercise/Act Treatment Duration: Jul 27, 2021 Frequency: At least 5 of 7 days/Wk (IRF) Estimated Hrs Per Day: 1.5 hours per day Rehab Potential: Good Time/GCodes Start Time: 08:00 Stop Time: 09:15 Total Time Billed (hr/min): 75 Billed Treatment Time 1, ADL (15'), EX (15'), FA 3 (45') RYAN DUNNE OT Jul 11, 2021 08:28
[2021-07-11] MEDS: ASPIRIN E.C. 81 MG (ECOTRIN) TAB PO SCH (09:53)
[2021-07-11] MEDS: VITAMIN D3 25 MCG (1,000 UNITS) TABLET PO SCH (09:53)
[2021-07-11] MEDS: SENNA W/DOCUSATE (SENOKOT S) TABLET PO SCH ×2 (09:53→19:36)
[2021-07-11] MEDS: DOCUSATE SODIUM 100 MG (COLACE) CAP PO SCH ×2 (09:53→19:35)
[2021-07-11] MEDS: PANTOPRAZOLE 40 MG (PROTONIX) TAB PO SCH (09:53)
[2021-07-11] MEDS: FLECAINIDE 100 MG (TAMBOCOR) TAB PO SCH ×2 (09:53→19:35)
[2021-07-11] MEDS: ESTROGENS CONJUGATED 0.45 MG (PREMARIN) TAB PO SCH (09:53)
[2021-07-11] MEDS: LACTOBACILLUS ACIDOPHILUS (PROBIOTIC) CAPSULE PO SCH (09:53)
[2021-07-11] MEDS: polyethylene glycoL POWDER 17 GM (MIRALAX) PACK PO SCH ×2 (10:00→19:36)
--- NOTE | 2021-07-11 11:41 | Progress Note ---
Standard Progress Note Progress Notes/Assess & Plan Date Seen by a Provider: Jul 11, 2021 Time Seen by a Provider: 11:41 Progress/Assessment & Plan no complaints ambulating in common area gait improved s/p RTKA continue PT/OT GEGE ARCE MD Jul 11, 2021 11:41
--- NOTE | 2021-07-11 12:02 | Physical Therapy Daily Note ---
PT Daily Note-Current Subjective Pt. states she is feeling much better and hopes to go home Friday. States she is stronger and pain level is negligible Pain Location: No Pain Reported Mental Status Patient Orientation: Normal For Age Transfers SCALE: Activities may be completed with or without assistive devices. 0-Tleeqonorb-wqaieul completes the activity by him/herself with no assistance from a helper. 5-Set-up or Clean-up Assistance-helper sets up or cleans up; patient completes activity. [place] assists only prior to or following the activity. 4-Supervision or Touching Assistance-helper provides verbal cues and/or touching/steadying and/or contact guard assistance as patient completes activity. Assistance may be provided throughout the activity or intermittently. 3-Partial/Moderate Assistance-helper does LESS THAN HALF the effort. [place] lifts, holds or supports trunk or limbs, but provides less than half the effort. 2-Substantial/Maximal Assistance-helper does MORE THAN HALF the effort. [place] lifts or holds trunk or limbs and provides more than half the effort. 8-Evduquboz-xqwawl does ALL the effort. Patient does none of the effort to complete the activity. Or, the assistance of 2 or more helpers is required for the patient to complete the activity. If activity was not attempted, code reason: 7-Patient Refused. 9-Not Applicable-not attempted and the patient did not perform the activity before the current illness, exacerbation or injury. 10-Not Attempted due to Environmental Limitations-(lack of equipment, weather restraints, etc.). 88-Not Attempted due to Medical Conditions or Safety Concerns. Roll Left & Right (QC): 6 Sit to Lying (QC): 6 Lying to Sitting/Side of Bed(Q: 6 Sit to Stand (QC): 6 Chair/Dmk-gi-Kxall Xfer(QC): 6 Toilet Transfer (QC): 6 Car Transfer (QC): 6 Weight Bearing Right Lower Extremity: Right Weight Bearing/Tolerated Left Lower Extremity: Left Full Weight Bearing Gait Training Does the Patient Walk?: Yes Walk 10 feet (QC): 6 Walk 50 ft with 2 Turns(QC): 6 Walk 150 ft (QC): 6 Gait Persons Needed: 1 Gait Assistive Device: FWW noted flexion at right knee at approx 12 degrees . Emphasis on heel strike and knee extension to normalize gait pattern Stair Training Stair Training: Handrails/: 2 handrails #of Steps: 4 4 Steps (QC): 5 Stairs: Pattern: Step to Exercises Supine Ex: Ankle pumps, Quad Set, Rolling, Glut sets, Heel Slides, Short Arc Quads, Scooting, Straight leg raise, Hip abd/add Supine Reps: 15 Seated Therapy Exercises: Ankle pumps, Sit to stand, Long arc quads, Hip flexion Seated Reps: 20 NuStep Minutes: 10 NuStep Workload: 2 Treatments toileted x 2 during Rx managing pants and clean up indep Assessment Current Status: Good Progress PT Mcc Goals Master Of Ceremonies Goals PT Mcc Goals Time Frame: Jul 28, 2021 Roll Left & Right (QC): 6 Sit to Lying (QC): 6 Lying-Sitting on Side/Bed(QC): 6 Sit to Stand (QC): 5 Chair/Smh-bm-Udgez Xfer(QC): 5 Toilet Transfer (QC): 5 Car Transfer (QC): 5 Does the Patient Walk: Yes Walk 10 feet (QC): 5 Walk 50ft with 2 Turns (QC): 5 Walk 150 ft (QC): 5 Walking 10ft on Uneven Surface: 5 1 Step (curb) (QC): 5 4 Steps (QC): 5 12 Steps (QC): 5 Picking up an Object (QC): 4 Does the Pt use WC or Scooter?: No Wheel 50 feet with 2 turns (QC: 9 Type: N/A Wheel 150 feet: 9 Type: N/A PT Plan Treatment/Plan Treatment Plan: Continue Plan of Care Treatment Plan: Bed Mobility, Concurrent Therapy, Education, Functional Activity Sharad, Functional Strength, Group Therapy, Gait, Safety, Therapeutic Exercise, Transfers Treatment Duration: Jul 28, 2021 Frequency: At least 5 of 7 days/Wk (IRF) Estimated Hrs Per Day: 1.5 hours per day Patient and/or Family Agrees t: Yes Safety Risks/Education Patient Education: Gait Training, Transfer Techniques, Steps, Correct Positioning, Disease Process, Safety Issues Teaching Recipient: Patient Teaching Methods: Demonstration, Discussion Response to Teaching: Verbalize Understanding, Return Demonstration, Reinforcement Needed Time/GCodes Time In: 1045 Time Out: 1200 Total Billed Treatment Time: 75 Total Billed Treatment 1,FA20m,GT25m,EX30m ZENIA HAQUE PATROLLER Jul 11, 2021 12:02
--- NOTE | 2021-07-11 12:14 | Speech Therapy Daily Note ---
Speech Daily Progress Note Subjective Date Seen by Provider: Jul 11, 2021 Time Seen by Provider: 00:30 Patient was resting in bed. She was much more alert and oriented today. Objective Patient completed a series of safety questions related to her home environment with 95% given minimal cues. Assessment Assessment Current Status: Good Progress Treatment Plan Continue Plan of Care Speech Short Term Goals Short Term Goals Short Term Goals 1) Patient will complete memory tasks related to her daily needs at 80% or greater with minimal cues. 2) Patient will complete safety awareness tasks related to her daily needs at 80% or greater with minimal cues. 3) Patient will complete problem solving tasks related to her daily needs at 80% or greater with minimal cues. Speech Hardware Technician Goals Fpc Goals Patient will improve functional cognitive abilities in order to increase safety and independence. Speech-Plan Patient/Family Goals Patient/Family Goals: Patient is scheduled to return to her home where she lives with her on Friday the . She will receive home health services including therapy. Treatment Plan Speech Therapy Treatment Plan: Continue Plan of Care Treatment Duration: Jul 20, 2021 Frequency: 4 times per week (Patient will receive skilled ST 4-5x per week) Estimated Hrs Per Day: .25 hour per day Rehab Potential: Good Barriers to Learning: Patient initially demonstrated mild cognitive deficits, however these appear to be resolving. Pt/Family Agrees to Plan: Yes Safety Risks/Education Teaching Recipient: Patient, Significant Other Teaching Methods: Demonstration, Discussion Response to Teaching: Verbalize Understanding, Return Demonstration Education Topics Provided: Continued safety upon her return home. Time Speech Therapy Time In: 10:00 Speech Therapy Time Out: 10:30 Total Billed Time: 30 Billed Treatment Time 1KAMILA BETHANIA ST Jul 11, 2021 12:14
[2021-07-11] MEDS: metFORMIN XR 500 MG (GLUCOPHAGE XR) TAB PO SCH (17:16)
[2021-07-11] MEDS: LOSARTAN 50 MG (COZAAR) TAB PO SCH (17:16)
[2021-07-11] MEDS: FAMOTIDINE 20 MG (PEPCID) TABLET PO SCH (19:36)
[2021-07-11] MEDS: MIRTAZAPINE 15 MG (REMERON) TAB PO SCH (19:36)
[2021-07-11 20:00] VITALS: BP 127/60
[2021-07-11] MEDS: MELATONIN 3 MG TABLET PO PRN (23:23)
[2021-07-12] MEDS: CATHETER FLUSH 10 ML SYR IV SCH ×3 (05:07→20:25)
[2021-07-12] MEDS: MULTIVIT W/MINERALS TAB (THERAGRAN M) PO SCH (05:07)
[2021-07-12] MEDS: VITAMIN D3 25 MCG (1,000 UNITS) TABLET PO SCH (07:37)
[2021-07-12] MEDS: FLECAINIDE 100 MG (TAMBOCOR) TAB PO SCH ×2 (07:39→20:23)
[2021-07-12 07:41] VITALS: BP 133/60
[2021-07-12] MEDS: LACTOBACILLUS ACIDOPHILUS (PROBIOTIC) CAPSULE PO SCH (07:41)
[2021-07-12] MEDS: ASPIRIN E.C. 81 MG (ECOTRIN) TAB PO SCH (07:42)
[2021-07-12] MEDS: ESTROGENS CONJUGATED 0.45 MG (PREMARIN) TAB PO SCH (07:42)
[2021-07-12] MEDS: PANTOPRAZOLE 40 MG (PROTONIX) TAB PO SCH (07:44)
[2021-07-12] MEDS: DOCUSATE SODIUM 100 MG (COLACE) CAP PO SCH ×2 (07:45→20:21)
[2021-07-12] MEDS: SENNA W/DOCUSATE (SENOKOT S) TABLET PO SCH ×2 (07:45→20:24)
[2021-07-12] MEDS: IRON SUCROSE 200 MG/10 ML (VENOFER) VIAL IV SCH (07:46)
--- NOTE | 2021-07-12 07:52 | Physician Query Clarification ---
PQ-Intro New Diagnosis Admission/Discharge Admission Date: Jul 06, 2021 at 10:50 Discharge Date: Dr. Bowie, The medical record reflects the following clinical scenario: History/Risk Factors: S/P Rt TKR Clinical Findings: abnormal gait, motor weakness generalized 4/5 all extremities Treatment: rehab Question: What condition best reflects the above clinical scenario? Please document a response in the Progress Noter or Discharge Summary. 1. osteoarthritis Rt. knee 2. Other, with explanation of the clinical findings. 3. Clinically undetermined, no explanation for the clinical findings. PHYSICIAN RESPONSE What condition reflects above: 1 Please remember a lack of response to the above will prompt a phone page by CDI/Coding staff. In responding to this query, please exercise your independent professional judgment. The purpose of this communication is to more accurately reflect the complexity of your patients condition. The fact that a question is asked does not imply that any particular answer is desired or expected. Thank you for your timely response to this clarification. Requestors name: [facility] Phone #: [phone] HIS PHYSICIAN QUERY FORM IS A PERMANENT PART OF THE MEDICAL RECORD [facility] Jul 12, 2021 07:52 JEANNE BOWIE DO Jul 12, 2021 11:22
--- NOTE | 2021-07-12 08:14 | Speech Therapy Daily Note ---
Speech Daily Progress Note Subjective Date Seen by Provider: Jul 12, 2021 Time Seen by Provider: 00:30 Patient was resting in bed. She states she is ready to go home tomorrow. Her was present. Objective Patient completed a series of q/a related to her safety upon return home at 90% without cues. Assessment Assessment Current Status: Good Progress Treatment Plan Discontinue ST, Goals Met Speech Short Term Goals Short Term Goals Short Term Goals 1) Patient will complete memory tasks related to her daily needs at 80% or greater with minimal cues. 2) Patient will complete safety awareness tasks related to her daily needs at 80% or greater with minimal cues. 3) Patient will complete problem solving tasks related to her daily needs at 80% or greater with minimal cues. Speech Residential Goals Bowling Alley Attendant Goals Patient will improve functional cognitive abilities in order to increase safety and independence. Speech-Plan Patient/Family Goals Patient/Family Goals: Patient is scheduled to discharge to her home tomorrow. She lives with her who will assist her as well as receiving home health services. Treatment Plan Speech Therapy Treatment Plan: Discontinue ST, Goals Met Treatment Duration: Jul 20, 2021 Frequency: 4 times per week (Patient will receive skilled ST 4-5x per week) Estimated Hrs Per Day: .25 hour per day Rehab Potential: Good Barriers to Learning: Mild cognitive deficits which have resolved Pt/Family Agrees to Plan: Yes Safety Risks/Education Teaching Recipient: Patient, Significant Other Teaching Methods: Demonstration, Discussion Response to Teaching: Verbalize Understanding, Return Demonstration Education Topics Provided: Continued safety upon her return home Time Speech Therapy Time In: 09:30 Speech Therapy Time Out: 10:00 Total Billed Time: 30 Billed Treatment Time 1, SLTS No EXPRESSION OF IDEAS/WANTS: 4 UNDERSTANDING VERBAL CONTENT: 4 BRIEF INTERVIEW MENTAL STATUS: YES REPETITION OF 3 WORDS: 3 TEMPORAL ORIENTATION: YEAR: CORRECT, MONTH: CORRECT, DAY: CORRECT RECALL SOCK: YES, COLOR: YES WITH CUE, BED: YES WITH CUE MEMORY/RECALL ABILITY: SEASON, THAT SHE IS IN THE [facility] Jul 12, 2021 08:14
--- NOTE | 2021-07-12 08:57 | Occupational Ther Daily Note ---
OT Current Status-Daily Note Subjective Pt in bed, agreeable to OT tx. Mental Status/Objective Patient Orientation: Person, Place, Situation ADL-Treatment Therapy Code Descriptions/Definitions Functional [place] Measure: 0=Not Assessed/NA 4=Minimal Assistance 1=Total Assistance 5=Supervision or Setup 2=Maximal Assistance 6=Modified [place] 3=Moderate Assistance 7=Complete IndependenceSCALE: Activities may be completed with or without assistive devices. 2-Zazahrxbjv-xjnvzfg completes the activity by him/herself with no assistance from a helper. 5-Set-up or Clean-up Assistance-helper sets up or cleans up; patient completes activity. [place] assists only prior to or following the activity. 4-Supervision or Touching Assistance-helper provides verbal cues and/or touching/steadying and/or contact guard assistance as patient completes activity. Assistance may be provided throughout the activity or intermittently. 3-Partial/Moderate Assistance-helper does LESS THAN HALF the effort. [place] lifts, holds or supports trunk or limbs, but provides less than half the effort. 2-Substantial/Maximal Assistance-helper does MORE THAN HALF the effort. [place] lifts or holds trunk or limbs and provides more than half the effort. 6-Lhdpxuebp-rnldrk does ALL the effort. Patient does none of the effort to complete the activity. Or, the assistance of 2 or more helpers is required for the patient to complete the activity. If activity was not attempted, code reason: 7-Patient Refused. 9-Not Applicable-not attempted and the patient did not perform the activity before the current illness, exacerbation or injury. 10-Not Attempted due to Environmental Limitations-(lack of equipment, weather restraints, etc.). 88-Not Attempted due to Medical Conditions or Safety Concerns. Eating (QC): 6 (Per pt report) Oral Hygiene (QC): 6 (Per pt report) Shower/Bathe Self (QC): 5 (set up assist at SC) Upper Body Dressing (QC): 6 (IND ) Lower Body Dressing (QC): 6 (IND) On/Off Footwear: 3 (Assist with tedhose) Toileting Hygiene (QC): 6 (IND) Toilet Transfer (QC): 6 (IND) Other Treatment Pt laying in bed, transferred supine to sit EOB, IND. Pt performed functional mobility from EOB to bathroom and onto [facility] [place]. Pt completed toileting, then transferred to [place]. Pt completed shower after set up assistance. Transferring to dry chair in order to don clothes. OT assisted with TedHose only. Pt required 1 verbal cue for safety during dressing, attempted to go to sink prior to no skid socks being donned. Pt cued to don pants and gripper socks before performing mobility. Pt then transferred to sink, brushing/fixing her hair independently seated. Pt requests to use the bathroom again, transfers to [facility] [place]. Pt completes toileting, stands at sink for oral care then transfers to bed. Post tx, pt in bed, call light in reach and all needs met. Education OT Patient Education: Correct positioning, Energy conservation, Modified ADL techniques, Progress toward Goal/Update tx plan, Purpose of tx/functional activities, Rehab process, Safety issues, Transfer techniques Teaching Recipient: Patient Teaching Methods: Discussion Response to Teaching: Verbalize Understanding OT Short Term Goals Short Term Goals Time Frame: Jul 18, 2021 Oral hygiene: 5 Toileting hygiene: 5 Shower/bathe self: 5 Upper body dressin Lower body dressin Putting on/taking off footwear: 5 OT Prison Goals Leave Manager Goals Time Frame: Jul 27, 2021 Eating (QC): 6 (met) Oral Hygiene (QC): 6 (met) Toileting Hygiene (QC): 6 (met) Shower/Bathe Self (QC): 6 (not met) Upper Body Dressing (QC): 6 (met) Lower Body Dressing (QC): 6 (met) On/Off Footwear (QC): 6 (not met) Additional Goals: 1-Demonstrate ADL Tasks, 2-Verbalize Understanding, 3- ImproveStrength/Sharad 1=Demonstrate adherence to instructed precautions during ADL tasks. 2=Patient will verbalize/demonstrate understanding of assistive devices/modifications for ADL. 3=Patient will improve strength/tolerance for activity to enable patient to perform ADL's. OT Education/Plan Problem List/Assessment Assessment: Decreased Activ Tolerance, Decreased UE Strength, Impaired I ADL's, Impaired Self-Care Skills Discharge Recommendations Plan/Recommendations: Continue POC Treatment Plan/Plan of Care Patient would benefit from OT for education, treatment and training to promote independence in ADL's, mobility, safety and/or upper extremity function for ADL's. Plan of Care: ADL Retraining, Functional Mobility, Group Exercise/Act as Ind, UE Funct Exercise/Act Treatment Duration: Jul 27, 2021 Frequency: At least 5 of 7 days/Wk (IRF) Estimated Hrs Per Day: 1.5 hours per day Rehab Potential: Good Time/GCodes Start Time: 08:00 Stop Time: 09:00 Total Time Billed (hr/min): 60 Billed Treatment Time 1, ADL 4 RYAN DUNNE OT Jul 12, 2021 08:57
[2021-07-12] MEDS: polyethylene glycoL POWDER 17 GM (MIRALAX) PACK PO SCH ×2 (09:28→20:25)
[2021-07-12] MEDS: ACETAMINOPHEN 325 MG TABLET PO PRN (10:34)
--- NOTE | 2021-07-12 11:19 | PM&R Progress Note ---
Subjective HPI/CC On Admission Date Seen by Provider: Jul 12, 2021 Time Seen by Provider: 11:15 Subjective/Events-last exam 07/12/2021: Patient ready for discharge tomorrow Second dose of iron infusion today Restarting Eliquis We will give 1 more dose of iron tomorrow 07/11/21: Pt doing really well DC planned Checked meds and labs Updated her on everything with her iron supplement and she is good for DC on Friday07/10/2021: Pt doing well Hgb 8.9 Starting iron infusions today Checked meds and labs DC on Friday07/09/2021: Patient doing well Transfusion uneventful IV iron infusions will be started on Friday Check meds and labs Overall doing very well 07/08/2021: Patient doing really well Cognition issues are evident in the afternoon and evening Oxycodone 10 mg required for pain control Xanax also helps Moving around pretty well 07/07/2021: Patient doing really well Getting in and out of bed very well CPM machine maintained Bowels are moving Home meds were restarted Review of Systems General: Fatigue, Malaise Objective Exam Vital Signs Vital Signs Date Time Temp Pulse Resp B/P (MAP) Pulse Ox O2 Delivery O2 Flow Rate FiO2 07/12/21 21:21 36.4 75 16 136/56 (82) 92 07/12/21 20:30 Room Air 07/09/21 09:32 90.00 Capillary Refill : General Appearance: No Apparent Distress, WD/WN, Chronically ill HEENT: PERRL/EOMI, Normal ENT Inspection, Pharynx Normal Neck: Full Range of Motion, Normal Inspection, Non Tender, Supple, Carotid Bruit Respiratory: Chest Non Tender, Lungs Clear, Normal Breath Sounds, No Accessory Muscle Use, No Respiratory Distress Cardiovascular: Regular Rate, Rhythm, No Edema, No Gallop, No JVD, No Murmur, Normal Peripheral Pulses Gastrointestinal: Normal Bowel Sounds, No Organomegaly, No Pulsatile Mass, Non Tender, Soft Back: Normal Inspection, No CVA Tenderness, No Vertebral Tenderness Extremity: Normal Capillary Refill, Normal Inspection, Normal Range of Motion (Except right leg), Non Tender, No Calf Tenderness, No Pedal Edema Neurologic/Psychiatric: Alert, Oriented x3, No Motor/Sensory Deficits, Normal Mood/Affect, milk wagon driver II-XII Norm as Tested, Abnormal Gait, Disoriented (Poor recall), Motor Weakness (Generalized 4/5 all extremities) Skin: Normal Color, Warm/Dry Lymphatic: No Adenopathy Results/Procedures Lab Patient resulted labs reviewed. FIM Transfers Therapy Code Descriptions/Definitions Functional [place] Measure: 0=Not Assessed/NA 4=Minimal Assistance 1=Total Assistance 5=Supervision or Setup 2=Maximal Assistance 6=Modified [place] 3=Moderate Assistance 7=Complete IndependenceSCALE: Activities may be completed with or without assistive devices. 7-Mnvxoqaqyd-owdiyff completes the activity by him/herself with no assistance from a helper. 5-Set-up or Clean-up Assistance-helper sets up or cleans up; patient completes activity. [place] assists only prior to or following the activity. 4-Supervision or Touching Assistance-helper provides verbal cues and/or touching/steadying and/or contact guard assistance as patient completes activity. Assistance may be provided throughout the activity or intermittently. 3-Partial/Moderate Assistance-helper does LESS THAN HALF the effort. [place] lifts, holds or supports trunk or limbs, but provides less than half the effort. 2-Substantial/Maximal Assistance-helper does MORE THAN HALF the effort. [place] lifts or holds trunk or limbs and provides more than half the effort. 1-Astzwwbyb-ykerrg does ALL the effort. Patient does none of the effort to complete the activity. Or, the assistance of 2 or more helpers is required for the patient to complete the activity. If activity was not attempted, code reason: 7-Patient Refused. 9-Not Applicable-not attempted and the patient did not perform the activity before the current illness, exacerbation or injury. 10-Not Attempted due to Environmental Limitations-(lack of equipment, weather restraints, etc.). 88-Not Attempted due to Medical Conditions or Safety Concerns. Roll Left to Right (QC): 6 Sit to Lying (QC): 6 Sit to Stand (QC): 6 Chair/Grg-ik-Dnybz Xfer(QC): 6 Car Transfer (QC): 6 Gait Training Does the Patient Walk?: Yes Distance: 125' x3 Walk 10 feet (QC): 6 Walk 50 ft with 2 Turns(QC): 6 Walk 150 ft (QC): 6 Walking 10ft/uneven surface-QC: 3 Gait Persons Needed: 1 Gait Assistive Device: FWW Wheelchair Training Does the Pt Use a Wheelchair?: No Wheel 50 ft with 2 turns (QC): 9 Wheel 150 ft (QC): 9 Stair Training Stair Training: Handrails/: 2 handrails #of Steps: 4 1 Step (curb) (QC): 4 4 Steps (QC): 5 12 Steps (QC): 88 Stairs: Pattern: Step to Balance Picking up an Object (QC): 88 ADL-Treatment Eating (QC): 6 (Per pt report) Oral Hygiene (QC): 6 (Per pt report) Bathing Location: L Arm, R Arm, L Upper Leg, R Upper Leg, L Lower Leg (including foot), R Lower Leg (including foot), Chest, Abdomen, Buttocks, Perineal Area Shower/Bathe Self (QC): 5 (set up assist at MA) Upper Body Dressing (QC): 6 (IND ) Lower Body Dressing (QC): 6 (IND) On/Off Footwear (QC): 3 (Assist with tedhose) Toileting Hygiene (QC): 6 (IND) Toilet Transfer (QC): 6 (IND) Assessment/Plan Assessment and Plan Assess & Plan/Chief Complaint Assessment: Status post right knee replacement Generalized weakness and debility Fall risk History of lymphoma Paroxysmal atrial fibrillation History of recurrent GI bleeds Postop constipation Diabetes Hypertension Mild cognitive decline Severe iron deficiency requiring transfusion and iron infusions Plan: Inpatient rehab protocol Monitor cognition Pain control Bowel regimen 07/07/2021: Pain control Bowel regimen 07/08/2021: Supportive care Oxycodone Bowel regimen 07/09/2021: Transfuse 1 unit Supportive care Iron infusions on Friday07/10/2021: Improved hemoglobin Doing very well today 07/11/21: Iron infusions Pain control DC Friday07/12/2021: Discharge on Friday Third iron infusion Friday (1) Status post right knee replacement (2) Diffuse large B-cell lymphoma Status: Acute (3) Non-insulin dependent type 2 diabetes mellitus Status: Chronic (4) HLD (hyperlipidemia) Status: Chronic (5) Hypertension Status: Chronic (6) PAF (paroxysmal atrial fibrillation) Status: Chronic (7) Recurrent gastrointestinal hemorrhage Status: Chronic JEANNE HENSON DO Jul 12, 2021 11:19
--- NOTE | 2021-07-12 13:30 | Physical Therapy Daily Note ---
PT Daily Note-Current Subjective Pt agrees to Rx, wants to be up ad valerie before DC tomorrow. no c/o pain Pain Location: No Pain Reported Mental Status Patient Orientation: Normal For Age Transfers SCALE: Activities may be completed with or without assistive devices. 4-Myoltuqxef-knxtslz completes the activity by him/herself with no assistance from a helper. 5-Set-up or Clean-up Assistance-helper sets up or cleans up; patient completes activity. [place] assists only prior to or following the activity. 4-Supervision or Touching Assistance-helper provides verbal cues and/or touching/steadying and/or contact guard assistance as patient completes activity. Assistance may be provided throughout the activity or intermittently. 3-Partial/Moderate Assistance-helper does LESS THAN HALF the effort. [place] lifts, holds or supports trunk or limbs, but provides less than half the effort. 2-Substantial/Maximal Assistance-helper does MORE THAN HALF the effort. [place] lifts or holds trunk or limbs and provides more than half the effort. 5-Gvsvvxwbd-ijfdyu does ALL the effort. Patient does none of the effort to complete the activity. Or, the assistance of 2 or more helpers is required for the patient to complete the activity. If activity was not attempted, code reason: 7-Patient Refused. 9-Not Applicable-not attempted and the patient did not perform the activity bef ore the current illness, exacerbation or injury. 10-Not Attempted due to Environmental Limitations-(lack of equipment, weather r estraints, etc.). 88-Not Attempted due to Medical Conditions or Safety Concerns. Roll Left & Right (QC): 6 Sit to Lying (QC): 6 Lying to Sitting/Side of Bed(Q: 6 Sit to Stand (QC): 6 Chair/Tnf-cc-Aykla Xfer(QC): 6 Toilet Transfer (QC): 6 Car Transfer (QC): 6 Weight Bearing Right Lower Extremity: Right Weight Bearing/Tolerated Left Lower Extremity: Left Full Weight Bearing Gait Training Does the Patient Walk?: Yes Walk 10 feet (QC): 6 Walk 50 ft with 2 Turns(QC): 6 Walk 150 ft (QC): 6 Walking 10ft/uneven surface-QC: 6 Gait Persons Needed: 0 Gait Assistive Device: FWW gait continues with poor heel strike on right as pt. has approx 20 degrees flexion/ lacking knee extension Stair Training Stair Training: Handrails/: 2 handrails #of Steps: 8 1 Step (curb) (QC): 5 4 Steps (QC): 5 12 Steps (QC): 88 Stairs: Pattern: Step to occas cues for sequence Balance Picking up an Object (QC): 4 Exercises Supine Ex: Ankle pumps, Quad Set, Glut sets, Heel Slides, Short Arc Quads, Straight leg raise, Hip abd/add Supine Reps: 15 Seated Therapy Exercises: Ankle pumps, Sit to stand, Long arc quads Seated Reps: 15 NuStep Minutes: 10 NuStep Workload: 4 Assessment Current Status: Good Progress up ad valerie after Rx PT Mcfp Goals Pulley Mortiser Operator Goals PT Mcfp Goals Time Frame: Jul 28, 2021 Roll Left & Right (QC): 6 Sit to Lying (QC): 6 Lying-Sitting on Side/Bed(QC): 6 Sit to Stand (QC): 5 Chair/Ttq-oq-Rdvln Xfer(QC): 5 Toilet Transfer (QC): 5 Car Transfer (QC): 5 Does the Patient Walk: Yes Walk 10 feet (QC): 5 Walk 50ft with 2 Turns (QC): 5 Walk 150 ft (QC): 5 Walking 10ft on Uneven Surface: 5 1 Step (curb) (QC): 5 4 Steps (QC): 5 12 Steps (QC): 5 Picking up an Object (QC): 4 Does the Pt use WC or Scooter?: No Wheel 50 feet with 2 turns (QC: 9 Type: N/A Wheel 150 feet: 9 Type: N/A PT Plan Treatment/Plan Treatment Plan: Continue Plan of Care Treatment Plan: Bed Mobility, Concurrent Therapy, Education, Functional Activity Sharad, Functional Strength, Group Therapy, Gait, Safety, Therapeutic Exercise, Transfers Treatment Duration: Jul 28, 2021 Frequency: At least 5 of 7 days/Wk (IRF) Estimated Hrs Per Day: 1.5 hours per day Patient and/or Family Agrees t: Yes Safety Risks/Education Patient Education: Gait Training, Transfer Techniques, Steps, Correct Positioning, Disease Process, Safety Issues Teaching Recipient: Patient Teaching Methods: Demonstration, Discussion Response to Teaching: Verbalize Understanding, Return Demonstration, Reinforcement Needed Time/GCodes Time In: 1100 Time Out: 1200 Total Billed Treatment Time: 60 Total Billed Treatment 1,GT30m,FA15m,EX15m ZENIA HAQUE AIR CONDITIONER INSTALLER HELPER Jul 12, 2021 13:30
--- NOTE | 2021-07-12 14:37 | Therapy Group Daily Note ---
Therapy Daily Group Note Patient Education Topic Other List Below Exercises LE Seated Exercise, UE Exercise Session Ratio (pt:therapist): 4:1 Goal of Session: Education on ARU Expectations, UE/LE Strengthing, Safety with Transfers, Use of Adaptive Equipment Goal Met for this Session: Yes Pt Benefit of Group: Contributions to Others, F/U Use of Strategies @Home, Increased Functional Safety, Increased Functional Strength, Improved Cognition, Recognition of Peers, Socialization Other/Notes Pt participated in group therapy with focus on topics including bed mobility, UE/LE strengthening, safety, tub/shower transfers and DME. She interacted well with others yet required repetition at times due to being [place]. Pt is up ad valerie and ambulated to/from room indep. Start Time: 13:00 Stop Time: 14:00 Total Billed Treatment Time: 60 Total Billed Treatment 1, group Pat Carmichael OT Jul 12, 2021 14:37
[2021-07-12] MEDS: LOSARTAN 50 MG (COZAAR) TAB PO SCH (17:33)
[2021-07-12] MEDS: metFORMIN XR 500 MG (GLUCOPHAGE XR) TAB PO SCH (17:33)
[2021-07-12] MEDS: FAMOTIDINE 20 MG (PEPCID) TABLET PO SCH (20:22)
[2021-07-12] MEDS: ALPRAZolam 0.25 MG (XANAX) TAB PO PRN (20:23)
[2021-07-12] MEDS: APIXABAN 2.5 MG (ELIQUIS) TABLET PO SCH (20:24)
[2021-07-12] MEDS: MIRTAZAPINE 15 MG (REMERON) TAB PO SCH (20:24)
[2021-07-12 21:21] VITALS: BP 136/56
[2021-07-13] MEDS: ONDANSETRON 4 MG (ZOFRAN) ORAL DISSOLVE TAB PO PRN (00:13)
[2021-07-13] MEDS ORDERED: OXC5T PO (05:51)
[2021-07-13] MEDS ORDERED: DOCU100C37 PO (05:51)
--- NOTE | 2021-07-13 05:53 | Discharge Summary ---
Diagnosis/Chief Complaint Date of Admission Jul 06, 2021 at 10:50 Date of Discharge Discharge Date: Jul 13, 2021 Discharge Diagnosis Assess & Plan/Chief Complaint Assessment: Status post right knee replacement Generalized weakness and debility Fall risk History of lymphoma Paroxysmal atrial fibrillation History of recurrent GI bleeds Postop constipation Diabetes Hypertension Mild cognitive decline Severe iron deficiency requiring transfusion and iron infusions Plan: Inpatient rehab protocol Monitor cognition Pain control Bowel regimen 07/07/2021: Pain control Bowel regimen 07/08/2021: Supportive care Oxycodone Bowel regimen 07/09/2021: Transfuse 1 unit Supportive care Iron infusions on Friday07/10/2021: Improved hemoglobin Doing very well today 07/11/21: Iron infusions Pain control DC Friday07/12/2021: Discharge on Friday Third iron infusion Friday (1) Status post right knee replacement (2) Diffuse large B-cell lymphoma Status: Acute (3) Non-insulin dependent type 2 diabetes mellitus Status: Chronic (4) HLD (hyperlipidemia) Status: Chronic (5) Hypertension Status: Chronic (6) PAF (paroxysmal atrial fibrillation) Status: Chronic (7) Recurrent gastrointestinal hemorrhage Status: Chronic Discharge Summary Discharge Physical Examination Allergies: Coded Allergies: Cephalexin Monohydrate (Verified Allergy, Unknown, has tolerated Ancef, 08/03/19) Iodinated Contrast Media (Verified Allergy, Unknown, 10/29/19) Penicillins (Verified Allergy, Unknown, Has tolerated Ancef, 08/03/19) ciprofloxacin (Verified Allergy, Unknown, 02/25/21) iodine (Verified Allergy, Unknown, 07/08/19) linaclotide (Verified Allergy, Unknown, 07/28/19) lubiprostone (Verified Allergy, Unknown, 07/28/19) prednisolone (Verified Allergy, Unknown, 02/25/21) sulfamethoxazole (Verified Allergy, Unknown, 02/25/21) trimethoprim (Verified Allergy, Unknown, 02/25/21) venlafaxine HCl (Verified Allergy, Unknown, 07/08/19) Vitals & I&Os Vital Signs Date Time Temp Pulse Resp B/P (MAP) Pulse Ox O2 Delivery O2 Flow Rate FiO2 07/13/21 09:00 Room Air 07/13/21 07:25 36.6 100 18 142/63 (89) 93 07/09/21 09:32 90.00 General Appearance: Alert, Oriented X3, Cooperative Respiratory: Clear to Auscultation Cardiovascular: Regular Rate Psych/Mental Status: Mental Status NL Hospital Course Was the Problem List Reviewed?: Yes Hospital course: standard course after admitting from 4th floor after an uncomplicated knee replacement. She performed well in IRF and after gaining control of her pain with Oxycodone she was able to participate in therapy and independence enough to return home. She did require 1 unit of blood transfusion then completed iron infusions for post op anemia and severe iron def. BM regimen was successful. She was DC with HH. Labs (last 24 hrs) Laboratory Tests 07/07/21 05:34: Iron Level 14L, Vitamin B12 Level 584 07/07/21 06:54: White Blood Count 8.9, Red Blood Count 2.52L, Hemoglobin 7.3L, Hematocrit 24L, Mean Corpuscular Volume 94, Mean Corpuscular Hemoglobin 29, Mean Corpuscular Hemoglobin Concent 31L, Red Cell Distribution Width 15.8H, Platelet Count 246, Mean Platelet Volume 9.5, Immature Granulocyte % (Auto) 0, Neutrophils (%) (Auto) 74, Lymphocytes (%) (Auto) 9L, Monocytes (%) (Auto) 15H, Eosinophils (%) (Auto) 2, Basophils (%) (Auto) 1, Neutrophils # (Auto) 6.5, Lymphocytes # (Auto) 0.8L, Monocytes # (Auto) 1.3H, Eosinophils # (Auto) 0.1, Basophils # (Auto) 0.1, Immature Granulocyte # (Auto) 0.0, Sodium Level 136, Potassium Level 3.6, Chloride Level 106, Carbon Dioxide Level 19L, Anion Gap 11, Blood Urea Nitrogen 7, Creatinine 0.71, Estimat Glomerular Filtration Rate 80, BUN/Creatinine Ratio 10, Glucose Level 116H, Calcium Level 8.2L, Corrected Calcium 9.1, Total Bilirubin 0.4, Aspartate Amino Transf (AST/SGOT) 13, Alanine Aminotransferase (ALT/SGPT) 7, Alkaline Phosphatase 107, Total Protein 5.7L, Albumin 2.9L 07/09/21 05:20: White Blood Count 7.6, Red Blood Count 2.36L, Hemoglobin 6.8*L, Hematocrit 22L, Mean Corpuscular Volume 95, Mean Corpuscular Hemoglobin 29, Mean Corpuscular Hemoglobin Concent 31L, Red Cell Distribution Width 15.9H, Platelet Count 289, Mean Platelet Volume 9.4, Immature Granulocyte % (Auto) 0, Neutrophils (%) (Auto) 67, Lymphocytes (%) (Auto) 13, Monocytes (%) (Auto) 14H, Eosinophils (%) (Auto) 5, Basophils (%) (Auto) 1, Neutrophils # (Auto) 5.1, Lymphocytes # (Auto) 1.0, Monocytes # (Auto) 1.1H, Eosinophils # (Auto) 0.4H, Basophils # (Auto) 0.1, Immature Granulocyte # (Auto) 0.0, Sodium Level 139, Potassium Level 3.5L, Chloride Level 105, Carbon Dioxide Level 22, Anion Gap 12, Blood Urea Nitrogen 9, Creatinine 0.72, Estimat Glomerular Filtration Rate 78, BUN/Creatinine Ratio 13, Glucose Level 123H, Calcium Level 8.1L, Corrected Calcium 9.1, Total Bilirubin 0.4, Aspartate Amino Transf (AST/SGOT) 15, Alanine Aminotransferase (ALT/SGPT) 9, Alkaline Phosphatase 105, Total Protein 5.6L, Albumin 2.7L 07/10/21 06:46: Hemoglobin 8.9#L Pending Labs Laboratory Tests 07/07/21 05:34: Iron Level 14, Vitamin B12 Level 584 07/07/21 06:54: White Blood Count 8.9, Red Blood Count 2.52, Hemoglobin 7.3, Hematocrit 24, Mean Corpuscular Volume 94, Mean Corpuscular Hemoglobin 29, Mean Corpuscular Hemoglobin Concent 31, Red Cell Distribution Width 15.8, Platelet Count 246, Mean Platelet Volume 9.5, Immature Granulocyte % (Auto) 0, Neutrophils (%) (Auto) 74, Lymphocytes (%) (Auto) 9, Monocytes (%) (Auto) 15, Eosinophils (%) (Auto) 2, Basophils (%) (Auto) 1, Neutrophils # (Auto) 6.5, Lymphocytes # (Auto) 0.8, Monocytes # (Auto) 1.3, Eosinophils # (Auto) 0.1, Basophils # (Auto) 0.1, Immature Granulocyte # (Auto) 0.0, Sodium Level 136, Potassium Level 3.6, Chloride Level 106, Carbon Dioxide Level 19, Anion Gap 11, Blood Urea Nitrogen 7, Creatinine 0.71, Estimat Glomerular Filtration Rate 80, BUN/Creatinine Ratio 10, Glucose Level 116, Calcium Level 8.2, Corrected Calcium 9.1, Total Bilirubin 0.4, Aspartate Amino Transf (AST/SGOT) 13, Alanine Aminotransferase (ALT/SGPT) 7, Alkaline Phosphatase 107, Total Protein 5.7, Albumin 2.9 07/09/21 05:20: White Blood Count 7.6, Red Blood Count 2.36, Hemoglobin 6.8, Hematocrit 22, Mean Corpuscular Volume 95, Mean Corpuscular Hemoglobin 29, Mean Corpuscular Hemoglobin Concent 31, Red Cell Distribution Width 15.9, Platelet Count 289, Mean Platelet Volume 9.4, Immature Granulocyte % (Auto) 0, Neutrophils (%) (Auto) 67, Lymphocytes (%) (Auto) 13, Monocytes (%) (Auto) 14, Eosinophils (%) (Auto) 5, Basophils (%) (Auto) 1, Neutrophils # (Auto) 5.1, Lymphocytes # (Auto) 1.0, Monocytes # (Auto) 1.1, Eosinophils # (Auto) 0.4, Basophils # (Auto) 0.1, Immature Granulocyte # (Auto) 0.0, Sodium Level 139, Potassium Level 3.5, Ch loride Level 105, Carbon Dioxide Level 22, Anion Gap 12, Blood Urea Nitrogen 9, Creatinine 0.72, Estimat Glomerular Filtration Rate 78, BUN/Creatinine Ratio 13, Glucose Level 123, Calcium Level 8.1, Corrected Calcium 9.1, Total Bilirubin 0.4, Aspartate Amino Transf (AST/SGOT) 15, Alanine Aminotransferase (ALT/SGPT) 9, Alkaline Phosphatase 105, Total Protein 5.6, Albumin 2.7 07/10/21 06:46: Hemoglobin 8.9 Discharge Home Medications: Active Scripts Active Docusate Sodium 100 Mg Capsule 100 Mg PO BID Oxyir Tablet (Oxycodone HCl) 5 Mg Tab 5-10 Mg PO Q4H PRN Reported Mirtazapine 15 Mg Tablet 15 Mg PO HS Vitamin D3 (Cholecalciferol (Vitamin D3)) 50 Mcg Tablet 50 Mcg PO DAILY Metformin HCl ER (Metformin HCl) 500 Mg Tab.er.24h 500 Mg PO 1700 W/MEAL Losartan Potassium 50 Mg Tablet 50 Mg PO 1700 Eliquis (Apixaban) 2.5 Mg Tablet 2.5 Mg PO BID Flecainide Acetate 100 Mg Tablet 150 Mg PO BID TAKES 1 & (100NG) TABS Aspirin EC (Aspirin) 81 Mg Tablet.dr 81 Mg PO DAILY Probiotic (Lactobacillus Combo No.10) 1 Each Capsule 1 Each PO DAILY Refresh Tears (Carboxymethylcellulose Sodium) 15 Ml Drops 2 Drops OU PRN PRN Carvedilol 6.25 Mg Tablet 6.25 Mg PO BID Citalopram HBr (Citalopram Hydrobromide) 10 Mg Tablet 10 Mg PO BID Famotidine 20 Mg Tablet 20 Mg PO BID Preservision Areds Tablet (Vit A/Vit C/Vit E/Zinc/Copper) 1 Each Tablet 2 Tab PO DAILY Premarin (Estrogens Conjugated) 0.45 Mg Tab 0.45 Mg PO DAILY Atorvastatin Calcium 20 Mg Tablet 20 Mg PO 1700 Pantoprazole Sodium 40 Mg Tablet.dr 40 Mg PO DAILY Furosemide 20 Mg Tablet 20 Mg PO DAILY PRN Instructions to patient/family Please see electronic discharge instructions given to patient. Diagnosis/Problems Diagnosis/Problems (1) Status post right knee replacement (2) Diffuse large B-cell lymphoma Status: Acute (3) Non-insulin dependent type 2 diabetes mellitus Status: Chronic (4) HLD (hyperlipidemia) Status: Chronic (5) Hypertension Status: Chronic (6) PAF (paroxysmal atrial fibrillation) Status: Chronic (7) Recurrent gastrointestinal hemorrhage Status: Chronic JEANNE HENSON DO Jul 13, 2021 05:53
--- NOTE | 2021-07-13 05:53 | D/C HH Face to Face Order ---
D/C HH Face to Face Orders Reconcile Patient Problems Problems Reviewed?: Yes Instructions for Patient Home Health Patient Instructions/FollowUp: PCP 1 week Physician to follow Patient: PCP Discharge Diet for Home: No Restrictions Patient Problems: s/p knee replacement Anemia Patient Data-Allergies,Ht & Wt Patient Allergies: Coded Allergies: Cephalexin Monohydrate (Verified Allergy, Unknown, has tolerated Ancef, 08/03/19) Iodinated Contrast Media (Verified Allergy, Unknown, 10/29/19) Penicillins (Verified Allergy, Unknown, Has tolerated Ancef, 08/03/19) ciprofloxacin (Verified Allergy, Unknown, 02/25/21) iodine (Verified Allergy, Unknown, 07/08/19) linaclotide (Verified Allergy, Unknown, 07/28/19) lubiprostone (Verified Allergy, Unknown, 07/28/19) prednisolone (Verified Allergy, Unknown, 02/25/21) sulfamethoxazole (Verified Allergy, Unknown, 02/25/21) trimethoprim (Verified Allergy, Unknown, 02/25/21) venlafaxine HCl (Verified Allergy, Unknown, 07/08/19) Home Health Need/Face to Face Date of Face to Face: Jul 13, 2021 Clinical Findings: Instability, Unsteady gait I have seen Pt [id number]: Yes Discharged To: Home Diagnosis/Conditions: s/p knee replacement Anemia Patient is Homebound due to: CognItive deficits, Richard fall risk due to i nstabilty, Muscle weakness, Pain w/ambulation Homebound Status Due to the above stated illness, injury or surgical procedure (medical condition or diagnosis) and associated clinical findings, the patient is homebound because of his/her inability to leave home except with aid of a supportive device and/or person AND leaving the home requires a considerable and taxing effort or is medically contraindicated. Pt req the following assistanc: Walker Home Health Nursing Orders Home Health Services Order: Nursing Services, Physical Therapy-Evaluate & Treat Home Health Infusion Therapy Line Start Date: Jul 09, 2021 Certify Stmt I certify that this patient is under my care and that I, a nurse practitioner or a physician; a assistant director of plant operations working with me, had a face to face encounter that - meets the physician face to face encounter requirements with this patient as dated. JEANNE HENSON DO Jul 13, 2021 05:53
[2021-07-13] MEDS: MULTIVIT W/MINERALS TAB (THERAGRAN M) PO SCH (05:59)
[2021-07-13] MEDS: CATHETER FLUSH 10 ML SYR IV SCH (06:00)
--- NOTE | 2021-07-13 07:04 | Progress Note ---
Standard Progress Note Progress Notes/Assess & Plan Date Seen by a Provider: Jul 13, 2021 Time Seen by a Provider: 07:03 Progress/Assessment & Plan no complaints ambulating in common area gait improved s/p RTKA continue PT/OT Final Diagnosis no complaints R knee incision clean and dry. No calf tenderness s/p RTKA DC later today GEGE ARCE MD Jul 13, 2021 07:04
[2021-07-13 07:25] VITALS: BP 142/63
[2021-07-13] MEDS: FLECAINIDE 100 MG (TAMBOCOR) TAB PO SCH (07:57)
[2021-07-13] MEDS: ASPIRIN E.C. 81 MG (ECOTRIN) TAB PO SCH (07:58)
[2021-07-13] MEDS: VITAMIN D3 25 MCG (1,000 UNITS) TABLET PO SCH (07:58)
[2021-07-13] MEDS: ESTROGENS CONJUGATED 0.45 MG (PREMARIN) TAB PO SCH (07:58)
[2021-07-13] MEDS: PANTOPRAZOLE 40 MG (PROTONIX) TAB PO SCH (07:58)
[2021-07-13] MEDS: APIXABAN 2.5 MG (ELIQUIS) TABLET PO SCH (07:59)
[2021-07-13] MEDS: LACTOBACILLUS ACIDOPHILUS (PROBIOTIC) CAPSULE PO SCH (07:59)
[2021-07-13] MEDS ORDERED: IRON SUCROSE 200 MG/10 ML (VENOFER) VIAL IV ONE (08:00)
--- NOTE | 2021-07-13 08:15 | Therapy Team Discharge Summary ---
Therapy Discharge Summary Discharge Recommendations Date of Discharge Occupational Therapy Pt admitted to ARU s/p R TKA. At [facility], pt was independent with ADLs and functional mobility, using FWW. Upon initial evaluation, pt was independent with eating, required CGA oral care, min A showering and upper body dressing, CGA lower body dressing and toileting, and max A footwear. OT txs focused on increasing BUE strength and activity tolerance and increasing safety and independence with ADLs and functional mobility. At discharge, pt was independent with eating, oral care, upper/lower body dressing and toileting, meeting these LTGs. Pt required set up assistance with showering and min A footwear, she made functional progress towards thees LTGs, but did not attain. Pt to discharge from facility on this date, d/c from OT at this time. Decreased Activ Tolerance, Decreased UE Strength, Impaired I ADL's, Impaired Self-Care Skills PT Custodial Goals Custodial Goals PT Custodial Goals Time Frame: Jul 28, 2021 Roll Left to Right (QC): 6 Sit to Lying (QC): 6 Lying-Sitting on Side/Bed(QC): 6 Sit to Stand (QC): 5 Chair/[id number]-wh-Itpcn Xfer(QC): 5 Car Transfer (QC): 5 Does the Patient Walk: Yes Walk 10 feet (QC): 5 Walk 10ft-Uneven Surface(QC): 5 Walk 50ft with 2 Turns (QC): 5 Walk 150 ft (QC): 5 Does the Pt use WC or Scooter?: No Wheel 50 feet with 2 turns (QC: 9 1 Step (curb) (QC): 5 4 Steps (QC): 5 12 Steps (QC): 5 Picking up an Object (QC): 4 OT Custodial Goals Custodial Goals Time Frame: Jul 27, 2021 Eating (QC): 6 (met) Oral Hygiene (QC): 6 (met) Shower/Bathe Self (QC): 6 (not met) Upper Body Dressing (QC): 6 (met) Lower Body Dressing (QC): 6 (met) On/Off Footwear (QC): 6 (not met) Toileting Hygiene (QC): 6 (met) Toilet/Commode Transfer (QC): 5 Additional Goals: 1-Demonstrate ADL Tasks, 2-Verbalize Understanding, 3- ImproveStrength/Sharad 1=Demonstrate adherence to instructed precautions during ADL tasks. 2=Patient will verbalize/demonstrate understanding of assistive devices/modifications for ADL. 3=Patient will improve strength/tolerance for activity to enable patient to perform ADL's. Speech Gericare Aide Goals Gericare Aide Goals Patient will improve functional cognitive abilities in order to increase safety and independence. RYAN DUNNE OT Jul 13, 2021 08:15
--- NOTE | 2021-07-13 15:03 | Therapy Team Discharge Summary ---
Therapy Discharge Summary Discharge Recommendations Date of Discharge Jul 13, 2021 at 11:00 Physical Therapy Patient came to rehab following a right TKA. Upon evaluation patient performed rolling and supine <-> sit with SBA, sit <-> stand and transfers with min/mod assist, car transfer with min/mod assist, ambulated 100' with a rolling walker with min/mod assist (including 50' with at least 2 turns of 90 degrees and 10' over an uneven surface), and could go up and down 4 steps using 2 handrails with min assist. Patient has been performing bed mobility and transfer training, balance and endurance training,functional strengthening, stair training, gait training, and education. 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 Now, patient performs bed mobility and transfers with independence, car transfer independent, ambulates 150' with a rolling walker with independence (including 50' with at least 2 turns of 90 degrees and 10' over an uneven surface), can go up and down 4 steps using 2 handrails with setup, and can picker tender an object from the floor with CGA/SBA. Patient has been discharged from this facility today and will be discharged from PT at this time. Occupational Therapy Decreased Activ Tolerance, Decreased UE Strength, Impaired I ADL's, Impaired S elf-Care Skills PT Mogul Operator Goals Care Home Goals PT Mogul Operator Goals Time Frame: Jul 28, 2021 Roll Left to Right (QC): 6 Sit to Lying (QC): 6 Lying-Sitting on Side/Bed(QC): 6 Sit to Stand (QC): 5 Chair/[id number]-vg-Udwua Xfer(QC): 5 Car Transfer (QC): 5 Does the Patient Walk: Yes Walk 10 feet (QC): 5 Walk 10ft-Uneven Surface(QC): 5 Walk 50ft with 2 Turns (QC): 5 Walk 150 ft (QC): 5 Does the Pt use WC or Scooter?: No Wheel 50 feet with 2 turns (QC: 9 1 Step (curb) (QC): 5 4 Steps (QC): 5 12 Steps (QC): 5 Picking up an Object (QC): 4 OT Mogul Operator Goals Mogul Operator Goals Time Frame: Jul 27, 2021 Eating (QC): 6 (met) Oral Hygiene (QC): 6 (met) Shower/Bathe Self (QC): 6 (not met) Upper Body Dressing (QC): 6 (met) Lower Body Dressing (QC): 6 (met) On/Off Footwear (QC): 6 (not met) Toileting Hygiene (QC): 6 (met) Toilet/Commode Transfer (QC): 5 Additional Goals: 1-Demonstrate ADL Tasks, 2-Verbalize Understanding, 3- ImproveStrength/Sharad 1=Demonstrate adherence to instructed precautions during ADL tasks. 2=Patient will verbalize/demonstrate understanding of assistive devices/modifications for ADL. 3=Patient will improve strength/tolerance for activity to enable patient to perform ADL's. Speech Care Home Goals Mogul Operator Goals Patient will improve functional cognitive abilities in order to increase safety and independence. RENEE WHITE PT Jul 13, 2021 15:03
== END 2021-07-13 11:00 | disposition home health service (06) | DRG 560 ==
PROVIDERS: ADMIT Internal Medicine; ATTEND Internal Medicine
DX: Z47.1 Aftercare following joint replacement surgery (principal); C83.30 Diffuse large B-cell lymphoma, unspecified site; Z96.651 Presence of right artificial knee joint; D64.89 Other specified anemias; R26.89 Other abnormalities of gait and mobility; Z91.81 History of falling; G31.84 Mild cognitive impairment of uncertain or unknown etiology; I10 Essential (primary) hypertension; I48.0 Paroxysmal atrial fibrillation; K21.9 Gastro-esophageal reflux disease without esophagitis; M19.91 Primary osteoarthritis, unspecified site; M06.9 Rheumatoid arthritis, unspecified; E11.9 Type 2 diabetes mellitus without complications; F41.9 Anxiety disorder, unspecified; F32.A Depression, unspecified; K59.09 Other constipation; E78.5 Hyperlipidemia, unspecified; Z88.0 Allergy status to penicillin; Z88.2 Allergy status to sulfonamides; Z88.8 Allergy status to other drugs, medicaments and biological substances; Z88.1 Allergy status to other antibiotic agents; Z91.041 Radiographic dye allergy status; Z79.01 Long term (current) use of anticoagulants; Z79.84 Long term (current) use of oral hypoglycemic drugs; Z79.82 Long term (current) use of aspirin
CPT/HCPCS: 36410; 36415; 76937; 80053; 82607; 83540; 85018; 85025; 86850; 86900; 86901; 86920

== ENCOUNTER 2021-07-26 23:30 | Emergency (ER) | payer MEDICARE, OTHER ==
[~2021-07-26] VITALS: Ht 167 cm; Wt 72.5 kg
[~2021-07-26 23:30] MED LIST changes: -CITA10TA7 PO; +CITA10TA9 PO; +DOCU100C37 PO; -LEVO250T46 PO; +LVF250T PO; +OXC5T PO
--- NOTE | 2021-07-27 00:40 | ED Lower Extremity ---
General Chief Complaint: Post OP Complications/Pain Stated Complaint: POST OP RT KNEE PAIN Source: patient History of Present Illness Date Seen by Provider: Jul 27, 2021 Time Seen by Provider: 00:28 Initial Comments Patient is a 76-year-old female who presents to the emergency department today with a chief complaint of right knee pain. Patient states that she had right total knee replacement on [address] July[address] MORRELL, her surgeon last week. She states over the course of today she is noted increased swelling and worsening pain to the right knee. She states the knee is turning "purple". Patient states that she takes Eliquis 5 mg daily. She also has a history of atrial fibrillation. She denies any fevers, chills, cough or congestion. She is Covid vaccinated. She states the leg is slightly more swollen today than it has been. She has been in a recliner chair attempting to prop up the knee. She took her last oxycodone pill at around 430 this afternoon and a couple of Ty lenol at 10 PM. Patient states she is having a tremendously difficult time walking around on the knee. She has been doing physical therapy. No complaints of fall or twisting injury. All other review of systems reviewed and negative except as stated. Onset: other (today worsening pain) Severity: moderate ("8") Pain/Injury Location: right leg Modifying Factors: Worse With Movement Allergies and Home Medications Allergies Coded Allergies: Cephalexin Monohydrate (Verified Allergy, Unknown, has tolerated Ancef, 08/03/19) Iodinated Contrast Media (Verified Allergy, Unknown, 10/29/19) Penicillins (Verified Allergy, Unknown, Has tolerated Ancef, 08/03/19) ciprofloxacin (Verified Allergy, Unknown, 02/25/21) iodine (Verified Allergy, Unknown, 07/08/19) linaclotide (Verified Allergy, Unknown, 07/28/19) lubiprostone (Verified Allergy, Unknown, 07/28/19) prednisolone (Verified Allergy, Unknown, 02/25/21) sulfamethoxazole (Verified Allergy, Unknown, 02/25/21) trimethoprim (Verified Allergy, Unknown, 02/25/21) venlafaxine HCl (Verified Allergy, Unknown, 07/08/19) Patient Home Medication List Home Medication List Reviewed: Yes Apixaban (Eliquis) 2.5 Mg Tablet, 2.5 MG PO BID, (Reported) Entered as Reported by: ALESHIA CONNELLY on 10/31/20 112 Aspirin (Aspirin EC) 81 Mg Tablet.dr, 81 MG PO DAILY, (Reported) Entered as Reported by: ALESHIA CONNELLY on 10/31/20 112 Atorvastatin Calcium (Atorvastatin Calcium) 20 Mg Tablet, 20 MG PO 1700, (Reported) Entered as Reported by: BRUNO GRIMALDO on 07/09/19 0910 Carboxymethylcellulose Sodium (Refresh Tears) 15 Ml Drops, 2 DROPS OU PRN PRN for DRY EYES, (Reported) Entered as Reported by: ALESHIA CONNELLY on 12/15/19 1311 Carvedilol (Carvedilol) 6.25 Mg Tablet, 6.25 MG PO BID, (Reported) Entered as Reported by: BRUNO GRIMALDO on 10/15/19 0954 Cholecalciferol (Vitamin D3) (Vitamin D3) 50 Mcg Tablet, 50 MCG PO DAILY, (Reported) Entered as Reported by: ROB SOLARES on 06/21/21 1425 Citalopram Hydrobromide (Citalopram HBr) 10 Mg Tablet, 10 MG PO BID, (Reported) Entered as Reported by: BRUNO GRIMALDO on 10/15/19 0954 Docusate Sodium (Docusate Sodium) 100 Mg Capsule, 100 MG PO BID Prescribed by: JEANNE HENSON on 07/13/21 0551 Estrogens Conjugated (Premarin) 0.45 Mg Tab, 0.45 MG PO DAILY, (Reported) Entered as Reported by: BRUNO GRIMALDO on 07/09/19 0910 Famotidine (Famotidine) 20 Mg Tablet, 20 MG PO BID, (Reported) Entered as Reported by: BRUNO GRIMALDO on 10/15/19 0954 Flecainide Acetate (Flecainide Acetate) 100 Mg Tablet, 150 MG PO BID, (Reported) Entered as Reported by: ALESHIA CONNELLY on 10/31/20 112 Furosemide (Furosemide) 20 Mg Tablet, 20 MG PO DAILY PRN for SWELLING, (Reported) Entered as Reported by: MARGARET CARDOZA on 07/08/191999 Lactobacillus Combo No.10 (Probiotic) 1 Each Capsule, 1 EACH PO DAILY, (Reported) Entered as Reported by: ALESHIA CONNELLY on 12/15/19 1319 Losartan Potassium (Losartan Potassium) 50 Mg Tablet, 50 MG PO 1700, (Reported) Entered as Reported by: ALESHIA CONNELLY on 10/31/20 1122 Metformin HCl (Metformin HCl ER) 500 Mg Tab.er.24h, 500 MG PO 1700 W/MEAL, (Reported) Entered as Reported by: ALESHIA CONNELLY on 10/31/20 1122 Mirtazapine (Mirtazapine) 15 Mg Tablet, 15 MG PO HS, (Reported) Entered as Reported by: SHARMAINE SIMPSON on 07/04/21 1444 Oxycodone Hcl (Oxyir Tablet) 5 Mg Tab, 5-10 MG PO Q4H PRN for PAIN-SEVERE (8-10) Prescribed by: JEANNE HENSON on 07/13/21 0552 Pantoprazole Sodium (Pantoprazole Sodium) 40 Mg Tablet.dr, 40 MG PO DAILY, (Reported) Entered as Reported by: MARGARET CARDOZA on 07/08/191999 Vit A/Vit C/Vit E/Zinc/Copper (Preservision Areds Tablet) 1 Each Tablet, 2 TAB PO DAILY, (Reported) Entered as Reported by: BRUNO GRIMALDO on 07/09/19 0910 Review of Systems Constitutional: see HPI EENTM: no symptoms reported Respiratory: no symptoms reported Cardiovascular: no symptoms reported Gastrointestinal: nausea Genitourinary: no symptoms reported Musculoskeletal: joint pain (right knee) Skin: other (bruising to right kristine) Psychiatric/Neurological: Anxiety All Other Systems Reviewed Negative Unless Noted: Yes Past Zlvknsw-Xvhavx-Cctxdo Hx Patient Social History Tobacco Use?: No Substance use?: No Alcohol Use?: No Immunizations Up To Date Tetanus Booster (TDap): Unknown Influenza Vaccine Up-to-Date: Yes; Up-to-Date First/Initial COVID19 Vaccinat: NOVEMBER 17 Second COVID19 Vaccination Esa: DECEMBER 18 Third COVID19 Vaccination Date: yes 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 [employer] Seasonal Allergies Seasonal Allergies: Yes Past Medical History Surgery/Hospitalization HX: 07/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, DM, AFIB Surgeries: Yes (sinus sx, hiatal hernia, hemorrhoidectomy, neck sx) Appendectomy, Bladder Surgery, Cardiac, Gallbladder, Hysterectomy Respiratory: No Pneumonia, COPD Currently Using CPAP: No Currently Using BIPAP: No Cardiac: Yes Atrial Fibrillation, Hypertension, Valvular Heart Disease Neurological: No RENAL DIETITIAN History: Menopausal Genitourinary: Yes (BLADDER PROLAPSE--S/P BLADDER SURGERIES WITH VAGINAL MESH) Bladder Infection Gastrointestinal: Yes (dysphagia) Gastroesophageal Reflux, Gastrointestinal Bleed, Chronic Constipation, Hiatal Hernia Musculoskeletal: Yes Arthritis, Rheumatoid Arthritis Endocrine: Yes Diabetes, Non-Insulin dep HEENT: No (cataracts removed) Loss of Vision: Denies Cancer: Yes Lymphoma What Type of Treatment Did You: Chemotherapy Psychosocial: Yes Anxiety, Depression Integumentary: No Blood Disorders: No Adverse Reaction/Blood Tranf: No Family Medical History No Pertinent Family Hx Physical Exam Vital Signs Vital Signs - First Documented 07/27/21 00:23 Temp 36.5 Pulse 83 Resp 17 B/P (MAP) 139/81 (100) Pulse Ox 98 Capillary Refill : Height, Weight, BMI Height: '" Weight: lbs. oz. kg; 25.70 BMI Method:Estimated General Appearance: WD/WN, mild distress Neck: normal inspection Cardiovascular: irregularly irregular (80's) Respiratory: lungs clear, normal breath sounds, no respiratory distress, no accessory muscle use Gastrointestinal: normal bowel sounds, non tender, soft Knees: right knee ecchymosis (over the anterior knee), right knee joint effusion (very tight and swollen), right knee pain (to palpation of the right lateral knee), right knee soft tissue tenderness, right knee swelling Ankles: right ankle non-tender, right ankle normal inspection, right ankle normal range of motion, right ankle no evidence of injury Feet: right foot non-tender, right foot normal inspection, right foot normal range of motion, right foot no evidence of injury Neurologic/Tendon: normal sensation, normal motor functions Neurologic/Psychiatric: alert, normal mood/affect, oriented x 3, other (slightly anxious) Skin: normal color, warm/dry, other (steri-strips over the right knee, dried crusted blood at the proximal portion of the incision site - no active bleeding (she states it's been oozing a little blood); no fluctuance. It is warm to touch) Progress/Results/Core Measures Results/Orders My Orders Orders - KEVIN WASHBURN MD Ondansetron Oral Dissolve Tab (Zofran (07/27/21 00:45) Oxycodone Immediate Rel Tablet (Oxyir Ta (07/27/21 00:45) Knee, Right, 3 Views (07/27/21 00:35) Medications Given in ED Current Medications Medications Dose Ordered Sig/Dino Route Start Time Stop Time Status Last Admin Dose Admin Ondansetron HCl 4 mg ONCE ONCE PO 07/27/21 00:45 07/27/21 00:46 DC 07/27/21 00:52 4 MG Oxycodone HCl 7.5 mg ONCE ONCE PO 07/27/21 00:45 07/27/21 00:46 DC 07/27/21 00:53 7.5 MG Vital Signs/I&O 07/27/21 00:23 Temp 36.5 Pulse 83 Resp 17 B/P (MAP) 139/81 (100) Pulse Ox 98 Progress Progress Note : Time: 02:10 Progress Note Patient allowed to rest after oxycodone 7.5, reexamined and states her pain is much improved. I have advised her to take 1 to 1-1/2 tablets of her oxycodone every 6 hours for pain. Ice packs and elevation to the leg. I have recommended that she call Dr. Morrell's office this morning for follow-up. X-ray is reviewed by me, I do not see a large effusion on x-ray inside the joint. Suspect there is a significant amount of external soft tissue swelling. We will also set her up for an outpatient ultrasound of the right lower extremity to rule out DVT. Patient is instructed to continue her Eliquis. She is advised to return if she develops fever or worsening pain. She is comfortable with this plan of care. All questions are sought and answered. Patient is stable for discharge. Diagnostic Imaging Diagonstic Imaging: Xray Comments Right knee x-ray reviewed by me, hardware looks to be in place, no large effusion is noted. Departure Impression Primary Impression: Postoperative pain of extremity Disposition: 01 HOME, SELF-CARE Condition: Stable Departure-Patient Inst. Decision time for Depature: 02:12 Referrals: LITZY SHAFER MD (PCP/Family) Primary Care Physician GEGE MORRELL MD Patient Instructions: Knee Pain ED Add. Discharge Instructions: Continue ice packs to the right knee off and on to help with the swelling. Continue to elevate your right leg to reduce swelling as well. You can take 1 pill to 1-1/2 pills of your oxycodone every 6 hours as needed for pain. Please call Dr. Morrell's office this morning to inform him of the increased pain and swelling in your right knee. I have written you an order for an ultrasound of the right leg. Please call [facility] scheduling at 8 AM in the morning to set up this ultrasound for tomorrow. Please come back to the emergency department if you have any fever, increased swelling or pain, numbness or weakness. Continue your stool softeners. KEVIN WASHBURN MD Jul 27, 2021 00:40
[2021-07-27] MEDS ORDERED: ONDANSETRON 4 MG (ZOFRAN) ORAL DISSOLVE TAB PO ONE (00:45)
[2021-07-27 02:21] VITALS: BP 147/66
--- NOTE | 2021-07-27 04:30 | Diagnostic Imaging Report ---
EXAM: Right knee radiograph EXAM DATE: 07/27/2021 COMPARISON: 05/30/2021 HISTORY: Right knee pain. TECHNIQUE: 3 views of the right knee. FINDINGS: There have been interval surgical changes from total right knee arthroplasty. No evidence of prosthetic loosening or adjacent cortical fracture. No acute osseous fracture, dislocation, or destructive osseous process. There may be a small joint effusion. Soft tissues are normal. IMPRESSION: 1. No acute osseous abnormality seen within the right knee with surgical changes from right knee arthroplasty. 2. Possible small right joint effusion. Dictated by: Dictated on workstation # [id number]
[2021-07-28] MEDS ORDERED: DOXY100T2 PO (19:16)
[2021-07-28] MEDS ORDERED: CLIN-144 PO (19:16)
[2021-07-28] MEDS ORDERED: OXYC1TAB87 PO (19:16)
[2021-07-28] MEDS ORDERED: LACT1CAP62 PO (19:16)
== END 2021-07-27 02:22 | disposition home or self-care (01) ==
LOC: EDUNIT# 23:30 → ER 23:35
DX: S80.01XA Contusion of right knee, initial encounter (principal); G89.18 Other acute postprocedural pain; J44.9 Chronic obstructive pulmonary disease, unspecified; I10 Essential (primary) hypertension; K21.9 Gastro-esophageal reflux disease without esophagitis; F41.9 Anxiety disorder, unspecified; F32.9 Major depressive disorder, single episode, unspecified; E11.9 Type 2 diabetes mellitus without complications; I48.91 Unspecified atrial fibrillation; Z79.899 Other long term (current) drug therapy; Z79.84 Long term (current) use of oral hypoglycemic drugs; Z79.82 Long term (current) use of aspirin; Z79.01 Long term (current) use of anticoagulants; X58.XXXA Exposure to other specified factors, initial encounter
CPT/HCPCS: 73562

== ENCOUNTER → 2021-07-27 | Outpatient (CLI) | payer MEDICARE, OTHER ==
[~2021-07-27] MED LIST changes: +CLIN-144 PO; +DOXY100T2 PO; +LACT1CAP62 PO; +OXYC1TAB87 PO
--- NOTE | 2021-07-27 11:18 | Diagnostic Imaging Report ---
Procedure: US right lower extremity venous. Technique: Multiple real-time grayscale images were obtained over the right lower extremity in various projections. Additional spectral analysis and color Doppler duplex images were also obtained. Date: July 27, 2021. Indication: Right leg pain and swelling. Comparison: None. Findings: The right common femoral vein, right superficial femoral vein, and right popliteal vein are all compressible with normal blood flow and response to augmentation. The right posterior tibial vein and peroneal vein are patent. The visualized portions of the right greater saphenous vein and deep femoral vein are patent. Impression: 1. Negative for right lower extremity deep venous thrombosis. Dictated by: Dictated on workstation # [id number]
== END ==
LOC: RAD 10:30
PROVIDERS: ATTEND Emergency Medicine
DX: M79.604 Pain in right leg (principal); M79.89 Other specified soft tissue disorders

== ENCOUNTER 2021-07-28 16:04 | Emergency (ER) | payer MEDICARE, OTHER ==
[~2021-07-28] VITALS: Ht 167.7 cm; Wt 72.5 kg
[~2021-07-28 16:04] MED LIST changes: -CLIN-144 PO; -DOXY100T2 PO; -LACT1CAP62 PO; -OXYC1TAB87 PO
[2021-07-28] MEDS ORDERED: morphine INJ 10 MG/ML 1ML (SYR OR VIAL) IVP STA (17:48)
[2021-07-28 18:01] LABS: BASOPHILS # (AUTO) 0.1 10^3/uL (0.0-0.1); BASOPHILS % (AUTO) 1 % (0-10); EOSINOPHILS # (AUTO) 0.3 10^3/uL (0.0-0.3); EOSINOPHILS % (AUTO) 3 % (0-10); HEMATOCRIT 31 % (35-52); HEMOGLOBIN 9.3 g/dL (11.5-16.0); LYMPHOCYTES # (AUTO) 0.9 10^3/uL (1.0-4.0); LYMPHOCYTES % (AUTO) 13 % (12-44); MEAN CORPUSCULAR HEMOGLOBIN 28 pg (25-34); MEAN CORPUSCULAR HGB CONC 30 g/dL (32-36); MEAN CORPUSCULAR VOLUME 94 fL (80-99); MEAN PLATELET VOLUME 9.1 fL (9.0-12.2); MONOCYTES # (AUTO) 0.9 10^3/uL (0.0-1.0); MONOCYTES % (AUTO) 13 % (0-12); NEUTROPHILS # (AUTO) 5.2 10^3/uL (1.8-7.8); NEUTROPHILS % (AUTO) 70 % (42-75); PLATELET COUNT 425 10^3/uL (130-400); WHITE BLOOD COUNT 7.4 10^3/uL (4.3-11.0)
[2021-07-28 18:11] LABS: POTASSIUM 3.3 MMOL/L (3.6-5.0)
[2021-07-28 18:13] LABS: CALCIUM 8.5 MG/DL (8.5-10.1)
[2021-07-28 18:17] LABS: CREATININE SERUM 0.71 MG/DL (0.60-1.30)
[2021-07-28] MEDS ORDERED: CLINDAMYCIN 600 MG/50 ML IVPB 50 ML IV ONE (18:45)
[2021-07-28] MEDS ORDERED: DOXYCYCLINE 100 MG (VIBRAMYCIN) TABLET PO ONE (18:45)
--- NOTE | 2021-07-28 19:08 | Diagnostic Imaging Report ---
INDICATION: Shortness of breath. EXAMINATION: Portable chest at 7:01 PM. There is a right pleural effusion with some volume loss at the right lung base. Left lung is clear. IMPRESSION: Right basilar consolidation with an effusion. Dictated by: Dictated on workstation # [id number]
[2021-07-28] MEDS ORDERED: CLIN-144 PO (19:16)
[2021-07-28] MEDS ORDERED: DOXY100T2 PO (19:16)
[2021-07-28] MEDS ORDERED: OXYC1TAB87 PO (19:16)
[2021-07-28] MEDS ORDERED: LACT1CAP62 PO (19:16)
--- NOTE | 2021-07-28 19:18 | ED General ---
General Chief Complaint: Skin/Wound Problems Stated Complaint: POST OP R KNEE REPLACEMENT/INCISION OPENED UP Nursing Triage Note: PT TO RM 8 BY WHEELCHAIR WITH COMPLAINT OF OPENED INCISION. STATES SHE WAS TAKING THE DRESSING OFF TODAY AND PULLED OFF A STERI STRIP. PT HAS SIGNIFICANT BRUISING TO KNEE. HAD TOTAL KNEE REPLACEMENT ON 07/06/[address] MORRELL. Source of Information: Patient Exam Limitations: No Limitations History of Present Illness Date Seen by Provider: Jul 28, 2021 Allergies and Home Medications Allergies Coded Allergies: Cephalexin Monohydrate (Verified Allergy, Unknown, has tolerated Ancef, 08/03/19) Iodinated Contrast Media (Verified Allergy, Unknown, 10/29/19) Penicillins (Verified Allergy, Unknown, Has tolerated Ancef, 08/03/19) ciprofloxacin (Verified Allergy, Unknown, 02/25/21) iodine (Verified Allergy, Unknown, 07/08/19) linaclotide (Verified Allergy, Unknown, 07/28/19) lubiprostone (Verified Allergy, Unknown, 07/28/19) prednisolone (Verified Allergy, Unknown, 02/25/21) sulfamethoxazole (Verified Allergy, Unknown, 02/25/21) trimethoprim (Verified Allergy, Unknown, 02/25/21) venlafaxine HCl (Verified Allergy, Unknown, 07/08/19) Patient Home Medication List Apixaban (Eliquis) 2.5 Mg Tablet, 2.5 MG PO BID, (Reported) Entered as Reported by: ALESHIA CONNELLY on 10/31/20 1122 Aspirin (Aspirin EC) 81 Mg Tablet.dr, 81 MG PO DAILY, (Reported) Entered as Reported by: ALESHIA CONNELLY on 10/31/20 1122 Atorvastatin Calcium (Atorvastatin Calcium) 20 Mg Tablet, 20 MG PO 1700, (Reported) Entered as Reported by: BRUNO GRIMALDO on 07/09/19 0910 Carboxymethylcellulose Sodium (Refresh Tears) 15 Ml Drops, 2 DROPS OU PRN PRN for DRY EYES, (Reported) Entered as Reported by: ALESHIA CONNELLY on 12/15/19 1311 Carvedilol (Carvedilol) 6.25 Mg Tablet, 6.25 MG PO BID, (Reported) Entered as Reported by: BRUNO GRIMALDO on 10/15/19 0954 Cholecalciferol (Vitamin D3) (Vitamin D3) 50 Mcg Tablet, 50 MCG PO DAILY, (Reported) Entered as Reported by: ROB SOLARES on 06/21/21 1425 Citalopram Hydrobromide (Citalopram HBr) 10 Mg Tablet, 10 MG PO BID, (Reported) Entered as Reported by: BRUNO GRIMALDO on 10/15/19 0954 Docusate Sodium (Docusate Sodium) 100 Mg Capsule, 100 MG PO BID Prescribed by: JEANNE HENSON on 07/13/21 0551 Estrogens Conjugated (Premarin) 0.45 Mg Tab, 0.45 MG PO DAILY, (Reported) Entered as Reported by: BRUNO GRIMALDO on 07/09/19 0910 Famotidine (Famotidine) 20 Mg Tablet, 20 MG PO BID, (Reported) Entered as Reported by: BRUNO GRIMALDO on 10/15/19 0954 Flecainide Acetate (Flecainide Acetate) 100 Mg Tablet, 150 MG PO BID, (Reported) Entered as Reported by: ALESHIA CONNELLY on 10/31/20 112 Furosemide (Furosemide) 20 Mg Tablet, 20 MG PO DAILY PRN for SWELLING, (Reported) Entered as Reported by: MARGARET CARDOZA on 07/08/191999 Lactobacillus Combo No.10 (Probiotic) 1 Each Capsule, 1 EACH PO DAILY, (Reported) Entered as Reported by: ALESHIA CONNELLY on 12/15/19 1319 Losartan Potassium (Losartan Potassium) 50 Mg Tablet, 50 MG PO 1700, (Reported) Entered as Reported by: ALESHIA CONNELLY on 10/31/20 1122 Metformin HCl (Metformin HCl ER) 500 Mg Tab.er.24h, 500 MG PO 1700 W/MEAL, (Reported) Entered as Reported by: ALESHIA CONNELLY on 10/31/20 1122 Mirtazapine (Mirtazapine) 15 Mg Tablet, 15 MG PO HS, (Reported) Entered as Reported by: SHARMAINE SIMPSON on 07/04/21 1444 Oxycodone Hcl (Oxyir Tablet) 5 Mg Tab, 5-10 MG PO Q4H PRN for PAIN-SEVERE (8-10) Prescribed by: JEANNE HENSON on 07/13/21 0552 Pantoprazole Sodium (Pantoprazole Sodium) 40 Mg Tablet.dr, 40 MG PO DAILY, (Reported) Entered as Reported by: MARGARET CARDOZA on 07/08/191999 Vit A/Vit C/Vit E/Zinc/Copper (Preservision Areds Tablet) 1 Each Tablet, 2 TAB PO DAILY, (Reported) Entered as Reported by: BRUNO GRIMALDO on 07/09/19 0910 Past Qobtwmr-Nxreyp-Bixemr Hx Patient Social History Tobacco Use?: No Use of E-Cig and/or Vaping dev: No Substance use?: No Alcohol Use?: No Pt feels they are or have been: No Immunizations Up To Date Tetanus Booster (TDap): Unknown Influenza Vaccine Up-to-Date: Yes; Up-to-Date First/Initial COVID19 Vaccinat: October COVID19 Vaccination Esa: DECEMBER 18 COVID19 Vaccination Date: NOVEMBER 17 COVID19 Vaccine Wait Staff: Dragon ArmyJose Luis Seasonal Allergies Seasonal Allergies: Yes Past Medical History Surgery/Hospitalization HX: 07/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, DM, AFIB Surgeries: Yes (sinus sx, hiatal hernia, hemorrhoidectomy, neck sx) Appendectomy, Bladder Surgery, Cardiac, Gallbladder, Hysterectomy Respiratory: No Pneumonia, COPD Currently Using CPAP: No Currently Using BIPAP: No Cardiac: Yes Atrial Fibrillation, Hypertension, Valvular Heart Disease 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 Genitourinary: Yes (BLADDER PROLAPSE--S/P BLADDER SURGERIES WITH VAGINAL MESH) Bladder Infection Gastrointestinal: Yes (dysphagia) Gastroesophageal Reflux, Gastrointestinal Bleed, Chronic Constipation, Hiatal Hernia Musculoskeletal: Yes Arthritis, Rheumatoid Arthritis Endocrine: Yes Diabetes, Non-Insulin dep HEENT: No (cataracts removed) Loss of Vision: Denies Cancer: Yes Lymphoma What Type of Treatment Did You: Chemotherapy Psychosocial: Yes Anxiety, Depression Integumentary: No Blood Disorders: No Adverse Reaction/Blood Tranf: No Family Medical History No Pertinent Family Hx Physical Exam Vital Signs Vital Signs - First Documented 07/28/21 17:20 Pulse 91 Resp 16 B/P (MAP) 138/78 (98) Pulse Ox 95 O2 Delivery Room Air Capillary Refill : Less Than 3 Seconds Height, Weight, BMI Height: '" Weight: lbs. oz. kg; 25.00 BMI Method:Estimated Progress/Results/Core Measures Suspected Sepsis SIRS Temperature: Pulse: 91 Respiratory Rate: 16 Laboratory Tests 07/28/21 17:53: White Blood Count 7.4 Blood Pressure 138 /78 Mean: 98 Laboratory Tests 07/28/21 17:53: Creatinine 0.71, Platelet Count 425H Results/Orders Lab Results Laboratory Tests Test 07/28/21 17:53 Range/Units White Blood Count 7.4 4.3-11.0 10^3/uL Red Blood Count 3.27 L 3.80-5.11 10^6/uL Hemoglobin 9.3 L 11.5-16.0 g/dL Hematocrit 31 L 35-52 % Mean Corpuscular Volume 94 80-99 fL Mean Corpuscular Hemoglobin 28 25-34 pg Mean Corpuscular Hemoglobin Concent 30 L 32-36 g/dL Red Cell Distribution Width 18.8 H 10.0-14.5 % Platelet Count 425 H 130-400 10^3/uL Mean Platelet Volume 9.1 9.0-12.2 fL Immature Granulocyte % (Auto) 0 % Neutrophils (%) (Auto) 70 42-75 % Lymphocytes (%) (Auto) 13 12-44 % Monocytes (%) (Auto) 13 H 0-12 % Eosinophils (%) (Auto) 3 0-10 % Basophils (%) (Auto) 1 0-10 % Neutrophils # (Auto) 5.2 1.8-7.8 10^3/uL Lymphocytes # (Auto) 0.9 L 1.0-4.0 10^3/uL Monocytes # (Auto) 0.9 0.0-1.0 10^3/uL Eosinophils # (Auto) 0.3 0.0-0.3 10^3/uL Basophils # (Auto) 0.1 0.0-0.1 10^3/uL Immature Granulocyte # (Auto) 0.0 0.0-0.1 10^3/uL Sodium Level 138 135-145 MMOL/L Potassium Level 3.3 L 3.6-5.0 MMOL/L Chloride Level 102 98-107 MMOL/L Carbon Dioxide Level 22 21-32 MMOL/L Anion Gap 14 5-14 MMOL/L Blood Urea Nitrogen 6 L 7-18 MG/DL Creatinine 0.71 0.60-1.30 MG/DL Estimat Glomerular Filtration Rate 80 BUN/Creatinine Ratio 8 Glucose Level 129 H 70-105 MG/DL Calcium Level 8.5 8.5-10.1 MG/DL C-Reactive Protein High Sensitivity 9.53 H 0.00-0.50 MG/DL My Orders Orders - ARIAN FERMIN MD Basic Metabolic Panel (07/28/21 17:32) Cbc With Automated Diff (07/28/21 17:32) Hs C Reactive Protein (07/28/21 17:32) Ed Iv/Invasive Line Start (07/28/21 17:32) Morphine Injection (Morphine Injection (07/28/21 17:48) Clindamycin 600 Mg/50 Ml Ivpb (Cleocin P (07/28/21 18:45) Doxycycline Hyclate Tablet (Vibramycin T (07/28/21 18:45) BNP (07/28/21 18:48) Chest 1 View, Ap/Pa Only (07/28/21 18:48) Vital Signs/I&O 07/28/21 17:20 Pulse 91 Resp 16 B/P (MAP) 138/78 (98) Pulse Ox 95 O2 Delivery Room Air Capillary Refill : Less Than 3 Seconds Blood Pressure Mean: 98 Departure Impression Primary Impression: Dehiscence of incision Qualified Codes: T81.31XA - Disruption of external operation (surgical) wound, not elsewhere classified, initial encounter Additional Impressions: Wound hematoma Postoperative pain Disposition: HOME, SELF-CARE Condition: Improved Departure-Patient Inst. Decision time for Depature: 19:13 Referrals: LITZY SHAFER MD (PCP/Family) Primary Care Physician Patient Instructions: Opioids for Short-Term Treatment of Pain Add. Discharge Instructions: Take your antibiotics as prescribed. Follow-up with Dr. Morrell on Friday. Please call his office first thing Friday morning to provide him an update. You may take your Percocet up to 2 tablets every 4 hours as needed for pain as long as it does not make you too drowsy. You may wish to take a stool softener such as Colace while taking Percocet to prevent constipation. Return to care if you have worsening symptoms or develop new symptoms such as fever. Call with questions or concerns. All discharge instructions reviewed with patient and/or family. Voiced understanding. Scripts Oxycodone HCl/Acetaminophen (Percocet 5-325 mg Tablet) 1 Each Tablet 1-2 TAB PO Q4H PRN for PAIN-MODERATE (5-7) MDD 6 TABS, #20 TAB Prov: ARIAN FERMIN MD 07/28/21 Lactobacillus Acidophilus (Probiotic) 1 Each Capsule 1 EACH PO TID, #30 CAP Prov: ARIAN FERMIN MD 07/28/21 Clindamycin HCl (Clindamycin HCl) 300 Mg Capsule 300 MG PO QID, #40 CAP Prov: ARIAN FERMIN MD 07/28/21 Doxycycline Hyclate (Doxycycline Hyclate) 100 Mg Tablet 100 MG PO BID, #20 TAB 0 Refills Prov: ARIAN FERMIN MD 07/28/21 ARIAN FERMIN MD Jul 28, 2021 19:18
[2021-07-28 20:18] VITALS: BP 101/64
== END 2021-07-28 20:20 | disposition home or self-care (01) ==
LOC: EDUNIT# 16:04 → ER 16:05
DX: T81.31XA Disruption of external operation (surgical) wound, not elsewhere classified, initial encounter (principal); L76.32 Postprocedural hematoma of skin and subcutaneous tissue following other procedure; G89.18 Other acute postprocedural pain; J44.9 Chronic obstructive pulmonary disease, unspecified; I10 Essential (primary) hypertension; I48.91 Unspecified atrial fibrillation; K21.9 Gastro-esophageal reflux disease without esophagitis; E11.9 Type 2 diabetes mellitus without complications; F41.9 Anxiety disorder, unspecified; F32.9 Major depressive disorder, single episode, unspecified; Z79.01 Long term (current) use of anticoagulants; Z79.82 Long term (current) use of aspirin; Z79.84 Long term (current) use of oral hypoglycemic drugs; Z79.899 Other long term (current) drug therapy
CPT/HCPCS: 36415; 71045; 80048; 83880; 85025; 86141

== ENCOUNTER 2021-07-30 10:12 | Emergency (ER) | payer MEDICARE, OTHER ==
[~2021-07-30] VITALS: Ht 167.7 cm; Wt 72.5 kg
[~2021-07-30 10:12] MED LIST changes: +CLIN-144 PO; +DOXY100T2 PO; +LACT1CAP62 PO; +OXYC1TAB87 PO
[2021-07-30] MEDS ORDERED: ONDANSETRON 4 MG/2 ML (SDV) Z0FRAN IVP ONE (11:00)
[2021-07-30] MEDS ORDERED: NS IV 1000 ML 1,000 ML IV SCH (11:00)
[2021-07-30 12:33] LABS: ALBUMIN 3.4 GM/DL (3.2-4.5); POTASSIUM 3.3 MMOL/L (3.6-5.0)
[2021-07-30 12:35] LABS: CALCIUM 8.9 MG/DL (8.5-10.1)
[2021-07-30 12:36] LABS: TOTAL PROTEIN 6.9 GM/DL (6.4-8.2)
--- NOTE | 2021-07-30 12:36 | ED General ---
General Chief Complaint: Abdominal/GI Problems Stated Complaint: OD-DOXYCYCLINE Nursing Triage Note: PT TO RM 8 BY WHEELCHAIR WITH COMPLAINT OF NAUSEA AFTER TAKING TOO MANY DOXYCYCLINE. STATES DURING THE NIGHT, INSTEAD OF BRINGING HER TWO PAIN PILLS, HER BROUGHT HER TWO DOXYCYCLINES. Source of Information: Patient Exam Limitations: No Limitations History of Present Illness Date Seen by Provider: Jul 30, 2021 Time Seen by Provider: 10:50 Initial Comments Patient is a 76-year-old female who presents to the emergency department today with a chief complaint of nausea, abdominal discomfort. She accidentally took too many of her doxycycline that she was prescribed on Friday for cellulitis of the right knee. Patient states that her was supposed to be giving her her pain medications throughout the night, hydrocodone and inadvertently was giving her two of her doxycycline throughout the night (twice). She potentially had four extra doxycycline during the night than she was supposed to have. Patient complains of right knee pain. No fevers or chills. No chest pain or shortness of breath. She is very queasy, she has had previous hiatal hernia surgery and does not actually vomit but dry heaves. Denies any burning with urination or diarrhea. All other review of systems reviewed and negative except as stated Timing/Duration: 4-6 Hours Severity: Moderate Associated Systoms: Malaise, Nausea/Vomiting Allergies and Home Medications Allergies Coded Allergies: Cephalexin Monohydrate (Verified Allergy, Unknown, has tolerated Ancef, 08/03/19) Iodinated Contrast Media (Verified Allergy, Unknown, 10/29/19) Penicillins (Verified Allergy, Unknown, Has tolerated Ancef, 08/03/19) ciprofloxacin (Verified Allergy, Unknown, 02/25/21) iodine (Verified Allergy, Unknown, 07/08/19) linaclotide (Verified Allergy, Unknown, 07/28/19) lubiprostone (Verified Allergy, Unknown, 07/28/19) prednisolone (Verified Allergy, Unknown, 02/25/21) sulfamethoxazole (Verified Allergy, Unknown, 02/25/21) trimethoprim (Verified Allergy, Unknown, 02/25/21) venlafaxine HCl (Verified Allergy, Unknown, 07/08/19) Patient Home Medication List Home Medication List Reviewed: Yes Apixaban (Eliquis) 2.5 Mg Tablet, 2.5 MG PO BID, (Reported) Entered as Reported by: ALESHIA CONNELLY on 10/31/20 112 Aspirin (Aspirin EC) 81 Mg Tablet.dr, 81 MG PO DAILY, (Reported) Entered as Reported by: ALESHIA CONNELLY on 10/31/20 112 Atorvastatin Calcium (Atorvastatin Calcium) 20 Mg Tablet, 20 MG PO 1700, (Reported) Entered as Reported by: BRUNO GRIMALDO on 07/09/19 09 Carboxymethylcellulose Sodium (Refresh Tears) 15 Ml Drops, 2 DROPS OU PRN PRN for DRY EYES, (Reported) Entered as Reported by: ALESHIA CONNELLY on 12/15/19 1311 Carvedilol (Carvedilol) 6.25 Mg Tablet, 6.25 MG PO BID, (Reported) Entered as Reported by: BRUNO GRIMALDO on 10/15/19 09 Cholecalciferol (Vitamin D3) (Vitamin D3) 50 Mcg Tablet, 50 MCG PO DAILY, (Reported) Entered as Reported by: ROB SOLARES on 06/21/21 1425 Citalopram Hydrobromide (Citalopram HBr) 10 Mg Tablet, 10 MG PO BID, (Reported) Entered as Reported by: BRUNO GRIMALDO on 10/15/19 09 Clindamycin HCl (Clindamycin HCl) 300 Mg Capsule, 300 MG PO QID Prescribed by: ARIAN BURDEN on 07/28/211915 Docusate Sodium (Docusate Sodium) 100 Mg Capsule, 100 MG PO BID Prescribed by: JEANNE HENSON on 07/13/21 0551 Doxycycline Hyclate (Doxycycline Hyclate) 100 Mg Tablet, 100 MG PO BID Prescribed by: ARIAN BURDEN on 07/28/211915 Estrogens Conjugated (Premarin) 0.45 Mg Tab, 0.45 MG PO DAILY, (Reported) Entered as Reported by: BRUNO GRIMALDO on 07/09/19 09 Famotidine (Famotidine) 20 Mg Tablet, 20 MG PO BID, (Reported) Entered as Reported by: BRUNO GRIMALDO on 10/15/19 0954 Flecainide Acetate (Flecainide Acetate) 100 Mg Tablet, 150 MG PO BID, (Reported) Entered as Reported by: ALESHIA CONNELLY on 10/31/20 112 Furosemide (Furosemide) 20 Mg Tablet, 20 MG PO DAILY PRN for SWELLING, (Reported) Entered as Reported by: MARGARET CARDOZA on 07/08/191999 Lactobacillus Acidophilus (Probiotic) 1 Each Capsule, 1 EACH PO TID Prescribed by: ARIAN BURDEN on 07/28/211915 Lactobacillus Combo No.10 (Probiotic) 1 Each Capsule, 1 EACH PO DAILY, (Reported) Entered as Reported by: ALESHIA CONNELLY on 12/15/19 1319 Losartan Potassium (Losartan Potassium) 50 Mg Tablet, 50 MG PO 1700, (Reported) Entered as Reported by: ALESHIA CONNELLY on 10/31/20 1122 Metformin HCl (Metformin HCl ER) 500 Mg Tab.er.24h, 500 MG PO 1700 W/MEAL, (Reported) Entered as Reported by: ALESHIA CONNELLY on 10/31/20 1122 Mirtazapine (Mirtazapine) 15 Mg Tablet, 15 MG PO HS, (Reported) Entered as Reported by: SHARMAINE SIMPSON on 07/04/21 1444 Oxycodone HCl/Acetaminophen (Percocet 5-325 mg Tablet) 1 Each Tablet, 1-2 TAB PO Q4H PRN for PAIN-MODERATE (5-7) Prescribed by: ARIAN BURDEN on 07/28/211915 Oxycodone Hcl (Oxyir Tablet) 5 Mg Tab, 5-10 MG PO Q4H PRN for PAIN-SEVERE (8-10) Prescribed by: JEANNE HENSON on 07/13/21 0552 Pantoprazole Sodium (Pantoprazole Sodium) 40 Mg Tablet.dr, 40 MG PO DAILY, (Reported) Entered as Reported by: MARGARET CARDOZA on 07/08/191999 Vit A/Vit C/Vit E/Zinc/Copper (Preservision Areds Tablet) 1 Each Tablet, 2 TAB PO DAILY, (Reported) Entered as Reported by: BRUNO GRIMALDO on 07/09/19 0910 Review of Systems Review of Systems Constitutional: see HPI EENTM: no symptoms reported Respiratory: no symptoms reported Cardiovascular: no symptoms reported Gastrointestinal: nausea Genitourinary: no symptoms reported Musculoskeletal: joint pain (right knee) Skin: other (bruising and swelling right knee; mild warmth and slight erythema) Psychiatric/Neurological: No Symptoms Reported All Other Systems Reviewed Negative Unless Noted: Yes Past Kfycwjm-Ieyamn-Xgwmaw Hx Patient Social History Tobacco Use?: No Use of E-Cig and/or Vaping dev: No Substance use?: No Alcohol Use?: No Pt feels they are or have been: No Immunizations Up To Date Tetanus Booster (TDap): Unknown First/Initial COVID19 Vaccinat: OCTOBER 2020 Second COVID19 Vaccination Esa: NOVEMBER 2020 Third COVID19 Vaccination Date: NOVEMBER 17 Seasonal Allergies Seasonal Allergies: Yes Past Medical History Surgery/Hospitalization HX: 07/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, DM, AFIB Surgeries: Yes (sinus sx, hiatal hernia, hemorrhoidectomy, neck sx) Appendectomy, Bladder Surgery, Cardiac, Gallbladder, Hysterectomy Respiratory: No Pneumonia, COPD Currently Using CPAP: No Currently Using BIPAP: No Cardiac: Yes Atrial Fibrillation, Hypertension, Valvular Heart Disease Neurological: No GANG RIDER History: Menopausal Genitourinary: Yes (BLADDER PROLAPSE--S/P BLADDER SURGERIES WITH VAGINAL MESH) Bladder Infection Gastrointestinal: Yes (dysphagia) Gastroesophageal Reflux, Gastrointestinal Bleed, Chronic Constipation, Hiatal Hernia Musculoskeletal: Yes Arthritis, Rheumatoid Arthritis Endocrine: Yes Diabetes, Non-Insulin dep HEENT: No (cataracts removed) Loss of Vision: Denies Cancer: Yes Lymphoma What Type of Treatment Did You: Chemotherapy Psychosocial: Yes Anxiety, Depression Integumentary: No Blood Disorders: No Adverse Reaction/Blood Tranf: No Family Medical History No Pertinent Family Hx Physical Exam Vital Signs Vital Signs - First Documented 07/30/21 10:24 Temp 36.7 Pulse 105 Resp 20 B/P (MAP) 153/78 (103) Pulse Ox 94 O2 Delivery Room Air Capillary Refill : Less Than 3 Seconds Height, Weight, BMI Height: '" Weight: lbs. oz. kg; 25.00 BMI Method:Estimated General Appearance: WD/WN, Anxious Eyes: Bilateral Eye Normal Inspection, Bilateral Eye PERRL, Bilateral Eye EOMI HEENT: PERRL/EOMI Neck: Normal Inspection Respiratory: Lungs Clear, Normal Breath Sounds, No Accessory Muscle Use, No Respiratory Distress Cardiovascular: Regular Rate, Rhythm Gastrointestinal: Normal Bowel Sounds, Soft, Tenderness (mild diffuse tenderness, palpation increases nausea) Extremity: Normal Capillary Refill, Normal Inspection, Other (right knee swollen, ecchymotic no drainage from suture line. tender to touch) Neurologic/Psychiatric: Alert, Oriented x3, No Motor/Sensory Deficits, Normal Mood/Affect Skin: Normal Color, Warm/Dry Progress/Results/Core Measures Suspected Sepsis SIRS Temperature: Pulse: 105 Respiratory Rate: 20 Blood Pressure 153 /78 Mean: 103 Laboratory Tests 07/30/21 12:10: Creatinine 0.72, Total Bilirubin 0.7 Results/Orders Lab Results Laboratory Tests Test 07/30/21 12:10 Range/Units Sodium Level 139 135-145 MMOL/L Potassium Level 3.3 L 3.6-5.0 MMOL/L Chloride Level 101 98-107 MMOL/L Carbon Dioxide Level 24 21-32 MMOL/L Anion Gap 14 5-14 MMOL/L Blood Urea Nitrogen 8 7-18 MG/DL Creatinine 0.72 0.60-1.30 MG/DL Estimat Glomerular Filtration Rate 78 BUN/Creatinine Ratio 11 Glucose Level 114 H 70-105 MG/DL Calcium Level 8.9 8.5-10.1 MG/DL Corrected Calcium 9.4 8.5-10.1 MG/DL Total Bilirubin 0.7 0.1-1.0 MG/DL Aspartate Amino Transf (AST/SGOT) 20 5-34 U/L Alanine Aminotransferase (ALT/SGPT) 10 0-55 U/L Alkaline Phosphatase 202 H 40-136 U/L Total Protein 6.9 6.4-8.2 GM/DL Albumin 3.4 3.2-4.5 GM/DL My Orders Orders - KEVIN WASHBURN MD Ed Iv/Invasive Line Start (07/30/21 11:00) Comprehensive Metabolic Panel (07/30/21 11:00) Ondansetron Injection (Zofran Injectio (07/30/21 11:00) Ns Iv 1000 Ml (Sodium Chloride 0.9%) (07/30/21 11:00) Fentanyl Inj (Sublimaze Injection) (07/30/21 13:30) Metoclopramide Injection (Reglan Injecti (07/30/21 14:00) Diphenhydramine Injection (Benadryl Inje (07/30/21 14:00) Famotidine Injection (Pepcid Injection) (07/30/21 14:00) Medications Given in ED Current Medications Medications Dose Ordered Sig/Dino Route Start Time Stop Time Status Last Admin Dose Admin Diphenhydramine HCl 25 mg ONCE ONCE IVP 07/30/21 14:00 07/30/21 14:01 DC 07/30/21 14:07 25 MG Famotidine 20 mg ONCE ONCE IVP 07/30/21 14:00 07/30/21 14:01 DC 07/30/21 14:07 20 MG Fentanyl Citrate 25 mcg ONCE ONCE IVP 07/30/21 13:30 07/30/21 13:31 DC 07/30/21 13:47 25 MCG Metoclopramide HCl 5 mg ONCE ONCE IVP 07/30/21 14:00 07/30/21 14:01 DC 07/30/21 14:07 5 MG Ondansetron HCl 4 mg ONCE ONCE IVP 07/30/21 11:00 07/30/21 11:02 DC 07/30/21 12:18 4 MG Vital Signs/I&O 07/30/21 10:24 Temp 36.7 Pulse 105 Resp 20 B/P (MAP) 153/78 (103) Pulse Ox 94 O2 Delivery Room Air Capillary Refill : Less Than 3 Seconds Blood Pressure Mean: 103 Progress Note #1: Time: 12:36 Progress Note Patient just received, within the last 15 minutes or so, her zofran and fluids. She is continuing to dry heave. Reviewed side effects of the doxycycline and GI upset is predominant. WIll monitor to see if she has resolution of nausea and vomiting. labs pending. Progress Note #2: Time: 13:51 Progress Note Patient remains nauseated. Vital signs are stable. She just got her fentanyl. We will give her a little Benadryl and Reglan as well as some Pepcid IV. Continue to monitor for another 30 minutes. Progress Note #3: Time: 14:38 Progress Note Patient states after medications, Reglan, Pepcid, Benadryl she believes that her nausea has calmed down. Her pain is controlled in her right knee with the fentanyl. She is requesting to be discharged home. Her vital signs remained stable. I spoke with Dr. Morrell's office and made her an appointment tomorrow at 245. I have advised her to hold off on all antibiotics until she sees him. She verbalizes understanding. She is comfortable with this plan of care. Return precautions have been given. Departure Impression Primary Impression: Accidental overdose Qualified Codes: T50.901A - Poisoning by unspecified drugs, medicaments and biological substances, accidental (unintentional), initial encounter Additional Impression: Medication adverse effect Qualified Codes: T50.905A - Adverse effect of unspecified drugs, medicaments and biological substances, initial encounter Disposition: 01 HOME, SELF-CARE Condition: Improved Departure-Patient Inst. Decision time for Depature: 14:39 Referrals: LITZY SHAFER MD (PCP/Family) Primary Care Physician GEGE MORRELL MD Patient Instructions: Adverse Drug Reactions, Adult ED Add. Discharge Instructions: Do not take any of your antibiotic medications today or tomorrow. You will want to give your stomach time to rest. I have called and made an appointment with Dr. Morrell for you tomorrow in his office at [facility]. Please bring your photo ID as well as your insurance card to this appointment. You can continue to take your pain medications, the Percocet also known as Oxycodone/acetaminophen every 6 hours as needed for pain. Use your nausea medications every 6-8 hours as needed. Follow a clear liquid diet today and slowly advance your diet as tolerated. Return to the ER for any worsening pain, vomiting, fever or any other emergent, concerning symptoms. Copy Copies To 1: LITZY SHAFER MD Copies To 2: GEGE MORRELL MD, KATHRYN M MD Jul 30, 2021 12:36
[2021-07-30 12:38] LABS: BILIRUBIN,TOTAL 0.7 MG/DL (0.1-1.0)
[2021-07-30 12:39] LABS: CREATININE SERUM 0.72 MG/DL (0.60-1.30)
[2021-07-30] MEDS ORDERED: fentaNYL INJ 100 MCG/2 ML AMP IVP ONE (13:30)
[2021-07-30] MEDS ORDERED: METOCLOPRAMIDE INJ 10 MG/2 ML (REGLAN) IVP ONE (14:00)
[2021-07-30] MEDS ORDERED: FAMOTIDINE 20MG/2ML IV (PEPCID) IVP ONE (14:00)
[2021-07-30] MEDS ORDERED: diphenhydrAMINE 50 MG/ML INJ (BENADRYL) IVP ONE (14:00)
[2021-07-30 14:58] VITALS: BP 150/81
== END 2021-07-30 14:58 | disposition home or self-care (01) ==
LOC: EDUNIT# 10:12 → ER 10:14
DX: T36.4X1A Poisoning by tetracyclines, accidental (unintentional), initial encounter (principal); J44.9 Chronic obstructive pulmonary disease, unspecified; I10 Essential (primary) hypertension; E11.9 Type 2 diabetes mellitus without complications; F41.9 Anxiety disorder, unspecified; F32.9 Major depressive disorder, single episode, unspecified; K21.9 Gastro-esophageal reflux disease without esophagitis; I48.91 Unspecified atrial fibrillation; Z79.84 Long term (current) use of oral hypoglycemic drugs; Z79.899 Other long term (current) drug therapy; Z79.82 Long term (current) use of aspirin; Z79.01 Long term (current) use of anticoagulants
CPT/HCPCS: 36415; 80053

== ENCOUNTER 2021-08-01 11:02 | Inpatient (IN) | payer MEDICARE, OTHER ==
[~2021-08-01] VITALS: Ht 167 cm; Wt 74.7 kg
[2021-08-01] MEDS ORDERED: LACTATED RINGERS 1,000 ML IV STA (11:39)
[2021-08-01] MEDS ORDERED: ONDANSETRON 4 MG/2 ML (SDV) Z0FRAN IVP ONE (11:45)
--- NOTE | 2021-08-01 11:50 | ED General ---
General Chief Complaint: Abdominal/GI Problems Stated Complaint: HENDERSON,NAUSEA Nursing Triage Note: ARRIVED VIA AMB TO ROOM 05 WITH COMPLAINTS OF CONTINUED DRY HEAVES AND HEADACHE. STATES THIS IS HER 4TH VISIT HERE AND WAS SEEN BY HER DR YESTERDAY. Source of Information: Patient, Family Exam Limitations: No Limitations History of Present Illness Date Seen by Provider: Aug 01, 2021 Time Seen by Provider: 11:20 Initial Comments Here with report of complaint of of continued dry heaves and headache. She has been seen multiple times over the last several days here and also seen by her surgeon, Dr. ARCE, for right knee concerns. She did have right knee replacement in early July and does have redness and some drainage there. She is currently on 2 antibiotics of which one is doxycycline. She does not know the other. She is on pain medicines for this but is taking stool softeners. She reports normal bowel movements. She denies dysuria or frequency. Denies fever. She has been vaccinated with Moderna and October and November for Covid. She has not had the booster. No known contact with Covid. She is taking prescribed ondansetron every 6 hours with some effect that lasts for a few hours and then wears off. She states anytime she drinks anything it just hits her stomach and then she vomits. Timing/Duration: 1 Week, Getting Worse Severity: Moderate Associated Systoms: No Cough, No Fever/Chills; Headaches, Malaise, Nausea/Vomiting; No Shortness of Air; Weakness Allergies and Home Medications Allergies Coded Allergies: Cephalexin Monohydrate (Verified Allergy, Unknown, has tolerated Ancef, 08/03/19) Iodinated Contrast Media (Verified Allergy, Unknown, 10/29/19) Penicillins (Verified Allergy, Unknown, Has tolerated Ancef, 08/03/19) ciprofloxacin (Verified Allergy, Unknown, 02/25/21) iodine (Verified Allergy, Unknown, 07/08/19) linaclotide (Verified Allergy, Unknown, 07/28/19) lubiprostone (Verified Allergy, Unknown, 07/28/19) prednisolone (Verified Allergy, Unknown, 02/25/21) sulfamethoxazole (Verified Allergy, Unknown, 02/25/21) trimethoprim (Verified Allergy, Unknown, 02/25/21) venlafaxine HCl (Verified Allergy, Unknown, 07/08/19) Patient Home Medication List Home Medication List Reviewed: Yes Apixaban (Eliquis) 2.5 Mg Tablet, 2.5 MG PO BID, (Reported) Entered as Reported by: ALESHIA CONNELLY on 10/31/20 1122 Aspirin (Aspirin EC) 81 Mg Tablet.dr, 81 MG PO DAILY, (Reported) Entered as Reported by: ALESHIA CONNELLY on 10/31/20 1122 Atorvastatin Calcium (Atorvastatin Calcium) 20 Mg Tablet, 20 MG PO 1700, (Reported) Entered as Reported by: BRUNO GRIMALDO on 07/09/19 0910 Carboxymethylcellulose Sodium (Refresh Tears) 15 Ml Drops, 2 DROPS OU PRN PRN for DRY EYES, (Reported) Entered as Reported by: ALESHIA CONNELLY on 12/15/19 1311 Carvedilol (Carvedilol) 6.25 Mg Tablet, 6.25 MG PO BID, (Reported) Entered as Reported by: BRUNO GRIMALDO on 10/15/19 0954 Cholecalciferol (Vitamin D3) (Vitamin D3) 50 Mcg Tablet, 50 MCG PO DAILY, (Reported) Entered as Reported by: ROB SOLARES on 06/21/21 1425 Citalopram Hydrobromide (Citalopram HBr) 10 Mg Tablet, 10 MG PO BID, (Reported) Entered as Reported by: BRUNO GRIMALDO on 10/15/19 0954 Clindamycin HCl (Clindamycin HCl) 300 Mg Capsule, 300 MG PO QID Prescribed by: ARIAN BURDEN on 07/28/211915 Docusate Sodium (Docusate Sodium) 100 Mg Capsule, 100 MG PO BID Prescribed by: JEANNE HENSON on 07/13/21 0551 Doxycycline Hyclate (Doxycycline Hyclate) 100 Mg Tablet, 100 MG PO BID Prescribed by: ARIAN BURDEN on 07/28/211915 Estrogens Conjugated (Premarin) 0.45 Mg Tab, 0.45 MG PO DAILY, (Reported) Entered as Reported by: BRUNO GRIMALDO on 07/09/19 0910 Famotidine (Famotidine) 20 Mg Tablet, 20 MG PO BID, (Reported) Entered as Reported by: BRUNO GRIMALDO on 10/15/19 09 Flecainide Acetate (Flecainide Acetate) 100 Mg Tablet, 150 MG PO BID, (Reported) Entered as Reported by: ALESHIA CONNELLY on 10/31/20 112 Furosemide (Furosemide) 20 Mg Tablet, 20 MG PO DAILY PRN for SWELLING, (Reporte d) Entered as Reported by: MARGARET CARDOZA on 07/08/191999 Lactobacillus Acidophilus (Probiotic) 1 Each Capsule, 1 EACH PO TID Prescribed by: ARIAN BURDEN on 07/28/211915 Lactobacillus Combo No.10 (Probiotic) 1 Each Capsule, 1 EACH PO DAILY, (Reported) Entered as Reported by: ALESHIA CONNELLY on 12/15/19 1319 Losartan Potassium (Losartan Potassium) 50 Mg Tablet, 50 MG PO 1700, (Reported) Entered as Reported by: ALESHIA CONNELLY on 10/31/20 112 Metformin HCl (Metformin HCl ER) 500 Mg Tab.er.24h, 500 MG PO 1700 W/MEAL, (Reported) Entered as Reported by: ALESHIA CONNELLY on 10/31/20 112 Mirtazapine (Mirtazapine) 15 Mg Tablet, 15 MG PO HS, (Reported) Entered as Reported by: SHARMAINE SIMPSON on 07/04/21 1444 Oxycodone HCl/Acetaminophen (Percocet 5-325 mg Tablet) 1 Each Tablet, 1-2 TAB PO Q4H PRN for PAIN-MODERATE (5-7) Prescribed by: ARIAN BURDEN on 07/28/211915 Oxycodone Hcl (Oxyir Tablet) 5 Mg Tab, 5-10 MG PO Q4H PRN for PAIN-SEVERE (8-10) Prescribed by: JEANNE HENSON on 07/13/21 0552 Pantoprazole Sodium (Pantoprazole Sodium) 40 Mg Tablet.dr, 40 MG PO DAILY, (Reported) Entered as Reported by: MARGARET CARDOZA on 07/08/191999 Vit A/Vit C/Vit E/Zinc/Copper (Preservision Areds Tablet) 1 Each Tablet, 2 TAB PO DAILY, (Reported) Entered as Reported by: BRUNO GRIMALDO on 07/09/19 0910 Review of Systems Review of Systems Constitutional: see HPI; No chills, No fever EENTM: No nose congestion, No throat pain Respiratory: No cough, No short of breath Cardiovascular: No chest pain; edema (Right leg) Gastrointestinal: No abdominal pain; nausea, vomiting Genitourinary: no symptoms reported, see HPI Musculoskeletal: joint pain, joint swelling, muscle pain Skin: lesions (Surgical wound to right anterior knee with erythema); No rash Psychiatric/Neurological: Headache, Weakness All Other Systems Reviewed Negative Unless Noted: Yes Past Fxphkbd-Jghpms-Wkueib Hx Patient Social History Tobacco Use?: No Substance use?: No Alcohol Use?: No Immunizations Up To Date Tetanus Booster (TDap): Unknown First/Initial COVID19 Vaccinat: OCTOBER 2020 Second COVID19 Vaccination Esa: 12/20 Third COVID19 Vaccination Date: NOVEMBER 17 COVID19 Vaccine Intensive Care Anaesthetist: OOgave Seasonal Allergies Seasonal Allergies: Yes Past Medical History Surgery/Hospitalization HX: 07/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, DM, AFIB Surgeries: Yes (sinus sx, hiatal hernia, hemorrhoidectomy, neck sx) Appendectomy, Bladder Surgery, Cardiac, Gallbladder, Hysterectomy, Orthopedic (Right knee) Respiratory: No Pneumonia, COPD Currently Using CPAP: No Currently Using BIPAP: No Cardiac: Yes Atrial Fibrillation, Hypertension, Valvular Heart Disease Neurological: No CONDUIT CLEANER History: Menopausal Genitourinary: Yes (BLADDER PROLAPSE--S/P BLADDER SURGERIES WITH VAGINAL MESH) Bladder Infection Gastrointestinal: Yes (dysphagia) Gastroesophageal Reflux, Gastrointestinal Bleed, Chronic Constipation, Hiatal Hernia Musculoskeletal: Yes Arthritis, Rheumatoid Arthritis Endocrine: Yes Diabetes, Non-Insulin dep HEENT: No (cataracts removed) Loss of Vision: Denies Cancer: Yes Lymphoma What Type of Treatment Did You: Chemotherapy Psychosocial: Yes Anxiety, Depression Integumentary: No Blood Disorders: No Adverse Reaction/Blood Tranf: No Family Medical History Reviewed Nursing Family Hx No Pertinent Family Hx Physical Exam Vital Signs Vital Signs - First Documented 08/01/21 11:10 Temp 36.1 Pulse 72 Resp 16 B/P (MAP) 141/62 (88) Pulse Ox 92 O2 Delivery Room Air Capillary Refill : Less Than 3 Seconds Height, Weight, BMI Height: '" Weight: lbs. oz. kg; 25.00 BMI Method:Estimated General Appearance: No Apparent Distress, WD/WN HEENT: PERRL/EOMI, Pharynx Normal Neck: Non Tender, Supple Respiratory: Lungs Clear, Normal Breath Sounds Cardiovascular: Regular Rate, Rhythm, No Murmur Gastrointestinal: Non Tender, Soft Back: Normal Inspection, No CVA Tenderness, No Vertebral Tenderness Extremity: Inflammation, Pelvis Stable, Swelling (Right leg) Neurologic/Psychiatric: Alert, Oriented x3 Skin: Warm/Dry, Other (Erythema and tenderness to the area of the right knee especially medial aspect near surgical wound and medially. No foul-smelling drainage noted. Swelling noted throughout the right leg.) Progress/Results/Core Measures Suspected Sepsis SIRS Temperature: Pulse: 72 Respiratory Rate: 16 Laboratory Tests 08/01/21 11:56: White Blood Count 7.8 Blood Pressure 141 /62 Mean: 88 Laboratory Tests 08/01/21 11:56: Creatinine 0.72, Platelet Count 361, Total Bilirubin 0.8 Results/Orders Lab Results Laboratory Tests Test 08/01/21 11:56 Range/Units White Blood Count 7.8 4.3-11.0 10^3/uL Red Blood Count 3.46 L 3.80-5.11 10^6/uL Hemoglobin 9.8 L 11.5-16.0 g/dL Hematocrit 33 L 35-52 % Mean Corpuscular Volume 95 80-99 fL Mean Corpuscular Hemoglobin 28 25-34 pg Mean Corpuscular Hemoglobin Concent 30 L 32-36 g/dL Red Cell Distribution Width 19.5 H 10.0-14.5 % Platelet Count 361 130-400 10^3/uL Mean Platelet Volume 9.0 9.0-12.2 fL Immature Granulocyte % (Auto) 0 % Neutrophils (%) (Auto) 72 42-75 % Lymphocytes (%) (Auto) 11 L 12-44 % Monocytes (%) (Auto) 13 H 0-12 % Eosinophils (%) (Auto) 3 0-10 % Basophils (%) (Auto) 1 0-10 % Neutrophils # (Auto) 5.6 1.8-7.8 10^3/uL Lymphocytes # (Auto) 0.8 L 1.0-4.0 10^3/uL Monocytes # (Auto) 1.0 0.0-1.0 10^3/uL Eosinophils # (Auto) 0.2 0.0-0.3 10^3/uL Basophils # (Auto) 0.1 0.0-0.1 10^3/uL Immature Granulocyte # (Auto) 0.0 0.0-0.1 10^3/uL Sodium Level 139 135-145 MMOL/L Potassium Level 3.6 3.6-5.0 MMOL/L Chloride Level 103 98-107 MMOL/L Carbon Dioxide Level 22 21-32 MMOL/L Anion Gap 14 5-14 MMOL/L Blood Urea Nitrogen 9 7-18 MG/DL Creatinine 0.72 0.60-1.30 MG/DL Estimat Glomerular Filtration Rate 78 BUN/Creatinine Ratio 13 Glucose Level 115 H 70-105 MG/DL Calcium Level 8.4 L 8.5-10.1 MG/DL Corrected Calcium 9.3 8.5-10.1 MG/DL Total Bilirubin 0.8 0.1-1.0 MG/DL Aspartate Amino Transf (AST/SGOT) 25 5-34 U/L Alanine Aminotransferase (ALT/SGPT) 10 0-55 U/L Alkaline Phosphatase 186 H 40-136 U/L Troponin I < 0.028 <0.028 NG/ML C-Reactive Protein High Sensitivity 7.95 H 0.00-0.50 MG/DL B-Type Natriuretic Peptide 575.3 H <100.0 PG/ML Total Protein 6.1 L 6.4-8.2 GM/DL Albumin 2.9 L 3.2-4.5 GM/DL My Orders Orders - PETTY MORLEY MD Cbc With Automated Diff (08/01/21 11:39) Comprehensive Metabolic Panel (08/01/21 11:39) Hs C Reactive Protein (08/01/21 11:39) Ondansetron Injection (Zofran Injectio (08/01/21 11:45) Lactated Ringers (Lr 1000 Ml Iv Solution (08/01/21 11:39) Ed Iv/Invasive Line Start (08/01/21 11:39) Chest 1 View, Ap/Pa Only (08/01/21 13:26) Ekg Tracing (08/01/21 14:14) Bnp Clark (08/01/21 14:14) Troponin I Twila (08/01/21 14:14) Promethazine Injection (Phenergan Injec (08/01/21 14:18) Lasix 40 Mg Iv (08/01/21 15:30) Medications Given in ED Current Medications Medications Dose Ordered Sig/Dino Route Start Time Stop Time Status Last Admin Dose Admin Ondansetron HCl 4 mg ONCE ONCE IVP 08/01/21 11:45 08/01/21 11:46 DC 08/01/21 11:53 4 MG Vital Signs/I&O 08/01/21 11:10 Temp 36.1 Pulse 72 Resp 16 B/P (MAP) 141/62 (88) Pulse Ox 92 O2 Delivery Room Air Capillary Refill : Less Than 3 Seconds Blood Pressure Mean: 88 Progress Note : Progress Note Seen and evaluated. IV, labs, LR 1 L bolus and Zofran 4 mg IV ordered. Monitor patient. Previous visits reviewed and we will use labs for comparison. Ultrasound done on 07/28/2021 shows no DVT. 1335: Fluids are complete. Labs reviewed. White count normal but CRP still mildly elevated. Patient is noted to be hypoxic with O2 sats in the upper 80s at times. This is worsened with any activity. We will go ahead and get chest x-ray. Patient is on Eliquis. We will place her on oxygen and give of 6.25 mg Phenergan IV for persistent nausea. She is dry heaving now. Monitor patient. 1415: We will go ahead and check for heart failure due to x-ray findings. EKG, BNP and troponin added. Monitor patient. 1530: I did discuss the case with Dr. Alba. He accepts patient for admission, observation status for no acute, new onset heart failure. I will consult cardiology. Dr. Alba will write orders. Lasix 40 mg IV ordered. Discussed with patient who agrees with plan. She is doing much better while on oxygen with decreased nausea. ECG Initial ECG Impression Date: Aug 01, 2021 Initial ECG Impression Time: 14:41 Initial ECG Rate: 75 Initial ECG Rhythm: A Fib/Flutter Initial ECG Impression: Atrial Fibrillation Comment Atrial fibrillation with rate of 75. Normal axis. No evidence of ST elevation LA. Similar to previous of 06/21/2021. Interpreted by me. Diagnostic Imaging Diagonstic Imaging: Xray Plain Films/CT/US/NM/MRI: chest Comments [facility] [place], [place] NAME: ASAF TA [facility] REC#: [id number] PT STATUS: REG ER : 1945 PHYSICIAN: PETTY MORLEY MD ADMIT DATE: 08/01/21/ER Signed Date of Exam:08/01/21 CHEST 1 VIEW, AP/PA ONLY INDICATION: Shortness of breath. Frontal chest obtained at 1:37 p.m. is compared to 07/28/2021. FINDINGS: There is cardiomegaly with central vascular congestion and mild interstitial edema. The edema has slightly worsened compared to the prior study. There is no change in prominent right pleural effusion. There is no pneumothorax. IMPRESSION: Cardiomegaly and central vascular congestion with interstitial edema, slightly worsened compared to the prior study. There is no change in right pleural effusion. Dictated by: Dictated on workstation # [id number] Dict: 08/01/21 1359 Trans: 08/01/21 1422 [id number] Interpreted by: TRENA MOODY MD Electronically signed by: TRENA MOODY MD 08/01/21 1422 Departure Communication (Admissions) Time/Spoke to Admitting Phy: 15:30 Time/Spoke to Consulting Phy: 15:35 Impression Primary Impression: Acute heart failure Qualified Codes: I50.9 - Heart failure, unspecified Additional Impressions: Hypoxia Nausea and vomiting Qualified Codes: R11.2 - Nausea with vomiting, unspecified Disposition: ADMITTED INPATIENT Condition: Stable Admissions Decision to Admit Reason: Admit from ER (General) Decision to Admit/Date: Aug 01, 2021 Time/Decision to Admit Time: 15:30 Departure-Patient Inst. Referrals: LITZY SHAFER MD (PCP/Family) Primary Care Physician PETTY MORLEY MD Aug 01, 2021 11:50
[2021-08-01 12:02] LABS: BASOPHILS # (AUTO) 0.1 10^3/uL (0.0-0.1); BASOPHILS % (AUTO) 1 % (0-10); EOSINOPHILS # (AUTO) 0.2 10^3/uL (0.0-0.3); EOSINOPHILS % (AUTO) 3 % (0-10); HEMATOCRIT 33 % (35-52); HEMOGLOBIN 9.8 g/dL (11.5-16.0); LYMPHOCYTES # (AUTO) 0.8 10^3/uL (1.0-4.0); LYMPHOCYTES % (AUTO) 11 % (12-44); MEAN CORPUSCULAR HEMOGLOBIN 28 pg (25-34); MEAN CORPUSCULAR HGB CONC 30 g/dL (32-36); MEAN CORPUSCULAR VOLUME 95 fL (80-99); MONOCYTES % (AUTO) 13 % (0-12); NEUTROPHILS # (AUTO) 5.6 10^3/uL (1.8-7.8); NEUTROPHILS % (AUTO) 72 % (42-75); PLATELET COUNT 361 10^3/uL (130-400); WHITE BLOOD COUNT 7.8 10^3/uL (4.3-11.0)
[2021-08-01 12:09] LABS: ALBUMIN 2.9 GM/DL (3.2-4.5); POTASSIUM 3.6 MMOL/L (3.6-5.0)
[2021-08-01 12:10] LABS: CALCIUM 8.4 MG/DL (8.5-10.1)
[2021-08-01 12:12] LABS: TOTAL PROTEIN 6.1 GM/DL (6.4-8.2)
[2021-08-01 12:13] LABS: BILIRUBIN,TOTAL 0.8 MG/DL (0.1-1.0)
[2021-08-01 12:15] LABS: CREATININE SERUM 0.72 MG/DL (0.60-1.30)
--- NOTE | 2021-08-01 14:05 | Diagnostic Imaging Report ---
INDICATION: Shortness of breath. Frontal chest obtained at 1:37 p.m. is compared to 07/28/2021. FINDINGS: There is cardiomegaly with central vascular congestion and mild interstitial edema. The edema has slightly worsened compared to the prior study. There is no change in prominent right pleural effusion. There is no pneumothorax. IMPRESSION: Cardiomegaly and central vascular congestion with interstitial edema, slightly worsened compared to the prior study. There is no change in right pleural effusion. Dictated by: Dictated on workstation # [id number]
[2021-08-01] MEDS ORDERED: PROMETHAZINE INJ 25 MG/ML (PHENERGAN) AMP IVP STA (14:18)
[2021-08-01] MEDS ORDERED: FUROSEMIDE 40 MG/4 ML INJ (LASIX) IV STA (15:30)
[2021-08-01] MEDS ORDERED: KCL 10 MEQ TAB (MICRO K) PO ONE (15:45)
[2021-08-01] MEDS ORDERED: HYDROcodone/APAP 5 MG/325 MG (LORTAB) TAB PO ONE (15:45)
--- NOTE | 2021-08-01 15:56 | Consultation-Cardiology ---
HPI-Cardiology Cardiology Consultation: Date of Consultation 08/01/21 Time Seen by a Provider: 16:00 Date of Admission 08-01-21 Attending Physician Admitting Physician Aakash Santos MD Consulting Physician Eric Davis MD Primary Sliver Chopper: Dr. Muhammad ([facility]) HPI: Chief Complaint: Progressive dyspnea Ms. Hawkins is a 76 yr old female admitted to 414 from the ED with progressive dyspnea over the course of the last few weeks. She reports freq episodes of palpitations which she states can persist for several hours and then gradually resolve. She denies any CP. She denies any syncope or near syncope. She reports increasing bilat LE swelling, R>L. She reports freq nausea and dry heaves. She reports chills, but no fever. She reports progressive weakness. She reports she has been on antibiotic tx for cellulitis to her right knee. She reports poor intake. She denies missing any medications though. No diarrhea. Review of Systems-Cardiology Review of Systems Constitutional: chills; No fever; malaise Eyes: No vision change Ears/Nose/Throat: No epistaxis, No recent hearing loss Respiratory: As described under HPI Cardiovascular: As described under HPI Gastrointestinal: As described under HPI Genitourinary: No dysuria, No hematuria Musculoskeletal: no symptoms reported Skin: As described under HPI Hematologic: anemia All Other Systems Reviewed Negative Unless Noted: Yes [id number] Hx Patient Social History 2nd Hand Smoke Exposure: No Have you traveled recently?: No Alcohol Use?: No Immunizations Up To Date Tetanus Booster (TDap): Unknown Date of Pneumonia Vaccine: Oct 02, 2015 Date of Influenza Vaccine: Jun 08, 2021 Past Medical History PMH As described under Assessment. Family Medical History Family Medical History: Does not report fam h/o early CAD or SCD Allergies and Home Medications Allergies Coded Allergies: Cephalexin Monohydrate (Verified Allergy, Unknown, has tolerated Ancef, 08/03/19) Iodinated Contrast Media (Verified Allergy, Unknown, 10/29/19) Penicillins (Verified Allergy, Unknown, Has tolerated Ancef, 08/03/19) ciprofloxacin (Verified Allergy, Unknown, 02/25/21) iodine (Verified Allergy, Unknown, 07/08/19) linaclotide (Verified Allergy, Unknown, 07/28/19) lubiprostone (Verified Allergy, Unknown, 07/28/19) prednisolone (Verified Allergy, Unknown, 02/25/21) sulfamethoxazole (Verified Allergy, Unknown, 02/25/21) trimethoprim (Verified Allergy, Unknown, 02/25/21) venlafaxine HCl (Verified Allergy, Unknown, 07/08/19) Patient Home Medication List Apixaban (Eliquis) 2.5 Mg Tablet, 2.5 MG PO BID, (Reported) Entered as Reported by: ALESHIA CONNELLY on 10/31/20 1122 Aspirin (Aspirin EC) 81 Mg Tablet.dr, 81 MG PO DAILY, (Reported) Entered as Reported by: ALESHIA CONNELLY on 10/31/20 1122 Atorvastatin Calcium (Atorvastatin Calcium) 20 Mg Tablet, 20 MG PO 1700, (Reported) Entered as Reported by: BRUNO GRIMALDO on 07/09/19 0910 Carboxymethylcellulose Sodium (Refresh Tears) 15 Ml Drops, 2 DROPS OU PRN PRN for DRY EYES, (Reported) Entered as Reported by: ALESHIA CONNELLY on 12/15/19 1311 Carvedilol (Carvedilol) 6.25 Mg Tablet, 6.25 MG PO BID, (Reported) Entered as Reported by: BRUNO GRIMALDO on 10/15/19 0954 Cholecalciferol (Vitamin D3) (Vitamin D3) 50 Mcg Tablet, 50 MCG PO DAILY, (Reported) Entered as Reported by: ROB SOLARES on 06/21/21 1425 Citalopram Hydrobromide (Citalopram HBr) 10 Mg Tablet, 10 MG PO BID, (Reported) Entered as Reported by: BRUNO GRIMALDO on 10/15/19 0954 Clindamycin HCl (Clindamycin HCl) 300 Mg Capsule, 300 MG PO QID Prescribed by: ARIAN BURDEN on 07/28/211915 Docusate Sodium (Docusate Sodium) 100 Mg Capsule, 100 MG PO BID Prescribed by: JEANNE HENSON on 07/13/21 0551 Doxycycline Hyclate (Doxycycline Hyclate) 100 Mg Tablet, 100 MG PO BID Prescribed by: ARIAN BURDEN on 07/28/211915 Estrogens Conjugated (Premarin) 0.45 Mg Tab, 0.45 MG PO DAILY, (Reported) Entered as Reported by: BRUNO GRIMALDO on 07/09/19 0910 Famotidine (Famotidine) 20 Mg Tablet, 20 MG PO BID, (Reported) Entered as Reported by: BRUNO GRIMALDO on 10/15/19 0954 Flecainide Acetate (Flecainide Acetate) 100 Mg Tablet, 150 MG PO BID, (Reported) Entered as Reported by: ALESHIA CONNELLY on 10/31/20 112 Furosemide (Furosemide) 20 Mg Tablet, 20 MG PO DAILY PRN for SWELLING, (Reported) Entered as Reported by: MARGARET CARDOZA on 07/08/191999 Lactobacillus Acidophilus (Probiotic) 1 Each Capsule, 1 EACH PO TID Prescribed by: ARIAN BURDEN on 07/28/211915 Lactobacillus Combo No.10 (Probiotic) 1 Each Capsule, 1 EACH PO DAILY, (Reported) Entered as Reported by: ALESHIA CONNELLY on 12/15/19 1319 Losartan Potassium (Losartan Potassium) 50 Mg Tablet, 50 MG PO 1700, (Reported) Entered as Reported by: ALESHIA CONNELLY on 10/31/20 112 Metformin HCl (Metformin HCl ER) 500 Mg Tab.er.24h, 500 MG PO 1700 W/MEAL, (Reported) Entered as Reported by: ALESHIA CONNELLY on 10/31/20 112 Mirtazapine (Mirtazapine) 15 Mg Tablet, 15 MG PO HS, (Reported) Entered as Reported by: SHARMAINE SIMPSON on 07/04/21 1444 Oxycodone HCl/Acetaminophen (Percocet 5-325 mg Tablet) 1 Each Tablet, 1-2 TAB PO Q4H PRN for PAIN-MODERATE (5-7) Prescribed by: ARIAN BURDEN on 07/28/211915 Oxycodone Hcl (Oxyir Tablet) 5 Mg Tab, 5-10 MG PO Q4H PRN for PAIN-SEVERE (8-10) Prescribed by: JEANNE HENSON on 07/13/21 0552 Pantoprazole Sodium (Pantoprazole Sodium) 40 Mg Tablet.dr, 40 MG PO DAILY, (R eported) Entered as Reported by: MARGARET CARDOZA on 07/08/191999 Vit A/Vit C/Vit E/Zinc/Copper (Preservision Areds Tablet) 1 Each Tablet, 2 TAB PO DAILY, (Reported) Entered as Reported by: BRUNO GRIMALDO on 07/09/19 0910 Physical Exam-Cardiology Physical Exam Vital Signs/I&O 08/01/21 08/02/21 08/02/21 08/02/21 23:24 00:00 01:00 04:45 Temp 36.4 35.8 Pulse 65 60 62 Resp 20 17 B/P (MAP) 127/60 (82) 132/62 (85) Pulse Ox 91 96 O2 Delivery Nasal Cannula Nasal Cannula Nasal Cannula O2 Flow Rate 3.00 3.00 3.00 08/02/21 08/02/21 07:00 07:30 Temp 36.2 Pulse 77 77 Resp 20 B/P (MAP) 183/88 (119) Pulse Ox 98 O2 Delivery Nasal Cannula O2 Flow Rate 3.00 08/02/21 00:00 Intake Total 100 ml Output Total 800 ml Balance -700 ml Capillary Refill : Less Than 3 Seconds Constitutional: AAO x 3, well-developed, well-nourished HEENT: PERRL, hearing is well preserved, oral hygience is good Neck: No carotid bruit; carotid pulses are 2 + bilaterally Respiratory: No accessory muscle use, No respiratory distress; chest expansion is symmetric, chest is bilaterally symmetric, other (diminished lower lobes bilat) Cardiovascular: irregularly irregular; No JVD; S1 and S2 Gastrointestinal: No tender; soft, round, audible bowel sounds, other (frequent dry heaving during exam) Extremities: other (Bilat LE swelling knee to toes, pitting, R>L) Neurologic/Psychiatric: grossly intact (moves all extremities) Skin: other (Right knee surgical incision with redness, warmth, brusing, swelling, edges approx, no drainage noted) Data Review Labs Laboratory Tests 08/01/21 11:56: White Blood Count 7.8, Red Blood Count 3.46L, Hemoglobin 9.8L, Hematocrit 33L, Mean Corpuscular Volume 95, Mean Corpuscular Hemoglobin 28, Mean Corpuscular Hemoglobin Concent 30L, Red Cell Distribution Width 19.5H, Platelet Count 361, Mean Platelet Volume 9.0, Immature Granulocyte % (Auto) 0, Neutrophils (%) (Auto) 72, Lymphocytes (%) (Auto) 11L, Monocytes (%) (Auto) 13H, Eosinophils (%) (Auto) 3, Basophils (%) (Auto) 1, Neutrophils # (Auto) 5.6, Lymphocytes # (Auto) 0.8L, Monocytes # (Auto) 1.0, Eosinophils # (Auto) 0.2, Basophils # (Auto) 0.1, Immature Granulocyte # (Auto) 0.0, Sodium Level 139, Potassium Level 3.6, Chloride Level 103, Carbon Dioxide Level 22, Anion Gap 14, Blood Urea Nitrogen 9, Creatinine 0.72, Estimat Glomerular Filtration Rate 78, BUN/Creatinine Ratio 13, Glucose Level 115H, Calcium Level 8.4L, Corrected Calcium 9.3, Total Bilirubin 0.8, Aspartate Amino Transf (AST/SGOT) 25, Alanine Aminotransferase (ALT/SGPT) 10, Alkaline Phosphatase 186H, Troponin I < 0.028, C-Reactive Protein High Sensitivity 7.95H, B-Type Natriuretic Peptide 575.3H, Total Protein 6.1L, Albumin 2.9L 08/02/21 06:06: White Blood Count 5.5, Red Blood Count 3.47L, Hemoglobin 9.8L, Hematocrit 32L, Mean Corpuscular Volume 93, Mean Corpuscular Hemoglobin 28, Mean Corpuscular Hemoglobin Concent 30L, Red Cell Distribution Width 19.3H, Platelet Count 347, Mean Platelet Volume 8.9L, Immature Granulocyte % (Auto) 1, Neutrophils (%) (Auto) 65, Lymphocytes (%) (Auto) 15, Monocytes (%) (Auto) 15H, Eosinophils (%) (Auto) 4, Basophils (%) (Auto) 1, Neutrophils # (Auto) 3.5, Lymphocytes # (Auto) 0.8L, Monocytes # (Auto) 0.8, Eosinophils # (Auto) 0.2, Basophils # (Auto) 0.1, Immature Granulocyte # (Auto) 0.0, Sodium Level 141, Potassium Level 3.4L, Chloride Level 101, Carbon Dioxide Level 27, Anion Gap 13, Blood Urea Nitrogen 8, Creatinine 0.73, Estimat Glomerular Filtration Rate 77, BUN/Creatinine Ratio 11, Glucose Level 96, Calcium Level 8.4L, Magnesium Level 1.4L Radiology NAME: ASAF HAWKINS [facility] REC#: [id number] PT STATUS: REG ER : 1945 PHYSICIAN: PETTY MORLEY MD ADMIT DATE: 08/01/21/ER Signed Date of Exam:08/01/21 CHEST 1 VIEW, AP/PA ONLY INDICATION: Shortness of breath. Frontal chest obtained at 1:37 p.m. is compared to 07/28/2021. FINDINGS: There is cardiomegaly with central vascular congestion and mild interstitial edema. The edema has slightly worsened compared to the prior study. There is no change in prominent right pleural effusion. There is no pneumothorax. IMPRESSION: Cardiomegaly and central vascular congestion with interstitial edema, slightly worsened compared to the prior study. There is no change in right pleural effusion. Dictated by: ECG Impression ECG Comment A-fib with controlled ventricular rate A/P-Cardiology Assessment/Admission Diagnosis Progressive dyspnea Acute on chronic diastolic CHF H/O RTKA by Dr. Morrell on Jul 04, 2021 - subsequent cellulitis - being treated as an out pt PAF - rate controlled - OAC with Eliqus - low dose d/t chronic anemia with GIB requiring transfusions in the past as advised by hematology/oncology services (Dr. Payne) Nausea of undetermined etiology H/o anemia of undetermined etiology which has required multiple transfusions in the past (she reports chronic anemia for which she has had multiple eval in the past with unknown cause). Previous stool positive for occult blood during previous admission of Aug 2019 H/o PAF that has chronically been treated with flecainide (managed by Dr. Muhammad at [facility]) Non-Hodgkin B-cell lymphoma - follows with Dr. Payne of oncology services Chronic HFpEF Echo of 07/11/19: LVEF 60-65%, mild MR, mod AI, mild to mod TR, grade 2 mccullough dysfunction, RVSP 47 mmHg MPI of Jul 13, 2019 showed no evidence of ischemia/infarction; LVEF 67% Discussion and Recomendations Progressive dyspnea - acute on chronic diastolic CHF - treat with diuretics Advise CTA to r/o PE d/t recent surgery, decreased mobility and increasing SOB Echocardiogram to eval structure and function Continue OAC with Eliquis (low dose per pt report of anemia with GIB in the past requiring transfusions) Mangement of cellulitis of right knee per medical services Mangement of nausea per medical services Monitor lab closely Further recs will be based on her hospital course We would like to thank medical services for this consult DAVINA TRONCOSO Aug 01, 2021 15:56
[2021-08-01] MEDS ORDERED: ANTACID SUSP 30 ML UDC (MYLANTA) PO PRN (16:15)
[2021-08-01] MEDS ORDERED: ONDANSETRON 4 MG (ZOFRAN) ORAL DISSOLVE TAB PO PRN (16:15)
[2021-08-01] MEDS ORDERED: polyethylene glycoL POWDER 17 GM (MIRALAX) PACK PO PRN (16:15)
[2021-08-01] MEDS ORDERED: MELATONIN 3 MG TABLET PO PRN (16:15)
[2021-08-01] MEDS ORDERED: PATIENT MAY USE OWN MEDS, ALL PO SCH (16:15)
[2021-08-01] MEDS: ONDANSETRON 4 MG/2 ML (SDV) Z0FRAN IV PRN ×2 (16:36→22:10)
--- NOTE | 2021-08-01 17:16 | Consultation-Cardiology ---
HPI-Cardiology Cardiology Consultation: Date of Consultation 08/01/21 Time Seen by a Provider: 16:50 Date of Admission Attending Physician Ivelisse Alba MD Admitting Physician Aakash Santos MD Consulting Physician ANA FINLEY MD, MA, FACP, FACC, FSCAI, CCDS Physician requesting consult: Dr Alba HPI: Chief Complaint: Progressive shortness of breath Ms. Hawkins is a 76 yr old female admitted to [facility] from the ED with progressive dyspnea over the course of the last few weeks. She reports freq episodes of palpitations which she states can persist for several hours and then gradually resolve. She denies any CP. She denies any syncope or near syncope. She reports increasing bilat LE swelling, R>L. She reports freq nausea and dry heaves. She reports chills, but no fever. She reports progressive weakness. She reports she has been on antibiotic tx for cellulitis to her right knee. She reports poor intake. She denies missing any medications though. No diarrhea. Review of Systems-Cardiology Review of Systems Constitutional: chills; No fever; malaise Eyes: No vision change Ears/Nose/Throat: No epistaxis, No recent hearing loss Respiratory: As described under HPI Cardiovascular: As described under HPI Gastrointestinal: As described under HPI Genitourinary: No dysuria, No hematuria Musculoskeletal: no symptoms reported Skin: As described under HPI Hematologic: anemia All Other Systems Reviewed Negative Unless Noted: Yes [id number]-Jkssta Hx Patient Social History 2nd Hand Smoke Exposure: No Have you traveled recently?: No Alcohol Use?: No Immunizations Up To Date Tetanus Booster (TDap): Unknown Date of Pneumonia Vaccine: Oct 02, 2015 Date of Influenza Vaccine: Jun 08, 2021 Past Medical History PMH As described under Assessment. Family Medical History Family Medical History: Does not report fam h/o early CAD or SCD Allergies and Home Medications Allergies Coded Allergies: Cephalexin Monohydrate (Verified Allergy, Unknown, has tolerated Ancef, 08/03/19) Iodinated Contrast Media (Verified Allergy, Unknown, 10/29/19) Penicillins (Verified Allergy, Unknown, Has tolerated Ancef, 08/03/19) ciprofloxacin (Verified Allergy, Unknown, 02/25/21) iodine (Verified Allergy, Unknown, 07/08/19) linaclotide (Verified Allergy, Unknown, 07/28/19) lubiprostone (Verified Allergy, Unknown, 07/28/19) prednisolone (Verified Allergy, Unknown, 02/25/21) sulfamethoxazole (Verified Allergy, Unknown, 02/25/21) trimethoprim (Verified Allergy, Unknown, 02/25/21) venlafaxine HCl (Verified Allergy, Unknown, 07/08/19) Patient Home Medication List Home Medication List Reviewed: Yes Apixaban (Eliquis) 2.5 Mg Tablet, 2.5 MG PO BID, (Reported) Entered as Reported by: ALESHIA CONNELLY on 10/31/20 1122 Aspirin (Aspirin EC) 81 Mg Tablet.dr, 81 MG PO DAILY, (Reported) Entered as Reported by: ALESHIA CONNELLY on 10/31/20 1122 Atorvastatin Calcium (Atorvastatin Calcium) 20 Mg Tablet, 20 MG PO 1700, (Reported) Entered as Reported by: BRUNO GRIMALDO on 07/09/19 0910 Carboxymethylcellulose Sodium (Refresh Tears) 15 Ml Drops, 2 DROPS OU PRN PRN for DRY EYES, (Reported) Entered as Reported by: ALESHIA CONNELLY on 12/15/19 1311 Carvedilol (Carvedilol) 6.25 Mg Tablet, 6.25 MG PO BID, (Reported) Entered as Reported by: BRUNO GRIMALDO on 10/15/19 0954 Cholecalciferol (Vitamin D3) (Vitamin D3) 50 Mcg Tablet, 50 MCG PO DAILY, (Reported) Entered as Reported by: ROB SOLARES on 06/21/21 1425 Citalopram Hydrobromide (Citalopram HBr) 10 Mg Tablet, 10 MG PO BID, (Reported) Entered as Reported by: BRUNO GRIMALDO on 10/15/19 0954 Clindamycin HCl (Clindamycin HCl) 300 Mg Capsule, 300 MG PO QID Prescribed by: ARIAN BURDEN on 07/28/211915 Docusate Sodium (Docusate Sodium) 100 Mg Capsule, 100 MG PO BID Prescribed by: JEANNE HENSON on 07/13/21 0551 Doxycycline Hyclate (Doxycycline Hyclate) 100 Mg Tablet, 100 MG PO BID Prescribed by: ARIAN BURDEN on 07/28/211915 Estrogens Conjugated (Premarin) 0.45 Mg Tab, 0.45 MG PO DAILY, (Reported) Entered as Reported by: BRUNO GRIMALDO on 07/09/19 0910 Famotidine (Famotidine) 20 Mg Tablet, 20 MG PO BID, (Reported) Entered as Reported by: BRUNO GRIMALDO on 10/15/19 0954 Flecainide Acetate (Flecainide Acetate) 100 Mg Tablet, 150 MG PO BID, (Reported) Entered as Reported by: ALESHIA CONNELLY on 10/31/20 112 Furosemide (Furosemide) 20 Mg Tablet, 20 MG PO DAILY PRN for SWELLING, (Reported) Entered as Reported by: MARGARET CARDOZA on 07/08/191999 Lactobacillus Acidophilus (Probiotic) 1 Each Capsule, 1 EACH PO TID Prescribed by: ARIAN BURDEN on 07/28/211915 Lactobacillus Combo No.10 (Probiotic) 1 Each Capsule, 1 EACH PO DAILY, (Reported) Entered as Reported by: ALESHIA CONNELLY on 12/15/19 1319 Losartan Potassium (Losartan Potassium) 50 Mg Tablet, 50 MG PO 1700, (Reported) Entered as Reported by: ALESHIA CONNELLY on 10/31/20 112 Metformin HCl (Metformin HCl ER) 500 Mg Tab.er.24h, 500 MG PO 1700 W/MEAL, (Reported) Entered as Reported by: ALESHIA CONNELLY on 10/31/20 112 Mirtazapine (Mirtazapine) 15 Mg Tablet, 15 MG PO HS, (Reported) Entered as Reported by: SHARMAINE SIMPSON on 07/04/21 1444 Oxycodone HCl/Acetaminophen (Percocet 5-325 mg Tablet) 1 Each Tablet, 1-2 TAB PO Q4H PRN for PAIN-MODERATE (5-7) Prescribed by: ARIAN BURDEN on 07/28/211915 Oxycodone Hcl (Oxyir Tablet) 5 Mg Tab, 5-10 MG PO Q4H PRN for PAIN-SEVERE (8-10) Prescribed by: JEANNE HENSON on 07/13/21 0552 Pantoprazole Sodium (Pantoprazole Sodium) 40 Mg Tablet.dr, 40 MG PO DAILY, (Reported) Entered as Reported by: MARGARET CARDOZA on 07/08/191999 Vit A/Vit C/Vit E/Zinc/Copper (Preservision Areds Tablet) 1 Each Tablet, 2 TAB PO DAILY, (Reported) Entered as Reported by: BRUNO GRIMALDO on 07/09/19 0910 Physical Exam-Cardiology Physical Exam Vital Signs/I&O 08/01/21 08/01/21 08/01/21 11:10 16:02 16:22 Temp 36.1 Pulse 72 80 Resp 16 14 B/P (MAP) 141/62 (88) 159/111 Pulse Ox 92 99 O2 Delivery Room Air Nasal Cannula O2 Flow Rate 2.00 Capillary Refill : Less Than 3 Seconds Constitutional: AAO x 3, well-developed, well-nourished HEENT: PERRL, hearing is well preserved, oral hygience is good Neck: No carotid bruit; carotid pulses are 2 + bilaterally Respiratory: No accessory muscle use, No respiratory distress; chest expansion is symmetric, chest is bilaterally symmetric, other (diminished lower lobes bilat) Cardiovascular: irregularly irregular; No JVD; S1 and S2 Gastrointestinal: No tender; soft, round, audible bowel sounds, other (frequent dry heaving during exam) Extremities: other (Bilat LE swelling knee to toes, pitting, R>L) Neurologic/Psychiatric: grossly intact (moves all extremities) Skin: other (Right knee surgical incision with redness, warmth, brusing, swelling, edges approx, no drainage noted) Data Review Labs Laboratory Tests 08/01/21 11:56: White Blood Count 7.8, Red Blood Count 3.46L, Hemoglobin 9.8L, Hematocrit 33L, Mean Corpuscular Volume 95, Mean Corpuscular Hemoglobin 28, Mean Corpuscular Hemoglobin Concent 30L, Red Cell Distribution Width 19.5H, Platelet Count 361, Mean Platelet Volume 9.0, Immature Granulocyte % (Auto) 0, Neutrophils (%) (Auto) 72, Lymphocytes (%) (Auto) 11L, Monocytes (%) (Auto) 13H, Eosinophils (%) (Auto) 3, Basophils (%) (Auto) 1, Neutrophils # (Auto) 5.6, Lymphocytes # (Auto) 0.8L, Monocytes # (Auto) 1.0, Eosinophils # (Auto) 0.2, Basophils # (Auto) 0.1, Immature Granulocyte # (Auto) 0.0, Sodium Level 139, Potassium Level 3.6, Chloride Level 103, Carbon Dioxide Level 22, Anion Gap 14, Blood Urea Nitrogen 9, Creatinine 0.72, Estimat Glomerular Filtration Rate 78, BUN/Creatinine Ratio 13, Glucose Level 115H, Calcium Level 8.4L, Corrected Calcium 9.3, Total Bilirubin 0.8, Aspartate Amino Transf (AST/SGOT) 25, Alanine Aminotransferase (ALT/SGPT) 10, Alkaline Phosphatase 186H, Troponin I < 0.028, C-Reactive Protein High Sensitivity 7.95H, B-Type Natriuretic Peptide 575.3H, Total Protein 6.1L, Albumin 2.9L A/P-Cardiology Assessment/Admission Diagnosis Progressive dyspnea Acute on chronic diastolic CHF (HFpEF) - Echo of 07/11/19: LVEF 60-65%, mild MR, mod AI, mild to mod TR, grade 2 mccullough dysfunction, RVSP 47 mmHg - MPI of Jul 13, 2019 showed no evidence of ischemia/infarction; LVEF 67% H/O RTKA by Dr. Morrell on Jul 04, 2021 - subsequent cellulitis - being treated as an out pt PAF - rate controlled; has chronically been treated with flecainide (managed by Dr. Muhammad at [facility]) - OAC with Eliqus - low dose d/t chronic anemia with GIB requiring transfusions in the past as advised by hematology/oncology services (Dr. Payne) Nausea of undetermined etiology H/o anemia of undetermined etiology which has required multiple transfusions in the past (she reports chronic anemia for which she has had multiple eval in the past with unknown cause). Previous stool positive for occult blood during previous admission of Aug 2019 Non-Hodgkin B-cell lymphoma - follows with Dr. Payne of oncology services Discussion and Recomendations * Diuretics for CHF * Increase beta-adrian and add amlodipine to control bp * Continue anticoat. We recommend eval for PE and also consideration of full dose apixaban if no medical contraindications (Dr Alba of the Hospitalist service to decide) * Echocardiogram to eval structure and function * Mangement of cellulitis and nausea, and post-op management of right knee by the Hospitalist sveladio * Monitor lab closely ANA FINLEY MD [facility] CCDS Aug 01, 2021 17:16
[2021-08-01] MEDS ORDERED: amLODIPine 5 MG (NORVASC) TAB PO ONE ×2 (17:30)
[2021-08-01] MEDS ORDERED: amLODIPine 5 MG (NORVASC) TAB ONE (18:08)
[2021-08-01 19:54] VITALS: BP 148/66
[2021-08-01] MEDS: DOCUSATE SODIUM 100 MG (COLACE) CAP PO SCH (21:22)
[2021-08-01] MEDS: SENNOSIDES 8.6 MG (SENOKOT) TAB PO SCH (21:23)
[2021-08-01] MEDS: APIXABAN 2.5 MG (ELIQUIS) TABLET PO SCH (21:23)
[2021-08-01] MEDS: ACETAMINOPHEN 325 MG TABLET PO PRN (22:11)
[2021-08-02] VITALS: BP 127/60
[2021-08-02 04:45] VITALS: BP 132/62
[2021-08-02] MEDS: ONDANSETRON 4 MG/2 ML (SDV) Z0FRAN IV PRN ×2 (06:19→17:21)
[2021-08-02] MEDS: KCL 20 MEQ TAB (K-DUR) PO SCH (06:19)
[2021-08-02 06:21] LABS: BASOPHILS # (AUTO) 0.1 10^3/uL (0.0-0.1); BASOPHILS % (AUTO) 1 % (0-10); EOSINOPHILS # (AUTO) 0.2 10^3/uL (0.0-0.3); EOSINOPHILS % (AUTO) 4 % (0-10); HEMATOCRIT 32 % (35-52); HEMOGLOBIN 9.8 g/dL (11.5-16.0); LYMPHOCYTES # (AUTO) 0.8 10^3/uL (1.0-4.0); LYMPHOCYTES % (AUTO) 15 % (12-44); MEAN CORPUSCULAR HEMOGLOBIN 28 pg (25-34); MEAN CORPUSCULAR HGB CONC 30 g/dL (32-36); MEAN CORPUSCULAR VOLUME 93 fL (80-99); MEAN PLATELET VOLUME 8.9 fL (9.0-12.2); MONOCYTES # (AUTO) 0.8 10^3/uL (0.0-1.0); MONOCYTES % (AUTO) 15 % (0-12); NEUTROPHILS # (AUTO) 3.5 10^3/uL (1.8-7.8); NEUTROPHILS % (AUTO) 65 % (42-75); PLATELET COUNT 347 10^3/uL (130-400); WHITE BLOOD COUNT 5.5 10^3/uL (4.3-11.0)
[2021-08-02 06:39] LABS: POTASSIUM 3.4 MMOL/L (3.6-5.0)
[2021-08-02 06:40] LABS: CALCIUM 8.4 MG/DL (8.5-10.1)
[2021-08-02 06:44] LABS: CREATININE SERUM 0.73 MG/DL (0.60-1.30)
[2021-08-02 06:47] LABS: MAGNESIUM 1.4 MG/DL (1.6-2.4)
[2021-08-02 07:30] VITALS: BP 183/88
[2021-08-02] MEDS ORDERED: KCL 20 MEQ TAB (K-DUR) PO ONE (08:00)
--- NOTE | 2021-08-02 08:00 | Progress Note ---
Standard Progress Note Progress Notes/Assess & Plan Date Seen by a Provider: Aug 02, 2021 Time Seen by a Provider: 07:59 Progress/Assessment & Plan R knee hematoma improved echymotic without erythema mobilize as able GEGE ARCE MD Aug 02, 2021 08:00
[2021-08-02] MEDS: amLODIPine 5 MG (NORVASC) TAB PO SCH (08:56)
[2021-08-02] MEDS: APIXABAN 2.5 MG (ELIQUIS) TABLET PO SCH (08:56)
[2021-08-02] MEDS: SENNOSIDES 8.6 MG (SENOKOT) TAB PO SCH ×2 (08:56→20:09)
[2021-08-02] MEDS: MAGNESIUM 1 GM/100 ML IVPB 100 ML IV SCH ×2 (08:57→10:49)
[2021-08-02] MEDS: LOSARTAN 50 MG (COZAAR) TAB PO SCH (08:57)
[2021-08-02] MEDS: FUROSEMIDE 40 MG/4 ML INJ (LASIX) IVP SCH (08:57)
[2021-08-02] MEDS ORDERED: amLODIPine 5 MG (NORVASC) TAB PO SCH (09:00)
[2021-08-02] MEDS: ACETAMINOPHEN 325 MG TABLET PO PRN ×2 (09:09→13:21)
[2021-08-02] MEDS: DOCUSATE SODIUM 100 MG (COLACE) CAP PO SCH ×2 (09:10→20:09)
--- NOTE | 2021-08-02 09:20 | Progress Note - Cardiology ---
Cardiology SOAP Progress Note Subjective: Gen weakness and malaise Nausea and dry heaves No cp or palp or syncope Shortness of breath modestly improved Feeling of gen discomfort and pain present Objective: I&O/Vital Signs 08/01/21 08/02/21 08/02/21 08/02/21 23:24 00:00 01:00 04:45 Temp 36.4 35.8 Pulse 65 60 62 Resp 20 17 B/P (MAP) 127/60 (82) 132/62 (85) Pulse Ox 91 96 O2 Delivery Nasal Cannula Nasal Cannula Nasal Cannula O2 Flow Rate 3.00 3.00 3.00 08/02/21 08/02/21 07:00 07:30 Temp 36.2 Pulse 77 77 Resp 20 B/P (MAP) 183/88 (119) Pulse Ox 98 O2 Delivery Nasal Cannula O2 Flow Rate 3.00 08/02/21 00:00 Intake Total 100 ml Output Total 800 ml Balance -700 ml Constitutional: AAO x 3, well-developed, well-nourished Respiratory: No accessory muscle use, No respiratory distress; chest expansion is symmetric, chest is bilaterally symmetric, other (diminished lower lobes bilat) Cardiovascular: irregularly irregular; No JVD; S1 and S2 Gastrointestional: No tender; soft, round, audible bowel sounds, other (frequent dry heaving during exam) Extremities: other (Bilat LE swelling knee to toes, pitting, R>L) Neurologic/Psychiatric: grossly intact (moves all extremities) Skin: other (Right knee surgical incision with redness, warmth, brusing, swelling, edges approx, no drainage noted) Results/Procedures: Labs Laboratory Tests 08/01/21 11:56: White Blood Count 7.8, Red Blood Count 3.46L, Hemoglobin 9.8L, Hematocrit 33L, Mean Corpuscular Volume 95, Mean Corpuscular Hemoglobin 28, Mean Corpuscular Hemoglobin Concent 30L, Red Cell Distribution Width 19.5H, Platelet Count 361, Mean Platelet Volume 9.0, Immature Granulocyte % (Auto) 0, Neutrophils (%) (Auto) 72, Lymphocytes (%) (Auto) 11L, Monocytes (%) (Auto) 13H, Eosinophils (%) (Auto) 3, Basophils (%) (Auto) 1, Neutrophils # (Auto) 5.6, Lymphocytes # (Auto) 0.8L, Monocytes # (Auto) 1.0, Eosinophils # (Auto) 0.2, Basophils # (Auto) 0.1, Immature Granulocyte # (Auto) 0.0, Sodium Level 139, Potassium Level 3.6, Chloride Level 103, Carbon Dioxide Level 22, Anion Gap 14, Blood Urea Nitrogen 9, Creatinine 0.72, Estimat Glomerular Filtration Rate 78, BUN/Creatinine Ratio 13, Glucose Level 115H, Calcium Level 8.4L, Corrected Calcium 9.3, Total Bilirubin 0.8, Aspartate Amino Transf (AST/SGOT) 25, Alanine Aminotransferase (ALT/SGPT) 10, Alkaline Phosphatase 186H, Troponin I < 0.028, C-Reactive Protein High Sensitivity 7.95H, B-Type Natriuretic Peptide 575.3H, Total Protein 6.1L, Albumin 2.9L 08/02/21 06:06: White Blood Count 5.5, Red Blood Count 3.47L, Hemoglobin 9.8L, Hematocrit 32L, Mean Corpuscular Volume 93, Mean Corpuscular Hemoglobin 28, Mean Corpuscular Hemoglobin Concent 30L, Red Cell Distribution Width 19.3H, Platelet Count 347, Mean Platelet Volume 8.9L, Immature Granulocyte % (Auto) 1, Neutrophils (%) (Auto) 65, Lymphocytes (%) (Auto) 15, Monocytes (%) (Auto) 15H, Eosinophils (%) (Auto) 4, Basophils (%) (Auto) 1, Neutrophils # (Auto) 3.5, Lymphocytes # (Auto) 0.8L, Monocytes # (Auto) 0.8, Eosinophils # (Auto) 0.2, Basophils # (Auto) 0.1, Immature Granulocyte # (Auto) 0.0, Sodium Level 141, Potassium Level 3.4L, Chloride Level 101, Carbon Dioxide Level 27, Anion Gap 13, Blood Urea Nitrogen 8, Creatinine 0.73, Estimat Glomerular Filtration Rate 77, BUN/Creatinine Ratio 11, Glucose Level 96, Calcium Level 8.4L, Magnesium Level 1.4L Laboratory Tests 08/01/21 11:56 08/02/21 06:06 A/P: Assessment: Progressive dyspnea Acute on chronic diastolic CHF (HFpEF) - Echo of 07/11/19: LVEF 60-65%, mild MR, mod AI, mild to mod TR, grade 2 mccullough dysfunction, RVSP 47 mmHg - MPI of Jul 13, 2019 showed no evidence of ischemia/infarction; LVEF 67% - Echo of 08/02/21: LVEF 50-55%, mild AI H/O RTKA by Dr. Morrell on Jul 04, 2021 - subsequent cellulitis - being treated as an out pt PAF - rate controlled; has chronically been treated with flecainide (managed by Dr. Muhammad at [facility]) - OAC with Eliqus - low dose d/t chronic anemia with GIB requiring transfusions in the past as advised by hematology/oncology services (Dr. Payne) Nausea of undetermined etiology H/o anemia of undetermined etiology which has required multiple transfusions in the past (she reports chronic anemia for which she has had multiple eval in the past with unknown cause). Previous stool positive for occult blood during previous admission of Aug 2019 Non-Hodgkin B-cell lymphoma - follows with Dr. Payne of oncology services Plan: * Diuretics for CHF * Replenish electrolytes * We increased beta-adrian and added amlodipine to control bp * Continue anticoag. We recommend eval for PE and also consideration of full dose apixaban if no medical contraindications (Dr Alba of the Hospitalist service to decide) * Mangement of cellulitis and nausea, and post-op management of right knee is with the Hospitalist svce * Monitor lab closely [facility] FINLEY [facility] Aug 02, 2021 09:20
--- NOTE | 2021-08-02 10:29 | Physical Therapy Evaluation ---
PT Evaluation-General Medical Diagnosis Admission Date Aug 01, 2021 at 15:35 Medical Diagnosis: CHF Onset Date: Aug 01, 2021 Therapy Diagnosis Therapy Diagnosis: generalized weakness/debility Precautions Precautions/Isolations: Fall Prevention, Standard Precautions Referral Physician: Parth Reason for Referral: Evaluation/Treatment Medical History Pertinent Medical History: Atrial Fib, COPD, DM, Dementia, HTN, Lymphoma, Rheumatoid Arthritis Additional Medical History right TKR 07/2021 Current History ER secondary to dry heaves and cough/SOA (ambulated to ER room) Reviewed History: Yes Social History Home: Single Level Current Living Status: Spouse Prior Prior Level of Function SCALE: Activities may be completed with or without assistive devices. 7-Blruzdduzk-dxwdbdz completes the activity by him/herself with no assistance from a helper. 5-Set-up or Clean-up Assistance-helper sets up or cleans up; patient completes activity. [place] assists only prior to or following the activity. 4-Supervision or Touching Assistance-helper provides verbal cues and/or touching/steadying and/or contact guard assistance as patient completes activity. Assistance may be provided throughout the activity or intermittently. 3-Partial/Moderate Assistance-helper does LESS THAN HALF the effort. [place] lifts, holds or supports trunk or limbs, but provides less than half the effort. 2-Substantial/Maximal Assistance-helper does MORE THAN HALF the effort. [place] lifts or holds trunk or limbs and provides more than half the effort. 0-Byasktrsa-osmqqf does ALL the effort. Patient does none of the effort to complete the activity. Or, the assistance of 2 or more helpers is required for the patient to complete the activity. If activity was not attempted, code reason: 7-Patient Refused. 9-Not Applicable-not attempted and the patient did not perform the activity before the current illness, exacerbation or injury. 10-Not Attempted due to Environmental Limitations-(lack of equipment, weather restraints, etc.). 88-Not Attempted due to Medical Conditions or Safety Concerns. Bed Mobility: 6 Transfers (B,C,W/C): 4 Gait: 4 Indoor Mobility (Ambulation): Needed Some Help Prior Devices Use: Walker PT Evaluation-Current Subjective Patient agrees to PT. Daughter present. Pain Numeric Pain Scale: 5-Moderate Pain Location: Right Location Body Site: Knee Pain Description: Ache Objective Patient Orientation: Person, Confused, Time Attachments: IV ROM/Strength ROM Lower Extremities right knee flexion 94 degrees, extension 10 degrees/left LE WFL Strength Lower Extremities right LE 3-/5 grossly/left LE 3/5 grossly Integumentary/Posture Bowel Incontinence: No Bladder Incontinence: No Posture trunk and bilateral knee flexed posture Neuromuscular (Tone, Coordination, Reflexes) grossly intact Sensory Vision: Wears Glasses Hearing: Functional Transfers Roll Left to Right (QC): 6 Lying to Sitting/Side of Bed(Q: 6 Sit to Stand (QC): 3 Chair/Roe-km-Exaaj Xfer(QC): 3 Gait Does the Patient Walk?: Yes Mode of Locomotion: Walk Anticipated Mode of Locomotion: Walk Walk 10 feet (QC): 4 Walk 50 ft with 2 Turns(QC): 4 Walk 150 ft (QC): 4 Distance: 200' Gait Assistive Device: FWW Comments/Gait Description slow, step to gait sequence/noted flexed knee and trunk posture and increase SOA with activity with SAO2 >90% RA. Balance Sitting Static: Normal Sitting Dynamic: Normal Standing Static: Fair Standing Dynamic: Fair Treatment VC's for mobility and posture with patient unable to self correct. Noted increase SOA with minimal activity. (this was noted in prior admit for right TKR) Assessment/Needs 76 y.o. female, will benefit from skilled PT to address functional strength and mobility to improve current LOF to safely return to home with spouse at maximum LOF. 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 Goals Time Frame: Aug 11, 2021 Roll Left & Right (QC): 6 Sit to Lying (QC): 6 Lying-Sitting on Side/Bed(QC): 6 Sit to Stand (QC): 5 Chair/Aix-lg-Nvren Xfer(QC): 5 Toilet Transfer (QC): 5 Walk 10 feet (QC): 4 Walk 50ft with 2 Turns (QC): 4 Walk 150 ft (QC): 4 PT Plan Problem List Problem List: Activity Tolerance, Functional Strength, Safety, Balance, Gait, Transfer, Bed Mobility, ROM Treatment/Plan Treatment Plan: Continue Plan of Care Treatment Plan: Bed Mobility, Education, Functional Activity Sharad, Functional Strength, Gait, Safety, Therapeutic Exercise, Transfers Treatment Duration: Aug 11, 2021 Frequency: 6 times per week Estimated Hrs Per Day: .5 hour per day Patient and/or Family Agrees t: Yes Time/GCodes Time In: 912 Time Out: 924 Total Billed Treatment Time: 12 Total Billed Treatment 1 visit EVModC 12 min CURTIS GARCIA PT Aug 02, 2021 10:29
[2021-08-02] MEDS ORDERED: CLIN-144 PO (11:07)
[2021-08-02] MEDS ORDERED: DOXY100T2 PO (11:07)
[2021-08-02] MEDS ORDERED: ACHD5005 PO (11:07)
[2021-08-02] MEDS ORDERED: DOCU100C37 PO (11:07)
--- NOTE | 2021-08-02 11:10 | Occupational Therapy Eval ---
OT Evaluation-General/PLF Medical Diagnosis Admission Date Aug 01, 2021 at 15:35 Medical Diagnosis: CHF Onset Date: Aug 01, 2021 Therapy Diagnosis Therapy Diagnosis: decreased ADL status Precautions Precautions/Isolations: Fall Prevention, Standard Precautions Referral Physician: Parth Gill Reason: Evaluation/Treatment Medical History Pertinent Medical History: Atrial Fib, COPD, DM, Dementia, HTN, Lymphoma, Rheumatoid Arthritis Additional Medical History R TKA 07/04/21, CKD stage 1, arthritis, mitral valve prolapse, cervical fusion Current History ED due to dry heaves and headache Social History Home: Single Level Current Living Status: Spouse Entry Into Home: Stairs With Railing Steps Into Home: 2 ADL-Prior Level of Function SCALE: Activities may be completed with or without assistive devices. 7-Bxbypcrjmo-jjcynky completes the activity by him/herself with no assistance from a helper. 5-Set-up or Clean-up Assistance-helper sets up or cleans up; patient completes activity. [place] assists only prior to or following the activity. 4-Supervision or Touching Assistance-helper provides verbal cues and/or touching/steadying and/or contact guard assistance as patient completes activity. Assistance may be provided throughout the activity or intermittently. 3-Partial/Moderate Assistance-helper does LESS THAN HALF the effort. [place] lifts, holds or supports trunk or limbs, but provides less than half the effort. 2-Substantial/Maximal Assistance-helper does MORE THAN HALF the effort. [place] lifts or holds trunk or limbs and provides more than half the effort. 1-Vykklamdg-oxbjhn does ALL the effort. Patient does none of the effort to complete the activity. Or, the assistance of 2 or more helpers is required for the patient to complete the activity. If activity was not attempted, code reason: 7-Patient Refused. 9-Not Applicable-not attempted and the patient did not perform the activity before the current illness, exacerbation or injury. 10-Not Attempted due to Environmental Limitations-(lack of equipment, weather restraints, etc.). 88-Not Attempted due to Medical Conditions or Safety Concerns. ADL PLOF Comments Pt reports her assists her at PLOF. He dries off her feet when she gets out of the shower, assists with threading pants onto feet and assists with footwear. She has a walk in shower with a SC. She uses FWW for functional mobility. Self Care: Needed Some Help DME/Equipment: Bath Chair, Shower OT Current Status Subjective Pt laying in bed, agreeable to OT Tx. Mental Status/Objective Patient Orientation: Person, Place, Situation Attachments: IV Current Dentures/Partials: Yes Hand Dominance: Right Upper Extremity ROM WFL Upper Extremity Coordination WFL Upper Extremity Sensation WFL Upper Extremity Strength grossly 3+/5 ADL-Treatment Eating (QC): 6 (per pt report.) Oral Hygiene (QC): 5 (set up at bed level.) Toileting Hygiene (QC): 3 (Per pt report, assist with hygiene post BM. Pt able to manage clothing.) Other Treatments Pt laying in bed, agreeable to OT tx. Pt provides information about PLOF and home set up. She indicates her assists her with ADLs at home as it is just easier for them. He helps dry her feet/legs off after a shower, assists with footwear and assists with threading pants. She was able to complete UE dressing/bathing and toileting. Pt doesn't need to use the bathroom, as she went a little bit ago, per pt report she is able to manage clothing and pericare but requires assistance with hygiene post BM. Pt completed oral care at bed level after set up assistance. Per PT report, pt ambulated 200' with FWW (QC 4), and sit to stand transfers (QC 3). Post tx, pt in bed, call light in reach and all needs met. Education OT Patient Education: Correct positioning, Energy conservation, Exercise program, Modified ADL techniques, Progress toward Goal/Update tx plan, Purpose of tx/functional activities, Rehab process Teaching Recipient: Patient Teaching Methods: Discussion Response to Teaching: Verbalize Understanding OT Horticulture Superintendent Goals Horticulture Superintendent Goals Time Frame: Aug 10, 2021 Eating (QC): 6 Oral Hygiene (QC): 6 Toileting Hygiene (QC): 6 Shower/Bathe Self (QC): 3 Upper Body Dressing (QC): 5 Lower Body Dressing (QC): 3 On/Off Footwear (QC): 3 Additional Goals: 1-Demonstrate ADL Tasks, 2-Verbalize Understanding, 3- ImproveStrength/Sharad 1=Demonstrate adherence to instructed precautions during ADL tasks. 2=Patient will verbalize/demonstrate understanding of assistive devices/modifications for ADL. 3=Patient will improve strength/tolerance for activity to enable patient to perform ADL's. OT Education/Plan Problem List/Assessment Assessment: Decreased Activ Tolerance, Decreased UE Strength, Impaired Funct Balance, Impaired I ADL's, Impaired Self-Care Skills Discharge Recommendations Plan/Recommendations: Continue POC Treatment Plan/Plan of Care Patient would benefit from OT for education, treatment and training to promote independence in ADL's, mobility, safety and/or upper extremity function for ADL's. Plan of Care: ADL Retraining, Functional Mobility, UE Funct Exercise/Act Treatment Duration: Aug 10, 2021 Frequency: 3 times per week (3-5 times per week) Estimated Hrs Per Day: .25 hour per day Rehab Potential: Guarded Time/GCodes Start Time: 10:40 Stop Time: 10:57 Total Time Billed (hr/min): 17 Billed Treatment Time 1, RYAN HYMAN OT Aug 02, 2021 11:10
[2021-08-02 12:02] VITALS: BP 155/64
--- NOTE | 2021-08-02 13:32 | Diagnostic Imaging Report ---
INDICATION: Chest pain, shortness of breath. Patient is postop knee surgery one month ago. COMPARISON: Exam interpreted in correlation with a chest x-ray most recently performed on 08/01/2021. TECHNIQUE: Perfusion imaging performed following intravenous administration of 5.4 mCi technetium 99m MAA. FINDINGS: There is a matched defect in the right base associated with subpulmonic effusion present at earlier radiograph. There is no pleural-based or mismatched defects felt suggestive of PE. IMPRESSION: This is a low-probability study. Matched defect at the right base owing to subpulmonic effusion. No suspicious defect. Dictated by: Dictated on workstation # [id number]
[2021-08-02 15:10] VITALS: BP 153/65
--- NOTE | 2021-08-02 16:45 | History & Physical-Hospitalist ---
History of Present Illness HPI/Chief Complaint She Hawkins is a 76 year old female with PMH HTN, T2DM, AFib, COPD, DLBCL, who presented with nausea and vomiting. She had a knee replacement about 3 weeks ago. This was complicated by a hematoma. This has been improving but is still painful. She has been able to move around and walk. She has been requiring some Hydrocodone though. She is not sure if this is related to the dry heaves she was having at home. She has not had any further emesis since admission. She was able to get up and walk with physical therapy. She has also had issues with shortness of breath. She says she is barely able to stand and brush her teeth without getting short of breath. She has also been very weak. She denies fevers and chills. She denies cough. She has no known history of heart failure. Source: patient Exam Limitations: no limitations Date Seen 08/02/21 Time Seen by a Provider: 10:55 Attending Physician Denisa Esquivel MD PCP Aakash Santos MD Referring Physician Date of Admission Aug 02, 2021 at 11:57 Home Medications & Allergies Home Medications Reviewed patient Home Medication Reconciliation performed by pharmacy medication reconciliations cooling tower technician and/or nursing. Patients Allergies have been reviewed. Allergies Allergies Coded Allergies Cephalexin Monohydrate (Verified Allergy, Unknown, has tolerated Ancef, 08/03/19) Iodinated Contrast Media (Verified Allergy, Unknown, 10/29/19) Penicillins (Verified Allergy, Unknown, Has tolerated Ancef, 08/03/19) ciprofloxacin (Verified Allergy, Unknown, 02/25/21) iodine (Verified Allergy, Unknown, 07/08/19) linaclotide (Verified Allergy, Unknown, 07/28/19) lubiprostone (Verified Allergy, Unknown, 07/28/19) prednisolone (Verified Allergy, Unknown, 02/25/21) sulfamethoxazole (Verified Allergy, Unknown, 02/25/21) trimethoprim (Verified Allergy, Unknown, 02/25/21) venlafaxine HCl (Verified Allergy, Unknown, 07/08/19) Past Bukzigx-Wygjao-Wrdgeh Hx Patient Social History Tobacco Use?: No Smoking Status: Never a Smoker Smokeless Tobacco Frequency: Never a User Use of E-Cig and/or Vaping dev: No Substance use?: No Alcohol Use?: No Pt feels they are or have been: No Immunizations Up To Date Date of Influenza Vaccine: Jun 08, 2021 First/Initial COVID19 Vaccinat: 12/20 Second COVID19 Vaccination Esa: 12/20 Tetanus Booster (TDap): Unknown Hepatitis A: No Hepatitis B: No Date of Pneumonia Vaccine: Oct 02, 2015 Seasonal Allergies Seasonal Allergies: Yes Current Status status: No status: No Advance Directives: Yes Advance Directive Location: Family to bring in copy Communicates: Verbally Primary Language: Dutch Preferred Spoken Language: Dutch Is interpretation needed?: No Sensory deficits: Vision impairment Implanted or Applied Medical D: None Past Medical History Surgeries: Appendectomy, Bladder Surgery, Cardiac, Gallbladder, Hysterectomy, Orthopedic (Right knee) Pneumonia, COPD Currently Using CPAP: No Currently Using BIPAP: No Atrial Fibrillation, Hypertension, Valvular Heart Disease 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: Menopausal Bladder Infection Gastroesophageal Reflux, Gastrointestinal Bleed, Chronic Constipation, Hiatal Hernia Arthritis, Rheumatoid Arthritis Diabetes, Non-Insulin dep Loss of Vision: Denies Lymphoma What Type of Treatment Did You: Chemotherapy Anxiety, Depression Blood Disorders: No Adverse Reaction/Blood Tranf: No Family Medical History Reviewed Nursing Family Hx No Pertinent Family Hx Review of Systems Constitutional: weakness EENTM: no symptoms reported Respiratory: dyspnea on exertion, short of breath Cardiovascular: no symptoms reported Gastrointestinal: nausea, vomiting Genitourinary: no symptoms reported Musculoskeletal: no symptoms reported Skin: no symptoms reported Psychiatric/Neurological: No Symptoms Reported Physical Exam Physical Exam Vital Signs Vital Signs - First Documented 08/01/21 08/01/21 11:10 16:22 Temp 36.1 Pulse 72 Resp 16 B/P (MAP) 141/62 (88) Pulse Ox 92 O2 Delivery Room Air O2 Flow Rate 2.00 Capillary Refill : Less Than 3 Seconds Height, Weight, BMI Height: '" Weight: lbs. oz. kg; 26.78 BMI Method:Estimated General Appearance: No Apparent Distress, Chronically ill HEENT: PERRL/EOMI, Pharynx Normal Neck: Normal Inspection, Supple Respiratory: Lungs Clear, Normal Breath Sounds, No Respiratory Distress Cardiovascular: Regular Rate, Rhythm, No Murmur Gastrointestinal: Normal Bowel Sounds, Non Tender, Soft Extremity: Normal Inspection, Non Tender, No Pedal Edema Neurologic/Psychiatric: Alert, Oriented x3, Normal Mood/Affect Skin: Warm/Dry, Ecchymosis (right knee) Results Results/Procedures Labs Laboratory Tests 08/01/21 11:56 08/02/21 06:06 Patient resulted labs reviewed. Imaging: Reviewed Imaging Report Assessment/Plan Admission Diagnosis Acute respiratory failure with hypoxia due to acute heart failure with preserved ejection fraction Admission Status: Inpatient Order (span 2 midnights) Reason for Inpatient Admission: IV diuretics Respiratory failure Assessment and Plan Acute respiratory failure with hypoxia Acute heart failure with preserved ejection fraction Chest xray with pulmonary edema Right sided pleural effusion stable IV Lasix Echo ordered Cardiology following Supplemental oxygen as needed, minimal requirement Right knee hematoma s/p right knee replacement Debility Dr. Morrell following Pain regimen PT/OT IRF evaluated, accepted for admission tomorrow Paroxysmal atrial fibrillation Increase to Eliquis 5 mg twice daily Cardiology following Hypokalemia Hypomagnesemia Monitor and replace as needed DLBCL Follows with Dr. Payne Currently in remission Diagnosis/Problems Diagnosis/Problems (1) Acute respiratory failure with hypoxia Status: Acute (2) Acute heart failure with preserved ejection fraction (HFpEF) Status: Acute (3) Hematoma of right knee region Status: Acute (4) Debility Status: Acute (5) HTN (hypertension) Status: Chronic (6) T2DM (type 2 diabetes mellitus) Status: Chronic (7) DLBCL (diffuse large B cell lymphoma) Status: Chronic Qualifiers: Lymphoma site: unspecified region Qualified Codes: C83.30 - Diffuse large B-cell lymphoma, unspecified site (8) PAF (paroxysmal atrial fibrillation) Status: Chronic DENISA ESQUIVEL MD Aug 02, 2021 16:45
[2021-08-02 20:05] VITALS: BP 137/63
[2021-08-02] MEDS: APIXABAN 5 MG (ELIQUIS) TABLET PO SCH (20:09)
[2021-08-03] VITALS: BP 166/52
[2021-08-03 04:00] VITALS: BP 127/58
[2021-08-03] MEDS: KCL 20 MEQ TAB (K-DUR) PO SCH (06:11)
[2021-08-03 06:38] LABS: BASOPHILS # (AUTO) 0.1 10^3/uL (0.0-0.1); BASOPHILS % (AUTO) 1 % (0-10); EOSINOPHILS # (AUTO) 0.3 10^3/uL (0.0-0.3); EOSINOPHILS % (AUTO) 6 % (0-10); HEMATOCRIT 31 % (35-52); HEMOGLOBIN 9.6 g/dL (11.5-16.0); LYMPHOCYTES # (AUTO) 0.8 10^3/uL (1.0-4.0); LYMPHOCYTES % (AUTO) 16 % (12-44); MEAN CORPUSCULAR HEMOGLOBIN 29 pg (25-34); MEAN CORPUSCULAR HGB CONC 31 g/dL (32-36); MEAN CORPUSCULAR VOLUME 93 fL (80-99); MEAN PLATELET VOLUME 9.1 fL (9.0-12.2); MONOCYTES # (AUTO) 0.7 10^3/uL (0.0-1.0); MONOCYTES % (AUTO) 15 % (0-12); NEUTROPHILS % (AUTO) 62 % (42-75); PLATELET COUNT 340 10^3/uL (130-400); WHITE BLOOD COUNT 4.9 10^3/uL (4.3-11.0)
[2021-08-03 06:48] LABS: POTASSIUM 3.6 MMOL/L (3.6-5.0)
[2021-08-03 06:50] LABS: CALCIUM 8.2 MG/DL (8.5-10.1)
[2021-08-03 06:54] LABS: CREATININE SERUM 0.69 MG/DL (0.60-1.30)
[2021-08-03 08:00] VITALS: BP 171/79
[2021-08-03] MEDS: amLODIPine 5 MG (NORVASC) TAB PO SCH (08:26)
[2021-08-03] MEDS: DOCUSATE SODIUM 100 MG (COLACE) CAP PO SCH (08:27)
[2021-08-03] MEDS: SENNOSIDES 8.6 MG (SENOKOT) TAB PO SCH (08:27)
[2021-08-03] MEDS: APIXABAN 5 MG (ELIQUIS) TABLET PO SCH (08:27)
[2021-08-03] MEDS: LOSARTAN 50 MG (COZAAR) TAB PO SCH (08:27)
[2021-08-03] MEDS: FUROSEMIDE 40 MG/4 ML INJ (LASIX) IVP SCH (08:27)
[2021-08-03 09:50] VITALS: BP 171/79
--- NOTE | 2021-08-03 18:39 | Discharge Summary ---
Discharge Summary Hospital Course Problems/Dx: (1) Acute respiratory failure with hypoxia Status: Acute (2) Acute heart failure with preserved ejection fraction (HFpEF) Status: Acute (3) Hematoma of right knee region Status: Acute (4) Debility Status: Acute (5) HTN (hypertension) Status: Chronic (6) T2DM (type 2 diabetes mellitus) Status: Chronic (7) DLBCL (diffuse large B cell lymphoma) Status: Chronic Qualifiers: Qualified Codes: C83.30 - Diffuse large B-cell lymphoma, unspecified site (8) PAF (paroxysmal atrial fibrillation) Status: Chronic Hospital Course Date of Admission: Aug 02, 2021 at 11:57 Admission Diagnosis : Acute respiratory failure with hypoxia due to acute on chronic heart failure with preserved ejection fraction Family Physician/Provider: Aakash Santos MD Date of Discharge: 08/03/21 Discharge Diagnosis: Acute respiratory failure with hypoxia due to acute on chronic heart failure with preserved ejection fraction Hospital Course: She Hawkins is a 76 year old female with PMH HTN, T2DM, AFib, COPD, DLBCL, who was admitted with acute respiratory failure with hypoxia due to acute on chronic heart failure with preserved ejection fraction. She was diuresed with Lasix and improved. She was debilitated. She had a knee replacement a few weeks ago which was complicated by hematoma which is improving. She was discharged to inpatient rehab for ongoing therapy needs. Labs and Pending Lab Test: Laboratory Tests 08/03/21 05:51: White Blood Count 4.9, Red Blood Count 3.34L, Hemoglobin 9.6L, Hematocrit 31L, Mean Corpuscular Volume 93, Mean Corpuscular Hemoglobin 29, Mean Corpuscular H emoglobin Concent 31L, Red Cell Distribution Width 19.6H, Platelet Count 340, Mean Platelet Volume 9.1, Immature Granulocyte % (Auto) 0, Neutrophils (%) (Auto) 62, Lymphocytes (%) (Auto) 16, Monocytes (%) (Auto) 15H, Eosinophils (%) (Auto) 6, Basophils (%) (Auto) 1, Neutrophils # (Auto) 3.0, Lymphocytes # (Auto) 0.8L, Monocytes # (Auto) 0.7, Eosinophils # (Auto) 0.3, Basophils # (Auto) 0.1, Immature Granulocyte # (Auto) 0.0, Sodium Level 139, Potassium Level 3.6, Chloride Level 101, Carbon Dioxide Level 27, Anion Gap 11, Blood Urea Nitrogen 7, Creatinine 0.69, Estimat Glomerular Filtration Rate 82, BUN/Creatinine Ratio 10, Glucose Level 97, Calcium Level 8.2L Home Meds Active Reported Hydrocodone-Acetamin 5-325 mg (Hydrocodone/Acetaminophen) 1 Each Tablet 1-2 Tab PO Q6H PRN Docusate Sodium 100 Mg Capsule 100 Mg PO BID PRN Mirtazapine 15 Mg Tablet 15 Mg PO HS Vitamin D3 (Cholecalciferol (Vitamin D3)) 50 Mcg Tablet 100 Mcg PO DAILY Metformin HCl ER (Metformin HCl) 500 Mg Tab.er.24h 500 Mg PO 1700 W/MEAL Losartan Potassium 50 Mg Tablet 50 Mg PO 1700 Eliquis (Apixaban) 2.5 Mg Tablet 2.5 Mg PO BID Flecainide Acetate 100 Mg Tablet 150 Mg PO BID WITH MEALS TAKES 1 & (100NG) TABS Aspirin EC (Aspirin) 81 Mg Tablet. 81 Mg PO DAILY Probiotic (Lactobacillus Combo No.10) 1 Each Capsule 1 Each PO DAILY Refresh Tears (Carboxymethylcellulose Sodium) 15 Ml Drops 2 Drops OU PRN PRN Carvedilol 6.25 Mg Tablet 6.25 Mg PO BID WITH MEALS Citalopram HBr (Citalopram Hydrobromide) 10 Mg Tablet 10 Mg PO BID WITH MEALS Famotidine 20 Mg Tablet 20 Mg PO BID WITH MEALS Preservision Areds Tablet (Vit A/Vit C/Vit E/Zinc/Copper) 1 Each Tablet 2 Tab PO DAILY Premarin (Estrogens Conjugated) 0.45 Mg Tab 0.45 Mg PO DAILY Atorvastatin Calcium 20 Mg Tablet 20 Mg PO 1700 Pantoprazole Sodium 40 Mg Tablet.dr 40 Mg PO DAILY Assessment/Pt Instructions Dischargd to iinpatient rehab Discharge Planning: <30 minutes discharge planning Discharge Instructions Discharge Diet: Low Sodium Diet Activity as Tolerated: Yes Discharge Physical Examination Vital Signs Vital Signs Date Time Temp Pulse Resp B/P (MAP) Pulse Ox O2 Delivery O2 Flow Rate FiO2 08/03/21 09:50 35.6 74 14 171/79 98 Nasal Cannula 2.00 General Appearance: No Apparent Distress, Chronically ill Respiratory: Lungs Clear, Normal Breath Sounds, No Respiratory Distress Cardiovascular: Regular Rate, Rhythm, No Edema, No Murmur Gastrointestinal: Normal Bowel Sounds, Non Tender, Soft Extremity: No Pedal Edema, Swelling (right knee hematoma) Skin: Warm/Dry, Ecchymosis Neurologic/Psychiatric: Alert, Oriented x3, Normal Mood/Affect, Motor Weakness Allergies: Coded Allergies: Cephalexin Monohydrate (Verified Allergy, Unknown, has tolerated Ancef, 08/03/19) Iodinated Contrast Media (Verified Allergy, Unknown, 10/29/19) Penicillins (Verified Allergy, Unknown, Has tolerated Ancef, 08/03/19) ciprofloxacin (Verified Allergy, Unknown, 02/25/21) iodine (Verified Allergy, Unknown, 07/08/19) linaclotide (Verified Allergy, Unknown, 07/28/19) lubiprostone (Verified Allergy, Unknown, 07/28/19) prednisolone (Verified Allergy, Unknown, 02/25/21) sulfamethoxazole (Verified Allergy, Unknown, 02/25/21) trimethoprim (Verified Allergy, Unknown, 02/25/21) venlafaxine HCl (Verified Allergy, Unknown, 07/08/19) Discharge Summary Date of Admission Aug 02, 2021 at 11:57 Date of Discharge Aug 03, 2021 at 09:50 Discharge Date: Aug 03, 2021 Discharge Time: 09:50 Admission Diagnosis Acute respiratory failure with hypoxia due to acute heart failure with preserved ejection fraction Consults/Procedures Consulations Cardiology Discharge Diagnosis Acute respiratory failure with hypoxia Acute heart failure with preserved ejection fraction (1) Acute respiratory failure with hypoxia Status: Acute (2) Acute heart failure with preserved ejection fraction (HFpEF) Status: Acute (3) Hematoma of right knee region Status: Acute (4) Debility Status: Acute (5) HTN (hypertension) Status: Chronic (6) T2DM (type 2 diabetes mellitus) Status: Chronic (7) DLBCL (diffuse large B cell lymphoma) Status: Chronic Qualifiers: Qualified Codes: C83.30 - Diffuse large B-cell lymphoma, unspecified site (8) PAF (paroxysmal atrial fibrillation) Status: Chronic DENISA ESQUIVEL MD Aug 03, 2021 18:39
== END 2021-08-03 09:50 | DRG 291 ==
LOC: EDUNIT# 11:02 → ER 11:03 → 4TH 15:35 → OBSVTOIN 08-02 11:57
PROVIDERS: ADMIT Internal Medicine; ATTEND Internal Medicine
DX: I11.0 Hypertensive heart disease with heart failure (principal); I50.33 Acute on chronic diastolic (congestive) heart failure; J96.01 Acute respiratory failure with hypoxia; C85.90 Non-Hodgkin lymphoma, unspecified, unspecified site; R11.2 Nausea with vomiting, unspecified; J44.9 Chronic obstructive pulmonary disease, unspecified; K21.9 Gastro-esophageal reflux disease without esophagitis; M06.9 Rheumatoid arthritis, unspecified; E11.9 Type 2 diabetes mellitus without complications; F41.9 Anxiety disorder, unspecified; F32.A Depression, unspecified; I48.0 Paroxysmal atrial fibrillation; S80.01XA Contusion of right knee, initial encounter; Z96.651 Presence of right artificial knee joint; D64.9 Anemia, unspecified; E87.6 Hypokalemia; E83.42 Hypomagnesemia; Z92.21 Personal history of antineoplastic chemotherapy; Z79.82 Long term (current) use of aspirin; Z79.84 Long term (current) use of oral hypoglycemic drugs; Z79.899 Other long term (current) drug therapy; Z88.0 Allergy status to penicillin; Z88.2 Allergy status to sulfonamides; Z91.041 Radiographic dye allergy status; Z88.1 Allergy status to other antibiotic agents
CPT/HCPCS: 36415; 71045; 80048; 80053; 83735; 83880; 84484; 85025; 86141; 93005; 93306; 96361; 96374; 96375; G0378

== ENCOUNTER 2021-08-03 09:02 | Inpatient (IN) | payer MEDICARE, OTHER ==
[~2021-08-03] VITALS: Ht 167 cm; Wt 68.5 kg
[2021-08-03 10:21] VITALS: BP 131/57
[2021-08-03] MEDS ORDERED: LACTULOSE SYRUP 10GM/15ML (ENULOSE) 30ML UDC PO PRN (11:15)
[2021-08-03] MEDS ORDERED: ANTACID SUSP 30 ML UDC (MYLANTA) PO PRN (11:15)
[2021-08-03] MEDS ORDERED: CALCIUM CARBONATE 500 MG (TUMS) TAB.CHEW PO PRN (11:15)
[2021-08-03] MEDS ORDERED: ONDANSETRON 4 MG (ZOFRAN) ORAL DISSOLVE TAB PO PRN ×2 (11:15)
[2021-08-03] MEDS ORDERED: ACETAMINOPHEN 325 MG TABLET PO PRN (11:15)
[2021-08-03] MEDS ORDERED: NALOXONE 0.4 MG/ML 1 ML (NARCAN) VIAL IV PRN (11:15)
[2021-08-03] MEDS ORDERED: MELATONIN 3 MG TABLET PO PRN ×2 (11:15)
[2021-08-03] MEDS ORDERED: ALPRAZolam 0.25 MG (XANAX) TAB PO PRN (11:15)
[2021-08-03] MEDS ORDERED: DOCUSATE SODIUM 100 MG (COLACE) CAP PO PRN (11:15)
[2021-08-03] MEDS ORDERED: BISACODYL 10 MG SUPP (DULCOLAX) PR PRN (11:15)
[2021-08-03] MEDS ORDERED: FLEET ENEMA ADULT 1 EA BTL PR PRN (11:15)
[2021-08-03] MEDS ORDERED: guaiFENesin/CODEINE (ROBITUSSIN AC) 10ML UDC PO PRN (11:15)
[2021-08-03] MEDS ORDERED: LOPERAMIDE 2 MG (IMODIUM) TABLET PO PRN (11:15)
[2021-08-03] MEDS ORDERED: polyethylene glycoL POWDER 17 GM (MIRALAX) PACK PO PRN (11:15)
[2021-08-03] MEDS ORDERED: diphenhydrAMINE 25 MG TAB (BENADRYL) PO PRN (11:15)
--- NOTE | 2021-08-03 11:27 | PM&R Post Admission Assessment ---
PM&R HP Date of Visit: Aug 03, 2021 Time of Visit: 13:00 History of Present Illness CC: Debility following severe weakness and CHF HPI: This is a 76yoWF that was admitted to the hospitalist service with acute heart failure, hypoxia, nausea and vomiting. She became very debilitated in a short amount of time. She is now requiring oxygen supplementation. Her appetite is getting a tiny bit better but she will be needing aggressive rehab and strengthening in order to return back home to independent living. She has been in inpatient rehab before. MedSur discharge summary per Dr. Alba: She Hawkins is a 76 year old female with PMH HTN, T2DM, AFib, COPD, DLBCL, who was admitted with acute respiratory failure with hypoxia due to acute on chronic heart failure with preserved ejection fraction. She was diuresed with Lasix and improved. She was debilitated. She had a knee replacement a few weeks ago which was complicated by hematoma which is improving. She was discharged to inpatient rehab for ongoing therapy needs. Past Acwfxnz-Jbkrab-Hoyhqr Hx Past Med/Social Hx: Reviewed Nursing Past Med/Soc Hx, Reviewed and Corrections made Patient Social History Marrital Status: Employed/Student: retired Alcohol Use: Denies Use Smoking Status: Never a Smoker 2nd Hand Smoke Exposure: No Recent Hopitalizations: No Immunizations Up To Date Tetanus Booster (TDap): Unknown Date of Pneumonia Vaccine: Oct 02, 2015 Date of Influenza Vaccine: Jun 08, 2021 Seasonal Allergies Seasonal Allergies: Yes Past Medical History Surgeries: Appendectomy, Bladder Surgery, Cardiac, Gallbladder, Hysterectomy, Orthopedic Currently Using CPAP: No Currently Using BIPAP: No Cardiac: Atrial Fibrillation, Hypertension, Valvular Heart Disease Menopausal Genitourinary: Bladder Infection Gastrointestinal: Gastroesophageal Reflux, Gastrointestinal Bleed, Chronic Constipation, Hiatal Hernia Musculoskeletal: Arthritis, Rheumatoid Arthritis Endocrine: Diabetes, Non-Insulin dep Loss of Vision: Denies Cancer: Lymphoma What Type of Treatment Did You: Chemotherapy Psychosocial: Anxiety, Depression History of Blood Disorders: No Adverse Reaction to Blood Ellis: No Family History No Pertinent Family Hx Occupation: retired PM&R Allergy/Meds/Data Review Allergies Coded Allergies: Cephalexin Monohydrate (Verified Allergy, Unknown, has tolerated Ancef, 08/03/19) Iodinated Contrast Media (Verified Allergy, Unknown, 10/29/19) Penicillins (Verified Allergy, Unknown, Has tolerated Ancef, 08/03/19) ciprofloxacin (Verified Allergy, Unknown, 02/25/21) iodine (Verified Allergy, Unknown, 07/08/19) linaclotide (Verified Allergy, Unknown, 07/28/19) lubiprostone (Verified Allergy, Unknown, 07/28/19) prednisolone (Verified Allergy, Unknown, 02/25/21) sulfamethoxazole (Verified Allergy, Unknown, 02/25/21) trimethoprim (Verified Allergy, Unknown, 02/25/21) venlafaxine HCl (Verified Allergy, Unknown, 07/08/19) Home Medications Scheduled Apixaban (Eliquis), 2.5 MG PO BID, (Reported) Aspirin (Aspirin EC), 81 MG PO DAILY, (Reported) Atorvastatin Calcium (Atorvastatin Calcium), 20 MG PO 1700, (Reported) Carvedilol (Carvedilol), 6.25 MG PO BID WITH MEALS, (Reported) Cholecalciferol (Vitamin D3) (Vitamin D3), 100 MCG PO DAILY, (Reported) Citalopram Hydrobromide (Citalopram HBr), 10 MG PO BID WITH MEALS, (Reported) Estrogens Conjugated (Premarin), 0.45 MG PO DAILY, (Reported) Famotidine (Famotidine), 20 MG PO BID WITH MEALS, (Reported) Flecainide Acetate (Flecainide Acetate), 150 MG PO BID WITH MEALS, (Reported) Lactobacillus Combo No.10 (Probiotic), 1 EACH PO DAILY, (Reported) Losartan Potassium (Losartan Potassium), 50 MG PO 1700, (Reported) Metformin HCl (Metformin HCl ER), 500 MG PO 1700 W/MEAL, (Reported) Mirtazapine (Mirtazapine), 15 MG PO HS, (Reported) Pantoprazole Sodium (Pantoprazole Sodium), 40 MG PO DAILY, (Reported) Vit A/Vit C/Vit E/Zinc/Copper (Preservision Areds Tablet), 2 TAB PO DAILY, (Reported) Scheduled PRN Carboxymethylcellulose Sodium (Refresh Tears), 2 DROPS OU PRN PRN for DRY EYES, (Reported) Docusate Sodium (Docusate Sodium), 100 MG PO BID PRN for CONSTIPATION-1ST LINE, (Reported) Hydrocodone/Acetaminophen (Hydrocodone-Acetamin 5-325 mg), 1-2 TAB PO Q6H PRN for PAIN-MODERATE (5-7), (Reported) Discontinued Medications Clindamycin HCl (Clindamycin HCl), 300 MG PO QID Discontinued Reason: No Longer Taking Clindamycin HCl (Clindamycin HCl), 300 MG PO QID, (Reported) Docusate Sodium (Docusate Sodium), 100 MG PO BID Discontinued Reason: No Longer Taking Doxycycline Hyclate (Doxycycline Hyclate), 100 MG PO BID Discontinued Reason: No Longer Taking Doxycycline Hyclate (Doxycycline Hyclate), 100 MG PO BID, (Reported) Furosemide (Furosemide), 20 MG PO DAILY PRN for SWELLING, (Reported) Discontinued Reason: No Longer Taking Lactobacillus Acidophilus (Probiotic), 1 EACH PO TID Discontinued Reason: No Longer Taking Oxycodone HCl/Acetaminophen (Percocet 5-325 mg Tablet), 1-2 TAB PO Q4H PRN for PAIN-MODERATE (5-7) Discontinued Reason: Duplicate Order Oxycodone Hcl (Oxyir Tablet), 5-10 MG PO Q4H PRN for PAIN-SEVERE (8-10) Discontinued Reason: No Longer Taking Current Medications Current Medications Reviewed Review of Systems Constitutional: see HPI, malaise, weakness EENTM: no symptoms reported Respiratory: dyspnea on exertion Cardiovascular: no symptoms reported Gastrointestinal: no symptoms reported Genitourinary: no symptoms reported Musculoskeletal: joint pain Skin: no symptoms reported Psychiatric/Neurological: No Symptoms Reported All Other Systems Reviewed Negative Unless Noted: Yes Physical Exam Physical Exam Vital Signs Vital Signs - First Documented 08/03/21 10:21 Temp 36.8 Pulse 66 Resp 18 B/P (MAP) 131/57 (81) Pulse Ox 95 O2 Delivery Nasal Cannula O2 Flow Rate 2.00 Capillary Refill : Height, Weight, BMI Height: '" Weight: lbs. oz. kg; 26.78 BMI Method:Estimated General Appearance: No Apparent Distress, WD/WN, Chronically ill, Thin Eyes: Bilateral Eye Normal Inspection, Bilateral Eye PERRL HEENT: PERRL/EOMI, Normal ENT Inspection, Pharynx Normal Neck: Full Range of Motion, Normal Inspection, Non Tender, Supple, Carotid Bruit Respiratory: Chest Non Tender, Lungs Clear, Normal Breath Sounds, No Accessory Muscle Use, No Respiratory Distress Cardiovascular: Regular Rate, Rhythm, No Edema, No Gallop, No JVD, No Murmur, Normal Peripheral Pulses Gastrointestinal: Normal Bowel Sounds, No Organomegaly, No Pulsatile Mass, Non Tender, Soft Back: Normal Inspection, No CVA Tenderness, No Vertebral Tenderness Extremity: Normal Capillary Refill, Normal Inspection, Normal Range of Motion, Non Tender, No Calf Tenderness, No Pedal Edema Neurologic/Psychiatric: Alert, Oriented x3, No Motor/Sensory Deficits, biosecurity officer II- XII Norm as Tested, Depressed Affect, Motor Weakness (Generalized) Skin: Normal Color, Warm/Dry Lymphatic: No Adenopathy PM&R Medical Assessment & Plan REHAB/MEDICAL ASSESSMENT AND PLAN: REHAB IMPAIRMENT GROUP: Debility ETIOLOGIC DIAGNOSIS: Debility The comorbidities that impact the patients function and/or functional outcome by: Advanced age, congestive heart failure, comorbidities, cognition decline REHAB PLAN: The patient is being admitted to our comprehensive inpatient rehabilitation facility and can tolerate the intensity of service consisting of at least: 180 minutes of therapy a day, 5 out of 7 days a week Rehab treatment will consist of: PT and OT will focus on increasing ambulatory skills with the use of a walker with increased ADL's in order to return back home The patient/family has a good understanding of our discharge process and will benefit from an interdisciplinary inpatient rehabilitation program. The patient has potential to make improvement and is in need of at least two of the following multidisciplinary therapies including but not limited to physical, occupational, speech, and prosthetics and orthotics. Additionally the patient will need services from respiratory, nutritional services, wound care, psychology, etc. (Customize this to each patient). Given the patients complex condition and risk of further medical complications, rehabilitation services cannot be safely or effectively provided at a lower level of care such as a fdc facility. BARRIERS TO DISCHARGE: Advanced age with severe comorbidities ESTIMATED LOS: 14 days DISPOSITION: Home RELEVANT CHANGES SINCE PREADMISSION SCREENING: I have compared the patients medical and functional status at the time of the preadmission screening and there are: No changes PROGNOSIS: Fair REHABILITATION GOALS: 1. PT and OT will focus on increasing ambulatory skills with the use of a walker with increased ADL's in order to return back home All the above goals were reviewed with the patient and he/she is in agreement. By signing this document, I acknowledge that I have personally performed a full physical examination on this patient within 24 hours of admission to this inpatient rehabilitation facility and have determined the patient to be able to tolerate the above course of treatment at an intensive level for a reasonable period of time. I will be completing a detailed individualized Plan of Care for this patient by day #4 of the patients stay based upon the Preadmission Screen, the Post-Admission Evaluation, and the therapy evaluations. Admission Dx/Comorbidities: (1) Debility Status: Acute ICD Codes: R53.81 - Other malaise (2) DLBCL (diffuse large B cell lymphoma) Status: Chronic ICD Codes: C83.30 - Diffuse large B-cell lymphoma, unspecified site (3) PAF (paroxysmal atrial fibrillation) Status: Chronic ICD Codes: I48.0 - Paroxysmal atrial fibrillation (4) Hematoma of right knee region Status: Acute ICD Codes: S80.01XA - Contusion of right knee, initial encounter (5) Acute heart failure with preserved ejection fraction (HFpEF) Status: Acute ICD Codes: I50.31 - Acute diastolic (congestive) heart failure (6) Acute respiratory failure with hypoxia Status: Acute ICD Codes: J96.01 - Acute respiratory failure with hypoxia (7) T2DM (type 2 diabetes mellitus) Status: Chronic ICD Codes: E11.9 - Type 2 diabetes mellitus without complications (8) HTN (hypertension) Status: Chronic ICD Codes: I10 - Essential (primary) hypertension (9) Nausea and vomiting Status: Acute ICD Codes: R11.2 - Nausea with vomiting, unspecified Assessment/Plan Assessment and Plan Assess & Plan/Chief Complaint Assessment: s/p acute CHF Generalized weakness and debility Recent right knee replacement requiring IRF services complicated with hematoma recently Fall risk History of lymphoma Paroxysmal atrial fibrillation History of recurrent GI bleeds h/o constipation Diabetes Hypertension Mild cognitive decline h/o severe iron deficiency requiring transfusion and iron infusions Diabetes Plan: Appreciate cardiology Inpatient rehab protocol Pain control Increase nutrition JEANNE HENSON DO Aug 03, 2021 11:27
--- NOTE | 2021-08-03 11:53 | Occupational Therapy Eval ---
OT Evaluation-General/PLF Medical Diagnosis Admission Date Aug 03, 2021 at 10:41 Medical Diagnosis: debility Onset Date: Aug 03, 2021 Therapy Diagnosis Therapy Diagnosis: weakness Referral Physician: Jamir Referral Reason: Evaluation/Treatment Medical History Pertinent Medical History: Atrial Fib, COPD, DM, Dementia, HTN, Lymphoma, Rheumatoid Arthritis Additional Medical History Bladder Surgery, Atrial Fibrillation, Hypertension, Valvular Heart Disease, Gastroesophageal Reflux, Gastrointestinal Bleed, Chronic Constipation, Hiatal Hernia, Rheumatoid Arthritis, Diabetes, Lymphoma, Anxiety, Depression Current History ED due to dry heaves and headache. Admit to ARU 08/03/21 Social History Home: Single Level Current Living Status: Spouse Entry Into Home: Ramp, Stairs With Railing Steps Into Home: 2 ADL-Prior Level of Function SCALE: Activities may be completed with or without assistive devices. 5-Zpgniwhjoy-ccncbnv completes the activity by him/herself with no assistance from a helper. 5-Set-up or Clean-up Assistance-helper sets up or cleans up; patient completes activity. [place] assists only prior to or following the activity. 4-Supervision or Touching Assistance-helper provides verbal cues and/or touching/steadying and/or contact guard assistance as patient completes activity. Assistance may be provided throughout the activity or intermittently. 3-Partial/Moderate Assistance-helper does LESS THAN HALF the effort. [place] lifts, holds or supports trunk or limbs, but provides less than half the effort. 2-Substantial/Maximal Assistance-helper does MORE THAN HALF the effort. [place] lifts or holds trunk or limbs and provides more than half the effort. 6-Zlfhfryee-jkedqw does ALL the effort. Patient does none of the effort to complete the activity. Or, the assistance of 2 or more helpers is required for the patient to complete the activity. If activity was not attempted, code reason: 7-Patient Refused. 9-Not Applicable-not attempted and the patient did not perform the activity before the current illness, exacerbation or injury. 10-Not Attempted due to Environmental Limitations-(lack of equipment, weather restraints, etc.). 88-Not Attempted due to Medical Conditions or Safety Concerns. ADL PLOF Comments Pt reports her assists her at baseline with bathing and dressing. He helps wash/dry lower legs/feet, assists with footwear, and assists threading leg s into pants. She is able to complete toileting herself. she has a walk in shower with shower chair and grab bars, and tall toilet. Self Care: Needed Some Help Functional Cognition: Needed Some Help DME/Equipment: Bath Chair, Grab Bars, Shower, Tall Toilet DME/Equipment Comments FWW OT Current Status Subjective Pt agreeable to OT evaluation. Mental Status/Objective Patient Orientation: Person, Place, Situation Attachments: Oxygen (2-3L) Current Glasses/Contacts: Yes Hearing Aids: Yes Dentures/Partials: Yes Hand Dominance: Left Upper Extremity ROM WFL Upper Extremity Coordination WFL Upper Extremity Sensation WFL Upper Extremity Strength grossly 3+/5 ADL-Treatment Eating (QC): 5 (set up with breakfast per pt report.) Oral Hygiene (QC): 4 (SBA seated at sink. Pt required 1 verbal cue for sequencing.) Shower/Bathe Self (QC): 4 (SBA, pt able to wash/dry all parts.) Upper Body Dressing (QC): 5 (set up with button up shirt.) Lower Body Dressing (QC): 4 (SBA) On/Off Footwear (QC): 4 (Supervision) Toileting Hygiene (QC): 4 (SBA) Other Treatments Pt transferred to ARU, OT evaluation complete. Pt provided information about PLOF and home set up. OT educated pt on ARU process/expectations. Pt taken into bathroom, transferred to NM using GBs, SBA. Pt doffed clothes, completed shower. Pt transferred back to [facility], states need to toilet, transferring from / to [facility] let via GBs, SBA. Pt finished drying UEs that she had missed. Required verbal cue to remember to use the bathroom while she is on the toilet. After toileting, pt transferred back to / to don clothes. Pt sat at sink to complete oral care, states she is done, but requires verbal cue in order to remember to put top dentures back in. Pt taken to therapy gym. OT assisted pt with ordering lunch. PT present for evaluation, then OT/PT cotreat due to skill of 2 clinicians required that a rehabilitation physician could not perform in order to coordinate UE/LEs, decrease fall risk, and due to pt's limitations in strength, activity tolerance, and decrease in O2 saturation with activity. OT focused on UE placement, cues for sequencing and safety, ADLs, PT focused on LE placement, gross overall movement, and transfers/mobility. Pt completed functional transfers/mobility, using FWW, in/out car, uneven surface, 1 step, with rest breaks as needed. Pt's O2 saturation dropped to low 70%'s, taking a little while to recover. O2 turned from 2L to 3L NC. Pt states need to toilet again, taken to bathroom, transferred to toilet to complete toileting, then back to w/c. Pt returned to therapy gym. Post tx, pt with PT for continued tx, all needs met. Education OT Patient Education: Correct positioning, Energy conservation, Exercise program, Modified ADL techniques, Progress toward Goal/Update tx plan, Purpose of tx/functional activities, Rehab process, Safety issues, Transfer techniques Teaching Recipient: Patient Teaching Methods: Discussion Response to Teaching: Reinforcement Needed OT Short Term Goals Short Term Goals Time Frame: Aug 08, 2021 Shower/bathe self: 5 Lower body dressin Putting on/taking off footwear: 5 OT Fdc Goals Fdc Goals Time Frame: Aug 17, 2021 Eating (QC): 6 Oral Hygiene (QC): 6 Toileting Hygiene (QC): 6 Shower/Bathe Self (QC): 6 Upper Body Dressing (QC): 6 Lower Body Dressing (QC): 6 On/Off Footwear (QC): 6 Additional Goals: 1-Demonstrate ADL Tasks, 2-Verbalize Understanding, 3- ImproveStrength/Sharad 1=Demonstrate adherence to instructed precautions during ADL tasks. 2=Patient will verbalize/demonstrate understanding of assistive devices/modifications for ADL. 3=Patient will improve strength/tolerance for activity to enable patient to perform ADL's. OT Education/Plan Problem List/Assessment Assessment: Decreased Activ Tolerance, Decreased Safety Aware, Decreased UE Strength, Impaired Cognition, Impaired Funct Balance, Impaired I ADL's, Impaired Self-Care Skills Discharge Recommendations Plan/Recommendations: Continue POC Treatment Plan/Plan of Care Patient would benefit from OT for education, treatment and training to promote independence in ADL's, mobility, safety and/or upper extremity function for ADL's. Plan of Care: ADL Retraining, Functional Mobility, Group Exercise/Act as Ind, UE Funct Exercise/Act Treatment Duration: Aug 17, 2021 Frequency: At least 5 of 7 days/Wk (IRF) Time/GCodes Start Time: 09:50 Stop Time: 11:30 Total Time Billed (hr/min): 90 Billed Treatment Time 5738-9311 OT eval/tx, [id number] PT eval (not billed), [id number] Cotreat 1, EVL (10'), ADL 4 (65'), FA (15') RYAN DUNNE OT Aug 03, 2021 11:53
--- NOTE | 2021-08-03 12:54 | Physical Therapy Evaluation ---
PT Evaluation-General Medical Diagnosis Admission Date Aug 03, 2021 at 10:41 Medical Diagnosis: debility Onset Date: Aug 03, 2021 Therapy Diagnosis Therapy Diagnosis: impaired mobility, strength, endurance, ROM Referral Physician: Rosey Bowie DO Reason for Referral: Evaluation/Treatment Medical History Pertinent Medical History: Atrial Fib, COPD, DM, Dementia, HTN, Lymphoma, Rheumatoid Arthritis Additional Medical History Patient had a left TKA approx a month ago. Reviewed History: Yes Social History Home: Single Level Current Living Status: Spouse Entry Into Home: Ramp, Stairs With Railing PT Steps Into Home: 2 Prior Prior Level of Function SCALE: Activities may be completed with or without assistive devices. 4-Juwsgdaigc-vkziiyx completes the activity by him/herself with no assistance from a helper. 5-Set-up or Clean-up Assistance-helper sets up or cleans up; patient completes activity. [place] assists only prior to or following the activity. 4-Supervision or Touching Assistance-helper provides verbal cues and/or touching/steadying and/or contact guard assistance as patient completes activity. Assistance may be provided throughout the activity or intermittently. 3-Partial/Moderate Assistance-helper does LESS THAN HALF the effort. [place] lifts, holds or supports trunk or limbs, but provides less than half the effort. 2-Substantial/Maximal Assistance-helper does MORE THAN HALF the effort. [place] lifts or holds trunk or limbs and provides more than half the effort. 3-Blmimjvlf-avirga does ALL the effort. Patient does none of the effort to complete the activity. Or, the assistance of 2 or more helpers is required for the patient to complete the activity. If activity was not attempted, code reason: 7-Patient Refused. 9-Not Applicable-not attempted and the patient did not perform the activity before the current illness, exacerbation or injury. 10-Not Attempted due to Environmental Limitations-(lack of equipment, weather restraints, etc.). 88-Not Attempted due to Medical Conditions or Safety Concerns. Bed Mobility: 6 Transfers (B,C,W/C): 6 Gait: 6 Stairs: 6 Prior Devices Use: Walker Prior to the total knee she says she just occasionally used a walker. PT Evaluation-Current Subjective Patient in therapy gym pre tx, agrees to PT, has 5/10 pain in right knee. Will be co-treating with OT for part of tx due to poor patient mobility, strength, endurance, severe pain with activity, coordinate UE and LE during activity, SOB and O2 drop with activity, safety and reduce risk of falls. Pt/Family Goals to be independent at home Objective Patient Orientation: Person, Place, Situation Attachments: Oxygen ROM/Strength ROM Lower Extremities WNL except for right knee Strength Lower Extremities Right knee not tested. LLE (hip flexion 3/5, knee flexion 4/5, knee extension 4/5, dorsiflexion 4/5), RLE (hip flexion 3/5, dorsiflexion 4/5) Sensory Vision: Wears Glasses Hearing: Functional Hand Dominance: Left Sensation Right Lower Extremit: Intact Sensation Left Lower Extremity: Intact Transfers Roll Left & Right (QC): 6 Sit to Lying (QC): 4 Lying to Sitting/Side of Bed(Q: 4 Sit to Stand (QC): 4 Chair/Pcl-xn-Vzmwh Xfer(QC): 4 Toilet Transfer (QC): 4 Car Transfer (QC): 4 Patient performs rolling with independence, supine <-> sit SBA, sit <-> stand and transfers CGA, car transfer CGA. Patient needs occasional cues for positioning and safety. Gait Does the Patient Walk?: Yes Mode of Locomotion: Walk Anticipated Mode of Locomotion: Walk Walk 10 feet (QC): 4 Walk 50 ft with 2 Turns(QC): 4 Walk 150 ft (QC): 88 Walking 10ft/uneven surface-QC: 4 Distance: 100', 50'x2 Gait Assistive Device: FWW Comments/Gait Description Patient can ambulate 100' with a rolling walker with CGA (including 50' with at least 2 turns of 90 degrees and 10' over an uneven surface). Patient keeps a flexed right knee, gait is antalgic, slow Wheelchair Training Wheel 50 ft with 2 turns (QC): 9 Wheel 150 ft (QC): 9 Stairs #of Steps: 1 1 Step (curb) (QC): 4 4 Steps (QC): 88 12 Steps (QC): 88 Walking Assistive Device: Walker Patient can go up and down 1 step using a rolling walker with CGA and cues for foot placement. Balance Sitting Static: Normal Sitting Dynamic: Normal Standing Static: Fair Standing Dynamic: Fair Picking up an Object (QC): 4 Treatment NuSstep level 4 for 15 min. PT performed bed mobility and transfers, ambulation , functional strengthening, stairs, OT performed UE positioning and safety during activity, toileting. Assessment/Needs Patient in recliner post tx with nurse call, phone, tray, all needs met. Patient has impaired mobility, strength, endurance, ROM. Patient's O2 drops drastically into the 70's with ambulation while on 2L of O2. Rehab Potential: Fair PT Short Term Goals Short Term Goals Time Frame: Aug 10, 2021 Roll Left & Right: 6 Sit to lyin Lying to sitting on side of be: 6 Sit to stand: 4 (SBA) Chair/nlz-jm-jrxwv transfer: 4 (SBA) Walk 10 feet: 4 (SBA) Walk 50 feet with two turns: 4 (SBA) Walk 150 feet: 4 (SBA) PT Mcc Goals Mcc Goals PT Mcc Goals Time Frame: Aug 24, 2021 Roll Left & Right (QC): 6 Sit to Lying (QC): 6 Lying-Sitting on Side/Bed(QC): 6 Sit to Stand (QC): 6 Chair/Rrt-gn-Omwkc Xfer(QC): 6 Toilet Transfer (QC): 6 Car Transfer (QC): 6 Does the Patient Walk: Yes Walk 10 feet (QC): 6 Walk 50ft with 2 Turns (QC): 6 Walk 150 ft (QC): 6 Walking 10ft on Uneven Surface: 6 1 Step (curb) (QC): 4 4 Steps (QC): 4 12 Steps (QC): 88 Picking up an Object (QC): 6 Wheel 50 feet with 2 turns (QC: 9 Wheel 150 feet: 9 PT Plan Problem List Problem List: Activity Tolerance, Functional Strength, Safety, Balance, Gait, Transfer, Bed Mobility, ROM Treatment/Plan Treatment Plan: Continue Plan of Care Treatment Plan: Bed Mobility, Education, Functional Activity Sharad, Functional Strength, Group Therapy, Gait, Safety, Therapeutic Exercise, Transfers Treatment Duration: Aug 24, 2021 Frequency: At least 5 of 7 days/Wk (IRF) Estimated Hrs Per Day: 1.5 hours per day Patient and/or Family Agrees t: Yes Safety Risks/Education Patient Education: Gait Training, Transfer Techniques, Steps, Correct Positioning, Safety Issues Teaching Recipient: Patient Teaching Methods: Demonstration, Discussion Response to Teaching: Reinforcement Needed Discharge Recommendations Plan Patient will perform bed mobility and transfer training, balance and endurance training, functional strengthening, stair training, gait training, and education, to improve functional mobility and independence at home. Therapy Discharge Recommendati: Scheduled Assistance, Home & Family, Post Acute PT Time/GCodes Time In: 1105 Time Out: 1205 Total Billed Treatment Time: 60 Total Billed Treatment 1 visit EVM 10' EX 15' FA 35' PT eval from [id number], co-treat from [id number], PT from [id number] RENEE WHITE PT Aug 03, 2021 12:54
--- NOTE | 2021-08-03 13:38 | ST Cognitive Linguistic Eval ---
Speech Evaluation-General Medical Diagnosis debility Onset Date: Aug 03, 2021 Therapy Diagnosis Therapy Diagnosis: Cognitive-communication Referral Referring Physician: Dr. Bowie Medical History Pertinent Medical History: Atrial Fib, COPD, DM, Dementia, HTN, Lymphoma, Rheumatoid Arthritis Reviewed History: Yes Social History Current Living Status: Spouse Speech PLF-Current Status Prior Level of Function The patient lives in her own home with her where he assists her with her daily needs s/p knee replacement. Subjective Patient was pleasant and cooperative with the cognitive assessment. Her was present in the room. Language Eval: Auditory Comprehends Simple Yes/No Ques: Functional Indent/Objects Multiple [place]: Functional Ident/Pics in Multiple [place]: Functional Follows 1-Step Commands: Functional Follows Complex Directions: Mild Follows General Conversations: Mild Language Eval: Verbal Language Completes Spontaneous Greeting: Functional Produces Auto, Serial Info: Functional Imitates Simple Words/Phrases: Functional Word Finding: Mild Requests Basic Needs: Functional States Basic Personal Info: Functional Expresses Complex Ideas: Mild Objective Cognitive Domain Attention: WNL Memory: Mild Problem Solving: Mild Executive Functions: Mild Visuospatial Skills: WNL Composite Severity Rating: Mild Clock Drawing Severity Rating: Mild Objective Formal/Standardized Tests [facility] Mental Status ([facility]) Results 22/30, Mild Neurocognitive Disorder range of function Oral Motor/Speech Production Within Normal Limits Impression Patient is a pleasant 76 y/o female who was readmitted to the ARU s/p knee replacement/debility. The patient was initially admitted to the ARU in early July due to surgery. She was released to return home with her just prior to Thanks. She has been in the ED on several occasions since that time due to severe pain and other health issues. The patient was admitted to the ARU this date for debility due to the pain for strengthening and functional improvement. The patient was given the SLUMS at bedside with a score of 22/30 obtained. This score is the low end of MNCD range of function and indicates the need for further ST services. Therapy will focus on achieving the highest functional level for safety, memory and recall of new information. Speech Patient Assess Expression of Ideas/Wants: Exhibits (3) Understanding Verbal Content: Usually Understands (3) Brief Interview-Mental Status: Yes Repetition of Three Words: Three (3) Temporal Orientation: Year: Correct (3) Temporal Orientation: Month: Accurate within 5 days(2) Temporal Orientation: Day: Correct (1) Recall : Wear to say "Sock": Yes,after cueing (1) Recall : Color: No, could not recall (0) Recall : Bed: Yes,after cueing (1) Memory/Recall Ability: Current season, That he or she is in a hsp/hsp unit Speech Short Term Goals Short Term Goals Short Term Goals 1) The patient will complete memory activities related to her daily routine at 80% or greater with minimal cues. 2) The patient will complete safety awareness activities related to her daily routine at 80% or greater with minimal cues. 3) The patient will complete problem solving activities related to her daily routine at 80% or greater with minimal cues. Speech-Plan Patient/Family Goals Patient/Family Goals: Patient plans on returning to her home where she lives with her . Treatment Plan Speech Therapy Treatment Plan: Continue Plan of Care Treatment Duration: Aug 17, 2021 Frequency: 4 times per week (Patient will receive skilled ST 4-5x per week) Estimated Hrs Per Day: .5 hour per day Rehab Potential: Fair Barriers to Learning: Patient's recent set back with health, age, mild cognitive deficits Pt/Family Agrees to Plan: Yes Safety Risks/Education Teaching Recipient: Patient, Significant Other Teaching Methods: Discussion Response to Teaching: Verbalize Understanding Education Topics Provided: Safety within her room, communication of wants/needs Time Speech Therapy Time In: 13:00 Speech Therapy Time Out: 13:30 Total Billed Time: 30 Billed Treatment Time 1, KAMILA NG [facility] ST Aug 03, 2021 13:38
[2021-08-03] MEDS: ONDANSETRON 4 MG/2 ML (SDV) Z0FRAN IV PRN (19:29)
[2021-08-03 20:00] VITALS: BP 125/60
[2021-08-03] MEDS: APIXABAN 5 MG (ELIQUIS) TABLET PO SCH (20:40)
[2021-08-03] MEDS: SENNA W/DOCUSATE (SENOKOT S) TABLET PO SCH (20:40)
[2021-08-03] MEDS: SENNOSIDES 8.6 MG (SENOKOT) TAB PO SCH (20:44)
[2021-08-03] MEDS: polyethylene glycoL POWDER 17 GM (MIRALAX) PACK PO SCH (20:44)
[2021-08-03] MEDS: DOCUSATE SODIUM 100 MG (COLACE) CAP PO SCH (20:44)
[2021-08-03] MEDS ORDERED: DOCUSATE SODIUM 100 MG (COLACE) CAP PO SCH (21:00)
[2021-08-04] MEDS: ONDANSETRON 4 MG/2 ML (SDV) Z0FRAN IV PRN ×3 (03:07→16:31)
[2021-08-04 06:29] LABS: BASOPHILS # (AUTO) 0.1 10^3/uL (0.0-0.1); BASOPHILS % (AUTO) 1 % (0-10); EOSINOPHILS # (AUTO) 0.3 10^3/uL (0.0-0.3); EOSINOPHILS % (AUTO) 5 % (0-10); HEMATOCRIT 33 % (35-52); HEMOGLOBIN 10.2 g/dL (11.5-16.0); LYMPHOCYTES # (AUTO) 0.8 10^3/uL (1.0-4.0); LYMPHOCYTES % (AUTO) 15 % (12-44); MEAN CORPUSCULAR HEMOGLOBIN 29 pg (25-34); MEAN CORPUSCULAR HGB CONC 31 g/dL (32-36); MEAN CORPUSCULAR VOLUME 94 fL (80-99); MEAN PLATELET VOLUME 8.9 fL (9.0-12.2); MONOCYTES # (AUTO) 0.8 10^3/uL (0.0-1.0); MONOCYTES % (AUTO) 14 % (0-12); NEUTROPHILS # (AUTO) 3.6 10^3/uL (1.8-7.8); NEUTROPHILS % (AUTO) 65 % (42-75); PLATELET COUNT 332 10^3/uL (130-400); WHITE BLOOD COUNT 5.6 10^3/uL (4.3-11.0)
[2021-08-04 06:49] LABS: ALBUMIN 2.9 GM/DL (3.2-4.5); POTASSIUM 3.6 MMOL/L (3.6-5.0)
[2021-08-04 06:50] LABS: CALCIUM 8.3 MG/DL (8.5-10.1)
[2021-08-04 06:53] LABS: BILIRUBIN,TOTAL 0.6 MG/DL (0.1-1.0)
[2021-08-04 06:55] LABS: CREATININE SERUM 0.73 MG/DL (0.60-1.30)
[2021-08-04] MEDS: KCL 20 MEQ TAB (K-DUR) PO SCH (07:31)
[2021-08-04] MEDS: LOSARTAN 50 MG (COZAAR) TAB PO SCH (08:47)
[2021-08-04] MEDS: APIXABAN 5 MG (ELIQUIS) TABLET PO SCH ×2 (08:47→20:38)
[2021-08-04] MEDS: DOCUSATE SODIUM 100 MG (COLACE) CAP PO SCH ×2 (08:48→19:54)
[2021-08-04] MEDS: SENNOSIDES 8.6 MG (SENOKOT) TAB PO SCH ×2 (08:48→19:56)
[2021-08-04] MEDS: amLODIPine 5 MG (NORVASC) TAB PO SCH (08:48)
[2021-08-04] MEDS: SENNA W/DOCUSATE (SENOKOT S) TABLET PO SCH ×2 (08:48→20:38)
[2021-08-04] MEDS: polyethylene glycoL POWDER 17 GM (MIRALAX) PACK PO SCH ×2 (08:48→19:55)
[2021-08-04 08:52] VITALS: BP 142/64
--- NOTE | 2021-08-04 08:53 | Physical Therapy Daily Note ---
PT Daily Note-Current Subjective Patient in bed pre tx, agrees to PT, has 5/10 pain in right knee. Appearance Patient in restroom post tx, instructed to call nurse when done. Mental Status Patient Orientation: Person, Place, Situation Attachments: Oxygen Transfers SCALE: Activities may be completed with or without assistive devices. 2-Flhdmcrzgx-oekptix completes the activity by him/herself with no assistance from a helper. 5-Set-up or Clean-up Assistance-helper sets up or cleans up; patient completes activity. [place] assists only prior to or following the activity. 4-Supervision or Touching Assistance-helper provides verbal cues and/or touching/steadying and/or contact guard assistance as patient completes activity. Assistance may be provided throughout the activity or intermittently. 3-Partial/Moderate Assistance-helper does LESS THAN HALF the effort. [place] lifts, holds or supports trunk or limbs, but provides less than half the effort. 2-Substantial/Maximal Assistance-helper does MORE THAN HALF the effort. [place] lifts or holds trunk or limbs and provides more than half the effort. 0-Knqhmshbr-zsjhqp does ALL the effort. Patient does none of the effort to complete the activity. Or, the assistance of 2 or more helpers is required for the patient to complete the activity. If activity was not attempted, code reason: 7-Patient Refused. 9-Not Applicable-not attempted and the patient did not perform the activity before the current illness, exacerbation or injury. 10-Not Attempted due to Environmental Limitations-(lack of equipment, weather restraints, etc.). 88-Not Attempted due to Medical Conditions or Safety Concerns. Roll Left & Right (QC): 4 Lying to Sitting/Side of Bed(Q: 4 Sit to Stand (QC): 4 Chair/Pbi-iu-Pnlcg Xfer(QC): 4 Gait Training Distance: 100'x2 Walk 10 feet (QC): 4 Walk 50 ft with 2 Turns(QC): 4 Gait Persons Needed: 1 Gait Assistive Device: FWW Slow but steady ambulation, had to sit down after 100' due to fatigue and SOB, however O2 was 98% Treatments bed mobility and transfers, ambulation Assessment Current Status: Poor Progress SOB is preventing patient from improving distance of ambulation PT Short Term Goals Short Term Goals Time Frame: Aug 10, 2021 Roll Left & Right: 6 Sit to lyin Lying to sitting on side of be: 6 Sit to stand: 4 (SBA) Chair/kow-ru-glsbm transfer: 4 (SBA) Walk 10 feet: 4 (SBA) Walk 50 feet with two turns: 4 (SBA) Walk 150 feet: 4 (SBA) PT Medical Historian Goals Medical Historian Goals PT Group Home Goals Time Frame: Aug 24, 2021 Roll Left & Right (QC): 6 Sit to Lying (QC): 6 Lying-Sitting on Side/Bed(QC): 6 Sit to Stand (QC): 6 Chair/Qgt-oc-Vwsty Xfer(QC): 6 Toilet Transfer (QC): 6 Car Transfer (QC): 6 Does the Patient Walk: Yes Walk 10 feet (QC): 6 Walk 50ft with 2 Turns (QC): 6 Walk 150 ft (QC): 6 Walking 10ft on Uneven Surface: 6 1 Step (curb) (QC): 4 4 Steps (QC): 4 12 Steps (QC): 88 Picking up an Object (QC): 6 Wheel 50 feet with 2 turns (QC: 9 Wheel 150 feet: 9 PT Plan Problem List Problem List: Activity Tolerance, Functional Strength, Safety, Balance, Gait, Transfer, Bed Mobility, ROM Treatment/Plan Treatment Plan: Continue Plan of Care Treatment Plan: Bed Mobility, Education, Functional Activity Sharad, Functional Strength, Group Therapy, Gait, Safety, Therapeutic Exercise, Transfers Treatment Duration: Aug 24, 2021 Frequency: At least 5 of 7 days/Wk (IRF) Estimated Hrs Per Day: 1.5 hours per day Patient and/or Family Agrees t: Yes Safety Risks/Education Patient Education: Gait Training, Transfer Techniques, Correct Positioning, Safety Issues Teaching Recipient: Patient Teaching Methods: Demonstration, Discussion Response to Teaching: Reinforcement Needed Time/GCodes Time In: 0830 Time Out: 0840 Total Billed Treatment Time: 10 Total Billed Treatment 1 visit GT 10' RENEE WHITE PT Aug 04, 2021 08:53
--- NOTE | 2021-08-04 09:21 | Individualized Plan of Care ---
Individualized Plan of Care Rehab Nursing IPOC Order Admission Date Aug 03, 2021 at 10:41 Current Orders Orders Transfer - Bed/Room/Location (08/03/21 10:26) Sodium 2g (2000 Mg) (08/03/21 Lunch) Admission Order(Inpt,Obs,Sdc) (08/03/21 11:08) Vital Signs: Per Unit Policy ( 08,16,00 (08/03/21 11:08) Juan R Hose (08/03/21 11:08) Sequential Compression Device (08/03/21 11:08) Protein Scientist-Inpt Rehab Con (08/03/21 11:08) Rehab Nursing Orders-Ipoc (08/03/21 11:08) Physical Therapy Rehab Orders (08/03/21 11:08) Occupational Therapy Rehab Ord (08/03/21 11:08) Speech Therapy Rehab Orders (08/03/21 11:08) Cbc With Automated Diff (08/04/21 06:00) Comprehensive Metabolic Panel (08/04/21 06:00) Precautions (Aru) (08/03/21 11:08) Weekly Weight WEEK (08/03/21 11:08) Rehab-Intensity Of Therapy (08/03/21 11:08) Initiate Admission Nursing Pro .admission (08/03/21 11:08) Alprazolam Tablet (Xanax Tablet) (08/03/21 11:15) Calcium Carbonate Chew Tablet (Antacid C (08/03/21 11:15) Diphenhydramine Tablet (Benadryl Tablet) (08/03/21 11:15) Docusate Sodium Capsule (Colace Capsule) (08/03/21 21:00) Docusate Sodium Capsule (Colace Capsule) (08/03/21 11:15) Bisacodyl Suppository (Dulcolax Supposit (08/03/21 11:15) Lactulose Oral Solution (Enulose Oral So (08/03/21 11:15) Na Phos/Na Biphos Enema (Fleet Enema Devan (08/03/21 11:15) Guaifenesin/Codeine Syrup (Robitussin Ac (08/03/21 11:15) Loperamide Tablet (Imodium Tablet) (08/03/21 11:15) Melatonin Tablet (Melatonin Tablet) (08/03/21 11:15) Polyethylene Glycol Powder Pkt (Miralax (08/03/21 21:00) Ondansetron Oral Dissolve Tab (Zofran (08/03/21 11:15) Senna S Tablet (Senokot S Tablet) (08/03/21 21:00) Therapeutic Activity Goals: .PRN (08/03/21 11:08) Nursing Communication (Order) (08/03/21 ) Naloxone Injection (Narcan Injection) (08/03/21 11:15) Code/Resuscitation (08/03/21 11:08) Initiate Admission Nursing Pro .admission (08/03/21 11:08) Apixaban Tablet (Eliquis Tablet) (08/03/21 21:00) Furosemide Injection (Lasix Injection) (08/04/21 09:00) Losartan Tablet (Cozaar Tablet) (08/04/21 09:00) Melatonin Tablet (Melatonin Tablet) (08/03/21 11:15) Polyethylene Glycol Powder Pkt (Miralax (08/03/21 11:15) Antacid Suspension (Mylanta Suspension (08/03/21 11:15) Potassium Chloride (Tablet) (K Dur Table (08/04/21 07:00) Sennosides Tablet (Senokot Tablet) (08/03/21 21:00) Acetaminophen Tablet/Caplet (Tylenol T (08/03/21 11:15) Ondansetron Injection (Zofran Injectio (08/03/21 11:15) Amlodipine Tablet (Norvasc Tablet) (08/04/21 09:00) Carvedilol Tablet (Coreg Tablet) (08/03/21 21:00) Oxycodone Immediate Rel Tablet (Oxyir Ta (08/03/21 11:15) Consult Cardiology (08/03/21 11:10) Patient Visit (08/03/21 ) Speech Sound Lang Comp (08/03/21 ) Treat. Speech/Lang/Voice (08/03/21 ) Patient Visit (08/03/21 ) Pt Eval Moderate Complexity (08/03/21 ) Exercise Therap, Ea 15 Min (08/03/21 ) Functional Activities, Ea 15 (08/03/21 ) Patient Visit (08/04/21 ) Gait Training, Ea 15 Min (08/04/21 ) Consult General Surgery (08/04/21 12:57) Pantoprazole Tablet (Protonix Tablet) (08/04/21 13:15) Pantoprazole Tablet (Protonix Tablet) (08/05/21 09:00) Citalopram Tablet (Celexa Tablet) (08/04/21 18:00) Mirtazapine Tablet (Remeron Tablet) (08/04/21 21:00) Sucralfate Tablet (Carafate Tablet) (08/04/21 16:00) Dys1 Pureed (08/04/21 Lunch) Promethazine Injection (Phenergan Injec (08/04/21 15:00) Rehab Nursing Orders: Ongoing Assess. of Cognitive Status, Ongoing Assess. of Function Status, Bladder Management, Bladder Scan, Bladder Training, Bowel Management, Bowel Training, Disease Management & Educaiton, DVT Prophylaxis, Fall Prevention, Fluid/Electrolyte/Nutrition Mgmt, Infection Prevention, Medication Management & Education, Management of Risks & Complications, Management of Skin Intergrity, Nutrition Management, Pain Management, Patient/Family Support, Wound Management Intensity of Therapy to be met Patient to be seen: Min.3h per day/5 of 7d PT IPOC Problem List: Activity Tolerance, Functional Strength, Safety, Balance, Gait, Transfer, Bed Mobility, ROM Treatment Plan: Continue Plan of Care Bed Mobility, Education, Functional Activity Sharad, Functional Strength, Group Therapy, Gait, Safety, Therapeutic Exercise, Transfers Treatment Duration: Aug 24, 2021 Frequency: At least 5 of 7 days/Wk (IRF) Estimated Hrs Per Day: 1.5 hours per day OT IPOC Problems: Decreased Activ Tolerance, Decreased Safety Aware, Decreased UE Str ength, Impaired Cognition, Impaired Funct Balance, Impaired I ADL's, Impaired Self-Care Skills OT Treatment, Training and Edu: Yes Plan of Care: ADL Retraining, Functional Mobility, Group Exercise/Act as Ind, UE Funct Exercise/Act Treatment Duration: Aug 17, 2021 Frequency: At least 5 of 7 days/Wk (IRF) Estimated Hrs Per Day: .[address] IPOC Speech Therapy Treatment Plan: Continue Plan of Care Treatment Duration: Aug 17, 2021 Frequency: 4 times per week (Patient will receive skilled ST 4-5x per week) Estimated Hrs Per Day: .5 hour per day Protein Scientist/Case Mgmt Protein Scientist/Case Managemen: Discharge Planning Dietitian/Tugboat Captain Dietitian/Tugboat Captain to monitor nutritional status and make changes and/or recommendations as needed and work with speech pathology on dietary upgrades as the occur. Physician IPOC Medical Issues being managed closely and that require the 24 hour availability of a physician: Recent surgery with hematoma and new onset CHF will require close monitoring from ortho and Cardiology in order to avoid decompensation Medical Issues: Bowel/Bladder Function, DVT Prophylaxis, Falls Precautions, Fluid/Electrolyte/Nutrition Balance, Infection Protection, Pain Management, Wou nd Care Brief Synthesis of Preadmission Screen, Post-Admission Evaluation, and Therapy Evaluations: PT OT will focus on regaining function with use of walker along with ST focusing on cognition in order to return to living independently Medical Prognosis: Good Anticipated Length of Stay: 7 days JEANNE HENSON DO Aug 04, 2021 09:21
--- NOTE | 2021-08-04 09:21 | PM&R Progress Note ---
Subjective HPI/CC On Admission Date Seen by Provider: Aug 04, 2021 Time Seen by Provider: 12:00 Subjective/Events-last exam Patient doing okay except for nausea and vomiting 08/04/21: Consulting Dr. Corinna Arredondo will be started and Celexa also Starting proton pump inhibitor Carafate will also be added Zofran still maintained Review of Systems General: Fatigue, Malaise Gastrointestinal: Nausea, Vomiting Objective Exam Vital Signs Vital Signs Date Time Temp Pulse Resp B/P (MAP) Pulse Ox O2 Delivery O2 Flow Rate FiO2 08/05/21 01:00 66 08/04/21 20:10 36.9 18 106/50 (68) 95 Nasal Cannula 2.00 Capillary Refill : General Appearance: No Apparent Distress, WD/WN, Chronically ill, Thin HEENT: PERRL/EOMI, Normal ENT Inspection, Pharynx Normal Neck: Full Range of Motion, Normal Inspection, Non Tender, Supple, Carotid Bruit Respiratory: Chest Non Tender, Lungs Clear, Normal Breath Sounds, No Accessory Muscle Use, No Respiratory Distress Cardiovascular: Regular Rate, Rhythm, No Edema, No Gallop, No JVD, No Murmur, Normal Peripheral Pulses Gastrointestinal: Normal Bowel Sounds, No Organomegaly, No Pulsatile Mass, Non Tender, Soft Back: Normal Inspection, No CVA Tenderness, No Vertebral Tenderness Extremity: Normal Capillary Refill, Normal Inspection, Normal Range of Motion, Non Tender, No Calf Tenderness, No Pedal Edema Neurologic/Psychiatric: Alert, Oriented x3, No Motor/Sensory Deficits, 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 FIM Transfers Therapy Code Descriptions/Definitions Functional [place] Measure: 0=Not Assessed/NA 4=Minimal Assistance 1=Total Assistance 5=Supervision or Setup 2=Maximal Assistance 6=Modified [place] 3=Moderate Assistance 7=Complete IndependenceSCALE: Activities may be completed with or without assistive devices. 4-Tiyhswddkk-yronjsp completes the activity by him/herself with no assistance from a helper. 5-Set-up or Clean-up Assistance-helper sets up or cleans up; patient completes activity. Harrison assists only prior to or following the activity. 4-Supervision or Touching Assistance-helper provides verbal cues and/or touching/steadying and/or contact guard assistance as patient completes acti vity. Assistance may be provided throughout the activity or intermittently. 3-Partial/Moderate Assistance-helper does LESS THAN HALF the effort. Harrison lifts, holds or supports trunk or limbs, but provides less than half the effort. 2-Substantial/Maximal Assistance-helper does MORE THAN HALF the effort. Harrison lifts or holds trunk or limbs and provides more than half the effort. 7-Tpyedneog-asatdt does ALL the effort. Patient does none of the effort to complete the activity. Or, the assistance of 2 or more helpers is required for the patient to complete the activity. If activity was not attempted, code reason: 7-Patient Refused. 9-Not Applicable-not attempted and the patient did not perform the activity before the current illness, exacerbation or injury. 10-Not Attempted due to Environmental Limitations-(lack of equipment, weather restraints, etc.). 88-Not Attempted due to Medical Conditions or Safety Concerns. Roll Left to Right (QC): 4 Sit to Lying (QC): 4 Sit to Stand (QC): 4 Chair/[id number]-[id number] Xfer(QC): 4 Car Transfer (QC): 4 Gait Training Does the Patient Walk?: Yes Distance: 100'x2 Walk 10 feet (QC): 4 Walk 50 ft with 2 Turns(QC): 4 Walk 150 ft (QC): 88 Walking 10ft/uneven surface-QC: 4 Gait Persons Needed: 1 Gait Assistive Device: FWW Wheelchair Training Wheel 50 ft with 2 turns (QC): 9 Wheel 150 ft (QC): 9 Stair Training #of Steps: 1 1 Step (curb) (QC): 4 4 Steps (QC): 88 12 Steps (QC): 88 Balance Picking up an Object (QC): 4 ADL-Treatment Eating (QC): 5 (set up with breakfast per pt report.) Oral Hygiene (QC): 4 (SBA seated at sink. Pt required 1 verbal cue for sequencing.) Shower/Bathe Self (QC): 4 (SBA, pt able to wash/dry all parts.) Upper Body Dressing (QC): 5 (set up with button up shirt.) Lower Body Dressing (QC): 4 (SBA) On/Off Footwear (QC): 4 (Supervision) Toileting Hygiene (QC): 4 (SBA) Assessment/Plan Assessment and Plan Assess & Plan/Chief Complaint Assessment: s/p acute CHF Generalized weakness and debility Recent right knee replacement requiring IRF services complicated with hematoma recently Fall risk History of lymphoma Paroxysmal atrial fibrillation History of recurrent GI bleeds h/o constipation Diabetes Hypertension Mild cognitive decline h/o severe iron deficiency requiring transfusion and iron infusions Diabetes Plan: Appreciate cardiology Inpatient rehab protocol Pain control Increase nutrition 08/04/2021: Nausea and vomiting management Consult Dr. Weinstein Proton pump inhibitor and Carafate Remeron and Celexa restart (1) Debility Status: Acute (2) DLBCL (diffuse large B cell lymphoma) Status: Chronic (3) PAF (paroxysmal atrial fibrillation) Status: Chronic (4) Hematoma of right knee region Status: Acute (5) Acute heart failure with preserved ejection fraction (HFpEF) Status: Acute (6) Acute respiratory failure with hypoxia Status: Acute (7) T2DM (type 2 diabetes mellitus) Status: Chronic (8) HTN (hypertension) Status: Chronic (9) Nausea and vomiting Status: Acute JEANNE HENSON DO Aug 04, 2021 09:21
[2021-08-04] MEDS: FUROSEMIDE 40 MG/4 ML INJ (LASIX) IVP SCH (09:23)
[2021-08-04] MEDS ORDERED: PANTOPRAZOLE 40 MG (PROTONIX) TAB PO ONE (13:15)
[2021-08-04] MEDS: SUCRALFATE 1 GM (CARAFATE) TAB PO SCH ×2 (13:52→20:38)
[2021-08-04] MEDS ORDERED: PROMETHAZINE INJ 25 MG/ML (PHENERGAN) AMP IVP PRN (15:00)
--- NOTE | 2021-08-04 15:21 | Consultation - Surgery ---
STEPHAN MEZA 08/04/21 1521: History of Present Illness History of Present Illness Patient Consulted On(lorena/time) 08/04/21 15:08 Date Seen by Provider: Aug 04, 2021 Time Seen by Provider: 14:36 History of Present Illness She Hawkins is a 76 y/o female with a PMH of GERD, hiatal hernia repair, type 2 diabetes, HTN, and HLD who is being seen for nausea. Pt reports that she has been having frequent nausea for the past 2 weeks. Having the nausea daily and experiencing it anywhere from 10-20 times a day with the nausea happening more often lately. She says that during these episodes she will have "dry heaves" usually nothing will come up but sometimes she will regurgitate small pieces of food or fluids she had previous ate or drank. Unsure if there is any blood in the food or fluids that comes up because she always swallows it back down without looking. There is not a certain time of day when the nausea seems to be more frequent. Reports that if she eats spicy food the nausea does worsen. If she takes Zofran the nausea will improve for a couple of hours but will then return. Complains of constant constipation for which she takes laxatives and stool softeners. Denies any blood in her stool but did say she had an episode of "black slime" in her stool last week. Unsure of when her last EGD was and her last colonoscopy she believes was over 10 years ago. Allergies and Home Medications Allergies Coded Allergies: Cephalexin Monohydrate (Verified Allergy, Unknown, has tolerated Ancef, 08/03/19) Iodinated Contrast Media (Verified Allergy, Unknown, 10/29/19) Penicillins (Verified Allergy, Unknown, Has tolerated Ancef, 08/03/19) adhesive tape (Verified Allergy, Unknown, 08/04/21) ciprofloxacin (Verified Allergy, Unknown, 02/25/21) iodine (Verified Allergy, Unknown, 07/08/19) linaclotide (Verified Allergy, Unknown, 07/28/19) lubiprostone (Verified Allergy, Unknown, 07/28/19) prednisolone (Verified Allergy, Unknown, 02/25/21) sulfamethoxazole (Verified Allergy, Unknown, 02/25/21) trimethoprim (Verified Allergy, Unknown, 02/25/21) venlafaxine HCl (Verified Allergy, Unknown, 07/08/19) Patient Home Medication List Apixaban (Eliquis) 2.5 Mg Tablet, 2.5 MG PO BID, (Reported) Entered as Reported by: ALESHIA CONNELLY on 10/31/20 1122 Aspirin (Aspirin EC) 81 Mg Tablet.dr, 81 MG PO DAILY, (Reported) Entered as Reported by: ALESHIA CONNELLY on 10/31/20 1122 Atorvastatin Calcium (Atorvastatin Calcium) 20 Mg Tablet, 20 MG PO 1700, (Reported) Entered as Reported by: BRUNO GRIMALDO on 07/09/19 0910 Carboxymethylcellulose Sodium (Refresh Tears) 15 Ml Drops, 2 DROPS OU PRN PRN for DRY EYES, (Reported) Entered as Reported by: ALESHIA CONNELLY on 12/15/19 1311 Carvedilol (Carvedilol) 6.25 Mg Tablet, 6.25 MG PO BID WITH MEALS, (Reported) Entered as Reported by: BRUNO GRIMALDO on 10/15/19 0954 Cholecalciferol (Vitamin D3) (Vitamin D3) 50 Mcg Tablet, 100 MCG PO DAILY, (Reported) Entered as Reported by: ROB SOLARES on 06/21/21 1425 Citalopram Hydrobromide (Citalopram HBr) 10 Mg Tablet, 10 MG PO BID WITH MEALS, (Reported) Entered as Reported by: BRUNO GRIMALDO on 10/15/19 0954 Last Action: Continued Docusate Sodium (Docusate Sodium) 100 Mg Capsule, 100 MG PO BID PRN for CONSTIPATION-1ST LINE, (Reported) Entered as Reported by: ALESHIA CONNELLY on 08/02/21 1107 Estrogens Conjugated (Premarin) 0.45 Mg Tab, 0.45 MG PO DAILY, (Reported) Entered as Reported by: BRUNO GRIMALDO on 07/09/19 0910 Famotidine (Famotidine) 20 Mg Tablet, 20 MG PO BID WITH MEALS, (Reported) Entered as Reported by: BRUNO GRIMALDO on 10/15/19 0954 Flecainide Acetate (Flecainide Acetate) 100 Mg Tablet, 150 MG PO BID WITH MEALS, (Reported) Entered as Reported by: ALESHIA CONNELLY on 10/31/20 1122 Hydrocodone/Acetaminophen (Hydrocodone-Acetamin 5-325 mg) 1 Each Tablet, 1-2 TAB PO Q6H PRN for PAIN-MODERATE (5-7), (Reported) Entered as Reported by: ALESHIA CONNELLY on 08/02/21 1107 Lactobacillus Combo No.10 (Probiotic) 1 Each Capsule, 1 EACH PO DAILY, (Reported) Entered as Reported by: ALESHIA CONNELLY on 12/15/19 1319 Losartan Potassium (Losartan Potassium) 50 Mg Tablet, 50 MG PO 1700, (Reported) Entered as Reported by: ALESHIA CONNELLY on 10/31/20 112 Metformin HCl (Metformin HCl ER) 500 Mg Tab.er.24h, 500 MG PO 1700 W/MEAL, (Reported) Entered as Reported by: ALESHIA CONNELLY on 10/31/20 112 Mirtazapine (Mirtazapine) 15 Mg Tablet, 15 MG PO HS, (Reported) Entered as Reported by: SHARMAINE SIMPSON on 07/04/21 1444 Last Action: Converted Pantoprazole Sodium (Pantoprazole Sodium) 40 Mg Tablet.dr, 40 MG PO DAILY, (Reported) Entered as Reported by: MARGARET CARDOZA on 07/08/191999 Vit A/Vit C/Vit E/Zinc/Copper (Preservision Areds Tablet) 1 Each Tablet, 2 TAB PO DAILY, (Reported) Entered as Reported by: BRUNO GRIMALDO on 07/09/19 0910 Discontinued Medications Clindamycin HCl (Clindamycin HCl) 300 Mg Capsule, 300 MG PO QID Discontinued Reason: No Longer Taking Prescribed by: ARIAN BURDEN on 07/28/211915 Clindamycin HCl (Clindamycin HCl) 300 Mg Capsule, 300 MG PO QID, (Reported) Entered as Reported by: ALESHIA CONNELLY on 08/02/21 110 Docusate Sodium (Docusate Sodium) 100 Mg Capsule, 100 MG PO BID Discontinued Reason: No Longer Taking Prescribed by: JEANNE HENSON on 07/13/21 0551 Doxycycline Hyclate (Doxycycline Hyclate) 100 Mg Tablet, 100 MG PO BID Discontinued Reason: No Longer Taking Prescribed by: ARIAN BURDEN on 07/28/211915 Doxycycline Hyclate (Doxycycline Hyclate) 100 Mg Tablet, 100 MG PO BID, (Reported) Entered as Reported by: ALESHIA CONNELLY on 08/02/21 1107 Furosemide (Furosemide) 20 Mg Tablet, 20 MG PO DAILY PRN for SWELLING, (Reported) Discontinued Reason: No Longer Taking Entered as Reported by: MARGARET CARDOZA on 07/08/191999 Lactobacillus Acidophilus (Probiotic) 1 Each Capsule, 1 EACH PO TID Discontinued Reason: No Longer Taking Prescribed by: ARIAN BURDEN on 07/28/211915 Oxycodone HCl/Acetaminophen (Percocet 5-325 mg Tablet) 1 Each Tablet, 1-2 TAB PO Q4H PRN for PAIN-MODERATE (5-7) Discontinued Reason: Duplicate Order Prescribed by: ARIAN BURDEN on 07/28/211915 Oxycodone Hcl (Oxyir Tablet) 5 Mg Tab, 5-10 MG PO Q4H PRN for PAIN-SEVERE (8-10) Discontinued Reason: No Longer Taking Prescribed by: JEANNE HENSON on 07/13/21 0552 Past Udqgvdv-Mibxot-Ifkqep Hx Patient Social History Smoking Status: Never a Smoker 2nd Hand Smoke Exposure: No Recent Hopitalizations: No Alcohol Use?: No Have you traveled recently?: No Immunizations Up To Date Tetanus Booster (TDap): Unknown Date of Pneumonia Vaccine: Oct 02, 2015 Date of Influenza Vaccine: Jun 08, 2021 Seasonal Allergies Seasonal Allergies: Yes Surgeries History of Surgeries: Yes (sinus sx, hiatal hernia, hemorrhoidectomy, neck sx) Surgeries: Appendectomy, Bladder Surgery, Cardiac, Gallbladder, Hysterectomy, Orthopedic Respiratory History of Respiratory Disorde: No Respiratory Disorders: Pneumonia, COPD Cardiovascular History of Cardiac Disorders: Yes Cardiac Disorders: Atrial Fibrillation, Hypertension, Valvular Heart Disease Neurological History of Neurological Disord: No 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 Genitourinary History of Genitourinary Disor: Yes (BLADDER PROLAPSE--S/P BLADDER SURGERIES WITH VAGINAL MESH) Genitourinary Disorders: Bladder Infection Gastrointestinal History of Gastrointestinal Di: Yes (dysphagia) Gastrointestinal Disorders: Gastroesophageal Reflux, Gastrointestinal Bleed, Chronic Constipation, Hiatal Hernia Musculoskeletal History of Musculoskeletal Dis: Yes Musculoskeletal Disorders: Arthritis, Rheumatoid Arthritis Endocrine History of Endocrine Disorders: Yes Endocrine Disorders: Diabetes, Non-Insulin dep HEENT History of HEENT Disorders: No (cataracts removed) Loss of Vision: Denies Cancer History of Cancer: Yes Cancer: Lymphoma Psychosocial History of Psychiatric Problem: Yes Behavioral Health Disorders: Anxiety, Depression Integumentary History of Skin or Integumenta: No Blood Transfusions History of Blood Disorders: No Adverse Reaction to a Blood Tr: No Family Medical History Significant Family History: Cancer (Sister-lung cancer, brother- ALL, brother- lymphoma), Hypertension (mother) Review of Systems-General Constitutional: No chills, No fever EENTM: No hearing loss, No blurred vision, No double vision Respiratory: No cough, No short of breath Cardiovascular: No chest pain, No palpitations Gastrointestinal: No abdominal pain; constipation; No diarrhea; nausea Genitourinary: No dysuria, No frequency Musculoskeletal: No back pain, No muscle pain, No muscle weakness Psychiatric/Neurological: Denies Headache, Denies Numbness, Denies Paresthesia Physical Exam-General Problems Physical Exam Vital Signs Vital Signs - First Documented 08/03/21 10:21 Temp 36.8 Pulse 66 Resp 18 B/P (MAP) 131/57 (81) Pulse Ox 95 O2 Delivery Nasal Cannula O2 Flow Rate 2.00 Capillary Refill : General Appearance: no apparent distress, thin HEENT: PERRL/EOMI; No photophobia Neck: non-tender, supple Respiratory: lungs clear, normal breath sounds, no respiratory distress Cardiovascular: normal peripheral pulses, regular rate, rhythm Gastrointestinal: normal bowel sounds, non tender, soft Extremities: pedal edema (L>R. Pt states this is normal), swelling (Right knee swollen. Recent knee replacement) Neurologic/Psychiatric: alert, normal mood/affect, oriented x 3 Skin: warm/dry, other (scattered brusing) Lymphatic: no adenopathy Data Review Labs Laboratory Tests 08/04/21 06:04: White Blood Count 5.6, Red Blood Count 3.51L, Hemoglobin 10.2L, Hematocrit 33L, Mean Corpuscular Volume 94, Mean Corpuscular Hemoglobin 29, Mean Corpuscular Hemoglobin Concent 31L, Red Cell Distribution Width 19.8H, Platelet Count 332, Mean Platelet Volume 8.9L, Immature Granulocyte % (Auto) 0, Neutrophils (%) (Auto) 65, Lymphocytes (%) (Auto) 15, Monocytes (%) (Auto) 14H, Eosinophils (%) (Auto) 5, Basophils (%) (Auto) 1, Neutrophils # (Auto) 3.6, Lymphocytes # (Auto) 0.8L, Monocytes # (Auto) 0.8, Eosinophils # (Auto) 0.3, Basophils # (Auto) 0.1, Immature Granulocyte # (Auto) 0.0, Sodium Level 138, Potassium Level 3.6, Chloride Level 99, Carbon Dioxide Level 28, Anion Gap 11, Blood Urea Nitrogen 6L , Creatinine 0.73, Estimat Glomerular Filtration Rate 77, BUN/Creatinine Ratio 8, Glucose Level 113H, Calcium Level 8.3L, Corrected Calcium 9.2, Total Bilirubin 0.6, Aspartate Amino Transf (AST/SGOT) 18, Alanine Aminotransferase (ALT/SGPT) 10, Alkaline Phosphatase 191H, Total Protein 6.0L, Albumin 2.9L Assessment/Plan Assessment/Plan Assessment/Plan Assessment Nausea GERD Diabetes mellitus type 2 HTN HLD Plan Start Promethazine Q4H PRN Continue Protonix Start on pureed diet Consider EGD MELANY RODRIGUEZ DO 08/04/21 1612: History of Present Illness History of Present Illness Time Seen by Provider: 14:42 History of Present Illness Surgery asked to consult regarding N/V and hx of GI bleed When I saw pt she stated the nausea was a little better with Zofran, "but not gone". She had a "stomach wrap and can't vomit". Denies any hematochezia, ?? melena last week. She was recently in ARU after knee surgery and then readmitted. Allergies and Home Medications Allergies Coded Allergies: Cephalexin Monohydrate (Verified Allergy, Unknown, has tolerated Ancef, 08/03/19) Iodinated Contrast Media (Verified Allergy, Unknown, 10/29/19) Penicillins (Verified Allergy, Unknown, Has tolerated Ancef, 08/03/19) adhesive tape (Verified Allergy, Unknown, 08/04/21) ciprofloxacin (Verified Allergy, Unknown, 02/25/21) iodine (Verified Allergy, Unknown, 07/08/19) linaclotide (Verified Allergy, Unknown, 07/28/19) lubiprostone (Verified Allergy, Unknown, 07/28/19) prednisolone (Verified Allergy, Unknown, 02/25/21) sulfamethoxazole (Verified Allergy, Unknown, 02/25/21) trimethoprim (Verified Allergy, Unknown, 02/25/21) venlafaxine HCl (Verified Allergy, Unknown, 07/08/19) Patient Home Medication List Home Medication List Reviewed: Yes Apixaban (Eliquis) 2.5 Mg Tablet, 2.5 MG PO BID, (Reported) Entered as Reported by: ALESHIA CONNELLY on 10/31/20 1122 Aspirin (Aspirin EC) 81 Mg Tablet.dr, 81 MG PO DAILY, (Reported) Entered as Reported by: ALESHIA CONNELLY on 10/31/20 1122 Atorvastatin Calcium (Atorvastatin Calcium) 20 Mg Tablet, 20 MG PO 1700, (Report ed) Entered as Reported by: BRUNO GRIMALDO on 07/09/19 0910 Carboxymethylcellulose Sodium (Refresh Tears) 15 Ml Drops, 2 DROPS OU PRN PRN for DRY EYES, (Reported) Entered as Reported by: ALESHIA CONNELLY on 12/15/19 1311 Carvedilol (Carvedilol) 6.25 Mg Tablet, 6.25 MG PO BID WITH MEALS, (Reported) Entered as Reported by: BRUNO GRIMALDO on 10/15/19 0954 Cholecalciferol (Vitamin D3) (Vitamin D3) 50 Mcg Tablet, 100 MCG PO DAILY, (Reported) Entered as Reported by: ROB SOLARES on 06/21/21 1425 Citalopram Hydrobromide (Citalopram HBr) 10 Mg Tablet, 10 MG PO BID WITH MEALS, (Reported) Entered as Reported by: BRUNO GRIMALDO on 10/15/19 0954 Last Action: Continued Docusate Sodium (Docusate Sodium) 100 Mg Capsule, 100 MG PO BID PRN for CONSTIPATION-1ST LINE, (Reported) Entered as Reported by: ALESHIA CONNELLY on 08/02/21 1107 Estrogens Conjugated (Premarin) 0.45 Mg Tab, 0.45 MG PO DAILY, (Reported) Entered as Reported by: BRUNO GRIMALDO on 07/09/19 0910 Famotidine (Famotidine) 20 Mg Tablet, 20 MG PO BID WITH MEALS, (Reported) Entered as Reported by: BRUNO GRIMALDO on 10/15/19 0954 Flecainide Acetate (Flecainide Acetate) 100 Mg Tablet, 150 MG PO BID WITH MEALS, (Reported) Entered as Reported by: ALESHIA CONNELLY on 10/31/20 1122 Hydrocodone/Acetaminophen (Hydrocodone-Acetamin 5-325 mg) 1 Each Tablet, 1-2 TAB PO Q6H PRN for PAIN-MODERATE (5-7), (Reported) Entered as Reported by: ALESHIA CONNELLY on 08/02/21 1107 Lactobacillus Combo No.10 (Probiotic) 1 Each Capsule, 1 EACH PO DAILY, (Reported) Entered as Reported by: ALESHIA CONNELLY on 12/15/19 1319 Losartan Potassium (Losartan Potassium) 50 Mg Tablet, 50 MG PO 1700, (Reported) Entered as Reported by: ALESHIA CNONELLY on 10/31/20 112 Metformin HCl (Metformin HCl ER) 500 Mg Tab.er.24h, 500 MG PO 1700 W/MEAL, (Reported) Entered as Reported by: ALESHIA CONNELLY on 10/31/20 112 Mirtazapine (Mirtazapine) 15 Mg Tablet, 15 MG PO HS, (Reported) Entered as Reported by: SHARMAINE SIMPSON on 07/04/21 1444 Last Action: Converted Pantoprazole Sodium (Pantoprazole Sodium) 40 Mg Tablet.dr, 40 MG PO DAILY, (Reported) Entered as Reported by: MARGARET CARDOZA on 07/08/191999 Vit A/Vit C/Vit E/Zinc/Copper (Preservision Areds Tablet) 1 Each Tablet, 2 TAB PO DAILY, (Reported) Entered as Reported by: BRUNO GRIMALDO on 07/09/19 0910 Discontinued Medications Clindamycin HCl (Clindamycin HCl) 300 Mg Capsule, 300 MG PO QID Discontinued Reason: No Longer Taking Prescribed by: ARIAN BURDEN on 07/28/211915 Clindamycin HCl (Clindamycin HCl) 300 Mg Capsule, 300 MG PO QID, (Reported) Entered as Reported by: ALESHIA CONNELLY on 08/02/21 110 Docusate Sodium (Docusate Sodium) 100 Mg Capsule, 100 MG PO BID Discontinued Reason: No Longer Taking Prescribed by: JEANNE HENSON on 07/13/21 0551 Doxycycline Hyclate (Doxycycline Hyclate) 100 Mg Tablet, 100 MG PO BID Discontinued Reason: No Longer Taking Prescribed by: ARIAN BURDEN on 07/28/211915 Doxycycline Hyclate (Doxycycline Hyclate) 100 Mg Tablet, 100 MG PO BID, (Reported) Entered as Reported by: ALESHIA CONNELLY on 08/02/21 1107 Furosemide (Furosemide) 20 Mg Tablet, 20 MG PO DAILY PRN for SWELLING, (Re ported) Discontinued Reason: No Longer Taking Entered as Reported by: MARGARET CARDOZA on 07/08/191999 Lactobacillus Acidophilus (Probiotic) 1 Each Capsule, 1 EACH PO TID Discontinued Reason: No Longer Taking Prescribed by: ARIAN BURDEN on 07/28/211915 Oxycodone HCl/Acetaminophen (Percocet 5-325 mg Tablet) 1 Each Tablet, 1-2 TAB PO Q4H PRN for PAIN-MODERATE (5-7) Discontinued Reason: Duplicate Order Prescribed by: ARIAN BURDEN on 07/28/211915 Oxycodone Hcl (Oxyir Tablet) 5 Mg Tab, 5-10 MG PO Q4H PRN for PAIN-SEVERE (8-10) Discontinued Reason: No Longer Taking Prescribed by: JEANNE HENSON on 07/13/21 0552 Past Uhgoehf-Imyono-Otvqxo Hx Patient Social History Smoking Status: Never a Smoker Alcohol Use?: No Surgeries History of Surgeries: Yes Surgeries: Appendectomy, Bladder Surgery, Cardiac, Gallbladder, Hysterectomy, Orthopedic Respiratory History of Respiratory Disorde: Yes Respiratory Disorders: Pneumonia, COPD Cardiovascular History of Cardiac Disorders: Yes Cardiac Disorders: Atrial Fibrillation, Hypertension, Valvular Heart Disease Neurological History of Neurological Disord: No 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 Genitourinary History of Genitourinary Disor: Yes Genitourinary Disorders: Bladder Infection Gastrointestinal History of Gastrointestinal Di: Yes Gastrointestinal Disorders: Gastroesophageal Reflux, Gastrointestinal Bleed, Chronic Constipation, Hiatal Hernia Musculoskeletal History of Musculoskeletal Dis: Yes Musculoskeletal Disorders: Arthritis, Rheumatoid Arthritis Endocrine History of Endocrine Disorders: Yes Endocrine Disorders: Diabetes, Non-Insulin dep HEENT History of HEENT Disorders: No Cancer History of Cancer: Yes Cancer: Lymphoma Psychosocial History of Psychiatric Problem: Yes Behavioral Health Disorders: Anxiety, Depression Family Medical History Significant Family History: Cancer (Sister-lung cancer, brother- ALL, brother- lymphoma), Hypertension (mother) Review of Systems-General Constitutional: No chills, No fever EENTM: No hearing loss, No blurred vision, No double vision Respiratory: No cough, No short of breath Cardiovascular: No chest pain; Hx of Intervention; No palpitations Gastrointestinal: No abdominal pain; constipation; No diarrhea; nausea Genitourinary: No dysuria, No frequency Musculoskeletal: joint pain, joint swelling; No muscle pain; muscle stiffness; No muscle weakness Skin: No change in color, No change in hair/nails Psychiatric/Neurological: Denies Headache, Denies Numbness, Denies Paresthesia Physical Exam-General Problems Physical Exam General Appearance: WD/WN, no apparent distress Eyes: Bilateral Eye PERRL, Bilateral Eye EOMI HEENT: pharynx normal; No scleral icterus (R), No scleral icterus (L) Neck: non-tender, supple Respiratory: lungs clear, normal breath sounds, no respiratory distress, no accessory muscle use Cardiovascular: regular rate, rhythm, no murmur Gastrointestinal: normal bowel sounds, non tender, soft, no organomegaly Rectal: deferred 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, alert, normal mood/affect, oriented x 3 Skin: warm/dry, other (scattered brusing) Lymphatic: no adenopathy (neck, axilla or groin) Assessment/Plan Assessment/Plan Assessment/Plan Intractable Nausea GERD Diabetes mellitus type 2 HTN HLD Plan Start Promethazine Q4H PRN, Continue Protonix, Keep on full liquids, Consider EGD Supervisory-Addendum Brief Verification & Attestation Participated in pt care: history, MDM, physical Personally performed: exam, history, MDM, supervision of care Care discussed with: Medical Student Procedures: n/a Verification and Attestation of Medical Student E/M Service A medical student performed and documented this service. I then reviewed and verified all information documented by the medical student and made modifications to such information, when appropriate. I personally performed a physical exam, medical decision making and then discussed any differences between the notes and made revisions as necessary to create one note. Melany Rodriguez , 08/04/21 , 16:12 STEPHAN MEZA Aug 04, 2021 15:21 MELANY RODRIGUEZ DO Aug 04, 2021 16:12
[2021-08-04 20:10] VITALS: BP 106/50
[2021-08-04] MEDS: MIRTAZAPINE 15 MG (REMERON) TAB PO SCH (20:39)
[2021-08-05] MEDS: ONDANSETRON 4 MG/2 ML (SDV) Z0FRAN IV PRN ×3 (04:55→23:57)
[2021-08-05] MEDS: SUCRALFATE 1 GM (CARAFATE) TAB PO SCH ×4 (06:57→20:52)
[2021-08-05] MEDS: KCL 20 MEQ TAB (K-DUR) PO SCH (06:57)
[2021-08-05 07:28] VITALS: BP 129/59
[2021-08-05] MEDS: LOSARTAN 50 MG (COZAAR) TAB PO SCH (08:12)
[2021-08-05] MEDS: amLODIPine 5 MG (NORVASC) TAB PO SCH (08:12)
[2021-08-05] MEDS: APIXABAN 5 MG (ELIQUIS) TABLET PO SCH ×2 (08:12→20:52)
[2021-08-05] MEDS: DOCUSATE SODIUM 100 MG (COLACE) CAP PO SCH ×3 (08:12→20:52)
[2021-08-05] MEDS: PANTOPRAZOLE 40 MG (PROTONIX) TAB PO SCH (08:12)
[2021-08-05] MEDS: FUROSEMIDE 40 MG/4 ML INJ (LASIX) IVP SCH (08:14)
[2021-08-05] MEDS: SENNOSIDES 8.6 MG (SENOKOT) TAB PO SCH ×2 (08:16→19:32)
[2021-08-05] MEDS: polyethylene glycoL POWDER 17 GM (MIRALAX) PACK PO SCH ×2 (08:16→19:32)
[2021-08-05] MEDS: SENNA W/DOCUSATE (SENOKOT S) TABLET PO SCH ×2 (08:16→20:52)
--- NOTE | 2021-08-05 09:16 | Progress Note - Surgery ---
STEPHAN MEZA 08/05/21 0916: Subjective Date Seen by a Provider: Aug 05, 2021 Time Seen by a Provider: 08:32 Subjective/Events-last exam Pt reports that her nausea has improved since starting current diet. Zofran also is helping with the nausea she states but nausea does return after a few hours. Denied having any abdominal pain or vomiting. No constipation or diarrhea and denied any abnormalities in her stool. Review of Systems General: No Chills, No Night Sweats HEENT: No Head Aches, No Visual Changes Pulmonary: No Cough; Other (SOB w/ activity) Cardiovascular: No: Chest Pain, Palpitations Gastrointestinal: Nausea; No: Vomiting, Abdominal Pain, Diarrhea, Constipation Genitourinary: No Dysuria, No Frequency Musculoskeletal: No: neck pain, shoulder pain, arm pain Neurological: No: Weakness, Numbness Objective Exam Vital Signs Date Time Temp Pulse Resp B/P (MAP) Pulse Ox O2 Delivery O2 Flow Rate FiO2 08/05/21 07:28 37.1 71 18 129/59 (82) 98 Nasal Cannula 2.00 08/05/21 07:00 76 08/05/21 01:00 66 08/04/21 20:10 36.9 78 18 106/50 (68) 95 Nasal Cannula 2.00 08/04/21 20:00 Nasal Cannula 2.00 08/04/21 18:58 84 08/04/21 13:00 64 08/04/21 10:19 Nasal Cannula 2.00 Capillary Refill : General Appearance: No Apparent Distress, WD/WN, Chronically ill, Thin HEENT: PERRL/EOMI, Normal ENT Inspection, Pharynx Normal Neck: Non Tender, Supple Respiratory: Lungs Clear, Normal Breath Sounds, No Respiratory Distress Cardiovascular: Regular Rate, Rhythm, No Murmur, Normal Peripheral Pulses Gastrointestinal: normal bowel sounds, non tender, soft, no organomegaly Extremity: Normal Capillary Refill, Non Tender, No Calf Tenderness, No Pedal Edema (improved from yesterday. On Lasix), Swelling (rt knee. 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 Continue on current diet. Consider EGD HIEU WEINSTEIN DO 08/05/21 1659: Subjective Time Seen by a Provider: 13:39 Subjective/Events-last exam Pt seen and examined, states she is doing better and wants to eat more. Nurse also agreed she is doing better, minimal nausea. Review of Systems General: No Chills, No Night Sweats; Fatigue Pulmonary: No Cough; Other (SOB w/ activity) Cardiovascular: No: Chest Pain, Palpitations Gastrointestinal: Nausea; No: Vomiting, Abdominal Pain, Diarrhea, Constipation Genitourinary: No Dysuria, No Frequency Objective Exam General Appearance: No Apparent Distress, Chronically ill HEENT: PERRL/EOMI Respiratory: Lungs Clear, Normal Breath Sounds, No Accessory Muscle Use, No Respiratory Distress Cardiovascular: Regular Rate, Rhythm, No Murmur Gastrointestinal: non tender, soft, no organomegaly Extremity: No Calf Tenderness, Swelling (rt knee. knee replacement done recently) Neurologic/Psychiatric: Alert, Oriented x3 Assessment/Plan Assessment/Plan Assessment/Plan Intractable Nausea - improved Anemia GERD Diabetes mellitus type 2 HTN HLD Plan Continue Promethazine and Zofran PRN, Continue Protonix. Increase to soft diet. Consider EGD/colonoscopy as an outpt. Supervisory-Addendum Brief Verification & Attestation Participated in pt care: history, MDM, physical Personally performed: exam, history, MDM, supervision of care Care discussed with: Medical Student Procedures: n/a Verification and Attestation of Medical Student E/M Service A medical student performed and documented this service. I then reviewed and verified all information documented by the medical student and made modifications to such information, when appropriate. I personally performed a physical exam, medical decision making and then discussed any differences between the notes and made revisions as necessary to create one note. Hieu Weinstein , 08/05/21 , 16:59 STEPHAN MEZA Aug 05, 2021 09:16 HIEU WEINSTEIN DO Aug 05, 2021 16:59
--- NOTE | 2021-08-05 12:34 | PM&R Progress Note ---
Subjective HPI/CC On Admission Date Seen by Provider: Aug 05, 2021 Time Seen by Provider: 12:45 Subjective/Events-last exam 08/05/21: Patient doing well No more nausea and vomiting Dry heaves are better On room air now weaned off oxygen Edema is improved 08/04/21: Patient doing okay except for nausea and vomiting Consulting Dr. Weinstein Remeron will be started and Celexa also Starting proton pump inhibitor Carafate will also be added Zofran still maintained Review of Systems General: Fatigue, Malaise Objective Exam Vital Signs Vital Signs Date Time Temp Pulse Resp B/P (MAP) Pulse Ox O2 Delivery O2 Flow Rate FiO2 08/05/21 13:00 90 08/05/21 11:14 93 Room Air 08/05/21 10:26 0.00 08/05/21 07:28 37.1 18 129/59 (82) Capillary Refill : General Appearance: No Apparent Distress, WD/WN, Chronically ill, Thin HEENT: PERRL/EOMI, Normal ENT Inspection, Pharynx Normal Neck: Non Tender, Supple Respiratory: Lungs Clear, Normal Breath Sounds, No Respiratory Distress Cardiovascular: Regular Rate, Rhythm, No Murmur, Normal Peripheral Pulses Gastrointestinal: Normal Bowel Sounds, No Organomegaly, No Pulsatile Mass, Non Tender, Soft Back: Normal Inspection, No CVA Tenderness, No Vertebral Tenderness Extremity: Normal Capillary Refill, Non Tender, No Calf Tenderness, No Pedal Edema, Swelling Neurologic/Psychiatric: Alert, Oriented x3, sports medicine coordinator II-XII Norm as Tested Skin: Normal Color, Warm/Dry Lymphatic: No Adenopathy Results/Procedures Lab Patient resulted labs reviewed. FIM Transfers Therapy Code Descriptions/Definitions Functional [place] Measure: 0=Not Assessed/NA 4=Minimal Assistance 1=Total Assistance 5=Supervision or Setup 2=Maximal Assistance 6=Modified [place] 3=Moderate Assistance 7=Complete IndependenceSCALE: Activities may be completed with or without assistive devices. 0-Kefalxxtex-jndxqwi completes the activity by him/herself with no assistance from a helper. 5-Set-up or Clean-up Assistance-helper sets up or cleans up; patient completes activity. [place] assists only prior to or following the activity. 4-Supervision or Touching Assistance-helper provides verbal cues and/or touching/steadying and/or contact guard assistance as patient completes activi ty. Assistance may be provided throughout the activity or intermittently. 3-Partial/Moderate Assistance-helper does LESS THAN HALF the effort. [place] lifts, holds or supports trunk or limbs, but provides less than half the effort. 2-Substantial/Maximal Assistance-helper does MORE THAN HALF the effort. [place] lifts or holds trunk or limbs and provides more than half the effort. 4-Ocoislylf-shgafh does ALL the effort. Patient does none of the effort to complete the activity. Or, the assistance of 2 or more helpers is required for the patient to complete the activity. If activity was not attempted, code reason: 7-Patient Refused. 9-Not Applicable-not attempted and the patient did not perform the activity before the current illness, exacerbation or injury. 10-Not Attempted due to Environmental Limitations-(lack of equipment, weather restraints, etc.). 88-Not Attempted due to Medical Conditions or Safety Concerns. Roll Left to Right (QC): 4 Sit to Lying (QC): 4 Sit to Stand (QC): 4 Chair/Akm-pd-Lahyw Xfer(QC): 4 Car Transfer (QC): 4 Gait Training Does the Patient Walk?: Yes Distance: 100'x2 Walk 10 feet (QC): 4 Walk 50 ft with 2 Turns(QC): 4 Walk 150 ft (QC): 88 Walking 10ft/uneven surface-QC: 4 Gait Persons Needed: 1 Gait Assistive Device: FWW Wheelchair Training Wheel 50 ft with 2 turns (QC): 9 Wheel 150 ft (QC): 9 Stair Training #of Steps: 1 1 Step (curb) (QC): 4 4 Steps (QC): 88 12 Steps (QC): 88 Balance Picking up an Object (QC): 4 ADL-Treatment Eating (QC): 5 (set up with breakfast per pt report.) Oral Hygiene (QC): 4 (SBA seated at sink. Pt required 1 verbal cue for sequencing.) Shower/Bathe Self (QC): 4 (SBA, pt able to wash/dry all parts.) Upper Body Dressing (QC): 5 (set up with button up shirt.) Lower Body Dressing (QC): 4 (SBA) On/Off Footwear (QC): 4 (Supervision) Toileting Hygiene (QC): 4 (SBA) Assessment/Plan Assessment and Plan Assess & Plan/Chief Complaint Assessment: s/p acute CHF Generalized weakness and debility Recent right knee replacement requiring IRF services complicated with hematoma recently Fall risk History of lymphoma Paroxysmal atrial fibrillation History of recurrent GI bleeds h/o constipation Diabetes Hypertension Mild cognitive decline h/o severe iron deficiency requiring transfusion and iron infusions Diabetes Plan: Appreciate cardiology Inpatient rehab protocol Pain control Increase nutrition 08/04/2021: Nausea and vomiting management Consult Dr. Weinstein Proton pump inhibitor and Carafate Remeron and Celexa restart 08/05/2021: Supportive care Appreciate Dr. Weinstein (1) Debility Status: Acute (2) DLBCL (diffuse large B cell lymphoma) Status: Chronic (3) PAF (paroxysmal atrial fibrillation) Status: Chronic (4) Hematoma of right knee region Status: Acute (5) Acute heart failure with preserved ejection fraction (HFpEF) Status: Acute (6) Acute respiratory failure with hypoxia Status: Acute (7) T2DM (type 2 diabetes mellitus) Status: Chronic (8) HTN (hypertension) Status: Chronic (9) Nausea and vomiting Status: Acute JEANNE HENSON DO Aug 05, 2021 12:34
--- NOTE | 2021-08-05 16:16 | Progress Note - Cardiology ---
Cardiology SOAP Progress Note Subjective: No cp or palp or syncope or shortness of breath at rest No n/v/d Gen weakness and malaise, gradually improving Objective: I&O/Vital Signs 08/05/21 08/05/21 08/05/21 08/05/21 07:00 07:28 09:33 10:25 Temp 37.1 Pulse 76 71 Resp 18 B/P (MAP) 129/59 (82) Pulse Ox 98 97 O2 Delivery Nasal Cannula Nasal Cannula Nasal Cannula O2 Flow Rate 2.00 2.00 2.00 08/05/21 08/05/21 08/05/21 10:26 11:14 13:00 Pulse 90 Pulse Ox 93 O2 Delivery Room Air Room Air O2 Flow Rate 0.00 Constitutional: AAO x 3, well-developed, other Respiratory: No accessory muscle use; other (Good bilateral air entry) Cardiovascular: regular rate-rhythm, S1 and S2, systolic murmur (Soft [place] at card base) Gastrointestional: No tender; soft; No guarding, No rebound; audible bowel sounds Extremities: No clubbing, No cyanosis, No significant edema Neurologic/Psychiatric: oriented x 3, other (moves all limbs equally) Skin: No rash on exposed areas, No ulcerations on exposed areas Results/Procedures: Labs Laboratory Tests 08/04/21 06:04 A/P: Assessment: Hosp with progressive dyspnea in late Jul / early Aug 2021 due to 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 Morrell on Jul 04, 2021 - subsequent cellulitis - being treated as an out pt PAF - rate controlled; has chronically been treated with flecainide (managed by Dr. Muhammad at [facility]) - OAC with Eliqus - low dose d/t chronic anemia with GIB requiring transfusions in the past as advised by hematology/oncology services (Dr. Payne). Currently on full dose and tolerating well Nausea of undetermined etiology H/o anemia of undetermined etiology which has required multiple transfusions in the past (she reports chronic anemia for which she has had multiple eval in the past with unknown cause). Previous stool positive for occult blood during previous admission of Aug 2019 Non-Hodgkin B-cell lymphoma - follows with Dr. Payne of oncology services Plan: * Continue current regimen * Monitor labs ANA FINLEY MD FACP FAC CCDS Aug 05, 2021 16:16
[2021-08-05 20:00] VITALS: BP 124/56
[2021-08-05] MEDS: MIRTAZAPINE 15 MG (REMERON) TAB PO SCH (20:52)
[2021-08-06] MEDS: SUCRALFATE 1 GM (CARAFATE) TAB PO SCH ×4 (06:04→20:38)
[2021-08-06 06:06] LABS: BASOPHILS # (AUTO) 0.1 10^3/uL (0.0-0.1); BASOPHILS % (AUTO) 2 % (0-10); EOSINOPHILS # (AUTO) 0.2 10^3/uL (0.0-0.3); EOSINOPHILS % (AUTO) 4 % (0-10); HEMATOCRIT 32 % (35-52); HEMOGLOBIN 9.8 g/dL (11.5-16.0); LYMPHOCYTES # (AUTO) 0.8 10^3/uL (1.0-4.0); LYMPHOCYTES % (AUTO) 17 % (12-44); MEAN CORPUSCULAR HEMOGLOBIN 29 pg (25-34); MEAN CORPUSCULAR HGB CONC 31 g/dL (32-36); MEAN CORPUSCULAR VOLUME 94 fL (80-99); MEAN PLATELET VOLUME 9.1 fL (9.0-12.2); MONOCYTES # (AUTO) 0.9 10^3/uL (0.0-1.0); MONOCYTES % (AUTO) 19 % (0-12); NEUTROPHILS # (AUTO) 2.7 10^3/uL (1.8-7.8); NEUTROPHILS % (AUTO) 58 % (42-75); PLATELET COUNT 295 10^3/uL (130-400); WHITE BLOOD COUNT 4.7 10^3/uL (4.3-11.0)
[2021-08-06 06:25] LABS: ALBUMIN 2.8 GM/DL (3.2-4.5); POTASSIUM 3.4 MMOL/L (3.6-5.0)
[2021-08-06 06:26] LABS: CALCIUM 8.3 MG/DL (8.5-10.1)
[2021-08-06 06:27] LABS: TOTAL PROTEIN 5.8 GM/DL (6.4-8.2)
[2021-08-06 06:29] LABS: BILIRUBIN,TOTAL 0.5 MG/DL (0.1-1.0)
[2021-08-06 06:31] LABS: CREATININE SERUM 0.73 MG/DL (0.60-1.30)
[2021-08-06 06:58] LABS: BAND NEUTROPHILS 4 %; EOSINOPHILS % (MANUAL) 3 %; LYMPHOCYTES % (MANUAL) 15 %; MONOCYTES % (MANUAL) 16 %; NEUTROPHILS % (MANUAL) 65 %
[2021-08-06] MEDS: KCL 20 MEQ TAB (K-DUR) PO SCH (07:07)
--- NOTE | 2021-08-06 07:48 | Progress Note - Surgery ---
LIZETH SINGER MED STUDENT 08/06/21 0748: Subjective Date Seen by a Provider: Aug 06, 2021 Time Seen by a Provider: 06:30 Subjective/Events-last exam This is She a 76 yo female with the chief complaint of debility. Upon entering the room Pt was laying in bed watching TV. She denies throat or abdom inal pain/discomfort. Pt is experiencing minimal right knee pain following right knee replacement on July 06. Pt had a BM this morning. She is currently on a soft diet and eating/drinking well. She stated that last night for dinner she really enjoyed the meal and ate it too quickly. Pt experienced nausea after this meal. Nursing staff continues to give Zofran PRN but has not given promethazine. Upon speaking within the nurse he stated that she has been doing well and only requiring Zofran to treat symptoms. Review of Systems General: No Appetite (eating and drinking well) Gastrointestinal: Nausea (following dinner yesterday, controlled with Zofran), Constipation (chronic, requires stool softeners, BM this AM) Focused Exam Time of Focused Exam: 06:30 Respiratory: Chest Non Tender, Lungs Clear, Normal Breath Sounds, No Accessory Muscle Use, No Respiratory Distress Cardiovascular: Regular Rate, Rhythm, No Edema, No Gallop, No Murmur, Normal Peripheral Pulses Skin: normal color, warm/dry Objective Exam Vital Signs Date Time Temp Pulse Resp B/P (MAP) Pulse Ox O2 Delivery O2 Flow Rate FiO2 08/05/21 20:00 37.3 73 17 124/56 (78) 92 Room Air 08/05/21 20:00 Room Air 08/05/21 13:00 90 08/05/21 11:14 93 Room Air 08/05/21 10:26 Room Air 0.00 08/05/21 10:25 97 Nasal Cannula 2.00 08/05/21 09:33 Nasal Cannula 2.00 Capillary Refill : General Appearance: No Apparent Distress, WD/WN, Chronically ill HEENT: PERRL/EOMI, Pharynx Normal Neck: Normal Inspection, Non Tender, Supple Respiratory: Chest Non Tender, Lungs Clear, Normal Breath Sounds, No Accessory Muscle Use, No Respiratory Distress Cardiovascular: Regular Rate, Rhythm, No Edema, No Gallop, No Murmur, Normal Peripheral Pulses Gastrointestinal: non tender, soft Extremity: Normal Capillary Refill, No Calf Tenderness, No Pedal Edema, Other (right knee pain) Neurologic/Psychiatric: Alert, Oriented x3, Normal Mood/Affect Skin: Normal Color, Warm/Dry Lymphatic: No Adenopathy (cervical or supraclavicular) Results Lab Laboratory Tests 08/06/21 05:34: White Blood Count 4.7, Red Blood Count 3.38L, Hemoglobin 9.8L, Hematocrit 32L, Mean Corpuscular Volume 94, Mean Corpuscular Hemoglobin 29, Mean Corpuscular Hemoglobin Concent 31L, Red Cell Distribution Width 19.4H, Platelet Count 295, Mean Platelet Volume 9.1, Immature Granulocyte % (Auto) 0, Neutrophils (%) (Auto) 58, Lymphocytes (%) (Auto) 17, Monocytes (%) (Auto) 19H, Eosinophils (%) (Auto) 4, Basophils (%) (Auto) 2, Neutrophils # (Auto) 2.7, Lymphocytes # (Auto) 0.8L, Monocytes # (Auto) 0.9, Eosinophils # (Auto) 0.2, Basophils # (Auto) 0.1, Immature Granulocyte # (Auto) 0.0, Neutrophils % (Manual) 65, Lymphocytes % (Manual) 15, Monocytes % (Manual) 16, Eosinophils % (Manual) 3, Band Neutrophils 4, Sodium Level 138, Potassium Level 3.4L, Chloride Level 100, Carbon Dioxide Level 28, Anion Gap 10, Blood Urea Nitrogen 5L, Creatinine 0.73, Estimat Glomerular Filtration Rate 77, BUN/Creatinine Ratio 7, Glucose Level 133H, Calcium Level 8.3L, Corrected Calcium 9.3, Total Bilirubin 0.5, Aspartate Amino Transf (AST/SGOT) 15, Alanine Aminotransferase (ALT/SGPT) 10, Alkaline Phosphatase 175H, Total Protein 5.8L, Albumin 2.8L Assessment/Plan Assessment/Plan Assessment/Plan Assessment: Intractable Nausea - improved with Zofran Anemia- Hbg of 9.8 on 08/06 GERD Diabetes mellitus type 2 HTN HLD right knee pain Plan Continue Zofran PRN, Promethazine if needed Continue Protonix continue soft diet encourage ambulation encourage slower eating Consider EGD/colonoscopy as an outpt. HIEU RODRIGUEZ DO 08/06/21 1342: Subjective Time Seen by a Provider: 13:23 Subjective/Events-last exam Pt seen and examined, denied complaints and wants to eat regular diet. Review of Systems General: Appetite (eating and drinking well) Pulmonary: No Dyspnea, No Cough Cardiovascular: No: Chest Pain, Palpitations Gastrointestinal: Nausea (following dinner yesterday, controlled with Zofran), Constipation (chronic, requires stool softeners, BM this AM) Objective Exam General Appearance: No Apparent Distress, WD/WN HEENT: PERRL/EOMI Respiratory: Lungs Clear, Normal Breath Sounds, No Accessory Muscle Use, No Respiratory Distress Cardiovascular: Regular Rate, Rhythm, No Murmur Gastrointestinal: non tender, soft Extremity: Other (right knee pain) Assessment/Plan Assessment/Plan Assessment/Plan Intractable Nausea - improved with Zofran and tolerating soft diet Anemia- Hbg of 9.8 on 08/06 GERD Diabetes mellitus type 2 HTN right knee pain Plan Continue Zofran PRN, Promethazine if needed Continue Protonix continue soft diet encourage ambulation encourage slower eating Consider EGD/colonoscopy as an outpt. Supervisory-Addendum Brief Verification & Attestation Participated in pt care: history, MDM, physical Personally performed: exam, history, MDM, supervision of care Care discussed with: Medical Student Procedures: n/a Verification and Attestation of Medical Student E/M Service A medical student performed and documented this service. I then reviewed and verified all information documented by the medical student and made modifications to such information, when appropriate. I personally performed a physical exam, medical decision making and then discussed any differences between the notes and made revisions as necessary to create one note. Hieu Rodriguez , 08/06/21 , 13:42 LIZTEH SINGER MED STUDENT Aug 06, 2021 07:48 HIEU RODRIGUEZ DO Aug 06, 2021 13:42
[2021-08-06 08:00] VITALS: BP 145/61
[2021-08-06] MEDS: polyethylene glycoL POWDER 17 GM (MIRALAX) PACK PO SCH ×2 (08:19→20:40)
[2021-08-06] MEDS: SENNA W/DOCUSATE (SENOKOT S) TABLET PO SCH ×2 (08:24→20:38)
[2021-08-06] MEDS: LOSARTAN 50 MG (COZAAR) TAB PO SCH (08:24)
[2021-08-06] MEDS: APIXABAN 5 MG (ELIQUIS) TABLET PO SCH ×2 (08:24→20:38)
[2021-08-06] MEDS: PANTOPRAZOLE 40 MG (PROTONIX) TAB PO SCH (08:24)
[2021-08-06] MEDS: FUROSEMIDE 40 MG/4 ML INJ (LASIX) IVP SCH (08:24)
[2021-08-06] MEDS: amLODIPine 5 MG (NORVASC) TAB PO SCH (08:24)
[2021-08-06] MEDS: DOCUSATE SODIUM 100 MG (COLACE) CAP PO SCH ×2 (08:24→20:38)
[2021-08-06] MEDS: SENNOSIDES 8.6 MG (SENOKOT) TAB PO SCH ×2 (08:24→20:38)
--- NOTE | 2021-08-06 08:46 | Occupational Ther Daily Note ---
OT Current Status-Daily Note Subjective Pt laying in bed, agreeable to OT Tx. Pt does not report pain during session. She indicates she is tired of the soft diet she is on and wants to return to normal food. ADL-Treatment Therapy Code Descriptions/Definitions Functional [place] Measure: 0=Not Assessed/NA 4=Minimal Assistance 1=Total Assistance 5=Supervision or Setup 2=Maximal Assistance 6=Modified [place] 3=Moderate Assistance 7=Complete IndependenceSCALE: Activities may be completed with or without assistive devices. 3-Dkahelylyx-tqmavrg completes the activity by him/herself with no assistance from a helper. 5-Set-up or Clean-up Assistance-helper sets up or cleans up; patient completes activity. [place] assists only prior to or following the activity. 4-Supervision or Touching Assistance-helper provides verbal cues and/or touching/steadying and/or contact guard assistance as patient completes activity. Assistance may be provided throughout the activity or intermittently. 3-Partial/Moderate Assistance-helper does LESS THAN HALF the effort. [place] lifts, holds or supports trunk or limbs, but provides less than half the effort. 2-Substantial/Maximal Assistance-helper does MORE THAN HALF the effort. [place] lifts or holds trunk or limbs and provides more than half the effort. 0-Vsykzdiat-ihxulo does ALL the effort. Patient does none of the effort to c omplete the activity. Or, the assistance of 2 or more helpers is required for the patient to complete the activity. If activity was not attempted, code reason: 7-Patient Refused. 9-Not Applicable-not attempted and the patient did not perform the activity before the current illness, exacerbation or injury. 10-Not Attempted due to Environmental Limitations-(lack of equipment, weather restraints, etc.). 88-Not Attempted due to Medical Conditions or Safety Concerns. Oral Hygiene (QC): 4 (SBA seated at sink. Pt required verbal cue to place top dentures back in her mouth after task.) Shower/Bathe Self (QC): 4 (Supervision. Pt able to wash/dry all parts.) Upper Body Dressing (QC): 6 (IND, pt gathered shirt from closet able to don without assist) Lower Body Dressing (QC): 4 (Supervision. Pt gathered clothes from closet, donned with supervision in stand.) On/Off Footwear: 5 (set up with gripper socks.) Toileting Hygiene (QC): 4 (SBA, pt able to manage clothing down, complete hygiene, then managed brief up. Required cue to pull up pants.) Toilet Transfer (QC): 4 (Supervision on/off [facility] over toilet.) Other Treatment Pt laying in bed, transferred supine to sit EOB independently. Pt used FWW to go to closet, SBA. Pt picked out shirt and pants, then carried them into the bathroom and placed on chair. Pt doffed clothes at ME, completed shower, then transferred to chair to don clothes. OT provided pt with clean pair of socks. Pt donned clothes as outlined above, then sat at sink to complete grooming tasks. After pt brushed her teeth, she indicates she was done at the sink. OT cued pt that she hadn't put her top dentures back in, pt states she forgot. Pt used FWW to perform functional mobility to therapy gym, SBA. Pt completed arm bike 2 mins 30 seconds at 15 watt resistance. Pt indicates she should have used the bathroom before leaving her room. Pt returned to room, SBA with FWW, transferred to [facility] over toilet. She completed toileting, requiring cue to pull up pants as she had only pulled up the brief before attempting to go to sink. Pt stood at sink to wash hands, SBA. Pt returned to the gym, completing arm bike 15 Watt resistance for an additional 12 mins 30 seconds for a total of 15 mins. Pt returned to room, using FWW, SBA. Post tx, pt in recliner, call light in reach and all needs met. Education OT Patient Education: Correct positioning, Energy conservation, Exercise program, Modified ADL techniques, Progress toward Goal/Update tx plan, Purpose of tx/functional activities, Rehab process, Safety issues, Transfer techniques Teaching Recipient: Patient Teaching Methods: Discussion Response to Teaching: Verbalize Understanding, Reinforcement Needed OT Short Term Goals Short Term Goals Time Frame: Aug 08, 2021 Shower/bathe self: 5 Lower body dressin Putting on/taking off footwear: 5 OT Proposal Editor Goals Alf Goals Time Frame: Aug 17, 2021 Eating (QC): 6 Oral Hygiene (QC): 6 Toileting Hygiene (QC): 6 Shower/Bathe Self (QC): 6 Upper Body Dressing (QC): 6 Lower Body Dressing (QC): 6 On/Off Footwear (QC): 6 Additional Goals: 1-Demonstrate ADL Tasks, 2-Verbalize Understanding, 3- ImproveStrength/Sharad 1=Demonstrate adherence to instructed precautions during ADL tasks. 2=Patient will verbalize/demonstrate understanding of assistive devices/modifications for ADL. 3=Patient will improve strength/tolerance for activity to enable patient to perform ADL's. OT Education/Plan Problem List/Assessment Assessment: Decreased Activ Tolerance, Decreased Safety Aware, Decreased UE Strength, Impaired Funct Balance, Impaired I ADL's, Impaired Self-Care Skills Discharge Recommendations Plan/Recommendations: Continue POC Treatment Plan/Plan of Care Patient would benefit from OT for education, treatment and training to promote i ndependence in ADL's, mobility, safety and/or upper extremity function for ADL's. Plan of Care: ADL Retraining, Functional Mobility, Group Exercise/Act as Ind, UE Funct Exercise/Act Treatment Duration: Aug 17, 2021 Frequency: At least 5 of 7 days/Wk (IRF) Estimated Hrs Per Day: .25 hour per day Rehab Potential: Fair Time/GCodes Start Time: 08:00 Stop Time: 09:15 Total Time Billed (hr/min): 75 Billed Treatment Time 1, ADL 4 (60'), EX (15') RYAN DUNNE OT Aug 06, 2021 08:46
--- NOTE | 2021-08-06 09:15 | PM&R Progress Note ---
Subjective HPI/CC On Admission Date Seen by Provider: Aug 06, 2021 Time Seen by Provider: 09:15 Subjective/Events-last exam 08/06/21: Pt doing well Dr. Weinstein will consult Will await advancement of diet She is feeling well No more dry heaving 08/05/21: Patient doing well No more nausea and vomiting Dry heaves are better On room air now weaned off oxygen Edema is improved 08/04/21: Patient doing okay except for nausea and vomiting Consulting Dr. Weinstein Remeron will be started and Celexa also Starting proton pump inhibitor Carafate will also be added Zofran still maintained Review of Systems General: Fatigue, Malaise Focused Exam Time of Focused Exam: 06:30 Objective Exam Vital Signs Vital Signs Date Time Temp Pulse Resp B/P (MAP) Pulse Ox O2 Delivery O2 Flow Rate FiO2 08/06/21 20:47 92 Room Air 08/06/21 19:34 37.8 70 16 111/61 (78) 08/06/21 09:13 2.00 Capillary Refill : General Appearance: No Apparent Distress, WD/WN, Chronically ill HEENT: PERRL/EOMI, Pharynx Normal Neck: Normal Inspection, Non Tender, Supple Respiratory: Chest Non Tender, Lungs Clear, Normal Breath Sounds, No Accessory Muscle Use, No Respiratory Distress Cardiovascular: Regular Rate, Rhythm, No Edema, No Gallop, No Murmur, Normal Peripheral Pulses Gastrointestinal: Normal Bowel Sounds, No Organomegaly, No Pulsatile Mass, Non Tender, Soft Back: Normal Inspection, No CVA Tenderness, No Vertebral Tenderness Extremity: Normal Capillary Refill, No Calf Tenderness, No Pedal Edema, Other (right knee pain) Neurologic/Psychiatric: Alert, Oriented x3, Normal Mood/Affect Skin: Normal Color, Warm/Dry Lymphatic: No Adenopathy (cervical or supraclavicular) Results/Procedures Lab Laboratory Tests 08/06/21 05:34 Patient resulted labs reviewed. FIM Transfers Therapy Code Descriptions/Definitions Functional [place] Measure: 0=Not Assessed/NA 4=Minimal Assistance 1=Total Assistance 5=Supervision or Setup 2=Maximal Assistance 6=Modified [place] 3=Moderate Assistance 7=Complete IndependenceSCALE: Activities may be completed with or without assistive devices. 5-Dejjdgzypd-dlsajqu completes the activity by him/herself with no assistance from a helper. 5-Set-up or Clean-up Assistance-helper sets up or cleans up; patient completes activity. [place] assists only prior to or following the activity. 4-Supervision or Touching Assistance-helper provides verbal cues and/or touching/steadying and/or contact guard assistance as patient completes activ ity. Assistance may be provided throughout the activity or intermittently. 3-Partial/Moderate Assistance-helper does LESS THAN HALF the effort. [place] lifts, holds or supports trunk or limbs, but provides less than half the effort. 2-Substantial/Maximal Assistance-helper does MORE THAN HALF the effort. [place] lifts or holds trunk or limbs and provides more than half the effort. 2-Uhoyuhjoo-jdsvvf does ALL the effort. Patient does none of the effort to complete the activity. Or, the assistance of 2 or more helpers is required for the patient to complete the activity. If activity was not attempted, code reason: 7-Patient Refused. 9-Not Applicable-not attempted and the patient did not perform the activity before the current illness, exacerbation or injury. 10-Not Attempted due to Environmental Limitations-(lack of equipment, weather restraints, etc.). 88-Not Attempted due to Medical Conditions or Safety Concerns. Roll Left to Right (QC): 4 Sit to Lying (QC): 4 Sit to Stand (QC): 4 Chair/Bag-vn-Oyihl Xfer(QC): 4 Car Transfer (QC): 4 Gait Training Does the Patient Walk?: Yes Distance: 100'x2 Walk 10 feet (QC): 4 Walk 50 ft with 2 Turns(QC): 4 Walk 150 ft (QC): 88 Walking 10ft/uneven surface-QC: 4 Gait Persons Needed: 1 Gait Assistive Device: FWW Wheelchair Training Wheel 50 ft with 2 turns (QC): 9 Wheel 150 ft (QC): 9 Stair Training #of Steps: 1 1 Step (curb) (QC): 4 4 Steps (QC): 88 12 Steps (QC): 88 Balance Picking up an Object (QC): 4 ADL-Treatment Eating (QC): 5 (set up with breakfast per pt report.) Oral Hygiene (QC): 4 (SBA seated at sink. Pt required verbal cue to place top dentures back in her mouth after task.) Shower/Bathe Self (QC): 4 (Supervision. Pt able to wash/dry all parts.) Upper Body Dressing (QC): 6 (IND, pt gathered shirt from closet able to don without assist) Lower Body Dressing (QC): 4 (Supervision. Pt gathered clothes from closet, donned with supervision in stand.) On/Off Footwear (QC): 5 (set up with gripper socks.) Toileting Hygiene (QC): 4 (SBA, pt able to manage clothing down, complete hygiene, then managed brief up. Required cue to pull up pants.) Toilet Transfer (QC): 4 (Supervision on/off BSC over toilet.) Assessment/Plan Assessment and Plan Assess & Plan/Chief Complaint Assessment: s/p acute CHF Generalized weakness and debility Recent right knee replacement requiring IRF services complicated with hematoma recently Fall risk History of lymphoma Paroxysmal atrial fibrillation History of recurrent GI bleeds h/o constipation Diabetes Hypertension Mild cognitive decline h/o severe iron deficiency requiring transfusion and iron infusions Diabetes Plan: Appreciate cardiology Inpatient rehab protocol Pain control Increase nutrition 08/04/2021: Nausea and vomiting management Consult Dr. Weinstein Proton pump inhibitor and Carafate Remeron and Celexa restart 08/05/2021: Supportive care Appreciate Dr. Weinstein 08/06/21: Advance diet per surgery recs Dr Morrell consult (1) Debility Status: Acute (2) DLBCL (diffuse large B cell lymphoma) Status: Chronic (3) PAF (paroxysmal atrial fibrillation) Status: Chronic (4) Hematoma of right knee region Status: Acute (5) Acute heart failure with preserved ejection fraction (HFpEF) Status: Acute (6) Acute respiratory failure with hypoxia Status: Acute (7) T2DM (type 2 diabetes mellitus) Status: Chronic (8) HTN (hypertension) Status: Chronic (9) Nausea and vomiting Status: Acute JEANNE HENSON DO Aug 06, 2021 09:15
--- NOTE | 2021-08-06 09:37 | Speech Therapy Daily Note ---
Speech Daily Progress Note Subjective Date Seen by Provider: Aug 06, 2021 Time Seen by Provider: 00:30 Patient was sitting up in her recliner following her OT session which included a shower. She states the weekend was boring, however all three of her children came to the hospital to visit. Objective Patient completed a series of q/a related to her daily needs and routine with 85% given 10% cues/repetition. Assessment Assessment Current Status: Good Progress Treatment Plan Continue Plan of Care Speech Short Term Goals Short Term Goals Short Term Goals 1) The patient will complete memory activities related to her daily routine at 80% or greater with minimal cues. 2) The patient will complete safety awareness activities related to her daily routine at 80% or greater with minimal cues. 3) The patient will complete problem solving activities related to her daily routine at 80% or greater with minimal cues. Speech-Plan Patient/Family Goals Patient/Family Goals: Patient plans to return to her home where she lives with her . Treatment Plan Speech Therapy Treatment Plan: Continue Plan of Care Treatment Duration: Aug 17, 2021 Frequency: 4 times per week (Patient will receive skilled ST 4-5x per week) Estimated Hrs Per Day: .5 hour per day Rehab Potential: Fair Barriers to Learning: Patient's mild cognitive deficits Pt/Family Agrees to Plan: Yes Safety Risks/Education Teaching Recipient: Patient Teaching Methods: Demonstration, Discussion Response to Teaching: Verbalize Understanding, Return Demonstration Education Topics Provided: Continued safety within her room, communication of wants/needs Time Speech Therapy Time In: 09:30 Speech Therapy Time Out: 10:00 Total Billed Time: 30 Billed Treatment Time 1, JOHN Fleming Aug 06, 2021 09:37
--- NOTE | 2021-08-06 11:42 | Progress Note - Cardiology ---
Cardiology SOAP Progress Note Subjective: Up with PT No c/o Objective: I&O/Vital Signs Constitutional: AAO x 3, well-developed, other Respiratory: No accessory muscle use; other (Good bilateral air entry) Cardiovascular: regular rate-rhythm, S1 and S2, systolic murmur (Soft [place] at card base) Gastrointestional: No tender; soft; No guarding, No rebound; audible bowel sounds Extremities: No clubbing, No cyanosis, No significant edema Neurologic/Psychiatric: oriented x 3, other (moves all limbs equally) Skin: normal color, warm/dry Results/Procedures: Labs A/P: Assessment: Hosp with progressive dyspnea in late Jul / early Aug 2021 due to acute on chronic diastolic CHF (HFpEF) - Echo of 07/11/19: LVEF 60-65%, mild MR, mod AI, mild to mod TR, grade 2 mccullough dysfunction, RVSP 47 mmHg - MPI of Jul 13, 2019 showed no evidence of ischemia/infarction; LVEF 67% - Echo of 08/02/21: LVEF 50-55%, mild AI - low prob PE on [place] lung scan on 08/02/21 H/O RTKA by Dr. Morrell on Jul 04, 2021 - subsequent cellulitis - being treated as an out pt PAF - rate controlled; has chronically been treated with flecainide (managed by Dr. Muhammad at [facility]) - OAC with Eliqus - low dose d/t chronic anemia with GIB requiring transfusions in the past as advised by hematology/oncology services (Dr. Payne). Currently on full dose and tolerating well Nausea of undetermined etiology H/o anemia of undetermined etiology which has required multiple transfusions in the past (she reports chronic anemia for which she has had multiple eval in the past with unknown cause). Previous stool positive for occult blood during previous admission of Aug 2019 Non-Hodgkin B-cell lymphoma - follows with Dr. Payne of oncology services Plan: * Continue current regimen * Monitor labs DAVINA TRONCOSO Aug 06, 2021 11:41
--- NOTE | 2021-08-06 12:02 | Physical Therapy Daily Note ---
PT Daily Note-Current Subjective Pt.c/o pain in right knee at 9/10. Pt. states she cant tolerate flexion or extension work.. This was communicated to nursing as pt, requested a 2nd diana pill. Nurse explains some concern about the appearance of the knee incision as well as pt having nausea issues and poor tolerance for her pills etc. Pain Location: Right Location Body Site: Knee Pain Description: Stabbing Mental Status Patient Orientation: Normal For Age hard of hearing Transfers SCALE: Activities may be completed with or without assistive devices. 0-Fttyhmybxb-apkyftq completes the activity by him/herself with no assistance from a helper. 5-Set-up or Clean-up Assistance-helper sets up or cleans up; patient completes activity. [place] assists only prior to or following the activity. 4-Supervision or Touching Assistance-helper provides verbal cues and/or touching/steadying and/or contact guard assistance as patient completes activity. Assistance may be provided throughout the activity or intermittently. 3-Partial/Moderate Assistance-helper does LESS THAN HALF the effort. [place] lifts, holds or supports trunk or limbs, but provides less than half the effort. 2-Substantial/Maximal Assistance-helper does MORE THAN HALF the effort. [place] lifts or holds trunk or limbs and provides more than half the effort. 9-Dmocehywi-kmpsvt does ALL the effort. Patient does none of the effort to complete the activity. Or, the assistance of 2 or more helpers is required for the patient to complete the activity. If activity was not attempted, code reason: 7-Patient Refused. 9-Not Applicable-not attempted and the patient did not perform the activity before the current illness, exacerbation or injury. 10-Not Attempted due to Environmental Limitations-(lack of equipment, weather restraints, etc.). 88-Not Attempted due to Medical Conditions or Safety Concerns. Roll Left & Right (QC): 6 Sit to Lying (QC): 6 Lying to Sitting/Side of Bed(Q: 6 Sit to Stand (QC): 6 Chair/Oax-jj-Vgaev Xfer(QC): 5 Toilet Transfer (QC): 6 Gait Training Does the Patient Walk?: Yes Walk 10 feet (QC): 5 Walk 50 ft with 2 Turns(QC): 5 Walk 150 ft (QC): 5 Gait Persons Needed: 1 Gait Assistive Device: FWW flexed knee to approx 50 degrees, poor to no heel strike, flexed posture, head down Exercises Supine Ex: Ankle pumps, Quad Set, Glut sets, Heel Slides, Short Arc Quads, Straight leg raise, Hip abd/add Supine Reps: 12 Seated Therapy Exercises: Ankle pumps, Sit to stand, Long arc quads Seated Reps: 15 NuStep Minutes: 10 NuStep Workload: 3 Treatments ice packs applied posterior and anterior for pain with some response as pt. states she is at 6/10 after Rx. Gentle ROM and assist for exercise as pt. had such pain response with exercise Assessment Current Status: Fair Progress limited by pain, ROM approx 45 degrees extension, flexion at 85 to 90 degrees PT Short Term Goals Short Term Goals Time Frame: Aug 10, 2021 Roll Left & Right: 6 Sit to lyin Lying to sitting on side of be: 6 Sit to stand: 4 (SBA) Chair/mds-fd-sxayt transfer: 4 (SBA) Walk 10 feet: 4 (SBA) Walk 50 feet with two turns: 4 (SBA) Walk 150 feet: 4 (SBA) PT Director Cost Goals Director Cost Goals PT Director Cost Goals Time Frame: Aug 24, 2021 Roll Left & Right (QC): 6 Sit to Lying (QC): 6 Lying-Sitting on Side/Bed(QC): 6 Sit to Stand (QC): 6 Chair/Htv-ku-Lwuuf Xfer(QC): 6 Toilet Transfer (QC): 6 Car Transfer (QC): 6 Does the Patient Walk: Yes Walk 10 feet (QC): 6 Walk 50ft with 2 Turns (QC): 6 Walk 150 ft (QC): 6 Walking 10ft on Uneven Surface: 6 1 Step (curb) (QC): 4 4 Steps (QC): 4 12 Steps (QC): 88 Picking up an Object (QC): 6 Wheel 50 feet with 2 turns (QC: 9 Wheel 150 feet: 9 PT Plan Treatment/Plan Treatment Plan: Continue Plan of Care Treatment Plan: Bed Mobility, Education, Functional Activity Sharad, Functional Strength, Group Therapy, Gait, Safety, Therapeutic Exercise, Transfers Treatment Duration: Aug 24, 2021 Frequency: At least 5 of 7 days/Wk (IRF) Estimated Hrs Per Day: 1.5 hours per day Patient and/or Family Agrees t: Yes Safety Risks/Education Patient Education: Gait Training, Transfer Techniques, Correct Positioning, Disease Process, Safety Issues Teaching Recipient: Patient Teaching Methods: Demonstration, Discussion Response to Teaching: Verbalize Understanding, Return Demonstration, Reinforcement Needed Time/GCodes Time In: 1100 Time Out: 1200 Total Billed Treatment Time: 60 Total Billed Treatment 1,GT20m,EX25m,FA15m ZENIA HAQUE REFERRAL COORDINATOR Aug 06, 2021 12:02
--- NOTE | 2021-08-06 13:22 | Physical Therapy Daily Note ---
PT Daily Note-Current Subjective Patient agrees to bed exercises. Mental Status Patient Orientation: Person, Time, Situation Transfers SCALE: Activities may be completed with or without assistive devices. 0-Hxiosfudma-amhvcmu completes the activity by him/herself with no assistance from a helper. 5-Set-up or Clean-up Assistance-helper sets up or cleans up; patient completes activity. [place] assists only prior to or following the activity. 4-Supervision or Touching Assistance-helper provides verbal cues and/or touching/steadying and/or contact guard assistance as patient completes activity. Assistance may be provided throughout the activity or intermittently. 3-Partial/Moderate Assistance-helper does LESS THAN HALF the effort. [place] lifts, holds or supports trunk or limbs, but provides less than half the effort. 2-Substantial/Maximal Assistance-helper does MORE THAN HALF the effort. [place] lifts or holds trunk or limbs and provides more than half the effort. 2-Oivjdrxtj-tpuhig does ALL the effort. Patient does none of the effort to complete the activity. Or, the assistance of 2 or more helpers is required for the patient to complete the activity. If activity was not attempted, code reason: 7-Patient Refused. 9-Not Applicable-not attempted and the patient did not perform the activity before the current illness, exacerbation or injury. 10-Not Attempted due to Environmental Limitations-(lack of equipment, weather restraints, etc.). 88-Not Attempted due to Medical Conditions or Safety Concerns. Exercises Supine Ex: Ankle pumps, Quad Set, Glut sets, Heel Slides, Short Arc Quads, Straight leg raise Supine Reps: 12 (bilaterally) Assessment Patient tolerated treatment and remains in bed with rails up. RN in to assess right knee wound. Noted redness and very warm to touch. PT Short Term Goals Short Term Goals Time Frame: Aug 10, 2021 Roll Left & Right: 6 Sit to lyin Lying to sitting on side of be: 6 Sit to stand: 4 (SBA) Chair/xxv-iv-vvzjn transfer: 4 (SBA) Walk 10 feet: 4 (SBA) Walk 50 feet with two turns: 4 (SBA) Walk 150 feet: 4 (SBA) PT Licensing Worker Goals Licensing Worker Goals PT Detention Goals Time Frame: Aug 24, 2021 Roll Left & Right (QC): 6 Sit to Lying (QC): 6 Lying-Sitting on Side/Bed(QC): 6 Sit to Stand (QC): 6 Chair/Kwb-ul-Uegrq Xfer(QC): 6 Toilet Transfer (QC): 6 Car Transfer (QC): 6 Does the Patient Walk: Yes Walk 10 feet (QC): 6 Walk 50ft with 2 Turns (QC): 6 Walk 150 ft (QC): 6 Walking 10ft on Uneven Surface: 6 1 Step (curb) (QC): 4 4 Steps (QC): 4 12 Steps (QC): 88 Picking up an Object (QC): 6 Wheel 50 feet with 2 turns (QC: 9 Wheel 150 feet: 9 PT Plan Treatment/Plan Treatment Plan: Continue Plan of Care Treatment Plan: Bed Mobility, Education, Functional Activity Sharad, Functional Strength, Group Therapy, Gait, Safety, Therapeutic Exercise, Transfers Treatment Duration: Aug 24, 2021 Frequency: At least 5 of 7 days/Wk (IRF) Estimated Hrs Per Day: 1.5 hours per day Patient and/or Family Agrees t: Yes Time/GCodes Time In: 1255 Time Out: 1311 Total Billed Treatment Time: 16 Total Billed Treatment 1 visit EX 16 min CURTIS GARCIA PT Aug 06, 2021 13:22
[2021-08-06] MEDS ORDERED: VANCOMYCIN INJECTION 0.1 MG in NS (IVPB) 250 ML IV SCH (13:30)
[2021-08-06] MEDS ORDERED: VANCOMYCIN 1500 MG/NS 500 ML IVPB IV NR ×2 (14:30)
--- NOTE | 2021-08-06 15:50 | Progress Note - Cardiology ---
Cardiology SOAP Progress Note Subjective: No cp or palp or syncope No shortness of breath at rest No n/v/d Gen weakness and malaise are improving Objective: I&O/Vital Signs 08/06/21 08/06/21 08/06/21 08:00 08:42 09:13 Temp 36.4 Pulse 75 Resp 18 B/P (MAP) 145/61 (89) Pulse Ox 92 O2 Delivery Room Air Room Air Nasal Cannula O2 Flow Rate 0.00 2.00 Constitutional: AAO x 3, well-developed, other Respiratory: No accessory muscle use; other (Good bilateral air entry) Cardiovascular: regular rate-rhythm, S1 and S2, systolic murmur (Soft [place] at card base) Gastrointestional: No tender; soft; No guarding, No rebound; audible bowel sounds Extremities: No clubbing, No cyanosis, No significant edema Neurologic/Psychiatric: oriented x 3, other (moves all limbs equally) Skin: normal color, warm/dry Results/Procedures: Labs Laboratory Tests 08/06/21 05:34: White Blood Count 4.7, Red Blood Count 3.38L, Hemoglobin 9.8L, Hematocrit 32L, Mean Corpuscular Volume 94, Mean Corpuscular Hemoglobin 29, Mean Corpuscular Hemoglobin Concent 31L, Red Cell Distribution Width 19.4H, Platelet Count 295, Mean Platelet Volume 9.1, Immature Granulocyte % (Auto) 0, Neutrophils (%) (Auto) 58, Lymphocytes (%) (Auto) 17, Monocytes (%) (Auto) 19H, Eosinophils (%) (Auto) 4, Basophils (%) (Auto) 2, Neutrophils # (Auto) 2.7, Lymphocytes # (Auto) 0.8L, Monocytes # (Auto) 0.9, Eosinophils # (Auto) 0.2, Basophils # (Auto) 0.1, Immature Granulocyte # (Auto) 0.0, Neutrophils % (Manual) 65, Lymphocytes % (Manual) 15, Monocytes % (Manual) 16, Eosinophils % (Manual) 3, Band Neutrophils 4, Sodium Level 138, Potassium Level 3.4L, Chloride Level 100, Carbon Dioxide Level 28, Anion Gap 10, Blood Urea Nitrogen 5L, Creatinine 0.73, Estimat Glomerular Filtration Rate 77, BUN/Creatinine Ratio 7, Glucose Level 133H, Calcium Level 8.3L, Corrected Calcium 9.3, Total Bilirubin 0.5, Aspartate Amino Transf (AST/SGOT) 15, Alanine Aminotransferase (ALT/SGPT) 10, Alkaline Phosphatase 175H, Total Protein 5.8L, Albumin 2.8L A/P: Assessment: Hosp with progressive dyspnea in late Jul / early Aug 2021 due to acute on chronic diastolic CHF (HFpEF) - Echo of 07/11/19: LVEF 60-65%, mild MR, mod AI, mild to mod TR, grade 2 mccullough dysfunction, RVSP 47 mmHg - MPI of Jul 13, 2019 showed no evidence of ischemia/infarction; LVEF 67% - Echo of 08/02/21: LVEF 50-55%, mild AI - low prob PE on [place] lung scan on 08/02/21 H/O RTKA by Dr. Morrell on Jul 04, 2021 - subsequent cellulitis - being treated as an out pt PAF - rate controlled; has chronically been treated with flecainide (managed by Dr. Muhammad at [facility]) - OAC with Eliqus - low dose d/t chronic anemia with GIB requiring transfusions in the past as advised by hematology/oncology services (Dr. Payne). Currently on full dose and tolerating well Nausea of undetermined etiology H/o anemia of undetermined etiology which has required multiple transfusions in the past (she reports chronic anemia for which she has had multiple eval in the past with unknown cause). Previous stool positive for occult blood during previous admission of Aug 2019 Non-Hodgkin B-cell lymphoma - follows with Dr. Payne of oncology services Plan: * Continue current regimen * Monitor labs ANA FINLEY MD FACP FAC CCDS Aug 06, 2021 15:50
[2021-08-06 19:34] VITALS: BP 111/61
[2021-08-06] MEDS: MIRTAZAPINE 15 MG (REMERON) TAB PO SCH (20:38)
--- NOTE | 2021-08-06 23:11 | CONSULTATION REPORT ---
DATE OF SERVICE: 08/06/2021 REASON FOR CONSULTATION: Right knee hematoma. HISTORY OF PRESENT ILLNESS: The patient is well known to me who previously underwent a right total knee arthroplasty. I have been following her while she was admitted on the fourth floor, following her wound closely. She has had a hematoma, which has drained some, but she has shown no signs of septic arthritis. Currently, she has no fever, chills. Her reports that the knee looks a lot better. She has had no drainage. PHYSICAL EXAMINATION: Today, there is some discoloration and some ecchymosis. There is no drainage from the wound. Her incision is well healed with the exception of some mild dehiscence of the hematoma site superiorly. She has no calf tenderness. No gross effusion. IMPRESSION: Right knee hematoma. PLAN: We will treat the patient prophylactically with a few days of vancomycin and follow her clinically. I do feel that this is improved. I do not see any signs or symptoms of septic arthritis. She continue with therapy in the interim. Job ID: [id number] DocumentID: [id number] Dictated Date: 08/06/2021 16:58:29 Transportation Mechanic Date: 08/06/2021 22:17:00 Dictated By: GEGE ARCE MD
[2021-08-07] MEDS: ONDANSETRON 4 MG/2 ML (SDV) Z0FRAN IV PRN (05:12)
[2021-08-07] MEDS: SUCRALFATE 1 GM (CARAFATE) TAB PO SCH ×4 (05:16→20:55)
[2021-08-07] MEDS: KCL 20 MEQ TAB (K-DUR) PO SCH (05:50)
[2021-08-07 07:53] VITALS: BP 182/75
[2021-08-07] MEDS: SENNA W/DOCUSATE (SENOKOT S) TABLET PO SCH ×2 (08:04→21:02)
[2021-08-07] MEDS: amLODIPine 5 MG (NORVASC) TAB PO SCH (08:04)
[2021-08-07] MEDS: SENNOSIDES 8.6 MG (SENOKOT) TAB PO SCH ×2 (08:04→21:02)
[2021-08-07] MEDS: DOCUSATE SODIUM 100 MG (COLACE) CAP PO SCH ×2 (08:04→21:02)
[2021-08-07] MEDS: APIXABAN 5 MG (ELIQUIS) TABLET PO SCH ×2 (08:04→20:55)
[2021-08-07] MEDS: LOSARTAN 50 MG (COZAAR) TAB PO SCH (08:04)
[2021-08-07] MEDS: PANTOPRAZOLE 40 MG (PROTONIX) TAB PO SCH (08:04)
[2021-08-07] MEDS: FUROSEMIDE 40 MG/4 ML INJ (LASIX) IVP SCH (08:04)
[2021-08-07] MEDS: polyethylene glycoL POWDER 17 GM (MIRALAX) PACK PO SCH ×2 (08:05→21:02)
--- NOTE | 2021-08-07 08:41 | Occupational Ther Daily Note ---
OT Current Status-Daily Note Subjective Pt in bed, agreeable to OT Tx. Mental Status/Objective Patient Orientation: Person, Place, Situation ADL-Treatment Therapy Code Descriptions/Definitions Functional [place] Measure: 0=Not Assessed/NA 4=Minimal Assistance 1=Total Assistance 5=Supervision or Setup 2=Maximal Assistance 6=Modified [place] 3=Moderate Assistance 7=Complete IndependenceSCALE: Activities may be completed with or without assistive devices. 8-Tygjwtcvqr-tshfhni completes the activity by him/herself with no assistance from a helper. 5-Set-up or Clean-up Assistance-helper sets up or cleans up; patient completes activity. [place] assists only prior to or following the activity. 4-Supervision or Touching Assistance-helper provides verbal cues and/or touching/steadying and/or contact guard assistance as patient completes activity. Assistance may be provided throughout the activity or intermittently. 3-Partial/Moderate Assistance-helper does LESS THAN HALF the effort. [place] lifts, holds or supports trunk or limbs, but provides less than half the effort. 2-Substantial/Maximal Assistance-helper does MORE THAN HALF the effort. [place] lifts or holds trunk or limbs and provides more than half the effort. 2-Kuptseivk-pjcwec does ALL the effort. Patient does none of the effort to complete the activity. Or, the assistance of 2 or more helpers is required for the patient to complete the activity. If activity was not attempted, code reason: 7-Patient Refused. 9-Not Applicable-not attempted and the patient did not perform the activity before the current illness, exacerbation or injury. 10-Not Attempted due to Environmental Limitations-(lack of equipment, weather restraints, etc.). 88-Not Attempted due to Medical Conditions or Safety Concerns. Oral Hygiene (QC): 4 (SBA, pt required verbal cue to locate toothpaste on counter. Verbal cue to put dentures back in after brushing her teeth.) Toileting Hygiene (QC): 4 (Supervision) Toilet Transfer (QC): 4 (supervision) Other Treatment 4200-8105: Pt transferred supine to sit EOB, independently. Used FWW to go to bathroom, SBA, transferring onto toilet. Pt completed toileting, supervision, then stood at sink to wash her hands. Pt sat at sink to complete oral care and hair brushing, then used FWW to go to therapy gym, SBA. Pt completed 2 mins 30 seconds on arm bike, then states she needs to toilet again. Pt returned to her room, completed toileting, then used FWW to return to therapy gym. Pt continued on arm bike, 15 Watt resistance, 15 mins total. She then removed beads from moderate resistance theraputty in order to increase fine motor strength and coordination. Pt able to locate all beads without cues. She completed various theraputty exercises, including putty roll, flattening putty, and hand squeezes. [id number] OT/PT cotreat due to skill of 2 clinicians required which a rehabilitation services coordinator could not perform in order to focus on higher level balance tasks, decrease fall risk, and due to pt's limitations in strength and activity tolerance. OT focused on UE positioning, cues for sequencing and safety, while PT focused on LE placement, gross overall movement, and balance/mobility. Pt returned to bathroom to complete toileting, then used FWW to kitchen area. Pt located 8/8 evans bags hidden throughout cabinets/drawers/countertops. Pt required cues to locate 1/2 of the evans bags. Post tx, pt with PT, all needs met. Education OT Patient Education: Correct positioning, Energy conservation, Modified ADL techniques, Progress toward Goal/Update tx plan, Purpose of tx/functional activities, Rehab process, Safety issues, Transfer techniques Teaching Recipient: Patient Teaching Methods: Discussion Response to Teaching: Verbalize Understanding OT Short Term Goals Short Term Goals Time Frame: Aug 08, 2021 Shower/bathe self: 5 Lower body dressin Putting on/taking off footwear: 5 OT Care Home Goals Care Home Goals Time Frame: Aug 17, 2021 Eating (QC): 6 Oral Hygiene (QC): 6 Toileting Hygiene (QC): 6 Shower/Bathe Self (QC): 6 Upper Body Dressing (QC): 6 Lower Body Dressing (QC): 6 On/Off Footwear (QC): 6 Additional Goals: 1-Demonstrate ADL Tasks, 2-Verbalize Understanding, 3- ImproveStrength/Sharad 1=Demonstrate adherence to instructed precautions during ADL tasks. 2=Patient will verbalize/demonstrate understanding of assistive devices/modifications for ADL. 3=Patient will improve strength/tolerance for activity to enable patient to perform ADL's. OT Education/Plan Problem List/Assessment Assessment: Decreased Activ Tolerance, Decreased Safety Aware, Decreased UE Strength, Impaired Funct Balance, Impaired I ADL's, Impaired Self-Care Skills Discharge Recommendations Plan/Recommendations: Continue POC Treatment Plan/Plan of Care Patient would benefit from OT for education, treatment and training to promote independence in ADL's, mobility, safety and/or upper extremity function for ADL's. Plan of Care: ADL Retraining, Functional Mobility, Group Exercise/Act as Ind, UE Funct Exercise/Act Treatment Duration: Aug 17, 2021 Frequency: At least 5 of 7 days/Wk (IRF) Estimated Hrs Per Day: .25 hour per day Rehab Potential: Fair Time/GCodes Start Time: 08:00 Stop Time: 09:15 Total Time Billed (hr/min): 75 Billed Treatment Time [id number] OT tx, [id number] [place] 1, ADL 2 (30'), EX (20'), FA 3 (40') RYAN DUNNE OT Aug 07, 2021 08:41
--- NOTE | 2021-08-07 09:23 | PM&R Progress Note ---
Subjective HPI/CC On Admission Date Seen by Provider: Aug 07, 2021 Time Seen by Provider: 09:30 Subjective/Events-last exam 08/07/2021: Supportive care continues Patient doing well Had nausea few times already Leg edema up above knee 08/06/21: Pt doing well Dr. Weinstein will consult Will await advancement of diet She is feeling well No more dry heaving 08/05/21: Patient doing well No more nausea and vomiting Dry heaves are better On room air now weaned off oxygen Edema is improved 08/04/21: Patient doing okay except for nausea and vomiting Consulting Dr. Weinstein Remeron will be started and Celexa also Starting proton pump inhibitor Carafate will also be added Zofran still maintained Review of Systems General: Fatigue, Malaise Focused Exam Time of Focused Exam: 06:30 Objective Exam Vital Signs Vital Signs Date Time Temp Pulse Resp B/P (MAP) Pulse Ox O2 Delivery O2 Flow Rate FiO2 08/07/21 08:58 93 Room Air 08/07/21 07:53 36.8 73 18 182/75 (110) 08/06/21 09:13 2.00 Capillary Refill : General Appearance: No Apparent Distress, WD/WN, Chronically ill HEENT: PERRL/EOMI, Pharynx Normal Neck: Normal Inspection, Non Tender, Supple Respiratory: Chest Non Tender, Lungs Clear, Normal Breath Sounds, No Accessory Muscle Use, No Respiratory Distress Cardiovascular: Regular Rate, Rhythm, No Edema, No Gallop, No Murmur, Normal Peripheral Pulses Gastrointestinal: Normal Bowel Sounds, No Organomegaly, No Pulsatile Mass, Non Tender, Soft Back: Normal Inspection, No CVA Tenderness, No Vertebral Tenderness Extremity: Normal Capillary Refill, No Calf Tenderness, No Pedal Edema, Other (right knee pain) Neurologic/Psychiatric: Alert, Oriented x3, Normal Mood/Affect Skin: Normal Color, Warm/Dry Lymphatic: No Adenopathy (cervical or supraclavicular) Results/Procedures Lab Patient resulted labs reviewed. [facility]IM Transfers Therapy Code Descriptions/Definitions Functional [place] Measure: 0=Not Assessed/NA 4=Minimal Assistance 1=Total Assistance 5=Supervision or Setup 2=Maximal Assistance 6=Modified [place] 3=Moderate Assistance 7=Complete IndependenceSCALE: Activities may be completed with or without assistive devices. 3-Dnglrarpci-hofvcky completes the activity by him/herself with no assistance from a helper. 5-Set-up or Clean-up Assistance-helper sets up or cleans up; patient completes activity. [place] assists only prior to or following the activity. 4-Supervision or Touching Assistance-helper provides verbal cues and/or touching/steadying and/or contact guard assistance as patient completes activity. Assistance may be provided throughout the activity or intermittently. 3-Partial/Moderate Assistance-helper does LESS THAN HALF the effort. [place] lifts, holds or supports trunk or limbs, but provides less than half the effort. 2-Substantial/Maximal Assistance-helper does MORE THAN HALF the effort. [place] lifts or holds trunk or limbs and provides more than half the effort. 2-Vgoqefwwf-pakqwy does ALL the effort. Patient does none of the effort to complete the activity. Or, the assistance of 2 or more helpers is required for the patient to complete the activity. If activity was not attempted, code reason: 7-Patient Refused. 9-Not Applicable-not attempted and the patient did not perform the activity before the current illness, exacerbation or injury. 10-Not Attempted due to Environmental Limitations-(lack of equipment, weather restraints, etc.). 88-Not Attempted due to Medical Conditions or Safety Concerns. Roll Left to Right (QC): 6 Sit to Lying (QC): 6 Sit to Stand (QC): 6 Chair/Mmv-bg-Pnkcf Xfer(QC): 5 Car Transfer (QC): 4 Gait Training Does the Patient Walk?: Yes Distance: 100'x2 Walk 10 feet (QC): 5 Walk 50 ft with 2 Turns(QC): 5 Walk 150 ft (QC): 5 Walking 10ft/uneven surface-QC: 4 Gait Persons Needed: 1 Gait Assistive Device: FWW Wheelchair Training Wheel 50 ft with 2 turns (QC): 9 Wheel 150 ft (QC): 9 Stair Training #of Steps: 1 1 Step (curb) (QC): 4 4 Steps (QC): 88 12 Steps (QC): 88 Balance Picking up an Object (QC): 4 ADL-Treatment Eating (QC): 5 (set up with breakfast per pt report.) Oral Hygiene (QC): 4 (SBA, pt required verbal cue to locate toothpaste on counter. Verbal cue to put dentures back in after brushing her teeth.) Shower/Bathe Self (QC): 4 (Supervision. Pt able to wash/dry all parts.) Upper Body Dressing (QC): 6 (IND, pt gathered shirt from closet able to don without assist) Lower Body Dressing (QC): 4 (Supervision. Pt gathered clothes from closet, donned with supervision in stand.) On/Off Footwear (QC): 5 (set up with gripper socks.) Toileting Hygiene (QC): 4 (Supervision) Toilet Transfer (QC): 4 (supervision) Assessment/Plan Assessment and Plan Assess & Plan/Chief Complaint Assessment: s/p acute CHF Generalized weakness and debility Recent right knee replacement requiring IRF services complicated with hematoma recently Fall risk History of lymphoma Paroxysmal atrial fibrillation History of recurrent GI bleeds h/o constipation Diabetes Hypertension Mild cognitive decline h/o severe iron deficiency requiring transfusion and iron infusions Diabetes Plan: Appreciate cardiology Inpatient rehab protocol Pain control Increase nutrition 08/04/2021: Nausea and vomiting management Consult Dr. Weinstein Proton pump inhibitor and Carafate Remeron and Celexa restart 08/05/2021: Supportive care Appreciate Dr. Weinstein 08/06/21: Advance diet per surgery recs Dr Morrell consult 08/07/2021: Maintain stomach medication Supportive care (1) Debility Status: Acute (2) DLBCL (diffuse large B cell lymphoma) Status: Chronic (3) PAF (paroxysmal atrial fibrillation) Status: Chronic (4) Hematoma of right knee region Status: Acute (5) Acute heart failure with preserved ejection fraction (HFpEF) Status: Acute (6) Acute respiratory failure with hypoxia Status: Acute (7) T2DM (type 2 diabetes mellitus) Status: Chronic (8) HTN (hypertension) Status: Chronic (9) Nausea and vomiting Status: Acute JEANNE HENSON DO Aug 07, 2021 09:23
--- NOTE | 2021-08-07 10:35 | Speech Therapy Daily Note ---
Speech Daily Progress Note Subjective Date Seen by Provider: Aug 07, 2021 Time Seen by Provider: 00:30 Patient was resting in bed following her PT session. She states she did good and wasn't having as much pain today. Objective Patient completed sequencing tasks with picture cards related to everyday needs at 80% with 10% visual/verbal cues. Assessment Assessment Current Status: Good Progress Treatment Plan Continue Plan of Care Speech Short Term Goals Short Term Goals Short Term Goals 1) The patient will complete memory activities related to her daily routine at 80% or greater with minimal cues. 2) The patient will complete safety awareness activities related to her daily routine at 80% or greater with minimal cues. 3) The patient will complete problem solving activities related to her daily routine at 80% or greater with minimal cues. Speech-Plan Patient/Family Goals Patient/Family Goals: Patient plans on returning to her home where she lives with her . Treatment Plan Speech Therapy Treatment Plan: Continue Plan of Care Treatment Duration: Aug 17, 2021 Frequency: 4 times per week (Patient will receive skilled ST 4-5x per week) Estimated Hrs Per Day: .5 hour per day Rehab Potential: Fair Barriers to Learning: Patient's cognitive deficits Pt/Family Agrees to Plan: Yes Safety Risks/Education Teaching Recipient: Patient Teaching Methods: Demonstration, Discussion Response to Teaching: Verbalize Understanding, Return Demonstration Education Topics Provided: Continued safety within her room, communication of wants/needs Time Speech Therapy Time In: 10:00 Speech Therapy Time Out: 10:30 Total Billed Time: 30 Billed Treatment Time 1, JOHN Fleming Aug 07, 2021 10:35
[2021-08-07] MEDS: VANCOMYCIN 1 GM/NS 250 ML IVPB IV SCH ×2 (11:49)
--- NOTE | 2021-08-07 13:58 | Physical Therapy Daily Note ---
PT Daily Note-Current Transfers SCALE: Activities may be completed with or without assistive devices. 0-Lhtjxuucdo-iskicjq completes the activity by him/herself with no assistance from a helper. 5-Set-up or Clean-up Assistance-helper sets up or cleans up; patient completes activity. [place] assists only prior to or following the activity. 4-Supervision or Touching Assistance-helper provides verbal cues and/or touching/steadying and/or contact guard assistance as patient completes activity. Assistance may be provided throughout the activity or intermittently. 3-Partial/Moderate Assistance-helper does LESS THAN HALF the effort. [place] lifts, holds or supports trunk or limbs, but provides less than half the effort. 2-Substantial/Maximal Assistance-helper does MORE THAN HALF the effort. [place] lifts or holds trunk or limbs and provides more than half the effort. 0-Nxllxyhuc-vkrgia does ALL the effort. Patient does none of the effort to complete the activity. Or, the assistance of 2 or more helpers is required for the patient to complete the activity. If activity was not attempted, code reason: 7-Patient Refused. 9-Not Applicable-not attempted and the patient did not perform the activity before the current illness, exacerbation or injury. 10-Not Attempted due to Environmental Limitations-(lack of equipment, weather restraints, etc.). 88-Not Attempted due to Medical Conditions or Safety Concerns. Roll Left & Right (QC): 6 Sit to Lying (QC): 6 Lying to Sitting/Side of Bed(Q: 6 Sit to Stand (QC): 6 Gait Training Does the Patient Walk?: Yes Distance: 180 feet Walk 10 feet (QC): 5 Walk 50 ft with 2 Turns(QC): 5 Walk 150 ft (QC): 5 Gait Persons Needed: 1 Gait Assistive Device: FWW Exercises Supine Ex: Ankle pumps, Quad Set, Glut sets Supine Reps: 20 Seated Therapy Exercises: Long arc quads, Hip flexion, Hamstring Curls, Hip abd/add Seated Reps: 20 Assessment Current Status: Good Progress Patient tolerated treatment well. Demonstrates good overall ability to perform observed bed mobility and transfers with mod I. Patient performs LE therapeutic exercise as listed above in supine and then in sitting. Patient ambulates 180 feet with FWW, with Mod I, with verbal cues for posture and progression. Patient in bed post treatment with all needs met, nursing notified, call light in reach. PT Short Term Goals Short Term Goals Time Frame: Aug 10, 2021 Roll Left & Right: 6 Sit to lyin Lying to sitting on side of be: 6 Sit to stand: 4 (SBA) Chair/ghu-qy-vpkcw transfer: 4 (SBA) Walk 10 feet: 4 (SBA) Walk 50 feet with two turns: 4 (SBA) Walk 150 feet: 4 (SBA) PT [facility] Goals Events And Promotions Assistant Goals PT Events And Promotions Assistant Goals Time Frame: Aug 24, 2021 Roll Left & Right (QC): 6 Sit to Lying (QC): 6 Lying-Sitting on Side/Bed(QC): 6 Sit to Stand (QC): 6 Chair/Fer-ob-Hyrox Xfer(QC): 6 Toilet Transfer (QC): 6 Car Transfer (QC): 6 Does the Patient Walk: Yes Walk 10 feet (QC): 6 Walk 50ft with 2 Turns (QC): 6 Walk 150 ft (QC): 6 Walking 10ft on Uneven Surface: 6 1 Step (curb) (QC): 4 4 Steps (QC): 4 12 Steps (QC): 88 Picking up an Object (QC): 6 Wheel 50 feet with 2 turns (QC: 9 Wheel 150 feet: 9 PT Plan Treatment/Plan Treatment Plan: Continue Plan of Care Treatment Plan: Bed Mobility, Education, Functional Activity Sharad, Functional Strength, Group Therapy, Gait, Safety, Therapeutic Exercise, Transfers Treatment Duration: Aug 24, 2021 Frequency: At least 5 of 7 days/Wk (IRF) Estimated Hrs Per Day: 1.5 hours per day Patient and/or Family Agrees t: Yes Safety Risks/Education Patient Education: Gait Training Teaching Recipient: Patient Teaching Methods: Demonstration, Discussion Response to Teaching: Verbalize Understanding, Return Demonstration Time/GCodes Time In: 1310 Time Out: 1335 Total Billed Treatment Time: 25 Total Billed Treatment Visit, celestine, LITZY Perez PT Aug 07, 2021 13:58
--- NOTE | 2021-08-07 16:07 | Physical Therapy Daily Note ---
PT Daily Note-Current Subjective Pt with OT and agreeable to co-treatment. Pt rates pain 5/10 (R) knee. Pt pleasant and willing to particpate fully with this MANAGER AUDIO throughout treatment. Mental Status Patient Orientation: Person, Place, Situation Transfers SCALE: Activities may be completed with or without assistive devices. 5-Xwqecxgdmk-dipxhby completes the activity by him/herself with no assistance from a helper. 5-Set-up or Clean-up Assistance-helper sets up or cleans up; patient completes activity. [place] assists only prior to or following the activity. 4-Supervision or Touching Assistance-helper provides verbal cues and/or touching/steadying and/or contact guard assistance as patient completes activity. Assistance may be provided throughout the activity or intermittently. 3-Partial/Moderate Assistance-helper does LESS THAN HALF the effort. [place] lifts, holds or supports trunk or limbs, but provides less than half the effort. 2-Substantial/Maximal Assistance-helper does MORE THAN HALF the effort. [place] lifts or holds trunk or limbs and provides more than half the effort. 8-Ylvrtulvf-ionshv does ALL the effort. Patient does none of the effort to complete the activity. Or, the assistance of 2 or more helpers is required for the patient to complete the activity. If activity was not attempted, code reason: 7-Patient Refused. 9-Not Applicable-not attempted and the patient did not perform the activity before the current illness, exacerbation or injury. 10-Not Attempted due to Environmental Limitations-(lack of equipment, weather restraints, etc.). 88-Not Attempted due to Medical Conditions or Safety Concerns. Transfers mod (I) Gait Training Gait Assistive Device: FWW Pt amb with FWW 2 x 125ft, 1 x 225ft, [facility] Treatments [id number] OT/PT cotreat due to skill of 2 clinicians required which a technical support technician could not perform in order to focus on higher level balance tasks, decrease fall risk, and due to pt's limitations in strength and activity tolerance. OT focused on UE positioning, cues for sequencing and safety, while PT focused on LE placement, gross overall movement, and balance/mobility. Pt returned to bathroom to complete toileting, then used FWW to kitchen area. Pt located 8/8 evans bags hidden throughout cabinets/drawers/countertops. Pt required cues to locate 1/2 of the evans bags. [id number] Pt performed standing balance activities, nustep, toileting, LE stretching: Pt balance challenged in standing by tossing 8/8 evans bags to a basket. Pt practiced stooping to pick up truck driver evans bags off floor. Pt performed nu- step x 6 min, L1. Pt back to room for toileting. Pt changed brief, pants and doffed/donned her socks all (I). Pt back to bed for PROM (R) LE. Gentle PROM (R) knee hamstring stretching, gastroc stretching, nueral glides, patellar mobility. Pt performed QS and SAQ x 20. Assessment Current Status: Good Progress Pt adi above very well. Pt knee ext appeared to improve with PROM. Pt resting with call light and all needs met post therapy session. PT Short Term Goals Short Term Goals Time Frame: Aug 10, 2021 Roll Left & Right: 6 Sit to lyin Lying to sitting on side of be: 6 Sit to stand: 4 (SBA) Chair/gbo-ua-hzsyl transfer: 4 (SBA) Walk 10 feet: 4 (SBA) Walk 50 feet with two turns: 4 (SBA) Walk 150 feet: 4 (SBA) PT Personnel Records Clerk Goals Mcc Goals PT Mcc Goals Time Frame: Aug 24, 2021 Roll Left & Right (QC): 6 Sit to Lying (QC): 6 Lying-Sitting on Side/Bed(QC): 6 Sit to Stand (QC): 6 Chair/Vfr-yb-Emdce Xfer(QC): 6 Toilet Transfer (QC): 6 Car Transfer (QC): 6 Does the Patient Walk: Yes Walk 10 feet (QC): 6 Walk 50ft with 2 Turns (QC): 6 Walk 150 ft (QC): 6 Walking 10ft on Uneven Surface: 6 1 Step (curb) (QC): 4 4 Steps (QC): 4 12 Steps (QC): 88 Picking up an Object (QC): 6 Wheel 50 feet with 2 turns (QC: 9 Wheel 150 feet: 9 PT Plan Treatment/Plan Treatment Plan: Continue Plan of Care Treatment Plan: Bed Mobility, Education, Functional Activity Sharad, Functional Strength, Group Therapy, Gait, Safety, Therapeutic Exercise, Transfers Treatment Duration: Aug 24, 2021 Frequency: At least 5 of 7 days/Wk (IRF) Estimated Hrs Per Day: 1.5 hours per day Patient and/or Family Agrees t: Yes Time/GCodes Time In: 900 Time Out: 950 Total Billed Treatment Time: 50 Total Billed Treatment 1, ther ex 35, gait 15' (Treatment time 50' total and co-treat with OT 15') NADIA NICKERSON CPTA Aug 07, 2021 16:07
[2021-08-07 20:00] VITALS: BP 119/69
[2021-08-07] MEDS: MIRTAZAPINE 15 MG (REMERON) TAB PO SCH (20:55)
--- NOTE | 2021-08-08 05:47 | PM&R Progress Note ---
Subjective HPI/CC On Admission Date Seen by Provider: Aug 08, 2021 Time Seen by Provider: 10:00 Subjective/Events-last exam 08/08/21: Pt doing well On vancomycin empirically and prophylactically for knee hematoma Midline will be placed for vancomycin Will evaluate how long Dr. Morrell wants her to remain on Vancomycin 08/07/2021: Supportive care continues Patient doing well Had nausea few times already Leg edema up above knee 08/06/21: Pt doing well Dr. Weinstein will consult Will await advancement of diet She is feeling well No more dry heaving 08/05/21: Patient doing well No more nausea and vomiting Dry heaves are better On room air now weaned off oxygen Edema is improved 08/04/21: Patient doing okay except for nausea and vomiting Consulting Dr. Weinstein Remeron will be started and Celexa also Starting proton pump inhibitor Carafate will also be added Zofran still maintained Review of Systems General: Fatigue Musculoskeletal: leg pain Focused Exam Time of Focused Exam: 06:30 Objective Exam Vital Signs Vital Signs Date Time Temp Pulse Resp B/P (MAP) Pulse Ox O2 Delivery O2 Flow Rate FiO2 08/08/21 20:10 Room Air 08/08/21 20:06 36.9 66 18 143/64 (90) 92 08/06/21 09:13 2.00 Capillary Refill : General Appearance: No Apparent Distress, WD/WN, Chronically ill HEENT: PERRL/EOMI, Pharynx Normal Neck: Normal Inspection, Non Tender, Supple Respiratory: Chest Non Tender, Lungs Clear, Normal Breath Sounds, No Accessory Muscle Use, No Respiratory Distress Cardiovascular: Regular Rate, Rhythm, No Edema, No Gallop, No Murmur, Normal Peripheral Pulses Gastrointestinal: Normal Bowel Sounds, No Organomegaly, No Pulsatile Mass, Non Tender, Soft Back: Normal Inspection, No CVA Tenderness, No Vertebral Tenderness Extremity: Normal Capillary Refill, No Calf Tenderness, No Pedal Edema, Other (right knee pain) Neurologic/Psychiatric: Alert, Oriented x3, Normal Mood/Affect Skin: Normal Color, Warm/Dry Lymphatic: No Adenopathy (cervical or supraclavicular) Results/Procedures Lab Patient resulted labs reviewed. FIM Transfers Therapy Code Descriptions/Definitions Functional [place] Measure: 0=Not Assessed/NA 4=Minimal Assistance 1=Total Assistance 5=Supervision or Setup 2=Maximal Assistance 6=Modified [place] 3=Moderate Assistance 7=Complete IndependenceSCALE: Activities may be completed with or without assistive devices. 8-Qzpysgazmi-eicbbxv completes the activity by him/herself with no assistance from a helper. 5-Set-up or Clean-up Assistance-helper sets up or cleans up; patient completes activity. [place] assists only prior to or following the activity. 4-Supervision or Touching Assistance-helper provides verbal cues and/or touching/steadying and/or contact guard assistance as patient completes activity. Assistance may be provided throughout the activity or intermittently. 3-Partial/Moderate Assistance-helper does LESS THAN HALF the effort. [place] lifts, holds or supports trunk or limbs, but provides less than half the effort. 2-Substantial/Maximal Assistance-helper does MORE THAN HALF the effort. [place] lifts or holds trunk or limbs and provides more than half the effort. 3-Ossmwoaxe-vuupys does ALL the effort. Patient does none of the effort to complete the activity. Or, the assistance of 2 or more helpers is required for the patient to complete the activity. If activity was not attempted, code reason: 7-Patient Refused. 9-Not Applicable-not attempted and the patient did not perform the activity before the current illness, exacerbation or injury. 10-Not Attempted due to Environmental Limitations-(lack of equipment, weather restraints, etc.). 88-Not Attempted due to Medical Conditions or Safety Concerns. Roll Left to Right (QC): 6 Sit to Lying (QC): 6 Sit to Stand (QC): 6 Chair/Gss-kj-Umgkq Xfer(QC): 5 Car Transfer (QC): 4 Gait Training Does the Patient Walk?: Yes Distance: 180 feet Walk 10 feet (QC): 5 Walk 50 ft with 2 Turns(QC): 5 Walk 150 ft (QC): 5 Walking 10ft/uneven surface-QC: 4 Gait Persons Needed: 1 Gait Assistive Device: FWW Wheelchair Training Does the Pt Use a Wheelchair?: No Wheel 50 ft with 2 turns (QC): 9 Wheel 150 ft (QC): 9 Type of Wheelchair: N/A Stair Training #of Steps: 1 1 Step (curb) (QC): 4 4 Steps (QC): 88 12 Steps (QC): 88 Balance Picking up an Object (QC): 4 ADL-Treatment Eating (QC): 5 (set up with breakfast per pt report.) Oral Hygiene (QC): 4 (SBA, pt required verbal cue to locate toothpaste on counter. Verbal cue to put dentures back in after brushing her teeth.) Shower/Bathe Self (QC): 4 (Supervision. Pt able to wash/dry all parts.) Upper Body Dressing (QC): 6 (IND, pt gathered shirt from closet able to don without assist) Lower Body Dressing (QC): 4 (Supervision. Pt gathered clothes from closet, donned with supervision in stand.) On/Off Footwear (QC): 5 (set up with gripper socks.) Toileting Hygiene (QC): 4 (Supervision) Toilet Transfer (QC): 4 (supervision) Assessment/Plan Assessment and Plan Assess & Plan/Chief Complaint Assessment: s/p acute CHF Generalized weakness and debility Recent right knee replacement requiring IRF services complicated with hematoma recently Fall risk History of lymphoma Paroxysmal atrial fibrillation History of recurrent GI bleeds h/o constipation Diabetes Hypertension Mild cognitive decline h/o severe iron deficiency requiring transfusion and iron infusions Diabetes Plan: Appreciate cardiology Inpatient rehab protocol Pain control Increase nutrition 08/04/2021: Nausea and vomiting management Consult Dr. Weinstein Proton pump inhibitor and Carafate Remeron and Celexa restart 08/05/2021: Supportive care Appreciate Dr. Weinstein 08/06/21: Advance diet per surgery recs Dr Morrell consult 08/07/2021: Maintain stomach medication Supportive care 08/08/21: DC tomorrow Fall risk (1) Debility Status: Acute (2) DLBCL (diffuse large B cell lymphoma) Status: Chronic (3) PAF (paroxysmal atrial fibrillation) Status: Chronic (4) Hematoma of right knee region Status: Acute (5) Acute heart failure with preserved ejection fraction (HFpEF) Status: Acute (6) Acute respiratory failure with hypoxia Status: Acute (7) T2DM (type 2 diabetes mellitus) Status: Chronic (8) HTN (hypertension) Status: Chronic (9) Nausea and vomiting Status: Acute JEANNE HENSON DO Aug 08, 2021 05:47
[2021-08-08 08:39] VITALS: BP 120/56
[2021-08-08] MEDS: amLODIPine 5 MG (NORVASC) TAB PO SCH (08:41)
[2021-08-08] MEDS: PANTOPRAZOLE 40 MG (PROTONIX) TAB PO SCH (08:41)
[2021-08-08] MEDS: FUROSEMIDE 40 MG/4 ML INJ (LASIX) IVP SCH (08:41)
[2021-08-08] MEDS: LOSARTAN 50 MG (COZAAR) TAB PO SCH (08:41)
[2021-08-08] MEDS: APIXABAN 5 MG (ELIQUIS) TABLET PO SCH ×2 (08:41→20:24)
[2021-08-08] MEDS: SUCRALFATE 1 GM (CARAFATE) TAB PO SCH ×4 (08:42→20:23)
[2021-08-08] MEDS: polyethylene glycoL POWDER 17 GM (MIRALAX) PACK PO SCH ×2 (08:43→19:20)
--- NOTE | 2021-08-08 08:44 | Occupational Ther Daily Note ---
OT Current Status-Daily Note Subjective Pt up at EOB, agreeable to OT Tx Mental Status/Objective Patient Orientation: Person, Place, Situation ADL-Treatment Therapy Code Descriptions/Definitions Functional [place] Measure: 0=Not Assessed/NA 4=Minimal Assistance 1=Total Assistance 5=Supervision or Setup 2=Maximal Assistance 6=Modified [place] 3=Moderate Assistance 7=Complete IndependenceSCALE: Activities may be completed with or without assistive devices. 4-Nfejkizisu-ebsvmbo completes the activity by him/herself with no assistance from a helper. 5-Set-up or Clean-up Assistance-helper sets up or cleans up; patient completes activity. [place] assists only prior to or following the activity. 4-Supervision or Touching Assistance-helper provides verbal cues and/or touching/steadying and/or contact guard assistance as patient completes activity. Assistance may be provided throughout the activity or intermittently. 3-Partial/Moderate Assistance-helper does LESS THAN HALF the effort. [place] lifts, holds or supports trunk or limbs, but provides less than half the effort. 2-Substantial/Maximal Assistance-helper does MORE THAN HALF the effort. [place] lifts or holds trunk or limbs and provides more than half the effort. 4-Npemcizlg-mgnscv does ALL the effort. Patient does none of the effort to complete the activity. Or, the assistance of 2 or more helpers is required for the patient to complete the activity. If activity was not attempted, code reason: 7-Patient Refused. 9-Not Applicable-not attempted and the patient did not perform the activity before the current illness, exacerbation or injury. 10-Not Attempted due to Environmental Limitations-(lack of equipment, weather restraints, etc.). 88-Not Attempted due to Medical Conditions or Safety Concerns. Eating (QC): 6 (IND per pt report with breakfast. ) Oral Hygiene (QC): 6 (IND seated at sink.) Toileting Hygiene (QC): 6 (IND with hygiene and clothing management.) Toilet Transfer (QC): 4 (Supervision on/off BSC over toielt.) Other Treatment Pt seated on EOB, used FWW to go into bathroom and transfer onto toilet. Pt completed toileting, then stood at the sink to wash her hands. Pt sat in chair to complete grooming tasks, washing her hands and brushing her teeth indep endently. Pt used FWW to perform functional mobility to therapy gym, supervision. OT tx focused on increasing BUE strength, activity tolerance, fine motor strength and coordination. Pt placed/removed 1" pegs from foam pegboard, alternating hands. 1lb wrist weights bilaterally. Pt then removed beads from moderate resistance theraputty, 1lb wrist weights BUEs. Pt located half of the beads, then indicates she needed to have BM. Pt used FWW to return to room, completed toileting, washed hands at sink, then took medications provided by nurse. Pt returned to therapy gym, removed remaining beads with 1 verbal cue to locate last bead. OT/PT cotreat due to skill of 2 clinicians required which a rehabilitation assistant could not perform in order to focus on higher level balance tasks, decrease fall risk, and due to pt's limitations in strength and activity tolerance. OT focused on UE positioning, cues for sequencing and safety, while PT focused on LE placement, gross overall movement, and balance/mobility. Pt completed dynamic standing and reaching task using BUEs in standing while PT assisted with balance as needed. This included crossing midline and using BUEs to bat a balloon back and forth with OT. Pt took seated rest breaks as needed. Post tx, pt seated in gym with PT, all needs met. Education OT Patient Education: Correct positioning, Energy conservation, Modified ADL techniques, Progress toward Goal/Update tx plan, Purpose of tx/functional activities, Rehab process, Safety issues Teaching Recipient: Patient Teaching Methods: Discussion Response to Teaching: Verbalize Understanding OT Short Term Goals Short Term Goals Time Frame: Aug 08, 2021 Shower/bathe self: 5 Lower body dressin Putting on/taking off footwear: 5 OT Long-Term Goals Hydrogenation Still Operator Goals Time Frame: Aug 17, 2021 Eating (QC): 6 Oral Hygiene (QC): 6 Toileting Hygiene (QC): 6 Shower/Bathe Self (QC): 6 Upper Body Dressing (QC): 6 Lower Body Dressing (QC): 6 On/Off Footwear (QC): 6 Additional Goals: 1-Demonstrate ADL Tasks, 2-Verbalize Understanding, 3- ImproveStrength/Sharad 1=Demonstrate adherence to instructed precautions during ADL tasks. 2=Patient will verbalize/demonstrate understanding of assistive devices/modifications for ADL. 3=Patient will improve strength/tolerance for activity to enable patient to perform ADL's. OT Education/Plan Problem List/Assessment Assessment: Decreased Activ Tolerance, Decreased Safety Aware, Decreased UE Strength, Impaired I ADL's Discharge Recommendations Plan/Recommendations: Continue POC Treatment Plan/Plan of Care Patient would benefit from OT for education, treatment and training to promote independence in ADL's, mobility, safety and/or upper extremity function for ADL's. Plan of Care: ADL Retraining, Functional Mobility, Group Exercise/Act as Ind, UE Funct Exercise/Act Treatment Duration: Aug 17, 2021 Frequency: At least 5 of 7 days/Wk (IRF) Estimated Hrs Per Day: .25 hour per day Rehab Potential: Fair Time/GCodes Start Time: 08:00 Stop Time: 09:15 Total Time Billed (hr/min): 75 Billed Treatment Time [id number] OT tx, [id number] OT/PT cotreat 1, ADL 2 (25'), FA 4 (65') RYAN DUNNE OT Aug 08, 2021 08:44
[2021-08-08] MEDS: KCL 20 MEQ TAB (K-DUR) PO SCH (08:47)
--- NOTE | 2021-08-08 09:36 | Progress Note ---
Standard Progress Note Progress Notes/Assess & Plan Date Seen by a Provider: Aug 08, 2021 Time Seen by a Provider: 08:40 Progress/Assessment & Plan feeling better Vital Signs Date Time Temp Pulse Resp B/P (MAP) Pulse Ox O2 Delivery O2 Flow Rate FiO2 08/07/21 21:00 Room Air 08/07/21 20:00 37.0 72 18 119/69 (86) 94 R knee without drainage. flexion to 90. improved R knee hematoma continue PT/OT Focused Exam Time of Focused Exam: 06:30 GEGE ARCE MD Aug 08, 2021 09:36
--- NOTE | 2021-08-08 10:10 | Physical Therapy Daily Note ---
PT Daily Note-Current Subjective Pt. pleasant and agrees to Rx. min to no c/o pain in right knee Pain Location: No Pain Reported Mental Status Patient Orientation: Normal For Age hard of hearing Transfers SCALE: Activities may be completed with or without assistive devices. 9-Izlaogotle-hostihb completes the activity by him/herself with no assistance from a helper. 5-Set-up or Clean-up Assistance-helper sets up or cleans up; patient completes activity. [place] assists only prior to or following the activity. 4-Supervision or Touching Assistance-helper provides verbal cues and/or touching/steadying and/or contact guard assistance as patient completes activity. Assistance may be provided throughout the activity or intermittently. 3-Partial/Moderate Assistance-helper does LESS THAN HALF the effort. [place] lifts, holds or supports trunk or limbs, but provides less than half the effort. 2-Substantial/Maximal Assistance-helper does MORE THAN HALF the effort. [place] lifts or holds trunk or limbs and provides more than half the effort. 1-Rvgaiafbn-jgbqfo does ALL the effort. Patient does none of the effort to complete the activity. Or, the assistance of 2 or more helpers is required for the patient to complete the activity. If activity was not attempted, code reason: 7-Patient Refused. 9-Not Applicable-not attempted and the patient did not perform the activity before the current illness, exacerbation or injury. 10-Not Attempted due to Environmental Limitations-(lack of equipment, weather restraints, etc.). 88-Not Attempted due to Medical Conditions or Safety Concerns. Roll Left & Right (QC): 6 Sit to Lying (QC): 6 Lying to Sitting/Side of Bed(Q: 6 Sit to Stand (QC): 6 Chair/Frv-wi-Gofkq Xfer(QC): 6 Toilet Transfer (QC): 6 Car Transfer (QC): 6 Gait Training Does the Patient Walk?: Yes Walk 10 feet (QC): 6 Walk 50 ft with 2 Turns(QC): 6 Walk 150 ft (QC): 6 Walking 10ft/uneven surface-QC: 6 Gait Persons Needed: 0 Gait Assistive Device: FWW Stair Training Stair Training: Handrails/: 2 handrails #of Steps: 8 1 Step (curb) (QC): 4 4 Steps (QC): 4 12 Steps (QC): 88 Stairs: Pattern: Step to fatigues with >8 steps Balance Picking up an Object (QC): 5 Exercises Supine Ex: Ankle pumps, Quad Set, Rolling, Glut sets, Heel Slides, Short Arc Quads, Scooting, Straight leg raise, Hip abd/add Supine Reps: 15 Seated Therapy Exercises: Ankle pumps, Sit to stand, Long arc quads Seated Reps: 15 Standing: Weight shifts Treatments standing wt shift left to right and standing balloon batting with OT no LOB Assessment Current Status: Good Progress AROM 20 deg to 90 deg PT Short Term Goals Short Term Goals Time Frame: Aug 10, 2021 Roll Left & Right: 6 Sit to lyin Lying to sitting on side of be: 6 Sit to stand: 4 (SBA) Chair/ztz-ps-ghbqs transfer: 4 (SBA) Walk 10 feet: 4 (SBA) Walk 50 feet with two turns: 4 (SBA) Walk 150 feet: 4 (SBA) PT Usp Goals Oyster Grower Goals PT Usp Goals Time Frame: Aug 24, 2021 Roll Left & Right (QC): 6 Sit to Lying (QC): 6 Lying-Sitting on Side/Bed(QC): 6 Sit to Stand (QC): 6 Chair/Elg-fi-Kteew Xfer(QC): 6 Toilet Transfer (QC): 6 Car Transfer (QC): 6 Does the Patient Walk: Yes Walk 10 feet (QC): 6 Walk 50ft with 2 Turns (QC): 6 Walk 150 ft (QC): 6 Walking 10ft on Uneven Surface: 6 1 Step (curb) (QC): 4 4 Steps (QC): 4 12 Steps (QC): 88 Picking up an Object (QC): 6 Wheel 50 feet with 2 turns (QC: 9 Wheel 150 feet: 9 PT Plan Treatment/Plan Treatment Plan: Continue Plan of Care Treatment Plan: Bed Mobility, Education, Functional Activity Sharad, Functional Strength, Group Therapy, Gait, Safety, Therapeutic Exercise, Transfers Treatment Duration: Aug 24, 2021 Frequency: At least 5 of 7 days/Wk (IRF) Estimated Hrs Per Day: 1.5 hours per day Patient and/or Family Agrees t: Yes Safety Risks/Education Patient Education: Gait Training, Transfer Techniques, Steps, Correct Positioning, Disease Process, Safety Issues Teaching Recipient: Patient Teaching Methods: Demonstration, Discussion Response to Teaching: Verbalize Understanding, Return Demonstration, Reinforcement Needed Time/GCodes Time In: 900 Time Out: 1000 Total Billed Treatment Time: 60 Total Billed Treatment 1,GT20m,FA15m,EX25m ZENIA HAQUE TINT LAYER Aug 08, 2021 10:10
--- NOTE | 2021-08-08 10:30 | Speech Therapy Daily Note ---
Speech Daily Progress Note Subjective Date Seen by Provider: Aug 08, 2021 Time Seen by Provider: 00:30 Patient was resting in bed following her PT and OT sessions. She stated she was ready to take a nap. Objective Patient completed a series of q/a related to self and her daily needs at 90% with 10% cues. Assessment Assessment Current Status: Good Progress Treatment Plan Continue Plan of Care Speech Short Term Goals Short Term Goals Short Term Goals 1) The patient will complete memory activities related to her daily routine at 80% or greater with minimal cues. 2) The patient will complete safety awareness activities related to her daily routine at 80% or greater with minimal cues. 3) The patient will complete problem solving activities related to her daily routine at 80% or greater with minimal cues. Speech-Plan Patient/Family Goals Patient/Family Goals: The patient plans on returning to her home where she lives with her . Treatment Plan Speech Therapy Treatment Plan: Continue Plan of Care Treatment Duration: Aug 17, 2021 Frequency: 4 times per week (Patient will receive skilled ST 4-5x per week) Estimated Hrs Per Day: .5 hour per day Rehab Potential: Fair Barriers to Learning: Patient's current health status, cognitive deficits Pt/Family Agrees to Plan: Yes Safety Risks/Education Teaching Recipient: Patient Teaching Methods: Demonstration, Discussion Response to Teaching: Verbalize Understanding, Return Demonstration Education Topics Provided: Continued safety and communication of wants/needs Time Speech Therapy Time In: 10:00 Speech Therapy Time Out: 10:30 Total Billed Time: 30 Billed Treatment Time 1, JOHN Fleming Aug 08, 2021 10:30
--- NOTE | 2021-08-08 10:32 | Progress Note - Cardiology ---
Cardiology SOAP Progress Note Subjective: Lying in bed States she feels good Feels PT is going well No c/o CP, SOB or palpitations Objective: I&O/Vital Signs 08/08/21 08/08/21 08/09/21 20:06 20:10 07:11 Temp 36.9 36.7 Pulse 66 67 Resp 18 16 B/P (MAP) 143/64 (90) 164/65 (98) Pulse Ox 92 93 O2 Delivery Room Air Room Air Room Air Constitutional: AAO x 3, well-developed, other Respiratory: No accessory muscle use; other (Good bilateral air entry) Cardiovascular: regular rate-rhythm, S1 and S2, systolic murmur (Soft [place] at card base) Gastrointestional: No tender; soft; No guarding, No rebound; audible bowel sounds Extremities: No clubbing, No cyanosis, No significant edema Neurologic/Psychiatric: oriented x 3, other (moves all limbs equally) Skin: normal color, warm/dry A/P: Assessment: Hosp with progressive dyspnea in late Jul / early Aug 2021 due to acute on chronic diastolic CHF (HFpEF) - Echo of 07/11/19: LVEF 60-65%, mild MR, mod AI, mild to mod TR, grade 2 mccullough dysfunction, RVSP 47 mmHg - MPI of Jul 13, 2019 showed no evidence of ischemia/infarction; LVEF 67% - Echo of 08/02/21: LVEF 50-55%, mild AI - low prob PE on [place] lung scan on 08/02/21 H/O RTKA by Dr. Morrell on Jul 04, 2021 - subsequent cellulitis - being treated as an out pt PAF - rate controlled; has chronically been treated with flecainide (managed by Dr. [facility] at [facility]) - OAC with Eliqus - low dose d/t chronic anemia with GIB requiring transfusions in the past as advised by hematology/oncology services (Dr. Payne). Currently on full dose and tolerating well Nausea of undetermined etiology H/o anemia of undetermined etiology which has required multiple transfusions in the past (she reports chronic anemia for which she has had multiple eval in the past with unknown cause). Previous stool positive for occult blood during previous admission of Aug 2019 Non-Hodgkin B-cell lymphoma - follows with Dr. Payne of oncology services Plan: * Continue current regimen * Monitor labs DAVINA TRONCOSO Aug 08, 2021 10:32
[2021-08-08] MEDS: SENNA W/DOCUSATE (SENOKOT S) TABLET PO SCH ×2 (10:42→20:08)
[2021-08-08] MEDS: DOCUSATE SODIUM 100 MG (COLACE) CAP PO SCH ×2 (10:42→20:08)
[2021-08-08] MEDS: SENNOSIDES 8.6 MG (SENOKOT) TAB PO SCH ×2 (10:43→20:08)
[2021-08-08] MEDS: VANCOMYCIN 1 GM/NS 250 ML IVPB IV SCH ×2 (10:44)
--- NOTE | 2021-08-08 14:08 | Physical Therapy Daily Note ---
PT Daily Note-Current Subjective Pt agreeable. Pain rated 7/10 (R) knee. Nursing notified. Mental Status Patient Orientation: Person, Place, Situation Transfers SCALE: Activities may be completed with or without assistive devices. 2-Rtqzxydmyo-ydxsyow completes the activity by him/herself with no assistance from a helper. 5-Set-up or Clean-up Assistance-helper sets up or cleans up; patient completes activity. [place] assists only prior to or following the activity. 4-Supervision or Touching Assistance-helper provides verbal cues and/or touching/steadying and/or contact guard assistance as patient completes activity. Assistance may be provided throughout the activity or intermittently. 3-Partial/Moderate Assistance-helper does LESS THAN HALF the effort. [place] lifts, holds or supports trunk or limbs, but provides less than half the effort. 2-Substantial/Maximal Assistance-helper does MORE THAN HALF the effort. [place] lifts or holds trunk or limbs and provides more than half the effort. 8-Ugeapewie-gltowc does ALL the effort. Patient does none of the effort to complete the activity. Or, the assistance of 2 or more helpers is required for the patient to complete the activity. If activity was not attempted, code reason: 7-Patient Refused. 9-Not Applicable-not attempted and the patient did not perform the activity before the current illness, exacerbation or injury. 10-Not Attempted due to Environmental Limitations-(lack of equipment, weather restraints, etc.). 88-Not Attempted due to Medical Conditions or Safety Concerns. Transfers all levels mod (I) Gait Training Walking 10ft/uneven surface-QC: 4 Gait Assistive Device: FWW Pt amb with FWW 1 x 125ft, 1 x 200ft, SBA Stair Training 1 Step (curb) (QC): 4 Treatments Pt performed LAQ x 20 (R) LE Assessment Current Status: Good Progress Pt back to bed with call light and all needs met. Pt progressing appropriately. PT Short Term Goals Short Term Goals Time Frame: Aug 10, 2021 Roll Left & Right: 6 Sit to lyin Lying to sitting on side of be: 6 Sit to stand: 4 (SBA) Chair/etm-mp-igsdx transfer: 4 (SBA) Walk 10 feet: 4 (SBA) Walk 50 feet with two turns: 4 (SBA) Walk 150 feet: 4 (SBA) Walking 10ft on uneven surface: 4 1 step (curb): 4 PT Mcfp Goals [employer] Goals PT Mcfp Goals Time Frame: Aug 24, 2021 Roll Left & Right (QC): 6 Sit to Lying (QC): 6 Lying-Sitting on Side/Bed(QC): 6 Sit to Stand (QC): 6 Chair/Nwg-pe-Bmxff Xfer(QC): 6 Toilet Transfer (QC): 6 Car Transfer (QC): 6 Does the Patient Walk: Yes Walk 10 feet (QC): 6 Walk 50ft with 2 Turns (QC): 6 Walk 150 ft (QC): 6 Walking 10ft on Uneven Surface: 6 1 Step (curb) (QC): 4 4 Steps (QC): 4 12 Steps (QC): 88 Picking up an Object (QC): 6 Wheel 50 feet with 2 turns (QC: 9 Wheel 150 feet: 9 PT Plan Treatment/Plan Treatment Plan: Continue Plan of Care Treatment Plan: Bed Mobility, Education, Functional Activity Sharad, Functional Strength, Group Therapy, Gait, Safety, Therapeutic Exercise, Transfers Treatment Duration: Aug 24, 2021 Frequency: At least 5 of 7 days/Wk (IRF) Estimated Hrs Per Day: 1.5 hours per day Patient and/or Family Agrees t: Yes Time/GCodes Time In: 1340 Time Out: 1355 Total Billed Treatment Time: 15 Total Billed Treatment 1, FA 15' NADIA NICKERSON CPTA Aug 08, 2021 14:08
[2021-08-08 20:06] VITALS: BP 143/64
[2021-08-08] MEDS: MIRTAZAPINE 15 MG (REMERON) TAB PO SCH (20:24)
[2021-08-09] MEDS: KCL 20 MEQ TAB (K-DUR) PO SCH (06:32)
[2021-08-09] MEDS: SUCRALFATE 1 GM (CARAFATE) TAB PO SCH ×2 (06:32→10:13)
[2021-08-09 07:11] VITALS: BP 164/65
[2021-08-09] MEDS ORDERED: FURO40TA4 PO (08:00)
[2021-08-09] MEDS ORDERED: POTA-169 PO (08:00)
[2021-08-09] MEDS ORDERED: APIX5TAB PO (08:00)
[2021-08-09] MEDS ORDERED: CARV12.53 PO (08:00)
[2021-08-09] MEDS: amLODIPine 5 MG (NORVASC) TAB PO SCH (08:03)
[2021-08-09] MEDS: APIXABAN 5 MG (ELIQUIS) TABLET PO SCH (08:03)
[2021-08-09] MEDS: FUROSEMIDE 40 MG/4 ML INJ (LASIX) IVP SCH (08:03)
[2021-08-09] MEDS: LOSARTAN 50 MG (COZAAR) TAB PO SCH (08:03)
[2021-08-09] MEDS: PANTOPRAZOLE 40 MG (PROTONIX) TAB PO SCH (08:04)
[2021-08-09] MEDS: polyethylene glycoL POWDER 17 GM (MIRALAX) PACK PO SCH (08:06)
[2021-08-09] MEDS: SENNOSIDES 8.6 MG (SENOKOT) TAB PO SCH ×2 (08:06→10:31)
[2021-08-09] MEDS: SENNA W/DOCUSATE (SENOKOT S) TABLET PO SCH (08:18)
[2021-08-09] MEDS: DOCUSATE SODIUM 100 MG (COLACE) CAP PO SCH (08:21)
--- NOTE | 2021-08-09 08:28 | Therapy Team Discharge Summary ---
Therapy Discharge Summary Discharge Recommendations Date of Discharge Occupational Therapy Decreased Activ Tolerance, Decreased Safety Aware, Decreased UE Strength, Impaired I ADL's Speech-Language Pathology Patient was admitted to the ARU for the second time following her knee replacement. She had developed an infection and was experiencing great pain. She was given the SLUMS with a score indicating deficits in cognition. She received therapy with focus on improving deficits in order for her to return home safely. She is discharging to her home where she lives with her . PT Care Home Goals Roll Press Operator Goals PT Roll Press Operator Goals Time Frame: Aug 24, 2021 Roll Left to Right (QC): 6 Sit to Lying (QC): 6 Lying-Sitting on Side/Bed(QC): 6 Sit to Stand (QC): 6 Chair/Aiw-pj-Yzsmg Xfer(QC): 6 Car Transfer (QC): 6 Does the Patient Walk: Yes Walk 10 feet (QC): 6 Walk 10ft-Uneven Surface(QC): 6 Walk 50ft with 2 Turns (QC): 6 Walk 150 ft (QC): 6 Wheel 50 feet with 2 turns (QC: 9 1 Step (curb) (QC): 4 4 Steps (QC): 4 12 Steps (QC): 88 Picking up an Object (QC): 6 OT Roll Press Operator Goals Care Home Goals Time Frame: Aug 17, 2021 Eating (QC): 6 Oral Hygiene (QC): 6 Shower/Bathe Self (QC): 6 Upper Body Dressing (QC): 6 Lower Body Dressing (QC): 6 On/Off Footwear (QC): 6 Toileting Hygiene (QC): 6 Toilet/Commode Transfer (QC): 6 Additional Goals: 1-Demonstrate ADL Tasks, 2-Verbalize Understanding, 3- ImproveStrength/Sharad 1=Demonstrate adherence to instructed precautions during ADL tasks. 2=Patient will verbalize/demonstrate understanding of assistive devices/modifications for ADL. 3=Patient will improve strength/tolerance for activity to enable patient to perform ADL's. JOHN HEREDIA Aug 09, 2021 08:28
[2021-08-09] MEDS ORDERED: TROUGH ORDER-PHARMACY XX ONE (10:00)
[2021-08-09] MEDS: VANCOMYCIN 1 GM/NS 250 ML IVPB IV SCH ×2 (10:05)
[2021-08-09] MEDS ORDERED: OXC5T PO (10:41)
--- NOTE | 2021-08-09 10:43 | Discharge Summary ---
Diagnosis/Chief Complaint Date of Admission Aug 03, 2021 at 10:41 Date of Discharge Discharge Date: Aug 09, 2021 Discharge Diagnosis Assessment: s/p acute CHF Generalized weakness and debility Recent right knee replacement requiring IRF services complicated with hematoma recently Fall risk History of lymphoma Paroxysmal atrial fibrillation History of recurrent GI bleeds h/o constipation Diabetes Hypertension Mild cognitive decline h/o severe iron deficiency requiring transfusion and iron infusions Diabetes Plan: Appreciate cardiology Inpatient rehab protocol Pain control Increase nutrition 08/04/2021: Nausea and vomiting management Consult Dr. Weinstein Proton pump inhibitor and Carafate Remeron and Celexa restart 08/05/2021: Supportive care Appreciate Dr. Weinstein 08/06/21: Advance diet per surgery recs Dr Morrell consult 08/07/2021: Maintain stomach medication Supportive care 08/08/21: DC tomorrow Fall risk (1) Debility Status: Acute (2) DLBCL (diffuse large B cell lymphoma) Status: Chronic (3) PAF (paroxysmal atrial fibrillation) Status: Chronic (4) Hematoma of right knee region Status: Acute (5) Acute heart failure with preserved ejection fraction (HFpEF) Status: Acute (6) Acute respiratory failure with hypoxia Status: Acute (7) T2DM (type 2 diabetes mellitus) Status: Chronic (8) HTN (hypertension) Status: Chronic (9) Nausea and vomiting Status: Acute Discharge Summary Discharge Physical Examination Allergies: Coded Allergies: Cephalexin Monohydrate (Verified Allergy, Unknown, has tolerated Ancef, 08/03/19) Iodinated Contrast Media (Verified Allergy, Unknown, 10/29/19) Penicillins (Verified Allergy, Unknown, Has tolerated Ancef, 08/03/19) adhesive tape (Verified Allergy, Unknown, 08/04/21) ciprofloxacin (Verified Allergy, Unknown, 02/25/21) iodine (Verified Allergy, Unknown, 07/08/19) linaclotide (Verified Allergy, Unknown, 07/28/19) lubiprostone (Verified Allergy, Unknown, 07/28/19) prednisolone (Verified Allergy, Unknown, 02/25/21) sulfamethoxazole (Verified Allergy, Unknown, 02/25/21) trimethoprim (Verified Allergy, Unknown, 02/25/21) venlafaxine HCl (Verified Allergy, Unknown, 07/08/19) Vitals & I&Os Vital Signs Date Time Temp Pulse Resp B/P (MAP) Pulse Ox O2 Delivery O2 Flow Rate FiO2 08/09/21 11:30 36.7 67 16 164/65 93 Room Air 08/06/21 09:13 2.00 General Appearance: Alert, Oriented X3, Cooperative Respiratory: Clear to Auscultation Cardiovascular: Regular Rate Hospital Course Was the Problem List Reviewed?: Yes Hospital course: Patient had a 7-day hospital course after she was admitted from fourth floor for acute congestive heart failure episode requiring cardiology consultation and Dr. Morrell for management of hematoma of the recent knee replacement she had. Vancomycin was initiated empirically. Labs remained stable. Cardiology changed a lot of medications with good results. Patient improved with therapy and medication changes and was deemed stable for discharge to resume [facility] health Labs (last 24 hrs) Laboratory Tests 08/04/21 06:04: White Blood Count 5.6, Red Blood Count 3.51L, Hemoglobin 10.2L, Hematocrit 33L, Mean Corpuscular Volume 94, Mean Corpuscular Hemoglobin 29, Mean Corpuscular Hemoglobin Concent 31L, Red Cell Distribution Width 19.8H, Platelet Count 332, Mean Platelet Volume 8.9L, Immature Granulocyte % (Auto) 0, Neutrophils (%) (Auto) 65, Lymphocytes (%) (Auto) 15, Monocytes (%) (Auto) 14H, Eosinophils (%) (Auto) 5, Basophils (%) (Auto) 1, Neutrophils # (Auto) 3.6, Lymphocytes # (Auto) 0.8L, Monocytes # (Auto) 0.8, Eosinophils # (Auto) 0.3, Basophils # (Auto) 0.1, Immature Granulocyte # (Auto) 0.0, Sodium Level 138, Potassium Level 3.6, Chloride Level 99, Carbon Dioxide Level 28, Anion Gap 11, Blood Urea Nitrogen 6L , Creatinine 0.73, Estimat Glomerular Filtration Rate 77, BUN/Creatinine Ratio 8, Glucose Level 113H, Calcium Level 8.3L, Corrected Calcium 9.2, Total Bilirubin 0.6, Aspartate Amino Transf (AST/SGOT) 18, Alanine Aminotransferase (ALT/SGPT) 10, Alkaline Phosphatase 191H, Total Protein 6.0L, Albumin 2.9L 08/06/21 05:34: White Blood Count 4.7, Red Blood Count 3.38L, Hemoglobin 9.8L, Hematocrit 32L, Mean Corpuscular Volume 94, Mean Corpuscular Hemoglobin 29, Mean Corpuscular Hemoglobin Concent 31L, Red Cell Distribution Width 19.4H, Platelet Count 295, Mean Platelet Volume 9.1, Immature Granulocyte % (Auto) 0, Neutrophils (%) (Auto) 58, Lymphocytes (%) (Auto) 17, Monocytes (%) (Auto) 19H, Eosinophils (%) (Auto) 4, Basophils (%) (Auto) 2, Neutrophils # (Auto) 2.7, Lymphocytes # (Auto) 0.8L, Monocytes # (Auto) 0.9, Eosinophils # (Auto) 0.2, Basophils # (Auto) 0.1, Immature Granulocyte # (Auto) 0.0, Sodium Level 138, Potassium Level 3.4L, Chloride Level 100, Carbon Dioxide Level 28, Anion Gap 10, Blood Urea Nitrogen 5L, Creatinine 0.73, Estimat Glomerular Filtration Rate 77, BUN/Creatinine Ratio 7, Glucose Level 133H, Calcium Level 8.3L, Corrected Calcium 9.3, Total Bilirubin 0.5, Aspartate Amino Transf (AST/SGOT) 15, Alanine Aminotransferase (ALT/SGPT) 10, Alkaline Phosphatase 175H, Total Protein 5.8L, Albumin 2.8L, Neutrophils % (Manual) 65, Lymphocytes % (Manual) 15, Monocytes % (Manual) 16, Eosinophils % (Manual) 3, Band Neutrophils 4 08/09/21 09:03: Vancomycin Level Trough 9.4L Pending Labs Laboratory Tests 08/04/21 06:04: White Blood Count 5.6, Red Blood Count 3.51, Hemoglobin 10.2, Hematocrit 33, Mean Corpuscular Volume 94, Mean Corpuscular Hemoglobin 29, Mean Corpuscular Hemoglobin Concent 31, Red Cell Distribution Width 19.8, Platelet Count 332, Mean Platelet Volume 8.9, Immature Granulocyte % (Auto) 0, Neutrophils (%) (Auto) 65, Lymphocytes (%) (Auto) 15, Monocytes (%) (Auto) 14, Eosinophils (%) (Auto) 5, Basophils (%) (Auto) 1, Neutrophils # (Auto) 3.6, Lymphocytes # (Auto) 0.8, Monocytes # (Auto) 0.8, Eosinophils # (Auto) 0.3, Basophils # (Auto) 0.1, Immature Granulocyte # (Auto) 0.0, Sodium Level 138, Potassium Level 3.6, Chloride Level 99, Carbon Dioxide Level 28, Anion Gap 11, Blood Urea Nitrogen 6, Creatinine 0.73, Estimat Glomerular Filtration Rate 77, BUN/Creatinine Ratio 8, Glucose Level 113, Calcium Level 8.3, Corrected Calcium 9.2, Total Bilirubin 0.6, Aspartate Amino Transf (AST/SGOT) 18, Alanine Aminotransferase (ALT/SGPT) 10, Alkaline Phosphatase 191, Total Protein 6.0, Albumin 2.9 08/06/21 05:34: White Blood Count 4.7, Red Blood Count 3.38, Hemoglobin 9.8, Hematocrit 32, Mean Corpuscular Volume 94, Mean Corpuscular Hemoglobin 29, Mean Corpuscular Hemoglobin Concent 31, Red Cell Distribution Width 19.4, Platelet Count 295, Mean Platelet Volume 9.1, Immature Granulocyte % (Auto) 0, Neutrophils (%) (A uto) 58, Lymphocytes (%) (Auto) 17, Monocytes (%) (Auto) 19, Eosinophils (%) (Auto) 4, Basophils (%) (Auto) 2, Neutrophils # (Auto) 2.7, Lymphocytes # (Auto) 0.8, Monocytes # (Auto) 0.9, Eosinophils # (Auto) 0.2, Basophils # (Auto) 0.1, Immature Granulocyte # (Auto) 0.0, Sodium Level 138, Potassium Level 3.4, Chloride Level 100, Carbon Dioxide Level 28, Anion Gap 10, Blood Urea Nitrogen 5, Creatinine 0.73, Estimat Glomerular Filtration Rate 77, BUN/Creatinine Ratio 7, Glucose Level 133, Calcium Level 8.3, Corrected Calcium 9.3, Total Bilirubin 0.5, Aspartate Amino Transf (AST/SGOT) 15, Alanine Aminotransferase (ALT/SGPT) 10, Alkaline Phosphatase 175, Total Protein 5.8, Albumin 2.8, Neutrophils % (Manual) 65, Lymphocytes % (Manual) 15, Monocytes % (Manual) 16, Eosinophils % (Manual) 3, Band Neutrophils 4 08/09/21 09:03: Vancomycin Level Trough 9.4 Discharge Home Medications: Active Scripts Active Oxyir Tablet (Oxycodone HCl) 5 Mg Tab 5-10 Mg PO Q4H PRN Klor-Con M20 (Potassium Chloride) 20 Meq Tab.er.prt 20 Meq PO DAILY@0700 Furosemide 40 Mg Tablet 40 Mg PO DAILY Carvedilol 12.5 Mg Tablet 12.5 Mg PO BID Eliquis (Apixaban) 5 Mg Tablet 5 Mg PO BID Reported Docusate Sodium 100 Mg Capsule 100 Mg PO BID PRN Mirtazapine 15 Mg Tablet 15 Mg PO HS Vitamin D3 (Cholecalciferol (Vitamin D3)) 50 Mcg Tablet 100 Mcg PO DAILY Metformin HCl ER (Metformin HCl) 500 Mg Tab.er.24h 500 Mg PO 1700 W/MEAL Losartan Potassium 50 Mg Tablet 50 Mg PO 1700 Aspirin EC (Aspirin) 81 Mg Tablet.dr 81 Mg PO DAILY Probiotic (Lactobacillus Combo No.10) 1 Each Capsule 1 Each PO DAILY Refresh Tears (Carboxymethylcellulose Sodium) 15 Ml Drops 2 Drops OU PRN PRN Carvedilol 6.25 Mg Tablet 6.25 Mg PO BID WITH MEALS Citalopram HBr (Citalopram Hydrobromide) 10 Mg Tablet 10 Mg PO BID WITH MEALS Famotidine 20 Mg Tablet 20 Mg PO BID WITH MEALS Preservision Areds Tablet (Vit A/Vit C/Vit E/Zinc/Copper) 1 Each Tablet 2 Tab PO DAILY Premarin (Estrogens Conjugated) 0.45 Mg Tab 0.45 Mg PO DAILY Atorvastatin Calcium 20 Mg Tablet 20 Mg PO 1700 Pantoprazole Sodium 40 Mg Tablet.dr 40 Mg PO DAILY Instructions to patient/family Please see electronic discharge instructions given to patient. Diagnosis/Problems Diagnosis/Problems (1) Debility Status: Acute (2) DLBCL (diffuse large B cell lymphoma) Status: Chronic (3) PAF (paroxysmal atrial fibrillation) Status: Chronic (4) Hematoma of right knee region Status: Acute (5) Acute heart failure with preserved ejection fraction (HFpEF) Status: Acute (6) Acute respiratory failure with hypoxia Status: Acute (7) T2DM (type 2 diabetes mellitus) Status: Chronic (8) HTN (hypertension) Status: Chronic (9) Nausea and vomiting Status: Acute JEANNE HENSON DO Aug 09, 2021 10:43
--- NOTE | 2021-08-09 10:43 | D/C HH Face to Face Order ---
D/C Face to Face Orders Reconcile Patient Problems Problems Reviewed?: Yes Instructions for Patient [facility] Patient Instructions/FollowUp: PCP 1 week Physician to follow Patient: PCP Discharge Diet for Home: ADA Diet Patient Problems: CHF Patient Data-Allergies,Ht & Wt Patient Allergies: Coded Allergies: Cephalexin Monohydrate (Verified Allergy, Unknown, has tolerated Ancef, 08/03/19) Iodinated Contrast Media (Verified Allergy, Unknown, 10/29/19) Penicillins (Verified Allergy, Unknown, Has tolerated Ancef, 08/03/19) adhesive tape (Verified Allergy, Unknown, 08/04/21) ciprofloxacin (Verified Allergy, Unknown, 02/25/21) iodine (Verified Allergy, Unknown, 07/08/19) linaclotide (Verified Allergy, Unknown, 07/28/19) lubiprostone (Verified Allergy, Unknown, 07/28/19) prednisolone (Verified Allergy, Unknown, 02/25/21) sulfamethoxazole (Verified Allergy, Unknown, 02/25/21) trimethoprim (Verified Allergy, Unknown, 02/25/21) venlafaxine HCl (Verified Allergy, Unknown, 07/08/19) Home Health Need/Face to Face Date of Face to Face: Aug 09, 2021 Clinical Findings: Generalized weakness and fatigue, Instability, Muscle weakness, Pain with ambulation, Unsteady gait I have seen Pt [id number]: Yes Discharged To: Home Diagnosis/Conditions: CHF Patient is Homebound due to: Richard fall risk due to instabilty, Muscle weakness, Pain w/ambulation Homebound Status Due to the above stated illness, injury or surgical procedure (medical condition or diagnosis) and associated clinical findings, the patient is homebound because of his/her inability to leave home except with aid of a supportive device and/or person AND leaving the home requires a considerable and taxing effort or is medically contraindicated. Pt req the following assistanc: Walker Home Health Nursing Orders Home Health Services Order: Nursing Services, School Services Officer-Evaluate & Treat, Physical Therapy-Evaluate & Treat Certify Stmt I certify that this patient is under my care and that I, a nurse practitioner or a physician; a greenhouse assistant working with me, had a face to face encounter that - meets the physician face to face encounter requirements with this patient as dated. JEANNE HENSON DO Aug 09, 2021 10:43
[2021-08-09 11:30] VITALS: BP 164/65
--- NOTE | 2021-08-09 11:41 | Therapy Team Discharge Summary ---
Therapy Discharge Summary Discharge Recommendations Date of Discharge Physical Therapy Patient came to rehab with debility. Upon evaluation patient performed rolling with independence, supine <-> sit SBA, sit <-> stand and transfers CGA, car transfer CGA, ambulated 100' with a rolling walker with CGA (including 50' with at least 2 turns of 90 degrees and 10' over an uneven surface), went up and down 1 step using a rolling walker with CGA , and picked up an object from the floor with CGA. Patient has been performing bed mobility and transfer training, balance and endurance training, functional strengthening, stair training, gait training, and education. Patient has made good progress and has met all of her superintendent container terminal goals except for picking up an object from the floor. Now, patient performs bed mobility and transfers with independence, independent with car transfer, ambulates over 150' with a rolling walker with independence (including 50' with at least 2 turns of 90 degrees and 10' over an uneven surface), can go up and down 8 steps using 2 handrails with CGA/SBA, and can pick pulling machine operator an object from the floor with setup. Patient is discharging from this facility today and will be discharged from PT at this time. Occupational Therapy Decreased Activ Tolerance, Decreased Safety Aware, Decreased UE Strength, Impaired I ADL's PT Supervisor Wound Goals Supervisor Wound Goals PT Supervisor Wound Goals Time Frame: Aug 24, 2021 Roll Left to Right (QC): 6 Sit to Lying (QC): 6 Lying-Sitting on Side/Bed(QC): 6 Sit to Stand (QC): 6 Chair/Uug-ie-Tbxzk Xfer(QC): 6 Car Transfer (QC): 6 Does the Patient Walk: Yes Walk 10 feet (QC): 6 Walk 10ft-Uneven Surface(QC): 6 Walk 50ft with 2 Turns (QC): 6 Walk 150 ft (QC): 6 Wheel 50 feet with 2 turns (QC: 9 1 Step (curb) (QC): 4 4 Steps (QC): 4 12 Steps (QC): 88 Picking up an Object (QC): 6 OT Usp Goals Usp Goals Time Frame: Aug 17, 2021 Eating (QC): 6 Oral Hygiene (QC): 6 Shower/Bathe Self (QC): 6 Upper Body Dressing (QC): 6 Lower Body Dressing (QC): 6 On/Off Footwear (QC): 6 Toileting Hygiene (QC): 6 Toilet/Commode Transfer (QC): 6 Additional Goals: 1-Demonstrate ADL Tasks, 2-Verbalize Understanding, 3- ImproveStrength/Sharad 1=Demonstrate adherence to instructed precautions during ADL tasks. 2=Patient will verbalize/demonstrate understanding of assistive devices/modifications for ADL. 3=Patient will improve strength/tolerance for activity to enable patient to perform ADL's. RENEE WHITE PT Aug 09, 2021 11:41
--- NOTE | 2021-08-09 14:10 | Therapy Team Discharge Summary ---
Therapy Discharge Summary Discharge Recommendations Date of Discharge Occupational Therapy Pt admitted to ARU with debility. At OF, pt had assistance with ADLs including footwear, LE dressing and bathing. Upon initial evaluation, pt required set up assistance with eating, SBA oral care, SBA showering, set up upper body dressing, SBA lower body dressing, supervision with footwear, and SBA toileting. OT tx focused on increasing BUE strength and activity tolerance, increasing independence with ADLs and functional mobility. At discharge, pt was independent wtih eating, oral care, upper body dressing and toileting, supervision with showering and lower body dressing, and set up with footwear. Pt made progress towards goals, goals addressed but not al goals attained. Pt discharged from facility, d/c from OT. Decreased Activ Tolerance, Decreased Safety Aware, Decreased UE Strength, Impaired I ADL's PT Digital Composer Goals Digital Composer Goals PT Long-Term Goals Time Frame: Aug 24, 2021 Roll Left to Right (QC): 6 Sit to Lying (QC): 6 Lying-Sitting on Side/Bed(QC): 6 Sit to Stand (QC): 6 Chair/Zpr-bt-Xzshk Xfer(QC): 6 Car Transfer (QC): 6 Does the Patient Walk: Yes Walk 10 feet (QC): 6 Walk 10ft-Uneven Surface(QC): 6 Walk 50ft with 2 Turns (QC): 6 Walk 150 ft (QC): 6 Wheel 50 feet with 2 turns (QC: 9 1 Step (curb) (QC): 4 4 Steps (QC): 4 12 Steps (QC): 88 Picking up an Object (QC): 6 OT Long-Term Goals Digital Composer Goals Time Frame: Aug 17, 2021 Eating (QC): 6 (met) Oral Hygiene (QC): 6 (met) Shower/Bathe Self (QC): 6 (not met) Upper Body Dressing (QC): 6 (met) Lower Body Dressing (QC): 6 (not met) On/Off Footwear (QC): 6 (met) Toileting Hygiene (QC): 6 (met) Toilet/Commode Transfer (QC): 6 Additional Goals: 1-Demonstrate ADL Tasks, 2-Verbalize Understanding, 3- ImproveStrength/Sharad 1=Demonstrate adherence to instructed precautions during ADL tasks. 2=Patient will verbalize/demonstrate understanding of assistive devices/modifications for ADL. 3=Patient will improve strength/tolerance for activity to enable patient to perform ADL's. RYAN DUNNE OT Aug 09, 2021 14:10
== END 2021-08-09 11:30 | disposition home health service (06) | DRG 948 ==
PROVIDERS: ADMIT Internal Medicine; ATTEND Internal Medicine
DX: R53.81 Other malaise (principal); I50.32 Chronic diastolic (congestive) heart failure; L76.32 Postprocedural hematoma of skin and subcutaneous tissue following other procedure; C83.30 Diffuse large B-cell lymphoma, unspecified site; I11.0 Hypertensive heart disease with heart failure; Z96.641 Presence of right artificial hip joint; I48.0 Paroxysmal atrial fibrillation; E11.9 Type 2 diabetes mellitus without complications; E78.5 Hyperlipidemia, unspecified; D64.9 Anemia, unspecified; J44.9 Chronic obstructive pulmonary disease, unspecified; M19.91 Primary osteoarthritis, unspecified site; M06.9 Rheumatoid arthritis, unspecified; K21.9 Gastro-esophageal reflux disease without esophagitis; F32.A Depression, unspecified; G31.84 Mild cognitive impairment of uncertain or unknown etiology; K59.00 Constipation, unspecified; I08.3 Combined rheumatic disorders of mitral, aortic and tricuspid valves; Z79.01 Long term (current) use of anticoagulants; Z79.84 Long term (current) use of oral hypoglycemic drugs; Z79.82 Long term (current) use of aspirin; Z88.0 Allergy status to penicillin; Z88.8 Allergy status to other drugs, medicaments and biological substances; Z88.1 Allergy status to other antibiotic agents; Z91.041 Radiographic dye allergy status
CPT/HCPCS: 36415; 80053; 80202; 85007; 85025; 85027; 94760

== ENCOUNTER → 2021-11-06 | Outpatient (CLI) | payer MEDICARE, OTHER ==
[~2021-11-06] MED LIST changes: +CARV12.53 PO; +CATHETER FLUSH 10 ML SYR IVP PRN; +FURO40TA4 PO; +POTA-169 PO; +REGADENOSON 0.4 MG/5 ML SYR (LEXISCAN) IV ONE
--- NOTE | 2021-11-06 20:10 | STRESS TEST ---
DATE OF SERVICE: 11/06/2021 RESTING AND POST REGADENOSON TECHNETIUM-99M TETROFOSMIN SPECT CT IMAGING ORDERING PHYSICIAN: Dr. Davis. PRIMARY PHYSICIAN: Dr. Santos. CLINICAL DIAGNOSIS: Shortness of breath. Baseline images were carried out after injection of 10.98 mCi of technetium-99m Tetrofosmin. This was followed by 0.4 mg regadenoson and 30.9 mCi of technetium-99m Tetrofosmin for stress imaging. The electrocardiogram showed atrial fibrillation at baseline. The electrocardiogram did not change significantly with regadenoson infusion. The ventricular rate remained controlled during the study. She noted some facial flushing and shortness of breath following regadenoson infusion, which resolved in a few minutes after the regadenoson administration. Review of images at rest and following stress does not indicate any significant perfusion defects consistent with myocardial ischemia or infarction. Gated images show normal global left ventricular systolic function with normal regional wall motion. Left ventricular ejection fraction is calculated to be 66%. CONCLUSIONS: 1. No evidence of any significant myocardial ischemia or infarction is seen. 2. Normal regional wall motion and normal global left ventricular systolic function with a calculated ejection fraction of 66%. Job ID: [id number] DocumentID: [id number] Dictated Date: 11/06/2021 18:22:13 Boiler Operator Helper Date: 11/06/2021 20:09:19 Dictated By: ANA DAVIS MD, MA, FACP, FACC, MTDD
== END ==
LOC: CARD 08:30
PROVIDERS: ATTEND Internal Medicine Cardiovascular Disease
DX: R06.02 Shortness of breath (principal)
CPT/HCPCS: 78452; 93017; A9502

== ENCOUNTER → 2021-12-21 | Outpatient (CLI) | payer MEDICARE, OTHER ==
[~2021-12-21] MED LIST changes: -CATHETER FLUSH 10 ML SYR IVP PRN; -REGADENOSON 0.4 MG/5 ML SYR (LEXISCAN) IV ONE
== END ==
LOC: CARD 09:30
PROVIDERS: ATTEND Nurse Practitioner Family
DX: R00.2 Palpitations (principal)
CPT/HCPCS: 93225; 93226

== ENCOUNTER → 2022-01-01 | Outpatient (CLI) | payer MEDICARE, OTHER ==
[~2022-01-01] MED LIST changes: -CHOL200014 PO; +CHOL200052 PO
--- NOTE | 2022-01-01 14:35 | Diagnostic Imaging Report ---
INDICATION: Routine screening. COMPARISON: 12/05/2020 and 09/27/2019. TECHNIQUE: 2D and 3D bilateral screening mammography was performed with CAD. FINDINGS: Both breasts are heterogeneously dense, limiting the sensitivity of mammography. The parenchymal pattern is stable. Benign parenchymal and vascular calcifications are again noted. There is a biopsy clip on the left. No dominant mass or malignant-appearing microcalcifications are seen. The axillae are unremarkable. IMPRESSION: No mammographic features suspicious for malignancy are identified. ACR BI-RADS Category 2: Benign findings. Result letter will be mailed to the patient. Note: At least 10% of breast cancer is not imaged by mammography. Dictated by: Dictated on workstation # [id number]
== END ==
LOC: RAD 11:15
PROVIDERS: ATTEND Obstetrics & Gynecology
DX: Z12.31 Encounter for screening mammogram for malignant neoplasm of breast (principal)
CPT/HCPCS: 77063; 77067

== ENCOUNTER 2022-03-06 06:09 | Outpatient (CLI) | payer MEDICARE, OTHER ==
[~2022-03-06] VITALS: Ht 167 cm; Wt 63.0 kg
== END 2022-03-07 14:07 | disposition home or self-care (01) ==
LOC: PREOP 06:09
PROVIDERS: ATTEND Orthopaedic Surgery
DX: Z01.818 Encounter for other preprocedural examination (principal)

== ENCOUNTER 2022-03-13 06:53 | Day surgery (SDC) | payer MEDICARE, OTHER ==
--- NOTE | 2022-03-05 20:11 | HISTORY AND PHYSICAL ---
DATE OF SERVICE: ADMISSION HISTORY AND PHYSICAL This will be for outpatient surgery on 03/13/2022 for right knee arthroscopy. HISTORY OF PRESENT ILLNESS: The patient is a 77-year-old female who has previously undergone treatment with physical therapy and total knee arthroplasty. She reports continued pain and stiffness in her knees. She does have a history of lumbar spine issues. The patient understands that some of her leg pain may be coming from her lumbar spine. She complains of anterior knee pain with stiffness and has elected to proceed with right knee arthroscopy with lysis of adhesions. I understand that this may not fully alleviate her symptoms. REVIEW OF SYSTEMS: No chest pain, no shortness of breath, no dysuria. PAST MEDICAL HISTORY: Diabetes, hypertension, headaches, reflux, arthritis, mitral valve prolapse, atrial fibrillation. PAST SURGICAL HISTORY: Appendectomy, cholecystectomy, hysterectomy, hemorrhoidectomy, sinus surgery, anterior cervical spine, right total knee arthroplasty. FAMILY HISTORY: Significant for leukemia, diabetes. PRIMARY CARE PROVIDER: Dr. Bowie. MEDICATIONS: Losartan, Celexa, atorvastatin, Premarin, pantoprazole, aspirin, Eliquis, metformin, probiotic, Pepcid, potassium, vitamin D, furosemide, carvedilol, mirtazapine. ALLERGIES: IODINE, PREDNISONE, AMITIZA, TAPE, BACTRIM, PENICILLIN, CIPRO, KEFLEX, EFFEXOR. SOCIAL HISTORY: The patient denies alcohol, tobacco use. PHYSICAL EXAMINATION: GENERAL: The patient is well-developed, well-nourished, in no acute distress. HEENT: Normocephalic, atraumatic. Pupils are equal, round, reactive to light. Oropharynx is clear. NECK: Supple, no lymphadenopathy. LUNGS: Clear to auscultation bilaterally. HEART: Regular rate and rhythm. ABDOMEN: Soft, nontender, nondistended. EXTREMITIES: The patient does have a positive straight leg raise on the right. Range of motion of the knees, 0/10/120. There is no varus valgus laxity. There is no erythema or warmth. IMPRESSION: Right knee stiffness, status post total knee arthroplasty. PLAN: Right knee arthroscopy with lysis of adhesions. The risks, benefits, options, ramifications and recovery have been discussed at length with the patient. She understands and wishes to proceed. Job ID: [id number] DocumentID: [id number] Dictated Date: 02/25/2022 16:23:53 Clinical Biochemist Date: 02/25/2022 19:45:48 Dictated By: GEGE ARCE MD
[~2022-03-13] VITALS: Ht 167 cm; Wt 63.0 kg
[2022-03-13] VITALS (11 sets, daily range): BP systolic 120–156; BP diastolic 50–74
[2022-03-13] MEDS ORDERED: LACTATED RINGERS 1,000 ML IV PRN (07:15)
[2022-03-13] MEDS ORDERED: morphine PF (DURAMORPH) 10 MG/10 ML AMP ONE (07:17)
[2022-03-13] MEDS ORDERED: BUPIVACAINE 0.25% 30 ML (SENSORCAINE) VIAL ONE (07:18)
[2022-03-13] MEDS ORDERED: HYDROcodone/APAP 7.5 MG/325 MG (LORTAB, LORCET PLUS) TABLET PO PRN (07:30)
[2022-03-13] MEDS ORDERED: LIDOCAINE PF 2% 5 ML (XYLOCAINE) VIAL ONE (07:35)
[2022-03-13] MEDS ORDERED: proPOfol 200 MG/20 ML (DIPRIVAN) VIAL IV ONE (07:35)
[2022-03-13] MEDS ORDERED: ONDANSETRON 4 MG/2 ML (SDV) Z0FRAN ONE ×3 (07:35→09:33)
[2022-03-13] MEDS ORDERED: fentaNYL INJ 100 MCG/2 ML AMP ONE (07:35)
--- NOTE | 2022-03-13 07:35 | Progress Note-Pre Operative ---
Pre-Operative Progress Note H&P Reviewed The H&P was reviewed, patient examined and no changes noted. Date Seen by Provider: Mar 13, 2022 Time Seen by Provider: 07:27 Date H&P Reviewed: Mar 13, 2022 Time H&P Reviewed: 07:11 Pre-Operative Diagnosis: right knee adhesions status post TKA GEGE ARCE MD Mar 13, 2022 07:35
--- NOTE | 2022-03-13 07:36 | Progress Note-Post Operative ---
Post-Operative Progess Note Surgeon (s)/Sifting Operator (s) Surgeon GEGE ARCE MD Sifting Operator: Ramon Inman Pre-Operative Diagnosis right knee adhesions status post TKA Post-Operative Diagnosis right knee adhesions status post TKA Procedure & Operative Findings Date of Procedure 03/13/22 Procedure Performed/Findings right knee arthroscopic lysis of adhesions Anesthesia Type GETA Estimated Blood Loss Estimated blood loss (mL): minimal Specimens/Packing Specimens Removed none Packing: none GEGE ARCE MD Mar 13, 2022 07:36
[2022-03-13] MEDS ORDERED: FAMOTIDINE 20MG/2ML IV (PEPCID) ONE (07:44)
[2022-03-13] MEDS ORDERED: CLINDAMYCIN 600 MG/50 ML IVPB 50 ML IV ONE (07:45)
[2022-03-13] MEDS ORDERED: FAMOTIDINE 20MG/2ML IV (PEPCID) IV ONE (08:00)
[2022-03-13] MEDS ORDERED: ONDANSETRON 4 MG/2 ML (SDV) Z0FRAN IV ONE (08:00)
[2022-03-13] MEDS ORDERED: SEVOFLURANE (ULTANE) 15 ML INHAL SOLN ONE (09:19)
[2022-03-13] MEDS ORDERED: ONDANSETRON 4 MG/2 ML (SDV) Z0FRAN IVP PRN ×2 (10:00→10:15)
[2022-03-13] MEDS ORDERED: PROMETHAZINE INJ 25 MG/ML (PHENERGAN) AMP ONE (10:10)
--- NOTE | 2022-03-13 10:13 | Anesthesia-General Post-Op ---
General Patient Condition Mental Status/LOC: Same as Preop Cardiovascular: Satisfactory Nausea/Vomiting: Absent Respiratory: Satisfactory Pain: Controlled Complications: Absent Post Op Complications Complications None Follow Up Care/Instructions Patient Instructions None needed. Anesthesia/Patient Condition Patient Condition Patient is doing well, no complaints, stable vital signs, no apparent adverse anesthesia problems. No complications reported per nursing. HETAL VELARDE CRNA Mar 13, 2022 10:12
[2022-03-13] MEDS ORDERED: PROMETHAZINE INJ 25 MG/ML (PHENERGAN) AMP IVP ONE (10:15)
[2022-03-13] MEDS ORDERED: HYDROcodone/APAP 7.5 MG/325 MG (LORTAB, LORCET PLUS) TABLET PO ONE (11:30)
--- NOTE | 2022-03-13 12:10 | Physical Therapy Ortho Eval ---
PT Orthopedic Evaluation Type of Surgery Knee Scope Prior Level of Function Current Living Status: Spouse Locomotion (Upon Admit): Independent Established Durable Medical Eq: Front Wheeled Walker Subjective Subjective Pt reports she is feeling fine. She had a TKA in July of 2021. She completed PT but had residual stiffness and pain. Underwent arthroscopic surgery for debridement of adhesions. Entry Into Home: Stairs With Railing Steps Into Home: 2 Motor Control Motor Control: Motor Control WNL ROM left knee 10-95 degrees Strength Strength: Gen Weak,No Focal Deficit Transfer SCALE: Activities may be completed with or without assistive devices. 0-Yzcwhxvmps-minjmmt completes the activity by him/herself with no assistance from a helper. 5-Set-up or Clean-up Assistance-helper sets up or cleans up; patient completes activity. [place] assists only prior to or following the activity. 4-Supervision or Touching Assistance-helper provides verbal cues and/or touching/steadying and/or contact guard assistance as patient completes activity. Assistance may be provided throughout the activity or intermittently. 3-Partial/Moderate Assistance-helper does LESS THAN HALF the effort. [place] lifts, holds or supports trunk or limbs, but provides less than half the effort. 2-Substantial/Maximal Assistance-helper does MORE THAN HALF the effort. [place] lifts or holds trunk or limbs and provides more than half the effort. 8-Llpbeklbu-jkigrk does ALL the effort. Patient does none of the effort to complete the activity. Or, the assistance of 2 or more helpers is required for the patient to complete the activity. If activity was not attempted, code reason: 7-Patient Refused. 9-Not Applicable-not attempted and the patient did not perform the activity before the current illness, exacerbation or injury. 10-Not Attempted due to Environmental Limitations-(lack of equipment, weather restraints, etc.). 88-Not Attempted due to Medical Conditions or Safety Concerns. Transfers (B, C, W/C) (QC): 4 Able to transfer in/out of bed without assist; steadying assist during transfer and gait Gait Gait Assistive Device: FWW Gait (QC): 4 Distance (QC): 2=687-61 ft Distance: 100 Gait Level of Assist: 4 Summary/Comments Walked 100ft with FWW; contact guard assist. Pt had no LOB and demonstrated safe ambulation. Wheelchair Wheelchair Distance (QC): 0=does not occure Treatment Rendered Treatment: Therapeutic Exercises, Gait Train, Step Train Exercise Instruction: Quad Sets, Straight Leg Raise, Heel Slides Assessment/Goals Goal Time Frame: 1 Visit Understands HEP: Yes Safe Ambulation: Yes Plan Treatment Plan: Functional Strength PT/Family Agrees to Plan: Yes Time Time In: 1150 Time Out: 1210 Total Billed Treatment Time: 20 Billed Treatment Time visit, Eval Low Complexity 15 min, ex 5 min No ULISES OSEGUERA PT Mar 13, 2022 12:10
--- NOTE | 2022-03-13 17:43 | OPERATIVE REPORT ---
DATE OF SERVICE: 03/13/2022 PREOPERATIVE DIAGNOSIS. Right knee adhesions, status post total knee arthroplasty. POSTOPERATIVE DIAGNOSIS: Right knee adhesions, status post total knee arthroplasty. PROCEDURE PERFORMED: Right knee arthroscopic lysis of adhesions. SURGEON: Ghanshyam Arce MD. RADIO ENGINEERING TEACHER: Ramon Inman, who assisted throughout the procedure and closed the incisions. ANESTHESIA: General endotracheal by Elmira Escamilla CRNA. ESTIMATED BLOOD LOSS: Minimal. DRAINS: None. COMPLICATIONS: None. POSTOPERATIVE PLAN: Weightbearing as tolerated with range of motion exercises. The patient was transferred to the recovery room awake and in stable condition. STATEMENT OF MEDICAL NECESSITY: The patient is a 77-year-old female, who had previously undergone a right total knee arthroplasty. She had failed to obtain full extension. She had complaints also consistent with lumbar radiculopathy. The patient understood an arthroscopy could help with her knee symptoms, but would not alleviate any symptoms arising from her lumbar issues. Examination under anesthesia revealed range of motion of 0/12/125. No varus or valgus laxity. Negative anterior and posterior drawer. Arthroscopic findings demonstrated dense adhesions anteriorly. Her components were stable. There is no evidence of tissue necrosis or purulence. DESCRIPTION OF PROCEDURE: After the risks and benefits of the procedure were discussed and questions were answered, an informed consent was signed and placed on chart, the operative site was confirmed in the preoperative holding area initialed by the surgeon. The patient was then transported to the operating room and after adequate levels of general endotracheal anesthetic were obtained, a timeout was called, confirming the operative site. Examination under anesthesia was performed with the above findings noted. The right lower extremity was prepped and draped in the usual sterile fashion. Knee joint was injected with 60 mL of fluid and standard inferolateral portal was placed for the arthroscope. Under direct visualization, an inferior medial portal was created. A diagnostic arthroscopy was carried out, which revealed no evidence of loosening. There were dense adhesions noted anteriorly. These were resected with a shaver through the inferior medial portal and then the scope was redirected into the inferior medial portal and the shaver through the inferolateral portal and the remainder of the adhesions were removed. This allowed extension to 5 degrees. There was a significant improvement. Her knee remains stable and the patella tracked well. The knee joint was copiously irrigated and the portal sites were closed with 4-0 nylon in simple interrupted fashion. The knee was injected with Duramorph. The port sites were infiltrated with plain Marcaine. A soft dressing was applied and the patient was transferred to the recovery room awake and in stable condition. Job ID: [id number] DocumentID: [id number] Dictated Date: 03/13/2022 09:22:02 Copy Center Associate Date: 03/13/2022 17:42:20 Dictated By: GHANSHYAM ARCE MD
== END 2022-03-13 12:35 | disposition home or self-care (01) ==
LOC: SDC 06:53
PROVIDERS: ATTEND Orthopaedic Surgery
DX: T84.82XS Fibrosis due to internal orthopedic prosthetic devices, implants and grafts, sequela (principal)
CPT/HCPCS: 82947; 87081

== ENCOUNTER 2022-03-29 13:33 | Outpatient (RCR) | payer MEDICARE, OTHER | END 2022-03-31 | disposition home or self-care (01) | PROVIDERS: ATTEND Orthopaedic Surgery | DX: M25.561 Pain in right knee (principal); Z98.890 Other specified postprocedural states; Z96.651 Presence of right artificial knee joint ==

== ENCOUNTER 2022-04-08 12:43 | Outpatient (RCR) | payer MEDICARE, OTHER ==
[~2022-04-08 12:43] MED LIST changes: +LEVO250T66 PO; +LEVO750T PO; -LEVO750T39 PO; -LVF250T PO
== END 2022-05-01 | disposition home or self-care (01) ==
PROVIDERS: ATTEND Orthopaedic Surgery
DX: Z96.651 Presence of right artificial knee joint (principal)

== ENCOUNTER → 2022-07-10 | Outpatient (CLI) | payer MEDICARE, OTHER ==
--- NOTE | 2022-07-10 17:04 | Diagnostic Imaging Report ---
INDICATION: 5th finger pain. FINDINGS: 3 views of the left 5th finger shows ulnar deviation of the finger at the PIP joint. There is also slight ulnar displacement of the middle phalanx. 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 No acute fracture is seen. Dictated by: Dictated on workstation # [id number]
== END ==
LOC: RAD 14:30
PROVIDERS: ATTEND Nurse Practitioner Family
DX: M19.042 Primary osteoarthritis, left hand (principal)
CPT/HCPCS: 73140

== ENCOUNTER 2022-11-22 09:13 | Emergency (ER) | payer MEDICARE, OTHER ==
[2022-11-22] MEDS ORDERED: FLUORESCEIN (FLUOR-I-STRIPS) 1 MG STRP OU ONE (10:00)
[2022-11-22] MEDS ORDERED: TETRACAINE 0.5% OPHTH SOLN 4 ML BTL (SINGLE DOSE ONLY) OU ONE (10:00)
[2022-11-22] MEDS ORDERED: BSS 15 ML IR ONE (10:00)
--- NOTE | 2022-11-22 10:58 | ED EENT ---
History of Present Illness General Chief Complaint: Eye Problems Stated Complaint: RT EYE PAIN/SWELLING Nursing Triage Note: PT AMB TO RM 6 WITH C/O R EYE ITCHINESS AND REDNESS SINCE FRIDAY NIGHT. PT GIVEN PREDISALONE DROPS FROM EYE YESTERDAY Source: patient Exam Limitations: no limitations History of Present Illness Date Seen by Provider: Nov 22, 2022 Time Seen by Provider: 09:27 Initial Comments Patient is a 77yo female who presents to the ER with a chief complaint of left eye "bleeding". SHe states over the last 24-36hours she has had an itchy watery right eye. She denies trauma. She states she thinks the skin around the right eye may have been a little bit red. No vision changes, SHe states that she has been coughing (non productive) and noted some blood appearing around the white part of her eye. SHe called her eye doctor's office ([facility]). SHe states she was prescribed eye drops and shows me prednisolone drops and has been using those. The bleeding has gotten worse. She is chronically anticoagulated. Denies fevers, chills, n/v/d or urinary complaints. No eye pain. The reness around her eye has gotten worse in the last 12-24h. Timing/Duration: gradual Location: eye (R) Prearrival Treatment: other (Prednisolone eyedrops) Associated Symptoms: cough, facial pain/swelling (Little redness and swelling around the right eye) Allergies and Home Medications Allergies Coded Allergies: Cephalexin Monohydrate (Verified Allergy, Unknown, has tolerated Ancef, 08/03/19) Iodinated Contrast Media (Verified Allergy, Unknown, 10/29/19) Penicillins (Verified Allergy, Unknown, Has tolerated Ancef, 08/03/19) adhesive tape (Verified Allergy, Unknown, 08/04/21) ciprofloxacin (Verified Allergy, Unknown, 02/25/21) iodine (Verified Allergy, Unknown, 07/08/19) linaclotide (Verified Allergy, Unknown, 07/28/19) lubiprostone (Verified Allergy, Unknown, 07/28/19) prednisolone (Verified Allergy, Unknown, 02/25/21) sulfamethoxazole (Verified Allergy, Unknown, 02/25/21) trimethoprim (Verified Allergy, Unknown, 02/25/21) venlafaxine HCl (Verified Allergy, Unknown, 07/08/19) Patient Home Medication List Home Medication List Reviewed: Yes Apixaban (Eliquis) 5 Mg Tablet, 5 MG PO BID Prescribed by: DAVINA TRONCOSO on 08/09/21 0800 Aspirin (Aspirin EC) 81 Mg Tablet.dr, 81 MG PO DAILY, (Reported) Entered as Reported by: ALESHIA CONNELLY on 10/31/20 1122 Atorvastatin Calcium (Atorvastatin Calcium) 20 Mg Tablet, 20 MG PO 1700, (Reported) Entered as Reported by: BRUNO GRIMALDO on 07/09/19 0910 Carboxymethylcellulose Sodium (Refresh Tears) 15 Ml Drops, 2 DROPS OU PRN PRN for DRY EYES, (Reported) Entered as Reported by: ALESHIA CONNELLY on 12/15/19 1311 Carvedilol (Carvedilol) 12.5 Mg Tablet, 12.5 MG PO BID Prescribed by: DAVINA TRONCOSO on 08/09/21 0800 Cholecalciferol (Vitamin D3) (Vitamin D3) 50 Mcg Tablet, 100 MCG PO DAILY, (Reported) Entered as Reported by: ROB SOLARES on 06/21/21 1425 Citalopram Hydrobromide (Citalopram HBr) 10 Mg Tablet, 10 MG PO BID WITH MEALS, (Reported) Entered as Reported by: BRUNO GRIMALDO on 10/15/19 0954 Docusate Sodium (Docusate Sodium) 100 Mg Capsule, 100 MG PO BID PRN for CONSTIPATION-1ST LINE, (Reported) Entered as Reported by: ALESHIA CONNELLY on 08/02/21 1107 Estrogens Conjugated (Premarin) 0.45 Mg Tab, 0.45 MG PO DAILY, (Reported) Entered as Reported by: BRUNO GRIMALDO on 07/09/19 0910 Famotidine (Famotidine) 20 Mg Tablet, 20 MG PO BID WITH MEALS, (Reported) Entered as Reported by: BRUNO GRIMALDO on 10/15/19 0954 Furosemide (Furosemide) 40 Mg Tablet, 40 MG PO DAILY Prescribed by: DAVINA TRONCOSO on 08/09/21 0800 Lactobacillus Combo No.10 (Probiotic) 1 Each Capsule, 1 EACH PO DAILY, (Reported) Entered as Reported by: ALESHIA CONNELLY on 12/15/19 1319 Losartan Potassium (Losartan Potassium) 50 Mg Tablet, 50 MG PO 1700, (Reported) Entered as Reported by: ALESHIA CONNELLY on 10/31/20 1122 Metformin HCl (Metformin HCl ER) 500 Mg Tab.er.24h, 500 MG PO 1700 W/MEAL, (Reported) Entered as Reported by: ALESHIA CONNELLY on 10/31/20 112 Mirtazapine (Mirtazapine) 15 Mg Tablet, 15 MG PO HS, (Reported) Entered as Reported by: SHARMAINE SIMPSON on 07/04/21 1444 Pantoprazole Sodium (Pantoprazole Sodium) 40 Mg Tablet.dr, 40 MG PO DAILY, (Reported) Entered as Reported by: MARGARET CARDOZA on 07/08/191999 Potassium Chloride (Klor-Con M20) 20 Meq Tab.er.prt, 20 MEQ PO DAILY@0700 Prescribed by: DAVINA TRONCOSO on 08/09/21 0800 Vit A/Vit C/Vit E/Zinc/Copper (Preservision Areds Tablet) 1 Each Tablet, 2 TAB PO DAILY, (Reported) Entered as Reported by: BRUNO GRIMALDO on 07/09/19 0910 Review of Systems Review of Systems Constitutional: see HPI Eyes: Blurred Vision (mild), Other (right eye drainage; blood in the white part of her eye; redness around the right eye) Ears: No Symptoms Reported Nose: no symptoms reported Mouth: no symptoms reported Throat: no symptoms reported Respiratory: no symptoms reported Cardiovascular: no symptoms reported Gastrointestinal: no symptoms reported Musculoskeletal: no symptoms reported Skin: rash (redness) Past Fnbcwdm-Lvvdqo-Fkkmmk Hx Patient Social History Tobacco Use?: No Use of E-Cig and/or Vaping dev: No Substance use?: No Alcohol Use?: No Pt feels they are or have been: No Immunizations Up To Date Tetanus Booster (TDap): Unknown Influenza Vaccine Up-to-Date: Yes; Up-to-Date First/Initial COVID19 Vaccinat: 12/20 Second COVID19 Vaccination Esa: YES Third COVID19 Vaccination Date: YES Seasonal Allergies Seasonal Allergies: Yes Past Medical History Surgery/Hospitalization HX: 07/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, DM, AFIB, HYST, APPY, CATARACT, HIATAL HERNIA, Surgeries: Yes Appendectomy, Bladder Surgery, Cardiac, Gallbladder, Hysterectomy, Joint Replacement Respiratory: Yes Pneumonia, COPD Currently Using CPAP: No Currently Using BIPAP: No Cardiac: Yes (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) Atrial Fibrillation, Hypertension, Valvular Heart Disease Neurological: No 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: Menopausal Genitourinary: Yes Bladder Infection Gastrointestinal: Yes Gastroesophageal Reflux, Gastrointestinal Bleed, Chronic Constipation, Hiatal Hernia Musculoskeletal: Yes Arthritis, Rheumatoid Arthritis Endocrine: Yes Diabetes, Non-Insulin dep HEENT: No Loss of Vision: Denies Cancer: Yes Lymphoma Did You Recieve Any Treatments: Yes What Type of Treatment Did You: Chemotherapy Psychosocial: Yes Anxiety, Depression Integumentary: No Blood Disorders: No Adverse Reaction/Blood Tranf: No Family Medical History Cancer, Hypertension Physical Exam Vital Signs Vital Signs - First Documented 11/22/22 09:18 Temp 36.8 Pulse 73 Resp 16 B/P (MAP) 185/77 (113) Height, Weight, BMI Height: '" Weight: lbs. oz. kg; 22.58 BMI Method:Estimated General Appearance: WD/WN, no apparent distress Eyes: right eye conjunctival hemorrhage, right eye lid inflammation, right eye other (very mild erythema almost circumferential (seems inferior lateral aspect of periorbital region is not as erythematous) Non tender); bilateral eye PERRL, bilateral eye EOMI Ears: bilateral ear auricle normal Nose: normal inspection Mouth/Throat: normal mouth inspection, pharynx normal Neck: full range of motion, supple Respiratory: no respiratory distress, no accessory muscle use Neurologic/Psychiatric: alert, normal mood/affect, oriented x 3 Skin: normal color, warm/dry, other (mild erythema as above right eye) Progress/Results/Core Measures Results/Orders My Orders Orders - KEVIN WASHBURN MD Tetracaine 0.5% Ophth Josette Sdv (Tetracai (11/22/22 10:00) Fluorescein Strips (Xruvi-A-Obzwzp) (11/22/22 10:00) Balanced Salt Irrigation Soln (Bss Irrig (11/22/22 10:00) Medications Given in ED Vital Signs/I&O Blood Pressure Mean: 113 Progress Progress Note : Time: 11:00 Progress Note Patient seen and evaluated. Eval today includes a physical exam that includes staining of the conjunctivae with fluorescein and eval for abrasion as well as IOP testing. Physical exam pertinent for mild erythema surrounding the right eye including the upper and lower lid. Fairly significant subconjunctival hemmorhage. PERRL. EOMI. globe is nontender. Patient states vision from left eye is mildly blurry. No corneal clouding. REst of exam is unremarkable. VSS. After staining no corneal abrasion is identified. Her IOP is measured 3 times, . I discussed with care with Dr Carroll ([facility]). He recommended discontinuing the prednisolone drops. F/U in the office - I did find out that locally Dr Steven (in the same office) has seen Mrs Hawkins - Dr Martin just did her cataract surgery. REcc she just monitor the eyelid erythema and if it worsens or she develops eye pain, she return or see their office. SHe does have prednisolone listed as an allergy and quite conceivably the erythema surrounding her right eye is more a contact dermatitis rather than developing preseptal/septal cellulitis. PAtient is comfortable with this plan of care. No other clinical or objective findings to warrant further study or treatment. I am not sending her out on new antibiotics at this time. Departure Communication (Admissions) Time/Spoke to Consulting Phy: 10:[address] Carroll - off steroid drops; conservative treatment; recheck follow up as needed. they are happy to see as her opthalmologist is out of town Impression Primary Impression: Subconjunctival hemorrhage of right eye Additional Impression: Contact dermatitis Qualified Codes: L24.4 - Irritant contact dermatitis due to drugs in contact with skin Disposition: 01 HOME, SELF-CARE Condition: Stable Departure-Patient Inst. Decision time for Depature: 11:07 Referrals: VIDYA CARROLL OD, JOHN D MD (PCP/Family) Primary Care Physician Patient Instructions: Contact Dermatitis (DC), Subconjunctival Hemorrhage Add. Discharge Instructions: Stop using the prednisolone drops. Switch to your refresh tears daily. If the redness around your eye becomes more swollen, painful, more red and you develop a fever please come back to the emergency room.. You can take Tylenol as needed for discomfort. Cool compresses to the right eye. It may take a couple of weeks for the blood around your eyeball to go away. Please call Dr Carroll's office for a follow up appointment next Friday/Friday. I am actually going to hold off on antibiotics for now and see if stopping the prednisone eye drops helps to improve your eye redness. Copy Copies To 1: LITZY SHAFER MD Copies To 2: VIDYA CARROLL OD, KATHRYN M MD Nov 22, 2022 10:58
[2022-11-22 11:21] VITALS: BP 150/50
== END 2022-11-22 11:21 | disposition home or self-care (01) ==
LOC: EDUNIT# 09:13 → ER 09:16
DX: H11.31 Conjunctival hemorrhage, right eye (principal); L25.1 Unspecified contact dermatitis due to drugs in contact with skin; Z79.01 Long term (current) use of anticoagulants
CPT/HCPCS: 99281

== ENCOUNTER → 2022-12-17 | Outpatient (CLI) | payer MEDICARE, OTHER ==
--- NOTE | 2022-12-17 16:54 | Diagnostic Imaging Report ---
Clinical indications: Patient is having increased chronic neck pain. Exam: MRI of the cervical spine performed without IV contrast. Sequences include sagittal T1, sagittal T2, sagittal stir, and axial T2. Comparison: CT scan of the cervical spine without contrast dated 10/30/2020. Findings: Again seen postoperative changes to the cervical spine with C3-C7 anterior cervical discectomy fusion. Patient is noted to have strut grafts across the C4 and C6 vertebra which is better seen on the comparison CT scan of the cervical spine. Prior CT scan shows solid bony bridging/fusion. Limited visualization of posterior fossa shows no significant abnormality. The cervical spinal cord is normal cord caliber with no abnormal signal. There is no significant paraspinal soft tissue abnormality. C1-C2: There is no significant central canal narrowing. C2-C3: There is interval progression of grade 1 retrolisthesis of C2 on C3. There is ligament flavum buckling. There is moderate left facet arthropathy and mild right facet arthropathy. There is moderate central canal stenosis. There is no significant right neural foramen narrowing. There is at least moderate left neural foramen narrowing. C3-C4: There is mild to moderate left facet arthropathy and mild right facet arthropathy. There is no significant central canal stenosis. There is at least mild central canal narrowing. C4-C5: There is bilateral facet arthropathy with hypertrophic changes on the right. There is at least moderate right neural foramen narrowing and mild left neural foramen narrowing. C5-C6: There is mild central canal narrowing. There is ligament flavum buckling. There is moderate to severe right neural foramen narrowing and at least moderate left neural foramen narrowing. C6-C7: There is no significant central canal or neural foramen narrowing. C7-T1: There is no significant central canal narrowing. There is mild to moderate left neural foramen narrowing and no significant right neural foramen narrowing. There is mild left neural foramen narrowing. There is no significant central canal or right neural foramen narrowing. IMPRESSION: 1: There is C3-C7 anterior cervical discectomy fusion and strut graft seen across the C4 and C6 vertebra. This is better seen on the comparison CT scan. 2: There is multilevel cervical spine degenerative disease, as described above. 3: There is interval development of grade 1 retrolisthesis C2 on C3. There is at least moderate left neural foramen narrowing, mild right neural foramen narrowing, and moderate central canal narrowing involving the C2-C3 level. Dictated by: Dictated on workstation # [id number]
== END ==
LOC: RAD 13:15
PROVIDERS: ATTEND Nurse Practitioner
DX: M47.812 Spondylosis without myelopathy or radiculopathy, cervical region (principal); M48.02 Spinal stenosis, cervical region; M24.28 Disorder of ligament, vertebrae
CPT/HCPCS: 72141

== ENCOUNTER → 2022-12-17 | Outpatient (CLI) | payer MEDICARE, OTHER ==
--- NOTE | 2022-12-17 14:24 | Diagnostic Imaging Report ---
INDICATION: Neck pain, postoperative 10 years ago. TECHNIQUE: AP, lateral and odontoid along with lateral flexion and extension views cervical spine.. CORRELATION STUDY: CT 10/30/2020 FINDINGS: Extensive postoperative changes of the cervical spine. This includes anterior plate and screws which extend from C3 through T2. Screws within C3, C6 and T2. Likely corpectomy changes at C4, C5, C7 and T1. Partial also partial resection of the inferior C3 vertebral body. The left screw at T2 has its head incompletely opposed to the plate, unchanged. Few cervical spine alignment appears anatomic without abnormal subluxation with flexion and/or extension. C2-C3 level demonstrates trace retrolisthesis without significant subluxation. Odontoid is largely obscured but appear to be generally unremarkable. Lateral masses C1-C2 aligned. Visualized lung apices unremarkable. Prevertebral soft tissues are unremarkable. IMPRESSION: 1. Extensive surgical changes cervical spine. There is anterior fusion extending from C3 through T2. No abnormal subluxation with flexion and/or extension. Dictated by: Dictated on workstation # [id number]
== END ==
LOC: RAD 10:48
PROVIDERS: ATTEND Nurse Practitioner
DX: M54.2 Cervicalgia (principal); Z98.1 Arthrodesis status
CPT/HCPCS: 72050

== ENCOUNTER 2022-12-26 11:13 | Outpatient (RCR) | payer MEDICARE, OTHER | END 2022-12-29 | disposition home or self-care (01) | PROVIDERS: ATTEND Anesthesiology Pain Medicine | DX: M54.59 Other low back pain (principal); I11.9 Hypertensive heart disease without heart failure ==

== ENCOUNTER 2023-04-20 09:12 | Emergency (ER) | payer MEDICARE, OTHER ==
[~2023-04-20] VITALS: Ht 165.1 cm; Wt 65.8 kg
[2023-04-20] MEDS ORDERED: ONDANSETRON 4 MG ORAL DISSOLVE TABLET PO STA (09:48)
--- NOTE | 2023-04-20 09:48 | ED General ---
General Chief Complaint: General Problems/Pain Stated Complaint: ABD PAIN - FEVER - WEAKNESS Nursing Triage Note: PT TO ROOM 07 [facility] PERSONAL W/C WITH C/O GENERAL WEAKNESS, NAUSEA, AND FEVER STARTING YESTERDAY. PT DENIES VOMITING. Source of Information: Patient Exam Limitations: No Limitations History of Present Illness Date Seen by Provider: Apr 20, 2023 Time Seen by Provider: 09:35 Initial Comments Patient is an 78-year-old female who presents to the emergency department with a chief complaint of 24 hours of generalized fatigue/malaise a little nausea, decreased appetite, mild headache and subjective fevers and chills. She states this morning when she woke up that she was "not able to control" her bowel or bladder. She had diarrhea that was nonblack nonbloody. She states it feels "hot down there" referring to her lady parts. She denies any itching or discharge. She denies dysuria. She took 2 extra strength Tylenol at 730 this morning. She is afebrile here. She has a little cough. She is not short of breath. She does have a history of congestive heart failure. No rashes, joint pain or swelling. She also references a mild sore throat. She is unaware of any sick contacts. Timing/Duration: 24 Hours Severity: Mild Associated Systoms: Cough, Fever/Chills, Headaches, Loss of Appetite, Malaise, Nausea/Vomiting, Weakness Allergies and Home Medications Allergies Coded Allergies: Cephalexin Monohydrate (Verified Allergy, Unknown, has tolerated Ancef, 08/03/19) Iodinated Contrast Media (Verified Allergy, Unknown, 10/29/19) Penicillins (Verified Allergy, Unknown, Has tolerated Ancef, 08/03/19) adhesive tape (Verified Allergy, Unknown, 08/04/21) ciprofloxacin (Verified Allergy, Unknown, 02/25/21) iodine (Verified Allergy, Unknown, 07/08/19) linaclotide (Verified Allergy, Unknown, 07/28/19) lubiprostone (Verified Allergy, Unknown, 07/28/19) prednisolone (Verified Allergy, Unknown, 02/25/21) sulfamethoxazole (Verified Allergy, Unknown, 02/25/21) trimethoprim (Verified Allergy, Unknown, 02/25/21) venlafaxine HCl (Verified Allergy, Unknown, 07/08/19) Patient Home Medication List Home Medication List Reviewed: Yes Apixaban (Eliquis) 5 Mg Tablet, 5 MG PO BID Prescribed by: DAVINA TRONCOSO on 08/09/21 0800 Aspirin (Aspirin EC) 81 Mg Tablet.dr, 81 MG PO DAILY, (Reported) Entered as Reported by: ALESHIA CONNELLY on 10/31/20 1122 Atorvastatin Calcium (Atorvastatin Calcium) 20 Mg Tablet, 20 MG PO 1700, (Repor tamiko) Entered as Reported by: BRUNO GRIMALDO on 07/09/19 0910 Carboxymethylcellulose Sodium (Refresh Tears) 15 Ml Drops, 2 DROPS OU PRN PRN for DRY EYES, (Reported) Entered as Reported by: ALESHIA CONNELLY on 12/15/19 1311 Carvedilol (Carvedilol) 12.5 Mg Tablet, 12.5 MG PO BID Prescribed by: DAVINA TRONCOSO on 08/09/21 0800 Cholecalciferol (Vitamin D3) (Vitamin D3) 50 Mcg Tablet, 100 MCG PO DAILY, (Reported) Entered as Reported by: ROB SOLARES on 06/21/21 1425 Citalopram Hydrobromide (Citalopram HBr) 10 Mg Tablet, 10 MG PO BID WITH MEALS, (Reported) Entered as Reported by: BRUNO GRIMALDO on 10/15/19 0954 Docusate Sodium (Docusate Sodium) 100 Mg Capsule, 100 MG PO BID PRN for CONSTIPATION-1ST LINE, (Reported) Entered as Reported by: ALESHIA CONNELLY on 08/02/21 1107 Estrogens Conjugated (Premarin) 0.45 Mg Tab, 0.45 MG PO DAILY, (Reported) Entered as Reported by: BRUNO GRIMALDO on 07/09/19 0910 Famotidine (Famotidine) 20 Mg Tablet, 20 MG PO BID WITH MEALS, (Reported) Entered as Reported by: BRUNO GRIMALDO on 10/15/19 0954 Furosemide (Furosemide) 40 Mg Tablet, 40 MG PO DAILY Prescribed by: DAVINA TRONCOSO on 08/09/21 0800 Lactobacillus Combo No.10 (Probiotic) 1 Each Capsule, 1 EACH PO DAILY, (Reported) Entered as Reported by: ALESHIA CONNELLY on 12/15/19 1319 Losartan Potassium (Losartan Potassium) 50 Mg Tablet, 50 MG PO 1700, (Reported) Entered as Reported by: ALESHIA CONNELLY on 10/31/20 1122 Metformin HCl (Metformin HCl ER) 500 Mg Tab.er.24h, 500 MG PO 1700 W/MEAL, (Reported) Entered as Reported by: ALESHIA CONNELLY on 10/31/20 1122 Mirtazapine (Mirtazapine) 15 Mg Tablet, 15 MG PO HS, (Reported) Entered as Reported by: SHARMAINE SIMPSON on 07/04/21 1444 Pantoprazole Sodium (Pantoprazole Sodium) 40 Mg Tablet.dr, 40 MG PO DAILY, (Reported) Entered as Reported by: MARGARET CARDOZA on 07/08/19 2000 Potassium Chloride (Klor-Con M20) 20 Meq Tab.er.prt, 20 MEQ PO DAILY@0700 Prescribed by: DAVINA TRONCOSO on 08/09/21 0800 Vit A/Vit C/Vit E/Zinc/Copper (Preservision Areds Tablet) 1 Each Tablet, 2 TAB PO DAILY, (Reported) Entered as Reported by: BRUNO GRIMALDO on 07/09/19 0910 Review of Systems Review of Systems Constitutional: see HPI EENTM: throat pain Respiratory: cough Cardiovascular: no symptoms reported Gastrointestinal: diarrhea, nausea Genitourinary: incontinence (urge) : No Musculoskeletal: no symptoms reported Skin: no symptoms reported Psychiatric/Neurological: Headache All Other Systems Reviewed Negative Unless Noted: Yes Past Uellofn-Zsbajd-Ivofmv Hx Patient Social History Tobacco Use?: No Smoking Status: Never a Smoker Smokeless Tobacco Frequency: Never a User Use of E-Cig and/or Vaping dev: No Use of E-Cig and/or Vaping Eugenio: Never a User Substance use?: No Alcohol Use?: No Pt feels they are or have been: No Immunizations Up To Date Tetanus Booster (TDap): Unknown First/Initial COVID19 Vaccinat: 12/20 Second COVID19 Vaccination Esa: YES Third COVID19 Vaccination Date: YES Seasonal Allergies Seasonal Allergies: Yes Past Medical History Surgery/Hospitalization HX: 07/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, DM, AFIB, HYST, APPY, CATARACT, HIATAL HERNIA, Surgeries: Yes Appendectomy, Bladder Surgery, Cardiac, Gallbladder, Hysterectomy, Joint Replacement Respiratory: Yes Pneumonia, COPD Currently Using CPAP: No Currently Using BIPAP: No 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: Yes (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[employer]) Atrial Fibrillation, Hypertension, Valvular Heart Disease Neurological: No ADDRESSER History: Menopausal Genitourinary: Yes Bladder Infection Gastrointestinal: Yes Gastroesophageal Reflux, Gastrointestinal Bleed, Chronic Constipation, Hiatal Hernia Musculoskeletal: Yes Arthritis, Rheumatoid Arthritis Endocrine: Yes Diabetes, Non-Insulin dep HEENT: No Loss of Vision: Denies Cancer: Yes Lymphoma Did You Recieve Any Treatments: Yes What Type of Treatment Did You: Chemotherapy Psychosocial: Yes Anxiety, Depression Integumentary: No Blood Disorders: No Adverse Reaction/Blood Tranf: No Family Medical History Cancer, Hypertension Physical Exam Vital Signs Vital Signs - First Documented 04/20/23 09:19 Temp 37.4 Pulse 60 Resp 17 B/P (MAP) 118/57 (77) O2 Delivery Room Air Capillary Refill : Less Than 3 Seconds Height, Weight, BMI Height: '" Weight: lbs. oz. kg; 24.00 BMI Method:Estimated General Appearance: No Apparent Distress, WD/WN, Thin Eyes: Bilateral Eye Normal Inspection, Bilateral Eye PERRL, Bilateral Eye EOMI HEENT: PERRL/EOMI, TMs Normal, Pharyngeal Erythema (mild) Neck: Full Range of Motion Respiratory: Lungs Clear, Normal Breath Sounds, No Accessory Muscle Use, No Respiratory Distress Cardiovascular: Regular Rate, Rhythm, Normal Peripheral Pulses Gastrointestinal: Soft, Tenderness (mild suprapubic tenderness) Extremity: Normal Inspection, Normal Range of Motion, Non Tender, No Calf Tenderness, No Pedal Edema Neurologic/Psychiatric: Alert, Oriented x3, No Motor/Sensory Deficits, Normal Mood/Affect Skin: Normal Color, Warm/Dry Progress/Results/Core Measures Suspected Sepsis SIRS Temperature: Pulse: 60 Respiratory Rate: 17 Laboratory Tests 04/20/23 09:23: White Blood Count 7.8 Blood Pressure 118 /57 Mean: 77 Laboratory Tests 04/20/23 09:23: Creatinine 0.90, Platelet Count 175 Results/Orders Lab Results Laboratory Tests Test 04/20/23 09:23 04/20/23 09:51 04/20/23 09:54 Range/Units White Blood Count 7.8 4.3-11.0 10^3/uL Red Blood Count 3.71 L 3.80-5.11 10^6/uL Hemoglobin 11.7 11.5-16.0 g/dL Hematocrit 38 35-52 % Mean Corpuscular Volume 101 H 80-99 fL Mean Corpuscular Hemoglobin 32 25-34 pg Mean Corpuscular Hemoglobin Concent 31 L 32-36 g/dL Red Cell Distribution Width 14.3 10.0-14.5 % Platelet Count 175 130-400 10^3/uL Mean Platelet Volume 9.6 9.0-12.2 fL Immature Granulocyte % (Auto) 0 % Neutrophils (%) (Auto) 69 42-75 % Lymphocytes (%) (Auto) 14 12-44 % Monocytes (%) (Auto) 16 H 0-12 % Eosinophils (%) (Auto) 0 0-10 % Basophils (%) (Auto) 1 0-10 % Neutrophils # (Auto) 5.3 1.8-7.8 10^3/uL Lymphocytes # (Auto) 1.1 1.0-4.0 10^3/uL Monocytes # (Auto) 1.2 H 0.0-1.0 10^3/uL Eosinophils # (Auto) 0.0 0.0-0.3 10^3/uL Basophils # (Auto) 0.1 0.0-0.1 10^3/uL Immature Granulocyte # (Auto) 0.0 0.0-0.1 10^3/uL Sodium Level 138 135-145 MMOL/L Potassium Level 4.3 3.6-5.0 MMOL/L Chloride Level 104 98-107 MMOL/L Carbon Dioxide Level 21 21-32 MMOL/L Anion Gap 13 5-14 MMOL/L Blood Urea Nitrogen 13 7-18 MG/DL Creatinine 0.90 0.60-1.30 MG/DL Estimat Glomerular Filtration Rate 65 BUN/Creatinine Ratio 14 Glucose Level 114 H 70-105 MG/DL Calcium Level 8.6 8.5-10.1 MG/DL Urine Color YELLOW Urine Clarity CLOUDY Urine pH 7.0 5-9 Urine Specific [place] 1.010 L 1.016-1.022 Urine Protein 2+ H NEGATIVE Urine Glucose (UA) NEGATIVE NEGATIVE Urine Ketones NEGATIVE NEGATIVE Urine Nitrite NEGATIVE NEGATIVE Urine Bilirubin NEGATIVE NEGATIVE Urine Urobilinogen 0.2 < = 1.0 MG/DL Urine Leukocyte Esterase 3+ H NEGATIVE Urine RBC (Auto) 2+ H NEGATIVE Urine RBC 5-10 H /HPF Urine WBC >100 H /HPF Urine Squamous Epithelial Cells 10-25 H /HPF Urine Crystals PRESENT H /LPF Urine Amorphous Sediment RARE HAJA PHOSPHATE H /LPF Urine Bacteria LARGE H /HPF Urine Casts NONE /LPF Urine Mucus NEGATIVE /LPF Urine Culture Indicated YES SARS-CoV-2 RNA (RT-PCR) Detected H Not Detecte My Orders Orders - KEVIN WASHBURN MD Ed Iv/Invasive Line Start (04/20/23 09:48) Cbc With Automated Diff (04/20/23 09:48) Basic Metabolic Panel (04/20/23 09:48) Ua Culture If Indicated (04/20/23 09:48) Covid 19 Inhouse Test (04/20/23 09:48) Ondansetron Oral Dissolve Tab (Zofran (04/20/23 09:48) Urine Culture (04/20/23 09:51) Vital Signs/I&O 04/20/23 09:19 Temp 37.4 Pulse 60 Resp 17 B/P (MAP) 118/57 (77) O2 Delivery Room Air Capillary Refill : Less Than 3 Seconds Blood Pressure Mean: 77 Progress Note : Time: 10:54 Progress Note Patient seen and evaluated by me. Evaluation includes physical exam, CBC, BMP, UA and covid test. Pertinent physical exam findings include - WDWN female in NAD who appears adequately hydrated. Heart is regular, lungs a re clear. Abdomen with mild suprapubic tenderness to palpation and no other acute findings. DDx based on H&P includes nonspecific viral exam, UTI, Covid. Labs independently reviewed and interpreted by me. CBC is normal, Chem is normal and UA reveals >100WBC with mild RBS large bacteria consistent with UTI. COvid test is also positive. Patient is treated with ondansetron 4mg. She has no concerning findings on PE to warrant imaging or further studies. No resp distress or hypoxia to warrant CXR. Patient is encouraged to quarantine at home for 5 days. Given a rx for ondansetron and macrobid. Return precautions provided in both verbal and written form. Family member at the bedside comfortable with the plan of care. All questions are sought and answered. Departure Impression Primary Impression: COVID-19 Additional Impression: Urinary tract infection Qualified Codes: N30.01 - Acute cystitis with hematuria Disposition: HOME, SELF-CARE Condition: Stable Departure-Patient Inst. Decision time for Depature: 10:50 Referrals: LITZY SHAFER MD (PCP/Family) Primary Care Physician Patient Instructions: COVID-19 (DC), Urinary Tract Infection, Adult ED Add. Discharge Instructions: You were diagnosed with Covid today. Please try and quarantine at home for 5 days and then out in public for 5 days please wear a mask. Extra strength Tylenol 2 tablets every 6 hours as needed for headache and body aches. Ondansetron orally dissolving tablets every 8 hours as needed for nausea. I have prescribed you Macrobid (Nitrofurantoin) tablets for your Urinary Tract Infection. Once the culture returns, in about 2-3 days) if we need to change your antibiotics, we will contact you and let you know. Please follow up with Dr Shafer's office. If you develop any new, emergent or concerning symptoms - please return to the Emergency Department for re-evaluation. Scripts Nitrofurantoin Monohyd/M-Cryst (Macrobid 100 mg Capsule) 100 Mg Capsule 1 TAB PO BID for 7 Days, #14 CAP Prov: KEVIN WASHBURN MD 04/20/23 Ondansetron (Ondansetron Odt) 4 Mg Tab.rapdis 4 MG SL Q8H PRN for NAUSEA/VOMITING, #12 TAB Prov: KEVIN WASHBURN MD 04/20/23 KEVIN WASHBURN MD Apr 20, 2023 09:47
[2023-04-20 09:55] LABS: BASOPHILS # (AUTO) 0.1 10^3/uL (0.0-0.1); BASOPHILS % (AUTO) 1 % (0-10); EOSINOPHILS % (AUTO) 0 % (0-10); HEMATOCRIT 38 % (35-52); LYMPHOCYTES # (AUTO) 1.1 10^3/uL (1.0-4.0); LYMPHOCYTES % (AUTO) 14 % (12-44); MEAN CORPUSCULAR HEMOGLOBIN 32 pg (25-34); MEAN CORPUSCULAR HGB CONC 31 g/dL (32-36); MEAN CORPUSCULAR VOLUME 101 fL (80-99); MEAN PLATELET VOLUME 9.6 fL (9.0-12.2); MONOCYTES # (AUTO) 1.2 10^3/uL (0.0-1.0); MONOCYTES % (AUTO) 16 % (0-12); NEUTROPHILS # (AUTO) 5.3 10^3/uL (1.8-7.8); NEUTROPHILS % (AUTO) 69 % (42-75); PLATELET COUNT 175 10^3/uL (130-400); WHITE BLOOD COUNT 7.8 10^3/uL (4.3-11.0)
[2023-04-20 09:58] LABS: POTASSIUM 4.3 MMOL/L (3.6-5.0)
[2023-04-20 10:00] LABS: CALCIUM 8.6 MG/DL (8.5-10.1); HEMOGLOBIN 11.7 g/dL (11.5-16.0)
[2023-04-20 10:04] LABS: CREATININE SERUM 0.9 MG/DL (0.60-1.30)
[2023-04-20 10:29] LABS: CLARITY,URINE CLOUDY; COLOR,URINE YELLOW
[2023-04-20 10:30] LABS: BILIRUBIN,URINE NEGATIVE (NEGATIVE); GLUCOSE, URINE (UA) NEGATIVE (NEGATIVE); KETONES,URINE NEGATIVE (NEGATIVE); LEUKOCYTE ESTERASE ,URINE 3+ (NEGATIVE); NITRITE,URINE NEGATIVE (NEGATIVE); PROTEIN,URINE 2+ (NEGATIVE)
[2023-04-20 10:31] LABS: AMORPHOUS SEDIMENT,UR RARE AMOR PHOSPHATE /LPF; BACTERIA,URINE LARGE /HPF; WBC,URINE >100 /HPF
[2023-04-20] MEDS ORDERED: ONDA4TAB11 SL (10:53)
[2023-04-20] MEDS ORDERED: NITR-65 PO (10:53)
[2023-04-20 11:06] VITALS: BP 124/64
== END 2023-04-20 11:06 | disposition home or self-care (01) ==
LOC: EDUNIT# 09:12 → ER 09:13
DX: U07.1 COVID-19 (principal); R11.2 Nausea with vomiting, unspecified; R53.83 Other fatigue; R53.81 Other malaise; R50.9 Fever, unspecified; R51.9 Headache, unspecified; R19.7 Diarrhea, unspecified; N39.0 Urinary tract infection, site not specified
CPT/HCPCS: 36415; 80048; 81000; 85025; 87088; 87636

== ENCOUNTER → 2023-05-10 | Outpatient (CLI) | payer MEDICARE, OTHER ==
[~2023-05-10] MED LIST changes: +NITR-65 PO; +ONDA4TAB11 SL
[2023-05-10 12:37] LABS: HEMATOCRIT 36 % (35-52); HEMOGLOBIN 11.7 g/dL (11.5-16.0); MEAN CORPUSCULAR HEMOGLOBIN 31 pg (25-34); MEAN CORPUSCULAR HGB CONC 32 g/dL (32-36); MEAN CORPUSCULAR VOLUME 97 fL (80-99); PLATELET COUNT 263 10^3/uL (130-400); WHITE BLOOD COUNT 5.9 10^3/uL (4.3-11.0)
[2023-05-10 13:00] LABS: ALBUMIN 4.2 GM/DL (3.2-4.5); BILIRUBIN,TOTAL 0.6 MG/DL (0.1-1.0); CALCIUM 9.1 MG/DL (8.5-10.1); CREATININE SERUM 1.09 MG/DL (0.60-1.30); TOTAL PROTEIN 7.8 GM/DL (6.4-8.2)
== END ==
LOC: LAB 12:17
PROVIDERS: ATTEND Registered Nurse Critical Care Medicine
DX: J18.9 Pneumonia, unspecified organism (principal)
CPT/HCPCS: 36415; 80053; 85027; 86738

== ENCOUNTER 2023-05-14 18:15 | Emergency (ER) | payer MEDICARE, OTHER ==
[~2023-05-14] VITALS: Ht 165 cm; Wt 63.5 kg
[~2023-05-14 18:15] MED LIST changes: -DICL100G13 TOP; +DICL100G60 TOP
--- NOTE | 2023-05-14 18:34 | ED Fall/Injury ---
General Chief Complaint: Trauma-Non Activation Stated Complaint: FELL, HURT UPPER BACK, NECK, RT KNEE, SHOULDERS Source: patient History of Present Illness Date Seen by Provider: May 14, 2023 Time Seen by Provider: 18:24 Initial Comments PT ARRIVES VIA POV FROM HOME--WITH DAUGHTER, AMBULATES IN ON HER OWN USING A WALKER PT STATES AROUND 1400 TODAY, SHE WAS TALKING ON THE PHONE, GOT UP FROM HER CHAIR, AND LOST HER BALANCE AND FELL BACKWARDS, LANDING ON HER BACK AND HITTING THE BACK OF HER HEAD NO LOSS OF CONSCIOUSNESS, AND WAS STILL ON THE PHONE WHEN SHE FELL. FAMILY CAME AND HELPED HER UP SHE STATES "THE BACK OF MY HEAD HURTS REAL BAD" ALSO C/O POSTERIOR NECK PAIN--HAS HAD PRIOR C-SPINE SURGERY ALSO C/O PAIN ALL ACROSS UPPER BACK ALSO C/O RIGHT KNEE PAIN--HAS CHRONIC KNEE PAIN AND HAS HAD RIGHT KNEE REPLACEMENT PT IS ON ELIQUIS NO DIZZINESS NO NAUSEA/VOMITING NO VISION CHANGES NO PARESTHESIAS OR MOTOR DEFICITS. PT HAD COVID THE END OF 04/20/23, AND WAS DX WITH PNEUMONIA LAST WEEK SHE STILL HAS SOME COUGH BUT NO FEVER PCP: DR. SHAFER DUCT INSTALLER: DR. FINLEY Allergies and Home Medications Allergies Coded Allergies: Cephalexin Monohydrate (Verified Allergy, Unknown, has tolerated Ancef, 08/03/19) Iodinated Contrast Media (Verified Allergy, Unknown, 10/29/19) Penicillins (Verified Allergy, Unknown, Has tolerated Ancef, 08/03/19) adhesive tape (Verified Allergy, Unknown, 08/04/21) ciprofloxacin (Verified Allergy, Unknown, 02/25/21) iodine (Verified Allergy, Unknown, 07/08/19) linaclotide (Verified Allergy, Unknown, 07/28/19) lubiprostone (Verified Allergy, Unknown, 07/28/19) prednisolone (Verified Allergy, Unknown, 02/25/21) sulfamethoxazole (Verified Allergy, Unknown, 02/25/21) trimethoprim (Verified Allergy, Unknown, 02/25/21) venlafaxine HCl (Verified Allergy, Unknown, 07/08/19) Patient Home Medication List Home Medication List Reviewed: Yes Apixaban (Eliquis) 5 Mg Tablet, 5 MG PO BID Prescribed by: DAVINA TRONCOSO on 08/09/21 0800 Aspirin (Aspirin EC) 81 Mg Tablet.dr, 81 MG PO DAILY, (Reported) Entered as Reported by: ALESHIA CONNELLY on 10/31/20 1122 Atorvastatin Calcium (Atorvastatin Calcium) 20 Mg Tablet, 20 MG PO 1700, (Reported) Entered as Reported by: BRUNO GRIMALDO on 07/09/19 0910 Carboxymethylcellulose Sodium (Refresh Tears) 15 Ml Drops, 2 DROPS OU PRN PRN for DRY EYES, (Reported) Entered as Reported by: ALESHIA CONNELLY on 12/15/19 1311 Carvedilol (Carvedilol) 12.5 Mg Tablet, 12.5 MG PO BID Prescribed by: DAVINA TRONCOSO on 08/09/21 0800 Cholecalciferol (Vitamin D3) (Vitamin D3) 50 Mcg Tablet, 100 MCG PO DAILY, ( Reported) Entered as Reported by: ROB SOLARES on 06/21/21 1425 Citalopram Hydrobromide (Citalopram HBr) 10 Mg Tablet, 10 MG PO BID WITH MEALS, (Reported) Entered as Reported by: BRUNO GRIMALDO on 10/15/19 0954 Docusate Sodium (Docusate Sodium) 100 Mg Capsule, 100 MG PO BID PRN for CONSTIPATION-1ST LINE, (Reported) Entered as Reported by: ALESHIA CONNELLY on 08/02/21 1107 Estrogens Conjugated (Premarin) 0.45 Mg Tab, 0.45 MG PO DAILY, (Reported) Entered as Reported by: BRUNO GRIMALDO on 07/09/19 0910 Famotidine (Famotidine) 20 Mg Tablet, 20 MG PO BID WITH MEALS, (Reported) Entered as Reported by: BRUNO GRIMALDO on 10/15/19 0954 Furosemide (Furosemide) 40 Mg Tablet, 40 MG PO DAILY Prescribed by: DAVINA TRONCOSO on 08/09/21 0800 Lactobacillus Combo No.10 (Probiotic) 1 Each Capsule, 1 EACH PO DAILY, (Report ed) Entered as Reported by: ALESHIA CONNELLY on 12/15/19 1319 Losartan Potassium (Losartan Potassium) 50 Mg Tablet, 50 MG PO 1700, (Reported) Entered as Reported by: ALESHIA CONNELLY on 10/31/20 1122 Metformin HCl (Metformin HCl ER) 500 Mg Tab.er.24h, 500 MG PO 1700 W/MEAL, (Reported) Entered as Reported by: ALESHIA CONNELLY on 10/31/20 1122 Mirtazapine (Mirtazapine) 15 Mg Tablet, 15 MG PO HS, (Reported) Entered as Reported by: SHARMAINE SIMPSON on 07/04/21 1444 Nitrofurantoin Monohyd/M-Cryst (Macrobid 100 mg Capsule) 100 Mg Capsule, 1 TAB PO BID Prescribed by: KEVIN WASHBURN on 04/20/23 1053 Ondansetron (Ondansetron Odt) 4 Mg Tab.rapdis, 4 MG SL Q8H PRN for NAUSEA/VOMITING Prescribed by: KEVIN WASHBURN on 04/20/23 1053 Pantoprazole Sodium (Pantoprazole Sodium) 40 Mg Tablet.dr, 40 MG PO DAILY, (Reported) Entered as Reported by: MARGARET CARDOZA on 07/08/191999 Potassium Chloride (Klor-Con M20) 20 Meq Tab.er.prt, 20 MEQ PO DAILY@0700 Prescribed by: DAVINA TRONCOSO on 08/09/21 0800 Vit A/Vit C/Vit E/Zinc/Copper (Preservision Areds Tablet) 1 Each Tablet, 2 TAB PO DAILY, (Reported) Entered as Reported by: BRUNO GRIMALDO on 07/09/19 0910 Review of Systems Review of Systems Constitutional: no symptoms reported Eyes: No Symptoms Reported Ears, Nose, Mouth, Throat: no symptoms reported Respiratory: no symptoms reported Cardiovascular: no symptoms reported Gastrointestinal: no symptoms reported Genitourinary: no symptoms reported Musculoskeletal: see HPI Skin: no symptoms reported Psychiatric/Neurological: See HPI, Headache Past Yrysjzy-Alejca-Bchhyy Hx Patient Social History Tobacco Use?: No Substance use?: No Alcohol Use?: No Immunizations Up To Date Tetanus Booster (TDap): Unknown First/Initial COVID19 Vaccinat: 12/20 Second COVID19 Vaccination Esa: YES Third COVID19 Vaccination Date: YES Seasonal Allergies Seasonal Allergies: Yes Past Medical History Surgery/Hospitalization HX: 07/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, DM, AFIB, HYST, APPY, CATARACT, HIATAL HERNIA, Surgeries: Yes (R KNEE REPLACEMENT;C-SPINE SURGERY;APPY;CATARACTS; HIATAL HERNIA;TISH;HYST) Abdominal, Appendectomy, Bladder Surgery, Cardiac, Gallbladder, Hysterectomy, Joint Replacement, Orthopedic, Vascular Surgery Respiratory: Yes Pneumonia, COPD Currently Using CPAP: No Currently Using BIPAP: No Cardiac: Yes (CHF) Atrial Fibrillation, High Cholesterol, Hypertension, Valvular Heart Disease Neurological: No [employer]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 Genitourinary: Yes Bladder Infection Gastrointestinal: Yes Gastroesophageal Reflux, Gastrointestinal Bleed, Chronic Constipation, Hiatal Hernia Musculoskeletal: Yes (RIGHT KNEE REPLACEMENT) Arthritis, Rheumatoid Arthritis Endocrine: Yes Diabetes, Non-Insulin dep HEENT: Yes Cataract Loss of Vision: Denies Hearing Impairment: Bilateral Hearing Aide Cancer: Yes Lymphoma Did You Recieve Any Treatments: Yes What Type of Treatment Did You: Chemotherapy Psychosocial: Yes Anxiety, Depression Integumentary: No Blood Disorders: No Adverse Reaction/Blood Tranf: No Family Medical History Cancer, Hypertension Physical Exam Vital Signs Vital Signs - First Documented Capillary Refill : Height, Weight, BMI Height: '" Weight: lbs. oz. kg; 24.00 BMI Method:Estimated General Appearance: WD/WN, no apparent distress HEENT: PERRL/EOMI, normal ENT inspection, other (TENDERNESS TO BACK OF HEAD) Neck: tender lateral, tender midline Cardiovascular: no edema, no JVD, diastolic murmur (1/ MURMUR), irregularly irregular Respiratory: normal breath sounds, no respiratory distress, no accessory muscle use, other (DIFFUSE UPPER CHEST TENDERNESS) Peripheral Pulses: 1+ Dorsalis Pedis (R), 1+ Left Dors-Pedis (L) Gastrointestinal: non tender, soft Back: no CVA tenderness, no vertebral tenderness, CVA tenderness (R), CVA tenderness (L), vertebral tenderness (DIFFUSE TENDERNESS, MORE TENDER IN THORACIC AREA), other (DIFFUSE TENDERNESS ACROSS UPPER BACK. ) Extremities: normal range of motion, no pedal edema, no calf tenderness, normal capillary refill, other (MOST TENDER TO RIGHT KNEE, BUT ALSO TENDER FROM RIGHT HIP TO RIGHT ANKLE ) Neurologic/Psychiatric: ediphone operator II-XII nml as tested, no motor/sensory deficits, alert, normal mood/affect, oriented x 3 Skin: normal color, warm/dry, other (NO EXTERNAL EVIDENCE OF TRAUMA ANYWHERE) Progress/Results/Core Measures Results/Orders Lab Results Laboratory Tests Test 05/14/23 18:45 Range/Units White Blood Count 8.9 4.3-11.0 10^3/uL Red Blood Count 3.90 3.80-5.11 10^6/uL Hemoglobin 12.3 11.5-16.0 g/dL Hematocrit 38 35-52 % Mean Corpuscular Volume 97 80-99 fL Mean Corpuscular Hemoglobin 32 25-34 pg Mean Corpuscular Hemoglobin Concent 33 32-36 g/dL Red Cell Distribution Width 14.7 H 10.0-14.5 % Platelet Count 293 130-400 10^3/uL Mean Platelet Volume 9.4 9.0-12.2 fL Immature Granulocyte % (Auto) 2 % Neutrophils (%) (Auto) 70 42-75 % Lymphocytes (%) (Auto) 16 12-44 % Monocytes (%) (Auto) 12 0-12 % Eosinophils (%) (Auto) 0 0-10 % Basophils (%) (Auto) 0 0-10 % Neutrophils # (Auto) 6.2 1.8-7.8 10^3/uL Lymphocytes # (Auto) 1.4 1.0-4.0 10^3/uL Monocytes # (Auto) 1.1 H 0.0-1.0 10^3/uL Eosinophils # (Auto) 0.0 0.0-0.3 10^3/uL Basophils # (Auto) 0.0 0.0-0.1 10^3/uL Immature Granulocyte # (Auto) 0.2 H 0.0-0.1 10^3/uL Prothrombin Time 18.1 H 12.2-14.7 SEC INR Comment 1.5 H 0.8-1.4 Activated Partial Thromboplast Time 32 24-35 SEC Sodium Level 140 135-145 MMOL/L Potassium Level 3.8 3.6-5.0 MMOL/L Chloride Level 105 98-107 MMOL/L Carbon Dioxide Level 18 L 21-32 MMOL/L Anion Gap 17 H 5-14 MMOL/L Blood Urea Nitrogen 34 H 7-18 MG/DL Creatinine 1.00 0.60-1.30 MG/DL Estimat Glomerular Filtration Rate 57 BUN/Creatinine Ratio 34 Glucose Level 120 H 70-105 MG/DL Calcium Level 9.2 8.5-10.1 MG/DL Corrected Calcium 9.0 8.5-10.1 MG/DL Magnesium Level 2.0 1.6-2.4 MG/DL Total Bilirubin 0.5 0.1-1.0 MG/DL Aspartate Amino Transf (AST/SGOT) 24 5-34 U/L Alanine Aminotransferase (ALT/SGPT) 17 0-55 U/L Alkaline Phosphatase 148 H 40-136 U/L Total Protein 8.0 6.4-8.2 GM/DL Albumin 4.2 3.2-4.5 GM/DL My Orders Orders - ZAKI RUSH Ed Iv/Invasive Line Start (05/14/23 18:25) Monitor-Rhythm Ecg Trace Only (05/14/23 18:25) Ct Head/Cervical Spine Wo (05/14/23 18:25) Ct Thoracic/Lumbar Spine Wo (05/14/23 18:25) Chest 1 View, Ap/Pa Only (05/14/23 18:25) Knee, Right, 3 Views (05/14/23 18:25) Pelvis 1 To 2 Views (05/14/23 18:25) Cbc With Automated Diff (05/14/23 18:25) Comprehensive Metabolic Panel (05/14/23 18:25) Magnesium (05/14/23 18:25) Protime With Inr (05/14/23 18:25) Partial Thromboplastin Time (05/14/23 18:25) Ct Chest/Abdomen/Pelvis Wo (05/14/23 18:34) Femur, Right, 2 Views (05/14/23 18:42) Tibia/Fibula, Right, 2 Views (05/14/23 18:42) Cervical Collar (05/14/23 18:51) Vital Signs/I&O 05/14/23 05/14/23 18:29 18:29 Temp 35.6 35.6 Pulse 70 70 Resp 18 18 B/P (MAP) 199/89 (125) 199/89 (125) Pulse Ox 98 98 Progress Progress Note : Progress Note PLACED IN CERVICAL COLLAR ON ARRIVAL VITALS ON ARRIVAL: TEMP 35.6, HR 70, RR 18, BP 199/89, O2 SAT 98% ON ROOM AIR LABS: -CBC NORMAL -CMP BUN MILDLY ELEVATED, OTHERWISE UNREMARKABLE -PT/PTT/INR 18.1/33/[address] SCANS SHOW NO ACUTE TRAUMATIC INJURY OR ACUTE PROCESS DISCUSSED TEST RESULTS, ANTICIPATED COURSE, SYMPTOMATIC TREATMENT, NEED FOR FOLLOW UP--PT HAS AN APPOINTMENT WITH DR. SHAFER ON FRIDAY, AND RETURN PRECAUTIONS REVIEWED PRIOR RECORDS, INCLUDING ER VISITS, ADMITS/H&P'S/CONSULTS/DISCHARGE SUMMARIES, TESTS/PROCEDURES Diagnostic Imaging Comments CT SCANS--ALL PER RADIOLOGIST REPORTS AT 1929 CT HEAD/CERVICAL SPINE- FINDINGS: The CT of the head demonstrates age-related global volume loss. There are no CT findings of acute intracranial hemorrhage. There is no evidence of an abnormal extra-axial collection. There is no mass effect or shift. There is no hydrocephalus. There are some scattered microvascular changes present in the subcortical white matter. There are no findings of territorial loss of saenz-white differentiation or edema. There are no CT findings of an acute calvarial fracture. The mastoids are clear. There are postsurgical changes within the paranasal sinuses. The orbital contents are unremarkable. Cervical spine again demonstrates extensive cervical fusion changes with an anterior cervical discectomy and fusion which have been performed from C3 through C7. The left-sided screw at C7 is abnormally proud but this is unchanged. There is no identified screw fracture. Cervical spinal alignment is stable. There are normal relationships of the cranial cervical junction. The facets are normally aligned. There is no facet joint or disc space widening. There are no CT findings of an acute cervical spine fracture. The lung apices are clear. There is no acute soft tissue abnormality evident within the neck. IMPRESSION: 1. Age-related global volume loss with background microvascular changes. There are no CT findings of hemorrhage or of an acute intracranial abnormality. 2. No calvarial fracture 3. Stable postsurgical and degenerative features within the cervical spine without findings of cervical spine fracture or traumatic malalignment. CT THORACIC/LUMBAR SPINE-- FINDINGS: Alignment of the thoracic spine is normal. There is mild exaggeration of the thoracic kyphosis. There are multilevel degenerative endplate changes present within the thoracic spine, but no CT findings of an acute thoracic spine fracture. There is no evidence of a marrow replacing lesion. There are no CT findings of high-grade thoracic canal stenosis. Within the lumbar spine, there are advanced multilevel degenerative endplate changes with multiple vacuum disks. There is a dextroscoliosis. The lateral alignment is normal. There is chronic superior endplate wedging of L1. There is no identified acute lumbar fracture. Within the lumbar spine, the central canal demonstrates multiple levels of lrem-kj-kbvtlxcu canal stenosis including L2-L3, L3-L4, and L4-L5. There is high-grade at least moderate narrowing of both of the neural foramina at the L4-L5 and L5-S1 levels. The paraspinal soft tissues demonstrate no acute process. There are atherosclerotic calcifications within a normal-caliber aorta. The kidneys appear nonobstructed. There is no posterior rib fracture identified. The lungs demonstrate no findings of pneumonia, contusion, pleural collection, or pneumothorax. IMPRESSION: 1. Background degenerative features within the thoracic and lumbar spine as described. There are no findings of an acute thoracic or lumbar fracture or evidence of traumatic malalignment. 2. No significant thoracic canal stenosis. No findings of high-grade canal stenosis within the lumbar spine. Most advanced foraminal stenoses appear at the L4-L5 and L5-S1 levels. CT CHEST/ABDOMEN/PELVIS-- FINDINGS: There is partial visualization of the patient's cervical fusion construct. The lungs demonstrate no finding of a contusion or pneumonia. There is no pleural effusion or finding of a pneumothorax. There is atherosclerotic plaquing within the aorta. There is coronary calcifications. There is four-chamber cardiomegaly. There is no pericardial collection or finding of a mediastinal hematoma. There is no glenohumeral joint dislocation. There is no finding of a scapular or clavicular fracture. The sternum and manubrium are intact. There are no acute rib fractures. The liver demonstrates no evidence of perihepatic fluid or blood. There is no definable laceration. The spleen is unremarkable. There is no adrenal hematoma. The kidneys are nonobstructed. There is no perinephric fat stranding. The pancreas is normal. Stomach is mildly distended without gastric wall thickening. There is no abnormal small or large bowel dilation or bowel thickening. There is moderate stool within the colon. There is no pelvic free fluid or hemoperitoneum. Bladder nondistended. The patient is status post prior hysterectomy. There are atherosclerotic calcifications within a normal caliber aorta. There is no acute pelvic fracture. There are background features within the spine without acute abnormality. IMPRESSION: 1. No CT evidence of an acute traumatic injury within the chest, abdomen or pelvis. 2. Lungs clear without pleural collection, contusion or pneumothorax. 3. Cardiomegaly, coronary artery disease and atherosclerosis. 4. No evidence of free fluid or hemoperitoneum. 5. No finding of an acute inflammatory or obstructive process. 6. No identified fracture. CXR--PER RADIOLOGIST REPORT AT 1930 FINDINGS: There is cardiomegaly, but no evidence of edema or failure. Lungs are clear. There is no pleural collection. There is no pneumothorax. There is no widening of the mediastinum. There is no identified fracture. IMPRESSION: 1. Cardiomegaly without current failure or edema. 2. Lungs are clear. 3. No findings of a fracture. PELVIS XRAY--PER RADIOLOGIST REPORT AT 193 FINDINGS: There are no findings of hip dislocation. There is no pelvic diastasis. The pelvic ring is intact. There is no proximal femoral fracture. There is moderate hip joint osteoarthritic joint space narrowing. IMPRESSION: 1. No findings of pelvic fracture, diastasis, or hip dislocation. There is no proximal femoral fracture. RIGHT FEMUR--PER RADIOLOGIST REPORT AT 194 FINDINGS: There is no hip dislocation. There is no proximal femoral fracture. There is no femoral head collapse. There is moderate right hip osteoarthritic joint space narrowing. There is no femoral shaft fracture. There has been a prior right knee arthroplasty. Note is made of atherosclerosis. IMPRESSION: 1. No findings of hip dislocation, femoral fracture or malalignment. RIGHT KNEE--PER RADIOLOGIST REPORT AT 193 FINDINGS: The patient is status post a previous right knee arthroplasty. Knee alignment is normal. There is no fracture. There is no knee joint effusion. Note is made of advanced atherosclerotic IMPRESSION: 1. Prior right knee arthroplasty. No findings of malalignment, fracture or joint effusion. RIGHT TIB-FIB--PER RADIOLOGIST REPORT AT 193 FINDINGS: The patient is status post a previous right knee arthroplasty. There is no periprosthetic fracture. There is no fracture of the tibia or the fibula. Ankle alignment is unremarkable. The visualized portion of the foot is normal. Note is made of atherosclerosis. IMPRESSION:. Prior right knee arthroplasty. No findings of a tibial or fibular fracture. Reviewed: Reviewed by Me Departure Impression Primary Impression: Unwitnessed fall Additional Impressions: Fall from standing Closed head injury without loss of consciousness Neck strain Strain of back Right knee pain HTN (hypertension) Disposition: 01 HOME, SELF-CARE Condition: Stable Departure-Patient Inst. Decision time for Depature: 19:50 Referrals: LITZY SHAFER MD (PCP/Family) Primary Care Physician Patient Instructions: Knee Pain ED, Minor Head Injury, Adult ED, Neck Pain ED, Preventing Falls ED, Upper Back Pain (DC) Add. Discharge Instructions: HOME, REST ACTIVITIES TOLERATED INCREASE YOUR FLUID INTAKE TYLENOL NEEDED FOR PAIN KEEP YOUR APPOINTMENT WITH DR. SHAFER ON FRIDAY, RETURN TO ER IF WORSE All discharge instructions reviewed with patient and/or family. Voiced understanding. ZAKI RUSH DO May 14, 2023 18:34
[2023-05-14 18:53] LABS: BASOPHILS % (AUTO) 0 % (0-10); EOSINOPHILS % (AUTO) 0 % (0-10); HEMATOCRIT 38 % (35-52); HEMOGLOBIN 12.3 g/dL (11.5-16.0); LYMPHOCYTES # (AUTO) 1.4 10^3/uL (1.0-4.0); LYMPHOCYTES % (AUTO) 16 % (12-44); MEAN CORPUSCULAR HEMOGLOBIN 32 pg (25-34); MEAN CORPUSCULAR HGB CONC 33 g/dL (32-36); MEAN CORPUSCULAR VOLUME 97 fL (80-99); MEAN PLATELET VOLUME 9.4 fL (9.0-12.2); MONOCYTES # (AUTO) 1.1 10^3/uL (0.0-1.0); MONOCYTES % (AUTO) 12 % (0-12); NEUTROPHILS # (AUTO) 6.2 10^3/uL (1.8-7.8); NEUTROPHILS % (AUTO) 70 % (42-75); PLATELET COUNT 293 10^3/uL (130-400); WHITE BLOOD COUNT 8.9 10^3/uL (4.3-11.0)
[2023-05-14 19:10] LABS: ALBUMIN 4.2 GM/DL (3.2-4.5); POTASSIUM 3.8 MMOL/L (3.6-5.0)
[2023-05-14 19:12] LABS: CALCIUM 9.2 MG/DL (8.5-10.1)
[2023-05-14 19:14] LABS: BILIRUBIN,TOTAL 0.5 MG/DL (0.1-1.0)
--- NOTE | 2023-05-14 19:17 | Diagnostic Imaging Report ---
PROCEDURE: CT head and CT cervical spine without contrast. TECHNIQUE: Multiple contiguous axial images were obtained through the brain and cervical spine without the use of intravenous contrast. Sagittal and coronal reformations through the cervical spine were then performed. Auto Exposure Controls were utilized during the CT exam to meet ALARA standards for radiation dose reduction. INDICATION: Head trauma. Head and neck pain. Fall. COMPARISON: 10/30/2020. FINDINGS: The CT of the head demonstrates age-related global volume loss. There are no CT findings of acute intracranial hemorrhage. There is no evidence of an abnormal extra-axial collection. There is no mass effect or shift. There is no hydrocephalus. There are some scattered microvascular changes present in the subcortical white matter. There are no findings of territorial loss of saenz-white differentiation or edema. There are no CT findings of an acute calvarial fracture. The mastoids are clear. There are postsurgical changes within the paranasal sinuses. The orbital contents are unremarkable. Cervical spine again demonstrates extensive cervical fusion changes with an anterior cervical discectomy and fusion which have been performed from C3 through C7. The left-sided screw at C7 is abnormally proud but this is unchanged. There is no identified screw fracture. Cervical spinal alignment is stable. There are normal relationships of the cranial cervical junction. The facets are normally aligned. There is no facet joint or disc space widening. There are no CT findings of an acute cervical spine fracture. The lung apices are clear. There is no acute soft tissue abnormality evident within the neck. IMPRESSION: 1. Age-related global volume loss with background microvascular changes. There are no CT findings of hemorrhage or of an acute intracranial abnormality. 2. No calvarial fracture 3. Stable postsurgical and degenerative features within the cervical spine without findings of cervical spine fracture or traumatic malalignment. Dictated by: Dictated on workstation # [id number]
--- NOTE | 2023-05-14 19:20 | Diagnostic Imaging Report ---
PROCEDURE: CT thoracic and lumbar spine without contrast. TECHNIQUE: Multiple contiguous axial images were obtained through the thoracic and lumbar spine without the use of intravenous contrast. Sagittal and coronal reformations were then performed. All CT scans use one or more of the following dose optimizing techniques: Automated exposure control, MA and/or KvP adjustment based on a patient size and exam type, or iterative reconstruction. INDICATION: Back pain. Fall. COMPARISON: CT chest, abdomen, and pelvis 07/30/2019. FINDINGS: Alignment of the thoracic spine is normal. There is mild exaggeration of the thoracic kyphosis. There are multilevel degenerative endplate changes present within the thoracic spine, but no CT findings of an acute thoracic spine fracture. There is no evidence of a marrow replacing lesion. There are no CT findings of high-grade thoracic canal stenosis. Within the lumbar spine, there are advanced multilevel degenerative endplate changes with multiple vacuum disks. There is a dextroscoliosis. The lateral alignment is normal. There is chronic superior endplate wedging of L1. There is no identified acute lumbar fracture. Within the lumbar spine, the central canal demonstrates multiple levels of heyc-iv-kbujonjd canal stenosis including L2-L3, L3-L4, and L4-L5. There is high-grade at least moderate narrowing of both of the neural foramina at the L4-L5 and L5-S1 levels. The paraspinal soft tissues demonstrate no acute process. There are atherosclerotic calcifications within a normal-caliber aorta. The kidneys appear nonobstructed. There is no posterior rib fracture identified. The lungs demonstrate no findings of pneumonia, contusion, pleural collection, or pneumothorax. IMPRESSION: 1. Background degenerative features within the thoracic and lumbar spine as described. There are no findings of an acute thoracic or lumbar fracture or evidence of traumatic malalignment. 2. No significant thoracic canal stenosis. No findings of high-grade canal stenosis within the lumbar spine. Most advanced foraminal stenoses appear at the L4-L5 and L5-S1 levels. Dictated by: Dictated on workstation # [id number]
--- NOTE | 2023-05-14 19:21 | Diagnostic Imaging Report ---
INDICATION: Fall. Trauma. FINDINGS: There is cardiomegaly, but no evidence of edema or failure. Lungs are clear. There is no pleural collection. There is no pneumothorax. There is no widening of the mediastinum. There is no identified fracture. IMPRESSION: 1. Cardiomegaly without current failure or edema. 2. Lungs are clear. 3. No findings of a fracture. Dictated by: Dictated on workstation # [id number]
--- NOTE | 2023-05-14 19:22 | Diagnostic Imaging Report ---
INDICATION: Trauma. Pain. Fall. FINDINGS: There are no findings of hip dislocation. There is no pelvic diastasis. The pelvic ring is intact. There is no proximal femoral fracture. There is moderate hip joint osteoarthritic joint space narrowing. IMPRESSION: 1. No findings of pelvic fracture, diastasis, or hip dislocation. There is no proximal femoral fracture. Dictated by: Dictated on workstation # [id number]
--- NOTE | 2023-05-14 19:24 | Diagnostic Imaging Report ---
PROCEDURE: CT chest, abdomen, and pelvis without contrast. TECHNIQUE: Multiple contiguous axial images were obtained through the chest, abdomen, and pelvis without the use of intravenous contrast. Auto Exposure Controls were utilized during the CT exam to meet ALARA standards for radiation dose reduction. INDICATION: Back pain. Fall. Trauma. COMPARISON: CT thoracic and lumbar spine performed the same day. FINDINGS: There is partial visualization of the patient's cervical fusion construct. The lungs demonstrate no finding of a contusion or pneumonia. There is no pleural effusion or finding of a pneumothorax. There is atherosclerotic plaquing within the aorta. There is coronary calcifications. There is four-chamber cardiomegaly. There is no pericardial collection or finding of a mediastinal hematoma. There is no glenohumeral joint dislocation. There is no finding of a scapular or clavicular fracture. The sternum and manubrium are intact. There are no acute rib fractures. The liver demonstrates no evidence of perihepatic fluid or blood. There is no definable laceration. The spleen is unremarkable. There is no adrenal hematoma. The kidneys are nonobstructed. There is no perinephric fat stranding. The pancreas is normal. Stomach is mildly distended without gastric wall thickening. There is no abnormal small or large bowel dilation or bowel thickening. There is moderate stool within the colon. There is no pelvic free fluid or hemoperitoneum. Bladder nondistended. The patient is status post prior hysterectomy. There are atherosclerotic calcifications within a normal caliber aorta. There is no acute pelvic fracture. There are background features within the spine without acute abnormality. IMPRESSION: 1. No CT evidence of an acute traumatic injury within the chest, abdomen or pelvis. 2. Lungs clear without pleural collection, contusion or pneumothorax. 3. Cardiomegaly, coronary artery disease and atherosclerosis. 4. No evidence of free fluid or hemoperitoneum. 5. No finding of an acute inflammatory or obstructive process. 6. No identified fracture. Dictated by: Dictated on workstation # [id number]
[2023-05-14 19:27] LABS: INR 1.5 (0.8-1.4); PROTHROMBIN TIME PATIENT 18.1 SEC (12.2-14.7)
--- NOTE | 2023-05-14 19:29 | Diagnostic Imaging Report ---
Indication: Knee pain. Fall. COMPARISON: 07/27/2021 FINDINGS: The patient is status post a previous right knee arthroplasty. Knee alignment is normal. There is no fracture. There is no knee joint effusion. Note is made of advanced atherosclerotic IMPRESSION: 1. Prior right knee arthroplasty. No findings of malalignment, fracture or joint effusion. Dictated by: Dictated on workstation # [id number]
--- NOTE | 2023-05-14 19:36 | Diagnostic Imaging Report ---
INDICATION: Right leg pain. Fall. FINDINGS: The patient is status post a previous right knee arthroplasty. There is no periprosthetic fracture. There is no fracture of the tibia or the fibula. Ankle alignment is unremarkable. The visualized portion of the foot is normal. Note is made of atherosclerosis. IMPRESSION: 1. Prior right knee arthroplasty. No findings of a tibial or fibular fracture. Dictated by: Dictated on workstation # [id number]
--- NOTE | 2023-05-14 19:41 | Diagnostic Imaging Report ---
INDICATION: Fall. Pain. FINDINGS: There is no hip dislocation. There is no proximal femoral fracture. There is no femoral head collapse. There is moderate right hip osteoarthritic joint space narrowing. There is no femoral shaft fracture. There has been a prior right knee arthroplasty. Note is made of atherosclerosis. IMPRESSION: 1. No findings of hip dislocation, femoral fracture or malalignment. Dictated by: Dictated on workstation # [id number]
[2023-05-14 20:09] VITALS: BP 186/69
== END 2023-05-14 20:09 | disposition home or self-care (01) ==
LOC: EDUNIT# 18:15 → ER 18:18
DX: S09.90XA Unspecified injury of head, initial encounter (principal); S16.1XXA Strain of muscle, fascia and tendon at neck level, initial encounter; S39.012A Strain of muscle, fascia and tendon of lower back, initial encounter; M25.561 Pain in right knee; I10 Essential (primary) hypertension; Z96.651 Presence of right artificial knee joint; Z86.16 Personal history of COVID-19; W07.XXXA Fall from chair, initial encounter; W22.8XXA Striking against or struck by other objects, initial encounter
CPT/HCPCS: 36415; 70450; 71045; 71250; 72125; 72128; 72131; 72170; 73552; 73562; 73590; 74176; 80053; 83735; 85025; 85610; 85730; 93041

== ENCOUNTER → 2023-06-10 | Outpatient (CLI) | payer MEDICARE ==
[~2023-06-10] MED LIST changes: -PREG50CA65 PO; +PREG50CA66 PO
--- NOTE | 2023-06-10 15:42 | Diagnostic Imaging Report ---
INDICATION: Screening. EXAMINATION: Bilateral digital 2D and 3D screening with CAD. COMPARISON: December 2021, November 2020, and September 2019. BREAST DENSITY: 3. FINDINGS: No breast mass, spiculated lesion, architectural distortion, or suspicious calcifications. No changes to suggest malignancy. Stable benign calcifications, unchanged. IMPRESSION: Negative. ACR BI-RADS Category 2: Benign findings. Result letter will be mailed to the patient. Note: At least 10% of breast cancer is not imaged by mammography. Dictated by: Dictated on workstation # [id number]
== END ==
LOC: RAD 13:12
PROVIDERS: ATTEND Internal Medicine
DX: Z12.31 Encounter for screening mammogram for malignant neoplasm of breast (principal)
CPT/HCPCS: 77063; 77067

== ENCOUNTER 2023-07-18 14:09 | Emergency (ER) | payer MEDICARE, OTHER ==
[~2023-07-18] VITALS: Ht 162 cm; Wt 63.5 kg
--- NOTE | 2023-07-18 14:48 | ED Neurological Problem ---
General Chief Complaint: Head/Cervical Problems Stated Complaint: DIZZY/HEADACHES/WEAK/SOB Nursing Triage Note: PT STATES HEADACHE FOR 2 WEEKS, BLURRED VISION STARTED YESTERDAY, NAUSEA, HX OF UTI'S Source: patient, family Exam Limitations: no limitations History of Present Illness Date Seen by Provider: Jul 18, 2023 Time Seen by Provider: 14:19 Initial Comments Veronica Hawkins is a delightful 78-year-old woman who presents to the emergency room with several complaints including headache in the occipital region for about 2 weeks, intermittent blurry vision for several days, intermittent diplopia today, generalized weakness, nausea without vomiting, dizziness described as a vertiginous or spinning sensation, difficulty ambulating today, and occasional shortness of breath. She denies any cough, fever, or chest pain. Her dizziness and vision change are the most concerning. She takes Eliquis for stroke prophylaxis and atrial fibrillation. She has a history of lymphoma which is reportedly in remission. Her primary care provider is Dr. Shafer. Her power shovel operator is Dr. Davis. Her oncologist is Dr. Payne. Her manager assurance is Dr. Duckworth. Her structural rigger is Dr. Martin in [place]. She is accompanied by her daughter or granddaughter. Allergies and Home Medications Allergies Coded Allergies: Cephalexin Monohydrate (Verified Allergy, Unknown, has tolerated Ancef, 08/03/19) Iodinated Contrast Media (Verified Allergy, Unknown, 10/29/19) Penicillins (Verified Allergy, Unknown, Has tolerated Ancef, 08/03/19) adhesive tape (Verified Allergy, Unknown, 08/04/21) ciprofloxacin (Verified Allergy, Unknown, 02/25/21) iodine (Verified Allergy, Unknown, 07/08/19) linaclotide (Verified Allergy, Unknown, 07/28/19) lubiprostone (Verified Allergy, Unknown, 07/28/19) sulfamethoxazole (Verified Allergy, Unknown, 02/25/21) trimethoprim (Verified Allergy, Unknown, 02/25/21) venlafaxine HCl (Verified Allergy, Unknown, 07/08/19) prednisolone (Verified Adverse Reaction, Unknown, Cold flashes, 07/18/23) Patient Home Medication List Home Medication List Reviewed: Yes Apixaban (Eliquis) 5 Mg Tablet, 5 MG PO BID Prescribed by: DAVINA TRONCOSO on 08/09/21 0800 Aspirin (Aspirin EC) 81 Mg Tablet.dr, 81 MG PO DAILY, (Reported) Entered as Reported by: ALESHIA CONNELLY on 10/31/20 1122 Atorvastatin Calcium (Atorvastatin Calcium) 20 Mg Tablet, 20 MG PO 1700, (Repo rted) Entered as Reported by: BRUNO GRIMALDO on 07/09/19 0910 Carboxymethylcellulose Sodium (Refresh Tears) 15 Ml Drops, 2 DROPS OU PRN PRN for DRY EYES, (Reported) Entered as Reported by: ALESHIA CONNELLY on 12/15/19 1311 Carvedilol (Carvedilol) 12.5 Mg Tablet, 12.5 MG PO BID Prescribed by: DAVINA TRONCOSO on 08/09/21 0800 Cefdinir (Cefdinir) 300 Mg Capsule, 300 MG PO BID Prescribed by: ARIAN BURDEN on 07/18/231945 Cholecalciferol (Vitamin D3) (Vitamin D3) 50 Mcg Tablet, 100 MCG PO DAILY, (Rep orted) Entered as Reported by: ROB SOLARES on 06/21/21 1425 Citalopram Hydrobromide (Citalopram HBr) 10 Mg Tablet, 10 MG PO BID WITH MEALS, (Reported) Entered as Reported by: BRUNO GRIMALDO on 10/15/19 0954 Dexamethasone (Dexamethasone) 4 Mg Tablet, 4 MG PO TIDWM Prescribed by: ARIAN BURDEN on 07/18/231945 Docusate Sodium (Docusate Sodium) 100 Mg Capsule, 100 MG PO BID PRN for CONSTIPATION-1ST LINE, (Reported) Entered as Reported by: ALESHIA CONNELLY on 08/02/21 1107 Estrogens Conjugated (Premarin) 0.45 Mg Tab, 0.45 MG PO DAILY, (Reported) Entered as Reported by: BRUNO GRIMALDO on 07/09/19 0910 Famotidine (Famotidine) 20 Mg Tablet, 20 MG PO BID WITH MEALS, (Reported) Entered as Reported by: BRUNO GRIMALDO on 10/15/19 0954 Furosemide (Furosemide) 40 Mg Tablet, 40 MG PO DAILY Prescribed by: DAVINA TRONCOSO on 08/09/21 0800 Hydrocodone/Acetaminophen (Hydrocodone-Acetamin 5-325 mg) 5 Mg-325 Mg Tablet, 1 TAB PO Q6H PRN for PAIN-MODERATE TO SEVERE Prescribed by: ARIAN BURDEN on 07/18/231946 Lactobacillus Combo No.10 (Probiotic) 1 Each Capsule, 1 EACH PO DAILY, (Reported) Entered as Reported by: ALESHIA CONNELLY on 12/15/19 1319 Losartan Potassium (Losartan Potassium) 50 Mg Tablet, 50 MG PO 1700, (Reported) Entered as Reported by: ALESHIA CONNELLY on 10/31/20 1122 Metformin HCl (Metformin HCl ER) 500 Mg Tab.er.24h, 500 MG PO 1700 W/MEAL, (Reported) Entered as Reported by: ALESHIA CONNELLY on 10/31/20 112 Mirtazapine (Mirtazapine) 15 Mg Tablet, 15 MG PO HS, (Reported) Entered as Reported by: SHARMAINE SIMPSON on 07/04/21 1444 Nitrofurantoin Monohyd/M-Cryst (Macrobid 100 mg Capsule) 100 Mg Capsule, 1 TAB PO BID Prescribed by: KEVIN WASHBURN on 04/20/23 1053 Ondansetron (Ondansetron Odt) 4 Mg Tab.rapdis, 4 MG SL Q8H PRN for NAUSEA/VOMITING Prescribed by: KEVIN WASHBURN on 04/20/23 1053 Ondansetron (Ondansetron Odt) 4 Mg Tab.rapdis, 4 MG SL Q4H PRN for NAUSEA/VOMITING Prescribed by: ARIAN BURDEN on 07/18/231945 Pantoprazole Sodium (Pantoprazole Sodium) 40 Mg Tablet.dr, 40 MG PO DAILY, (Reported) Entered as Reported by: MARGARET CARDOZA on 07/08/191999 Potassium Chloride (Klor-Con M20) 20 Meq Tab.er.prt, 20 MEQ PO DAILY@0700 Prescribed by: DAVINA TRONCOSO on 08/09/21 0800 Vit A/Vit C/Vit E/Zinc/Copper (Preservision Areds Tablet) 1 Each Tablet, 2 TAB PO DAILY, (Reported) Entered as Reported by: BRUNO GRIMALDO on 07/09/19 0910 Review of Systems Review of Systems Constitutional: no symptoms reported Eyes: See HPI Ears, Nose, Mouth, Throat: no symptoms reported Respiratory: see HPI Cardiovascular: see HPI Gastrointestinal: see HPI Genitourinary: no symptoms reported Musculoskeletal: no symptoms reported Skin: no symptoms reported Psychiatric/Neurological: See HPI Endocrine: No Symptoms Reported Hematologic/Lymphatic: No Symptoms Reported Past Jhlvmfw-Gkyljy-Fuevzh Hx Patient Social History Tobacco Use?: No Substance use?: No Alcohol Use?: No Immunizations Up To Date Tetanus Booster (TDap): Unknown First/Initial COVID19 Vaccinat: 12/20 Second COVID19 Vaccination Esa: YES Third COVID19 Vaccination Date: YES Seasonal Allergies Seasonal Allergies: Yes Past Medical History Surgery/Hospitalization HX: 07/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, DM, AFIB, HYST, APPY, CATARACT, HIATAL HERNIA, CHF Surgeries: Yes (R KNEE REPLACEMENT;C-SPINE SURGERY;APPY;CATARACTS; HIATAL HERNIA;TISH;HYST) Abdominal, Appendectomy, Bladder Surgery, Cardiac, Gallbladder, Hysterectomy, Joint Replacement, Orthopedic, Vascular Surgery Respiratory: Yes Pneumonia, COPD Currently Using CPAP: No Currently Using BIPAP: No Cardiac: Yes (CHF) Atrial Fibrillation, High Cholesterol, Hypertension, Valvular Heart Disease Neurological: No MOLD INSPECTOR History: Menopausal Genitourinary: Yes Bladder Infection Gastrointestinal: Yes Gastroesophageal Reflux, Gastrointestinal Bleed, Chronic Constipation, Hiatal Hernia Musculoskeletal: Yes (RIGHT KNEE REPLACEMENT) Arthritis, Rheumatoid Arthritis Endocrine: Yes Diabetes, Non-Insulin dep HEENT: Yes Cataract Loss of Vision: Denies Hearing Impairment: Bilateral Hearing Aide Cancer: Yes Lymphoma Did You Recieve Any Treatments: Yes What Type of Treatment Did You: Chemotherapy Psychosocial: Yes Anxiety, Depression Integumentary: No Blood Disorders: No Adverse Reaction/Blood Tranf: No Family Medical History Cancer, Hypertension Physical Exam Vital Signs Vital Signs - First Documented 07/18/23 14:17 Temp 36.6 Pulse 52 Resp 18 B/P (MAP) 168/72 (104) Pulse Ox 96 O2 Delivery Room Air Capillary Refill : Less Than 3 Seconds Height, Weight, BMI Height: '" Weight: lbs. oz. kg; 24.00 BMI Method:Estimated General Appearance: WD/WN, no apparent distress HEENT: PERRL/EOMI, normal ENT inspection, TMs normal, other (Nystagmus with forward and leftward gaze. No nystagmus with rightward gaze. Nystagmus per sists even when head is stationary. It is not fatiguing.) Neck: normal inspection Respiratory: lungs clear, normal breath sounds, no respiratory distress Cardiovascular: no murmur, irregularly irregular Gastrointestinal: non tender, soft Extremities: swelling Neurologic/Psychiatric: no motor/sensory deficits, alert, normal mood/affect, oriented x 3, other (No diplopia at this time. Nystagmus with leftward and forward gaze.) Crainal Nerves: normal hearing, normal speech Coordination/Gait: normal finger to nose Motor/Sensory: no motor deficit, no sensory deficit Skin: normal color, warm/dry Progress/Results/Core Measures Results/Orders Lab Results Laboratory Tests Test 07/18/23 14:20 07/18/23 15:10 07/18/23 15:58 Range/Units White Blood Count 6.2 4.3-11.0 10^3/uL Red Blood Count 3.78 L 3.80-5.11 10^6/uL Hemoglobin 11.7 11.5-16.0 g/dL Hematocrit 38 35-52 % Mean Corpuscular Volume 100 H 80-99 fL Mean Corpuscular Hemoglobin 31 25-34 pg Mean Corpuscular Hemoglobin Concent 31 L 32-36 g/dL Red Cell Distribution Width 14.1 10.0-14.5 % Platelet Count 231 130-400 10^3/uL Mean Platelet Volume 9.8 9.0-12.2 fL Immature Granulocyte % (Auto) 0 % Neutrophils (%) (Auto) 49 42-75 % Lymphocytes (%) (Auto) 26 12-44 % Monocytes (%) (Auto) 20 H 0-12 % Eosinophils (%) (Auto) 4 0-10 % Basophils (%) (Auto) 1 0-10 % Neutrophils # (Auto) 3.0 1.8-7.8 10^3/uL Lymphocytes # (Auto) 1.6 1.0-4.0 10^3/uL Monocytes # (Auto) 1.2 H 0.0-1.0 10^3/uL Eosinophils # (Auto) 0.3 0.0-0.3 10^3/uL Basophils # (Auto) 0.1 0.0-0.1 10^3/uL Immature Granulocyte # (Auto) 0.0 0.0-0.1 10^3/uL Neutrophils % (Manual) 50 % Lymphocytes % (Manual) 29 % Monocytes % (Manual) 15 % Eosinophils % (Manual) 6 % Anisocytosis SLIGHT Sodium Level 139 135-145 MMOL/L Potassium Level 3.8 3.6-5.0 MMOL/L Chloride Level 107 98-107 MMOL/L Carbon Dioxide Level 23 21-32 MMOL/L Anion Gap 9 5-14 MMOL/L Blood Urea Nitrogen 22 H 7-18 MG/DL Creatinine 0.97 0.60-1.30 MG/DL Estimat Glomerular Filtration Rate 59 BUN/Creatinine Ratio 23 Glucose Level 104 70-105 MG/DL Calcium Level 8.9 8.5-10.1 MG/DL Corrected Calcium 9.0 8.5-10.1 MG/DL Magnesium Level 2.0 1.6-2.4 MG/DL Total Bilirubin 0.6 0.1-1.0 MG/DL Aspartate Amino Transf (AST/SGOT) 27 5-34 U/L Alanine Aminotransferase (ALT/SGPT) 14 0-55 U/L Alkaline Phosphatase 126 40-136 U/L Total Protein 7.8 6.4-8.2 GM/DL Albumin 3.9 3.2-4.5 GM/DL Urine Color YELLOW Urine Clarity CLEAR Urine pH 5.5 5-9 Urine Specific Capulin <=1.005 1.016-1.022 Urine Protein NEGATIVE NEGATIVE Urine Glucose (UA) NEGATIVE NEGATIVE Urine Ketones NEGATIVE NEGATIVE Urine Nitrite NEGATIVE NEGATIVE Urine Bilirubin NEGATIVE NEGATIVE Urine Urobilinogen 0.2 < = 1.0 MG/DL Urine Leukocyte Esterase 3+ H NEGATIVE Urine RBC (Auto) TRACE H NEGATIVE Urine RBC 5-10 H /HPF Urine WBC 10-25 H /HPF Urine Squamous Epithelial Cells 10-25 H /HPF Urine Crystals NONE /LPF Urine Bacteria MODERATE H /HPF Urine Casts NONE /LPF Urine Mucus NEGATIVE /LPF Urine Yeast FEW H /HPF Urine Culture Indicated YES Influenza Type A (RT-PCR) Not Detected Not Detecte Influenza Type B (RT-PCR) Not Detected Not Detecte SARS-CoV-2 RNA (RT-PCR) Not Detected Not Detecte Micro Results Microbiology 07/18/23 Urine Culture - Final, Complete Lactobacillus species My Orders Orders - ARIAN FERMIN MD Ct Head Wo-R/O Stroke (07/18/23 14:42) Cbc And Automated Diff (07/18/23 14:42) Comprehensive Metabolic Panel (07/18/23 14:42) Magnesium (07/18/23 14:42) Ua Culture If Indicated (07/18/23 14:42) Ed Iv/Invasive Line Start (07/18/23 14:42) Ekg Tracing (07/18/23 14:42) Monitor-Rhythm Ecg Trace Only (07/18/23 14:42) Manual Differential (07/18/23 14:20) Mri Brain W/Wo Contrast (07/18/23 14:59) Gadoterate Inj (Radiology) ([place] In (07/18/23 15:15) Covid 19 Inhouse Test (07/18/23 15:09) Influenza A And B By Pcr (07/18/23 15:09) Urine Culture (07/18/23 15:10) Cefdinir Capsule (Cefdinir Capsule) (07/18/23 19:30) Dexamethasone Tablet (Dexamethasone Ta (07/18/23 19:30) Hydrocodone/Apap 5/325 Tablet (Hydrocod (07/18/23 19:30) Lorazepam Injection (Lorazepam Injection (07/18/23 20:00) Medications Given in ED Vital Signs/I&O 07/18/23 07/18/23 14:17 20:40 Temp 36.6 Pulse 52 68 Resp 18 B/P (MAP) 168/72 (104) 159/56 Pulse Ox 96 92 O2 Delivery Room Air Room Air Blood Pressure Mean: 104 Progress Progress Note : Progress Note Patient was interviewed and examined by me. Family was also interviewed. Chart was reviewed. Labs were reviewed and interpreted by me in their entirety. CBC was unremarkable. Chemistry was also unremarkable. Flu and COVID testing were negative. Urinalysis demonstrated 10-25 WBC, 10-25 squamous cells, moderate bacteria, and few yeast. The squamous cells would suggest contamination. Patient denied any symptoms of yeast infection. EKG demonstrated atrial fibrillation as noted in my interpretation below. There were no ischemic changes. CT of the head was obtained and was unremarkable. This was followed with MRI of the brain due to her unusual neurologic symptoms and history of lymphoma. Unfortunately, MRI noted an edematous lesion as noted in the report below. Radiologist's reports were reviewed. I discussed the case with Dr. Sheikh. He recommended starting oral dexamethasone and monitoring blood sugars closely. He recommended a follow-up MRI as recommended in the report below. Radiology and clubhouse manager assisted with scheduling MRI. First dose of dexamethasone was given in the ER. Cefdinir was administered for possible urinary tract infection. Hydrocodone was administered for the headache. Patient became very anxious with discussion about the potential recurrence of neoplasm. Ativan was given for her anxiety. Blood pressure juana during her anxiety but improved after Ativan. Had a discussion with Dr. Payne, oncologist, at length about this case. We discussed use of Eliquis and risk of intracranial hemorrhage with this edematous lesion. Ultimately, he recommended holding Eliquis for the time being. I discussed risks and benefits of continuing versus holding Eliquis with the patient. She elects to hold Eliquis until her follow-up MRI and outpatient guidance from her usual doctors. See discharge instructions and prescriptions for further discussion. Initial ECG Impression Date: Jul 18, 2023 Initial ECG Impression Time: 15:05 Initial ECG Rate: 53 Initial ECG Rhythm: A Fib/Flutter Initial ECG Impression: Atrial Fibrillation Comment Atrial fibrillation with no ST elevation or depression. Rate controlled. No abnormal intervals or axis deviation. Diagnostic Imaging Diagonstic Imaging: CT Plain Films/CT/US/NM/MRI: head Comments NAME: ASAF HAWKINS [facility] REC#: [id number] PT STATUS: REG ER : 1945 PHYSICIAN: ARIAN FERMIN MD ADMIT DATE: 07/18/23/ER Signed Date of Exam:07/18/23 CT HEAD WO-R/O STROKE PROCEDURE: CT head wo r/o stroke. TECHNIQUE: Multiple contiguous axial images were obtained through the brain without the use of intravenous contrast. Auto Exposure Controls were utilized during the CT exam to meet ALARA standards for radiation dose reduction. INDICATION: Blurred vision of one day's duration, two weeks of head pain. FINDINGS: There is no intracranial hemorrhage, hydrocephalus, cerebral edema, mass, mass effect, or evidence for elevated intracerebral pressures. Orbits, sinuses, and calvarium are nonacute. IMPRESSION: No hemorrhage, edema, or acute appearing abnormalities. Dictated by: Dictated on workstation # [id number] Dict: 07/18/23 1521 Trans: 07/18/237 [id number] Interpreted by: BRITTNEY RAMOS Electronically signed by: BRITTNEY RAMOS 07/18/231706 Diagonstic Imaging: MRI Plain Films/CT/US/NM/MRI: head Comments NAME: ASAF HAWKINS [facility] REC#: [id number] PT STATUS: REG ER : 1945 PHYSICIAN: ARIAN FERMIN MD ADMIT DATE: 07/18/23/ER Signed Date of Exam:07/18/23 MRI BRAIN W/WO CONTRAST PROCEDURE: MR imaging of the brain with and without contrast. TECHNIQUE: Multiplanar, multisequence MR imaging of the brain was performed with and without contrast. INDICATION: Headaches. Vertigo. History of lymphoma, in remission. COMPARISON: CT head on 07/18/2023. FINDINGS: No acute ischemia or hemorrhage. T2 hyperintense signal is seen in the periventricular and subcortical white matter. The ventricles and cortical sulci are prominent. The basilar cisterns are symmetric and unremarkable. There is flattening of the pituitary. The major intracranial flow voids are intact. There is an enhancing mass within the left middle cerebellar peduncle measuring 0.7 x 0.5 cm and 0.5 cm craniocaudal. Associated T2 hyperintense signal is seen surrounding this mass. The paranasal sinuses demonstrate normal signal characteristics. Right-sided mastoid effusion is seen. Bilateral lens implants are noted. The scalp and calvarium have a normal appearance. IMPRESSION: 1. Enhancing mass within the left middle cerebellar peduncle with associated parenchymal edema. Findings may represent a metastatic lesion related to the patient's history of lymphoma. Primary DATA LIBRARIAN lymphoma or other metastatic lesion from a different primary malignancy are also considerations. This region is not well characterized on the study and dedicated sequences of the brainstem and posterior fossa (IAC protocol) with and without contrast could be considered to further evaluate. 2. No acute ischemia or hemorrhage. 3. Mild parenchymal volume loss with scattered chronic microvascular disease. 4. Small right-sided mastoid effusion. Findings were discussed with Dr. Fermin at 03:55 p.m. on 07/18/[address] Howe. Dictated by: Dictated on workstation # [id number] Dict: 07/18/23 1542 Trans: 07/18/23 1603 [id number] Interpreted by: ANNEMARIE HOWE DO Electronically signed by: ANNEMARIE HOWE DO 07/18/23 1603 Departure Impression Primary Impression: Brain lesion Additional Impressions: Diplopia Vertigo Urinary tract infection Qualified Codes: N39.0 - Urinary tract infection, site not specified Diabetes type 2, controlled Qualified Codes: E11.9 - Type 2 diabetes mellitus without complications History of lymphoma Anxiety Episode of hypertension Disposition: HOME, SELF-CARE Condition: Stable Departure-Patient Inst. Decision time for Depature: 19:37 Referrals: LITZY SHAFER MD (PCP/Family) Primary Care Physician Patient Instructions: Brain cancer, Urinary Tract Infection, Adult ED Add. Discharge Instructions: There is a new mass on the cerebellum of your brain concerning for recurrence of lymphoma or some other type of disease process. Take dexamethasone as prescribed to help reduce swelling. You will take dexamethasone 3 times daily with food. Dexamethasone may cause your blood sugars to rise. You may temporarily increase your metformin to 500 mg 3 times a day with meals to help prevent blood sugar elevation. Check your blood sugar 3 hours after each meal. If you are having blood sugars greater than 300, please call your doctor. If you are unable to contact your doctor, return to the [facility]. Complete your antibiotic as prescribed. Follow-up with Dr. aPyne or your primary care provider on Friday to review urine culture results. This will help ensure you are taking the best antibiotic for the type of bacteria causing your urinary tract infection. Zofran (ondansetron) has been prescribed for nausea and vomiting. Use this if needed. Hydrocodone has been prescribed for headaches. Do not use NSAID medications such as ibuprofen or naproxen for headaches as they may increase bleeding risk. Hydrocodone may cause drowsiness, so use with caution. Hydrocodone may also cause constipation, so you may wish to use a stool softener such as Colace while you are on hydrocodone. Dr. Payne had suggested you temporarily stop Eliquis due to the nature of the spot on your brain. This spot increases risk of bleeding. An MRI is being scheduled for you for Friday. Please bring your order form with you to that appointment. Please follow-up with Dr. Payne's office as soon as possible. Call on Friday to schedule appointment. Inform them that you were advised by Dr. Payne and the ER physician to be seen promptly due to a new spot on your brain concerning for new or recurrent cancer. Return to the emergency room if you have worsening or new neurologic symptoms resembling stroke. This could include confusion, difficulty generating or understanding speech, worsening vision changes, worsening balance, weakness of an arm or leg, etc. Also return to the ER if you develop other worsening symptoms such as fever, shortness of breath, chest pain, uncontrolled headache, etc. All discharge instructions reviewed with patient and/or family. Voiced understanding. Scripts Cefdinir (Cefdinir) 300 Mg Capsule 300 MG PO BID, #14 CAP Prov: ARIAN FERMIN MD 07/18/23 Dexamethasone (Dexamethasone) 4 Mg Tablet 4 MG PO TIDWM, #20 TAB Prov: ARIAN FERMIN MD 07/18/23 Hydrocodone/Acetaminophen (Hydrocodone-Acetamin 5-325 mg) 5 Mg-325 Mg Tablet 1 TAB PO Q6H PRN for PAIN-MODERATE TO SEVERE, #10 TAB Prov: ARIAN FERMIN MD 07/18/23 Ondansetron (Ondansetron Odt) 4 Mg Tab.rapdis 4 MG SL Q4H PRN for NAUSEA/VOMITING, #10 TAB Prov: ARIAN FERMIN MD 07/18/23 Copy Copies To 1: LEEROY PAYNE Copies To 2: LITZY SHAFER MD, JOSHUA T MD Jul 18, 2023 14:47
[2023-07-18 14:51] LABS: BASOPHILS # (AUTO) 0.1 10^3/uL (0.0-0.1); BASOPHILS % (AUTO) 1 % (0-10); EOSINOPHILS # (AUTO) 0.3 10^3/uL (0.0-0.3); EOSINOPHILS % (AUTO) 4 % (0-10); HEMATOCRIT 38 % (35-52); HEMOGLOBIN 11.7 g/dL (11.5-16.0); LYMPHOCYTES # (AUTO) 1.6 10^3/uL (1.0-4.0); LYMPHOCYTES % (AUTO) 26 % (12-44); MEAN CORPUSCULAR HEMOGLOBIN 31 pg (25-34); MEAN CORPUSCULAR HGB CONC 31 g/dL (32-36); MEAN CORPUSCULAR VOLUME 100 fL (80-99); MEAN PLATELET VOLUME 9.8 fL (9.0-12.2); MONOCYTES # (AUTO) 1.2 10^3/uL (0.0-1.0); MONOCYTES % (AUTO) 20 % (0-12); NEUTROPHILS % (AUTO) 49 % (42-75); PLATELET COUNT 231 10^3/uL (130-400); WHITE BLOOD COUNT 6.2 10^3/uL (4.3-11.0)
[2023-07-18 14:55] LABS: ALBUMIN 3.9 GM/DL (3.2-4.5)
[2023-07-18 14:56] LABS: POTASSIUM 3.8 MMOL/L (3.6-5.0)
[2023-07-18 14:57] LABS: CALCIUM 8.9 MG/DL (8.5-10.1)
[2023-07-18 14:58] LABS: TOTAL PROTEIN 7.8 GM/DL (6.4-8.2)
[2023-07-18 15:00] LABS: BILIRUBIN,TOTAL 0.6 MG/DL (0.1-1.0)
[2023-07-18 15:02] LABS: CREATININE SERUM 0.97 MG/DL (0.60-1.30)
[2023-07-18] MEDS ORDERED: GADOTERATE 0.5 MMOL/ML (CLARISCAN) 15 ML VIAL IV ONE (15:15)
[2023-07-18 15:20] LABS: ANISOCYTOSIS SLIGHT; EOSINOPHILS % (MANUAL) 6 %; LYMPHOCYTES % (MANUAL) 29 %; MONOCYTES % (MANUAL) 15 %; NEUTROPHILS % (MANUAL) 50 %
--- NOTE | 2023-07-18 15:26 | Diagnostic Imaging Report ---
PROCEDURE: CT head wo r/o stroke. TECHNIQUE: Multiple contiguous axial images were obtained through the brain without the use of intravenous contrast. Auto Exposure Controls were utilized during the CT exam to meet ALARA standards for radiation dose reduction. INDICATION: Blurred vision of one day's duration, two weeks of head pain. FINDINGS: There is no intracranial hemorrhage, hydrocephalus, cerebral edema, mass, mass effect, or evidence for elevated intracerebral pressures. Orbits, sinuses, and calvarium are nonacute. IMPRESSION: No hemorrhage, edema, or acute appearing abnormalities. Dictated by: Dictated on workstation # [id number]
[2023-07-18 15:38] LABS: BILIRUBIN,URINE NEGATIVE (NEGATIVE); CLARITY,URINE CLEAR; COLOR,URINE YELLOW; GLUCOSE, URINE (UA) NEGATIVE (NEGATIVE); KETONES,URINE NEGATIVE (NEGATIVE); NITRITE,URINE NEGATIVE (NEGATIVE); PH,URINE 5.5 (5-9); PROTEIN,URINE NEGATIVE (NEGATIVE)
[2023-07-18 15:39] LABS: BACTERIA,URINE MODERATE /HPF; LEUKOCYTE ESTERASE ,URINE 3+ (NEGATIVE); YEAST,URINE FEW /HPF
--- NOTE | 2023-07-18 16:03 | Diagnostic Imaging Report ---
PROCEDURE: MR imaging of the brain with and without contrast. TECHNIQUE: Multiplanar, multisequence MR imaging of the brain was performed with and without contrast. INDICATION: Headaches. Vertigo. History of lymphoma, in remission. COMPARISON: CT head on 07/18/2023. FINDINGS: No acute ischemia or hemorrhage. T2 hyperintense signal is seen in the periventricular and subcortical white matter. The ventricles and cortical sulci are prominent. The basilar cisterns are symmetric and unremarkable. There is flattening of the pituitary. The major intracranial flow voids are intact. There is an enhancing mass within the left middle cerebellar peduncle measuring 0.7 x 0.5 cm and 0.5 cm craniocaudal. Associated T2 hyperintense signal is seen surrounding this mass. The paranasal sinuses demonstrate normal signal characteristics. Right-sided mastoid effusion is seen. Bilateral lens implants are noted. The scalp and calvarium have a normal appearance. IMPRESSION: 1. Enhancing mass within the left middle cerebellar peduncle with associated parenchymal edema. Findings may represent a metastatic lesion related to the patient's history of lymphoma. Primary DIRECTOR OF HOME ECONOMICS lymphoma or other metastatic lesion from a different primary malignancy are also considerations. This region is not well characterized on the study and dedicated sequences of the brainstem and posterior fossa (IAC protocol) with and without contrast could be considered to further evaluate. 2. No acute ischemia or hemorrhage. 3. Mild parenchymal volume loss with scattered chronic microvascular disease. 4. Small right-sided mastoid effusion. Findings were discussed with Dr. Cortez at 03:55 p.m. on 07/18/[address] Gross. Dictated by: Dictated on workstation # [id number]
[2023-07-18] MEDS ORDERED: CEFDINIR 300 MG CAPSULE PO ONE (19:30)
[2023-07-18] MEDS ORDERED: HYDROcodone/ACETAMINOPHEN 5 MG/325 MG TABLET PO ONE (19:30)
[2023-07-18] MEDS ORDERED: dexAMETHasone 4 MG TABLET PO ONE (19:30)
[2023-07-18] MEDS ORDERED: DEXA4TAB PO (19:46)
[2023-07-18] MEDS ORDERED: ONDA4TAB11 SL (19:46)
[2023-07-18] MEDS ORDERED: CEFD300C3 PO (19:46)
[2023-07-18] MEDS ORDERED: ACHD5005 PO (19:46)
[2023-07-18 20:40] VITALS: BP 159/56
== END 2023-07-18 20:49 | disposition home or self-care (01) ==
LOC: EDUNIT# 14:09 → ER 14:12
DX: G93.9 Disorder of brain, unspecified (principal); H53.2 Diplopia; R42 Dizziness and giddiness; N39.0 Urinary tract infection, site not specified; E11.9 Type 2 diabetes mellitus without complications; I10 Essential (primary) hypertension; F41.9 Anxiety disorder, unspecified; I48.91 Unspecified atrial fibrillation; Z85.72 Personal history of non-Hodgkin lymphomas; Z79.01 Long term (current) use of anticoagulants; Z88.0 Allergy status to penicillin; Z88.2 Allergy status to sulfonamides
CPT/HCPCS: 36415; 70450; 70553; 80053; 81000; 83735; 85007; 85027; 87088; 87636; 93005; 93041; 96374

== ENCOUNTER → 2023-07-21 | Outpatient (CLI) | payer MEDICARE, OTHER ==
[~2023-07-21] MED LIST changes: +CEFD300C3 PO; +DEXA4TAB PO; +GADOTERATE 0.5 MMOL/ML (CLARISCAN) 15 ML VIAL IV ONE
--- NOTE | 2023-07-21 13:37 | Diagnostic Imaging Report ---
CLINICAL INDICATION: Patient had abnormal area seen on prior MRI of the brain. Patient has history of headaches, vertigo, and lymphoma. EXAM: MRI of the brain/ IACs performed without and with 18 cc of IV contrast. Sequences include sagittal T1 localizer, axial T2, axial flair, axial T1, coronal gradient echo, DWI, ADC map, axial T1 thin, axial T2 thin, coronal T1 thin, axial T2 3D SPACE, axial T1 post contrast whole brain, coronal T1 fat-sat post IV contrast whole brain, sagittal T1 post IV contrast whole brain, axial T1 post IV contrast thin fat sat, and coronal T1 post IV contrast thin. COMPARISONS: MRI of the brain with and without contrast dated 07/18/2023. FINDINGS: TEMPORAL BONE STRUCTURES: There is a small amount of fluid within the right mastoid air cells again seen. The left mastoid air cells are clear. The internal auditory canal, otic capsule, middle ear, and temporal bone structures have normal anatomic appearance and are unremarkable. The visualized nerves VII and VIII within the IACs bilaterally and cisternal portions have normal appearance. The remainder of the visualized cranial nerves in the basal cistern regions is unremarkable. BRAIN PARENCHYMA: Again seen is a 7 mm x 5 mm enhancing area which appears to involve the inferior aspect of the left middle cerebellar peduncle and posterior and lateral to the left side of the brainstem medulla. Adjacent increased T2 signal involving the left middle cerebellar peduncle region is again seen. The remainder of the brain parenchyma shows age related brain parenchymal changes and no other interval significant abnormality. There is no significant architectural distortion, midline shift, or herniation. There is no abnormal IV contrast enhancement or diffusion restriction signal changes. VENTRICLES: Unremarkable with no hydrocephalus. VISUALIZED INTRACRANIAL VESSELS: Unremarkable as visualized. SKULL/ORBITS: Unremarkable. VISUALIZED PARANASAL SINUSES: Unremarkable. IMPRESSION: 1: There is a stable enhancing area which appears to involve the inferior aspect of the left middle cerebellar peduncle. Again seen is increased T2 signal involving the left middle cerebellar peduncle. These findings may be related to a neoplastic process. 2: There is a stable small amount of fluid involving the right mastoid air cells. Otherwise, unremarkable MRI of the internal auditory canals, temporal bone structures, and basal cisterns. 3: The remainder of this exam shows no significant interval change compared to the prior study of comparison. Dictated by: Dictated on workstation # [id number]
== END ==
LOC: RAD 10:32
PROVIDERS: ATTEND Family Medicine
DX: M54.2 Cervicalgia (principal)
CPT/HCPCS: 70553

== ENCOUNTER → 2023-07-31 | Outpatient (RCR) | payer MEDICARE, OTHER | END | disposition home or self-care (01) | LOC: ONC 07-22 10:55 | PROVIDERS: ATTEND Radiology Radiation Oncology | DX: Z51.0 Encounter for antineoplastic radiation therapy (principal); C85.90 Non-Hodgkin lymphoma, unspecified, unspecified site | CPT/HCPCS: 77300; 77301; 77334; 77338; 77370; 77373; 99205 ==

== ENCOUNTER 2023-08-02 10:13 | Emergency (ER) | payer MEDICARE, OTHER ==
[~2023-08-02] VITALS: Ht 165 cm; Wt 59.8 kg
[~2023-08-02 10:13] MED LIST changes: -GADOTERATE 0.5 MMOL/ML (CLARISCAN) 15 ML VIAL IV ONE
--- NOTE | 2023-08-02 10:28 | ED Chest Pain ---
General Chief Complaint: Chest Pain Stated Complaint: CHEST PAIN/DIARHHEA Source: patient, family Exam Limitations: no limitations History of Present Illness Date Seen by Provider: Aug 02, 2023 Time Seen by Provider: 10:15 Initial Comments 78-year-old female presents to the emergency department today for diarrhea, chest pain. She has had diarrhea for 3 days that is worsening today. She has voluminous loose stools multiple times per day that are nonbloody. 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 According to the patient this is an area that is not able to be biopsied so she is undergoing radiation as though this were a lymphoma. She has had 15 to 16 pound weight loss in the last 3 weeks since the outset of her treatments. She was found to have a urinary tract infection at the time that the tumor was identified so she was started on antibiotics and finished a full course at that time. Currently she complains of diffuse abdominal cramping without any focal abdominal pain. She does have some nausea without any vomiting. She has Zofran at home which she has been using without much relief. She has not tried anything for her diarrheal stools. Regarding her chest pain, she started to have them this morning. This is described as a waxing and waning sharp stabbing sensation without radiation. No obvious aggravating or alleviating factors. No associated shortness of breath nausea vomiting diaphoresis. Patient does have a history of atrial fibrillation, recently taken off of her Eliquis. Also has congestive heart failure. All other systems reviewed and negative except documented per HPI. Voice recognition software was used to help create this chart Allergies and Home Medications Allergies Coded Allergies: Cephalexin Monohydrate (Verified Allergy, Unknown, has tolerated Ancef, 08/03/19) Iodinated Contrast Media (Verified Allergy, Unknown, 10/29/19) Penicillins (Verified Allergy, Unknown, Has tolerated Ancef, 08/03/19) adhesive tape (Verified Allergy, Unknown, 08/04/21) ciprofloxacin (Verified Allergy, Unknown, 02/25/21) iodine (Verified Allergy, Unknown, 07/08/19) latex (Verified Allergy, Unknown, 08/02/23) linaclotide (Verified Allergy, Unknown, 07/28/19) lubiprostone (Verified Allergy, Unknown, 07/28/19) prednisone (Verified Allergy, Unknown, 08/02/23) sulfamethoxazole (Verified Allergy, Unknown, 02/25/21) trimethoprim (Verified Allergy, Unknown, 02/25/21) venlafaxine HCl (Verified Allergy, Unknown, 07/08/19) prednisolone (Verified Adverse Reaction, Unknown, Cold flashes, 07/18/23) Patient Home Medication List Home Medication List Reviewed: Yes Apixaban (Eliquis) 5 Mg Tablet, 5 MG PO BID Prescribed by: DAVINA TRONCOSO on 08/09/21 0800 Aspirin (Aspirin EC) 81 Mg Tablet.dr, 81 MG PO DAILY, (Reported) Entered as Reported by: ALESHIA CONNELLY on 10/31/20 1122 Atorvastatin Calcium (Atorvastatin Calcium) 20 Mg Tablet, 20 MG PO 1700, (Reported) Entered as Reported by: BRUNO GRIMALDO on 07/09/19 0910 Carboxymethylcellulose Sodium (Refresh Tears) 15 Ml Drops, 2 DROPS OU PRN PRN for DRY EYES, (Reported) Entered as Reported by: ALESHIA CONNELLY on 12/15/19 1311 Carvedilol (Carvedilol) 12.5 Mg Tablet, 12.5 MG PO BID Prescribed by: DAVINA TRONCOSO on 08/09/21 0800 Cefdinir (Cefdinir) 300 Mg Capsule, 300 MG PO BID Prescribed by: ARIAN BURDEN on 07/18/231945 Cholecalciferol (Vitamin D3) (Vitamin D3) 50 Mcg Tablet, 100 MCG PO DAILY, (Reported) Entered as Reported by: ROB SOLARES on 06/21/21 1425 Citalopram Hydrobromide (Citalopram HBr) 10 Mg Tablet, 10 MG PO BID WITH MEALS, (Reported) Entered as Reported by: BRUNO GRIMALDO on 10/15/19 0954 Dexamethasone (Dexamethasone) 4 Mg Tablet, 4 MG PO TIDWM Prescribed by: ARIAN BURDEN on 07/18/231945 Docusate Sodium (Docusate Sodium) 100 Mg Capsule, 100 MG PO BID PRN for CONSTIPATION-1ST LINE, (Reported) Entered as Reported by: ALESHIA CONNELLY on 08/02/21 1107 Estrogens Conjugated (Premarin) 0.45 Mg Tab, 0.45 MG PO DAILY, (Reported) Entered as Reported by: BRUNO GRIMALDO on 07/09/19 0910 Famotidine (Famotidine) 20 Mg Tablet, 20 MG PO BID WITH MEALS, (Reported) Entered as Reported by: BRUNO GRIMALDO on 10/15/19 0954 Furosemide (Furosemide) 40 Mg Tablet, 40 MG PO DAILY Prescribed by: DAVINA TRONCOSO on 08/09/21 0800 Hydrocodone/Acetaminophen (Hydrocodone-Acetamin 5-325 mg) 5 Mg-325 Mg Tablet, 1 TAB PO Q6H PRN for PAIN-MODERATE TO SEVERE Prescribed by: ARIAN BURDEN on 07/18/231946 Lactobacillus Combo No.10 (Probiotic) 1 Each Capsule, 1 EACH PO DAILY, (Reported) Entered as Reported by: ALESHIA CONNELLY on 12/15/19 1319 Losartan Potassium (Losartan Potassium) 50 Mg Tablet, 50 MG PO 1700, (Reported) Entered as Reported by: ALESHIA CONNELLY on 10/31/20 1122 Metformin HCl (Metformin HCl ER) 500 Mg Tab.er.24h, 500 MG PO 1700 W/MEAL, (Reported) Entered as Reported by: ALESHIA CONNELLY on 10/31/20 1122 Mirtazapine (Mirtazapine) 15 Mg Tablet, 15 MG PO HS, (Reported) Entered as Reported by: SHARMAINE SIMPSON on 07/04/21 1444 Nitrofurantoin Monohyd/M-Cryst (Macrobid 100 mg Capsule) 100 Mg Capsule, 1 TAB PO BID Prescribed by: KEVIN WASHBURN on 04/20/23 1053 Ondansetron (Ondansetron Odt) 4 Mg Tab.rapdis, 4 MG SL Q8H PRN for NAUS EA/VOMITING Prescribed by: KEVIN WASHBURN on 04/20/23 1053 Ondansetron (Ondansetron Odt) 4 Mg Tab.rapdis, 4 MG SL Q4H PRN for NAUSEA/VOMITING Prescribed by: ARIAN BURDEN on 07/18/231945 Pantoprazole Sodium (Pantoprazole Sodium) 40 Mg Tablet.dr, 40 MG PO DAILY, (Reported) Entered as Reported by: MARGARET CARDOZA on 07/08/191999 Potassium Chloride (Klor-Con M20) 20 Meq Tab.er.prt, 20 MEQ PO DAILY@0700 Prescribed by: DAVINA TRONCOSO on 08/09/21 0800 Vit A/Vit C/Vit E/Zinc/Copper (Preservision Areds Tablet) 1 Each Tablet, 2 TAB PO DAILY, (Reported) Entered as Reported by: BRUNO GRIMALDO on 07/09/19 0910 Review of Systems Review of Systems Constitutional: see HPI Past [id number] Hx Patient Social History Tobacco Use?: No Use of E-Cig and/or Vaping dev: No Substance use?: No Alcohol Use?: No Immunizations Up To Date Tetanus Booster (TDap): Unknown First/Initial COVID19 Vaccinat: 12/20 Second COVID19 Vaccination Esa: YES Third COVID19 Vaccination Date: YES Seasonal Allergies Seasonal Allergies: Yes Past Medical History Surgery/Hospitalization HX: 07/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, DM, AFIB, HYST, APPY, CATARACT, HIATAL HERNIA, CHF Surgeries: Yes (R KNEE REPLACEMENT;C-SPINE SURGERY;APPY;CATARACTS; HIATAL HERNIA;TISH;HYST) Abdominal, Appendectomy, Bladder Surgery, Cardiac, Gallbladder, Hysterectomy, Joint Replacement, Orthopedic, Vascular Surgery Respiratory: Yes Pneumonia, COPD Currently Using CPAP: No Currently Using BIPAP: No Cardiac: Yes (CHF) Atrial Fibrillation, High Cholesterol, Hypertension, Valvular Heart Disease Neurological: No SYSTEMS CONSULTANT History: Menopausal Genitourinary: Yes Bladder Infection Gastrointestinal: Yes Gastroesophageal Reflux, Gastrointestinal Bleed, Chronic Constipation, Hiatal Hernia Musculoskeletal: Yes (RIGHT KNEE REPLACEMENT) Arthritis, Rheumatoid Arthritis Endocrine: Yes Diabetes, Non-Insulin dep HEENT: Yes Cataract Loss of Vision: Denies Hearing Impairment: Bilateral Hearing Aide Cancer: Yes Lymphoma Did You Recieve Any Treatments: Yes What Type of Treatment Did You: Chemotherapy Psychosocial: Yes Anxiety, Depression Integumentary: No Blood Disorders: No Adverse Reaction/Blood Tranf: No Family Medical History Cancer, Hypertension Physical Exam Vital Signs Vital Signs - First Documented 08/02/23 10:28 Temp 35.7 Pulse 70 Resp 20 B/P (MAP) 144/56 (85) Pulse Ox 96 Capillary Refill : Height, Weight, BMI Height: '" Weight: lbs. oz. kg; 24.00 BMI Method:Estimated General Appearance: No Apparent Distress, WD/WN HEENT: Normal ENT Inspection, Pharynx Normal Neck: Non Tender, Supple Respiratory: Chest Non Tender, Lungs Clear, Normal Breath Sounds, No Accessory Muscle Use, No Respiratory Distress Cardiovascular: Regular Rate, Rhythm, No Murmur, Normal Peripheral Pulses Gastrointestinal: No Organomegaly, Soft, Tenderness (Mild diffuse tenderness without any rebound or guarding. No mass organomegaly. No skin changes.) Extremity: Normal Range of Motion, Non Tender, No Calf Tenderness, No Pedal Edema Neurologic/Psychiatric: Alert, Oriented x3, No Motor/Sensory Deficits, Normal Mood/Affect Skin: Normal Color, Warm/Dry Progress/Results/Core Measures Results/Orders Lab Results Laboratory Tests Test 08/02/23 10:34 Range/Units White Blood Count 23.3 H 4.3-11.0 10^3/uL Red Blood Count 4.90 3.80-5.11 10^6/uL Hemoglobin 15.2 11.5-16.0 g/dL Hematocrit 46 35-52 % Mean Corpuscular Volume 94 80-99 fL Mean Corpuscular Hemoglobin 31 25-34 pg Mean Corpuscular Hemoglobin Concent 33 32-36 g/dL Red Cell Distribution Width 14.3 10.0-14.5 % Platelet Count 188 130-400 10^3/uL Mean Platelet Volume 9.9 9.0-12.2 fL Immature Granulocyte % (Auto) 1 % Neutrophils (%) (Auto) 75 42-75 % Lymphocytes (%) (Auto) 4 L 12-44 % Monocytes (%) (Auto) 20 H 0-12 % Eosinophils (%) (Auto) 0 0-10 % Basophils (%) (Auto) 0 0-10 % Neutrophils # (Auto) 17.5 H 1.8-7.8 10^3/uL Lymphocytes # (Auto) 1.0 1.0-4.0 10^3/uL Monocytes # (Auto) 4.5 H 0.0-1.0 10^3/uL Eosinophils # (Auto) 0.0 0.0-0.3 10^3/uL Basophils # (Auto) 0.0 0.0-0.1 10^3/uL Immature Granulocyte # (Auto) 0.3 H 0.0-0.1 10^3/uL Neutrophils % (Manual) 76 % Lymphocytes % (Manual) 3 % Monocytes % (Manual) 15 % Eosinophils % (Manual) 0 % Basophils % (Manual) 0 % Band Neutrophils 6 % Blood Morphology Comment NORMAL Sodium Level 136 135-145 MMOL/L Potassium Level 4.3 3.6-5.0 MMOL/L Chloride Level 103 98-107 MMOL/L Carbon Dioxide Level 21 21-32 MMOL/L Anion Gap 12 5-14 MMOL/L Blood Urea Nitrogen 50 H 7-18 MG/DL Creatinine 1.08 0.60-1.30 MG/DL Estimat Glomerular Filtration Rate 52 BUN/Creatinine Ratio 46 Glucose Level 134 H 70-105 MG/DL Calcium Level 9.1 8.5-10.1 MG/DL Corrected Calcium 9.3 8.5-10.1 MG/DL Total Bilirubin 0.5 0.1-1.0 MG/DL Aspartate Amino Transf (AST/SGOT) 20 5-34 U/L Alanine Aminotransferase (ALT/SGPT) 22 0-55 U/L Alkaline Phosphatase 91 40-136 U/L Troponin I < 0.028 <0.028 NG/ML Total Protein 7.1 6.4-8.2 GM/DL Albumin 3.8 3.2-4.5 GM/DL My Orders Orders - ASAEL EMERSON DO Ekg Tracing (08/02/23 10:16) Comprehensive Metabolic Panel (08/02/23 10:24) Cbc And Automated Diff (08/02/23 10:24) Ns Iv 500 Ml (Ns Iv 500 Ml) (08/02/23 10:30) Ondansetron Injection (Ondansetron Inj (08/02/23 10:30) Loperamide Capsule (Loperamide Capsule) (08/02/23 10:30) Troponin I Twila (08/02/23 10:28) Chest 1 View, Ap/Pa Only (08/02/23 10:28) Manual Differential (08/02/23 10:34) Medications Given in ED Current Medications Medications Dose Ordered Sig/Dino Route Start Time Stop Time Status Last Admin Dose Admin Loperamide HCl 4 mg ONCE ONCE PO 08/02/23 10:30 08/02/23 10:31 DC 08/02/23 10:44 4 MG Ondansetron HCl 8 mg ONCE ONCE IVP 08/02/23 10:30 08/02/23 10:31 DC 08/02/23 10:44 8 MG Vital Signs/I&O 08/02/23 10:28 Temp 35.7 Pulse 70 Resp 20 B/P (MAP) 144/56 (85) Pulse Ox 96 Comment Atrial flutter, rate of 57 bpm. Normal intervals outside of HI interval. Normal axis. No ST or T wave abnormalities. No ectopy. No STEMI. Departure Communication (Admissions) Patient is hemodynamically stable. She had a very small volume of liquid stool here, not enough to send for sampling unfortunately. She is hemodynamically stable, given IV fluids and Zofran and feeling much better per her report. Her labs are unremarkable including normal electrolytes, renal function. She does have significant leukocytosis, unclear significance. Given that with her recent antibiotic use and diarrheal symptoms currently we will go ahead and send an order outpatient for stool for C. difficile. Advised her to collect liquid stool at home and return it within a couple of hours. They state understanding and are comfortable with current plan of care. I will send the results to Dr. Shafer for follow-up. Did advise that they have not heard from him in 48 business hours that they should call for results. She will be discharged home in stable condition. Impression Primary Impression: Diarrhea Qualified Codes: R19.7 - Diarrhea, unspecified Disposition: HOME, SELF-CARE Condition: Stable Departure-Patient Inst. Referrals: LITZY SHAFER MD (PCP/Family) Primary Care Physician Patient Instructions: Diarrhea, Adult ED Add. Discharge Instructions: Please collect a liquid stool and return within a couple of hours after collection for testing for C. difficile. I recommend you call Dr. Shafer's office in 48 business hours if you have not heard from them about results. Increase your fluids at home as possible. Continue to use your nausea medicine as needed. Return to the emergency department for any severe concerns. Follow- up with your primary doctor for any nonemergent needs. All discharge instructions reviewed with patient and/or family. Voiced understanding. ASAEL EMERSON DO Aug 02, 2023 10:28
[2023-08-02] MEDS ORDERED: ONDANSETRON INJECTION 4 MG/2 ML (SDV) IVP ONE (10:30)
[2023-08-02] MEDS ORDERED: NS IV 500 ML 500 ML IV SCH (10:30)
[2023-08-02] MEDS ORDERED: LOPERAMIDE 2 MG CAPSULE PO ONE (10:30)
[2023-08-02 10:42] LABS: BASOPHILS % (AUTO) 0 % (0-10); EOSINOPHILS % (AUTO) 0 % (0-10); HEMATOCRIT 46 % (35-52); HEMOGLOBIN 15.2 g/dL (11.5-16.0); LYMPHOCYTES % (AUTO) 4 % (12-44); MEAN CORPUSCULAR HEMOGLOBIN 31 pg (25-34); MEAN CORPUSCULAR HGB CONC 33 g/dL (32-36); MEAN CORPUSCULAR VOLUME 94 fL (80-99); MEAN PLATELET VOLUME 9.9 fL (9.0-12.2); MONOCYTES # (AUTO) 4.5 10^3/uL (0.0-1.0); MONOCYTES % (AUTO) 20 % (0-12); NEUTROPHILS # (AUTO) 17.5 10^3/uL (1.8-7.8); NEUTROPHILS % (AUTO) 75 % (42-75); PLATELET COUNT 188 10^3/uL (130-400); WHITE BLOOD COUNT 23.3 10^3/uL (4.3-11.0)
[2023-08-02 10:50] LABS: ALBUMIN 3.8 GM/DL (3.2-4.5); CHLORIDE 103 MMOL/L (98-107); POTASSIUM 4.3 MMOL/L (3.6-5.0); SODIUM 136 MMOL/L (135-145)
[2023-08-02 10:51] LABS: CALCIUM 9.1 MG/DL (8.5-10.1)
[2023-08-02 10:52] LABS: GLUCOSE 134 MG/DL (70-105); TOTAL PROTEIN 7.1 GM/DL (6.4-8.2)
[2023-08-02 10:53] LABS: CARBON DIOXIDE 21 MMOL/L (21-32)
[2023-08-02 10:54] LABS: BILIRUBIN,TOTAL 0.5 MG/DL (0.1-1.0)
[2023-08-02 10:56] LABS: ALKALINE PHOSPHATASE 91 U/L (40-136); CREATININE SERUM 1.08 MG/DL (0.60-1.30); GFR ESTIMATED 52
[2023-08-02 10:57] LABS: BUN/CREATININE RATIO 46
--- NOTE | 2023-08-02 10:58 | Diagnostic Imaging Report ---
HISTORY: Chest pain. COMPARISON: 05/14/2023. TECHNIQUE: Frontal view of the chest. FINDINGS: Lung volumes are large, and there is moderate cardiomegaly. This is stable since the prior study. There is no pleural effusion or pneumothorax. No consolidation is seen. There is aortic atherosclerosis. Cervical spine fusion hardware is noted. IMPRESSION: 1. Chronic findings in the chest with no acute pulmonary abnormality seen. Dictated by: Dictated on workstation # [id number]
[2023-08-02 10:59] LABS: ALANINE AMINOTRANSFERASE 22 U/L (0-55); BAND NEUTROPHILS 6 %; BASOPHILS % (MANUAL) 0 %; EOSINOPHILS % (MANUAL) 0 %; LYMPHOCYTES % (MANUAL) 3 %; MONOCYTES % (MANUAL) 15 %; NEUTROPHILS % (MANUAL) 76 %
[2023-08-02 11:00] LABS: RBC MORPH NORMAL
[2023-08-02 12:09] VITALS: BP 149/58
== END 2023-08-02 12:08 | disposition home or self-care (01) ==
LOC: EDUNIT# 10:13 → ER 10:15
DX: R19.7 Diarrhea, unspecified (principal); R10.84 Generalized abdominal pain; R11.0 Nausea; Z91.040 Latex allergy status
CPT/HCPCS: 36415; 71045; 80053; 84484; 85007; 85027; 93005